=== PATIENT | male | born 1960 | race Caucasian/White ===

== ENCOUNTER → 2017-04-15 | Outpatient (CLI) | payer BC ==
[2017-04-15 10:10] LABS: CH 36.6; HCT 41.9 % (39.0-53.0); HDW 2.39; HGB 14.8 gm/dL (13.0-17.5); MCH 36.9 pg (25.0-35.0); MCHC 35.2 g/dL (31.0-37.0); MCV 104.9 fL (80.0-100.0); Macrocytosis Slight; RDW 12.8 % (11.5-15.5)
[2017-04-15 10:22] LABS: ALT 55 U/L (21-72); AST 53 U/L (17-59); Alkaline Phosphatase 76 U/L (38-126); Anion Gap 12 mmol/L; Blood Urea Nitrogen 17 mg/dL (9-20); Calcium 9.7 mg/dL (8.4-10.2); Carbon Dioxide 26 mmol/L (22-30); Chloride 103 mmol/L (98-107); Cholesterol 201 mg/dL (<200); Glucose 193 mg/dL (74-99); HDL Cholesterol 49 mg/dL (40-60); Non-African American GFR(MDRD) >60 (>60 ml/min/1.73 sqM); Potassium 4.6 mmol/L (3.5-5.1); Sodium 141 mmol/L (137-145); Total Bilirubin 1.1 mg/dL (0.2-1.3); Total Protein 7.9 g/dL (6.3-8.2); Triglycerides 212 mg/dL (<150)
[2017-04-15 14:09] LABS: Hemoglobin A1C 8.1 % (4.2-6.1)
== END | disposition home or self-care (01) ==
LOC: LABMAIN 09:31
PROVIDERS: ATTEND Internal Medicine
DX: Z00.00 Encounter for general adult medical examination without abnormal findings (principal); I25.10 Atherosclerotic heart disease of native coronary artery without angina pectoris; E11.9 Type 2 diabetes mellitus without complications; Z13.220 Encounter for screening for lipoid disorders; Z13.29 Encounter for screening for other suspected endocrine disorder
CPT/HCPCS: 36415; 80053; 80061; 83036; 84439; 84443; 85027

== ENCOUNTER 2018-08-29 20:12 | Emergency (ER) | payer BC ==
[2018-08-29 20:30] VITALS: PULSE 87
--- NOTE | 2018-08-29 21:16 | ED ---
Chest Pain HPI - General Chief Complaint: Recheck/Abnormal Lab/Rx Stated Complaint: Low BP, Back/Arm Pain Time Seen by Provider: 08/29/18 21:08 Source: patient Mode of arrival: ambulatory Limitations: no limitations - History of Present Illness Initial Comments: This patient is a 58-year-old man who reportedly had history of HI about 8 years ago, who presents with complaint of left shoulder blade, burning type pain. He states that this is been going on intermittently for probably 6 months. He saw his physician, Dr. Carrion today, and she recommended that he be seen in the emergency department. The patient states that the symptoms with his HI were different, namely he had substernal pressure pain. The patient has not had any anginal type symptoms, including no diaphoresis, dyspnea, nausea or vomiting, palpitations, lightheadedness or syncope. Patient denies leg pain or swelling. Remainder of the review of systems negative other than he states that he does have body aches daily. MD Complaint: other (Left shoulder pain) Onset/Timin -: month(s) Pain Location: other (Shoulder) Pain Radiation: none Severity: moderate Quality: other (Burning) Consistency: intermittent Improves With: nothing Worsens With: nothing Treatments Prior to Arrival: none - Related Data Home Medications Medication Instructions Recorded Confirmed Aspirin [Adult Low Dose Aspirin EC] 81 mg PO DAILY 08/29/18 08/29/18 Atorvastatin Calcium [Lipitor] 10 mg PO DAILY 08/29/18 08/29/18 Clopidogrel Bisulfate [Plavix] 75 mg PO DAILY 08/29/18 08/29/18 Ibuprofen [Motrin Ib] 800 mg PO Q6H PRN 08/29/18 08/29/18 Insulin Aspart [Novolog] See Protocol SQ TID 08/29/18 08/29/18 Insulin Glargine [Lantus] 20 unit SQ HS 08/29/18 08/29/18 Insulin Glargine [Lantus] 40 unit SQ QAM 08/29/18 08/29/18 Lisinopril [Zestril] 10 mg PO DAILY 08/29/18 08/29/18 Metoprolol Tartrate [Lopressor] 50 mg PO DAILY 08/29/18 08/29/18 Multivitamins, Thera [Multivitamin 1 tab PO DAILY 08/29/18 08/29/18 (formulary)] [place]-3 Fatty Acids/Fish Oil [Fish 1 cap PO DAILY 08/29/18 08/29/18 Oil 1,000 mg Softgel] Pantoprazole Sodium [Protonix] 40 mg PO DAILY 08/29/18 08/29/18 Allergies Allergy/AdvReac Type Severity Reaction Status Date / Time No Known Allergies Allergy Verified 08/29/18 20:30 Review of Systems ROS Statement: Those systems with pertinent positive or pertinent negative responses have been documented in the HPI. ROS Other: All systems not noted in ROS Statement are negative. Constitutional: Denies: fever, chills, weakness Respiratory: Denies: cough, dyspnea Cardiovascular: Reports: as per HPI. Denies: chest pain, palpitations, orthopnea, edema, syncope Gastrointestinal: Denies: abdominal pain, nausea, vomiting, diarrhea Musculoskeletal: Reports: as per HPI, myalgia. Denies: back pain, joint swelling, arthralgia Skin: Denies: rash Neurological: Denies: headache, weakness, numbness, paresthesias EKG Findings - EKG Results: EKG: interpreted by KARISHMA, sinus rhythm (Rate 82 bpm), normal axis, normal QRS, normal ST/T, no acute changes - HI, Pacemaker, Normal: Normal tracing: normal tracing Past Medical History Past Medical History: Coronary Artery Disease (CAD), Diabetes Mellitus, Hyperlipidemia, Hypertension, Myocardial Infarction (HI) History of Any Multi-Drug Resistant Organisms: None Reported Past Surgical History: Heart Catheterization With Stent Past Psychological History: No Psychological Hx Reported Smoking Status: Current every day smoker Past Alcohol Use History: Daily Past Drug Use History: None Reported General Exam Limitations: no limitations General appearance: alert, in no apparent distress Head exam: Present: atraumatic, normocephalic Eye exam: Present: normal appearance. Absent: scleral icterus, conjunctival injection ENT exam: Present: normal oropharynx Neck exam: Present: normal inspection, full ROM Respiratory exam: Present: normal lung sounds bilaterally. Absent: respiratory distress, wheezes, rales, rhonchi, stridor Cardiovascular Exam: Present: regular rate, normal rhythm, normal heart sounds. Absent: systolic murmur, diastolic murmur, rubs, gallop GI/Abdominal exam: Present: soft. Absent: distended, tenderness, guarding, rebound, rigid, mass Extremities exam: Present: normal inspection, normal capillary refill. Absent: pedal edema, calf tenderness Back exam: Present: normal inspection. Absent: CVA tenderness (R), CVA tenderness (L) Neurological exam: Present: alert Skin exam: Present: warm, dry, intact, normal color. Absent: rash Course Vital Signs 08/29/18 08/29/18 20:26 23:00 Temperature 98.0 F 97 F L Pulse Rate 87 87 Respiratory 20 18 Rate Blood Pressure 119/69 124/74 O2 Sat by Pulse 97 97 Oximetry Chest Pain MDM - [facility] Patient's 58-year-old man with 6 months of left scapular burning, intermittent pains. His workup here is negative. Dr. Carrion had sent him here to have initial workup, followed by admission for cardiology and probably stress test. Discussed this with the patient who at this point is refusing, stating that he wants follow up as outpatient. Discussed risks and benefits and patient still set on going home. Disposition Clinical Impression: Chest pain Disposition: Left Against Medical Advice Condition: Fair Instructions: Chest Pain (DC) Is patient prescribed a controlled substance at d/c from ED?: No Referrals: Justina Carrion MD [Primary Care Provider] - 1-2 days Angela Saavedra MD [STAFF PHYSICIAN] - 1-2 days
[2018-08-29 21:37] LABS: Basophils # (A) 0.1 k/uL (0-0.2); Basophils % (A) 1 %; Eosinophils # (A) 0.3 k/uL (0-0.7); Eosinophils % (A) 4 %; HCT 37.1 % (39.0-53.0); HGB 12.9 gm/dL (13.0-17.5); Lymphocytes # (A) 2.3 k/uL (1.0-4.8); Lymphocytes % (A) 29 %; MCH 35.8 pg (25.0-35.0); MCHC 34.7 g/dL (31.0-37.0); MCV 103.1 fL (80.0-100.0); Macrocytosis Slight; Mean Platelet Volume 7.5; Monocytes # (A) 0.5 k/uL (0-1.0); Monocytes % (A) 7 %; Neutrophils # (A) 4.4 k/uL (1.3-7.7); Neutrophils % (A) 56 %; Platelet Count 245 k/uL (150-450); RDW 12.6 % (11.5-15.5); WBC 7.9 k/uL (3.8-10.6)
--- NOTE | 2018-08-29 21:45 | XR ---
EXAMINATION TYPE: XR chest 1V portable DATE OF EXAM: 08/29/2018 COMPARISON: 01/08/2014 HISTORY: Low blood pressure. Back pain TECHNIQUE: Single frontal view of the chest is obtained. FINDINGS: There is elevated right diaphragm. Lungs are clear of consolidation. There is no heart diandra lure. I see no pleural effusion. IMPRESSION: Chronic elevated right diaphragm unchanged. This could relate to paralysis.
[2018-08-29 21:46] LABS: Albumin 4.1 g/dL (3.5-5.0); Calcium 9.3 mg/dL (8.4-10.2); Total Bilirubin 0.4 mg/dL (0.2-1.3); Total Protein 7.1 g/dL (6.3-8.2)
[2018-08-29 21:51] LABS: Creatine Kinase 177 U/L (55-170); Partial Thromboplastin Time 22.5 sec (22.0-30.0); Prothrombin Time 10.1 sec (9.0-12.0)
[2018-08-29 22:04] LABS: Creatine Kinase MB 3.6 ng/mL (0.0-2.4); Troponin I <0.012 ng/mL (0.000-0.034)
[2018-08-29 23:06] VITALS: BP 124/74; RESP 18; TEMP 97
== END 2018-08-29 23:00 | disposition left against medical advice (07) ==
LOC: EC 20:12
DX: R07.9 Chest pain, unspecified (principal); M25.512 Pain in left shoulder; I25.10 Atherosclerotic heart disease of native coronary artery without angina pectoris; E11.9 Type 2 diabetes mellitus without complications; E78.5 Hyperlipidemia, unspecified; I25.2 Old myocardial infarction; I10 Essential (primary) hypertension; F17.200 Nicotine dependence, unspecified, uncomplicated; Z95.5 Presence of coronary angioplasty implant and graft; Z79.02 Long term (current) use of antithrombotics/antiplatelets; Z79.4 Long term (current) use of insulin; Z79.82 Long term (current) use of aspirin; Z79.899 Other long term (current) drug therapy
CPT/HCPCS: 36415; 71045; 80053; 82550; 82553; 83735; 84484; 85025; 85610; 85730; 93005; 99284

== ENCOUNTER → 2018-10-17 | Outpatient (CLI) | payer BC ==
[2018-10-17 16:36] LABS: HCT 38.6 % (39.0-53.0); HGB 12.7 gm/dL (13.0-17.5); MCH 35.1 pg (25.0-35.0); MCHC 32.9 g/dL (31.0-37.0); MCV 106.5 fL (80.0-100.0); Macrocytosis Moderate; Mean Platelet Volume 6.9; Platelet Count 240 k/uL (150-450); RBC 3.62 m/uL (4.30-5.90); RDW 13.1 % (11.5-15.5); WBC 7.6 k/uL (3.8-10.6)
[2018-10-17 16:37] LABS: Anion Gap 8 mmol/L; Blood Urea Nitrogen 25 mg/dL (9-20); Carbon Dioxide 26 mmol/L (22-30); Chloride 106 mmol/L (98-107); Potassium 4.8 mmol/L (3.5-5.1); Sodium 140 mmol/L (137-145)
== END | disposition home or self-care (01) ==
LOC: LABPAT 15:34
PROVIDERS: ATTEND Internal Medicine Interventional Cardiology
DX: Z01.812 Encounter for preprocedural laboratory examination (principal); I10 Essential (primary) hypertension; E78.1 Pure hyperglyceridemia; I25.10 Atherosclerotic heart disease of native coronary artery without angina pectoris
CPT/HCPCS: 36415; 80051; 82565; 84520; 85027

== ENCOUNTER 2018-10-25 06:09 | Day surgery (SDC) | payer BC ==
[~2018-10-25 06:09] MED LIST: ALPRAZolam 0.25 MG TAB PO PRN; ASPIRIN 325 MG TAB PO ONE; NITROGLYCERIN SL TABS 0.4 MG TAB SUBLINGUAL PRN; SODIUM CHLORIDE 0.9% 1,000 ML in EMPTY BAG 1 BAG IV ONE
[2018-10-25 06:55] LABS: Glucose,Whole Blood 175 mg/dL (75-99)
[2018-10-25] MEDS ORDERED: fentaNYL (PF) 50 MCG/ML 2 ML AMP ONE (07:24)
[2018-10-25] MEDS ORDERED: VERAPAMIL 2.5 MG/ML 2 ML AMP ONE (07:24)
[2018-10-25] MEDS ORDERED: HEPARIN SODIUM 1,000 UN/ML (10ML VL) ONE (07:24)
[2018-10-25] MEDS ORDERED: LIDOCAINE 1% INJ 10MG/ML (20 ML MDV) ONE (07:24)
[2018-10-25] MEDS ORDERED: fentaNYL (PF) 50 MCG/ML 2 ML AMP IVP ONE (07:59)
[2018-10-25] MEDS ORDERED: LIDOCAINE 1% (PF) 10MG/ML VIAL SQ ONE (07:59)
[2018-10-25] MEDS ORDERED: VERAPAMIL SYRINGE (5 MG/10 ML) INTRAARTER ONE (08:02)
[2018-10-25] MEDS ORDERED: NITROGLYCERIN 1000MCG/10ML SYRINGE INTRACORON ONE (08:15)
[2018-10-25] MEDS ORDERED: BIVALIRUDIN BOLUS 250 MG/50 ML IV ONE (08:18)
[2018-10-25] MEDS ORDERED: BIVALIRUDIN 250 MG in SODIUM CHLORIDE 0.9% 50 ML IV ONE ×2 (08:19→09:10)
[2018-10-25] MEDS ORDERED: IOPAMIDOL-370 125ML BTL INJ ONE (08:19)
[2018-10-25] MEDS ORDERED: MIDAZOLAM 2 MG/2 ML VIAL ONE (08:20)
[2018-10-25] MEDS ORDERED: MIDAZOLAM 2 MG/2 ML VIAL IV ONE (08:21)
[2018-10-25] MEDS ORDERED: IOPAMIDOL-370 100ML BTL INJ ONE ×2 (09:24→09:32)
[2018-10-25] MEDS ORDERED: ZOLPIDEM 5 MG TAB PO PRN (09:48)
[2018-10-25] MEDS ORDERED: ATROPINE SULFATE 0.1 MG/ML 10ML SYRINGE IV PRN (09:48)
[2018-10-25] MEDS ORDERED: NITROGLYCERIN SL TABS 0.4 MG TAB SUBLINGUAL PRN (09:48)
[2018-10-25] MEDS ORDERED: MAG HYDROX/AL HYDROX/SIMETH 30 ML CUP PO PRN (09:48)
[2018-10-25] MEDS ORDERED: RX INFO: IV CONTRAST WAS GIVEN 1 EACH MISC MISCELLANE PRN (09:48)
[2018-10-25] MEDS ORDERED: SODIUM CHLORIDE 0.9% 1,000 ML IV SCH (10:00)
--- NOTE | 2018-10-25 10:08 | PTCA ---
PERCUTANEOUSTRANS CORORONARY ANGIOGRAPHY Mr. Key is a 58-year-old male with a known history of coronary disease who recently had an myocardial perfusion imaging, revealed evidence of lateral wall ischemia, underwent cardiac catheterization, was found to have critical stenosis involving the left circumflex. In view of that, recommendation was made regarding angioplasty and stenting. The procedures, risks and complications were discussed with the patient who is in full understanding and agreement. PROCEDURE: A 6-Bengali FR4 guiding catheter introduced in the system. After cannulating the left main, a 0.014 balanced medium weight J-wire was advanced across the lesion and positioned in the distal third obtuse marginal branch. Subsequently, a 2.25 x 12 mm Trek balloon was advanced and one inflation was done at 10 atmospheres. Following that, the balloon was removed and a whisper J-wire was advanced next to the first wire in a maritza fashion. Subsequently, attempt to advance a 2.5 x 18 mm Xience Arlene stent, 2.5 x 15 mm CR Xience stent were unsuccessful to cross the proximal stent because of the tortuosity at that point. The BMW wire was removed and a GuideLiner was advanced and in spite of the GuideLiner an attempt to advance the 2.5 x 15 mm Xience Arlene stent were unsuccessful. At that time, attempt to advance a 2.0 x 15 mm Resolute Neftali and a 2.5 x 12 mm Resolute Neftali were unsuccessful. Those stents were removed and attempt to advance a 2.5 x 8 mm Xience CR stent was unsuccessful as well. At that point, the stent was removed and a 2.75 x 8 mm NC Trek balloon was advanced and one inflation in the previous stent was performed. Subsequently, the balloon was removed and attempt to advance the 2.5 x 15 mm Xience Arlene stent were unsuccessful. That stent was removed and subsequently the wire were removed and a whisper J-wire was advanced, positioned distally. Subsequently the guidewire was exchanged over a FineCross to a Mailman after positioning the Mailman distally and removing the FineCross, another whisper J-wire was advanced next to the first one, positioned distally and a 2.5 x 50 mm Xience Arlene was advanced over the whisper J-wire and positioned distally, the Mailman wire was removed and the stent was deployed and post dilated at 14 atmospheres. After the last inflation, after appropriate wait, the balloon and the guidewire were withdrawn back in the guiding catheter. Images were obtained and repeated. Those images reveal stable successful stenting. At that point, the guiding catheter, the balloon and the guidewire were removed. The sheath was removed. Hemostasis was obtained with deployment of a TR band. There was no immediate complication. Patient is returned to his room in stable condition. Of note, the patient had no chest discomfort or significant EKG changes with the inflations. He received Angiomax per protocol. RESULTS: Successful stenting of the distal left circumflex and proximal third obtuse marginal branch with reduction of stenosis from 99% to 0%. RECOMMENDATION: Patient be continued on aspirin, Plavix, statin. The importance of dual antiplatelet treatment was discussed with the patient and his family who are in full understanding and agreement. Duration of the procedure is 1 hour, 33 minutes. ELDON / NANON: [id number] /
--- NOTE | 2018-10-25 10:08 | CC ---
CARDIAC CATHETERIZATION REPORT Mr. Key is a 58-year-old male with known history of coronary artery disease, status post stenting of left circumflex in 2010, history of hypertension, hyperlipidemia, diabetes mellitus, and a prior history of smoking, who had recently underwent a myocardial perfusion imaging that revealed evidence of lateral wall ischemia. In view of that, recommendation was made regarding cardiac catheterization. The procedure as well as the risks and the complications were discussed with the patient who is in full understanding and agreement. PROCEDURE: Patient was brought to the cardiac cath lab radiology technologist in a fasting semi-sedated state after receiving fentanyl and Benadryl and achieving moderate conscious sedated state. Using Xylocaine anesthesia in the Seldinger technique, a 6-Nigerian sheath was introduced in the right radial artery. Selective right and left coronary angiography was performed using 5- Nigerian 3.5 bend right and left Dave catheters. Multiple views of coronary artery including hemiaxial views were obtained. The 5-Nigerian right Dave catheter was used to cross the aortic valve and pressures were calculated. Following that, catheters were removed. Images were reviewed. FINDINGS: FLUOROSCOPY: There is calcification involving all the coronary arteries. LEFT MAIN: This is a large-sized vessel short in distance bifurcating left circumflex, left anterior descending artery. Left main coronary artery has no evidence of high- grade stenosis. LEFT ANTERIOR DESCENDING ARTERY: This is a large-sized vessel reaching to the apex that down in the distal third and gives rise to 2 diagonal branches. After the takeoff of the diagonal branch, there is a tubular lesion with area of stenosis up to 60% to 70%, but the vessel beyond that is small in caliber. The proximal is about 20% plaque. LEFT CIRCUMFLEX: This is a nondominant vessel giving rise to 3 obtuse marginal branches. The first one is small in caliber and has a diffuse intimal disease. The mid segment of the circumflex stented and is patent. The second obtuse marginal branch is small in caliber and has an 80% stenosis at the takeoff. After the takeoff of the second obtuse marginal branch and extending in the third obtuse marginal branch, there is an area of stenosis up to 99%. The rest of the vessel has no high-grade stenosis. RIGHT CORONARY ARTERY: This is a dominant vessel large in caliber bifurcating distally PDA and posterolateral segment and branches calcified. The distal right coronary artery has diffuse intimal disease with area of stenosis of 40% to 50% without any evidence of high-grade stenosis. LEFT VENTRICULOGRAM: Left ventriculogram is not performed. HEMODYNAMICS: There was no gradient across the aortic valve. The left ventricular end- diastolic pressure was 14 to 18 mmHg. CONCLUSION: 1. Critical stenosis involving the distal left circumflex and third obtuse marginal branch. 2. Moderate significant disease in the mid to distal left anterior descending artery in a small calcified segment. 3. Mild to moderate disease in the distal right coronary artery. RECOMMENDATION: In view of finding anatomy, I recommend proceeding with angioplasty and stenting of the left circumflex. The procedure as well as the risks and the complications were discussed with the patient who is in full understanding and agreement. MMODL / IJN: [id number] /
[2018-10-25 10:12] VITALS: BMI 26.7
[2018-10-25 11:31] LABS: Glucose,Whole Blood 188 mg/dL (75-99)
[2018-10-25] MEDS: INSULIN ASPART 100 UNIT/ML 1 ML 10 ML VIAL SQ SCH ×3 (13:00→22:04)
[2018-10-25] MEDS ORDERED: INSULIN DETEMIR 100 UNIT/ML 10 ML VIAL SQ ONE (13:17)
[2018-10-25 17:01] LABS: Glucose,Whole Blood 372 mg/dL (75-99)
[2018-10-25 20:55] LABS: Glucose,Whole Blood 291 mg/dL (75-99)
[2018-10-26 05:48] LABS: Glucose,Whole Blood 255 mg/dL (75-99)
[2018-10-26 06:57] LABS: Anion Gap 9 mmol/L; Blood Urea Nitrogen 22 mg/dL (9-20); Calcium 9.4 mg/dL (8.4-10.2); Carbon Dioxide 24 mmol/L (22-30); Chloride 102 mmol/L (98-107); Glucose 228 mg/dL (74-99); Potassium 4.8 mmol/L (3.5-5.1); Sodium 135 mmol/L (137-145)
[2018-10-26] MEDS: INSULIN ASPART 100 UNIT/ML 1 ML 10 ML VIAL SQ SCH (06:59)
[2018-10-26 07:26] VITALS: BP 167/79; PULSE 99; RESP 16; TEMP 98
[2018-10-26] MEDS ORDERED: PANTOPRAZOLE 40 MG TABLET PO SCH (07:30)
--- NOTE | 2018-10-26 08:51 | PN ---
PROGRESS NOTE Mr. Key is a 58-year-old male with known history of coronary artery disease who presented with an abnormal myocardial perfusion imaging, underwent cardiac catheterization, was found to have significant stenosis involving the left circumflex underwent stenting of that vessel. He is doing well this morning, ambulating without difficulty. Denying any chest pain. No dizziness. No palpitation. No nausea. He continues to be on aspirin 81 mg daily, Lipitor 80 mg daily, Plavix 75 mg daily, insulin, Zestril 10 mg daily, metoprolol tartrate 50 mg daily. PHYSICAL EXAMINATION: Blood pressure 149/70 with the heart rate in the 90s. LUNGS: Clear. HEART: Regular rate and rhythm. S1, S2. No S3. No rub. ABDOMEN: Soft, nontender. EXTREMITIES: No edema. Right radial pulse intact. LAB DATA: Lab data revealed BUN and creatinine 22 and 0.75. Potassium 4.8. EKG revealed no acute changes. IMPRESSION: 1. Coronary artery disease, status post stenting of the left circumflex, stable. 2. Hypertension. 3. Hyperlipidemia. 4. Diabetes mellitus. RECOMMENDATION: Patient should be able to be discharged home today and followed as an outpatient. MMODL / IJN: [id number] /
[2018-10-26] MEDS ORDERED: METOPROLOL TARTRATE 50 MG TAB PO SCH ×2 (09:00)
[2018-10-26] MEDS ORDERED: CLOPIDOGREL 75 MG TAB PO SCH (09:00)
[2018-10-26] MEDS ORDERED: INSULIN DETEMIR 100 UNIT/ML 10 ML VIAL SQ SCH ×2 (09:00→21:00)
[2018-10-26] MEDS ORDERED: ASPIRIN 81 MG PO SCH (09:00)
[2018-10-26] MEDS ORDERED: LISINOPRIL 10 MG TAB PO SCH (09:00)
[2018-10-26] MEDS ORDERED: ATORVASTATIN 80 MG TAB PO SCH (09:00)
== END 2018-10-26 10:05 | disposition home or self-care (01) ==
LOC: CATHCVL 06:09 → 3SCARD 09:30 → CATHCVL 10-26 10:05
PROVIDERS: ATTEND Internal Medicine Interventional Cardiology
DX: I25.10 Atherosclerotic heart disease of native coronary artery without angina pectoris (principal); R94.39 Abnormal result of other cardiovascular function study; E11.9 Type 2 diabetes mellitus without complications; I10 Essential (primary) hypertension; E78.2 Mixed hyperlipidemia; I25.2 Old myocardial infarction; Z95.5 Presence of coronary angioplasty implant and graft; Z79.02 Long term (current) use of antithrombotics/antiplatelets; Z79.82 Long term (current) use of aspirin; Z79.4 Long term (current) use of insulin; Z79.899 Other long term (current) drug therapy; Z72.0 Tobacco use
CPT/HCPCS: 93458; 85347; 80048; C9600; C9601; C1769 ×5; C1887 ×3; C1894; C1725 ×2; C1874 ×2; J2250; J3010; J0583; J2001; Q9967 ×2

== ENCOUNTER → 2019-01-19 | Outpatient (CLI) | payer BC ==
[2019-01-19 18:02] LABS: Albumin 4.7 g/dL (3.80-4.90); Albumin/Globulin Ratio 1.88 (1.60-3.17); Anion Gap 5.9 mmol/L (4.00-12.00); Calcium 9.3 mg/dL (8.7-10.3); Carbon Dioxide 27.1 mmol/L (21.6-31.8); Globulin 2.5 g/dL (1.6-3.3); LDL Cholesterol,Calculated 32.4 mg/dL (0.0-131.0); Potassium 4.5 mmol/L (3.5-5.5); Total Bilirubin 0.6 mg/dL (0.3-1.2); Total Protein 7.2 g/dL (6.2-8.2); VLDL Calculation 57.6 mg/dL (5.00-40.00)
== END ==
LOC: LABWHC1 08:24
PROVIDERS: ATTEND Nurse Practitioner Adult Health
DX: E78.2 Mixed hyperlipidemia (principal); I25.10 Atherosclerotic heart disease of native coronary artery without angina pectoris
CPT/HCPCS: 36415; 80053; 80061

== ENCOUNTER → 2019-04-26 | Outpatient (CLI) | payer BC ==
--- NOTE | 2019-04-26 16:53 | XR ---
EXAMINATION TYPE: XR chest 2V DATE OF EXAM: 04/26/2019 COMPARISON: 08/29/2018 TECHNIQUE: PA and lateral views submitted. HISTORY: Cough FINDINGS: Persistent elevated right hemidiaphragm with no pneumothorax or overt failure. Heart size stable. Sub segmental changes right lung base stable. Hypertrophic and degenerative change of the spine. IMPRESSION: 1. Right basilar linear atelectasis favored over pneumonia given the right hemidiaphragm elevation. C orrelate for phrenic nerve palsy.
== END ==
LOC: RADXRYALE 14:27
PROVIDERS: ATTEND Internal Medicine
DX: J98.11 Atelectasis (principal); R91.8 Other nonspecific abnormal finding of lung field
CPT/HCPCS: 71046

== ENCOUNTER → 2020-04-20 | Outpatient (CLI) | payer BC ==
--- NOTE | 2020-04-20 08:52 | XR ---
EXAMINATION TYPE: XR shoulder complete RT DATE OF EXAM: 04/20/2020 COMPARISON: NONE HISTORY: Pain TECHNIQUE: Three views are submitted. FINDINGS: The osseous structures are intact. There is no acute fracture or dislocation. There is narrowing of the AC joint. Vague density adjacent to the superior glenoid. Nonspecific. IMPRESSION: 1. AC joint arthropathy. Vague density adjacent to the superior margin of the glenoid could be relate d to chronic labral injury. Recommend follow-up MRI.
[2020-04-20 10:53] LABS: Basophils # (A) 0.1 k/uL (0-0.2); Basophils % (A) 1 %; Eosinophils # (A) 0.3 k/uL (0-0.7); Eosinophils % (A) 2 %; HCT 42.5 % (39.0-53.0); Lymphocytes # (A) 2.3 k/uL (1.0-4.8); Lymphocytes % (A) 21 %; MCH 33.6 pg (25.0-35.0); MCHC 32.8 g/dL (31.0-37.0); MCV 102.3 fL (80.0-100.0); Macrocytosis Slight; Mean Platelet Volume 7.5; Monocytes # (A) 0.5 k/uL (0-1.0); Monocytes % (A) 5 %; Neutrophils # (A) 7.4 k/uL (1.3-7.7); Neutrophils % (A) 70 %; Platelet Count 255 k/uL (150-450); RBC 4.15 m/uL (4.30-5.90); RDW 12.5 % (11.5-15.5); WBC 10.7 k/uL (3.8-10.6)
[2020-04-20 12:04] LABS: ALT 20 U/L (4-49); AST 32 U/L (17-59); African American GFR (CKD) >90 (>60 ml/min/1.73 sqM); Albumin 4.6 g/dL (3.5-5.0); Alkaline Phosphatase 71 U/L (38-126); Anion Gap 12 mmol/L; Blood Urea Nitrogen 22 mg/dL (9-20); Calcium 9.5 mg/dL (8.4-10.2); Carbon Dioxide 27 mmol/L (22-30); Chloride 98 mmol/L (98-107); Cholesterol 181 mg/dL (<200); Glucose 130 mg/dL (74-99); HDL Cholesterol 44 mg/dL (40-60); Non-African American GFR(CKD) >90 (>60 ml/min/1.73 sqM); Potassium 4.2 mmol/L (3.5-5.1); Sodium 137 mmol/L (137-145); Total Bilirubin 0.9 mg/dL (0.2-1.3); Total Protein 7.9 g/dL (6.3-8.2); Triglycerides 427 mg/dL (<150)
[2020-04-20 18:59] LABS: Urine Creatinine 423.6 mg/dL
[2020-04-20 20:31] LABS: Hemoglobin A1C 9.1 % (4.0-6.0)
== END | disposition home or self-care (01) ==
LOC: RADXRMAIN 08:26
PROVIDERS: ATTEND Internal Medicine
DX: M12.811 Other specific arthropathies, not elsewhere classified, right shoulder (principal); R93.7 Abnormal findings on diagnostic imaging of other parts of musculoskeletal system; I10 Essential (primary) hypertension; E78.00 Pure hypercholesterolemia, unspecified; E11.9 Type 2 diabetes mellitus without complications
CPT/HCPCS: 36415; 80053; 80061; 82043; 82570; 83036; 85025

== ENCOUNTER 2020-06-07 13:45 | Emergency (ER) | payer BC ==
[2020-06-07 13:49] VITALS: TEMP 98.2
[2020-06-07] MEDS ORDERED: LIDOCAINE 5% PATCH TOPICAL STA (14:21)
[2020-06-07] MEDS ORDERED: CYCLOBENZAPRINE 10 MG TAB PO STA (14:21)
[2020-06-07] MEDS ORDERED: KETOROLAC 30 MG/ML 1 ML VIAL IM STA (14:21)
--- NOTE | 2020-06-07 14:26 | ED ---
Back Pain [facility] - General Chief Complaint: Back Pain/Injury Stated Complaint: Back pain Time Seen by Provider: 06/07/20 14:04 Source: patient Limitations: no limitations - History of Present Illness Initial Comments: Patient is a 52-year-old male presenting to emergency Department with a chief complaint of low back pain. Patient states approximately one month ago he "tweaked his back" while he was at work. Patient states he was moving a large, heavy object in a twisting motion which caused a sudden onset of his back pain. Patient states the pain has been coming on over the last month, however it has increased over the last week. Patient states most of the pain is located to the left paraspinal region of the lower back and is radiating along the posterior aspect of the left lower extremity to the popliteal region. Patient states she has seen who performed an x-ray of his lower back and told patient that he has "disc problems and arthritis". Patient states he is scheduled to have an MRI in 4 days. Patient states that pain has been increasing severity and is not able to ambulate due to the pain. Patient states the pain is alleviated and a recliner or laying position. He denies any saddle anesthesia, urinary retention with overflow incontinence or bowel incontinence. Denies sudden unexplained weight loss, night sweats. - Related Data Home Medications Medication Instructions Recorded Confirmed Aspirin [Adult Low Dose Aspirin EC] 81 mg PO DAILY 08/29/18 10/25/18 Clopidogrel Bisulfate [Plavix] 75 mg PO DAILY 08/29/18 10/25/18 Insulin Aspart [NovoLOG] See Protocol SQ TID 08/29/18 10/25/18 Insulin Glargine [Lantus] 20 unit SQ HS 08/29/18 10/25/18 Insulin Glargine [Lantus] 40 unit SQ QAM 08/29/18 10/25/18 Lisinopril [Zestril] 10 mg PO DAILY 08/29/18 10/25/18 Multivitamins, Thera [Multivitamin 1 tab PO DAILY 08/29/18 10/25/18 (formulary)] [place]-3 Fatty Acids/Fish Oil [Fish 1 cap PO DAILY 08/29/18 10/25/18 Oil 1,000 mg Softgel] Pantoprazole Sodium [Protonix] 40 mg PO DAILY 08/29/18 10/25/18 Previous Rx's Medication Instructions Recorded Atorvastatin [Lipitor] 80 mg PO DAILY #90 tab 10/26/18 Metoprolol Tartrate [Lopressor] 50 mg PO BID #180 tab 10/26/18 Nitroglycerin Sl Tabs [Nitrostat] 0.4 mg SUBLINGUAL Q5M PRN #25 tab 10/26/18 Cyclobenzaprine [Flexeril] 10 mg PO TID PRN #15 tab 06/07/20 Lidocaine 5% Patch [Lidoderm] 1 patch TOPICAL DAILY #6 patch 06/07/20 Allergies Allergy/AdvReac Type Severity Reaction Status Date / Time No Known Allergies Allergy Verified 06/07/20 13:50 Review of Systems ROS Statement: Those systems with pertinent positive or pertinent negative responses have been documented in the HPI. ROS Other: All systems not noted in ROS Statement are negative. Past Medical History Past Medical History: Coronary Artery Disease (CAD), Diabetes Mellitus, Hyperlipidemia, Hypertension, Myocardial Infarction (VT) Last Myocardial Infarction Date:: 2009 History of Any Multi-Drug Resistant Organisms: None Reported Past Surgical History: Heart Catheterization With Stent Additional Past Surgical History / Comment(s): ANAL FISSURE REPAIR. COLONOSCOPY Past Anesthesia/Blood Transfusion Reactions: No Reported Reaction Date of Last Stent Placement:: 2009 Past Psychological History: No Psychological Hx Reported Smoking Status: Current every day smoker Past Alcohol Use History: Occasional Past Drug Use History: None Reported - Past Family History Father Family Medical History: Cancer Additional Family Medical History / Comment(s): PANCREATIC General Exam Limitations: no limitations General appearance: alert, in no apparent distress Head exam: Present: atraumatic, normocephalic, normal inspection Eye exam: Present: normal appearance, PERRL, EOMI Pupils: Present: normal accommodation ENT exam: Present: normal exam, normal oropharynx, mucous membranes moist, TM's normal bilaterally, normal external ear exam Neck exam: Present: normal inspection, full ROM. Absent: tenderness Respiratory exam: Present: normal lung sounds bilaterally. Absent: respiratory distress, wheezes, rales Cardiovascular Exam: Present: regular rate, normal rhythm, normal heart sounds GI/Abdominal exam: Present: soft. Absent: distended, tenderness, guarding Extremities exam: Present: normal inspection, full ROM, normal capillary refill. Absent: tenderness Back exam: Present: normal inspection, full ROM, tenderness, paraspinal tenderness (Left paraspinal tenderness along the posterior aspect of the left lower extremity to popliteal region.), other (Positive leg raise test in the left lower extremity.). Absent: CVA tenderness (R), CVA tenderness (L), muscle spasm, vertebral tenderness Neurological exam: Present: alert, oriented X3 Psychiatric exam: Present: normal affect, normal mood Skin exam: Present: warm, dry, intact, normal color Course Vital Signs 06/07/20 06/07/20 13:47 14:30 Temperature 98.2 F Pulse Rate 91 76 Respiratory 16 18 Rate Blood Pressure 142/86 147/87 O2 Sat by Pulse 97 97 Oximetry Medical Decision Making - Medical Decision Making Patient is a 52-year-old male presenting to emergency Department with chief complaint of back pain. Patient is currently seeing an software quality specialist for his back pain is scheduled to have an MRI in 4 days. On exam patient has sciatica type symptoms going down his left lower extremity. No cauda equina. No red flags. Patient given Toradol, Flexeril and a Lidoderm patch. Reevaluation patient reports improvement of symptoms. Patient to be discharged with a Tylenol 3 starter pack Flexeril and Lidoderm prescription. Patient advised not to drive or operative heavy machinery when taking the Tylenol 3 and Flexeril. Strict return parameters were thoroughly discussed the patient was understanding and agreeable. Case discussed with physician. Disposition Clinical Impression: Mechanical back pain, Strain of lumbar region Disposition: HOME SELF-CARE Condition: Stable Instructions (If sedation given, give patient instructions): Acute Low Back P ain (ED) Additional Instructions: Take prescribed medication as directed. Do not drive or operate heavy machinery when taking the medication. Follow-up with the software quality specialist. Return to emergency department if symptoms worsen. Prescriptions: Cyclobenzaprine [Flexeril] 10 mg PO TID PRN #15 tab PRN Reason: Muscle Spasm Lidocaine 5% Patch [Lidoderm] 1 patch TOPICAL DAILY #6 patch Is patient prescribed a controlled substance at d/c from ED?: No Referrals: Justina Carrion MD [Primary Care Provider] - 1-2 days Time of Disposition: 15:22
[2020-06-07 14:31] VITALS: RESP 18
[2020-06-07] MEDS ORDERED: ACET/COD 300 MG/30 MG STARTER PACK 6 TAB BTL PO STA (15:20)
[2020-06-07 15:39] VITALS: BP 160/86; PULSE 66
== END 2020-06-07 15:40 | disposition home or self-care (01) ==
LOC: EC 13:45
DX: S39.012A Strain of muscle, fascia and tendon of lower back, initial encounter (principal); M54.32 Sciatica, left side; E11.9 Type 2 diabetes mellitus without complications; I25.10 Atherosclerotic heart disease of native coronary artery without angina pectoris; I10 Essential (primary) hypertension; M19.90 Unspecified osteoarthritis, unspecified site; I25.2 Old myocardial infarction; F17.200 Nicotine dependence, unspecified, uncomplicated; Z79.4 Long term (current) use of insulin; Z79.82 Long term (current) use of aspirin; Z79.01 Long term (current) use of anticoagulants; Z79.899 Other long term (current) drug therapy; X50.0XXA Overexertion from strenuous movement or load, initial encounter; Y99.0 Civilian activity done for income or pay
CPT/HCPCS: 96372; 99283; J1885

== ENCOUNTER 2020-11-06 16:02 | Emergency (ER) | payer BC ==
[2020-11-06 16:12] VITALS: TEMP 99
[2020-11-06 16:20] VITALS: RESP 18
[2020-11-06] MEDS ORDERED: HYDROcodone/APAP 5-325MG 1 EACH TAB PO STA (16:53)
--- NOTE | 2020-11-06 16:58 | ED ---
General Adult HPI - General Chief complaint: Neck Pain/Injury Stated complaint: Neck Pain Time Seen by Provider: 11/06/20 16:27 Source: patient Mode of arrival: wheelchair Limitations: no limitations - History of Present Illness Initial comments: Dictation was produced using [employer] dictation software. please excuse any grammatical, word or spelling errors. This patient was cared for during a federal and state declared state of emergency secondary to Covid 19 Chief Complaint: 60-year-old male presents with acute on chronic neck pain History of Present Illness: 60-year-old male who presents today with acute on chronic back pain. Patient initially injured his neck playing football in high school. Since then he's been experiencing neck pain often. He does follow up with Dr. Covarrubias who evaluates him for his pain. MRI performed in May of this year showing degenerative cervical spinal disease along with disc protrusion at C4 to C5. Patient hasn't been given any pain medication that has been adequate according to him. He does take tramadol however does not really provide him any relief. States that he is taking his 's Masterson with symptom relief. Patient has a follow-up appointment with spinal surgeon Dr. Gilman seen in the near future. Patient denies any neurologic symptoms below the neck. Denies any ataxia. No numbness or paresthesias to the arms or legs pain is worse whenever he moves his neck up and down. Denies any trauma The ROS documented in this emergency department record has been reviewed and confirmed by me. Those systems with pertinent positive or negative responses have been documented in the HPI. All other systems are other negative and/or noncontributory. PHYSICAL EXAM: General Impression: Alert and oriented x3, not in acute distress HEENT: Normocephalic atraumatic, extra-ocular movements intact, pupils equal and reactive to light bilaterally, mucous membranes moist. Cardiovascular: Heart regular rate and rhythm Chest: Able to complete full sentences, no retractions, no tachypnea Abdomen: abdomen soft, non-tender, non-distended, no organomegaly Musculoskeletal: Pulses present and equal in all extremities, no peripheral edema Motor: no focal deficits noted Neurological: CN II-XII grossly intact, no focal motor or sensory deficits noted, no clonus, no ataxia Skin: Intact with no visualized rashes Psych: Normal affect and mood ED course: 60-year-old male presents with acute on chronic back pain. As upon arrival are within acceptable limits. Patient does not have any red like symptoms. Presents today with his MRI results from May. [place] results show degenerative cervical spinal disease along with disc protrusion at C4 to C5 level. Physical examination is benign. Patient's reason for coming to the emergency department is for some symptom relief. Have appropriate outpatient follow-up. - Related Data Home Medications Medication Instructions Recorded Confirmed Aspirin [Adult Low Dose Aspirin EC] 81 mg PO DAILY 08/29/18 10/25/18 Clopidogrel Bisulfate [Plavix] 75 mg PO DAILY 08/29/18 10/25/18 Insulin Aspart [NovoLOG] See Protocol SQ TID 08/29/18 10/25/18 Insulin Glargine [Lantus] 20 unit SQ HS 08/29/18 10/25/18 Insulin Glargine [Lantus] 40 unit SQ QAM 08/29/18 10/25/18 Lisinopril [Zestril] 10 mg PO DAILY 08/29/18 10/25/18 Multivitamins, Thera [Multivitamin 1 tab PO DAILY 08/29/18 10/25/18 (formulary)] [place]-3 Fatty Acids/Fish Oil [Fish 1 cap PO DAILY 08/29/18 10/25/18 Oil 1,000 mg Softgel] Pantoprazole Sodium [Protonix] 40 mg PO DAILY 08/29/18 10/25/18 Previous Rx's Medication Instructions Recorded Atorvastatin [Lipitor] 80 mg PO DAILY #90 tab 10/26/18 Metoprolol Tartrate [Lopressor] 50 mg PO BID #180 tab 10/26/18 Nitroglycerin Sl Tabs [Nitrostat] 0.4 mg SUBLINGUAL Q5M PRN #25 tab 10/26/18 Cyclobenzaprine [Flexeril] 10 mg PO TID PRN #15 tab 06/07/20 Lidocaine 5% Patch [Lidoderm] 1 patch TOPICAL DAILY #6 patch 06/07/20 HYDROcodone/APAP 5-325MG [Masterson 1 tab PO Q6HR PRN 3 Days #12 tab 11/06/20 5-325] Allergies Allergy/AdvReac Type Severity Reaction Status Date / Time No Known Allergies Allergy Verified 06/07/20 13:50 Review of Systems ROS Statement: Those systems with pertinent positive or pertinent negative responses have been documented in the HPI. ROS Other: All systems not noted in ROS Statement are negative. Past Medical History Past Medical History: Coronary Artery Disease (CAD), Diabetes Mellitus, Hyperlipidemia, Hypertension, Myocardial Infarction ([place]) Last Myocardial Infarction Date:: 2009 History of Any Multi-Drug Resistant Organisms: None Reported Past Surgical History: Heart Catheterization With Stent Additional Past Surgical History / Comment(s): ANAL FISSURE REPAIR. COLONOSCOPY Past Anesthesia/Blood Transfusion Reactions: No Reported Reaction Date of Last Stent Placement:: 2009 Past Psychological History: No Psychological Hx Reported Smoking Status: Current every day smoker Past Alcohol Use History: Occasional Past Drug Use History: None Reported - Past Family History Father Family Medical History: Cancer Additional Family Medical History / Comment(s): PANCREATIC General Exam Limitations: no limitations Course Vital Signs 11/06/20 11/06/20 16:06 16:19 Temperature 99.0 F Pulse Rate 94 93 Respiratory 16 18 Rate Blood Pressure 83/53 106/65 O2 Sat by Pulse 98 97 Oximetry Disposition Clinical Impression: Neck pain Disposition: HOME SELF-CARE Condition: Good Instructions (If sedation given, give patient instructions): Cervical Strain (ED) Prescriptions: HYDROcodone/APAP 5-325MG [Masterson 5-325] 1 tab PO Q6HR PRN 3 Days #12 tab PRN Reason: Severe Pain Is patient prescribed a controlled substance at d/c from ED?: Yes If prescribed controlled substance>3 days was MAPS reviewed?: Prescribed <3 Days Referrals: Herbert Funk DO [Doctor of Osteopathic Medicine] - 1-2 days Time of Disposition: 16:57
[2020-11-06 16:59] VITALS: BP 105/65; PULSE 80
== END 2020-11-06 17:00 | disposition home or self-care (01) ==
LOC: EC 16:02
DX: M50.30 Other cervical disc degeneration, unspecified cervical region (principal); M50.221 Other cervical disc displacement at C4-C5 level; G89.29 Other chronic pain; I10 Essential (primary) hypertension; E11.9 Type 2 diabetes mellitus without complications; I25.10 Atherosclerotic heart disease of native coronary artery without angina pectoris; I25.2 Old myocardial infarction; F17.200 Nicotine dependence, unspecified, uncomplicated; Z79.02 Long term (current) use of antithrombotics/antiplatelets; Z79.82 Long term (current) use of aspirin; Z79.4 Long term (current) use of insulin; Z79.899 Other long term (current) drug therapy
CPT/HCPCS: 99283

== ENCOUNTER → 2020-12-01 | Outpatient (CLI) | payer BC ==
--- NOTE | 2020-12-02 00:57 | CT ---
EXAMINATION TYPE: CT cervical spine wo con DATE OF EXAM: 12/01/2020 COMPARISON: None HISTORY: Neck and thoracic pain x43 years CT DLP: 517.36 mGycm Automated exposure control for dose reduction was used. Images were obtained from the skull base to T1 vertebra without contrast. There is mild straightening of the cervical spine. There is moderate narrowing with spur formation fr om C5 to the T3 vertebra. There is osteosclerosis. There is no compression fracture. There is mild th e level cervical hypertrophic facet arthropathy. There is spurring of the endplates. There is probabl y some mild spinal stenosis at C4-5. There is posterior spurring and T1-T2 mild impingement on the sp inal canal. The skull base is intact. There is normal aeration of the mastoid sinuses. There is some dense left vertebral artery calcification. IMPRESSION: Moderate multilevel spondylotic changes starting at C5 level. There is probably some mild multilevel bony spinal stenosis. No fracture seen.
--- NOTE | 2020-12-02 01:00 | CT ---
EXAMINATION TYPE: CT thoracic spine wo con DATE OF EXAM: 12/01/2020 COMPARISON: None HISTORY: Neck and thoracic pain x43 years CT DLP: 1434.9 mGycm Automated exposure control for dose reduction was used. Images were obtained from the level of T1-L1 vertebra without contrast. Thoracic vertebra have normal alignment. There is multilevel mild degenerative disc space narrowing w ith spurring of the endplates. There is no thoracic compression fracture. There is no thoracic parasp inal mass. Posterior elements are intact. I see no bony destructive process. IMPRESSION: Multilevel ordinary spondylotic changes in the thoracic spine. No fracture seen.
== END | disposition home or self-care (01) ==
LOC: RADCTMAIN 17:05
PROVIDERS: ATTEND Orthopaedic Surgery
DX: M43.02 Spondylolysis, cervical region (principal); M43.04 Spondylolysis, thoracic region
CPT/HCPCS: 72125; 72128

== ENCOUNTER → 2021-02-10 | Outpatient (CLI) | payer BC ==
[2021-02-10 14:11] VITALS: BP 133/79; PULSE 101; RESP 16; TEMP 98.2
--- NOTE | 2021-02-10 14:41 | P.PAINCN ---
History of Present Illness - Reason for Consult Consult date: 02/10/21 - History of Present Illness This is 60 years old male with a chronic history of severe neck pain, started most than 30 years ago, after sports related injury, the intensity of the pain increased over the last 1 year, and currently the neck pain is constant and increases with any activity interference with the quality of life, and also he has numbness and tingling sensation in the upper extremity, but currently his neck pain is bothering him the most, patient tried conservative treatment which is failed, he tried medication management without any significant benefit(NSAID , Ultram ,and [place] ) patient denies any motor or sensory deficit, denies any fever or night sweats. He denies any change in the bowel movement or urination, he reported that the intensity of the pain interfere with his ability to work, and is interfere between 6/10 increased to 10 over 10 with any activity. Past Medical History Past Medical History: Coronary Artery Disease (CAD), Diabetes Mellitus, H yperlipidemia, Hypertension, Myocardial Infarction ([place]) Last Myocardial Infarction Date:: 2009 History of Any Multi-Drug Resistant Organisms: None Reported Past Surgical History: Heart Catheterization With Stent Additional Past Surgical History / Comment(s): ANAL FISSURE REPAIR. COLONOSCOPY Past Anesthesia/Blood Transfusion Reactions: No Reported Reaction Date of Last Stent Placement:: 2009 Smoking Status: Current every day smoker - Past Family History Father Family Medical History: Cancer Additional Family Medical History / Comment(s): PANCREATIC Medications and Allergies Home Medications Medication Instructions Recorded Confirmed Type Aspirin [Adult Low Dose Aspirin EC] 81 mg PO DAILY 08/29/18 02/10/21 History Insulin Aspart [NovoLOG] See Protocol SQ TID 08/29/18 02/10/21 History Insulin Glargine [Lantus] 20 unit SQ HS 08/29/18 02/10/21 History Insulin Glargine [Lantus] 40 unit SQ QAM 08/29/18 02/10/21 History Lisinopril [Zestril] 10 mg PO DAILY 08/29/18 02/10/21 History Multivitamins, Thera [Multivitamin 1 tab PO DAILY 08/29/18 02/10/21 History (formulary)] Free [place]-3 Fatty Acids/Fish Oil [Fish 1 cap PO DAILY 08/29/18 02/10/21 History Oil 1,000 mg Softgel] Pantoprazole Sodium [Protonix] 40 mg PO DAILY 08/29/18 02/10/21 History Atorvastatin [Lipitor] 80 mg PO DAILY #90 tab 10/26/18 02/10/21 Rx Metoprolol Tartrate [Lopressor] 50 mg PO BID #180 tab 10/26/18 02/10/21 Rx Cyclobenzaprine [Flexeril] 10 mg PO TID PRN #15 tab 06/07/20 02/10/21 Rx Allergies Allergy/AdvReac Type Severity Reaction Status Date / Time No Known Allergies Allergy Verified 06/07/20 13:50 Physical Exam Vitals: Vital Signs Temp Pulse Resp BP Pulse Ox 02/10/21 14:08 98.2 F 101 H 16 133/79 97 Intake and Output 02/09/21 02/10/21 02/10/21 22:59 06:59 14:59 Other: Weight 83.915 kg Physical Examinations : -Constitutiona : Cooperative , not in acute distress . -HEENT : nech : supple , no Lymphadenopathy , normal thyroid size . : eyes : no ptosis , no icterus, no photophobia . - neurologic : Cranial nerve II to XII intact , no focal neurological deffecit . -psychatric : alert , oriented X 3 , appropriate affect , intact judgment and insight . -Lymphatic : no Lymphadenopathy . - musculoskeltal : Cervical Spine motor stregnth in the deltoid and biceps, normal right side , normal Left side motor stregnth biceps and the wrist extensors normal right side ,normal left side . motor stregnth in the triceps muscle . normal Right side , normal Left side deep tendon reflexes normal at the biceps , normal at Brachioradialis , normal at triceps. cervical facet loading test: Positive Bilaterally Spurling test= positive Right , positive left. Neck distraction test= positive Right , positive left. Bee sign= positive right, positive left . Abduction and lateral rotation of the right shoulder associated with pain Lumber spine moter stegnth lower extremities ,thigh and legs 5/5 Right side , 5/5 Left side Results Comments: Computed tomography scan of the cervical spine= there is multilevel cervical facet hypertrophy and multilevel cervical spinal stenosis and multilevel cervical degenerative disc disease. Computed tomography scan of the thoracic spine multilevel spondylitic changes of the thoracic spine Assessment and Plan Plan: Assessment and plan=1-cervical spondylosis with cervical facet arthropathy 2-cervical degenerative disc disease. 3-cervical spinal stenosis. 4-cervical radiculopathy. Patient will be good candidate for diagnostic medial branch block cervical area at C4, C5, C6 bilaterally x2 and possible RFA (Patient had extensive cervical spondylosis but the insurance would not approve the with more than 3 levels of diagnostic medial branch block bilaterally, for this reason I chose to do C4-C5 and C5-C6 ) In the future patient needs to have a cervical epidural steroid injection to target his radicular symptoms. Patient could benefit from Neurontin 100 mg every 8 hours dispense 90 with 1 refill Patient could benefit from [place] 5/325 every 8 hours when necessary dispense 60 Patient signed the narcotic agreement. Urine drug screen ordered today Narcotic side effects including but not limited to risk of addiction and tolerance, and constipation discussed with the patient, and he Agreed with the preceding. Time with Patient: Greater than 30 PQRS Measure Charge Sheet Measure #130: Documentation of Current Meds in Medical Chart: Patient's medications documented in chart Measure #226: Tobacco Use: Screen & Cessation Intervention: Pt not a tobacco user Measure #111: Pneumonia Vaccination: Pneumococcal vaccine NOT administered or previously given Measure #47: Advance Care Plan: Advance care planning discussed & documented, pt chose/unable to give Measure #412: Opioid Treatment Agreement: No documentation of signed opioid treatment agreement Measure #408: Opioid Therapy Follow-up Evaluation: Patient had NO f/u eval minimum every 3 months during opioid therapy Measure #317: Preventitive Care & Scrn High Bld Press & F/U: Normal blood pressure, f/u not required Measure #128: Body Mass Index (BMI) Screening & Follow-up: BMI documented ABOVE normal parameters - f/u documented Measure #131: Pain Assessment & Follow-up: Pain positive & plan documented, Follow-up scheduled Measure #431: Unhealthy Alcohol Use Preventative Care & Scrn: Patient not identified as an unhealthy alcohol user PQRS Narrative: Smoking Status Former smoker Blood Pressure 133/79 Pain Intensity [Neck] 3 Scale Used Numeric (1 - 10) Hx Alcohol Use ([facility]) Yes Home Medications: Ambulatory Orders Aspirin [Adult Low Dose Aspirin EC] 81 mg PO DAILY 08/29/18 Insulin Aspart [NovoLOG] See Protocol SQ TID 08/29/18 Insulin Glargine [Lantus] 20 unit SQ HS 08/29/18 Insulin Glargine [Lantus] 40 unit SQ QAM 08/29/18 Lisinopril [Zestril] 10 mg PO DAILY 08/29/18 Multivitamins, Thera [Multivitamin (formulary)] 1 tab PO DAILY 08/29/18 Free [place]-3 Fatty Acids/Fish Oil [Fish Oil 1,000 mg Softgel] 1 cap PO DAILY 08/29/18 Pantoprazole Sodium [Protonix] 40 mg PO DAILY 08/29/18 Atorvastatin [Lipitor] 80 mg PO DAILY #90 tab 10/26/18 Metoprolol Tartrate [Lopressor] 50 mg PO BID #180 tab 10/26/18 Cyclobenzaprine [Flexeril] 10 mg PO TID PRN #15 tab 06/07/20
== END ==
LOC: PNWHC3 13:52
PROVIDERS: ATTEND Specialist
DX: M47.22 Other spondylosis with radiculopathy, cervical region (principal); M50.10 Cervical disc disorder with radiculopathy, unspecified cervical region; M48.02 Spinal stenosis, cervical region; I25.10 Atherosclerotic heart disease of native coronary artery without angina pectoris; E11.9 Type 2 diabetes mellitus without complications; E78.5 Hyperlipidemia, unspecified; I10 Essential (primary) hypertension; I25.2 Old myocardial infarction; F17.200 Nicotine dependence, unspecified, uncomplicated; Z79.4 Long term (current) use of insulin; Z79.82 Long term (current) use of aspirin; Z95.5 Presence of coronary angioplasty implant and graft
CPT/HCPCS: 80307; 99212; G0482

== ENCOUNTER 2021-03-05 06:41 | Day surgery (SDC) | payer BC ==
[2021-03-02 09:29] VITALS: BMI 25.7
[2021-03-05 07:00] VITALS: TEMP 98.4
[2021-03-05 07:12] LABS: Glucose,Whole Blood 56 mg/dL (75-99)
[2021-03-05] MEDS ORDERED: DEXTROSE 50% SYRINGE 50 ML IVP ONE (07:14)
[2021-03-05] MEDS ORDERED: LACTATED RINGERS 1,000 ML IV ONE ×2 (07:14)
[2021-03-05 07:28] LABS: Glucose,Whole Blood 105 mg/dL (75-99)
[2021-03-05] MEDS ORDERED: fentaNYL (PF) 50 MCG/ML 2 ML AMP ONE (08:00)
[2021-03-05] MEDS ORDERED: DEXAMETHASONE SOD PHOSPHATE 10 MG/ML 1 ML VIAL ONE (08:00)
[2021-03-05] MEDS ORDERED: IOPAMIDOL M200 10 ML VIAL ONE (08:00)
[2021-03-05] MEDS ORDERED: ROPIVACAINE 5MG/ML 20ML VIAL ONE (08:00)
[2021-03-05] MEDS ORDERED: MIDAZOLAM 2 MG/2 ML VIAL ONE (08:00)
--- NOTE | 2021-03-05 08:18 | P.PCN ---
Date of Procedure: 03/05/21 Description of Procedure: PREOPERATIVE DIAGNOSIS : Cervicalgia with Facet Arthropathy without myelopathy POSTOPERATIVE DIAGNOSIS: same PROCEDURE: first Diagnostic cervical medial branch block with fluoroscopy at C4 C5 C6 [bilateral] which covers facets C4-5 and C5-6 ANESTHESIA: Local anesthetic; moderate IV sedation with Versed and fentanyl Fluoroscopy was used for the procedure and images were saved in the radiology portion of the chart. Surgeon: Masoud Pleitez MD PROCEDURE INDICATION: Cervical pain without radiculopathy, not responsive to conservative management. PROCEDURE DESCRIPTION: the patient was seen and identified in the preop holding area , risks and benefits and possible complications of the procedure and alternatives were discussed with the patient, and the patient agreed to proceed with the procedure and signed the consent . IV was started , vital signs were monitored during the procedure and fluoroscopy was used to maximize the benefit and accuracy of the needle placement, and sedation was given to decrease patient anxiety. Patient was taken to the procedure room and placed in prone position. An AP fluoroscopic cath lab radiological technologist film was taken to identify the dens, the C4, C5, C6 vertebral bodies, and the waists of the articular pillars at the aforementioned levels. A lateral view was utilized to highlight the waists of the articular pillars at these levels. The skin was prepped with chlorhexidine and draped in the usual sterile fashion. The skin and subcutaneous tissue overlying the above levels were anesthetized using a 25-gauge 1-1/2-inch needle with 1% preservative free lidocaine for a total volume of 1 ml per level. An AP fluoroscopic cath lab radiological technologist film was taken to identify the dens, the C4 C5 C6 vertebral bodies, and the center of the centroid at the aforementioned levels. A lateral view was utilized to highlight the centroids at these levels. The skin was prepped with chlorhexidine and draped in the usual sterile fashion. The skin and subcutaneous tissue overlying the above levels were anesthetized using a 25-gauge 1-1/2-inch needle with 1% preservative free lidocaine for a total volume of 1 ml per level. An 25-gauge 3.5" Quinke needle was advanced, coaxially, in the lateral view until the needle tip was noted to slide into the center of the centroid. The needles were advanced until bony contact was felt and the tip of the Quinke needle was confirmed to be in the center of the articular pillars at the aforementioned levels. The needle positions were confirmed with AP and lateral fluoroscopic views. 0.2 mL of Isovue 200 per level was injected which revealed no vascular uptake and after negative aspiration, 0.5 mL of ropivacaine along with dexamethasone 10 mg was injected at each level and the needle subsequently removed . Total of 40 mg kenalog used. At the end of the procedure and the needles were removed and a bandage applied after the skin was cleaned. The patient was taken to recovery room in stable condition and monitors in the recovery room for 20-30 minutes and discharged home in stable condition after discharge criteria met and patient will follow up in clinic in 2 weeks EBL: Minimal COMPLICATION: None.
[2021-03-05] MEDS ORDERED: IV FLUID CONTINUATION 1,000 ML IV ONE (08:26)
[2021-03-05 08:28] LABS: Glucose,Whole Blood 60 mg/dL (75-99)
[2021-03-05 08:32] VITALS: BP 191/93; PULSE 71; RESP 12
[2021-03-05 08:49] LABS: Glucose,Whole Blood 75 mg/dL (75-99)
--- NOTE | 2021-03-05 09:45 | FL ---
EXAMINATION TYPE: FL guided pain mgmt statistic DATE OF EXAM: 03/05/2021 HISTORY: Fluoroscopy time 12 seconds of fluoroscopy provided. IMPRESSION: 1. Fluoroscopy time.
== END 2021-03-05 09:04 | disposition home or self-care (01) ==
LOC: ORPAIN 06:41
PROVIDERS: ATTEND Anesthesiology
DX: M54.2 Cervicalgia (principal); I10 Essential (primary) hypertension; I25.10 Atherosclerotic heart disease of native coronary artery without angina pectoris; E78.5 Hyperlipidemia, unspecified; E11.9 Type 2 diabetes mellitus without complications; M19.90 Unspecified osteoarthritis, unspecified site; K21.9 Gastro-esophageal reflux disease without esophagitis; Z79.82 Long term (current) use of aspirin; Z79.4 Long term (current) use of insulin; Z79.899 Other long term (current) drug therapy
CPT/HCPCS: 64490; 64491; J2250; J1100; J3010; Q9966; J2795

== ENCOUNTER 2021-04-02 07:16 | Day surgery (SDC) | payer BC ==
[2021-03-30 15:35] VITALS: BMI 25.7
[2021-04-02 07:31] VITALS: TEMP 97.3
[2021-04-02] MEDS ORDERED: LACTATED RINGERS 1,000 ML IV ONE (07:37)
[2021-04-02 07:38] LABS: Glucose,Whole Blood 66 mg/dL (75-99)
[2021-04-02] MEDS ORDERED: MIDAZOLAM 2 MG/2 ML VIAL ONE (08:18)
[2021-04-02] MEDS ORDERED: DEXAMETHASONE SOD PHOSPHATE 10 MG/ML 1 ML VIAL ONE (08:18)
[2021-04-02] MEDS ORDERED: IOPAMIDOL M200 10 ML VIAL ONE (08:18)
[2021-04-02] MEDS ORDERED: ROPIVACAINE 5MG/ML 20ML VIAL ONE (08:18)
[2021-04-02] MEDS ORDERED: LIDOCAINE 1% INJ 10MG/ML (20 ML MDV) ONE (08:18)
[2021-04-02] MEDS ORDERED: fentaNYL (PF) 50 MCG/ML 2 ML AMP ONE (08:18)
--- NOTE | 2021-04-02 08:35 | P.PCN ---
Date of Procedure: 04/02/21 Description of Procedure: PREOPERATIVE DIAGNOSIS : Cervicalgia with Facet Arthropathy without myelopathy POSTOPERATIVE DIAGNOSIS: same PROCEDURE: first Diagnostic cervical medial branch block with fluoroscopy at C4 C5 C6 [bilateral] which covers facets C4-5 and C5-6 #2 ANESTHESIA: Local anesthetic; moderate IV sedation with anesthesia team Fluoroscopy was used for the procedure and images were saved in the radiology portion of the chart. Surgeon: Masoud Pleitez MD PROCEDURE INDICATION: Cervical pain without radiculopathy, not responsive to conservative management. PROCEDURE DESCRIPTION: the patient was seen and identified in the preop holding area , risks and benefits and possible complications of the procedure and alternatives were discussed with the patient, and the patient agreed to proceed with the procedure and signed the consent . IV was started , vital signs were monitored during the procedure and fluoroscopy was used to maximize the benefit and accuracy of the needle placement, and sedation was given to decrease patient anxiety. Patient was taken to the procedure room and placed in prone position. An AP fluoroscopic contaminated land consultant film was taken to identify the dens, the C4, C5, C6 vertebral bodies, and the waists of the articular pillars at the aforementioned levels. A lateral view was utilized to highlight the waists of the articular pillars at these levels. The skin was prepped with chlorhexidine and draped in the usual sterile fashion. The skin and subcutaneous tissue overlying the above levels were anesthetized using a 25-gauge 1-1/2-inch needle with 1% preservative free lidocaine for a total volume of 1 ml per level. An AP fluoroscopic contaminated land consultant film was taken to identify the dens, the C4 C5 C6 vertebral bodies, and the center of the centroid at the aforementioned levels. A lateral view was utilized to highlight the centroids at these levels. The skin was prepped with chlorhexidine and draped in the usual sterile fashion. The skin and subcutaneous tissue overlying the above levels were anesthetized using a 25-gauge 1-1/2-inch needle with 1% preservative free lidocaine for a total volume of 1 ml per level. An 25-gauge 3.5" Quinke needle was advanced, coaxially, in the lateral view until the needle tip was noted to slide into the center of the centroid. The needles were advanced until bony contact was felt and the tip of the Quinke needle was confirmed to be in the center of the articular pillars at the aforementioned levels. The needle positions were confirmed with AP and lateral fluoroscopic views. 0.2 mL of Isovue 200 per level was injected which revealed no vascular uptake and after negative aspiration, 0.5 mL of ropivacaine along with dexamethasone 10 mg was injected at each level and the needle subsequently removed . Total of 10 mg dexamethasone used. At the end of the procedure and the needles were removed and a bandage applied after the skin was cleaned. The patient was taken to recovery room in stable condition and monitors in the recovery room for 20-30 minutes and discharged home in stable condition after discharge criteria met and patient will follow up in clinic in 2 weeks EBL: Minimal COMPLICATION: None.
[2021-04-02] MEDS ORDERED: IV FLUID CONTINUATION 1,000 ML IV ONE (08:40)
[2021-04-02 08:49] LABS: Glucose,Whole Blood 54 mg/dL (75-99)
[2021-04-02 09:01] VITALS: BP 153/88; PULSE 77; RESP 16
[2021-04-02 09:06] LABS: Glucose,Whole Blood 83 mg/dL (75-99)
--- NOTE | 2021-04-02 10:12 | FL ---
Fluoroscopy HISTORY: Pain 34 seconds fluoroscopy time supplied to the referring clinician. 6 intraoperative C-arm images docum ent the procedure. See dictated report from anesthesia.
== END 2021-04-02 09:23 | disposition home or self-care (01) ==
LOC: ORPAIN 07:16
PROVIDERS: ATTEND Anesthesiology
DX: M47.812 Spondylosis without myelopathy or radiculopathy, cervical region (principal); I25.10 Atherosclerotic heart disease of native coronary artery without angina pectoris; I10 Essential (primary) hypertension; E78.5 Hyperlipidemia, unspecified; I25.2 Old myocardial infarction; Z95.5 Presence of coronary angioplasty implant and graft; E11.9 Type 2 diabetes mellitus without complications; K21.9 Gastro-esophageal reflux disease without esophagitis; Z79.82 Long term (current) use of aspirin; Z79.4 Long term (current) use of insulin; Z79.891 Long term (current) use of opiate analgesic; Z79.899 Other long term (current) drug therapy
CPT/HCPCS: 64490; 64491; J2250; J1100; J2001; J3010; Q9966; J2795

== ENCOUNTER → 2021-04-14 | Outpatient (CLI) | payer BC ==
[2021-04-14 12:04] VITALS: BP 166/88; PULSE 82; RESP 18; TEMP 98.5
--- NOTE | 2021-04-14 12:31 | P.PN ---
Subjective Progress Note Date: 04/14/21 This is follow visit for this 61 years old male with a chronic history of severe neck pain, is diagnosed with cervical spondylosis with cervical facet arthropathy and cervical degenerative disc disease, status post diagnostic medial branch block cervical area patient reported that he get 100% improvement of his neck pain after the first diagnostic medial branch block and he got more than 80% improvement of his neck pain after the second diagnostic medial branch block, the pain relief was for short-term only and he continued to have severe neck pain, denies any motor or sensory deficit he denies any fever or night sweats with then he continued use [place] 5/325 when necessary, urine drug screen showed that he is positive for ETOH, and [place] Objective - Vital Signs Vital signs: Vital Signs Temp 98.5 F 04/14/21 12:02 Pulse 82 04/14/21 12:02 Resp 18 04/14/21 12:02 BP 166/88 04/14/21 12:02 Pulse Ox 97 04/14/21 12:02 Intake & Output 04/13/21 04/14/21 04/14/21 18:59 06:59 18:59 Weight 83.915 kg - Exam Physical Examinations : -Constitutiona : Cooperative , not in acute distress . -HEENT : nech : supple , no Lymphadenopathy , normal thyroid size . : eyes : no ptosis , no icterus, no photophobia . - neurologic : Cranial nerve II to XII intact , no focal ne urological deffecit . -psychatric : alert , oriented X 3 , appropriate affect , intact judgment and insight . -Lymphatic : no Lymphadenopathy . - musculoskeltal : Cervical Spine motor stregnth in the deltoid and biceps, normal right side , normal Left side motor stregnth biceps and the wrist extensors normal right side ,normal left side . motor stregnth in the triceps muscle . normal Right side , normal Left side deep tendon reflexes normal at the biceps , normal at Brachioradialis , normal at triceps. cervical facet loading test: Positive Bilaterally Spurling test= positive Right , positive left. Neck distraction test= positive Right , positive left. Bee sign= positive right, positive left . Abduction and lateral rotation of the right shoulder associated with pain Lumber spine moter stegnth lower extremities ,thigh and legs 5/5 Right side , 5/5 Left side Assessment and Plan Plan: Assessment and plan=1-cervical spondylosis with cervical facet arthropathy. 2-cervical degenerative disc disease. Had excellent pain relief after 2 diagnostic medial branch block cervical area ,100% Alief after the first diagnostic medial branch block and 80% after the second one, it will be good candidate to refill for medial branch cervical area at C4, C5, C6 bilaterally. 3-prescription refill for [place] 5/325 dispense 60 with 1 refill given Patient already signed a narcotic agreement. The risk and benefit of opioid Discussed with the patient and explained to him, explained to him that the risk of drowsiness sleepiness and he cannot drive the car and drink or take opioid He cannot operate heavy machinery while he is on.opioid, discussed with the patient the risk of addiction and tolerance of the opiate,, patient will discontinue using Neurontin because he did not benefit from it - PQRS measures = - Patient's medications are documented in the chart. -Tobacco use is negative and counseling.Given. -Patient's has not received pneumococcal vaccine. -Advanced care planning discussed, patient not eligible. -Opiate contract signed. -Pain positive and follow-up visit/procedure is scheduled. -Patient's blood pressure measured [166/88 ] , and documented in the record ,and patient will follow up with the primary care. -Patient's weight was measured and body mass index [ 25.8 ] above the,normal limits and counseling was done. and patient instructed to follow-up with the primary care physician. -Patient was identified as an unhealthy alcohol user Time with Patient: Less than 30
== END ==
LOC: PNWHC3 11:52
PROVIDERS: ATTEND Specialist
DX: M47.812 Spondylosis without myelopathy or radiculopathy, cervical region (principal); M50.30 Other cervical disc degeneration, unspecified cervical region; Z87.891 Personal history of nicotine dependence
CPT/HCPCS: 99211

== ENCOUNTER → 2021-05-07 | Day surgery (SDC) | payer BC ==
[2021-05-06 11:27] VITALS: BMI 25.7
[~2021-05-07] MED LIST changes: -ALPRAZolam 0.25 MG TAB PO PRN; -ASPIRIN 325 MG TAB PO ONE; +LACTATED RINGERS 1,000 ML IV SCH; +LIDOCAINE 1% (10MG/ML) FOR IV START INTRADERMA ONE; -NITROGLYCERIN SL TABS 0.4 MG TAB SUBLINGUAL PRN; -SODIUM CHLORIDE 0.9% 1,000 ML in EMPTY BAG 1 BAG IV ONE
[2021-05-07 07:39] VITALS: BP 135/78; PULSE 74; RESP 16; TEMP 97.4
[2021-05-07 07:47] LABS: Glucose,Whole Blood 300 mg/dL (75-99)
--- NOTE | 2021-05-07 08:02 | P.PN ---
Progress Note - Text Progress Note Date: 05/07/21 this is 61 years old male, with history of severe neck pain ,he is diagnosed with cervical degenerative disc disease, cervical spondylosis with cervical facet arthropathy, and he today to have radiofrequency thermocoagulation of the medial branch cervical area at C4,C5, C6 bilaterally, in the preoperative holding area we found out that the patient has fasting blood sugar is 300 , and there is concern about blood sugar will be increased or if we do the procedure because we have to give steroid, for this reason a discussed with the patient the option of rescheduling the procedure, and will do the RFA once the blood sugar under control
== END ==
LOC: ORPAIN 07:05
PROVIDERS: ATTEND Specialist
DX: M50.30 Other cervical disc degeneration, unspecified cervical region (principal); M47.812 Spondylosis without myelopathy or radiculopathy, cervical region; Z53.8 Procedure and treatment not carried out for other reasons

== ENCOUNTER → 2021-06-09 | Outpatient (CLI) | payer BC ==
[2021-06-09 14:05] VITALS: BP 174/87; PULSE 79; RESP 18; TEMP 98.1
--- NOTE | 2021-06-14 12:17 | P.PAINPG ---
Subjective Progress Note Date: 06/09/21 This is follow visit for this 61 years old male with a chronic history of severe neck pain, is diagnosed with cervical spondylosis with cervical facet arthropathy and cervical degenerative disc disease, status post diagnostic medial branch block cervical area patient reported that he get 100% improvement of his neck pain after the first diagnostic medial branch block and he got more than 80% improvement of his neck pain after the second diagnostic medial branch block, the pain relief was for short-term only and he continued to have severe neck pain, denies any motor or sensory deficit he denies any fever or night sweats with then he continued use [place] 5/325 when necessary, urine drug screen showed that he is positive for ETOH, and [place]. He was scheduled to have a bilateral C4-C6 radiofrequency ablation, however when he came into the preoperative area his blood sugar significantly elevated. Since then he has not had the procedure. he feels his blood sugar is better under control and he is happy to proceed with the procedure. He did mention some type of surgical technique for his neck that he saw online which I encouraged him to talk to Dr. Funk about. I told him that he might not even need surgery if the ablations go well. His medications have been doing well for him, he uses [place] sparingly and would like to the back on the gabapentin that he had in January. - Exam Physical Examinations : -Constitutiona : Cooperative , not in acute distress . -HEENT : nech : supple , no Lymphadenopathy , normal thyroid size . : eyes : no ptosis , no icterus, no photophobia . - neurologic : Cranial nerve II to XII intact , no focal neurological deffecit . -psychatric : alert , oriented X 3 , appropriate affect , intact judgment and insight . -Lymphatic : no Lymphadenopathy . - musculoskeltal : Cervical Spine motor stregnth in the deltoid and biceps, normal right side , normal Left side motor stregnth biceps and the wrist extensors normal right side ,normal left side . motor stregnth in the triceps muscle . normal Right side , normal Left side deep tendon reflexes normal at the biceps , normal at Brachioradialis , normal at triceps. cervical facet loading test: Positive Bilaterally Spurling test= positive Right , positive left. Neck distraction test= positive Right , positive left. Bee sign= positive right, positive left . Abduction and lateral rotation of the right shoulder associated with pain Lumber spine moter stegnth lower extremities ,thigh and legs 5/5 Right side , 5/5 Left side Assessment and Plan Plan: Assessment and plan=1-cervical spondylosis with cervical facet arthropathy. 2-cervical degenerative disc disease. Had excellent pain relief after 2 diagnostic medial branch block cervical area ,100% Alief after the first diagnostic medial branch block and 80% after the second one, it will be good candidate to refill for medial branch cervical area at C4, C5, C6 3-prescription refill for [place] 5/325 dispense 60 and gabapentin 300 mg TID Patient already signed a narcotic agreement. The risk and benefit of opioid Discussed with the patient and explained to him, explained to him that the risk of drowsiness sleepiness and he cannot drive the car and drink or take opioid He cannot operate heavy machinery while he is on.opioid, discussed with the patient the risk of addiction and tolerance of the opiate,, patient will discontinue using Neurontin because he did not benefit from it. We will do urinary drug screen for him on the next visit. - PQRS measures = - Patient's medications are documented in the chart. -Tobacco use is negative and counseling.Given. -Patient's has not received pneumococcal vaccine. -Advanced care planning discussed, patient not eligible. -Opiate contract signed. -Pain positive and follow-up visit/procedure is scheduled. -Patient's blood pressure measured [166/88 ] , and documented in the record ,and patient will follow up with the primary care. -Patient's weight was measured and body mass index [ 25.8 ] above the,normal limits and counseling was done. and patient instructed to follow-up with the primary care physician. -Patient was identified as an unhealthy alcohol user I have spent 24 minutes on review of the records, review of the imaging available, [id number] interaction with the patient, medication management, follow-up care coordination and record creation. PQRS Measure Charge Sheet PQRS Narrative: Smoking Status Former smoker Hx Alcohol Use (MH) Yes Home Medications: Ambulatory Orders Aspirin [Adult Low Dose Aspirin EC] 81 mg PO DAILY 08/29/18 Insulin Aspart [NovoLOG] See Protocol SQ AC-TID 08/29/18 Insulin Glargine [Lantus] 15 unit SQ HS 08/29/18 Insulin Glargine [Lantus] 30 unit SQ QAM 08/29/18 Lisinopril [Zestril] 10 mg PO DAILY 08/29/18 Multivitamins, Thera [Multivitamin (formulary)] 1 tab PO DAILY 08/29/18 [place]-3 Fatty Acids/Fish Oil [Fish Oil 1,000 mg Softgel] 1 cap PO DAILY 08/29/18 Pantoprazole Sodium [Protonix] 40 mg PO DAILY 08/29/18 Atorvastatin [Lipitor] 80 mg PO DAILY #90 tab 10/26/18 Metoprolol Tartrate [Lopressor] 50 mg PO DAILY 03/02/21 Vitamin D3(Dose Unknown) 2 tab PO DAILY 03/02/21 Gabapentin [Neurontin] 100 mg PO BID 30 Days #90 cap 06/09/21 HYDROcodone/APAP 5-325MG [[place] 5-325] 1 tab PO Q12HR PRN 30 Days #60 tab 06/09/21 Controlled Substance Measures - Controlled Substance Measures Is patient prescribed a controlled substance at discharge?: Yes When asked, does pt state using other controlled substances?: No If prescribed controlled substance>3 days was MAPS reviewed?: Yes If Rx opioid, was Start Talking consent form obtained?: Yes If opioid is for acute pain is fill amount 7 days or less?: No Was information provided regarding opioid addiction?: Yes
== END ==
LOC: PNWHC3 13:57
PROVIDERS: ATTEND Anesthesiology
DX: M47.812 Spondylosis without myelopathy or radiculopathy, cervical region (principal); M50.30 Other cervical disc degeneration, unspecified cervical region; Z87.891 Personal history of nicotine dependence
CPT/HCPCS: 99211

== ENCOUNTER 2021-06-11 07:01 | Day surgery (SDC) | payer BC ==
[2021-06-08 15:43] VITALS: BMI 25.7
--- NOTE | 2021-06-09 14:15 | P.PAINPG ---
Subjective Progress Note Date: 06/09/21 This is follow visit for this 61 years old male with a chronic history of severe neck pain, is diagnosed with cervical spondylosis with cervical facet arthropathy and cervical degenerative disc disease, status post diagnostic medial branch block cervical area patient reported that he get 100% improvement of his neck pain after the first diagnostic medial branch block and he got more than 80% improvement of his neck pain after the second diagnostic medial branch block, the pain relief was for short-term only and he continued to have severe neck pain, denies any motor or sensory deficit he denies any fever or night sweats with then he continued use [place] 5/325 when necessary, urine drug screen showed that he is positive for ETOH, and [place]. He was scheduled to have a bilateral C4-C6 radiofrequency ablation, however when he came into the preoperative area his blood sugar significantly elevated. Since then he has not had the procedure. he feels his blood sugar is better under control and he is happy to proceed with the procedure. He did mention some type of surgical technique for his neck that he saw online which I encouraged him to talk to Dr. Funk about. I told him that he might not even need surgery if the ablations go well. His medications have been doing well for him, he uses [place] sparingly and would like to the back on the gabapentin that he had in January. - Exam Physical Examinations : -Constitutiona : Cooperative , not in acute distress . -HEENT : nech : supple , no Lymphadenopathy , normal thyroid size . : eyes : no ptosis , no icterus, no photophobia . - neurologic : Cranial nerve II to XII intact , no focal neurological deffecit . -psychatric : alert , oriented X 3 , appropriate affect , intact judgment and insight . -Lymphatic : no Lymphadenopathy . - musculoskeltal : Cervical Spine motor stregnth in the deltoid and biceps, normal right side , normal Left side motor stregnth biceps and the wrist extensors normal right side ,normal left side . motor stregnth in the triceps muscle . normal Right side , normal Left side deep tendon reflexes normal at the biceps , normal at Brachioradialis , normal at triceps. cervical facet loading test: Positive Bilaterally Spurling test= positive Right , positive left. Neck distraction test= positive Right , positive left. Bee sign= positive right, positive left . Abduction and lateral rotation of the right shoulder associated with pain Lumber spine moter stegnth lower extremities ,thigh and legs 5/5 Right side , 5/5 Left side Assessment and Plan Plan: Assessment and plan=1-cervical spondylosis with cervical facet arthropathy. 2-cervical degenerative disc disease. Had excellent pain relief after 2 diagnostic medial branch block cervical area ,100% Alief after the first diagnostic medial branch block and 80% after the second one, it will be good candidate to refill for medial branch cervical area at C4, C5, C6 3-prescription refill for [place] 5/325 dispense 60 and gabapentin 300 mg TID Patient already signed a narcotic agreement. The risk and benefit of opioid Discussed with the patient and explained to him, explained to him that the risk of drowsiness sleepiness and he cannot drive the car and drink or take opioid He cannot operate heavy machinery while he is on.opioid, discussed with the patient the risk of addiction and tolerance of the opiate,, patient will discontinue using Neurontin because he did not benefit from it. We will do urinary drug screen for him on the next visit. - PQRS measures = - Patient's medications are documented in the chart. -Tobacco use is negative and counseling.Given. -Patient's has not received pneumococcal vaccine. -Advanced care planning discussed, patient not eligible. -Opiate contract signed. -Pain positive and follow-up visit/procedure is scheduled. -Patient's blood pressure measured [166/88 ] , and documented in the record ,and patient will follow up with the primary care. -Patient's weight was measured and body mass index [ 25.8 ] above the,normal limits and counseling was done. and patient instructed to follow-up with the primary care physician. -Patient was identified as an unhealthy alcohol user I have spent 24 minutes on review of the records, review of the imaging available, [id number] interaction with the patient, medication management, follow-up care coordination and record creation. PQRS Measure Charge Sheet PQRS Narrative: Smoking Status Former smoker Hx Alcohol Use (MH) Yes Home Medications: Ambulatory Orders Aspirin [Adult Low Dose Aspirin EC] 81 mg PO DAILY 08/29/18 Insulin Aspart [NovoLOG] See Protocol SQ AC-TID 08/29/18 Insulin Glargine [Lantus] 15 unit SQ HS 08/29/18 Insulin Glargine [Lantus] 30 unit SQ QAM 08/29/18 Lisinopril [Zestril] 10 mg PO DAILY 08/29/18 Multivitamins, Thera [Multivitamin (formulary)] 1 tab PO DAILY 08/29/18 [place]-3 Fatty Acids/Fish Oil [Fish Oil 1,000 mg Softgel] 1 cap PO DAILY 08/29/18 Pantoprazole Sodium [Protonix] 40 mg PO DAILY 08/29/18 Atorvastatin [Lipitor] 80 mg PO DAILY #90 tab 10/26/18 Metoprolol Tartrate [Lopressor] 50 mg PO DAILY 03/02/21 Vitamin D3(Dose Unknown) 2 tab PO DAILY 03/02/21 Gabapentin [Neurontin] 100 mg PO BID 30 Days #90 cap 06/09/21 HYDROcodone/APAP 5-325MG [[place] 5-325] 1 tab PO Q12HR PRN 30 Days #60 tab 06/09/21 Controlled Substance Measures - Controlled Substance Measures Is patient prescribed a controlled substance at discharge?: Yes When asked, does pt state using other controlled substances?: No If prescribed controlled substance>3 days was MAPS reviewed?: Yes If Rx opioid, was Start Talking consent form obtained?: Yes If opioid is for acute pain is fill amount 7 days or less?: No Was information provided regarding opioid addiction?: Yes
[2021-06-11] MEDS ORDERED: LACTATED RINGERS 1,000 ML IV ONE (07:15)
[2021-06-11 07:32] LABS: Glucose,Whole Blood 136 mg/dL (75-99)
[2021-06-11 07:34] VITALS: TEMP 97.6
[2021-06-11] MEDS ORDERED: LIDOCAINE 1% INJ 10MG/ML (20 ML MDV) ONE (07:43)
[2021-06-11] MEDS ORDERED: fentaNYL (PF) 50 MCG/ML 2 ML AMP ONE (07:43)
[2021-06-11] MEDS ORDERED: ROPIVACAINE 5MG/ML 20ML VIAL ONE (07:43)
[2021-06-11] MEDS ORDERED: MIDAZOLAM 2 MG/2 ML VIAL ONE (07:43)
--- NOTE | 2021-06-11 08:12 | P.PCN ---
Date of Procedure: 06/11/21 Description of Procedure: PREOPERATIVE DIAGNOSIS: Cervicalgia POSTOPERATIVE DIAGNOSIS: Same Surgeon: Masoud Pleitez M.D. PROCEDURE PERFORMED: Cervical Medial Branch Radiofrequency Ablation, at the following levels: C4-C5, C5-C6 right side ANESTHESIA: Lidocaine 1% 5 mL, Monitored anesthesia care with anesthesia team ESTIMATED BLOOD LOSS: Minimal Fluoroscopy was used for the procedure and images were saved in the radiology portion of the chart. PROCEDURE INDICATION: The patient with neck pain secondary to cervical facet arthropathy who had more than 50% relief of pain with previous diagnostic lumbar medial branch block X2. PROCEDURE DESCRIPTION / TECHNIQUE: The patient was seen and identified in the preoperative area. Risks, benefits, complications, including but not limited to risk of infection ,bleeding , allergic reactions to the medications and incomplete pain relief , and alternatives were discussed with the patient, the patient agreed to proceed with the procedure and signed the consent. IV was started. The operative site was marked. Patient was taken to the OR and time out was completed. The patient was placed in the prone position on the procedure table. The lumbar area was prepped and draped in the usual sterile fashion. . Vital signs were closely monitored during the procedure .IV sedation was used during the procedure to decrease patients anxiety. An AP fluoroscopic clerical support film was taken to identify the dens, the C4 C5 C6 vertebral bodies, and the waists of the articular pillars at the aforementioned levels [] levels. A pillar (caudal tilt) view was utilized to highlight the waists of the articular pillars at these levels. The skin was prepped with chlorhexidine and draped in the usual sterile fashion. The skin and subcutaneous tissue overlying the above levels were anesthetized using a 25-gauge 1-1/2-inch needle with 1% preservative free lidocaine for a total volume of 1 ml per level. An 18-gauge and 100 mm SMK needle with a 10 mm active tip was advanced, coaxially, in the pillar view until the needle tip was noted to slide into the groove of the articular pillar. A true lateral view was obtained and the needle tips were advanced to cover to the , lateral aspect of the articular pillar at right C4 C5 C6, for corresponding medial branch ablation. The needles were advanced until bony contact was felt and the tip of the SMK needle was confirmed to be in the groove of the right waist of the articular pillars at the aforementioned levels. The needle positions were confirmed with AP and lateral fluoroscopic views. Motor stimulation was then performed at 2 Hz and up to 2V with only paraspinal muscle contraction noted at each level and no upper extremity stimulation. At this point, after negative aspiration, Bupivacaine 0.5% x 0.5 mL was injected at each level prior to radiofrequency ablation. Lesioning was then carried out at 85 degrees Celsius times 90 seconds with 2 cycles per level. Following lesioning the needles were removed. COMPLICATIONS: No acute complications. DISPOSITION / PLANS: The patient was placed in a supine position and transferred to the recovery area in a stable condition for observation and was discharged from the recovery room after meeting discharge criteria. Home discharge instructions given to the patient by the staff. The patient will follow up in clinic in 4 weeks.
[2021-06-11] MEDS ORDERED: IV FLUID CONTINUATION 1,000 ML IV ONE (08:18)
[2021-06-11 08:48] VITALS: BP 164/77; PULSE 74; RESP 16
--- NOTE | 2021-06-11 09:05 | FL ---
Fluoroscopy HISTORY: Pain 27 seconds fluoroscopy time supplied to the referring clinician. 1 intraoperative C-arm images docum ent the procedure. See dictated report from anesthesia.
== END 2021-06-11 08:50 | disposition home or self-care (01) ==
LOC: ORPAIN 07:01
PROVIDERS: ATTEND Anesthesiology
DX: M54.2 Cervicalgia (principal); I25.10 Atherosclerotic heart disease of native coronary artery without angina pectoris; I10 Essential (primary) hypertension; I25.2 Old myocardial infarction; E78.5 Hyperlipidemia, unspecified; Z95.5 Presence of coronary angioplasty implant and graft; Z87.891 Personal history of nicotine dependence; E11.9 Type 2 diabetes mellitus without complications; M19.90 Unspecified osteoarthritis, unspecified site; K21.9 Gastro-esophageal reflux disease without esophagitis
CPT/HCPCS: 64633; 64634; J2250; J2001; J3010; J2795

== ENCOUNTER → 2021-06-11 | Outpatient (CLI) | payer BC ==
[2021-06-11 15:52] LABS: HCT 36.9 % (39.6-50.0); HGB 12.7 g/dL (13.0-17.0); MCH 36.2 pg (27.0-32.0); MCHC 34.4 g/dL (32.0-37.0); MCV 105.1 fL (80.0-97.0); Mean Platelet Volume 9.5 fL (9.5-12.2); Platelet Count 229 X 10*3/uL (140-440); RBC 3.51 X 10*6/uL (4.40-5.60); RDW 12.3 % (11.5-14.5); WBC 6.23 X 10*3/uL (4.50-10.00)
[2021-06-11 17:25] LABS: Basophils # (A) 0.04 X 10*3/uL (0.00-0.10); Basophils % (A) 0.6 %; Eosinophils # (A) 0.12 X 10*3/uL (0.04-0.35); Eosinophils % (A) 1.9 %; Lymphocytes % (A) 25.7 %; Monocytes # (A) 0.55 X 10*3/uL (0.20-1.00); Monocytes % (A) 8.8 %; Neutrophils # (A) 3.91 X 10*3/uL (1.80-7.70); Neutrophils % (A) 62.8 %
[2021-06-11 18:28] LABS: Hemoglobin A1C 8.1 % (4.0-6.0)
[2021-06-11 20:42] LABS: C-Peptide 0.09 ng/mL (0.81-3.85)
[2021-06-11 21:32] LABS: African American GFR (CKD) 95.1 (60.0-200.0); Albumin 4.2 g/dL (3.80-4.90); Albumin/Globulin Ratio 1.62 (1.60-3.17); Anion Gap 7.7 mmol/L (4.00-12.00); Carbon Dioxide 25.3 mmol/L (21.6-31.8); Chol/HDL Ratio 4.55; Globulin 2.6 g/dL (1.6-3.3); Potassium 4.5 mmol/L (3.5-5.5); Total Bilirubin 0.3 mg/dL (0.2-1.2); Total Protein 6.8 g/dL (6.2-8.2)
== END | disposition home or self-care (01) ==
LOC: LABWHC1 08:53
PROVIDERS: ATTEND Internal Medicine
DX: Z00.01 Encounter for general adult medical examination with abnormal findings (principal); E78.00 Pure hypercholesterolemia, unspecified; E11.9 Type 2 diabetes mellitus without complications; I10 Essential (primary) hypertension
CPT/HCPCS: 36415; 80053; 80061; 83036; 83721; 84681; 85025

== ENCOUNTER 2021-07-16 06:28 | Day surgery (SDC) | payer BC ==
[2021-07-13 17:44] VITALS: BMI 25.7
[~2021-07-16 06:28] MED LIST changes: -LIDOCAINE 1% (10MG/ML) FOR IV START INTRADERMA ONE; +LIDOCAINE 1% (10MG/ML) FOR IV START INTRADERMA PRN
[2021-07-16 07:00] VITALS: TEMP 97.9
[2021-07-16 07:01] LABS: Glucose,Whole Blood 80 mg/dL (75-99)
[2021-07-16] MEDS ORDERED: ROPIVACAINE 5MG/ML 20ML VIAL ONE (07:33)
[2021-07-16] MEDS ORDERED: methylPREDNISolone ACETATE 40 MG/ML 1 ML VIAL ONE (07:33)
[2021-07-16] MEDS ORDERED: MIDAZOLAM 2 MG/2 ML VIAL ONE (07:33)
[2021-07-16] MEDS ORDERED: fentaNYL (PF) 50 MCG/ML 2 ML AMP ONE (07:33)
--- NOTE | 2021-07-16 08:05 | P.PCN ---
Date of Procedure: 07/16/21 Procedure(s) Performed: PREOPERATIVE DIAGNOSIS: Cervical spondylosis with Facet Arthropathy without myelopathy. POSTOPERATIVE DIAGNOSIS: Cervical spondylosis with Facet Arthropathy without myelopathy. PROCEDURES: Radiofrequency thermocoagulation, Left C4, C5, C6 medial branch with Fluroscopy [place](fluoroscopy was available in etiology department ) (to denervate the facet joint at Left C4- 5 , C5- 6 ) ANESTHESIA: Monitored anesthesia care as per anesthesia department EBL: Minimal PROCEDURE INDICATION: The patient with neck pain secondary to cervical arthropathy who had more than 50% relief of her pain with previous diagnostic cervical medial branch block. PROCEDURE DESCRIPTION / TECHNIQUE: The patient was seen and identified in the preoperative area. Risks, benefits, complications, and alternatives were discussed with the patient, the patient agreed to proceed with the procedure and signed the consent. IV was started. Vital signs remained stable throughout the procedure. Patient was taken to the OR and time out was completed. The patient was placed in the prone position on the procedure table. A pillow was placed under the patients chest to increase the cervical interlaminar space. The cervical area was prepped and draped in the usual sterile fashion. Critical pause was taken. Vital signs were closely monitored during the procedure. Conscious sedation was used during the procedure to decrease patients anxiety. Using cross-table lateral fluoroscopy, the centroid of the trapezoid of Left C4, C5, and C6 were identified, marked, and localized with 1% lidocaine. Subsequently, a 20 -jg radiofrequency cannula with a 10-mm active tip was advanced guided by fluoroscopy to the centroid of the trapezoid of Left C4, C5, and C6 . Needle tip position was confirmed at the centroid of the trapezoids of Left C4, C5, and C6 with anteroposterior fluoroscopy. Each site then underwent sensory testing at 50 Hz and 0 to 1 volt and motor testing at 2 Hz and 0 to 3 volt with local stimulation, but no radicular symptoms down the arm. Thereafter each sites underwent radiofrequency thermocoagulation at 80 degrees celsius for 90 seconds after injecting 0.5 ml of PF Ropivacaine 0.5 %. After thermocoagulation, 1 ml of the block solution containing Depo-Medrol 40 mg and 3 mL of preservative-free normal saline was injected at the Left C4, C5, and C6 levels after negative aspiration of CSF and blood and with no paresthesias. Cannulas were retracted while injecting lidocaine 1% until the needle is out. Skin was cleansed and bandages were applied. COMPLICATIONS: No acute complications. DISPOSITION / PLANS: The patient was placed in a supine position and transferred to the recovery area in a stable condition for observation and was discharged from the recovery room after meeting discharge criteria. Home discharge instructions given to the patient by the staff. The patient was reexamined prior to discharge. The patient will schedule a follow up in the clinic in 2-4 weeks.
[2021-07-16] MEDS ORDERED: IV FLUID CONTINUATION 600 ML IV ONE (08:08)
[2021-07-16 08:11] VITALS: RESP 16
--- NOTE | 2021-07-16 08:20 | FL ---
EXAMINATION TYPE: FL guided pain mgmt statistic DATE OF EXAM: 07/16/2021 HISTORY: Fluoroscopy time 39 seconds of fluoroscopy provided. IMPRESSION: 1. Fluoroscopy time.
[2021-07-16 08:31] VITALS: BP 120/71; PULSE 68
== END 2021-07-16 08:43 | disposition home or self-care (01) ==
LOC: ORPAIN 06:28
PROVIDERS: ATTEND Specialist
DX: M47.812 Spondylosis without myelopathy or radiculopathy, cervical region (principal)
CPT/HCPCS: 64633; 64634; J2250; J1030; J3010; J2795

== ENCOUNTER → 2021-08-04 | Outpatient (CLI) | payer BC ==
[2021-08-04 14:54] VITALS: BP 126/65; PULSE 75; RESP 16; TEMP 98.7
--- NOTE | 2021-08-04 15:02 | P.PN ---
Subjective Progress Note Date: 08/04/21 This is a 61-year-old gentleman with history of chronic neck pain with occa sional radiation to the shoulders and numbness and tingling in the arms down to the hands bilaterally mostly on the medial 2 fingers. .The patient had cervical medial branch RFA bilaterally however he states that this procedure has increased his pain instead of helping it. 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 Patient denies new-onset weakness, bowel/bladder incontinence, or any other signs or symptoms of cauda equina syndrome. There are no signs of acute intoxication, and no indications of medication diversion or overuse. In addition to above, 13-point review of systems is also negative for chest pain, shortness of breath, changes in vision, changes in hearing, new onset weakness, abdominal pain, diarrhea, extreme fatigue, malaise, fever, skin changes, homicidal or suicidal ideation, or bowel or bladder incontinence. Vital Signs: Reviewed in EMR Gen: AAOx3, NAD HEENT: PERRLA,hearing grossly normal Pulm: resp unlabored Neck: supple, trachea midline Neuro exam of the upper extremities: Normal muscle strength bilaterally, absent biceps reflex bilaterally and absent brachioradialis reflex bilaterally but normal triceps reflex bilaterally. Straight leg raising test: Kai's test: Range of motion of the lumbar spine: Facet loading test: Tenderness in the paravertebral musculature: No tenderness in the cervical paravertebral musculature Normal range of motion of the cervical spine Neuro: CN II-XII grossly intact, Imaging: Reviewed in EMR/chart Assessment: Cervical spondylosis without myelopathy Mild Central spinal stenosis at the C4 5 level Plan: 1. Explanation: When patients on opioids, opioid and psychological risk scores were reviewed. Diagnoses, prognoses, and multiple treatment options including but not limited to physical therapy, interventional therapies, adjuvant medical therapies, narcotic medication therapies, and surgery were discussed with the patient and all questions were answered to the patient's satisfaction. 2. Opioid agreement:When patients are prescribed opoids through our clinic, opioid agreement is signed with the patient and the patient is warned not to use opioids while driving or before driving and not to combine opioids with benzodiazepines or alcohol. 3. Counseling: When patient is smoking or obese, the patient was counseled extensively on SMOKING CESSATION, BODY MASS INDEX, EXERCISE. Specifically, the patient was instructed regarding the importance of smoking cessation, obesity, and exercise in the context of both chronic pain and overall health. 4. Procedures: The patient may benefit from getting cervical epidural steroid injection under fluoroscopic guidance however we will try conservative management by increasing his Neurontin dose gradually over the next few weeks.. 5. Consultations: None 6. Investigations: None 7. Medications: Continue with [place] 5 mg twice a day as needed for pain #60 pills of [place] refills, Neurontin 300 mg 1 by mouth daily at bedtime for the first week with gradual increase every week by 1 pill to 3 pills a day. I asked the patient to start the Neurontin when he is off work to see how it will affect his body. 8. Disposition: Return to clinic in 4 weeks 9. Maps were reviewed and were appropriate. Controlled Substance Measures Is patient prescribed a controlled substance at discharge?: Yes When asked, does pt state using other controlled substances?: No If prescribed controlled substance>3 days was MAPS reviewed?: Yes If Rx opioid, was Start Talking consent form obtained?: Yes If opioid is for acute pain is fill amount 7 days or less?: No Was information provided regarding opioid addiction?: Yes Objective - Vital Signs Vital signs: Vital Signs Temp 98.7 F 08/04/21 14:51 Pulse 75 08/04/21 14:51 Resp 16 08/04/21 14:51 BP 126/65 08/04/21 14:51 Pulse Ox 98 08/04/21 14:51
== END ==
LOC: PNWHC3 14:20
PROVIDERS: ATTEND Anesthesiology
DX: M47.812 Spondylosis without myelopathy or radiculopathy, cervical region (principal); M48.02 Spinal stenosis, cervical region; Z87.891 Personal history of nicotine dependence
CPT/HCPCS: 80307; 99212; G0482

== ENCOUNTER → 2021-09-01 | Outpatient (CLI) | payer BC ==
[2021-09-01 14:32] VITALS: BP 155/80; PULSE 84; RESP 18; TEMP 98.3
--- NOTE | 2021-09-01 15:25 | P.PN ---
Subjective Progress Note Date: 09/01/21 This is follow visit for this 61 years old male with a chronic history of severe neck pain, he is diagnosed with cervical spondylosis with cervical facet arthropathy and cervical degenerative disc disease, status post RFA medial branch block cervical area , she continued to have some neck pain and numbness and tingling sensation in the upper extremity , he denies any motor or sensory deficit he denies any fever or night sweats with then he continued use [place] 5/325 when necessary, Neurontin 300 mg 3 times a day which was increased as visit from 100 mg 3 times a day Physical Examinations : -Constitutiona : Cooperative , not in acute distress . -HEENT : nech : supple , no Lymphadenopathy , normal thyroid size . : eyes : no ptosis , no icterus, no photophobia . - neurologic : Cranial nerve II to XII intact , no focal neurological deffecit . -psychatric : alert , oriented X 3 , appropriate affect , intact judgment and insight . -Lymphatic : no Lymphadenopathy . - musculoskeltal : Cervical Spine motor stregnth in the deltoid and biceps, normal right side , normal Left side motor stregnth biceps and the wrist extensors normal right side ,normal left side . motor stregnth in the triceps muscle . normal Right side , normal Left side deep tendon reflexes normal at the biceps , normal at Brachioradialis , normal at triceps. cervical facet loading test: Positive Bilaterally Spurling test= positive Right , positive left. Neck distraction test= positive Right , positive left. Bee sign= positive right, positive left . Abduction and lateral rotation of the right shoulder associated with pain Lumber spine moter stegnth lower extremities ,thigh and legs 5/5 Right side , 5/5 Left side Assessment and plan= 1-cervical spondylosis with cervical facet arthropathy. 2-cervical degenerative disc disease. he continued to have neck pain after RFA of media l branch cervical area 3-prescription refill for [place] 5/325 dispense 60 with 1 refill given, Neurontin 300 mg 3 times a day Patient already signed a narcotic agreement. The risk and benefit of opioid Discussed with the patient and explained to him, explained to him that the risk of drowsiness sleepiness and he cannot drive the car and drink or take opioid He cannot operate heavy machinery while he is on.opioid, discussed with the patient the risk of addiction and tolerance of the opiate, I reviewed the urine drug screen with the patient and explained to him that he is undergoing level is significantly elevated and in the future, if refunded high alcohol level he is at risk of being fired from the pain clinic, stress with the patient the risk of addiction risk of EtOH abuse - PQRS measures = - Patient's medications are documented in the chart. -Tobacco use is negative and counseling.Given. -Patient's has not received pneumococcal vaccine. -Advanced care planning discussed, patient not eligible. -Opiate contract signed. -Pain positive and follow-up visit/procedure is scheduled. -Patient's blood pressure measured [151/80 ] , and documented in the record ,and patient will follow up with the primary care. -Patient's weight was measured and body mass index [ 25.8 ] above the,normal limits and counseling was done. and patient instructed to follow-up with the primary care physician. -Patient was identified as an unhealthy alcohol user Objective - Vital Signs Vital signs: Vital Signs Temp 98.3 F 09/01/21 14:27 Pulse 84 09/01/21 14:27 Resp 18 09/01/21 14:27 BP 155/80 09/01/21 14:27 Pulse Ox 97 09/01/21 14:27 Intake & Output 08/31/21 09/01/21 09/01/21 18:59 06:59 18:59 Weight 79.379 kg
== END ==
LOC: PNWHC3 14:17
PROVIDERS: ATTEND Specialist
DX: M47.812 Spondylosis without myelopathy or radiculopathy, cervical region (principal); M50.30 Other cervical disc degeneration, unspecified cervical region; Z87.891 Personal history of nicotine dependence
CPT/HCPCS: 99211

== ENCOUNTER → 2021-10-27 | Outpatient (CLI) | payer BC ==
--- NOTE | 2021-10-27 15:18 | P.PN ---
Subjective Progress Note Date: 10/27/21 This is follow visit for this 61 years old male with a chronic history of severe neck pain, he is diagnosed with cervical spondylosis with cervical facet arthropathy and cervical degenerative disc disease, previousely we have done RFA medial branch block cervical area , he continued use [place] 5/325 when necessary, Neurontin 300 mg 3 times a day, and here today for medication refill , reviewed his urine drug screen today which showed that patient had negative drug screen for any Neurontin, and the urine drug screen was positive for high level of ETOH Physical Examinations : -Constitutiona : Cooperative , not in acute distress . -HEENT : nech : supple , no Lymphadenopathy , normal thyroid size . : eyes : no ptosis , no icterus, no photophobia . - neurologic : Cranial nerve II to XII intact , no focal neurological deffecit . -psychatric : alert , oriented X 3 , appropriate affect , intact judgment and insight . Assessment and plan= 1-cervical spondylosis with cervical facet arthropathy. 2-cervical degenerative disc disease. he continued to have neck pain after RFA of medial branch cervical area pateints was given ,warning last visit about the risk mixing EtOH and opioid , and the combination could be very risky He continued to deny that his drinking, he continued to deny that he is not taking Neurontin, he reported that he take the Neurontin 3 times a day, explained to the patient that I will not be able to continue taking care of him, will be discharged from the clinic and he has to find a different pain clinic, I will give him prescription for [place] 5/325 dispense 60 with no refills, and I will give him a new prescription for Neurontin which is 100 mg 2 times a day instead of 300 mg 3 times a day (urine drug screen was negative for any Neurontin in the urine ) Objective - Vital Signs Vital signs: Intake & Output 10/26/21 10/27/21 10/27/21 18:59 06:59 18:59 Weight 83.915 kg
[2021-10-27 15:20] VITALS: BP 158/82; PULSE 71; RESP 18; TEMP 98.4
== END ==
LOC: PNWHC3 14:28
PROVIDERS: ATTEND Specialist
DX: M47.812 Spondylosis without myelopathy or radiculopathy, cervical region (principal); M50.30 Other cervical disc degeneration, unspecified cervical region; Z87.891 Personal history of nicotine dependence
CPT/HCPCS: 80307; 99212; G0482; 99211

== ENCOUNTER → 2021-12-18 | Outpatient (CLI) | payer BC ==
[2021-12-18 18:59] LABS: HCT 38.2 % (39.6-50.0); HGB 13.1 g/dL (13.0-17.0); MCH 34.8 pg (27.0-32.0); MCHC 34.3 g/dL (32.0-37.0); MCV 101.6 fL (80.0-97.0); Mean Platelet Volume 9.9 fL (9.5-12.2); Platelet Count 257 X 10*3/uL (140-440); RBC 3.76 X 10*6/uL (4.40-5.60); RDW 11.7 % (11.5-14.5); WBC 7.03 X 10*3/uL (4.50-10.00)
[2021-12-18 19:03] LABS: African American GFR (CKD) 86.6 (60.0-200.0); Albumin 4.5 g/dL (3.8-4.9); Albumin/Globulin Ratio 1.5 (1.60-3.17); Anion Gap 13.2 mmol/L (10.00-18.00); BUN/Creat Ratio 20.28 Ratio (12.00-20.00); Blood Urea Nitrogen 21.9 mg/dL (9.0-27.0); Calcium 9.5 mg/dL (8.7-10.3); Carbon Dioxide 23.9 mmol/L (20.0-27.5); HDL Cholesterol 30.9 mg/dL (40.00-60.00); Non-African American GFR(CKD) 74.7 (60.0-200.0); Potassium 4.4 mmol/L (3.5-5.5); Total Bilirubin 0.7 mg/dL (0.30-1.20); Total Protein 7.5 g/dL (6.2-8.2)
[2021-12-18 19:16] LABS: Chol/HDL Ratio 5.11 Ratio; LDL Cholesterol,Direct Reflex 48.9 mg/dL (0.00-129.00)
== END | disposition home or self-care (01) ==
LOC: LABWHC1 08:56
PROVIDERS: ATTEND Internal Medicine Interventional Cardiology
DX: I25.10 Atherosclerotic heart disease of native coronary artery without angina pectoris (principal); E78.2 Mixed hyperlipidemia
CPT/HCPCS: 36415; 80053; 80061; 83721; 85027

== ENCOUNTER 2021-12-23 07:25 | Day surgery (SDC) | payer BC ==
[2021-12-17 13:46] VITALS: BMI 25.7
[~2021-12-23 07:25] MED LIST changes: +ALPRAZolam 0.25 MG TAB PO PRN; +ALPRAZolam 0.5 MG TAB PO PRN; +ASPIRIN 325 MG TAB PO STA; +HEPARIN SODIUM,PORCINE 10,000 UNIT in SODIUM CHLORIDE 0.9% 1,000 ML IRRIGATION PRN; +HEPARIN SODIUM,PORCINE 2,500 UNIT in SODIUM CHLORIDE 0.9% 250 ML IRRIGATION PRN; -LACTATED RINGERS 1,000 ML IV SCH; -LIDOCAINE 1% (10MG/ML) FOR IV START INTRADERMA PRN; +NITROGLYCERIN SL TABS 0.4 MG TAB SUBLINGUAL PRN; +SODIUM CHLORIDE 0.9% 1,000 ML in EMPTY BAG 1 BAG IV SCH
[2021-12-23] MEDS ORDERED: SODIUM CHLORIDE 0.9% 1,000 ML IV ONE (08:00)
[2021-12-23 08:06] VITALS: RESP 16; TEMP 97.4
[2021-12-23 08:07] LABS: Glucose,Whole Blood 101 mg/dL (75-99)
[2021-12-23] MEDS ORDERED: VERAPAMIL 2.5 MG/ML 2 ML AMP ONE (09:03)
[2021-12-23] MEDS ORDERED: LIDOCAINE 1% INJ 10MG/ML (20 ML MDV) ONE (09:03)
[2021-12-23] MEDS ORDERED: fentaNYL (PF) 50 MCG/ML 2 ML AMP ONE (09:08)
[2021-12-23] MEDS ORDERED: fentaNYL (PF) 50 MCG/ML 2 ML AMP IV ONE (09:42)
[2021-12-23] MEDS ORDERED: LIDOCAINE 1% INJ 10MG/ML (20 ML MDV) SQ ONE (09:47)
[2021-12-23] MEDS ORDERED: HEPARIN SODIUM 1,000 UN/ML (10ML VL) IV ONE (09:48)
[2021-12-23] MEDS ORDERED: VERAPAMIL SYRINGE (5 MG/10 ML) INTRAARTER ONE (09:48)
[2021-12-23] MEDS ORDERED: IOPAMIDOL-370 125ML BTL INJ ONE (09:59)
[2021-12-23] MEDS ORDERED: RX INFO: IV CONTRAST WAS GIVEN 1 EACH MISC MISCELLANE PRN (10:21)
[2021-12-23] MEDS ORDERED: SODIUM CHLORIDE 0.9% 1,000 ML IV SCH (10:30)
--- NOTE | 2021-12-23 10:37 | P.CARDCATH ---
Date of Procedure: 12/23/21 Description of Procedure: Cardiac Catheterization: [The patient is a 61-year-old male with a known history of hypertension, hyperlipidemia and diabetes mellitus as well as prior history PCI of the left circumflex who is being scheduled to undergo cervical fusion. He had no recent episode of chest discomfort or dyspnea on exertion. He underwent an MPI that showed lateral wall reversible defect.] Recommendations were made regarding cardiac catheterization, the risks and the complications were discussed with the patient who is in full understanding and agreement. Procedure Description: Patient was brought to laborer yard in fasting semi-sedated state after receiving Fentanyl and Benadryl achieiving moderate conscious sedated state. Using Xylocaine Anesthesia and Seldinger technique, a 6-Latvian sheath was introduced in the [right] radial artery . Subsequently, selective [coronary] angiography performed using a [5]-Latvian [3.5] bend [Dave] catheter. Multiple views of the coronary artery including hemiaxial views were obtained. The [pig tail] catheter was used to cross the aortic valve and [LVEDP] was calculated. Following that, catheter and sheath were removed. Hemostasis was obtained with deployment of TR band . There was no immediate complication. Patient was returned to room in stable condition. Of note, the patient received a total of [4500] units of intravenous heparin as well as intra-arterial verapamil. There was no immediate complications. Findings: Left main: [This is a short sized vessel bifurcating into LAD and left circumflex, left main has no evidence of high-grade stenosis] LAD: In this vessel is heavily calcified proximally, giving rise to 2 diagonal branch, after the takeoff of the second branch there is a tubular lesion of 70% stenosis, the vessel size beyond the small, there is no progression in comparison to 2018 Left circumflex: This is a nondominant vessel, giving rise to 2 obtuse marginal branch, at the takeoff of the second obtuse marginal branch in the stented segment there is 70% eccentric lesion, the proximal left circumflex is tortuous, calcified and has a 40% plaque RCA: This is a dominant large sized vessel, bifurcating into PDA and PLV, the mid RCA has a 40-50% plaque, there is another 40% plaque distally prior to the bifurcation. There is mild disease in the PDA and PLV [Left] Ventriculogram: Was not performed Hemodynamics: [There was no gradient across the aortic valve, with an LVEDP of 12-16 mmHg] Conclusion: 1. [Calcified coronary arteries] 2. [In stent restenosis of the mid left circumflex] 3. [Mild to moderate disease in the RCA with moderate disease in the mid LAD] Recommendations: [I discussed with the patient the options of proceeding with PCI of the left circumflex but with have to postpone this surgical intervention for 6 months. In view of the absence of the symptoms, the location of the lesion I feel that the patient should be able to proceed with a surgical intervention on maximum medical therapy. I discussed with him both options and he is in favor of continuing medical therapy and proceeding with his surgical intervention. Duration of sedation is [15] minutes.
[2021-12-23 11:39] VITALS: BP 111/55
[2021-12-23 13:18] VITALS: PULSE 80
[2021-12-23] MEDS ORDERED: NON FORMULARY DRUG (Insulin Glargine 100 UNIT/ML Vial) SQ SCH (21:00)
[2021-12-24] MEDS ORDERED: NON FORMULARY DRUG (Insulin Glargine 100 UNIT/ML Vial) SQ SCH (09:00)
[2021-12-24] MEDS ORDERED: PANTOPRAZOLE 40 MG TABLET PO SCH (09:00)
[2021-12-24] MEDS ORDERED: lisinopriL 10 MG TAB PO SCH (09:00)
[2021-12-24] MEDS ORDERED: METOPROLOL TARTRATE 50 MG TAB PO SCH (09:00)
[2021-12-24] MEDS ORDERED: ATORVASTATIN 80 MG TAB PO SCH (09:00)
== END 2021-12-23 14:02 | disposition home or self-care (01) ==
LOC: CATHCVL 07:25
PROVIDERS: ATTEND Internal Medicine Interventional Cardiology
DX: I25.10 Atherosclerotic heart disease of native coronary artery without angina pectoris (principal); Z20.822 Contact with and (suspected) exposure to COVID-19
CPT/HCPCS: 93458; 87635; C1894; C1769; J2001; J3010; J1644; Q9967

== ENCOUNTER → 2021-12-29 | Outpatient (CLI) | payer BC ==
--- NOTE | 2021-12-30 03:15 | MR ---
EXAMINATION TYPE: MR cervical spine wo con DATE OF EXAM: 12/29/2021 COMPARISON: None HISTORY: Chronic neck pain, BUE radiculopathy. Multiplanar multiecho imaging of the cervical spine without contrast. There is mild cervical kyphotic deformity. There is degenerative disc space narrowing throughout the cervical spine with decreased signal in the disks. There is posterior disc bulging and facet arthropa thy with multilevel cervical bony spinal stenosis. Spinal canal measures 6 mm at C3-4. Canal measures 5.3 mm at C4-5. Canal measures 5.7 mm at C5-6. Canal is 7.2 mm at C 67. There is a moderate posterio r disc herniation at T1-T2 with spinal stenosis that is 6 mm. There is some flattening of the cord. T his is worse on the left side. There is multilevel cervical facet arthropathy. There is no compression fracture. Brainstem appears i ntact. Cerebellum is intact. IMPRESSION: The level spondylotic changes and multilevel posterior disc herniation and spinal stenosis as above. Stenosis more severe at T1-T2. Stenosis also more severe at C4-5.
== END | disposition home or self-care (01) ==
LOC: RADMRIMAIN 16:15
PROVIDERS: ATTEND Physician Assistant
DX: M48.02 Spinal stenosis, cervical region (principal); M50.10 Cervical disc disorder with radiculopathy, unspecified cervical region; M48.04 Spinal stenosis, thoracic region; M47.22 Other spondylosis with radiculopathy, cervical region
CPT/HCPCS: 72141

== ENCOUNTER → 2022-05-30 | Outpatient (CLI) | payer BC ==
[2022-05-30 15:33] LABS: ALT 14 U/L (10-49); AST 17 U/L (14-35); African American GFR (CKD) 94.4 (60.0-200.0); Albumin 4.4 g/dL (3.8-4.9); Albumin/Globulin Ratio 1.69 (1.60-3.17); Alkaline Phosphatase 59 U/L (41-126); Blood Urea Nitrogen 23.5 mg/dL (9.0-27.0); Calcium 9.8 mg/dL (8.7-10.3); Carbon Dioxide 24.9 mmol/L (20.0-27.5); Chloride 103 mmol/L (96-109); Chol/HDL Ratio 4.69 Ratio; Globulin 2.6 g/dL (1.6-3.3); Glucose 200 mg/dL (70-110); LDL Cholesterol,Calculated 98.7 mg/dL (0.0-131.0); Non-African American GFR(CKD) 81.4 (60.0-200.0); Potassium 4.7 mmol/L (3.5-5.5); Sodium 137 mmol/L (135-145)
== END | disposition home or self-care (01) ==
LOC: LABWHC1 09:21
PROVIDERS: ATTEND Internal Medicine Interventional Cardiology
DX: E78.2 Mixed hyperlipidemia (principal)
CPT/HCPCS: 36415; 80053; 80061

== ENCOUNTER → 2022-12-16 | Outpatient (CLI) | payer BC ==
--- NOTE | 2022-12-16 18:48 | MR ---
EXAMINATION TYPE: MR lumbar spine wo con DATE OF EXAM: 12/16/2022 6:27 PM COMPARISON: None CLINICAL INDICATION:Male, 62 years old with history of M54.41 LUMBAGO WITH SCIATICA, RIGHT SIDE; Pain Lower Back and RT and LT buttocks x 2 years TECHNIQUE: Multi planar, multi sequence imaging was performed utilizing: T1-weighted, T2-weighted, a nd turbo inversion recovery imaging of the lumbar spine. IV Contrast: None. FINDINGS: Alignment: The lumbar vertebral bodies have preserved heights. Grade 1 anterolisthesis of L4 and L5.. Cord: The conus medullaris and the distal spinal cord appear unremarkable with regards to their signa l intensity and morphology. Bones/Discs: Scattered abnormal bone marrow edema is present most pronounced at L4-L5 but also involv ing the anterior superior aspect of L1 vertebrae endplate and the adjoining endplates of T8 11 and T1 2. Scattered osteophytes are present and disc space narrowing. Multilevel disc desiccation is present . T12-L1: Disc bulging without significant spinal canal stenosis. The neural foramen are patent. L1-L2: No evidence of significant spinal canal stenosis. Facet joint arthropathy mild bilateral neura l foraminal stenosis. L2-L3: No evidence of significant spinal canal stenosis. Facet joint arthropathy mild bilateral neura l foraminal stenosis. L3-L4: Right central disc extrusion which impresses upon the cauda equina and displaces it laterally to the left. There is severe spinal canal stenosis. There is facet joint arthropathy with moderate bi lateral neural foraminal stenosis. L4-L5: Abundance of epidural fat insistent with epidural lipomatosis which surrounds the cauda equina . Additionally there is grade 1 anterolisthesis with disc bulging and superimposed protrusion which d oes not impress upon the cauda equina. There is moderate to severe bilateral neural foraminal stenosi s secondary to facet joint arthropathy. L5-S1: Abundance of epidural fat insistent with epidural lipomatosis which surrounds the cauda equina . Facet joint arthropathy with moderate bilateral neural foraminal stenosis. Other findings: None. IMPRESSION: 1. L3-L4 disc extrusion which impresses and displaces the cauda equina leftward. This results in sev ere spinal canal stenosis. 2. Epidural lipomatosis extending from the superior endplate of L4 and inferiorly which bunches the cauda equina. 3. L4-L5 disc bulging with possible superimposed protrusion which does not appear to be affecting th e bunched cauda equina secondary to #2. 4. Disc degeneration and bony edema most pronounced at L4-L5 adjoining endplates, superior endplate o f L1 vertebral body as well as the adjoining endplates of T11-T12.
== END | disposition home or self-care (01) ==
LOC: RADMRIMAIN 17:04
PROVIDERS: ATTEND Orthopaedic Surgery
DX: M48.061 Spinal stenosis, lumbar region without neurogenic claudication (principal); M51.36 Other intervertebral disc degeneration, lumbar region; E88.2 Lipomatosis, not elsewhere classified; M54.41 Lumbago with sciatica, right side; M54.42 Lumbago with sciatica, left side; G89.29 Other chronic pain; R60.0 Localized edema
CPT/HCPCS: 72148

== ENCOUNTER → 2024-01-18 | Outpatient (CLI) | payer BC ==
[2024-01-18 11:11] LABS: Basophils # (A) 0.07 X 10*3/uL (0.00-0.10); Basophils % (A) 0.8 %; Eosinophils # (A) 0.15 X 10*3/uL (0.04-0.35); Eosinophils % (A) 1.7 %; HCT 35.6 % (39.6-50.0); HGB 12.6 g/dL (13.0-17.0); Lymphocytes # (A) 1.26 X 10*3/uL (0.90-5.00); Lymphocytes % (A) 14.5 %; MCH 35.6 pg (27.0-32.0); MCHC 35.4 g/dL (32.0-37.0); MCV 100.6 FL (80.0-97.0); Mean Platelet Volume 9.6 FL (9.5-12.2); Monocytes # (A) 0.78 X 10*3/uL (0.20-1.00); NRBC Per 100 WBC 0 X 10*3/uL (0.00-0.01); Neutrophils # (A) 6.39 X 10*3/uL (1.80-7.70); Neutrophils % (A) 73.8 %; Platelet Count 236 X 10*3/uL (140-440); RBC 3.54 X 10*6/uL (4.40-5.60); RDW 11.6 % (11.5-14.5); WBC 8.67 X 10*3/uL (4.50-10.00)
[2024-01-18 16:24] LABS: ALT 18 U/L (10-49); AST 26 U/L (14-35); Albumin 4.6 g/dL (3.8-4.9); Albumin/Globulin Ratio 1.77 Ratio (1.60-3.17); Alkaline Phosphatase 56 U/L (41-126); BUN/Creat Ratio 20.55 Ratio (12.00-20.00); Blood Urea Nitrogen 22.6 mg/dL (9.0-27.0); Calcium 9.4 mg/dL (8.7-10.3); Carbon Dioxide 22.2 mmol/L (21.6-31.8); Chloride 99 mmol/L (96-109); Chol/HDL Ratio 3.02 Ratio; Globulin 2.6 g/dL (1.6-3.3); Glucose 419 mg/dL (70-110); LDL Cholesterol,Calculated 76.8 mg/dL (0.0-131.0); Potassium 4.7 mmol/L (3.5-5.5); Sodium 137 mmol/L (135-145); Total Bilirubin 0.8 mg/dL (0.3-1.2); Total Protein 7.2 g/dL (6.2-8.2)
[2024-01-18 19:22] LABS: C-Peptide 0.35 ng/mL (0.81-3.85)
== END | disposition home or self-care (01) ==
LOC: LABWHC1 08:23
PROVIDERS: ATTEND Internal Medicine
DX: I10 Essential (primary) hypertension (principal); E78.2 Mixed hyperlipidemia; E10.21 Type 1 diabetes mellitus with diabetic nephropathy; Z12.5 Encounter for screening for malignant neoplasm of prostate; R53.83 Other fatigue
CPT/HCPCS: 80061; 80053; 84443; 85025; 83525; 82306; 84681; 82043; 82570; 83036; 36415; G0103

== ENCOUNTER → 2024-05-11 | Outpatient (CLI) | payer BC ==
--- NOTE | 2024-05-11 10:05 | XR ---
EXAMINATION TYPE: XR chest 2V DATE OF EXAM: 05/11/2024 COMPARISON: 04/26/2019 INDICATION: Acute cough TECHNIQUE: Frontal and lateral views of the chest are obtained. FINDINGS: The heart size is normal. The pulmonary vasculature is normal. There is some mild linear opacity at the right base. However, this appears to been present on the catherine or examination suggesting scarring. Mild atelectasis or less likely within the differential. There is chronic elevation of the right diaphragm. IMPRESSION: 1. No acute pulmonary process. Scarring suspected at the right base
[2024-05-11 12:54] LABS: HCT 32.3 % (39.6-50.0); HGB 11.3 g/dL (13.0-17.0); MCV 105.9 FL (80.0-97.0); Mean Platelet Volume 9.4 FL (9.5-12.2); NRBC Per 100 WBC 0 X 10*3/uL (0.00-0.01); Platelet Count 194 X 10*3/uL (140-440); RBC 3.05 X 10*6/uL (4.40-5.60); RDW 12.3 % (11.5-14.5); WBC 5.12 X 10*3/uL (4.50-10.00)
[2024-05-11 12:59] LABS: Chol/HDL Ratio 2.97 Ratio; LDL Cholesterol,Calculated 71.4 mg/dL (0.0-131.0)
[2024-05-11 13:00] LABS: ALT 14 U/L (10-49); AST 24 U/L (14-35); Albumin 4.5 g/dL (3.8-4.9); Albumin/Globulin Ratio 2.05 Ratio (1.60-3.17); Alkaline Phosphatase 46 U/L (41-126); BUN/Creat Ratio 20.92 Ratio (12.00-20.00); Blood Urea Nitrogen 27.2 mg/dL (9.0-27.0); Calcium 8.9 mg/dL (8.7-10.3); Carbon Dioxide 25.3 mmol/L (21.6-31.8); Chloride 101 mmol/L (96-109); Globulin 2.2 g/dL (1.6-3.3); Glucose 140 mg/dL (70-110); Potassium 4.7 mmol/L (3.5-5.5); Sodium 139 mmol/L (135-145); Total Bilirubin 0.4 mg/dL (0.3-1.2); Total Protein 6.7 g/dL (6.2-8.2)
[2024-05-11 13:20] LABS: Basophils # (A) 0.05 X 10*3/uL (0.00-0.10); Eosinophils # (A) 0.19 X 10*3/uL (0.04-0.35); Eosinophils % (A) 3.7 %; Lymphocytes % (A) 21.5 %; Macrocytosis (M) 2+; Monocytes # (A) 0.52 X 10*3/uL (0.20-1.00); Monocytes % (A) 10.2 %; Neutrophils # (A) 3.25 X 10*3/uL (1.80-7.70); Neutrophils % (A) 63.4 %
== END | disposition home or self-care (01) ==
LOC: LABWHC1 08:27
PROVIDERS: ATTEND Internal Medicine
DX: I13.10 Hypertensive heart and chronic kidney disease without heart failure, with stage 1 through stage 4 chronic kidney disease, or unspecified chronic kidney disease (principal); E10.21 Type 1 diabetes mellitus with diabetic nephropathy; E78.00 Pure hypercholesterolemia, unspecified; E10.22 Type 1 diabetes mellitus with diabetic chronic kidney disease; N18.9 Chronic kidney disease, unspecified; R05.1 Acute cough
CPT/HCPCS: 36415; 71046; 80053; 80061; 83036; 85025

== ENCOUNTER → 2024-05-24 | Outpatient (CLI) | payer BC ==
[2024-05-24 14:30] LABS: African American GFR (CKD) >90 (>60 ml/min/1.73 sqM); Blood Urea Nitrogen 20 mg/dL (9-20); Non-African American GFR(CKD) >90 (>60 ml/min/1.73 sqM)
--- NOTE | 2024-05-24 20:57 | CT ---
EXAMINATION TYPE: CT chest w con CT DLP: 243 mGycm, Automated exposure control for dose reduction was used. DATE OF EXAM: 05/24/2024 3:15 PM COMPARISON: 05/11/2024 CLINICAL INDICATION:Male, 64 years old with history of J44.9 CHRONIC OBSTRUCTIVE PULMONARY DISEASE; P HH, COPD TECHNIQUE: Multiple axial images were obtained through the chest. Sagittal and coronal reformats were created for review. Contrast used:100 mL of Isovue 300 with IV Contrast (None if empty) Oral contrast used: (None if empty) FINDINGS: LUNGS/ PLEURA: Streaky atelectasis in the lung bases. No focal consolidation, pneumothorax or pleural effusion. No significant emphysema changes. AIRWAY: Patent and unremarkable. HEART: Size within normal limits. Moderate to severe coronary artery atherosclerosis. MEDIASTINUM: No gross evidence of adenopathy. VASCULATURE: No aortic aneurysm. MUSCULOSKELETAL: No acute osseous abnormalities SOFT TISSUES/LYMPH NODES: Unremarkable. LOWER NECK: No significant findings. UPPER ABDOMEN: No significant findings. IMPRESSION: 1. No evidence for acute process. 2. No significant COPD identified 3. Moderate to severe coronary artery atherosclerosis.
== END | disposition home or self-care (01) ==
LOC: RADCTMAIN 13:47
PROVIDERS: ATTEND Internal Medicine
DX: J44.9 Chronic obstructive pulmonary disease, unspecified (principal); I25.10 Atherosclerotic heart disease of native coronary artery without angina pectoris
CPT/HCPCS: 82565; 84520; 71260; 36415; Q9967

== ENCOUNTER → 2024-09-14 | Outpatient (CLI) | payer BC ==
[2024-09-15 07:34] LABS: Basophils # (A) 0.04 X 10*3/uL (0.00-0.10); Basophils % (A) 0.6 %; Eosinophils # (A) 0.13 X 10*3/uL (0.04-0.35); Eosinophils % (A) 1.9 %; HCT 31.3 % (39.6-50.0); HGB 10.8 g/dL (13.0-17.0); Lymphocytes # (A) 1.58 X 10*3/uL (0.90-5.00); Lymphocytes % (A) 23.5 %; MCHC 34.5 g/dL (32.0-37.0); MCV 107.2 FL (80.0-97.0); Mean Platelet Volume 10.1 FL (9.5-12.2); Monocytes # (A) 0.55 X 10*3/uL (0.20-1.00); Monocytes % (A) 8.2 %; NRBC Per 100 WBC 0 X 10*3/uL (0.00-0.01); Neutrophils % (A) 65.5 %; Platelet Count 216 X 10*3/uL (140-440); RBC 2.92 X 10*6/uL (4.40-5.60); RDW 12.9 % (11.5-14.5); WBC 6.72 X 10*3/uL (4.50-10.00)
[2024-09-15 08:07] LABS: ALT 13 U/L (10-49); AST 24 U/L (14-35); Albumin 4.2 g/dL (3.8-4.9); Albumin/Globulin Ratio 1.75 Ratio (1.60-3.17); Alkaline Phosphatase 46 U/L (41-126); BUN/Creat Ratio 22.09 Ratio (12.00-20.00); Blood Urea Nitrogen 24.3 mg/dL (9.0-27.0); Calcium 8.9 mg/dL (8.7-10.3); Carbon Dioxide 26.3 mmol/L (21.6-31.8); Chloride 104 mmol/L (96-109); Globulin 2.4 g/dL (1.6-3.3); Glucose 125 mg/dL (70-110); Potassium 4.6 mmol/L (3.5-5.5); Sodium 143 mmol/L (135-145); Total Bilirubin 0.4 mg/dL (0.3-1.2); Total Protein 6.6 g/dL (6.2-8.2); VLDL Calculation 16.58 mg/dL (5.00-40.00)
== END | disposition home or self-care (01) ==
LOC: LABWHC1 09:08
PROVIDERS: ATTEND Internal Medicine
CPT/HCPCS: 36415; 80053; 80061; 82043; 82306; 82570; 83036; 84443; 85025

== ENCOUNTER 2024-10-06 14:27 | Inpatient (IN) | payer BC ==
[2024-10-06] MEDS: ONDANSETRON 4 MG/2 ML VIAL IVP STA (14:45)
[2024-10-06] MEDS: ACETAMINOPHEN TAB 500 MG TAB PO STA (14:46)
[2024-10-06] MEDS: IBUPROFEN 600 MG TAB PO STA (14:46)
[2024-10-06] MEDS: SODIUM CHLORIDE 0.9% 500 ML 500 ML IV SCH (14:49)
[2024-10-06 14:51] LABS: HCT 36.6 % (39.0-53.0); HGB 12.5 gm/dL (13.0-17.5); MCH 36.8 pg (25.0-35.0); MCHC 34.1 g/dL (31.0-37.0); MCV 107.8 fL (80.0-100.0); Macrocytosis Moderate; Mean Platelet Volume 8.1; Platelet Count 185 k/uL (150-450); RDW 12.6 % (11.5-15.5); WBC 10.7 k/uL (3.8-10.6)
[2024-10-06 15:01] LABS: AST 401 U/L (17-59); African American GFR (CKD) 23 (>60 ml/min/1.73 sqM); Albumin 3.4 g/dL (3.5-5.0); Alcohol <10 mg/dL; Alkaline Phosphatase 61 U/L (38-126); Anion Gap 15 mmol/L; Blood Urea Nitrogen 49 mg/dL (9-20); Calcium 7.6 mg/dL (8.4-10.2); Carbon Dioxide 13 mmol/L (22-30); Chloride 98 mmol/L (98-107); Glucose 169 mg/dL (74-99); Lipase 25 U/L (23-300); Magnesium 1.1 mg/dL (1.6-2.3); Non-African American GFR(CKD) 20 (>60 ml/min/1.73 sqM); Sodium 126 mmol/L (137-145); Total Bilirubin 0.8 mg/dL (0.2-1.3); Total Protein 6.2 g/dL (6.3-8.2)
[2024-10-06 15:03] LABS: INR 1.3 (<1.2); Prothrombin Time 13.8 sec (10.0-12.5)
[2024-10-06 15:07] LABS: ALT 65 U/L (4-49)
--- NOTE | 2024-10-06 15:17 | ED ---
General Adult HPI - General Source: patient, RN notes reviewed, old records reviewed Mode of arrival: EMS Limitations: no limitations <Mauricio Headley - Last Filed: 10/06/24 16:25> <Lester Baltazar - Last Filed: 10/06/24 18:27> - General Chief complaint: Fall Stated complaint: NVD, Weakness Time Seen by Provider: 10/06/24 14:30 - History of Present Illness Initial comments: This is a 64-year-old male who presents to the emergency department complaining of nausea and vomiting and not feeling well today the came home and found the patient face down on the ground with contusion to his forehead and abrasion to his knee and some bloody toes. Patient is a daily drinker he states he has not drank in 2 days. Patient was also having some diarrhea. Patient denies any chest pain or difficulty breathing. Patient also is a smoker (Mauricio Headley) - Related Data Home Medications Medication Instructions Recorded Confirmed Aspirin [Adult Low Dose Aspirin EC] 81 mg PO DAILY 08/29/18 10/06/24 Insulin Aspart [NovoLOG] See Protocol SQ AC-TID 08/29/18 10/06/24 Insulin Glargine [Lantus Vial] 20 unit SQ DAILY 08/29/18 10/06/24 Pantoprazole Sodium [Protonix] 40 mg PO DAILY 08/29/18 10/06/24 lisinopriL [Zestril] 10 mg PO DAILY 08/29/18 10/06/24 Metoprolol Tartrate [Lopressor] 50 mg PO BID 03/02/21 10/06/24 HYDROcodone/APAP 7.5-325MG [Lima 1 tab PO BID PRN 10/06/24 10/06/24 7.5-325] Previous Rx's Medication Instructions Recorded Atorvastatin [Lipitor] 80 mg PO DAILY #90 tab 10/26/18 Allergies Allergy/AdvReac Type Severity Reaction Status Date / Time No Known Allergies Allergy Verified 10/06/24 14:43 Review of Systems ROS Other: All systems not noted in ROS Statement are negative. <Mauricio Headley - Last Filed: 10/06/24 16:25> ROS Other: All systems not noted in ROS Statement are negative. <Lester Baltazar - Last Filed: 10/06/24 18:27> ROS Statement: Those systems with pertinent positive or pertinent negative responses have been documented in the HPI. Past Medical History Past Medical History: Coronary Artery Disease (CAD), Diabetes Mellitus, GERD/Reflux, Hyperlipidemia, Hypertension, Myocardial Infarction ([place]), Osteoarthritis (OA) Additional Past Medical History / Comment(s): arthritis in fingers, knees, and neck area; NT in bilat arms Last Myocardial Infarction Date:: 2009 History of Any Multi-Drug Resistant Organisms: None Reported Past Surgical History: Heart Catheterization With Stent Additional Past Surgical History / Comment(s): ANAL FISSURE REPAIR, 2 cardiac stents, bhargavi cataracts. Pain proc Past Anesthesia/Blood Transfusion Reactions: No Reported Reaction Date of Last Stent Placement:: 2015 Past Psychological History: No Psychological Hx Reported Smoking Status: Former smoker Past Alcohol Use History: Daily - Past Family History Father Family Medical History: Cancer Additional Family Medical History / Comment(s): PANCREATIC <Mauricio Headley - Last Filed: 10/06/24 16:25> General Exam Limitations: no limitations <Mauricio Headley - Last Filed: 10/06/24 16:25> - General Exam Comments Initial Comments: GENERAL: Patient is well-developed and well-nourished. Patient is nontoxic and well- hydrated and is in mild distress. ENT: Neck is soft and supple. No significant lymphadenopathy is noted. Oropharynx is clear. Dry mucous membranes. Neck has full range of motion without eliciting any pain. Patient has a contusion to the forehead on the right side EYES: The sclera were anicteric and conjunctiva were pink and moist. Extraocular movements were intact and pupils were equal round and reactive to light. Eyelids were unremarkable. PULMONARY: Unlabored respirations. Good breath sounds bilaterally. No audible rales rhonchi or wheezing was noted. CARDIOVASCULAR: There is a regular rate and rhythm without any murmurs gallops or rubs. ABDOMEN: Soft and nontender with normal bowel sounds. SKIN: Skin is clear with no lesions or rashes and otherwise unremarkable. NEUROLOGIC: Patient is alert and oriented x3. Cranial nerves II through XII are grossly intact. Motor and sensory are also intact. Normal speech, volume and content. Symmetrical smile. MUSCULOSKELETAL: Patient has a contusion to the left knee and some blood from the fourth and first toe on the left. LYMPHATICS: No significant lymphadenopathy is noted PSYCHIATRIC: Normal psychiatric evaluation. (Mauricio Headley) Course Vital Signs 10/06/24 10/06/24 10/06/24 14:30 15:35 15:50 Temperature 103.1 F H 98.9 F Pulse Rate 110 H 114 H 102 H Respiratory 18 28 H 26 H Rate Blood Pressure 128/109 85/59 86/58 O2 Sat by Pulse 93 L 94 L Oximetry 10/06/24 10/06/24 10/06/24 15:55 16:01 16:48 Temperature 99.7 F H Pulse Rate 98 100 102 H Respiratory 24 26 H 18 Rate Blood Pressure 68/52 79/38 82/58 O2 Sat by Pulse 96 100 Oximetry 10/06/24 17:31 Temperature Pulse Rate 99 Respiratory 18 Rate Blood Pressure 79/51 O2 Sat by Pulse 93 L Oximetry Procedures - Central Line Placement Right Femoral Consent Obtained: emergent situation Patient Placed on Monitor/Pulse Ox: Yes MD Prep: mask, gloves Central Line Prep: Chlorhexidine scrub Local Anesthesia Used: Lidocaine 1% Amount of Anesthesia Used (mls): 3 Ultrasound Used for Placement: No Central Line Lumen Inserted: triple Bloods Obtained for Lab: Yes Central Line Position: good blood return, all ports aspirated, flushed, capped, sutured in place with nylon Patient Tolerated Procedure: well, no complications Complications: none <Lester Baltazar - Last Filed: 10/06/24 18:27> Medical Decision Making - Lab Data Result diagrams: 10/06/24 14:42 10/06/24 14:42 <Mauricio Headley - Last Filed: 10/06/24 16:25> - Lab Data Result diagrams: 10/06/24 14:42 10/06/24 17:12 <Lester Baltazar - Last Filed: 10/06/24 18:27> - Medical Decision Making EKG is interpreted by myself. EKG shows sinus tachycardia at 107 bpm TN was under 57 QRS is 89 QT interval is 304. QTc interval is 366. Was pt. sent in by a medical professional or institution (, PA, MOTOR EQUIPMENT SERGEANT, urgent care, hospital, or usp...) When possible be specific @ -[No] Did you speak to anyone other than the patient for history (EMS, parent, family, police, friend...)? What history was obtained from this source @ -[No] Did you review nursing and triage notes (agree or disagree)? Why? @ -[I reviewed and agree with nursing and triage notes] Were old charts reviewed (outside hosp., previous admission, EMS record, old EKG, old radiological studies, urgent care reports/EKG's, usp records)? Report findings @ -[No old charts were reviewed] Differential Diagnosis? @ -Differential Fever: Pneumonia, viral URI, endocarditis, myocarditis, pericarditis, otitis, sinusitis, peritonsillar Abscess, retropharyngeal Abscess, epiglottitis, perito nitis, appendicitis, Shauna cystitis, diverticulitis, hepatitis, colitis, UTI, PID, TOA, pyelonephritis, prostatitis, epididymitis, meningitis, encephalitis, pulmonary embolism, CVA, thyroid storm, pancreatitis, adrenal crisis, cavernous sinus thrombosis, this is not meant to be an all-inclusive list. EKG interpreted by me (3pts min.). @ -[As above] X-rays interpreted by me (1pt min.). @ -[None done] CT interpreted by me (1pt min.). @ -[None done] U/S interpreted by me (1pt. min.). @ -[None done] What testing was considered but not performed or refused? (CT, X-rays, U/S, labs)? Why? @ -[None] What meds were considered but not given or refused? Why? @ -[None] Did you discuss the management of the patient with other professionals (professionals i.e. , PA, MOTOR EQUIPMENT SERGEANT, lab, RT, psych nurse, social media marketing specialist, retail shift supervisor, teacher, business development officer, comp field case manager)? Give summary @ -[No] Was smoking cessation discussed for >3mins.? @ -[No] Was critical care preformed (if so, how long)? @ -[No] Were there social determinants of health that impacted care today? How? (Homelessness, low income, unemployed, alcoholism, drug addiction, transportation, low edu. Level, literacy, decrease access to med. care, care home, rehab)? @ -[No] Was there de-escalation of care discussed even if they declined (Discuss DNR or withdrawal of care, Hospice)? DNR status @ -[No] What co-morbidities impacted this encounter? (DM, HTN, Smoking, COPD, CAD, Cancer, CVA, ARF, Chemo, Hep., AIDS, mental health diagnosis, sleep apnea, mo rbid obesity)? @ -[None] Was patient admitted / discharged? Hospital course, mention meds given and route, prescriptions, significant lab abnormalities, going to OR and other pertinent info. @ -Patient received 2 g of mag sulfate. Patient received 2 L of IV fluid. Patient received 2 g of Rocephin. Patient was placed on vancomycin. Patient care will be taken over by Dr. Baltazar for 30 (Mauricio Headley) Patient's care was signed out at shift change awaiting imaging including x-rays and CT imaging of the brain. CT brain negative for intracranial hemorrhage or mass effect, CT cervical spine negative for fracture or subluxation. Chest x- ray, bilateral knees x-ray and x-ray are negative for traumatic injury. Patient found to be in rhabdo with a CK of 18,000. He is in renal failure and is an uric in the emergency department. Blake catheter is placed. Patient started on a bicarb drip. He has a elevated lactic acid which I assume is from both hypovolemic shock, possible septic shock and possible seizure from alcohol withdrawal. Patient given a total of 3.5 L of normal saline. He started on broad-spectrum antibiotics. Placed on CIWA scale. Admitted to the ICU. Case discussed with [facility] hospitalist and Dr. Fara burden for the ICU. Procedure: Central line placement Critical care: 35 minutes Diagnosis: Multifactorial shock, alcohol withdrawal, lactic acidosis, rhabdomyolysis (Lester Baltazar) - Lab Data Lab Results 10/06/24 10/06/24 10/06/24 Range/Units 14:42 14:42 14:42 WBC 10.7 H (3.8-10.6) k/uL RBC 3.40 L (4.30-5.90) m/uL Hgb 12.5 L (13.0-17.5) gm/dL Hct 36.6 L (39.0-53.0) % MCV 107.8 H (80.0-100.0) fL MCH 36.8 H (25.0-35.0) pg MCHC 34.1 (31.0-37.0) g/dL RDW 12.6 (11.5-15.5) % Plt Count 185 (150-450) k/uL MPV 8.1 Neutrophils % (Manual) 77 % Band Neuts % (Manual) 16 % Lymphocytes % (Manual) 1 % Monocytes % (Manual) 2 % Metamyelocytes % 4 % Myelocytes % 1 % Neutrophils # (Manual) 9.90 H (1.3-7.7) k/uL Lymphocytes # (Manual) 0.11 L (1.0-4.8) k/uL Monocytes # (Manual) 0.21 (0-1.0) k/uL Metamyelocytes # (Man) 0.43 H (0) k/uL Myelocytes # (Manual) 0.11 H (0) k/uL Nucleated RBCs 0 (0-0) /100 WBC Manual Slide Review Performed Toxic Granulation Present Toxic Vacuolation Present Macrocytosis Moderate PT 13.8 H (10.0-12.5) sec INR 1.3 H (<1.2) APTT 44.0 H (22.0-30.0) sec Sodium 126 L (137-145) mmol/L Potassium 5.0 (3.5-5.1) mmol/L Chloride 98 (98-107) mmol/L Carbon Dioxide 13 L (22-30) mmol/L Anion Gap 15 mmol/L BUN 49 H (9-20) mg/dL Creatinine 3.18 H (0.66-1.25) mg/dL Est GFR (CKD-EPI)AfAm 23 (>60 ml/min/1.73 sqM) Est GFR (CKD-EPI)NonAf 20 (>60 ml/min/1.73 sqM) Glucose 169 H (74-99) mg/dL Lactic Ac Sepsis Rflx Plasma Lactic Acid Luis (0.7-2.0) mmol/L Calcium 7.6 L (8.4-10.2) mg/dL Magnesium 1.1 L (1.6-2.3) mg/dL Total Bilirubin 0.8 (0.2-1.3) mg/dL AST 401 H (17-59) U/L ALT 65 H (4-49) U/L Alkaline Phosphatase 61 (38-126) U/L Creatine Kinase 68873 H* (55-170) U/L Total Protein 6.2 L (6.3-8.2) g/dL Albumin 3.4 L (3.5-5.0) g/dL Lipase 25 (23-300) U/L Serum Alcohol <10 mg/dL Influenza Type A (PCR) (Not Detectd) Influenza Type B (PCR) (Not Detectd) RSV (PCR) (Not Detectd) SARS-CoV-2 (PCR) (Not Detectd) 10/06/24 10/06/24 10/06/24 Range/Units 14:42 15:48 15:55 WBC (3.8-10.6) k/uL RBC (4.30-5.90) m/uL Hgb (13.0-17.5) gm/dL Hct (39.0-53.0) % MCV (80.0-100.0) fL MCH (25.0-35.0) pg MCHC (31.0-37.0) g/dL RDW (11.5-15.5) % Plt Count (150-450) k/uL MPV Neutrophils % (Manual) % Band Neuts % (Manual) % Lymphocytes % (Manual) % Monocytes % (Manual) % Metamyelocytes % % Myelocytes % % Neutrophils # (Manual) (1.3-7.7) k/uL Lymphocytes # (Manual) (1.0-4.8) k/uL Monocytes # (Manual) (0-1.0) k/uL Metamyelocytes # (Man) (0) k/uL Myelocytes # (Manual) (0) k/uL Nucleated RBCs (0-0) /100 WBC Manual Slide Review Toxic Granulation Toxic Vacuolation Macrocytosis PT (10.0-12.5) sec INR (<1.2) APTT (22.0-30.0) sec Sodium (137-145) mmol/L Potassium (3.5-5.1) mmol/L Chloride (98-107) mmol/L Carbon Dioxide (22-30) mmol/L Anion Gap mmol/L BUN (9-20) mg/dL Creatinine (0.66-1.25) mg/dL Est GFR (CKD-EPI)AfAm (>60 ml/min/1.73 sqM) Est GFR (CKD-EPI)NonAf (>60 ml/min/1.73 sqM) Glucose (74-99) mg/dL Lactic Ac Sepsis Rflx Y Plasma Lactic Acid Luis 6.9 H* (0.7-2.0) mmol/L Calcium (8.4-10.2) mg/dL Magnesium (1.6-2.3) mg/dL Total Bilirubin (0.2-1.3) mg/dL AST (17-59) U/L ALT (4-49) U/L Alkaline Phosphatase (38-126) U/L Creatine Kinase (55-170) U/L Total Protein (6.3-8.2) g/dL Albumin (3.5-5.0) g/dL Lipase (23-300) U/L Serum Alcohol mg/dL Influenza Type A (PCR) Not Detected (Not Detectd) Influenza Type B (PCR) Not Detected (Not Detectd) RSV (PCR) Not Detected (Not Detectd) SARS-CoV-2 (PCR) Not Detected (Not Detectd) 10/06/24 10/06/24 Range/Units 17:12 17:12 WBC (3.8-10.6) k/uL RBC (4.30-5.90) m/uL Hgb (13.0-17.5) gm/dL Hct (39.0-53.0) % MCV (80.0-100.0) fL MCH (25.0-35.0) pg MCHC (31.0-37.0) g/dL RDW (11.5-15.5) % Plt Count (150-450) k/uL MPV Neutrophils % (Manual) % Band Neuts % (Manual) % Lymphocytes % (Manual) % Monocytes % (Manual) % Metamyelocytes % % Myelocytes % % Neutrophils # (Manual) (1.3-7.7) k/uL Lymphocytes # (Manual) (1.0-4.8) k/uL Monocytes # (Manual) (0-1.0) k/uL Metamyelocytes # (Man) (0) k/uL Myelocytes # (Manual) (0) k/uL Nucleated RBCs (0-0) /100 WBC Manual Slide Review Toxic Granulation Toxic Vacuolation Macrocytosis PT (10.0-12.5) sec INR (<1.2) APTT (22.0-30.0) sec Sodium 125 L (137-145) mmol/L Potassium 4.4 (3.5-5.1) mmol/L Chloride 104 (98-107) mmol/L Carbon Dioxide 12 L (22-30) mmol/L Anion Gap 9 mmol/L BUN 48 H (9-20) mg/dL Creatinine 2.96 H (0.66-1.25) mg/dL Est GFR (CKD-EPI)AfAm 25 (>60 ml/min/1.73 sqM) Est GFR (CKD-EPI)NonAf 22 (>60 ml/min/1.73 sqM) Glucose 104 H (74-99) mg/dL Lactic Ac Sepsis Rflx Plasma Lactic Acid Luis 5.0 H* (0.7-2.0) mmol/L Calcium 6.4 L* (8.4-10.2) mg/dL Magnesium (1.6-2.3) mg/dL Total Bilirubin (0.2-1.3) mg/dL AST (17-59) U/L ALT (4-49) U/L Alkaline Phosphatase (38-126) U/L Creatine Kinase (55-170) U/L Total Protein (6.3-8.2) g/dL Albumin (3.5-5.0) g/dL Lipase (23-300) U/L Serum Alcohol mg/dL Influenza Type A (PCR) (Not Detectd) Influenza Type B (PCR) (Not Detectd) RSV (PCR) (Not Detectd) SARS-CoV-2 (PCR) (Not Detectd) Critical Care Time Critical Care Time: Yes Total Critical Care Time: 35 <Lester Baltazar - Last Filed: 10/06/24 18:27> Disposition <Mauricio Headley - Last Filed: 10/06/24 16:25> Is patient prescribed a controlled substance at d/c from ED?: No Time of Disposition: 18:27 <Lester Baltazar - Last Filed: 10/06/24 18:27> Clinical Impression: Rhabdomyolysis, Shock, Alcohol withdrawal Disposition: ADMITTED IP TO THIS HOSP Condition: Serious Referrals: Justina Carrion MD [Primary Care Provider] - 1-2 days
[2024-10-06 15:19] LABS: Band Neutrophils % 16 %; Lymphocytes # (M) 0.11 k/uL (1.0-4.8); Metamyelocytes # (M) 0.43 k/uL (0); Metamyelocytes % 4 %; Monocytes # (M) 0.21 k/uL (0-1.0); Myelocytes # (M) 0.11 k/uL (0); Myelocytes % 1 %; Neutrophils % (M) 77 %; Nucleated Red Blood Cells 0 /100 WBC (0-0); Total Cells Counted 200; Toxic Granulation Present; Toxic Vacuolation Present
[2024-10-06] MEDS: HYDROmorphone 0.5 MG/0.5 ML SYRINGE IVP STA (15:38)
[2024-10-06] MEDS: MAGNESIUM SULFATE-D5W PMX 1 GM in DEXTROSE/WATER 1 100ML.BAG IVPB SCH (15:44)
[2024-10-06] MEDS ORDERED: VANCOMYCIN IV PER PHARMACY 1 EACH MISC MISCELLANE PRN (15:55)
[2024-10-06 16:12] LABS: Creatine Kinase 18113 U/L (55-170)
--- NOTE | 2024-10-06 16:32 | CT ---
EXAMINATION TYPE: CT brain cspine wo con DATE OF EXAM: 10/06/2024 4:18 PM COMPARISON: Previous MRI study dated 12/29/2021. CLINICAL INDICATION: Male, 64 years old with history of Trauma; [facility] TECHNIQUE: Brain: Multiple axial CT images of the brain were obtained without IV contrast. Cspine: Axial CT images from the skull base to the inferior aspect of T2 we obtained without intraven ous contrast. Coronal and sagittal reformatted images were also reviewed. . CT DLP: 1393.4 mGycm, Automated exposure control for dose reduction was used. FINDINGS: Brain: No acute intracranial hemorrhage, significant midline shift or mass effect. Ventricles and sulci appe ar within normal limits. Periventricular and subcortical white matter hypoattenuation likely affectin g microvascular ischemic disease. Otherwise, carr-white matter differentiation appears acutely preser scott. Possible small frontal scalp hematoma. No sagittal extra axial fluid collection. Basal cisterns appear patent. No depressed calvarial fracture. Bilateral mucosal thickening of the maxillary sinuses . Mastoid air cells appear patent. Ethmoid air cell mucosal thickening also noted. Previous bilateral cataract lens extraction noted. Cervical spine: No prevertebral soft tissue swelling. Partially visualized neck densities no pathologic cervical dannie n lymphadenopathy. Partially visualized lung apices appear clear. Normal lordotic curvature of the cervical spine. There is grade 1 anterolisthesis of C4 on C5. Anteri or cervical spinal fusion hardware visualized spanning C3-C6 with multilevel intervertebral disc spac er device is noted. No definite periprosthetic lucency identified. Multilevel intervertebral disc spa ce loss at remaining levels as well as facet arthropathy/uncovertebral hypertrophy contributing to re cords varying degrees of neural foraminal and spinal canal narrowing. No acute fracture or traumatic subluxation appreciated. IMPRESSION: 1. No acute intracranial process. 2. No acute fracture or traumatic subluxation of the cervical spine. [facility], , 10/06/2024 4:29 PM
--- NOTE | 2024-10-06 16:39 | XR ---
EXAMINATION TYPE: XR chest 2V DATE OF EXAM: 10/06/2024 4:35 PM COMPARISON: Previous CT chest study dated 7 03/26/2024. CLINICAL INDICATION: Male, 64 years old with history of Fever; [facility] TECHNIQUE: XR chest 2V Frontal and lateral views of the chest. FINDINGS: Cardiac silhouette within normal limits for size. Low lung volumes. Right middle lobe scarring/atelectasis. A circulation of the right hemidiaphragm. Otherwise, no acute focal consolidation. No appreciable pneumothorax. IMPRESSION: Right middle lobe scarring/atelectasis. Otherwise, no acute abnormality in chest. [facility], , 10/06/2024 4:37 PM
--- NOTE | 2024-10-06 16:43 | XR ---
EXAMINATION TYPE: XR foot complete LT DATE OF EXAM: 10/06/2024 4:35 PM COMPARISON: None available. CLINICAL INDICATION: Male, 64 years old with history of Foot pain; [facility] TECHNIQUE: XR foot complete LT examined in the AP, oblique, and lateral projections. FINDINGS: Vascular calcifications noted. Interphalangeal degenerative changes. Small ossific fragment adjacent to the base of the second digit proximal phalanx could reflect age-indeterminate avulsion fracture. R ecommend correlation with point tenderness. Otherwise no additional evidence of acute fracture or dis location. No focal osseous erosion or periosteal reaction. Joint alignment is maintained. No unexpect ed metallic foreign body. IMPRESSION: Small ossific fragment adjacent to the base of the second digit proximal phalanx which could reflect an age indeterminant small avulsion fracture. Correlate with point tenderness. Otherwise, no addition al evidence of acute fracture or dislocation in the left foot. [facility], , 10/06/2024 4:41 PM
--- NOTE | 2024-10-06 16:45 | XR ---
EXAMINATION TYPE: XR knee complete bilateral DATE OF EXAM: 10/06/2024 4:35 PM COMPARISON: None available. CLINICAL INDICATION: Male, 64 years old with history of Knee pain; [facility] TECHNIQUE: XR knee complete bilateral views submitted.. FINDINGS: No acute fracture or dislocation. Chondral calcinosis in the medial lateral compartments. B asilar opacifications noted. Departmental degenerative osteoarthritis, most pronounced in the medial compartment where there is moderate joint space loss. No sizable suprapatellar joint effusion. Prepat ellar soft tissue edema/swelling. IMPRESSION: 1. No acute fracture or dislocation in left knee. 2. Check compartmental degenerative osteoarthritis as above. 3. Chondrocalcinosis in the medial and lateral compartments. [facility], , 10/06/2024 4:43 PM
[2024-10-06] MEDS: cefTRIAXone IN SWFI 1,000 MG/10 ML SYRINGE IVP STA ×2 (16:50→16:56)
[2024-10-06] MEDS: LORazepam 2 MG/ML INJ IV STA (16:58)
[2024-10-06] MEDS: SODIUM CHLORIDE 0.9% 1,000 ML IV STA (17:05)
[2024-10-06] MEDS: VANCOMYCIN 1,500 MG in SODIUM CHLORIDE 0.9% 500 ML 500 ML IVPB ONE (17:14)
[2024-10-06] MEDS: DEXTROSE 5% IN WATER 1,000 ML with SODIUM BICARB (1 MEQ/ML) 150 ML IV SCH (17:28)
[2024-10-06 17:37] LABS: African American GFR (CKD) 25 (>60 ml/min/1.73 sqM); Anion Gap 9 mmol/L; Blood Urea Nitrogen 48 mg/dL (9-20); Carbon Dioxide 12 mmol/L (22-30); Chloride 104 mmol/L (98-107); Glucose 104 mg/dL (74-99); Non-African American GFR(CKD) 22 (>60 ml/min/1.73 sqM); Sodium 125 mmol/L (137-145)
[2024-10-06 17:53] LABS: Calcium 6.4 mg/dL (8.4-10.2); Potassium 4.4 mmol/L (3.5-5.1)
[2024-10-06] MEDS ORDERED: NALOXONE 0.4 MG/ML 1 ML VIAL IV PRN (18:19)
[2024-10-06] MEDS ORDERED: LORazepam 2 MG/ML INJ IV PRN (18:27)
[2024-10-06] MEDS: CALCIUM GLUCONATE IN NACL 1 GM in SALINE 1 100ML.BAG IVPB ONE (18:35)
[2024-10-06] MEDS: PANTOPRAZOLE 40 MG/10 ML VIAL IVP STA (18:36)
[2024-10-06] MEDS: NOREPINEPHRINE 32 MG in SODIUM CHLORIDE 0.9% 218 ML IV ONE (18:48)
[2024-10-06] MEDS: THIAMINE 100 MG/ML 2 ML VIAL IM STA (19:13)
[2024-10-06 19:22] LABS: Amorphous Sediment,Urine Moderate /hpf; Appearance,Urine Turbid (Clear); Bacteria,Urine Rare /hpf; Bilirubin,Urine Negative (Negative); Blood,Urine Large (Negative); Color,Urine Yellow; Glucose,Urine (UA) Trace (Negative); Hyaline Casts,Urine 2 /lpf (0-2); Ketones,Urine Trace (Negative); Leukocyte Esterase,Urine Moderate (Negative); Mucus,Urine Rare /hpf; Nitrite,Urine Negative (Negative); PH, Urine 5.5 (5.0-8.0); Protein,Urine 2+ (Negative); RBC,Urine 12 /hpf (0-5); Specific Gravity,Urine 1.017 (1.001-1.035); Squamous Epithelial Cell,Urine 2 /hpf (0-4); Urobilinogen,Urine <2.0 mg/dL (<2.0); WBC,Urine 28 /hpf (0-5)
[2024-10-06] MEDS: LORazepam 2 MG/ML INJ IV PRN (20:59)
[2024-10-06 21:34] LABS: African American GFR (CKD) 22 (>60 ml/min/1.73 sqM); Anion Gap 10 mmol/L; Blood Urea Nitrogen 51 mg/dL (9-20); Calcium 6.7 mg/dL (8.4-10.2); Carbon Dioxide 12 mmol/L (22-30); Chloride 103 mmol/L (98-107); Glucose 110 mg/dL (74-99); Non-African American GFR(CKD) 19 (>60 ml/min/1.73 sqM); Potassium 4.5 mmol/L (3.5-5.1); Sodium 125 mmol/L (137-145)
[2024-10-06] MEDS: SODIUM CHLORIDE 0.9% 1,000 ML IV SCH (21:42)
[2024-10-06 22:20] LABS: Glucose,Whole Blood 138 mg/dL (70-110)
[2024-10-07 05:38] LABS: African American GFR (CKD) 24 (>60 ml/min/1.73 sqM); Anion Gap 11 mmol/L; Blood Urea Nitrogen 53 mg/dL (9-20); Calcium 6.6 mg/dL (8.4-10.2); Carbon Dioxide 16 mmol/L (22-30); Chloride 99 mmol/L (98-107); Glucose 157 mg/dL (74-99); Non-African American GFR(CKD) 20 (>60 ml/min/1.73 sqM); Potassium 3.8 mmol/L (3.5-5.1); Sodium 126 mmol/L (137-145)
[2024-10-07 06:36] LABS: HCT 33.9 % (39.0-53.0); HGB 11.6 gm/dL (13.0-17.5); MCH 36.3 pg (25.0-35.0); MCHC 34.2 g/dL (31.0-37.0); MCV 106.1 fL (80.0-100.0); Macrocytosis Moderate; Mean Platelet Volume 8.7; Platelet Count 111 k/uL (150-450); RBC 3.19 m/uL (4.30-5.90); WBC 5.1 k/uL (3.8-10.6)
[2024-10-07 06:41] LABS: Glucose,Whole Blood 191 mg/dL (70-110)
[2024-10-07 07:48] LABS: Band Neutrophils % 17 %; Lymphocytes # (M) 0.05 k/uL (1.0-4.8); Metamyelocytes % 2 %; Monocytes # (M) 0.05 k/uL (0-1.0); Neutrophils % (M) 79 %; Nucleated Red Blood Cells 0 /100 WBC (0-0); Total Cells Counted 100
[2024-10-07] MEDS ORDERED: Potassium Replacement Protocol 1 EACH MISC MISCELLANE PRN (08:28)
[2024-10-07] MEDS: POTASSIUM CHLORIDE 10 MEQ in WATER FOR INJECTION 1 100ML.BAG IVPB SCH (08:40)
--- NOTE | 2024-10-07 08:55 | P.NPCON ---
History of Present Illness - Reason for Consult acute renal failure - History of Present Illness Reason for consultation: Acute kidney injury History of present illness: Patient is a 64-year-old male seen in renal consultation for acute kidney injury. Patient's creatinine in May 2024 was low at 0.79 and was 1.1 dated September 14, 2024. This admission creatinine was 3.18 and was 3.12 this morning. Patient is not a very reliable historian and history was obtained mostly from the chart. It is noted the patient was having nausea and vomiting and was found down by his . He was noted to have a contusion to his forehead as well as injury to his knee and toes. Patient does have history of alcohol abuse. Patient has received 4 L of normal saline and is currently maintained on bicarb drip as well as normal saline for maintenance fluids. He was on Levophed as well but is now discontinued. Patient does have history of diabetes. Lisinopril is currently held. Patient noted to be febrile and blood cultures are positive for group A strep. Patient also noted to be in rhabdomyolysis with CK level of 18,113 on admission. Patient is nonoliguric with urine output of about 60 to 75 cc/h. Vital signs are stable. General: No acute distress. HEENT: Head exam is unremarkable. On nasal cannula. LUNGS: No audible rhonchi or wheezes. HEART: Rate and Rhythm are regular. ABDOMEN: No distention. EXTREMITITES: No edema. Past Medical History Past Medical History: Coronary Artery Disease (CAD), Diabetes Mellitus, GERD/Reflux, Hyperlipidemia, Hypertension, Myocardial Infarction ([place]), Osteoarthritis (OA) Additional Past Medical History / Comment(s): arthritis in fingers, knees, and neck area; NT in bilat arms Last Myocardial Infarction Date:: 2009 History of Any Multi-Drug Resistant Organisms: None Reported Past Surgical History: Heart Catheterization With Stent Additional Past Surgical History / Comment(s): ANAL FISSURE REPAIR, 2 cardiac stents, bhargavi cataracts. Pain proc Past Anesthesia/Blood Transfusion Reactions: No Reported Reaction Date of Last Stent Placement:: 2015 Past Psychological History: No Psychological Hx Reported Smoking Status: Former smoker Past Alcohol Use History: Daily - Past Family History Father Family Medical History: Cancer Additional Family Medical History / Comment(s): PANCREATIC Medications and Allergies Home Medications Medication Instructions Recorded Confirmed Type Aspirin [Adult Low Dose Aspirin EC] 81 mg PO DAILY 10/10/18 11/17/24 History Insulin Aspart [NovoLOG] See Protocol SQ AC-TID 08/29/18 10/06/24 History Insulin Glargine [Lantus Vial] 20 unit SQ DAILY 08/29/18 10/06/24 History Pantoprazole Sodium [Protonix] 40 mg PO DAILY 08/29/18 10/06/24 History lisinopriL [Zestril] 10 mg PO DAILY 08/29/18 10/06/24 History Atorvastatin [Lipitor] 80 mg PO DAILY #90 tab 10/26/18 10/06/24 Rx Metoprolol Tartrate [Lopressor] 50 mg PO BID 03/02/21 10/06/24 History HYDROcodone/APAP 7.5-325MG [[place] 1 tab PO BID PRN 10/06/24 10/06/24 History 7.5-325] Allergies Allergy/AdvReac Type Severity Reaction Status Date / Time No Known Allergies Allergy Verified 10/06/24 14:43 Physical Exam Vitals: Vital Signs Temp Pulse Resp BP Pulse Ox 10/07/24 07:15 97 20 108/67 96 10/07/24 07:00 93 20 108/65 97 10/07/24 06:45 96 24 136/72 98 10/07/24 06:30 101 H 22 120/73 97 10/07/24 06:15 92 24 100/74 96 10/07/24 06:00 96 12 115/70 97 10/07/24 05:45 95 21 132/33 96 10/07/24 05:30 102 H 12 131/88 97 10/07/24 05:15 97 14 115/71 96 10/07/24 05:00 93 12 116/76 95 10/07/24 04:45 98 18 115/70 97 10/07/24 04:30 100 14 115/70 96 10/07/24 04:15 92 17 115/70 97 10/07/24 04:00 96 16 115/70 96 10/07/24 03:45 92 16 108/83 95 10/07/24 03:30 93 18 115/70 96 10/07/24 03:15 115/70 10/07/24 03:00 115/70 10/07/24 02:45 95 23 111/71 95 10/07/24 02:30 100 24 115/70 97 10/07/24 02:15 100 19 106/64 98 10/07/24 02:00 95 17 107/72 97 10/07/24 01:45 98 16 119/72 97 10/07/24 01:30 96 18 119/75 97 10/07/24 01:15 98 27 H 117/70 97 10/07/24 01:00 98 25 H 118/71 96 10/07/24 00:45 101 H 21 110/69 96 10/07/24 00:30 100 14 115/70 97 10/07/24 00:15 102 H 14 105/66 96 10/07/24 00:00 98 12 120/80 97 10/06/24 23:45 101 H 14 115/70 97 10/06/24 23:30 99 23 112/82 97 10/06/24 23:17 94 20 112/82 97 10/06/24 23:15 97 12 95/61 97 10/06/24 23:00 93 24 115/70 96 10/06/24 22:45 100 21 92/53 96 10/06/24 22:30 97.6 F 99 27 H 92/53 97 10/06/24 21:55 105 H 20 125/61 95 10/06/24 21:40 99 18 97/71 100 10/06/24 21:16 99 18 97/38 96 10/06/24 20:50 97 32 H 89/51 96 10/06/24 20:36 96 30 H 86/50 96 10/06/24 20:27 98.4 F 96 32 H 79/45 96 10/06/24 20:02 101 H 16 87/58 10/06/24 19:50 102 H 16 86/43 97 10/06/24 19:30 102 H 16 97/54 93 L 10/06/24 18:57 100 18 83/58 94 L 10/06/24 17:31 99 18 79/51 93 L 10/06/24 16:48 99.7 F H 102 H 18 82/58 100 10/06/24 16:01 100 26 H 79/38 10/06/24 15:55 98 24 68/52 96 10/06/24 15:50 102 H 26 H 86/58 94 L 10/06/24 15:35 98.9 F 114 H 28 H 85/59 10/06/24 14:30 103.1 F H 110 H 18 128/109 93 L Intake and Output 10/06/24 10/07/24 10/07/24 22:59 06:59 14:59 Intake Total 5.921 1609.469 200 Output Total 10 440 75 Balance -4.079 1169.469 125 Intake: Intake, IV Titration 5.921 1609.469 200 Amount Dextrose 5% in Water 1, 1200 150 000 ml @ 150 mls/hr IV . Q7H40M PITO with Sodium Bicarb (1 Meq/ml) 150 ml Rx#:[id number] Norepinephrine 32 mg In 5.921 9.469 Sodium Chloride 0.9% 218 ml @ 0.03 MCG/KG/MIN 0. 989 mls/hr IV .Q24H ONE Rx#:[id number] Sodium Chloride 0.9% 1, 400 50 000 ml @ 50 mls/hr IV . Q20H PITO Rx#:[id number] Output: Urine 10 440 75 Uretheral ([place]ake) 10 10 Other: Voiding Method Indwelling Catheter Weight 74.7 kg Results - Lab Results Most recent lab results Calcium 6.6 mg/dL (8.4-10.2) L 10/07/24 04:20 Magnesium 1.1 mg/dL (1.6-2.3) L 10/06/24 14:42 10/07/24 05:47 10/07/24 04:20 Assessment and Plan Plan: Assessment: 1. Acute kidney injury secondary to ATN secondary to septic shock and rhabdomyolysis. Creatinine 3.18 on admission and is fairly stable at 3.12 today. Baseline creatinine near 1. 2. Rhabdomyolysis secondary to immobility. 3. Strep bacteremia on antibiotics. 4. Anion gap metabolic acidosis secondary to acute kidney injury and lactic acidosis. 5. Hyponatremia secondary to hypovolemia as well as acute kidney injury. 6. Hypomagnesemia from poor intake and alcohol abuse. Replaced. 7. History of alcohol abuse. 8. Hypocalcemia secondary to acute kidney injury as well as intracellular shifting from bicarb. Plan: Increase rate of bicarb drip to 200 cc an hour. Stop normal saline. Replace potassium and magnesium. Also replace calcium. Repeat BMP as well as CK level this evening. Check renal ultrasound. Avoid nephrotoxins. Continue to monitor renal function and urine output. Thank you for the consultation. I will continue to follow the patient with you during his hospital stay.
[2024-10-07] MEDS: CALCIUM GLUCONATE IN NACL 2 GM in SALINE 1 100ML.BAG IVPB ONE ×2 (09:16→18:24)
[2024-10-07] MEDS: DEXMEDETOMIDINE/0.9% NACL(PMX) 400 MCG in EMPTY BAG 1 BAG IV SCH (09:28)
[2024-10-07 09:34] LABS: Glucose,Whole Blood 205 mg/dL (70-110)
[2024-10-07] MEDS: INSULIN ASPART (NovoLOG) 100 UNIT/ML VIAL SQ SCH (09:50)
[2024-10-07] MEDS ORDERED: Magnesium Replacement Protocol 1 EACH MISC MISCELLANE PRN (10:23)
[2024-10-07] MEDS: VANCOMYCIN 1,500 MG in SODIUM CHLORIDE 0.9% 500 ML 500 ML IVPB ONE (10:33)
--- NOTE | 2024-10-07 10:51 | US ---
EXAMINATION TYPE: US kidneys/renal and bladder DATE OF EXAM: 10/07/2024 Exam done portable COMPARISON: US 2013 CLINICAL INDICATION: Male, 64 years old with history of wade; TECHNIQUE: Grayscale imaging of the bilateral kidneys and urinary bladder: FINDINGS: EXAM MEASUREMENTS: Right Kidney: 10.5 x 5.3 x 4.9 cm Left Kidney: 10.1 x 5.9 x 5.7 cm Right Kidney: No hydronephrosis or masses seen Left Kidney: No hydronephrosis or masses seen Bladder: not distended, hinson catheter There is no evidence for hydronephrosis at this point in time. No nephrolithiasis is seen. No neno s are identified. The urinary bladder is anechoic. IMPRESSION: 1. No evidence for obstructive uropathy. 2. Hinson catheter in place. [facility], , 10/07/2024 10:49 AM
--- NOTE | 2024-10-07 11:22 | P.CNPUL ---
History of Present Illness Consult date: 10/07/24 History of present illness: Patient is a 64-year-old male who is being seen in the ICU due to hypovolemic shock and rhabdomyolysis. He is a poor historian due to altered mental status and unresponsiveness. All history is obtained from the chart. He initially presented to the emergency department after being found facedown on the ground with a contusion to his forehead and abrasions to his knee and left toes. She stated that he had been having nausea and vomiting for a day prior to being found down. He was noted to have diarrhea as well. Patient is a daily drinker and consumes about a fifth per day according to the notes he has not drank for the 2 days prior to this admission. He also has a history of type 1 diabetes mellitus. Initial EKG showed sinus tachycardia. Head/cervical spine CT showed no acute intracranial process and no acute fracture or traumatic subluxation of the cervical spine. Initial chest x-ray showed right middle lobe scarring/at electasis, no acute pulmonary process. He had received 4 L of normal saline. Initial labs showed CK level of 18,113, WBCs 10.7, hemoglobin 12.5, sodium 126, creatinine 3.18 lactic acid 6.9, AST 401, ALT 65. Preliminary blood culture showed gram-positive cocci and patient was started on vancomycin. 10/07/2024. He is maintained on a bicarb drip as well as normal saline. He remains unresponsive to verbal stimulation. He is maintained on CIWA protocol. Labs today: WBCs 5.1, hemoglobin 11.6, sodium 126, potassium 3.8, BUN 53, creatinine 3.12, ammonia <9. Review of Systems ROS unobtainable: due to mental status Past Medical History Past Medical History: Coronary Artery Disease (CAD), Diabetes Mellitus, GERD/R eflux, Hyperlipidemia, Hypertension, Myocardial Infarction ([place]), Osteoarthritis (OA) Additional Past Medical History / Comment(s): arthritis in fingers, knees, and neck area; NT in bilat arms Last Myocardial Infarction Date:: 2009 History of Any Multi-Drug Resistant Organisms: None Reported Past Surgical History: Heart Catheterization With Stent Additional Past Surgical History / Comment(s): ANAL FISSURE REPAIR, 2 cardiac stents, bhargavi cataracts. Pain proc Past Anesthesia/Blood Transfusion Reactions: No Reported Reaction Date of Last Stent Placement:: 2016 Past Psychological History: No Psychological Hx Reported Smoking Status: Former smoker Past Alcohol Use History: Daily - Past Family History Father Family Medical History: Cancer Additional Family Medical History / Comment(s): PANCREATIC Medications and Allergies Home Medications Medication Instructions Recorded Confirmed Type Aspirin [Adult Low Dose Aspirin EC] 81 mg PO DAILY 08/29/18 10/06/24 History Insulin Aspart [NovoLOG] See Protocol SQ AC-TID 08/29/18 10/06/24 History Insulin Glargine [Lantus Vial] 20 unit SQ DAILY 08/29/18 10/06/24 History Pantoprazole Sodium [Protonix] 40 mg PO DAILY 08/29/18 10/06/24 History lisinopriL [Zestril] 10 mg PO DAILY 08/29/18 10/06/24 History Atorvastatin [Lipitor] 80 mg PO DAILY #90 tab 10/26/18 10/06/24 Rx Metoprolol Tartrate [Lopressor] 50 mg PO BID 03/02/21 10/06/24 History HYDROcodone/APAP 7.5-325MG [[place] 1 tab PO BID PRN 10/06/24 10/06/24 History 7.5-325] Allergies Allergy/AdvReac Type Severity Reaction Status Date / Time No Known Allergies Allergy Verified 10/06/24 14:43 Physical Exam Vitals: Vital Signs Temp Pulse Resp BP Pulse Ox 10/07/24 10:00 101 H 18 102/70 97 10/07/24 09:45 106 H 24 118/65 95 10/07/24 09:30 94 15 89/60 98 10/07/24 09:15 104 H 13 114/80 98 10/07/24 09:00 105 H 16 96/63 97 10/07/24 08:45 99 16 132/61 100 10/07/24 08:30 100 25 H 127/74 99 10/07/24 08:15 98 20 100 10/07/24 08:00 96.9 F L 97 21 108/77 97 10/07/24 07:45 93 21 101/70 96 10/07/24 07:30 94 25 H 102/85 97 10/07/24 07:15 97 20 108/67 96 10/07/24 07:00 93 20 108/65 97 10/07/24 06:45 96 24 136/72 98 10/07/24 06:30 101 H 22 120/73 97 10/07/24 06:15 92 24 100/74 96 10/07/24 06:00 96 12 115/70 97 10/07/24 05:45 95 21 132/33 96 10/07/24 05:30 102 H 12 131/88 97 10/07/24 05:15 97 14 115/71 96 10/07/24 05:00 93 12 116/76 95 10/07/24 04:45 98 18 115/70 97 10/07/24 04:30 100 14 115/70 96 10/07/24 04:15 92 17 115/70 97 10/07/24 04:00 96 16 115/70 96 10/07/24 03:45 92 16 108/83 95 10/07/24 03:30 93 18 115/70 96 10/07/24 03:15 115/70 10/07/24 03:00 115/70 10/07/24 02:45 95 23 111/71 95 10/07/24 02:30 100 24 115/70 97 10/07/24 02:15 100 19 106/64 98 10/07/24 02:00 95 17 107/72 97 10/07/24 01:45 98 16 119/72 97 10/07/24 01:30 96 18 119/75 97 10/07/24 01:15 98 27 H 117/70 97 10/07/24 01:00 98 25 H 118/71 96 10/07/24 00:45 101 H 21 110/69 96 10/07/24 00:30 100 14 115/70 97 10/07/24 00:15 102 H 14 105/66 96 10/07/24 00:00 98 12 120/80 97 10/06/24 23:45 101 H 14 115/70 97 10/06/24 23:30 99 23 112/82 97 10/06/24 23:17 94 20 112/82 97 10/06/24 23:15 97 12 95/61 97 10/06/24 23:00 93 24 115/70 96 10/06/24 22:45 100 21 92/53 96 10/06/24 22:30 97.6 F 99 27 H 92/53 97 10/06/24 21:55 105 H 20 125/61 95 10/06/24 21:40 99 18 97/71 100 10/06/24 21:16 99 18 97/38 96 10/06/24 20:50 97 32 H 89/51 96 10/06/24 20:36 96 30 H 86/50 96 10/06/24 20:27 98.4 F 96 32 H 79/45 96 10/06/24 20:02 101 H 16 87/58 10/06/24 19:50 102 H 16 86/43 97 10/06/24 19:30 102 H 16 97/54 93 L 10/06/24 18:57 100 18 83/58 94 L 10/06/24 17:31 99 18 79/51 93 L 10/06/24 16:48 99.7 F H 102 H 18 82/58 100 10/06/24 16:01 100 26 H 79/38 10/06/24 15:55 98 24 68/52 96 10/06/24 15:50 102 H 26 H 86/58 94 L 10/06/24 15:35 98.9 F 114 H 28 H 85/59 10/06/24 14:30 103.1 F H 110 H 18 128/109 93 L Intake and Output 10/06/24 10/07/24 10/07/24 22:59 06:59 14:59 Intake Total 5.921 1609.469 950 Output Total 10 440 275 Balance -4.079 1169.469 675 Intake: IV 750 Calcium Gluconate in NaCl 100 2 gm In Saline 1 100ml. bag @ 100 mls/hr IVPB ONCE ONE Rx#:[id number] Dextrose 5% in Water 1, 500 000 ml @ 200 mls/hr IV . Q5H45M PITO with Sodium Bicarb (1 Meq/ml) 150 ml Rx#:[id number] Potassium Chloride 10 meq 100 In Water For Injection 1 100ml.bag @ 100 mls/hr IVPB Q1H PITO Rx#: [id number] Sodium Chloride 0.9% 1, 50 000 ml @ 50 mls/hr IV . Q20H PITO Rx#:[id number] Intake, IV Titration 5.921 1609.469 200 Amount Dextrose 5% in Water 1, 1200 150 000 ml @ 200 mls/hr IV . Q5H45M PITO with Sodium Bicarb (1 Meq/ml) 150 ml Rx#:[id number] Norepinephrine 32 mg In 5.921 9.469 Sodium Chloride 0.9% 218 ml @ 0.03 MCG/KG/MIN 0. 989 mls/hr IV .Q24H ONE Rx#:[id number] Sodium Chloride 0.9% 1, 400 50 000 ml @ 50 mls/hr IV . Q20H [facility] Rx#:[id number] Output: Urine 10 440 275 Uretheral ([place]) 10 10 Other: Voiding Method Indwelling Catheter Indwelling Catheter Weight 74.7 kg Vital signs are stable. General: AOx0. Unresponsive to verbal stimulation. HEENT: Mild contusion on his forehead. EOMI bilaterally. ACs patent. Nares patent. Lungs: Bilateral breath sounds present; no rhonchi, wheezes, or rales. Heart: Rate and rhythm are regular. S1-S2 present. No murmur/rub/gallops. Abdomen: Soft, nontender, nondistended. Bowel sounds present. Extremities: No edema present. Symmetric movement. Results - Laboratory Findings CBC and BMP: 10/07/24 05:47 10/07/24 04:20 PT/INR, D-dimer PT 13.8 sec (10.0-12.5) H 10/06/24 14:42 INR 1.3 (<1.2) H 10/06/24 14:42 Abnormal lab findings: Abnormal Labs 10/06/24 10/06/24 10/06/24 14:42 14:42 14:42 WBC 10.7 H RBC 3.40 L Hgb 12.5 L Hct 36.6 L MCV 107.8 H MCH 36.8 H Plt Count Neutrophils # (Manual) 9.90 H Lymphocytes # (Manual) 0.11 L Metamyelocytes # (Man) 0.43 H Myelocytes # (Manual) 0.11 H PT 13.8 H INR 1.3 H APTT 44.0 H Sodium 126 L Carbon Dioxide 13 L BUN 49 H Creatinine 3.18 H Glucose 169 H POC Glucose (mg/dL) Plasma Lactic Acid Lius Calcium 7.6 L Magnesium 1.1 L AST 401 H ALT 65 H Creatine Kinase 81034 H* Total Protein 6.2 L Albumin 3.4 L Urine Protein Urine Glucose (UA) Urine Ketones Urine Blood Ur Leukocyte Esterase Urine RBC Urine WBC Amorphous Sediment Urine Bacteria Urine Mucus 10/06/24 10/06/24 10/06/24 14:42 15:53 17:12 WBC RBC Hgb Hct MCV MCH Plt Count Neutrophils # (Manual) Lymphocytes # (Manual) Metamyelocytes # (Man) Myelocytes # (Manual) PT INR APTT Sodium 125 L Carbon Dioxide 12 L BUN 48 H Creatinine 2.96 H Glucose 104 H POC Glucose (mg/dL) Plasma Lactic Acid Luis 6.9 H* Calcium 6.4 L* Magnesium AST ALT Creatine Kinase Total Protein Albumin Urine Protein 2+ H Urine Glucose (UA) Trace H Urine Ketones Trace H Urine Blood Large H Ur Leukocyte Esterase Moderate H Urine RBC 12 H Urine WBC 28 H Amorphous Sediment Moderate H Urine Bacteria Rare H Urine Mucus Rare H 10/06/24 10/06/24 10/06/24 17:12 20:25 20:50 WBC RBC Hgb Hct MCV MCH Plt Count Neutrophils # (Manual) Lymphocytes # (Manual) Metamyelocytes # (Man) Myelocytes # (Manual) PT INR APTT Sodium 125 L Carbon Dioxide 12 L BUN 51 H Creatinine 3.29 H Glucose 110 H POC Glucose (mg/dL) Plasma Lactic Acid Luis 5.0 H* 3.9 H* Calcium 6.7 L Magnesium AST ALT Creatine Kinase Total Protein Albumin Urine Protein Urine Glucose (UA) Urine Ketones Urine Blood Ur Leukocyte Esterase Urine RBC Urine WBC Amorphous Sediment Urine Bacteria Urine Mucus 10/06/24 10/07/24 10/07/24 22:18 04:20 05:47 WBC RBC 3.19 L Hgb 11.6 L Hct 33.9 L MCV 106.1 H MCH 36.3 H Plt Count 111 L Neutrophils # (Manual) Lymphocytes # (Manual) 0.05 L Metamyelocytes # (Man) 0.10 H Myelocytes # (Manual) PT INR APTT Sodium 126 L Carbon Dioxide 16 L BUN 53 H Creatinine 3.12 H Glucose 157 H POC Glucose (mg/dL) 138 H Plasma Lactic Acid Luis Calcium 6.6 L Magnesium AST ALT Creatine Kinase Total Protein Albumin Urine Protein Urine Glucose (UA) Urine Ketones Urine Blood Ur Leukocyte Esterase Urine RBC Urine WBC Amorphous Sediment Urine Bacteria Urine Mucus 10/07/24 10/07/24 10/07/24 05:47 06:39 09:32 WBC RBC Hgb Hct MCV MCH Plt Count Neutrophils # (Manual) Lymphocytes # (Manual) Metamyelocytes # (Man) Myelocytes # (Manual) PT INR APTT Sodium Carbon Dioxide BUN Creatinine Glucose POC Glucose (mg/dL) 191 H 205 H Plasma Lactic Acid Luis Calcium Magnesium 1.4 L AST ALT Creatine Kinase Total Protein Albumin Urine Protein Urine Glucose (UA) Urine Ketones Urine Blood Ur Leukocyte Esterase Urine RBC Urine WBC Amorphous Sediment Urine Bacteria Urine Mucus Assessment and Plan Assessment: Rhabdomyolysis secondary to immobility. Acute kidney injury secondary to ATN due to to septic shock and rhabdomyolysis. Strep bacteremia. On vancomycin. Lactic acidosis. Resolved. Hyponatremia, likely hypovolemic. Plan: Continue CIWA protocol. Monitor hemodynamics. Continue vancomycin. Continue bicarb drip. Discontinue normal saline as per nephrology. Nephrology is following. Repeat BMP this afternoon.
[2024-10-07] MEDS: MAGNESIUM SULFATE-D5W PMX 1 GM in DEXTROSE/WATER 1 100ML.BAG IVPB SCH (11:57)
[2024-10-07 12:16] LABS: Glucose,Whole Blood 173 mg/dL (70-110)
[2024-10-07] MEDS ORDERED: INSULIN ASPART (NovoLOG) 100 UNIT/ML VIAL SQ SCH (12:30)
[2024-10-07 16:26] LABS: Glucose,Whole Blood 204 mg/dL (70-110)
[2024-10-07 17:06] LABS: African American GFR (CKD) 29 (>60 ml/min/1.73 sqM); Anion Gap 10 mmol/L; Blood Urea Nitrogen 54 mg/dL (9-20); Calcium 6.5 mg/dL (8.4-10.2); Carbon Dioxide 18 mmol/L (22-30); Chloride 98 mmol/L (98-107); Glucose 176 mg/dL (74-99); Non-African American GFR(CKD) 25 (>60 ml/min/1.73 sqM); Potassium 4.1 mmol/L (3.5-5.1); Sodium 126 mmol/L (137-145)
[2024-10-07 17:41] LABS: Creatine Kinase 17743 U/L (55-170)
[2024-10-07 20:15] LABS: Glucose,Whole Blood 255 mg/dL (70-110)
[2024-10-07] MEDS: PANTOPRAZOLE 40 MG/10 ML VIAL IVP SCH (20:18)
--- NOTE | 2024-10-07 21:10 | P.CONS ---
History of Present Illness - Reason for Consult Consult date: 10/07/24 Sepsis Requesting physician: Pierre Rubio - Chief Complaint Unresponsive at home x 1 day - History of Present Illness Patient is a 64-year-old male past medical his significant for diabetes mellitus hypertension hyperlipidemia [place] osteoarthritis coronary disease patient was brought into the hospital after apparently the patient was found to be facedown on the ground with contusion to his forehead and abrasion to his knee and some bloody toes apparently patient was prior to that complaining of nausea and vomiting and not feeling well patient is a heavy drinker however has not drink in the last 2 days on presentation to the hospital patient did have a fever of 103.1 F patient has been afebrile since then patient was tachycardic hypotensive requiring pressor support but not hypoxic and no need for supplemental oxygen patient did have white count of 10.7 with a left shift BUN and creatinine has been elevated liver enzymes are mildly elevated he did have elevated CK urine has been mildly positive influenza RSV COVID testing was negative patient did have chest x-ray right middle lobe scarring atelectasis otherwise no acute abnormality in the chest foot x-ray did shows small bony fragment adjacent to the base of the second digit proximal phalanx with a question of avulsion fracture patient did have blood cultures drawn came back positive with Streptococcus agalactiae patient is currently being treated with vancomycin infectious disease was consulted for further management most information has been obtained from review the chart and the nursing staff the patient is currently nonresponsive unable to point any history in the family with the bedside Review of Systems Positive points has been mentioned in HPI complete review could not be obtained because of his underlying mental status Past Medical History Past Medical History: Coronary Artery Disease (CAD), Diabetes Mellitus, GERD/Reflux, Hyperlipidemia, Hypertension, Myocardial Infarction ([place]), Osteoarthritis (OA) Additional Past Medical History / Comment(s): arthritis in fingers, knees, and neck area; NT in bilat arms Last Myocardial Infarction Date:: 2009 History of Any Multi-Drug Resistant Organisms: None Reported Past Surgical History: Heart Catheterization With Stent Additional Past Surgical History / Comment(s): ANAL FISSURE REPAIR, 2 cardiac stents, bhargavi cataracts. Pain proc Past Anesthesia/Blood Transfusion Reactions: No Reported Reaction Date of Last Stent Placement:: 2015 Past Psychological History: No Psychological Hx Reported Smoking Status: Former smoker Past Alcohol Use History: Daily - Past Family History Father Family Medical History: Cancer Additional Family Medical History / Comment(s): PANCREATIC Medications and Allergies Home Medications Medication Instructions Recorded Confirmed Type Aspirin [Adult Low Dose Aspirin EC] 81 mg PO DAILY 08/29/18 10/06/24 History Insulin Aspart [NovoLOG] See Protocol SQ AC-TID 08/29/18 10/06/24 History Insulin Glargine [Lantus Vial] 20 unit SQ DAILY 08/29/18 10/06/24 History Pantoprazole Sodium [Protonix] 40 mg PO DAILY 08/29/18 10/06/24 History lisinopriL [Zestril] 10 mg PO DAILY 08/29/18 10/06/24 History Atorvastatin [Lipitor] 80 mg PO DAILY #90 tab 10/26/18 10/06/24 Rx Metoprolol Tartrate [Lopressor] 50 mg PO BID 03/02/21 10/06/24 History HYDROcodone/APAP 7.5-325MG [[place] 1 tab PO BID PRN 10/06/24 10/06/24 History 7.5-325] Allergies Allergy/AdvReac Type Severity Reaction Status Date / Time No Known Allergies Allergy Verified 10/06/24 14:43 Physical Exam Vitals: Vital Signs Temp Pulse Resp BP Pulse Ox 10/07/24 16:00 97.7 F 101 H 22 82/44 96 10/07/24 15:00 102 H 35 H 109/63 96 10/07/24 14:00 103 H 21 94/73 95 10/07/24 13:00 107 H 30 H 120/62 95 10/07/24 12:45 106 H 29 H 111/63 96 10/07/24 12:30 105 H 22 96/85 98 10/07/24 12:15 101 H 19 116/60 98 10/07/24 12:00 98.4 F 105 H 21 77/46 98 10/07/24 11:45 103 H 20 88/69 99 10/07/24 11:30 103 H 16 79/55 98 10/07/24 11:15 98 20 105/56 98 10/07/24 11:00 105 H 29 H 132/64 98 10/07/24 10:45 101 H 14 110/93 98 10/07/24 10:30 105 H 7 L 124/65 97 11/18/24 10:15 105 H 20 89/66 98 10/07/24 10:00 101 H 18 102/70 97 10/07/24 09:45 106 H 24 118/65 95 10/07/24 09:30 94 15 89/60 98 10/07/24 09:15 104 H 13 114/80 98 10/07/24 09:00 105 H 16 96/63 97 10/07/24 08:45 99 16 132/61 100 10/07/24 08:30 100 25 H 127/74 99 10/07/24 08:15 98 20 100 10/07/24 08:00 96.9 F L 97 21 108/77 97 10/07/24 07:45 93 21 101/70 96 10/07/24 07:30 94 25 H 102/85 97 10/07/24 07:15 97 20 108/67 96 10/07/24 07:00 93 20 108/65 97 10/07/24 06:45 96 24 136/72 98 10/07/24 06:30 101 H 22 120/73 97 10/07/24 06:15 92 24 100/74 96 10/07/24 06:00 96 12 115/70 97 10/07/24 05:45 95 21 132/33 96 10/07/24 05:30 102 H 12 131/88 97 10/07/24 05:15 97 14 115/71 96 10/07/24 05:00 93 12 116/76 95 10/07/24 04:45 98 18 115/70 97 10/07/24 04:30 100 14 115/70 96 10/07/24 04:15 92 17 115/70 97 10/07/24 04:00 96 16 115/70 96 10/07/24 03:45 92 16 108/83 95 10/07/24 03:30 93 18 115/70 96 10/07/24 03:15 115/70 10/07/24 03:00 115/70 10/07/24 02:45 95 23 111/71 95 10/07/24 02:30 100 24 115/70 97 10/07/24 02:15 100 19 106/64 98 10/07/24 02:00 95 17 107/72 97 10/07/24 01:45 98 16 119/72 97 10/07/24 01:30 96 18 119/75 97 10/07/24 01:15 98 27 H 117/70 97 10/07/24 01:00 98 25 H 118/71 96 10/07/24 00:45 101 H 21 110/69 96 10/07/24 00:30 100 14 115/70 97 10/07/24 00:15 102 H 14 105/66 96 10/07/24 00:00 98 12 120/80 97 10/06/24 23:45 101 H 14 115/70 97 10/06/24 23:30 99 23 112/82 97 10/06/24 23:17 94 20 112/82 97 10/06/24 23:15 97 12 95/61 97 10/06/24 23:00 93 24 115/70 96 10/06/24 22:45 100 21 92/53 96 10/06/24 22:30 97.6 F 99 27 H 92/53 97 10/06/24 21:55 105 H 20 125/61 95 10/06/24 21:40 99 18 97/71 100 10/06/24 21:16 99 18 97/38 96 10/06/24 20:50 97 32 H 89/51 96 10/06/24 20:36 96 30 H 86/50 96 10/06/24 20:27 98.4 F 96 32 H 79/45 96 10/06/24 20:02 101 H 16 87/58 10/06/24 19:50 102 H 16 86/43 97 10/06/24 19:30 102 H 16 97/54 93 L 10/06/24 18:57 100 18 83/58 94 L 10/06/24 17:31 99 18 79/51 93 L 10/06/24 16:48 99.7 F H 102 H 18 82/58 100 Intake and Output 10/07/24 10/07/24 10/07/24 06:59 14:59 22:59 Intake Total 7806.003 4947 410.428 Output Total 440 510 120 Balance 1708.685 7996 290.428 Intake: IV 1850 400 Calcium Gluconate in NaCl 100 2 gm In Saline 1 100ml. bag @ 100 mls/hr IVPB ONCE ONE Rx#:[id number] Dextrose 5% in Water 1, 1300 400 000 ml @ 200 mls/hr IV . Q5H45M PITO with Sodium Bicarb (1 Meq/ml) 150 ml Rx#:[id number] Magnesium Sulfate-D5w Pmx 200 1 gm In Dextrose/Water 1 100ml.bag @ 100 mls/hr IVPB Q1H PITO Rx#: [id number] Potassium Chloride 10 meq 200 In Water For Injection 1 100ml.bag @ 100 mls/hr IVPB Q1H PITO Rx#: [id number] Sodium Chloride 0.9% 1, 50 000 ml @ 50 mls/hr IV . Q20H PITO Rx#:[id number] Intake, IV Titration 1609.469 200 10.428 Amount Dexmedetomidine/0.9% NaCl 10.428 (Pmx) 400 mcg In Empty Bag 1 bag @ 0.2 MCG/KG/HR 3.515 mls/hr IV .Q24H PITO Rx#:[id number] Dextrose 5% in Water 1, 1200 150 000 ml @ 200 mls/hr IV . Q5H45M PITO with Sodium Bicarb (1 Meq/ml) 150 ml Rx#:[id number] Norepinephrine 32 mg In 9.469 0 Sodium Chloride 0.9% 218 ml @ 0.03 MCG/KG/MIN 0. 989 mls/hr IV .Q24H ONE Rx#:[id number] Sodium Chloride 0.9% 1, 400 50 000 ml @ 50 mls/hr IV . Q20H PITO Rx#:[id number] Output: Urine 440 510 120 Uretheral ([place]) 10 Other: Voiding Method Indwelling Catheter Indwelling Catheter Weight 74.7 kg 74.7 kg GENERAL DESCRIPTION: Middle-aged male lying in bed, no distress. No tachypnea or accessory muscle of respiration use. HEENT: Shows Pallor , no scleral icterus. Oral mucous membrane is dry. NECK: Trachea central, no thyromegaly. LUNGS: Unlabored breathing. Decreased breath sound at the base HEART: S1, S2, regular rate and rhythm. No loud murmur ABDOMEN: Soft, no tenderness , guarding or rigidity, no organomegaly EXTREMITIES: No edema of feet. SKIN: No rash, no masses palpable. NEUROLOGICAL: The patient is unresponsive no neck rigidity Results CBC & Chem 7: 10/08/24 06:16 10/08/24 13:30 Labs: Abnormal Lab Results - Last 24 Hours (Table) 10/06/24 10/06/24 10/06/24 Range/Units 15:53 17:12 17:12 RBC (4.30-5.90) m/uL Hgb (13.0-17.5) gm/dL Hct (39.0-53.0) % MCV (80.0-100.0) fL MCH (25.0-35.0) pg Plt Count (150-450) k/uL Lymphocytes # (Manual) (1.0-4.8) k/uL Metamyelocytes # (Man) (0) k/uL Sodium 125 L (137-145) mmol/L Carbon Dioxide 12 L (22-30) mmol/L BUN 48 H (9-20) mg/dL Creatinine 2.96 H (0.66-1.25) mg/dL Glucose 104 H (74-99) mg/dL POC Glucose (mg/dL) (70-110) mg/dL Plasma Lactic Acid Luis 5.0 H* (0.7-2.0) mmol/L Calcium 6.4 L* (8.4-10.2) mg/dL Magnesium (1.6-2.3) mg/dL Urine Protein 2+ H (Negative) Urine Glucose (UA) Trace H (Negative) Urine Ketones Trace H (Negative) Urine Blood Large H (Negative) Ur Leukocyte Esterase Moderate H (Negative) Urine RBC 12 H (0-5) /hpf Urine WBC 28 H (0-5) /hpf Amorphous Sediment Moderate H (None) /hpf Urine Bacteria Rare H (None) /hpf Urine Mucus Rare H (None) /hpf 10/06/24 10/06/24 10/06/24 Range/Units 20:25 20:50 22:18 RBC (4.30-5.90) m/uL Hgb (13.0-17.5) gm/dL Hct (39.0-53.0) % MCV (80.0-100.0) fL MCH (25.0-35.0) pg Plt Count (150-450) k/uL Lymphocytes # (Manual) (1.0-4.8) k/uL Metamyelocytes # (Man) (0) k/uL Sodium 125 L (137-145) mmol/L Carbon Dioxide 12 L (22-30) mmol/L BUN 51 H (9-20) mg/dL Creatinine 3.29 H (0.66-1.25) mg/dL Glucose 110 H (74-99) mg/dL POC Glucose (mg/dL) 138 H (70-110) mg/dL Plasma Lactic Acid Luis 3.9 H* (0.7-2.0) mmol/L Calcium 6.7 L (8.4-10.2) mg/dL Magnesium (1.6-2.3) mg/dL Urine Protein (Negative) Urine Glucose (UA) (Negative) Urine Ketones (Negative) Urine Blood (Negative) Ur Leukocyte Esterase (Negative) Urine RBC (0-5) /hpf Urine WBC (0-5) /hpf Amorphous Sediment (None) /hpf Urine Bacteria (None) /hpf Urine Mucus (None) /hpf 10/07/24 10/07/24 10/07/24 Range/Units 04:20 05:47 05:47 RBC 3.19 L (4.30-5.90) m/uL Hgb 11.6 L (13.0-17.5) gm/dL Hct 33.9 L (39.0-53.0) % MCV 106.1 H (80.0-100.0) fL MCH 36.3 H (25.0-35.0) pg Plt Count 111 L (150-450) k/uL Lymphocytes # (Manual) 0.05 L (1.0-4.8) k/uL Metamyelocytes # (Man) 0.10 H (0) k/uL Sodium 126 L (137-145) mmol/L Carbon Dioxide 16 L (22-30) mmol/L BUN 53 H (9-20) mg/dL Creatinine 3.12 H (0.66-1.25) mg/dL Glucose 157 H (74-99) mg/dL POC Glucose (mg/dL) (70-110) mg/dL Plasma Lactic Acid Luis (0.7-2.0) mmol/L Calcium 6.6 L (8.4-10.2) mg/dL Magnesium 1.4 L (1.6-2.3) mg/dL Urine Protein (Negative) Urine Glucose (UA) (Negative) Urine Ketones (Negative) Urine Blood (Negative) Ur Leukocyte Esterase (Negative) Urine RBC (0-5) /hpf Urine WBC (0-5) /hpf Amorphous Sediment (None) /hpf Urine Bacteria (None) /hpf Urine Mucus (None) /hpf 10/07/24 10/07/24 10/07/24 Range/Units 06:39 09:32 12:15 RBC (4.30-5.90) m/uL Hgb (13.0-17.5) gm/dL Hct (39.0-53.0) % MCV (80.0-100.0) fL MCH (25.0-35.0) pg Plt Count (150-450) k/uL Lymphocytes # (Manual) (1.0-4.8) k/uL Metamyelocytes # (Man) (0) k/uL Sodium (137-145) mmol/L Carbon Dioxide (22-30) mmol/L BUN (9-20) mg/dL Creatinine (0.66-1.25) mg/dL Glucose (74-99) mg/dL POC Glucose (mg/dL) 191 H 205 H 173 H (70-110) mg/dL Plasma Lactic Acid Luis (0.7-2.0) mmol/L Calcium (8.4-10.2) mg/dL Magnesium (1.6-2.3) mg/dL Urine Protein (Negative) Urine Glucose (UA) (Negative) Urine Ketones (Negative) Urine Blood (Negative) Ur Leukocyte Esterase (Negative) Urine RBC (0-5) /hpf Urine WBC (0-5) /hpf Amorphous Sediment (None) /hpf Urine Bacteria (None) /hpf Urine Mucus (None) /hpf 10/07/24 Range/Units 16:25 RBC (4.30-5.90) m/uL Hgb (13.0-17.5) gm/dL Hct (39.0-53.0) % MCV (80.0-100.0) fL MCH (25.0-35.0) pg Plt Count (150-450) k/uL Lymphocytes # (Manual) (1.0-4.8) k/uL Metamyelocytes # (Man) (0) k/uL Sodium (137-145) mmol/L Carbon Dioxide (22-30) mmol/L BUN (9-20) mg/dL Creatinine (0.66-1.25) mg/dL Glucose (74-99) mg/dL POC Glucose (mg/dL) 204 H (70-110) mg/dL Plasma Lactic Acid Luis (0.7-2.0) mmol/L Calcium (8.4-10.2) mg/dL Magnesium (1.6-2.3) mg/dL Urine Protein (Negative) Urine Glucose (UA) (Negative) Urine Ketones (Negative) Urine Blood (Negative) Ur Leukocyte Esterase (Negative) Urine RBC (0-5) /hpf Urine WBC (0-5) /hpf Amorphous Sediment (None) /hpf Urine Bacteria (None) /hpf Urine Mucus (None) /hpf Microbiology - Last 24 Hours (Table) 10/06/24 15:48 Blood Culture Gram Stain - Preliminary Blood Blood Culture - Preliminary Molecular ID Assessment and Plan (1) Sepsis Current Visit: Yes Status: Acute Code(s): A41.9 - SEPSIS, UNSPECIFIED ORGANISM SNOMED Code(s): 57436946 (2) Streptococcal bacteremia Current Visit: Yes Status: Acute Code(s): R78.81 - BACTEREMIA; B95.5 - UNSP STREPTOCOCCUS THE CAUSE OF DISEASES [facility]SD [facility] SNOMED Code(s): 348995550886 Plan: 1patient presented to the hospital with sepsis in this patient who did have fever tachycardia elevated white count and now with evidence of streptococcal bacteremia which is usually of skin and soft tissue origin 2-patient with renal insufficiency and high risk of toxicity from vancomycin 3-discontinue vancomycin 4-we will start the patient on cefazolin 5-blood culture to be document clearance of bacteremia 6-vascular surgery consulted for management of his foot wound We will follow on clinical condition and cultures to further adjust medication if needed Thank you for this consultation we will follow the patient along with you Dictation was produced using [employer] dictation software. please excuse any grammatical, word or spelling errors. Time with Patient: Greater than 30
[2024-10-07] MEDS: NOREPINEPHRINE 8 MG in SODIUM CHLORIDE 0.9% 250 ML IV SCH (22:00)
[2024-10-07 22:05] LABS: ABG Base Excess 2.4 mmol/L; ABG HCO3 26 mmol/L (21-25); ABG Oxygen Saturation 90.3 % (94-97); ABG PCO2 34 mmHg (35-45); ABG PH 7.49 (7.35-7.45); ABG TCO2 27 mmol/L (19-24); Allen Test Performed? Yes
[2024-10-07 22:08] LABS: ABG PO2 56 mmHg (83-108)
[2024-10-07] MEDS: SODIUM CHLORIDE 0.9% 1,000 ML IV ONE (22:15)
[2024-10-07 23:34] LABS: Glucose,Whole Blood 278 mg/dL (70-110)
--- NOTE | 2024-10-08 00:39 | XR ---
EXAM: XR Right Humerus, 2 or More Views CLINICAL HISTORY: deformity TECHNIQUE: Frontal and lateral views of the right humerus. COMPARISON: No relevant prior studies available. FINDINGS: Bones/joints: Unremarkable. No acute fracture. No dislocation. Soft tissues: Trunk device overlies the mid diaphysis of the humerus. IMPRESSION: No acute bony abnormality.
--- NOTE | 2024-10-08 02:47 | HP ---
HISTORY AND PHYSICAL CHIEF COMPLAINT: Fall and weakness, nausea, and diarrhea. HISTORY OF PRESENT ILLNESS: This 64-year-old gentleman with a past medical history of multiple medical problems including diabetes mellitus, coronary artery disease, myocardial infarction, was found to be down at least 2 hours. The patient has history of alcohol intoxication. The patient had features of rhabdomyolysis and hypotension and the patient is being closely monitored in ICU at this time. The patient is just off Levophed at this time. The patient also had Strep bacteremia. Infectious Disease following the patient closely. The patient also had skin infection of the left foot also. Currently, the patient is stuporous, unable to give a coherent history. A CT of the brain showed no acute abnormality. PAST MEDICAL HISTORY: Reviewed. HOME MEDICATIONS: Reviewed, which include [place] and insulin. ALLERGIES: None. FAMILY HISTORY: History of pancreatic cancer. SOCIAL HISTORY: History of alcohol, smoking, THC. REVIEW OF SYSTEMS: Could not be taken because of change in mental status. PHYSICAL EXAM: VITAL SIGNS: Pulse is 103, blood pressure ntd. HEENT: Conjunctivae normal. CARDIOVASCULAR: S1, S2. RESPIRATIONS: A few scattered rhonchi. ABDOMEN: Soft. NERVOUS SYSTEM: Diffusely weak. SKIN: Left foot infection present. JOINTS: No active deformity. LABORATORY DATA: Reviewed. WBC 10.7, creatinine is 3.29, CK is 18,113. Cultures are showing molecular ID showing group A Strep pyogenes. ASSESSMENT: 1. Sepsis with group A Strep pyogenes. 2. Acute rhabdomyolysis and acute renal failure secondary to rhabdomyolysis. 3. Change in mental status, metabolic encephalopathy, multifactorial. 4. Acute delirium tremens. 5. History of ETOH. 6. History of CAD. 7. Diabetes mellitus type 2. 8. Hypertension. 9. Hyperlipidemia. 10.Complex medical history of CAD, stent. RECOMMENDATION: This 64-year-old gentleman presented with multiple complex medical issues. We will monitor the patient closely. Continue the current medications. We will initiate broad- spectrum IV antibiotics, CIWA protocol, IV fluids. Recommend Infectious Disease, nephrology and Pulmonary consultation. Monitor CK closely. Guarded prognosis. We will repeat blood cultures. Further recommendations to follow. MMODL / IJN: [id number] / MTDD
[2024-10-08 04:41] LABS: Glucose,Whole Blood 202 mg/dL (70-110)
[2024-10-08 06:26] LABS: MCH 36.9 pg (25.0-35.0); MCHC 34.5 g/dL (31.0-37.0); MCV 107.1 fL (80.0-100.0); Macrocytosis Moderate; Mean Platelet Volume 9.8; RDW 12.7 % (11.5-15.5); WBC 9.1 k/uL (3.8-10.6)
[2024-10-08 06:35] LABS: ALT 136 U/L (4-49); AST 507 U/L (17-59); African American GFR (CKD) 33 (>60 ml/min/1.73 sqM); Albumin 2.2 g/dL (3.5-5.0); Alkaline Phosphatase 95 U/L (38-126); Anion Gap 7 mmol/L; Blood Urea Nitrogen 50 mg/dL (9-20); Carbon Dioxide 32 mmol/L (22-30); Chloride 92 mmol/L (98-107); Glucose 167 mg/dL (74-99); Magnesium 1.8 mg/dL (1.6-2.3); Non-African American GFR(CKD) 29 (>60 ml/min/1.73 sqM); Sodium 131 mmol/L (137-145); Total Bilirubin 0.8 mg/dL (0.2-1.3); Total Protein 4.4 g/dL (6.3-8.2)
[2024-10-08 06:37] LABS: Calcium 6.3 mg/dL (8.4-10.2)
[2024-10-08] MEDS: POTASSIUM CHLORIDE 20 MEQ in WATER FOR INJECTION 1 100ML.BAG IVPB SCH ×2 (08:00→14:23)
[2024-10-08] MEDS: SODIUM CHLORIDE 0.9% 1,000 ML IV SCH ×2 (08:02→20:19)
[2024-10-08] MEDS: MAGNESIUM SULFATE-D5W PMX 1 GM in DEXTROSE/WATER 1 100ML.BAG IVPB ONE (08:03)
[2024-10-08] MEDS: CALCIUM GLUCONATE IN NACL 2 GM in SALINE 1 100ML.BAG IVPB ONE (08:03)
[2024-10-08 08:16] LABS: Glucose,Whole Blood 167 mg/dL (70-110)
--- NOTE | 2024-10-08 08:34 | XR ---
EXAMINATION TYPE: XR chest 1V portable DATE OF EXAM: 10/08/2024 8:17 AM COMPARISON: Chest radiographs from 10/06/2024. CLINICAL INDICATION: Male, 64 years old with history of low po2; [facility] TECHNIQUE: XR chest 1V portable Frontal view of the chest. FINDINGS: Lungs/Pleura: No evidence of focal consolidation or pneumothorax. Blunting of the costophrenic angles is present. Pulmonary vascularity: Unremarkable. Heart/mediastinum: Cardiomediastinal silhouette is unremarkable. Musculoskeletal: No acute osseous pathology. There is fixation hardware in the lower cervical spine. Other findings: None Lines/Tubes: IMPRESSION: Low lung volumes with Trace bilateral pleural effusions. Correlate with serum BNP. [facility], , 10/08/2024 8:32 AM
[2024-10-08 08:51] LABS: Band Neutrophils % 6 %; Eosinophils # (M) 0.18 k/uL (0-0.7); Lymphocytes # (M) 0.09 k/uL (1.0-4.8); Metamyelocytes # (M) 0.09 k/uL (0); Metamyelocytes % 1 %; Monocytes # (M) 0.09 k/uL (0-1.0); Neutrophils % (M) 91 %; Nucleated Red Blood Cells 0 /100 WBC (0-0); Total Cells Counted 200
[2024-10-08 08:53] LABS: Platelet Count 88 k/uL (150-450)
[2024-10-08] MEDS: POTASSIUM CHLORIDE 20 MEQ in WATER FOR INJECTION 1 100ML.BAG IVPB STA (09:12)
[2024-10-08] MEDS ORDERED: HALOPERIDOL LACTATE 5 MG/ML 1 ML VIAL IVP PRN (09:20)
[2024-10-08] MEDS ORDERED: HALOPERIDOL LACTATE 5 MG/ML 1 ML VIAL IVP ONE (09:30)
[2024-10-08] MEDS: LORazepam 2 MG/ML INJ IV PRN (09:49)
[2024-10-08] MEDS: LORazepam 2 MG/ML INJ IV ONE (09:50)
[2024-10-08] MEDS: HALOPERIDOL LACTATE 5 MG/ML 1 ML VIAL IVP ONE (09:50)
--- NOTE | 2024-10-08 10:02 | P.PN ---
Subjective Patient is seen in follow-up for acute kidney injury. Became hypotensive last night and is on higher dose of Levophed. Acidosis improved with bicarb drip. Urine output about 50 cc an hour. Vital signs are stable. On Levophed. General: No acute distress. HEENT: Head exam is unremarkable. On nasal cannula. LUNGS: No audible rhonchi or wheezes. HEART: Rate and Rhythm are regular. ABDOMEN: No distention. EXTREMITITES: No edema. Objective - Vital Signs Vital signs: Vital Signs Temp 98.2 F 10/08/24 08:00 Pulse 76 10/08/24 08:15 Resp 23 10/08/24 08:15 BP 101/50 10/08/24 08:15 Pulse Ox 93 L 10/08/24 08:15 FiO2 Intake & Output 10/07/24 10/08/24 10/08/24 18:59 06:59 18:59 Intake Total 2863.295 3782.876 1035.248 Output Total 710 675 60 Balance 2153.295 3107.876 975.248 Weight 74.7 kg 78.5 kg Intake: IV 2650 2400 500 Calcium Gluconate in NaCl 100 100 2 gm In Saline 1 100ml. bag @ 100 mls/hr IVPB ONCE ONE Rx#:[id number] Dextrose 5% in Water 1 2100 2400 200 000 ml @ 200 mls/hr IV . Q5H45M [facility] with Sodium Bicarb (1 Meq/ml) 150 ml Rx#:[id number] Magnesium Sulfate-D5w Pmx 200 1 gm In Dextrose/Water 1 100ml.bag @ 100 mls/hr IVPB Q1H [facility] Rx#: [id number] Potassium Chloride 10 meq 200 200 In Water For Injection 1 100ml.bag @ 100 mls/hr IVPB Q1H [facility] Rx#: [id number] Sodium Chloride 0.9% 1, 50 000 ml @ 50 mls/hr IV . Q20H [facility] Rx#:[id number] Intake, IV Titration 520.567 6631.876 535.248 Amount Calcium Gluconate in NaCl 100 2 gm In Saline 1 100ml. bag @ 100 mls/hr IVPB ONCE ONE Rx#:[id number] Dexmedetomidine/0.9% NaCl 10.428 74.876 (Pmx) 400 mcg In Empty Bag 1 bag @ 0.2 MCG/KG/HR 3.515 mls/hr IV .Q24H [facility] Rx#:[id number] Dextrose 5% in Water 1, 150 000 ml @ 200 mls/hr IV . Q5H45M [facility] with Sodium Bicarb (1 Meq/ml) 150 ml Rx#:[id number] Norepinephrine 32 mg In 2.867 Sodium Chloride 0.9% 218 ml @ 0.03 MCG/KG/MIN 0. 989 mls/hr IV .Q24H [facility] Rx#:[id number] Norepinephrine 8 mg In 258.000 235.248 Sodium Chloride 0.9% 250 ml @ 0.14 MCG/KG/MIN 20. 236 mls/hr IV .[id number] [facility] Rx#:[id number] Sodium Chloride 0.9% 1, 150 000 ml @ 150 mls/hr IV . Q6H40M [facility] Rx#:[id number] Sodium Chloride 0.9% 1, 50 000 ml @ 50 mls/hr IV . Q20H [facility] Rx#:[id number] Sodium Chloride 0.9% 1, 1000 000 ml @ 999 mls/hr IV . Q1H1M [facility] Rx#:[id number] ceFAZolin 2 gm In Sodium 50 Chloride 0.9% 50 ml @ 100 mls/hr IVPB Q12HR [facility] Rx #:[id number] ceFAZolin 2 gm In Sodium 50 Chloride 0.9% 50 ml @ 100 mls/hr IVPB Q8HR [facility] Rx# :[id number] Output: Urine 710 675 60 Other: Voiding Method Indwelling Catheter Indwelling Catheter Indwelling Catheter - Labs CBC & Chem 7: 10/08/24 06:16 10/08/24 06:16 Labs: Abnormal Lab Results - Last 24 Hours (Table) 10/07/24 10/07/24 10/07/24 Range/Units 12:15 16:23 16:25 RBC (4.30-5.90) m/uL Hgb (13.0-17.5) gm/dL Hct (39.0-53.0) % MCV (80.0-100.0) fL MCH (25.0-35.0) pg Plt Count (150-450) k/uL Neutrophils # (Manual) (1.3-7.7) k/uL Lymphocytes # (Manual) (1.0-4.8) k/uL Metamyelocytes # (Man) (0) k/uL ABG pH (7.35-7.45) ABG pCO2 (35-45) mmHg ABG pO2 (83-108) mmHg ABG HCO3 (21-25) mmol/L ABG Total CO2 (19-24) mmol/L ABG O2 Saturation (94-97) % Hemoglobin (13.0-17.5) gm/dL Sodium 126 L (137-145) mmol/L Potassium (3.5-5.1) mmol/L Chloride (98-107) mmol/L Carbon Dioxide 18 L (22-30) mmol/L BUN 54 H (9-20) mg/dL Creatinine 2.62 H (0.66-1.25) mg/dL Glucose 176 H (74-99) mg/dL POC Glucose (mg/dL) 173 H 204 H (70-110) mg/dL Hemoglobin A1c (<=6.0) % Calcium 6.5 L (8.4-10.2) mg/dL AST (17-59) U/L ALT (4-49) U/L Creatine Kinase 94991 H* (55-170) U/L Total Protein (6.3-8.2) g/dL Albumin (3.5-5.0) g/dL 10/07/24 10/07/24 10/07/24 Range/Units 20:13 22:03 23:32 RBC (4.30-5.90) m/uL Hgb (13.0-17.5) gm/dL Hct (39.0-53.0) % MCV (80.0-100.0) fL MCH (25.0-35.0) pg Plt Count (150-450) k/uL Neutrophils # (Manual) (1.3-7.7) k/uL Lymphocytes # (Manual) (1.0-4.8) k/uL Metamyelocytes # (Man) (0) k/uL ABG pH 7.49 H (7.35-7.45) ABG pCO2 34 L (35-45) mmHg ABG pO2 56 L* (83-108) mmHg ABG HCO3 26 H (21-25) mmol/L ABG Total CO2 27 H (19-24) mmol/L ABG O2 Saturation 90.3 L (94-97) % Hemoglobin 10.0 L (13.0-17.5) gm/dL Sodium (137-145) mmol/L Potassium (3.5-5.1) mmol/L Chloride (98-107) mmol/L Carbon Dioxide (22-30) mmol/L BUN (9-20) mg/dL Creatinine (0.66-1.25) mg/dL Glucose (74-99) mg/dL POC Glucose (mg/dL) 255 H 278 H (70-110) mg/dL Hemoglobin A1c (<=6.0) % Calcium (8.4-10.2) mg/dL AST (17-59) U/L ALT (4-49) U/L Creatine Kinase (55-170) U/L Total Protein (6.3-8.2) g/dL Albumin (3.5-5.0) g/dL 10/08/24 10/08/24 10/08/24 Range/Units 04:40 06:16 06:16 RBC (4.30-5.90) m/uL Hgb (13.0-17.5) gm/dL Hct (39.0-53.0) % MCV (80.0-100.0) fL MCH (25.0-35.0) pg Plt Count (150-450) k/uL Neutrophils # (Manual) (1.3-7.7) k/uL Lymphocytes # (Manual) (1.0-4.8) k/uL Metamyelocytes # (Man) (0) k/uL ABG pH (7.35-7.45) ABG pCO2 (35-45) mmHg ABG pO2 (83-108) mmHg ABG HCO3 (21-25) mmol/L ABG Total CO2 (19-24) mmol/L ABG O2 Saturation (94-97) % Hemoglobin (13.0-17.5) gm/dL Sodium 131 L (137-145) mmol/L Potassium 3.0 L (3.5-5.1) mmol/L Chloride 92 L (98-107) mmol/L Carbon Dioxide 32 H (22-30) mmol/L BUN 50 H (9-20) mg/dL Creatinine 2.34 H (0.66-1.25) mg/dL Glucose 167 H (74-99) mg/dL POC Glucose (mg/dL) 202 H (70-110) mg/dL Hemoglobin A1c 8.9 H (<=6.0) % Calcium 6.3 L* (8.4-10.2) mg/dL AST 507 H (17-59) U/L ALT 136 H (4-49) U/L Creatine Kinase (55-170) U/L Total Protein 4.4 L (6.3-8.2) g/dL Albumin 2.2 L (3.5-5.0) g/dL 10/08/24 10/08/24 10/08/24 Range/Units 06:16 06:16 08:14 RBC 2.70 L (4.30-5.90) m/uL Hgb 10.0 L D (13.0-17.5) gm/dL Hct 29.0 L (39.0-53.0) % MCV 107.1 H (80.0-100.0) fL MCH 36.9 H (25.0-35.0) pg Plt Count 88 L (150-450) k/uL Neutrophils # (Manual) 8.80 H (1.3-7.7) k/uL Lymphocytes # (Manual) 0.09 L (1.0-4.8) k/uL Metamyelocytes # (Man) 0.09 H (0) k/uL ABG pH (7.35-7.45) ABG pCO2 (35-45) mmHg ABG pO2 (83-108) mmHg ABG HCO3 (21-25) mmol/L ABG Total CO2 (19-24) mmol/L ABG O2 Saturation (94-97) % Hemoglobin (13.0-17.5) gm/dL Sodium (137-145) mmol/L Potassium (3.5-5.1) mmol/L Chloride (98-107) mmol/L Carbon Dioxide (22-30) mmol/L BUN (9-20) mg/dL Creatinine (0.66-1.25) mg/dL Glucose (74-99) mg/dL POC Glucose (mg/dL) 167 H (70-110) mg/dL Hemoglobin A1c (<=6.0) % Calcium (8.4-10.2) mg/dL AST (17-59) U/L ALT (4-49) U/L Creatine Kinase 8796 H* (55-170) U/L Total Protein (6.3-8.2) g/dL Albumin (3.5-5.0) g/dL Microbiology - Last 24 Hours (Table) 10/06/24 15:53 Urine Culture - Final Urine,Catheterized 10/06/24 15:48 Blood Culture Gram Stain - Preliminary Blood Blood Culture - Preliminary Strep A Molecular ID Assessment and Plan Plan: Assessment: 1. Acute kidney injury secondary to ATN secondary to septic shock and rhabdomyolysis. Creatinine 3.18 on admission and is improved to 2.34. Baseline creatinine near 1. No hydronephrosis noted on kidney ultrasound. 2. Rhabdomyolysis secondary to immobility. CK levels trending down. 3. Strep bacteremia on antibiotics. 4. Anion gap metabolic acidosis secondary to acute kidney injury and lactic acidosis. Resolved with bicarb drip. 5. Hyponatremia secondary to hypovolemia as well as acute kidney injury. Better. 6. Hypomagnesemia from poor intake and alcohol abuse. Replaced. Better. 7. History of alcohol abuse. 8. Hypocalcemia secondary to acute kidney injury as well as intracellular shifting from bicarb. Being replaced. 9. Hypokalemia from intracellular shifting from IV bicarb. Being replaced. Plan: Bicarb drip changed to normal saline. Calcium being replaced. Repeat BMP as well as CK level this evening. Avoid nephrotoxins. Continue to monitor renal function and urine output. Wean Levophed.
[2024-10-08] MEDS: VASOPRESSIN 60 UNIT in SODIUM CHLORIDE 0.9% 150 ML IV SCH (10:07)
--- NOTE | 2024-10-08 11:01 | P.PN ---
Subjective Progress Note Date: 10/08/24 Principal diagnosis: Alcohol withdrawal syndrome. Patient is a 64-year-old male who is being seen in the ICU due to hypovolemic shock and rhabdomyolysis. He is a poor historian due to altered mental status and unresponsiveness. All history is obtained from the chart. He initially presented to the emergency department after being found facedown on the ground with a contusion to his forehead and abrasions to his knee and left toes. She stated that he had been having nausea and vomiting for a day prior to being found down. He was noted to have diarrhea as well. Patient is a daily drinker and consumes about a fifth per day according to the notes he has not drank for the 2 days prior to this admission. He also has a history of type 1 diabetes mellitus. Initial EKG showed sinus tachycardia. Head/cervical spine CT showed no acute intracranial process and no acute fracture or traumatic subluxation of the cervical spine. Initial chest x-ray showed right middle lobe scarring/atelectasis, no acute pulmonary process. He had received 4 L of normal saline. Initial labs showed CK level of 18,113, WBCs 10.7, hemoglobin 12.5, sodium 126, creatinine 3.18 lactic acid 6.9, AST 401, ALT 65. Preliminary blood culture showed gram-positive cocci and patient was started on vancomycin. 10/07/2024. He is maintained on a bicarb drip as well as normal saline. He remains unresponsive to verbal stimulation. He is maintained on CIWA protocol. Labs today: WBCs 5.1, hemoglobin 11.6, sodium 126, potassium 3.8, BUN 53, creatinine 3.12, ammonia <9. Progress note dated October 08, 2024. 64-year-old male seen in room 252. I was notified by the nurse at nighttime, that the patient's blood pressure continued to drop. We bumped up his dose of norepinephrine, and gave him a liter of fluid. In addition, his respiratory status was marginal, and the blood gas was ordered. The patient is currently on 6 L of oxygen. The patient was admitted on October 06. He is getting saline at 150 cc an hour, and Precedex at 0.4 mcg/kg/h. His norepinephrine is running at 31 mcg/min. There is staphylococci in his blood. I have asked the nurses to add Ativan Dilaudid and Haldol to his regimen, to try to wean him off the dexmedetomidine. White count of 9.1, hemoglobin hematocrit 29, platelet count 88,000. Sodium 131, potassium 3, chloride 92, CO2 32, BUN 50, creatinine 2.34. Glucose is 167. Calcium is 6.3. CK was 8796. AST is 507. ALT is 136. Albumin is 2.2. Blood cultures from the were positive for Streptococcus group A. Chest x-ray shows bilateral effusions, small, with low lung volumes. Objective - Vital Signs Vital signs: Vital Signs Temp 98.2 F 10/08/24 08:00 Pulse 73 10/08/24 10:00 Resp 24 10/08/24 10:00 BP 102/55 10/08/24 10:00 Pulse Ox 92 L 10/08/24 10:00 FiO2 Intake & Output 10/07/24 10/08/24 10/08/24 18:59 06:59 18:59 Intake Total 2863.295 3782.876 1571.924 Output Total 710 675 165 Balance 2153.295 3107.876 1406.924 Weight 74.7 kg 78.5 kg Intake: IV 2650 2400 700 Calcium Gluconate in NaCl 100 100 2 gm In Saline 1 100ml. bag @ 100 mls/hr IVPB ONCE ONE Rx#:[id number] Dextrose 5% in Water 1, 2100 2400 200 000 ml @ 200 mls/hr IV . Q5H45M PITO with Sodium Bicarb (1 Meq/ml) 150 ml Rx#:[id number] Magnesium Sulfate-D5w Pmx 200 1 gm In Dextrose/Water 1 100ml.bag @ 100 mls/hr IVPB Q1H [facility] Rx#: [id number] Potassium Chloride 10 meq 200 400 In Water For Injection 1 100ml.bag @ 100 mls/hr IVPB Q1H [facility] Rx#: [id number] Sodium Chloride 0.9% 1, 50 000 ml @ 50 mls/hr IV . Q20H [facility] Rx#:[id number] Intake, IV Titration 062.217 1107.876 871.924 Amount Calcium Gluconate in NaCl 100 2 gm In Saline 1 100ml. bag @ 100 mls/hr IVPB ONCE ONE Rx#:[id number] Dexmedetomidine/0.9% NaCl 10.428 74.876 36.676 (Pmx) 400 mcg In Empty Bag 1 bag @ 0.2 MCG/KG/HR 3.515 mls/hr IV .Q24H [facility] Rx#:[id number] Dextrose 5% in Water 1, 150 000 ml @ 200 mls/hr IV . Q5H45M PITO with Sodium Bicarb (1 Meq/ml) 150 ml Rx#:[id number] Norepinephrine 32 mg In 2.867 Sodium Chloride 0.9% 218 ml @ 0.03 MCG/KG/MIN 0. 989 mls/hr IV .Q24H [facility] Rx#:[id number] Norepinephrine 8 mg In 258.000 235.248 Sodium Chloride 0.9% 250 ml @ 0.14 MCG/KG/MIN 20. 236 mls/hr IV .[id number] [facility] Rx#:[id number] Sodium Chloride 0.9% 1, 450 000 ml @ 150 mls/hr IV . Q6H40M [facility] Rx#:[id number] Sodium Chloride 0.9% 1, 50 000 ml @ 50 mls/hr IV . Q20H [facility] Rx#:[id number] Sodium Chloride 0.9% 1, 1000 000 ml @ 999 mls/hr IV . Q1H1M [facility] Rx#:[id number] ceFAZolin 2 gm In Sodium 50 Chloride 0.9% 50 ml @ 100 mls/hr IVPB Q12HR [facility] Rx #:[id number] ceFAZolin 2 gm In Sodium 50 Chloride 0.9% 50 ml @ 100 mls/hr IVPB Q8HR [facility] Rx# :[id number] Output: Urine 710 675 165 Other: Voiding Method Indwelling Catheter Indwelling Catheter Indwelling Catheter ABP, PAP, CO, CI - Last Documented Arterial Blood Pressure 87/47 - Exam Confused, lethargic, moaning and groaning. No respiratory distress. HEENT examination is grossly unremarkable. Mucous membranes are dry. Neck supple. Full range of motion. No adenopathy thyromegaly or neck vein distention. Cardiovascular examination reveals regular rhythm rate. S1-S2 normal. No S3 or S4. No discernible murmur noted. Lungs reveal mild scattered rhonchi. No wheezes or crackles. Breath sounds equal. Abdomen soft, without bowel sounds. No masses or tenderness. Extremities are intact. No cyanosis clubbing or edema. Skin reveals multiple abrasions and bruises. Neurologic examination is difficult to evaluate. - Labs CBC & Chem 7: 10/08/24 06:16 10/08/24 06:16 Labs: Abnormal Lab Results - Last 24 Hours (Table) 10/07/24 10/07/24 10/07/24 Range/Units 12:15 16:23 16:25 RBC (4.30-5.90) m/uL Hgb (13.0-17.5) gm/dL Hct (39.0-53.0) % MCV (80.0-100.0) fL MCH (25.0-35.0) pg Plt Count (150-450) k/uL Neutrophils # (Manual) (1.3-7.7) k/uL Lymphocytes # (Manual) (1.0-4.8) k/uL Metamyelocytes # (Man) (0) k/uL ABG pH (7.35-7.45) ABG pCO2 (35-45) mmHg ABG pO2 (83-108) mmHg ABG HCO3 (21-25) mmol/L ABG Total CO2 (19-24) mmol/L ABG O2 Saturation (94-97) % Hemoglobin (13.0-17.5) gm/dL Sodium 126 L (137-145) mmol/L Potassium (3.5-5.1) mmol/L Chloride (98-107) mmol/L Carbon Dioxide 18 L (22-30) mmol/L BUN 54 H (9-20) mg/dL Creatinine 2.62 H (0.66-1.25) mg/dL Glucose 176 H (74-99) mg/dL POC Glucose (mg/dL) 173 H 204 H (70-110) mg/dL Hemoglobin A1c (<=6.0) % Calcium 6.5 L (8.4-10.2) mg/dL AST (17-59) U/L ALT (4-49) U/L Creatine Kinase 56302 H* (55-170) U/L Total Protein (6.3-8.2) g/dL Albumin (3.5-5.0) g/dL 10/07/24 10/07/24 10/07/24 Range/Units 20:13 22:03 23:32 RBC (4.30-5.90) m/uL Hgb (13.0-17.5) gm/dL Hct (39.0-53.0) % MCV (80.0-100.0) fL MCH (25.0-35.0) pg Plt Count (150-450) k/uL Neutrophils # (Manual) (1.3-7.7) k/uL Lymphocytes # (Manual) (1.0-4.8) k/uL Metamyelocytes # (Man) (0) k/uL ABG pH 7.49 H (7.35-7.45) ABG pCO2 34 L (35-45) mmHg ABG pO2 56 L* (83-108) mmHg ABG HCO3 26 H (21-25) mmol/L ABG Total CO2 27 H (19-24) mmol/L ABG O2 Saturation 90.3 L (94-97) % Hemoglobin 10.0 L (13.0-17.5) gm/dL Sodium (137-145) mmol/L Potassium (3.5-5.1) mmol/L Chloride (98-107) mmol/L Carbon Dioxide (22-30) mmol/L BUN (9-20) mg/dL Creatinine (0.66-1.25) mg/dL Glucose (74-99) mg/dL POC Glucose (mg/dL) 255 H 278 H (70-110) mg/dL Hemoglobin A1c (<=6.0) % Calcium (8.4-10.2) mg/dL AST (17-59) U/L ALT (4-49) U/L Creatine Kinase (55-170) U/L Total Protein (6.3-8.2) g/dL Albumin (3.5-5.0) g/dL 10/08/24 10/08/24 10/08/24 Range/Units 04:40 06:16 06:16 RBC (4.30-5.90) m/uL Hgb (13.0-17.5) gm/dL Hct (39.0-53.0) % MCV (80.0-100.0) fL MCH (25.0-35.0) pg Plt Count (150-450) k/uL Neutrophils # (Manual) (1.3-7.7) k/uL Lymphocytes # (Manual) (1.0-4.8) k/uL Metamyelocytes # (Man) (0) k/uL ABG pH (7.35-7.45) ABG pCO2 (35-45) mmHg ABG pO2 (83-108) mmHg ABG HCO3 (21-25) mmol/L ABG Total CO2 (19-24) mmol/L ABG O2 Saturation (94-97) % Hemoglobin (13.0-17.5) gm/dL Sodium 131 L (137-145) mmol/L Potassium 3.0 L (3.5-5.1) mmol/L Chloride 92 L (98-107) mmol/L Carbon Dioxide 32 H (22-30) mmol/L BUN 50 H (9-20) mg/dL Creatinine 2.34 H (0.66-1.25) mg/dL Glucose 167 H (74-99) mg/dL POC Glucose (mg/dL) 202 H (70-110) mg/dL Hemoglobin A1c 8.9 H (<=6.0) % Calcium 6.3 L* (8.4-10.2) mg/dL AST 507 H (17-59) U/L ALT 136 H (4-49) U/L Creatine Kinase (55-170) U/L Total Protein 4.4 L (6.3-8.2) g/dL Albumin 2.2 L (3.5-5.0) g/dL 10/08/24 10/08/24 10/08/24 Range/Units 06:16 06:16 08:14 RBC 2.70 L (4.30-5.90) m/uL Hgb 10.0 L D (13.0-17.5) gm/dL Hct 29.0 L (39.0-53.0) % MCV 107.1 H (80.0-100.0) fL MCH 36.9 H (25.0-35.0) pg Plt Count 88 L (150-450) k/uL Neutrophils # (Manual) 8.80 H (1.3-7.7) k/uL Lymphocytes # (Manual) 0.09 L (1.0-4.8) k/uL Metamyelocytes # (Man) 0.09 H (0) k/uL ABG pH (7.35-7.45) ABG pCO2 (35-45) mmHg ABG pO2 (83-108) mmHg ABG HCO3 (21-25) mmol/L ABG Total CO2 (19-24) mmol/L ABG O2 Saturation (94-97) % Hemoglobin (13.0-17.5) gm/dL Sodium (137-145) mmol/L Potassium (3.5-5.1) mmol/L Chloride (98-107) mmol/L Carbon Dioxide (22-30) mmol/L BUN (9-20) mg/dL Creatinine (0.66-1.25) mg/dL Glucose (74-99) mg/dL POC Glucose (mg/dL) 167 H (70-110) mg/dL Hemoglobin A1c (<=6.0) % Calcium (8.4-10.2) mg/dL AST (17-59) U/L ALT (4-49) U/L Creatine Kinase 8796 H* (55-170) U/L Total Protein (6.3-8.2) g/dL Albumin (3.5-5.0) g/dL Microbiology - Last 24 Hours (Table) 10/06/24 15:53 Urine Culture - Final Urine,Catheterized 10/06/24 15:48 Blood Culture Gram Stain - Preliminary Blood Blood Culture - Preliminary Strep A Molecular ID Assessment and Plan Assessment: Chronic alcohol abuse, with acute alcohol withdrawal syndrome. Status post fall, with rhabdomyolysis, secondary to immobility. Acute kidney injury, with acute tubular necrosis, secondary to sepsis, and rhabdomyolysis. Streptococcal group A, bacteremia, with septic shock. Lactic acidosis. Hyponatremia. History of coronary artery disease, with previous catheterization and stent placement. Diabetes mellitus. Gastroesophageal reflux disease. Hyperlipidemia. Hypertension. History of myocardial infarction. History of osteoarthritis. Plan: Plan dated October 08, 2024. An arterial line was placed, at the right radial site. It was done by the resident. It was sutured in place. A sterile dressing was applied by the nurse. In addition, the patient was placed on oxygen therapy, given his blood gases showing room air hypoxemia. In addition, the patient remains on Precedex at 0.4 mcg/kg/h, although, I did asked the nurses to give the patient Ativan, Dilaudid, and Haldol, to try to get him off the dexmedetomidine. The patient's norepinephrine dose is increased to 31 mcg/min. I asked the nurse, to start vasopressin at 0.03 units/min. Labs, x-rays, and medications are reviewed. The patient's BUN and creatinine today were 50 and 2.34. Blood gases yesterday showed a pO2 of 56, pCO2 34, pH is 7.49. This blood gases consistent with toxemia, and respiratory alkalosis. The patient continues on Ancef, for his group A streptococcal sepsis. Time with Patient: Greater than 30
[2024-10-08] MEDS: HYDROmorphone 1 MG/ML 1 ML SYRINGE IVP PRN (11:44)
[2024-10-08 11:56] LABS: Glucose,Whole Blood 35 mg/dL (70-110)
[2024-10-08 11:56] LABS: Glucose,Whole Blood 36 mg/dL (70-110)
[2024-10-08] MEDS: DEXTROSE 50% SYRINGE 50 ML IVP PRN (11:58)
--- NOTE | 2024-10-08 12:08 | P.GSCN ---
History of Present Illness Consult date: 10/08/24 Reason for Consult: Questionable PVD, toe wounds Requesting physician: Pierre Rubio History of present illness: This is a 64-year-old male who is being seen in the ICU and is unresponsive. History is being obtained from the chart and patient's who is at the bedside. He is an alcoholic who drinks heavily daily as well as a heavy smoker who was found unresponsive and brought into the emergency department. Past medical history includes coronary artery disease, diabetes mellitus, GERD, hyperlipidemia, hypertension and myocardial infarction. states that he is has a history of diabetes that has not been well-controlled. States that he does not take care of himself. Apparently patient was brought in and found to have a fever of 103.1 on admission. He has been afebrile since. Dr. Huynh. BELINDA: [id number] he was found to have rhabdomyolysis as well as elevated LFTs likely secondary to above. Patient admitted with sepsis. He is being followed by multiple consultants. He has wounds on his left second third and fourth toes with some cellulitis of the left foot. Vascular surgery was consulted for possible peripheral vascular disease. Patient's states he has no known peripheral arterial disease. He is a heavy daily smoker and daily alcohol use. Review of Systems ROS unobtainable: due to mental status Past Medical History Past Medical History: Coronary Artery Disease (CAD), Diabetes Mellitus, GERD/Reflux, Hyperlipidemia, Hypertension, Myocardial Infarction (ME), Osteoarthritis (OA) Additional Past Medical History / Comment(s): arthritis in fingers, knees, and neck area; NT in bilat arms Last Myocardial Infarction Date:: 2009 History of Any Multi-Drug Resistant Organisms: None Reported Past Surgical History: Heart Catheterization With Stent Additional Past Surgical History / Comment(s): ANAL FISSURE REPAIR, 2 cardiac stents, bhargavi cataracts. Pain proc Past Anesthesia/Blood Transfusion Reactions: No Reported Reaction Date of Last Stent Placement:: 2015 Past Psychological History: No Psychological Hx Reported Smoking Status: Former smoker Past Alcohol Use History: Daily - Past Family History Father Family Medical History: Cancer Additional Family Medical History / Comment(s): PANCREATIC Medications and Allergies Home Medications Medication Instructions Recorded Confirmed Type Aspirin [Adult Low Dose Aspirin EC] 81 mg PO DAILY 08/29/18 10/06/24 History Insulin Aspart [NovoLOG] See Protocol SQ AC-TID 08/29/18 10/06/24 History Insulin Glargine [Lantus Vial] 20 unit SQ DAILY 08/29/18 10/06/24 History Pantoprazole Sodium [Protonix] 40 mg PO DAILY 08/29/18 10/06/24 History lisinopriL [Zestril] 10 mg PO DAILY 08/29/18 10/06/24 History Atorvastatin [Lipitor] 80 mg PO DAILY #90 tab 10/26/18 10/06/24 Rx Metoprolol Tartrate [Lopressor] 50 mg PO BID 03/02/21 10/06/24 History HYDROcodone/APAP 7.5-325MG [[place] 1 tab PO BID PRN 10/06/24 10/06/24 History 7.5-325] Allergies Allergy/AdvReac Type Severity Reaction Status Date / Time No Known Allergies Allergy Verified 10/06/24 14:43 Surgical - Exam Vital Signs Temp Pulse Resp BP Pulse Ox 103.1 F H 110 H 18 128/109 93 L 10/06/24 14:30 10/06/24 14:30 10/06/24 14:30 10/06/24 14:30 10/06/24 14:30 General appearance: The patient is obtunded. HET: Head is normocephalic and atraumatic. Neck: Supple. Heart: Regular. Lungs: Equal expansion, normal respiratory effort. Abdomen: Soft, nontender, nondistended. Extremities: Bilateral lower extremity swelling, left greater than right. Left foot with mild erythema, dry diabetic wounds to his 2nd through 4th toes, dried callus to plantar aspect under great toe. Bilateral feet warm to the touch, good capillary refill. Multiphasic DP and PT signals. Palpable femoral pulses, possible faint palpable DP pulses. Neurological: Patient is obtunded. He does respond to painful stimuli. Results - Labs 10/08/24 06:16 10/08/24 06:16 Abnormal Lab Results - Last 24 Hours (Table) 10/07/24 10/07/24 10/07/24 Range/Units 05:47 09:32 12:15 RBC (4.30-5.90) m/uL Hgb (13.0-17.5) gm/dL Hct (39.0-53.0) % MCV (80.0-100.0) fL MCH (25.0-35.0) pg ABG pH (7.35-7.45) ABG pCO2 (35-45) mmHg ABG pO2 (83-108) mmHg ABG HCO3 (21-25) mmol/L ABG Total CO2 (19-24) mmol/L ABG O2 Saturation (94-97) % Hemoglobin (13.0-17.5) gm/dL Sodium (137-145) mmol/L Potassium (3.5-5.1) mmol/L Chloride (98-107) mmol/L Carbon Dioxide (22-30) mmol/L BUN (9-20) mg/dL Creatinine (0.66-1.25) mg/dL Glucose (74-99) mg/dL POC Glucose (mg/dL) 205 H 173 H (70-110) mg/dL Calcium (8.4-10.2) mg/dL Magnesium 1.4 L (1.6-2.3) mg/dL AST (17-59) U/L ALT (4-49) U/L Creatine Kinase (55-170) U/L Total Protein (6.3-8.2) g/dL Albumin (3.5-5.0) g/dL 10/07/24 10/07/24 10/07/24 Range/Units 16:23 16:25 20:13 RBC (4.30-5.90) m/uL Hgb (13.0-17.5) gm/dL Hct (39.0-53.0) % MCV (80.0-100.0) fL MCH (25.0-35.0) pg ABG pH (7.35-7.45) ABG pCO2 (35-45) mmHg ABG pO2 (83-108) mmHg ABG HCO3 (21-25) mmol/L ABG Total CO2 (19-24) mmol/L ABG O2 Saturation (94-97) % Hemoglobin (13.0-17.5) gm/dL Sodium 126 L (137-145) mmol/L Potassium (3.5-5.1) mmol/L Chloride (98-107) mmol/L Carbon Dioxide 18 L (22-30) mmol/L BUN 54 H (9-20) mg/dL Creatinine 2.62 H (0.66-1.25) mg/dL Glucose 176 H (74-99) mg/dL POC Glucose (mg/dL) 204 H 255 H (70-110) mg/dL Calcium 6.5 L (8.4-10.2) mg/dL Magnesium (1.6-2.3) mg/dL AST (17-59) U/L ALT (4-49) U/L Creatine Kinase 11985 H* (55-170) U/L Total Protein (6.3-8.2) g/dL Albumin (3.5-5.0) g/dL 10/07/24 10/07/24 10/08/24 Range/Units 22:03 23:32 04:40 RBC (4.30-5.90) m/uL Hgb (13.0-17.5) gm/dL Hct (39.0-53.0) % MCV (80.0-100.0) fL MCH (25.0-35.0) pg ABG pH 7.49 H (7.35-7.45) ABG pCO2 34 L (35-45) mmHg ABG pO2 56 L* (83-108) mmHg ABG HCO3 26 H (21-25) mmol/L ABG Total CO2 27 H (19-24) mmol/L ABG O2 Saturation 90.3 L (94-97) % Hemoglobin 10.0 L (13.0-17.5) gm/dL Sodium (137-145) mmol/L Potassium (3.5-5.1) mmol/L Chloride (98-107) mmol/L Carbon Dioxide (22-30) mmol/L BUN (9-20) mg/dL Creatinine (0.66-1.25) mg/dL Glucose (74-99) mg/dL POC Glucose (mg/dL) 278 H 202 H (70-110) mg/dL Calcium (8.4-10.2) mg/dL Magnesium (1.6-2.3) mg/dL AST (17-59) U/L ALT (4-49) U/L Creatine Kinase (55-170) U/L Total Protein (6.3-8.2) g/dL Albumin (3.5-5.0) g/dL 10/08/24 10/08/24 10/08/24 Range/Units 06:16 06:16 08:14 RBC 2.70 L (4.30-5.90) m/uL Hgb 10.0 L D (13.0-17.5) gm/dL Hct 29.0 L (39.0-53.0) % MCV 107.1 H (80.0-100.0) fL MCH 36.9 H (25.0-35.0) pg ABG pH (7.35-7.45) ABG pCO2 (35-45) mmHg ABG pO2 (83-108) mmHg ABG HCO3 (21-25) mmol/L ABG Total CO2 (19-24) mmol/L ABG O2 Saturation (94-97) % Hemoglobin (13.0-17.5) gm/dL Sodium 131 L (137-145) mmol/L Potassium 3.0 L (3.5-5.1) mmol/L Chloride 92 L (98-107) mmol/L Carbon Dioxide 32 H (22-30) mmol/L BUN 50 H (9-20) mg/dL Creatinine 2.34 H (0.66-1.25) mg/dL Glucose 167 H (74-99) mg/dL POC Glucose (mg/dL) 167 H (70-110) mg/dL Calcium 6.3 L* (8.4-10.2) mg/dL Magnesium (1.6-2.3) mg/dL AST 507 H (17-59) U/L ALT 136 H (4-49) U/L Creatine Kinase (55-170) U/L Total Protein 4.4 L (6.3-8.2) g/dL Albumin 2.2 L (3.5-5.0) g/dL Microbiology - Last 24 Hours (Table) 10/06/24 15:53 Urine Culture - Final Urine,Catheterized 10/06/24 15:48 Blood Culture Gram Stain - Preliminary Blood Blood Culture - Preliminary Strep A Molecular ID Diabetes panel 10/07/24 10/08/24 Range/Units 16:23 06:16 Sodium 126 L 131 L (137-145) mmol/L Potassium 4.1 3.0 L (3.5-5.1) mmol/L Chloride 98 92 L (98-107) mmol/L Carbon Dioxide 18 L 32 H (22-30) mmol/L BUN 54 H 50 H (9-20) mg/dL Creatinine 2.62 H 2.34 H (0.66-1.25) mg/dL Glucose 176 H 167 H (74-99) mg/dL Calcium 6.5 L 6.3 L* (8.4-10.2) mg/dL AST 507 H (17-59) U/L ALT 136 H (4-49) U/L Alkaline Phosphatase 95 (38-126) U/L Total Protein 4.4 L (6.3-8.2) g/dL Albumin 2.2 L (3.5-5.0) g/dL Calcium panel 10/07/24 10/08/24 Range/Units 16:23 06:16 Calcium 6.5 L 6.3 L* (8.4-10.2) mg/dL Albumin 2.2 L (3.5-5.0) g/dL Pituitary panel 10/07/24 10/08/24 Range/Units 16:23 06:16 Sodium 126 L 131 L (137-145) mmol/L Potassium 4.1 3.0 L (3.5-5.1) mmol/L Chloride 98 92 L (98-107) mmol/L Carbon Dioxide 18 L 32 H (22-30) mmol/L BUN 54 H 50 H (9-20) mg/dL Creatinine 2.62 H 2.34 H (0.66-1.25) mg/dL Glucose 176 H 167 H (74-99) mg/dL Calcium 6.5 L 6.3 L* (8.4-10.2) mg/dL Adrenal panel 10/07/24 10/08/24 Range/Units 16:23 06:16 Sodium 126 L 131 L (137-145) mmol/L Potassium 4.1 3.0 L (3.5-5.1) mmol/L Chloride 98 92 L (98-107) mmol/L Carbon Dioxide 18 L 32 H (22-30) mmol/L BUN 54 H 50 H (9-20) mg/dL Creatinine 2.62 H 2.34 H (0.66-1.25) mg/dL Glucose 176 H 167 H (74-99) mg/dL Calcium 6.5 L 6.3 L* (8.4-10.2) mg/dL Total Bilirubin 0.8 (0.2-1.3) mg/dL AST 507 H (17-59) U/L ALT 136 H (4-49) U/L Alkaline Phosphatase 95 (38-126) U/L Total Protein 4.4 L (6.3-8.2) g/dL Albumin 2.2 L (3.5-5.0) g/dL Assessment and Plan Assessment: 1. Left diabetic foot wounds 2. Diabetes mellitus 3. Altered mental status changes 4. Rhabdomyolysis 5. Bacteremia with sepsis 6. Alcohol abuse 7. Tobacco abuse Plan: 1. Arterial ultrasound of lower extremities ordered 2. No plans on any vascular surgical intervention at this time. Toe wounds likely not source of infection. Thank you for this consultation, further recommendations based on clinical course The impression and plan of care has been dictated as directed. I performed a history and examination of this patient, discussed the same with the dictator. I agree with the dictator's note ,documented as a scribe. Any additional findings or plans will be noted.
[2024-10-08 12:16] LABS: Glucose,Whole Blood 131 mg/dL (70-110)
--- NOTE | 2024-10-08 13:21 | US ---
EXAMINATION TYPE: US arterial LE multi level DATE OF EXAM: 10/08/2024 12:24 PM COMPARISONS: None. CLINICAL INDICATION: Male, 64 years old with history of Toe wounds, diabetic; ICU patient with left t oe wounds and discoloration TECHNIQUE: Systolic pressures were taken of the upper and lower extremity arteries with ankle-brachia l indices and toe brachial indices calculated bilaterally. History of: Smoker: Current Smoker Hypertension: Yes Diabetic: Yes Hyperlipidemia: Yes TIA/CVA: No Previous Vascular Surgery: heart stents CAD: No AK: Yes Vascular Ulcers: No Claudication: No Gangrene: No FINDINGS: Doppler Waveforms: Right: Multiphasic Left: Multiphasic Brachial Artery systolic pressure: Right: 0 Left: 124 Posterior Tibial artery systolic pressure: Right: 1.1 Left: 1.1 Dorsalis Pedis artery systolic pressure: Right: 1.2 Left: 1.1 Toe artery systolic pressure: Right: 61 Left: 31 Ankle-Brachial Indices: Right: 1.2 Left: 1.1 (Vessel hardening > 1.4; Normal 0.9 - 1.4, Moderate 0.7 - 0.9, Severe 0.5-0.7) Toe Brachial Indices: Right: 0.5 Left: 0.3 (Normal > 0.6; Mild 0.35 - 0.59, Moderate 0.12 - 0.34, Severe <0.12) IMPRESSION: 1. Normal ankle-brachial brachial indices bilaterally. 2. Moderate left and mild right toe brachial indices. [facility], , 10/08/2024 1:19 PM
[2024-10-08 13:34] LABS: Glucose,Whole Blood 81 mg/dL (70-110)
[2024-10-08] MEDS: DEXTROSE 5%-0.9% NACL 1,000 ML IV SCH (14:35)
--- NOTE | 2024-10-08 14:57 | P.PN ---
Subjective Progress Note Date: 10/08/24 Principal diagnosis: Reason for follow-up is Streptococcus agalactiae bacteremia Patient is a 64-year-old male past medical his significant for diabetes mellitus hypertension hyperlipidemia MS osteoarthritis coronary disease patient was brought into the hospital after apparently the patient was found to be facedown on the ground with contusion to his forehead and abrasion to his knee and some bloody toes, patient did have a fever subsequently blood cultures came back positive with Streptococcus agalactiae prompting this consultation. On today's evaluation that is 10/08/2024, the patient did have resolution of his fever the patient is afebrile this morning patient is currently breathing comfortably room air he did responded to his name but no other history could be obtained and no vomiting or diarrhea has been reported by the nursing staff. Patient white count is normal at 9.1, creatinine is 2.34 liver isms mildly elevated CK [place] 8796 [place] [address] Objective - Vital Signs Vital signs: Vital Signs Temp 98.2 F 10/08/24 11:30 Pulse 75 10/08/24 12:00 Resp 18 10/08/24 12:00 BP 133/74 10/08/24 12:00 Pulse Ox 97 10/08/24 12:00 FiO2 Intake & Output 10/07/24 10/08/24 10/08/24 18:59 06:59 18:59 Intake Total 2863.295 3782.876 1871.924 Output Total 710 675 315 Balance 2153.295 3107.876 1556.924 Weight 74.7 kg 78.5 kg Intake: IV 2650 2400 700 Calcium Gluconate in NaCl 100 100 2 gm In Saline 1 100ml. bag @ 100 mls/hr IVPB ONCE ONE Rx#:[id number] Dextrose 5% in Water 2099 2400 200 000 ml @ 200 mls/hr IV . Q5H45M PITO with Sodium Bicarb (1 Meq/ml) 150 ml Rx#:[id number] Magnesium Sulfate-D5w Pmx 200 1 gm In Dextrose/Water 1 100ml.bag @ 100 mls/hr IVPB Q1H PITO Rx#: [id number] Potassium Chloride 10 meq 200 400 In Water For Injection 1 100ml.bag @ 100 mls/hr IVPB Q1H PITO Rx#: [id number] Sodium Chloride 0.9% 1, 50 000 ml @ 50 mls/hr IV . Q20H [facility] Rx#:[id number] Intake, IV Titration 667.932 0386.876 1171.924 Amount Calcium Gluconate in NaCl 100 2 gm In Saline 1 100ml. bag @ 100 mls/hr IVPB ONCE ONE Rx#:[id number] Dexmedetomidine/0.9% NaCl 10.428 74.876 36.676 (Pmx) 400 mcg In Empty Bag 1 bag @ 0.2 MCG/KG/HR 3.515 mls/hr IV .Q24H [facility] Rx#:[id number] Dextrose 5% in Water 1, 150 000 ml @ 200 mls/hr IV . Q5H45M PITO with Sodium Bicarb (1 Meq/ml) 150 ml Rx#:[id number] Norepinephrine 32 mg In 2.867 Sodium Chloride 0.9% 218 ml @ 0.03 MCG/KG/MIN 0. 989 mls/hr IV .Q24H ONE Rx#:[id number] Norepinephrine 8 mg In 258.000 235.248 Sodium Chloride 0.9% 250 ml @ 0.14 MCG/KG/MIN 20. 236 mls/hr IV .[id number] [facility] Rx#:[id number] Sodium Chloride 0.9% 1, 750 000 ml @ 150 mls/hr IV . Q6H40M [facility] Rx#:[id number] Sodium Chloride 0.9% 1, 50 000 ml @ 50 mls/hr IV . Q20H [facility] Rx#:[id number] Sodium Chloride 0.9% 1, 1000 000 ml @ 999 mls/hr IV . Q1H1M ONE Rx#:[id number] ceFAZolin 2 gm In Sodium 50 Chloride 0.9% 50 ml @ 100 mls/hr IVPB Q12HR [facility] Rx #:[id number] ceFAZolin 2 gm In Sodium 50 Chloride 0.9% 50 ml @ 100 mls/hr IVPB Q8HR [facility] Rx# :[id number] Output: Urine 710 675 315 Other: Voiding Method Indwelling Catheter Indwelling Catheter Indwelling Catheter ABP, PAP, CO, CI - Last Documented Arterial Blood Pressure 125/46 - Exam GENERAL DESCRIPTION: Middle-age male lying in bed in no distress RESPIRATORY SYSTEM: Unlabored breathing , decreased breath sounds at bases HEART: S1 S2 regular rate and rhythm , ABDOMEN: Soft , no tenderness EXTREMITIES: No edema feet - Labs CBC & Chem 7: 10/08/24 06:16 10/08/24 13:30 Labs: Abnormal Lab Results - Last 24 Hours (Table) 10/07/24 10/07/24 10/07/24 Range/Units 12:15 16:23 16:25 RBC (4.30-5.90) m/uL Hgb (13.0-17.5) gm/dL Hct (39.0-53.0) % MCV (80.0-100.0) fL MCH (25.0-35.0) pg Plt Count (150-450) k/uL Neutrophils # (Manual) (1.3-7.7) k/uL Lymphocytes # (Manual) (1.0-4.8) k/uL Metamyelocytes # (Man) (0) k/uL ABG pH (7.35-7.45) ABG pCO2 (35-45) mmHg ABG pO2 (83-108) mmHg ABG HCO3 (21-25) mmol/L ABG Total CO2 (19-24) mmol/L ABG O2 Saturation (94-97) % Hemoglobin (13.0-17.5) gm/dL Sodium 126 L (137-145) mmol/L Potassium (3.5-5.1) mmol/L Chloride (98-107) mmol/L Carbon Dioxide 18 L (22-30) mmol/L BUN 54 H (9-20) mg/dL Creatinine 2.62 H (0.66-1.25) mg/dL Glucose 176 H (74-99) mg/dL POC Glucose (mg/dL) 173 H 204 H (70-110) mg/dL Hemoglobin A1c (<=6.0) % Calcium 6.5 L (8.4-10.2) mg/dL AST (17-59) U/L ALT (4-49) U/L Creatine Kinase 39803 H* (55-170) U/L Total Protein (6.3-8.2) g/dL Albumin (3.5-5.0) g/dL 10/07/24 10/07/24 10/07/24 Range/Units 20:13 22:03 23:32 RBC (4.30-5.90) m/uL Hgb (13.0-17.5) gm/dL Hct (39.0-53.0) % MCV (80.0-100.0) fL MCH (25.0-35.0) pg Plt Count (150-450) k/uL Neutrophils # (Manual) (1.3-7.7) k/uL Lymphocytes # (Manual) (1.0-4.8) k/uL Metamyelocytes # (Man) (0) k/uL ABG pH 7.49 H (7.35-7.45) ABG pCO2 34 L (35-45) mmHg ABG pO2 56 L* (83-108) mmHg ABG HCO3 26 H (21-25) mmol/L ABG Total CO2 27 H (19-24) mmol/L ABG O2 Saturation 90.3 L (94-97) % Hemoglobin 10.0 L (13.0-17.5) gm/dL Sodium (137-145) mmol/L Potassium (3.5-5.1) mmol/L Chloride (98-107) mmol/L Carbon Dioxide (22-30) mmol/L BUN (9-20) mg/dL Creatinine (0.66-1.25) mg/dL Glucose (74-99) mg/dL POC Glucose (mg/dL) 255 H 278 H (70-110) mg/dL Hemoglobin A1c (<=6.0) % Calcium (8.4-10.2) mg/dL AST (17-59) U/L ALT (4-49) U/L Creatine Kinase (55-170) U/L Total Protein (6.3-8.2) g/dL Albumin (3.5-5.0) g/dL 10/08/24 10/08/24 10/08/24 Range/Units 04:40 06:16 06:16 RBC (4.30-5.90) m/uL Hgb (13.0-17.5) gm/dL Hct (39.0-53.0) % MCV (80.0-100.0) fL MCH (25.0-35.0) pg Plt Count (150-450) k/uL Neutrophils # (Manual) (1.3-7.7) k/uL Lymphocytes # (Manual) (1.0-4.8) k/uL Metamyelocytes # (Man) (0) k/uL ABG pH (7.35-7.45) ABG pCO2 (35-45) mmHg ABG pO2 (83-108) mmHg ABG HCO3 (21-25) mmol/L ABG Total CO2 (19-24) mmol/L ABG O2 Saturation (94-97) % Hemoglobin (13.0-17.5) gm/dL Sodium 131 L (137-145) mmol/L Potassium 3.0 L (3.5-5.1) mmol/L Chloride 92 L (98-107) mmol/L Carbon Dioxide 32 H (22-30) mmol/L BUN 50 H (9-20) mg/dL Creatinine 2.34 H (0.66-1.25) mg/dL Glucose 167 H (74-99) mg/dL POC Glucose (mg/dL) 202 H (70-110) mg/dL Hemoglobin A1c 8.9 H (<=6.0) % Calcium 6.3 L* (8.4-10.2) mg/dL AST 507 H (17-59) U/L ALT 136 H (4-49) U/L Creatine Kinase (55-170) U/L Total Protein 4.4 L (6.3-8.2) g/dL Albumin 2.2 L (3.5-5.0) g/dL 10/08/24 10/08/24 10/08/24 Range/Units 06:16 06:16 08:14 RBC 2.70 L (4.30-5.90) m/uL Hgb 10.0 L D (13.0-17.5) gm/dL Hct 29.0 L (39.0-53.0) % MCV 107.1 H (80.0-100.0) fL MCH 36.9 H (25.0-35.0) pg Plt Count 88 L (150-450) k/uL Neutrophils # (Manual) 8.80 H (1.3-7.7) k/uL Lymphocytes # (Manual) 0.09 L (1.0-4.8) k/uL Metamyelocytes # (Man) 0.09 H (0) k/uL ABG pH (7.35-7.45) ABG pCO2 (35-45) mmHg ABG pO2 (83-108) mmHg ABG HCO3 (21-25) mmol/L ABG Total CO2 (19-24) mmol/L ABG O2 Saturation (94-97) % Hemoglobin (13.0-17.5) gm/dL Sodium (137-145) mmol/L Potassium (3.5-5.1) mmol/L Chloride (98-107) mmol/L Carbon Dioxide (22-30) mmol/L BUN (9-20) mg/dL Creatinine (0.66-1.25) mg/dL Glucose (74-99) mg/dL POC Glucose (mg/dL) 167 H (70-110) mg/dL Hemoglobin A1c (<=6.0) % Calcium (8.4-10.2) mg/dL AST (17-59) U/L ALT (4-49) U/L Creatine Kinase 8796 H* (55-170) U/L Total Protein (6.3-8.2) g/dL Albumin (3.5-5.0) g/dL 10/08/24 10/08/24 Range/Units 11:52 11:55 RBC (4.30-5.90) m/uL Hgb (13.0-17.5) gm/dL Hct (39.0-53.0) % MCV (80.0-100.0) fL MCH (25.0-35.0) pg Plt Count (150-450) k/uL Neutrophils # (Manual) (1.3-7.7) k/uL Lymphocytes # (Manual) (1.0-4.8) k/uL Metamyelocytes # (Man) (0) k/uL ABG pH (7.35-7.45) ABG pCO2 (35-45) mmHg ABG pO2 (83-108) mmHg ABG HCO3 (21-25) mmol/L ABG Total CO2 (19-24) mmol/L ABG O2 Saturation (94-97) % Hemoglobin (13.0-17.5) gm/dL Sodium (137-145) mmol/L Potassium (3.5-5.1) mmol/L Chloride (98-107) mmol/L Carbon Dioxide (22-30) mmol/L BUN (9-20) mg/dL Creatinine (0.66-1.25) mg/dL Glucose (74-99) mg/dL POC Glucose (mg/dL) 36 L* 35 L* (70-110) mg/dL Hemoglobin A1c (<=6.0) % Calcium (8.4-10.2) mg/dL AST (17-59) U/L ALT (4-49) U/L Creatine Kinase (55-170) U/L Total Protein (6.3-8.2) g/dL Albumin (3.5-5.0) g/dL Microbiology - Last 24 Hours (Table) 10/06/24 15:53 Urine Culture - Final Urine,Catheterized 10/06/24 15:48 Blood Culture Gram Stain - Preliminary Blood Blood Culture - Preliminary Strep A Molecular ID Assessment and Plan (1) Sepsis Current Visit: Yes Status: Acute Code(s): A41.9 - SEPSIS, UNSPECIFIED ORGANISM SNOMED Code(s): 02931008 (2) Streptococcal bacteremia Current Visit: Yes Status: Acute Code(s): R78.81 - BACTEREMIA; B95.5 - UNSP STREPTOCOCCUS THE CAUSE OF DISEASES [facility]SD [facility] SNOMED Code(s): 970430821005 Plan: 1patient presented to the hospital with sepsis in this patient who did have fever tachycardia elevated white count and now with evidence of streptococcal bacteremia which is usually of skin and soft tissue origin 2-patient with renal insufficiency and high risk of toxicity from vancomycin 3- blood culture have been repeated document clearance of his bacteremia and continue with the cefazolin at the bedside questions answered Dictation was produced using [employer] dictation software. please excuse any grammatical, word or spelling errors.
[2024-10-08 16:02] LABS: Glucose,Whole Blood 76 mg/dL (70-110)
--- NOTE | 2024-10-08 17:08 | PCN ---
PROCEDURE NOTE PROCEDURE: Right radial art line. PREOPERATIVE DIAGNOSES: Frequent blood draws, blood gas monitoring, and also hypotension. POSTOPERATIVE DIAGNOSES: Frequent blood draws, blood gas monitoring, and also hypotension. The patient's procedure was done in room 252. There was informed consent. We did the right radial artery. OPERATORS: Dr. Cortes, Dr. Latif, and Dr. Vega. ARTERIAL LINE PLACEMENT: Indications: Hemodynamic monitoring. A time-out was completed verifying correct patient, procedure, site, positioning, and implant(s) or special equipment if applicable. Pankaj's test was performed to ensure adequate perfusion. The patient's right/left wrist or right/left groin was prepped and draped in sterile fashion. 1% Lidocaine was used to anesthetize the area. An 18G Arrow arterial line was introduced into the radial/femoral artery. The catheter was threaded over the guide wire and the needle was removed with appropriate pulsatile blood return. Blood loss was minimal. The catheter was then sutured in place to the skin and a sterile dressing applied. Perfusion to the extremity distal to the point of catheter insertion was checked and found to be adequate. There was good waveform and blood pressure reading. The catheter was sutured in place. There was no immediate complication. Sterile dressing applied by the nurse. There was no immediate complication. The patient tolerated the procedure well. MMODL / IJN: [id number] /
[2024-10-08 18:01] LABS: Glucose,Whole Blood 109 mg/dL (70-110)
[2024-10-08 19:49] LABS: Glucose,Whole Blood 147 mg/dL (70-110)
[2024-10-08] MEDS: PANTOPRAZOLE 40 MG/10 ML VIAL IVP SCH (19:51)
[2024-10-08 23:56] LABS: Glucose,Whole Blood 211 mg/dL (70-110)
[2024-10-08] MEDS: HYDROmorphone 0.5 MG/0.5 ML SYRINGE IVP PRN (23:56)
[2024-10-09] MEDS: POTASSIUM CHLORIDE 10 MEQ in WATER FOR INJECTION 1 100ML.BAG IVPB SCH ×2 (00:23→06:47)
--- NOTE | 2024-10-09 03:24 | PN ---
PROGRESS NOTE DATE OF SERVICE: 10/08/2024 SUBJECTIVE: This is a 64-year-old gentleman admitted with sepsis and severe hypotension, is being closely monitored in ICU. The patient has significant alcohol problems, acute renal failure, rhabdomyolysis also. The patient is being closely monitored at this time. The patient has been maxed on pressor support. Strep pyogenes grown from the culture. Creatinine kinase is 796 today. The patient has some urine output and creatinine is 2.34 today. Sugars are fluctuating. PAST MEDICAL HISTORY: Reviewed. REVIEW OF SYSTEMS: Could not be taken. CURRENT MEDICATIONS: Reviewed. PHYSICAL EXAMINATION: VITAL SIGNS: Pulse is 75, blood pressure 138/74, respirations 18. CHEST: A few scattered rhonchi. No crackles. ABDOMEN: Soft. NERVOUS SYSTEM: No focal deficits. LABORATORY DATA: Creatinine is 2.34. ASSESSMENT: 1. Strep group A pyogenes, severe sepsis with septic shock and hypotension. 2. Change in mental status, acute metabolic encephalopathy multifactorial. 3. Acute rhabdomyolysis, acute renal failure secondary to rhabdomyolysis. 4. Acute delirium tremens. 5. History of EtOH. 6. Coronary artery disease. 7. Diabetes mellitus, type 2. 8. Hypertension. 9. Hyperlipidemia. 10.Multiple complex medical issues including coronary artery disease stent. RECOMMENDATIONS: Recommend to continue current management and continue symptomatic treatment. Otherwise, we will supplement calcium. Monitor blood sugars closely. WA protocol. Empiric antibiotics. Infectious Disease evaluation. I would also recommend a 2D echo with Doppler to estimate ejection fraction. Follow closely with multiple consultants. The patient also had cellulitis of the leg also. Guarded prognosis because of multiple complex medical issues. Repeat cultures also today. Further recommendations to follow. MMODL / IJN: [id number] /
[2024-10-09 04:17] LABS: Glucose,Whole Blood 284 mg/dL (70-110)
[2024-10-09 04:56] LABS: Basophils % (A) 0 %; Eosinophils # (A) 0.1 k/uL (0-0.7); Eosinophils % (A) 0 %; HCT 27.7 % (39.0-53.0); HGB 9.7 gm/dL (13.0-17.5); Lymphocytes # (A) 0.4 k/uL (1.0-4.8); Lymphocytes % (A) 3 %; MCH 38.1 pg (25.0-35.0); MCHC 34.9 g/dL (31.0-37.0); Macrocytosis Moderate; Mean Platelet Volume 10.9; Monocytes # (A) 0.4 k/uL (0-1.0); Monocytes % (A) 3 %; Neutrophils # (A) 11.3 k/uL (1.3-7.7); Neutrophils % (A) 92 %; RBC 2.54 m/uL (4.30-5.90); WBC 12.3 k/uL (3.8-10.6)
[2024-10-09 05:00] LABS: Platelet Count 48 k/uL (150-450)
[2024-10-09 05:29] LABS: ALT 78 U/L (4-49); AST 323 U/L (17-59); African American GFR (CKD) 52 (>60 ml/min/1.73 sqM); Albumin 2.2 g/dL (3.5-5.0); Alkaline Phosphatase 166 U/L (38-126); Anion Gap 9 mmol/L; Blood Urea Nitrogen 42 mg/dL (9-20); Carbon Dioxide 19 mmol/L (22-30); Chloride 105 mmol/L (98-107); Glucose 267 mg/dL (74-99); Magnesium 1.6 mg/dL (1.6-2.3); Non-African American GFR(CKD) 45 (>60 ml/min/1.73 sqM); Potassium 3.7 mmol/L (3.5-5.1); Sodium 133 mmol/L (137-145); Total Protein 4.6 g/dL (6.3-8.2)
[2024-10-09 06:14] LABS: Calcium 6.4 mg/dL (8.4-10.2); Creatine Kinase 3888 U/L (55-170)
--- NOTE | 2024-10-09 08:15 | XR ---
EXAMINATION TYPE: XR chest 1V portable DATE OF EXAM: 10/09/2024 5:15 AM COMPARISON: Chest radiographs from 10/08/2024 CLINICAL INDICATION: Male, 64 years old with history of chf; TECHNIQUE: XR chest 1V portable Frontal view of the chest. FINDINGS: Lungs/Pleura: No evidence of focal consolidation or pneumothorax. Blunting of the costophrenic angles is present. Pulmonary vascularity: Pulmonary vascular congestion. Heart/mediastinum: Cardiomediastinal silhouette is enlarged. Musculoskeletal: No acute osseous pathology. Other findings: None Lines/Tubes: IMPRESSION: Cardiomegaly, pulmonary vascular congestion and bilateral pleural effusions. Correlate with BNP for c ongestive heart failure. [facility], , 10/09/2024 8:13 AM
[2024-10-09 08:28] LABS: Glucose,Whole Blood 264 mg/dL (70-110)
[2024-10-09] MEDS: MAGNESIUM SULFATE-D5W PMX 1 GM in DEXTROSE/WATER 1 100ML.BAG IVPB SCH (09:30)
--- NOTE | 2024-10-09 09:40 | P.CNOR ---
History of Present Illness - [facility] Consult date: 10/09/24 Consult reason: other (Right knee swelling) History of present illness: Patient is a 64-year-old male who was brought in to [facility] 10/06/2024 after being found on the ground by his . He was brought into the hospital by EMS. Patient known history of alcohol abuse. Patient underwent mul tip imaging and lab test, he was admitted to [facility] and transferred to the ICU for further management. Patient is being followed by multiple medical specialties at this time, this to include pulmonology, internal medicine, nephrology, vascular and infectious disease. Our orthopedic team was consulted due to the right knee swelling. Patient was evaluated today at bedside, he is resting in his hospital bed. Discussed with the nurse most of the patient's history due to his mental state. according to nursing, patient has been improving since yesterday. X-rays of the right knee and left knee were obtained in the emergency room. No acute fractures or dislocations noted. Severe degenerative changes noted throughout the bilateral knees, no effusion was noted on the right knee. On admission patient's blood culture that was taken does show bacteremia. I was unable to ob tain much of a history today at bedside due to patient's mental state. Plan to discuss patient's medical history further detail with /daughter when present. Review of Systems Constitutional: Reports as per HPI Past Medical History Past Medical History: Coronary Artery Disease (CAD), Diabetes Mellitus, GERD/Reflux, Hyperlipidemia, Hypertension, Myocardial Infarction ([place]), Osteoarthritis (OA) Additional Past Medical History / Comment(s): arthritis in fingers, knees, and neck area; NT in bilat arms Last Myocardial Infarction Date:: 2009 History of Any Multi-Drug Resistant Organisms: None Reported Past Surgical History: Heart Catheterization With Stent Additional Past Surgical History / Comment(s): ANAL FISSURE REPAIR, 2 cardiac stents, bhargavi cataracts. Pain proc Past Anesthesia/Blood Transfusion Reactions: No Reported Reaction Date of Last Stent Placement:: 2015 Past Psychological History: No Psychological Hx Reported Smoking Status: Former smoker Past Alcohol Use History: Daily - Past Family History Father Family Medical History: Cancer Additional Family Medical History / Comment(s): PANCREATIC Medications and Allergies Home Medications Medication Instructions Recorded Confirmed Type Aspirin [Adult Low Dose Aspirin EC] 81 mg PO DAILY 08/29/18 10/06/24 History Insulin Aspart [NovoLOG] See Protocol SQ AC-TID 08/29/18 10/06/24 History Insulin Glargine [Lantus Vial] 20 unit SQ DAILY 08/29/18 10/06/24 History Pantoprazole Sodium [Protonix] 40 mg PO DAILY 08/29/18 10/06/24 History lisinopriL [Zestril] 10 mg PO DAILY 08/29/18 10/06/24 History Atorvastatin [Lipitor] 80 mg PO DAILY #90 tab 10/26/18 10/06/24 Rx Metoprolol Tartrate [Lopressor] 50 mg PO BID 03/02/21 10/06/24 History HYDROcodone/APAP 7.5-325MG [[place] 1 tab PO BID PRN 10/06/24 10/06/24 History 7.5-325] Allergies Allergy/AdvReac Type Severity Reaction Status Date / Time No Known Allergies Allergy Verified 10/06/24 14:43 Physical Examination Right lower extremity: No obvious open lesions, sores or areas of erythema surrounding the knee. There is some abrasions and wounds to the right foot. Notable effusion present over the right knee Patient demonstrates no significant tenderness with palpation surrounding the knee. No obvious visual pain signs are elected with palpation of the upper thigh, the lower leg, the foot or ankle Passive range of motion of the knee reproduces no significant pain cues, was able to flex him to about 90 degrees and fully extend His calf is soft, there is no significant swelling present Patient was very uncooperative with range of motion exercises at bedside Dorsalis pedis pulses 2+ Results - Labs Labs: Abnormal Lab Results - Last 24 Hours (Table) 10/08/24 10/08/24 10/08/24 Range/Units 11:52 11:55 12:14 WBC (3.8-10.6) k/uL RBC (4.30-5.90) m/uL Hgb (13.0-17.5) gm/dL Hct (39.0-53.0) % MCV (80.0-100.0) fL MCH (25.0-35.0) pg Plt Count (150-450) k/uL Neutrophils # (1.3-7.7) k/uL Lymphocytes # (1.0-4.8) k/uL Sodium (137-145) mmol/L Carbon Dioxide (22-30) mmol/L BUN (9-20) mg/dL Creatinine (0.66-1.25) mg/dL Glucose (74-99) mg/dL POC Glucose (mg/dL) 36 L* 35 L* 131 H (70-110) mg/dL Calcium (8.4-10.2) mg/dL Total Bilirubin (0.2-1.3) mg/dL AST (17-59) U/L ALT (4-49) U/L Alkaline Phosphatase (38-126) U/L Creatine Kinase (55-170) U/L Total Protein (6.3-8.2) g/dL Albumin (3.5-5.0) g/dL 10/08/24 10/08/24 10/09/24 Range/Units 19:48 23:54 04:16 WBC (3.8-10.6) k/uL RBC (4.30-5.90) m/uL Hgb (13.0-17.5) gm/dL Hct (39.0-53.0) % MCV (80.0-100.0) fL MCH (25.0-35.0) pg Plt Count (150-450) k/uL Neutrophils # (1.3-7.7) k/uL Lymphocytes # (1.0-4.8) k/uL Sodium (137-145) mmol/L Carbon Dioxide (22-30) mmol/L BUN (9-20) mg/dL Creatinine (0.66-1.25) mg/dL Glucose (74-99) mg/dL POC Glucose (mg/dL) 147 H 211 H 284 H (70-110) mg/dL Calcium (8.4-10.2) mg/dL Total Bilirubin (0.2-1.3) mg/dL AST (17-59) U/L ALT (4-49) U/L Alkaline Phosphatase (38-126) U/L Creatine Kinase (55-170) U/L Total Protein (6.3-8.2) g/dL Albumin (3.5-5.0) g/dL 10/09/24 10/09/24 10/09/24 Range/Units 04:49 04:49 08:27 WBC 12.3 H (3.8-10.6) k/uL RBC 2.54 L (4.30-5.90) m/uL Hgb 9.7 L (13.0-17.5) gm/dL Hct 27.7 L (39.0-53.0) % MCV 109.0 H (80.0-100.0) fL MCH 38.1 H (25.0-35.0) pg Plt Count 48 L (150-450) k/uL Neutrophils # 11.3 H (1.3-7.7) k/uL Lymphocytes # 0.4 L (1.0-4.8) k/uL Sodium 133 L (137-145) mmol/L Carbon Dioxide 19 L (22-30) mmol/L BUN 42 H (9-20) mg/dL Creatinine 1.62 H (0.66-1.25) mg/dL Glucose 267 H (74-99) mg/dL POC Glucose (mg/dL) 264 H (70-110) mg/dL Calcium 6.4 L* (8.4-10.2) mg/dL Total Bilirubin 2.0 H (0.2-1.3) mg/dL AST 323 H (17-59) U/L ALT 78 H (4-49) U/L Alkaline Phosphatase 166 H (38-126) U/L Creatine Kinase 3888 H* (55-170) U/L Total Protein 4.6 L (6.3-8.2) g/dL Albumin 2.2 L (3.5-5.0) g/dL Microbiology - Last 24 Hours (Table) 10/06/24 15:48 Blood Culture Gram Stain - Final Blood Blood Culture - Final Strep A Molecular ID 10/07/24 16:26 Blood Culture - Preliminary Blood 10/06/24 15:53 Urine Culture - Final Urine,Catheterized H & H 10/06/24 10/07/24 10/08/24 Range/Units 14:42 05:47 06:16 Hgb 12.5 L 11.6 L 10.0 L D (13.0-17.5) gm/dL Hct 36.6 L 33.9 L 29.0 L (39.0-53.0) % 10/09/24 Range/Units 04:49 Hgb 9.7 L (13.0-17.5) gm/dL Hct 27.7 L (39.0-53.0) % Coagulation 10/06/24 Range/Units 14:42 INR 1.3 H (<1.2) Result Diagrams: 10/09/24 04:49 10/09/24 04:49 - Diagnostic results Knee x-ray: report reviewed, image reviewed Assessment and Plan Assessment: Right knee effusion Right knee osteoarthritis Left knee osteoarthritis Bacteremia Alcohol abuse Multiple medical comorbidities Plan: Imaging: AP, lateral and oblique views of the bilateral knees were reviewed from 10/06, this to include images and report. Images demonstrate no acute fractures or dislocations. Osteoarthritic changes are appreciated to the bilateral knees, more severe on the right compared to the left this to include the medial joint joint space. There is chondrocalcinosis noted in the bilateral knees. Plan: Will discuss the case with my attending Dr. Funk. Low concern for septic arthropathy at this time. Will discuss with patient hopefully as his mental state improves along with the family about the possibility of an aspiration with or without cortisone injection. If we do proceed with aspiration, plan to send off fluid to the lab for further evaluation Recommend conservative measures at this time, icing and elevating Weight-bear as tolerated Other medical specialty recommendations appreciated GI DVT prophylaxis per primary medical service Further recommendations to follow Time with Patient: Less than 30
--- NOTE | 2024-10-09 09:58 | P.PN ---
Subjective Patient is seen in follow-up for acute kidney injury. Renal function improving. Currently on Levophed and vasopressin. Nonoliguric. Vital signs are stable. On vasopressor support. General: No acute distress. HEENT: Head exam is unremarkable. On nasal cannula. LUNGS: No audible rhonchi or wheezes. HEART: Rate and Rhythm are regular. ABDOMEN: No distention. EXTREMITITES: No edema. Objective - Vital Signs Vital signs: Vital Signs Temp 98.9 F 10/09/24 04:00 Pulse 86 10/09/24 07:00 Resp 27 H 10/09/24 07:00 BP 123/62 10/09/24 07:00 Pulse Ox 94 L 10/09/24 07:00 FiO2 Intake & Output 10/08/24 10/09/24 10/09/24 18:59 06:59 18:59 Intake Total 3299.630 2851.558 521.735 Output Total 655 860 125 Balance 2644.630 1991.558 396.735 Weight 84.9 kg Intake: IV 700 220 20 0.9 kvo 220 20 Calcium Gluconate in NaCl 100 2 gm In Saline 1 100ml. bag @ 100 mls/hr IVPB ONCE ONE Rx#:[id number] Dextrose 5% in Water 1, 200 000 ml @ 200 mls/hr IV . Q5H45M PITO with Sodium Bicarb (1 Meq/ml) 150 ml Rx#:[id number] Potassium Chloride 10 meq 400 In Water For Injection 1 100ml.bag @ 100 mls/hr IVPB Q1H PITO Rx#: [id number] Intake, IV Titration 2539.630 2611.558 501.735 Amount Calcium Gluconate in NaCl 100 2 gm In Saline 1 100ml. bag @ 100 mls/hr IVPB ONCE ONE Rx#:[id number] Dexmedetomidine/0.9% NaCl 38.082 (Pmx) 400 mcg In Empty Bag 1 bag @ 0.2 MCG/KG/HR 3.515 mls/hr IV .Q24H PITO Rx#:[id number] Norepinephrine 8 mg In 551.548 611.558 148.893 Sodium Chloride 0.9% 250 ml @ 0.14 MCG/KG/MIN 20. 236 mls/hr IV .[id number] PITO Rx#:[id number] Potassium Chloride 10 meq 100 100 In Water For Injection 1 100ml.bag @ 100 mls/hr IVPB Q1H PITO Rx#: [id number] Potassium Chloride 20 meq 100 In Water For Injection 1 100ml.bag @ 50 mls/hr IVPB ONCE STA Rx#: [id number] Potassium Chloride 20 meq 100 100 In Water For Injection 1 100ml.bag @ 50 mls/hr IVPB Q2H PITO Rx#: [id number] Sodium Chloride 0.9% 1, 1650 1650 150 000 ml @ 150 mls/hr IV . Q6H40M PITO Rx#:[id number] Vasopressin 60 unit In 102.842 Sodium Chloride 0.9% 150 ml @ 0.03 UNITS/MIN 4.59 mls/hr IV .Q24H PITO Rx#: [id number] ceFAZolin 2 gm In Sodium 50 Chloride 0.9% 50 ml @ 100 mls/hr IVPB Q12HR PITO Rx #:[id number] ceFAZolin 2 gm In Sodium 100 Chloride 0.9% 50 ml @ 100 mls/hr IVPB Q8HR [facility] Rx# :[id number] TPN/PPN 60 20 0.9 kvo 60 20 Output: Urine 655 860 125 Other: Voiding Method Indwelling Catheter Indwelling Catheter ABP, PAP, CO, CI - Last Documented Arterial Blood Pressure 127/49 - Labs CBC & Chem 7: 10/09/24 04:49 10/09/24 04:49 Labs: Abnormal Lab Results - Last 24 Hours (Table) 10/08/24 10/08/24 10/08/24 Range/Units 11:52 11:55 12:14 WBC (3.8-10.6) k/uL RBC (4.30-5.90) m/uL Hgb (13.0-17.5) gm/dL Hct (39.0-53.0) % MCV (80.0-100.0) fL MCH (25.0-35.0) pg Plt Count (150-450) k/uL Neutrophils # (1.3-7.7) k/uL Lymphocytes # (1.0-4.8) k/uL Sodium (137-145) mmol/L Carbon Dioxide (22-30) mmol/L BUN (9-20) mg/dL Creatinine (0.66-1.25) mg/dL Glucose (74-99) mg/dL POC Glucose (mg/dL) 36 L* 35 L* 131 H (70-110) mg/dL Calcium (8.4-10.2) mg/dL Total Bilirubin (0.2-1.3) mg/dL AST (17-59) U/L ALT (4-49) U/L Alkaline Phosphatase (38-126) U/L Creatine Kinase (55-170) U/L Total Protein (6.3-8.2) g/dL Albumin (3.5-5.0) g/dL 10/08/24 10/08/24 10/09/24 Range/Units 19:48 23:54 04:16 WBC (3.8-10.6) k/uL RBC (4.30-5.90) m/uL Hgb (13.0-17.5) gm/dL Hct (39.0-53.0) % MCV (80.0-100.0) fL MCH (25.0-35.0) pg Plt Count (150-450) k/uL Neutrophils # (1.3-7.7) k/uL Lymphocytes # (1.0-4.8) k/uL Sodium (137-145) mmol/L Carbon Dioxide (22-30) mmol/L BUN (9-20) mg/dL Creatinine (0.66-1.25) mg/dL Glucose (74-99) mg/dL POC Glucose (mg/dL) 147 H 211 H 284 H (70-110) mg/dL Calcium (8.4-10.2) mg/dL Total Bilirubin (0.2-1.3) mg/dL AST (17-59) U/L ALT (4-49) U/L Alkaline Phosphatase (38-126) U/L Creatine Kinase (55-170) U/L Total Protein (6.3-8.2) g/dL Albumin (3.5-5.0) g/dL 10/09/24 10/09/24 10/09/24 Range/Units 04:49 04:49 08:27 WBC 12.3 H (3.8-10.6) k/uL RBC 2.54 L (4.30-5.90) m/uL Hgb 9.7 L (13.0-17.5) gm/dL Hct 27.7 L (39.0-53.0) % MCV 109.0 H (80.0-100.0) fL MCH 38.1 H (25.0-35.0) pg Plt Count 48 L (150-450) k/uL Neutrophils # 11.3 H (1.3-7.7) k/uL Lymphocytes # 0.4 L (1.0-4.8) k/uL Sodium 133 L (137-145) mmol/L Carbon Dioxide 19 L (22-30) mmol/L BUN 42 H (9-20) mg/dL Creatinine 1.62 H (0.66-1.25) mg/dL Glucose 267 H (74-99) mg/dL POC Glucose (mg/dL) 264 H (70-110) mg/dL Calcium 6.4 L* (8.4-10.2) mg/dL Total Bilirubin 2.0 H (0.2-1.3) mg/dL AST 323 H (17-59) U/L ALT 78 H (4-49) U/L Alkaline Phosphatase 166 H (38-126) U/L Creatine Kinase 3888 H* (55-170) U/L Total Protein 4.6 L (6.3-8.2) g/dL Albumin 2.2 L (3.5-5.0) g/dL Microbiology - Last 24 Hours (Table) 10/06/24 15:48 Blood Culture Gram Stain - Final Blood Blood Culture - Final Strep A Molecular ID 10/07/24 16:26 Blood Culture - Preliminary Blood 10/06/24 15:53 Urine Culture - Final Urine,Catheterized Assessment and Plan Plan: Assessment: 1. Acute kidney injury secondary to ATN secondary to septic shock and rhabdomyolysis. Creatinine 3.18 on admission and is improved to 1.62. Baseline creatinine near 1. No hydronephrosis noted on kidney ultrasound. 2. Rhabdomyolysis secondary to immobility. CK levels trending down. 3. Strep bacteremia on antibiotics. 4. Anion gap metabolic acidosis secondary to acute kidney injury and lactic acidosis. Status post bicarb drip. 5. Hyponatremia secondary to hypovolemia as well as acute kidney injury. Better. 6. Hypomagnesemia from poor intake and alcohol abuse. Being replaced. 7. History of alcohol abuse. 8. Hypocalcemia secondary to acute kidney injury as well as intracellular shifting from bicarb. Being replaced. 9. Hypokalemia from poor intake. Being replaced. Plan: Blood sugars running high. NG tube will be inserted to start nutrition. Change fluids to normal saline at 150 cc an hour. Replace electrolytes as needed. Repeat labs in the morning. Avoid nephrotoxins. Continue to monitor renal function and urine output. Wean vasopressors.
[2024-10-09] MEDS: CALCIUM GLUCONATE IN NACL 2 GM in SALINE 1 100ML.BAG IVPB ONE (10:09)
[2024-10-09] MEDS: SODIUM CHLORIDE 0.9% 1,000 ML IV SCH (10:10)
--- NOTE | 2024-10-09 11:14 | P.PN ---
Subjective Progress Note Date: 10/09/24 Principal diagnosis: Diabetic toe ulcers Patient is seen and examined as a follow-up in the ICU. Remains somewhat obtunded but is able to answer some simple questions. He underwent arterial ultrasound of bilateral lower extremities. ABIs were normal bilaterally. He does have some tenderness in that left foot. Right knee swelling for which orthopedics has been consulted. Objective - Vital Signs Vital signs: Vital Signs Temp 98.9 F 10/09/24 04:00 Pulse 86 10/09/24 07:00 Resp 27 H 10/09/24 07:00 BP 123/62 10/09/24 07:00 Pulse Ox 94 L 10/09/24 07:00 FiO2 Intake & Output 10/08/24 10/09/24 10/09/24 18:59 06:59 18:59 Intake Total 3299.630 2851.558 521.735 Output Total 655 860 125 Balance 2644.630 1991.558 396.735 Weight 84.9 kg Intake: IV 700 220 20 0.9 kvo 220 20 Calcium Gluconate in NaCl 100 2 gm In Saline 1 100ml. bag @ 100 mls/hr IVPB ONCE ONE Rx#:[id number] Dextrose 5% in Water 1, 200 000 ml @ 200 mls/hr IV . Q5H45M PITO with Sodium Bicarb (1 Meq/ml) 150 ml Rx#:[id number] Potassium Chloride 10 meq 400 In Water For Injection 1 100ml.bag @ 100 mls/hr IVPB Q1H PITO Rx#: [id number] Intake, IV Titration 2539.630 2611.558 501.735 Amount Calcium Gluconate in NaCl 100 2 gm In Saline 1 100ml. bag @ 100 mls/hr IVPB ONCE ONE Rx#:[id number] Dexmedetomidine/0.9% NaCl 38.082 (Pmx) 400 mcg In Empty Bag 1 bag @ 0.2 MCG/KG/HR 3.515 mls/hr IV .Q24H PITO Rx#:[id number] Norepinephrine 8 mg In 551.548 611.558 148.893 Sodium Chloride 0.9% 250 ml @ 0.14 MCG/KG/MIN 20. 236 mls/hr IV .[id number] PITO Rx#:[id number] Potassium Chloride 10 meq 100 100 In Water For Injection 1 100ml.bag @ 100 mls/hr IVPB Q1H PITO Rx#: [id number] Potassium Chloride 20 meq 100 In Water For Injection 1 100ml.bag @ 50 mls/hr IVPB ONCE [facility] Rx#: [id number] Potassium Chloride 20 meq 100 100 In Water For Injection 1 100ml.bag @ 50 mls/hr IVPB Q2H PITO Rx#: [id number] Sodium Chloride 0.9% 1, 1650 1650 150 000 ml @ 150 mls/hr IV . Q6H40M PITO Rx#:[id number] Vasopressin 60 unit In 102.842 Sodium Chloride 0.9% 150 ml @ 0.03 UNITS/MIN 4.59 mls/hr IV .Q24H PITO Rx#: [id number] ceFAZolin 2 gm In Sodium 50 Chloride 0.9% 50 ml @ 100 mls/hr IVPB Q12HR PITO Rx #:[id number] ceFAZolin 2 gm In Sodium 100 Chloride 0.9% 50 ml @ 100 mls/hr IVPB Q8HR PITO Rx# :[id number] TPN/PPN 60 20 0.9 kvo 60 20 Output: Urine 655 860 125 Other: Voiding Method Indwelling Catheter Indwelling Catheter ABP, PAP, CO, CI - Last Documented Arterial Blood Pressure 127/49 - Exam General appearance: The patient is alert, obtunded. HET: Head is normocephalic and atraumatic. Neck: Supple. Abdomen: Soft, nondistended. Extremities: Lower extremity swelling bilaterally. Mild erythema to dorsal as pect of left foot. Bilateral lower extremities warm to the touch with good capillary refill. Palpable bilateral DP pulses. Neurological: Alert, somewhat obtunded. - Labs CBC & Chem 7: 10/09/24 04:49 10/09/24 04:49 Labs: Abnormal Lab Results - Last 24 Hours (Table) 10/08/24 10/08/24 10/08/24 Range/Units 11:52 11:55 12:14 WBC (3.8-10.6) k/uL RBC (4.30-5.90) m/uL Hgb (13.0-17.5) gm/dL Hct (39.0-53.0) % MCV (80.0-100.0) fL MCH (25.0-35.0) pg Plt Count (150-450) k/uL Neutrophils # (1.3-7.7) k/uL Lymphocytes # (1.0-4.8) k/uL Sodium (137-145) mmol/L Carbon Dioxide (22-30) mmol/L BUN (9-20) mg/dL Creatinine (0.66-1.25) mg/dL Glucose (74-99) mg/dL POC Glucose (mg/dL) 36 L* 35 L* 131 H (70-110) mg/dL Calcium (8.4-10.2) mg/dL Total Bilirubin (0.2-1.3) mg/dL AST (17-59) U/L ALT (4-49) U/L Alkaline Phosphatase (38-126) U/L Creatine Kinase (55-170) U/L Total Protein (6.3-8.2) g/dL Albumin (3.5-5.0) g/dL 10/08/24 10/08/24 10/09/24 Range/Units 19:48 23:54 04:16 WBC (3.8-10.6) k/uL RBC (4.30-5.90) m/uL Hgb (13.0-17.5) gm/dL Hct (39.0-53.0) % MCV (80.0-100.0) fL MCH (25.0-35.0) pg Plt Count (150-450) k/uL Neutrophils # (1.3-7.7) k/uL Lymphocytes # (1.0-4.8) k/uL Sodium (137-145) mmol/L Carbon Dioxide (22-30) mmol/L BUN (9-20) mg/dL Creatinine (0.66-1.25) mg/dL Glucose (74-99) mg/dL POC Glucose (mg/dL) 147 H 211 H 284 H (70-110) mg/dL Calcium (8.4-10.2) mg/dL Total Bilirubin (0.2-1.3) mg/dL AST (17-59) U/L ALT (4-49) U/L Alkaline Phosphatase (38-126) U/L Creatine Kinase (55-170) U/L Total Protein (6.3-8.2) g/dL Albumin (3.5-5.0) g/dL 10/09/24 10/09/24 10/09/24 Range/Units 04:49 04:49 08:27 WBC 12.3 H (3.8-10.6) k/uL RBC 2.54 L (4.30-5.90) m/uL Hgb 9.7 L (13.0-17.5) gm/dL Hct 27.7 L (39.0-53.0) % MCV 109.0 H (80.0-100.0) fL MCH 38.1 H (25.0-35.0) pg Plt Count 48 L (150-450) k/uL Neutrophils # 11.3 H (1.3-7.7) k/uL Lymphocytes # 0.4 L (1.0-4.8) k/uL Sodium 133 L (137-145) mmol/L Carbon Dioxide 19 L (22-30) mmol/L BUN 42 H (9-20) mg/dL Creatinine 1.62 H (0.66-1.25) mg/dL Glucose 267 H (74-99) mg/dL POC Glucose (mg/dL) 264 H (70-110) mg/dL Calcium 6.4 L* (8.4-10.2) mg/dL Total Bilirubin 2.0 H (0.2-1.3) mg/dL AST 323 H (17-59) U/L ALT 78 H (4-49) U/L Alkaline Phosphatase 166 H (38-126) U/L Creatine Kinase 3888 H* (55-170) U/L Total Protein 4.6 L (6.3-8.2) g/dL Albumin 2.2 L (3.5-5.0) g/dL Microbiology - Last 24 Hours (Table) 10/06/24 15:48 Blood Culture Gram Stain - Final Blood Blood Culture - Final Strep A Molecular ID 10/07/24 16:26 Blood Culture - Preliminary Blood 10/06/24 15:53 Urine Culture - Final Urine,Catheterized Assessment and Plan Assessment: 1. Left diabetic foot wounds, dry gangrene 2. Diabetes mellitus 3. Altered mental status changes 4. Rhabdomyolysis 5. Bacteremia with sepsis 6. Alcohol abuse 7. Tobacco abuse Plan: 1. Arterial ultrasound of lower extremities ordered and reviewed with no evidence of peripheral arterial disease 2. No plans on any vascular surgical intervention at this time. Toe wounds likely not source of infection. Thank you for this consultation, we will sign off at this time. Please do not hesitate to call us back if further needed. The impression and plan of care has been dictated as directed. Dr. Blake I performed a history and examination of this patient, discussed the same with the dictator. I agree with the dictator's note ,documented as a scribe. Any additional findings or plans will be noted.
[2024-10-09 11:42] LABS: Glucose,Whole Blood 213 mg/dL (70-110)
--- NOTE | 2024-10-09 11:44 | P.PN ---
Subjective Progress Note Date: 10/09/24 Patient is a 64-year-old male who is being seen in the ICU due to hypovolemic shock and rhabdomyolysis. He is a poor historian due to altered mental status and unresponsiveness. All history is obtained from the chart. He initially presented to the emergency department after being found facedown on the ground with a contusion to his forehead and abrasions to his knee and left toes. She stated that he had been having nausea and vomiting for a day prior to being found down. He was noted to have diarrhea as well. Patient is a daily drinker and consumes about a fifth per day according to the notes he has not drank for the 2 days prior to this admission. He also has a history of type 1 diabetes m socrates. Initial EKG showed sinus tachycardia. Head/cervical spine CT showed no acute intracranial process and no acute fracture or traumatic subluxation of the cervical spine. Initial chest x-ray showed right middle lobe scarring/atelectasis, no acute pulmonary process. He had received 4 L of normal saline. Initial labs showed CK level of 18,113, WBCs 10.7, hemoglobin 12.5, sodium 126, creatinine 3.18 lactic acid 6.9, AST 401, ALT 65. Preliminary blood culture showed gram-positive cocci and patient was started on vancomycin. 10/07/2024. He is maintained on a bicarb drip as well as normal saline. He remains unresponsive to verbal stimulation. He is maintained on CIWA protocol. Labs today: WBCs 5.1, hemoglobin 11.6, sodium 126, potassium 3.8, BUN 53, creatinine 3.12, ammonia <9. 10/08/2024. 64-year-old male seen in room 252. I was notified by the nurse at nighttime, that the patient's blood pressure continued to drop. We bumped up his dose of norepinephrine, and gave him a liter of fluid. In addition, his respiratory status was marginal, and the blood gas was ordered. The patient is currently on 6 L of oxygen. The patient was admitted on October 06. He is getting saline at 150 cc an hour, and Precedex at 0.4 mcg/kg/h. His norepinephrine is running at 31 mcg/min. There is staphylococci in his blood. I have asked the nurses to add Ativan Dilaudid and Haldol to his regimen, to try to wean him off the dexmedetomidine. White count of 9.1, hemoglobin hematocrit 29, platelet count 88,000. Sodium 131, potassium 3, chloride 92, CO2 32, BUN 50, creatinine 2.34. Glucose is 167. Calcium is 6.3. CK was 8796. AST is 507. ALT is 136. Albumin is 2.2. Blood cultures from the were positive for Streptococcus group A. Chest x-ray shows bilateral effusions, small, with low lung volumes. 10/09/2024. Patient seen as a followup. No acute events overnight. He is currently on 6 L of oxygen. He was on dextrose 5% - 0.9% NaCl, blood sugars have been in the mid to high 200s. He is receiving Kefzol for streptococcal group A bacteremia. Precedex has been turned off. Levophed is 0.3 mcg/kg/min. WBCs 12.3, hemoglobin 9.7, hematocrit 27.7, platelets 48. Sodium 133, potassium 3.7, chloride 105, CO2 19, BUN 42, creatinine 1.62. Glucose 267. Calcium 6.4. CK 3888. AST 323, ALT 78. Albumin 2.2. Today's chest x-ray showed cardiomegaly, pulmonary vascular congestion, and bilateral pleural effusions. Objective - Vital Signs Vital signs: Vital Signs Temp 98.9 F 10/09/24 04:00 Pulse 86 10/09/24 07:00 Resp 27 H 10/09/24 07:00 BP 123/62 10/09/24 07:00 Pulse Ox 94 L 10/09/24 07:00 FiO2 Intake & Output 10/08/24 10/09/24 10/09/24 18:59 06:59 18:59 Intake Total 3299.630 2851.558 606.293 Output Total 655 860 125 Balance 2644.630 1991.558 481.293 Weight 84.9 kg 84.9 kg Intake: IV 700 220 20 0.9 kvo 220 20 Calcium Gluconate in NaCl 100 2 gm In Saline 1 100ml. bag @ 100 mls/hr IVPB ONCE ONE Rx#:[id number] Dextrose 5% in Water 1, 200 000 ml @ 200 mls/hr IV . Q5H45M PITO with Sodium Bicarb (1 Meq/ml) 150 ml Rx#:[id number] Potassium Chloride 10 meq 400 In Water For Injection 1 100ml.bag @ 100 mls/hr IVPB Q1H [facility] Rx#: [id number] Intake, IV Titration 2539.630 2611.558 586.293 Amount Calcium Gluconate in NaCl 100 2 gm In Saline 1 100ml. bag @ 100 mls/hr IVPB ONCE ONE Rx#:[id number] Dexmedetomidine/0.9% NaCl 38.082 (Pmx) 400 mcg In Empty Bag 1 bag @ 0.2 MCG/KG/HR 3.515 mls/hr IV .Q24H [facility] Rx#:[id number] Norepinephrine 8 mg In 551.548 611.558 233.451 Sodium Chloride 0.9% 250 ml @ 0.14 MCG/KG/MIN 20. 236 mls/hr IV .[id number] [facility] Rx#:[id number] Potassium Chloride 10 meq 100 100 In Water For Injection 1 100ml.bag @ 100 mls/hr IVPB Q1H [facility] Rx#: [id number] Potassium Chloride 20 meq 100 In Water For Injection 1 100ml.bag @ 50 mls/hr IVPB ONCE STA Rx#: [id number] Potassium Chloride 20 meq 100 100 In Water For Injection 1 100ml.bag @ 50 mls/hr IVPB Q2H [facility] Rx#: [id number] Sodium Chloride 0.9% 1, 1650 1650 150 000 ml @ 150 mls/hr IV . Q6H40M [facility] Rx#:[id number] Vasopressin 60 unit In 102.842 Sodium Chloride 0.9% 150 ml @ 0.03 UNITS/MIN 4.59 mls/hr IV .Q24H [facility] Rx#: [id number] ceFAZolin 2 gm In Sodium 50 Chloride 0.9% 50 ml @ 100 mls/hr IVPB Q12HR PIT[facility] Rx #:[id number] ceFAZolin 2 gm In Sodium 100 Chloride 0.9% 50 ml @ 100 mls/hr IVPB Q8HR [facility] Rx# :[id number] TPN/PPN 60 20 0.9 kvo 60 20 Output: Urine 655 860 125 Other: Voiding Method Indwelling Catheter Indwelling Catheter ABP, PAP, CO, CI - Last Documented Arterial Blood Pressure 127/49 - Exam Vital signs are stable. General: Confused, lethargic. HEENT: Mild contusion on his forehead. EOMI bilaterally. ACs patent. Nares patent. Lungs: Bilateral breath sounds present; no rhonchi, wheezes, or rales. Heart: Rate and rhythm are regular. S1-S2 present. No murmur/rub/gallops. Abdomen: Soft, nontender, nondistended. Bowel sounds present. Extremities: 1+ edema present. Neuro: Unable to assess due to mental status. - Labs CBC & Chem 7: 10/09/24 04:49 10/09/24 04:49 Labs: Abnormal Lab Results - Last 24 Hours (Table) 10/08/24 10/08/24 10/08/24 Range/Units 11:52 11:55 12:14 WBC (3.8-10.6) k/uL RBC (4.30-5.90) m/uL Hgb (13.0-17.5) gm/dL Hct (39.0-53.0) % MCV (80.0-100.0) fL MCH (25.0-35.0) pg Plt Count (150-450) k/uL Neutrophils # (1.3-7.7) k/uL Lymphocytes # (1.0-4.8) k/uL Sodium (137-145) mmol/L Carbon Dioxide (22-30) mmol/L BUN (9-20) mg/dL Creatinine (0.66-1.25) mg/dL Glucose (74-99) mg/dL POC Glucose (mg/dL) 36 L* 35 L* 131 H (70-110) mg/dL Calcium (8.4-10.2) mg/dL Ionized Calcium Joshua (4.5-5.3) mg/dL Total Bilirubin (0.2-1.3) mg/dL AST (17-59) U/L ALT (4-49) U/L Alkaline Phosphatase (38-126) U/L Creatine Kinase (55-170) U/L Total Protein (6.3-8.2) g/dL Albumin (3.5-5.0) g/dL Cortisol (3.1-22.4) UG/DL 10/08/24 10/08/24 10/09/24 Range/Units 19:48 23:54 04:16 WBC (3.8-10.6) k/uL RBC (4.30-5.90) m/uL Hgb (13.0-17.5) gm/dL Hct (39.0-53.0) % MCV (80.0-100.0) fL MCH (25.0-35.0) pg Plt Count (150-450) k/uL Neutrophils # (1.3-7.7) k/uL Lymphocytes # (1.0-4.8) k/uL Sodium (137-145) mmol/L Carbon Dioxide (22-30) mmol/L BUN (9-20) mg/dL Creatinine (0.66-1.25) mg/dL Glucose (74-99) mg/dL POC Glucose (mg/dL) 147 H 211 H 284 H (70-110) mg/dL Calcium (8.4-10.2) mg/dL Ionized Calcium Joshua (4.5-5.3) mg/dL Total Bilirubin (0.2-1.3) mg/dL AST (17-59) U/L ALT (4-49) U/L Alkaline Phosphatase (38-126) U/L Creatine Kinase (55-170) U/L Total Protein (6.3-8.2) g/dL Albumin (3.5-5.0) g/dL Cortisol (3.1-22.4) UG/DL 10/09/24 10/09/24 10/09/24 Range/Units 04:49 04:49 08:27 WBC 12.3 H (3.8-10.6) k/uL RBC 2.54 L (4.30-5.90) m/uL Hgb 9.7 L (13.0-17.5) gm/dL Hct 27.7 L (39.0-53.0) % MCV 109.0 H (80.0-100.0) fL MCH 38.1 H (25.0-35.0) pg Plt Count 48 L (150-450) k/uL Neutrophils # 11.3 H (1.3-7.7) k/uL Lymphocytes # 0.4 L (1.0-4.8) k/uL Sodium 133 L (137-145) mmol/L Carbon Dioxide 19 L (22-30) mmol/L BUN 42 H (9-20) mg/dL Creatinine 1.62 H (0.66-1.25) mg/dL Glucose 267 H (74-99) mg/dL POC Glucose (mg/dL) 264 H (70-110) mg/dL Calcium 6.4 L* (8.4-10.2) mg/dL Ionized Calcium Joshua (4.5-5.3) mg/dL Total Bilirubin 2.0 H (0.2-1.3) mg/dL AST 323 H (17-59) U/L ALT 78 H (4-49) U/L Alkaline Phosphatase 166 H (38-126) U/L Creatine Kinase 3888 H* (55-170) U/L Total Protein 4.6 L (6.3-8.2) g/dL Albumin 2.2 L (3.5-5.0) g/dL Cortisol 32.0 H (3.1-22.4) UG/DL 10/09/24 Range/Units 09:32 WBC (3.8-10.6) k/uL RBC (4.30-5.90) m/uL Hgb (13.0-17.5) gm/dL Hct (39.0-53.0) % MCV (80.0-100.0) fL MCH (25.0-35.0) pg Plt Count (150-450) k/uL Neutrophils # (1.3-7.7) k/uL Lymphocytes # (1.0-4.8) k/uL Sodium (137-145) mmol/L Carbon Dioxide (22-30) mmol/L BUN (9-20) mg/dL Creatinine (0.66-1.25) mg/dL Glucose (74-99) mg/dL POC Glucose (mg/dL) (70-110) mg/dL Calcium (8.4-10.2) mg/dL Ionized Calcium Joshua 3.9 L (4.5-5.3) mg/dL Total Bilirubin (0.2-1.3) mg/dL AST (17-59) U/L ALT (4-49) U/L Alkaline Phosphatase (38-126) U/L Creatine Kinase (55-170) U/L Total Protein (6.3-8.2) g/dL Albumin (3.5-5.0) g/dL Cortisol (3.1-22.4) UG/DL Microbiology - Last 24 Hours (Table) 10/06/24 15:48 Blood Culture Gram Stain - Final Blood Blood Culture - Final Strep A Molecular ID 10/07/24 16:26 Blood Culture - Preliminary Blood 10/06/24 15:53 Urine Culture - Final Urine,Catheterized Assessment and Plan Assessment: Chronic alcohol abuse with acute alcohol withdrawal syndrome. Rhabdomyolysis secondary to immobility due to fall. Acute kidney injury secondary to ATN due to to septic shock and rhabdomyolysi s. Streptococcus group A bacteremia. Vancomycin discontinued due to renal function. Currently on cefazolin. Lactic acidosis. Resolved. Hyponatremia, likely hypovolemic. Hypoalbuminemia Acute kidney injury with acute tubular necrosis, secondary to sepsis and rhabdomyolysis. Improving. Type 1 diabetes mellitus. History of coronary artery disease with previous catheterization and stent placement. History of GERD. Hyperlipidemia. Hypertension. History of myocardial infarction. History of osteoarthritis. Plan: Obtain TSH with reflex. Obtain random cortisol. Obtain ionized calcium. Start calcium gluconate. Place NG tube, begin tube feeds. Monitor blood sugars. Continue CIWA protocol. Monitor hemodynamics. Replace magnesium. Replace potassium. Labs, x-rays, and medications were reviewed.
--- NOTE | 2024-10-09 12:02 | XR ---
EXAMINATION TYPE: XR chest 1V portable DATE OF EXAM: 10/09/2024 11:20 AM COMPARISON: Chest radiographs from 10/09/2024 CLINICAL INDICATION: Male, 64 years old with history of post ng insertion, confirm placement; TECHNIQUE: XR chest 1V portable Frontal view of the chest. FINDINGS: Lungs/Pleura: There is no evidence of pleural effusion, focal consolidation, or pneumothorax. Pulmonary vascularity: Unremarkable. Heart/mediastinum: Cardiomediastinal silhouette is unremarkable. Musculoskeletal: No acute osseous pathology. Other findings: None Lines/Tubes: Nasogastric tube with its distal tip and side-port projecting under the diaphragm. IMPRESSION: 1. Nasogastric tube in appropriate position. 2. No acute cardiopulmonary disease/process. [facility], , 10/09/2024 11:59 AM
[2024-10-09] MEDS: POTASSIUM CHLORIDE 20 MEQ in WATER FOR INJECTION 1 100ML.BAG IVPB SCH (14:26)
[2024-10-09 16:21] LABS: Glucose,Whole Blood 119 mg/dL (70-110)
[2024-10-09 16:21] LABS: Glucose,Whole Blood 140 mg/dL (70-110)
[2024-10-09 16:42] LABS: Glucose,Whole Blood 128 mg/dL (70-110)
--- NOTE | 2024-10-09 17:53 | CA ---
Transthoracic Echo Report Name: [place] Age: 64 Gender: M : 1960 Exam Date: 10/08/2024 14:02 Exam Location: [facility] Ht (in): 71 Wt (lb): 173 Ordering Physician: Pierre Rubio MD Attending/Referring Phys: [employer] Guillermina Lambert RDCS Procedure CPT: Indications: chf Cardiac Hx: CAD, DM, HTN , CHOLESTEROL Technical Quality: Good Contrast 1: Total Dose (mL): Contrast 2: Total Dose (mL): MEASUREMENTS (Male / Female) Normal Values 2D ECHO LV Diastolic Diameter PLAX 4.0 cm 4.2 - 5.9 / 3.9 - 5.3 cm LV Systolic Diameter PLAX 2.8 cm IVS Diastolic Thickness 1.4 cm 0.6 - 1.0 / 0.6 - 0.9 cm LVPW Diastolic Thickness 1.4 cm 0.6 - 1.0 / 0.6 - 0.9 cm LV Relative Wall Thickness 0.7 RV Internal Dim ED PLAX 3.4 cm LA Systolic Diameter LX 3.3 cm 3.0 - 4.0 / 2.7 - 3.8 cm LV Diastolic Volume MOD 4C 124.1 cm??? LV Systolic Volume MOD 4C 64.3 cm??? LV Ejection Fraction MOD 4C 48.2 % LV Cardiac Index MOD 4C 2167.9 cm???/min???m??? LV Diastolic Length 4C 9.9 cm LV Systolic Length 4C 8.3 cm LV Diastolic Volume MOD 2C 178.8 cm??? LV Systolic Volume MOD 2C 96.8 cm??? LV Ejection Fraction MOD 2C 45.9 % LV Cardiac Index MOD 2C 2971.4 cm???/min???m??? LV Diastolic Length 2C 9.6 cm LV Systolic Length 2C 8.1 cm M-MODE Aortic Root Diameter MM 3.4 cm LA Systolic Diameter MM 2.3 cm LA Ao Ratio MM 0.7 DOPPLER AV Peak Velocity 152.5 cm/s AV Peak Gradient 9.3 mmHg Mitral E Point Velocity 94.1 cm/s Mitral A Point Velocity 63.5 cm/s Mitral E to A Ratio 1.5 MV Deceleration Time 249.4 ms MV E' Velocity 7.7 cm/s Mitral E to MV E' Ratio 12.3 TR Peak Velocity 238.8 cm/s TR Peak Gradient 22.8 mmHg Right Ventricular Systolic Press 37.8 mmHg FINDINGS Left Ventricle Left ventricular ejection fraction is estimated at 45-50 %. Left ventricular cavity size normal. Moderate concentric left ventricular hypertrophy. Right Ventricle Mild right ventricular dilatation. Mild pulmonary hypertension. Right Atrium Normal right atrial size. No right atrial thrombus or mass seen. Left Atrium Normal left atrial size. No left atrial thrombus or mass present. Mitral Valve Structurally normal mitral valve. Mild mitral regurgitation. Aortic Valve Trileaflet aortic valve. Thickened aortic valve without stenosis. Tricuspid Valve Structurally normal tricuspid valve. Mild tricuspid regurgitation. Pulmonic Valve Structurally normal pulmonic valve. Mild pulmonic regurgitation. Pericardium No pericardial or pleural effusion. Aorta Normal size aortic root and proximal ascending aorta. CONCLUSIONS Left ventricular ejection fraction is estimated at 45-50 %. Moderate concentric left ventricular hypertrophy. No obvious regional wall motion abnormality Mild RV dilatation, RVSP 38 mmHg Mild mitral regurgitation, mild tricuspid regurgitation Previewed by: Dr Braulio Doyle (Electronically Signed) Final Date: 09 October 2024 17:52
[2024-10-09 20:22] LABS: Glucose,Whole Blood 143 mg/dL (70-110)
[2024-10-09] MEDS: POTASSIUM BICARBONATE/CIT AC 20 MEQ TABLET.EFF NG-TUBE SCH (22:42)
[2024-10-09 23:36] LABS: Glucose,Whole Blood 170 mg/dL (70-110)
[2024-10-10 04:05] LABS: Glucose,Whole Blood 164 mg/dL (70-110)
--- NOTE | 2024-10-10 04:28 | PN ---
PROGRESS NOTE DATE OF SERVICE: 10/09/2024 SUBJECTIVE: This is a 64-year-old gentleman admitted with sepsis, severe hypotension, is being closely monitored in ICU. The patient had alcohol problems. The patient also had withdrawals and DTs also. The patient had rhabdomyolysis and renal failure also. The patient is being closely monitored and the patient also had left foot cellulitis and as well as right knee arthritis as well. Chest x-ray was reviewed. PAST MEDICAL HISTORY: Reviewed. REVIEW OF SYSTEMS: Could not be taken. The patient is confused still. CURRENT MEDICATIONS: Reviewed. PHYSICAL EXAMINATION: VITAL SIGNS: Pulse is 81, blood pressure 124/50, respirations 16. CHEST: Scattered rhonchi. ABDOMEN: Soft, obese. LEGS: Minimal bilateral leg edema. Left foot cellulitis as well as right knee arthritis also present. LABORATORY DATA: WBC 12.3, platelets are 48. Other labs are noted. Calcium is low. ASSESSMENT: 1. Strep group A, pyogenes with severe sepsis, septic shock, and hypotension. 2. Change in mental status and acute metabolic encephalopathy multifactorial. 3. Acute rhabdomyolysis, acute renal failure, tubular necrosis secondary to rhabdomyolysis. 4. Acute delirium tremens. 5. History of EtOH. 6. Right knee joint arthritis and effusion. 7. Second digit proximal phalanx possibly small avulsion fracture. 8. Left foot cellulitis. 9. Coronary artery disease. 10.Diabetes mellitus, type 2. 11.Hypertension. 12.Hyperlipidemia. 13.Multiple complex medical issues including the history of coronary artery disease and stent. RECOMMENDATIONS AND DISCUSSION: Recommend to continue current management and continue symptomatic treatment. Otherwise, I would also recommend ultrasound of the liver and gallbladder. A small avulsion fracture of the foot was noted. Continue the antibiotics. Repeat labs. Monitor CK. Guarded prognosis. Further recommendations to follow. I discussed with the family at length. Echo has been ordered. MMODL / IJN: [id number] /
[2024-10-10 05:02] LABS: Basophils % (A) 0 %; Eosinophils # (A) 0.1 k/uL (0-0.7); Eosinophils % (A) 1 %; HCT 29.6 % (39.0-53.0); HGB 9.8 gm/dL (13.0-17.5); Lymphocytes # (A) 0.6 k/uL (1.0-4.8); Lymphocytes % (A) 4 %; MCH 36.6 pg (25.0-35.0); MCHC 33.2 g/dL (31.0-37.0); MCV 110.2 fL (80.0-100.0); Macrocytosis Marked; Mean Platelet Volume 11.3; Monocytes # (A) 0.5 k/uL (0-1.0); Monocytes % (A) 3 %; Neutrophils # (A) 14.9 k/uL (1.3-7.7); Neutrophils % (A) 91 %; Platelet Count 38 k/uL (150-450); RBC 2.69 m/uL (4.30-5.90); RDW 13.3 % (11.5-15.5); WBC 16.4 k/uL (3.8-10.6)
[2024-10-10 05:04] LABS: Ionized Calcium 4.1 mg/dL (4.5-5.3)
[2024-10-10 05:13] LABS: ALT 36 U/L (4-49); AST 154 U/L (17-59); African American GFR (CKD) 70 (>60 ml/min/1.73 sqM); Albumin 2.2 g/dL (3.5-5.0); Alkaline Phosphatase 271 U/L (38-126); Anion Gap 3 mmol/L; Blood Urea Nitrogen 35 mg/dL (9-20); Calcium 6.6 mg/dL (8.4-10.2); Carbon Dioxide 23 mmol/L (22-30); Chloride 112 mmol/L (98-107); Creatine Kinase 983 U/L (55-170); Glucose 164 mg/dL (74-99); Non-African American GFR(CKD) 61 (>60 ml/min/1.73 sqM); Potassium 3.5 mmol/L (3.5-5.1); Sodium 138 mmol/L (137-145); Total Bilirubin 3.3 mg/dL (0.2-1.3); Total Protein 4.7 g/dL (6.3-8.2)
[2024-10-10] MEDS: POTASSIUM CHLORIDE 20 MEQ in WATER FOR INJECTION 1 100ML.BAG IVPB SCH (05:26)
[2024-10-10] MEDS: DEXTROSE 5% IN WATER 100 ML with AMIODARONE 150 MG IV ONE (05:33)
[2024-10-10] MEDS: AMIODARONE 360 MG in DEXTROSE 5% IN WATER 200 ML IV ONE (05:53)
[2024-10-10 08:19] LABS: Glucose,Whole Blood 168 mg/dL (70-110)
--- NOTE | 2024-10-10 08:23 | XR ---
EXAMINATION TYPE: XR chest 1V portable DATE OF EXAM: 10/10/2024 5:41 AM COMPARISON: Chest radiographs from 10/09/2024. CLINICAL INDICATION: Male, 64 years old with history of shortness of breath; TECHNIQUE: XR chest 1V portable Frontal view of the chest. FINDINGS: Lungs/Pleura: Left basilar airspace opacities. No evidence of focal consolidation or pneumothorax. Bl unting of the costophrenic angles is present. Pulmonary vascularity: Unremarkable. Heart/mediastinum: Cardiomediastinal silhouette is unremarkable. Musculoskeletal: No acute osseous pathology. There is fixation hardware in the lower cervical spine. Other findings: None IMPRESSION: 1. Basilar atelectasis and/or airspace disease. 2. Small bilateral pleural effusions. [facility], , 10/10/2024 8:20 AM
--- NOTE | 2024-10-10 08:37 | US ---
EXAMINATION TYPE: US liver DATE OF EXAM: 10/10/2024 COMPARISON: Ultrasound 10/07/2024 CLINICAL INDICATION: Male, 64 years old with history of cirrhosis? please include gall bladder also; ICU Patient, not conscious, continual movements and has sitter, h/o alcohol abuse TECHNIQUE: Grayscale and color Doppler imaging of the right upper quadrant was performed. 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 [facility], , 10/10/2024 8:35 AM
--- NOTE | 2024-10-10 08:55 | P.PN ---
Subjective Progress Note Date: 10/09/24 Principal diagnosis: Reason for follow-up is Streptococcus agalactiae bacteremia Patient is a 64-year-old male past medical his significant for diabetes mellitus hypertension hyperlipidemia RI osteoarthritis coronary disease patient was brought into the hospital after apparently the patient was found to be facedown on the ground with contusion to his forehead and abrasion to his knee and some bloody toes, patient did have a fever subsequently blood cultures came back positive with Streptococcus agalactiae prompting this consultation. On today's evaluation that is 10/09/2024, patient has been afebrile, patient is breathing comfortably and is currently on 6 L nasal cannula oxygen patient is currently lethargic apparently has received a dose of Dilaudid however talking to the [id number] who is the RN mention mentation was kind of back to baseline before receiving the Dilaudid no vomiting or diarrhea has been reported. Patient white count is slightly up to 12.3 creatinine is 1.62 blood culture repeat so far negative patient did have echocardiogram did not mention any vegetation Objective - Vital Signs Vital signs: Vital Signs Temp 97.5 F L 10/09/24 12:00 Pulse 74 10/09/24 15:00 Resp 16 10/09/24 15:00 BP 93/57 10/09/24 10:15 Pulse Ox 95 10/09/24 15:00 FiO2 Intake & Output 10/08/24 10/09/24 10/09/24 18:59 06:59 18:59 Intake Total 3299.630 2851.558 2761.024 Output Total 655 860 735 Balance 2644.630 7851.853 4375.024 Weight 84.9 kg 84.9 kg Intake: IV 700 220 204 0.9 kvo 220 204 Calcium Gluconate in NaCl 100 2 gm In Saline 1 100ml. bag @ 100 mls/hr IVPB ONCE ONE Rx#:[id number] Dextrose 5% in Water 1, 200 000 ml @ 200 mls/hr IV . Q5H45M PITO with Sodium Bicarb (1 Meq/ml) 150 ml Rx#:[id number] Potassium Chloride 10 meq 400 In Water For Injection 1 100ml.bag @ 100 mls/hr IVPB Q1H [facility] Rx#: [id number] Intake, IV Titration 2539.630 2611.558 2557.024 Amount Calcium Gluconate in NaCl 100 2 gm In Saline 1 100ml. bag @ 100 mls/hr IVPB ONCE ONE Rx#:[id number] Calcium Gluconate in NaCl 100 2 gm In Saline 1 100ml. bag @ 100 mls/hr IVPB ONCE ONE Rx#:[id number] Dexmedetomidine/0.9% NaCl 38.082 (Pmx) 400 mcg In Empty Bag 1 bag @ 0.2 MCG/KG/HR 3.515 mls/hr IV .Q24H PITO Rx#:[id number] Magnesium Sulfate-D5w Pmx 200 1 gm In Dextrose/Water 1 100ml.bag @ 100 mls/hr IVPB Q1H P[facility] Rx#: [id number] Norepinephrine 8 mg In 551.548 611.558 404.182 Sodium Chloride 0.9% 250 ml @ 0.14 MCG/KG/MIN 20. 236 mls/hr IV .S41W17H PITO Rx#:[id number] Potassium Chloride 10 meq 100 100 In Water For Injection 1 100ml.bag @ 100 mls/hr IVPB Q1H P[facility] Rx#: [id number] Potassium Chloride 10 meq 200 In Water For Injection 1 100ml.bag @ 100 mls/hr IVPB Q1H P[facility] Rx#: [id number] Potassium Chloride 20 meq 100 In Water For Injection 1 100ml.bag @ 50 mls/hr IVPB ONCE STA Rx#: [id number] Potassium Chloride 20 meq 100 100 In Water For Injection 1 100ml.bag @ 50 mls/hr IVPB Q2H [facility] Rx#: [id number] Potassium Chloride 20 meq 100 In Water For Injection 1 100ml.bag @ 50 mls/hr IVPB Q2H [facility] Rx#: [id number] Sodium Chloride 0.9% 1, 1650 1650 150 000 ml @ 150 mls/hr IV . Q6H40M PITO Rx#:[id number] Sodium Chloride 0.9% 1, 1200 000 ml @ 150 mls/hr IV . Q6H40M PITO Rx#:[id number] Vasopressin 60 unit In 102.842 Sodium Chloride 0.9% 150 ml @ 0.03 UNITS/MIN 4.59 mls/hr IV .Q24H PITO Rx#: [id number] ceFAZolin 2 gm In Sodium 50 Chloride 0.9% 50 ml @ 100 mls/hr IVPB Q12HR [facility] Rx #:[id number] ceFAZolin 2 gm In Sodium 100 Chloride 0.9% 50 ml @ 100 mls/hr IVPB Q8HR [facility] Rx# :[id number] TPN/PPN 60 20 0.9 kvo 60 20 Output: Urine 655 860 735 Other: Voiding Method Indwelling Catheter Indwelling Catheter Indwelling Catheter ABP, PAP, CO, CI - Last Documented Arterial Blood Pressure 114/44 - Exam GENERAL DESCRIPTION: Middle-age male lying in bed in no distress RESPIRATORY SYSTEM: Unlabored breathing , decreased breath sounds at bases HEART: S1 S2 regular rate and rhythm , ABDOMEN: Soft , no tenderness EXTREMITIES: No edema feet - Labs CBC & Chem 7: 10/10/24 04:37 10/10/24 04:37 Labs: Abnormal Lab Results - Last 24 Hours (Table) 10/08/24 10/08/24 10/09/24 Range/Units 19:48 23:54 04:16 WBC (3.8-10.6) k/uL RBC (4.30-5.90) m/uL Hgb (13.0-17.5) gm/dL Hct (39.0-53.0) % MCV (80.0-100.0) fL MCH (25.0-35.0) pg Plt Count (150-450) k/uL Neutrophils # (1.3-7.7) k/uL Lymphocytes # (1.0-4.8) k/uL Sodium (137-145) mmol/L Potassium (3.5-5.1) mmol/L Carbon Dioxide (22-30) mmol/L BUN (9-20) mg/dL Creatinine (0.66-1.25) mg/dL Glucose (74-99) mg/dL POC Glucose (mg/dL) 147 H 211 H 284 H (70-110) mg/dL Calcium (8.4-10.2) mg/dL Ionized Calcium Joshua (4.5-5.3) mg/dL Total Bilirubin (0.2-1.3) mg/dL AST (17-59) U/L ALT (4-49) U/L Alkaline Phosphatase (38-126) U/L Creatine Kinase (55-170) U/L Total Protein (6.3-8.2) g/dL Albumin (3.5-5.0) g/dL Cortisol (3.1-22.4) UG/DL 10/09/24 10/09/24 10/09/24 Range/Units 04:49 04:49 08:27 WBC 12.3 H (3.8-10.6) k/uL RBC 2.54 L (4.30-5.90) m/uL Hgb 9.7 L (13.0-17.5) gm/dL Hct 27.7 L (39.0-53.0) % MCV 109.0 H (80.0-100.0) fL MCH 38.1 H (25.0-35.0) pg Plt Count 48 L (150-450) k/uL Neutrophils # 11.3 H (1.3-7.7) k/uL Lymphocytes # 0.4 L (1.0-4.8) k/uL Sodium 133 L (137-145) mmol/L Potassium (3.5-5.1) mmol/L Carbon Dioxide 19 L (22-30) mmol/L BUN 42 H (9-20) mg/dL Creatinine 1.62 H (0.66-1.25) mg/dL Glucose 267 H (74-99) mg/dL POC Glucose (mg/dL) 264 H (70-110) mg/dL Calcium 6.4 L* (8.4-10.2) mg/dL Ionized Calcium Joshua (4.5-5.3) mg/dL Total Bilirubin 2.0 H (0.2-1.3) mg/dL AST 323 H (17-59) U/L ALT 78 H (4-49) U/L Alkaline Phosphatase 166 H (38-126) U/L Creatine Kinase 3888 H* (55-170) U/L Total Protein 4.6 L (6.3-8.2) g/dL Albumin 2.2 L (3.5-5.0) g/dL Cortisol 32.0 H (3.1-22.4) UG/DL 10/09/24 10/09/24 10/09/24 Range/Units 09:32 11:39 12:30 WBC (3.8-10.6) k/uL RBC (4.30-5.90) m/uL Hgb (13.0-17.5) gm/dL Hct (39.0-53.0) % MCV (80.0-100.0) fL MCH (25.0-35.0) pg Plt Count (150-450) k/uL Neutrophils # (1.3-7.7) k/uL Lymphocytes # (1.0-4.8) k/uL Sodium (137-145) mmol/L Potassium 3.3 L (3.5-5.1) mmol/L Carbon Dioxide (22-30) mmol/L BUN (9-20) mg/dL Creatinine (0.66-1.25) mg/dL Glucose (74-99) mg/dL POC Glucose (mg/dL) 213 H (70-110) mg/dL Calcium (8.4-10.2) mg/dL Ionized Calcium Joshua 3.9 L (4.5-5.3) mg/dL Total Bilirubin (0.2-1.3) mg/dL AST (17-59) U/L ALT (4-49) U/L Alkaline Phosphatase (38-126) U/L Creatine Kinase (55-170) U/L Total Protein (6.3-8.2) g/dL Albumin (3.5-5.0) g/dL Cortisol (3.1-22.4) UG/DL Microbiology - Last 24 Hours (Table) 10/08/24 06:16 Blood Culture - Preliminary Blood 10/06/24 15:48 Blood Culture Gram Stain - Final Blood Blood Culture - Final Strep A Molecular ID 10/07/24 16:26 Blood Culture - Preliminary Blood Assessment and Plan (1) Sepsis Current Visit: Yes Status: Acute Code(s): A41.9 - SEPSIS, UNSPECIFIED ORGANISM SNOMED Code(s): 85356490 (2) Streptococcal bacteremia Current Visit: Yes Status: Acute Code(s): R78.81 - BACTEREMIA; B95.5 - UNSP STREPTOCOCCUS THE CAUSE OF DISEASES CLASSD [facility] SNOMED Code(s): 638148147083 Plan: 1patient presented to the hospital with sepsis in this patient who did have fever tachycardia elevated white count and now with evidence of streptococcal bacteremia which is usually of skin and soft tissue origin 2-patient with renal insufficiency and high risk of toxicity from vancomycin however the kidney function is improving 3-patient did get his bacteremia repeat blood culture has been negative, we will continue with the cefazolin echocardiogram did not show any vegetation however if no other source may need to do a JESÚS to rule out endocarditis as currently no obvious focus for this bacteremia Dictation was produced using [employer] dictation software. please excuse any grammatical, word or spelling errors. Time with Patient: Less than 30
--- NOTE | 2024-10-10 10:57 | P.PN ---
Subjective Patient is seen in follow-up for acute kidney injury. Renal function improving. Currently on Levophed and vasopressin. Nonoliguric. On amiodarone drip for A- fib. Vital signs are stable. On vasopressor support. General: No acute distress. HEENT: Head exam is unremarkable. Oxygen mask noted. LUNGS: No audible rhonchi or wheezes. HEART: Rate and Rhythm are regular. ABDOMEN: No distention. EXTREMITITES: No edema. Objective - Vital Signs Vital signs: Vital Signs Temp 97.5 F L 10/10/24 08:00 Pulse 80 10/10/24 09:00 Resp 22 10/10/24 09:00 BP 93/57 10/09/24 10:15 Pulse Ox 91 L 10/10/24 09:00 FiO2 13 10/10/24 09:00 Intake & Output 10/09/24 10/10/24 10/10/24 18:59 06:59 18:59 Intake Total 3511.330 2484.106 712.389 Output Total 900 780 275 Balance 2611.330 1704.106 437.389 Weight 84.9 kg 85.6 kg Intake: IV 273 276 369 0.9 kvo 273 276 69 Sodium Chloride 0.9% 1, 300 000 ml @ 150 mls/hr IV . Q6H40M PITO Rx#:[id number] Intake, IV Titration 3238.330 2068.106 343.389 Amount Calcium Gluconate in NaCl 100 2 gm In Saline 1 100ml. bag @ 100 mls/hr IVPB ONCE ONE Rx#:[id number] Magnesium Sulfate-D5w Pmx 200 1 gm In Dextrose/Water 1 100ml.bag @ 100 mls/hr IVPB Q1H P[facility] Rx#: [id number] Norepinephrine 8 mg In 485.488 268.106 93.389 Sodium Chloride 0.9% 250 ml @ 0.14 MCG/KG/MIN 20. 236 mls/hr IV .[id number] PITO Rx#:[id number] Potassium Chloride 10 meq 100 In Water For Injection 1 100ml.bag @ 100 mls/hr IVPB Q1H [facility] Rx#: [id number] Potassium Chloride 10 meq 200 In Water For Injection 1 100ml.bag @ 100 mls/hr IVPB Q1H [facility] Rx#: [id number] Potassium Chloride 20 meq 200 100 In Water For Injection 1 100ml.bag @ 50 mls/hr IVPB Q2H [facility] Rx#: [id number] Sodium Chloride 0.9% 1, 150 000 ml @ 150 mls/hr IV . Q6H40M [facility] Rx#:[id number] Sodium Chloride 0.9% 1, 1650 1800 150 000 ml @ 150 mls/hr IV . Q6H40M [facility] Rx#:[id number] Vasopressin 60 unit In 102.842 Sodium Chloride 0.9% 150 ml @ 0.03 UNITS/MIN 4.59 mls/hr IV .Q24H [facility] Rx#: [id number] ceFAZolin 2 gm In Sodium 50 Chloride 0.9% 50 ml @ 100 mls/hr IVPB Q8HR [facility] Rx# :[id number] Tube Feeding 110 Other 30 Output: Urine 900 780 275 Other: Voiding Method Indwelling Catheter Indwelling Catheter ABP, PAP, CO, CI - Last Documented Arterial Blood Pressure 117/47 - Labs CBC & Chem 7: 10/10/24 04:37 10/10/24 04:37 Labs: Abnormal Lab Results - Last 24 Hours (Table) 10/09/24 10/09/24 10/09/24 Range/Units 04:49 11:39 12:30 WBC (3.8-10.6) k/uL RBC (4.30-5.90) m/uL Hgb (13.0-17.5) gm/dL Hct (39.0-53.0) % MCV (80.0-100.0) fL MCH (25.0-35.0) pg Plt Count (150-450) k/uL Neutrophils # (1.3-7.7) k/uL Lymphocytes # (1.0-4.8) k/uL Macrocytosis Potassium 3.3 L (3.5-5.1) mmol/L Chloride (98-107) mmol/L BUN (9-20) mg/dL Creatinine (0.66-1.25) mg/dL Glucose (74-99) mg/dL POC Glucose (mg/dL) 213 H (70-110) mg/dL Calcium (8.4-10.2) mg/dL Ionized Calcium Joshua (4.5-5.3) mg/dL Total Bilirubin (0.2-1.3) mg/dL AST (17-59) U/L Alkaline Phosphatase (38-126) U/L Creatine Kinase (55-170) U/L Total Protein (6.3-8.2) g/dL Albumin (3.5-5.0) g/dL Cortisol 32.0 H (3.1-22.4) UG/DL 10/09/24 10/09/24 10/09/24 Range/Units 16:16 16:18 16:22 WBC (3.8-10.6) k/uL RBC (4.30-5.90) m/uL Hgb (13.0-17.5) gm/dL Hct (39.0-53.0) % MCV (80.0-100.0) fL MCH (25.0-35.0) pg Plt Count (150-450) k/uL Neutrophils # (1.3-7.7) k/uL Lymphocytes # (1.0-4.8) k/uL Macrocytosis Potassium (3.5-5.1) mmol/L Chloride (98-107) mmol/L BUN (9-20) mg/dL Creatinine (0.66-1.25) mg/dL Glucose (74-99) mg/dL POC Glucose (mg/dL) 140 H 119 H 128 H (70-110) mg/dL Calcium (8.4-10.2) mg/dL Ionized Calcium Joshua (4.5-5.3) mg/dL Total Bilirubin (0.2-1.3) mg/dL AST (17-59) U/L Alkaline Phosphatase (38-126) U/L Creatine Kinase (55-170) U/L Total Protein (6.3-8.2) g/dL Albumin (3.5-5.0) g/dL Cortisol (3.1-22.4) UG/DL 10/09/24 10/09/24 10/10/24 Range/Units 20:21 23:35 04:03 WBC (3.8-10.6) k/uL RBC (4.30-5.90) m/uL Hgb (13.0-17.5) gm/dL Hct (39.0-53.0) % MCV (80.0-100.0) fL MCH (25.0-35.0) pg Plt Count (150-450) k/uL Neutrophils # (1.3-7.7) k/uL Lymphocytes # (1.0-4.8) k/uL Macrocytosis Potassium (3.5-5.1) mmol/L Chloride (98-107) mmol/L BUN (9-20) mg/dL Creatinine (0.66-1.25) mg/dL Glucose (74-99) mg/dL POC Glucose (mg/dL) 143 H 170 H 164 H (70-110) mg/dL Calcium (8.4-10.2) mg/dL Ionized Calcium Joshua (4.5-5.3) mg/dL Total Bilirubin (0.2-1.3) mg/dL AST (17-59) U/L Alkaline Phosphatase (38-126) U/L Creatine Kinase (55-170) U/L Total Protein (6.3-8.2) g/dL Albumin (3.5-5.0) g/dL Cortisol (3.1-22.4) UG/DL 10/10/24 10/10/24 10/10/24 Range/Units 04:37 04:37 08:18 WBC 16.4 H (3.8-10.6) k/uL RBC 2.69 L (4.30-5.90) m/uL Hgb 9.8 L (13.0-17.5) gm/dL Hct 29.6 L (39.0-53.0) % MCV 110.2 H (80.0-100.0) fL MCH 36.6 H (25.0-35.0) pg Plt Count 38 L (150-450) k/uL Neutrophils # 14.9 H (1.3-7.7) k/uL Lymphocytes # 0.6 L (1.0-4.8) k/uL Macrocytosis Marked A Potassium (3.5-5.1) mmol/L Chloride 112 H (98-107) mmol/L BUN 35 H (9-20) mg/dL Creatinine 1.26 H (0.66-1.25) mg/dL Glucose 164 H (74-99) mg/dL POC Glucose (mg/dL) 168 H (70-110) mg/dL Calcium 6.6 L (8.4-10.2) mg/dL Ionized Calcium Joshua 4.1 L (4.5-5.3) mg/dL Total Bilirubin 3.3 H (0.2-1.3) mg/dL AST 154 H (17-59) U/L Alkaline Phosphatase 271 H (38-126) U/L Creatine Kinase 983 H (55-170) U/L Total Protein 4.7 L (6.3-8.2) g/dL Albumin 2.2 L (3.5-5.0) g/dL Cortisol (3.1-22.4) UG/DL Microbiology - Last 24 Hours (Table) 10/07/24 16:26 Blood Culture - Preliminary Blood 10/08/24 06:16 Blood Culture - Preliminary Blood 10/06/24 15:48 Blood Culture Gram Stain - Final Blood Blood Culture - Final Strep A Molecular ID Assessment and Plan Plan: Assessment: 1. Acute kidney injury secondary to ATN secondary to septic shock and rhabdomyolysis. Creatinine 3.18 on admission and is improved to 1.26. Baseline creatinine near 1. No hydronephrosis noted on kidney ultrasound. 2. Rhabdomyolysis secondary to immobility. CK levels trending down. 3. Strep bacteremia on antibiotics. 4. Anion gap metabolic acidosis secondary to acute kidney injury and lactic acidosis. Status post bicarb drip. 5. Hyponatremia secondary to hypovolemia as well as acute kidney injury. Better. 6. Hypomagnesemia from poor intake and alcohol abuse. Being replaced. 7. History of alcohol abuse. 8. Hypocalcemia secondary to acute kidney injury as well as intracellular shifting from bicarb. Being replaced. 9. Hypokalemia from poor intake. Being replaced. 10. A-fib with RVR maintained on amiodarone drip. Plan: Decrease rate of normal saline to 100 cc an hour. Potassium and calcium being replaced. Repeat labs in the morning. Avoid nephrotoxins. Continue to monitor renal function and urine output. Wean vasopressors.
--- NOTE | 2024-10-10 11:33 | P.PN ---
Subjective Progress Note Date: 10/10/24 Patient is a 64-year-old male who is being seen in the ICU due to hypovolemic shock and rhabdomyolysis. He is a poor historian due to altered mental status and unresponsiveness. All history is obtained from the chart. He initially presented to the emergency department after being found facedown on the ground with a contusion to his forehead and abrasions to his knee and left toes. She stated that he had been having nausea and vomiting for a day prior to being found down. He was noted to have diarrhea as well. Patient is a daily drinker and consumes about a fifth per day according to the notes he has not drank for the 2 days prior to this admission. He also has a history of type 1 diabetes m socrates. Initial EKG showed sinus tachycardia. Head/cervical spine CT showed no acute intracranial process and no acute fracture or traumatic subluxation of the cervical spine. Initial chest x-ray showed right middle lobe scarring/atelectasis, no acute pulmonary process. He had received 4 L of normal saline. Initial labs showed CK level of 18,113, WBCs 10.7, hemoglobin 12.5, sodium 126, creatinine 3.18 lactic acid 6.9, AST 401, ALT 65. Preliminary blood culture showed gram-positive cocci and patient was started on vancomycin. 10/07/2024. He is maintained on a bicarb drip as well as normal saline. He remains unresponsive to verbal stimulation. He is maintained on CIWA protocol. Labs today: WBCs 5.1, hemoglobin 11.6, sodium 126, potassium 3.8, BUN 53, creatinine 3.12, ammonia <9. 10/08/2024. 64-year-old male seen in room 252. I was notified by the nurse at nighttime, that the patient's blood pressure continued to drop. We bumped up his dose of norepinephrine, and gave him a liter of fluid. In addition, his respiratory status was marginal, and the blood gas was ordered. The patient is currently on 6 L of oxygen. The patient was admitted on October 06. He is getting saline at 150 cc an hour, and Precedex at 0.4 mcg/kg/h. His norepinephrine is running at 31 mcg/min. There is staphylococci in his blood. I have asked the nurses to add Ativan Dilaudid and Haldol to his regimen, to try to wean him off the dexmedetomidine. White count of 9.1, hemoglobin hematocrit 29, platelet count 88,000. Sodium 131, potassium 3, chloride 92, CO2 32, BUN 50, creatinine 2.34. Glucose is 167. Calcium is 6.3. CK was 8796. AST is 507. ALT is 136. Albumin is 2.2. Blood cultures from the were positive for Streptococcus group A. Chest x-ray shows bilateral effusions, small, with low lung volumes. 10/09/2024. Patient seen as a followup. No acute events overnight. He is currently on 6 L of oxygen. He was on dextrose 5% - 0.9% NaCl, blood sugars have been in the mid to high 200s. He is receiving Kefzol for streptococcal group A bacteremia. Precedex has been turned off. Levophed is 0.3 mcg/kg/min. WBCs 12.3, hemoglobin 9.7, hematocrit 27.7, platelets 48. Sodium 133, potassium 3.7, chloride 105, CO2 19, BUN 42, creatinine 1.62. Glucose 267. Calcium 6.4. CK 3888. AST 323, ALT 78. Albumin 2.2. Today's chest x-ray showed cardiomegaly, pulmonary vascular congestion, and bilateral pleural effusions. 10/10/2024. Patient is being seen as a followup in the ICU. Overnight he went into A-fib with rapid ventricular rate, was started on an amiodarone drip at 1mg/min, and converted back to normal sinus rhythm. His pressures remain in the 100s/40s and pulses are He is currently on 15 L high flow oxygen. He is on normal saline at 150 cc/h. He is maintained on Kefzol for streptococcal group A bactermia, today is day 3. Levophed is at 0.11 mcg/kg/min, vasopressin at 0.02 mcg/kg/min. WBCs 16.4, hemoglobin 9.8, hematocrit 29.6, platelets 38. Sodium 138, potassium 3.5, chloride 112, CO2 23, BUN 35, creatinine 1.26, glucose 164. Ionized calcium 4.1. CK 988. AST 154, ALT 36. Cortisol 32. TSH 4.3830. In addition, he removed his NG tube overnight. Today's chest x-ray is unchanged from previous. He remains lethargic and barely responsive to verbal stimulation. Objective - Vital Signs Vital signs: Vital Signs Temp 97.5 F L 10/10/24 08:00 Pulse 89 10/10/24 08:00 Resp 16 10/10/24 08:00 BP 93/57 10/09/24 10:15 Pulse Ox 94 L 10/10/24 08:00 FiO2 15 10/10/24 07:00 Intake & Output 10/09/24 10/10/24 10/10/24 18:59 06:59 18:59 Intake Total 3511.330 2484.106 539.389 Output Total 900 780 150 Balance 2611.330 1704.106 389.389 Weight 84.9 kg 85.6 kg Intake: IV 273 276 196 0.9 kvo 273 276 46 Sodium Chloride 0.9% 1, 150 000 ml @ 150 mls/hr IV . Q6H40M [facility] Rx#:[id number] Intake, IV Titration 3238.330 2068.106 343.389 Amount Calcium Gluconate in NaCl 100 2 gm In Saline 1 100ml. bag @ 100 mls/hr IVPB ONCE ONE Rx#:[id number] Magnesium Sulfate-D5w Pmx 200 1 gm In Dextrose/Water 1 100ml.bag @ 100 mls/hr IVPB Q1H [facility] Rx#: [id number] Norepinephrine 8 mg In 485.488 268.106 93.389 Sodium Chloride 0.9% 250 ml @ 0.14 MCG/KG/MIN 20. 236 mls/hr IV .[id number] [facility] Rx#:[id number] Potassium Chloride 10 meq 100 In Water For Injection 1 100ml.bag @ 100 mls/hr IVPB Q1H [facility] Rx#: [id number] Potassium Chloride 10 meq 200 In Water For Injection 1 100ml.bag @ 100 mls/hr IVPB Q1H [facility] Rx#: [id number] Potassium Chloride 20 meq 200 100 In Water For Injection 1 100ml.bag @ 50 mls/hr IVPB Q2H [facility] Rx#: [id number] Sodium Chloride 0.9% 1, 150 000 ml @ 150 mls/hr IV . Q6H40M [facility] Rx#:[id number] Sodium Chloride 0.9% 1, 1650 1800 150 000 ml @ 150 mls/hr IV . Q6H40M [facility] Rx#:[id number] Vasopressin 60 unit In 102.842 Sodium Chloride 0.9% 150 ml @ 0.03 UNITS/MIN 4.59 mls/hr IV .Q24H [facility] Rx#: [id number] ceFAZolin 2 gm In Sodium 50 Chloride 0.9% 50 ml @ 100 mls/hr IVPB Q8HR [facility] Rx# :[id number] Tube Feeding 110 Other 30 Output: Urine 900 780 150 Other: Voiding Method Indwelling Catheter Indwelling Catheter ABP, PAP, CO, CI - Last Documented Arterial Blood Pressure 120/42 - Exam Vital signs are stable. General: Confused, lethargic. Right radial arterial line present. HEENT: Mild contusion on his forehead. EOMI bilaterally. ACs patent. Nares patent. Pinpoint pupils. Lungs: Bilateral breath sounds present; no rhonchi, wheezes, or rales. Heart: Rate and rhythm are regular. S1-S2 present. No murmur/rub/gallops. Abdomen: Soft, nontender, nondistended. Bowel sounds present. Extremities: 1+ edema present. Neuro: Unable to assess due to mental status. - Labs CBC & Chem 7: 10/10/24 04:37 10/10/24 04:37 Labs: Abnormal Lab Results - Last 24 Hours (Table) 10/09/24 10/09/24 10/09/24 Range/Units 04:49 09:32 11:39 WBC (3.8-10.6) k/uL RBC (4.30-5.90) m/uL Hgb (13.0-17.5) gm/dL Hct (39.0-53.0) % MCV (80.0-100.0) fL MCH (25.0-35.0) pg Plt Count (150-450) k/uL Neutrophils # (1.3-7.7) k/uL Lymphocytes # (1.0-4.8) k/uL Macrocytosis Potassium (3.5-5.1) mmol/L Chloride (98-107) mmol/L BUN (9-20) mg/dL Creatinine (0.66-1.25) mg/dL Glucose (74-99) mg/dL POC Glucose (mg/dL) 213 H (70-110) mg/dL Calcium (8.4-10.2) mg/dL Ionized Calcium Joshua 3.9 L (4.5-5.3) mg/dL Total Bilirubin (0.2-1.3) mg/dL AST (17-59) U/L Alkaline Phosphatase (38-126) U/L Creatine Kinase (55-170) U/L Total Protein (6.3-8.2) g/dL Albumin (3.5-5.0) g/dL Cortisol 32.0 H (3.1-22.4) UG/DL 10/09/24 10/09/24 10/09/24 Range/Units 12:30 16:16 16:18 WBC (3.8-10.6) k/uL RBC (4.30-5.90) m/uL Hgb (13.0-17.5) gm/dL Hct (39.0-53.0) % MCV (80.0-100.0) fL MCH (25.0-35.0) pg Plt Count (150-450) k/uL Neutrophils # (1.3-7.7) k/uL Lymphocytes # (1.0-4.8) k/uL Macrocytosis Potassium 3.3 L (3.5-5.1) mmol/L Chloride (98-107) mmol/L BUN (9-20) mg/dL Creatinine (0.66-1.25) mg/dL Glucose (74-99) mg/dL POC Glucose (mg/dL) 140 H 119 H (70-110) mg/dL Calcium (8.4-10.2) mg/dL Ionized Calcium Joshua (4.5-5.3) mg/dL Total Bilirubin (0.2-1.3) mg/dL AST (17-59) U/L Alkaline Phosphatase (38-126) U/L Creatine Kinase (55-170) U/L Total Protein (6.3-8.2) g/dL Albumin (3.5-5.0) g/dL Cortisol (3.1-22.4) UG/DL 10/09/24 10/09/24 10/09/24 Range/Units 16:22 20:21 23:35 WBC (3.8-10.6) k/uL RBC (4.30-5.90) m/uL Hgb (13.0-17.5) gm/dL Hct (39.0-53.0) % MCV (80.0-100.0) fL MCH (25.0-35.0) pg Plt Count (150-450) k/uL Neutrophils # (1.3-7.7) k/uL Lymphocytes # (1.0-4.8) k/uL Macrocytosis Potassium (3.5-5.1) mmol/L Chloride (98-107) mmol/L BUN (9-20) mg/dL Creatinine (0.66-1.25) mg/dL Glucose (74-99) mg/dL POC Glucose (mg/dL) 128 H 143 H 170 H (70-110) mg/dL Calcium (8.4-10.2) mg/dL Ionized Calcium Joshua (4.5-5.3) mg/dL Total Bilirubin (0.2-1.3) mg/dL AST (17-59) U/L Alkaline Phosphatase (38-126) U/L Creatine Kinase (55-170) U/L Total Protein (6.3-8.2) g/dL Albumin (3.5-5.0) g/dL Cortisol (3.1-22.4) UG/DL 10/10/24 10/10/24 10/10/24 Range/Units 04:03 04:37 04:37 WBC 16.4 H (3.8-10.6) k/uL RBC 2.69 L (4.30-5.90) m/uL Hgb 9.8 L (13.0-17.5) gm/dL Hct 29.6 L (39.0-53.0) % MCV 110.2 H (80.0-100.0) fL MCH 36.6 H (25.0-35.0) pg Plt Count 38 L (150-450) k/uL Neutrophils # 14.9 H (1.3-7.7) k/uL Lymphocytes # 0.6 L (1.0-4.8) k/uL Macrocytosis Marked A Potassium (3.5-5.1) mmol/L Chloride 112 H (98-107) mmol/L BUN 35 H (9-20) mg/dL Creatinine 1.26 H (0.66-1.25) mg/dL Glucose 164 H (74-99) mg/dL POC Glucose (mg/dL) 164 H (70-110) mg/dL Calcium 6.6 L (8.4-10.2) mg/dL Ionized Calcium Joshua 4.1 L (4.5-5.3) mg/dL Total Bilirubin 3.3 H (0.2-1.3) mg/dL AST 154 H (17-59) U/L Alkaline Phosphatase 271 H (38-126) U/L Creatine Kinase 983 H (55-170) U/L Total Protein 4.7 L (6.3-8.2) g/dL Albumin 2.2 L (3.5-5.0) g/dL Cortisol (3.1-22.4) UG/DL 10/10/24 Range/Units 08:18 WBC (3.8-10.6) k/uL RBC (4.30-5.90) m/uL Hgb (13.0-17.5) gm/dL Hct (39.0-53.0) % MCV (80.0-100.0) fL MCH (25.0-35.0) pg Plt Count (150-450) k/uL Neutrophils # (1.3-7.7) k/uL Lymphocytes # (1.0-4.8) k/uL Macrocytosis Potassium (3.5-5.1) mmol/L Chloride (98-107) mmol/L BUN (9-20) mg/dL Creatinine (0.66-1.25) mg/dL Glucose (74-99) mg/dL POC Glucose (mg/dL) 168 H (70-110) mg/dL Calcium (8.4-10.2) mg/dL Ionized Calcium Joshua (4.5-5.3) mg/dL Total Bilirubin (0.2-1.3) mg/dL AST (17-59) U/L Alkaline Phosphatase (38-126) U/L Creatine Kinase (55-170) U/L Total Protein (6.3-8.2) g/dL Albumin (3.5-5.0) g/dL Cortisol (3.1-22.4) UG/DL Microbiology - Last 24 Hours (Table) 10/07/24 16:26 Blood Culture - Preliminary Blood 10/08/24 06:16 Blood Culture - Preliminary Blood 10/06/24 15:48 Blood Culture Gram Stain - Final Blood Blood Culture - Final Strep A Molecular ID Assessment and Plan Assessment: Chronic alcohol abuse with acute alcohol withdrawal syndrome. Rhabdomyolysis secondary to immobility due to fall. Acute kidney injury secondary to ATN due to to septic shock and rhabdomyolysis. Relative adrenal insufficiency. Transaminitis. Improving. Streptococcus group A bacteremia. Currently on cefazolin. Lactic acidosis. Resolved. Hyponatremia, likely hypovolemic. Hypoalbuminemia. Acute kidney injury with acute tubular necrosis, secondary to sepsis and rhabdomyolysis. Improving. Type 1 diabetes mellitus. History of coronary artery disease with previous catheterization and stent placement. History of GERD. Hyperlipidemia. Hypertension. History of myocardial infarction. History of osteoarthritis. Plan: Start IV hydrocortisone succinate 50 mg every 6 hours. Continue IV cefazolin. Reinsert NG tube for tube feeds. Monitor blood sugars. Continue CIWA protocol. Monitor hemodynamics. GI prophylaxis with IV Protonix. DVT prophylaxis with SCDs. Labs, x-rays, and medications were reviewed.
[2024-10-10] MEDS: AMIODARONE 450 MG in DEXTROSE 5% IN WATER 250 ML IV SCH (12:16)
[2024-10-10] MEDS: CALCIUM GLUCONATE IN NACL 2 GM in SALINE 1 100ML.BAG IVPB ONE (12:16)
--- NOTE | 2024-10-10 12:39 | P.PN ---
Subjective Progress Note Date: 10/10/24 Principal diagnosis: Right knee septic arthropathy, sepsis Patient was examined today at bedside, he remains in the ICU. Patient's mental state remains significantly altered, he remains about the same maybe a little bit worse than yesterday. I was able to speak with the today over the phone regarding consent for an aspiration of the right knee. Patient also had a son and daughter at bedside today that I discussed his case with. Patient is currently being followed by multiple medical specialties. Consent was obtained for a right knee aspiration, this was done at bedside. Please see procedure note for further detail. Objective - Vital Signs Vital signs: Vital Signs Temp 97.5 F L 10/10/24 08:00 Pulse 81 10/10/24 12:00 Resp 26 H 10/10/24 12:00 BP 93/57 10/09/24 10:15 Pulse Ox 95 10/10/24 12:08 FiO2 13 10/10/24 09:00 Intake & Output 10/09/24 10/10/24 10/10/24 18:59 06:59 18:59 Intake Total 3511.330 2484.106 835.389 Output Total 900 780 525 Balance 2611.330 1704.106 310.389 Weight 84.9 kg 85.6 kg Intake: IV 273 276 492 0.9 kvo 273 276 92 Sodium Chloride 0.9% 1, 400 000 ml @ 100 mls/hr IV . Q10H [facility] Rx#:[id number] Intake, IV Titration 3238.330 2068.106 343.389 Amount Calcium Gluconate in NaCl 100 2 gm In Saline 1 100ml. bag @ 100 mls/hr IVPB ONCE ONE Rx#:[id number] Magnesium Sulfate-D5w Pmx 200 1 gm In Dextrose/Water 1 100ml.bag @ 100 mls/hr IVPB Q1H [facility] Rx#: [id number] Norepinephrine 8 mg In 485.488 268.106 93.389 Sodium Chloride 0.9% 250 ml @ 0.14 MCG/KG/MIN 20. 236 mls/hr IV .[id number] [facility] Rx#:[id number] Potassium Chloride 10 meq 100 In Water For Injection 1 100ml.bag @ 100 mls/hr IVPB Q1H [facility] Rx#: [id number] Potassium Chloride 10 meq 200 In Water For Injection 1 100ml.bag @ 100 mls/hr IVPB Q1H [facility] Rx#: [id number] Potassium Chloride 20 meq 200 100 In Water For Injection 1 100ml.bag @ 50 mls/hr IVPB Q2H [facility] Rx#: [id number] Sodium Chloride 0.9% 1, 1650 1800 150 000 ml @ 100 mls/hr IV . Q10H [facility] Rx#:[id number] Sodium Chloride 0.9% 1, 150 000 ml @ 150 mls/hr IV . Q6H40M [facility] Rx#:[id number] Vasopressin 60 unit In 102.842 Sodium Chloride 0.9% 150 ml @ 0.03 UNITS/MIN 4.59 mls/hr IV .Q24H [facility] Rx#: [id number] ceFAZolin 2 gm In Sodium 50 Chloride 0.9% 50 ml @ 100 mls/hr IVPB Q8HR [facility] Rx# :[id number] Tube Feeding 110 Other 30 Output: Urine 900 780 525 Other: Voiding Method Indwelling Catheter Indwelling Catheter ABP, PAP, CO, CI - Last Documented Arterial Blood Pressure 115/45 - Exam Right lower extremity: No obvious open lesions, sores or areas of erythema surrounding the knee. There is some abrasions and wounds to the right foot. Notable effusion present over the right knee Patient demonstrates no significant tenderness with palpation surrounding the knee. No obvious visual pain signs are elected with palpation of the upper thigh, the lower leg, the foot or ankle Passive range of motion of the knee reproduces no significant pain cues, was able to flex him to about 90 degrees and fully extend His calf is soft, there is no significant swelling present Patient was very uncooperative with range of motion exercises at bedside Dorsalis pedis pulses 2+ - Labs CBC & Chem 7: 10/10/24 04:37 10/10/24 04:37 Labs: Abnormal Lab Results - Last 24 Hours (Table) 10/09/24 10/09/24 10/09/24 Range/Units 12:30 16:16 16:18 WBC (3.8-10.6) k/uL RBC (4.30-5.90) m/uL Hgb (13.0-17.5) gm/dL Hct (39.0-53.0) % MCV (80.0-100.0) fL MCH (25.0-35.0) pg Plt Count (150-450) k/uL Neutrophils # (1.3-7.7) k/uL Lymphocytes # (1.0-4.8) k/uL Macrocytosis Potassium 3.3 L (3.5-5.1) mmol/L Chloride (98-107) mmol/L BUN (9-20) mg/dL Creatinine (0.66-1.25) mg/dL Glucose (74-99) mg/dL POC Glucose (mg/dL) 140 H 119 H (70-110) mg/dL Calcium (8.4-10.2) mg/dL Ionized Calcium Joshua (4.5-5.3) mg/dL Total Bilirubin (0.2-1.3) mg/dL AST (17-59) U/L Alkaline Phosphatase (38-126) U/L Creatine Kinase (55-170) U/L Total Protein (6.3-8.2) g/dL Albumin (3.5-5.0) g/dL 10/09/24 10/09/24 10/09/24 Range/Units 16:22 20:21 23:35 WBC (3.8-10.6) k/uL RBC (4.30-5.90) m/uL Hgb (13.0-17.5) gm/dL Hct (39.0-53.0) % MCV (80.0-100.0) fL MCH (25.0-35.0) pg Plt Count (150-450) k/uL Neutrophils # (1.3-7.7) k/uL Lymphocytes # (1.0-4.8) k/uL Macrocytosis Potassium (3.5-5.1) mmol/L Chloride (98-107) mmol/L BUN (9-20) mg/dL Creatinine (0.66-1.25) mg/dL Glucose (74-99) mg/dL POC Glucose (mg/dL) 128 H 143 H 170 H (70-110) mg/dL Calcium (8.4-10.2) mg/dL Ionized Calcium Joshua (4.5-5.3) mg/dL Total Bilirubin (0.2-1.3) mg/dL AST (17-59) U/L Alkaline Phosphatase (38-126) U/L Creatine Kinase (55-170) U/L Total Protein (6.3-8.2) g/dL Albumin (3.5-5.0) g/dL 10/10/24 10/10/24 10/10/24 Range/Units 04:03 04:37 04:37 WBC 16.4 H (3.8-10.6) k/uL RBC 2.69 L (4.30-5.90) m/uL Hgb 9.8 L (13.0-17.5) gm/dL Hct 29.6 L (39.0-53.0) % MCV 110.2 H (80.0-100.0) fL MCH 36.6 H (25.0-35.0) pg Plt Count 38 L (150-450) k/uL Neutrophils # 14.9 H (1.3-7.7) k/uL Lymphocytes # 0.6 L (1.0-4.8) k/uL Macrocytosis Marked A Potassium (3.5-5.1) mmol/L Chloride 112 H (98-107) mmol/L BUN 35 H (9-20) mg/dL Creatinine 1.26 H (0.66-1.25) mg/dL Glucose 164 H (74-99) mg/dL POC Glucose (mg/dL) 164 H (70-110) mg/dL Calcium 6.6 L (8.4-10.2) mg/dL Ionized Calcium Joshua 4.1 L (4.5-5.3) mg/dL Total Bilirubin 3.3 H (0.2-1.3) mg/dL AST 154 H (17-59) U/L Alkaline Phosphatase 271 H (38-126) U/L Creatine Kinase 983 H (55-170) U/L Total Protein 4.7 L (6.3-8.2) g/dL Albumin 2.2 L (3.5-5.0) g/dL 10/10/24 Range/Units 08:18 WBC (3.8-10.6) k/uL RBC (4.30-5.90) m/uL Hgb (13.0-17.5) gm/dL Hct (39.0-53.0) % MCV (80.0-100.0) fL MCH (25.0-35.0) pg Plt Count (150-450) k/uL Neutrophils # (1.3-7.7) k/uL Lymphocytes # (1.0-4.8) k/uL Macrocytosis Potassium (3.5-5.1) mmol/L Chloride (98-107) mmol/L BUN (9-20) mg/dL Creatinine (0.66-1.25) mg/dL Glucose (74-99) mg/dL POC Glucose (mg/dL) 168 H (70-110) mg/dL Calcium (8.4-10.2) mg/dL Ionized Calcium Joshua (4.5-5.3) mg/dL Total Bilirubin (0.2-1.3) mg/dL AST (17-59) U/L Alkaline Phosphatase (38-126) U/L Creatine Kinase (55-170) U/L Total Protein (6.3-8.2) g/dL Albumin (3.5-5.0) g/dL Microbiology - Last 24 Hours (Table) 10/07/24 16:26 Blood Culture - Preliminary Blood 10/08/24 06:16 Blood Culture - Preliminary Blood 10/06/24 15:48 Blood Culture Gram Stain - Final Blood Blood Culture - Final Strep A Molecular ID Assessment and Plan Assessment: Right knee septic arthropathy Right knee effusion Right knee osteoarthritis Left knee osteoarthritis Bacteremia Alcohol abuse Multiple medical comorbidities Plan: Plan: Bedside aspiration was done today, please see procedure note for further detail. Obvious purulent material was noted. Stat labs were ordered after fluid was sent, this to include anaerobic, aerobic, fungal cultures, cell count, Gram stain and crystal analysis. I was able to speak with multiple family members today regarding the patient's current medical state and options for treatment. They do realize that the patient is very sick and medically unstable at this time. We would like to take the patient to the operating room for a right knee arthroscopic lavage. Risk and benefits of the procedure were discussed with the patient's family and they are in good understanding. Was able to discuss with the anesthesia team and pulmonology regarding patient's current state and their recommendations for a surgical procedure. I advised nursing to reach out to cardiology to discuss optimization/clearance for surgery. Continue IV antibiotics Consent to be obtained prior to procedure Patient has been scheduled for a right knee arthroscopic lavage for 10/11/2024 If patient is unable to receive surgery in the next 24 hours, we will proceed with additional aspirations of the right knee Other medical specialty recommendations appreciated GI DVT prophylaxis per primary medical service Further recommendations to follow Time with Patient: Less than 30
--- NOTE | 2024-10-10 12:41 | P.PCN ---
Date of Procedure: 10/10/24 Preoperative Diagnosis: Right knee effusion, right knee osteoarthritis Postoperative Diagnosis: Septic right knee arthropathy, right knee osteoarthritis Procedure(s) Performed: Right knee aspiration Anesthesia: local Surgeon: Timbo Paige Pathology: none sent Condition: critical Disposition: no change Indications for Procedure: Right knee effusion, bacteremia Description of Procedure: Risk and benefits of the right knee aspiration were discussed with the patient's son, daughter and . Consent was obtained from the prior to the procedure, this was placed in chart. Patient was in the supine position, the knee was prepped with 1 iodine swab and 3 alcohol swabs. A 20-gauge needle was used to aspirate about 50 cc of purulent joint fluid via the suprapatellar approach. A bandage was placed after aspiration. Joint fluid was placed in a red top and green top tube and sent to lab with multiple orders, this to include anaerobic, aerobic and fungal cultures, Gram stain, cell count and crystal analysis.
[2024-10-10 12:43] LABS: Glucose,Whole Blood 226 mg/dL (70-110)
[2024-10-10 12:43] LABS: Glucose,Whole Blood 191 mg/dL (70-110)
[2024-10-10] MEDS: HYDROCORTISONE SUCCINATE 100 MG/2 ML VIAL IV SCH (12:45)
--- NOTE | 2024-10-10 13:53 | P.PN ---
Subjective Progress Note Date: 10/10/24 Principal diagnosis: Reason for follow-up is Streptococcus agalactiae bacteremia Patient is a 64-year-old male past medical his significant for diabetes mellitus hypertension hyperlipidemia [place] osteoarthritis coronary disease patient was brought into the hospital after apparently the patient was found to be facedown on the ground with contusion to his forehead and abrasion to his knee and some bloody toes, patient did have a fever subsequently blood cultures came back positive with Streptococcus agalactiae prompting this consultation. On today's evaluation that is 10/10/2024, Patient continues to be afebrile, P did have worsening of his respiratory status and has been placed on partial rebreather patient remains to be lethargic sleepy and cannot provide any history no vomiting or diarrhea has been reported. Patient white count is up to 16.4, creatinine is 1.26 blood culture repeat has been negative so far Objective - Vital Signs Vital signs: Vital Signs Temp 97.6 F 10/10/24 12:00 Pulse 82 10/10/24 13:00 Resp 16 10/10/24 13:00 BP 109/56 10/10/24 12:15 Pulse Ox 95 10/10/24 13:00 FiO2 13 10/10/24 09:00 Intake & Output 10/09/24 10/10/24 10/10/24 18:59 06:59 18:59 Intake Total 3511.330 2484.106 982.240 Output Total 900 780 585 Balance 2611.330 1704.106 397.240 Weight 84.9 kg 85.6 kg 85.6 kg Intake: IV 273 276 615 0.9 kvo 273 276 115 Sodium Chloride 0.9% 1, 500 000 ml @ 100 mls/hr IV . Q10H [facility] Rx#:[id number] Intake, IV Titration 3238.330 2068.106 367.240 Amount Calcium Gluconate in NaCl 100 2 gm In Saline 1 100ml. bag @ 100 mls/hr IVPB ONCE ONE Rx#:[id number] Magnesium Sulfate-D5w Pmx 200 1 gm In Dextrose/Water 1 100ml.bag @ 100 mls/hr IVPB Q1H [facility] Rx#: [id number] Norepinephrine 8 mg In 485.488 268.106 117.240 Sodium Chloride 0.9% 250 ml @ 0.14 MCG/KG/MIN 20. 236 mls/hr IV .[id number] [facility] Rx#:[id number] Potassium Chloride 10 meq 100 In Water For Injection 1 100ml.bag @ 100 mls/hr IVPB Q1H [facility] Rx#: [id number] Potassium Chloride 10 meq 200 In Water For Injection 1 100ml.bag @ 100 mls/hr IVPB Q1H [facility] Rx#: [id number] Potassium Chloride 20 meq 200 100 In Water For Injection 1 100ml.bag @ 50 mls/hr IVPB Q2H [facility] Rx#: [id number] Sodium Chloride 0.9% 1, 1650 1800 150 000 ml @ 100 mls/hr IV . Q10H [facility] Rx#:[id number] Sodium Chloride 0.9% 1, 150 000 ml @ 150 mls/hr IV . Q6H40M [facility] Rx#:[id number] Vasopressin 60 unit In 102.842 Sodium Chloride 0.9% 150 ml @ 0.03 UNITS/MIN 4.59 mls/hr IV .Q24H [facility] Rx#: [id number] ceFAZolin 2 gm In Sodium 50 Chloride 0.9% 50 ml @ 100 mls/hr IVPB Q8HR [facility] Rx# :[id number] Tube Feeding 110 Other 30 Output: Urine 900 780 585 Other: Voiding Method Indwelling Catheter Indwelling Catheter Indwelling Catheter ABP, PAP, CO, CI - Last Documented Arterial Blood Pressure 97/36 - Exam GENERAL DESCRIPTION: Middle-age male lying in bed in no distress RESPIRATORY SYSTEM: Unlabored breathing , decreased breath sounds at bases HEART: S1 S2 regular rate and rhythm , ABDOMEN: Soft , no tenderness EXTREMITIES: No edema feet - Labs CBC & Chem 7: 10/10/24 04:37 10/10/24 04:37 Labs: Abnormal Lab Results - Last 24 Hours (Table) 10/09/24 10/09/24 10/09/24 Range/Units 16:16 16:18 16:22 WBC (3.8-10.6) k/uL RBC (4.30-5.90) m/uL Hgb (13.0-17.5) gm/dL Hct (39.0-53.0) % MCV (80.0-100.0) fL MCH (25.0-35.0) pg Plt Count (150-450) k/uL Neutrophils # (1.3-7.7) k/uL Lymphocytes # (1.0-4.8) k/uL Macrocytosis Chloride (98-107) mmol/L BUN (9-20) mg/dL Creatinine (0.66-1.25) mg/dL Glucose (74-99) mg/dL POC Glucose (mg/dL) 140 H 119 H 128 H (70-110) mg/dL Calcium (8.4-10.2) mg/dL Ionized Calcium Joshua (4.5-5.3) mg/dL Total Bilirubin (0.2-1.3) mg/dL AST (17-59) U/L Alkaline Phosphatase (38-126) U/L Creatine Kinase (55-170) U/L Total Protein (6.3-8.2) g/dL Albumin (3.5-5.0) g/dL 10/09/24 10/09/24 10/10/24 Range/Units 20:21 23:35 04:03 WBC (3.8-10.6) k/uL RBC (4.30-5.90) m/uL Hgb (13.0-17.5) gm/dL Hct (39.0-53.0) % MCV (80.0-100.0) fL MCH (25.0-35.0) pg Plt Count (150-450) k/uL Neutrophils # (1.3-7.7) k/uL Lymphocytes # (1.0-4.8) k/uL Macrocytosis Chloride (98-107) mmol/L BUN (9-20) mg/dL Creatinine (0.66-1.25) mg/dL Glucose (74-99) mg/dL POC Glucose (mg/dL) 143 H 170 H 164 H (70-110) mg/dL Calcium (8.4-10.2) mg/dL Ionized Calcium Joshua (4.5-5.3) mg/dL Total Bilirubin (0.2-1.3) mg/dL AST (17-59) U/L Alkaline Phosphatase (38-126) U/L Creatine Kinase (55-170) U/L Total Protein (6.3-8.2) g/dL Albumin (3.5-5.0) g/dL 11/21/24 11/21/24 11/21/24 Range/Units 04:37 04:37 08:18 WBC 16.4 H (3.8-10.6) k/uL RBC 2.69 L (4.30-5.90) m/uL Hgb 9.8 L (13.0-17.5) gm/dL Hct 29.6 L (39.0-53.0) % MCV 110.2 H (80.0-100.0) fL MCH 36.6 H (25.0-35.0) pg Plt Count 38 L (150-450) k/uL Neutrophils # 14.9 H (1.3-7.7) k/uL Lymphocytes # 0.6 L (1.0-4.8) k/uL Macrocytosis Marked A Chloride 112 H (98-107) mmol/L BUN 35 H (9-20) mg/dL Creatinine 1.26 H (0.66-1.25) mg/dL Glucose 164 H (74-99) mg/dL POC Glucose (mg/dL) 168 H (70-110) mg/dL Calcium 6.6 L (8.4-10.2) mg/dL Ionized Calcium Joshua 4.1 L (4.5-5.3) mg/dL Total Bilirubin 3.3 H (0.2-1.3) mg/dL AST 154 H (17-59) U/L Alkaline Phosphatase 271 H (38-126) U/L Creatine Kinase 983 H (55-170) U/L Total Protein 4.7 L (6.3-8.2) g/dL Albumin 2.2 L (3.5-5.0) g/dL 10/10/24 10/10/24 Range/Units 12:39 12:41 WBC (3.8-10.6) k/uL RBC (4.30-5.90) m/uL Hgb (13.0-17.5) gm/dL Hct (39.0-53.0) % MCV (80.0-100.0) fL MCH (25.0-35.0) pg Plt Count (150-450) k/uL Neutrophils # (1.3-7.7) k/uL Lymphocytes # (1.0-4.8) k/uL Macrocytosis Chloride (98-107) mmol/L BUN (9-20) mg/dL Creatinine (0.66-1.25) mg/dL Glucose (74-99) mg/dL POC Glucose (mg/dL) 226 H 191 H (70-110) mg/dL Calcium (8.4-10.2) mg/dL Ionized Calcium Joshua (4.5-5.3) mg/dL Total Bilirubin (0.2-1.3) mg/dL AST (17-59) U/L Alkaline Phosphatase (38-126) U/L Creatine Kinase (55-170) U/L Total Protein (6.3-8.2) g/dL Albumin (3.5-5.0) g/dL Microbiology - Last 24 Hours (Table) 10/09/24 05:12 Blood Culture - Preliminary Blood 10/08/24 06:16 Blood Culture - Preliminary Blood 10/07/24 16:26 Blood Culture - Preliminary Blood Assessment and Plan (1) Sepsis Current Visit: Yes Status: Acute Code(s): A41.9 - SEPSIS, UNSPECIFIED ORGANISM SNOMED Code(s): 86057371 (2) Streptococcal bacteremia Current Visit: Yes Status: Acute Code(s): R78.81 - BACTEREMIA; B95.5 - UNSP STREPTOCOCCUS THE CAUSE OF DISEASES [facility] SNOMED Code(s): 736391068897 Plan: 1patient presented to the hospital with sepsis in this patient who did have fever tachycardia elevated white count and now with evidence of streptococcal bacteremia which is usually of skin and soft tissue origin 2-patient with renal insufficiency and high risk of toxicity from vancomycin however the kidney function is improving 3-patient noticed to have right knee effusion has been evaluated by orthopedics and is status post aspiration with purulent drainage more likely the source of this bacteremia continue with the cefazolin await further recommendation from orthopedics Dictation was produced using [employer] dictation software. please excuse any grammatical, word or spelling errors.
[2024-10-10 14:48] LABS: Color,BF Yellow
[2024-10-10 14:49] LABS: RBC, Body Fluid 6500 /uL
[2024-10-10 14:53] LABS: Nucleated Cells, Body Fluid 130000 /uL
[2024-10-10 15:04] LABS: Mononuclear WBC,Body Fluid 14 %; Polynuclear WBC,Body Fluid 86 %; Total Cells Counted,Body Fluid 100
--- NOTE | 2024-10-10 16:06 | P.CRDCN ---
History of Present Illness History of present illness: HISTORY OF PRESENTING ILLNESS Patient is a pleasant 64-year-old male with history of hypertension, hyperlipidemia, diabetes mellitus, CAD with prior stenting of the circumflex as well as in-stent stenosis treated medically in 2021, alcohol abuse who follows with Dr. Saavedra. He apparently had not been feeling well on Monday and then on Monday had an episode where he was found unresponsive possibly down for 2 hours. He was evaluated in emergency department with multiple derangements including acute kidney injury, hypovolemic shock, liver injury, anemia. He was admitted to ICU and placed on norepinephrine. He does drink a fifth of 80 Shane daily and has been going through withdrawals receiving Ativan and Dilaudid. He currently is nonresponsive on nonrebreather. He did go into A. fib with RVR which is new onset with some decrease in blood pressure and therefore was placed on amiodarone drip. His creatinine has improved from 3 down to 1.3. He was found to have strep bacteremia and had increasing right knee erythema and eventually underwent knee aspiration. He therefore is being evaluated for knee arthroscopy. He is not answering questions and questions are filled in by family. Family states he was able walk a city block without difficulty previously. His echocardiogram shows EF 45-50% without significant valvular disease. REVIEW OF SYSTEMS At the time of my exam: Unable to obtain secondary to altered mental status PHYSICAL EXAMINATION Vital signs reviewed. CONSTITUTIONAL: No apparent distress, ill-appearing, not following commands on nonrebreather HEENT: Head is normocephalic. Pupils are equal, round. Sclerae anicteric. Mucous membranes of the mouth are moist. No JVD. No carotid bruit. CHEST EXAMINATION: Lungs are clear to auscultation. No chest wall tenderness is noted on palpation or with deep breathing. HEART EXAMINATION: Regular rate and rhythm. S1, S2 heard. No murmurs, gallops or rub. ABDOMEN: Soft, nontender. Positive bowel sounds. EXTREMITIES: Ulcerations on his left toes NEUROLOGIC EXAMINATION: Patient is not following commands ASSESSMENT New-onset A. fib with RVR, currently normal sinus rhythm Strep bacteremia CAD with prior history of stenting as well as in-stent stenosis Alcohol abuse Hypertension Septic shock Diabetes mellitus type 2 Preoperative cardiovascular exam Altered mental status PLAN Patient prior to his illness could do basic activities including 4 metastases of activity without any angina-type symptoms. He does have significant CAD and stenting as well as in-stent stenosis and he therefore is increased risk however benefits appear to outweigh risks of arthroscopic he and patient is cleared from a cardiology standpoint. Echo overall showing preserved EF 45-50%. Continue with current supportive care. Prognosis guarded. Past Medical History Past Medical History: Coronary Artery Disease (CAD), Diabetes Mellitus, GERD/Reflux, Hyperlipidemia, Hypertension, Myocardial Infarction ([place]), Osteoarthritis (OA) Additional Past Medical History / Comment(s): arthritis in fingers, knees, and neck area; NT in bilat arms Last Myocardial Infarction Date:: 2009 History of Any Multi-Drug Resistant Organisms: None Reported Past Surgical History: Heart Catheterization With Stent Additional Past Surgical History / Comment(s): ANAL FISSURE REPAIR, 2 cardiac stents, bhargavi cataracts. Pain proc Past Anesthesia/Blood Transfusion Reactions: No Reported Reaction Date of Last Stent Placement:: 2015 Past Psychological History: No Psychological Hx Reported Smoking Status: Former smoker Past Alcohol Use History: Daily - Past Family History Father Family Medical History: Cancer Additional Family Medical History / Comment(s): PANCREATIC Medications and Allergies Home Medications Medication Instructions Recorded Confirmed Type Aspirin [Adult Low Dose Aspirin EC] 81 mg PO DAILY 08/29/18 10/06/24 History Insulin Aspart [NovoLOG] See Protocol SQ AC-TID 08/29/18 10/06/24 History Insulin Glargine [Lantus Vial] 20 unit SQ DAILY 08/29/18 10/06/24 History Pantoprazole Sodium [Protonix] 40 mg PO DAILY 08/29/18 10/06/24 History lisinopriL [Zestril] 10 mg PO DAILY 08/29/18 10/06/24 History Atorvastatin [Lipitor] 80 mg PO DAILY #90 tab 10/26/18 10/06/24 Rx Metoprolol Tartrate [Lopressor] 50 mg PO BID 03/02/21 10/06/24 History HYDROcodone/APAP 7.5-325MG [Beulah 1 tab PO BID PRN 10/06/24 10/06/24 History 7.5-325] Allergies Allergy/AdvReac Type Severity Reaction Status Date / Time No Known Allergies Allergy Verified 10/06/24 14:43 Physical Exam Vitals: Vital Signs Temp Pulse Resp BP Pulse Ox FiO2 10/10/24 15:15 96 15 120/56 95 10/10/24 15:00 93 14 94 L 10/10/24 14:45 94 13 94 L 10/10/24 14:30 93 13 95 10/10/24 14:15 92 14 115/59 94 L 10/10/24 14:00 88 14 94 L 10/10/24 13:45 89 16 94 L 10/10/24 13:30 88 16 94 L 10/10/24 13:15 87 18 100/53 95 10/10/24 13:00 82 16 95 10/10/24 12:45 82 28 H 10/10/24 12:30 80 27 H 10/10/24 12:15 73 24 109/56 96 10/10/24 12:08 95 10/10/24 12:00 97.6 F 81 26 H 94 L 10/10/24 11:45 79 22 94 L 10/10/24 11:30 81 32 H 94 L 10/10/24 11:15 78 19 95 10/10/24 11:00 82 18 94 L 10/10/24 10:45 79 17 95 10/10/24 10:30 78 24 96 10/10/24 10:15 81 18 95 10/10/24 10:00 81 27 H 95 10/10/24 09:45 78 18 91 L 10/10/24 09:30 78 17 92 L 10/10/24 09:15 76 43 H 93 L 10/10/24 09:00 80 22 91 L 13 10/10/24 08:45 77 15 91 L 10/10/24 08:30 87 36 H 89 L 10/10/24 08:15 91 17 93 L 10/10/24 08:00 97.5 F L 89 16 94 L 10/10/24 07:45 92 18 97 10/10/24 07:30 125 H 14 97 10/10/24 07:15 121 H 15 96 10/10/24 07:00 120 H 18 96 15 10/10/24 06:45 128 H 13 96 10/10/24 06:30 121 H 15 93 L 15 10/10/24 06:15 109 H 15 97 10/10/24 06:00 128 H 20 97 10/10/24 05:45 117 H 19 94 L 10/10/24 05:30 120 H 5 L 98 10/10/24 05:15 123 H 28 H 97 10/10/24 05:00 129 H 12 95 15 10/10/24 04:45 75 23 96 15 10/10/24 04:30 90 31 H 96 15 10/10/24 04:15 87 30 H 98 15 10/10/24 04:00 98.2 F 87 24 96 15 10/10/24 03:45 92 12 92 L 15 10/10/24 03:40 93 L 100 10/10/24 03:30 82 31 H 96 15 10/10/24 03:15 88 25 H 87 L 15 10/10/24 03:00 73 28 H 95 10/10/24 02:45 81 28 H 96 10/10/24 02:30 89 30 H 92 L 10/10/24 02:15 82 31 H 93 L 10/10/24 02:00 80 29 H 94 L 10/10/24 01:45 85 21 96 10/10/24 01:30 89 20 90 L 10/10/24 01:15 81 12 85 L 10/10/24 01:00 80 19 91 L 10/10/24 00:45 85 18 90 L 10/10/24 00:30 81 21 92 L 10/10/24 00:15 86 25 H 90 L 10/10/24 00:00 92 18 90 L 10/09/24 23:45 89 22 90 L 10/09/24 23:30 87 19 92 L 10/09/24 23:15 78 20 91 L 10/09/24 23:00 91 16 89 L 10/09/24 22:45 84 16 91 L 10/09/24 22:30 98 27 H 90 L 10/09/24 22:15 85 24 92 L 10/09/24 22:00 83 17 91 L 10/09/24 21:45 79 19 93 L 10/09/24 21:30 80 15 92 L 10/09/24 21:15 83 14 94 L 10/09/24 21:00 81 15 92 L 10/09/24 20:45 83 19 92 L 10/09/24 20:30 78 13 92 L 10/09/24 20:15 76 11 L 93 L 10/09/24 20:00 98.5 F 72 13 94 L 10/09/24 19:45 74 12 94 L 11/20/24 19:30 74 16 95 10/09/24 19:15 75 16 94 L 10/09/24 19:00 77 16 93 L 10/09/24 18:45 79 16 90 L 10/09/24 18:30 80 16 91 L 10/09/24 18:15 78 16 91 L 10/09/24 18:00 80 16 92 L 10/09/24 17:45 78 20 96 10/09/24 17:30 77 16 95 10/09/24 17:15 81 16 92 L 10/09/24 17:00 72 18 95 10/09/24 16:45 75 20 96 10/09/24 16:30 74 16 95 10/09/24 16:15 74 16 97 Intake and Output 10/10/24 10/10/24 10/10/24 06:59 14:59 22:59 Intake Total 4484.847 2004.512 267.465 Output Total 520 645 85 Balance 1020.596 479.512 182.465 Intake: IV 184 738 246 0.9 kvo 184 138 46 Sodium Chloride 0.9% 1, 600 200 000 ml @ 100 mls/hr IV . Q10H [facility] Rx#:[id number] Intake, IV Titration 1326.596 386.512 21.465 Amount Norepinephrine 8 mg In 126.596 136.512 21.465 Sodium Chloride 0.9% 250 ml @ 0.14 MCG/KG/MIN 20. 236 mls/hr IV .[id number] [facility] Rx#:[id number] Potassium Chloride 20 meq 100 In Water For Injection 1 100ml.bag @ 50 mls/hr IVPB Q2H [facility] Rx#: [id number] Sodium Chloride 0.9% 1, 1200 150 000 ml @ 100 mls/hr IV . Q10H [facility] Rx#:[id number] Tube Feeding 30 Other 0 Output: Urine 520 645 85 Other: Voiding Method Indwelling Catheter Indwelling Catheter Weight 85.6 kg 85.6 kg ABP, PAP, CO, CI - Last 8 Hours Arterial Blood Pressure 111/44 Arterial Blood Pressure 103/41 Arterial Blood Pressure 100/40 Arterial Blood Pressure 100/40 Arterial Blood Pressure 98/39 Arterial Blood Pressure 108/42 Arterial Blood Pressure 114/45 Arterial Blood Pressure 109/43 Arterial Blood Pressure 104/41 Arterial Blood Pressure 97/36 Arterial Blood Pressure 119/43 Arterial Blood Pressure 114/44 Arterial Blood Pressure 104/40 Arterial Blood Pressure 115/45 Arterial Blood Pressure 123/54 Arterial Blood Pressure 104/39 Arterial Blood Pressure 111/41 Arterial Blood Pressure 120/46 Arterial Blood Pressure 112/45 Arterial Blood Pressure 116/51 Arterial Blood Pressure 122/48 Arterial Blood Pressure 123/48 Arterial Blood Pressure 117/45 Arterial Blood Pressure 121/44 Arterial Blood Pressure 123/45 Arterial Blood Pressure 117/47 Arterial Blood Pressure 113/43 Arterial Blood Pressure 129/53 Arterial Blood Pressure 129/44 Results 10/10/24 04:37 10/10/24 04:37 Cardiac Enzymes 10/10/24 Range/Units 04:37 AST 154 H (17-59) U/L CBC 10/10/24 Range/Units 04:37 WBC 16.4 H (3.8-10.6) k/uL RBC 2.69 L (4.30-5.90) m/uL Hgb 9.8 L (13.0-17.5) gm/dL Hct 29.6 L (39.0-53.0) % Plt Count 38 L (150-450) k/uL Comprehensive Metabolic Panel 10/09/24 10/10/24 Range/Units 21:35 04:37 Sodium 138 (137-145) mmol/L Potassium 3.7 3.5 (3.5-5.1) mmol/L Chloride 112 H (98-107) mmol/L Carbon Dioxide 23 (22-30) mmol/L BUN 35 H (9-20) mg/dL Creatinine 1.26 H (0.66-1.25) mg/dL Glucose 164 H (74-99) mg/dL Calcium 6.6 L (8.4-10.2) mg/dL AST 154 H (17-59) U/L ALT 36 (4-49) U/L Alkaline Phosphatase 271 H (38-126) U/L Total Protein 4.7 L (6.3-8.2) g/dL Albumin 2.2 L (3.5-5.0) g/dL Current Medications Generic Name Dose Route Start Last Admin Trade Name Freq PRN Reason Stop Dose Admin Acetaminophen 650 mg 10/06/24 18:19 Acetaminophen Tab 325 Mg Tab PO Q4HR PRN Fever and/or Mild Pain Albuterol/Ipratropium 3 ml 10/06/24 18:19 Ipratropium-Albuterol 3 Ml Neb INHALATION RT-Q4H PRN Shortness Of Breath Or Wheezing Dextrose/Water 25 ml 10/07/24 07:32 Dextrose 50% Syringe 50 Ml IVP PER PROTOCOL PRN Hypoglycemia Protocol Dextrose/Water 50 ml 10/07/24 07:32 10/08/24 11:58 Dextrose 50% Syringe 50 Ml IVP 50 ml PER PROTOCOL PRN Administration Hypoglycemia Protocol Haloperidol Lactate 4 mg 10/08/24 09:19 Haloperidol Lactate 5 Mg/Ml 1 Ml Vial IVP Q4HR PRN Moderate Agitation Haloperidol Lactate 8 mg 10/08/24 09:20 Haloperidol Lactate 5 Mg/Ml 1 Ml Vial IVP Q4H PRN SEVERE AGITATION Hydrocortisone Sodium Succinate 50 mg 10/10/24 12:00 10/10/24 12:45 Hydrocortisone Succinate 100 Mg/2 Ml Vial IV 50 mg Q6HR [facility] Administration Hydromorphone HCl 0.5 mg 10/08/24 09:18 10/10/24 12:46 Hydromorphone 0.5 Mg/0.5 Ml Syringe IVP 0.5 mg Q2H PRN Administration Moderate Pain (Scale 4 to 6) Hydromorphone HCl 1 mg 10/08/24 09:19 10/09/24 08:18 Hydromorphone 1 Mg/Ml 1 Ml Syringe IVP 1 mg Q2H PRN Administration Severe Pain (Scale 7 to 10) Norepinephrine Bitartrate 8 mg 258 mls @ 20.236 mls/hr 10/07/24 22:00 10/10/24 15:51 / Sodium Chloride IV 0.12 mcg/kg/min .[id number] [facility] 17.345 mls/hr Titration Protocol 0.14 MCG/KG/MIN Cefazolin Sodium 2 gm/ Sodium 50 mls @ 100 mls/hr 10/08/24 08:30 10/10/24 08:51 Chloride IVPB 100 mls/hr Q8HR [facility] Administration Protocol Vasopressin 60 unit/ Sodium 153 mls @ 4.59 mls/hr 10/08/24 10:00 10/09/24 08:54 Chloride IV 0.02 units/min .Q24H [facility] 3.06 mls/hr Administration Protocol 0.03 UNITS/MIN Sodium Chloride 1,000 mls @ 100 mls/hr 10/09/24 10:00 10/10/24 09:45 Saline 0.9% IV 100 mls/hr .Q10H [facility] Administration Amiodarone HCl 450 mg/ 250 mls @ 16.667 mls/hr 10/10/24 12:00 10/10/24 12:16 Dextrose/Water IV 10/11/24 05:59 0.5 mg/min .Q15H [facility] 16.667 mls/hr Administration Protocol 0.5 MG/MIN Insulin Aspart 0 unit 10/07/24 08:45 10/10/24 12:46 Insulin Aspart (Novolog) 100 Unit/Ml Vial SQ 2 unit Q4HR [facility] Administration Protocol Lorazepam 1 mg 10/06/24 18:27 10/10/24 10:31 Lorazepam 2 Mg/Ml Inj IV 1 mg Q1HR PRN Administration CIWA 10 to 15 Lorazepam 1 mg 10/06/24 18:27 10/10/24 01:59 Lorazepam 2 Mg/Ml Inj IV 1 mg Q2HR PRN Administration CIWA 8 or 9 Miscellaneous Information 1 each 10/07/24 08:28 Potassium Replacement Protocol 1 Each Misc MISCELLANE DAILY PRN Per Protocol Protocol Miscellaneous Information 1 each 10/07/24 10:23 Magnesium Replacement Protocol 1 Each Misc MISCELLANE DAILY PRN Per Protocol Protocol Naloxone HCl 0.2 mg 10/06/24 18:19 Naloxone 0.4 Mg/Ml 1 Ml Vial IV Q2M PRN Opioid Reversal Pantoprazole Sodium 40 mg 10/08/24 21:00 10/10/24 08:52 Pantoprazole 40 Mg/10 Ml Vial IVP 40 mg BID [facility] Administration Intake and Output 10/10/24 10/10/24 10/10/24 06:59 14:59 22:59 Intake Total 3169.511 4006.512 267.465 Output Total 520 645 85 Balance 1020.596 479.512 182.465 Intake: IV 184 738 246 0.9 kvo 184 138 46 Sodium Chloride 0.9% 1, 600 200 000 ml @ 100 mls/hr IV . Q10H [facility] Rx#:[id number] Intake, IV Titration 1326.596 386.512 21.465 Amount Norepinephrine 8 mg In 126.596 136.512 21.465 Sodium Chloride 0.9% 250 ml @ 0.14 MCG/KG/MIN 20. 236 mls/hr IV .[id number] [facility] Rx#:[id number] Potassium Chloride 20 meq 100 In Water For Injection 1 100ml.bag @ 50 mls/hr IVPB Q2H [facility] Rx#: [id number] Sodium Chloride 0.9% 1, 1200 150 000 ml @ 100 mls/hr IV . Q10H [facility] Rx#:[id number] Tube Feeding 30 Other 0 Output: Urine 520 645 85 Other: Voiding Method Indwelling Catheter Indwelling Catheter Weight 85.6 kg 85.6 kg Patient Weight 10/11/24 06:59 Weight 85.6 kg 10/10/24 04:37 10/10/24 04:37
[2024-10-10 16:41] LABS: Glucose,Whole Blood 187 mg/dL (70-110)
[2024-10-10] MEDS ORDERED: ETOMIDATE 2 MG/ML 10 ML VIAL ONE (19:20)
[2024-10-10] MEDS ORDERED: MIDAZOLAM 2 MG/2 ML VIAL ONE (19:20)
[2024-10-10] MEDS ORDERED: ROCURONIUM 10 MG/ML (5 ML VIAL) IV ONE (19:20)
[2024-10-10] MEDS ORDERED: fentaNYL (PF) 50 MCG/ML 2 ML AMP ONE (19:20)
[2024-10-10] MEDS: LACTATED RINGERS 1,000 ML IV ONE (19:30)
[2024-10-10] MEDS: GENTAMICIN 80 MG in SODIUM CHLORIDE 0.9% IRRIGATIO 3,000 ML IRRIGATION ONE (20:02)
[2024-10-10] MEDS: ceFAZolin 3,000 MG in SODIUM CHLORIDE 0.9% IRRIGATIO 3,000 ML IRRIGATION ONE (20:02)
[2024-10-10] MEDS: BUPIVACAINE (PF) 0.5% 30 ML VIAL INTRAARTIC ONE ×2 (20:27→20:43)
[2024-10-10 20:45] LABS: Synovial Fld Crystals CA Pyrophosphat (None Seen)
--- NOTE | 2024-10-10 21:11 | P.PN ---
Progress Note - Text Progress Note Date: 10/10/24 BRIEF POST OP: DX: 1. RIGHT KNEE SEPTIC ARTHRITIS 2. COMPLEX MEDICAL PATIENT PROCEDURE: RIGHT KNEE ARTHROSCOPIC LAVAGE COMPLICATION: NONE GETA EBL: 10 STABLE TO ICU POST OP: WBAT PAIN CONTROL PRN MGT PER ICU RECOMMEND CONTRASTED STUDY OF SPINE DUE TO SPINAL HX AND POSSIBILITY OF EPIDURAL ABSCESS WHEN ABLE.
[2024-10-10 21:27] LABS: ABG Base Excess -4.4 mmol/L; ABG HCO3 22 mmol/L (21-25); ABG Oxygen Saturation 97.4 % (94-97); ABG PCO2 46 mmHg (35-45); ABG PH 7.29 (7.35-7.45); ABG PO2 94 mmHg (83-108); ABG TCO2 24 mmol/L (19-24); Allen Test Performed? Yes
--- NOTE | 2024-10-10 21:36 | XR ---
EXAMINATION TYPE: XR chest 1V DATE OF EXAM: 10/10/2024 9:26 PM COMPARISON: 10/10/2024 CLINICAL INDICATION: Male, 64 years old with history of og tube placement, FINDINGS: Endotracheal tube is 6.3 cm from the marvel. NG tube is seen coursing into the stomach. Perihilar and basilar infiltrates could reflect acute pulmonary edema versus underlying pneumonia. Ri ght-sided pleural effusion seen. Stable appearance of the cardio-mediastinal structures at this time. IMPRESSION: Endotracheal tube is 6.3 cm from the marvel. NG tube is seen coursing into the stomach. Perihilar and basilar infiltrates could reflect acute pulmonary edema versus underlying pneumonia. Ri ght-sided pleural effusion seen. [facility], , 10/10/2024 9:33 PM
[2024-10-10 21:38] LABS: Glucose,Whole Blood 169 mg/dL (70-110)
[2024-10-10 21:51] LABS: HCT 28.8 % (39.0-53.0); HGB 9.3 gm/dL (13.0-17.5); Hypochromasia Slight; MCH 36.3 pg (25.0-35.0); MCHC 32.3 g/dL (31.0-37.0); MCV 112.3 fL (80.0-100.0); Macrocytosis Marked; Mean Platelet Volume 12.7; RBC 2.56 m/uL (4.30-5.90); WBC 18.2 k/uL (3.8-10.6)
[2024-10-10 21:56] LABS: Platelet Count 42 k/uL (150-450)
[2024-10-10 22:04] LABS: African American GFR (CKD) 82 (>60 ml/min/1.73 sqM); Anion Gap 8 mmol/L; Blood Urea Nitrogen 34 mg/dL (9-20); Calcium 6.7 mg/dL (8.4-10.2); Carbon Dioxide 20 mmol/L (22-30); Chloride 112 mmol/L (98-107); Glucose 166 mg/dL (74-99); Magnesium 1.6 mg/dL (1.6-2.3); Non-African American GFR(CKD) 71 (>60 ml/min/1.73 sqM); Potassium 4.1 mmol/L (3.5-5.1); Sodium 140 mmol/L (137-145)
[2024-10-10 23:34] LABS: Glucose,Whole Blood 215 mg/dL (70-110)
--- NOTE | 2024-10-11 01:31 | PN ---
PROGRESS NOTE DATE OF SERVICE: 10/09/2024 SUBJECTIVE: This is a 64-year-old gentleman admitted with sepsis and severe hypotension, had significant right pyogenic arthritis also. The aspiration showed purulent fluid at this time. The patient is being planned to have debridement also. As mentioned, the culture showed group A strep from the blood culture. The most recent records are negative. PAST MEDICAL HISTORY: Reviewed. REVIEW OF SYSTEMS: Could not be taken. CURRENT MEDICATIONS: Reviewed. PHYSICAL EXAMINATION: VITAL SIGNS: Pulse 93, blood pressure 100/40, respirations 13. HEENT: Conjunctivae normal. NECK: No JVD. CARDIOVASCULAR: S1, S2. RESPIRATIONS: Breath sounds diminished at the bases. Scattered rhonchi. ABDOMEN: Soft. LEGS: Bilateral leg swelling and cellulitis. No focal deficits. LABORATORY DATA: WBC 16.4, rest of the labs are noted. Creatine kinase 93. ASSESSMENT: 1. Strep pyogenes group A sepsis, possibly from right knee pyogenic arthritis with severe sepsis, septic shock, and hypotension. 2. Change in mental status, acute metabolic encephalopathy multifactorial. 3. Acute rhabdomyolysis, acute renal failure, acute tubular necrosis secondary to rhabdomyolysis. 4. Acute delirium tremens. 5. History of EtOH. 6. Second digit proximal phalanx possibly small avulsion fracture on the left. 7. Left foot cellulitis. 8. Coronary artery disease. 9. Diabetes mellitus, type 2. 10.Hypertension. 11.Hyperlipidemia. 12.Multiple complex medical issues. RECOMMENDATIONS AND DISCUSSION: I recommend to continue current management and continue symptomatic treatment. Otherwise, at this time, I recommend continue the antibiotics. Operative procedure per Surgery if needed under anesthesia. Otherwise, guarded prognosis because of multiple complex medical issues. Further recommendations to follow. See orders for further details. MMODL / IJN: [id number] /
[2024-10-11 04:14] LABS: Glucose,Whole Blood 202 mg/dL (70-110)
[2024-10-11 05:04] LABS: HCT 27.6 % (39.0-53.0); HGB 8.8 gm/dL (13.0-17.5); Hypochromasia Slight; MCH 35.7 pg (25.0-35.0); MCHC 31.8 g/dL (31.0-37.0); MCV 112.2 fL (80.0-100.0); Macrocytosis Marked; Mean Platelet Volume 11.8; RBC 2.46 m/uL (4.30-5.90); WBC 18.1 k/uL (3.8-10.6)
[2024-10-11 05:19] LABS: Platelet Count 52 k/uL (150-450)
[2024-10-11 05:30] LABS: African American GFR (CKD) 85 (>60 ml/min/1.73 sqM); Anion Gap 8 mmol/L; Blood Urea Nitrogen 35 mg/dL (9-20); Calcium 6.5 mg/dL (8.4-10.2); Carbon Dioxide 17 mmol/L (22-30); Chloride 115 mmol/L (98-107); Creatine Kinase 215 U/L (55-170); Glucose 191 mg/dL (74-99); Magnesium 1.6 mg/dL (1.6-2.3); Non-African American GFR(CKD) 73 (>60 ml/min/1.73 sqM); Potassium 3.9 mmol/L (3.5-5.1); Sodium 140 mmol/L (137-145)
[2024-10-11] MEDS: MAGNESIUM SULFATE-D5W PMX 1 GM in DEXTROSE/WATER 1 100ML.BAG IVPB SCH (05:48)
[2024-10-11 06:08] LABS: ABG Base Excess -5.5 mmol/L; ABG HCO3 20 mmol/L (21-25); ABG Oxygen Saturation 98.2 % (94-97); ABG PCO2 37 mmHg (35-45); ABG PH 7.34 (7.35-7.45); ABG PO2 95 mmHg (83-108); ABG TCO2 21 mmol/L (19-24); Allen Test Performed? Yes
[2024-10-11] MEDS: POTASSIUM BICARBONATE/CIT AC 20 MEQ TABLET.EFF NG-TUBE SCH (06:13)
--- NOTE | 2024-10-11 08:20 | XR ---
EXAMINATION TYPE: XR chest 1V portable DATE OF EXAM: 10/11/2024 5:33 AM COMPARISON: Chest radiograph from one day prior. CLINICAL INDICATION: Male, 64 years old with history of vent; TECHNIQUE: XR chest 1V portable Frontal view of the chest. FINDINGS: Lungs/Pleura: Similar multifocal airspace opacities. No evidence of pneumothorax or pleural effusion. Pulmonary vascularity: Unremarkable. Heart/mediastinum: Cardiomediastinal silhouette is unremarkable. Musculoskeletal: No acute osseous pathology. There is fixation hardware in the lower cervical spine. Other findings: None Lines/Tubes: Endotracheal tube with distal tip 5.1 cm above the marvel. Nasogastric tube with its distal tip and side-port projecting under the diaphragm. IMPRESSION: 1. Similar multifocal airspace opacities. 2. Stable support tubes. [facility], , 10/11/2024 8:18 AM
[2024-10-11] MEDS: CALCIUM GLUCONATE IN NACL 2 GM in SALINE 1 100ML.BAG IVPB ONE (10:13)
[2024-10-11] MEDS: FUROSEMIDE 10 MG/ML 2 ML VIAL IV ONE (10:17)
[2024-10-11] MEDS: SODIUM BICARB 8.4% 50 ML SYR (1 MEQ/ML) IV STA (10:17)
--- NOTE | 2024-10-11 10:19 | P.PN ---
Subjective Patient is seen in follow-up for acute kidney injury. Renal function improving. Currently on Levophed and vasopressin. Nonoliguric. Off amiodarone drip. Vital signs are stable. On vasopressor support. General: No acute distress. HEENT: Head exam is unremarkable. LUNGS: No audible rhonchi or wheezes. HEART: Rate and Rhythm are regular. ABDOMEN: No distention. EXTREMITITES: 1+ edema. Scrotal edema noted. Objective - Vital Signs Vital signs: Vital Signs Temp 98.3 F 10/11/24 08:00 Pulse 78 10/11/24 10:00 Resp 23 10/11/24 10:00 BP 120/63 10/11/24 00:15 Pulse Ox 96 10/11/24 10:00 FiO2 50 10/11/24 10:11 Intake & Output 10/10/24 10/11/24 10/11/24 18:59 06:59 18:59 Intake Total 0582.929 7199.725 492 Output Total 795 433 280 Balance 566.081 3002.725 212 Weight 85.6 kg 92 kg Intake: IV 1230 7855 492 0.9 kvo 230 253 92 Sodium Chloride 0.9% 1, 1000 1100 400 000 ml @ 20 mls/hr IV . Q24H PITO Rx#:[id number] Intake, IV Titration 463.266 430.725 Amount Amiodarone 450 mg In 248.061 Dextrose 5% in Water 250 ml @ 0.5 MG/MIN 16.667 mls/hr IV .Q15H PITO Rx#: [id number] Norepinephrine 8 mg In 213.266 182.450 Sodium Chloride 0.9% 250 ml @ 0.14 MCG/KG/MIN 20. 236 mls/hr IV .[id number] PITO Rx#:[id number] Potassium Chloride 20 meq 100 In Water For Injection 1 100ml.bag @ 50 mls/hr IVPB Q2H PITO Rx#: [id number] Sodium Chloride 0.9% 1, 150 000 ml @ 20 mls/hr IV . Q24H PIOT Rx#:[id number] propofoL 1,000 mg In 0.214 Empty Bag 1 bag @ 15 MCG/ KG/MIN 7.704 mls/hr IV . [id number] PITO Rx#:[id number] Output: Urine 795 430 280 Estimated Blood Loss 3 Other: Voiding Method Indwelling Catheter Indwelling Catheter Indwelling Catheter ABP, PAP, CO, CI - Last Documented Arterial Blood Pressure 148/55 - Labs CBC & Chem 7: 10/11/24 04:40 10/11/24 04:40 Labs: Abnormal Lab Results - Last 24 Hours (Table) 10/10/24 10/10/24 10/10/24 Range/Units 12:04 12:39 12:41 WBC (3.8-10.6) k/uL RBC (4.30-5.90) m/uL Hgb (13.0-17.5) gm/dL Hct (39.0-53.0) % MCV (80.0-100.0) fL MCH (25.0-35.0) pg Plt Count (150-450) k/uL Macrocytosis ABG pH (7.35-7.45) ABG pCO2 (35-45) mmHg ABG HCO3 (21-25) mmol/L ABG O2 Saturation (94-97) % Hemoglobin (13.0-17.5) gm/dL Chloride (98-107) mmol/L Carbon Dioxide (22-30) mmol/L BUN (9-20) mg/dL Glucose (74-99) mg/dL POC Glucose (mg/dL) 226 H 191 H (70-110) mg/dL Calcium (8.4-10.2) mg/dL Creatine Kinase (55-170) U/L Synovial Crystals CA Pyrophosphat A (None Seen) 10/10/24 10/10/24 10/10/24 Range/Units 16:40 21:22 21:28 WBC 18.2 H (3.8-10.6) k/uL RBC 2.56 L (4.30-5.90) m/uL Hgb 9.3 L (13.0-17.5) gm/dL Hct 28.8 L (39.0-53.0) % MCV 112.3 H (80.0-100.0) fL MCH 36.3 H (25.0-35.0) pg Plt Count 42 L (150-450) k/uL Macrocytosis Marked A ABG pH 7.29 L (7.35-7.45) ABG pCO2 46 H (35-45) mmHg ABG HCO3 (21-25) mmol/L ABG O2 Saturation 97.4 H (94-97) % Hemoglobin 9.6 L (13.0-17.5) gm/dL Chloride (98-107) mmol/L Carbon Dioxide (22-30) mmol/L BUN (9-20) mg/dL Glucose (74-99) mg/dL POC Glucose (mg/dL) 187 H (70-110) mg/dL Calcium (8.4-10.2) mg/dL Creatine Kinase (55-170) U/L Synovial Crystals (None Seen) 10/10/24 10/10/24 10/10/24 Range/Units 21:28 21:36 23:33 WBC (3.8-10.6) k/uL RBC (4.30-5.90) m/uL Hgb (13.0-17.5) gm/dL Hct (39.0-53.0) % MCV (80.0-100.0) fL MCH (25.0-35.0) pg Plt Count (150-450) k/uL Macrocytosis ABG pH (7.35-7.45) ABG pCO2 (35-45) mmHg ABG HCO3 (21-25) mmol/L ABG O2 Saturation (94-97) % Hemoglobin (13.0-17.5) gm/dL Chloride 112 H (98-107) mmol/L Carbon Dioxide 20 L (22-30) mmol/L BUN 34 H (9-20) mg/dL Glucose 166 H (74-99) mg/dL POC Glucose (mg/dL) 169 H 215 H (70-110) mg/dL Calcium 6.7 L (8.4-10.2) mg/dL Creatine Kinase (55-170) U/L Synovial Crystals (None Seen) 10/11/24 10/11/24 10/11/24 Range/Units 04:13 04:40 04:40 WBC 18.1 H (3.8-10.6) k/uL RBC 2.46 L (4.30-5.90) m/uL Hgb 8.8 L (13.0-17.5) gm/dL Hct 27.6 L (39.0-53.0) % MCV 112.2 H (80.0-100.0) fL MCH 35.7 H (25.0-35.0) pg Plt Count 52 L (150-450) k/uL Macrocytosis Marked A ABG pH (7.35-7.45) ABG pCO2 (35-45) mmHg ABG HCO3 (21-25) mmol/L ABG O2 Saturation (94-97) % Hemoglobin (13.0-17.5) gm/dL Chloride 115 H (98-107) mmol/L Carbon Dioxide 17 L (22-30) mmol/L BUN 35 H (9-20) mg/dL Glucose 191 H (74-99) mg/dL POC Glucose (mg/dL) 202 H (70-110) mg/dL Calcium 6.5 L (8.4-10.2) mg/dL Creatine Kinase 215 H (55-170) U/L Synovial Crystals (None Seen) 10/11/24 Range/Units 05:59 WBC (3.8-10.6) k/uL RBC (4.30-5.90) m/uL Hgb (13.0-17.5) gm/dL Hct (39.0-53.0) % MCV (80.0-100.0) fL MCH (25.0-35.0) pg Plt Count (150-450) k/uL Macrocytosis ABG pH 7.34 L (7.35-7.45) ABG pCO2 (35-45) mmHg ABG HCO3 20 L (21-25) mmol/L ABG O2 Saturation 98.2 H (94-97) % Hemoglobin (13.0-17.5) gm/dL Chloride (98-107) mmol/L Carbon Dioxide (22-30) mmol/L BUN (9-20) mg/dL Glucose (74-99) mg/dL POC Glucose (mg/dL) (70-110) mg/dL Calcium (8.4-10.2) mg/dL Creatine Kinase (55-170) U/L Synovial Crystals (None Seen) Microbiology - Last 24 Hours (Table) 10/07/24 16:26 Blood Culture - Preliminary Blood 10/09/24 05:12 Blood Culture - Preliminary Blood 10/08/24 06:16 Blood Culture - Preliminary Blood Assessment and Plan Plan: Assessment: 1. Acute kidney injury secondary to ATN secondary to septic shock and rhabdomyolysis. Creatinine 3.18 on admission and is improved to 1.08. Baseline creatinine near 1. No hydronephrosis noted on kidney ultrasound. 2. Rhabdomyolysis secondary to immobility. CK levels trending down. 3. Strep bacteremia on antibiotics. 4. Anion gap metabolic acidosis secondary to acute kidney injury and lactic acidosis. Now due to IV fluids. Status post bicarb drip. 5. Hyponatremia secondary to hypovolemia as well as acute kidney injury. Better. 6. Hypomagnesemia from poor intake and alcohol abuse. Replaced. 7. History of alcohol abuse. 8. Hypocalcemia secondary to acute kidney injury as well as intracellular shifting from bicarb. Replaced. 9. Hypokalemia from poor intake. Replaced. Better. 10. A-fib with RVR status post amiodarone drip. 11. Volume overload. Plan: Hep-Lock IV fluids. 2 amp sodium bicarb IV push today. Lasix 20 mg IV once today. Replace electrolytes as needed. Repeat labs in the morning. Avoid nephrotoxins. Continue to monitor renal function and urine output. Wean vasopressors.
--- NOTE | 2024-10-11 10:59 | P.PN ---
Subjective Progress Note Date: 10/11/24 Patient is a 64-year-old male who is being seen in the ICU due to hypovolemic shock and rhabdomyolysis. He is a poor historian due to altered mental status and unresponsiveness. All history is obtained from the chart. He initially presented to the emergency department after being found facedown on the ground with a contusion to his forehead and abrasions to his knee and left toes. She stated that he had been having nausea and vomiting for a day prior to being found down. He was noted to have diarrhea as well. Patient is a daily drinker and consumes about a fifth per day according to the notes he has not drank for the 2 days prior to this admission. He also has a history of type 1 diabetes m socrates. Initial EKG showed sinus tachycardia. Head/cervical spine CT showed no acute intracranial process and no acute fracture or traumatic subluxation of the cervical spine. Initial chest x-ray showed right middle lobe scarring/atelectasis, no acute pulmonary process. He had received 4 L of normal saline. Initial labs showed CK level of 18,113, WBCs 10.7, hemoglobin 12.5, sodium 126, creatinine 3.18 lactic acid 6.9, AST 401, ALT 65. Preliminary blood culture showed gram-positive cocci and patient was started on vancomycin. 10/07/2024. He is maintained on a bicarb drip as well as normal saline. He remains unresponsive to verbal stimulation. He is maintained on CIWA protocol. Labs today: WBCs 5.1, hemoglobin 11.6, sodium 126, potassium 3.8, BUN 53, creatinine 3.12, ammonia <9. 10/08/2024. 64-year-old male seen in room 252. I was notified by the nurse at nighttime, that the patient's blood pressure continued to drop. We bumped up his dose of norepinephrine, and gave him a liter of fluid. In addition, his respiratory status was marginal, and the blood gas was ordered. The patient is currently on 6 L of oxygen. The patient was admitted on October 06. He is getting saline at 150 cc an hour, and Precedex at 0.4 mcg/kg/h. His norepinephrine is running at 31 mcg/min. There is staphylococci in his blood. I have asked the nurses to add Ativan Dilaudid and Haldol to his regimen, to try to wean him off the dexmedetomidine. White count of 9.1, hemoglobin hematocrit 29, platelet count 88,000. Sodium 131, potassium 3, chloride 92, CO2 32, BUN 50, creatinine 2.34. Glucose is 167. Calcium is 6.3. CK was 8796. AST is 507. ALT is 136. Albumin is 2.2. Blood cultures from the were positive for Streptococcus group A. Chest x-ray shows bilateral effusions, small, with low lung volumes. 10/09/2024. Patient seen as a followup. No acute events overnight. He is currently on 6 L of oxygen. He was on dextrose 5% - 0.9% NaCl, blood sugars have been in the mid to high 200s. He is receiving Kefzol for streptococcal group A bacteremia. Precedex has been turned off. Levophed is 0.3 mcg/kg/min. WBCs 12.3, hemoglobin 9.7, hematocrit 27.7, platelets 48. Sodium 133, potassium 3.7, chloride 105, CO2 19, BUN 42, creatinine 1.62. Glucose 267. Calcium 6.4. CK 3888. AST 323, ALT 78. Albumin 2.2. Today's chest x-ray showed cardiomegaly, pulmonary vascular congestion, and bilateral pleural effusions. 10/10/2024. Patient is being seen as a followup in the ICU. Overnight he went into A-fib with rapid ventricular rate, was started on an amiodarone drip at 1mg/min, and converted back to normal sinus rhythm. His pressures remain in the 100s/40s and pulses are He is currently on 15 L high flow oxygen. He is on normal saline at 150 cc/h. He is maintained on Kefzol for streptococcal group A bactermia, today is day 3. Levophed is at 0.11 mcg/kg/min, vasopressin at 0.02 mcg/kg/min. WBCs 16.4, hemoglobin 9.8, hematocrit 29.6, platelets 38. Sodium 138, potassium 3.5, chloride 112, CO2 23, BUN 35, creatinine 1.26, glucose 164. Ionized calcium 4.1. CK 988. AST 154, ALT 36. Cortisol 32. TSH 4.3830. In addition, he removed his NG tube overnight. Today's chest x-ray is unchanged from previous. He remains lethargic and barely responsive to verbal stimulation. 10/11/2024. Patient is seen in the ICU. He underwent arthroscopic lavage of the right knee yesterday evening and returned to the ICU intubated on mechanical ventilation. He is currently on assist-control mode with rate 18, tidal volume 450, FiO2 70%, PEEP 5. ABG shows pH 7.34, pCO2 37, pO2 95. He is maintained on vasopressin 0.02 units/min, Levophed 0.14 mcg/kg/min, normal saline at 100 cc/h, and Kefzol day 4. WBCs 18.1, hemoglobin 8.8, hematocrit 27.6, platelets 52, sodium 140, potassium 3.9, chloride 115, CO2 17, BUN 35, creatinine 1.08, glucose 191, creatinine kinase 215. Calcium 6.5. Magnesium 1.6. He began IV hydrocortisone 50 mg every 6 hours yesterday. Liver ultrasound performed yesterday revealed no acute process. Chest x-ray today is unchanged from previous. Objective - Vital Signs Vital signs: Vital Signs Temp 97.8 F 10/11/24 04:00 Pulse 64 10/11/24 07:00 Resp 19 10/11/24 07:00 BP 120/63 10/11/24 00:15 Pulse Ox 100 10/11/24 07:00 FiO2 70 10/11/24 05:15 Intake & Output 10/10/24 10/11/24 10/11/24 18:59 06:59 18:59 Intake Total 4918.567 2791.725 123 Output Total 795 433 30 Balance 869.672 2904.725 93 Weight 85.6 kg 92 kg Intake: IV 1230 7855 123 0.9 kvo 230 253 23 Sodium Chloride 0.9% 1, 1000 1100 100 000 ml @ 100 mls/hr IV . Q10H P[facility]O Rx#:[id number] Intake, IV Titration 463.266 430.725 Amount Amiodarone 450 mg In 248.061 Dextrose 5% in Water 250 ml @ 0.5 MG/MIN 16.667 mls/hr IV .Q15H P[facility]O Rx#: [id number] Norepinephrine 8 mg In 213.266 182.450 Sodium Chloride 0.9% 250 ml @ 0.14 MCG/KG/MIN 20. 236 mls/hr IV .[id number] PITO Rx#:[id number] Potassium Chloride 20 meq 100 In Water For Injection 1 100ml.bag @ 50 mls/hr IVPB Q2H PITO Rx#: [id number] Sodium Chloride 0.9% 1, 150 000 ml @ 100 mls/hr IV . Q10H PITO Rx#:[id number] propofoL 1,000 mg In 0.214 Empty Bag 1 bag @ 15 MCG/ KG/MIN 7.704 mls/hr IV . [id number] PITO Rx#:[id number] Output: Urine 795 430 30 Estimated Blood Loss 3 Other: Voiding Method Indwelling Catheter Indwelling Catheter ABP, PAP, CO, CI - Last Documented Arterial Blood Pressure 112/46 - Exam Vital signs are stable. General: Intubated and sedated. Right radial arterial line present. HEENT: Head exam is unremarkable. EOMI bilaterally. ACs patent. Nares patent. Lungs: Mechanical bilateral breath sounds present; no rhonchi, wheezes, or rales. Heart: Rate and rhythm are regular. S1-S2 present. No murmur/rub/gallops. Abdomen: Soft, nontender, nondistended. Bowel sounds present. Extremities: 1+ edema present in all extremities. Neuro: Unable to assess due to intubation/sedation. - Labs CBC & Chem 7: 10/11/24 04:40 10/11/24 04:40 Labs: Abnormal Lab Results - Last 24 Hours (Table) 10/10/24 10/10/24 10/10/24 Range/Units 08:18 12:04 12:39 WBC (3.8-10.6) k/uL RBC (4.30-5.90) m/uL Hgb (13.0-17.5) gm/dL Hct (39.0-53.0) % MCV (80.0-100.0) fL MCH (25.0-35.0) pg Plt Count (150-450) k/uL Macrocytosis ABG pH (7.35-7.45) ABG pCO2 (35-45) mmHg ABG HCO3 (21-25) mmol/L ABG O2 Saturation (94-97) % Hemoglobin (13.0-17.5) gm/dL Chloride (98-107) mmol/L Carbon Dioxide (22-30) mmol/L BUN (9-20) mg/dL Glucose (74-99) mg/dL POC Glucose (mg/dL) 168 H 226 H (70-110) mg/dL Calcium (8.4-10.2) mg/dL Creatine Kinase (55-170) U/L Synovial Crystals CA Pyrophosphat A (None Seen) 10/10/24 10/10/24 10/10/24 Range/Units 12:41 16:40 21:22 WBC (3.8-10.6) k/uL RBC (4.30-5.90) m/uL Hgb (13.0-17.5) gm/dL Hct (39.0-53.0) % MCV (80.0-100.0) fL MCH (25.0-35.0) pg Plt Count (150-450) k/uL Macrocytosis ABG pH 7.29 L (7.35-7.45) ABG pCO2 46 H (35-45) mmHg ABG HCO3 (21-25) mmol/L ABG O2 Saturation 97.4 H (94-97) % Hemoglobin 9.6 L (13.0-17.5) gm/dL Chloride (98-107) mmol/L Carbon Dioxide (22-30) mmol/L BUN (9-20) mg/dL Glucose (74-99) mg/dL POC Glucose (mg/dL) 191 H 187 H (70-110) mg/dL Calcium (8.4-10.2) mg/dL Creatine Kinase (55-170) U/L Synovial Crystals (None Seen) 10/10/24 10/10/24 10/10/24 Range/Units 21:28 21:28 21:36 WBC 18.2 H (3.8-10.6) k/uL RBC 2.56 L (4.30-5.90) m/uL Hgb 9.3 L (13.0-17.5) gm/dL Hct 28.8 L (39.0-53.0) % MCV 112.3 H (80.0-100.0) fL MCH 36.3 H (25.0-35.0) pg Plt Count 42 L (150-450) k/uL Macrocytosis Marked A ABG pH (7.35-7.45) ABG pCO2 (35-45) mmHg ABG HCO3 (21-25) mmol/L ABG O2 Saturation (94-97) % Hemoglobin (13.0-17.5) gm/dL Chloride 112 H (98-107) mmol/L Carbon Dioxide 20 L (22-30) mmol/L BUN 34 H (9-20) mg/dL Glucose 166 H (74-99) mg/dL POC Glucose (mg/dL) 169 H (70-110) mg/dL Calcium 6.7 L (8.4-10.2) mg/dL Creatine Kinase (55-170) U/L Synovial Crystals (None Seen) 10/10/24 10/11/24 10/11/24 Range/Units 23:33 04:13 04:40 WBC (3.8-10.6) k/uL RBC (4.30-5.90) m/uL Hgb (13.0-17.5) gm/dL Hct (39.0-53.0) % MCV (80.0-100.0) fL MCH (25.0-35.0) pg Plt Count (150-450) k/uL Macrocytosis ABG pH (7.35-7.45) ABG pCO2 (35-45) mmHg ABG HCO3 (21-25) mmol/L ABG O2 Saturation (94-97) % Hemoglobin (13.0-17.5) gm/dL Chloride 115 H (98-107) mmol/L Carbon Dioxide 17 L (22-30) mmol/L BUN 35 H (9-20) mg/dL Glucose 191 H (74-99) mg/dL POC Glucose (mg/dL) 215 H 202 H (70-110) mg/dL Calcium 6.5 L (8.4-10.2) mg/dL Creatine Kinase 215 H (55-170) U/L Synovial Crystals (None Seen) 10/11/24 10/11/24 Range/Units 04:40 05:59 WBC 18.1 H (3.8-10.6) k/uL RBC 2.46 L (4.30-5.90) m/uL Hgb 8.8 L (13.0-17.5) gm/dL Hct 27.6 L (39.0-53.0) % MCV 112.2 H (80.0-100.0) fL MCH 35.7 H (25.0-35.0) pg Plt Count 52 L (150-450) k/uL Macrocytosis Marked A ABG pH 7.34 L (7.35-7.45) ABG pCO2 (35-45) mmHg ABG HCO3 20 L (21-25) mmol/L ABG O2 Saturation 98.2 H (94-97) % Hemoglobin (13.0-17.5) gm/dL Chloride (98-107) mmol/L Carbon Dioxide (22-30) mmol/L BUN (9-20) mg/dL Glucose (74-99) mg/dL POC Glucose (mg/dL) (70-110) mg/dL Calcium (8.4-10.2) mg/dL Creatine Kinase (55-170) U/L Synovial Crystals (None Seen) Microbiology - Last 24 Hours (Table) 10/07/24 16:26 Blood Culture - Preliminary Blood 10/09/24 05:12 Blood Culture - Preliminary Blood 10/08/24 06:16 Blood Culture - Preliminary Blood Assessment and Plan Assessment: Chronic alcohol abuse with acute alcohol withdrawal syndrome. Rhabdomyolysis secondary to immobility due to fall. Improving. Acute kidney injury secondary to ATN due to to septic shock and rhabdomyolysis. Improving. Relative adrenal insufficiency. On IV hydrocortisone. Non-anion gap metabolic acidosis. Transaminitis. Improving. Streptococcus group A bacteremia. Currently on cefazolin. Lactic acidosis. Resolved. Hyponatremia, likely hypovolemic. Hypoalbuminemia. Hypocalcemia. Type 1 diabetes mellitus. History of coronary artery disease with previous catheterization and stent placement. History of GERD. Hyperlipidemia. Hypertension. History of myocardial infarction. History of osteoarthritis. Plan: Continue IV hydrocortisone succinate 50 mg every 6 hours. Continue IV cefazolin. Attempt to wean patient off sedation and mechanical ventilation with possible extubation. Give IV calcium gluconate 2 g. Monitor blood sugars. Continue CIWA protocol. Monitor hemodynamics. GI prophylaxis with IV Protonix. DVT prophylaxis with SCDs. Labs, x-rays, and medications were reviewed.
[2024-10-11 11:49] LABS: Glucose,Whole Blood 232 mg/dL (70-110)
[2024-10-11] MEDS: IPRATROPIUM-ALBUTEROL 3 ML NEB INHALATION PRN (11:55)
--- NOTE | 2024-10-11 14:43 | P.PN ---
Subjective Progress Note Date: 10/11/24 Principal diagnosis: Reason for follow-up is Streptococcus agalactiae bacteremia Patient is a 64-year-old male past medical his significant for diabetes mellitus hypertension hyperlipidemia MT osteoarthritis coronary disease patient was brought into the hospital after apparently the patient was found to be facedown on the ground with contusion to his forehead and abrasion to his knee and some bloody toes, patient did have a fever subsequently blood cultures came back positive with Streptococcus agalactiae prompting this consultation. On today's evaluation that is 10/11/2024,the patient was taken to the OR for washout of the right knee subsequently has been brought into the ICU on the ventilator patient is currently on the vent FiO2 is 50% no significant purulent secretion through the ET or any other changes reported by the nursing staff. Patient white count is 18.1 creatinine 1.08 blood culture repeat currently pending or culture from the right knee currently pending Objective - Vital Signs Vital signs: Vital Signs Temp 98.3 F 10/11/24 12:00 Pulse 62 10/11/24 14:00 Resp 18 10/11/24 14:00 BP 101/60 10/11/24 13:45 Pulse Ox 98 10/11/24 14:00 FiO2 50 10/11/24 14:00 Intake & Output 10/10/24 10/11/24 10/11/24 18:59 06:59 18:59 Intake Total 4025.133 8258.725 900.493 Output Total 795 433 880 Balance 728.412 8662.725 20.493 Weight 85.6 kg 92 kg 92 kg Intake: IV 1230 7855 784 0.9 kvo 230 253 184 Calcium Gluconate in NaCl 100 2 gm In Saline 1 100ml. bag @ 100 mls/hr IVPB ONCE ONE Rx#:[id number] Sodium Chloride 0.9% 1, 1000 1100 450 000 ml @ 20 mls/hr IV . Q24H [facility] Rx#:[id number] ceFAZolin 2 gm In Sodium 50 Chloride 0.9% 50 ml @ 100 mls/hr IVPB Q8HR [facility] Rx# :[id number] Intake, IV Titration 463.266 430.725 26.493 Amount Amiodarone 450 mg In 248.061 Dextrose 5% in Water 250 ml @ 0.5 MG/MIN 16.667 mls/hr IV .Q15H [facility] Rx#: [id number] Norepinephrine 8 mg In 213.266 182.450 Sodium Chloride 0.9% 250 ml @ 0.14 MCG/KG/MIN 20. 236 mls/hr IV .[id number] [facility] Rx#:[id number] Potassium Chloride 20 meq 100 In Water For Injection 1 100ml.bag @ 50 mls/hr IVPB Q2H [facility] Rx#: [id number] Sodium Chloride 0.9% 1, 150 000 ml @ 20 mls/hr IV . Q24H [facility] Rx#:[id number] propofoL 1,000 mg In 0.214 26.493 Empty Bag 1 bag @ 15 MCG/ KG/MIN 7.704 mls/hr IV . [id number] [facility] Rx#:[id number] Tube Feeding 60 Other 30 Output: Urine 795 430 880 Estimated Blood Loss 3 Other: Voiding Method Indwelling Catheter Indwelling Catheter Indwelling Catheter ABP, PAP, CO, CI - Last Documented Arterial Blood Pressure 111/45 - Exam GENERAL DESCRIPTION: Middle-age male intubated on the vent RESPIRATORY SYSTEM: Unlabored breathing , decreased breath sounds at bases HEART: S1 S2 regular rate and rhythm , ABDOMEN: Soft , no tenderness EXTREMITIES: Right leg is currently dressed - Labs CBC & Chem 7: 10/11/24 04:40 10/11/24 04:40 Labs: Abnormal Lab Results - Last 24 Hours (Table) 10/10/24 10/10/24 10/10/24 Range/Units 12:04 16:40 21:22 WBC (3.8-10.6) k/uL RBC (4.30-5.90) m/uL Hgb (13.0-17.5) gm/dL Hct (39.0-53.0) % MCV (80.0-100.0) fL MCH (25.0-35.0) pg Plt Count (150-450) k/uL Macrocytosis ABG pH 7.29 L (7.35-7.45) ABG pCO2 46 H (35-45) mmHg ABG HCO3 (21-25) mmol/L ABG O2 Saturation 97.4 H (94-97) % Hemoglobin 9.6 L (13.0-17.5) gm/dL Chloride (98-107) mmol/L Carbon Dioxide (22-30) mmol/L BUN (9-20) mg/dL Glucose (74-99) mg/dL POC Glucose (mg/dL) 187 H (70-110) mg/dL Calcium (8.4-10.2) mg/dL Creatine Kinase (55-170) U/L Synovial Crystals CA Pyrophosphat A (None Seen) 10/10/24 10/10/24 10/10/24 Range/Units 21:28 21:28 21:36 WBC 18.2 H (3.8-10.6) k/uL RBC 2.56 L (4.30-5.90) m/uL Hgb 9.3 L (13.0-17.5) gm/dL Hct 28.8 L (39.0-53.0) % MCV 112.3 H (80.0-100.0) fL MCH 36.3 H (25.0-35.0) pg Plt Count 42 L (150-450) k/uL Macrocytosis Marked A ABG pH (7.35-7.45) ABG pCO2 (35-45) mmHg ABG HCO3 (21-25) mmol/L ABG O2 Saturation (94-97) % Hemoglobin (13.0-17.5) gm/dL Chloride 112 H (98-107) mmol/L Carbon Dioxide 20 L (22-30) mmol/L BUN 34 H (9-20) mg/dL Glucose 166 H (74-99) mg/dL POC Glucose (mg/dL) 169 H (70-110) mg/dL Calcium 6.7 L (8.4-10.2) mg/dL Creatine Kinase (55-170) U/L Synovial Crystals (None Seen) 10/10/24 10/11/24 10/11/24 Range/Units 23:33 04:13 04:40 WBC (3.8-10.6) k/uL RBC (4.30-5.90) m/uL Hgb (13.0-17.5) gm/dL Hct (39.0-53.0) % MCV (80.0-100.0) fL MCH (25.0-35.0) pg Plt Count (150-450) k/uL Macrocytosis ABG pH (7.35-7.45) ABG pCO2 (35-45) mmHg ABG HCO3 (21-25) mmol/L ABG O2 Saturation (94-97) % Hemoglobin (13.0-17.5) gm/dL Chloride 115 H (98-107) mmol/L Carbon Dioxide 17 L (22-30) mmol/L BUN 35 H (9-20) mg/dL Glucose 191 H (74-99) mg/dL POC Glucose (mg/dL) 215 H 202 H (70-110) mg/dL Calcium 6.5 L (8.4-10.2) mg/dL Creatine Kinase 215 H (55-170) U/L Synovial Crystals (None Seen) 10/11/24 10/11/24 10/11/24 Range/Units 04:40 05:59 11:48 WBC 18.1 H (3.8-10.6) k/uL RBC 2.46 L (4.30-5.90) m/uL Hgb 8.8 L (13.0-17.5) gm/dL Hct 27.6 L (39.0-53.0) % MCV 112.2 H (80.0-100.0) fL MCH 35.7 H (25.0-35.0) pg Plt Count 52 L (150-450) k/uL Macrocytosis Marked A ABG pH 7.34 L (7.35-7.45) ABG pCO2 (35-45) mmHg ABG HCO3 20 L (21-25) mmol/L ABG O2 Saturation 98.2 H (94-97) % Hemoglobin (13.0-17.5) gm/dL Chloride (98-107) mmol/L Carbon Dioxide (22-30) mmol/L BUN (9-20) mg/dL Glucose (74-99) mg/dL POC Glucose (mg/dL) 232 H (70-110) mg/dL Calcium (8.4-10.2) mg/dL Creatine Kinase (55-170) U/L Synovial Crystals (None Seen) Microbiology - Last 24 Hours (Table) 10/09/24 05:12 Blood Culture - Preliminary Blood 10/08/24 06:16 Blood Culture - Preliminary Blood 10/07/24 16:26 Blood Culture - Preliminary Blood Assessment and Plan (1) Sepsis Current Visit: Yes Status: Acute Code(s): A41.9 - SEPSIS, UNSPECIFIED ORGANISM SNOMED Code(s): 85689167 (2) Streptococcal bacteremia Current Visit: Yes Status: Acute Code(s): R78.81 - BACTEREMIA; B95.5 - UNSP STREPTOCOCCUS THE CAUSE OF DISEASES CLASSD ELSWHR SNOMED Code(s): 389492433607 Plan: 1patient presented to the hospital with sepsis in this patient who did have fever tachycardia elevated white count and now with evidence of streptococcal bacteremia which is usually of skin and soft tissue origin 2-patient noticed to have right knee effusion has been evaluated by orthopedics and is status post aspiration with purulent drainage subsequently did have right knee washout by orthopedic cultures are pending may need further workup including MRI of the spine when stable discussed with the 3we will continue with the cefazolin and monitor clinical course closely at the bedside questions were answered Dictation was produced using [employer] dictation software. please excuse any grammatical, word or spelling errors. Time with Patient: Less than 30
--- NOTE | 2024-10-11 14:53 | P.PN ---
Subjective Progress Note Date: 10/11/24 64-year-old male who is being seen in the ICU due to hypovolemic shock and rhabdomyolysis. He is a poor historian due to altered mental status and unresponsiveness. All history is obtained from the chart. He initially presented to the emergency department after being found facedown on the ground with a contusion to his forehead and abrasions to his knee and left toes. She stated that he had been having nausea and vomiting for a day prior to being found down. He was noted to have diarrhea as well. Patient is a daily drinker and consumes about a fifth per day according to the notes he has not drank for the 2 days prior to this admission. He also has a history of type 1 diabetes mellitus. Initial EKG showed sinus tachycardia. Head/cervical spine CT showed no acute intracranial process and no acute fracture or traumatic subluxation of the cervical spine. Initial chest x-ray showed right middle lobe scarring/atelectasis, no acute pulmonary process. He had received 4 L of normal saline. Initial labs showed CK level of 18,113, WBCs 10.7, hemoglobin 12.5, sodium 126, creatinine 3.18 lactic acid 6.9, AST 401, ALT 65. Preliminary blood culture showed gram-positive cocci and patient was started on vancomycin. Objective - Vital Signs Vital signs: Vital Signs Temp 98.3 F 10/11/24 08:00 Pulse 78 10/11/24 10:00 Resp 23 10/11/24 10:00 BP 120/63 10/11/24 00:15 Pulse Ox 96 10/11/24 10:00 FiO2 50 10/11/24 10:11 Intake & Output 10/10/24 10/11/24 10/11/24 18:59 06:59 18:59 Intake Total 3691.418 4398.725 492 Output Total 795 433 280 Balance 251.628 2633.725 212 Weight 85.6 kg 92 kg Intake: IV 1230 7855 492 0.9 kvo 230 253 92 Sodium Chloride 0.9% 1, 1000 1100 400 000 ml @ 20 mls/hr IV . Q24H [facility] Rx#:[id number] Intake, IV Titration 463.266 430.725 Amount Amiodarone 450 mg In 248.061 Dextrose 5% in Water 250 ml @ 0.5 MG/MIN 16.667 mls/hr IV .Q15H [facility] Rx#: [id number] Norepinephrine 8 mg In 213.266 182.450 Sodium Chloride 0.9% 250 ml @ 0.14 MCG/KG/MIN 20. 236 mls/hr IV .[id number] [facility] Rx#:[id number] Potassium Chloride 20 meq 100 In Water For Injection 1 100ml.bag @ 50 mls/hr IVPB Q2H [facility] Rx#: [id number] Sodium Chloride 0.9% 1, 150 000 ml @ 20 mls/hr IV . Q24H [facility] Rx#:[id number] propofoL 1,000 mg In 0.214 Empty Bag 1 bag @ 15 MCG/ KG/MIN 7.704 mls/hr IV . [id number] [facility] Rx#:[id number] Output: Urine 795 430 280 Estimated Blood Loss 3 Other: Voiding Method Indwelling Catheter Indwelling Catheter Indwelling Catheter ABP, PAP, CO, CI - Last Documented Arterial Blood Pressure 148/55 - Exam General: Intubated and sedated. Right radial arterial line present. HEENT: Head exam is unremarkable. EOMI bilaterally. ACs patent. Nares patent. Lungs: Mechanical bilateral breath sounds present; no rhonchi, wheezes, or rales. Heart: Rate and rhythm are regular. S1-S2 present. No murmur/rub/gallops. Abdomen: Soft, nontender, nondistended. Bowel sounds present. Extremities: 1+ edema present in all extremities. Neuro: Unable to assess due to intubation/sedation. - Labs CBC & Chem 7: 10/11/24 04:40 10/11/24 04:40 Labs: Abnormal Lab Results - Last 24 Hours (Table) 10/10/24 10/10/24 10/10/24 Range/Units 12:04 12:39 12:41 WBC (3.8-10.6) k/uL RBC (4.30-5.90) m/uL Hgb (13.0-17.5) gm/dL Hct (39.0-53.0) % MCV (80.0-100.0) fL MCH (25.0-35.0) pg Plt Count (150-450) k/uL Macrocytosis ABG pH (7.35-7.45) ABG pCO2 (35-45) mmHg ABG HCO3 (21-25) mmol/L ABG O2 Saturation (94-97) % Hemoglobin (13.0-17.5) gm/dL Chloride (98-107) mmol/L Carbon Dioxide (22-30) mmol/L BUN (9-20) mg/dL Glucose (74-99) mg/dL POC Glucose (mg/dL) 226 H 191 H (70-110) mg/dL Calcium (8.4-10.2) mg/dL Creatine Kinase (55-170) U/L Synovial Crystals CA Pyrophosphat A (None Seen) 10/10/24 10/10/24 10/10/24 Range/Units 16:40 21:22 21:28 WBC 18.2 H (3.8-10.6) k/uL RBC 2.56 L (4.30-5.90) m/uL Hgb 9.3 L (13.0-17.5) gm/dL Hct 28.8 L (39.0-53.0) % MCV 112.3 H (80.0-100.0) fL MCH 36.3 H (25.0-35.0) pg Plt Count 42 L (150-450) k/uL Macrocytosis Marked A ABG pH 7.29 L (7.35-7.45) ABG pCO2 46 H (35-45) mmHg ABG HCO3 (21-25) mmol/L ABG O2 Saturation 97.4 H (94-97) % Hemoglobin 9.6 L (13.0-17.5) gm/dL Chloride (98-107) mmol/L Carbon Dioxide (22-30) mmol/L BUN (9-20) mg/dL Glucose (74-99) mg/dL POC Glucose (mg/dL) 187 H (70-110) mg/dL Calcium (8.4-10.2) mg/dL Creatine Kinase (55-170) U/L Synovial Crystals (None Seen) 10/10/24 10/10/24 10/10/24 Range/Units 21:28 21:36 23:33 WBC (3.8-10.6) k/uL RBC (4.30-5.90) m/uL Hgb (13.0-17.5) gm/dL Hct (39.0-53.0) % MCV (80.0-100.0) fL MCH (25.0-35.0) pg Plt Count (150-450) k/uL Macrocytosis ABG pH (7.35-7.45) ABG pCO2 (35-45) mmHg ABG HCO3 (21-25) mmol/L ABG O2 Saturation (94-97) % Hemoglobin (13.0-17.5) gm/dL Chloride 112 H (98-107) mmol/L Carbon Dioxide 20 L (22-30) mmol/L BUN 34 H (9-20) mg/dL Glucose 166 H (74-99) mg/dL POC Glucose (mg/dL) 169 H 215 H (70-110) mg/dL Calcium 6.7 L (8.4-10.2) mg/dL Creatine Kinase (55-170) U/L Synovial Crystals (None Seen) 10/11/24 10/11/24 10/11/24 Range/Units 04:13 04:40 04:40 WBC 18.1 H (3.8-10.6) k/uL RBC 2.46 L (4.30-5.90) m/uL Hgb 8.8 L (13.0-17.5) gm/dL Hct 27.6 L (39.0-53.0) % MCV 112.2 H (80.0-100.0) fL MCH 35.7 H (25.0-35.0) pg Plt Count 52 L (150-450) k/uL Macrocytosis Marked A ABG pH (7.35-7.45) ABG pCO2 (35-45) mmHg ABG HCO3 (21-25) mmol/L ABG O2 Saturation (94-97) % Hemoglobin (13.0-17.5) gm/dL Chloride 115 H (98-107) mmol/L Carbon Dioxide 17 L (22-30) mmol/L BUN 35 H (9-20) mg/dL Glucose 191 H (74-99) mg/dL POC Glucose (mg/dL) 202 H (70-110) mg/dL Calcium 6.5 L (8.4-10.2) mg/dL Creatine Kinase 215 H (55-170) U/L Synovial Crystals (None Seen) 10/11/24 Range/Units 05:59 WBC (3.8-10.6) k/uL RBC (4.30-5.90) m/uL Hgb (13.0-17.5) gm/dL Hct (39.0-53.0) % MCV (80.0-100.0) fL MCH (25.0-35.0) pg Plt Count (150-450) k/uL Macrocytosis ABG pH 7.34 L (7.35-7.45) ABG pCO2 (35-45) mmHg ABG HCO3 20 L (21-25) mmol/L ABG O2 Saturation 98.2 H (94-97) % Hemoglobin (13.0-17.5) gm/dL Chloride (98-107) mmol/L Carbon Dioxide (22-30) mmol/L BUN (9-20) mg/dL Glucose (74-99) mg/dL POC Glucose (mg/dL) (70-110) mg/dL Calcium (8.4-10.2) mg/dL Creatine Kinase (55-170) U/L Synovial Crystals (None Seen) Microbiology - Last 24 Hours (Table) 10/07/24 16:26 Blood Culture - Preliminary Blood 10/09/24 05:12 Blood Culture - Preliminary Blood 10/08/24 06:16 Blood Culture - Preliminary Blood Assessment and Plan Assessment: 1. Chronic alcohol abuse with acute alcohol withdrawal syndrome; [facility] protocol in place; patient remains on thiamine and Protonix. 2. Rhabdomyolysis secondary to immobility due to fall. Improving with IV hydration. We will continue to monitor strict STERLING's, daily weights, renal function electrolytes 3. Acute kidney injury secondary to ATN due to to septic shock and rhabdomyolysis. Improving; monitor renal function electrolytes; avoid nephrotoxins and hypotension. 4. Relative adrenal insufficiency. On IV hydrocortisone. 5. Transaminitis. Improving. 6. Streptococcus group A bacteremia. Currently on cefazolin per ID recommendation; continue to monitor CBC, CRP and procalcitonin. 7. Hyponatremia, likely hypovolemic; resolved. 8. Type 1 diabetes mellitus; we will continue to monitor Accu-Cheks before every meal and at bedtime with insulin sliding scale. 9. History of coronary artery disease with previous catheterization and stent placement. 10. Hypertension; currently not on any antihypertensive medication.
[2024-10-11] MEDS: IPRATROPIUM-ALBUTEROL 3 ML NEB INHALATION SCH (15:51)
[2024-10-11 16:23] LABS: Glucose,Whole Blood 194 mg/dL (70-110)
--- NOTE | 2024-10-11 18:49 | P.PN ---
Subjective Progress Note Date: 10/11/24 Principal diagnosis: POD1 RIGHT KNEE ARTHROSCOPIC LAVAGE Pt s/e in room. He is on vent still. Nsg at bedside. States he did well today. Weaned but was not able to come off vent yet. She states likely tomorrow should be able to. Pt responds to verbal commands, but is sedated. Right knee is wrapped. NO events today or overnight. Objective - Vital Signs Vital signs: Vital Signs Temp 98.4 F 10/11/24 16:00 Pulse 73 10/11/24 18:00 Resp 12 10/11/24 18:00 BP 112/63 10/11/24 17:45 Pulse Ox 96 10/11/24 18:00 FiO2 50 10/11/24 18:00 Intake & Output 10/10/24 10/11/24 10/11/24 18:59 06:59 18:59 Intake Total 3302.303 0563.725 1549.844 Output Total 254 687 1807 Balance 565.979 2616.725 299.844 Weight 85.6 kg 92 kg 92 kg Intake: IV 1230 7855 916 0.9 kvo 230 253 276 Calcium Gluconate in NaCl 100 2 gm In Saline 1 100ml. bag @ 100 mls/hr IVPB ONCE ONE Rx#:[id number] Sodium Chloride 0.9% 1, 1000 1100 490 000 ml @ 20 mls/hr IV . Q24H [facility] Rx#:[id number] ceFAZolin 2 gm In Sodium 50 Chloride 0.9% 50 ml @ 100 mls/hr IVPB Q8HR [facility] Rx# :[id number] Intake, IV Titration 463.266 430.725 463.844 Amount Amiodarone 450 mg In 248.061 Dextrose 5% in Water 250 ml @ 0.5 MG/MIN 16.667 mls/hr IV .Q15H [facility] Rx#: [id number] Norepinephrine 8 mg In 213.266 182.450 241.979 Sodium Chloride 0.9% 250 ml @ 0.14 MCG/KG/MIN 20. 236 mls/hr IV .[id number] [facility] Rx#:[id number] Potassium Chloride 20 meq 100 In Water For Injection 1 100ml.bag @ 50 mls/hr IVPB Q2H [facility] Rx#: [id number] Sodium Chloride 0.9% 1, 150 000 ml @ 20 mls/hr IV . Q24H [facility] Rx#:[id number] Vasopressin 60 unit In 153 Sodium Chloride 0.9% 150 ml @ 0.03 UNITS/MIN 4.59 mls/hr IV .Q24H [facility] Rx#: [id number] propofoL 1,000 mg In 0.214 68.865 Empty Bag 1 bag @ 15 MCG/ KG/MIN 7.704 mls/hr IV . [id number] [facility] Rx#:[id number] Tube Feeding 140 Other 30 Output: Urine 230 533 8639 Estimated Blood Loss 3 Other: Voiding Method Indwelling Catheter Indwelling Catheter Indwelling Catheter ABP, PAP, CO, CI - Last Documented Arterial Blood Pressure 114/46 - Exam Patient is vented and sedated. Appears ill. Vital signs stable at this time On antibiotics and pressors with low-dose of pressors Ventilator settings reviewed Swelling of bilateral upper and lower extremities due to third spacing Some effusion noted 1+ to 2+ of the left knee as well. Right knee is wrapped with decreased effusion and swelling. No pain response with passive range of motion today. Abrasions of the skin Patient has palpable dorsalis pedis was posterior tibial pulses. Compartments are soft and compressible. - Labs CBC & Chem 7: 10/11/24 04:40 10/11/24 04:40 Labs: Abnormal Lab Results - Last 24 Hours (Table) 10/10/24 10/10/24 10/10/24 Range/Units 12:04 21:22 21:28 WBC 18.2 H (3.8-10.6) k/uL RBC 2.56 L (4.30-5.90) m/uL Hgb 9.3 L (13.0-17.5) gm/dL Hct 28.8 L (39.0-53.0) % MCV 112.3 H (80.0-100.0) fL MCH 36.3 H (25.0-35.0) pg Plt Count 42 L (150-450) k/uL Macrocytosis Marked A ABG pH 7.29 L (7.35-7.45) ABG pCO2 46 H (35-45) mmHg ABG HCO3 (21-25) mmol/L ABG O2 Saturation 97.4 H (94-97) % Hemoglobin 9.6 L (13.0-17.5) gm/dL Chloride (98-107) mmol/L Carbon Dioxide (22-30) mmol/L BUN (9-20) mg/dL Glucose (74-99) mg/dL POC Glucose (mg/dL) (70-110) mg/dL Calcium (8.4-10.2) mg/dL Creatine Kinase (55-170) U/L Synovial Crystals CA Pyrophosphat A (None Seen) 10/10/24 10/10/24 10/10/24 Range/Units 21:28 21:36 23:33 WBC (3.8-10.6) k/uL RBC (4.30-5.90) m/uL Hgb (13.0-17.5) gm/dL Hct (39.0-53.0) % MCV (80.0-100.0) fL MCH (25.0-35.0) pg Plt Count (150-450) k/uL Macrocytosis ABG pH (7.35-7.45) ABG pCO2 (35-45) mmHg ABG HCO3 (21-25) mmol/L ABG O2 Saturation (94-97) % Hemoglobin (13.0-17.5) gm/dL Chloride 112 H (98-107) mmol/L Carbon Dioxide 20 L (22-30) mmol/L BUN 34 H (9-20) mg/dL Glucose 166 H (74-99) mg/dL POC Glucose (mg/dL) 169 H 215 H (70-110) mg/dL Calcium 6.7 L (8.4-10.2) mg/dL Creatine Kinase (55-170) U/L Synovial Crystals (None Seen) 10/11/24 10/11/24 10/11/24 Range/Units 04:13 04:40 04:40 WBC 18.1 H (3.8-10.6) k/uL RBC 2.46 L (4.30-5.90) m/uL Hgb 8.8 L (13.0-17.5) gm/dL Hct 27.6 L (39.0-53.0) % MCV 112.2 H (80.0-100.0) fL MCH 35.7 H (25.0-35.0) pg Plt Count 52 L (150-450) k/uL Macrocytosis Marked A ABG pH (7.35-7.45) ABG pCO2 (35-45) mmHg ABG HCO3 (21-25) mmol/L ABG O2 Saturation (94-97) % Hemoglobin (13.0-17.5) gm/dL Chloride 115 H (98-107) mmol/L Carbon Dioxide 17 L (22-30) mmol/L BUN 35 H (9-20) mg/dL Glucose 191 H (74-99) mg/dL POC Glucose (mg/dL) 202 H (70-110) mg/dL Calcium 6.5 L (8.4-10.2) mg/dL Creatine Kinase 215 H (55-170) U/L Synovial Crystals (None Seen) 10/11/24 10/11/24 10/11/24 Range/Units 05:59 11:48 16:22 WBC (3.8-10.6) k/uL RBC (4.30-5.90) m/uL Hgb (13.0-17.5) gm/dL Hct (39.0-53.0) % MCV (80.0-100.0) fL MCH (25.0-35.0) pg Plt Count (150-450) k/uL Macrocytosis ABG pH 7.34 L (7.35-7.45) ABG pCO2 (35-45) mmHg ABG HCO3 20 L (21-25) mmol/L ABG O2 Saturation 98.2 H (94-97) % Hemoglobin (13.0-17.5) gm/dL Chloride (98-107) mmol/L Carbon Dioxide (22-30) mmol/L BUN (9-20) mg/dL Glucose (74-99) mg/dL POC Glucose (mg/dL) 232 H 194 H (70-110) mg/dL Calcium (8.4-10.2) mg/dL Creatine Kinase (55-170) U/L Synovial Crystals (None Seen) Microbiology - Last 24 Hours (Table) 10/10/24 20:45 Wound Culture - Preliminary Knee - Right 10/09/24 05:12 Blood Culture - Preliminary Blood 10/08/24 06:16 Blood Culture - Preliminary Blood 10/07/24 16:26 Blood Culture - Preliminary Blood Assessment and Plan Assessment: Postop day 1 right knee arthroscopic lavage for septic arthritis Sepsis due to unknown cause Bacteremia Low back pain History of alcohol abuse Complex medical patient Plan: -Appreciate securities consultant and team management. -Appreciate ICU management -Appreciate ID Recs: Agree with MRI of the spine when stable as this is an area where the patient could harbor infection as well is a history of back pain per his family which is longstanding but has been worse over the past few weeks they stated. -Activity: As tolerated when able -Pain control: As appropriate -Meds: [reviewed] -GI ppx: Reviewed -Continue Blake -DVT PPX: As appropriate -Hygiene: Maintain good hygiene -Maintain dressing clean dry and intact may take down the wrap tomorrow. -Dispo: [Pending]
[2024-10-11 19:52] LABS: Glucose,Whole Blood 252 mg/dL (70-110)
[2024-10-11] MEDS: CHLORHEXIDINE GLUCONATE 15 ML CUP MUCOUS MEM SCH (20:04)
--- NOTE | 2024-10-11 20:23 | P.PN ---
Subjective HISTORY OF PRESENTING ILLNESS Patient is a pleasant 64-year-old male with history of hypertension, hyperlipidemia, diabetes mellitus, CAD with prior stenting of the circumflex as well as in-stent stenosis treated medically in 2021, alcohol abuse who follows with Dr. Saavedra. He apparently had not been feeling well on Monday and then on Monday had an episode where he was found unresponsive possibly down for 2 hours. He was evaluated in emergency department with multiple derangements including acute kidney injury, hypovolemic shock, liver injury, anemia. He was admitted to ICU and placed on norepinephrine. He does drink a fifth of 80 Peg ster daily and has been going through withdrawals receiving Ativan and Dilaudid. He currently is nonresponsive on nonrebreather. He did go into A. fib with RVR which is new onset with some decrease in blood pressure and therefore was placed on amiodarone drip. His creatinine has improved from 3 down to 1.3. He was found to have strep bacteremia and had increasing right knee erythema and eventu ally underwent knee aspiration. He therefore is being evaluated for knee arthroscopy. He is not answering questions and questions are filled in by family. Family states he was able walk a city block without difficulty previously. His echocardiogram shows EF 45-50% without significant valvular di sease. 10/11 patient seen and examined. Patient underwent knee arthroscopically yesterday and was intubated. He has been attempted to wean from ventilator however unsuccessful today. Remains on low dose of norepinephrine, likely related to sedation. He remains in normal sinus rhythm. PHYSICAL EXAMINATION Vital signs reviewed. CONSTITUTIONAL: No apparent distress, ill-appearing, not following commands on nonrebreather HEENT: Head is normocephalic. Pupils are equal, round. Sclerae anicteric. Mucous membranes of the mouth are moist. No JVD. No carotid bruit. CHEST EXAMINATION: Lungs are clear to auscultation. No chest wall tenderness is noted on palpation or with deep breathing. HEART EXAMINATION: Regular rate and rhythm. S1, S2 heard. No murmurs, gallops or rub. ABDOMEN: Soft, nontender. Positive bowel sounds. EXTREMITIES: Ulcerations on his left toes NEUROLOGIC EXAMINATION: Patient is not following commands ASSESSMENT New-onset A. fib with RVR, currently normal sinus rhythm Strep bacteremia CAD with prior history of stenting as well as in-stent stenosis Alcohol abuse Hypertension Septic shock Diabetes mellitus type 2 Preoperative cardiovascular exam Altered mental status PLAN patient has been maintaining sinus rhythm. Continue off of anyamiodarone for now given liver disease however if has recurrence may consider initiation. Patient with severe thrombocytopenia, anemia and likely increased risk of bleeding. Consider anticoagulation as an outpatient. No further r ecommendations from cardiology standpoint. Please call with any questions. Objective - Vital Signs Vital signs: Vital Signs Temp 98.4 F 10/11/24 16:00 Pulse 77 10/11/24 19:00 Resp 21 10/11/24 19:00 BP 115/57 10/11/24 18:45 Pulse Ox 95 10/11/24 19:00 FiO2 50 10/11/24 19:00 Intake & Output 10/11/24 10/11/24 10/12/24 06:59 18:59 06:59 Intake Total 8285.725 1549.844 141.619 Output Total 433 1250 100 Balance 7852.725 299.844 41.619 Weight 92 kg 92 kg Intake: IV 7855 916 33 0.9 kvo 253 276 23 Calcium Gluconate in NaCl 100 2 gm In Saline 1 100ml. bag @ 100 mls/hr IVPB ONCE ONE Rx#:[id number] Sodium Chloride 0.9% 1, 1100 490 10 000 ml @ 20 mls/hr IV . Q24H [facility] Rx#:[id number] ceFAZolin 2 gm In Sodium 50 Chloride 0.9% 50 ml @ 100 mls/hr IVPB Q8HR [facility] Rx# :[id number] Intake, IV Titration 430.725 463.844 88.619 Amount Amiodarone 450 mg In 248.061 Dextrose 5% in Water 250 ml @ 0.5 MG/MIN 16.667 mls/hr IV .Q15H [facility] Rx#: [id number] Norepinephrine 8 mg In 182.450 241.979 10.552 Sodium Chloride 0.9% 250 ml @ 0.14 MCG/KG/MIN 20. 236 mls/hr IV .[id number] [facility] Rx#:[id number] Vasopressin 60 unit In 153 Sodium Chloride 0.9% 150 ml @ 0.03 UNITS/MIN 4.59 mls/hr IV .Q24H [facility] Rx#: [id number] propofoL 1,000 mg In 0.214 68.865 78.067 Empty Bag 1 bag @ 15 MCG/ KG/MIN 7.704 mls/hr IV . [id number] [facility] Rx#:[id number] Tube Feeding 140 20 Other 30 Output: Urine 430 1250 100 Estimated Blood Loss 3 Other: Voiding Method Indwelling Catheter Indwelling Catheter ABP, PAP, CO, CI - Last Documented Arterial Blood Pressure 127/46 - Labs CBC & Chem 7: 10/11/24 04:40 10/11/24 04:40 Labs: Abnormal Lab Results - Last 24 Hours (Table) 10/10/24 10/10/24 10/10/24 Range/Units 12:04 21:22 21:28 WBC 18.2 H (3.8-10.6) k/uL RBC 2.56 L (4.30-5.90) m/uL Hgb 9.3 L (13.0-17.5) gm/dL Hct 28.8 L (39.0-53.0) % MCV 112.3 H (80.0-100.0) fL MCH 36.3 H (25.0-35.0) pg Plt Count 42 L (150-450) k/uL Macrocytosis Marked A ABG pH 7.29 L (7.35-7.45) ABG pCO2 46 H (35-45) mmHg ABG HCO3 (21-25) mmol/L ABG O2 Saturation 97.4 H (94-97) % Hemoglobin 9.6 L (13.0-17.5) gm/dL Chloride (98-107) mmol/L Carbon Dioxide (22-30) mmol/L BUN (9-20) mg/dL Glucose (74-99) mg/dL POC Glucose (mg/dL) (70-110) mg/dL Calcium (8.4-10.2) mg/dL Creatine Kinase (55-170) U/L Synovial Crystals CA Pyrophosphat A (None Seen) 10/10/24 10/10/24 10/10/24 Range/Units 21:28 21:36 23:33 WBC (3.8-10.6) k/uL RBC (4.30-5.90) m/uL Hgb (13.0-17.5) gm/dL Hct (39.0-53.0) % MCV (80.0-100.0) fL MCH (25.0-35.0) pg Plt Count (150-450) k/uL Macrocytosis ABG pH (7.35-7.45) ABG pCO2 (35-45) mmHg ABG HCO3 (21-25) mmol/L ABG O2 Saturation (94-97) % Hemoglobin (13.0-17.5) gm/dL Chloride 112 H (98-107) mmol/L Carbon Dioxide 20 L (22-30) mmol/L BUN 34 H (9-20) mg/dL Glucose 166 H (74-99) mg/dL POC Glucose (mg/dL) 169 H 215 H (70-110) mg/dL Calcium 6.7 L (8.4-10.2) mg/dL Creatine Kinase (55-170) U/L Synovial Crystals (None Seen) 10/11/24 10/11/24 10/11/24 Range/Units 04:13 04:40 04:40 WBC 18.1 H (3.8-10.6) k/uL RBC 2.46 L (4.30-5.90) m/uL Hgb 8.8 L (13.0-17.5) gm/dL Hct 27.6 L (39.0-53.0) % MCV 112.2 H (80.0-100.0) fL MCH 35.7 H (25.0-35.0) pg Plt Count 52 L (150-450) k/uL Macrocytosis Marked A ABG pH (7.35-7.45) ABG pCO2 (35-45) mmHg ABG HCO3 (21-25) mmol/L ABG O2 Saturation (94-97) % Hemoglobin (13.0-17.5) gm/dL Chloride 115 H (98-107) mmol/L Carbon Dioxide 17 L (22-30) mmol/L BUN 35 H (9-20) mg/dL Glucose 191 H (74-99) mg/dL POC Glucose (mg/dL) 202 H (70-110) mg/dL Calcium 6.5 L (8.4-10.2) mg/dL Creatine Kinase 215 H (55-170) U/L Synovial Crystals (None Seen) 10/11/24 10/11/24 10/11/24 Range/Units 05:59 11:48 16:22 WBC (3.8-10.6) k/uL RBC (4.30-5.90) m/uL Hgb (13.0-17.5) gm/dL Hct (39.0-53.0) % MCV (80.0-100.0) fL MCH (25.0-35.0) pg Plt Count (150-450) k/uL Macrocytosis ABG pH 7.34 L (7.35-7.45) ABG pCO2 (35-45) mmHg ABG HCO3 20 L (21-25) mmol/L ABG O2 Saturation 98.2 H (94-97) % Hemoglobin (13.0-17.5) gm/dL Chloride (98-107) mmol/L Carbon Dioxide (22-30) mmol/L BUN (9-20) mg/dL Glucose (74-99) mg/dL POC Glucose (mg/dL) 232 H 194 H (70-110) mg/dL Calcium (8.4-10.2) mg/dL Creatine Kinase (55-170) U/L Synovial Crystals (None Seen) 10/11/24 Range/Units 19:50 WBC (3.8-10.6) k/uL RBC (4.30-5.90) m/uL Hgb (13.0-17.5) gm/dL Hct (39.0-53.0) % MCV (80.0-100.0) fL MCH (25.0-35.0) pg Plt Count (150-450) k/uL Macrocytosis ABG pH (7.35-7.45) ABG pCO2 (35-45) mmHg ABG HCO3 (21-25) mmol/L ABG O2 Saturation (94-97) % Hemoglobin (13.0-17.5) gm/dL Chloride (98-107) mmol/L Carbon Dioxide (22-30) mmol/L BUN (9-20) mg/dL Glucose (74-99) mg/dL POC Glucose (mg/dL) 252 H (70-110) mg/dL Calcium (8.4-10.2) mg/dL Creatine Kinase (55-170) U/L Synovial Crystals (None Seen) Microbiology - Last 24 Hours (Table) 10/10/24 20:45 Wound Culture - Preliminary Knee - Right 10/09/24 05:12 Blood Culture - Preliminary Blood 10/08/24 06:16 Blood Culture - Preliminary Blood 10/07/24 16:26 Blood Culture - Preliminary Blood
[2024-10-11 23:24] LABS: Glucose,Whole Blood 229 mg/dL (70-110)
[2024-10-12 03:36] LABS: Glucose,Whole Blood 294 mg/dL (70-110)
[2024-10-12 03:47] LABS: Basophils # (A) 0.1 k/uL (0-0.2); Basophils % (A) 1 %; Eosinophils % (A) 0 %; HCT 25.2 % (39.0-53.0); HGB 8.2 gm/dL (13.0-17.5); Lymphocytes # (A) 0.8 k/uL (1.0-4.8); Lymphocytes % (A) 5 %; MCH 36.2 pg (25.0-35.0); MCHC 32.7 g/dL (31.0-37.0); MCV 110.7 fL (80.0-100.0); Macrocytosis Marked; Mean Platelet Volume 11.6; Monocytes # (A) 0.6 k/uL (0-1.0); Monocytes % (A) 3 %; Neutrophils # (A) 15.6 k/uL (1.3-7.7); Neutrophils % (A) 90 %; RBC 2.28 m/uL (4.30-5.90); RDW 14.4 % (11.5-15.5); WBC 17.4 k/uL (3.8-10.6)
[2024-10-12 03:51] LABS: Platelet Count 53 k/uL (150-450)
[2024-10-12 04:10] LABS: ALT 11 U/L (4-49); AST 35 U/L (17-59); African American GFR (CKD) 76 (>60 ml/min/1.73 sqM); Albumin 1.9 g/dL (3.5-5.0); Alkaline Phosphatase 444 U/L (38-126); Anion Gap 3 mmol/L; Blood Urea Nitrogen 39 mg/dL (9-20); Calcium 6.8 mg/dL (8.4-10.2); Carbon Dioxide 23 mmol/L (22-30); Chloride 116 mmol/L (98-107); Glucose 258 mg/dL (74-99); Magnesium 1.8 mg/dL (1.6-2.3); Non-African American GFR(CKD) 66 (>60 ml/min/1.73 sqM); Potassium 3.7 mmol/L (3.5-5.1); Sodium 142 mmol/L (137-145); Total Bilirubin 1.8 mg/dL (0.2-1.3); Total Protein 4.7 g/dL (6.3-8.2)
[2024-10-12] MEDS: MAGNESIUM SULFATE-D5W PMX 1 GM in DEXTROSE/WATER 1 100ML.BAG IVPB ONE ×2 (05:00→12:10)
[2024-10-12] MEDS: POTASSIUM BICARBONATE/CIT AC 20 MEQ TABLET.EFF NG-TUBE SCH ×2 (05:01→12:11)
[2024-10-12 05:48] LABS: ABG Base Excess 0.2 mmol/L; ABG HCO3 25 mmol/L (21-25); ABG Oxygen Saturation 95.6 % (94-97); ABG PCO2 38 mmHg (35-45); ABG PH 7.42 (7.35-7.45); ABG PO2 74 mmHg (83-108); ABG TCO2 26 mmol/L (19-24); Allen Test Performed? Yes
--- NOTE | 2024-10-12 08:04 | XR ---
EXAMINATION TYPE: XR chest 1V portable DATE OF EXAM: 10/12/2024 COMPARISON: 10/11/2024 HISTORY: Tube placement TECHNIQUE: Single frontal view of the chest is obtained. FINDINGS: ET tube is 6.7 cm above the marvel. There is an NG tube within the stomach. There are stable small bilateral pleural effusions. There is a retrocardiac opacity which is stable. The partially consolidated opacity in the left mid lung has decreased slightly in the interval. There is no pneumothorax. IMPRESSION: 1. ET tube 6.7 cm above the marvel. 2. Acute cardiopulmonary disease with mild interval improvement in the left lung opacity as described above. [facility], , 10/12/2024 8:02 AM
[2024-10-12 08:14] LABS: Glucose,Whole Blood 356 mg/dL (70-110)
[2024-10-12] MEDS: CALCIUM GLUCONATE IN NACL 1 GM in SALINE 1 100ML.BAG IVPB ONE (08:39)
--- NOTE | 2024-10-12 09:27 | P.PN ---
Subjective Progress Note Date: 10/12/24 Patient is a 64-year-old male who is being seen in the ICU due to hypovolemic shock and rhabdomyolysis. He is a poor historian due to altered mental status and unresponsiveness. All history is obtained from the chart. He initially presented to the emergency department after being found facedown on the ground with a contusion to his forehead and abrasions to his knee and left toes. She stated that he had been having nausea and vomiting for a day prior to being found down. He was noted to have diarrhea as well. Patient is a daily drinker and consumes about a fifth per day according to the notes he has not drank for the 2 days prior to this admission. He also has a history of type 1 diabetes m socrates. Initial EKG showed sinus tachycardia. Head/cervical spine CT showed no acute intracranial process and no acute fracture or traumatic subluxation of the cervical spine. Initial chest x-ray showed right middle lobe scarring/atelectasis, no acute pulmonary process. He had received 4 L of normal saline. Initial labs showed CK level of 18,113, WBCs 10.7, hemoglobin 12.5, sodium 126, creatinine 3.18 lactic acid 6.9, AST 401, ALT 65. Preliminary blood culture showed gram-positive cocci and patient was started on vancomycin. 10/07/2024. He is maintained on a bicarb drip as well as normal saline. He remains unresponsive to verbal stimulation. He is maintained on CIWA protocol. Labs today: WBCs 5.1, hemoglobin 11.6, sodium 126, potassium 3.8, BUN 53, creatinine 3.12, ammonia <9. 10/08/2024. 64-year-old male seen in room 252. I was notified by the nurse at nighttime, that the patient's blood pressure continued to drop. We bumped up his dose of norepinephrine, and gave him a liter of fluid. In addition, his respiratory status was marginal, and the blood gas was ordered. The patient is currently on 6 L of oxygen. The patient was admitted on October 06. He is getting saline at 150 cc an hour, and Precedex at 0.4 mcg/kg/h. His norepinephrine is running at 31 mcg/min. There is staphylococci in his blood. I have asked the nurses to add Ativan Dilaudid and Haldol to his regimen, to try to wean him off the dexmedetomidine. White count of 9.1, hemoglobin hematocrit 29, platelet count 88,000. Sodium 131, potassium 3, chloride 92, CO2 32, BUN 50, creatinine 2.34. Glucose is 167. Calcium is 6.3. CK was 8796. AST is 507. ALT is 136. Albumin is 2.2. Blood cultures from the were positive for Streptococcus group A. Chest x-ray shows bilateral effusions, small, with low lung volumes. 10/09/2024. Patient seen as a followup. No acute events overnight. He is currently on 6 L of oxygen. He was on dextrose 5% - 0.9% NaCl, blood sugars have been in the mid to high 200s. He is receiving Kefzol for streptococcal group A bacteremia. Precedex has been turned off. Levophed is 0.3 mcg/kg/min. WBCs 12.3, hemoglobin 9.7, hematocrit 27.7, platelets 48. Sodium 133, potassium 3.7, chloride 105, CO2 19, BUN 42, creatinine 1.62. Glucose 267. Calcium 6.4. CK 3888. AST 323, ALT 78. Albumin 2.2. Today's chest x-ray showed cardiomegaly, pulmonary vascular congestion, and bilateral pleural effusions. 10/10/2024. Patient is being seen as a followup in the ICU. Overnight he went into A-fib with rapid ventricular rate, was started on an amiodarone drip at 1mg/min, and converted back to normal sinus rhythm. His pressures remain in the 100s/40s and pulses are He is currently on 15 L high flow oxygen. He is on normal saline at 150 cc/h. He is maintained on Kefzol for streptococcal group A bactermia, today is day 3. Levophed is at 0.11 mcg/kg/min, vasopressin at 0.02 mcg/kg/min. WBCs 16.4, hemoglobin 9.8, hematocrit 29.6, platelets 38. Sodium 138, potassium 3.5, chloride 112, CO2 23, BUN 35, creatinine 1.26, glucose 164. Ionized calcium 4.1. CK 988. AST 154, ALT 36. Cortisol 32. TSH 4.3830. In addition, he removed his NG tube overnight. Today's chest x-ray is unchanged from previous. He remains lethargic and barely responsive to verbal stimulation. 10/11/2024. Patient is seen in the ICU. He underwent arthroscopic lavage of the right knee yesterday evening and returned to the ICU intubated on mechanical ventilation. He is currently on assist-control mode with rate 18, tidal volume 450, FiO2 70%, PEEP 5. ABG shows pH 7.34, pCO2 37, pO2 95. He is maintained on vasopressin 0.02 units/min, Levophed 0.14 mcg/kg/min, normal saline at 100 cc/h, and Kefzol day 4. WBCs 18.1, hemoglobin 8.8, hematocrit 27.6, platelets 52, sodium 140, potassium 3.9, chloride 115, CO2 17, BUN 35, creatinine 1.08, glucose 191, creatinine kinase 215. Calcium 6.5. Magnesium 1.6. He began IV hydrocortisone 50 mg every 6 hours yesterday. Liver ultrasound performed yesterday revealed no acute process. Chest x-ray today is unchanged from previous. 10/12/2024. Patient is evaluated in the ICU. 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 ABG shows pH 7.42, pCO2 38, pO2 74. His RSBI yesterday was 110 and he was unable to follow commands so he could not be extubated. He is maintained on vasopressin 0.02 units/min, normal saline at 20 cc/h, IV hydrocortisone 50 mg every 6 hours, and Kefzol day 5. WBCs 17.4, hemoglobin 8.2, hematocrit 25.2, platelets 53, sodium 142, potassium 3.7, chloride 116, CO2 23, BUN 39, creatinine 1.18, glucose 258. Ionized calcium 4.4. Magnesium 1.8. Today's chest x-ray is unchanged. Wound culture gram stain of the right knee preliminary report shows rare gram positive cocci. Objective - Vital Signs Vital signs: Vital Signs Temp 98.3 F 10/12/24 04:00 Pulse 67 10/12/24 07:00 Resp 16 10/12/24 07:00 BP 110/58 10/12/24 07:00 Pulse Ox 100 10/12/24 07:00 FiO2 50 10/12/24 04:00 Intake & Output 10/11/24 10/12/24 10/12/24 18:59 06:59 18:59 Intake Total 1943.994 7746.780 63 Output Total 1250 655 75 Balance 299.844 577.780 -12 Weight 92 kg 93.1 kg Intake: IV 916 466 23 0.9 kvo 276 216 3 Calcium Gluconate in NaCl 100 2 gm In Saline 1 100ml. bag @ 100 mls/hr IVPB ONCE ONE Rx#:[id number] Sodium Chloride 0.9% 1, 490 150 20 000 ml @ 20 mls/hr IV . Q24H [facility] Rx#:[id number] ceFAZolin 2 gm In Sodium 50 100 Chloride 0.9% 50 ml @ 100 mls/hr IVPB Q8HR [facility] Rx# :[id number] Intake, IV Titration 463.844 296.780 Amount Norepinephrine 8 mg In 241.979 83.959 Sodium Chloride 0.9% 250 ml @ 0.14 MCG/KG/MIN 20. 236 mls/hr IV .[id number] [facility] Rx#:[id number] Vasopressin 60 unit In 153 Sodium Chloride 0.9% 150 ml @ 0.03 UNITS/MIN 4.59 mls/hr IV .Q24H [facility] Rx#: [id number] propofoL 1,000 mg In 68.865 212.821 Empty Bag 1 bag @ 15 MCG/ KG/MIN 7.704 mls/hr IV . [id number] [facility] Rx#:[id number] Tube Feeding 140 380 40 Other 30 90 Output: Urine 1250 655 75 Other: Voiding Method Indwelling Catheter Indwelling Catheter ABP, PAP, CO, CI - Last Documented Arterial Blood Pressure 95/64 - Exam Vital signs are stable. General: Intubated and sedated. Right radial arterial line present. HEENT: Head exam is unremarkable. EOMI bilaterally. ACs patent. Nares patent. Lungs: Mechanical bilateral breath sounds present; no rhonchi, wheezes, or rales. Heart: Rate and rhythm are regular. S1-S2 present. No murmur/rub/gallops. Abdomen: Soft, nontender, nondistended. Bowel sounds present. Extremities: 1+ edema present in all extremities. Neuro: Unable to assess due to intubation/sedation. - Labs CBC & Chem 7: 10/12/24 03:36 10/12/24 03:36 Labs: Abnormal Lab Results - Last 24 Hours (Table) 10/11/24 10/11/24 10/11/24 Range/Units 11:48 16:22 19:50 WBC (3.8-10.6) k/uL RBC (4.30-5.90) m/uL Hgb (13.0-17.5) gm/dL Hct (39.0-53.0) % MCV (80.0-100.0) fL MCH (25.0-35.0) pg Plt Count (150-450) k/uL Neutrophils # (1.3-7.7) k/uL Lymphocytes # (1.0-4.8) k/uL Macrocytosis ABG pO2 (83-108) mmHg ABG Total CO2 (19-24) mmol/L Hemoglobin (13.0-17.5) gm/dL Chloride (98-107) mmol/L BUN (9-20) mg/dL Glucose (74-99) mg/dL POC Glucose (mg/dL) 232 H 194 H 252 H (70-110) mg/dL Calcium (8.4-10.2) mg/dL Ionized Calcium Joshua (4.5-5.3) mg/dL Total Bilirubin (0.2-1.3) mg/dL Alkaline Phosphatase (38-126) U/L Total Protein (6.3-8.2) g/dL Albumin (3.5-5.0) g/dL 10/11/24 10/12/24 10/12/24 Range/Units 23:23 03:34 03:36 WBC 17.4 H (3.8-10.6) k/uL RBC 2.28 L (4.30-5.90) m/uL Hgb 8.2 L (13.0-17.5) gm/dL Hct 25.2 L (39.0-53.0) % MCV 110.7 H (80.0-100.0) fL MCH 36.2 H (25.0-35.0) pg Plt Count 53 L (150-450) k/uL Neutrophils # 15.6 H (1.3-7.7) k/uL Lymphocytes # 0.8 L (1.0-4.8) k/uL Macrocytosis Marked A ABG pO2 (83-108) mmHg ABG Total CO2 (19-24) mmol/L Hemoglobin (13.0-17.5) gm/dL Chloride (98-107) mmol/L BUN (9-20) mg/dL Glucose (74-99) mg/dL POC Glucose (mg/dL) 229 H 294 H (70-110) mg/dL Calcium (8.4-10.2) mg/dL Ionized Calcium Joshua (4.5-5.3) mg/dL Total Bilirubin (0.2-1.3) mg/dL Alkaline Phosphatase (38-126) U/L Total Protein (6.3-8.2) g/dL Albumin (3.5-5.0) g/dL 10/12/24 10/12/24 10/12/24 Range/Units 03:36 03:36 05:45 WBC (3.8-10.6) k/uL RBC (4.30-5.90) m/uL Hgb (13.0-17.5) gm/dL Hct (39.0-53.0) % MCV (80.0-100.0) fL MCH (25.0-35.0) pg Plt Count (150-450) k/uL Neutrophils # (1.3-7.7) k/uL Lymphocytes # (1.0-4.8) k/uL Macrocytosis ABG pO2 74 L (83-108) mmHg ABG Total CO2 26 H (19-24) mmol/L Hemoglobin 8.0 L (13.0-17.5) gm/dL Chloride 116 H (98-107) mmol/L BUN 39 H (9-20) mg/dL Glucose 258 H (74-99) mg/dL POC Glucose (mg/dL) (70-110) mg/dL Calcium 6.8 L (8.4-10.2) mg/dL Ionized Calcium Joshua 4.4 L (4.5-5.3) mg/dL Total Bilirubin 1.8 H (0.2-1.3) mg/dL Alkaline Phosphatase 444 H (38-126) U/L Total Protein 4.7 L (6.3-8.2) g/dL Albumin 1.9 L (3.5-5.0) g/dL Microbiology - Last 24 Hours (Table) 11/21/24 20:45 Gram Stain - Preliminary Knee - Right Wound Culture - Preliminary 10/09/24 05:12 Blood Culture - Preliminary Blood 10/08/24 06:16 Blood Culture - Preliminary Blood Assessment and Plan Assessment: Chronic alcohol abuse with acute alcohol withdrawal syndrome. Rhabdomyolysis secondary to immobility due to fall. Improving. Acute kidney injury secondary to ATN due to to septic shock and rhabdomyolysis. Improving. Relative adrenal insufficiency. On IV hydrocortisone. Non-anion gap metabolic acidosis. Transaminitis. Improving. Streptococcus group A bacteremia. Currently on cefazolin. Lactic acidosis. Resolved. Hyponatremia, likely hypovolemic. Hypoalbuminemia. Hypocalcemia. Hypomagnesemia. Type 1 diabetes mellitus. History of coronary artery disease with previous catheterization and stent placement. History of GERD. Hyperlipidemia. Hypertension. History of myocardial infarction. History of osteoarthritis. Plan: Continue IV hydrocortisone succinate 50 mg every 6 hours. Continue IV cefazolin. Attempt to wean patient off sedation and mechanical ventilation with possible extubation. Give IV calcium gluconate 1 g. Monitor blood sugars. Insulin sliding scale. Continue CIWA protocol. Monitor hemodynamics. GI prophylaxis with IV Protonix. DVT prophylaxis with SCDs. Nephrology following. Cardiology following. Infectious disease is following. Orthopedic surgery is following. Labs, x-rays, and medications were reviewed.
[2024-10-12 11:10] LABS: Magnesium 1.9 mg/dL (1.6-2.3); Potassium 3.7 mmol/L (3.5-5.1)
[2024-10-12 11:52] LABS: Glucose,Whole Blood 322 mg/dL (70-110)
--- NOTE | 2024-10-12 12:09 | P.PN ---
Subjective patient is seen for follow-up for acute kidney injury. Renal function has improved. Patient remains on the vent. Urine output at 40-75 mL an hour. Serum creatinine at 1.1 mg/dL. Objective - Vital Signs Vital signs: Vital Signs Temp 98.6 F 10/12/24 12:00 Pulse 110 H 10/12/24 12:00 Resp 21 10/12/24 12:00 BP 122/66 10/12/24 12:00 Pulse Ox 96 10/12/24 12:00 FiO2 50 10/12/24 12:00 Intake & Output 10/11/24 10/12/24 10/12/24 18:59 06:59 18:59 Intake Total 1881.874 2942.780 760.601 Output Total 1250 655 415 Balance 299.844 577.780 345.601 Weight 92 kg 93.1 kg Intake: IV 916 466 338 0.9 kvo 276 216 18 Calcium Gluconate in NaCl 100 1 gm In Saline 1 100ml. bag @ 100 mls/hr IVPB ONCE ONE Rx#:[id number] Calcium Gluconate in NaCl 100 2 gm In Saline 1 100ml. bag @ 100 mls/hr IVPB ONCE ONE Rx#:[id number] Sodium Chloride 0.9% 1, 490 150 120 000 ml @ 20 mls/hr IV . Q24H [facility] Rx#:[id number] ceFAZolin 2 gm In Sodium 50 100 100 Chloride 0.9% 50 ml @ 100 mls/hr IVPB Q8HR [facility] Rx# :[id number] Intake, IV Titration 463.844 296.780 122.601 Amount Norepinephrine 8 mg In 241.979 83.959 1.734 Sodium Chloride 0.9% 250 ml @ 0.14 MCG/KG/MIN 20. 236 mls/hr IV .[id number] [facility] Rx#:[id number] Vasopressin 60 unit In 153 52.454 Sodium Chloride 0.9% 150 ml @ 0.03 UNITS/MIN 4.59 mls/hr IV .Q24H [facility] Rx#: [id number] propofoL 1,000 mg In 68.865 212.821 68.413 Empty Bag 1 bag @ 15 MCG/ KG/MIN 7.704 mls/hr IV . [id number] [facility] Rx#:[id number] Tube Feeding 140 380 240 Other 30 90 60 Output: Urine 1250 655 415 Other: Voiding Method Indwelling Catheter Indwelling Catheter Indwelling Catheter ABP, PAP, CO, CI - Last Documented Arterial Blood Pressure 123/42 - Exam patient is sedated and on the vent. Examination of the heart S1 and S2 Examination of the lungs bilateral breath sounds are heard Abdomen is soft nontender Examination of lower extremities shows edema 1+. Discoloration of toes noted in left foot. - Labs CBC & Chem 7: 10/12/24 03:36 10/12/24 10:00 Labs: Abnormal Lab Results - Last 24 Hours (Table) 10/11/24 10/11/24 10/11/24 Range/Units 16:22 19:50 23:23 WBC (3.8-10.6) k/uL RBC (4.30-5.90) m/uL Hgb (13.0-17.5) gm/dL Hct (39.0-53.0) % MCV (80.0-100.0) fL MCH (25.0-35.0) pg Plt Count (150-450) k/uL Neutrophils # (1.3-7.7) k/uL Lymphocytes # (1.0-4.8) k/uL Macrocytosis ABG pO2 (83-108) mmHg ABG Total CO2 (19-24) mmol/L Hemoglobin (13.0-17.5) gm/dL Chloride (98-107) mmol/L BUN (9-20) mg/dL Glucose (74-99) mg/dL POC Glucose (mg/dL) 194 H 252 H 229 H (70-110) mg/dL Calcium (8.4-10.2) mg/dL Ionized Calcium Joshua (4.5-5.3) mg/dL Total Bilirubin (0.2-1.3) mg/dL Alkaline Phosphatase (38-126) U/L Total Protein (6.3-8.2) g/dL Albumin (3.5-5.0) g/dL 10/12/24 10/12/24 10/12/24 Range/Units 03:34 03:36 03:36 WBC 17.4 H (3.8-10.6) k/uL RBC 2.28 L (4.30-5.90) m/uL Hgb 8.2 L (13.0-17.5) gm/dL Hct 25.2 L (39.0-53.0) % MCV 110.7 H (80.0-100.0) fL MCH 36.2 H (25.0-35.0) pg Plt Count 53 L (150-450) k/uL Neutrophils # 15.6 H (1.3-7.7) k/uL Lymphocytes # 0.8 L (1.0-4.8) k/uL Macrocytosis Marked A ABG pO2 (83-108) mmHg ABG Total CO2 (19-24) mmol/L Hemoglobin (13.0-17.5) gm/dL Chloride 116 H (98-107) mmol/L BUN 39 H (9-20) mg/dL Glucose 258 H (74-99) mg/dL POC Glucose (mg/dL) 294 H (70-110) mg/dL Calcium 6.8 L (8.4-10.2) mg/dL Ionized Calcium Joshua (4.5-5.3) mg/dL Total Bilirubin 1.8 H (0.2-1.3) mg/dL Alkaline Phosphatase 444 H (38-126) U/L Total Protein 4.7 L (6.3-8.2) g/dL Albumin 1.9 L (3.5-5.0) g/dL 10/12/24 10/12/24 10/12/24 Range/Units 03:36 05:45 08:01 WBC (3.8-10.6) k/uL RBC (4.30-5.90) m/uL Hgb (13.0-17.5) gm/dL Hct (39.0-53.0) % MCV (80.0-100.0) fL MCH (25.0-35.0) pg Plt Count (150-450) k/uL Neutrophils # (1.3-7.7) k/uL Lymphocytes # (1.0-4.8) k/uL Macrocytosis ABG pO2 74 L (83-108) mmHg ABG Total CO2 26 H (19-24) mmol/L Hemoglobin 8.0 L (13.0-17.5) gm/dL Chloride (98-107) mmol/L BUN (9-20) mg/dL Glucose (74-99) mg/dL POC Glucose (mg/dL) 356 H (70-110) mg/dL Calcium (8.4-10.2) mg/dL Ionized Calcium Joshua 4.4 L (4.5-5.3) mg/dL Total Bilirubin (0.2-1.3) mg/dL Alkaline Phosphatase (38-126) U/L Total Protein (6.3-8.2) g/dL Albumin (3.5-5.0) g/dL 10/12/24 Range/Units 11:51 WBC (3.8-10.6) k/uL RBC (4.30-5.90) m/uL Hgb (13.0-17.5) gm/dL Hct (39.0-53.0) % MCV (80.0-100.0) fL MCH (25.0-35.0) pg Plt Count (150-450) k/uL Neutrophils # (1.3-7.7) k/uL Lymphocytes # (1.0-4.8) k/uL Macrocytosis ABG pO2 (83-108) mmHg ABG Total CO2 (19-24) mmol/L Hemoglobin (13.0-17.5) gm/dL Chloride (98-107) mmol/L BUN (9-20) mg/dL Glucose (74-99) mg/dL POC Glucose (mg/dL) 322 H (70-110) mg/dL Calcium (8.4-10.2) mg/dL Ionized Calcium Joshua (4.5-5.3) mg/dL Total Bilirubin (0.2-1.3) mg/dL Alkaline Phosphatase (38-126) U/L Total Protein (6.3-8.2) g/dL Albumin (3.5-5.0) g/dL Microbiology - Last 24 Hours (Table) 10/10/24 20:45 Gram Stain - Preliminary Knee - Right Wound Culture - Preliminary 10/09/24 05:12 Blood Culture - Preliminary Blood 10/08/24 06:16 Blood Culture - Preliminary Blood Assessment and Plan Assessment: 1. Acute kidney injury secondary to ATN secondary to septic shock and rhabdomyolysis. Creatinine 3.18 on admission and is improved to 1.1. Baseline creatinine near 1. No hydronephrosis noted on kidney ultrasound. 2. Rhabdomyolysis secondary to immobility. CK levels trending down. 3. Strep bacteremia on antibiotics. 4. Anion gap metabolic acidosis secondary to acute kidney injury and lactic acidosis. Now due to IV fluids. Status post bicarb drip. 5. Hyponatremia secondary to hypovolemia as well as acute kidney injury. Better. 6. Hypomagnesemia from poor intake and alcohol abuse. Replaced. 7. History of alcohol abuse. 8. Hypocalcemia, replaced. rule out vitamin D deficiency 9. Hypokalemia from poor intake. Replaced. Better. 10. A-fib with RVR status post amiodarone drip. 11. Volume overload. Plan: repeat IV Lasix Check 25 hydroxy vitamin D
[2024-10-12] MEDS: FUROSEMIDE 10 MG/ML 2 ML VIAL IV SCH (12:20)
--- NOTE | 2024-10-12 12:46 | P.PN ---
Subjective Progress Note Date: 10/12/24 Principal diagnosis: Reason for follow-up is Streptococcus agalactiae bacteremia Patient is a 64-year-old male past medical his significant for diabetes mellitus hypertension hyperlipidemia [place] osteoarthritis coronary disease patient was brought into the hospital after apparently the patient was found to be facedown on the ground with contusion to his forehead and abrasion to his knee and some bloody toes, patient did have a fever subsequently blood cultures came back positive with Streptococcus agalactiae prompting this consultation. Patient noticed to have swelling of the right knee aspirate was purulent subsequently the patient did have a right knee washout completed by orthopedics on 10/10/2024. On today's evaluation that is 10/12/2024,the patient remains to be afebrile, patient is on on the ventilator patient FiO2 is currently stable at 50% no significant purulent secretions on the ET the patient is hemodynamically stable not requiring any pressor support. The patient white count is down to 17.4, creatinine is 1.18 right knee cultures currently pending blood culture repeat so far negative Objective - Vital Signs Vital signs: Vital Signs Temp 98.6 F 10/12/24 12:00 Pulse 110 H 10/12/24 12:00 Resp 21 10/12/24 12:00 BP 122/66 10/12/24 12:00 Pulse Ox 96 10/12/24 12:00 FiO2 50 10/12/24 12:00 Intake & Output 10/11/24 10/12/24 10/12/24 18:59 06:59 18:59 Intake Total 0615.012 2750.780 760.601 Output Total 1250 655 415 Balance 299.844 577.780 345.601 Weight 92 kg 93.1 kg Intake: IV 916 466 338 0.9 kvo 276 216 18 Calcium Gluconate in NaCl 100 1 gm In Saline 1 100ml. bag @ 100 mls/hr IVPB ONCE ONE Rx#:[id number] Calcium Gluconate in NaCl 100 2 gm In Saline 1 100ml. bag @ 100 mls/hr IVPB ONCE ONE Rx#:[id number] Sodium Chloride 0.9% 1, 490 150 120 000 ml @ 20 mls/hr IV . Q24H [facility] Rx#:[id number] ceFAZolin 2 gm In Sodium 50 100 100 Chloride 0.9% 50 ml @ 100 mls/hr IVPB Q8HR [facility] Rx# :[id number] Intake, IV Titration 463.844 296.780 122.601 Amount Norepinephrine 8 mg In 241.979 83.959 1.734 Sodium Chloride 0.9% 250 ml @ 0.14 MCG/KG/MIN 20. 236 mls/hr IV .[id number] [facility] Rx#:[id number] Vasopressin 60 unit In 153 52.454 Sodium Chloride 0.9% 150 ml @ 0.03 UNITS/MIN 4.59 mls/hr IV .Q24H [facility] Rx#: [id number] propofoL 1,000 mg In 68.865 212.821 68.413 Empty Bag 1 bag @ 15 MCG/ KG/MIN 7.704 mls/hr IV . [id number] [facility] Rx#:[id number] Tube Feeding 140 380 240 Other 30 90 60 Output: Urine 1250 655 415 Other: Voiding Method Indwelling Catheter Indwelling Catheter Indwelling Catheter ABP, PAP, CO, CI - Last Documented Arterial Blood Pressure 123/42 - Exam GENERAL DESCRIPTION: Middle-age male intubated on the vent RESPIRATORY SYSTEM: Unlabored breathing , decreased breath sounds at bases HEART: S1 S2 regular rate and rhythm , ABDOMEN: Soft , no tenderness EXTREMITIES: Right leg is currently dressed - Labs CBC & Chem 7: 10/12/24 03:36 10/12/24 10:00 Labs: Abnormal Lab Results - Last 24 Hours (Table) 10/11/24 10/11/24 10/11/24 Range/Units 16:22 19:50 23:23 WBC (3.8-10.6) k/uL RBC (4.30-5.90) m/uL Hgb (13.0-17.5) gm/dL Hct (39.0-53.0) % MCV (80.0-100.0) fL MCH (25.0-35.0) pg Plt Count (150-450) k/uL Neutrophils # (1.3-7.7) k/uL Lymphocytes # (1.0-4.8) k/uL Macrocytosis ABG pO2 (83-108) mmHg ABG Total CO2 (19-24) mmol/L Hemoglobin (13.0-17.5) gm/dL Chloride (98-107) mmol/L BUN (9-20) mg/dL Glucose (74-99) mg/dL POC Glucose (mg/dL) 194 H 252 H 229 H (70-110) mg/dL Calcium (8.4-10.2) mg/dL Ionized Calcium Joshua (4.5-5.3) mg/dL Total Bilirubin (0.2-1.3) mg/dL Alkaline Phosphatase (38-126) U/L Total Protein (6.3-8.2) g/dL Albumin (3.5-5.0) g/dL 10/12/24 10/12/24 10/12/24 Range/Units 03:34 03:36 03:36 WBC 17.4 H (3.8-10.6) k/uL RBC 2.28 L (4.30-5.90) m/uL Hgb 8.2 L (13.0-17.5) gm/dL Hct 25.2 L (39.0-53.0) % MCV 110.7 H (80.0-100.0) fL MCH 36.2 H (25.0-35.0) pg Plt Count 53 L (150-450) k/uL Neutrophils # 15.6 H (1.3-7.7) k/uL Lymphocytes # 0.8 L (1.0-4.8) k/uL Macrocytosis Marked A ABG pO2 (83-108) mmHg ABG Total CO2 (19-24) mmol/L Hemoglobin (13.0-17.5) gm/dL Chloride 116 H (98-107) mmol/L BUN 39 H (9-20) mg/dL Glucose 258 H (74-99) mg/dL POC Glucose (mg/dL) 294 H (70-110) mg/dL Calcium 6.8 L (8.4-10.2) mg/dL Ionized Calcium Joshua (4.5-5.3) mg/dL Total Bilirubin 1.8 H (0.2-1.3) mg/dL Alkaline Phosphatase 444 H (38-126) U/L Total Protein 4.7 L (6.3-8.2) g/dL Albumin 1.9 L (3.5-5.0) g/dL 10/12/24 10/12/24 10/12/24 Range/Units 03:36 05:45 08:01 WBC (3.8-10.6) k/uL RBC (4.30-5.90) m/uL Hgb (13.0-17.5) gm/dL Hct (39.0-53.0) % MCV (80.0-100.0) fL MCH (25.0-35.0) pg Plt Count (150-450) k/uL Neutrophils # (1.3-7.7) k/uL Lymphocytes # (1.0-4.8) k/uL Macrocytosis ABG pO2 74 L (83-108) mmHg ABG Total CO2 26 H (19-24) mmol/L Hemoglobin 8.0 L (13.0-17.5) gm/dL Chloride (98-107) mmol/L BUN (9-20) mg/dL Glucose (74-99) mg/dL POC Glucose (mg/dL) 356 H (70-110) mg/dL Calcium (8.4-10.2) mg/dL Ionized Calcium Joshua 4.4 L (4.5-5.3) mg/dL Total Bilirubin (0.2-1.3) mg/dL Alkaline Phosphatase (38-126) U/L Total Protein (6.3-8.2) g/dL Albumin (3.5-5.0) g/dL 10/12/24 Range/Units 11:51 WBC (3.8-10.6) k/uL RBC (4.30-5.90) m/uL Hgb (13.0-17.5) gm/dL Hct (39.0-53.0) % MCV (80.0-100.0) fL MCH (25.0-35.0) pg Plt Count (150-450) k/uL Neutrophils # (1.3-7.7) k/uL Lymphocytes # (1.0-4.8) k/uL Macrocytosis ABG pO2 (83-108) mmHg ABG Total CO2 (19-24) mmol/L Hemoglobin (13.0-17.5) gm/dL Chloride (98-107) mmol/L BUN (9-20) mg/dL Glucose (74-99) mg/dL POC Glucose (mg/dL) 322 H (70-110) mg/dL Calcium (8.4-10.2) mg/dL Ionized Calcium Joshua (4.5-5.3) mg/dL Total Bilirubin (0.2-1.3) mg/dL Alkaline Phosphatase (38-126) U/L Total Protein (6.3-8.2) g/dL Albumin (3.5-5.0) g/dL Microbiology - Last 24 Hours (Table) 10/10/24 20:45 Gram Stain - Preliminary Knee - Right Wound Culture - Preliminary 10/09/24 05:12 Blood Culture - Preliminary Blood 10/08/24 06:16 Blood Culture - Preliminary Blood Assessment and Plan (1) Sepsis Current Visit: Yes Status: Acute Code(s): A41.9 - SEPSIS, UNSPECIFIED ORGANISM SNOMED Code(s): 28892515 (2) Streptococcal bacteremia Current Visit: Yes Status: Acute Code(s): R78.81 - BACTEREMIA; B95.5 - UNSP STREPTOCOCCUS THE CAUSE OF DISEASES [facility] SNOMED Code(s): 369216958448 Plan: 1patient presented to the hospital with sepsis in this patient who did have fever tachycardia elevated white count and now with evidence of streptococcal bacteremia which is usually of skin and soft tissue origin 2-patient noticed to have right knee effusion has been evaluated by orthopedics and is status post aspiration with purulent drainage subsequently did have right knee washout by orthopedic cultures are pending may need further workup including MRI of the spine when stable. 3patient is currently on cefazolin 2 g every 8 hours day # 7 out of 42 Family the bedside questions were answered Dictation was produced using [employer] dictation software. please excuse any grammatical, word or spelling errors. Time with Patient: Less than 30
[2024-10-12 16:06] LABS: Glucose,Whole Blood 369 mg/dL (70-110)
[2024-10-12] MEDS: POTASSIUM CHLORIDE 20 MEQ in WATER FOR INJECTION 1 100ML.BAG IVPB SCH (17:43)
--- NOTE | 2024-10-12 18:12 | P.PN ---
Subjective Progress Note Date: 10/12/24 64-year-old male who is being seen in the ICU due to hypovolemic shock and rhabdomyolysis. He is a poor historian due to altered mental status and unresponsiveness. All history is obtained from the chart. He initially presented to the emergency department after being found facedown on the ground with a contusion to his forehead and abrasions to his knee and left toes. She stated that he had been having nausea and vomiting for a day prior to being found down. He was noted to have diarrhea as well. Patient is a daily drinker and consumes about a fifth per day according to the notes he has not drank for the 2 days prior to this admission. He also has a history of type 1 diabetes mellitus. Initial EKG showed sinus tachycardia. Head/cervical spine CT showed no acute intracranial process and no acute fracture or traumatic subluxation of the cervical spine. Initial chest x-ray showed right middle lobe scarring/atelectasis, no acute pulmonary process. He had received 4 L of normal saline. Initial labs showed CK level of 18,113, WBCs 10.7, hemoglobin 12.5, sodium 126, creatinine 3.18 lactic acid 6.9, AST 401, ALT 65. Preliminary blood culture showed gram-positive cocci and patient was started on vancomycin. 24-hour interval change 10/12/2024 -- Patient is evaluated in the ICU. He remains intubated on mechanical ventilation - ABG shows pH 7.42, pCO2 38, pO2 74. - He is maintained on vasopressin 0.02 units/min, normal saline at 20 cc/h, IV hydrocortisone 50 mg every 6 hours, and Kefzol day 5. Labs are reviewed WBCs 17.4, hemoglobin 8.2, hematocrit 25.2, platelets 53, sodium 142, potassium 3.7, chloride 116, CO2 23, BUN 39, creatinine 1.18, gluco se 258. Ionized calcium 4.4. Magnesium 1.8. Today's chest x-ray is unchanged. Wound culture gram stain of the right knee preliminary report shows rare gram positive cocci. Objective - Vital Signs Vital signs: Vital Signs Temp 98.2 F 10/12/24 08:00 Pulse 87 10/12/24 10:15 Resp 30 H 10/12/24 10:15 BP 122/59 10/12/24 10:15 Pulse Ox 98 10/12/24 10:15 FiO2 50 10/12/24 10:30 Intake & Output 10/11/24 10/12/24 10/12/24 18:59 06:59 18:59 Intake Total 3772.778 2250.780 602.426 Output Total 1250 655 240 Balance 299.844 577.780 362.426 Weight 92 kg 93.1 kg Intake: IV 916 466 292 0.9 kvo 276 216 12 Calcium Gluconate in NaCl 100 1 gm In Saline 1 100ml. bag @ 100 mls/hr IVPB ONCE ONE Rx#:[id number] Calcium Gluconate in NaCl 100 2 gm In Saline 1 100ml. bag @ 100 mls/hr IVPB ONCE ONE Rx#:[id number] Sodium Chloride 0.9% 1, 490 150 80 000 ml @ 20 mls/hr IV . Q24H [facility] Rx#:[id number] ceFAZolin 2 gm In Sodium 50 100 100 Chloride 0.9% 50 ml @ 100 mls/hr IVPB Q8HR [facility] Rx# :[id number] Intake, IV Titration 463.844 296.780 120.426 Amount Norepinephrine 8 mg In 241.979 83.959 1.734 Sodium Chloride 0.9% 250 ml @ 0.14 MCG/KG/MIN 20. 236 mls/hr IV .[id number] [facility] Rx#:[id number] Vasopressin 60 unit In 153 51.306 Sodium Chloride 0.9% 150 ml @ 0.03 UNITS/MIN 4.59 mls/hr IV .Q24H [facility] Rx#: [id number] propofoL 1,000 mg In 68.865 212.821 67.386 Empty Bag 1 bag @ 15 MCG/ KG/MIN 7.704 mls/hr IV . [id number] [facility] Rx#:[id number] Tube Feeding 140 380 160 Other 30 90 30 Output: Urine 1250 655 240 Other: Voiding Method Indwelling Catheter Indwelling Catheter Indwelling Catheter ABP, PAP, CO, CI - Last Documented Arterial Blood Pressure 147/48 - Exam General: Intubated and sedated. Right radial arterial line present. HEENT: Head exam is unremarkable. EOMI bilaterally. ACs patent. Nares patent. Lungs: Mechanical bilateral breath sounds present; no rhonchi, wheezes, or rales. Heart: Rate and rhythm are regular. S1-S2 present. No murmur/rub/gallops. Abdomen: Soft, nontender, nondistended. Bowel sounds present. Extremities: 1+ edema present in all extremities. Neuro: Unable to assess due to intubation/sedation. - Labs CBC & Chem 7: 10/12/24 03:36 10/12/24 15:28 Labs: Abnormal Lab Results - Last 24 Hours (Table) 10/11/24 10/11/24 10/11/24 Range/Units 11:48 16:22 19:50 WBC (3.8-10.6) k/uL RBC (4.30-5.90) m/uL Hgb (13.0-17.5) gm/dL Hct (39.0-53.0) % MCV (80.0-100.0) fL MCH (25.0-35.0) pg Plt Count (150-450) k/uL Neutrophils # (1.3-7.7) k/uL Lymphocytes # (1.0-4.8) k/uL Macrocytosis ABG pO2 (83-108) mmHg ABG Total CO2 (19-24) mmol/L Hemoglobin (13.0-17.5) gm/dL Chloride (98-107) mmol/L BUN (9-20) mg/dL Glucose (74-99) mg/dL POC Glucose (mg/dL) 232 H 194 H 252 H (70-110) mg/dL Calcium (8.4-10.2) mg/dL Ionized Calcium Joshua (4.5-5.3) mg/dL Total Bilirubin (0.2-1.3) mg/dL Alkaline Phosphatase (38-126) U/L Total Protein (6.3-8.2) g/dL Albumin (3.5-5.0) g/dL 10/11/24 10/12/24 10/12/24 Range/Units 23:23 03:34 03:36 WBC 17.4 H (3.8-10.6) k/uL RBC 2.28 L (4.30-5.90) m/uL Hgb 8.2 L (13.0-17.5) gm/dL Hct 25.2 L (39.0-53.0) % MCV 110.7 H (80.0-100.0) fL MCH 36.2 H (25.0-35.0) pg Plt Count 53 L (150-450) k/uL Neutrophils # 15.6 H (1.3-7.7) k/uL Lymphocytes # 0.8 L (1.0-4.8) k/uL Macrocytosis Marked A ABG pO2 (83-108) mmHg ABG Total CO2 (19-24) mmol/L Hemoglobin (13.0-17.5) gm/dL Chloride (98-107) mmol/L BUN (9-20) mg/dL Glucose (74-99) mg/dL POC Glucose (mg/dL) 229 H 294 H (70-110) mg/dL Calcium (8.4-10.2) mg/dL Ionized Calcium Joshua (4.5-5.3) mg/dL Total Bilirubin (0.2-1.3) mg/dL Alkaline Phosphatase (38-126) U/L Total Protein (6.3-8.2) g/dL Albumin (3.5-5.0) g/dL 10/12/24 10/12/24 10/12/24 Range/Units 03:36 03:36 05:45 WBC (3.8-10.6) k/uL RBC (4.30-5.90) m/uL Hgb (13.0-17.5) gm/dL Hct (39.0-53.0) % MCV (80.0-100.0) fL MCH (25.0-35.0) pg Plt Count (150-450) k/uL Neutrophils # (1.3-7.7) k/uL Lymphocytes # (1.0-4.8) k/uL Macrocytosis ABG pO2 74 L (83-108) mmHg ABG Total CO2 26 H (19-24) mmol/L Hemoglobin 8.0 L (13.0-17.5) gm/dL Chloride 116 H (98-107) mmol/L BUN 39 H (9-20) mg/dL Glucose 258 H (74-99) mg/dL POC Glucose (mg/dL) (70-110) mg/dL Calcium 6.8 L (8.4-10.2) mg/dL Ionized Calcium Joshua 4.4 L (4.5-5.3) mg/dL Total Bilirubin 1.8 H (0.2-1.3) mg/dL Alkaline Phosphatase 444 H (38-126) U/L Total Protein 4.7 L (6.3-8.2) g/dL Albumin 1.9 L (3.5-5.0) g/dL 10/12/24 Range/Units 08:01 WBC (3.8-10.6) k/uL RBC (4.30-5.90) m/uL Hgb (13.0-17.5) gm/dL Hct (39.0-53.0) % MCV (80.0-100.0) fL MCH (25.0-35.0) pg Plt Count (150-450) k/uL Neutrophils # (1.3-7.7) k/uL Lymphocytes # (1.0-4.8) k/uL Macrocytosis ABG pO2 (83-108) mmHg ABG Total CO2 (19-24) mmol/L Hemoglobin (13.0-17.5) gm/dL Chloride (98-107) mmol/L BUN (9-20) mg/dL Glucose (74-99) mg/dL POC Glucose (mg/dL) 356 H (70-110) mg/dL Calcium (8.4-10.2) mg/dL Ionized Calcium Joshua (4.5-5.3) mg/dL Total Bilirubin (0.2-1.3) mg/dL Alkaline Phosphatase (38-126) U/L Total Protein (6.3-8.2) g/dL Albumin (3.5-5.0) g/dL Microbiology - Last 24 Hours (Table) 10/10/24 20:45 Gram Stain - Preliminary Knee - Right Wound Culture - Preliminary 10/09/24 05:12 Blood Culture - Preliminary Blood 10/08/24 06:16 Blood Culture - Preliminary Blood Assessment and Plan Assessment: 1. Chronic alcohol abuse with acute alcohol withdrawal syndrome; [facility] protocol in place; patient remains on thiamine and Protonix. 2. Rhabdomyolysis secondary to immobility due to fall. Improving with IV hydration. We will continue to monitor strict STERLIGN's, daily weights, renal function electrolytes 3. Acute kidney injury secondary to ATN due to to septic shock and rhabd omyolysis. Improving; monitor renal function electrolytes; avoid nephrotoxins and hypotension. 4. Relative adrenal insufficiency. On IV hydrocortisone. 5. Transaminitis. Improving. 6. Streptococcus group A bacteremia. Currently on cefazolin per ID recommendation; continue to monitor CBC, CRP and procalcitonin. 7. Hyponatremia, likely hypovolemic; resolved. 8. Type 1 diabetes mellitus; we will continue to monitor Accu-Cheks before every meal and at bedtime with insulin sliding scale. 9. History of coronary artery disease with previous catheterization and stent placement. 10. Hypertension; currently not on any antihypertensive medication.
[2024-10-12 19:29] LABS: Glucose,Whole Blood 333 mg/dL (70-110)
[2024-10-12] MEDS: INSULIN DETEMIR (LEVEMIR) 100 UNIT/ML SYR SQ SCH (21:26)
--- NOTE | 2024-10-12 22:00 | P.OP ---
Date of Procedure: 10/10/24 Preoperative Diagnosis: 1. RIGHT KNEE SEPTIC ARTHRITIS 2. COMPLEX MEDICAL PATIENT Postoperative Diagnosis: 1. RIGHT KNEE SEPTIC ARTHRITIS 2. COMPLEX MEDIAL PATIENT 3. MEDIAL MENISCAL TEAR 4. LATERAL MENISCAL TEAR 5. MEDIAL COMPARTMENT GRADE IV CHONDROMALACIA 6. LATERAL COMPARTMENT GRADE III CHONDROMALACIA 7. PATELLOFEMORAL GRADE II-III CHONDROMALACIA 8. SYNOVITIS 9. FOREIGN BODY FREE FLOATING. Procedure(s) Performed: 1. DIAGNOSTIC ARTHROSOPY WITH ARTHROSCOPIC LAVACE AND DEBRIDEMENT OF RIGHT KNEE 2. PARTIAL MEDIAL MENISECTOMY 3. MEDIAL FEMORAL CONDYLE AND MEDIAL TIBIAL PLATEAU CHONDROPLASTY 4. PARTIAL LATERAL MENISECTOMY 5. LATERAL TIBIAL PLATEAU CHONDROPLASTY 6. PATELLOFEMORAL CHONDROPLASTY 7. REMOVAL OF FREE FOREIGN BODY (CARTILAGE) 8. SYNOVECTOMY, MINOR Implants: NONE Anesthesia: VINITAA Surgeon: Herbert Funk Estimated Blood Loss (ml): 5 IV fluids (ml): 1,200 Urine output (ml): 0 Pathology: other (X2 CULTURES RIGHT KNEE SYNOVIAL FLUID) Condition: stable Disposition: ICU (INTUBATED) Indications for Procedure: 64 yo male who presented after being found down by his family. Hx of ETOH abuse. Found to have bacteremia, sepsis and multisystem organ dysfunction. Was found after several days in the hospital to have a swollen painful right knee. Pt has been essentially non responsive since being in hospital but can ilicit pain response. Knee aspirate was found to be purulent and a long discussion was had with the family given his severe status and potential demise from surgical interventions vs demise from non-surgicla intervention. After discussing the risks and benefits at length, they ultimately, deciding in his best interest and in alignment with what their best assessment of what he would want, have decided to proceed with arthroscopioc lavage of the right knee. Description of Procedure: Right knee arthroscopic lavage and debridement The patient was seen and examined in the [ICU]. All preoperative protocols were followed. Informed consent was obtained, risks and benefits of the procedure were discussed at length. Risks including bleeding infection damage to the surrounding tissue and risk of reoperation were discussed with the patient and their family.. Risk of anesthesia up to and including was discussed with the patient. These are outlined in the risk reviewed. They were willing to accept these risks and all of the risks of surgery. The patient was given a weight-based dose of antibiotics in the form of cefepime from the floor. The patient was seen and evaluated by the anesthesia team who deemed them fit for surgery. The site was marked, the patient was willing to proceed with the procedure. The patient was transferred to the operative suite by the Department of anesthesia. They were then drifted off to sleep by the department of anesthesia andGETA anesthesia was used. Once adequate anesthesia had been obtained the patient was carefully transferred to the operative bed. All bony prominences were padded accordingly. SCDs were placed on the nonoperative lower extremities. Arms were well padded. The patients right knee was placed in an arthroscopic knee chanel and the non operative leg was padded under his popliteal region. The leg of the bed was then dropped and the patient's non operative leg was secured with a safety strap. Tourniquet was placed on the operative upper thigh region. Preoperative briefing was done with the operative team and everyone was ready for the procedure to start. The patient's right leg was then prepped and draped in the normal sterile fashion. Timeout was then performed and all parties in agreement with the procedure to be performed. Skin charles was made on the lateral aspect for the lateral portal. Trochar for the scope was introduced and legs taken into extension. The camera was white balanced and inserted. Diagnostic arthroscopy ensued. There was an initial return of gross purulent material from the trochar and this was cultured and sent. This material was expelled from the knee before the scope was placed. During diagnostic arthroscopy then, multiple areas of purulence were seen and pockets found in the lateral gutters, suprapatellar pouch and underneath the medial and lateral meniscus. The patient was found to also have a complex medial meniscus tear from the posterior horn to the anterior horn which was delaminated and split radially and horizontally. There was grade IV chondromalacia of the MFC and the MTP. ACL and PCL were intact. Trochlea intact with grade I chondromalacia. Patella was found to have grade II chondromalacia. Lateral compartment found to have a complex degenerative meniscus tear mid body as well as grade III chondromalacia of the LFC and LTP. Gutter on the medial side showed a foreign body of likely cartilaginous material and this was removed with a kingfisher. We then used an 18g spinal needle to localize the medial portal. The portal was then made and shaver introduced. Lavage and shaving was done of the synovium, chondroplasty done of the MFC, MTP and lateral compartment LFC and LTP. The ACL and PCL were tested. LIgamentum cleaned from the anterior. Straight and up bite meniscal biters were then used to remove medial and lateral meniscal tears and obtain a stable rim of meniscus. Shaver was then used to clean the areas of any debris and meniscal materials. This was repeated on the lateral side. Synovectomy was done with a shaver. Continuous lavage was done through the case. All together 12 L of abx and NSS was run through the knee. Once this was accomplished as well as the debridement the knee was lavaged the scope was removed. The portals were loosely closed with nylon stitch and the knee was injected with 0.25% marcaine 30cc. The wounds were then dressed with adaptic, 4x4, abd and wrapped with webril. This was then wrapped with a double 4 marlon to prevent swelling. The patient was then transferred off the operative bed to his ICU bed. He remained intubated but was stable through the case without any issues or event. He was then transferred back to the ICU in stable condition having tolerated the procedure well without any complications.
[2024-10-12 23:26] LABS: Glucose,Whole Blood 330 mg/dL (70-110)
[2024-10-13] MEDS: POTASSIUM CHLORIDE 10 MEQ in WATER FOR INJECTION 1 100ML.BAG IVPB SCH (01:01)
[2024-10-13 03:57] LABS: Glucose,Whole Blood 319 mg/dL (70-110)
[2024-10-13 04:05] LABS: Ionized Calcium 4.5 mg/dL (4.5-5.3)
[2024-10-13 04:16] LABS: ALT 10 U/L (4-49); AST 44 U/L (17-59); African American GFR (CKD) 76 (>60 ml/min/1.73 sqM); Albumin 2.1 g/dL (3.5-5.0); Alkaline Phosphatase 555 U/L (38-126); Anion Gap 1 mmol/L; Blood Urea Nitrogen 47 mg/dL (9-20); Calcium 7.3 mg/dL (8.4-10.2); Carbon Dioxide 26 mmol/L (22-30); Chloride 117 mmol/L (98-107); Glucose 281 mg/dL (74-99); Non-African American GFR(CKD) 66 (>60 ml/min/1.73 sqM); Potassium 4.1 mmol/L (3.5-5.1); Sodium 144 mmol/L (137-145); Total Bilirubin 0.8 mg/dL (0.2-1.3); Total Protein 5.1 g/dL (6.3-8.2)
[2024-10-13 04:22] LABS: Basophils # (A) 0.1 k/uL (0-0.2); Basophils % (A) 0 %; Eosinophils % (A) 0 %; HCT 25.8 % (39.0-53.0); HGB 8.2 gm/dL (13.0-17.5); Hypochromasia Moderate; Lymphocytes % (A) 6 %; MCH 35.6 pg (25.0-35.0); MCHC 31.7 g/dL (31.0-37.0); MCV 112.4 fL (80.0-100.0); Macrocytosis Marked; Mean Platelet Volume 11.3; Monocytes # (A) 0.7 k/uL (0-1.0); Monocytes % (A) 4 %; Neutrophils # (A) 16.5 k/uL (1.3-7.7); Neutrophils % (A) 88 %; RDW 13.9 % (11.5-15.5); WBC 18.8 k/uL (3.8-10.6)
[2024-10-13 04:23] LABS: Platelet Count 78 k/uL (150-450)
[2024-10-13 06:03] LABS: ABG Base Excess 1.8 mmol/L; ABG HCO3 27 mmol/L (21-25); ABG Oxygen Saturation 95.1 % (94-97); ABG PCO2 41 mmHg (35-45); ABG PH 7.42 (7.35-7.45); ABG PO2 72 mmHg (83-108); ABG TCO2 28 mmol/L (19-24); Allen Test Performed? Yes
--- NOTE | 2024-10-13 06:37 | XR ---
EXAMINATION TYPE: XR chest 1V portable DATE OF EXAM: 10/13/2024 COMPARISON: 10/12/2024 HISTORY: Tube placement TECHNIQUE: Single frontal view of the chest is obtained. FINDINGS: The ET tube is 5.9 cm above the marvel.. The retrocardiac opacity is unchanged likely combination of pleural effusion and atelectasis or pneum onia. There is increasing opacification in the right lung base suspicious for pneumonia. The heart size is normal for the technique. The pulmonary vasculature is not congested. There is no pneumothorax. The osseous structures IMPRESSION: 1. ET tube 5.9 cm above the marvel. NG tube within the stomach. 2. Bibasilar acute cardiopulmonary process, stable on the left and increasing on the right. [facility], , 10/13/2024 6:34 AM
[2024-10-13 08:44] LABS: Glucose,Whole Blood 340 mg/dL (70-110)
--- NOTE | 2024-10-13 10:00 | P.PN ---
Subjective Progress Note Date: 10/13/24 Principal diagnosis: Alcohol withdrawal syndrome. Patient is a 64-year-old male who is being seen in the ICU due to hypovolemic shock and rhabdomyolysis. He is a poor historian due to altered mental status and unresponsiveness. All history is obtained from the chart. He initially presented to the emergency department after being found facedown on the ground with a contusion to his forehead and abrasions to his knee and left toes. She stated that he had been having nausea and vomiting for a day prior to being found down. He was noted to have diarrhea as well. Patient is a daily drinker and consumes about a fifth per day according to the notes he has not drank for the 2 days prior to this admission. He also has a history of type 1 diabetes mellitus. Initial EKG showed sinus tachycardia. Head/cervical spine CT showed no acute intracranial process and no acute fracture or traumatic subluxation of the cervical spine. Initial chest x-ray showed right middle lobe scarring/atelectasis, no acute pulmonary process. He had received 4 L of normal saline. Initial labs showed CK level of 18,113, WBCs 10.7, hemoglobin 12.5, sodium 126, creatinine 3.18 lactic acid 6.9, AST 401, ALT 65. Preliminary blood culture showed gram-positive cocci and patient was started on vancomycin. 10/07/2024. He is maintained on a bicarb drip as well as normal saline. He remains unresponsive to verbal stimulation. He is maintained on CIWA protocol. Labs today: WBCs 5.1, hemoglobin 11.6, sodium 126, potassium 3.8, BUN 53, creatinine 3.12, ammonia <9. Progress note dated October 08, 2024. 64-year-old male seen in room 252. I was notified by the nurse at nighttime, that the patient's blood pressure continued to drop. We bumped up his dose of norepinephrine, and gave him a liter of fluid. In addition, his respiratory status was marginal, and the blood gas was ordered. The patient is currently on 6 L of oxygen. The patient was admitted on October 06. He is getting saline at 150 cc an hour, and Precedex at 0.4 mcg/kg/h. His norepinephrine is running at 31 mcg/min. There is staphylococci in his blood. I have asked the nurses to add Ativan Dilaudid and Haldol to his regimen, to try to wean him off the dexmedetomidine. White count of 9.1, hemoglobin hematocrit 29, platelet count 88,000. Sodium 131, potassium 3, chloride 92, CO2 32, BUN 50, creatinine 2.34. Glucose is 167. Calcium is 6.3. CK was 8796. AST is 507. ALT is 136. Albumin is 2.2. Blood cultures from the were positive for Streptococcus group A. Chest x-ray shows bilateral effusions, small, with low lung volumes. 10/09/2024. Patient seen as a followup. No acute events overnight. He is currently on 6 L of oxygen. He was on dextrose 5% - 0.9% NaCl, blood sugars have been in the mid to high 200s. He is receiving Kefzol for streptococcal group A bacteremia. Precedex has been turned off. Levophed is 0.3 mcg/kg/min. WBCs 12.3, hemoglobin 9.7, hematocrit 27.7, platelets 48. Sodium 133, potassium 3.7, chloride 105, CO2 19, BUN 42, creatinine 1.62. Glucose 267. Calcium 6.4. CK 3888. AST 323, ALT 78. Albumin 2.2. Today's chest x-ray showed cardiomegaly, pulmonary vascular congestion, and bilateral pleural effusions. 10/10/2024. Patient is being seen as a followup in the ICU. Overnight he went into A-fib with rapid ventricular rate, was started on an amiodarone drip at 1mg/min, and converted back to normal sinus rhythm. His pressures remain in the 100s/40s and pulses are He is currently on 15 L high flow oxygen. He is on normal saline at 150 cc/h. He is maintained on Kefzol for streptococcal group A bactermia, today is day 3. Levophed is at 0.11 mcg/kg/min, vasopressin at 0.02 mcg/kg/min. WBCs 16.4, hemoglobin 9.8, hematocrit 29.6, platelets 38. Sodium 138, potassium 3.5, chloride 112, CO2 23, BUN 35, creatinine 1.26, glucose 164. Ionized calcium 4.1. CK 988. AST 154, ALT 36. Cortisol 32. TSH 4.3830. In addition, he removed his NG tube overnight. Today's chest x-ray is unchanged from previous. He remains lethargic and barely responsive to verbal stimulation. 10/11/2024. Patient is seen in the ICU. He underwent arthroscopic lavage of the right knee yesterday evening and returned to the ICU intubated on mechanical ventilation. He is currently on assist-control mode with rate 18, tidal volume 450, FiO2 70%, PEEP 5. ABG shows pH 7.34, pCO2 37, pO2 95. He is maintained on vasopressin 0.02 units/min, Levophed 0.14 mcg/kg/min, normal saline at 100 cc/h, and Kefzol day 4. WBCs 18.1, hemoglobin 8.8, hematocrit 27.6, platelets 52, sodium 140, potassium 3.9, chloride 115, CO2 17, BUN 35, creatinine 1.08, glucose 191, creatinine kinase 215. Calcium 6.5. Magnesium 1.6. He began IV hydrocortisone 50 mg every 6 hours yesterday. Liver ultrasound performed yesterday revealed no acute process. Chest x-ray today is unchanged from previous. 10/12/2024. Patient is evaluated in the ICU. He remains intubated on [facility] anical ventilation on assist-control mode with rate 18, tidal volume 450, FiO2 50%, PEEP 5. ABG shows pH 7.42, pCO2 38, pO2 74. His RSBI yesterday was 110 and he was unable to follow commands so he could not be extubated. He is maintained on vasopressin 0.02 units/min, normal saline at 20 cc/h, IV hydrocortisone 50 mg every 6 hours, and Kefzol day 5. WBCs 17.4, hemoglobin 8.2, hematocrit 25.2, platelets 53, sodium 142, potassium 3.7, chloride 116, CO2 23, BUN 39, creatinine 1.18, glucose 258. Ionized calcium 4.4. Magnesium 1.8. Today's chest x-ray is unchanged. Wound culture gram stain of the right knee preliminary report shows rare gram positive cocci. Progress note dated October 13, 2024. 64-year-old male seen in the intensive care unit, room 252. The patient remains on the mechanical ventilator. He is on volume assist-control, rate 18, tidal volume 450, FiO2 50%, PEEP of 5. Blood gases show pO2 72, pCO2 41, and pH is 7.42. The patient is on propofol at 35 mcg/kg/min, saline at 20 cc an hour, and vital high-protein at 60, with goal of 70. Yesterday, he had a brief s pontaneous breathing trial, and he did poorly. Today he will again have a spontaneous breathing trial, of pressure support of 5 and CPAP of 5. He continues on Ancef. White count 18.8, hemoglobin 8.2, hematocrit 25.8, platelet count 78,000. Sodium 144, potassium 4.1, chlorides 117, CO2 26, BUN 47, creatinine 1.18. Glucose is 340. Albumin is 2.1. Previous blood cultures from October 06 show group A streptococci. Chest x-ray shows bibasilar infiltrates. Objective - Vital Signs Vital signs: Vital Signs Temp 99.2 F 10/13/24 04:00 Pulse 89 10/13/24 08:35 Resp 22 10/13/24 07:15 BP 129/72 10/13/24 07:15 Pulse Ox 97 10/13/24 07:15 FiO2 50 10/13/24 08:17 Intake & Output 10/12/24 10/13/24 10/13/24 18:59 06:59 18:59 Intake Total 6902.885 5805.264 117.005 Output Total 1215 995 274 Balance 122.655 511.264 -156.995 Weight 92.9 kg Intake: IV 476 596 46 Calcium Gluconate in NaCl 100 1 gm In Saline 1 100ml. bag @ 100 mls/hr IVPB ONCE ONE Rx#:[id number] Potassium Chloride 10 meq 200 In Water For Injection 1 100ml.bag @ 100 mls/hr IVPB Q1H IPTO Rx#: [id number] Pressure Bag 36 36 6 Sodium Chloride 0.9% 1, 240 160 40 000 ml @ 20 mls/hr IV . Q24H PITO Rx#:[id number] ceFAZolin 2 gm In Sodium 100 200 Chloride 0.9% 50 ml @ 100 mls/hr IVPB Q8HR PITO Rx# :[id number] Intake, IV Titration 231.655 200.264 71.005 Amount Norepinephrine 8 mg In 8.454 32.231 Sodium Chloride 0.9% 250 ml @ 0.14 MCG/KG/MIN 20. 236 mls/hr IV .[id number] PITO Rx#:[id number] Vasopressin 60 unit In 52.454 Sodium Chloride 0.9% 150 ml @ 0.03 UNITS/MIN 4.59 mls/hr IV .Q24H PITO Rx#: [id number] propofoL 1,000 mg In 170.747 168.033 71.005 Empty Bag 1 bag @ 15 MCG/ KG/MIN 7.704 mls/hr IV . [id number] PITO Rx#:[id number] Oral 60 Tube Feeding 480 620 Other 90 90 Output: Urine 1215 995 274 Other: Voiding Method Indwelling Catheter Indwelling Catheter ABP, PAP, CO, CI - Last Documented Arterial Blood Pressure 156/55 - Exam Sedated, with an orally placed endotracheal tube. HEENT examination is grossly unremarkable. Neck supple. Full range of motion. No adenopathy thyromegaly or neck vein distention. Cardiovascular examination reveals regular rhythm rate. S1-S2 normal. No S3 or S4. No discernible murmur noted. Lungs reveal mild scattered rhonchi. No wheezes or crackles. Breath sounds equal. Abdomen soft, without bowel sounds. No masses or tenderness. Extremities are intact. No cyanosis clubbing or edema. Skin reveals multiple abrasions and bruises. Neurologic examination cannot be currently evaluated. - Labs CBC & Chem 7: 10/13/24 03:52 10/13/24 03:52 Labs: Abnormal Lab Results - Last 24 Hours (Table) 10/12/24 10/12/24 10/12/24 Range/Units 10:00 11:51 15:28 WBC (3.8-10.6) k/uL RBC (4.30-5.90) m/uL Hgb (13.0-17.5) gm/dL Hct (39.0-53.0) % MCV (80.0-100.0) fL MCH (25.0-35.0) pg Plt Count (150-450) k/uL Neutrophils # (1.3-7.7) k/uL Macrocytosis ABG pO2 (83-108) mmHg ABG HCO3 (21-25) mmol/L ABG Total CO2 (19-24) mmol/L Hemoglobin (13.0-17.5) gm/dL Potassium 3.4 L (3.5-5.1) mmol/L Chloride (98-107) mmol/L BUN (9-20) mg/dL Glucose (74-99) mg/dL POC Glucose (mg/dL) 322 H (70-110) mg/dL Calcium (8.4-10.2) mg/dL Alkaline Phosphatase (38-126) U/L Total Protein (6.3-8.2) g/dL Albumin (3.5-5.0) g/dL Vitamin D 25-Hydroxy 26.5 L (30.0-100.0) ng/mL 10/12/24 10/12/24 10/12/24 Range/Units 16:05 19:27 23:24 WBC (3.8-10.6) k/uL RBC (4.30-5.90) m/uL Hgb (13.0-17.5) gm/dL Hct (39.0-53.0) % MCV (80.0-100.0) fL MCH (25.0-35.0) pg Plt Count (150-450) k/uL Neutrophils # (1.3-7.7) k/uL Macrocytosis ABG pO2 (83-108) mmHg ABG HCO3 (21-25) mmol/L ABG Total CO2 (19-24) mmol/L Hemoglobin (13.0-17.5) gm/dL Potassium (3.5-5.1) mmol/L Chloride (98-107) mmol/L BUN (9-20) mg/dL Glucose (74-99) mg/dL POC Glucose (mg/dL) 369 H 333 H 330 H (70-110) mg/dL Calcium (8.4-10.2) mg/dL Alkaline Phosphatase (38-126) U/L Total Protein (6.3-8.2) g/dL Albumin (3.5-5.0) g/dL Vitamin D 25-Hydroxy (30.0-100.0) ng/mL 10/13/24 10/13/24 10/13/24 Range/Units 03:52 03:52 03:55 WBC 18.8 H (3.8-10.6) k/uL RBC 2.30 L (4.30-5.90) m/uL Hgb 8.2 L (13.0-17.5) gm/dL Hct 25.8 L (39.0-53.0) % MCV 112.4 H (80.0-100.0) fL MCH 35.6 H (25.0-35.0) pg Plt Count 78 L (150-450) k/uL Neutrophils # 16.5 H (1.3-7.7) k/uL Macrocytosis Marked A ABG pO2 (83-108) mmHg ABG HCO3 (21-25) mmol/L ABG Total CO2 (19-24) mmol/L Hemoglobin (13.0-17.5) gm/dL Potassium (3.5-5.1) mmol/L Chloride 117 H (98-107) mmol/L BUN 47 H (9-20) mg/dL Glucose 281 H (74-99) mg/dL POC Glucose (mg/dL) 319 H (70-110) mg/dL Calcium 7.3 L (8.4-10.2) mg/dL Alkaline Phosphatase 555 H (38-126) U/L Total Protein 5.1 L (6.3-8.2) g/dL Albumin 2.1 L (3.5-5.0) g/dL Vitamin D 25-Hydroxy (30.0-100.0) ng/mL 10/13/24 10/13/24 Range/Units 05:59 08:43 WBC (3.8-10.6) k/uL RBC (4.30-5.90) m/uL Hgb (13.0-17.5) gm/dL Hct (39.0-53.0) % MCV (80.0-100.0) fL MCH (25.0-35.0) pg Plt Count (150-450) k/uL Neutrophils # (1.3-7.7) k/uL Macrocytosis ABG pO2 72 L (83-108) mmHg ABG HCO3 27 H (21-25) mmol/L ABG Total CO2 28 H (19-24) mmol/L Hemoglobin 8.0 L (13.0-17.5) gm/dL Potassium (3.5-5.1) mmol/L Chloride (98-107) mmol/L BUN (9-20) mg/dL Glucose (74-99) mg/dL POC Glucose (mg/dL) 340 H (70-110) mg/dL Calcium (8.4-10.2) mg/dL Alkaline Phosphatase (38-126) U/L Total Protein (6.3-8.2) g/dL Albumin (3.5-5.0) g/dL Vitamin D 25-Hydroxy (30.0-100.0) ng/mL Microbiology - Last 24 Hours (Table) 10/10/24 20:45 Anaerobic Culture - Preliminary Knee - Right 10/07/24 16:26 Blood Culture - Final Blood 10/10/24 20:45 Gram Stain - Preliminary Knee - Right Wound Culture - Preliminary 10/10/24 12:04 Anaerobic Culture - Preliminary Knee - Right 10/09/24 05:12 Blood Culture - Preliminary Blood Assessment and Plan Assessment: Chronic alcohol abuse, with acute alcohol withdrawal syndrome. Postop day #3, status post arthroscopy, with arthroscopic lavage and debridement of the right knee, partial medial meniscectomy and medial femoral condyle and medial tibial plateau chondroplasty. Intubation/mechanical ventilation, beginning on October 10, after having right knee surgery. Status post fall, with rhabdomyolysis, secondary to immobility. Acute kidney injury, with acute tubular necrosis, secondary to sepsis, and rhabdomyolysis. Streptococcal group A, bacteremia, with septic shock. Lactic acidosis, resolved. Hyponatremia. History of coronary artery disease, with previous catheterization and stent placement. Diabetes mellitus. Gastroesophageal reflux disease. Hyperlipidemia. Hypertension. History of myocardial infarction. History of osteoarthritis. Plan: Plan dated October 08, 2024. An arterial line was placed, at the right radial site. It was done by the resident. It was sutured in place. A sterile dressing was applied by the nurse. In addition, the patient was placed on oxygen therapy, given his blood gases showing room air hypoxemia. In addition, the patient remains on Precedex at 0.4 mcg/kg/h, although, I did asked the nurses to give the patient Ativan, Dilaudid, and Haldol, to try to get him off the dexmedetomidine. The patient's norepinephrine dose is increased to 31 mcg/min. I asked the nurse, to start vasopressin at 0.03 units/min. Labs, x-rays, and medications are reviewed. The patient's BUN and creatinine today were 50 and 2.34. Blood gases yesterday showed a pO2 of 56, pCO2 34, pH is 7.49. This blood gases consistent with toxemia, and respiratory alkalosis. The patient continues on Ancef, for his group A streptococcal sepsis. Plan dated October 13, 2024. The patient was given a daily interruption of sedation and a spontaneous breathing trial yesterday, October 12. He only lasted about 30 minutes. He had a high minute volume, and appeared very agitated. Will attempt that again today. He will be placed on pressor support of 5 and CPAP of 5. He continues on propofol at 35 mcg/kg/min, and saline at 20 cc an hour. He is getting nurse with vital high-protein at 60 cc an hour, with a goal of 70. Blood gases are reasonable with a pO2 72, pCO2 41, pH is 7.42. We will continue to follow make recommendations along the way. The patient does continue on Ancef. Labs, x- rays, and all medications are reviewed. Prognosis is guarded. Time with Patient: Greater than 30
--- NOTE | 2024-10-13 10:15 | P.PN ---
Progress Note - Text Progress Note Date: 10/12/24 (DELAYED CHARTING) Patient seen and examined he is vented sedated nursing is at bedside he seems more stable today however he is not following commands. Right knee is examined there is a wrap about the knee there is no overt swelling or increased swelling. Color is good palpable pulses distally compartments soft and compressible. No other issues related to the knee at this time. Would still recommend an favor imaging of the lumbar spine to rule out any other issues concerning for epidural abscess patient has a history of low back pain and low back issues of which have been ongoing however acutely got worse right before this episode of issue he has been bacteremic he is high risk for any type of epidural abscess secondary to his immunocompromise state alcoholism as well as his diabetes once the patient is stable for this we can review. Okay for range of motion and ambulation of t he right knee. Wrap can be taken down 10/13/2024 and wounds can be dressed with Band-Aids. Ice to the knee as needed for pain control elevation for swelling control. We will continue to follow this patient during his clinical course
--- NOTE | 2024-10-13 10:32 | P.PN ---
Subjective patient is seen for follow-up for acute kidney injury. Renal function has improved. Patient remains on the vent. Sedation is being decreased. Urine output at 40-75 mL an hour. Serum creatinine at 1.1 mg/dL. Objective - Vital Signs Vital signs: Vital Signs Temp 99.2 F 10/13/24 04:00 Pulse 89 10/13/24 08:35 Resp 22 10/13/24 07:15 BP 129/72 10/13/24 07:15 Pulse Ox 97 10/13/24 07:15 FiO2 50 10/13/24 08:17 Intake & Output 10/12/24 10/13/24 10/13/24 18:59 06:59 18:59 Intake Total 0553.570 0368.264 157.451 Output Total 1215 995 274 Balance 122.655 511.264 -116.549 Weight 92.9 kg Intake: IV 476 596 46 Calcium Gluconate in NaCl 100 1 gm In Saline 1 100ml. bag @ 100 mls/hr IVPB ONCE ONE Rx#:[id number] Potassium Chloride 10 meq 200 In Water For Injection 1 100ml.bag @ 100 mls/hr IVPB Q1H [facility] Rx#: [id number] Pressure Bag 36 36 6 Sodium Chloride 0.9% 1, 240 160 40 000 ml @ 20 mls/hr IV . Q24H [facility] Rx#:[id number] ceFAZolin 2 gm In Sodium 100 200 Chloride 0.9% 50 ml @ 100 mls/hr IVPB Q8HR [facility] Rx# :[id number] Intake, IV Titration 231.655 200.264 111.451 Amount Norepinephrine 8 mg In 8.454 32.231 Sodium Chloride 0.9% 250 ml @ 0.14 MCG/KG/MIN 20. 236 mls/hr IV .[id number] [facility] Rx#:[id number] Vasopressin 60 unit In 52.454 Sodium Chloride 0.9% 150 ml @ 0.03 UNITS/MIN 4.59 mls/hr IV .Q24H [facility] Rx#: [id number] propofoL 1,000 mg In 170.747 168.033 111.451 Empty Bag 1 bag @ 15 MCG/ KG/MIN 7.704 mls/hr IV . [id number] [facility] Rx#:[id number] Oral 60 Tube Feeding 480 620 Other 90 90 Output: Urine 1215 995 274 Other: Voiding Method Indwelling Catheter Indwelling Catheter ABP, PAP, CO, CI - Last Documented Arterial Blood Pressure 156/55 - Exam patient is sedated and on the vent. Examination of the heart S1 and S2 Examination of the lungs bilateral breath sounds are heard Abdomen is soft nontender Examination of lower extremities shows edema 1+. Discoloration of toes noted in left foot. - Labs CBC & Chem 7: 10/13/24 03:52 10/13/24 03:52 Labs: Abnormal Lab Results - Last 24 Hours (Table) 10/12/24 10/12/24 10/12/24 Range/Units 10:00 11:51 15:28 WBC (3.8-10.6) k/uL RBC (4.30-5.90) m/uL Hgb (13.0-17.5) gm/dL Hct (39.0-53.0) % MCV (80.0-100.0) fL MCH (25.0-35.0) pg Plt Count (150-450) k/uL Neutrophils # (1.3-7.7) k/uL Macrocytosis ABG pO2 (83-108) mmHg ABG HCO3 (21-25) mmol/L ABG Total CO2 (19-24) mmol/L Hemoglobin (13.0-17.5) gm/dL Potassium 3.4 L (3.5-5.1) mmol/L Chloride (98-107) mmol/L BUN (9-20) mg/dL Glucose (74-99) mg/dL POC Glucose (mg/dL) 322 H (70-110) mg/dL Calcium (8.4-10.2) mg/dL Alkaline Phosphatase (38-126) U/L Total Protein (6.3-8.2) g/dL Albumin (3.5-5.0) g/dL Vitamin D 25-Hydroxy 26.5 L (30.0-100.0) ng/mL 10/12/24 10/12/24 10/12/24 Range/Units 16:05 19:27 23:24 WBC (3.8-10.6) k/uL RBC (4.30-5.90) m/uL Hgb (13.0-17.5) gm/dL Hct (39.0-53.0) % MCV (80.0-100.0) fL MCH (25.0-35.0) pg Plt Count (150-450) k/uL Neutrophils # (1.3-7.7) k/uL Macrocytosis ABG pO2 (83-108) mmHg ABG HCO3 (21-25) mmol/L ABG Total CO2 (19-24) mmol/L Hemoglobin (13.0-17.5) gm/dL Potassium (3.5-5.1) mmol/L Chloride (98-107) mmol/L BUN (9-20) mg/dL Glucose (74-99) mg/dL POC Glucose (mg/dL) 369 H 333 H 330 H (70-110) mg/dL Calcium (8.4-10.2) mg/dL Alkaline Phosphatase (38-126) U/L Total Protein (6.3-8.2) g/dL Albumin (3.5-5.0) g/dL Vitamin D 25-Hydroxy (30.0-100.0) ng/mL 10/13/24 10/13/24 10/13/24 Range/Units 03:52 03:52 03:55 WBC 18.8 H (3.8-10.6) k/uL RBC 2.30 L (4.30-5.90) m/uL Hgb 8.2 L (13.0-17.5) gm/dL Hct 25.8 L (39.0-53.0) % MCV 112.4 H (80.0-100.0) fL MCH 35.6 H (25.0-35.0) pg Plt Count 78 L (150-450) k/uL Neutrophils # 16.5 H (1.3-7.7) k/uL Macrocytosis Marked A ABG pO2 (83-108) mmHg ABG HCO3 (21-25) mmol/L ABG Total CO2 (19-24) mmol/L Hemoglobin (13.0-17.5) gm/dL Potassium (3.5-5.1) mmol/L Chloride 117 H (98-107) mmol/L BUN 47 H (9-20) mg/dL Glucose 281 H (74-99) mg/dL POC Glucose (mg/dL) 319 H (70-110) mg/dL Calcium 7.3 L (8.4-10.2) mg/dL Alkaline Phosphatase 555 H (38-126) U/L Total Protein 5.1 L (6.3-8.2) g/dL Albumin 2.1 L (3.5-5.0) g/dL Vitamin D 25-Hydroxy (30.0-100.0) ng/mL 10/13/24 10/13/24 Range/Units 05:59 08:43 WBC (3.8-10.6) k/uL RBC (4.30-5.90) m/uL Hgb (13.0-17.5) gm/dL Hct (39.0-53.0) % MCV (80.0-100.0) fL MCH (25.0-35.0) pg Plt Count (150-450) k/uL Neutrophils # (1.3-7.7) k/uL Macrocytosis ABG pO2 72 L (83-108) mmHg ABG HCO3 27 H (21-25) mmol/L ABG Total CO2 28 H (19-24) mmol/L Hemoglobin 8.0 L (13.0-17.5) gm/dL Potassium (3.5-5.1) mmol/L Chloride (98-107) mmol/L BUN (9-20) mg/dL Glucose (74-99) mg/dL POC Glucose (mg/dL) 340 H (70-110) mg/dL Calcium (8.4-10.2) mg/dL Alkaline Phosphatase (38-126) U/L Total Protein (6.3-8.2) g/dL Albumin (3.5-5.0) g/dL Vitamin D 25-Hydroxy (30.0-100.0) ng/mL Microbiology - Last 24 Hours (Table) 10/10/24 20:45 Anaerobic Culture - Preliminary Knee - Right 10/07/24 16:26 Blood Culture - Final Blood 10/10/24 20:45 Gram Stain - Preliminary Knee - Right Wound Culture - Preliminary 10/10/24 12:04 Anaerobic Culture - Preliminary Knee - Right 10/09/24 05:12 Blood Culture - Preliminary Blood Assessment and Plan Assessment: 1. Acute kidney injury secondary to ATN secondary to septic shock and rhabdomyolysis. Creatinine 3.18 on admission and is improved to 1.1. Baseline creatinine near 1. No hydronephrosis noted on kidney ultrasound. 2. Rhabdomyolysis secondary to immobility. CK levels trending down. 3. Strep bacteremia on antibiotics. 4. Anion gap metabolic acidosis secondary to acute kidney injury and lactic acidosis. Now due to IV fluids. Status post bicarb drip. 5. Hyponatremia secondary to hypovolemia as well as acute kidney injury. Better. 6. Hypomagnesemia from poor intake and alcohol abuse. Replaced. 7. History of alcohol abuse. 8. Hypocalcemia, replaced. 25-hydroxy vitamin D was 26.5, started on supplementation. 9. Hypokalemia from poor intake. Replaced. Better. 10. A-fib with RVR status post amiodarone drip. 11. Volume overload. Plan: increase Lasix to 20 mg twice a day add vitamin D3
[2024-10-13 11:31] LABS: Glucose,Whole Blood 277 mg/dL (70-110)
[2024-10-13] MEDS: CHOLECALCIFEROL 25 MCG (1000 IU) TABLET PO SCH (12:29)
--- NOTE | 2024-10-13 12:47 | P.PN ---
Subjective Progress Note Date: 10/13/24 Principal diagnosis: Right Knee swelling Patient seen and examined this morning. Patient remains sedated on ventilator. Patient continues to remain stable and there is discussion of possibly weaning patient off of propofol and ventilation today. RN states that they will attempt MRI of the lumbar spine if the patient remains stable off vent. surgical incisions to the bilateral right knee, edges are well-approximated with sutures intact. Jeffery wrap and dressing has been taken down and incisions left open to air. We will continue to monitor patient progress and await MRI of the lumbar spine results. Objective - Vital Signs Vital signs: Vital Signs Temp 99.2 F 10/13/24 04:00 Pulse 89 10/13/24 08:35 Resp 22 10/13/24 07:15 BP 129/72 10/13/24 07:15 Pulse Ox 97 10/13/24 07:15 FiO2 50 10/13/24 08:17 Intake & Output 10/12/24 10/13/24 10/13/24 18:59 06:59 18:59 Intake Total 6737.125 2008.264 117.005 Output Total 1215 995 274 Balance 122.655 511.264 -156.995 Weight 92.9 kg Intake: IV 476 596 46 Calcium Gluconate in NaCl 100 1 gm In Saline 1 100ml. bag @ 100 mls/hr IVPB ONCE ONE Rx#:[id number] Potassium Chloride 10 meq 200 In Water For Injection 1 100ml.bag @ 100 mls/hr IVPB Q1H [facility] Rx#: [id number] Pressure Bag 36 36 6 Sodium Chloride 0.9% 1, 240 160 40 000 ml @ 20 mls/hr IV . Q24H [facility] Rx#:[id number] ceFAZolin 2 gm In Sodium 100 200 Chloride 0.9% 50 ml @ 100 mls/hr IVPB Q8HR [facility] Rx# :[id number] Intake, IV Titration 231.655 200.264 71.005 Amount Norepinephrine 8 mg In 8.454 32.231 Sodium Chloride 0.9% 250 ml @ 0.14 MCG/KG/MIN 20. 236 mls/hr IV .[id number] [facility] Rx#:[id number] Vasopressin 60 unit In 52.454 Sodium Chloride 0.9% 150 ml @ 0.03 UNITS/MIN 4.59 mls/hr IV .Q24H [facility] Rx#: [id number] propofoL 1,000 mg In 170.747 168.033 71.005 Empty Bag 1 bag @ 15 MCG/ KG/MIN 7.704 mls/hr IV . [id number] [facility] Rx#:[id number] Oral 60 Tube Feeding 480 620 Other 90 90 Output: Urine 1215 995 274 Other: Voiding Method Indwelling Catheter Indwelling Catheter ABP, PAP, CO, CI - Last Documented Arterial Blood Pressure 156/55 - Exam Right Knee: Inspection: Surgical incisions to the right knee, incisions are well- approximated with sutures intact. Jeffery wrap and dressings have been removed and incisions left open to air. Distally compartments soft and compressible. Sensation: DOMINIQUE Palpation: DOMINIQUE Range of motion: Patient does have limited ROM due to stiffness. Motor: DOMINIQUE Neurovascular: Radial pulse intact, 2+ bilaterally. Cap refill under 3 seconds in digits upper extremities. - Labs CBC & Chem 7: 10/13/24 03:52 10/13/24 03:52 Labs: Abnormal Lab Results - Last 24 Hours (Table) 10/12/24 10/12/24 10/12/24 Range/Units 10:00 11:51 15:28 WBC (3.8-10.6) k/uL RBC (4.30-5.90) m/uL Hgb (13.0-17.5) gm/dL Hct (39.0-53.0) % MCV (80.0-100.0) fL MCH (25.0-35.0) pg Plt Count (150-450) k/uL Neutrophils # (1.3-7.7) k/uL Macrocytosis ABG pO2 (83-108) mmHg ABG HCO3 (21-25) mmol/L ABG Total CO2 (19-24) mmol/L Hemoglobin (13.0-17.5) gm/dL Potassium 3.4 L (3.5-5.1) mmol/L Chloride (98-107) mmol/L BUN (9-20) mg/dL Glucose (74-99) mg/dL POC Glucose (mg/dL) 322 H (70-110) mg/dL Calcium (8.4-10.2) mg/dL Alkaline Phosphatase (38-126) U/L Total Protein (6.3-8.2) g/dL Albumin (3.5-5.0) g/dL Vitamin D 25-Hydroxy 26.5 L (30.0-100.0) ng/mL 10/12/24 10/12/24 10/12/24 Range/Units 16:05 19:27 23:24 WBC (3.8-10.6) k/uL RBC (4.30-5.90) m/uL Hgb (13.0-17.5) gm/dL Hct (39.0-53.0) % MCV (80.0-100.0) fL MCH (25.0-35.0) pg Plt Count (150-450) k/uL Neutrophils # (1.3-7.7) k/uL Macrocytosis ABG pO2 (83-108) mmHg ABG HCO3 (21-25) mmol/L ABG Total CO2 (19-24) mmol/L Hemoglobin (13.0-17.5) gm/dL Potassium (3.5-5.1) mmol/L Chloride (98-107) mmol/L BUN (9-20) mg/dL Glucose (74-99) mg/dL POC Glucose (mg/dL) 369 H 333 H 330 H (70-110) mg/dL Calcium (8.4-10.2) mg/dL Alkaline Phosphatase (38-126) U/L Total Protein (6.3-8.2) g/dL Albumin (3.5-5.0) g/dL Vitamin D 25-Hydroxy (30.0-100.0) ng/mL 10/13/24 10/13/24 10/13/24 Range/Units 03:52 03:52 03:55 WBC 18.8 H (3.8-10.6) k/uL RBC 2.30 L (4.30-5.90) m/uL Hgb 8.2 L (13.0-17.5) gm/dL Hct 25.8 L (39.0-53.0) % MCV 112.4 H (80.0-100.0) fL MCH 35.6 H (25.0-35.0) pg Plt Count 78 L (150-450) k/uL Neutrophils # 16.5 H (1.3-7.7) k/uL Macrocytosis Marked A ABG pO2 (83-108) mmHg ABG HCO3 (21-25) mmol/L ABG Total CO2 (19-24) mmol/L Hemoglobin (13.0-17.5) gm/dL Potassium (3.5-5.1) mmol/L Chloride 117 H (98-107) mmol/L BUN 47 H (9-20) mg/dL Glucose 281 H (74-99) mg/dL POC Glucose (mg/dL) 319 H (70-110) mg/dL Calcium 7.3 L (8.4-10.2) mg/dL Alkaline Phosphatase 555 H (38-126) U/L Total Protein 5.1 L (6.3-8.2) g/dL Albumin 2.1 L (3.5-5.0) g/dL Vitamin D 25-Hydroxy (30.0-100.0) ng/mL 10/13/24 10/13/24 Range/Units 05:59 08:43 WBC (3.8-10.6) k/uL RBC (4.30-5.90) m/uL Hgb (13.0-17.5) gm/dL Hct (39.0-53.0) % MCV (80.0-100.0) fL MCH (25.0-35.0) pg Plt Count (150-450) k/uL Neutrophils # (1.3-7.7) k/uL Macrocytosis ABG pO2 72 L (83-108) mmHg ABG HCO3 27 H (21-25) mmol/L ABG Total CO2 28 H (19-24) mmol/L Hemoglobin 8.0 L (13.0-17.5) gm/dL Potassium (3.5-5.1) mmol/L Chloride (98-107) mmol/L BUN (9-20) mg/dL Glucose (74-99) mg/dL POC Glucose (mg/dL) 340 H (70-110) mg/dL Calcium (8.4-10.2) mg/dL Alkaline Phosphatase (38-126) U/L Total Protein (6.3-8.2) g/dL Albumin (3.5-5.0) g/dL Vitamin D 25-Hydroxy (30.0-100.0) ng/mL Microbiology - Last 24 Hours (Table) 10/10/24 20:45 Anaerobic Culture - Preliminary Knee - Right 10/07/24 16:26 Blood Culture - Final Blood 10/10/24 20:45 Gram Stain - Preliminary Knee - Right Wound Culture - Preliminary 10/10/24 12:04 Anaerobic Culture - Preliminary Knee - Right 10/09/24 05:12 Blood Culture - Preliminary Blood Assessment and Plan Assessment: Postop day 3: Right knee arthroscopic lavage with partial medial femoral chondroplasty, synovectomy minor, and foreign body removal Plan: At this time we are awaiting MRI of the lumbar spine to rule out any concerns for epidural abscess. 2. Appreciate medical management 3. Pain management - Continue with current regimen, Utilize ice therapy 20min every hour as needed. 4. PT/OT - may begin to perform gentle range of motion exercises of the bilateral lower extremities 5. Appreciate consult.
--- NOTE | 2024-10-13 13:41 | P.PN ---
Subjective Progress Note Date: 10/13/24 64-year-old male who is being seen in the ICU due to hypovolemic shock and rhabdomyolysis. He is a poor historian due to altered mental status and unresponsiveness. All history is obtained from the chart. He initially presented to the emergency department after being found facedown on the ground with a contusion to his forehead and abrasions to his knee and left toes. She stated that he had been having nausea and vomiting for a day prior to being found down. He was noted to have diarrhea as well. Patient is a daily drinker and consumes about a fifth per day according to the notes he has not drank for the 2 days prior to this admission. He also has a history of type 1 diabetes mellitus. Initial EKG showed sinus tachycardia. Head/cervical spine CT showed no acute intracranial process and no acute fracture or traumatic subluxation of the cervical spine. Initial chest x-ray showed right middle lobe scarring/atelectasis, no acute pulmonary process. He had received 4 L of normal saline. Initial labs showed CK level of 18,113, WBCs 10.7, hemoglobin 12.5, sodium 126, creatinine 3.18 lactic acid 6.9, AST 401, ALT 65. Preliminary blood culture showed gram-positive cocci and patient was started on vancomycin. 24-hour interval change 10/12/2024 -- Patient is evaluated in the ICU. He remains intubated on mechanical ventilation - ABG shows pH 7.42, pCO2 38, pO2 74. - He is maintained on vasopressin 0.02 units/min, normal saline at 20 cc/h, IV hydrocortisone 50 mg every 6 hours, and Kefzol day 5. Labs are reviewed WBCs 17.4, hemoglobin 8.2, hematocrit 25.2, platelets 53, sodium 142, potassium 3.7, chloride 116, CO2 23, BUN 39, creatinine 1.18, gluco se 258. Ionized calcium 4.4. Magnesium 1.8. Today's chest x-ray is unchanged. Wound culture gram stain of the right knee preliminary report shows rare gram positive cocci. 10/13/2024 Patient is seen and evaluated in ICU at bedside; remains on the mechanical ventilator. Discussed with nursing staff. Concerns about elevated blood sugars; patient was placed on home dose of Lantus which did not help much - Blood gases show pO2 72, pCO2 41, and pH is 7.42. - The patient is on propofol at 35 mcg/kg/min, saline at 20 cc an hour, and vital high-protein at 60, with goal of 70. Yesterday, he had a brief spontaneous breathing trial, and he did poorly. Today he will again have a spontaneous breathing trial, of pressure support of 5 and CPAP of 5. He continues on Ancef. White count 18.8, hemoglobin 8.2, hematocrit 25.8, platelet count 78,000. Sodium 144, potassium 4.1, chlorides 117, CO2 26, BUN 47, creatinine 1.18. Glucose is 340. Albumin is 2.1. Previous blood cultures from October 06 show group A streptococci. Chest x-ray shows bibasilar infiltrates. -- For hyperglycemia I will increase dose of Lantus and add insulin lispro every 4 hours; continue with current sliding scale Objective - Vital Signs Vital signs: Vital Signs Temp 99.2 F 10/13/24 04:00 Pulse 89 10/13/24 08:35 Resp 22 10/13/24 07:15 BP 129/72 10/13/24 07:15 Pulse Ox 97 10/13/24 07:15 FiO2 50 10/13/24 08:17 Intake & Output 10/12/24 10/13/24 10/13/24 18:59 06:59 18:59 Intake Total 6964.358 2480.264 117.005 Output Total 1215 995 274 Balance 122.655 511.264 -156.995 Weight 92.9 kg Intake: IV 476 596 46 Calcium Gluconate in NaCl 100 1 gm In Saline 1 100ml. bag @ 100 mls/hr IVPB ONCE ONE Rx#:[id number] Potassium Chloride 10 meq 200 In Water For Injection 1 100ml.bag @ 100 mls/hr IVPB Q1H [facility] Rx#: [id number] Pressure Bag 36 36 6 Sodium Chloride 0.9% 1, 240 160 40 000 ml @ 20 mls/hr IV . Q24H [facility] Rx#:[id number] ceFAZolin 2 gm In Sodium 100 200 Chloride 0.9% 50 ml @ 100 mls/hr IVPB Q8HR [facility] Rx# :[id number] Intake, IV Titration 231.655 200.264 71.005 Amount Norepinephrine 8 mg In 8.454 32.231 Sodium Chloride 0.9% 250 ml @ 0.14 MCG/KG/MIN 20. 236 mls/hr IV .[id number] [facility] Rx#:[id number] Vasopressin 60 unit In 52.454 Sodium Chloride 0.9% 150 ml @ 0.03 UNITS/MIN 4.59 mls/hr IV .Q24H [facility] Rx#: [id number] propofoL 1,000 mg In 170.747 168.033 71.005 Empty Bag 1 bag @ 15 MCG/ KG/MIN 7.704 mls/hr IV . [id number] [facility] Rx#:[id number] Oral 60 Tube Feeding 480 620 Other 90 90 Output: Urine 1215 995 274 Other: Voiding Method Indwelling Catheter Indwelling Catheter ABP, PAP, CO, CI - Last Documented Arterial Blood Pressure 156/55 - Exam General: Intubated and sedated. Right radial arterial line present. HEENT: Head exam is unremarkable. EOMI bilaterally. ACs patent. Nares patent. Lungs: Mechanical bilateral breath sounds present; no rhonchi, wheezes, or rales. Heart: Rate and rhythm are regular. S1-S2 present. No murmur/rub/gallops. Abdomen: Soft, nontender, nondistended. Bowel sounds present. Extremities: 1+ edema present in all extremities. Neuro: Unable to assess due to intubation/sedation. - Labs CBC & Chem 7: 10/13/24 03:52 10/13/24 03:52 Labs: Abnormal Lab Results - Last 24 Hours (Table) 10/12/24 10/12/24 10/12/24 Range/Units 10:00 11:51 15:28 WBC (3.8-10.6) k/uL RBC (4.30-5.90) m/uL Hgb (13.0-17.5) gm/dL Hct (39.0-53.0) % MCV (80.0-100.0) fL MCH (25.0-35.0) pg Plt Count (150-450) k/uL Neutrophils # (1.3-7.7) k/uL Macrocytosis ABG pO2 (83-108) mmHg ABG HCO3 (21-25) mmol/L ABG Total CO2 (19-24) mmol/L Hemoglobin (13.0-17.5) gm/dL Potassium 3.4 L (3.5-5.1) mmol/L Chloride (98-107) mmol/L BUN (9-20) mg/dL Glucose (74-99) mg/dL POC Glucose (mg/dL) 322 H (70-110) mg/dL Calcium (8.4-10.2) mg/dL Alkaline Phosphatase (38-126) U/L Total Protein (6.3-8.2) g/dL Albumin (3.5-5.0) g/dL Vitamin D 25-Hydroxy 26.5 L (30.0-100.0) ng/mL 10/12/24 10/12/24 10/12/24 Range/Units 16:05 19:27 23:24 WBC (3.8-10.6) k/uL RBC (4.30-5.90) m/uL Hgb (13.0-17.5) gm/dL Hct (39.0-53.0) % MCV (80.0-100.0) fL MCH (25.0-35.0) pg Plt Count (150-450) k/uL Neutrophils # (1.3-7.7) k/uL Macrocytosis ABG pO2 (83-108) mmHg ABG HCO3 (21-25) mmol/L ABG Total CO2 (19-24) mmol/L Hemoglobin (13.0-17.5) gm/dL Potassium (3.5-5.1) mmol/L Chloride (98-107) mmol/L BUN (9-20) mg/dL Glucose (74-99) mg/dL POC Glucose (mg/dL) 369 H 333 H 330 H (70-110) mg/dL Calcium (8.4-10.2) mg/dL Alkaline Phosphatase (38-126) U/L Total Protein (6.3-8.2) g/dL Albumin (3.5-5.0) g/dL Vitamin D 25-Hydroxy (30.0-100.0) ng/mL 10/13/24 10/13/24 10/13/24 Range/Units 03:52 03:52 03:55 WBC 18.8 H (3.8-10.6) k/uL RBC 2.30 L (4.30-5.90) m/uL Hgb 8.2 L (13.0-17.5) gm/dL Hct 25.8 L (39.0-53.0) % MCV 112.4 H (80.0-100.0) fL MCH 35.6 H (25.0-35.0) pg Plt Count 78 L (150-450) k/uL Neutrophils # 16.5 H (1.3-7.7) k/uL Macrocytosis Marked A ABG pO2 (83-108) mmHg ABG HCO3 (21-25) mmol/L ABG Total CO2 (19-24) mmol/L Hemoglobin (13.0-17.5) gm/dL Potassium (3.5-5.1) mmol/L Chloride 117 H (98-107) mmol/L BUN 47 H (9-20) mg/dL Glucose 281 H (74-99) mg/dL POC Glucose (mg/dL) 319 H (70-110) mg/dL Calcium 7.3 L (8.4-10.2) mg/dL Alkaline Phosphatase 555 H (38-126) U/L Total Protein 5.1 L (6.3-8.2) g/dL Albumin 2.1 L (3.5-5.0) g/dL Vitamin D 25-Hydroxy (30.0-100.0) ng/mL 10/13/24 10/13/24 Range/Units 05:59 08:43 WBC (3.8-10.6) k/uL RBC (4.30-5.90) m/uL Hgb (13.0-17.5) gm/dL Hct (39.0-53.0) % MCV (80.0-100.0) fL MCH (25.0-35.0) pg Plt Count (150-450) k/uL Neutrophils # (1.3-7.7) k/uL Macrocytosis ABG pO2 72 L (83-108) mmHg ABG HCO3 27 H (21-25) mmol/L ABG Total CO2 28 H (19-24) mmol/L Hemoglobin 8.0 L (13.0-17.5) gm/dL Potassium (3.5-5.1) mmol/L Chloride (98-107) mmol/L BUN (9-20) mg/dL Glucose (74-99) mg/dL POC Glucose (mg/dL) 340 H (70-110) mg/dL Calcium (8.4-10.2) mg/dL Alkaline Phosphatase (38-126) U/L Total Protein (6.3-8.2) g/dL Albumin (3.5-5.0) g/dL Vitamin D 25-Hydroxy (30.0-100.0) ng/mL Microbiology - Last 24 Hours (Table) 10/10/24 20:45 Anaerobic Culture - Preliminary Knee - Right 10/07/24 16:26 Blood Culture - Final Blood 10/10/24 20:45 Gram Stain - Preliminary Knee - Right Wound Culture - Preliminary 10/10/24 12:04 Anaerobic Culture - Preliminary Knee - Right 10/09/24 05:12 Blood Culture - Preliminary Blood Assessment and Plan Assessment: 1. Chronic alcohol abuse with acute alcohol withdrawal syndrome; [facility] protocol in place; patient remains on thiamine and Protonix. 2. Rhabdomyolysis secondary to immobility due to fall. Improving with IV hydration. We will continue to monitor strict STERLING's, daily weights, renal function electrolytes 3. Acute kidney injury secondary to ATN due to to septic shock and rhabdomyolysis. Improving; monitor renal function electrolytes; avoid nephrotoxins and hypotension. 4. Relative adrenal insufficiency. On IV hydrocortisone. 5. Transaminitis. Improving. 6. Streptococcus group A bacteremia. Currently on cefazolin per ID recommendation; continue to monitor CBC, CRP and procalcitonin. 7. Hyponatremia, likely hypovolemic; resolved. 8. Type 1 diabetes mellitus; we will continue to monitor Accu-Cheks before every meal and at bedtime with insulin sliding scale. 9. History of coronary artery disease with previous catheterization and stent placement. 10. Hypertension; currently not on any antihypertensive medication.
[2024-10-13 17:17] LABS: Glucose,Whole Blood 211 mg/dL (70-110)
[2024-10-13] MEDS: INSULIN ASPART (NovoLOG) 100 UNIT/ML VIAL SQ SCH ×2 (17:29→20:15)
[2024-10-13 19:58] LABS: Glucose,Whole Blood 235 mg/dL (70-110)
[2024-10-13] MEDS: FUROSEMIDE 10 MG/ML 2 ML VIAL IV SCH (20:16)
--- NOTE | 2024-10-13 20:42 | P.PN ---
Subjective Progress Note Date: 10/13/24 Principal diagnosis: Reason for follow-up is Streptococcus agalactiae bacteremia This is a telehealth visit Patient is a 64-year-old male past medical history significant for diabetes mellitus hypertension hyperlipidemia [place] osteoarthritis coronary disease patient was brought into the hospital after apparently the patient was found to be facedown on the ground with contusion to his forehead and abrasion to his knee and some bloody toes, patient did have a fever subsequently blood cultures came back positive with Streptococcus agalactiae prompting this consultation. Patient noticed to have swelling of the right knee aspirate was purulent subsequently the patient did have a right knee washout completed by orthopedics on 10/10/2024. On today's evaluation that is 10/13/2024, the patient continues to be afebrile, the patient is on ventilator FiO2 is currently only to 50% patient is hemodynamically stable not requiring any pressor support no diarrhea or any othe r changes reported by nursing staff. Patient white count is 18.8 creatinine is 1.18 blood culture repeat has been negative so follow-up right knee culture negative Objective - Vital Signs Vital signs: Vital Signs Temp 99.2 F 10/13/24 04:00 Pulse 89 10/13/24 08:35 Resp 22 10/13/24 07:15 BP 129/72 10/13/24 07:15 Pulse Ox 97 10/13/24 07:15 FiO2 50 10/13/24 08:17 Intake & Output 10/12/24 10/13/24 10/13/24 18:59 06:59 18:59 Intake Total 0933.553 9576.264 157.451 Output Total 1215 995 274 Balance 122.655 511.264 -116.549 Weight 92.9 kg Intake: IV 476 596 46 Calcium Gluconate in NaCl 100 1 gm In Saline 1 100ml. bag @ 100 mls/hr IVPB ONCE ONE Rx#:[id number] Potassium Chloride 10 meq 200 In Water For Injection 1 100ml.bag @ 100 mls/hr IVPB Q1H [facility] Rx#: [id number] Pressure Bag 36 36 6 Sodium Chloride 0.9% 1, 240 160 40 000 ml @ 20 mls/hr IV . Q24H [facility] Rx#:[id number] ceFAZolin 2 gm In Sodium 100 200 Chloride 0.9% 50 ml @ 100 mls/hr IVPB Q8HR [facility] Rx# :[id number] Intake, IV Titration 231.655 200.264 111.451 Amount Norepinephrine 8 mg In 8.454 32.231 Sodium Chloride 0.9% 250 ml @ 0.14 MCG/KG/MIN 20. 236 mls/hr IV .[id number] [facility] Rx#:[id number] Vasopressin 60 unit In 52.454 Sodium Chloride 0.9% 150 ml @ 0.03 UNITS/MIN 4.59 mls/hr IV .Q24H [facility] Rx#: [id number] propofoL 1,000 mg In 170.747 168.033 111.451 Empty Bag 1 bag @ 15 MCG/ KG/MIN 7.704 mls/hr IV . [id number] [facility] Rx#:[id number] Oral 60 Tube Feeding 480 620 Other 90 90 Output: Urine 1215 995 274 Other: Voiding Method Indwelling Catheter Indwelling Catheter ABP, PAP, CO, CI - Last Documented Arterial Blood Pressure 156/55 - Exam Middle-age male intubated on the vent Right knee did have some swelling no redness was noticed - Labs CBC & Chem 7: 10/13/24 03:52 10/13/24 03:52 Labs: Abnormal Lab Results - Last 24 Hours (Table) 10/12/24 10/12/24 10/12/24 Range/Units 10:00 11:51 15:28 WBC (3.8-10.6) k/uL RBC (4.30-5.90) m/uL Hgb (13.0-17.5) gm/dL Hct (39.0-53.0) % MCV (80.0-100.0) fL MCH (25.0-35.0) pg Plt Count (150-450) k/uL Neutrophils # (1.3-7.7) k/uL Macrocytosis ABG pO2 (83-108) mmHg ABG HCO3 (21-25) mmol/L ABG Total CO2 (19-24) mmol/L Hemoglobin (13.0-17.5) gm/dL Potassium 3.4 L (3.5-5.1) mmol/L Chloride (98-107) mmol/L BUN (9-20) mg/dL Glucose (74-99) mg/dL POC Glucose (mg/dL) 322 H (70-110) mg/dL Calcium (8.4-10.2) mg/dL Alkaline Phosphatase (38-126) U/L Total Protein (6.3-8.2) g/dL Albumin (3.5-5.0) g/dL Vitamin D 25-Hydroxy 26.5 L (30.0-100.0) ng/mL 10/12/24 10/12/24 10/12/24 Range/Units 16:05 19:27 23:24 WBC (3.8-10.6) k/uL RBC (4.30-5.90) m/uL Hgb (13.0-17.5) gm/dL Hct (39.0-53.0) % MCV (80.0-100.0) fL MCH (25.0-35.0) pg Plt Count (150-450) k/uL Neutrophils # (1.3-7.7) k/uL Macrocytosis ABG pO2 (83-108) mmHg ABG HCO3 (21-25) mmol/L ABG Total CO2 (19-24) mmol/L Hemoglobin (13.0-17.5) gm/dL Potassium (3.5-5.1) mmol/L Chloride (98-107) mmol/L BUN (9-20) mg/dL Glucose (74-99) mg/dL POC Glucose (mg/dL) 369 H 333 H 330 H (70-110) mg/dL Calcium (8.4-10.2) mg/dL Alkaline Phosphatase (38-126) U/L Total Protein (6.3-8.2) g/dL Albumin (3.5-5.0) g/dL Vitamin D 25-Hydroxy (30.0-100.0) ng/mL 10/13/24 10/13/24 10/13/24 Range/Units 03:52 03:52 03:55 WBC 18.8 H (3.8-10.6) k/uL RBC 2.30 L (4.30-5.90) m/uL Hgb 8.2 L (13.0-17.5) gm/dL Hct 25.8 L (39.0-53.0) % MCV 112.4 H (80.0-100.0) fL MCH 35.6 H (25.0-35.0) pg Plt Count 78 L (150-450) k/uL Neutrophils # 16.5 H (1.3-7.7) k/uL Macrocytosis Marked A ABG pO2 (83-108) mmHg ABG HCO3 (21-25) mmol/L ABG Total CO2 (19-24) mmol/L Hemoglobin (13.0-17.5) gm/dL Potassium (3.5-5.1) mmol/L Chloride 117 H (98-107) mmol/L BUN 47 H (9-20) mg/dL Glucose 281 H (74-99) mg/dL POC Glucose (mg/dL) 319 H (70-110) mg/dL Calcium 7.3 L (8.4-10.2) mg/dL Alkaline Phosphatase 555 H (38-126) U/L Total Protein 5.1 L (6.3-8.2) g/dL Albumin 2.1 L (3.5-5.0) g/dL Vitamin D 25-Hydroxy (30.0-100.0) ng/mL 10/13/24 10/13/24 Range/Units 05:59 08:43 WBC (3.8-10.6) k/uL RBC (4.30-5.90) m/uL Hgb (13.0-17.5) gm/dL Hct (39.0-53.0) % MCV (80.0-100.0) fL MCH (25.0-35.0) pg Plt Count (150-450) k/uL Neutrophils # (1.3-7.7) k/uL Macrocytosis ABG pO2 72 L (83-108) mmHg ABG HCO3 27 H (21-25) mmol/L ABG Total CO2 28 H (19-24) mmol/L Hemoglobin 8.0 L (13.0-17.5) gm/dL Potassium (3.5-5.1) mmol/L Chloride (98-107) mmol/L BUN (9-20) mg/dL Glucose (74-99) mg/dL POC Glucose (mg/dL) 340 H (70-110) mg/dL Calcium (8.4-10.2) mg/dL Alkaline Phosphatase (38-126) U/L Total Protein (6.3-8.2) g/dL Albumin (3.5-5.0) g/dL Vitamin D 25-Hydroxy (30.0-100.0) ng/mL Microbiology - Last 24 Hours (Table) 10/10/24 20:45 Anaerobic Culture - Preliminary Knee - Right 10/07/24 16:26 Blood Culture - Final Blood 10/10/24 20:45 Gram Stain - Preliminary Knee - Right Wound Culture - Preliminary 10/10/24 12:04 Anaerobic Culture - Preliminary Knee - Right 10/09/24 05:12 Blood Culture - Preliminary Blood Assessment and Plan (1) Sepsis Current Visit: Yes Status: Acute Code(s): A41.9 - SEPSIS, UNSPECIFIED ORGANISM SNOMED Code(s): 46025002 (2) Streptococcal bacteremia Current Visit: Yes Status: Acute Code(s): R78.81 - BACTEREMIA; B95.5 - UNSP STREPTOCOCCUS [facility] Code(s): 510365242593 Plan: 1patient presented to the hospital with sepsis in this patient who did have fever tachycardia elevated white count and now with evidence of streptococcal bacteremia which is usually of skin and soft tissue origin 2-patient noticed to have right knee effusion has been evaluated by orthopedics and is status post aspiration with purulent drainage subsequently did have right knee washout by orthopedic cultures are pending may need further workup including MRI of the spine when stable. Ortho is following the patient closely 3patient will be continued on cefazolin 2 g every 8 hours day # 8 Out of 42 and monitor clinical course closely Dictation was produced using [employer] dictation software. please excuse any grammatical, word or spelling errors. Time with Patient: Less than 30
[2024-10-13 23:46] LABS: Glucose,Whole Blood 269 mg/dL (70-110)
[2024-10-14 03:59] LABS: Glucose,Whole Blood 255 mg/dL (70-110)
[2024-10-14 04:12] LABS: Basophils % (A) 0 %; Eosinophils % (A) 0 %; HCT 24.6 % (39.0-53.0); HGB 7.9 gm/dL (13.0-17.5); Hypochromasia Moderate; Lymphocytes # (A) 0.9 k/uL (1.0-4.8); Lymphocytes % (A) 5 %; MCH 36.2 pg (25.0-35.0); MCHC 32.1 g/dL (31.0-37.0); MCV 112.8 fL (80.0-100.0); Macrocytosis Marked; Mean Platelet Volume 10.8; Monocytes # (A) 0.6 k/uL (0-1.0); Monocytes % (A) 4 %; Neutrophils # (A) 14.2 k/uL (1.3-7.7); Neutrophils % (A) 89 %; Platelet Count 102 k/uL (150-450); RBC 2.18 m/uL (4.30-5.90); RDW 14.2 % (11.5-15.5)
[2024-10-14 04:19] LABS: African American GFR (CKD) 88 (>60 ml/min/1.73 sqM); Anion Gap 1 mmol/L; Blood Urea Nitrogen 48 mg/dL (9-20); Calcium 7.1 mg/dL (8.4-10.2); Carbon Dioxide 30 mmol/L (22-30); Chloride 117 mmol/L (98-107); Glucose 232 mg/dL (74-99); Non-African American GFR(CKD) 76 (>60 ml/min/1.73 sqM); Potassium 3.8 mmol/L (3.5-5.1); Sodium 148 mmol/L (137-145)
[2024-10-14 05:03] LABS: ABG Base Excess 6.2 mmol/L; ABG HCO3 30 mmol/L (21-25); ABG Oxygen Saturation 96.1 % (94-97); ABG PCO2 40 mmHg (35-45); ABG PH 7.49 (7.35-7.45); ABG PO2 73 mmHg (83-108); ABG TCO2 31 mmol/L (19-24)
[2024-10-14] MEDS: POTASSIUM BICARBONATE/CIT AC 20 MEQ TABLET.EFF NG-TUBE SCH (05:24)
--- NOTE | 2024-10-14 07:29 | XR ---
EXAMINATION TYPE: XR chest 1V portable DATE OF EXAM: 10/14/2024 COMPARISON: 10/13/2024 CLINICAL INDICATION: Male, 64 years old with history of Tube placement; , TECHNIQUE: XR chest 1V portable views of the chest. FINDINGS: Bilateral consolidation and small effusion. ET tube 4 cm above marvel. NG tube appears in good positi on. No pneumothorax. Limited inspiration. Heart size stable. Degenerative change of the spine. IMPRESSION: 1. Stable bilateral lower lobe infiltrate.. [facility], , 10/14/2024 7:26 AM
[2024-10-14 08:03] LABS: Glucose,Whole Blood 251 mg/dL (70-110)
[2024-10-14] MEDS ORDERED: DEXTROSE 5% IN WATER 1,000 ML IV SCH (10:15)
[2024-10-14] MEDS: DEXTROSE 5% IN WATER 1,000 ML IV SCH (10:42)
--- NOTE | 2024-10-14 11:33 | P.PN ---
Subjective Progress Note Date: 10/14/24 Principal diagnosis: Reason for follow-up is Streptococcus agalactiae bacteremia Patient is a 64-year-old male past medical history significant for diabetes mellitus hypertension hyperlipidemia [place] osteoarthritis coronary disease patient was brought into the hospital after apparently the patient was found to be facedown on the ground with contusion to his forehead and abrasion to his knee and some bloody toes, patient did have a fever subsequently blood cultures came back positive with Streptococcus agalactiae prompting this consultation. Patient noticed to have swelling of the right knee aspirate was purulent subsequently the patient did have a right knee washout completed by orthopedics on 10/10/2024. On today's evaluation that is 10/14/2024, Patient is afebrile patient is currently on ventilator FiO2 stable at 50% patient is hemodynamically stable not requiring any pressor support no significant purulent secretion through the ED diarrhea or any other changes reported. Patient white count is down to 16,000, creatinine 1.05 right knee culture growing strep a Objective - Vital Signs Vital signs: Vital Signs Temp 99.9 F H 10/14/24 08:00 Pulse 79 10/14/24 11:22 Resp 18 10/14/24 11:00 BP 135/65 10/14/24 11:00 Pulse Ox 99 10/14/24 11:00 FiO2 50 10/14/24 11:22 Intake & Output 10/13/24 10/14/24 10/14/24 18:59 06:59 18:59 Intake Total 9114.066 2219.388 415.704 Output Total 2253 1510 1025 Balance -818.792 -229.612 -609.296 Weight 92.8 kg Intake: IV 336 326 167 Pressure Bag 36 36 12 Sodium Chloride 0.9% 1, 200 240 55 000 ml @ 20 mls/hr IV . Q24H [facility] Rx#:[id number] ceFAZolin 2 gm In Sodium 100 50 100 Chloride 0.9% 50 ml @ 100 mls/hr IVPB Q8HR [facility] Rx# :[id number] Intake, IV Titration 228.208 34.388 178.704 Amount Dextrose 5% in Water 1, 75 000 ml @ 75 mls/hr IV . [id number] [facility] Rx#:[id number] propofoL 1,000 mg In 228.208 34.388 103.704 Empty Bag 1 bag @ 15 MCG/ KG/MIN 7.704 mls/hr IV . [id number] [facility] Rx#:[id number] Tube Feeding 780 830 70 Other 90 90 Output: Urine 2253 1510 1025 Other: Voiding Method Indwelling Catheter Indwelling Catheter Indwelling Catheter # Bowel Movements 1 ABP, PAP, CO, CI - Last Documented Arterial Blood Pressure 174/51 - Exam GENERAL DESCRIPTION: Middle-age male intubated on the vent RESPIRATORY SYSTEM: Unlabored breathing , decreased breath sounds at bases HEART: S1 S2 regular rate and rhythm , ABDOMEN: Soft , no tenderness EXTREMITIES: Swelling to the lower extremity no redness - Labs CBC & Chem 7: 10/14/24 03:54 10/14/24 03:54 Labs: Abnormal Lab Results - Last 24 Hours (Table) 10/13/24 10/13/24 10/13/24 Range/Units 17:15 19:56 23:44 WBC (3.8-10.6) k/uL RBC (4.30-5.90) m/uL Hgb (13.0-17.5) gm/dL Hct (39.0-53.0) % MCV (80.0-100.0) fL MCH (25.0-35.0) pg Plt Count (150-450) k/uL Neutrophils # (1.3-7.7) k/uL Lymphocytes # (1.0-4.8) k/uL Macrocytosis ABG pH (7.35-7.45) ABG pO2 (83-108) mmHg ABG HCO3 (21-25) mmol/L ABG Total CO2 (19-24) mmol/L Hemoglobin (13.0-17.5) gm/dL Sodium (137-145) mmol/L Chloride (98-107) mmol/L BUN (9-20) mg/dL Glucose (74-99) mg/dL POC Glucose (mg/dL) 211 H 235 H 269 H (70-110) mg/dL Calcium (8.4-10.2) mg/dL 10/14/24 10/14/24 10/14/24 Range/Units 03:54 03:54 03:56 WBC 16.0 H (3.8-10.6) k/uL RBC 2.18 L (4.30-5.90) m/uL Hgb 7.9 L (13.0-17.5) gm/dL Hct 24.6 L (39.0-53.0) % MCV 112.8 H (80.0-100.0) fL MCH 36.2 H (25.0-35.0) pg Plt Count 102 L (150-450) k/uL Neutrophils # 14.2 H (1.3-7.7) k/uL Lymphocytes # 0.9 L (1.0-4.8) k/uL Macrocytosis Marked A ABG pH (7.35-7.45) ABG pO2 (83-108) mmHg ABG HCO3 (21-25) mmol/L ABG Total CO2 (19-24) mmol/L Hemoglobin (13.0-17.5) gm/dL Sodium 148 H (137-145) mmol/L Chloride 117 H (98-107) mmol/L BUN 48 H (9-20) mg/dL Glucose 232 H (74-99) mg/dL POC Glucose (mg/dL) 255 H (70-110) mg/dL Calcium 7.1 L (8.4-10.2) mg/dL 10/14/24 10/14/24 Range/Units 04:24 08:02 WBC (3.8-10.6) k/uL RBC (4.30-5.90) m/uL Hgb (13.0-17.5) gm/dL Hct (39.0-53.0) % MCV (80.0-100.0) fL MCH (25.0-35.0) pg Plt Count (150-450) k/uL Neutrophils # (1.3-7.7) k/uL Lymphocytes # (1.0-4.8) k/uL Macrocytosis ABG pH 7.49 H (7.35-7.45) ABG pO2 73 L (83-108) mmHg ABG HCO3 30 H (21-25) mmol/L ABG Total CO2 31 H (19-24) mmol/L Hemoglobin 7.9 L (13.0-17.5) gm/dL Sodium (137-145) mmol/L Chloride (98-107) mmol/L BUN (9-20) mg/dL Glucose (74-99) mg/dL POC Glucose (mg/dL) 251 H (70-110) mg/dL Calcium (8.4-10.2) mg/dL Microbiology - Last 24 Hours (Table) 10/10/24 20:45 Anaerobic Culture - Preliminary Knee - Right Strep A 10/10/24 20:45 Gram Stain - Preliminary Knee - Right Wound Culture - Preliminary 10/08/24 06:16 Blood Culture - Final Blood Assessment and Plan (1) Sepsis Current Visit: Yes Status: Acute Code(s): A41.9 - SEPSIS, UNSPECIFIED ORGANISM SNOMED Code(s): 63532175 (2) Streptococcal bacteremia Current Visit: Yes Status: Acute Code(s): R78.81 - BACTEREMIA; B95.5 - UNSP STREPTOCOCCUS THE CAUSE OF DISEASES CLASSD [facility] SNOMED Code(s): 204503794915 Plan: 1patient presented to the hospital with sepsis in this patient who did have fever tachycardia elevated white count and now with evidence of streptococcal bacteremia which is usually of skin and soft tissue origin 2-patient noticed to have right knee effusion has been evaluated by orthopedics and is status post aspiration with purulent drainage subsequently did have right knee washout by orthopedic cultures are pending may need further workup in cluding MRI of the spine when stable. Ortho is following the patient closely 3patient right knee fluid culture also came back positive with group B strep for the patient is covered with cefazolin 2 g every 8 hours and will monitor clinical course closely Dictation was produced using [employer] dictation software. please excuse any grammatical, word or spelling errors. Time with Patient: Less than 30
[2024-10-14] MEDS: DEXMEDETOMIDINE/0.9% NACL(PMX) 400 MCG in EMPTY BAG 1 BAG IV SCH (11:51)
[2024-10-14 12:07] LABS: Glucose,Whole Blood 246 mg/dL (70-110)
--- NOTE | 2024-10-14 12:13 | P.PN ---
Subjective patient is seen for follow-up for acute kidney injury. Renal function has improved. Patient remains on the vent. Sedation is being decreased. Urine output at 40-75 mL an hour. Serum creatinine at 1.0 mg/dL. sodium increased to 148 Objective - Vital Signs Vital signs: Vital Signs Temp 99.9 F H 10/14/24 08:00 Pulse 79 10/14/24 11:22 Resp 18 10/14/24 11:00 BP 135/65 10/14/24 11:00 Pulse Ox 99 10/14/24 11:00 FiO2 50 10/14/24 11:22 Intake & Output 10/13/24 10/14/24 10/14/24 18:59 06:59 18:59 Intake Total 3899.477 2950.388 415.704 Output Total 2253 1510 1025 Balance -818.792 -229.612 -609.296 Weight 92.8 kg 92.8 kg Intake: IV 336 326 167 Pressure Bag 36 36 12 Sodium Chloride 0.9% 1, 200 240 55 000 ml @ 20 mls/hr IV . Q24H [facility] Rx#:[id number] ceFAZolin 2 gm In Sodium 100 50 100 Chloride 0.9% 50 ml @ 100 mls/hr IVPB Q8HR [facility] Rx# :[id number] Intake, IV Titration 228.208 34.388 178.704 Amount Dextrose 5% in Water 1, 75 000 ml @ 75 mls/hr IV . [id number] [facility] Rx#:[id number] propofoL 1,000 mg In 228.208 34.388 103.704 Empty Bag 1 bag @ 15 MCG/ KG/MIN 7.704 mls/hr IV . [id number] [facility] Rx#:[id number] Tube Feeding 780 830 70 Other 90 90 Output: Urine 2253 1510 1025 Other: Voiding Method Indwelling Catheter Indwelling Catheter Indwelling Catheter # Bowel Movements 1 ABP, PAP, CO, CI - Last Documented Arterial Blood Pressure 174/51 - Exam patient is sedated and on the vent. Examination of the heart S1 and S2 Examination of the lungs bilateral breath sounds are heard Abdomen is soft nontender Examination of lower extremities shows edema 1+. Discoloration of toes noted in left foot. - Labs CBC & Chem 7: 10/14/24 03:54 10/14/24 03:54 Labs: Abnormal Lab Results - Last 24 Hours (Table) 10/13/24 10/13/24 10/13/24 Range/Units 17:15 19:56 23:44 WBC (3.8-10.6) k/uL RBC (4.30-5.90) m/uL Hgb (13.0-17.5) gm/dL Hct (39.0-53.0) % MCV (80.0-100.0) fL MCH (25.0-35.0) pg Plt Count (150-450) k/uL Neutrophils # (1.3-7.7) k/uL Lymphocytes # (1.0-4.8) k/uL Macrocytosis ABG pH (7.35-7.45) ABG pO2 (83-108) mmHg ABG HCO3 (21-25) mmol/L ABG Total CO2 (19-24) mmol/L Hemoglobin (13.0-17.5) gm/dL Sodium (137-145) mmol/L Chloride (98-107) mmol/L BUN (9-20) mg/dL Glucose (74-99) mg/dL POC Glucose (mg/dL) 211 H 235 H 269 H (70-110) mg/dL Calcium (8.4-10.2) mg/dL 10/14/24 10/14/24 10/14/24 Range/Units 03:54 03:54 03:56 WBC 16.0 H (3.8-10.6) k/uL RBC 2.18 L (4.30-5.90) m/uL Hgb 7.9 L (13.0-17.5) gm/dL Hct 24.6 L (39.0-53.0) % MCV 112.8 H (80.0-100.0) fL MCH 36.2 H (25.0-35.0) pg Plt Count 102 L (150-450) k/uL Neutrophils # 14.2 H (1.3-7.7) k/uL Lymphocytes # 0.9 L (1.0-4.8) k/uL Macrocytosis Marked A ABG pH (7.35-7.45) ABG pO2 (83-108) mmHg ABG HCO3 (21-25) mmol/L ABG Total CO2 (19-24) mmol/L Hemoglobin (13.0-17.5) gm/dL Sodium 148 H (137-145) mmol/L Chloride 117 H (98-107) mmol/L BUN 48 H (9-20) mg/dL Glucose 232 H (74-99) mg/dL POC Glucose (mg/dL) 255 H (70-110) mg/dL Calcium 7.1 L (8.4-10.2) mg/dL 10/14/24 10/14/24 10/14/24 Range/Units 04:24 08:02 12:03 WBC (3.8-10.6) k/uL RBC (4.30-5.90) m/uL Hgb (13.0-17.5) gm/dL Hct (39.0-53.0) % MCV (80.0-100.0) fL MCH (25.0-35.0) pg Plt Count (150-450) k/uL Neutrophils # (1.3-7.7) k/uL Lymphocytes # (1.0-4.8) k/uL Macrocytosis ABG pH 7.49 H (7.35-7.45) ABG pO2 73 L (83-108) mmHg ABG HCO3 30 H (21-25) mmol/L ABG Total CO2 31 H (19-24) mmol/L Hemoglobin 7.9 L (13.0-17.5) gm/dL Sodium (137-145) mmol/L Chloride (98-107) mmol/L BUN (9-20) mg/dL Glucose (74-99) mg/dL POC Glucose (mg/dL) 251 H 246 H (70-110) mg/dL Calcium (8.4-10.2) mg/dL Microbiology - Last 24 Hours (Table) 10/10/24 20:45 Anaerobic Culture - Preliminary Knee - Right Strep A 10/10/24 20:45 Gram Stain - Preliminary Knee - Right Wound Culture - Preliminary 10/08/24 06:16 Blood Culture - Final Blood Assessment and Plan Assessment: 1. Acute kidney injury secondary to ATN secondary to septic shock and rhabdom yolysis. Creatinine 3.18 on admission and is improved to 1.1. Baseline creatinine near 1. No hydronephrosis noted on kidney ultrasound. 2. Rhabdomyolysis secondary to immobility. CK levels trending down. 3. Strep bacteremia on antibiotics. 4. Anion gap metabolic acidosis secondary to acute kidney injury and lactic acidosis. Now due to IV fluids. Status post bicarb drip. 5. Hyponatremia secondary to hypovolemia as well as acute kidney injury. Better. 6. Hypomagnesemia from poor intake and alcohol abuse. Replaced. 7. History of alcohol abuse. 8. Hypocalcemia, replaced. 25-hydroxy vitamin D was 26.5, started on supplementation. 9. Hypokalemia from poor intake. Replaced. Better. 10. A-fib with RVR status post amiodarone drip. 11. Volume overload. Plan: continue with Lasix Free water with acute feedings was increased. DC D5W after about 4-6 hours.
--- NOTE | 2024-10-14 12:50 | P.PN ---
Subjective Progress Note Date: 10/14/24 Patient is a 64-year-old male who is being seen in the ICU due to hypovolemic shock and rhabdomyolysis. He is a poor historian due to altered mental status and unresponsiveness. All history is obtained from the chart. He initially presented to the emergency department after being found facedown on the ground with a contusion to his forehead and abrasions to his knee and left toes. She stated that he had been having nausea and vomiting for a day prior to being found down. He was noted to have diarrhea as well. Patient is a daily drinker and consumes about a fifth per day according to the notes he has not drank for the 2 days prior to this admission. He also has a history of type 1 diabetes m socrates. Initial EKG showed sinus tachycardia. Head/cervical spine CT showed no acute intracranial process and no acute fracture or traumatic subluxation of the cervical spine. Initial chest x-ray showed right middle lobe scarring/atelectasis, no acute pulmonary process. He had received 4 L of normal saline. Initial labs showed CK level of 18,113, WBCs 10.7, hemoglobin 12.5, sodium 126, creatinine 3.18 lactic acid 6.9, AST 401, ALT 65. Preliminary blood culture showed gram-positive cocci and patient was started on vancomycin. 10/07/2024. He is maintained on a bicarb drip as well as normal saline. He remains unresponsive to verbal stimulation. He is maintained on CIWA protocol. Labs today: WBCs 5.1, hemoglobin 11.6, sodium 126, potassium 3.8, BUN 53, creatinine 3.12, ammonia <9. 10/08/2024. 64-year-old male seen in room 252. I was notified by the nurse at nighttime, that the patient's blood pressure continued to drop. We bumped up his dose of norepinephrine, and gave him a liter of fluid. In addition, his respiratory status was marginal, and the blood gas was ordered. The patient is currently on 6 L of oxygen. The patient was admitted on October 06. He is getting saline at 150 cc an hour, and Precedex at 0.4 mcg/kg/h. His norepinephrine is running at 31 mcg/min. There is staphylococci in his blood. I have asked the nurses to add Ativan Dilaudid and Haldol to his regimen, to try to wean him off the dexmedetomidine. White count of 9.1, hemoglobin hematocrit 29, platelet count 88,000. Sodium 131, potassium 3, chloride 92, CO2 32, BUN 50, creatinine 2.34. Glucose is 167. Calcium is 6.3. CK was 8796. AST is 507. ALT is 136. Albumin is 2.2. Blood cultures from the were positive for Streptococcus group A. Chest x-ray shows bilateral effusions, small, with low lung volumes. 10/09/2024. Patient seen as a followup. No acute events overnight. He is currently on 6 L of oxygen. He was on dextrose 5% - 0.9% NaCl, blood sugars have been in the mid to high 200s. He is receiving Kefzol for streptococcal group A bacteremia. Precedex has been turned off. Levophed is 0.3 mcg/kg/min. WBCs 12.3, hemoglobin 9.7, hematocrit 27.7, platelets 48. Sodium 133, potassium 3.7, chloride 105, CO2 19, BUN 42, creatinine 1.62. Glucose 267. Calcium 6.4. CK 3888. AST 323, ALT 78. Albumin 2.2. Today's chest x-ray showed cardiomegaly, pulmonary vascular congestion, and bilateral pleural effusions. 10/10/2024. Patient is being seen as a followup in the ICU. Overnight he went into A-fib with rapid ventricular rate, was started on an amiodarone drip at 1mg/min, and converted back to normal sinus rhythm. His pressures remain in the 100s/40s and pulses are He is currently on 15 L high flow oxygen. He is on normal saline at 150 cc/h. He is maintained on Kefzol for streptococcal group A bactermia, today is day 3. Levophed is at 0.11 mcg/kg/min, vasopressin at 0.02 mcg/kg/min. WBCs 16.4, hemoglobin 9.8, hematocrit 29.6, platelets 38. Sodium 138, potassium 3.5, chloride 112, CO2 23, BUN 35, creatinine 1.26, glucose 164. Ionized calcium 4.1. CK 988. AST 154, ALT 36. Cortisol 32. TSH 4.3830. In addition, he removed his NG tube overnight. Today's chest x-ray is unchanged from previous. He remains lethargic and barely responsive to verbal stimulation. 10/11/2024. Patient is seen in the ICU. He underwent arthroscopic lavage of the right knee yesterday evening and returned to the ICU intubated on mechanical ventilation. He is currently on assist-control mode with rate 18, tidal volume 450, FiO2 70%, PEEP 5. ABG shows pH 7.34, pCO2 37, pO2 95. He is maintained on vasopressin 0.02 units/min, Levophed 0.14 mcg/kg/min, normal saline at 100 cc/h, and Kefzol day 4. WBCs 18.1, hemoglobin 8.8, hematocrit 27.6, platelets 52, sodium 140, potassium 3.9, chloride 115, CO2 17, BUN 35, creatinine 1.08, glucose 191, creatinine kinase 215. Calcium 6.5. Magnesium 1.6. He began IV hydrocortisone 50 mg every 6 hours yesterday. Liver ultrasound performed yesterday revealed no acute process. Chest x-ray today is unchanged from previous. 10/12/2024. Patient is evaluated in the ICU. 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 ABG shows pH 7.42, pCO2 38, pO2 74. His RSBI yesterday was 110 and he was unable to follow commands so he could not be extubated. He is maintained on vasopressin 0.02 units/min, normal saline at 20 cc/h, IV hydrocortisone 50 mg every 6 hours, and Kefzol day 5. WBCs 17.4, hemoglobin 8.2, hematocrit 25.2, platelets 53, sodium 142, potassium 3.7, chloride 116, CO2 23, BUN 39, creatinine 1.18, glucose 258. Ionized calcium 4.4. Magnesium 1.8. Today's chest x-ray is unchanged. Wound culture gram stain of the right knee preliminary report shows rare gram positive cocci. 10/13/2024. 64-year-old male seen in the intensive care unit, room 252. The patient remains on the mechanical ventilator. He is on volume assist-control, rate 18, tidal volume 450, FiO2 50%, PEEP of 5. Blood gases show pO2 72, pCO2 41, and pH is 7.42. The patient is on propofol at 35 mcg/kg/min, saline at 20 cc an hour, and vital high-protein at 60, with goal of 70. Yesterday, he had a brief spontaneous breathing trial, and he did poorly. Today he will again have a spontaneous breathing trial, of pressure support of 5 and CPAP of 5. He continues on Ancef. White count 18.8, hemoglobin 8.2, hematocrit 25.8, platelet count 78,000. Sodium 144, potassium 4.1, chlorides 117, CO2 26, BUN 47, creatinine 1.18. Glucose is 340. Albumin is 2.1. Previous blood cultures from October 06 show group A streptococci. Chest x-ray shows bibasilar infiltrates. 10/14/2024. Patient seen in the ICU. He remains on the mechanical ventilator on assist-control mode with rate 18, tidal volume 450, FiO2 50%, PEEP of 5. ABG shows pH 7.49, pCO2 40, pO2 73. He is on propofol at 30 mcg/kg/min, 0.9% NaCl at 20 cc/h, and vital high-protein at 70. He had a brief spontaneous breathing trial yesterday and did poorly. He will have another spontaneous breathing trial again today. He continues with Ancef day 7. WBCs 16, hemoglobin 7.9, hematocrit 24.6, platelets 102, sodium 148, potassium 3.8, chloride 117, CO2 30, BUN 48, creatinine 1.05, glucose 232. Right knee wound culture positive for Streptococcus group A. Chest x-ray today shows stable bilateral lower lobe infiltrate. Objective - Vital Signs Vital signs: Vital Signs Temp 99.6 F 10/14/24 04:00 Pulse 96 10/14/24 07:00 Resp 18 10/14/24 07:00 BP 142/71 10/14/24 07:00 Pulse Ox 97 10/14/24 07:00 FiO2 50 10/14/24 04:26 Intake & Output 10/13/24 10/14/24 10/14/24 18:59 06:59 18:59 Intake Total 9766.644 0796.388 93 Output Total 2253 1510 175 Balance -818.792 -229.612 -82 Weight 92.8 kg Intake: IV 336 326 23 Pressure Bag 36 36 3 Sodium Chloride 0.9% 1, 200 240 20 000 ml @ 20 mls/hr IV . Q24H PITO Rx#:[id number] ceFAZolin 2 gm In Sodium 100 50 Chloride 0.9% 50 ml @ 100 mls/hr IVPB Q8HR [facility]O Rx# :[id number] Intake, IV Titration 228.208 34.388 Amount propofoL 1,000 mg In 228.208 34.388 Empty Bag 1 bag @ 15 MCG/ KG/MIN 7.704 mls/hr IV . [id number] P[facility]O Rx#:[id number] Tube Feeding 780 830 70 Other 90 90 Output: Urine 2253 1510 175 Other: Voiding Method Indwelling Catheter Indwelling Catheter # Bowel Movements 1 ABP, PAP, CO, CI - Last Documented Arterial Blood Pressure 152/45 - Exam Vital signs are stable. General: Intubated and sedated. Right radial arterial line present. HEENT: Head exam is unremarkable. EOMI bilaterally. ACs patent. Nares patent. Lungs: Mechanical bilateral breath sounds present; no rhonchi, wheezes, or rales. Heart: Rate and rhythm are regular. S1-S2 present. No murmur/rub/gallops. Abdomen: Soft, nontender, nondistended. Bowel sounds present. Extremities: 1+ edema present in all extremities. Neuro: Unable to assess due to intubation/sedation. - Labs CBC & Chem 7: 10/14/24 03:54 10/14/24 03:54 Labs: Abnormal Lab Results - Last 24 Hours (Table) 10/13/24 10/13/24 10/13/24 Range/Units 08:43 11:29 17:15 WBC (3.8-10.6) k/uL RBC (4.30-5.90) m/uL Hgb (13.0-17.5) gm/dL Hct (39.0-53.0) % MCV (80.0-100.0) fL MCH (25.0-35.0) pg Plt Count (150-450) k/uL Neutrophils # (1.3-7.7) k/uL Lymphocytes # (1.0-4.8) k/uL Macrocytosis ABG pH (7.35-7.45) ABG pO2 (83-108) mmHg ABG HCO3 (21-25) mmol/L ABG Total CO2 (19-24) mmol/L Hemoglobin (13.0-17.5) gm/dL Sodium (137-145) mmol/L Chloride (98-107) mmol/L BUN (9-20) mg/dL Glucose (74-99) mg/dL POC Glucose (mg/dL) 340 H 277 H 211 H (70-110) mg/dL Calcium (8.4-10.2) mg/dL 10/13/24 10/13/24 10/14/24 Range/Units 19:56 23:44 03:54 WBC 16.0 H (3.8-10.6) k/uL RBC 2.18 L (4.30-5.90) m/uL Hgb 7.9 L (13.0-17.5) gm/dL Hct 24.6 L (39.0-53.0) % MCV 112.8 H (80.0-100.0) fL MCH 36.2 H (25.0-35.0) pg Plt Count 102 L (150-450) k/uL Neutrophils # 14.2 H (1.3-7.7) k/uL Lymphocytes # 0.9 L (1.0-4.8) k/uL Macrocytosis Marked A ABG pH (7.35-7.45) ABG pO2 (83-108) mmHg ABG HCO3 (21-25) mmol/L ABG Total CO2 (19-24) mmol/L Hemoglobin (13.0-17.5) gm/dL Sodium (137-145) mmol/L Chloride (98-107) mmol/L BUN (9-20) mg/dL Glucose (74-99) mg/dL POC Glucose (mg/dL) 235 H 269 H (70-110) mg/dL Calcium (8.4-10.2) mg/dL 10/14/24 10/14/24 10/14/24 Range/Units 03:54 03:56 04:24 WBC (3.8-10.6) k/uL RBC (4.30-5.90) m/uL Hgb (13.0-17.5) gm/dL Hct (39.0-53.0) % MCV (80.0-100.0) fL MCH (25.0-35.0) pg Plt Count (150-450) k/uL Neutrophils # (1.3-7.7) k/uL Lymphocytes # (1.0-4.8) k/uL Macrocytosis ABG pH 7.49 H (7.35-7.45) ABG pO2 73 L (83-108) mmHg ABG HCO3 30 H (21-25) mmol/L ABG Total CO2 31 H (19-24) mmol/L Hemoglobin 7.9 L (13.0-17.5) gm/dL Sodium 148 H (137-145) mmol/L Chloride 117 H (98-107) mmol/L BUN 48 H (9-20) mg/dL Glucose 232 H (74-99) mg/dL POC Glucose (mg/dL) 255 H (70-110) mg/dL Calcium 7.1 L (8.4-10.2) mg/dL Microbiology - Last 24 Hours (Table) 10/10/24 20:45 Anaerobic Culture - Preliminary Knee - Right Strep A 10/10/24 20:45 Gram Stain - Preliminary Knee - Right Wound Culture - Preliminary 10/08/24 06:16 Blood Culture - Final Blood Assessment and Plan Assessment: Chronic alcohol abuse with acute alcohol withdrawal syndrome. Rhabdomyolysis secondary to immobility due to fall. Improving. Acute kidney injury secondary to ATN due to to septic shock and rhabdomyolysis. Improving. Relative adrenal insufficiency. On IV hydrocortisone. Non-anion gap metabolic acidosis. Transaminitis. Improving. Streptococcus group A bacteremia. Currently on cefazolin. Lactic acidosis. Resolved. Hyponatremia, likely hypovolemic. Hypoalbuminemia. Hypocalcemia. Hypomagnesemia. Type 1 diabetes mellitus. History of coronary artery disease with previous catheterization and stent placement. History of GERD. Hyperlipidemia. Hypertension. History of myocardial infarction. History of osteoarthritis. Plan: Discontinue IV hydrocortisone succinate 50 mg every 6 hours. Continue IV cefazolin. Sedation holiday today. Monitor blood sugars. Insulin sliding scale. Continue Levemir 20 units twice daily. Continue CIWA protocol. Monitor hemodynamics. GI prophylaxis with IV Protonix. DVT prophylaxis with SCDs. Nephrology following. Cardiology following. Infectious disease is following. Orthopedic surgery is following. Labs, x-rays, and medications were reviewed.
--- NOTE | 2024-10-14 14:19 | P.PN ---
Subjective Progress Note Date: 10/14/24 Patient is a 64-year-old male who is being seen in the ICU due to hypovolemic shock and rhabdomyolysis. He is a poor historian due to altered mental status and unresponsiveness. All history is obtained from the chart. He initially presented to the emergency department after being found facedown on the ground with a contusion to his forehead and abrasions to his knee and left toes. She stated that he had been having nausea and vomiting for a day prior to being found down. He was noted to have diarrhea as well. Patient is a daily drinker and consumes about a fifth per day according to the notes he has not drank for the 2 days prior to this admission. He also has a history of type 1 diabetes mellitus. Initial EKG showed sinus tachycardia. Head/cervical spine CT showed no acute intracranial process and no acute fracture or traumatic subluxation of the cervical spine. Initial chest x-ray showed right middle lobe scarring/atelectasis, no acute pulmonary process. He had received 4 L of normal saline. Initial labs showed CK level of 18,113, WBCs 10.7, hemoglobin 12.5, sodium 126, creatinine 3.18 lactic acid 6.9, AST 401, ALT 65. Preliminary blood culture showed gram-positive cocci and patient was started on vancomycin. 10/07/2024. He is maintained on a bicarb drip as well as normal saline. He remains unresponsive to verbal stimulation. He is maintained on CIWA protocol. Labs today: WBCs 5.1, hemoglobin 11.6, sodium 126, potassium 3.8, BUN 53, creatinine 3.12, ammonia <9. Progress note dated October 08, 2024. 64-year-old male seen in room 252. I was notified by the nurse at nighttime, that the patient's blood pressure continued to drop. We bumped up his dose of n orepinephrine, and gave him a liter of fluid. In addition, his respiratory status was marginal, and the blood gas was ordered. The patient is currently on 6 L of oxygen. The patient was admitted on October 06. He is getting saline at 150 cc an hour, and Precedex at 0.4 mcg/kg/h. His norepinephrine is running at 31 mcg/min. There is staphylococci in his blood. I have asked the nurses to add Ativan Dilaudid and Haldol to his regimen, to try to wean him off the dexmedetomidine. White count of 9.1, hemoglobin hematocrit 29, platelet count 88,000. Sodium 131, potassium 3, chloride 92, CO2 32, BUN 50, creatinine 2.34. Glucose is 167. Calcium is 6.3. CK was 8796. AST is 507. ALT is 136. Albumin is 2.2. Blood cultures from the were positive for Streptococcus group A. Chest x-ray shows bilateral effusions, small, with low lung volumes. 10/09/2024. Patient seen as a followup. No acute events overnight. He is currently on 6 L of oxygen. He was on dextrose 5% - 0.9% NaCl, blood sugars have been in the mid to high 200s. He is receiving Kefzol for streptococcal group A bacteremia. Precedex has been turned off. Levophed is 0.3 mcg/kg/min. WBCs 12.3, hemoglobin 9.7, hematocrit 27.7, platelets 48. Sodium 133, potassium 3.7, chloride 105, CO2 19, BUN 42, creatinine 1.62. Glucose 267. Calcium 6.4. CK 3888. AST 323, ALT 78. Albumin 2.2. Today's chest x-ray showed cardiomegaly, pulmonary vascular congestion, and bilateral pleural effusions. 10/10/2024. Patient is being seen as a followup in the ICU. Overnight he went into A-fib with rapid ventricular rate, was started on an amiodarone drip at 1mg/min, and converted back to normal sinus rhythm. His pressures remain in the 100s/40s and pulses are He is currently on 15 L high flow oxygen. He is on no rmal saline at 150 cc/h. He is maintained on Kefzol for streptococcal group A bactermia, today is day 3. Levophed is at 0.11 mcg/kg/min, vasopressin at 0.02 mcg/kg/min. WBCs 16.4, hemoglobin 9.8, hematocrit 29.6, platelets 38. Sodium 138, potassium 3.5, chloride 112, CO2 23, BUN 35, creatinine 1.26, glucose 164. Ionized calcium 4.1. CK 988. AST 154, ALT 36. Cortisol 32. TSH 4.3830. In addition, he removed his NG tube overnight. Today's chest x-ray is unchanged from previous. He remains lethargic and barely responsive to verbal stimulation. 10/11/2024. Patient is seen in the ICU. He underwent arthroscopic lavage of the right knee yesterday evening and returned to the ICU intubated on mechanical ventilation. He is currently on assist-control mode with rate 18, tidal volume 450, FiO2 70%, PEEP 5. ABG shows pH 7.34, pCO2 37, pO2 95. He is maintained on vasopressin 0.02 units/min, Levophed 0.14 mcg/kg/min, normal saline at 100 cc/h, and Kefzol day 4. WBCs 18.1, hemoglobin 8.8, hematocrit 27.6, platelets 52, sodium 140, potassium 3.9, chloride 115, CO2 17, BUN 35, creatinine 1.08, glucose 191, creatinine kinase 215. Calcium 6.5. Magnesium 1.6. He began IV hydrocortisone 50 mg every 6 hours yesterday. Liver ultrasound performed yesterday revealed no acute process. Chest x-ray today is unchanged from previous. 10/12/2024. Patient is evaluated in the ICU. He remains intubated on mechanical ventilation on assist-control mode with rate 18, tidal volume 450, Fi O2 50%, PEEP 5. ABG shows pH 7.42, pCO2 38, pO2 74. His RSBI yesterday was 110 and he was unable to follow commands so he could not be extubated. He is maintained on vasopressin 0.02 units/min, normal saline at 20 cc/h, IV hydrocortisone 50 mg every 6 hours, and Kefzol day 5. WBCs 17.4, hemoglobin 8.2, hematocrit 25.2, platelets 53, sodium 142, potassium 3.7, chloride 116, CO2 23, BUN 39, creatinine 1.18, glucose 258. Ionized calcium 4.4. Magnesium 1.8. Today's chest x-ray is unchanged. Wound culture gram stain of the right knee preliminary report shows rare gram positive cocci. Progress note dated October 13, 2024. 64-year-old male seen in the intensive care unit, room 252. The patient remains on the mechanical ventilator. He is on volume assist-control, rate 18, tidal volume 450, FiO2 50%, PEEP of 5. Blood gases show pO2 72, pCO2 41, and pH is 7.42. The patient is on propofol at 35 mcg/kg/min, saline at 20 cc an hour, and vital high-protein at 60, with goal of 70. Yesterday, he had a brief spontaneous breathing trial, and he did poorly. Today he will again have a s pontaneous breathing trial, of pressure support of 5 and CPAP of 5. He continues on Ancef. White count 18.8, hemoglobin 8.2, hematocrit 25.8, platelet count 78,000. Sodium 144, potassium 4.1, chlorides 117, CO2 26, BUN 47, creatinine 1.18. Glucose is 340. Albumin is 2.1. Previous blood cultures from October 06 show group A streptococci. Chest x-ray shows bibasilar infiltrates. Today's evaluation of 10/14/2024, the patient is being seen for a follow-up. The patient remains intubated on mechanical ventilator. The patient remains encephalopathic. The patient has history of alcoholism and he was treated for alcohol withdrawal/delirium tremens. The patient was also found to be septic with septic right knee arthritis and secondary bacteremia sepsis with MSSA and the patient is postop day #4 following arthroscopic lavage and debridement of the right knee. The rhabdomyolysis has improved. The patient remains on broad- spectrum antibiotics and the patient remains on IV cefazolin. On today's evaluation, the patient remains sedated on propofol running at 30 mcg/kg/min. He is on the mechanical ventilator, assist-control mode with a rate of 18, tidal volume of 450, FiO2 of 30% with a PEEP of 5. The blood gas showed a pH of 7.49 with a pCO2 of 40 and pO2 of 73. The follow-up chest x-ray from this morning shows stable bilateral lower lobe pulmonary infiltrates. No other acute abnormalities have been noted on today's chest x-ray. Noted the patient has been off norepinephrine and off vasopressin. The patient is currently being diuresed with IV Lasix. The fluid balance over the past 24 hours is -1 L. Noted the patient was significantly in the past fluid balance as the patient was being resuscitated with IV fluids regarding his underlying septic shock. The patient remains on hydrocortisone stress dose. The patient remains on vital high-protein at rate of 70 cc an hour. Afebrile. Producing adequate amount of urine output. WBC count is at 16 with a hemoglobin 7.9 and a platelet count of 102. The platelet count has been improving steadily. The patient's BUN is 48 with a creatinine of 1.05. Sodium levels at 148, bicarb is at 30, glucose at 232, BUN is 48 with a creatinine of 1.05. CPK level has down trended. Alkaline phosphatase 555 with an AST of 44 and an ALT of 10. The cultures from the joints/right knee was positive for strep group A and the blood cultures showed a similar bacteria. Objective - Vital Signs Vital signs: Vital Signs Temp 99.6 F 10/14/24 04:00 Pulse 95 10/14/24 08:25 Resp 18 10/14/24 07:00 BP 142/71 10/14/24 07:00 Pulse Ox 97 10/14/24 07:00 FiO2 50 10/14/24 07:59 Intake & Output 10/13/24 10/14/24 10/14/24 18:59 06:59 18:59 Intake Total 9072.492 3438.388 93 Output Total 2253 1510 175 Balance -818.792 -229.612 -82 Weight 92.8 kg Intake: IV 336 326 23 Pressure Bag 36 36 3 Sodium Chloride 0.9% 1, 200 240 20 000 ml @ 20 mls/hr IV . Q24H [facility] Rx#:[id number] ceFAZolin 2 gm In Sodium 100 50 Chloride 0.9% 50 ml @ 100 mls/hr IVPB Q8HR [facility] Rx# :[id number] Intake, IV Titration 228.208 34.388 Amount propofoL 1,000 mg In 228.208 34.388 Empty Bag 1 bag @ 15 MCG/ KG/MIN 7.704 mls/hr IV . [id number] [facility] Rx#:[id number] Tube Feeding 780 830 70 Other 90 90 Output: Urine 2253 1510 175 Other: Voiding Method Indwelling Catheter Indwelling Catheter # Bowel Movements 1 ABP, PAP, CO, CI - Last Documented Arterial Blood Pressure 152/45 - Exam Sedated, with an orally placed endotracheal tube. The patient is calm comfortable, orogastric and orotracheal tube are both in place. Head exam was generally normal. There was no scleral icterus or corneal arcus. Mucous membranes were moist. Neck supple. Full range of motion. No adenopathy thyromegaly or neck vein distention. Cardiovascular examination reveals regular rhythm rate. S1-S2 normal. No S3 or S4. No discernible murmur noted. Lungs reveal mild scattered rhonchi. No wheezes or crackles. Breath sounds equal. Abdomen soft, without bowel sounds. No masses or tenderness. Extremities are intact. No cyanosis clubbing or edema. Skin reveals multiple abrasions and bruises. Neurologic examination cannot be currently evaluated. - Labs CBC & Chem 7: 10/14/24 03:54 10/14/24 03:54 Labs: Abnormal Lab Results - Last 24 Hours (Table) 10/13/24 10/13/24 10/13/24 Range/Units 11:29 17:15 19:56 WBC (3.8-10.6) k/uL RBC (4.30-5.90) m/uL Hgb (13.0-17.5) gm/dL Hct (39.0-53.0) % MCV (80.0-100.0) fL MCH (25.0-35.0) pg Plt Count (150-450) k/uL Neutrophils # (1.3-7.7) k/uL Lymphocytes # (1.0-4.8) k/uL Macrocytosis ABG pH (7.35-7.45) ABG pO2 (83-108) mmHg ABG HCO3 (21-25) mmol/L ABG Total CO2 (19-24) mmol/L Hemoglobin (13.0-17.5) gm/dL Sodium (137-145) mmol/L Chloride (98-107) mmol/L BUN (9-20) mg/dL Glucose (74-99) mg/dL POC Glucose (mg/dL) 277 H 211 H 235 H (70-110) mg/dL Calcium (8.4-10.2) mg/dL 10/13/24 10/14/24 10/14/24 Range/Units 23:44 03:54 03:54 WBC 16.0 H (3.8-10.6) k/uL RBC 2.18 L (4.30-5.90) m/uL Hgb 7.9 L (13.0-17.5) gm/dL Hct 24.6 L (39.0-53.0) % MCV 112.8 H (80.0-100.0) fL MCH 36.2 H (25.0-35.0) pg Plt Count 102 L (150-450) k/uL Neutrophils # 14.2 H (1.3-7.7) k/uL Lymphocytes # 0.9 L (1.0-4.8) k/uL Macrocytosis Marked A ABG pH (7.35-7.45) ABG pO2 (83-108) mmHg ABG HCO3 (21-25) mmol/L ABG Total CO2 (19-24) mmol/L Hemoglobin (13.0-17.5) gm/dL Sodium 148 H (137-145) mmol/L Chloride 117 H (98-107) mmol/L BUN 48 H (9-20) mg/dL Glucose 232 H (74-99) mg/dL POC Glucose (mg/dL) 269 H (70-110) mg/dL Calcium 7.1 L (8.4-10.2) mg/dL 10/14/24 10/14/24 10/14/24 Range/Units 03:56 04:24 08:02 WBC (3.8-10.6) k/uL RBC (4.30-5.90) m/uL Hgb (13.0-17.5) gm/dL Hct (39.0-53.0) % MCV (80.0-100.0) fL MCH (25.0-35.0) pg Plt Count (150-450) k/uL Neutrophils # (1.3-7.7) k/uL Lymphocytes # (1.0-4.8) k/uL Macrocytosis ABG pH 7.49 H (7.35-7.45) ABG pO2 73 L (83-108) mmHg ABG HCO3 30 H (21-25) mmol/L ABG Total CO2 31 H (19-24) mmol/L Hemoglobin 7.9 L (13.0-17.5) gm/dL Sodium (137-145) mmol/L Chloride (98-107) mmol/L BUN (9-20) mg/dL Glucose (74-99) mg/dL POC Glucose (mg/dL) 255 H 251 H (70-110) mg/dL Calcium (8.4-10.2) mg/dL Microbiology - Last 24 Hours (Table) 10/10/24 20:45 Anaerobic Culture - Preliminary Knee - Right Strep A 10/10/24 20:45 Gram Stain - Preliminary Knee - Right Wound Culture - Preliminary 10/08/24 06:16 Blood Culture - Final Blood Assessment and Plan Plan: Encephalopathy, multifactorial. The patient had delirium tremens and subsequently patient was treated for septic shock. The patient remains on propofol running at 30 mcg/kg/min. Hemodynamically stable at this point in time. CAT scan of the brain showed no acute abnormalities. Acute hypoxic respiratory failure, the patient has been intubated on 10/10/2024 following his knee surgery and the patient remains intubated on the mechanical ventilator Septic shock, currently off pressors Septic arthritis of the right knee secondary to strep group A in addition to a positive blood cultures with the same microorganism, currently on IV cefazolin Chronic alcohol abuse, with acute alcohol withdrawal syndrome. The patient remains sedated on propofol. Postop day #4, status post arthroscopy, with arthroscopic lavage and debridement of the right knee, partial medial meniscectomy and medial femoral condyle and medial tibial plateau chondroplasty. Status post fall, with rhabdomyolysis, secondary to immobility. Acute kidney injury, with acute tubular necrosis, secondary to sepsis, and rhabdomyolysis, recovered Lactic acidosis, resolved. Hyponatremia. History of coronary artery disease, with previous catheterization and stent placement. CHF with mild impairment LV function with an ejection fraction of 45% Diabetes mellitus. Gastroesophageal reflux disease. Hyperlipidemia. Hypertension. History of myocardial infarction. History of osteoarthritis. Plan: Continue sedation and consider switching this patient to Precedex Continue ventilator support Not ready for weaning yet as the patient remains encephalopathic Continue IV cefazolin Continue IV Lasix Discontinue the hydrochlorothiazide Continue vital high-protein for enteral feeding and nutritional support The patient is currently off pressors Monitor fever pattern Continue Levemir 20 units nightly along with Scale insulin coverage IV Protonix Monitor fluid balance Monitor neurological functions while the patient being off propofol. The patient will be switched to Precedex. Will continue to follow. This is a critical care evaluation that was done more than 30 minutes. Time with Patient: Greater than 30
--- NOTE | 2024-10-14 14:30 | P.PN ---
Subjective Progress Note Date: 10/14/24 64-year-old male who is being seen in the ICU due to hypovolemic shock and rhabdomyolysis. He is a poor historian due to altered mental status and unresponsiveness. All history is obtained from the chart. He initially presented to the emergency department after being found facedown on the ground with a contusion to his forehead and abrasions to his knee and left toes. She stated that he had been having nausea and vomiting for a day prior to being found down. He was noted to have diarrhea as well. Patient is a daily drinker and consumes about a fifth per day according to the notes he has not drank for the 2 days prior to this admission. He also has a history of type 1 diabetes mellitus. Initial EKG showed sinus tachycardia. Head/cervical spine CT showed no acute intracranial process and no acute fracture or traumatic subluxation of the cervical spine. Initial chest x-ray showed right middle lobe scarring/atelectasis, no acute pulmonary process. He had received 4 L of normal saline. Initial labs showed CK level of 18,113, WBCs 10.7, hemoglobin 12.5, sodium 126, creatinine 3.18 lactic acid 6.9, AST 401, ALT 65. Preliminary blood culture showed gram-positive cocci and patient was started on vancomycin. 24-hour interval change 10/12/2024 -- Patient is evaluated in the ICU. He remains intubated on mechanical ventilation - ABG shows pH 7.42, pCO2 38, pO2 74. - He is maintained on vasopressin 0.02 units/min, normal saline at 20 cc/h, IV hydrocortisone 50 mg every 6 hours, and Kefzol day 5. Labs are reviewed WBCs 17.4, hemoglobin 8.2, hematocrit 25.2, platelets 53, sodium 142, potassium 3.7, chloride 116, CO2 23, BUN 39, creatinine 1.18, gluc ose 258. Ionized calcium 4.4. Magnesium 1.8. Today's chest x-ray is unchanged. Wound culture gram stain of the right knee preliminary report shows rare gram positive cocci. 10/13/2024 Patient is seen and evaluated in ICU at bedside; remains on the mechanical ventilator. Discussed with nursing staff. Concerns about elevated blood sugars; patient was placed on home dose of Lantus which did not help much - Blood gases show pO2 72, pCO2 41, and pH is 7.42. - The patient is on propofol at 35 mcg/kg/min, saline at 20 cc an hour, and vital high-protein at 60, with goal of 70. Yesterday, he had a brief spontaneous breathing trial, and he did poorly. Today he will again have a spontaneous breathing trial, of pressure support of 5 and CPAP of 5. He continues on Ancef. White count 18.8, hemoglobin 8.2, hematocrit 25.8, platelet count 78,000. Sodium 144, potassium 4.1, chlorides 117, CO2 26, BUN 47, creatinine 1.18. Glucose is 340. Albumin is 2.1. Previous blood cultures from October 06 show group A streptococci. Chest x-ray shows bibasilar infiltrates. -- For hyperglycemia I will increase dose of Lantus and add insulin lispro every 4 hours; continue with current sliding scale 10/14/2024 Patient is seen in follow-up today continues on Precedex and attempting to wean maintained on mechanical ventilation with an FiO2 of 50% PEEP is 5. Per nursing staff attempting sedation holiday although did not go well yesterday. Patient is maintained on antibiotics with infectious disease following and patient is status post right knee aspiration with preliminary culture showing strep a with positive blood cultures. Patient continues with significant swelling especially the scrotal area maintained on IV Lasix and will continue. No discussion of PEG and trach as of yet and patient remains full code. Prognosis is guarded. Review of systems: Unable to assess as patient remains on mechanical ventilator Active Medications Acetaminophen (Acetaminophen Tab 325 Mg Tab) 650 mg PO Q4HR PRN PRN Reason: Fever and/or Mild Pain Albuterol/Ipratropium (Ipratropium-Albuterol 3 Ml Neb) 3 ml INHALATION RT-Q4H PRN PRN Reason: Shortness Of Breath Or Wheezing Last Admin: 10/11/24 11:55 Dose: 3 ml Albuterol/Ipratropium (Ipratropium-Albuterol 3 Ml Neb) 3 ml INHALATION RT-Q4H [facility] Last Admin: 10/14/24 07:57 Dose: 3 ml Chlorhexidine Gluconate (Chlorhexidine Gluconate 15 Ml Cup) 15 ml MUCOUS MEM BID [facility] Last Admin: 10/14/24 08:45 Dose: 15 ml Cholecalciferol (Cholecalciferol 25 Mcg (1000 Iu) Tablet) 50 mcg PO DAILY [facility] Last Admin: 10/14/24 08:47 Dose: 50 mcg Dextrose/Water (Dextrose 50% Syringe 50 Ml) 25 ml IVP PER PROTOCOL PRN; Protocol PRN Reason: Hypoglycemia Dextrose/Water (Dextrose 50% Syringe 50 Ml) 50 ml IVP PER PROTOCOL PRN; Protocol PRN Reason: Hypoglycemia Last Admin: 10/08/24 11:58 Dose: 50 ml Furosemide (Furosemide 10 Mg/Ml 2 Ml Vial) 20 mg IV Q12HR [facility] Last Admin: 10/14/24 08:47 Dose: 20 mg Haloperidol Lactate (Haloperidol Lactate 5 Mg/Ml 1 Ml Vial) 4 mg IVP Q4HR PRN PRN Reason: Moderate Agitation Haloperidol Lactate (Haloperidol Lactate 5 Mg/Ml 1 Ml Vial) 8 mg IVP Q4H PRN PRN Reason: SEVERE AGITATION Hydrocortisone Sodium Succinate (Hydrocortisone Succinate 100 Mg/2 Ml Vial) 50 mg IV Q6HR [facility] Last Admin: 10/14/24 05:18 Dose: 50 mg Hydromorphone HCl (Hydromorphone 0.5 Mg/0.5 Ml Syringe) 0.5 mg IVP Q2H PRN PRN Reason: Moderate Pain (Scale 4 to 6) Last Admin: 10/13/24 21:25 Dose: 0.5 mg Hydromorphone HCl (Hydromorphone 1 Mg/Ml 1 Ml Syringe) 1 mg IVP Q2H PRN PRN Reason: Severe Pain (Scale 7 to 10) Last Admin: 10/09/24 08:18 Dose: 1 mg Cefazolin Sodium 2 gm/ Sodium (Chloride) 50 mls @ 100 mls/hr IVPB Q8HR [facility]; Protocol Last Admin: 10/14/24 08:47 Dose: 100 mls/hr Sodium Chloride (Saline 0.9%) 1,000 mls @ 20 mls/hr IV .Q24H [facility] Last Admin: 10/13/24 20:04 Dose: Not Given Propofol 1,000 mg/ IV Solution 100 mls @ 7.704 mls/hr IV .[id number] [facility]; Protocol Last Admin: 10/14/24 04:40 Dose: 30 mcg/kg/min, 15.408 mls/hr Insulin Aspart (Insulin Aspart (Novolog) 100 Unit/Ml Vial) 0 unit SQ Q4HR [facility]; Protocol Last Admin: 10/14/24 08:46 Dose: 6 unit Insulin Aspart (Insulin Aspart (Novolog) 100 Unit/Ml Vial) 5 unit SQ Q4HR [facility]; Protocol Stop: 10/20/24 19:59 Last Admin: 10/14/24 08:45 Dose: 5 unit Insulin Detemir (Insulin Detemir (Levemir) 100 Unit/Ml Syr) 20 unit SQ HS [facility] Last Admin: 10/13/24 20:22 Dose: 20 unit Lorazepam (Lorazepam 2 Mg/Ml Inj) 1 mg IV Q1HR PRN PRN Reason: CIWA 10 to 15 Last Admin: 10/10/24 10:31 Dose: 1 mg Lorazepam (Lorazepam 2 Mg/Ml Inj) 1 mg IV Q2HR PRN PRN Reason: CIWA 8 or 9 Last Admin: 10/13/24 12:44 Dose: 1 mg Miscellaneous Information (Potassium Replacement Protocol 1 Each Misc) 1 each MISCELLANE DAILY PRN; Protocol PRN Reason: Per Protocol Miscellaneous Information (Magnesium Replacement Protocol 1 Each Misc) 1 each MISCELLANE DAILY PRN; Protocol PRN Reason: Per Protocol Naloxone HCl (Naloxone 0.4 Mg/Ml 1 Ml Vial) 0.2 mg IV Q2M PRN PRN Reason: Opioid Reversal Pantoprazole Sodium (Pantoprazole 40 Mg/10 Ml Vial) 40 mg IVP BID [facility] Last Admin: 10/14/24 08:46 Dose: 40 mg Petrolatum (Zinc Oxide Paste (Z-Guard) 1 Applic) 1 applic TOPICAL Q2HR PRN; Protocol PRN Reason: Wound Healing Physical exam: Gen: This is a 64-year-old male who is maintained on sedation along with mechanical ventilation with an FiO2 of 50% PEEP is 5, well-developed, elderly appearing, ill-appearing HEENT: Head is atraumatic, normocephalic. Pupils equal, round. Sclerae is anic teric. NECK: Supple. No JVD. No lymphadenopathy. No thyromegaly. LUNGS: Diminished breath sounds bilaterally otherwise clear to auscultation. No wheezes or rhonchi. No intercostal retractions. HEART: Regular rate and rhythm. No murmur. ABDOMEN: Soft. Somewhat taut, positive bowel sounds are present. No masses. No tenderness. EXTREMITIES: No pedal edema. No calf tenderness. Generalized upper and lower extremity edema along with scrotal swelling noted NEUROLOGICAL: Patient is currently maintained on mechanical ventilation with sedation, unable to completely assess Assessment: 1. Chronic alcohol abuse with acute alcohol withdrawal syndrome; [facility] protocol in place; patient remains on thiamine and Protonix. 2. Rhabdomyolysis secondary to immobility due to fall. Improving with IV hydration. We will continue to monitor strict STERLING's, daily weights, renal function electrolytes 3. Acute kidney injury secondary to ATN due to to septic shock and rhabdomyolysis. Improving; monitor renal function electrolytes; avoid nephrotoxins and hypotension. 4. Relative adrenal insufficiency. On IV hydrocortisone. 5. Transaminitis. Improving. 6. Streptococcus group A bacteremia. Currently on cefazolin per ID recommendation; continue to monitor CBC, CRP and procalcitonin. Possibly secondary to right knee infection 7. Hyponatremia, likely hypovolemic; resolved. 8. Type 1 diabetes mellitus; we will continue to monitor Accu-Cheks before every meal and at bedtime with insulin sliding scale. 9. History of coronary artery disease with previous catheterization and stent placement. 10. Hypertension; currently not on any antihypertensive medication. 11. Right knee pain with swelling, status post aspiration along with arthroscopic lavage, culture showing strep a with concerns of septic arthritis 12. Sepsis, present on admission possibly secondary to right knee arthritis with bacteremia GI prophylaxis DVT prophylaxis Full code Plan: Patient continues in the ICU with multiple consultations following maintained on IV antibiotics status post arthroscopy with lavage of the right knee and culture showing strep a awaiting finalized cultures. Repeat blood cultures thus far are negative and will continue on IV antibiotics with ID following Per nursing staff attempting sedation holiday to assess weaning parameters as patient remains on mechanical ventilation. Patient also using Precedex Follow-up on repeat labs and monitor kidney functions and electrolytes closely. Overall prognosis remains guarded at this time The impression and plan of care has been dictated by Mercy Gilmore, Nurse Practitioner as directed. Dr. Randall MD I have performed a history and examination and MDM of this patient, discussed the same with the dictator, and agree with the dictator's assessment and plan as written ,documented as a scribe. Based on total visit time, I have performed more than 50% of the visit. Objective - Vital Signs Vital signs: Vital Signs Temp 99.6 F 10/14/24 04:00 Pulse 96 10/14/24 07:59 Resp 18 10/14/24 07:00 BP 142/71 10/14/24 07:00 Pulse Ox 97 10/14/24 07:00 FiO2 50 10/14/24 07:59 Intake & Output 10/13/24 10/14/24 10/14/24 18:59 06:59 18:59 Intake Total 2810.559 2975.388 93 Output Total 2253 1510 175 Balance -818.792 -229.612 -82 Weight 92.8 kg Intake: IV 336 326 23 Pressure Bag 36 36 3 Sodium Chloride 0.9% 1, 200 240 20 000 ml @ 20 mls/hr IV . Q24H [facility] Rx#:[id number] ceFAZolin 2 gm In Sodium 100 50 Chloride 0.9% 50 ml @ 100 mls/hr IVPB Q8HR [facility] Rx# :[id number] Intake, IV Titration 228.208 34.388 Amount propofoL 1,000 mg In 228.208 34.388 Empty Bag 1 bag @ 15 MCG/ KG/MIN 7.704 mls/hr IV . [id number] [facility] Rx#:[id number] Tube Feeding 780 830 70 Other 90 90 Output: Urine 2253 1510 175 Other: Voiding Method Indwelling Catheter Indwelling Catheter # Bowel Movements 1 ABP, PAP, CO, CI - Last Documented Arterial Blood Pressure 152/45 - Labs CBC & Chem 7: 10/14/24 03:54 10/14/24 03:54 Labs: Abnormal Lab Results - Last 24 Hours (Table) 10/13/24 10/13/24 10/13/24 Range/Units 11:29 17:15 19:56 WBC (3.8-10.6) k/uL RBC (4.30-5.90) m/uL Hgb (13.0-17.5) gm/dL Hct (39.0-53.0) % MCV (80.0-100.0) fL MCH (25.0-35.0) pg Plt Count (150-450) k/uL Neutrophils # (1.3-7.7) k/uL Lymphocytes # (1.0-4.8) k/uL Macrocytosis ABG pH (7.35-7.45) ABG pO2 (83-108) mmHg ABG HCO3 (21-25) mmol/L ABG Total CO2 (19-24) mmol/L Hemoglobin (13.0-17.5) gm/dL Sodium (137-145) mmol/L Chloride (98-107) mmol/L BUN (9-20) mg/dL Glucose (74-99) mg/dL POC Glucose (mg/dL) 277 H 211 H 235 H (70-110) mg/dL Calcium (8.4-10.2) mg/dL 10/13/24 10/14/24 10/14/24 Range/Units 23:44 03:54 03:54 WBC 16.0 H (3.8-10.6) k/uL RBC 2.18 L (4.30-5.90) m/uL Hgb 7.9 L (13.0-17.5) gm/dL Hct 24.6 L (39.0-53.0) % MCV 112.8 H (80.0-100.0) fL MCH 36.2 H (25.0-35.0) pg Plt Count 102 L (150-450) k/uL Neutrophils # 14.2 H (1.3-7.7) k/uL Lymphocytes # 0.9 L (1.0-4.8) k/uL Macrocytosis Marked A ABG pH (7.35-7.45) ABG pO2 (83-108) mmHg ABG HCO3 (21-25) mmol/L ABG Total CO2 (19-24) mmol/L Hemoglobin (13.0-17.5) gm/dL Sodium 148 H (137-145) mmol/L Chloride 117 H (98-107) mmol/L BUN 48 H (9-20) mg/dL Glucose 232 H (74-99) mg/dL POC Glucose (mg/dL) 269 H (70-110) mg/dL Calcium 7.1 L (8.4-10.2) mg/dL 10/14/24 10/14/24 10/14/24 Range/Units 03:56 04:24 08:02 WBC (3.8-10.6) k/uL RBC (4.30-5.90) m/uL Hgb (13.0-17.5) gm/dL Hct (39.0-53.0) % MCV (80.0-100.0) fL MCH (25.0-35.0) pg Plt Count (150-450) k/uL Neutrophils # (1.3-7.7) k/uL Lymphocytes # (1.0-4.8) k/uL Macrocytosis ABG pH 7.49 H (7.35-7.45) ABG pO2 73 L (83-108) mmHg ABG HCO3 30 H (21-25) mmol/L ABG Total CO2 31 H (19-24) mmol/L Hemoglobin 7.9 L (13.0-17.5) gm/dL Sodium (137-145) mmol/L Chloride (98-107) mmol/L BUN (9-20) mg/dL Glucose (74-99) mg/dL POC Glucose (mg/dL) 255 H 251 H (70-110) mg/dL Calcium (8.4-10.2) mg/dL Microbiology - Last 24 Hours (Table) 10/10/24 20:45 Anaerobic Culture - Preliminary Knee - Right Strep A 10/10/24 20:45 Gram Stain - Preliminary Knee - Right Wound Culture - Preliminary 10/08/24 06:16 Blood Culture - Final Blood
--- NOTE | 2024-10-14 15:11 | P.PN ---
Progress Note - Text Progress Note Date: 10/14/24 Right knee septic arthropathy, postoperative day #4 status post diagnostic arthroscopy with lavage Bacteremia Complex medical patient Patient was evaluated at bedside today, he remains intubated in the ICU. Patient had family today at bedside. The portal sites to the right knee are well-healing sutures are in good position. We are still monitoring the patient and hopeful that he will be able to receive an MRI of the lumbar spine to rule out epidural abscess or other pathology. Please contact our service with any further questions regarding this patient, we will continue to follow
[2024-10-14 16:14] LABS: Glucose,Whole Blood 170 mg/dL (70-110)
[2024-10-14 19:57] LABS: Glucose,Whole Blood 205 mg/dL (70-110)
--- NOTE | 2024-10-14 20:14 | XR ---
EXAMINATION TYPE: XR chest 1V portable DATE OF EXAM: 10/14/2024 8:07 PM COMPARISON: Numerous prior chest radiograph, most recently dated 10/14/2024. CLINICAL INDICATION: Male, 64 years old with history of OG tube placement; [facility] TECHNIQUE: XR chest 1V portable Frontal view of the chest. FINDINGS: Cardiac silhouette within normal limits for size. Low lung volumes. Patchy bilateral opacities and small pleural effusions. Endotracheal tube is visualized terminating a pproximately 6 cm above the marvel. Enteric tube courses below the left hemidiaphragm with distal licha ehole and tip overlying the region of the stomach. No pneumothorax. IMPRESSION: 1. Patchy bilateral opacities and small effusions, similar to most recent prior study. 2. Support devices as above. [facility], , 10/14/2024 8:12 PM
[2024-10-14] MEDS: INSULIN DETEMIR (LEVEMIR) 100 UNIT/ML SYR SQ SCH (20:30)
[2024-10-14 23:36] LABS: Glucose,Whole Blood 139 mg/dL (70-110)
[2024-10-15] MEDS: METOPROLOL TARTRATE 50 MG TAB PO SCH (00:15)
[2024-10-15 01:14] LABS: Glucose,Whole Blood 123 mg/dL (70-110)
[2024-10-15 03:51] LABS: Glucose,Whole Blood 134 mg/dL (70-110)
[2024-10-15 04:04] LABS: Basophils % (A) 0 %; Eosinophils # (A) 0.1 k/uL (0-0.7); Eosinophils % (A) 0 %; HCT 24.7 % (39.0-53.0); HGB 7.9 gm/dL (13.0-17.5); Hypochromasia Moderate; Lymphocytes # (A) 1.3 k/uL (1.0-4.8); Lymphocytes % (A) 9 %; MCH 36.4 pg (25.0-35.0); MCHC 31.9 g/dL (31.0-37.0); Macrocytosis Marked; Mean Platelet Volume 10.7; Monocytes # (A) 0.4 k/uL (0-1.0); Monocytes % (A) 3 %; Neutrophils # (A) 13.4 k/uL (1.3-7.7); Neutrophils % (A) 87 %; Platelet Count 118 k/uL (150-450); RBC 2.17 m/uL (4.30-5.90); RDW 14.5 % (11.5-15.5); WBC 15.4 k/uL (3.8-10.6)
[2024-10-15 04:06] LABS: MCV 114.1 fL (80.0-100.0)
[2024-10-15 04:14] LABS: African American GFR (CKD) >90 (>60 ml/min/1.73 sqM); Anion Gap 1 mmol/L; Blood Urea Nitrogen 47 mg/dL (9-20); Carbon Dioxide 35 mmol/L (22-30); Chloride 115 mmol/L (98-107); Glucose 122 mg/dL (74-99); Magnesium 1.3 mg/dL (1.6-2.3); Non-African American GFR(CKD) 87 (>60 ml/min/1.73 sqM); Potassium 3.2 mmol/L (3.5-5.1); Sodium 151 mmol/L (137-145)
[2024-10-15] MEDS: MAGNESIUM SULFATE-D5W PMX 1 GM in DEXTROSE/WATER 1 100ML.BAG IVPB SCH (04:48)
[2024-10-15] MEDS: POTASSIUM BICARBONATE/CIT AC 20 MEQ TABLET.EFF NG-TUBE SCH (04:49)
[2024-10-15 05:29] LABS: ABG Base Excess 9.6 mmol/L; ABG HCO3 34 mmol/L (21-25); ABG Oxygen Saturation 95.3 % (94-97); ABG PCO2 43 mmHg (35-45); ABG PO2 68 mmHg (83-108); ABG TCO2 35 mmol/L (19-24)
--- NOTE | 2024-10-15 07:48 | XR ---
EXAMINATION TYPE: XR chest 1V portable DATE OF EXAM: 10/15/2024 COMPARISON: NONE CLINICAL INDICATION: Male, 64 years old with history of mechanical intubation; , TECHNIQUE: XR chest 1V portable views of the chest. FINDINGS: ET tube approximately 3.7 cm above marvel. NG tube stable. Postoperative changes overlying the cervic al spine. Degenerative changes spine arthropathy and shoulders. Limited inspiration with elevated rig ht hemidiaphragm. Small bilateral effusion. No pneumothorax. Bilateral lower lobe consolidation. IMPRESSION: 1. Stable bilateral infiltrate.. [facility], , 10/15/2024 7:46 AM
[2024-10-15 08:29] LABS: Glucose,Whole Blood 185 mg/dL (70-110)
[2024-10-15] MEDS ORDERED: DEXTROSE 5% IN WATER 1,000 ML IV SCH (10:30)
[2024-10-15] MEDS: CALCIUM GLUCONATE IN NACL 1 GM in SALINE 1 100ML.BAG IVPB ONE (11:22)
--- NOTE | 2024-10-15 11:26 | P.PN ---
Subjective patient is seen for follow-up for acute kidney injury. Renal function has improved. Patient remains on the vent. Sedation is being decreased. Urine output at 100 - 200 mL an hour. Serum creatinine at 0.94 mg/dL. Sodium increased to 151 Free water with tube feedings has been increased to 200 every 4 hours Objective - Vital Signs Vital signs: Vital Signs Temp 101.3 F H 10/15/24 08:00 Pulse 91 10/15/24 10:48 Resp 18 10/15/24 10:00 BP 94/49 10/15/24 10:00 Pulse Ox 98 10/15/24 10:00 FiO2 40 10/15/24 10:47 Intake & Output 10/14/24 10/15/24 10/15/24 18:59 06:59 18:59 Intake Total 4986.732 1315.417 412 Output Total 1950 1935 760 Balance -32.957 -556.583 -348 Weight 92.8 kg 91 kg Intake: IV 498 138 32 0.9NS 55 20 Dextrose 5% in Water 1, 300 000 ml @ 75 mls/hr IV . [id number] [facility] Rx#:[id number] Pressure Bag 33 33 12 Sodium Chloride 0.9% 1, 65 000 ml @ 20 mls/hr IV . Q24H [facility] Rx#:[id number] ceFAZolin 2 gm In Sodium 100 50 Chloride 0.9% 50 ml @ 100 mls/hr IVPB Q8HR [facility] Rx# :[id number] Intake, IV Titration 279.043 170.417 Amount Dexmedetomidine/0.9% NaCl 67.860 7.501 (Pmx) 400 mcg In Empty Bag 1 bag @ 0.2 MCG/KG/HR 4.64 mls/hr IV .[id number] [facility] Rx#:[id number] ceFAZolin 2 gm In Sodium 50 Chloride 0.9% 50 ml @ 100 mls/hr IVPB Q8HR [facility] Rx# :[id number] propofoL 1,000 mg In 161.183 162.916 Empty Bag 1 bag @ 15 MCG/ KG/MIN 7.704 mls/hr IV . [id number] [facility] Rx#:[id number] Tube Feeding 840 770 280 TPN/PPN 70 Dextrose 5% in Water 1, 70 000 ml @ 75 mls/hr IV . [id number] [facility] Rx#:[id number] Other 230 300 100 Output: Urine 1950 1935 760 Other: Voiding Method Indwelling Catheter Indwelling Catheter Indwelling Catheter ABP, PAP, CO, CI - Last Documented Arterial Blood Pressure 111/36 - Exam patient is sedated and on the vent. Examination of the heart S1 and S2 Examination of the lungs bilateral breath sounds are heard Abdomen is soft nontender Examination of lower extremities shows edema 1+. Discoloration of toes noted in left foot. - Labs CBC & Chem 7: 10/15/24 03:50 10/15/24 03:50 Labs: Abnormal Lab Results - Last 24 Hours (Table) 10/14/24 10/14/24 10/14/24 Range/Units 12:03 16:12 19:56 WBC (3.8-10.6) k/uL RBC (4.30-5.90) m/uL Hgb (13.0-17.5) gm/dL Hct (39.0-53.0) % MCV (80.0-100.0) fL MCH (25.0-35.0) pg Plt Count (150-450) k/uL Neutrophils # (1.3-7.7) k/uL Macrocytosis ABG pH (7.35-7.45) ABG pO2 (83-108) mmHg ABG HCO3 (21-25) mmol/L ABG Total CO2 (19-24) mmol/L Hemoglobin (13.0-17.5) gm/dL Sodium (137-145) mmol/L Potassium (3.5-5.1) mmol/L Chloride (98-107) mmol/L Carbon Dioxide (22-30) mmol/L BUN (9-20) mg/dL Glucose (74-99) mg/dL POC Glucose (mg/dL) 246 H 170 H 205 H (70-110) mg/dL Calcium (8.4-10.2) mg/dL Magnesium (1.6-2.3) mg/dL 10/14/24 10/15/24 10/15/24 Range/Units 23:34 01:12 03:50 WBC 15.4 H (3.8-10.6) k/uL RBC 2.17 L (4.30-5.90) m/uL Hgb 7.9 L (13.0-17.5) gm/dL Hct 24.7 L (39.0-53.0) % MCV 114.1 H (80.0-100.0) fL MCH 36.4 H (25.0-35.0) pg Plt Count 118 L (150-450) k/uL Neutrophils # 13.4 H (1.3-7.7) k/uL Macrocytosis Marked A ABG pH (7.35-7.45) ABG pO2 (83-108) mmHg ABG HCO3 (21-25) mmol/L ABG Total CO2 (19-24) mmol/L Hemoglobin (13.0-17.5) gm/dL Sodium (137-145) mmol/L Potassium (3.5-5.1) mmol/L Chloride (98-107) mmol/L Carbon Dioxide (22-30) mmol/L BUN (9-20) mg/dL Glucose (74-99) mg/dL POC Glucose (mg/dL) 139 H 123 H (70-110) mg/dL Calcium (8.4-10.2) mg/dL Magnesium (1.6-2.3) mg/dL 10/15/24 10/15/24 10/15/24 Range/Units 03:50 03:50 04:38 WBC (3.8-10.6) k/uL RBC (4.30-5.90) m/uL Hgb (13.0-17.5) gm/dL Hct (39.0-53.0) % MCV (80.0-100.0) fL MCH (25.0-35.0) pg Plt Count (150-450) k/uL Neutrophils # (1.3-7.7) k/uL Macrocytosis ABG pH 7.50 H (7.35-7.45) ABG pO2 68 L (83-108) mmHg ABG HCO3 34 H (21-25) mmol/L ABG Total CO2 35 H (19-24) mmol/L Hemoglobin 7.8 L (13.0-17.5) gm/dL Sodium 151 H (137-145) mmol/L Potassium 3.2 L (3.5-5.1) mmol/L Chloride 115 H (98-107) mmol/L Carbon Dioxide 35 H (22-30) mmol/L BUN 47 H (9-20) mg/dL Glucose 122 H (74-99) mg/dL POC Glucose (mg/dL) 134 H (70-110) mg/dL Calcium 7.0 L (8.4-10.2) mg/dL Magnesium 1.3 L (1.6-2.3) mg/dL 10/15/24 Range/Units 08:26 WBC (3.8-10.6) k/uL RBC (4.30-5.90) m/uL Hgb (13.0-17.5) gm/dL Hct (39.0-53.0) % MCV (80.0-100.0) fL MCH (25.0-35.0) pg Plt Count (150-450) k/uL Neutrophils # (1.3-7.7) k/uL Macrocytosis ABG pH (7.35-7.45) ABG pO2 (83-108) mmHg ABG HCO3 (21-25) mmol/L ABG Total CO2 (19-24) mmol/L Hemoglobin (13.0-17.5) gm/dL Sodium (137-145) mmol/L Potassium (3.5-5.1) mmol/L Chloride (98-107) mmol/L Carbon Dioxide (22-30) mmol/L BUN (9-20) mg/dL Glucose (74-99) mg/dL POC Glucose (mg/dL) 185 H (70-110) mg/dL Calcium (8.4-10.2) mg/dL Magnesium (1.6-2.3) mg/dL Microbiology - Last 24 Hours (Table) 10/10/24 20:45 Anaerobic Culture - Final Knee - Right Strep A 10/10/24 20:45 Gram Stain - Final Knee - Right Wound Culture - Final 10/09/24 05:12 Blood Culture - Final Blood 10/10/24 12:04 Anaerobic Culture - Final Knee - Right Assessment and Plan Assessment: 1. Acute kidney injury secondary to ATN secondary to septic shock and rhabdomyolysis. Creatinine 3.18 on admission and is improved to 0.9. Baseline creatinine near 1. No hydronephrosis noted on kidney ultrasound. 2. Rhabdomyolysis secondary to immobility. CK levels trending down. 3. Strep bacteremia on antibiotics. 4. Anion gap metabolic acidosis secondary to acute kidney injury and lactic acidosis. Now due to IV fluids. Status post bicarb drip. 5. Hyponatremia secondary to hypovolemia as well as acute kidney injury. Better. 6. Hypomagnesemia from poor intake and alcohol abuse. Replaced. 7. History of alcohol abuse. 8. Hypocalcemia, replaced. 25-hydroxy vitamin D was 26.5, started on supplementation. 9. Hypokalemia from poor intake. Replaced. Better. 10. A-fib with RVR status post amiodarone drip. 11. Volume overload with significant scrotal edema Plan: replace potassium Continue with increased free water D5W currently on hold due to significant hyperglycemia. Repeat sodium this evening check PTH as calcium remains on the lower side
[2024-10-15 11:38] LABS: Glucose,Whole Blood 178 mg/dL (70-110)
--- NOTE | 2024-10-15 12:41 | P.PN ---
Subjective Progress Note Date: 10/15/24 Patient is a 64-year-old male who is being seen in the ICU due to hypovolemic shock and rhabdomyolysis. He is a poor historian due to altered mental status and unresponsiveness. All history is obtained from the chart. He initially presented to the emergency department after being found facedown on the ground with a contusion to his forehead and abrasions to his knee and left toes. She stated that he had been having nausea and vomiting for a day prior to being found down. He was noted to have diarrhea as well. Patient is a daily drinker and consumes about a fifth per day according to the notes he has not drank for the 2 days prior to this admission. He also has a history of type 1 diabetes mellitus. Initial EKG showed sinus tachycardia. Head/cervical spine CT showed no acute intracranial process and no acute fracture or traumatic subluxation of the cervical spine. Initial chest x-ray showed right middle lobe scarring/atelectasis, no acute pulmonary process. He had received 4 L of normal saline. Initial labs showed CK level of 18,113, WBCs 10.7, hemoglobin 12.5, sodium 126, creatinine 3.18 lactic acid 6.9, AST 401, ALT 65. Preliminary blood culture showed gram-positive cocci and patient was started on vancomycin. 10/07/2024. He is maintained on a bicarb drip as well as normal saline. He remains unresponsive to verbal stimulation. He is maintained on CIWA protocol. Labs today: WBCs 5.1, hemoglobin 11.6, sodium 126, potassium 3.8, BUN 53, creatinine 3.12, ammonia <9. Progress note dated October 08, 2024. 64-year-old male seen in room 252. I was notified by the nurse at nighttime, that the patient's blood pressure continued to drop. We bumped up his dose of n orepinephrine, and gave him a liter of fluid. In addition, his respiratory status was marginal, and the blood gas was ordered. The patient is currently on 6 L of oxygen. The patient was admitted on October 06. He is getting saline at 150 cc an hour, and Precedex at 0.4 mcg/kg/h. His norepinephrine is running at 31 mcg/min. There is staphylococci in his blood. I have asked the nurses to add Ativan Dilaudid and Haldol to his regimen, to try to wean him off the dexmedetomidine. White count of 9.1, hemoglobin hematocrit 29, platelet count 88,000. Sodium 131, potassium 3, chloride 92, CO2 32, BUN 50, creatinine 2.34. Glucose is 167. Calcium is 6.3. CK was 8796. AST is 507. ALT is 136. Albumin is 2.2. Blood cultures from the were positive for Streptococcus group A. Chest x-ray shows bilateral effusions, small, with low lung volumes. 10/09/2024. Patient seen as a followup. No acute events overnight. He is currently on 6 L of oxygen. He was on dextrose 5% - 0.9% NaCl, blood sugars have been in the mid to high 200s. He is receiving Kefzol for streptococcal group A bacteremia. Precedex has been turned off. Levophed is 0.3 mcg/kg/min. WBCs 12.3, hemoglobin 9.7, hematocrit 27.7, platelets 48. Sodium 133, potassium 3.7, chloride 105, CO2 19, BUN 42, creatinine 1.62. Glucose 267. Calcium 6.4. CK 3888. AST 323, ALT 78. Albumin 2.2. Today's chest x-ray showed cardiomegaly, pulmonary vascular congestion, and bilateral pleural effusions. 10/10/2024. Patient is being seen as a followup in the ICU. Overnight he went into A-fib with rapid ventricular rate, was started on an amiodarone drip at 1mg/min, and converted back to normal sinus rhythm. His pressures remain in the 100s/40s and pulses are He is currently on 15 L high flow oxygen. He is on no rmal saline at 150 cc/h. He is maintained on Kefzol for streptococcal group A bactermia, today is day 3. Levophed is at 0.11 mcg/kg/min, vasopressin at 0.02 mcg/kg/min. WBCs 16.4, hemoglobin 9.8, hematocrit 29.6, platelets 38. Sodium 138, potassium 3.5, chloride 112, CO2 23, BUN 35, creatinine 1.26, glucose 164. Ionized calcium 4.1. CK 988. AST 154, ALT 36. Cortisol 32. TSH 4.3830. In addition, he removed his NG tube overnight. Today's chest x-ray is unchanged from previous. He remains lethargic and barely responsive to verbal stimulation. 10/11/2024. Patient is seen in the ICU. He underwent arthroscopic lavage of the right knee yesterday evening and returned to the ICU intubated on mechanical ventilation. He is currently on assist-control mode with rate 18, tidal volume 450, FiO2 70%, PEEP 5. ABG shows pH 7.34, pCO2 37, pO2 95. He is maintained on vasopressin 0.02 units/min, Levophed 0.14 mcg/kg/min, normal saline at 100 cc/h, and Kefzol day 4. WBCs 18.1, hemoglobin 8.8, hematocrit 27.6, platelets 52, sodium 140, potassium 3.9, chloride 115, CO2 17, BUN 35, creatinine 1.08, glucose 191, creatinine kinase 215. Calcium 6.5. Magnesium 1.6. He began IV hydrocortisone 50 mg every 6 hours yesterday. Liver ultrasound performed yesterday revealed no acute process. Chest x-ray today is unchanged from previous. 10/12/2024. Patient is evaluated in the ICU. He remains intubated on mechanical ventilation on assist-control mode with rate 18, tidal volume 450, Fi O2 50%, PEEP 5. ABG shows pH 7.42, pCO2 38, pO2 74. His RSBI yesterday was 110 and he was unable to follow commands so he could not be extubated. He is maintained on vasopressin 0.02 units/min, normal saline at 20 cc/h, IV hydrocortisone 50 mg every 6 hours, and Kefzol day 5. WBCs 17.4, hemoglobin 8.2, hematocrit 25.2, platelets 53, sodium 142, potassium 3.7, chloride 116, CO2 23, BUN 39, creatinine 1.18, glucose 258. Ionized calcium 4.4. Magnesium 1.8. Today's chest x-ray is unchanged. Wound culture gram stain of the right knee preliminary report shows rare gram positive cocci. Progress note dated October 13, 2024. 64-year-old male seen in the intensive care unit, room 252. The patient remains on the mechanical ventilator. He is on volume assist-control, rate 18, tidal volume 450, FiO2 50%, PEEP of 5. Blood gases show pO2 72, pCO2 41, and pH is 7.42. The patient is on propofol at 35 mcg/kg/min, saline at 20 cc an hour, and vital high-protein at 60, with goal of 70. Yesterday, he had a brief spontaneous breathing trial, and he did poorly. Today he will again have a s pontaneous breathing trial, of pressure support of 5 and CPAP of 5. He continues on Ancef. White count 18.8, hemoglobin 8.2, hematocrit 25.8, platelet count 78,000. Sodium 144, potassium 4.1, chlorides 117, CO2 26, BUN 47, creatinine 1.18. Glucose is 340. Albumin is 2.1. Previous blood cultures from October 06 show group A streptococci. Chest x-ray shows bibasilar infiltrates. Today's evaluation of 10/14/2024, the patient is being seen for a follow-up. The patient remains intubated on mechanical ventilator. The patient remains encephalopathic. The patient has history of alcoholism and he was treated for alcohol withdrawal/delirium tremens. The patient was also found to be septic with septic right knee arthritis and secondary bacteremia sepsis with MSSA and the patient is postop day #4 following arthroscopic lavage and debridement of the right knee. The rhabdomyolysis has improved. The patient remains on broad- spectrum antibiotics and the patient remains on IV cefazolin. On today's evaluation, the patient remains sedated on propofol running at 30 mcg/kg/min. He is on the mechanical ventilator, assist-control mode with a rate of 18, tidal volume of 450, FiO2 of 30% with a PEEP of 5. The blood gas showed a pH of 7.49 with a pCO2 of 40 and pO2 of 73. The follow-up chest x-ray from this morning shows stable bilateral lower lobe pulmonary infiltrates. No other acute abnormalities have been noted on today's chest x-ray. Noted the patient has been off norepinephrine and off vasopressin. The patient is currently being diuresed with IV Lasix. The fluid balance over the past 24 hours is -1 L. Noted the patient was significantly in the past fluid balance as the patient was being resuscitated with IV fluids regarding his underlying septic shock. The patient remains on hydrocortisone stress dose. The patient remains on vital high-protein at rate of 70 cc an hour. Afebrile. Producing adequate amount of urine output. WBC count is at 16 with a hemoglobin 7.9 and a platelet count of 102. The platelet count has been improving steadily. The patient's BUN is 48 with a creatinine of 1.05. Sodium levels at 148, bicarb is at 30, glucose at 232, BUN is 48 with a creatinine of 1.05. CPK level has down trended. Alkaline phosphatase 555 with an AST of 44 and an ALT of 10. The cultures from the joints/right knee was positive for strep group A and the blood cultures showed a similar bacteria. On 10/15/2024, the patient remains intubated on the mechanical ventilator. This morning, the patient is on propofol at 30 mcg/kg/min. The patient was taken off the propofol yesterday and he was started on Precedex. He was following some simple commands. Nevertheless, he became restless and tachypneic and based on that, overnight, the patient was started back on propofol which is currently running at 30 mcg/kg/min. He remains on the mechanical ventilator, assist- control mode with rate of 22, tidal volume of 500, FiO2 50% with a PEEP of 5. Blood gas showed pH of 7.5 with a pCO2 of 43 and pO2 of 68. The patient is on IV fluids at KVO. He is receiving water 100 cc every 4 hours through the NG. The patient is on vital high-protein at rate of 70 cc an hour. He remains on IV Lasix 20 mg every 12 hours. The fluid balance over the past 24 hours is -1 L. The follow-up chest x-ray from today shows no significant interval change. The patient continues to have some stable bibasilar pulmonary filtrates and small effusions. Hemodynamically stable on no pressors. No other significant events overnight. He remains on IV cefazolin regarding his MSSA septicemia and septic arthritis. Remains on Levemir insulin 15 units twice daily and NovoLog sliding scale coverage. No agitation. The patient's white cell count is 15.4, hemoglobin 7.9, platelet is 118, sodium is at 151 with a potassium level of 3.2, BUN is 47 with a creatinine of 0.9.. Objective - Vital Signs Vital signs: Vital Signs Temp 101.3 F H 10/15/24 08:00 Pulse 104 H 10/15/24 09:00 Resp 24 10/15/24 09:00 BP 131/65 10/15/24 09:00 Pulse Ox 96 10/15/24 09:00 FiO2 50 10/15/24 08:04 Intake & Output 10/14/24 10/15/24 10/15/24 18:59 06:59 18:59 Intake Total 1233.861 5751.417 334 Output Total 1949 1934 535 Balance -32.957 -556.583 -201 Weight 92.8 kg 91 kg Intake: IV 498 138 24 0.9NS 55 15 Dextrose 5% in Water 1, 300 000 ml @ 75 mls/hr IV . [id number] [facility] Rx#:[id number] Pressure Bag 33 33 9 Sodium Chloride 0.9% 1, 65 000 ml @ 20 mls/hr IV . Q24H [facility] Rx#:[id number] ceFAZolin 2 gm In Sodium 100 50 Chloride 0.9% 50 ml @ 100 mls/hr IVPB Q8HR [facility]O Rx# :[id number] Intake, IV Titration 279.043 170.417 Amount Dexmedetomidine/0.9% NaCl 67.860 7.501 (Pmx) 400 mcg In Empty Bag 1 bag @ 0.2 MCG/KG/HR 4.64 mls/hr IV .[id number] P[facility]O Rx#:[id number] ceFAZolin 2 gm In Sodium 50 Chloride 0.9% 50 ml @ 100 mls/hr IVPB Q8HR [facility] Rx# :[id number] propofoL 1,000 mg In 161.183 162.916 Empty Bag 1 bag @ 15 MCG/ KG/MIN 7.704 mls/hr IV . [id number] [facility] Rx#:[id number] Tube Feeding 840 770 210 TPN/PPN 70 Dextrose 5% in Water 1, 70 000 ml @ 75 mls/hr IV . [id number] [facility] Rx#:[id number] Other 230 300 100 Output: Urine 1949 1934 535 Other: Voiding Method Indwelling Catheter Indwelling Catheter ABP, PAP, CO, CI - Last Documented Arterial Blood Pressure 163/54 - Exam Sedated, with an orally placed endotracheal tube. The patient is calm comfortable, orogastric and orotracheal tube are both in place. Head exam was generally normal. There was no scleral icterus or corneal arcus. Mucous membranes were moist. Neck supple. Full range of motion. No adenopathy thyromegaly or neck vein di stention. Cardiovascular examination reveals regular rhythm rate. S1-S2 normal. No S3 or S4. No discernible murmur noted. Lungs reveal mild scattered rhonchi. No wheezes or crackles. Breath sounds equal. Abdomen soft, without bowel sounds. No masses or tenderness. Extremities are intact. No cyanosis clubbing or edema. Skin reveals multiple abrasions and bruises. Neurologic examination cannot be currently evaluated. - Labs CBC & Chem 7: 10/15/24 03:50 10/15/24 03:50 Labs: Abnormal Lab Results - Last 24 Hours (Table) 10/14/24 10/14/24 10/14/24 Range/Units 12:03 16:12 19:56 WBC (3.8-10.6) k/uL RBC (4.30-5.90) m/uL Hgb (13.0-17.5) gm/dL Hct (39.0-53.0) % MCV (80.0-100.0) fL MCH (25.0-35.0) pg Plt Count (150-450) k/uL Neutrophils # (1.3-7.7) k/uL Macrocytosis ABG pH (7.35-7.45) ABG pO2 (83-108) mmHg ABG HCO3 (21-25) mmol/L ABG Total CO2 (19-24) mmol/L Hemoglobin (13.0-17.5) gm/dL Sodium (137-145) mmol/L Potassium (3.5-5.1) mmol/L Chloride (98-107) mmol/L Carbon Dioxide (22-30) mmol/L BUN (9-20) mg/dL Glucose (74-99) mg/dL POC Glucose (mg/dL) 246 H 170 H 205 H (70-110) mg/dL Calcium (8.4-10.2) mg/dL Magnesium (1.6-2.3) mg/dL 10/14/24 10/15/24 10/15/24 Range/Units 23:34 01:12 03:50 WBC 15.4 H (3.8-10.6) k/uL RBC 2.17 L (4.30-5.90) m/uL Hgb 7.9 L (13.0-17.5) gm/dL Hct 24.7 L (39.0-53.0) % MCV 114.1 H (80.0-100.0) fL MCH 36.4 H (25.0-35.0) pg Plt Count 118 L (150-450) k/uL Neutrophils # 13.4 H (1.3-7.7) k/uL Macrocytosis Marked A ABG pH (7.35-7.45) ABG pO2 (83-108) mmHg ABG HCO3 (21-25) mmol/L ABG Total CO2 (19-24) mmol/L Hemoglobin (13.0-17.5) gm/dL Sodium (137-145) mmol/L Potassium (3.5-5.1) mmol/L Chloride (98-107) mmol/L Carbon Dioxide (22-30) mmol/L BUN (9-20) mg/dL Glucose (74-99) mg/dL POC Glucose (mg/dL) 139 H 123 H (70-110) mg/dL Calcium (8.4-10.2) mg/dL Magnesium (1.6-2.3) mg/dL 10/15/24 10/15/24 10/15/24 Range/Units 03:50 03:50 04:38 WBC (3.8-10.6) k/uL RBC (4.30-5.90) m/uL Hgb (13.0-17.5) gm/dL Hct (39.0-53.0) % MCV (80.0-100.0) fL MCH (25.0-35.0) pg Plt Count (150-450) k/uL Neutrophils # (1.3-7.7) k/uL Macrocytosis ABG pH 7.50 H (7.35-7.45) ABG pO2 68 L (83-108) mmHg ABG HCO3 34 H (21-25) mmol/L ABG Total CO2 35 H (19-24) mmol/L Hemoglobin 7.8 L (13.0-17.5) gm/dL Sodium 151 H (137-145) mmol/L Potassium 3.2 L (3.5-5.1) mmol/L Chloride 115 H (98-107) mmol/L Carbon Dioxide 35 H (22-30) mmol/L BUN 47 H (9-20) mg/dL Glucose 122 H (74-99) mg/dL POC Glucose (mg/dL) 134 H (70-110) mg/dL Calcium 7.0 L (8.4-10.2) mg/dL Magnesium 1.3 L (1.6-2.3) mg/dL 10/15/24 Range/Units 08:26 WBC (3.8-10.6) k/uL RBC (4.30-5.90) m/uL Hgb (13.0-17.5) gm/dL Hct (39.0-53.0) % MCV (80.0-100.0) fL MCH (25.0-35.0) pg Plt Count (150-450) k/uL Neutrophils # (1.3-7.7) k/uL Macrocytosis ABG pH (7.35-7.45) ABG pO2 (83-108) mmHg ABG HCO3 (21-25) mmol/L ABG Total CO2 (19-24) mmol/L Hemoglobin (13.0-17.5) gm/dL Sodium (137-145) mmol/L Potassium (3.5-5.1) mmol/L Chloride (98-107) mmol/L Carbon Dioxide (22-30) mmol/L BUN (9-20) mg/dL Glucose (74-99) mg/dL POC Glucose (mg/dL) 185 H (70-110) mg/dL Calcium (8.4-10.2) mg/dL Magnesium (1.6-2.3) mg/dL Microbiology - Last 24 Hours (Table) 10/10/24 20:45 Anaerobic Culture - Final Knee - Right Strep A 10/10/24 20:45 Gram Stain - Final Knee - Right Wound Culture - Final 10/09/24 05:12 Blood Culture - Final Blood 10/10/24 12:04 Anaerobic Culture - Final Knee - Right Assessment and Plan Plan: Encephalopathy, multifactorial. The patient had delirium tremens and subsequently patient was treated for septic shock. The patient remains on propofol running at 30 mcg/kg/min. Hemodynamically stable at this point in time. CAT scan of the brain showed no acute abnormalities. Failed a sedation holiday yesterday. Attempted to put the patient on Precedex which failed failed to control his agitation and security with the mechanical ventilator. Based on that, the patient was started back on propofol. Acute hypoxic respiratory failure, the patient has been intubated on 10/10/2024 following his knee surgery and the patient remains intubated on the mechanical ventilator, chest x-ray is unchanged and the patient continues to have atelectatic changes and small infiltrates in the lung base bilaterally Septic shock, currently off pressors Septic arthritis of the right knee secondary to strep group A in addition to a positive blood cultures with the same microorganism, currently on IV cefazolin Chronic alcohol abuse, with acute alcohol withdrawal syndrome. The patient remains sedated on propofol. Postop day # 5, status post arthroscopy, with arthroscopic lavage and debridement of the right knee, partial medial meniscectomy and medial femoral condyle and medial tibial plateau chondroplasty. Status post fall, with rhabdomyolysis, secondary to immobility. Acute kidney injury, with acute tubular necrosis, secondary to sepsis, and rhabdomyolysis, recovered Lactic acidosis, resolved. Hyponatremia, currently on IV Lasix History of coronary artery disease, with previous catheterization and stent placement. CHF with mild impairment LV function with an ejection fraction of 45% Diabetes mellitus. Gastroesophageal reflux disease. Hyperlipidemia. Hypertension. History of myocardial infarction. History of osteoarthritis. Plan: Continue sedation with propofol, and attempt to give the patient another sedation holiday today Continue ventilator support, no changes Not ready for weaning yet as the patient remains encephalopathic Continue IV cefazolin Discontinue IV Lasix Increase free water to 200 cc every 4 hours Continue vital high-protein for enteral feeding and nutritional support The patient is currently off pressors Monitor fever pattern Continue Levemir 15 units nightly along with Scale insulin coverage IV Protonix Monitor fluid balance Monitor neurological functions while the patient being off propofol. Will continue to follow. This is a critical care evaluation that was done more than 30 minutes. Time with Patient: Greater than 30
--- NOTE | 2024-10-15 12:52 | P.PN ---
Subjective Progress Note Date: 10/15/24 Principal diagnosis: Reason for follow-up is Streptococcus agalactiae bacteremia Patient is a 64-year-old male past medical history significant for diabetes mellitus hypertension hyperlipidemia PA osteoarthritis coronary disease patient was brought into the hospital after apparently the patient was found to be facedown on the ground with contusion to his forehead and abrasion to his knee and some bloody toes, patient did have a fever subsequently blood cultures came back positive with Streptococcus agalactiae prompting this consultation. Patient noticed to have swelling of the right knee aspirate was purulent subsequently the patient did have a right knee washout completed by orthopedics on 10/10/2024. On today's evaluation that is 10/15/2024, patient has been afebrile, patient is currently on the ventilator FiO2 is stable at 40% getting weaning trials with a possible plan for extubation today as reported by the nursing staff patient is hemodynamically stable not requiring any pressor support and no diarrhea has been reported. The patient white count is down to 15.4, creatinine 0.94 Objective - Vital Signs Vital signs: Vital Signs Temp 101.3 F H 10/15/24 08:00 Pulse 91 10/15/24 10:48 Resp 18 10/15/24 10:00 BP 94/49 10/15/24 10:00 Pulse Ox 98 10/15/24 10:00 FiO2 40 10/15/24 10:47 Intake & Output 10/14/24 10/15/24 10/15/24 18:59 06:59 18:59 Intake Total 1510.287 8607.417 412 Output Total 1950 1935 760 Balance -32.957 -556.583 -348 Weight 92.8 kg 91 kg Intake: IV 498 138 32 0.9NS 55 20 Dextrose 5% in Water 1, 300 000 ml @ 75 mls/hr IV . [id number] [facility] Rx#:[id number] Pressure Bag 33 33 12 Sodium Chloride 0.9% 1, 65 000 ml @ 20 mls/hr IV . Q24H [facility] Rx#:[id number] ceFAZolin 2 gm In Sodium 100 50 Chloride 0.9% 50 ml @ 100 mls/hr IVPB Q8HR [facility] Rx# :[id number] Intake, IV Titration 279.043 170.417 Amount Dexmedetomidine/0.9% NaCl 67.860 7.501 (Pmx) 400 mcg In Empty Bag 1 bag @ 0.2 MCG/KG/HR 4.64 mls/hr IV .[id number] [facility] Rx#:[id number] ceFAZolin 2 gm In Sodium 50 Chloride 0.9% 50 ml @ 100 mls/hr IVPB Q8HR [facility] Rx# :[id number] propofoL 1,000 mg In 161.183 162.916 Empty Bag 1 bag @ 15 MCG/ KG/MIN 7.704 mls/hr IV . [id number] [facility] Rx#:[id number] Tube Feeding 840 770 280 TPN/PPN 70 Dextrose 5% in Water 1, 70 000 ml @ 75 mls/hr IV . [id number] [facility] Rx#:[id number] Other 230 300 100 Output: Urine 1950 1935 760 Other: Voiding Method Indwelling Catheter Indwelling Catheter Indwelling Catheter ABP, PAP, CO, CI - Last Documented Arterial Blood Pressure 111/36 - Exam GENERAL DESCRIPTION: Middle-age male intubated on the vent RESPIRATORY SYSTEM: Unlabored breathing , decreased breath sounds at bases HEART: S1 S2 regular rate and rhythm , ABDOMEN: Soft , no tenderness EXTREMITIES: Swelling to the lower extremity and right knee but no redness - Labs CBC & Chem 7: 10/15/24 03:50 10/15/24 03:50 Labs: Abnormal Lab Results - Last 24 Hours (Table) 10/14/24 10/14/24 10/14/24 Range/Units 16:12 19:56 23:34 WBC (3.8-10.6) k/uL RBC (4.30-5.90) m/uL Hgb (13.0-17.5) gm/dL Hct (39.0-53.0) % MCV (80.0-100.0) fL MCH (25.0-35.0) pg Plt Count (150-450) k/uL Neutrophils # (1.3-7.7) k/uL Macrocytosis ABG pH (7.35-7.45) ABG pO2 (83-108) mmHg ABG HCO3 (21-25) mmol/L ABG Total CO2 (19-24) mmol/L Hemoglobin (13.0-17.5) gm/dL Sodium (137-145) mmol/L Potassium (3.5-5.1) mmol/L Chloride (98-107) mmol/L Carbon Dioxide (22-30) mmol/L BUN (9-20) mg/dL Glucose (74-99) mg/dL POC Glucose (mg/dL) 170 H 205 H 139 H (70-110) mg/dL Calcium (8.4-10.2) mg/dL Magnesium (1.6-2.3) mg/dL 10/15/24 10/15/24 10/15/24 Range/Units 01:12 03:50 03:50 WBC 15.4 H (3.8-10.6) k/uL RBC 2.17 L (4.30-5.90) m/uL Hgb 7.9 L (13.0-17.5) gm/dL Hct 24.7 L (39.0-53.0) % MCV 114.1 H (80.0-100.0) fL MCH 36.4 H (25.0-35.0) pg Plt Count 118 L (150-450) k/uL Neutrophils # 13.4 H (1.3-7.7) k/uL Macrocytosis Marked A ABG pH (7.35-7.45) ABG pO2 (83-108) mmHg ABG HCO3 (21-25) mmol/L ABG Total CO2 (19-24) mmol/L Hemoglobin (13.0-17.5) gm/dL Sodium 151 H (137-145) mmol/L Potassium 3.2 L (3.5-5.1) mmol/L Chloride 115 H (98-107) mmol/L Carbon Dioxide 35 H (22-30) mmol/L BUN 47 H (9-20) mg/dL Glucose 122 H (74-99) mg/dL POC Glucose (mg/dL) 123 H (70-110) mg/dL Calcium 7.0 L (8.4-10.2) mg/dL Magnesium 1.3 L (1.6-2.3) mg/dL 10/15/24 10/15/24 10/15/24 Range/Units 03:50 04:38 08:26 WBC (3.8-10.6) k/uL RBC (4.30-5.90) m/uL Hgb (13.0-17.5) gm/dL Hct (39.0-53.0) % MCV (80.0-100.0) fL MCH (25.0-35.0) pg Plt Count (150-450) k/uL Neutrophils # (1.3-7.7) k/uL Macrocytosis ABG pH 7.50 H (7.35-7.45) ABG pO2 68 L (83-108) mmHg ABG HCO3 34 H (21-25) mmol/L ABG Total CO2 35 H (19-24) mmol/L Hemoglobin 7.8 L (13.0-17.5) gm/dL Sodium (137-145) mmol/L Potassium (3.5-5.1) mmol/L Chloride (98-107) mmol/L Carbon Dioxide (22-30) mmol/L BUN (9-20) mg/dL Glucose (74-99) mg/dL POC Glucose (mg/dL) 134 H 185 H (70-110) mg/dL Calcium (8.4-10.2) mg/dL Magnesium (1.6-2.3) mg/dL 10/15/24 Range/Units 11:37 WBC (3.8-10.6) k/uL RBC (4.30-5.90) m/uL Hgb (13.0-17.5) gm/dL Hct (39.0-53.0) % MCV (80.0-100.0) fL MCH (25.0-35.0) pg Plt Count (150-450) k/uL Neutrophils # (1.3-7.7) k/uL Macrocytosis ABG pH (7.35-7.45) ABG pO2 (83-108) mmHg ABG HCO3 (21-25) mmol/L ABG Total CO2 (19-24) mmol/L Hemoglobin (13.0-17.5) gm/dL Sodium (137-145) mmol/L Potassium (3.5-5.1) mmol/L Chloride (98-107) mmol/L Carbon Dioxide (22-30) mmol/L BUN (9-20) mg/dL Glucose (74-99) mg/dL POC Glucose (mg/dL) 178 H (70-110) mg/dL Calcium (8.4-10.2) mg/dL Magnesium (1.6-2.3) mg/dL Microbiology - Last 24 Hours (Table) 10/10/24 20:45 Anaerobic Culture - Final Knee - Right Strep A 10/10/24 20:45 Gram Stain - Final Knee - Right Wound Culture - Final 10/09/24 05:12 Blood Culture - Final Blood 10/10/24 12:04 Anaerobic Culture - Final Knee - Right Assessment and Plan (1) Sepsis Current Visit: Yes Status: Acute Code(s): A41.9 - SEPSIS, UNSPECIFIED ORGANISM SNOMED Code(s): 54235115 (2) Streptococcal bacteremia Current Visit: Yes Status: Acute Code(s): R78.81 - BACTEREMIA; B95.5 - UNSP STREPTOCOCCUS THE CAUSE OF DISEASES CL[facility]SD [facility] SNOMED Code(s): 753285705033 Plan: 1patient presented to the hospital with sepsis in this patient who did have fever tachycardia elevated white count and now with evidence of streptococcal bacteremia which is usually of skin and soft tissue origin 2-patient noticed to have right knee effusion has been evaluated by orthopedics and is status post aspiration with purulent drainage subsequently did have right knee washout by orthopedic cultures are pending may need further workup including MRI of the spine when stable. Ortho is following the patient closely 3patient right knee fluid culture also came back positive with group A strep 4-patient is afebrile white count is trending down we will continue with cefazolin 2 g every 8 hours and will monitor clinical course closely Dictation was produced using [employer] dictation software. please excuse any g rammatical, word or spelling errors. Time with Patient: Less than 30
[2024-10-15] MEDS: ACETAMINOPHEN TAB 325 MG TAB PO PRN (12:56)
[2024-10-15 14:57] LABS: ABG Base Excess 10.5 mmol/L; ABG HCO3 34 mmol/L (21-25); ABG Oxygen Saturation 93.2 % (94-97); ABG PCO2 41 mmHg (35-45); ABG PH 7.53 (7.35-7.45); ABG TCO2 35 mmol/L (19-24); Allen Test Performed? Yes
[2024-10-15 15:00] LABS: ABG PO2 59 mmHg (83-108)
[2024-10-15 16:12] LABS: Glucose,Whole Blood 109 mg/dL (70-110)
[2024-10-15] MEDS ORDERED: ACETAMINOPHEN IV (For NPO) 1,000 MG in EMPTY BAG 1 BAG IVPB PRN (20:47)
[2024-10-15 20:56] LABS: Glucose,Whole Blood 45 mg/dL (70-110)
[2024-10-15] MEDS: INSULIN DETEMIR (LEVEMIR) 100 UNIT/ML SYR SQ SCH (21:04)
[2024-10-15 21:13] LABS: Glucose,Whole Blood 108 mg/dL (70-110)
[2024-10-15 23:26] LABS: Glucose,Whole Blood 69 mg/dL (70-110)
[2024-10-15] MEDS: DEXTROSE 50% SYRINGE 50 ML IVP PRN (23:30)
[2024-10-15] MEDS: DEXTROSE 5% IN WATER 1,000 ML IV ONE (23:37)
[2024-10-16 01:01] LABS: Glucose,Whole Blood 86 mg/dL (70-110)
[2024-10-16 04:36] LABS: Glucose,Whole Blood 145 mg/dL (70-110)
[2024-10-16 04:45] LABS: Basophils % (A) 0 %; Eosinophils % (A) 0 %; HCT 24.6 % (39.0-53.0); HGB 7.8 gm/dL (13.0-17.5); Hypochromasia Moderate; Lymphocytes % (A) 6 %; MCH 36.1 pg (25.0-35.0); MCHC 31.6 g/dL (31.0-37.0); Macrocytosis Marked; Mean Platelet Volume 11.2; Monocytes # (A) 0.3 k/uL (0-1.0); Monocytes % (A) 2 %; Neutrophils # (A) 14.5 k/uL (1.3-7.7); Neutrophils % (A) 91 %; Platelet Count 126 k/uL (150-450); RBC 2.15 m/uL (4.30-5.90); RDW 14.4 % (11.5-15.5)
[2024-10-16 04:49] LABS: MCV 114.4 fL (80.0-100.0)
[2024-10-16 05:02] LABS: African American GFR (CKD) >90 (>60 ml/min/1.73 sqM); Anion Gap 0 mmol/L; Blood Urea Nitrogen 37 mg/dL (9-20); Calcium 7.3 mg/dL (8.4-10.2); Carbon Dioxide 34 mmol/L (22-30); Chloride 115 mmol/L (98-107); Glucose 134 mg/dL (74-99); Magnesium 1.7 mg/dL (1.6-2.3); Non-African American GFR(CKD) >90 (>60 ml/min/1.73 sqM); Potassium 3.4 mmol/L (3.5-5.1); Sodium 149 mmol/L (137-145)
[2024-10-16] MEDS ORDERED: Potassium Replacement Protocol 1 EACH MISC MISCELLANE PRN (05:39)
[2024-10-16] MEDS ORDERED: Magnesium Replacement Protocol 1 EACH MISC MISCELLANE PRN (05:40)
[2024-10-16] MEDS: POTASSIUM CHLORIDE 10 MEQ in WATER FOR INJECTION 1 100ML.BAG IVPB SCH (05:46)
[2024-10-16] MEDS: MAGNESIUM SULFATE-D5W PMX 1 GM in DEXTROSE/WATER 1 100ML.BAG IVPB ONE (05:54)
[2024-10-16] MEDS: POTASSIUM CHLORIDE 20 MEQ in WATER FOR INJECTION 1 100ML.BAG IVPB SCH (05:55)
--- NOTE | 2024-10-16 06:02 | P.PN ---
Subjective Progress Note Date: 10/15/24 64-year-old male who is being seen in the ICU due to hypovolemic shock and rhabdomyolysis. He is a poor historian due to altered mental status and unresponsiveness. All history is obtained from the chart. He initially presented to the emergency department after being found facedown on the ground with a contusion to his forehead and abrasions to his knee and left toes. She stated that he had been having nausea and vomiting for a day prior to being found down. He was noted to have diarrhea as well. Patient is a daily drinker and consumes about a fifth per day according to the notes he has not drank for the 2 days prior to this admission. He also has a history of type 1 diabetes mellitus. Initial EKG showed sinus tachycardia. Head/cervical spine CT showed no acute intracranial process and no acute fracture or traumatic subluxation of the cervical spine. Initial chest x-ray showed right middle lobe scarring/atelectasis, no acute pulmonary process. He had received 4 L of normal saline. Initial labs showed CK level of 18,113, WBCs 10.7, hemoglobin 12.5, sodium 126, creatinine 3.18 lactic acid 6.9, AST 401, ALT 65. Preliminary blood culture showed gram-positive cocci and patient was started on vancomycin. 24-hour interval change 10/12/2024 -- Patient is evaluated in the ICU. He remains intubated on mechanical ventilation - ABG shows pH 7.42, pCO2 38, pO2 74. - He is maintained on vasopressin 0.02 units/min, normal saline at 20 cc/h, IV hydrocortisone 50 mg every 6 hours, and Kefzol day 5. Labs are reviewed WBCs 17.4, hemoglobin 8.2, hematocrit 25.2, platelets 53, sodium 142, potassium 3.7, chloride 116, CO2 23, BUN 39, creatinine 1.18, gluc ose 258. Ionized calcium 4.4. Magnesium 1.8. Today's chest x-ray is unchanged. Wound culture gram stain of the right knee preliminary report shows rare gram positive cocci. 10/13/2024 Patient is seen and evaluated in ICU at bedside; remains on the mechanical ventilator. Discussed with nursing staff. Concerns about elevated blood sugars; patient was placed on home dose of Lantus which did not help much - Blood gases show pO2 72, pCO2 41, and pH is 7.42. - The patient is on propofol at 35 mcg/kg/min, saline at 20 cc an hour, and vital high-protein at 60, with goal of 70. Yesterday, he had a brief spontaneous breathing trial, and he did poorly. Today he will again have a spontaneous breathing trial, of pressure support of 5 and CPAP of 5. He continues on Ancef. White count 18.8, hemoglobin 8.2, hematocrit 25.8, platelet count 78,000. Sodium 144, potassium 4.1, chlorides 117, CO2 26, BUN 47, creatinine 1.18. Glucose is 340. Albumin is 2.1. Previous blood cultures from October 06 show group A streptococci. Chest x-ray shows bibasilar infiltrates. -- For hyperglycemia I will increase dose of Lantus and add insulin lispro every 4 hours; continue with current sliding scale 10/14/2024 Patient is seen in follow-up today continues on Precedex and attempting to wean maintained on mechanical ventilation with an FiO2 of 50% PEEP is 5. Per nursing staff attempting sedation holiday although did not go well yesterday. Patient is maintained on antibiotics with infectious disease following and patient is status post right knee aspiration with preliminary culture showing strep a with positive blood cultures. Patient continues with significant swelling especially the scrotal area maintained on IV Lasix and will continue. No discussion of PEG and trach as of yet and patient remains full code. Prognosis is guarded. 10/15/2024 Patient is seen this morning continues to be in the ICU currently working on weaning FiO2 and undergoing sedation holiday. Patient is eye tracking and following commands and per pulmonary bed spring maker working on extubation today. Will await official report and monitor closely. Patient is continued on antibio tics with infectious disease following. Review of systems: Unable to assess as patient remains on mechanical ventilator, eyes tracking and following some commands Active Medications Acetaminophen (Acetaminophen Tab 325 Mg Tab) 650 mg PO Q4HR PRN PRN Reason: Fever and/or Mild Pain Last Admin: 10/15/24 12:56 Dose: 650 mg Albuterol/Ipratropium (Ipratropium-Albuterol 3 Ml Neb) 3 ml INHALATION RT-Q4H PRN PRN Reason: Shortness Of Breath Or Wheezing Last Admin: 10/11/24 11:55 Dose: 3 ml Albuterol/Ipratropium (Ipratropium-Albuterol 3 Ml Neb) 3 ml INHALATION RT-QID [facility] Cholecalciferol (Cholecalciferol 25 Mcg (1000 Iu) Tablet) 50 mcg PO DAILY [facility]O Last Admin: 10/15/24 08:31 Dose: 50 mcg Dextrose/Water (Dextrose 50% Syringe 50 Ml) 25 ml IVP PER PROTOCOL PRN; Protocol PRN Reason: Hypoglycemia Last Admin: 10/15/24 23:30 Dose: 25 ml Dextrose/Water (Dextrose 50% Syringe 50 Ml) 50 ml IVP PER PROTOCOL PRN; Protocol PRN Reason: Hypoglycemia Last Admin: 10/15/24 21:00 Dose: 50 ml Haloperidol Lactate (Haloperidol Lactate 5 Mg/Ml 1 Ml Vial) 4 mg IVP Q4HR PRN PRN Reason: Moderate Agitation Haloperidol Lactate (Haloperidol Lactate 5 Mg/Ml 1 Ml Vial) 8 mg IVP Q4H PRN PRN Reason: SEVERE AGITATION Hydromorphone HCl (Hydromorphone 0.5 Mg/0.5 Ml Syringe) 0.5 mg IVP Q2H PRN PRN Reason: Moderate Pain (Scale 4 to 6) Last Admin: 10/15/24 16:25 Dose: 0.5 mg Hydromorphone HCl (Hydromorphone 1 Mg/Ml 1 Ml Syringe) 1 mg IVP Q2H PRN PRN Reason: Severe Pain (Scale 7 to 10) Last Admin: 10/15/24 09:18 Dose: 1 mg Cefazolin Sodium 2 gm/ Sodium (Chloride) 50 mls @ 100 mls/hr IVPB Q8HR [facility]; Protocol Last Admin: 10/15/24 23:48 Dose: 100 mls/hr Acetaminophen 1,000 mg/ IV (Solution) 100 mls @ 400 mls/hr IVPB Q6HR PRN PRN Reason: Fever and/or Mild Pain Stop: 10/16/24 12:01 Dextrose/Water (Dextrose 5%-Water Iv Soln) 1,000 mls @ 75 mls/hr IV .[id number] ONE Stop: 10/16/24 12:50 Last Admin: 10/15/24 23:37 Dose: 75 mls/hr Potassium Chloride 10 meq/ IV (Solution) 100 mls @ 100 mls/hr IVPB Q1HR PITO; Protocol Stop: 10/16/24 09:59 Last Admin: 10/16/24 05:47 Dose: Not Given Magnesium Sulfate/Dextrose 1 (gm/ IV Solution) 100 mls @ 100 mls/hr IVPB ONCE ONE; Protocol Stop: 10/16/24 06:39 Last Admin: 10/16/24 05:54 Dose: 100 mls/hr Potassium Chloride 20 meq/ IV (Solution) 100 mls @ 50 mls/hr IVPB Q2H PITO Stop: 10/16/24 09:44 Last Admin: 10/16/24 05:55 Dose: 50 mls/hr Insulin Aspart (Insulin Aspart (Novolog) 100 Unit/Ml Vial) 0 unit SQ Q4HR [facility]; Protocol Last Admin: 10/16/24 04:38 Dose: Not Given Insulin Aspart (Insulin Aspart (Novolog) 100 Unit/Ml Vial) 5 unit SQ Q4HR [facility]O; Protocol Stop: 10/20/24 19:59 Last Admin: 10/16/24 04:39 Dose: Not Given Insulin Detemir (Insulin Detemir (Levemir) 100 Unit/Ml Syr) 15 unit SQ BID@0700,2100 [facility] Last Admin: 10/15/24 21:04 Dose: Not Given Lorazepam (Lorazepam 2 Mg/Ml Inj) 1 mg IV Q1HR PRN PRN Reason: CIWA 10 to 15 Last Admin: 10/10/24 10:31 Dose: 1 mg Lorazepam (Lorazepam 2 Mg/Ml Inj) 1 mg IV Q2HR PRN PRN Reason: CIWA 8 or 9 Last Admin: 10/13/24 12:44 Dose: 1 mg Miscellaneous Information (Potassium Replacement Protocol 1 Each Misc) 1 each MISCELLANE DAILY PRN; Protocol PRN Reason: Per Protocol Miscellaneous Information (Magnesium Replacement Protocol 1 Each Misc) 1 each MISCELLANE DAILY PRN; Protocol PRN Reason: Per Protocol Naloxone HCl (Naloxone 0.4 Mg/Ml 1 Ml Vial) 0.2 mg IV Q2M PRN PRN Reason: Opioid Reversal Pantoprazole Sodium (Pantoprazole 40 Mg/10 Ml Vial) 40 mg IVP BID [facility] Last Admin: 10/15/24 21:07 Dose: 40 mg Petrolatum (Zinc Oxide Paste (Z-Guard) 1 Applic) 1 applic TOPICAL Q2HR PRN; Protocol PRN Reason: Wound Healing Physical exam: Gen: This is a 64-year-old male who is maintained on mechanical ventilation with an FiO2 of 50% PEEP is 5, well-developed, elderly appearing, ill-appearing HEENT: Head is atraumatic, normocephalic. Pupils equal, round. Sclerae is anicteric. NECK: Supple. No JVD. No lymphadenopathy. No thyromegaly. LUNGS: Diminished breath sounds bilaterally otherwise clear to auscultation. No wheezes or rhonchi. No intercostal retractions. HEART: Regular rate and rhythm. No murmur. ABDOMEN: Soft. Somewhat taut, positive bowel sounds are present. No masses. No tenderness. EXTREMITIES: No pedal edema. No calf tenderness. Generalized upper and lower extremity edema along with scrotal swelling noted NEUROLOGICAL: Patient is currently maintained on mechanical ventilation off sedation, eye tracking and following some commands Assessment: 1. Chronic alcohol abuse with acute alcohol withdrawal syndrome; CIWA protocol in place; patient remains on thiamine and Protonix. 2. Rhabdomyolysis secondary to immobility due to fall. Improving with IV hydration. We will continue to monitor strict STERLING's, daily weights, renal function electrolytes 3. Acute kidney injury secondary to ATN due to to septic shock and rhabdomyolysis. Improving; monitor renal function electrolytes; avoid nephrotoxins and hypotension. 4. Relative adrenal insufficiency. On IV hydrocortisone. 5. Transaminitis. Improving. 6. Streptococcus group A bacteremia. Currently on cefazolin per ID recommendation; continue to monitor CBC, CRP and procalcitonin. Possibly secondary to right knee infection 7. Hyponatremia, likely hypovolemic; resolved. 8. Type 1 diabetes mellitus; we will continue to monitor Accu-Cheks before every meal and at bedtime with insulin sliding scale. 9. History of coronary artery disease with previous catheterization and stent placement. 10. Hypertension; currently not on any antihypertensive medication. 11. Right knee pain with swelling, status post aspiration along with arthroscopic lavage, culture showing strep a with concerns of septic arthritis 12. Sepsis, present on admission possibly secondary to right knee arthritis with bacteremia GI prophylaxis DVT prophylaxis Full code Plan: Patient continues in the ICU with multiple consultations following maintained on IV antibiotics status post arthroscopy with lavage of the right knee and culture showing strep a awaiting finalized cultures. Repeat blood cultures thus far are negative and will continue on IV antibiotics with ID following Per nursing staff currently undergoing sedation holiday and is eye tracking and following some commands. Pulmonary bed spring maker working on extubation today Patient will need PT/OT therapy evaluation once more stable Follow-up on repeat labs and monitor kidney functions and electrolytes closely. Overall prognosis remains guarded at this time The impression and plan of care has been dictated by Mercy Gilmore, Nurse Practitioner as directed. Dr. Randall MD I have performed a history and examination and MDM of this patient, discussed the same with the dictator, and agree with the dictator's assessment and plan as written ,documented as a scribe. Based on total visit time, I have performed more than 50% of the visit. Objective - Vital Signs Vital signs: Vital Signs Temp 100.5 F H 10/15/24 20:00 Pulse 86 10/16/24 03:00 Resp 17 10/16/24 03:00 BP 120/63 10/16/24 03:00 Pulse Ox 99 10/16/24 03:00 FiO2 40 10/16/24 05:00 Intake & Output 10/15/24 10/15/24 10/16/24 06:59 18:59 06:59 Intake Total 2133.464 6491.268 349 Output Total 1935 1535 865 Balance -556.583 -326.732 -516 Weight 91 kg 88.4 kg Intake: IV 138 246 349 0.9NS 55 60 25 Dextrose 5% in Water 1, 300 000 ml @ 75 mls/hr IV . [id number] [facility] Rx#:[id number] Pressure Bag 33 36 24 ceFAZolin 2 gm In Sodium 50 150 Chloride 0.9% 50 ml @ 100 mls/hr IVPB Q8HR [facility] Rx# :[id number] Intake, IV Titration 170.417 102.268 Amount Dexmedetomidine/0.9% NaCl 7.501 (Pmx) 400 mcg In Empty Bag 1 bag @ 0.2 MCG/KG/HR 4.64 mls/hr IV .[id number] [facility] Rx#:[id number] propofoL 1,000 mg In 162.916 102.268 Empty Bag 1 bag @ 15 MCG/ KG/MIN 7.704 mls/hr IV . [id number] [facility] Rx#:[id number] Tube Feeding 770 560 Other 300 300 Output: Urine 5 1535 865 Other: Voiding Method Indwelling Catheter Indwelling Catheter Indwelling Catheter ABP, PAP, CO, CI - Last Documented Arterial Blood Pressure 112/42 - Labs CBC & Chem 7: 10/16/24 04:30 10/16/24 04:30 Labs: Abnormal Lab Results - Last 24 Hours (Table) 10/15/24 10/15/24 10/15/24 Range/Units 08:26 11:28 11:37 WBC (3.8-10.6) k/uL RBC (4.30-5.90) m/uL Hgb (13.0-17.5) gm/dL Hct (39.0-53.0) % MCV (80.0-100.0) fL MCH (25.0-35.0) pg Plt Count (150-450) k/uL Neutrophils # (1.3-7.7) k/uL Macrocytosis ABG pH (7.35-7.45) ABG pO2 (83-108) mmHg ABG HCO3 (21-25) mmol/L ABG Total CO2 (19-24) mmol/L ABG O2 Saturation (94-97) % Hemoglobin (13.0-17.5) gm/dL Sodium (137-145) mmol/L Potassium (3.5-5.1) mmol/L Chloride (98-107) mmol/L Carbon Dioxide (22-30) mmol/L BUN (9-20) mg/dL Glucose (74-99) mg/dL POC Glucose (mg/dL) 185 H 178 H (70-110) mg/dL Calcium (8.4-10.2) mg/dL PTH Intact 112.0 H (14.0-72.0) pg/mL 10/15/24 10/15/24 10/15/24 Range/Units 14:55 18:00 20:54 WBC (3.8-10.6) k/uL RBC (4.30-5.90) m/uL Hgb (13.0-17.5) gm/dL Hct (39.0-53.0) % MCV (80.0-100.0) fL MCH (25.0-35.0) pg Plt Count (150-450) k/uL Neutrophils # (1.3-7.7) k/uL Macrocytosis ABG pH 7.53 H (7.35-7.45) ABG pO2 59 L* (83-108) mmHg ABG HCO3 34 H (21-25) mmol/L ABG Total CO2 35 H (19-24) mmol/L ABG O2 Saturation 93.2 L (94-97) % Hemoglobin 7.8 L (13.0-17.5) gm/dL Sodium 149 H (137-145) mmol/L Potassium (3.5-5.1) mmol/L Chloride (98-107) mmol/L Carbon Dioxide (22-30) mmol/L BUN (9-20) mg/dL Glucose (74-99) mg/dL POC Glucose (mg/dL) 45 L* (70-110) mg/dL Calcium (8.4-10.2) mg/dL PTH Intact (14.0-72.0) pg/mL 10/15/24 10/16/24 10/16/24 Range/Units 23:24 04:30 04:30 WBC 16.0 H (3.8-10.6) k/uL RBC 2.15 L (4.30-5.90) m/uL Hgb 7.8 L (13.0-17.5) gm/dL Hct 24.6 L (39.0-53.0) % MCV 114.4 H (80.0-100.0) fL MCH 36.1 H (25.0-35.0) pg Plt Count 126 L (150-450) k/uL Neutrophils # 14.5 H (1.3-7.7) k/uL Macrocytosis Marked A ABG pH (7.35-7.45) ABG pO2 (83-108) mmHg ABG HCO3 (21-25) mmol/L ABG Total CO2 (19-24) mmol/L ABG O2 Saturation (94-97) % Hemoglobin (13.0-17.5) gm/dL Sodium 149 H (137-145) mmol/L Potassium 3.4 L (3.5-5.1) mmol/L Chloride 115 H (98-107) mmol/L Carbon Dioxide 34 H (22-30) mmol/L BUN 37 H (9-20) mg/dL Glucose 134 H (74-99) mg/dL POC Glucose (mg/dL) 69 L (70-110) mg/dL Calcium 7.3 L (8.4-10.2) mg/dL PTH Intact (14.0-72.0) pg/mL 10/16/24 Range/Units 04:34 WBC (3.8-10.6) k/uL RBC (4.30-5.90) m/uL Hgb (13.0-17.5) gm/dL Hct (39.0-53.0) % MCV (80.0-100.0) fL MCH (25.0-35.0) pg Plt Count (150-450) k/uL Neutrophils # (1.3-7.7) k/uL Macrocytosis ABG pH (7.35-7.45) ABG pO2 (83-108) mmHg ABG HCO3 (21-25) mmol/L ABG Total CO2 (19-24) mmol/L ABG O2 Saturation (94-97) % Hemoglobin (13.0-17.5) gm/dL Sodium (137-145) mmol/L Potassium (3.5-5.1) mmol/L Chloride (98-107) mmol/L Carbon Dioxide (22-30) mmol/L BUN (9-20) mg/dL Glucose (74-99) mg/dL POC Glucose (mg/dL) 145 H (70-110) mg/dL Calcium (8.4-10.2) mg/dL PTH Intact (14.0-72.0) pg/mL
--- NOTE | 2024-10-16 07:26 | XR ---
EXAMINATION TYPE: XR chest 1V portable DATE OF EXAM: 10/16/2024 COMPARISON: NONE CLINICAL INDICATION: Male, 64 years old with history of mechanical intubation; , TECHNIQUE: XR chest 1V portable views of the chest. FINDINGS: ET tube and NG tube have been removed. Bilateral infiltrates are stable with small effusion. No pneum othorax. Degenerative changes spine and postsurgical changes cervical spine. IMPRESSION: 1. Several bilateral infiltrate and small pleural effusion. [facility], , 10/16/2024 7:23 AM
[2024-10-16] MEDS: IPRATROPIUM-ALBUTEROL 3 ML NEB INHALATION SCH (08:04)
[2024-10-16 08:26] LABS: Glucose,Whole Blood 205 mg/dL (70-110)
--- NOTE | 2024-10-16 10:58 | P.PN ---
Progress Note - Text Progress Note Date: 10/16/24 Right knee septic arthropathy, postoperative day #6 status post diagnostic arthroscopy with lavage Bacteremia Complex medical patient Patient was evaluated at bedside today, he was extubated, he is alert and oriented today at bedside. There are multiple medical providers and examining patient today. Patient has a very dry and hoarse voice but is able to answer all my questions accurately. He is having very minimal if any left knee pain at this time, there is some third spacing appreciated. A mild effusion is also noted. The right knee has a notable effusion, there is no erythema noted. The sutures are in good position condition, there is no active drainage. Passive range of motion does reproduce discomfort in the knee. I did discuss with the patient today that we would like to do an MRI of his lumbar spine to rule out any other infective pathology given his current medical state and he has ongoing back pain that the family had mentioned to us prior to him being altered mentally. Patient did not again mention to me today at bedside he has had chronic low back pain for a long time, he was unable to have surgery years ago due to his high hemoglobin A1c. He does have a history of a cervical decompression and fusion. Discussed with the computer systems security analyst today at bedside he would like to give it the next 24 to 48 hours to let him continue to improve medically before considering an MRI. We will continue to follow patient daily. Please contact our service with any f urther questions
[2024-10-16] MEDS ORDERED: VANCOMYCIN IV PER PHARMACY 1 EACH MISC MISCELLANE PRN (11:21)
[2024-10-16 12:04] LABS: Glucose,Whole Blood 163 mg/dL (70-110)
[2024-10-16] MEDS: VANCOMYCIN 1,500 MG in SODIUM CHLORIDE 0.9% 500 ML 500 ML IVPB SCH (14:15)
[2024-10-16] MEDS: CEFEPIME 2 GM in SODIUM CHLORIDE 0.9% 100 ML IVPB SCH (16:03)
[2024-10-16 16:11] LABS: Glucose,Whole Blood 216 mg/dL (70-110)
[2024-10-16] MEDS: INSULIN ASPART (NovoLOG) 100 UNIT/ML VIAL SQ SCH (16:11)
[2024-10-16] MEDS ORDERED: LORazepam 2 MG/ML INJ IV PRN (17:57)
--- NOTE | 2024-10-16 18:13 | P.PN ---
Subjective Progress Note Date: 10/16/24 Patient is a 64-year-old male who is being seen in the ICU due to hypovolemic shock and rhabdomyolysis. He is a poor historian due to altered mental status and unresponsiveness. All history is obtained from the chart. He initially presented to the emergency department after being found facedown on the ground with a contusion to his forehead and abrasions to his knee and left toes. She stated that he had been having nausea and vomiting for a day prior to being found down. He was noted to have diarrhea as well. Patient is a daily drinker and consumes about a fifth per day according to the notes he has not drank for the 2 days prior to this admission. He also has a history of type 1 diabetes mellitus. Initial EKG showed sinus tachycardia. Head/cervical spine CT showed no acute intracranial process and no acute fracture or traumatic subluxation of the cervical spine. Initial chest x-ray showed right middle lobe scarring/atelectasis, no acute pulmonary process. He had received 4 L of normal saline. Initial labs showed CK level of 18,113, WBCs 10.7, hemoglobin 12.5, sodium 126, creatinine 3.18 lactic acid 6.9, AST 401, ALT 65. Preliminary blood culture showed gram-positive cocci and patient was started on vancomycin. 10/07/2024. He is maintained on a bicarb drip as well as normal saline. He remains unresponsive to verbal stimulation. He is maintained on CIWA protocol. Labs today: WBCs 5.1, hemoglobin 11.6, sodium 126, potassium 3.8, BUN 53, creatinine 3.12, ammonia <9. Progress note dated October 08, 2024. 64-year-old male seen in room 252. I was notified by the nurse at nighttime, that the patient's blood pressure continued to drop. We bumped up his dose of n orepinephrine, and gave him a liter of fluid. In addition, his respiratory status was marginal, and the blood gas was ordered. The patient is currently on 6 L of oxygen. The patient was admitted on October 06. He is getting saline at 150 cc an hour, and Precedex at 0.4 mcg/kg/h. His norepinephrine is running at 31 mcg/min. There is staphylococci in his blood. I have asked the nurses to add Ativan Dilaudid and Haldol to his regimen, to try to wean him off the dexmedetomidine. White count of 9.1, hemoglobin hematocrit 29, platelet count 88,000. Sodium 131, potassium 3, chloride 92, CO2 32, BUN 50, creatinine 2.34. Glucose is 167. Calcium is 6.3. CK was 8796. AST is 507. ALT is 136. Albumin is 2.2. Blood cultures from the were positive for Streptococcus group A. Chest x-ray shows bilateral effusions, small, with low lung volumes. 10/09/2024. Patient seen as a followup. No acute events overnight. He is currently on 6 L of oxygen. He was on dextrose 5% - 0.9% NaCl, blood sugars have been in the mid to high 200s. He is receiving Kefzol for streptococcal group A bacteremia. Precedex has been turned off. Levophed is 0.3 mcg/kg/min. WBCs 12.3, hemoglobin 9.7, hematocrit 27.7, platelets 48. Sodium 133, potassium 3.7, chloride 105, CO2 19, BUN 42, creatinine 1.62. Glucose 267. Calcium 6.4. CK 3888. AST 323, ALT 78. Albumin 2.2. Today's chest x-ray showed cardiomegaly, pulmonary vascular congestion, and bilateral pleural effusions. 10/10/2024. Patient is being seen as a followup in the ICU. Overnight he went into A-fib with rapid ventricular rate, was started on an amiodarone drip at 1mg/min, and converted back to normal sinus rhythm. His pressures remain in the 100s/40s and pulses are He is currently on 15 L high flow oxygen. He is on no rmal saline at 150 cc/h. He is maintained on Kefzol for streptococcal group A bactermia, today is day 3. Levophed is at 0.11 mcg/kg/min, vasopressin at 0.02 mcg/kg/min. WBCs 16.4, hemoglobin 9.8, hematocrit 29.6, platelets 38. Sodium 138, potassium 3.5, chloride 112, CO2 23, BUN 35, creatinine 1.26, glucose 164. Ionized calcium 4.1. CK 988. AST 154, ALT 36. Cortisol 32. TSH 4.3830. In addition, he removed his NG tube overnight. Today's chest x-ray is unchanged from previous. He remains lethargic and barely responsive to verbal stimulation. 10/11/2024. Patient is seen in the ICU. He underwent arthroscopic lavage of the right knee yesterday evening and returned to the ICU intubated on mechanical ventilation. He is currently on assist-control mode with rate 18, tidal volume 450, FiO2 70%, PEEP 5. ABG shows pH 7.34, pCO2 37, pO2 95. He is maintained on vasopressin 0.02 units/min, Levophed 0.14 mcg/kg/min, normal saline at 100 cc/h, and Kefzol day 4. WBCs 18.1, hemoglobin 8.8, hematocrit 27.6, platelets 52, sodium 140, potassium 3.9, chloride 115, CO2 17, BUN 35, creatinine 1.08, glucose 191, creatinine kinase 215. Calcium 6.5. Magnesium 1.6. He began IV hydrocortisone 50 mg every 6 hours yesterday. Liver ultrasound performed yesterday revealed no acute process. Chest x-ray today is unchanged from previous. 10/12/2024. Patient is evaluated in the ICU. He remains intubated on mechanical ventilation on assist-control mode with rate 18, tidal volume 450, Fi O2 50%, PEEP 5. ABG shows pH 7.42, pCO2 38, pO2 74. His RSBI yesterday was 110 and he was unable to follow commands so he could not be extubated. He is maintained on vasopressin 0.02 units/min, normal saline at 20 cc/h, IV hydrocortisone 50 mg every 6 hours, and Kefzol day 5. WBCs 17.4, hemoglobin 8.2, hematocrit 25.2, platelets 53, sodium 142, potassium 3.7, chloride 116, CO2 23, BUN 39, creatinine 1.18, glucose 258. Ionized calcium 4.4. Magnesium 1.8. Today's chest x-ray is unchanged. Wound culture gram stain of the right knee preliminary report shows rare gram positive cocci. Progress note dated October 13, 2024. 64-year-old male seen in the intensive care unit, room 252. The patient remains on the mechanical ventilator. He is on volume assist-control, rate 18, tidal volume 450, FiO2 50%, PEEP of 5. Blood gases show pO2 72, pCO2 41, and pH is 7.42. The patient is on propofol at 35 mcg/kg/min, saline at 20 cc an hour, and vital high-protein at 60, with goal of 70. Yesterday, he had a brief spontaneous breathing trial, and he did poorly. Today he will again have a s pontaneous breathing trial, of pressure support of 5 and CPAP of 5. He continues on Ancef. White count 18.8, hemoglobin 8.2, hematocrit 25.8, platelet count 78,000. Sodium 144, potassium 4.1, chlorides 117, CO2 26, BUN 47, creatinine 1.18. Glucose is 340. Albumin is 2.1. Previous blood cultures from October 06 show group A streptococci. Chest x-ray shows bibasilar infiltrates. Today's evaluation of 10/14/2024, the patient is being seen for a follow-up. The patient remains intubated on mechanical ventilator. The patient remains encephalopathic. The patient has history of alcoholism and he was treated for alcohol withdrawal/delirium tremens. The patient was also found to be septic with septic right knee arthritis and secondary bacteremia sepsis with MSSA and the patient is postop day #4 following arthroscopic lavage and debridement of the right knee. The rhabdomyolysis has improved. The patient remains on broad- spectrum antibiotics and the patient remains on IV cefazolin. On today's evaluation, the patient remains sedated on propofol running at 30 mcg/kg/min. He is on the mechanical ventilator, assist-control mode with a rate of 18, tidal volume of 450, FiO2 of 30% with a PEEP of 5. The blood gas showed a pH of 7.49 with a pCO2 of 40 and pO2 of 73. The follow-up chest x-ray from this morning shows stable bilateral lower lobe pulmonary infiltrates. No other acute abnormalities have been noted on today's chest x-ray. Noted the patient has been off norepinephrine and off vasopressin. The patient is currently being diuresed with IV Lasix. The fluid balance over the past 24 hours is -1 L. Noted the patient was significantly in the past fluid balance as the patient was being resuscitated with IV fluids regarding his underlying septic shock. The patient remains on hydrocortisone stress dose. The patient remains on vital high-protein at rate of 70 cc an hour. Afebrile. Producing adequate amount of urine output. WBC count is at 16 with a hemoglobin 7.9 and a platelet count of 102. The platelet count has been improving steadily. The patient's BUN is 48 with a creatinine of 1.05. Sodium levels at 148, bicarb is at 30, glucose at 232, BUN is 48 with a creatinine of 1.05. CPK level has down trended. Alkaline phosphatase 555 with an AST of 44 and an ALT of 10. The cultures from the joints/right knee was positive for strep group A and the blood cultures showed a similar bacteria. On 10/15/2024, the patient remains intubated on the mechanical ventilator. This morning, the patient is on propofol at 30 mcg/kg/min. The patient was taken off the propofol yesterday and he was started on Precedex. He was following some simple commands. Nevertheless, he became restless and tachypneic and based on that, overnight, the patient was started back on propofol which is currently running at 30 mcg/kg/min. He remains on the mechanical ventilator, assist- control mode with rate of 22, tidal volume of 500, FiO2 50% with a PEEP of 5. Blood gas showed pH of 7.5 with a pCO2 of 43 and pO2 of 68. The patient is on IV fluids at KVO. He is receiving water 100 cc every 4 hours through the NG. The patient is on vital high-protein at rate of 70 cc an hour. He remains on IV Lasix 20 mg every 12 hours. The fluid balance over the past 24 hours is -1 L. The follow-up chest x-ray from today shows no significant interval change. The patient continues to have some stable bibasilar pulmonary filtrates and small effusions. Hemodynamically stable on no pressors. No other significant events overnight. He remains on IV cefazolin regarding his MSSA septicemia and septic arthritis. Remains on Levemir insulin 15 units twice daily and NovoLog sliding scale coverage. No agitation. The patient's white cell count is 15.4, hemoglobin 7.9, platelet is 118, sodium is at 151 with a potassium level of 3.2, BUN is 47 with a creatinine of 0.9.. 10/16/2024, the patient is being seen for a follow-up. The patient remains extubated, calm and comfortable. He is currently on 6 L of oxygen by nasal cannula. Overnight, the patient was briefly placed on a BiPAP pressure of 12/5 with an FiO2 40% for some increased shortness of breath and the patient is currently back on nasal cannula for now. Chest x-ray shows infiltrates in the lung bases bilaterally. Pneumonia is being considered. The patient accordingly was switched to a combination of cefepime and vancomycin. Meanwhile, the patient remains on D5 water at a rate of 75 cc an hour. Overnight, the patient was having episodes of hypoglycemia with a blood sugar as low as 49. Based on that, the Levemir insulin was discontinued. He also had purulence of atrial fibrillation with rapid ventricular response with a heart rate as high as 150. Currently is back in the normal sinus rhythm. His blood work shows a white cell count of 16, hemoglobin of 7.8 and a platelet count of 126. Sodium levels at 149, potassium is at 3.4, BUN is 37 with a creatinine of 0.8. His procalcitonin level is at 1.08. He was complaining of back pain. Based on his recent history of septic knee arthritis and staph bacteremia, MRI of the spine was also ordered by the orthopedic surgery to rule out any underlying epidural abscess. This will be done within next 24 to 48 hours once the patient is medically more stable. Objective - Vital Signs Vital signs: Vital Signs Temp 99.9 F H 10/16/24 08:00 Pulse 92 10/16/24 09:00 Resp 20 10/16/24 09:00 BP 106/68 10/16/24 09:00 Pulse Ox 99 10/16/24 09:00 FiO2 40 10/16/24 08:00 Intake & Output 10/15/24 10/16/24 10/16/24 18:59 06:59 18:59 Intake Total 1208.268 349 156 Output Total 1535 865 335 Balance -326.732 -516 -179 Weight 88.4 kg Intake: IV 246 349 156 0.9NS 60 25 Dextrose 5% in Water 1, 300 150 000 ml @ 75 mls/hr IV . [id number] Rx#:[id number] Pressure Bag 36 24 6 ceFAZolin 2 gm In Sodium 150 Chloride 0.9% 50 ml @ 100 mls/hr IVPB Q8HR [facility] Rx# :[id number] Intake, IV Titration 102.268 Amount propofoL 1,000 mg In 102.268 Empty Bag 1 bag @ 15 MCG/ KG/MIN 7.704 mls/hr IV . [id number] [facility] Rx#:[id number] Tube Feeding 560 Other 300 Output: Urine 1535 865 335 Other: Voiding Method Indwelling Catheter Indwelling Catheter Indwelling Catheter ABP, PAP, CO, CI - Last Documented Arterial Blood Pressure 107/37 - Exam The patient is awake and alert and extubated and the patient is currently on 6 L of oxygen by nasal cannula Head exam was generally normal. There was no scleral icterus or corneal arcus. Mucous membranes were moist. Neck supple. Full range of motion. No adenopathy thyromegaly or neck vein distention. Cardiovascular examination reveals regular rhythm rate. S1-S2 normal. No S3 or S4. No discernible murmur noted. Lungs reveal mild scattered rhonchi. No wheezes or crackles. Breath sounds equal. Abdomen soft, without bowel sounds. No masses or tenderness. Extremities are intact. No cyanosis clubbing or edema. Right knee surgical wound site is dry clean and intact. Right knee is slightly swollen. No erythema. No tenderness. Skin reveals multiple abrasions and bruises. Neurologically, the patient is awake and alert and the patient does not have any focal neurological deficit. Cranial nerves are essentially intact. - Labs CBC & Chem 7: 10/16/24 04:30 10/16/24 12:47 Labs: Abnormal Lab Results - Last 24 Hours (Table) 10/15/24 10/15/24 10/15/24 Range/Units 11:28 11:37 14:55 WBC (3.8-10.6) k/uL RBC (4.30-5.90) m/uL Hgb (13.0-17.5) gm/dL Hct (39.0-53.0) % MCV (80.0-100.0) fL MCH (25.0-35.0) pg Plt Count (150-450) k/uL Neutrophils # (1.3-7.7) k/uL Macrocytosis ABG pH 7.53 H (7.35-7.45) ABG pO2 59 L* (83-108) mmHg ABG HCO3 34 H (21-25) mmol/L ABG Total CO2 35 H (19-24) mmol/L ABG O2 Saturation 93.2 L (94-97) % Hemoglobin 7.8 L (13.0-17.5) gm/dL Sodium (137-145) mmol/L Potassium (3.5-5.1) mmol/L Chloride (98-107) mmol/L Carbon Dioxide (22-30) mmol/L BUN (9-20) mg/dL Glucose (74-99) mg/dL POC Glucose (mg/dL) 178 H (70-110) mg/dL Calcium (8.4-10.2) mg/dL PTH Intact 112.0 H (14.0-72.0) pg/mL 10/15/24 10/15/24 10/15/24 Range/Units 18:00 20:54 23:24 WBC (3.8-10.6) k/uL RBC (4.30-5.90) m/uL Hgb (13.0-17.5) gm/dL Hct (39.0-53.0) % MCV (80.0-100.0) fL MCH (25.0-35.0) pg Plt Count (150-450) k/uL Neutrophils # (1.3-7.7) k/uL Macrocytosis ABG pH (7.35-7.45) ABG pO2 (83-108) mmHg ABG HCO3 (21-25) mmol/L ABG Total CO2 (19-24) mmol/L ABG O2 Saturation (94-97) % Hemoglobin (13.0-17.5) gm/dL Sodium 149 H (137-145) mmol/L Potassium (3.5-5.1) mmol/L Chloride (98-107) mmol/L Carbon Dioxide (22-30) mmol/L BUN (9-20) mg/dL Glucose (74-99) mg/dL POC Glucose (mg/dL) 45 L* 69 L (70-110) mg/dL Calcium (8.4-10.2) mg/dL PTH Intact (14.0-72.0) pg/mL 10/16/24 10/16/24 10/16/24 Range/Units 04:30 04:30 04:34 WBC 16.0 H (3.8-10.6) k/uL RBC 2.15 L (4.30-5.90) m/uL Hgb 7.8 L (13.0-17.5) gm/dL Hct 24.6 L (39.0-53.0) % MCV 114.4 H (80.0-100.0) fL MCH 36.1 H (25.0-35.0) pg Plt Count 126 L (150-450) k/uL Neutrophils # 14.5 H (1.3-7.7) k/uL Macrocytosis Marked A ABG pH (7.35-7.45) ABG pO2 (83-108) mmHg ABG HCO3 (21-25) mmol/L ABG Total CO2 (19-24) mmol/L ABG O2 Saturation (94-97) % Hemoglobin (13.0-17.5) gm/dL Sodium 149 H (137-145) mmol/L Potassium 3.4 L (3.5-5.1) mmol/L Chloride 115 H (98-107) mmol/L Carbon Dioxide 34 H (22-30) mmol/L BUN 37 H (9-20) mg/dL Glucose 134 H (74-99) mg/dL POC Glucose (mg/dL) 145 H (70-110) mg/dL Calcium 7.3 L (8.4-10.2) mg/dL PTH Intact (14.0-72.0) pg/mL 10/16/24 Range/Units 08:25 WBC (3.8-10.6) k/uL RBC (4.30-5.90) m/uL Hgb (13.0-17.5) gm/dL Hct (39.0-53.0) % MCV (80.0-100.0) fL MCH (25.0-35.0) pg Plt Count (150-450) k/uL Neutrophils # (1.3-7.7) k/uL Macrocytosis ABG pH (7.35-7.45) ABG pO2 (83-108) mmHg ABG HCO3 (21-25) mmol/L ABG Total CO2 (19-24) mmol/L ABG O2 Saturation (94-97) % Hemoglobin (13.0-17.5) gm/dL Sodium (137-145) mmol/L Potassium (3.5-5.1) mmol/L Chloride (98-107) mmol/L Carbon Dioxide (22-30) mmol/L BUN (9-20) mg/dL Glucose (74-99) mg/dL POC Glucose (mg/dL) 205 H (70-110) mg/dL Calcium (8.4-10.2) mg/dL PTH Intact (14.0-72.0) pg/mL Assessment and Plan Plan: Encephalopathy, multifactorial. The patient had delirium tremens and subsequently patient was treated for septic shock. The patient's encephalopathy is improved and the patient is awake and alert and communicating. No focal neurological deficit. Acute hypoxic respiratory failure, the patient has been intubated on 10/10/2024 following his knee surgery and the patient remains intubated on the mechanical ventilator, chest x-ray is unchanged and the patient continues to have atelectatic changes and small infiltrates in the lung base bilaterally. The patient was extubated on 10/15/2024 and the patient is currently on 6 L of O2 nasal cannula. He has developed infiltrates in lung base bilaterally and currently is on a combination of cefepime and vancomycin. Septic shock, currently off pressors Septic arthritis of the right knee secondary to strep group A in addition to a positive blood cultures with the same microorganism, currently on IV cefazolin Back pain, rule out epidural abscess. MRI of the spine will be done at a later stage once the patient is medically more stable. Chronic alcohol abuse, with acute alcohol withdrawal syndrome, recovered Postop day # 6, status post arthroscopy, with arthroscopic lavage and debridement of the right knee, partial medial meniscectomy and medial femoral condyle and medial tibial plateau chondroplasty. Status post fall, with rhabdomyolysis, secondary to immobility. Acute kidney injury, with acute tubular necrosis, secondary to sepsis, and rh abdomyolysis, recovered Lactic acidosis, resolved. Hyponatremia, currently on D5 water History of coronary artery disease, with previous catheterization and stent placement. CHF with mild impairment LV function with an ejection fraction of 45% Diabetes mellitus type I with episodes of hypoglycemia Gastroesophageal reflux disease. Hyperlipidemia. Hypertension. History of myocardial infarction. History of osteoarthritis. Plan: Keep the patient on 6 L of O2 nasal cannula Cover the patient with a combination of cefepime vancomycin Incentive spirometer Continue D5 water Increase oral intake once swallow evaluation is completed The patient is currently off pressors Monitor fever pattern Change Levemir insulin to 5 units units nightly along with Scale insulin coverage and watch for any signs of hypoglycemia MRI of the thoracic and lumbosacral spine was the patient is medically stable IV Protonix Monitor fluid balance PT evaluation Will continue to follow. This is a critical care evaluation that was done more than 30 minutes. Time with Patient: Greater than 30
--- NOTE | 2024-10-16 18:23 | P.PN ---
Subjective Progress Note Date: 10/16/24 64-year-old male who is being seen in the ICU due to hypovolemic shock and rhabdomyolysis. He is a poor historian due to altered mental status and unresponsiveness. All history is obtained from the chart. He initially presented to the emergency department after being found facedown on the ground with a contusion to his forehead and abrasions to his knee and left toes. She stated that he had been having nausea and vomiting for a day prior to being found down. He was noted to have diarrhea as well. Patient is a daily drinker and consumes about a fifth per day according to the notes he has not drank for the 2 days prior to this admission. He also has a history of type 1 diabetes mellitus. Initial EKG showed sinus tachycardia. Head/cervical spine CT showed no acute intracranial process and no acute fracture or traumatic subluxation of the cervical spine. Initial chest x-ray showed right middle lobe scarring/atelectasis, no acute pulmonary process. He had received 4 L of normal saline. Initial labs showed CK level of 18,113, WBCs 10.7, hemoglobin 12.5, sodium 126, creatinine 3.18 lactic acid 6.9, AST 401, ALT 65. Preliminary blood culture showed gram-positive cocci and patient was started on vancomycin. 24-hour interval change 10/12/2024 -- Patient is evaluated in the ICU. He remains intubated on mechanical ventilation - ABG shows pH 7.42, pCO2 38, pO2 74. - He is maintained on vasopressin 0.02 units/min, normal saline at 20 cc/h, IV hydrocortisone 50 mg every 6 hours, and Kefzol day 5. Labs are reviewed WBCs 17.4, hemoglobin 8.2, hematocrit 25.2, platelets 53, sodium 142, potassium 3.7, chloride 116, CO2 23, BUN 39, creatinine 1.18, gluc ose 258. Ionized calcium 4.4. Magnesium 1.8. Today's chest x-ray is unchanged. Wound culture gram stain of the right knee preliminary report shows rare gram positive cocci. 10/13/2024 Patient is seen and evaluated in ICU at bedside; remains on the mechanical ventilator. Discussed with nursing staff. Concerns about elevated blood sugars; patient was placed on home dose of Lantus which did not help much - Blood gases show pO2 72, pCO2 41, and pH is 7.42. - The patient is on propofol at 35 mcg/kg/min, saline at 20 cc an hour, and vital high-protein at 60, with goal of 70. Yesterday, he had a brief spontaneous breathing trial, and he did poorly. Today he will again have a spontaneous breathing trial, of pressure support of 5 and CPAP of 5. He continues on Ancef. White count 18.8, hemoglobin 8.2, hematocrit 25.8, platelet count 78,000. Sodium 144, potassium 4.1, chlorides 117, CO2 26, BUN 47, creatinine 1.18. Glucose is 340. Albumin is 2.1. Previous blood cultures from October 06 show group A streptococci. Chest x-ray shows bibasilar infiltrates. -- For hyperglycemia I will increase dose of Lantus and add insulin lispro every 4 hours; continue with current sliding scale 10/14/2024 Patient is seen in follow-up today continues on Precedex and attempting to wean maintained on mechanical ventilation with an FiO2 of 50% PEEP is 5. Per nursing staff attempting sedation holiday although did not go well yesterday. Patient is maintained on antibiotics with infectious disease following and patient is status post right knee aspiration with preliminary culture showing strep a with positive blood cultures. Patient continues with significant swelling especially the scrotal area maintained on IV Lasix and will continue. No discussion of PEG and trach as of yet and patient remains full code. Prognosis is guarded. 10/15/2024 Patient is seen this morning continues to be in the ICU currently working on weaning FiO2 and undergoing sedation holiday. Patient is eye tracking and following commands and per pulmonary impact retail service merchandiser working on extubation today. Will await official report and monitor closely. Patient is continued on antibio tics with infectious disease following. 10/16/2024 Patient is seen in follow-up this morning extubated successfully currently maintained on 6 L high flow nasal cannula. Patient is awake and responding appropriately to questions and commands. Patient is extremely lethargic at times and significantly weak with significant edema noted. Sodium is elevated at 150 and is continued on D5 and water. Blood sugars have been elevated and will adjust insulins accordingly. Patient swallow eval performed and failed awaiting reevaluation with speech. Continue n.p.o. for now. White count remains elevated patient is maintained on antibiotics with infectious disease following. Awaiting repeat cultures. Procalcitonin 1.06. Questions and concerns were answered to the best of my ability with son at the bedside. Review of systems: Constitutional: No reports of fatigue, fever, or chills Cardiovascular: No reports of chest pain or palpitations Respiratory: reports of shortness of breath with a weak cough GI: No reports of nausea, vomiting, or diarrhea, reports to feeling hungry although having difficulty in swallowing : No reports of dysuria or retention Neurovascular: reports of generalized weakness and significant swelling of upper and lower extremities All medications have been reviewed Active Medications Acetaminophen (Acetaminophen Tab 325 Mg Tab) 650 mg PO Q4HR PRN PRN Reason: Fever and/or Mild Pain Last Admin: 10/15/24 12:56 Dose: 650 mg Albuterol/Ipratropium (Ipratropium-Albuterol 3 Ml Neb) 3 ml INHALATION RT-Q4H PRN PRN Reason: Shortness Of Breath Or Wheezing Last Admin: 10/11/24 11:55 Dose: 3 ml Albuterol/Ipratropium (Ipratropium-Albuterol 3 Ml Neb) 3 ml INHALATION RT-QID PITO Cholecalciferol (Cholecalciferol 25 Mcg (1000 Iu) Tablet) 50 mcg PO DAILY PITO Last Admin: 10/15/24 08:31 Dose: 50 mcg Dextrose/Water (Dextrose 50% Syringe 50 Ml) 25 ml IVP PER PROTOCOL PRN; Protocol PRN Reason: Hypoglycemia Last Admin: 10/15/24 23:30 Dose: 25 ml Dextrose/Water (Dextrose 50% Syringe 50 Ml) 50 ml IVP PER PROTOCOL PRN; Pro tocol PRN Reason: Hypoglycemia Last Admin: 10/15/24 21:00 Dose: 50 ml Haloperidol Lactate (Haloperidol Lactate 5 Mg/Ml 1 Ml Vial) 4 mg IVP Q4HR PRN PRN Reason: Moderate Agitation Haloperidol Lactate (Haloperidol Lactate 5 Mg/Ml 1 Ml Vial) 8 mg IVP Q4H PRN PRN Reason: SEVERE AGITATION Hydromorphone HCl (Hydromorphone 0.5 Mg/0.5 Ml Syringe) 0.5 mg IVP Q2H PRN PRN Reason: Moderate Pain (Scale 4 to 6) Last Admin: 10/15/24 16:25 Dose: 0.5 mg Hydromorphone HCl (Hydromorphone 1 Mg/Ml 1 Ml Syringe) 1 mg IVP Q2H PRN PRN Reason: Severe Pain (Scale 7 to 10) Last Admin: 10/15/24 09:18 Dose: 1 mg Cefazolin Sodium 2 gm/ Sodium (Chloride) 50 mls @ 100 mls/hr IVPB Q8HR PITO; Protocol Last Admin: 10/15/24 23:48 Dose: 100 mls/hr Acetaminophen 1,000 mg/ IV (Solution) 100 mls @ 400 mls/hr IVPB Q6HR PRN PRN Reason: Fever and/or Mild Pain Stop: 10/16/24 12:01 Dextrose/Water (Dextrose 5%-Water Iv Soln) 1,000 mls @ 75 mls/hr IV .[id number] ONE Stop: 10/16/24 12:50 Last Admin: 10/15/24 23:37 Dose: 75 mls/hr Potassium Chloride 10 meq/ IV (Solution) 100 mls @ 100 mls/hr IVPB Q1HR PITO; Protocol Stop: 10/16/24 09:59 Last Admin: 10/16/24 05:47 Dose: Not Given Magnesium Sulfate/Dextrose 1 (gm/ IV Solution) 100 mls @ 100 mls/hr IVPB ONCE ONE; Protocol Stop: 10/16/24 06:39 Last Admin: 10/16/24 05:54 Dose: 100 mls/hr Potassium Chloride 20 meq/ IV (Solution) 100 mls @ 50 mls/hr IVPB Q2H PITO Stop: 10/16/24 09:44 Last Admin: 10/16/24 05:55 Dose: 50 mls/hr Insulin Aspart (Insulin Aspart (Novolog) 100 Unit/Ml Vial) 0 unit SQ Q4HR PITO; Protocol Last Admin: 10/16/24 04:38 Dose: Not Given Insulin Aspart (Insulin Aspart (Novolog) 100 Unit/Ml Vial) 5 unit SQ Q4HR PITO; Protocol Stop: 10/20/24 19:59 Last Admin: 10/16/24 04:39 Dose: Not Given Insulin Detemir (Insulin Detemir (Levemir) 100 Unit/Ml Syr) 15 unit SQ BID@0700,2100 PITO Last Admin: 10/15/24 21:04 Dose: Not Given Lorazepam (Lorazepam 2 Mg/Ml Inj) 1 mg IV Q1HR PRN PRN Reason: CIWA 10 to 15 Last Admin: 10/10/24 10:31 Dose: 1 mg Lorazepam (Lorazepam 2 Mg/Ml Inj) 1 mg IV Q2HR PRN PRN Reason: CIWA 8 or 9 Last Admin: 10/13/24 12:44 Dose: 1 mg Miscellaneous Information (Potassium Replacement Protocol 1 Each Misc) 1 each MISCELLANE DAILY PRN; Protocol PRN Reason: Per Protocol Miscellaneous Information (Magnesium Replacement Protocol 1 Each Misc) 1 each MISCELLANE DAILY PRN; Protocol PRN Reason: Per Protocol Naloxone HCl (Naloxone 0.4 Mg/Ml 1 Ml Vial) 0.2 mg IV Q2M PRN PRN Reason: Opioid Reversal Pantoprazole Sodium (Pantoprazole 40 Mg/10 Ml Vial) 40 mg IVP BID PITO Last Admin: 10/15/24 21:07 Dose: 40 mg Petrolatum (Zinc Oxide Paste (Z-Guard) 1 Applic) 1 applic TOPICAL Q2HR PRN; Protocol PRN Reason: Wound Healing Physical exam: Gen: This is a 64-year-old male who was recently extubated yesterday 10/15/2024 maintained on 6 L high flow nasal cannula, well-developed, elderly appearing, ill-appearing, appears older than stated age HEENT: Head is atraumatic, normocephalic. Pupils equal, round. Sclerae is anicteric. NECK: Supple. No JVD. No lymphadenopathy. No thyromegaly. LUNGS: Diminished breath sounds bilaterally with some bronchial congestion and coarse scattered rhonchi. No intercostal retractions. HEART: S1, S2 are muffled ABDOMEN: Soft. Somewhat taut, positive bowel sounds are present. No masses. No tenderness. Significant scrotal edema noted, minimally improved EXTREMITIES: Bilateral upper and lower extremity edema noted. No calf tenderness. Generalized upper and lower extremity edema along with scrotal swelling noted NEUROLOGICAL: Patient is awake, alert and oriented x 2-3, diffusely weak Assessment: -Chronic alcohol abuse with acute alcohol withdrawal syndrome; CIWA protocol in place; patient remains on thiamine and Protonix. -Acute hypoxic respiratory failure was intubated following knee surgery on 10/10 and successfully extubated on 10/15/24. Currently maintained on 6 L high flow -Congestive heart failure with an EF of 45%, diastolic dysfunction -Rhabdomyolysis secondary to immobility due to fall. Improving with IV hydration. We will continue to monitor strict STERLING's, daily weights, renal function electrolytes -Acute kidney injury secondary to ATN due to to septic shock and rhabdomyolysis. Improving; monitor renal function electrolytes; avoid nephrotoxins and hypotension. -Relative adrenal insufficiency. On IV hydrocortisone. -Transaminitis. Improving. -Streptococcus group A bacteremia. Currently on cefazolin per ID recommendation; continue to monitor CBC, CRP and procalcitonin. Possibly secondary to right knee infection -Hyponatremia, likely hypovolemic; resolved. -Type 1 diabetes mellitus; we will continue to monitor Accu-Cheks before every meal and at bedtime with insulin sliding scale. -History of coronary artery disease with previous catheterization and stent placement. -Hypertension; currently not on any antihypertensive medication. -Right knee pain with swelling, status post aspiration along with arthroscopic lavage, culture showing strep a with septic arthritis -Sepsis, present on admission possibly secondary to right knee arthritis with bacteremia GI prophylaxis DVT prophylaxis Full code Plan: Patient continues in the ICU with multiple consultations following maintained on IV antibiotics status post arthroscopy with lavage of the right knee and culture showing strep a awaiting finalized cultures. Repeat blood cultures thus far are negative and will continue on IV antibiotics with ID following Patient was successfully extubated and currently maintained on 6 L high flow. Recommend daily chest x-ray Patient failed swallow eval and awaiting reevaluation with speech therapy, continue n.p.o. for now Blood sugars variable and uncontrolled will adjust insulins and continue with Accu-Cheks before meals and at bedtime as well as 2 AM and adjust long-acting Discussion was had with family at the bedside as well as patient and will likely need rehab on discharge. Patient will need PT/OT therapy evaluation once more stable Follow-up on repeat labs and monitor kidney functions and electrolytes closely. Sodium remains elevated at 150 and is maintained on D5 and water. Patient was given Lasix for generalized edema. Kidney function stable at this time. Overall prognosis remains guarded at this time The impression and plan of care has been dictated by Mercy Gilmore, Nurse Practitioner as directed. Dr. Randall MD I have performed a history and examination and MDM of this patient, discussed the same with the dictator, and agree with the dictator's assessment and plan as written ,documented as a scribe. Based on total visit time, I have performed more than 50% of the visit. Objective - Vital Signs Vital signs: Vital Signs Temp 100.5 F H 10/15/24 20:00 Pulse 86 10/16/24 03:00 Resp 17 10/16/24 03:00 BP 120/63 10/16/24 03:00 Pulse Ox 99 10/16/24 03:00 FiO2 40 10/16/24 05:00 Intake & Output 10/15/24 10/15/24 10/16/24 06:59 18:59 06:59 Intake Total 9231.842 5592.268 349 Output Total 1935 1535 865 Balance -556.583 -326.732 -516 Weight 91 kg 88.4 kg Intake: IV 138 246 349 0.9NS 55 60 25 Dextrose 5% in Water 1, 300 000 ml @ 75 mls/hr IV . [id number] [facility] Rx#:[id number] Pressure Bag 33 36 24 ceFAZolin 2 gm In Sodium 50 150 Chloride 0.9% 50 ml @ 100 mls/hr IVPB Q8HR [facility] Rx# :[id number] Intake, IV Titration 170.417 102.268 Amount Dexmedetomidine/0.9% NaCl 7.501 (Pmx) 400 mcg In Empty Bag 1 bag @ 0.2 MCG/KG/HR 4.64 mls/hr IV .[id number] [facility] Rx#:[id number] propofoL 1,000 mg In 162.916 102.268 Empty Bag 1 bag @ 15 MCG/ KG/MIN 7.704 mls/hr IV . [id number] [facility] Rx#:[id number] Tube Feeding 770 560 Other 300 300 Output: Urine 5 1535 865 Other: Voiding Method Indwelling Catheter Indwelling Catheter Indwelling Catheter ABP, PAP, CO, CI - Last Documented Arterial Blood Pressure 112/42 - Labs CBC & Chem 7: 10/16/24 04:30 10/16/24 12:47 Labs: Abnormal Lab Results - Last 24 Hours (Table) 10/15/24 10/15/24 10/15/24 Range/Units 08:26 11:28 11:37 WBC (3.8-10.6) k/uL RBC (4.30-5.90) m/uL Hgb (13.0-17.5) gm/dL Hct (39.0-53.0) % MCV (80.0-100.0) fL MCH (25.0-35.0) pg Plt Count (150-450) k/uL Neutrophils # (1.3-7.7) k/uL Macrocytosis ABG pH (7.35-7.45) ABG pO2 (83-108) mmHg ABG HCO3 (21-25) mmol/L ABG Total CO2 (19-24) mmol/L ABG O2 Saturation (94-97) % Hemoglobin (13.0-17.5) gm/dL Sodium (137-145) mmol/L Potassium (3.5-5.1) mmol/L Chloride (98-107) mmol/L Carbon Dioxide (22-30) mmol/L BUN (9-20) mg/dL Glucose (74-99) mg/dL POC Glucose (mg/dL) 185 H 178 H (70-110) mg/dL Calcium (8.4-10.2) mg/dL PTH Intact 112.0 H (14.0-72.0) pg/mL 10/15/24 10/15/24 10/15/24 Range/Units 14:55 18:00 20:54 WBC (3.8-10.6) k/uL RBC (4.30-5.90) m/uL Hgb (13.0-17.5) gm/dL Hct (39.0-53.0) % MCV (80.0-100.0) fL MCH (25.0-35.0) pg Plt Count (150-450) k/uL Neutrophils # (1.3-7.7) k/uL Macrocytosis ABG pH 7.53 H (7.35-7.45) ABG pO2 59 L* (83-108) mmHg ABG HCO3 34 H (21-25) mmol/L ABG Total CO2 35 H (19-24) mmol/L ABG O2 Saturation 93.2 L (94-97) % Hemoglobin 7.8 L (13.0-17.5) gm/dL Sodium 149 H (137-145) mmol/L Potassium (3.5-5.1) mmol/L Chloride (98-107) mmol/L Carbon Dioxide (22-30) mmol/L BUN (9-20) mg/dL Glucose (74-99) mg/dL POC Glucose (mg/dL) 45 L* (70-110) mg/dL Calcium (8.4-10.2) mg/dL PTH Intact (14.0-72.0) pg/mL 10/15/24 10/16/24 10/16/24 Range/Units 23:24 04:30 04:30 WBC 16.0 H (3.8-10.6) k/uL RBC 2.15 L (4.30-5.90) m/uL Hgb 7.8 L (13.0-17.5) gm/dL Hct 24.6 L (39.0-53.0) % MCV 114.4 H (80.0-100.0) fL MCH 36.1 H (25.0-35.0) pg Plt Count 126 L (150-450) k/uL Neutrophils # 14.5 H (1.3-7.7) k/uL Macrocytosis Marked A ABG pH (7.35-7.45) ABG pO2 (83-108) mmHg ABG HCO3 (21-25) mmol/L ABG Total CO2 (19-24) mmol/L ABG O2 Saturation (94-97) % Hemoglobin (13.0-17.5) gm/dL Sodium 149 H (137-145) mmol/L Potassium 3.4 L (3.5-5.1) mmol/L Chloride 115 H (98-107) mmol/L Carbon Dioxide 34 H (22-30) mmol/L BUN 37 H (9-20) mg/dL Glucose 134 H (74-99) mg/dL POC Glucose (mg/dL) 69 L (70-110) mg/dL Calcium 7.3 L (8.4-10.2) mg/dL PTH Intact (14.0-72.0) pg/mL 10/16/24 Range/Units 04:34 WBC (3.8-10.6) k/uL RBC (4.30-5.90) m/uL Hgb (13.0-17.5) gm/dL Hct (39.0-53.0) % MCV (80.0-100.0) fL MCH (25.0-35.0) pg Plt Count (150-450) k/uL Neutrophils # (1.3-7.7) k/uL Macrocytosis ABG pH (7.35-7.45) ABG pO2 (83-108) mmHg ABG HCO3 (21-25) mmol/L ABG Total CO2 (19-24) mmol/L ABG O2 Saturation (94-97) % Hemoglobin (13.0-17.5) gm/dL Sodium (137-145) mmol/L Potassium (3.5-5.1) mmol/L Chloride (98-107) mmol/L Carbon Dioxide (22-30) mmol/L BUN (9-20) mg/dL Glucose (74-99) mg/dL POC Glucose (mg/dL) 145 H (70-110) mg/dL Calcium (8.4-10.2) mg/dL PTH Intact (14.0-72.0) pg/mL
[2024-10-16] MEDS: DEXTROSE 5% IN WATER 100 ML with AMIODARONE 150 MG IV ONE (21:09)
[2024-10-16] MEDS: SODIUM CHLORIDE 0.9% 1,000 ML IV ONE (21:11)
[2024-10-16] MEDS: DEXTROSE 5% IN WATER 1,000 ML IV SCH (21:11)
[2024-10-16] MEDS: AMIODARONE 360 MG in DEXTROSE 5% IN WATER 200 ML IV ONE (21:37)
[2024-10-16] MEDS: INSULIN DETEMIR (LEVEMIR) 100 UNIT/ML SYR SQ SCH (21:39)
[2024-10-16 21:45] LABS: Glucose,Whole Blood 304 mg/dL (70-110)
[2024-10-17] MEDS: AMIODARONE 450 MG in DEXTROSE 5% IN WATER 250 ML IV SCH (03:12)
[2024-10-17 03:43] LABS: Glucose,Whole Blood 231 mg/dL (70-110)
[2024-10-17 04:27] LABS: Basophils % (A) 0 %; Eosinophils # (A) 0.1 k/uL (0-0.7); Eosinophils % (A) 0 %; HCT 23.5 % (39.0-53.0); HGB 7.5 gm/dL (13.0-17.5); Hypochromasia Slight; Lymphocytes # (A) 1.1 k/uL (1.0-4.8); Lymphocytes % (A) 9 %; MCHC 31.7 g/dL (31.0-37.0); MCV 113.5 fL (80.0-100.0); Macrocytosis Marked; Mean Platelet Volume 11.1; Monocytes # (A) 0.2 k/uL (0-1.0); Monocytes % (A) 2 %; Neutrophils # (A) 10.3 k/uL (1.3-7.7); Neutrophils % (A) 88 %; Platelet Count 173 k/uL (150-450); RBC 2.07 m/uL (4.30-5.90); RDW 14.6 % (11.5-15.5); WBC 11.8 k/uL (3.8-10.6)
[2024-10-17 04:39] LABS: ALT 9 U/L (4-49); AST 44 U/L (17-59); African American GFR (CKD) 87 (>60 ml/min/1.73 sqM); Albumin 2.1 g/dL (3.5-5.0); Alkaline Phosphatase 239 U/L (38-126); Anion Gap 2 mmol/L; Blood Urea Nitrogen 43 mg/dL (9-20); Calcium 6.9 mg/dL (8.4-10.2); Carbon Dioxide 31 mmol/L (22-30); Chloride 113 mmol/L (98-107); Glucose 201 mg/dL (74-99); Magnesium 1.8 mg/dL (1.6-2.3); Non-African American GFR(CKD) 75 (>60 ml/min/1.73 sqM); Potassium 3.4 mmol/L (3.5-5.1); Sodium 146 mmol/L (137-145); Total Bilirubin 0.5 mg/dL (0.2-1.3); Total Protein 5.4 g/dL (6.3-8.2)
[2024-10-17] MEDS: MAGNESIUM SULFATE-D5W PMX 1 GM in DEXTROSE/WATER 1 100ML.BAG IVPB ONE (04:58)
[2024-10-17] MEDS: POTASSIUM CHLORIDE 20 MEQ in WATER FOR INJECTION 1 100ML.BAG IVPB SCH (05:00)
[2024-10-17 05:49] LABS: ABG Base Excess 7.3 mmol/L; ABG HCO3 32 mmol/L (21-25); ABG Oxygen Saturation 80.1 % (94-97); ABG PCO2 44 mmHg (35-45); ABG PH 7.47 (7.35-7.45); ABG TCO2 33 mmol/L (19-24); Allen Test Performed? Yes
[2024-10-17 05:51] LABS: ABG PO2 45 mmHg (83-108)
[2024-10-17 06:06] LABS: Glucose,Whole Blood 231 mg/dL (70-110)
--- NOTE | 2024-10-17 08:57 | XR ---
EXAMINATION TYPE: XR chest 1V portable DATE OF EXAM: 10/17/2024 4:54 AM COMPARISON: 10/16/2024 CLINICAL INDICATION: Male, 64 years old with history of mechanical intubation, FINDINGS: No change in bibasilar opacities. Stable appearance of the cardio-mediastinal structures at this time. Pleural effusion unchanged. IMPRESSION: 1. Stable portable chest. Clinical correlation and follow up until resolution is recommended. [facility], , 10/17/2024 8:55 AM
--- NOTE | 2024-10-17 09:52 | P.PN ---
Subjective Progress Note Date: 10/16/24 Principal diagnosis: Reason for follow-up is Streptococcus agalactiae bacteremia Patient is a 64-year-old male past medical history significant for diabetes mellitus hypertension hyperlipidemia VT osteoarthritis coronary disease patient was brought into the hospital after apparently the patient was found to be facedown on the ground with contusion to his forehead and abrasion to his knee and some bloody toes, patient did have a fever subsequently blood cultures came back positive with Streptococcus agalactiae prompting this consultation. Patient noticed to have swelling of the right knee aspirate was purulent subsequently the patient did have a right knee washout completed by orthopedics on 10/10/2024. On today's evaluation that is 10/16/2024, Patient did have a new fever however the patient has been extubated and is currently breathing comfortable nasal ca nnula oxygen slightly more awake however not a very good historian no vomiting or diarrhea has been reported. Patient white count is up to 16,000, creatinine is 0.89 patient did have a chest x-ray several bilateral infiltrates small effusion Objective - Vital Signs Vital signs: Vital Signs Temp 99.9 F H 10/16/24 08:00 Pulse 96 10/16/24 10:00 Resp 14 10/16/24 10:00 BP 117/65 10/16/24 10:00 Pulse Ox 97 10/16/24 10:00 FiO2 40 10/16/24 08:00 Intake & Output 10/15/24 10/16/24 10/16/24 18:59 06:59 18:59 Intake Total 1208.268 349 201 Output Total 1535 865 435 Balance -326.732 -516 -234 Weight 88.4 kg Intake: IV 246 349 201 0.9NS 60 25 Dextrose 5% in Water 1, 300 192 000 ml @ 75 mls/hr IV . [id number] [facility] Rx#:[id number] Pressure Bag 36 24 9 ceFAZolin 2 gm In Sodium 150 Chloride 0.9% 50 ml @ 100 mls/hr IVPB Q8HR [facility] Rx# :[id number] Intake, IV Titration 102.268 Amount propofoL 1,000 mg In 102.268 Empty Bag 1 bag @ 15 MCG/ KG/MIN 7.704 mls/hr IV . [id number] [facility] Rx#:[id number] Tube Feeding 560 Other 300 Output: Urine 1535 865 435 Other: Voiding Method Indwelling Catheter Indwelling Catheter Indwelling Catheter ABP, PAP, CO, CI - Last Documented Arterial Blood Pressure 115/40 - Exam GENERAL DESCRIPTION: Middle-age male intubated on the vent RESPIRATORY SYSTEM: Unlabored breathing , decreased breath sounds at bases HEART: S1 S2 regular rate and rhythm , ABDOMEN: Soft , no tenderness EXTREMITIES: Swelling to the lower extremity and right knee but no redness - Labs CBC & Chem 7: 10/17/24 03:50 10/17/24 03:50 Labs: Abnormal Lab Results - Last 24 Hours (Table) 10/15/24 10/15/24 10/15/24 Range/Units 11: 11:37 14:55 WBC (3.8-10.6) k/uL RBC (4.30-5.90) m/uL Hgb (13.0-17.5) gm/dL Hct (39.0-53.0) % MCV (80.0-100.0) fL MCH (25.0-35.0) pg Plt Count (150-450) k/uL Neutrophils # (1.3-7.7) k/uL Macrocytosis ABG pH 7.53 H (7.35-7.45) ABG pO2 59 L* (83-108) mmHg ABG HCO3 34 H (21-25) mmol/L ABG Total CO2 35 H (19-24) mmol/L ABG O2 Saturation 93.2 L (94-97) % Hemoglobin 7.8 L (13.0-17.5) gm/dL Sodium (137-145) mmol/L Potassium (3.5-5.1) mmol/L Chloride (98-107) mmol/L Carbon Dioxide (22-30) mmol/L BUN (9-20) mg/dL Glucose (74-99) mg/dL POC Glucose (mg/dL) 178 H (70-110) mg/dL Calcium (8.4-10.2) mg/dL PTH Intact 112.0 H (14.0-72.0) pg/mL 10/15/24 10/15/24 10/15/24 Range/Units 18:00 20:54 23:24 WBC (3.8-10.6) k/uL RBC (4.30-5.90) m/uL Hgb (13.0-17.5) gm/dL Hct (39.0-53.0) % MCV (80.0-100.0) fL MCH (25.0-35.0) pg Plt Count (150-450) k/uL Neutrophils # (1.3-7.7) k/uL Macrocytosis ABG pH (7.35-7.45) ABG pO2 (83-108) mmHg ABG HCO3 (21-25) mmol/L ABG Total CO2 (19-24) mmol/L ABG O2 Saturation (94-97) % Hemoglobin (13.0-17.5) gm/dL Sodium 149 H (137-145) mmol/L Potassium (3.5-5.1) mmol/L Chloride (98-107) mmol/L Carbon Dioxide (22-30) mmol/L BUN (9-20) mg/dL Glucose (74-99) mg/dL POC Glucose (mg/dL) 45 L* 69 L (70-110) mg/dL Calcium (8.4-10.2) mg/dL PTH Intact (14.0-72.0) pg/mL 10/16/24 10/16/24 10/16/24 Range/Units 04:30 04:30 04:34 WBC 16.0 H (3.8-10.6) k/uL RBC 2.15 L (4.30-5.90) m/uL Hgb 7.8 L (13.0-17.5) gm/dL Hct 24.6 L (39.0-53.0) % MCV 114.4 H (80.0-100.0) fL MCH 36.1 H (25.0-35.0) pg Plt Count 126 L (150-450) k/uL Neutrophils # 14.5 H (1.3-7.7) k/uL Macrocytosis Marked A ABG pH (7.35-7.45) ABG pO2 (83-108) mmHg ABG HCO3 (21-25) mmol/L ABG Total CO2 (19-24) mmol/L ABG O2 Saturation (94-97) % Hemoglobin (13.0-17.5) gm/dL Sodium 149 H (137-145) mmol/L Potassium 3.4 L (3.5-5.1) mmol/L Chloride 115 H (98-107) mmol/L Carbon Dioxide 34 H (22-30) mmol/L BUN 37 H (9-20) mg/dL Glucose 134 H (74-99) mg/dL POC Glucose (mg/dL) 145 H (70-110) mg/dL Calcium 7.3 L (8.4-10.2) mg/dL PTH Intact (14.0-72.0) pg/mL 10/16/24 Range/Units 08:25 WBC (3.8-10.6) k/uL RBC (4.30-5.90) m/uL Hgb (13.0-17.5) gm/dL Hct (39.0-53.0) % MCV (80.0-100.0) fL MCH (25.0-35.0) pg Plt Count (150-450) k/uL Neutrophils # (1.3-7.7) k/uL Macrocytosis ABG pH (7.35-7.45) ABG pO2 (83-108) mmHg ABG HCO3 (21-25) mmol/L ABG Total CO2 (19-24) mmol/L ABG O2 Saturation (94-97) % Hemoglobin (13.0-17.5) gm/dL Sodium (137-145) mmol/L Potassium (3.5-5.1) mmol/L Chloride (98-107) mmol/L Carbon Dioxide (22-30) mmol/L BUN (9-20) mg/dL Glucose (74-99) mg/dL POC Glucose (mg/dL) 205 H (70-110) mg/dL Calcium (8.4-10.2) mg/dL PTH Intact (14.0-72.0) pg/mL Assessment and Plan (1) Sepsis Current Visit: Yes Status: Acute Code(s): A41.9 - SEPSIS, UNSPECIFIED ORGANISM SNOMED Code(s): 05590113 (2) Streptococcal bacteremia Current Visit: Yes Status: Acute Code(s): R78.81 - BACTEREMIA; B95.5 - UNSP STREPTOCOCCUS THE CAUSE OF DISEASES [facility] SNOMED Code(s): 453499740380 Plan: 1patient presented to the hospital with sepsis in this patient who did have fever tachycardia elevated white count and now with evidence of streptococcal bacteremia which is usually of skin and soft tissue origin 2-patient noticed to have right knee effusion has been evaluated by orthopedics and is status post aspiration with purulent drainage subsequently did have right knee washout by orthopedic cultures are pending may need further workup including MRI of the spine when stable. Ortho is following the patient closely 3patient right knee fluid culture also came back positive with group A strep 4-patient did have a new fever and concern for possible pneumonia we need to cover for resistant gram-positive as well as gram-negative pathogen 5sputum culture has been requested we will discontinue cefazolin start the patient cefepime and vancomycin pending culture finalization Dictation was produced using [employer] dictation software. please excuse any grammatical, word or spelling errors. Time with Patient: Less than 30
[2024-10-17] MEDS: FUROSEMIDE 10 MG/ML 4 ML VIAL IV STA (09:54)
--- NOTE | 2024-10-17 10:27 | P.PN ---
Subjective patient is seen for follow-up for acute kidney injury. Renal function has improved. Patient was extubated Urine output at 100 - 200 mL an hour. Serum creatinine at 1.0 Receiving Free water with tube feedings Objective - Vital Signs Vital signs: Vital Signs Temp 97.8 F 10/17/24 09:00 Pulse 73 10/17/24 10:00 Resp 19 10/17/24 10:00 BP 111/54 10/17/24 10:00 Pulse Ox 100 10/17/24 10:00 FiO2 100 10/17/24 09:00 Intake & Output 10/16/24 10/17/24 10/17/24 18:59 06:59 18:59 Intake Total 858 858 237 Output Total 1135 875 250 Balance -277 -17 -13 Weight 88.4 kg 89.6 kg Intake: IV 858 858 237 Dextrose 5% in Water 1, 825 825 225 000 ml @ 75 mls/hr IV . [id number] ONE Rx#:[id number] Pressure Bag 33 33 12 Output: Urine 1135 875 250 Other: Voiding Method Indwelling Catheter Indwelling Catheter ABP, PAP, CO, CI - Last Documented Arterial Blood Pressure 121/47 - Exam patient is awake and following commands. Examination of the heart S1 and S2 Examination of the lungs bilateral breath sounds are heard Abdomen is soft nontender Examination of lower extremities shows edema 1+. Discoloration of toes noted in left foot. - Labs CBC & Chem 7: 10/17/24 03:50 10/17/24 03:50 Labs: Abnormal Lab Results - Last 24 Hours (Table) 10/16/24 10/16/24 10/16/24 Range/Units 04:30 12:03 16:10 WBC (3.8-10.6) k/uL RBC (4.30-5.90) m/uL Hgb (13.0-17.5) gm/dL Hct (39.0-53.0) % MCV (80.0-100.0) fL MCH (25.0-35.0) pg Neutrophils # (1.3-7.7) k/uL Macrocytosis ABG pH (7.35-7.45) ABG pO2 (83-108) mmHg ABG HCO3 (21-25) mmol/L ABG Total CO2 (19-24) mmol/L ABG O2 Saturation (94-97) % Hemoglobin (13.0-17.5) gm/dL Sodium (137-145) mmol/L Potassium (3.5-5.1) mmol/L Chloride (98-107) mmol/L Carbon Dioxide (22-30) mmol/L BUN (9-20) mg/dL Glucose (74-99) mg/dL POC Glucose (mg/dL) 163 H 216 H (70-110) mg/dL Calcium (8.4-10.2) mg/dL Alkaline Phosphatase (38-126) U/L Total Protein (6.3-8.2) g/dL Albumin (3.5-5.0) g/dL Procalcitonin 1.08 H (0.02-0.50) ng/mL 10/16/24 10/17/24 10/17/24 Range/Units 21:34 03:39 03:50 WBC 11.8 H (3.8-10.6) k/uL RBC 2.07 L (4.30-5.90) m/uL Hgb 7.5 L (13.0-17.5) gm/dL Hct 23.5 L (39.0-53.0) % MCV 113.5 H (80.0-100.0) fL MCH 36.0 H (25.0-35.0) pg Neutrophils # 10.3 H (1.3-7.7) k/uL Macrocytosis Marked A ABG pH (7.35-7.45) ABG pO2 (83-108) mmHg ABG HCO3 (21-25) mmol/L ABG Total CO2 (19-24) mmol/L ABG O2 Saturation (94-97) % Hemoglobin (13.0-17.5) gm/dL Sodium (137-145) mmol/L Potassium (3.5-5.1) mmol/L Chloride (98-107) mmol/L Carbon Dioxide (22-30) mmol/L BUN (9-20) mg/dL Glucose (74-99) mg/dL POC Glucose (mg/dL) 304 H 231 H (70-110) mg/dL Calcium (8.4-10.2) mg/dL Alkaline Phosphatase (38-126) U/L Total Protein (6.3-8.2) g/dL Albumin (3.5-5.0) g/dL Procalcitonin (0.02-0.50) ng/mL 10/17/24 10/17/24 10/17/24 Range/Units 03:50 05:43 06:04 WBC (3.8-10.6) k/uL RBC (4.30-5.90) m/uL Hgb (13.0-17.5) gm/dL Hct (39.0-53.0) % MCV (80.0-100.0) fL MCH (25.0-35.0) pg Neutrophils # (1.3-7.7) k/uL Macrocytosis ABG pH 7.47 H (7.35-7.45) ABG pO2 45 L* (83-108) mmHg ABG HCO3 32 H (21-25) mmol/L ABG Total CO2 33 H (19-24) mmol/L ABG O2 Saturation 80.1 L (94-97) % Hemoglobin 7.9 L (13.0-17.5) gm/dL Sodium 146 H (137-145) mmol/L Potassium 3.4 L (3.5-5.1) mmol/L Chloride 113 H (98-107) mmol/L Carbon Dioxide 31 H (22-30) mmol/L BUN 43 H (9-20) mg/dL Glucose 201 H (74-99) mg/dL POC Glucose (mg/dL) 231 H (70-110) mg/dL Calcium 6.9 L (8.4-10.2) mg/dL Alkaline Phosphatase 239 H (38-126) U/L Total Protein 5.4 L (6.3-8.2) g/dL Albumin 2.1 L (3.5-5.0) g/dL Procalcitonin (0.02-0.50) ng/mL Microbiology - Last 24 Hours (Table) 10/16/24 20:30 Gram Stain - Preliminary Sputum Assessment and Plan Assessment: 1. Acute kidney injury secondary to ATN secondary to septic shock and rhabdomyolysis. Creatinine 3.18 on admission and is improved to 0.9 -1.0. Baseline creatinine near 1. No hydronephrosis noted on kidney ultrasound. 2. Rhabdomyolysis secondary to immobility. CK levels trending down. 3. Strep bacteremia on antibiotics. 4. Anion gap metabolic acidosis secondary to acute kidney injury and lactic acidosis. Now due to IV fluids. Status post bicarb drip. 5. Hyponatremia secondary to hypovolemia as well as acute kidney injury. Better. 6. Hypomagnesemia from poor intake and alcohol abuse. Replaced. 7. History of alcohol abuse. 8. Hypocalcemia, replaced. 25-hydroxy vitamin D was 26.5, started on supplementation. 9. Hypokalemia from poor intake. Replaced. Better. 10. A-fib with RVR status post amiodarone drip. 11. Volume overload with significant scrotal edema Plan: continue D5W, decreased to 50 mL an hour continue vitamin D supplementation, increase dose check PTH as calcium remains on the lower side
--- NOTE | 2024-10-17 10:32 | P.PN ---
Subjective Progress Note Date: 10/17/24 PROGRESS NOTE The patient is a 64-year-old male with known history of CAD status post stenting of the left circumflex with in-stent restenosis in 2021, treated medically who presented with change in mental status, unresponsiveness, fall most likely related to chronic alcoholism. He was intubated and subsequently extubated. He had episodes of paroxysmal atrial fibrillation and has maintained sinus mech anism until yesterday when he went in atrial fibrillation. He is back in sinus mechanism at this time. Hemodynamically stable. On no vasopressors. He is on the BiPAP. He is blood pressure is stable. He had a recent septic knee arthritis with staph bacteremia. His echocardiogram on presentation showed an ejection fraction of 45 to 50% with mild mitral and tricuspid regurgitation. His right-sided pressure was 38 mmHg. Medications: IV amiodarone, furosemide was given once, insulin, vancomycin. PHYSICAL EXAMINATION: Blood pressure 120/50 heart rate 70, on BiPAP LUNGS: Clear to auscultation anteriorly with decreased breath sounds in the right base HEART: Regular rate and rhythm, S1, S2. No S3. Systolic ejection murmur ABDOMEN: Soft, nontender, no organomegaly EXTREMETIES: +1 edema LAB: Hemoglobin 7.5, platelets count 173, pH 7.47, pO2 45. Potassium 3.4. BUN 43, creatinine 1.06. IMPRESSION: 1. Paroxysmal atrial fibrillation, back in sinus mechanism 2. Encephalopathy on presentation, probably combination of septic shock and alcoholism 3. Respiratory failure, improving 4. Septic arthritis 5. History of CAD, stable 6. Thrombocytopenia, improving 7. Mild cardiomyopathy 8. Chronic alcohol intake 9. History of diabetes PLAN: 1. Continue IV amiodarone for now 2. Follow hemoglobin and platelets, if stable consider adding heparin. 3. May require thoracentesis 4. Depending on the blood pressure and heart rate consider starting beta- katja when he is taking p.o. Objective - Vital Signs Vital signs: Vital Signs Temp 97.8 F 10/17/24 09:00 Pulse 73 10/17/24 10:00 Resp 19 10/17/24 10:00 BP 111/54 10/17/24 10:00 Pulse Ox 100 10/17/24 10:00 FiO2 100 10/17/24 09:00 Intake & Output 11/27/24 11/28/24 11/28/24 18:59 06:59 18:59 Intake Total 858 858 237 Output Total 1135 875 250 Balance -277 -17 -13 Weight 88.4 kg 89.6 kg Intake: IV 858 858 237 Dextrose 5% in Water 1, 825 825 225 000 ml @ 75 mls/hr IV . [id number] ONE Rx#:[id number] Pressure Bag 33 33 12 Output: Urine 1135 875 250 Other: Voiding Method Indwelling Catheter Indwelling Catheter ABP, PAP, CO, CI - Last Documented Arterial Blood Pressure 121/47 - Labs CBC & Chem 7: 10/17/24 03:50 10/17/24 03:50 Labs: Abnormal Lab Results - Last 24 Hours (Table) 10/16/24 10/16/24 10/16/24 Range/Units 04:30 12:03 16:10 WBC (3.8-10.6) k/uL RBC (4.30-5.90) m/uL Hgb (13.0-17.5) gm/dL Hct (39.0-53.0) % MCV (80.0-100.0) fL MCH (25.0-35.0) pg Neutrophils # (1.3-7.7) k/uL Macrocytosis ABG pH (7.35-7.45) ABG pO2 (83-108) mmHg ABG HCO3 (21-25) mmol/L ABG Total CO2 (19-24) mmol/L ABG O2 Saturation (94-97) % Hemoglobin (13.0-17.5) gm/dL Sodium (137-145) mmol/L Potassium (3.5-5.1) mmol/L Chloride (98-107) mmol/L Carbon Dioxide (22-30) mmol/L BUN (9-20) mg/dL Glucose (74-99) mg/dL POC Glucose (mg/dL) 163 H 216 H (70-110) mg/dL Calcium (8.4-10.2) mg/dL Alkaline Phosphatase (38-126) U/L Total Protein (6.3-8.2) g/dL Albumin (3.5-5.0) g/dL Procalcitonin 1.08 H (0.02-0.50) ng/mL 10/16/24 10/17/24 10/17/24 Range/Units 21:34 03:39 03:50 WBC 11.8 H (3.8-10.6) k/uL RBC 2.07 L (4.30-5.90) m/uL Hgb 7.5 L (13.0-17.5) gm/dL Hct 23.5 L (39.0-53.0) % MCV 113.5 H (80.0-100.0) fL MCH 36.0 H (25.0-35.0) pg Neutrophils # 10.3 H (1.3-7.7) k/uL Macrocytosis Marked A ABG pH (7.35-7.45) ABG pO2 (83-108) mmHg ABG HCO3 (21-25) mmol/L ABG Total CO2 (19-24) mmol/L ABG O2 Saturation (94-97) % Hemoglobin (13.0-17.5) gm/dL Sodium (137-145) mmol/L Potassium (3.5-5.1) mmol/L Chloride (98-107) mmol/L Carbon Dioxide (22-30) mmol/L BUN (9-20) mg/dL Glucose (74-99) mg/dL POC Glucose (mg/dL) 304 H 231 H (70-110) mg/dL Calcium (8.4-10.2) mg/dL Alkaline Phosphatase (38-126) U/L Total Protein (6.3-8.2) g/dL Albumin (3.5-5.0) g/dL Procalcitonin (0.02-0.50) ng/mL 10/17/24 10/17/24 10/17/24 Range/Units 03:50 05:43 06:04 WBC (3.8-10.6) k/uL RBC (4.30-5.90) m/uL Hgb (13.0-17.5) gm/dL Hct (39.0-53.0) % MCV (80.0-100.0) fL MCH (25.0-35.0) pg Neutrophils # (1.3-7.7) k/uL Macrocytosis ABG pH 7.47 H (7.35-7.45) ABG pO2 45 L* (83-108) mmHg ABG HCO3 32 H (21-25) mmol/L ABG Total CO2 33 H (19-24) mmol/L ABG O2 Saturation 80.1 L (94-97) % Hemoglobin 7.9 L (13.0-17.5) gm/dL Sodium 146 H (137-145) mmol/L Potassium 3.4 L (3.5-5.1) mmol/L Chloride 113 H (98-107) mmol/L Carbon Dioxide 31 H (22-30) mmol/L BUN 43 H (9-20) mg/dL Glucose 201 H (74-99) mg/dL POC Glucose (mg/dL) 231 H (70-110) mg/dL Calcium 6.9 L (8.4-10.2) mg/dL Alkaline Phosphatase 239 H (38-126) U/L Total Protein 5.4 L (6.3-8.2) g/dL Albumin 2.1 L (3.5-5.0) g/dL Procalcitonin (0.02-0.50) ng/mL Microbiology - Last 24 Hours (Table) 10/16/24 20:30 Gram Stain - Preliminary Sputum
--- NOTE | 2024-10-17 12:21 | US ---
EXAMINATION TYPE: US chest DATE OF EXAM: 10/17/2024 Exam done portable in ICU COMPARISON: NONE CLINICAL INDICATION: Male, 64 years old with history of possible thora; TECHNIQUE: Grayscale imaging of the chest. Targeted ultrasound of the posterior lower bilateral kayy thoraces FINDINGS: EXAM MEASUREMENTS: Right Pleural Effusion pocket size: 6.0 cm Right skin surface to fluid distance: 2.6 cm Left Pleural Effusion pocket size: 4.9 cm Left skin surface to fluid distance: 2.5 cm Right side marked for possible thoracentesis outside the dept. Left side marked for possible thoracentesis outside the dept. Pulmonologists are able to review the images in the patient?s EMR. IMPRESSIONS: Bilateral small pleural effusions. [facility], , 10/17/2024 12:18 PM
[2024-10-17 12:24] LABS: Glucose,Whole Blood 264 mg/dL (70-110)
--- NOTE | 2024-10-17 13:23 | P.PN ---
Subjective Progress Note Date: 10/17/24 64-year-old male who is being seen in the ICU due to hypovolemic shock and rhabdomyolysis. He is a poor historian due to altered mental status and unresponsiveness. All history is obtained from the chart. He initially presented to the emergency department after being found facedown on the ground with a contusion to his forehead and abrasions to his knee and left toes. She stated that he had been having nausea and vomiting for a day prior to being found down. He was noted to have diarrhea as well. Patient is a daily drinker and consumes about a fifth per day according to the notes he has not drank for the 2 days prior to this admission. He also has a history of type 1 diabetes mellitus. Initial EKG showed sinus tachycardia. Head/cervical spine CT showed no acute intracranial process and no acute fracture or traumatic subluxation of the cervical spine. Initial chest x-ray showed right middle lobe scarring/atelectasis, no acute pulmonary process. He had received 4 L of normal saline. Initial labs showed CK level of 18,113, WBCs 10.7, hemoglobin 12.5, sodium 126, creatinine 3.18 lactic acid 6.9, AST 401, ALT 65. Preliminary blood culture showed gram-positive cocci and patient was started on vancomycin. 24-hour interval change 10/12/2024 -- Patient is evaluated in the ICU. He remains intubated on mechanical ventilation - ABG shows pH 7.42, pCO2 38, pO2 74. - He is maintained on vasopressin 0.02 units/min, normal saline at 20 cc/h, IV hydrocortisone 50 mg every 6 hours, and Kefzol day 5. Labs are reviewed WBCs 17.4, hemoglobin 8.2, hematocrit 25.2, platelets 53, sodium 142, potassium 3.7, chloride 116, CO2 23, BUN 39, creatinine 1.18, gluco se 258. Ionized calcium 4.4. Magnesium 1.8. Today's chest x-ray is unchanged. Wound culture gram stain of the right knee preliminary report shows rare gram positive cocci. 10/13/2024 Patient is seen and evaluated in ICU at bedside; remains on the mechanical ventilator. Discussed with nursing staff. Concerns about elevated blood sugars; patient was placed on home dose of Lantus which did not help much - Blood gases show pO2 72, pCO2 41, and pH is 7.42. - The patient is on propofol at 35 mcg/kg/min, saline at 20 cc an hour, and vital high-protein at 60, with goal of 70. Yesterday, he had a brief spontaneous breathing trial, and he did poorly. Today he will again have a spontaneous breathing trial, of pressure support of 5 and CPAP of 5. He continues on Ancef. White count 18.8, hemoglobin 8.2, hematocrit 25.8, platelet count 78,000. Sodium 144, potassium 4.1, chlorides 117, CO2 26, BUN 47, creatinine 1.18. Glucose is 340. Albumin is 2.1. Previous blood cultures from October 06 show group A streptococci. Chest x-ray shows bibasilar infiltrates. -- For hyperglycemia I will increase dose of Lantus and add insulin lispro every 4 hours; continue with current sliding scale 10/14/2024 Patient is seen in follow-up today continues on Precedex and attempting to wean maintained on mechanical ventilation with an FiO2 of 50% PEEP is 5. Per nursing staff attempting sedation holiday although did not go well yesterday. Patient is maintained on antibiotics with infectious disease following and patient is status post right knee aspiration with preliminary culture showing strep a with positive blood cultures. Patient continues with significant swelling especially the scrotal area maintained on IV Lasix and will continue. No discussion of PEG and trach as of yet and patient remains full code. Prognosis is guarded. 10/15/2024 Patient is seen this morning continues to be in the ICU currently working on weaning FiO2 and undergoing sedation holiday. Patient is eye tracking and following commands and per pulmonary property officer working on extubation today. Will await official report and monitor closely. Patient is continued on antibiotics with infectious disease following. 10/16/2024 Patient is seen in follow-up this morning extubated successfully currently maintained on 6 L high flow nasal cannula. Patient is awake and responding appropriately to questions and commands. Patient is extremely lethargic at times and significantly weak with significant edema noted. Sodium is elevated at 150 and is continued on D5 and water. Blood sugars have been elevated and will adjust insulins accordingly. Patient swallow eval performed and failed awaiting reevaluation with speech. Continue n.p.o. for now. White count remains elevated patient is maintained on antibiotics with infectious disease following. Awaiting repeat cultures. Procalcitonin 1.06. Questions and concerns were answered to the best of my ability with son at the bedside. 10/17/2024 Patient is evaluated today in follow up in the ICU. He was extubated yesterday. Continues on oxygen support on 100% BiPAP at this time. Cultures from the right knee arthroscopy reveals Strep A. Chest xray today reveals no change to the bibasilar opacities. Chest ultrasound reveals right pleural effusion pocket size 6.0 cm and left pleural effusion pocket size of 4.9 cm. Both sides marked for possible thoracentesis. Labs today reveal white blood cell count of 11.8, hgb 7. 5, sodium 146, potassium 3.4, BUN 43, creatinine 1.06. Blood glucose 200s. Continues on IV amiodarone, IV cefepime, IV vancomycin. Patient is in normal sinus rhythm currently heart rate in the 80s. Review of systems: Constitutional: No reports of fatigue, fever, or chills Cardiovascular: No reports of chest pain or palpitations Respiratory: reports of shortness of breath with a weak cough GI: No reports of nausea, vomiting, or diarrhea, reports to feeling hungry although having difficulty in swallowing : No reports of dysuria or retention Neurovascular: reports of generalized weakness and significant swelling of upper and lower extremities All medications have been reviewed Physical exam: Gen: This is a 64-year-old male who was recently extubated yesterday 10/15/2024 maintained on 6 L high flow nasal cannula, well-developed, elderly appearing, ill-appearing, appears older than stated age HEENT: Head is atraumatic, normocephalic. Pupils equal, round. Sclerae is anicteric. NECK: Supple. No JVD. No lymphadenopathy. No thyromegaly. LUNGS: Diminished breath sounds bilaterally with some bronchial congestion and coarse scattered rhonchi. No intercostal retractions. HEART: S1, S2 are muffled ABDOMEN: Soft. Somewhat taut, positive bowel sounds are present. No masses. No tenderness. Significant scrotal edema noted, minimally improved EXTREMITIES: Bilateral upper and lower extremity edema noted. No calf tenderness. Generalized upper and lower extremity edema along with scrotal swelling noted NEUROLOGICAL: Patient is awake, alert and oriented x 2-3, diffusely weak Assessment: -Chronic alcohol abuse with acute alcohol withdrawal syndrome; [facility] protocol in place; patient remains on thiamine and Protonix. -Acute hypoxic respiratory failure was intubated following knee surgery on 10/10 and successfully extubated on 10/15/24. Currently maintained on 100% BiPAP. -Congestive heart failure with an EF of 45%, diastolic dysfunction -Rhabdomyolysis secondary to immobility due to fall. Improving with IV hydration. We will continue to monitor strict STERLING's, daily weights, renal function electrolytes -Acute kidney injury secondary to ATN due to to septic shock and rhabdomyolysis. Improving; monitor renal function electrolytes; avoid nephrotoxins and hypot ension. -Relative adrenal insufficiency. On IV hydrocortisone. -Transaminitis. Improving. -Streptococcus group A bacteremia. Currently on cefazolin per ID recommendation; continue to monitor CBC, CRP and procalcitonin. Possibly secondary to right knee infection -Hyponatremia, likely hypovolemic; resolved. -Type 1 diabetes mellitus; we will continue to monitor Accu-Cheks before every meal and at bedtime with insulin sliding scale. -History of coronary artery disease with previous catheterization and stent placement. -Hypertension; currently not on any antihypertensive medication. -Right knee pain with swelling, status post aspiration along with arthroscopic lavage, culture showing strep a with septic arthritis -Sepsis, present on admission possibly secondary to right knee arthritis with bacteremia GI prophylaxis DVT prophylaxis Full code Plan: Patient continues in the ICU with multiple consultations following maintained on IV antibiotics status post arthroscopy with lavage of the right knee and final cultures showing Strep A. Repeat blood cultures thus far are negative and will continue on IV antibiotics with ID following Patient was successfully extubated and currently maintained on BiPAP 100%. Recommend daily chest x-ray, Chest xray today reveals bilateral pleural effusions and right and left side marked for possible thoracentesis. Patient failed swallow eval and awaiting reevaluation with speech therapy, continue n.p.o. for now Blood sugars variable and uncontrolled will adjust insulins and continue with Accu-Cheks before meals and at bedtime as well as 2 AM and adjust long-acting Discussion was had with family at the bedside as well as patient and will likely need rehab on discharge. Patient will need PT/OT therapy evaluation once more stable Follow-up on repeat labs and monitor kidney functions and electrolytes closely. Sodium remains elevated at 146 and is maintained on D5 and water. Patient was given Lasix for generalized edema. Kidney function stable at this time. Overall prognosis remains guarded at this time The impression and plan of care has been dictated by Sharlene Pendleton Nurse Practitioner as directed. Dr. Randall MD I have performed a history and physical examination and medical decision making of this patient, discussed the same with the dictator, and agree with the dictators assessment and plan as written, documented as a scribe. Based on total visit time, I have performed more than 50% of this visit. Objective - Vital Signs Vital signs: Vital Signs Temp 98.1 F 10/17/24 00:00 Pulse 86 10/17/24 07:47 Resp 27 H 10/17/24 07:00 BP 113/56 10/17/24 06:00 Pulse Ox 100 10/17/24 07:00 FiO2 100 10/17/24 07:37 Intake & Output 10/16/24 10/17/24 10/17/24 18:59 06:59 18:59 Intake Total 858 858 78 Output Total 1135 875 100 Balance -277 -17 -22 Weight 88.4 kg 89.6 kg Intake: IV 858 858 78 Dextrose 5% in Water 1, 825 825 75 000 ml @ 75 mls/hr IV . [id number] ONE Rx#:[id number] Pressure Bag 33 33 3 Output: Urine 1135 875 100 Other: Voiding Method Indwelling Catheter Indwelling Catheter ABP, PAP, CO, CI - Last Documented Arterial Blood Pressure 125/49 - Labs CBC & Chem 7: 10/17/24 03:50 10/17/24 03:50 Labs: Abnormal Lab Results - Last 24 Hours (Table) 10/16/24 10/16/24 10/16/24 Range/Units 04:30 12:03 16:10 WBC (3.8-10.6) k/uL RBC (4.30-5.90) m/uL Hgb (13.0-17.5) gm/dL Hct (39.0-53.0) % MCV (80.0-100.0) fL MCH (25.0-35.0) pg Neutrophils # (1.3-7.7) k/uL Macrocytosis ABG pH (7.35-7.45) ABG pO2 (83-108) mmHg ABG HCO3 (21-25) mmol/L ABG Total CO2 (19-24) mmol/L ABG O2 Saturation (94-97) % Hemoglobin (13.0-17.5) gm/dL Sodium (137-145) mmol/L Potassium (3.5-5.1) mmol/L Chloride (98-107) mmol/L Carbon Dioxide (22-30) mmol/L BUN (9-20) mg/dL Glucose (74-99) mg/dL POC Glucose (mg/dL) 163 H 216 H (70-110) mg/dL Calcium (8.4-10.2) mg/dL Alkaline Phosphatase (38-126) U/L Total Protein (6.3-8.2) g/dL Albumin (3.5-5.0) g/dL Procalcitonin 1.08 H (0.02-0.50) ng/mL 10/16/24 10/17/24 10/17/24 Range/Units 21:34 03:39 03:50 WBC 11.8 H (3.8-10.6) k/uL RBC 2.07 L (4.30-5.90) m/uL Hgb 7.5 L (13.0-17.5) gm/dL Hct 23.5 L (39.0-53.0) % MCV 113.5 H (80.0-100.0) fL MCH 36.0 H (25.0-35.0) pg Neutrophils # 10.3 H (1.3-7.7) k/uL Macrocytosis Marked A ABG pH (7.35-7.45) ABG pO2 (83-108) mmHg ABG HCO3 (21-25) mmol/L ABG Total CO2 (19-24) mmol/L ABG O2 Saturation (94-97) % Hemoglobin (13.0-17.5) gm/dL Sodium (137-145) mmol/L Potassium (3.5-5.1) mmol/L Chloride (98-107) mmol/L Carbon Dioxide (22-30) mmol/L BUN (9-20) mg/dL Glucose (74-99) mg/dL POC Glucose (mg/dL) 304 H 231 H (70-110) mg/dL Calcium (8.4-10.2) mg/dL Alkaline Phosphatase (38-126) U/L Total Protein (6.3-8.2) g/dL Albumin (3.5-5.0) g/dL Procalcitonin (0.02-0.50) ng/mL 10/17/24 10/17/24 10/17/24 Range/Units 03:50 05:43 06:04 WBC (3.8-10.6) k/uL RBC (4.30-5.90) m/uL Hgb (13.0-17.5) gm/dL Hct (39.0-53.0) % MCV (80.0-100.0) fL MCH (25.0-35.0) pg Neutrophils # (1.3-7.7) k/uL Macrocytosis ABG pH 7.47 H (7.35-7.45) ABG pO2 45 L* (83-108) mmHg ABG HCO3 32 H (21-25) mmol/L ABG Total CO2 33 H (19-24) mmol/L ABG O2 Saturation 80.1 L (94-97) % Hemoglobin 7.9 L (13.0-17.5) gm/dL Sodium 146 H (137-145) mmol/L Potassium 3.4 L (3.5-5.1) mmol/L Chloride 113 H (98-107) mmol/L Carbon Dioxide 31 H (22-30) mmol/L BUN 43 H (9-20) mg/dL Glucose 201 H (74-99) mg/dL POC Glucose (mg/dL) 231 H (70-110) mg/dL Calcium 6.9 L (8.4-10.2) mg/dL Alkaline Phosphatase 239 H (38-126) U/L Total Protein 5.4 L (6.3-8.2) g/dL Albumin 2.1 L (3.5-5.0) g/dL Procalcitonin (0.02-0.50) ng/mL Microbiology - Last 24 Hours (Table) 10/16/24 20:30 Gram Stain - Preliminary Sputum Assessment and Plan Time with Patient: Less than 30
--- NOTE | 2024-10-17 13:39 | P.PN ---
Subjective Progress Note Date: 10/17/24 Patient is a 64-year-old male who is being seen in the ICU due to hypovolemic shock and rhabdomyolysis. He is a poor historian due to altered mental status and unresponsiveness. All history is obtained from the chart. He initially presented to the emergency department after being found facedown on the ground with a contusion to his forehead and abrasions to his knee and left toes. She stated that he had been having nausea and vomiting for a day prior to being found down. He was noted to have diarrhea as well. Patient is a daily drinker and consumes about a fifth per day according to the notes he has not drank for the 2 days prior to this admission. He also has a history of type 1 diabetes mellitus. Initial EKG showed sinus tachycardia. Head/cervical spine CT showed no acute intracranial process and no acute fracture or traumatic subluxation of the cervical spine. Initial chest x-ray showed right middle lobe scarring/atelectasis, no acute pulmonary process. He had received 4 L of normal saline. Initial labs showed CK level of 18,113, WBCs 10.7, hemoglobin 12.5, sodium 126, creatinine 3.18 lactic acid 6.9, AST 401, ALT 65. Preliminary blood culture showed gram-positive cocci and patient was started on vancomycin. 10/07/2024. He is maintained on a bicarb drip as well as normal saline. He remains unresponsive to verbal stimulation. He is maintained on CIWA protocol. Labs today: WBCs 5.1, hemoglobin 11.6, sodium 126, potassium 3.8, BUN 53, creatinine 3.12, ammonia <9. Progress note dated October 08, 2024. 64-year-old male seen in room 252. I was notified by the nurse at nighttime, that the patient's blood pressure continued to drop. We bumped up his dose of n orepinephrine, and gave him a liter of fluid. In addition, his respiratory status was marginal, and the blood gas was ordered. The patient is currently on 6 L of oxygen. The patient was admitted on October 06. He is getting saline at 150 cc an hour, and Precedex at 0.4 mcg/kg/h. His norepinephrine is running at 31 mcg/min. There is staphylococci in his blood. I have asked the nurses to add Ativan Dilaudid and Haldol to his regimen, to try to wean him off the dexmedetomidine. White count of 9.1, hemoglobin hematocrit 29, platelet count 88,000. Sodium 131, potassium 3, chloride 92, CO2 32, BUN 50, creatinine 2.34. Glucose is 167. Calcium is 6.3. CK was 8796. AST is 507. ALT is 136. Albumin is 2.2. Blood cultures from the were positive for Streptococcus group A. Chest x-ray shows bilateral effusions, small, with low lung volumes. 10/09/2024. Patient seen as a followup. No acute events overnight. He is currently on 6 L of oxygen. He was on dextrose 5% - 0.9% NaCl, blood sugars have been in the mid to high 200s. He is receiving Kefzol for streptococcal group A bacteremia. Precedex has been turned off. Levophed is 0.3 mcg/kg/min. WBCs 12.3, hemoglobin 9.7, hematocrit 27.7, platelets 48. Sodium 133, potassium 3.7, chloride 105, CO2 19, BUN 42, creatinine 1.62. Glucose 267. Calcium 6.4. CK 3888. AST 323, ALT 78. Albumin 2.2. Today's chest x-ray showed cardiomegaly, pulmonary vascular congestion, and bilateral pleural effusions. 10/10/2024. Patient is being seen as a followup in the ICU. Overnight he went into A-fib with rapid ventricular rate, was started on an amiodarone drip at 1mg/min, and converted back to normal sinus rhythm. His pressures remain in the 100s/40s and pulses are He is currently on 15 L high flow oxygen. He is on no rmal saline at 150 cc/h. He is maintained on Kefzol for streptococcal group A bactermia, today is day 3. Levophed is at 0.11 mcg/kg/min, vasopressin at 0.02 mcg/kg/min. WBCs 16.4, hemoglobin 9.8, hematocrit 29.6, platelets 38. Sodium 138, potassium 3.5, chloride 112, CO2 23, BUN 35, creatinine 1.26, glucose 164. Ionized calcium 4.1. CK 988. AST 154, ALT 36. Cortisol 32. TSH 4.3830. In addition, he removed his NG tube overnight. Today's chest x-ray is unchanged from previous. He remains lethargic and barely responsive to verbal stimulation. 10/11/2024. Patient is seen in the ICU. He underwent arthroscopic lavage of the right knee yesterday evening and returned to the ICU intubated on mechanical ventilation. He is currently on assist-control mode with rate 18, tidal volume 450, FiO2 70%, PEEP 5. ABG shows pH 7.34, pCO2 37, pO2 95. He is maintained on vasopressin 0.02 units/min, Levophed 0.14 mcg/kg/min, normal saline at 100 cc/h, and Kefzol day 4. WBCs 18.1, hemoglobin 8.8, hematocrit 27.6, platelets 52, sodium 140, potassium 3.9, chloride 115, CO2 17, BUN 35, creatinine 1.08, glucose 191, creatinine kinase 215. Calcium 6.5. Magnesium 1.6. He began IV hydrocortisone 50 mg every 6 hours yesterday. Liver ultrasound performed yesterday revealed no acute process. Chest x-ray today is unchanged from previous. 10/12/2024. Patient is evaluated in the ICU. He remains intubated on mechanical ventilation on assist-control mode with rate 18, tidal volume 450, Fi O2 50%, PEEP 5. ABG shows pH 7.42, pCO2 38, pO2 74. His RSBI yesterday was 110 and he was unable to follow commands so he could not be extubated. He is maintained on vasopressin 0.02 units/min, normal saline at 20 cc/h, IV hydrocortisone 50 mg every 6 hours, and Kefzol day 5. WBCs 17.4, hemoglobin 8.2, hematocrit 25.2, platelets 53, sodium 142, potassium 3.7, chloride 116, CO2 23, BUN 39, creatinine 1.18, glucose 258. Ionized calcium 4.4. Magnesium 1.8. Today's chest x-ray is unchanged. Wound culture gram stain of the right knee preliminary report shows rare gram positive cocci. Progress note dated October 13, 2024. 64-year-old male seen in the intensive care unit, room 252. The patient remains on the mechanical ventilator. He is on volume assist-control, rate 18, tidal volume 450, FiO2 50%, PEEP of 5. Blood gases show pO2 72, pCO2 41, and pH is 7.42. The patient is on propofol at 35 mcg/kg/min, saline at 20 cc an hour, and vital high-protein at 60, with goal of 70. Yesterday, he had a brief spontaneous breathing trial, and he did poorly. Today he will again have a s pontaneous breathing trial, of pressure support of 5 and CPAP of 5. He continues on Ancef. White count 18.8, hemoglobin 8.2, hematocrit 25.8, platelet count 78,000. Sodium 144, potassium 4.1, chlorides 117, CO2 26, BUN 47, creatinine 1.18. Glucose is 340. Albumin is 2.1. Previous blood cultures from October 06 show group A streptococci. Chest x-ray shows bibasilar infiltrates. Today's evaluation of 10/14/2024, the patient is being seen for a follow-up. The patient remains intubated on mechanical ventilator. The patient remains encephalopathic. The patient has history of alcoholism and he was treated for alcohol withdrawal/delirium tremens. The patient was also found to be septic with septic right knee arthritis and secondary bacteremia sepsis with MSSA and the patient is postop day #4 following arthroscopic lavage and debridement of the right knee. The rhabdomyolysis has improved. The patient remains on broad- spectrum antibiotics and the patient remains on IV cefazolin. On today's evaluation, the patient remains sedated on propofol running at 30 mcg/kg/min. He is on the mechanical ventilator, assist-control mode with a rate of 18, tidal volume of 450, FiO2 of 30% with a PEEP of 5. The blood gas showed a pH of 7.49 with a pCO2 of 40 and pO2 of 73. The follow-up chest x-ray from this morning shows stable bilateral lower lobe pulmonary infiltrates. No other acute abnormalities have been noted on today's chest x-ray. Noted the patient has been off norepinephrine and off vasopressin. The patient is currently being diuresed with IV Lasix. The fluid balance over the past 24 hours is -1 L. Noted the patient was significantly in the past fluid balance as the patient was being resuscitated with IV fluids regarding his underlying septic shock. The patient remains on hydrocortisone stress dose. The patient remains on vital high-protein at rate of 70 cc an hour. Afebrile. Producing adequate amount of urine output. WBC count is at 16 with a hemoglobin 7.9 and a platelet count of 102. The platelet count has been improving steadily. The patient's BUN is 48 with a creatinine of 1.05. Sodium levels at 148, bicarb is at 30, glucose at 232, BUN is 48 with a creatinine of 1.05. CPK level has down trended. Alkaline phosphatase 555 with an AST of 44 and an ALT of 10. The cultures from the joints/right knee was positive for strep group A and the blood cultures showed a similar bacteria. On 10/15/2024, the patient remains intubated on the mechanical ventilator. This morning, the patient is on propofol at 30 mcg/kg/min. The patient was taken off the propofol yesterday and he was started on Precedex. He was following some simple commands. Nevertheless, he became restless and tachypneic and based on that, overnight, the patient was started back on propofol which is currently running at 30 mcg/kg/min. He remains on the mechanical ventilator, assist- control mode with rate of 22, tidal volume of 500, FiO2 50% with a PEEP of 5. Blood gas showed pH of 7.5 with a pCO2 of 43 and pO2 of 68. The patient is on IV fluids at KVO. He is receiving water 100 cc every 4 hours through the NG. The patient is on vital high-protein at rate of 70 cc an hour. He remains on IV Lasix 20 mg every 12 hours. The fluid balance over the past 24 hours is -1 L. The follow-up chest x-ray from today shows no significant interval change. The patient continues to have some stable bibasilar pulmonary filtrates and small effusions. Hemodynamically stable on no pressors. No other significant events overnight. He remains on IV cefazolin regarding his MSSA septicemia and septic arthritis. Remains on Levemir insulin 15 units twice daily and NovoLog sliding scale coverage. No agitation. The patient's white cell count is 15.4, hemoglobin 7.9, platelet is 118, sodium is at 151 with a potassium level of 3.2, BUN is 47 with a creatinine of 0.9.. 10/16/2024, the patient is being seen for a follow-up. The patient remains extubated, calm and comfortable. He is currently on 6 L of oxygen by nasal cannula. Overnight, the patient was briefly placed on a BiPAP pressure of 12/5 with an FiO2 40% for some increased shortness of breath and the patient is currently back on nasal cannula for now. Chest x-ray shows infiltrates in the lung bases bilaterally. Pneumonia is being considered. The patient accordingly was switched to a combination of cefepime and vancomycin. Meanwhile, the patient remains on D5 water at a rate of 75 cc an hour. Overnight, the patient was having episodes of hypoglycemia with a blood sugar as low as 49. Based on that, the Levemir insulin was discontinued. He also had purulence of atrial fibrillation with rapid ventricular response with a heart rate as high as 150. Currently is back in the normal sinus rhythm. His blood work shows a white cell count of 16, hemoglobin of 7.8 and a platelet count of 126. Sodium levels at 149, potassium is at 3.4, BUN is 37 with a creatinine of 0.8. His procalcitonin level is at 1.08. He was complaining of back pain. Based on his recent history of septic knee arthritis and staph bacteremia, MRI of the spine was also ordered by the orthopedic surgery to rule out any underlying epidural abscess. This will be done within next 24 to 48 hours once the patient is medically more stable. On 10/17/2024, the patient is being seen for a follow-up. The patient was extub ated on 10/15/2024. The patient was on 6 L of O2 nasal cannula. Earlier this morning, the patient became progressively more short of breath and hypoxic and placed on that the patient was placed on a BiPAP pressure of 14/8 with an FiO2 of 100%. His blood gases prior to that showed a pH of 7.47 with a pCO2 44 and pO2 of 45. A repeat chest x-ray from this morning shows evidence of increased opacities in the lung base bilaterally along with possibility of pleural effusions. Based on that, performed a bedside ultrasound and the patient was found to have a 6 cm pocket of fluid on the right and 4.9 cm on the left. I performed a bedside thoracentesis on the patient and the right-sided pleural effusion was evacuated without any complications. Total amount of fluid removed was 410 cc. The fluid will be sent for analysis. Meanwhile, the patient is kept on BiPAP. He remains on broad-spectrum antibiotics and antibiotic coverage includes a combination of cefepime and vancomycin. The patient also encountered episodes of atrial fibrillation. The patient was in rapid ventricular response and based on that the patient was given amiodarone bolus and started on amiodarone protocol and his current rhythm is back into normal sinus rhythm. He remains on D5 water with a sodium level of 146 and a potassium level of 3.4, BUN is 43 with a creatinine of 1. LFTs are normal. The white cell count is 11.8 with hemoglobin 7.5 with a platelet count of 173. He is profoundly weak. He has failed a swallow evaluation the patient remains NPO. Objective - Vital Signs Vital signs: Vital Signs Temp 97.8 F 10/17/24 09:00 Pulse 75 10/17/24 09:00 Resp 22 10/17/24 09:00 BP 118/67 10/17/24 09:00 Pulse Ox 100 10/17/24 09:00 FiO2 100 10/17/24 09:00 Intake & Output 10/16/24 10/17/24 10/17/24 18:59 06:59 18:59 Intake Total 858 858 234 Output Total 1135 875 200 Balance -277 -17 34 Weight 88.4 kg 89.6 kg Intake: IV 858 858 234 Dextrose 5% in Water 1, 825 825 225 000 ml @ 75 mls/hr IV . [id number] ONE Rx#:[id number] Pressure Bag 33 33 9 Output: Urine 1135 875 200 Other: Voiding Method Indwelling Catheter Indwelling Catheter ABP, PAP, CO, CI - Last Documented Arterial Blood Pressure 115/45 - Exam The patient is awake and alert and extubated and the patient is currently on BiPAP at a pressure of 14/8 with an FiO2 of 100% FiO2 is being gradually weaned off Head exam was generally normal. There was no scleral icterus or corneal arcus. Mucous membranes were moist. Neck supple. Full range of motion. No adenopathy thyromegaly or neck vein distention. Cardiovascular examination reveals regular rhythm rate. S1-S2 normal. No S3 or S4. No discernible murmur noted. Lungs reveal mild scattered rhonchi. No wheezes or crackles. Breath sounds equal. Breath sounds are diminished in lung base bilaterally, improved following the right-sided thoracentesis Abdomen soft, without bowel sounds. No masses or tenderness. Extremities are intact. No cyanosis clubbing or edema. Right knee surgical wound site is dry clean and intact. Right knee is slightly swollen. No erythema. No tenderness. Skin reveals multiple abrasions and bruises. Neurologically, the patient is awake and alert and the patient does not have any focal neurological deficit. Cranial nerves are essentially intact. Profound generalized weakness in all 4 extremities. No focal neurological deficits. - Labs CBC & Chem 7: 10/17/24 03:50 10/17/24 03:50 Labs: Abnormal Lab Results - Last 24 Hours (Table) 10/16/24 10/16/24 10/16/24 Range/Units 04:30 12:03 16:10 WBC (3.8-10.6) k/uL RBC (4.30-5.90) m/uL Hgb (13.0-17.5) gm/dL Hct (39.0-53.0) % MCV (80.0-100.0) fL MCH (25.0-35.0) pg Neutrophils # (1.3-7.7) k/uL Macrocytosis ABG pH (7.35-7.45) ABG pO2 (83-108) mmHg ABG HCO3 (21-25) mmol/L ABG Total CO2 (19-24) mmol/L ABG O2 Saturation (94-97) % Hemoglobin (13.0-17.5) gm/dL Sodium (137-145) mmol/L Potassium (3.5-5.1) mmol/L Chloride (98-107) mmol/L Carbon Dioxide (22-30) mmol/L BUN (9-20) mg/dL Glucose (74-99) mg/dL POC Glucose (mg/dL) 163 H 216 H (70-110) mg/dL Calcium (8.4-10.2) mg/dL Alkaline Phosphatase (38-126) U/L Total Protein (6.3-8.2) g/dL Albumin (3.5-5.0) g/dL Procalcitonin 1.08 H (0.02-0.50) ng/mL 10/16/24 10/17/24 10/17/24 Range/Units 21:34 03:39 03:50 WBC 11.8 H (3.8-10.6) k/uL RBC 2.07 L (4.30-5.90) m/uL Hgb 7.5 L (13.0-17.5) gm/dL Hct 23.5 L (39.0-53.0) % MCV 113.5 H (80.0-100.0) fL MCH 36.0 H (25.0-35.0) pg Neutrophils # 10.3 H (1.3-7.7) k/uL Macrocytosis Marked A ABG pH (7.35-7.45) ABG pO2 (83-108) mmHg ABG HCO3 (21-25) mmol/L ABG Total CO2 (19-24) mmol/L ABG O2 Saturation (94-97) % Hemoglobin (13.0-17.5) gm/dL Sodium (137-145) mmol/L Potassium (3.5-5.1) mmol/L Chloride (98-107) mmol/L Carbon Dioxide (22-30) mmol/L BUN (9-20) mg/dL Glucose (74-99) mg/dL POC Glucose (mg/dL) 304 H 231 H (70-110) mg/dL Calcium (8.4-10.2) mg/dL Alkaline Phosphatase (38-126) U/L Total Protein (6.3-8.2) g/dL Albumin (3.5-5.0) g/dL Procalcitonin (0.02-0.50) ng/mL 10/17/24 10/17/24 10/17/24 Range/Units 03:50 05:43 06:04 WBC (3.8-10.6) k/uL RBC (4.30-5.90) m/uL Hgb (13.0-17.5) gm/dL Hct (39.0-53.0) % MCV (80.0-100.0) fL MCH (25.0-35.0) pg Neutrophils # (1.3-7.7) k/uL Macrocytosis ABG pH 7.47 H (7.35-7.45) ABG pO2 45 L* (83-108) mmHg ABG HCO3 32 H (21-25) mmol/L ABG Total CO2 33 H (19-24) mmol/L ABG O2 Saturation 80.1 L (94-97) % Hemoglobin 7.9 L (13.0-17.5) gm/dL Sodium 146 H (137-145) mmol/L Potassium 3.4 L (3.5-5.1) mmol/L Chloride 113 H (98-107) mmol/L Carbon Dioxide 31 H (22-30) mmol/L BUN 43 H (9-20) mg/dL Glucose 201 H (74-99) mg/dL POC Glucose (mg/dL) 231 H (70-110) mg/dL Calcium 6.9 L (8.4-10.2) mg/dL Alkaline Phosphatase 239 H (38-126) U/L Total Protein 5.4 L (6.3-8.2) g/dL Albumin 2.1 L (3.5-5.0) g/dL Procalcitonin (0.02-0.50) ng/mL Microbiology - Last 24 Hours (Table) 10/16/24 20:30 Gram Stain - Preliminary Sputum Assessment and Plan Plan: Encephalopathy, multifactorial. The patient had delirium tremens and subsequently patient was treated for septic shock. The patient's encephalopathy is improved and the patient is awake and alert and communicating. No focal neurological deficit. Acute hypoxic respiratory failure, the patient has been intubated on 10/10/2024 following his knee surgery and the patient remains intubated on the mechanical ventilator, chest x-ray is unchanged and the patient continues to have atelectatic changes and small infiltrates in the lung base bilaterally. The patient was extubated on 10/15/2024 and the patient was on 6 L of O2 nasal cannula and earliest morning the patient became progressively more hypoxic and short of breath and the patient was placed on a BiPAP pressure of 14/8 and FiO2 is being weaned off Bilateral lower lobe pulmonary filtrates, rule out pneumonia the patient remains on a combination of cefepime and vancomycin Bilateral pleural effusion status postthoracentesis in the right with evacuation of 400 cc of pleural fluid Septic shock, currently off pressors Septic arthritis of the right knee secondary to strep group A in addition to a positive blood cultures with the same microorganism, currently on IV cefazolin Back pain, rule out epidural abscess. MRI of the spine will be done at a later stage once the patient is medically more stable. Chronic alcohol abuse, with acute alcohol withdrawal syndrome, recovered Postop day # 7 BiPAP and gradual wean down the FiO2. The plan is to keep the patient off the BiPAP, status post arthroscopy, with arthroscopic lavage and debridement of the right knee, partial medial meniscectomy and medial femoral condyle and medial tibial plateau chondroplasty. Status post fall, with rhabdomyolysis, secondary to immobility. Acute kidney injury, with acute tubular necrosis, secondary to sepsis, and rhabdomyolysis, recovered Lactic acidosis, resolved. Hyponatremia, currently on D5 water History of coronary artery disease, with previous catheterization and stent placement. CHF with mild impairment LV function with an ejection fraction of 45% Diabetes mellitus type I with episodes of hypoglycemia Gastroesophageal reflux disease. Hyperlipidemia. Hypertension. History of myocardial infarction. History of osteoarthritis. Plan: Keep the patient on BiPAP and gradual wean down the FiO2 to maintain saturation above 90% Right lung thoracentesis been completed. May possibly do left-sided thoracentesis tomorrow. Keep the patient off anticoagulation for now Continue antibiotic coverage with a combination of cefepime vancomycin Continue amiodarone per protocol and consult cardiology regarding his paroxysmal atrial fibrillation. No anticoagulants for now. Incentive spirometer Continue D5 water and monitor the electrolytes Patient failed a swallow evaluation and the patient is currently n.p.o. The patient is currently off pressors Monitor fever pattern Change Levemir insulin to 5 units units nightly along with Scale insulin coverage and watch for any signs of hypoglycemia MRI of the thoracic and lumbosacral spine was the patient is medically stable IV Protonix Monitor fluid balance PT evaluation Will continue to follow. This is a critical care evaluation that was done more than 30 minutes.
--- NOTE | 2024-10-17 13:40 | P.PCN ---
Date of Procedure: 10/17/24 Preoperative Diagnosis: Pleural effusion, right-sided Postoperative Diagnosis: Pleural effusion, right-sided Procedure(s) Performed: Right thoracentesis Anesthesia: local Surgeon: Gilmar Omer Estimated Blood Loss (ml): 0 Pathology: other Condition: critical Disposition: ICU Operative Findings: A time out was performed and the chest x-ray was reviewed, the appropriate side was confirmed and marked. My hands were washed immediately prior to the procedure. I wore a surgical cap, mask with protective eyewear, sterile gown and sterile gloves throughout the procedure. The patient was prepped and draped in a sterile manner using chlorhexidine scrub after the appropriate level was percussed and confirmed by ultrasound. 1% lidocaine was used to anesthesize the skin, subcutaneous tissue, superior aspect of the rib periosteum and parietal pleura. A finder needle was then introduced over the superior aspect of the rib to locate the pleural fluid; 2colored fluid was aspirated at a depth of approximately 2 cm. A 10-blade scalpel was used to charles the skin at the insertion site. The [id number] needle was then introduced through the skin incision into the pleural space using negative aspiration pressure and the red colometric indicator to confirm appropriate positioning of the needle. The thoracentesis catheter was then threaded without difficulty. 400 ml of turbid colored fluid was removed without difficulty. The catheter was then removed. No immediate complications were noted during the procedure. A post-procedure chest x-ray is pending at the time of this note. The fluid will be sent for studies. Estimated blood loss is 0cc
--- NOTE | 2024-10-17 14:29 | XR ---
EXAMINATION TYPE: XR chest 1V DATE OF EXAM: 10/17/2024 2:19 PM COMPARISON: Previous chest radiograph dated 10/09/2024. CLINICAL INDICATION: Male, 64 years old with history of post throacentesis; [facility] TECHNIQUE: XR chest 1V Frontal view of the chest. FINDINGS: Low lung volumes. Cardiac silhouette otherwise stable. Increasing moderate-sized left pleural effusion. Small right pleural effusion. Patchy lower lobe cons olidative changes could reflect atelectasis and/or developing pneumonia. No pneumothorax. IMPRESSION: Worsening left-sided pleural effusion compared to the most recent prior study. [facility], , 10/17/2024 2:27 PM
[2024-10-17 14:41] LABS: Magnesium 1.9 mg/dL (1.6-2.3); Potassium 3.8 mmol/L (3.5-5.1)
--- NOTE | 2024-10-17 14:44 | P.PN ---
Subjective Progress Note Date: 10/17/24 Principal diagnosis: Reason for follow-up is Streptococcus agalactiae bacteremia Patient is a 64-year-old male past medical history significant for diabetes mellitus hypertension hyperlipidemia ME osteoarthritis coronary disease patient was brought into the hospital after apparently the patient was found to be facedown on the ground with contusion to his forehead and abrasion to his knee and some bloody toes, patient did have a fever subsequently blood cultures came back positive with Streptococcus agalactiae prompting this consultation. Patient noticed to have swelling of the right knee aspirate was purulent subsequently the patient did have a right knee washout completed by orthopedics on 10/10/2024. On today's evaluation that is 10/17/2024,the patient denies any fever or any chills, patient is breathing comfortably however is requiring BiPAP off-and-on d enies any chest pain no worsening cough is reported no vomiting or diarrhea. Patient white count is down to 11.8, creatinine 1.06 sputum cultures currently pending patient did have a right-sided thoracocentesis done by pulmonary Objective - Vital Signs Vital signs: Vital Signs Temp 99.3 F 10/17/24 12:00 Pulse 81 10/17/24 14:00 Resp 18 10/17/24 14:00 BP 116/60 10/17/24 14:00 Pulse Ox 100 10/17/24 14:00 FiO2 100 10/17/24 14:00 Intake & Output 10/16/24 10/17/24 10/17/24 18:59 06:59 18:59 Intake Total 858 858 424 Output Total 1135 875 545 [facility] -277 -17 -121 Weight 88.4 kg 89.6 kg Intake: IV 858 858 424 Dextrose 5% in Water 1, 100 000 ml @ 50 mls/hr IV . Q20H [facility] Rx#:[id number] Dextrose 5% in Water 1, 825 825 300 000 ml @ 75 mls/hr IV . [id number] [facility] Rx#:[id number] Pressure Bag 33 33 24 Output: Urine 1135 875 545 Other: Voiding Method Indwelling Catheter Indwelling Catheter Indwelling Catheter ABP, PAP, CO, CI - Last Documented Arterial Blood Pressure 107/41 - Exam GENERAL DESCRIPTION: Middle-age male lying in bed in no distress RESPIRATORY SYSTEM: Unlabored breathing , decreased breath sounds at bases HEART: S1 S2 regular rate and rhythm , ABDOMEN: Soft , no tenderness EXTREMITIES: Swelling to the lower extremity and right knee but no redness - Labs CBC & Chem 7: 10/17/24 03:50 10/17/24 14:15 Labs: Abnormal Lab Results - Last 24 Hours (Table) 10/16/24 10/16/24 10/16/24 Range/Units 04:30 16:10 21:34 WBC (3.8-10.6) k/uL RBC (4.30-5.90) m/uL Hgb (13.0-17.5) gm/dL Hct (39.0-53.0) % MCV (80.0-100.0) fL MCH (25.0-35.0) pg Neutrophils # (1.3-7.7) k/uL Macrocytosis ABG pH (7.35-7.45) ABG pO2 (83-108) mmHg ABG HCO3 (21-25) mmol/L ABG Total CO2 (19-24) mmol/L ABG O2 Saturation (94-97) % Hemoglobin (13.0-17.5) gm/dL Sodium (137-145) mmol/L Potassium (3.5-5.1) mmol/L Chloride (98-107) mmol/L Carbon Dioxide (22-30) mmol/L BUN (9-20) mg/dL Glucose (74-99) mg/dL POC Glucose (mg/dL) 216 H 304 H (70-110) mg/dL Calcium (8.4-10.2) mg/dL Alkaline Phosphatase (38-126) U/L Total Protein (6.3-8.2) g/dL Albumin (3.5-5.0) g/dL Procalcitonin 1.08 H (0.02-0.50) ng/mL 10/17/24 10/17/24 10/17/24 Range/Units 03:39 03:50 03:50 WBC 11.8 H (3.8-10.6) k/uL RBC 2.07 L (4.30-5.90) m/uL Hgb 7.5 L (13.0-17.5) gm/dL Hct 23.5 L (39.0-53.0) % MCV 113.5 H (80.0-100.0) fL MCH 36.0 H (25.0-35.0) pg Neutrophils # 10.3 H (1.3-7.7) k/uL Macrocytosis Marked A ABG pH (7.35-7.45) ABG pO2 (83-108) mmHg ABG HCO3 (21-25) mmol/L ABG Total CO2 (19-24) mmol/L ABG O2 Saturation (94-97) % Hemoglobin (13.0-17.5) gm/dL Sodium 146 H (137-145) mmol/L Potassium 3.4 L (3.5-5.1) mmol/L Chloride 113 H (98-107) mmol/L Carbon Dioxide 31 H (22-30) mmol/L BUN 43 H (9-20) mg/dL Glucose 201 H (74-99) mg/dL POC Glucose (mg/dL) 231 H (70-110) mg/dL Calcium 6.9 L (8.4-10.2) mg/dL Alkaline Phosphatase 239 H (38-126) U/L Total Protein 5.4 L (6.3-8.2) g/dL Albumin 2.1 L (3.5-5.0) g/dL Procalcitonin (0.02-0.50) ng/mL 10/17/24 10/17/24 10/17/24 Range/Units 05:43 06:04 12:23 WBC (3.8-10.6) k/uL RBC (4.30-5.90) m/uL Hgb (13.0-17.5) gm/dL Hct (39.0-53.0) % MCV (80.0-100.0) fL MCH (25.0-35.0) pg Neutrophils # (1.3-7.7) k/uL Macrocytosis ABG pH 7.47 H (7.35-7.45) ABG pO2 45 L* (83-108) mmHg ABG HCO3 32 H (21-25) mmol/L ABG Total CO2 33 H (19-24) mmol/L ABG O2 Saturation 80.1 L (94-97) % Hemoglobin 7.9 L (13.0-17.5) gm/dL Sodium (137-145) mmol/L Potassium (3.5-5.1) mmol/L Chloride (98-107) mmol/L Carbon Dioxide (22-30) mmol/L BUN (9-20) mg/dL Glucose (74-99) mg/dL POC Glucose (mg/dL) 231 H 264 H (70-110) mg/dL Calcium (8.4-10.2) mg/dL Alkaline Phosphatase (38-126) U/L Total Protein (6.3-8.2) g/dL Albumin (3.5-5.0) g/dL Procalcitonin (0.02-0.50) ng/mL Microbiology - Last 24 Hours (Table) 10/16/24 20:30 Gram Stain - Preliminary Sputum Assessment and Plan (1) Sepsis Current Visit: Yes Status: Acute Code(s): A41.9 - SEPSIS, UNSPECIFIED ORGANISM SNOMED Code(s): 87650271 (2) Streptococcal bacteremia Current Visit: Yes Status: Acute Code(s): R78.81 - BACTEREMIA; B95.5 - UNSP STREPTOCOCCUS THE CAUSE OF DISEASES [facility] SNOMED Code(s): 435697317081 Plan: 1patient presented to the hospital with sepsis in this patient who did have fever tachycardia elevated white count and now with evidence of streptococcal bacteremia which is usually of skin and soft tissue origin 2-patient noticed to have right knee effusion has been evaluated by orthopedics and is status post aspiration with purulent drainage subsequently did have right knee washout by orthopedic cultures are pending may need further workup including MRI of the spine when stable. Ortho is following the patient closely 3patient right knee fluid culture also came back positive with group A strep 4-patient did have a new fever and concern for possible pneumonia also have right-sided effusion status post thoracocentesis cultures will be followed 5sputum culture currently pending 6patient will be treated with cefepime and vancomycin while waiting for the c ulture to finalize Dictation was produced using [employer] dictation software. please excuse any grammatical, word or spelling errors. Time with Patient: Less than 30
[2024-10-17 17:12] LABS: Glucose,Whole Blood 261 mg/dL (70-110)
[2024-10-17] MEDS: POTASSIUM CHLORIDE 20 MEQ in WATER FOR INJECTION 1 100ML.BAG IVPB STA (18:06)
[2024-10-17 20:00] LABS: Glucose,Whole Blood 248 mg/dL (70-110)
[2024-10-18] MEDS: VANCOMYCIN TROUGH DUE 1 EACH MISC MISCELLANE ONE (04:42)
[2024-10-18 04:48] LABS: HCT 24.4 % (39.0-53.0); HGB 7.8 gm/dL (13.0-17.5); Hypochromasia Marked; MCH 37.1 pg (25.0-35.0); MCHC 32.1 g/dL (31.0-37.0); Macrocytosis Marked; Mean Platelet Volume 10.3; Platelet Count 202 k/uL (150-450); RBC 2.11 m/uL (4.30-5.90); RDW 14.1 % (11.5-15.5); WBC 10.4 k/uL (3.8-10.6)
[2024-10-18 04:50] LABS: African American GFR (CKD) 64 (>60 ml/min/1.73 sqM); Anion Gap 1 mmol/L; Blood Urea Nitrogen 43 mg/dL (9-20); Carbon Dioxide 31 mmol/L (22-30); Chloride 114 mmol/L (98-107); Glucose 119 mg/dL (74-99); Non-African American GFR(CKD) 55 (>60 ml/min/1.73 sqM); Potassium 3.9 mmol/L (3.5-5.1); Sodium 146 mmol/L (137-145)
[2024-10-18 04:54] LABS: MCV 115.6 fL (80.0-100.0)
[2024-10-18] MEDS: POTASSIUM CHLORIDE 10 MEQ in WATER FOR INJECTION 1 100ML.BAG IVPB SCH (05:11)
[2024-10-18 06:19] LABS: Glucose,Whole Blood 149 mg/dL (70-110)
[2024-10-18] MEDS: CHOLECALCIFEROL 25 MCG (1000 IU) TABLET PO SCH (07:48)
--- NOTE | 2024-10-18 07:55 | XR ---
EXAMINATION TYPE: XR chest 1V portable DATE OF EXAM: 10/18/2024 COMPARISON: NONE CLINICAL INDICATION: Male, 64 years old with history of worsening left pleural effusion; , TECHNIQUE: XR chest 1V portable views of the chest. FINDINGS: Limited inspiration. Postsurgical changes left cervical spine. Degenerative changes of the spine. Hea rt size normal. No overt failure. There is bilateral consolidation and small pleural effusion. IMPRESSION: 1. Stable bilateral lower lobe infiltrate and small pleural effusion. [facility], , 10/18/2024 7:53 AM
[2024-10-18 08:31] LABS: African American GFR (CKD) 66 (>60 ml/min/1.73 sqM); Magnesium 1.8 mg/dL (1.6-2.3); Non-African American GFR(CKD) 57 (>60 ml/min/1.73 sqM)
--- NOTE | 2024-10-18 08:45 | P.PN ---
Subjective patient is seen for follow-up for acute kidney injury. Renal function has improved. Patient is maintained on BiPAP Urine output at 100 - 200 mL an hour. Serum creatinine increased to 1.3 Maintained on D5W at 75 mL an hour for hypernatremia Objective - Vital Signs Vital signs: Vital Signs Temp 98.2 F 10/18/24 08:00 Pulse 75 10/18/24 08:00 Resp 20 10/18/24 08:00 BP 107/61 10/18/24 07:00 Pulse Ox 100 10/18/24 08:00 FiO2 80 10/18/24 08:00 Intake & Output 10/17/24 10/18/24 10/18/24 18:59 06:59 18:59 Intake Total 970.814 483 2891.283 Output Total 725 525 115 Balance 245.727 183 986.283 Weight 92.9 kg Intake: IV 736 708 156 Dextrose 5% in Water 1, 300 450 150 000 ml @ 50 mls/hr IV . Q20H [facility] Rx#:[id number] Dextrose 5% in Water 1, 300 225 000 ml @ 75 mls/hr IV . [id number] [facility] Rx#:[id number] Potassium Chloride 20 meq 100 In Water For Injection 1 100ml.bag @ 50 mls/hr IVPB ONCE [facility] Rx#: [id number] Pressure Bag 36 33 6 Intake, IV Titration 234.727 945.283 Amount Amiodarone 450 mg In 234.727 245.283 Dextrose 5% in Water 250 ml @ 0.5 MG/MIN 16.667 mls/hr IV .Q15H [facility] Rx#: [id number] Cefepime 2 gm In Sodium 100 Chloride 0.9% 100 ml @ 25 mls/hr IVPB Q8HR [facility] Rx# :[id number] Potassium Chloride 20 meq 100 In Water For Injection 1 100ml.bag @ 50 mls/hr IVPB Q2H [facility] Rx#: [id number] Vancomycin 1,500 mg In 500 Sodium Chloride 0.9% 500 ml 500 ml @ 167 mls/hr IVPB Q12HR [facility] Rx#: [id number] Output: Urine 725 525 115 Other: Voiding Method Indwelling Catheter Indwelling Catheter Indwelling Catheter ABP, PAP, CO, CI - Last Documented Arterial Blood Pressure 123/46 - Exam patient is awake and following commands. Examination of the heart S1 and S2 Examination of the lungs bilateral breath sounds are heard Abdomen is soft nontender Examination of lower extremities shows edema 1+. Discoloration of toes noted in left foot. - Labs CBC & Chem 7: 10/18/24 04:18 10/18/24 08:05 Labs: Abnormal Lab Results - Last 24 Hours (Table) 10/17/24 10/17/24 10/17/24 Range/Units 12:23 17:10 19:59 RBC (4.30-5.90) m/uL Hgb (13.0-17.5) gm/dL Hct (39.0-53.0) % MCV (80.0-100.0) fL MCH (25.0-35.0) pg Macrocytosis Sodium (137-145) mmol/L Chloride (98-107) mmol/L Carbon Dioxide (22-30) mmol/L BUN (9-20) mg/dL Creatinine (0.66-1.25) mg/dL Glucose (74-99) mg/dL POC Glucose (mg/dL) 264 H 261 H 248 H (70-110) mg/dL Calcium (8.4-10.2) mg/dL 10/18/24 10/18/24 10/18/24 Range/Units 04:18 04:18 06:19 RBC 2.11 L (4.30-5.90) m/uL Hgb 7.8 L (13.0-17.5) gm/dL Hct 24.4 L (39.0-53.0) % MCV 115.6 H (80.0-100.0) fL MCH 37.1 H (25.0-35.0) pg Macrocytosis Marked A Sodium 146 H (137-145) mmol/L Chloride 114 H (98-107) mmol/L Carbon Dioxide 31 H (22-30) mmol/L BUN 43 H (9-20) mg/dL Creatinine 1.37 H (0.66-1.25) mg/dL Glucose 119 H (74-99) mg/dL POC Glucose (mg/dL) 149 H (70-110) mg/dL Calcium 7.0 L (8.4-10.2) mg/dL 10/18/24 Range/Units 08:05 RBC (4.30-5.90) m/uL Hgb (13.0-17.5) gm/dL Hct (39.0-53.0) % MCV (80.0-100.0) fL MCH (25.0-35.0) pg Macrocytosis Sodium (137-145) mmol/L Chloride (98-107) mmol/L Carbon Dioxide (22-30) mmol/L BUN (9-20) mg/dL Creatinine 1.34 H (0.66-1.25) mg/dL Glucose (74-99) mg/dL POC Glucose (mg/dL) (70-110) mg/dL Calcium (8.4-10.2) mg/dL Microbiology - Last 24 Hours (Table) 10/16/24 12:47 Nasal Screen MRSA/MSSA - Final Nasal Swab 10/16/24 20:30 Gram Stain - Preliminary Sputum Assessment and Plan Assessment: 1. Acute kidney injury secondary to ATN secondary to septic shock and rhab domyolysis. Creatinine 3.18 on admission and is improved to 0.9 -1.0. It is at 1.3 today. Baseline creatinine near 1. No hydronephrosis noted on kidney ultrasound. 2. Rhabdomyolysis secondary to immobility. CK levels trending down. 3. Strep bacteremia on antibiotics. 4. Anion gap metabolic acidosis secondary to acute kidney injury and lactic acidosis. Now due to IV fluids. Status post bicarb drip. 5. Hyponatremia secondary to hypovolemia as well as acute kidney injury. Better. 6. Hypomagnesemia from poor intake and alcohol abuse. Replaced. 7. History of alcohol abuse. 8. Hypocalcemia, replaced. 25-hydroxy vitamin D was 26.5, started on supplementation. PTH appropriately increased. 9. Hypokalemia from poor intake. Replaced. Better. 10. A-fib with RVR status post amiodarone drip. 11. Volume overload with significant scrotal edema Plan: continue D5W continue vitamin D supplementation, increased dose
[2024-10-18 09:33] LABS: Appearance,BF Slightly Cloudy (Clear)
[2024-10-18] MEDS ORDERED: HEPARIN SODIUM 1,000 UN/ML (10ML VL) IV PRN (09:36)
[2024-10-18] MEDS ORDERED: RX INFO: IV CONTRAST WAS GIVEN 1 EACH MISC MISCELLANE PRN (09:38)
--- NOTE | 2024-10-18 09:53 | P.PN ---
Subjective Progress Note Date: 10/18/24 PROGRESS NOTE The patient is a 64-year-old male with known history of CAD status post stenting of the left circumflex with in-stent restenosis in 2021, treated medically who presented with change in mental status, unresponsiveness, fall most likely related to chronic alcoholism. He was intubated and subsequently extubated. He had episodes of paroxysmal atrial fibrillation and has maintained sinus mech anism until yesterday when he went in atrial fibrillation. He is back in sinus mechanism at this time. Hemodynamically stable. On no vasopressors. He is on the BiPAP. He is blood pressure is stable. He had a recent septic knee arthritis with staph bacteremia. His echocardiogram on presentation showed an ejection fraction of 45 to 50% with mild mitral and tricuspid regurgitation. His right-sided pressure was 38 mmHg. October 18: The patient continues to be on BiPAP. He underwent thoracentesis of the right side yesterday. He continues to be dyspneic on nasal cannula. He continues to be in sinus mechanism on IV amiodarone. There is no symptoms of chest comfort. He is awake and following command. He denies any nausea or vomiting. Hemodynamically he is stable on no vasopressors. Still not able to take p.o. Medications: IV amiodarone, insulin, vancomycin. PHYSICAL EXAMINATION: Blood pressure 123/50 heart rate 75, on BiPAP, awake and alert LUNGS: Clear to auscultation anteriorly with few crackles at the right base HEART: Regular rate and rhythm, S1, S2. No S3. Systolic ejection murmur ABDOMEN: Soft, nontender, no organomegaly EXTREMETIES: +1 edema LAB: Hemoglobin 7.8, platelets count 202, Potassium 3.9, BUN 43, creatinine 1.37. IMPRESSION: 1. Paroxysmal atrial fibrillation, back in sinus mechanism 2. Encephalopathy on presentation, probably combination of septic shock and alcoholism 3. Respiratory failure, continues to be on BiPAP with tachypnea, rule out i nfiltrate 4. Septic arthritis 5. History of CAD, stable 6. Thrombocytopenia, improving 7. Mild cardiomyopathy 8. Chronic alcohol intake 9. History of diabetes PLAN: 1. Continue IV amiodarone for now 2. Start IV heparin 3. CT scan of the chest 4. Depending on when he starts to take p.o. starts beta-blockers 5. Follow renal functions and hemoglobin 6. Nutrition status needs to be addressed depending on his ability to swallow Objective - Vital Signs Vital signs: Vital Signs Temp 98.2 F 10/18/24 08:00 Pulse 77 10/18/24 09:03 Resp 16 10/18/24 09:03 BP 107/61 10/18/24 07:00 Pulse Ox 100 10/18/24 08:00 FiO2 80 10/18/24 08:53 Intake & Output 10/17/24 10/18/24 10/18/24 18:59 06:59 18:59 Intake Total 970.443 846 7690.283 Output Total 725 525 115 Balance 245.727 183 986.283 Weight 92.9 kg Intake: IV 736 708 156 Dextrose 5% in Water 1, 300 450 150 000 ml @ 50 mls/hr IV . Q20H [facility] Rx#:[id number] Dextrose 5% in Water 1, 300 225 000 ml @ 75 mls/hr IV . [id number] [facility] Rx#:[id number] Potassium Chloride 20 meq 100 In Water For Injection 1 100ml.bag @ 50 mls/hr IVPB ONCE STA Rx#: [id number] Pressure Bag 36 33 6 Intake, IV Titration 234.727 945.283 Amount Amiodarone 450 mg In 234.727 245.283 Dextrose 5% in Water 250 ml @ 0.5 MG/MIN 16.667 mls/hr IV .Q15H [facility] Rx#: [id number] Cefepime 2 gm In Sodium 100 Chloride 0.9% 100 ml @ 25 mls/hr IVPB Q8HR [facility] Rx# :[id number] Potassium Chloride 20 meq 100 In Water For Injection 1 100ml.bag @ 50 mls/hr IVPB Q2H [facility] Rx#: [id number] Vancomycin 1,500 mg In 500 Sodium Chloride 0.9% 500 ml 500 ml @ 167 mls/hr IVPB Q12HR [facility] Rx#: [id number] Output: Urine 725 525 115 Other: Voiding Method Indwelling Catheter Indwelling Catheter Indwelling Catheter ABP, PAP, CO, CI - Last Documented Arterial Blood Pressure 123/46 - Labs CBC & Chem 7: 10/18/24 04:18 10/18/24 08:05 Labs: Abnormal Lab Results - Last 24 Hours (Table) 10/17/24 10/17/24 10/17/24 Range/Units 12:23 13:07 17:10 RBC (4.30-5.90) m/uL Hgb (13.0-17.5) gm/dL Hct (39.0-53.0) % MCV (80.0-100.0) fL MCH (25.0-35.0) pg Macrocytosis Sodium (137-145) mmol/L Chloride (98-107) mmol/L Carbon Dioxide (22-30) mmol/L BUN (9-20) mg/dL Creatinine (0.66-1.25) mg/dL Glucose (74-99) mg/dL POC Glucose (mg/dL) 264 H 261 H (70-110) mg/dL Calcium (8.4-10.2) mg/dL Fluid Appearance Slightly Cloudy A (Clear) 10/17/24 10/18/24 10/18/24 Range/Units 19:59 04:18 04:18 RBC 2.11 L (4.30-5.90) m/uL Hgb 7.8 L (13.0-17.5) gm/dL Hct 24.4 L (39.0-53.0) % MCV 115.6 H (80.0-100.0) fL MCH 37.1 H (25.0-35.0) pg Macrocytosis Marked A Sodium 146 H (137-145) mmol/L Chloride 114 H (98-107) mmol/L Carbon Dioxide 31 H (22-30) mmol/L BUN 43 H (9-20) mg/dL Creatinine 1.37 H (0.66-1.25) mg/dL Glucose 119 H (74-99) mg/dL POC Glucose (mg/dL) 248 H (70-110) mg/dL Calcium 7.0 L (8.4-10.2) mg/dL Fluid Appearance (Clear) 10/18/24 10/18/24 Range/Units 06:19 08:05 RBC (4.30-5.90) m/uL Hgb (13.0-17.5) gm/dL Hct (39.0-53.0) % MCV (80.0-100.0) fL MCH (25.0-35.0) pg Macrocytosis Sodium (137-145) mmol/L Chloride (98-107) mmol/L Carbon Dioxide (22-30) mmol/L BUN (9-20) mg/dL Creatinine 1.34 H (0.66-1.25) mg/dL Glucose (74-99) mg/dL POC Glucose (mg/dL) 149 H (70-110) mg/dL Calcium (8.4-10.2) mg/dL Fluid Appearance (Clear) Microbiology - Last 24 Hours (Table) 10/16/24 12:47 Nasal Screen MRSA/MSSA - Final Nasal Swab 10/16/24 20:30 Gram Stain - Preliminary Sputum
[2024-10-18] MEDS: HEPARIN SOD,PORK IN 0.45% NACL 25,000 UNIT in 0.45% NACL 1 250ML.BAG IV SCH (10:01)
[2024-10-18] MEDS: HEPARIN SODIUM 1,000 UN/ML (10ML VL) IV ONE (10:02)
--- NOTE | 2024-10-18 10:53 | US ---
EXAMINATION TYPE: US venous doppler duplex LE BI DATE OF EXAM: 10/18/2024 10:37 AM COMPARISON: NONE CLINICAL INDICATION: Male, 64 years old with history of r/o dvt; swelling, TECHNIQUE: The lower extremity deep venous system is examined utilizing real time linear array sonog mary with graded compression, color doppler sonography, and spectral doppler. SIDE PERFORMED: Bilateral FINDINGS: VESSELS IMAGED: Common Femoral Vein Deep Femoral Vein Greater Saphenous Vein * Femoral Vein Popliteal Vein Small Saphenous Vein * Proximal Calf Veins (* superficial vessels) Right Leg: CFV and GSV unable to see due to central line catheter in Rt Groin, negative for DVT in v essels scanned. Sparrow cyst visualized popliteal area medial measurin.6x0.9x1.9cm , Color Doppler imaging shows patency of the vessels. Spectral waveforms are within normal limits. Left Leg: Negative for DVT, Color Doppler imaging shows patency of the vessels. Spectral waveforms a re within normal limits. IMPRESSION: 1. No evidence of DVT. 2. Soft tissue edema with findings compatible with a right popliteal fossa cyst measuring 4.6 cm. [facility], , 10/18/2024 10:51 AM
[2024-10-18 11:56] LABS: Glucose, BF Source Pleural Fluid; Glucose, Body Fluid 243 mg/dL; T. Protein, Body Fluid Source Pleural Fluid; Total Protein, Body Fluid 1920 mg/dL
[2024-10-18 11:57] LABS: LDH, Body Fluid Source Pleural Fluid
[2024-10-18 12:02] LABS: Glucose,Whole Blood 148 mg/dL (70-110)
--- NOTE | 2024-10-18 13:55 | P.PN ---
Subjective Progress Note Date: 10/18/24 Patient is a 64-year-old male who is being seen in the ICU due to hypovolemic shock and rhabdomyolysis. He is a poor historian due to altered mental status and unresponsiveness. All history is obtained from the chart. He initially presented to the emergency department after being found facedown on the ground with a contusion to his forehead and abrasions to his knee and left toes. She stated that he had been having nausea and vomiting for a day prior to being found down. He was noted to have diarrhea as well. Patient is a daily drinker and consumes about a fifth per day according to the notes he has not drank for the 2 days prior to this admission. He also has a history of type 1 diabetes mellitus. Initial EKG showed sinus tachycardia. Head/cervical spine CT showed no acute intracranial process and no acute fracture or traumatic subluxation of the cervical spine. Initial chest x-ray showed right middle lobe scarring/atelectasis, no acute pulmonary process. He had received 4 L of normal saline. Initial labs showed CK level of 18,113, WBCs 10.7, hemoglobin 12.5, sodium 126, creatinine 3.18 lactic acid 6.9, AST 401, ALT 65. Preliminary blood culture showed gram-positive cocci and patient was started on vancomycin. 10/07/2024. He is maintained on a bicarb drip as well as normal saline. He remains unresponsive to verbal stimulation. He is maintained on CIWA protocol. Labs today: WBCs 5.1, hemoglobin 11.6, sodium 126, potassium 3.8, BUN 53, creatinine 3.12, ammonia <9. Progress note dated October 08, 2024. 64-year-old male seen in room 252. I was notified by the nurse at nighttime, that the patient's blood pressure continued to drop. We bumped up his dose of n orepinephrine, and gave him a liter of fluid. In addition, his respiratory status was marginal, and the blood gas was ordered. The patient is currently on 6 L of oxygen. The patient was admitted on October 06. He is getting saline at 150 cc an hour, and Precedex at 0.4 mcg/kg/h. His norepinephrine is running at 31 mcg/min. There is staphylococci in his blood. I have asked the nurses to add Ativan Dilaudid and Haldol to his regimen, to try to wean him off the dexmedetomidine. White count of 9.1, hemoglobin hematocrit 29, platelet count 88,000. Sodium 131, potassium 3, chloride 92, CO2 32, BUN 50, creatinine 2.34. Glucose is 167. Calcium is 6.3. CK was 8796. AST is 507. ALT is 136. Albumin is 2.2. Blood cultures from the were positive for Streptococcus group A. Chest x-ray shows bilateral effusions, small, with low lung volumes. 10/09/2024. Patient seen as a followup. No acute events overnight. He is currently on 6 L of oxygen. He was on dextrose 5% - 0.9% NaCl, blood sugars have been in the mid to high 200s. He is receiving Kefzol for streptococcal group A bacteremia. Precedex has been turned off. Levophed is 0.3 mcg/kg/min. WBCs 12.3, hemoglobin 9.7, hematocrit 27.7, platelets 48. Sodium 133, potassium 3.7, chloride 105, CO2 19, BUN 42, creatinine 1.62. Glucose 267. Calcium 6.4. CK 3888. AST 323, ALT 78. Albumin 2.2. Today's chest x-ray showed cardiomegaly, pulmonary vascular congestion, and bilateral pleural effusions. 10/10/2024. Patient is being seen as a followup in the ICU. Overnight he went into A-fib with rapid ventricular rate, was started on an amiodarone drip at 1mg/min, and converted back to normal sinus rhythm. His pressures remain in the 100s/40s and pulses are He is currently on 15 L high flow oxygen. He is on no rmal saline at 150 cc/h. He is maintained on Kefzol for streptococcal group A bactermia, today is day 3. Levophed is at 0.11 mcg/kg/min, vasopressin at 0.02 mcg/kg/min. WBCs 16.4, hemoglobin 9.8, hematocrit 29.6, platelets 38. Sodium 138, potassium 3.5, chloride 112, CO2 23, BUN 35, creatinine 1.26, glucose 164. Ionized calcium 4.1. CK 988. AST 154, ALT 36. Cortisol 32. TSH 4.3830. In addition, he removed his NG tube overnight. Today's chest x-ray is unchanged from previous. He remains lethargic and barely responsive to verbal stimulation. 10/11/2024. Patient is seen in the ICU. He underwent arthroscopic lavage of the right knee yesterday evening and returned to the ICU intubated on mechanical ventilation. He is currently on assist-control mode with rate 18, tidal volume 450, FiO2 70%, PEEP 5. ABG shows pH 7.34, pCO2 37, pO2 95. He is maintained on vasopressin 0.02 units/min, Levophed 0.14 mcg/kg/min, normal saline at 100 cc/h, and Kefzol day 4. WBCs 18.1, hemoglobin 8.8, hematocrit 27.6, platelets 52, sodium 140, potassium 3.9, chloride 115, CO2 17, BUN 35, creatinine 1.08, glucose 191, creatinine kinase 215. Calcium 6.5. Magnesium 1.6. He began IV hydrocortisone 50 mg every 6 hours yesterday. Liver ultrasound performed yesterday revealed no acute process. Chest x-ray today is unchanged from previous. 10/12/2024. Patient is evaluated in the ICU. He remains intubated on mechanical ventilation on assist-control mode with rate 18, tidal volume 450, Fi O2 50%, PEEP 5. ABG shows pH 7.42, pCO2 38, pO2 74. His RSBI yesterday was 110 and he was unable to follow commands so he could not be extubated. He is maintained on vasopressin 0.02 units/min, normal saline at 20 cc/h, IV hydrocortisone 50 mg every 6 hours, and Kefzol day 5. WBCs 17.4, hemoglobin 8.2, hematocrit 25.2, platelets 53, sodium 142, potassium 3.7, chloride 116, CO2 23, BUN 39, creatinine 1.18, glucose 258. Ionized calcium 4.4. Magnesium 1.8. Today's chest x-ray is unchanged. Wound culture gram stain of the right knee preliminary report shows rare gram positive cocci. Progress note dated October 13, 2024. 64-year-old male seen in the intensive care unit, room 252. The patient remains on the mechanical ventilator. He is on volume assist-control, rate 18, tidal volume 450, FiO2 50%, PEEP of 5. Blood gases show pO2 72, pCO2 41, and pH is 7.42. The patient is on propofol at 35 mcg/kg/min, saline at 20 cc an hour, and vital high-protein at 60, with goal of 70. Yesterday, he had a brief spontaneous breathing trial, and he did poorly. Today he will again have a s pontaneous breathing trial, of pressure support of 5 and CPAP of 5. He continues on Ancef. White count 18.8, hemoglobin 8.2, hematocrit 25.8, platelet count 78,000. Sodium 144, potassium 4.1, chlorides 117, CO2 26, BUN 47, creatinine 1.18. Glucose is 340. Albumin is 2.1. Previous blood cultures from October 06 show group A streptococci. Chest x-ray shows bibasilar infiltrates. Today's evaluation of 10/14/2024, the patient is being seen for a follow-up. The patient remains intubated on mechanical ventilator. The patient remains encephalopathic. The patient has history of alcoholism and he was treated for alcohol withdrawal/delirium tremens. The patient was also found to be septic with septic right knee arthritis and secondary bacteremia sepsis with MSSA and the patient is postop day #4 following arthroscopic lavage and debridement of the right knee. The rhabdomyolysis has improved. The patient remains on broad- spectrum antibiotics and the patient remains on IV cefazolin. On today's evaluation, the patient remains sedated on propofol running at 30 mcg/kg/min. He is on the mechanical ventilator, assist-control mode with a rate of 18, tidal volume of 450, FiO2 of 30% with a PEEP of 5. The blood gas showed a pH of 7.49 with a pCO2 of 40 and pO2 of 73. The follow-up chest x-ray from this morning shows stable bilateral lower lobe pulmonary infiltrates. No other acute abnormalities have been noted on today's chest x-ray. Noted the patient has been off norepinephrine and off vasopressin. The patient is currently being diuresed with IV Lasix. The fluid balance over the past 24 hours is -1 L. Noted the patient was significantly in the past fluid balance as the patient was being resuscitated with IV fluids regarding his underlying septic shock. The patient remains on hydrocortisone stress dose. The patient remains on vital high-protein at rate of 70 cc an hour. Afebrile. Producing adequate amount of urine output. WBC count is at 16 with a hemoglobin 7.9 and a platelet count of 102. The platelet count has been improving steadily. The patient's BUN is 48 with a creatinine of 1.05. Sodium levels at 148, bicarb is at 30, glucose at 232, BUN is 48 with a creatinine of 1.05. CPK level has down trended. Alkaline phosphatase 555 with an AST of 44 and an ALT of 10. The cultures from the joints/right knee was positive for strep group A and the blood cultures showed a similar bacteria. On 10/15/2024, the patient remains intubated on the mechanical ventilator. This morning, the patient is on propofol at 30 mcg/kg/min. The patient was taken off the propofol yesterday and he was started on Precedex. He was following some simple commands. Nevertheless, he became restless and tachypneic and based on that, overnight, the patient was started back on propofol which is currently running at 30 mcg/kg/min. He remains on the mechanical ventilator, assist- control mode with rate of 22, tidal volume of 500, FiO2 50% with a PEEP of 5. Blood gas showed pH of 7.5 with a pCO2 of 43 and pO2 of 68. The patient is on IV fluids at KVO. He is receiving water 100 cc every 4 hours through the NG. The patient is on vital high-protein at rate of 70 cc an hour. He remains on IV Lasix 20 mg every 12 hours. The fluid balance over the past 24 hours is -1 L. The follow-up chest x-ray from today shows no significant interval change. The patient continues to have some stable bibasilar pulmonary filtrates and small effusions. Hemodynamically stable on no pressors. No other significant events overnight. He remains on IV cefazolin regarding his MSSA septicemia and septic arthritis. Remains on Levemir insulin 15 units twice daily and NovoLog sliding scale coverage. No agitation. The patient's white cell count is 15.4, hemoglobin 7.9, platelet is 118, sodium is at 151 with a potassium level of 3.2, BUN is 47 with a creatinine of 0.9.. 10/16/2024, the patient is being seen for a follow-up. The patient remains extubated, calm and comfortable. He is currently on 6 L of oxygen by nasal cannula. Overnight, the patient was briefly placed on a BiPAP pressure of 12/5 with an FiO2 40% for some increased shortness of breath and the patient is currently back on nasal cannula for now. Chest x-ray shows infiltrates in the lung bases bilaterally. Pneumonia is being considered. The patient accordingly was switched to a combination of cefepime and vancomycin. Meanwhile, the patient remains on D5 water at a rate of 75 cc an hour. Overnight, the patient was having episodes of hypoglycemia with a blood sugar as low as 49. Based on that, the Levemir insulin was discontinued. He also had purulence of atrial fibrillation with rapid ventricular response with a heart rate as high as 150. Currently is back in the normal sinus rhythm. His blood work shows a white cell count of 16, hemoglobin of 7.8 and a platelet count of 126. Sodium levels at 149, potassium is at 3.4, BUN is 37 with a creatinine of 0.8. His procalcitonin level is at 1.08. He was complaining of back pain. Based on his recent history of septic knee arthritis and staph bacteremia, MRI of the spine was also ordered by the orthopedic surgery to rule out any underlying epidural abscess. This will be done within next 24 to 48 hours once the patient is medically more stable. On 10/17/2024, the patient is being seen for a follow-up. The patient was extub ated on 10/15/2024. The patient was on 6 L of O2 nasal cannula. Earlier this morning, the patient became progressively more short of breath and hypoxic and placed on that the patient was placed on a BiPAP pressure of 14/8 with an FiO2 of 100%. His blood gases prior to that showed a pH of 7.47 with a pCO2 44 and pO2 of 45. A repeat chest x-ray from this morning shows evidence of increased opacities in the lung base bilaterally along with possibility of pleural effusions. Based on that, performed a bedside ultrasound and the patient was found to have a 6 cm pocket of fluid on the right and 4.9 cm on the left. I performed a bedside thoracentesis on the patient and the right-sided pleural effusion was evacuated without any complications. Total amount of fluid removed was 410 cc. The fluid will be sent for analysis. Meanwhile, the patient is kept on BiPAP. He remains on broad-spectrum antibiotics and antibiotic coverage includes a combination of cefepime and vancomycin. The patient also encountered episodes of atrial fibrillation. The patient was in rapid ventricular response and based on that the patient was given amiodarone bolus and started on amiodarone protocol and his current rhythm is back into normal sinus rhythm. He remains on D5 water with a sodium level of 146 and a potassium level of 3.4, BUN is 43 with a creatinine of 1. LFTs are normal. The white cell count is 11.8 with hemoglobin 7.5 with a platelet count of 173. He is profoundly weak. He has failed a swallow evaluation the patient remains NPO. On 10/18/2024, the patient is being seen for a follow-up. The patient remains short of breath, on a BiPAP at a pressure of 14 over 8 cm of water with FiO2 of 80%. The patient had a thoracentesis yesterday and a total of 400 cc of pleural fluid was aspirated from the right lung. Follow-up chest x-ray shows stable left basilar infiltrate and a small left-sided pleural effusion. Aeration in the right lung base is improved considerably. Limited bronchospasm and wheezing. Doppler of the lower extremity was done today and it shows no evidence of any DVT. The patient was given Lasix yesterday without any significant response. Fluid balance is -300 cc over the past 24 hours. Cardiac rhythm is sinus. Remains on bronchodilators. Remains on IV heparin. Remains on IV cefepime. Remains on amiodarone at 0.5 mg/min. Remains on Levemir insuli n 5 units daily twice daily and NovoLog sliding scale coverage. Remains n.p.o. as the patient failed a swallow evaluation the patient is currently on a BiPAP. Blood work from today shows a white cell count of 10.4, hemoglobin 7.8 and a platelet count of 202. Creatinine is at 1.34 with a BUN of 43. Sodium levels at 146 and a potassium level is at 3.9. Serum bicarb is at 31. He remains on normal saline at rate of 75 cc an hour. Objective - Vital Signs Vital signs: Vital Signs Temp 98.2 F 10/18/24 12:00 Pulse 77 10/18/24 12:00 Resp 24 10/18/24 12:00 BP 107/61 10/18/24 07:00 Pulse Ox 92 L 10/18/24 12:00 FiO2 80 10/18/24 12:00 Intake & Output 10/17/24 10/18/24 10/18/24 18:59 06:59 18:59 Intake Total 970.092 003 6682.283 Output Total 725 525 295 Balance 245.811 971 9357.283 Weight 92.9 kg 92.9 kg Intake: IV 736 708 468 Dextrose 5% in Water 1, 300 450 450 000 ml @ 50 mls/hr IV . Q20H [facility] Rx#:[id number] Dextrose 5% in Water 1, 300 225 000 ml @ 75 mls/hr IV . [id number] Rx#:[id number] Potassium Chloride 20 meq 100 In Water For Injection 1 100ml.bag @ 50 mls/hr IVPB [facility] Rx#: [id number] Pressure Bag 36 33 18 Intake, IV Titration 234.727 945.283 Amount Amiodarone 450 mg In 234.727 245.283 Dextrose 5% in Water 250 ml @ 0.5 MG/MIN 16.667 mls/hr IV .Q15H [facility] Rx#: [id number] Cefepime 2 gm In Sodium 100 Chloride 0.9% 100 ml @ 25 mls/hr IVPB Q8HR [facility] Rx# :[id number] Potassium Chloride 20 meq 100 In Water For Injection 1 100ml.bag @ 50 mls/hr IVPB Q2H [facility] Rx#: [id number] Vancomycin 1,500 mg In 500 Sodium Chloride 0.9% 500 ml 500 ml @ 167 mls/hr IVPB Q12HR [facility] Rx#: [id number] Output: Urine 725 525 295 Other: Voiding Method Indwelling Catheter Indwelling Catheter Indwelling Catheter ABP, PAP, CO, CI - Last Documented Arterial Blood Pressure 112/45 - Exam The patient is awake and alert and extubated and the patient is currently on BiPAP at a pressure of 14/8 with an FiO2 of 80% Head exam was generally normal. There was no scleral icterus or corneal arcus. Mucous membranes were moist. Neck supple. Full range of motion. No adenopathy thyromegaly or neck vein distention. Cardiovascular examination reveals regular rhythm rate. S1-S2 normal. No S3 or S4. No discernible murmur noted. Lungs reveal mild scattered rhonchi. No wheezes or crackles. Breath sounds equal. Breath sounds are diminished in lung base bilaterally, improved fo llowing the right-sided thoracentesis Abdomen soft, without bowel sounds. No masses or tenderness. Extremities are intact. No cyanosis clubbing or edema. Right knee surgical wound site is dry clean and intact. Right knee is slightly swollen. No erythema. No tenderness. Skin reveals multiple abrasions and bruises. Neurologically, the patient is awake and alert and the patient does not have any focal neurological deficit. Cranial nerves are essentially intact. Profound generalized weakness in all 4 extremities. No focal neurological deficits. - Labs CBC & Chem 7: 10/18/24 04:18 10/18/24 08:05 Labs: Abnormal Lab Results - Last 24 Hours (Table) 10/17/24 10/17/24 10/17/24 Range/Units 13:07 17:10 19:59 RBC (4.30-5.90) m/uL Hgb (13.0-17.5) gm/dL Hct (39.0-53.0) % MCV (80.0-100.0) fL MCH (25.0-35.0) pg Macrocytosis Sodium (137-145) mmol/L Chloride (98-107) mmol/L Carbon Dioxide (22-30) mmol/L BUN (9-20) mg/dL Creatinine (0.66-1.25) mg/dL Glucose (74-99) mg/dL POC Glucose (mg/dL) 261 H 248 H (70-110) mg/dL Calcium (8.4-10.2) mg/dL Fluid Appearance Slightly Cloudy A (Clear) 10/18/24 10/18/24 10/18/24 Range/Units 04:18 04:18 06:19 RBC 2.11 L (4.30-5.90) m/uL Hgb 7.8 L (13.0-17.5) gm/dL Hct 24.4 L (39.0-53.0) % MCV 115.6 H (80.0-100.0) fL MCH 37.1 H (25.0-35.0) pg Macrocytosis Marked A Sodium 146 H (137-145) mmol/L Chloride 114 H (98-107) mmol/L Carbon Dioxide 31 H (22-30) mmol/L BUN 43 H (9-20) mg/dL Creatinine 1.37 H (0.66-1.25) mg/dL Glucose 119 H (74-99) mg/dL POC Glucose (mg/dL) 149 H (70-110) mg/dL Calcium 7.0 L (8.4-10.2) mg/dL Fluid Appearance (Clear) 10/18/24 10/18/24 Range/Units 08:05 12:00 RBC (4.30-5.90) m/uL Hgb (13.0-17.5) gm/dL Hct (39.0-53.0) % MCV (80.0-100.0) fL MCH (25.0-35.0) pg Macrocytosis Sodium (137-145) mmol/L Chloride (98-107) mmol/L Carbon Dioxide (22-30) mmol/L BUN (9-20) mg/dL Creatinine 1.34 H (0.66-1.25) mg/dL Glucose (74-99) mg/dL POC Glucose (mg/dL) 148 H (70-110) mg/dL Calcium (8.4-10.2) mg/dL Fluid Appearance (Clear) Microbiology - Last 24 Hours (Table) 10/17/24 13:07 Gram Stain - Preliminary Pleural Fluid 10/16/24 20:30 Gram Stain - Preliminary Sputum Sputum Culture - Preliminary Enterobacter aerogenes 10/16/24 12:47 Nasal Screen MRSA/MSSA - Final Nasal Swab Assessment and Plan Plan: Encephalopathy, multifactorial. The patient had delirium tremens and subsequently patient was treated for septic shock. The patient's encephalopathy is improved and the patient is awake and alert and communicating. No focal neurological deficit. Acute hypoxic respiratory failure, the patient has been intubated on 10/10/2024 following his knee surgery and the patient remains intubated on the mechanical ventilator, chest x-ray is unchanged and the patient continues to have atelectatic changes and small infiltrates in the lung base bilaterally. The patient was extubated on 10/15/2024 and the patient was on 6 L of O2 nasal cannula and earliest morning the patient became progressively more hypoxic and short of breath and the patient was placed on a BiPAP pressure of 14/8 and FiO2 of 80%. Thoracentesis of the right lung was done and total of 400 cc of fluid was aspirated from the right hemithorax. Chest x-ray shows limited left basilar infiltration and small left-sided pleural effusion. Bilateral lower lobe pulmonary filtrates, rule out pneumonia the patient remains on a combination of cefepime and vancomycin. Vancomycin trough is at 28 Bilateral pleural effusion status postthoracentesis in the right with evacuation of 400 cc of pleural fluid, chest x-ray from today shows a small left-sided pleural effusion Septic shock, currently off pressors Septic arthritis of the right knee secondary to strep group A in addition to a positive blood cultures with the same microorganism, currently on IV cefepime Back pain, rule out epidural abscess. MRI of the spine will be done at a later stage once the patient is medically more stable. Chronic alcohol abuse, with acute alcohol withdrawal syndrome, recovered Postop day # 8 status post arthroscopy, with arthroscopic lavage and debridement of the right knee, partial medial meniscectomy and medial femoral condyle and medial tibial plateau chondroplasty. Status post fall, with rhabdomyolysis, secondary to immobility. Acute kidney injury, creatinine stable at 1.3 Lactic acidosis, resolved. History of coronary artery disease, with previous catheterization and stent placement. CHF with mild impairment LV function with an ejection fraction of 45% Diabetes mellitus type I with episodes of hypoglycemia Gastroesophageal reflux disease. Hyperlipidemia. Hypertension. History of myocardial infarction. History of osteoarthritis. Plan: Keep the patient on BiPAP and gradual wean down the FiO2 to maintain saturation above 90%, currently on FiO2 of 80% and the patient is on a BiPAP pressure of 14 over 8 cm of water Right lung thoracentesis been completed. Doppler lower extremities were negative We will do a CT of the chest Continue IV heparin Monitor renal function Continue IV cefepime and discontinue the vancomycin as this may be contributing to his renal failure Continue amiodarone per protocol and consult cardiology regarding his paroxysmal atrial fibrillation. The patient is currently on IV heparin Incentive spirometer Patient failed a swallow evaluation and the patient is currently n.p.o. The patient is currently off pressors Monitor fever pattern Change Levemir insulin to 5 units units nightly along with Scale insulin coverage and watch for any signs of hypoglycemia MRI of the thoracic and lumbosacral spine was the patient is medically stable IV Protonix Monitor fluid balance PT evaluation Will continue to follow. This is a critical care evaluation that was done more than 30 minutes. Time with Patient: Greater than 30
--- NOTE | 2024-10-18 14:16 | CT ---
EXAMINATION TYPE: CT angio chest CT DLP: 472.7 mGycm, Automated exposure control for dose reduction was used. DATE OF EXAM: 10/18/2024 2:03 PM COMPARISON: Chest radiograph 10/18/2024, ultrasound chest 10/17/2024, CT chest on 524 CLINICAL INDICATION:Male, 64 years old with history of r/o PE; Increased oxygen dependence rule out P E TECHNIQUE/CONTRAST: CTA scan of the thorax is performed with IV Contrast, patient injected with 80 mL of Isovue 370, pulm onary embolism protocol. MIP images are created and reviewed. FINDINGS: Pulmonary Artery: There is no evidence for a filling defect within the pulmonary vasculature to sugge st acute pulmonary embolism. The pulmonary artery is enlarged measuring 3.6 cm in diameter. This can be seen with pulmonary arterial hypertension. Lungs/Pleura: Trace right and small left pleural effusions. Patchy right lower lobe consolidative opa cities. Partial atelectasis of the lingula and complete atelectasis of the left lower lobe some conso lidative changes. Some patchy peripheral anterior left upper lobe opacities. Linear scarring and/or a telectasis within the right middle lobe. Airway: Opacities identified within the left main bronchus with atelectatic change. Heart: The heart is mildly enlarged for size. Trace pericardial effusion. Coronary artery calcificati ons. Vasculature: No evidence of aortic aneurysm. Mild atherosclerotic calcification of the aorta and its branches. Mediastinum: No evidence of adenopathy. Musculoskeletal: No acute osseous abnormalities. Partial visualization of anterior cervical fusion orosco rdware. Mild to moderate multilevel degenerative disc disease. Soft Tissues: Diffuse anasarca. Lower neck: No significant findings. Upper Abdomen: No significant findings. IMPRESSION: 1. No evidence of pulmonary embolism. 2. Atelectasis and consolidation involving the left lower lobe and lingula with opacity identified wi thin the left mainstem bronchus. Likely relating to aspiration secretions. Additional patchy consolid ative opacities within the right lower lobe. Trace peripheral anterior left upper lobe reticular opac ities. Findings are most consistent with multifocal pneumonia and atelectasis. 3. Small left and trace right pleural effusions. [facility], , 10/18/2024 2:14 PM
[2024-10-18 14:20] LABS: ABG Base Excess 3.9 mmol/L; ABG HCO3 28 mmol/L (21-25); ABG Oxygen Saturation 80.7 % (94-97); ABG PCO2 39 mmHg (35-45); ABG PH 7.46 (7.35-7.45); ABG TCO2 29 mmol/L (19-24)
--- NOTE | 2024-10-18 14:36 | P.PN ---
Subjective Progress Note Date: 10/18/24 Principal diagnosis: Reason for follow-up is Streptococcus agalactiae bacteremia Patient is a 64-year-old male past medical history significant for diabetes mellitus hypertension hyperlipidemia ME osteoarthritis coronary disease patient was brought into the hospital after apparently the patient was found to be facedown on the ground with contusion to his forehead and abrasion to his knee and some bloody toes, patient did have a fever subsequently blood cultures came back positive with Streptococcus agalactiae prompting this consultation. Patient noticed to have swelling of the right knee aspirate was purulent subsequently the patient did have a right knee washout completed by orthopedics on 10/10/2024. On today's evaluation that is 10/18/2024,the patient remains to be afebrile, patient is on high flow nasal cannula oxygen denies chest pain no vomiting diarr hea any change reported by nursing staff. Patient white count is down to 10.4, creatinine slightly up to 1.37 vancomycin trough is 27.8 sputum is growing Enterobacter Objective - Vital Signs Vital signs: Vital Signs Temp 98.2 F 10/18/24 08:00 Pulse 77 10/18/24 09:03 Resp 16 10/18/24 09:03 BP 107/61 10/18/24 07:00 Pulse Ox 100 10/18/24 08:00 FiO2 80 10/18/24 08:53 Intake & Output 10/17/24 10/18/24 10/18/24 18:59 06:59 18:59 Intake Total 970.016 317 3982.283 Output Total 725 525 215 Balance 245.101 441 6455.283 Weight 92.9 kg Intake: IV 736 708 312 Dextrose 5% in Water 1, 300 450 300 000 ml @ 50 mls/hr IV . Q20H PITO Rx#:[id number] Dextrose 5% in Water 1, 300 225 000 ml @ 75 mls/hr IV . [id number] Rx#:[id number] Potassium Chloride 20 meq 100 In Water For Injection 1 100ml.bag @ 50 mls/hr IVPB ONCE STA Rx#: [id number] Pressure Bag 36 33 12 Intake, IV Titration 234.727 945.283 Amount Amiodarone 450 mg In 234.727 245.283 Dextrose 5% in Water 250 ml @ 0.5 MG/MIN 16.667 mls/hr IV .Q15H PITO Rx#: [id number] Cefepime 2 gm In Sodium 100 Chloride 0.9% 100 ml @ 25 mls/hr IVPB Q8HR PITO Rx# :[id number] Potassium Chloride 20 meq 100 In Water For Injection 1 100ml.bag @ 50 mls/hr IVPB Q2H PITO Rx#: [id number] Vancomycin 1,500 mg In 500 Sodium Chloride 0.9% 500 ml 500 ml @ 167 mls/hr IVPB Q12HR PITO Rx#: [id number] Output: Urine 725 525 215 Other: Voiding Method Indwelling Catheter Indwelling Catheter Indwelling Catheter ABP, PAP, CO, CI - Last Documented Arterial Blood Pressure 123/46 - Exam GENERAL DESCRIPTION: Middle-age male lying in bed in no distress RESPIRATORY SYSTEM: Unlabored breathing , decreased breath sounds at bases HEART: S1 S2 regular rate and rhythm , ABDOMEN: Soft , no tenderness EXTREMITIES: Swelling to the lower extremity and right knee but no redness - Labs CBC & Chem 7: 10/18/24 04:18 10/18/24 08:05 Labs: Abnormal Lab Results - Last 24 Hours (Table) 10/17/24 10/17/24 10/17/24 Range/Units 12:23 13:07 17:10 RBC (4.30-5.90) m/uL Hgb (13.0-17.5) gm/dL Hct (39.0-53.0) % MCV (80.0-100.0) fL MCH (25.0-35.0) pg Macrocytosis Sodium (137-145) mmol/L Chloride (98-107) mmol/L Carbon Dioxide (22-30) mmol/L BUN (9-20) mg/dL Creatinine (0.66-1.25) mg/dL Glucose (74-99) mg/dL POC Glucose (mg/dL) 264 H 261 H (70-110) mg/dL Calcium (8.4-10.2) mg/dL Fluid Appearance Slightly Cloudy A (Clear) 10/17/24 10/18/24 10/18/24 Range/Units 19:59 04:18 04:18 RBC 2.11 L (4.30-5.90) m/uL Hgb 7.8 L (13.0-17.5) gm/dL Hct 24.4 L (39.0-53.0) % MCV 115.6 H (80.0-100.0) fL MCH 37.1 H (25.0-35.0) pg Macrocytosis Marked A Sodium 146 H (137-145) mmol/L Chloride 114 H (98-107) mmol/L Carbon Dioxide 31 H (22-30) mmol/L BUN 43 H (9-20) mg/dL Creatinine 1.37 H (0.66-1.25) mg/dL Glucose 119 H (74-99) mg/dL POC Glucose (mg/dL) 248 H (70-110) mg/dL Calcium 7.0 L (8.4-10.2) mg/dL Fluid Appearance (Clear) 10/18/24 10/18/24 Range/Units 06:19 08:05 RBC (4.30-5.90) m/uL Hgb (13.0-17.5) gm/dL Hct (39.0-53.0) % MCV (80.0-100.0) fL MCH (25.0-35.0) pg Macrocytosis Sodium (137-145) mmol/L Chloride (98-107) mmol/L Carbon Dioxide (22-30) mmol/L BUN (9-20) mg/dL Creatinine 1.34 H (0.66-1.25) mg/dL Glucose (74-99) mg/dL POC Glucose (mg/dL) 149 H (70-110) mg/dL Calcium (8.4-10.2) mg/dL Fluid Appearance (Clear) Microbiology - Last 24 Hours (Table) 10/16/24 12:47 Nasal Screen MRSA/MSSA - Final Nasal Swab 10/16/24 20:30 Gram Stain - Preliminary Sputum Assessment and Plan (1) Sepsis Current Visit: Yes Status: Acute Code(s): A41.9 - SEPSIS, UNSPECIFIED ORGANISM SNOMED Code(s): 91792355 (2) Streptococcal bacteremia Current Visit: Yes Status: Acute Code(s): R78.81 - BACTEREMIA; B95.5 - UNSP STREPTOCOCCUS THE CAUSE OF [facility]EASES [facility] SNOMED Code(s): 991569021875 Plan: 1patient presented to the hospital with sepsis in this patient who did have f ever tachycardia elevated white count and now with evidence of streptococcal bacteremia which is usually of skin and soft tissue origin 2-patient noticed to have right knee effusion has been evaluated by orthopedics and is status post aspiration with purulent drainage subsequently did have right knee washout by orthopedic cultures are pending may need further workup including MRI of the spine when stable. Ortho is following the patient closely 3patient right knee fluid culture also came back positive with group A strep 4-patient did have a new fever and concern for possible pneumonia also have right-sided effusion status post thoracocentesis cultures will be followed 5sputum culture currently growing Enterobacter patient white count has normalized continue with cefepime, vancomycin has been discontinued patient is going for CT angiogram of the chest as reported by the nursing staff results will be followed at the bedside questions answered Dictation was produced using [employer] dictation software. please excuse any grammatical, word or spelling errors. Time with Patient: Less than 30
[2024-10-18] MEDS: CISATRACURIUM 2 MG/ML 5 ML VIAL IV ONE (14:42)
[2024-10-18] MEDS: NOREPINEPHRINE 8 MG in SODIUM CHLORIDE 0.9% 250 ML IV SCH (14:56)
--- NOTE | 2024-10-18 15:24 | XR ---
EXAMINATION TYPE: XR chest 1V portable DATE OF EXAM: 10/18/2024 COMPARISON: 10/18/2024 CLINICAL INDICATION: Male, 64 years old with history of Tube placement; , TECHNIQUE: XR chest 1V portable views of the chest. FINDINGS: Limited inspiration. Postsurgical changes left cervical spine. Degenerative changes of the spine. Hea rt size normal. No overt failure. There is bilateral consolidation and small pleural effusion. No inc rease in the amount of pleural fluid on the left. ET tube is in good position with the tip approximately 4.1 cm above the marvel. NG tube courses into the abdomen.. IMPRESSION: 1. There is bilateral consolidation and pleural effusions with progression on the left relative to pr ior x-ray. 2. ET tube is in good position with the tip approximately 4.1 cm above the marvel. NG tube courses in to the abdomen. [facility], , 10/18/2024 3:22 PM
[2024-10-18] MEDS: MAGNESIUM SULFATE-D5W PMX 1 GM in DEXTROSE/WATER 1 100ML.BAG IVPB ONE (15:47)
[2024-10-18 15:48] LABS: ABG Base Excess 2.4 mmol/L; ABG HCO3 27 mmol/L (21-25); ABG Oxygen Saturation 97.9 % (94-97); ABG PCO2 40 mmHg (35-45); ABG PH 7.43 (7.35-7.45); ABG PO2 90 mmHg (83-108); ABG TCO2 28 mmol/L (19-24)
[2024-10-18 15:49] LABS: ABG PO2 43 mmHg (83-108)
[2024-10-18] MEDS: DEXTROSE 5% IN WATER 1,000 ML IV SCH (16:24)
--- NOTE | 2024-10-18 16:36 | P.PCN ---
Date of Procedure: 10/18/24 Preoperative Diagnosis: Acute hypoxic respiratory failure Bilateral pneumonia left more than right Postoperative Diagnosis: Same Procedure(s) Performed: Intubation, insertion of orotracheal tube Bronchoscopy, therapeutic airway suctioning, bronchoalveolar lavage Anesthesia: AHSAN Surgeon: Gilmar Omer Estimated Blood Loss (ml): 0 Pathology: other Condition: critical Disposition: ICU Operative Findings: Indication: Respiratory compromise. A time-out was completed verifying correct patient, procedure, site, positioning, and implant(s) or special equipment if applicable. The patient was positioned appropriately and a #8 endotracheal tube was placed under direct GlideScope examination. The tube was anchored at 22 cm at the teeth. Correct placement was confirmed by presence of bilateral breath sounds without air sounds in the abdomen on auscultation. An end-tidal CO2 monitor was also used to confirm tracheal placement of the ET tube. A chest x-ray was ordered to assess for pneumothorax and verify endotracheal tube placement. The patient tolerated the procedure well and there were no complications. Bronchoscopy and the bronchioloalveolar lavage Patient was intubated and placed on the mechanical ventilator. The procedure was done as the patient was being adequately oxygenated and ventilated. The patient was already sedated with propofol. The flexible bronchoscope was inserted through an adapter and passed through the endotracheal tube and was ad vanced into the lower trachea. There was copious amounts of thick purulent respiratory secretions encountered throughout the airway and the majority of the secretions of the mucous plugs were present in the distal trachea and the left mainstem bronchus. Therapeutic airway suctioning was done and a total of 30 cc of purulent material was aspirated from the left lung including the left mainstem bronchus and left lower lobe bronchus elevated segments of the left lower lobe. The respiratory secretions and the mucous plugs were scanned in the right lung. Following that an airway inspection was done. The distal trachea, bilateral mainstem bronchi, right upper lobe bronchus, bronchus intermedius, right middle lobe and right lower lobe bronchus and the patient's 10 segments in the right and then left mainstem bronchus and the left upper and left lower lobe bronchi and the various 8 segments on the left were inspected. Some minimal residual secretions were identified left lower lobe segments and those were suctioned out without any major difficulties. Subsequently, bronchoalveolar lavage of the left lower lobe was done. A total of 60 cc of saline was infused and 20 cc was aspirated without any major difficulties. The aspirate was cloudy. No endobronchial tumors. Findings are consistent with pneumonia with extensive mucous plugs obstructing the left mainstem bronchus.
[2024-10-18 17:29] LABS: Glucose,Whole Blood 185 mg/dL (70-110)
[2024-10-18] MEDS: INSULIN ASPART (NovoLOG) 100 UNIT/ML VIAL SQ SCH (17:47)
--- NOTE | 2024-10-18 17:55 | P.PN ---
Subjective Progress Note Date: 10/18/24 64-year-old male who is being seen in the ICU due to hypovolemic shock and rhabdomyolysis. He is a poor historian due to altered mental status and unresponsiveness. All history is obtained from the chart. He initially presented to the emergency department after being found facedown on the ground with a contusion to his forehead and abrasions to his knee and left toes. She stated that he had been having nausea and vomiting for a day prior to being found down. He was noted to have diarrhea as well. Patient is a daily drinker and consumes about a fifth per day according to the notes he has not drank for the 2 days prior to this admission. He also has a history of type 1 diabetes mellitus. Initial EKG showed sinus tachycardia. Head/cervical spine CT showed no acute intracranial process and no acute fracture or traumatic subluxation of the cervical spine. Initial chest x-ray showed right middle lobe scarring/atelectasis, no acute pulmonary process. He had received 4 L of normal saline. Initial labs showed CK level of 18,113, WBCs 10.7, hemoglobin 12.5, sodium 126, creatinine 3.18 lactic acid 6.9, AST 401, ALT 65. Preliminary blood culture showed gram-positive cocci and patient was started on vancomycin. 24-hour interval change 10/12/2024 -- Patient is evaluated in the ICU. He remains intubated on mechanical ventilation - ABG shows pH 7.42, pCO2 38, pO2 74. - He is maintained on vasopressin 0.02 units/min, normal saline at 20 cc/h, IV hydrocortisone 50 mg every 6 hours, and Kefzol day 5. Labs are reviewed WBCs 17.4, hemoglobin 8.2, hematocrit 25.2, platelets 53, sodium 142, potassium 3.7, chloride 116, CO2 23, BUN 39, creatinine 1.18, gluco se 258. Ionized calcium 4.4. Magnesium 1.8. Today's chest x-ray is unchanged. Wound culture gram stain of the right knee preliminary report shows rare gram positive cocci. 10/13/2024 Patient is seen and evaluated in ICU at bedside; remains on the mechanical ventilator. Discussed with nursing staff. Concerns about elevated blood sugars; patient was placed on home dose of Lantus which did not help much - Blood gases show pO2 72, pCO2 41, and pH is 7.42. - The patient is on propofol at 35 mcg/kg/min, saline at 20 cc an hour, and vital high-protein at 60, with goal of 70. Yesterday, he had a brief spontaneous breathing trial, and he did poorly. Today he will again have a spontaneous breathing trial, of pressure support of 5 and CPAP of 5. He continues on Ancef. White count 18.8, hemoglobin 8.2, hematocrit 25.8, platelet count 78,000. Sodium 144, potassium 4.1, chlorides 117, CO2 26, BUN 47, creatinine 1.18. Glucose is 340. Albumin is 2.1. Previous blood cultures from October 06 show group A streptococci. Chest x-ray shows bibasilar infiltrates. -- For hyperglycemia I will increase dose of Lantus and add insulin lispro every 4 hours; continue with current sliding scale 10/14/2024 Patient is seen in follow-up today continues on Precedex and attempting to wean maintained on mechanical ventilation with an FiO2 of 50% PEEP is 5. Per nursing staff attempting sedation holiday although did not go well yesterday. Patient is maintained on antibiotics with infectious disease following and patient is status post right knee aspiration with preliminary culture showing strep a with positive blood cultures. Patient continues with significant swelling especially the scrotal area maintained on IV Lasix and will continue. No discussion of PEG and trach as of yet and patient remains full code. Prognosis is guarded. 10/15/2024 Patient is seen this morning continues to be in the ICU currently working on weaning FiO2 and undergoing sedation holiday. Patient is eye tracking and following commands and per pulmonary box finisher working on extubation today. Will await official report and monitor closely. Patient is continued on antibiotics with infectious disease following. 10/16/2024 Patient is seen in follow-up this morning extubated successfully currently maintained on 6 L high flow nasal cannula. Patient is awake and responding appropriately to questions and commands. Patient is extremely lethargic at times and significantly weak with significant edema noted. Sodium is elevated at 150 and is continued on D5 and water. Blood sugars have been elevated and will adjust insulins accordingly. Patient swallow eval performed and failed awaiting reevaluation with speech. Continue n.p.o. for now. White count remains elevated patient is maintained on antibiotics with infectious disease following. Awaiting repeat cultures. Procalcitonin 1.06. Questions and concerns were answered to the best of my ability with son at the bedside. 10/17/2024 Patient is evaluated today in follow up in the ICU. He was extubated yesterday. Continues on oxygen support on 100% BiPAP at this time. Cultures from the right knee arthroscopy reveals Strep A. Chest xray today reveals no change to the bibasilar opacities. Chest ultrasound reveals right pleural effusion pocket size 6.0 cm and left pleural effusion pocket size of 4.9 cm. Both sides marked for possible thoracentesis. Labs today reveal white blood cell count of 11.8, hgb 7. 5, sodium 146, potassium 3.4, BUN 43, creatinine 1.06. Blood glucose 200s. Continues on IV amiodarone, IV cefepime, IV vancomycin. Patient is in normal sinus rhythm currently heart rate in the 80s. 10/18/2024 Patient evaluated today in follow up in the ICU. He is awake alert oriented continues on BiPAP. He is status post right sided thoracentesis with 400 mL off. Chest xray today reveals stable bilateral lower lobe infiltrate and small pleural effusion. White blood cell count today 10.4. Continues on IV vancomycin and IV cefepime. Remains on IV amiodarone. on IV heparin. Patient remains NPO at this time, speech therapy to follow up today to reassess. Review of systems: Constitutional: No reports of fatigue, fever, or chills Cardiovascular: No reports of chest pain or palpitations Respiratory: reports of shortness of breath with a weak cough GI: No reports of nausea, vomiting, or diarrhea, reports to feeling hungry although having difficulty in swallowing : No reports of dysuria or retention Neurovascular: reports of generalized weakness and significant swelling of upper and lower extremities All medications have been reviewed Physical exam: Gen: This is a 64-year-old male who was recently extubated 10/15 continues on BiPAP support., well-developed, elderly appearing, ill-appearing, appears older than stated age HEENT: Head is atraumatic, normocephalic. Pupils equal, round. Sclerae is anicteric. NECK: Supple. No JVD. No lymphadenopathy. No thyromegaly. LUNGS: Diminished breath sounds bilaterally with some bronchial congestion and coarse scattered rhonchi. No intercostal retractions. HEART: S1, S2 are muffled ABDOMEN: Soft. Somewhat taut, positive bowel sounds are present. No masses. No tenderness. Significant scrotal edema noted, minimally improved EXTREMITIES: Bilateral upper and lower extremity edema noted. No calf tenderness. Generalized upper and lower extremity edema along with scrotal swelling noted NEUROLOGICAL: Patient is awake, alert and oriented x 2-3, diffusely weak Assessment: -Chronic alcohol abuse with acute alcohol withdrawal syndrome; [facility] protocol in place; patient remains on thiamine and Protonix. -Acute hypoxic respiratory failure was intubated following knee surgery on 10/10 and successfully extubated on 10/15/24. Currently maintained on 100% BiPAP. -Congestive heart failure with an EF of 45%, diastolic dysfunction -Right sided pleural effusion status post right sided thoracentesis with 400 mL off. -Rhabdomyolysis secondary to immobility due to fall. Improving with IV hydration. We will continue to monitor strict STERLING's, daily weights, renal function electrolytes -Acute kidney injury secondary to ATN due to to septic shock and rhabdomyolysis. Improving; monitor renal function electrolytes; avoid nephrotoxins and hypotension. -Relative adrenal insufficiency. On IV hydrocortisone. -Transaminitis. Improving. -Streptococcus group A bacteremia. Currently on cefazolin per ID recommendation; continue to monitor CBC, CRP and procalcitonin. Possibly secondary to right knee infection -Right knee pain with swelling, status post aspiration along with arthroscopic lavage, culture showing strep a with septic arthritis -Hyponatremia, likely hypovolemic; resolved. -Now hypernatremic likely from free water deficit and continues on D5 water. -Type 1 diabetes mellitus; we will continue to monitor Accu-Cheks before every meal and at bedtime with insulin sliding scale. -History of coronary artery disease with previous catheterization and stent placement. -Hypertension; currently not on any antihypertensive medication. -Sepsis, present on admission possibly secondary to right knee arthritis with bacteremia GI prophylaxis DVT prophylaxis Full code Plan: Patient continues in the ICU with multiple consultations following maintained on IV antibiotics status post arthroscopy with lavage of the right knee and final cultures showing Strep A. Repeat blood cultures thus far are negative and will continue on IV antibiotics with ID following Patient was successfully extubated and currently maintained on BiPAP 100%. Recommend daily chest x-ray, Chest xray today reveals bilateral pleural effusions and right and left side marked for possible thoracentesis. He is now s/p right sided thoracentesis with 400 mL of fluid off. Sent for cytology. Sputum culture showing enterococcus Patient failed swallow eval and awaiting reevaluation with speech therapy, continue n.p.o. for now Blood sugars variable and uncontrolled will adjust insulins and continue with Accu-Cheks before meals and at bedtime as well as 2 AM and adjust long-acting Discussion was had with family at the bedside as well as patient and will likely need rehab on discharge. Patient will need PT/OT therapy evaluation once more stable Follow-up on repeat labs and monitor kidney functions and electrolytes closely. Sodium remains elevated at 146 and is maintained on D5 and water. Patient was given Lasix for generalized edema. Kidney function stable at this time. Overall prognosis remains guarded at this time The impression and plan of care has been dictated by Sharlene Pendleton, Nurse Practitioner as directed. Dr. Randall MD I have performed a history and physical examination and medical decision making of this patient, discussed the same with the dictator, and agree with the dictators assessment and plan as written, documented as a scribe. Based on total visit time, I have performed more than 50% of this visit. Objective - Vital Signs Vital signs: Vital Signs Temp 98.2 F 10/18/24 12:00 Pulse 78 10/18/24 14:10 Resp 28 H 10/18/24 14:10 BP 107/61 10/18/24 07:00 Pulse Ox 89 L 10/18/24 14:00 FiO2 100 10/18/24 14:52 Intake & Output 10/17/24 10/18/24 10/18/24 18:59 06:59 18:59 Intake Total 970.042 986 0520.283 Output Total 725 525 355 Balance 245.709 702 2903.283 Weight 92.9 kg 92.9 kg Intake: IV 736 708 624 Dextrose 5% in Water 1, 300 450 600 000 ml @ 50 mls/hr IV . Q20H [facility] Rx#:[id number] Dextrose 5% in Water 1, 300 225 000 ml @ 75 mls/hr IV . [id number] [facility] Rx#:[id number] Potassium Chloride 20 meq 100 In Water For Injection 1 100ml.bag @ 50 mls/hr IVPB ONCE [facility] Rx#: [id number] Pressure Bag 36 33 24 Intake, IV Titration 234.727 945.283 Amount Amiodarone 450 mg In 234.727 245.283 Dextrose 5% in Water 250 ml @ 0.5 MG/MIN 16.667 mls/hr IV .Q15H [facility] Rx#: [id number] Cefepime 2 gm In Sodium 100 Chloride 0.9% 100 ml @ 25 mls/hr IVPB Q8HR [facility] Rx# :[id number] Potassium Chloride 20 meq 100 In Water For Injection 1 100ml.bag @ 50 mls/hr IVPB Q2H [facility] Rx#: [id number] Vancomycin 1,500 mg In 500 Sodium Chloride 0.9% 500 ml 500 ml @ 167 mls/hr IVPB Q12HR [facility] Rx#: [id number] Output: Urine 725 525 355 Other: Voiding Method Indwelling Catheter Indwelling Catheter Indwelling Catheter ABP, PAP, CO, CI - Last Documented Arterial Blood Pressure 127/54 - Labs CBC & Chem 7: 10/18/24 04:18 10/18/24 08:05 Labs: Abnormal Lab Results - Last 24 Hours (Table) 10/17/24 10/17/24 10/17/24 Range/Units 13:07 17:10 19:59 RBC (4.30-5.90) m/uL Hgb (13.0-17.5) gm/dL Hct (39.0-53.0) % MCV (80.0-100.0) fL MCH (25.0-35.0) pg Macrocytosis Sodium (137-145) mmol/L Chloride (98-107) mmol/L Carbon Dioxide (22-30) mmol/L BUN (9-20) mg/dL Creatinine (0.66-1.25) mg/dL Glucose (74-99) mg/dL POC Glucose (mg/dL) 261 H 248 H (70-110) mg/dL Calcium (8.4-10.2) mg/dL Fluid Appearance Slightly Cloudy A (Clear) 10/18/24 10/18/24 10/18/24 Range/Units 04:18 04:18 06:19 RBC 2.11 L (4.30-5.90) m/uL Hgb 7.8 L (13.0-17.5) gm/dL Hct 24.4 L (39.0-53.0) % MCV 115.6 H (80.0-100.0) fL MCH 37.1 H (25.0-35.0) pg Macrocytosis Marked A Sodium 146 H (137-145) mmol/L Chloride 114 H (98-107) mmol/L Carbon Dioxide 31 H (22-30) mmol/L BUN 43 H (9-20) mg/dL Creatinine 1.37 H (0.66-1.25) mg/dL Glucose 119 H (74-99) mg/dL POC Glucose (mg/dL) 149 H (70-110) mg/dL Calcium 7.0 L (8.4-10.2) mg/dL Fluid Appearance (Clear) 10/18/24 10/18/24 Range/Units 08:05 12:00 RBC (4.30-5.90) m/uL Hgb (13.0-17.5) gm/dL Hct (39.0-53.0) % MCV (80.0-100.0) fL MCH (25.0-35.0) pg Macrocytosis Sodium (137-145) mmol/L Chloride (98-107) mmol/L Carbon Dioxide (22-30) mmol/L BUN (9-20) mg/dL Creatinine 1.34 H (0.66-1.25) mg/dL Glucose (74-99) mg/dL POC Glucose (mg/dL) 148 H (70-110) mg/dL Calcium (8.4-10.2) mg/dL Fluid Appearance (Clear) Microbiology - Last 24 Hours (Table) 10/17/24 13:07 Gram Stain - Preliminary Pleural Fluid 10/16/24 20:30 Gram Stain - Preliminary Sputum Sputum Culture - Preliminary Enterobacter aerogenes 10/16/24 12:47 Nasal Screen MRSA/MSSA - Final Nasal Swab Assessment and Plan Time with Patient: Less than 30
[2024-10-18] MEDS: CHLORHEXIDINE GLUCONATE 15 ML CUP MUCOUS MEM SCH (20:34)
[2024-10-18 20:37] LABS: Glucose,Whole Blood 245 mg/dL (70-110)
[2024-10-18 23:24] LABS: Glucose,Whole Blood 223 mg/dL (70-110)
[2024-10-19 04:20] LABS: Basophils % (A) 0 %; Eosinophils # (A) 0.1 k/uL (0-0.7); Eosinophils % (A) 1 %; HCT 22.7 % (39.0-53.0); HGB 7.1 gm/dL (13.0-17.5); Hypochromasia Slight; Lymphocytes # (A) 1.1 k/uL (1.0-4.8); Lymphocytes % (A) 13 %; MCH 35.3 pg (25.0-35.0); MCHC 31.4 g/dL (31.0-37.0); MCV 112.1 fL (80.0-100.0); Mean Platelet Volume 10.8; Monocytes # (A) 0.2 k/uL (0-1.0); Monocytes % (A) 3 %; Neutrophils # (A) 6.8 k/uL (1.3-7.7); Neutrophils % (A) 82 %; Platelet Count 253 k/uL (150-450); RBC 2.03 m/uL (4.30-5.90); RDW 14.5 % (11.5-15.5); WBC 8.4 k/uL (3.8-10.6)
[2024-10-19 04:26] LABS: Macrocytosis Marked
[2024-10-19 05:50] LABS: African American GFR (CKD) 61 (>60 ml/min/1.73 sqM); Anion Gap 3 mmol/L; Blood Urea Nitrogen 40 mg/dL (9-20); Carbon Dioxide 24 mmol/L (22-30); Chloride 117 mmol/L (98-107); Glucose 176 mg/dL (74-99); Non-African American GFR(CKD) 52 (>60 ml/min/1.73 sqM); Potassium 4.9 mmol/L (3.5-5.1); Sodium 144 mmol/L (137-145)
[2024-10-19 05:53] LABS: Glucose,Whole Blood 193 mg/dL (70-110)
[2024-10-19 05:53] LABS: ABG Base Excess 3.1 mmol/L; ABG HCO3 27 mmol/L (21-25); ABG Oxygen Saturation 98.8 % (94-97); ABG PCO2 35 mmHg (35-45); ABG PH 7.49 (7.35-7.45); ABG PO2 101 mmHg (83-108); ABG TCO2 28 mmol/L (19-24); Allen Test Performed? Yes
--- NOTE | 2024-10-19 07:07 | XR ---
EXAMINATION TYPE: XR chest 1V portable DATE OF EXAM: 10/19/2024 COMPARISON: 10/18/2024 CLINICAL INDICATION: Male, 64 years old with history of Tube placement; TECHNIQUE: Single frontal view of the chest is obtained. FINDINGS: The ET tube is 3.2 cm above the marvel. The opacity in the left lung base obscuring the left heart border and the hemidiaphragm has decreased in the interval. The findings consistent with left lower lobe pneumonia and/or atelectasis and pleur al effusion. The heart and pulmonary vasculature are normal. There are postsurgical changes of cervical fusion. IMPRESSION: 1. ET tube 3.2 cm above the marvel. 2. Decreasing left lung acute cardiopulmonary process is described above. [facility], Workstation: [email or web address] 10/19/2024 7:04 AM
[2024-10-19] MEDS: FUROSEMIDE 10 MG/ML 4 ML VIAL IV STA (08:45)
[2024-10-19 08:52] LABS: Glucose,Whole Blood 188 mg/dL (70-110)
--- NOTE | 2024-10-19 09:02 | P.PN ---
Subjective Progress Note Date: 10/19/24 PROGRESS NOTE The patient is a 64-year-old male with known history of CAD status post stenting of the left circumflex with in-stent restenosis in 2021, treated medically who presented with change in mental status, unresponsiveness, fall most likely related to chronic alcoholism. He was intubated and subsequently extubated. He had episodes of paroxysmal atrial fibrillation and has maintained sinus mech anism until yesterday when he went in atrial fibrillation. He is back in sinus mechanism at this time. Hemodynamically stable. On no vasopressors. He is on the BiPAP. He is blood pressure is stable. He had a recent septic knee arthritis with staph bacteremia. His echocardiogram on presentation showed an ejection fraction of 45 to 50% with mild mitral and tricuspid regurgitation. His right-sided pressure was 38 mmHg. October 18: The patient continues to be on BiPAP. He underwent thoracentesis of the right side yesterday. He continues to be dyspneic on nasal cannula. He continues to be in sinus mechanism on IV amiodarone. There is no symptoms of chest comfort. He is awake and following command. He denies any nausea or vomiting. Hemodynamically he is stable on no vasopressors. Still not able to take p.o. October 19: The patient is intubated, sedated, in sinus mechanism. He had bronchoscopy with removal of mucous plug and had evidence of pneumonia. Hemodynamically he is stable, continues to be in sinus mechanism. There is no evidence of recurrent atrial fibrillation or ventricular tachycardia. He has episode of hypotension, requiring norepinephrine. His urinary output has been stable. Medications: IV amiodarone, insulin, vancomycin. IV heparin, DuoNeb, IV Protonix, nor epinephrine. PHYSICAL EXAMINATION: Blood pressure 129/50 heart rate 68, intubated and sedated LUNGS: Clear to auscultation anteriorly HEART: Regular rate and rhythm, S1, S2. No S3. Systolic ejection murmur ABDOMEN: Soft, no organomegaly EXTREMETIES: +1 edema LAB: Hemoglobin 7.1, platelets count 253 2, Potassium 4.9., BUN 40, creatinine 1.43 IMPRESSION: 1. Paroxysmal atrial fibrillation, back in sinus mechanism 2. Encephalopathy on presentation, probably combination of septic shock and alcoholism 3. Respiratory failure, requiring mechanical ventilation with pneumonia and muc ous plug 4. Septic arthritis 5. History of CAD, stable 6. Thrombocytopenia, resolved. 7. Mild cardiomyopathy 8. Chronic alcohol intake 9. History of diabetes PLAN: 1. Continue IV amiodarone for now 2. Continue IV heparin 3. Wean norepinephrine as tolerated 4. Follow renal functions 5. Continue mechanical ventilation for now 6. Depending on his progress further recommendations will be made Objective - Vital Signs Vital signs: Vital Signs Temp 98.9 F 10/19/24 04:00 Pulse 68 10/19/24 08:08 Resp 20 10/19/24 08:08 BP 124/66 10/19/24 07:00 Pulse Ox 99 10/19/24 07:00 FiO2 60 10/19/24 07:48 Intake & Output 10/18/24 10/19/24 10/19/24 18:59 06:59 18:59 Intake Total 2601.791 2000.479 205.08 Output Total 575 830 75 Balance 2026.791 1170.479 130.08 Weight 92.9 kg 93.6 kg Intake: IV 689 968 88 0.9NS 50 110 10 Dextrose 5% in Water 1, 600 000 ml @ 50 mls/hr IV . Q20H [facility] Rx#:[id number] Dextrose 5% in Water 1, 75 000 ml @ 75 mls/hr IV . [id number] [facility] Rx#:[id number] Dextrose 5% in Water 1, 675 000 ml @ 75 mls/hr IV . [id number] [facility] Rx#:[id number] Dextrose 5% in Water 1, 75 75 000 ml @ 75 mls/hr IV . [id number] [facility] Rx#:[id number] Pressure Bag 39 33 3 Intake, IV Titration 1812.791 742.479 97.08 Amount Amiodarone 450 mg In 245.283 250 Dextrose 5% in Water 250 ml @ 0.5 MG/MIN 16.667 mls/hr IV .Q15H [facility] Rx#: [id number] Cefepime 2 gm In Sodium 100 Chloride 0.9% 100 ml @ 25 mls/hr IVPB Q8HR [facility] Rx# :[id number] Dextrose 5% in Water 1, 375 000 ml @ 75 mls/hr IV . [id number] [facility] Rx#:[id number] Heparin Sod,Pork in 0.45% 128.481 121.519 NaCl 25,000 unit In 0.45 % NaCl 1 250ml.bag @ 18 UNITS/KG/HR 16.722 mls/hr IV .[id number] [facility] Rx#: [id number] Magnesium Sulfate-D5w Pmx 100 1 gm In Dextrose/Water 1 100ml.bag @ 100 mls/hr IVPB ONCE ONE Rx#: [id number] Norepinephrine 8 mg In 178.232 84.981 Sodium Chloride 0.9% 250 ml @ 0.03 MCG/KG/MIN 5. 393 mls/hr IV .Q24H [facility] Rx#:[id number] Potassium Chloride 20 meq 100 In Water For Injection 1 100ml.bag @ 50 mls/hr IVPB Q2H [facility] Rx#: [id number] Vancomycin 1,500 mg In 500 Sodium Chloride 0.9% 500 ml 500 ml @ 167 mls/hr IVPB Q12HR [facility] Rx#: [id number] propofoL 1,000 mg In 85.795 285.979 97.08 Empty Bag 1 bag @ 15 MCG/ KG/MIN 8.361 mls/hr IV . [id number] [facility] Rx#:[id number] Tube Feeding 100 200 20 Other 90 Output: Urine 575 830 75 Other: Voiding Method Indwelling Catheter Indwelling Catheter ABP, PAP, CO, CI - Last Documented Arterial Blood Pressure 129/46 - Labs CBC & Chem 7: 10/19/24 03:55 10/19/24 03:55 Labs: Abnormal Lab Results - Last 24 Hours (Table) 10/17/24 10/18/24 10/18/24 Range/Units 13:07 12:00 14:18 RBC (4.30-5.90) m/uL Hgb (13.0-17.5) gm/dL Hct (39.0-53.0) % MCV (80.0-100.0) fL MCH (25.0-35.0) pg Macrocytosis APTT (22.0-30.0) sec ABG pH 7.46 H (7.35-7.45) ABG pO2 43 L* (83-108) mmHg ABG HCO3 28 H (21-25) mmol/L ABG Total CO2 29 H (19-24) mmol/L ABG O2 Saturation 80.7 L (94-97) % Hemoglobin 7.8 L (13.0-17.5) gm/dL Chloride (98-107) mmol/L BUN (9-20) mg/dL Creatinine (0.66-1.25) mg/dL Glucose (74-99) mg/dL POC Glucose (mg/dL) 148 H (70-110) mg/dL Fluid Appearance Slightly Cloudy A (Clear) 10/18/24 10/18/24 10/18/24 Range/Units 15:46 16:55 17:27 RBC (4.30-5.90) m/uL Hgb (13.0-17.5) gm/dL Hct (39.0-53.0) % MCV (80.0-100.0) fL MCH (25.0-35.0) pg Macrocytosis APTT 109.1 H* (22.0-30.0) sec ABG pH (7.35-7.45) ABG pO2 (83-108) mmHg ABG HCO3 27 H (21-25) mmol/L ABG Total CO2 28 H (19-24) mmol/L ABG O2 Saturation 97.9 H (94-97) % Hemoglobin 7.6 L (13.0-17.5) gm/dL Chloride (98-107) mmol/L BUN (9-20) mg/dL Creatinine (0.66-1.25) mg/dL Glucose (74-99) mg/dL POC Glucose (mg/dL) 185 H (70-110) mg/dL Fluid Appearance (Clear) 10/18/24 10/18/24 10/18/24 Range/Units 20:35 23:21 23:22 RBC (4.30-5.90) m/uL Hgb (13.0-17.5) gm/dL Hct (39.0-53.0) % MCV (80.0-100.0) fL MCH (25.0-35.0) pg Macrocytosis APTT 62.7 H (22.0-30.0) sec ABG pH (7.35-7.45) ABG pO2 (83-108) mmHg ABG HCO3 (21-25) mmol/L ABG Total CO2 (19-24) mmol/L ABG O2 Saturation (94-97) % Hemoglobin (13.0-17.5) gm/dL Chloride (98-107) mmol/L BUN (9-20) mg/dL Creatinine (0.66-1.25) mg/dL Glucose (74-99) mg/dL POC Glucose (mg/dL) 245 H 223 H (70-110) mg/dL Fluid Appearance (Clear) 10/19/24 10/19/24 10/19/24 Range/Units 03:55 03:55 05:49 RBC 2.03 L (4.30-5.90) m/uL Hgb 7.1 L (13.0-17.5) gm/dL Hct 22.7 L (39.0-53.0) % MCV 112.1 H (80.0-100.0) fL MCH 35.3 H (25.0-35.0) pg Macrocytosis Marked A APTT (22.0-30.0) sec ABG pH 7.49 H (7.35-7.45) ABG pO2 (83-108) mmHg ABG HCO3 27 H (21-25) mmol/L ABG Total CO2 28 H (19-24) mmol/L ABG O2 Saturation 98.8 H (94-97) % Hemoglobin 7.1 L (13.0-17.5) gm/dL Chloride 117 H (98-107) mmol/L BUN 40 H (9-20) mg/dL Creatinine 1.43 H (0.66-1.25) mg/dL Glucose 176 H (74-99) mg/dL POC Glucose (mg/dL) (70-110) mg/dL Fluid Appearance (Clear) 10/19/24 10/19/24 Range/Units 05:52 06:15 RBC (4.30-5.90) m/uL Hgb (13.0-17.5) gm/dL Hct (39.0-53.0) % MCV (80.0-100.0) fL MCH (25.0-35.0) pg Macrocytosis APTT 63.3 H (22.0-30.0) sec ABG pH (7.35-7.45) ABG pO2 (83-108) mmHg ABG HCO3 (21-25) mmol/L ABG Total CO2 (19-24) mmol/L ABG O2 Saturation (94-97) % Hemoglobin (13.0-17.5) gm/dL Chloride (98-107) mmol/L BUN (9-20) mg/dL Creatinine (0.66-1.25) mg/dL Glucose (74-99) mg/dL POC Glucose (mg/dL) 193 H (70-110) mg/dL Fluid Appearance (Clear) Microbiology - Last 24 Hours (Table) 10/17/24 13:07 Gram Stain - Preliminary Pleural Fluid Body Fluid Culture - Preliminary 10/10/24 12:04 Fungal Culture - Preliminary Knee - Right 10/16/24 20:30 Gram Stain - Preliminary Sputum Sputum Culture - Preliminary Enterobacter aerogenes
--- NOTE | 2024-10-19 09:06 | P.PN ---
Subjective Patient is seen in follow-up for acute kidney injury. Renal function fairly stable. Intubated. On amiodarone drip for A-fib. On Levophed. Receiving tube feeds. Vital signs are stable. On vasopressor support. General: No acute distress. HEENT: Intubated. LUNGS: Scattered rhonchi. HEART: Rate and Rhythm are regular. ABDOMEN: No distention. EXTREMITITES: 2+ edema. Scrotal edema noted. Objective - Vital Signs Vital signs: Vital Signs Temp 98.9 F 10/19/24 04:00 Pulse 68 10/19/24 08:08 Resp 20 10/19/24 08:08 BP 124/66 10/19/24 07:00 Pulse Ox 99 10/19/24 07:00 FiO2 60 10/19/24 07:48 Intake & Output 10/18/24 10/19/24 10/19/24 18:59 06:59 18:59 Intake Total 2601.791 2000.479 205.08 Output Total 575 830 75 Balance 2026.791 1170.479 130.08 Weight 92.9 kg 93.6 kg Intake: IV 689 968 88 0.9NS 50 110 10 Dextrose 5% in Water 1, 600 000 ml @ 50 mls/hr IV . Q20H [facility] Rx#:[id number] Dextrose 5% in Water 1, 75 000 ml @ 75 mls/hr IV . [id number] [facility] Rx#:[id number] Dextrose 5% in Water 1, 675 000 ml @ 75 mls/hr IV . [id number] [facility] Rx#:[id number] Dextrose 5% in Water 1, 75 75 000 ml @ 75 mls/hr IV . [id number] [facility] Rx#:[id number] Pressure Bag 39 33 3 Intake, IV Titration 1812.791 742.479 97.08 Amount Amiodarone 450 mg In 245.283 250 Dextrose 5% in Water 250 ml @ 0.5 MG/MIN 16.667 mls/hr IV .Q15H [facility] Rx#: [id number] Cefepime 2 gm In Sodium 100 Chloride 0.9% 100 ml @ 25 mls/hr IVPB Q8HR [facility] Rx# :[id number] Dextrose 5% in Water 1, 375 000 ml @ 75 mls/hr IV . [id number] [facility] Rx#:[id number] Heparin Sod,Pork in 0.45% 128.481 121.519 NaCl 25,000 unit In 0.45 % NaCl 1 250ml.bag @ 18 UNITS/KG/HR 16.722 mls/hr IV .[id number] [facility] Rx#: [id number] Magnesium Sulfate-D5w Pmx 100 1 gm In Dextrose/Water 1 100ml.bag @ 100 mls/hr IVPB ONCE [facility] Rx#: [id number] Norepinephrine 8 mg In 178.232 84.981 Sodium Chloride 0.9% 250 ml @ 0.03 MCG/KG/MIN 5. 393 mls/hr IV .Q24H [facility] Rx#:[id number] Potassium Chloride 20 meq 100 In Water For Injection 1 100ml.bag @ 50 mls/hr IVPB Q2H [facility] Rx#: [id number] Vancomycin 1,500 mg In 500 Sodium Chloride 0.9% 500 ml 500 ml @ 167 mls/hr IVPB Q12HR [facility] Rx#: [id number] propofoL 1,000 mg In 85.795 285.979 97.08 Empty Bag 1 bag @ 15 MCG/ KG/MIN 8.361 mls/hr IV . [id number] [facility] Rx#:[id number] Tube Feeding 100 200 20 Other 90 Output: Urine 575 830 75 Other: Voiding Method Indwelling Catheter Indwelling Catheter ABP, PAP, CO, CI - Last Documented Arterial Blood Pressure 129/46 - Labs CBC & Chem 7: 10/19/24 03:55 10/19/24 03:55 Labs: Abnormal Lab Results - Last 24 Hours (Table) 10/17/24 10/18/24 10/18/24 Range/Units 13:07 12:00 14:18 RBC (4.30-5.90) m/uL Hgb (13.0-17.5) gm/dL Hct (39.0-53.0) % MCV (80.0-100.0) fL MCH (25.0-35.0) pg Macrocytosis APTT (22.0-30.0) sec ABG pH 7.46 H (7.35-7.45) ABG pO2 43 L* (83-108) mmHg ABG HCO3 28 H (21-25) mmol/L ABG Total CO2 29 H (19-24) mmol/L ABG O2 Saturation 80.7 L (94-97) % Hemoglobin 7.8 L (13.0-17.5) gm/dL Chloride (98-107) mmol/L BUN (9-20) mg/dL Creatinine (0.66-1.25) mg/dL Glucose (74-99) mg/dL POC Glucose (mg/dL) 148 H (70-110) mg/dL Fluid Appearance Slightly Cloudy A (Clear) 10/18/24 10/18/24 10/18/24 Range/Units 15:46 16:55 17:27 RBC (4.30-5.90) m/uL Hgb (13.0-17.5) gm/dL Hct (39.0-53.0) % MCV (80.0-100.0) fL MCH (25.0-35.0) pg Macrocytosis APTT 109.1 H* (22.0-30.0) sec ABG pH (7.35-7.45) ABG pO2 (83-108) mmHg ABG HCO3 27 H (21-25) mmol/L ABG Total CO2 28 H (19-24) mmol/L ABG O2 Saturation 97.9 H (94-97) % Hemoglobin 7.6 L (13.0-17.5) gm/dL Chloride (98-107) mmol/L BUN (9-20) mg/dL Creatinine (0.66-1.25) mg/dL Glucose (74-99) mg/dL POC Glucose (mg/dL) 185 H (70-110) mg/dL Fluid Appearance (Clear) 10/18/24 10/18/24 10/18/24 Range/Units 20:35 23:21 23:22 RBC (4.30-5.90) m/uL Hgb (13.0-17.5) gm/dL Hct (39.0-53.0) % MCV (80.0-100.0) fL MCH (25.0-35.0) pg Macrocytosis APTT 62.7 H (22.0-30.0) sec ABG pH (7.35-7.45) ABG pO2 (83-108) mmHg ABG HCO3 (21-25) mmol/L ABG Total CO2 (19-24) mmol/L ABG O2 Saturation (94-97) % Hemoglobin (13.0-17.5) gm/dL Chloride (98-107) mmol/L BUN (9-20) mg/dL Creatinine (0.66-1.25) mg/dL Glucose (74-99) mg/dL POC Glucose (mg/dL) 245 H 223 H (70-110) mg/dL Fluid Appearance (Clear) 10/19/24 10/19/24 10/19/24 Range/Units 03:55 03:55 05:49 RBC 2.03 L (4.30-5.90) m/uL Hgb 7.1 L (13.0-17.5) gm/dL Hct 22.7 L (39.0-53.0) % MCV 112.1 H (80.0-100.0) fL MCH 35.3 H (25.0-35.0) pg Macrocytosis Marked A APTT (22.0-30.0) sec ABG pH 7.49 H (7.35-7.45) ABG pO2 (83-108) mmHg ABG HCO3 27 H (21-25) mmol/L ABG Total CO2 28 H (19-24) mmol/L ABG O2 Saturation 98.8 H (94-97) % Hemoglobin 7.1 L (13.0-17.5) gm/dL Chloride 117 H (98-107) mmol/L BUN 40 H (9-20) mg/dL Creatinine 1.43 H (0.66-1.25) mg/dL Glucose 176 H (74-99) mg/dL POC Glucose (mg/dL) (70-110) mg/dL Fluid Appearance (Clear) 10/19/24 10/19/24 10/19/24 Range/Units 05:52 06:15 08:50 RBC (4.30-5.90) m/uL Hgb (13.0-17.5) gm/dL Hct (39.0-53.0) % MCV (80.0-100.0) fL MCH (25.0-35.0) pg Macrocytosis APTT 63.3 H (22.0-30.0) sec ABG pH (7.35-7.45) ABG pO2 (83-108) mmHg ABG HCO3 (21-25) mmol/L ABG Total CO2 (19-24) mmol/L ABG O2 Saturation (94-97) % Hemoglobin (13.0-17.5) gm/dL Chloride (98-107) mmol/L BUN (9-20) mg/dL Creatinine (0.66-1.25) mg/dL Glucose (74-99) mg/dL POC Glucose (mg/dL) 193 H 188 H (70-110) mg/dL Fluid Appearance (Clear) Microbiology - Last 24 Hours (Table) 10/18/24 15:00 Gram Stain - Preliminary Sputum 10/17/24 13:07 Gram Stain - Preliminary Pleural Fluid Body Fluid Culture - Preliminary 10/10/24 12:04 Fungal Culture - Preliminary Knee - Right 10/16/24 20:30 Gram Stain - Preliminary Sputum Sputum Culture - Preliminary Enterobacter aerogenes Assessment and Plan Plan: Assessment: 1. Acute kidney injury secondary to ATN secondary to septic shock and rhabdomyolysis. Creatinine 3.18 on admission and improved to 0.89 dated October 16, 2024 -stable in the range of 1.3-1.4 last 3 days. No hydronephrosis noted on kidney ultrasound. 2. Rhabdomyolysis secondary to immobility. Resolved. 3. Strep bacteremia on antibiotics. Being treated for pneumonia. Status post bronchoscopy October 18, 2024. 4. Anion gap metabolic acidosis secondary to acute kidney injury and lactic acidosis. Now due to IV fluids. Status post bicarb drip. 5. Hypernatremia from lack of oral water intake. Improving with D5W. 6. Hypomagnesemia from poor intake and alcohol abuse. Replaced. Improved. 7. History of alcohol abuse. 8. Hypocalcemia secondary to acute kidney injury as well as intracellular shifting from bicarb. Improved. On vitamin D. 9. A-fib with RVR maintained on amiodarone drip. 10. Volume overload. Plan: Maintain D5W. Lasix 40 mg IV once today. Avoid nephrotoxins. Continue to monitor renal function and urine output. Wean FiO2 and vasopressors.
[2024-10-19] MEDS: AMIODARONE 200 MG TAB PO SCH (10:26)
[2024-10-19 10:53] LABS: Magnesium 2.4 mg/dL (1.6-2.3)
[2024-10-19 12:06] LABS: Glucose,Whole Blood 210 mg/dL (70-110)
--- NOTE | 2024-10-19 12:51 | P.PN ---
Subjective Progress Note Date: 10/19/24 64-year-old male who is being seen in the ICU due to hypovolemic shock and rhabdomyolysis. He is a poor historian due to altered mental status and unresponsiveness. All history is obtained from the chart. He initially presented to the emergency department after being found facedown on the ground with a contusion to his forehead and abrasions to his knee and left toes. She stated that he had been having nausea and vomiting for a day prior to being found down. He was noted to have diarrhea as well. Patient is a daily drinker and consumes about a fifth per day according to the notes he has not drank for the 2 days prior to this admission. He also has a history of type 1 diabetes mellitus. Initial EKG showed sinus tachycardia. Head/cervical spine CT showed no acute intracranial process and no acute fracture or traumatic subluxation of the cervical spine. Initial chest x-ray showed right middle lobe scarring/atelectasis, no acute pulmonary process. He had received 4 L of normal saline. Initial labs showed CK level of 18,113, WBCs 10.7, hemoglobin 12.5, sodium 126, creatinine 3.18 lactic acid 6.9, AST 401, ALT 65. Preliminary blood culture showed gram-positive cocci and patient was started on vancomycin. 24-hour interval change 10/12/2024 -- Patient is evaluated in the ICU. He remains intubated on mechanical ventilation - ABG shows pH 7.42, pCO2 38, pO2 74. - He is maintained on vasopressin 0.02 units/min, normal saline at 20 cc/h, IV hydrocortisone 50 mg every 6 hours, and Kefzol day 5. Labs are reviewed WBCs 17.4, hemoglobin 8.2, hematocrit 25.2, platelets 53, sodium 142, potassium 3.7, chloride 116, CO2 23, BUN 39, creatinine 1.18, gluco se 258. Ionized calcium 4.4. Magnesium 1.8. Today's chest x-ray is unchanged. Wound culture gram stain of the right knee preliminary report shows rare gram positive cocci. 10/13/2024 Patient is seen and evaluated in ICU at bedside; remains on the mechanical ventilator. Discussed with nursing staff. Concerns about elevated blood sugars; patient was placed on home dose of Lantus which did not help much - Blood gases show pO2 72, pCO2 41, and pH is 7.42. - The patient is on propofol at 35 mcg/kg/min, saline at 20 cc an hour, and vital high-protein at 60, with goal of 70. Yesterday, he had a brief spontaneous breathing trial, and he did poorly. Today he will again have a spontaneous breathing trial, of pressure support of 5 and CPAP of 5. He continues on Ancef. White count 18.8, hemoglobin 8.2, hematocrit 25.8, platelet count 78,000. Sodium 144, potassium 4.1, chlorides 117, CO2 26, BUN 47, creatinine 1.18. Glucose is 340. Albumin is 2.1. Previous blood cultures from October 06 show group A streptococci. Chest x-ray shows bibasilar infiltrates. -- For hyperglycemia I will increase dose of Lantus and add insulin lispro every 4 hours; continue with current sliding scale 10/14/2024 Patient is seen in follow-up today continues on Precedex and attempting to wean maintained on mechanical ventilation with an FiO2 of 50% PEEP is 5. Per nursing staff attempting sedation holiday although did not go well yesterday. Patient is maintained on antibiotics with infectious disease following and patient is status post right knee aspiration with preliminary culture showing strep a with positive blood cultures. Patient continues with significant swelling especially the scrotal area maintained on IV Lasix and will continue. No discussion of PEG and trach as of yet and patient remains full code. Prognosis is guarded. 10/15/2024 Patient is seen this morning continues to be in the ICU currently working on weaning FiO2 and undergoing sedation holiday. Patient is eye tracking and following commands and per pulmonary clinical tech working on extubation today. Will await official report and monitor closely. Patient is continued on antibiotics with infectious disease following. 10/16/2024 Patient is seen in follow-up this morning extubated successfully currently maintained on 6 L high flow nasal cannula. Patient is awake and responding appropriately to questions and commands. Patient is extremely lethargic at times and significantly weak with significant edema noted. Sodium is elevated at 150 and is continued on D5 and water. Blood sugars have been elevated and will adjust insulins accordingly. Patient swallow eval performed and failed awaiting reevaluation with speech. Continue n.p.o. for now. White count remains elevated patient is maintained on antibiotics with infectious disease following. Awaiting repeat cultures. Procalcitonin 1.06. Questions and concerns were answered to the best of my ability with son at the bedside. 10/17/2024 Patient is evaluated today in follow up in the ICU. He was extubated yesterday. Continues on oxygen support on 100% BiPAP at this time. Cultures from the right knee arthroscopy reveals Strep A. Chest xray today reveals no change to the bibasilar opacities. Chest ultrasound reveals right pleural effusion pocket size 6.0 cm and left pleural effusion pocket size of 4.9 cm. Both sides marked for possible thoracentesis. Labs today reveal white blood cell count of 11.8, hgb 7. 5, sodium 146, potassium 3.4, BUN 43, creatinine 1.06. Blood glucose 200s. Continues on IV amiodarone, IV cefepime, IV vancomycin. Patient is in normal sinus rhythm currently heart rate in the 80s. 10/18/2024 Patient evaluated today in follow up in the ICU. He is awake alert oriented continues on BiPAP. He is status post right sided thoracentesis with 400 mL off. Chest xray today reveals stable bilateral lower lobe infiltrate and small pleural effusion. White blood cell count today 10.4. Continues on IV vancomycin and IV cefepime. Remains on IV amiodarone. on IV heparin. Patient remains NPO at this time, speech therapy to follow up today to reassess. 10/19/2024 Patient remains in the ICU. He is on the mechanical ventilator, FiO2 of 50%. Chest x-ray today shows left lower lobe pneumonia and/or atelectasis and pleural effusion. Elian in the left lung base is obscuring the left heart border and the hemidiaphragm has decreased in the interval. White blood cell count today is 8.4, hemoglobin 7.1, sodium 144, BUN of 40, creatinine of 1.43. His viral panel is negative for all viruses checked. Review of systems: Constitutional: No reports of fatigue, fever, or chills Cardiovascular: No reports of chest pain or palpitations Respiratory: reports of shortness of breath with a weak cough GI: No reports of nausea, vomiting, or diarrhea, reports to feeling hungry although having difficulty in swallowing : No reports of dysuria or retention Neurovascular: reports of generalized weakness and significant swelling of upper and lower extremities All medications have been reviewed Physical exam: Gen: This is a 64-year-old male who was recently extubated 10/15 continues on BiPAP support., well-developed, elderly appearing, ill-appearing, appears older than stated age HEENT: Head is atraumatic, normocephalic. Pupils equal, round. Sclerae is anicteric. NECK: Supple. No JVD. No lymphadenopathy. No thyromegaly. LUNGS: Diminished breath sounds bilaterally with some bronchial congestion and coarse scattered rhonchi. No intercostal retractions. HEART: S1, S2 are muffled ABDOMEN: Soft. Somewhat taut, positive bowel sounds are present. No masses. No tenderness. Significant scrotal edema noted, minimally improved EXTREMITIES: Bilateral upper and lower extremity edema noted. No calf tenderness. Generalized upper and lower extremity edema along with scrotal swelling noted NEUROLOGICAL: Patient is awake, alert and oriented x 2-3, diffusely weak Assessment: -Chronic alcohol abuse with acute alcohol withdrawal syndrome; CIWA protocol in place; patient remains on thiamine and Protonix. -Acute hypoxic respiratory failure was intubated following knee surgery on 10/10 and successfully extubated on 10/15/24. re-intubated on 10/18/2024 -Congestive heart failure with an EF of 45%, diastolic dysfunction -Paroxysmal atrial fibrillation transitioned to oral amiodarone Continues on IV heparin -Right sided pleural effusion status post right sided thoracentesis with 400 mL off. -Rhabdomyolysis secondary to immobility due to fall. Improving with IV hydratio n. We will continue to monitor strict STERLING's, daily weights, renal function electrolytes -Acute kidney injury secondary to ATN due to to septic shock and rhabdomyolysis. Improving; monitor renal function electrolytes; avoid nephrotoxins and hypotension. -Relative adrenal insufficiency. On IV hydrocortisone. -Transaminitis. Improving. -Streptococcus group A bacteremia. Currently on cefazolin per ID recommendation; continue to monitor CBC, CRP and procalcitonin. Possibly secondary to right knee infection -Right knee pain with swelling, status post aspiration along with arthroscopic lavage, culture showing strep a with septic arthritis -Hyponatremia, likely hypovolemic; resolved. -Now hypernatremic likely from free water deficit and continues on D5 water. -Type 1 diabetes mellitus; we will continue to monitor Accu-Cheks before every meal and at bedtime with insulin sliding scale. -History of coronary artery disease with previous catheterization and stent placement. -Hypertension; currently not on any antihypertensive medication. -Sepsis, present on admission possibly secondary to right knee arthritis with bacteremia GI prophylaxis DVT prophylaxis Full code Plan: Patient continues in the ICU with multiple consultations following maintained on IV antibiotics status post arthroscopy with lavage of the right knee and final cultures showing Strep A. Repeat blood cultures thus far are negative and will continue on IV antibiotics with ID following He is now s/p right sided thoracentesis with 400 mL of fluid off. Sent for cytology. Patient has been re-intubated. Sputum culture showing enterococcus Patient failed swallow eval and awaiting reevaluation with speech therapy, continue n.p.o. for now Blood sugars variable and uncontrolled will adjust insulins and continue with Accu-Cheks before meals and at bedtime as well as 2 AM and adjust long-acting Discussion was had with family at the bedside as well as patient and will likely need rehab on discharge. Patient will need PT/OT therapy evaluation once more stable Follow-up on repeat labs and monitor kidney functions and electrolytes closely. Sodium better at 144 and is maintained on D5 and water. Patient was given Lasix for generalized edema. Kidney function stable at this time. Overall prognosis remains guarded at this time The impression and plan of care has been dictated by Sharlene Pendleton, Nurse Practitioner as directed. Dr. Randall MD I have performed a history and physical examination and medical decision making of this patient, discussed the same with the dictator, and agree with the dictators assessment and plan as written, documented as a scribe. Based on total visit time, I have performed more than 50% of this visit. Objective - Vital Signs Vital signs: Vital Signs Temp 98.9 F 10/19/24 04:00 Pulse 68 10/19/24 08:08 Resp 20 10/19/24 08:08 BP 124/66 10/19/24 07:00 Pulse Ox 99 10/19/24 07:00 FiO2 50 10/19/24 09:23 Intake & Output 10/18/24 10/19/24 10/19/24 18:59 06:59 18:59 Intake Total 2601.791 2000.479 205.08 Output Total 575 830 75 Balance 2026.791 1170.479 130.08 Weight 92.9 kg 93.6 kg Intake: IV 689 968 88 0.9NS 50 110 10 Dextrose 5% in Water 1, 600 000 ml @ 50 mls/hr IV . Q20H [facility] Rx#:[id number] Dextrose 5% in Water 1, 75 000 ml @ 75 mls/hr IV . [id number] [facility] Rx#:[id number] Dextrose 5% in Water 1, 675 000 ml @ 75 mls/hr IV . [id number] [facility] Rx#:[id number] Dextrose 5% in Water 1, 75 75 000 ml @ 75 mls/hr IV . [id number] [facility] Rx#:[id number] Pressure Bag 39 33 3 Intake, IV Titration 1812.791 742.479 97.08 Amount Amiodarone 450 mg In 245.283 250 Dextrose 5% in Water 250 ml @ 0.5 MG/MIN 16.667 mls/hr IV .Q15H [facility] Rx#: [id number] Cefepime 2 gm In Sodium 100 Chloride 0.9% 100 ml @ 25 mls/hr IVPB Q8HR [facility] Rx# :[id number] Dextrose 5% in Water 1, 375 000 ml @ 75 mls/hr IV . [id number] [facility] Rx#:[id number] Heparin Sod,Pork in 0.45% 128.481 121.519 NaCl 25,000 unit In 0.45 % NaCl 1 250ml.bag @ 18 UNITS/KG/HR 16.722 mls/hr IV .[id number] [facility] Rx#: [id number] Magnesium Sulfate-D5w Pmx 100 1 gm In Dextrose/Water 1 100ml.bag @ 100 mls/hr IVPB ONCE [facility] Rx#: [id number] Norepinephrine 8 mg In 178.232 84.981 Sodium Chloride 0.9% 250 ml @ 0.03 MCG/KG/MIN 5. 393 mls/hr IV .Q24H [facility] Rx#:[id number] Potassium Chloride 20 meq 100 In Water For Injection 1 100ml.bag @ 50 mls/hr IVPB Q2H [facility] Rx#: [id number] Vancomycin 1,500 mg In 500 Sodium Chloride 0.9% 500 ml 500 ml @ 167 mls/hr IVPB Q12HR [facility] Rx#: [id number] propofoL 1,000 mg In 85.795 285.979 97.08 Empty Bag 1 bag @ 15 MCG/ KG/MIN 8.361 mls/hr IV . [id number] [facility] Rx#:[id number] Tube Feeding 100 200 20 Other 90 Output: Urine 575 830 75 Other: Voiding Method Indwelling Catheter Indwelling Catheter ABP, PAP, CO, CI - Last Documented Arterial Blood Pressure 129/46 - Labs CBC & Chem 7: 10/19/24 03:55 10/19/24 03:55 Labs: Abnormal Lab Results - Last 24 Hours (Table) 10/18/24 10/18/24 10/18/24 Range/Units 12:00 14:18 15:46 RBC (4.30-5.90) m/uL Hgb (13.0-17.5) gm/dL Hct (39.0-53.0) % MCV (80.0-100.0) fL MCH (25.0-35.0) pg Macrocytosis APTT (22.0-30.0) sec ABG pH 7.46 H (7.35-7.45) ABG pO2 43 L* (83-108) mmHg ABG HCO3 28 H 27 H (21-25) mmol/L ABG Total CO2 29 H 28 H (19-24) mmol/L ABG O2 Saturation 80.7 L 97.9 H (94-97) % Hemoglobin 7.8 L 7.6 L (13.0-17.5) gm/dL Chloride (98-107) mmol/L BUN (9-20) mg/dL Creatinine (0.66-1.25) mg/dL Glucose (74-99) mg/dL POC Glucose (mg/dL) 148 H (70-110) mg/dL 10/18/24 10/18/24 10/18/24 Range/Units 16:55 17:27 20:35 RBC (4.30-5.90) m/uL Hgb (13.0-17.5) gm/dL Hct (39.0-53.0) % MCV (80.0-100.0) fL MCH (25.0-35.0) pg Macrocytosis APTT 109.1 H* (22.0-30.0) sec ABG pH (7.35-7.45) ABG pO2 (83-108) mmHg ABG HCO3 (21-25) mmol/L ABG Total CO2 (19-24) mmol/L ABG O2 Saturation (94-97) % Hemoglobin (13.0-17.5) gm/dL Chloride (98-107) mmol/L BUN (9-20) mg/dL Creatinine (0.66-1.25) mg/dL Glucose (74-99) mg/dL POC Glucose (mg/dL) 185 H 245 H (70-110) mg/dL 10/18/24 10/18/24 10/19/24 Range/Units 23:21 23:22 03:55 RBC 2.03 L (4.30-5.90) m/uL Hgb 7.1 L (13.0-17.5) gm/dL Hct 22.7 L (39.0-53.0) % MCV 112.1 H (80.0-100.0) fL MCH 35.3 H (25.0-35.0) pg Macrocytosis Marked A APTT 62.7 H (22.0-30.0) sec ABG pH (7.35-7.45) ABG pO2 (83-108) mmHg ABG HCO3 (21-25) mmol/L ABG Total CO2 (19-24) mmol/L ABG O2 Saturation (94-97) % Hemoglobin (13.0-17.5) gm/dL Chloride (98-107) mmol/L BUN (9-20) mg/dL Creatinine (0.66-1.25) mg/dL Glucose (74-99) mg/dL POC Glucose (mg/dL) 223 H (70-110) mg/dL 10/19/24 10/19/24 10/19/24 Range/Units 03:55 05:49 05:52 RBC (4.30-5.90) m/uL Hgb (13.0-17.5) gm/dL Hct (39.0-53.0) % MCV (80.0-100.0) fL MCH (25.0-35.0) pg Macrocytosis APTT (22.0-30.0) sec ABG pH 7.49 H (7.35-7.45) ABG pO2 (83-108) mmHg ABG HCO3 27 H (21-25) mmol/L ABG Total CO2 28 H (19-24) mmol/L ABG O2 Saturation 98.8 H (94-97) % Hemoglobin 7.1 L (13.0-17.5) gm/dL Chloride 117 H (98-107) mmol/L BUN 40 H (9-20) mg/dL Creatinine 1.43 H (0.66-1.25) mg/dL Glucose 176 H (74-99) mg/dL POC Glucose (mg/dL) 193 H (70-110) mg/dL 10/19/24 10/19/24 Range/Units 06:15 08:50 RBC (4.30-5.90) m/uL Hgb (13.0-17.5) gm/dL Hct (39.0-53.0) % MCV (80.0-100.0) fL MCH (25.0-35.0) pg Macrocytosis APTT 63.3 H (22.0-30.0) sec ABG pH (7.35-7.45) ABG pO2 (83-108) mmHg ABG HCO3 (21-25) mmol/L ABG Total CO2 (19-24) mmol/L ABG O2 Saturation (94-97) % Hemoglobin (13.0-17.5) gm/dL Chloride (98-107) mmol/L BUN (9-20) mg/dL Creatinine (0.66-1.25) mg/dL Glucose (74-99) mg/dL POC Glucose (mg/dL) 188 H (70-110) mg/dL Microbiology - Last 24 Hours (Table) 10/18/24 15:00 Gram Stain - Preliminary Sputum 10/17/24 13:07 Gram Stain - Preliminary Pleural Fluid Body Fluid Culture - Preliminary 10/10/24 12:04 Fungal Culture - Preliminary Knee - Right 10/16/24 20:30 Gram Stain - Preliminary Sputum Sputum Culture - Preliminary Enterobacter aerogenes Assessment and Plan Time with Patient: Less than 30
--- NOTE | 2024-10-19 13:32 | P.PN ---
Subjective Progress Note Date: 10/19/24 Patient is a 64-year-old male who is being seen in the ICU due to hypovolemic shock and rhabdomyolysis. He is a poor historian due to altered mental status and unresponsiveness. All history is obtained from the chart. He initially presented to the emergency department after being found facedown on the ground with a contusion to his forehead and abrasions to his knee and left toes. She stated that he had been having nausea and vomiting for a day prior to being found down. He was noted to have diarrhea as well. Patient is a daily drinker and consumes about a fifth per day according to the notes he has not drank for the 2 days prior to this admission. He also has a history of type 1 diabetes mellitus. Initial EKG showed sinus tachycardia. Head/cervical spine CT showed no acute intracranial process and no acute fracture or traumatic subluxation of the cervical spine. Initial chest x-ray showed right middle lobe scarring/atelectasis, no acute pulmonary process. He had received 4 L of normal saline. Initial labs showed CK level of 18,113, WBCs 10.7, hemoglobin 12.5, sodium 126, creatinine 3.18 lactic acid 6.9, AST 401, ALT 65. Preliminary blood culture showed gram-positive cocci and patient was started on vancomycin. 10/07/2024. He is maintained on a bicarb drip as well as normal saline. He remains unresponsive to verbal stimulation. He is maintained on CIWA protocol. Labs today: WBCs 5.1, hemoglobin 11.6, sodium 126, potassium 3.8, BUN 53, creatinine 3.12, ammonia <9. Progress note dated October 08, 2024. 64-year-old male seen in room 252. I was notified by the nurse at nighttime, that the patient's blood pressure continued to drop. We bumped up his dose of n orepinephrine, and gave him a liter of fluid. In addition, his respiratory status was marginal, and the blood gas was ordered. The patient is currently on 6 L of oxygen. The patient was admitted on October 06. He is getting saline at 150 cc an hour, and Precedex at 0.4 mcg/kg/h. His norepinephrine is running at 31 mcg/min. There is staphylococci in his blood. I have asked the nurses to add Ativan Dilaudid and Haldol to his regimen, to try to wean him off the dexmedetomidine. White count of 9.1, hemoglobin hematocrit 29, platelet count 88,000. Sodium 131, potassium 3, chloride 92, CO2 32, BUN 50, creatinine 2.34. Glucose is 167. Calcium is 6.3. CK was 8796. AST is 507. ALT is 136. Albumin is 2.2. Blood cultures from the were positive for Streptococcus group A. Chest x-ray shows bilateral effusions, small, with low lung volumes. 10/09/2024. Patient seen as a followup. No acute events overnight. He is currently on 6 L of oxygen. He was on dextrose 5% - 0.9% NaCl, blood sugars have been in the mid to high 200s. He is receiving Kefzol for streptococcal group A bacteremia. Precedex has been turned off. Levophed is 0.3 mcg/kg/min. WBCs 12.3, hemoglobin 9.7, hematocrit 27.7, platelets 48. Sodium 133, potassium 3.7, chloride 105, CO2 19, BUN 42, creatinine 1.62. Glucose 267. Calcium 6.4. CK 3888. AST 323, ALT 78. Albumin 2.2. Today's chest x-ray showed cardiomegaly, pulmonary vascular congestion, and bilateral pleural effusions. 10/10/2024. Patient is being seen as a followup in the ICU. Overnight he went into A-fib with rapid ventricular rate, was started on an amiodarone drip at 1mg/min, and converted back to normal sinus rhythm. His pressures remain in the 100s/40s and pulses are He is currently on 15 L high flow oxygen. He is on no rmal saline at 150 cc/h. He is maintained on Kefzol for streptococcal group A bactermia, today is day 3. Levophed is at 0.11 mcg/kg/min, vasopressin at 0.02 mcg/kg/min. WBCs 16.4, hemoglobin 9.8, hematocrit 29.6, platelets 38. Sodium 138, potassium 3.5, chloride 112, CO2 23, BUN 35, creatinine 1.26, glucose 164. Ionized calcium 4.1. CK 988. AST 154, ALT 36. Cortisol 32. TSH 4.3830. In addition, he removed his NG tube overnight. Today's chest x-ray is unchanged from previous. He remains lethargic and barely responsive to verbal stimulation. 10/11/2024. Patient is seen in the ICU. He underwent arthroscopic lavage of the right knee yesterday evening and returned to the ICU intubated on mechanical ventilation. He is currently on assist-control mode with rate 18, tidal volume 450, FiO2 70%, PEEP 5. ABG shows pH 7.34, pCO2 37, pO2 95. He is maintained on vasopressin 0.02 units/min, Levophed 0.14 mcg/kg/min, normal saline at 100 cc/h, and Kefzol day 4. WBCs 18.1, hemoglobin 8.8, hematocrit 27.6, platelets 52, sodium 140, potassium 3.9, chloride 115, CO2 17, BUN 35, creatinine 1.08, glucose 191, creatinine kinase 215. Calcium 6.5. Magnesium 1.6. He began IV hydrocortisone 50 mg every 6 hours yesterday. Liver ultrasound performed yesterday revealed no acute process. Chest x-ray today is unchanged from previous. 10/12/2024. Patient is evaluated in the ICU. He remains intubated on mechanical ventilation on assist-control mode with rate 18, tidal volume 450, Fi O2 50%, PEEP 5. ABG shows pH 7.42, pCO2 38, pO2 74. His RSBI yesterday was 110 and he was unable to follow commands so he could not be extubated. He is maintained on vasopressin 0.02 units/min, normal saline at 20 cc/h, IV hydrocortisone 50 mg every 6 hours, and Kefzol day 5. WBCs 17.4, hemoglobin 8.2, hematocrit 25.2, platelets 53, sodium 142, potassium 3.7, chloride 116, CO2 23, BUN 39, creatinine 1.18, glucose 258. Ionized calcium 4.4. Magnesium 1.8. Today's chest x-ray is unchanged. Wound culture gram stain of the right knee preliminary report shows rare gram positive cocci. Progress note dated October 13, 2024. 64-year-old male seen in the intensive care unit, room 252. The patient remains on the mechanical ventilator. He is on volume assist-control, rate 18, tidal volume 450, FiO2 50%, PEEP of 5. Blood gases show pO2 72, pCO2 41, and pH is 7.42. The patient is on propofol at 35 mcg/kg/min, saline at 20 cc an hour, and vital high-protein at 60, with goal of 70. Yesterday, he had a brief spontaneous breathing trial, and he did poorly. Today he will again have a s pontaneous breathing trial, of pressure support of 5 and CPAP of 5. He continues on Ancef. White count 18.8, hemoglobin 8.2, hematocrit 25.8, platelet count 78,000. Sodium 144, potassium 4.1, chlorides 117, CO2 26, BUN 47, creatinine 1.18. Glucose is 340. Albumin is 2.1. Previous blood cultures from October 06 show group A streptococci. Chest x-ray shows bibasilar infiltrates. Today's evaluation of 10/14/2024, the patient is being seen for a follow-up. The patient remains intubated on mechanical ventilator. The patient remains encephalopathic. The patient has history of alcoholism and he was treated for alcohol withdrawal/delirium tremens. The patient was also found to be septic with septic right knee arthritis and secondary bacteremia sepsis with MSSA and the patient is postop day #4 following arthroscopic lavage and debridement of the right knee. The rhabdomyolysis has improved. The patient remains on broad- spectrum antibiotics and the patient remains on IV cefazolin. On today's evaluation, the patient remains sedated on propofol running at 30 mcg/kg/min. He is on the mechanical ventilator, assist-control mode with a rate of 18, tidal volume of 450, FiO2 of 30% with a PEEP of 5. The blood gas showed a pH of 7.49 with a pCO2 of 40 and pO2 of 73. The follow-up chest x-ray from this morning shows stable bilateral lower lobe pulmonary infiltrates. No other acute abnormalities have been noted on today's chest x-ray. Noted the patient has been off norepinephrine and off vasopressin. The patient is currently being diuresed with IV Lasix. The fluid balance over the past 24 hours is -1 L. Noted the patient was significantly in the past fluid balance as the patient was being resuscitated with IV fluids regarding his underlying septic shock. The patient remains on hydrocortisone stress dose. The patient remains on vital high-protein at rate of 70 cc an hour. Afebrile. Producing adequate amount of urine output. WBC count is at 16 with a hemoglobin 7.9 and a platelet count of 102. The platelet count has been improving steadily. The patient's BUN is 48 with a creatinine of 1.05. Sodium levels at 148, bicarb is at 30, glucose at 232, BUN is 48 with a creatinine of 1.05. CPK level has down trended. Alkaline phosphatase 555 with an AST of 44 and an ALT of 10. The cultures from the joints/right knee was positive for strep group A and the blood cultures showed a similar bacteria. On 10/15/2024, the patient remains intubated on the mechanical ventilator. This morning, the patient is on propofol at 30 mcg/kg/min. The patient was taken off the propofol yesterday and he was started on Precedex. He was following some simple commands. Nevertheless, he became restless and tachypneic and based on that, overnight, the patient was started back on propofol which is currently running at 30 mcg/kg/min. He remains on the mechanical ventilator, assist- control mode with rate of 22, tidal volume of 500, FiO2 50% with a PEEP of 5. Blood gas showed pH of 7.5 with a pCO2 of 43 and pO2 of 68. The patient is on IV fluids at KVO. He is receiving water 100 cc every 4 hours through the NG. The patient is on vital high-protein at rate of 70 cc an hour. He remains on IV Lasix 20 mg every 12 hours. The fluid balance over the past 24 hours is -1 L. The follow-up chest x-ray from today shows no significant interval change. The patient continues to have some stable bibasilar pulmonary filtrates and small effusions. Hemodynamically stable on no pressors. No other significant events overnight. He remains on IV cefazolin regarding his MSSA septicemia and septic arthritis. Remains on Levemir insulin 15 units twice daily and NovoLog sliding scale coverage. No agitation. The patient's white cell count is 15.4, hemoglobin 7.9, platelet is 118, sodium is at 151 with a potassium level of 3.2, BUN is 47 with a creatinine of 0.9.. 10/16/2024, the patient is being seen for a follow-up. The patient remains extubated, calm and comfortable. He is currently on 6 L of oxygen by nasal cannula. Overnight, the patient was briefly placed on a BiPAP pressure of 12/5 with an FiO2 40% for some increased shortness of breath and the patient is currently back on nasal cannula for now. Chest x-ray shows infiltrates in the lung bases bilaterally. Pneumonia is being considered. The patient accordingly was switched to a combination of cefepime and vancomycin. Meanwhile, the patient remains on D5 water at a rate of 75 cc an hour. Overnight, the patient was having episodes of hypoglycemia with a blood sugar as low as 49. Based on that, the Levemir insulin was discontinued. He also had purulence of atrial fibrillation with rapid ventricular response with a heart rate as high as 150. Currently is back in the normal sinus rhythm. His blood work shows a white cell count of 16, hemoglobin of 7.8 and a platelet count of 126. Sodium levels at 149, potassium is at 3.4, BUN is 37 with a creatinine of 0.8. His procalcitonin level is at 1.08. He was complaining of back pain. Based on his recent history of septic knee arthritis and staph bacteremia, MRI of the spine was also ordered by the orthopedic surgery to rule out any underlying epidural abscess. This will be done within next 24 to 48 hours once the patient is medically more stable. On 10/17/2024, the patient is being seen for a follow-up. The patient was extub ated on 10/15/2024. The patient was on 6 L of O2 nasal cannula. Earlier this morning, the patient became progressively more short of breath and hypoxic and placed on that the patient was placed on a BiPAP pressure of 14/8 with an FiO2 of 100%. His blood gases prior to that showed a pH of 7.47 with a pCO2 44 and pO2 of 45. A repeat chest x-ray from this morning shows evidence of increased opacities in the lung base bilaterally along with possibility of pleural effusions. Based on that, performed a bedside ultrasound and the patient was found to have a 6 cm pocket of fluid on the right and 4.9 cm on the left. I performed a bedside thoracentesis on the patient and the right-sided pleural effusion was evacuated without any complications. Total amount of fluid removed was 410 cc. The fluid will be sent for analysis. Meanwhile, the patient is kept on BiPAP. He remains on broad-spectrum antibiotics and antibiotic coverage includes a combination of cefepime and vancomycin. The patient also encountered episodes of atrial fibrillation. The patient was in rapid ventricular response and based on that the patient was given amiodarone bolus and started on amiodarone protocol and his current rhythm is back into normal sinus rhythm. He remains on D5 water with a sodium level of 146 and a potassium level of 3.4, BUN is 43 with a creatinine of 1. LFTs are normal. The white cell count is 11.8 with hemoglobin 7.5 with a platelet count of 173. He is profoundly weak. He has failed a swallow evaluation the patient remains NPO. On 10/18/2024, the patient is being seen for a follow-up. The patient remains short of breath, on a BiPAP at a pressure of 14 over 8 cm of water with FiO2 of 80%. The patient had a thoracentesis yesterday and a total of 400 cc of pleural fluid was aspirated from the right lung. Follow-up chest x-ray shows stable left basilar infiltrate and a small left-sided pleural effusion. Aeration in the right lung base is improved considerably. Limited bronchospasm and wheezing. Doppler of the lower extremity was done today and it shows no evidence of any DVT. The patient was given Lasix yesterday without any significant response. Fluid balance is -300 cc over the past 24 hours. Cardiac rhythm is sinus. Remains on bronchodilators. Remains on IV heparin. Remains on IV cefepime. Remains on amiodarone at 0.5 mg/min. Remains on Levemir insuli n 5 units daily twice daily and NovoLog sliding scale coverage. Remains n.p.o. as the patient failed a swallow evaluation the patient is currently on a BiPAP. Blood work from today shows a white cell count of 10.4, hemoglobin 7.8 and a platelet count of 202. Creatinine is at 1.34 with a BUN of 43. Sodium levels at 146 and a potassium level is at 3.9. Serum bicarb is at 31. He remains on normal saline at rate of 75 cc an hour. On 10/19/2024, the patient still being treated for extensive left lung pneumonia. The patient had a bronchoscopy yesterday and a repeat bronchoscopy was done today with therapeutic airway suctioning and removal of more mucous plugs from the left lung. This morning, he is on propofol running at 50 mcg/kg/min. He remains on mechanical ventilator, assist-control mode with rate of 20, tidal volume of 500, FiO2 of 60% with a PEEP of 10. Blood gas showed a pH of 7.49 with a pCO2 of 35 and pO2 of 101. The follow-up chest x-ray from today shows improvement in the aeration of the left lung and there is residual airspace disease and consolidation in the left lung base. The patient did encounter some hypotension. The patient was started on norepinephrine at 0.06 mcg/g/min. His cardiac rhythm is sinus. He remains on amiodarone drip at 0.5 mg/min and IV heparin. He remains on IV cefepime. He remains on enteral feeding for nutritional support with vital high-protein at rate of 20 cc an hour. He remains on D5 water at a rate of 75 cc an hour. His fluid balance is +3.9 L over the past 24 hours. White cell count of 8.4 with a hemoglobin 7.1 and a platelet count of 253. BUN is 40 with a creatinine of 1.4 and a sodium levels at 144. The earliest sputum sample was positive for Enterobacter aerogenes. Objective - Vital Signs Vital signs: Vital Signs Temp 98.9 F 10/19/24 04:00 Pulse 68 10/19/24 08:08 Resp 20 10/19/24 08:08 BP 124/66 10/19/24 07:00 Pulse Ox 99 10/19/24 07:00 FiO2 50 10/19/24 09:23 Intake & Output 10/18/24 10/19/24 10/19/24 18:59 06:59 18:59 Intake Total 2601.791 2000.479 205.08 Output Total 575 830 75 Balance 2026.791 1170.479 130.08 Weight 92.9 kg 93.6 kg Intake: IV 689 968 88 0.9NS 50 110 10 Dextrose 5% in Water 1, 600 000 ml @ 50 mls/hr IV . Q20H [facility] Rx#:[id number] Dextrose 5% in Water 1, 75 000 ml @ 75 mls/hr IV . [id number] [facility] Rx#:[id number] Dextrose 5% in Water 1, 675 000 ml @ 75 mls/hr IV . [id number] [facility] Rx#:[id number] Dextrose 5% in Water 1, 75 75 000 ml @ 75 mls/hr IV . [id number] [facility] Rx#:[id number] Pressure Bag 39 33 3 Intake, IV Titration 1812.791 742.479 97.08 Amount Amiodarone 450 mg In 245.283 250 Dextrose 5% in Water 250 ml @ 0.5 MG/MIN 16.667 mls/hr IV .Q15H [facility] Rx#: [id number] Cefepime 2 gm In Sodium 100 Chloride 0.9% 100 ml @ 25 mls/hr IVPB Q8HR [facility] Rx# :[id number] Dextrose 5% in Water 1, 375 000 ml @ 75 mls/hr IV . [id number] [facility] Rx#:[id number] Heparin Sod,Pork in 0.45% 128.481 121.519 NaCl 25,000 unit In 0.45 % NaCl 1 250ml.bag @ 18 UNITS/KG/HR 16.722 mls/hr IV .[id number] [facility] Rx#: [id number] Magnesium Sulfate-D5w Pmx 100 1 gm In Dextrose/Water 1 100ml.bag @ 100 mls/hr IVPB ONCE ONE Rx#: [id number] Norepinephrine 8 mg In 178.232 84.981 Sodium Chloride 0.9% 250 ml @ 0.03 MCG/KG/MIN 5. 393 mls/hr IV .Q24H [facility] Rx#:[id number] Potassium Chloride 20 meq 100 In Water For Injection 1 100ml.bag @ 50 mls/hr IVPB Q2H [facility] Rx#: [id number] Vancomycin 1,500 mg In 500 Sodium Chloride 0.9% 500 ml 500 ml @ 167 mls/hr IVPB Q12HR [facility] Rx#: [id number] propofoL 1,000 mg In 85.795 285.979 97.08 Empty Bag 1 bag @ 15 MCG/ KG/MIN 8.361 mls/hr IV . [id number] [facility] Rx#:[id number] Tube Feeding 100 200 20 Other 90 Output: Urine 575 830 75 Other: Voiding Method Indwelling Catheter Indwelling Catheter ABP, PAP, CO, CI - Last Documented Arterial Blood Pressure 129/46 - Exam The patient is awake and alert and extubated and the patient is currently on BiPAP at a pressure of 14/8 with an FiO2 of 80% Head exam was generally normal. There was no scleral icterus or corneal arcus. Mucous membranes were moist. Neck supple. Full range of motion. No adenopathy thyromegaly or neck vein dist ention. Cardiovascular examination reveals regular rhythm rate. S1-S2 normal. No S3 or S4. No discernible murmur noted. Lungs reveal mild scattered rhonchi. No wheezes or crackles. Breath sounds equal. Breath sounds are diminished in lung base bilaterally, improved following the right-sided thoracentesis Abdomen soft, without bowel sounds. No masses or tenderness. Extremities are intact. No cyanosis clubbing or edema. Right knee surgical wound site is dry clean and intact. Right knee is slightly swollen. No erythema. No tenderness. Skin reveals multiple abrasions and bruises. Neurologically, the patient is awake and alert and the patient does not have any focal neurological deficit. Cranial nerves are essentially intact. Profound generalized weakness in all 4 extremities. No focal neurological deficits. - Labs CBC & Chem 7: 10/19/24 03:55 10/19/24 03:55 Labs: Abnormal Lab Results - Last 24 Hours (Table) 10/17/24 10/18/24 10/18/24 Range/Units 13:07 12:00 14:18 RBC (4.30-5.90) m/uL Hgb (13.0-17.5) gm/dL Hct (39.0-53.0) % MCV (80.0-100.0) fL MCH (25.0-35.0) pg Macrocytosis APTT (22.0-30.0) sec ABG pH 7.46 H (7.35-7.45) ABG pO2 43 L* (83-108) mmHg ABG HCO3 28 H (21-25) mmol/L ABG Total CO2 29 H (19-24) mmol/L ABG O2 Saturation 80.7 L (94-97) % Hemoglobin 7.8 L (13.0-17.5) gm/dL Chloride (98-107) mmol/L BUN (9-20) mg/dL Creatinine (0.66-1.25) mg/dL Glucose (74-99) mg/dL POC Glucose (mg/dL) 148 H (70-110) mg/dL Fluid Appearance Slightly Cloudy A (Clear) 10/18/24 10/18/24 10/18/24 Range/Units 15:46 16:55 17:27 RBC (4.30-5.90) m/uL Hgb (13.0-17.5) gm/dL Hct (39.0-53.0) % MCV (80.0-100.0) fL MCH (25.0-35.0) pg Macrocytosis APTT 109.1 H* (22.0-30.0) sec ABG pH (7.35-7.45) ABG pO2 (83-108) mmHg ABG HCO3 27 H (21-25) mmol/L ABG Total CO2 28 H (19-24) mmol/L ABG O2 Saturation 97.9 H (94-97) % Hemoglobin 7.6 L (13.0-17.5) gm/dL Chloride (98-107) mmol/L BUN (9-20) mg/dL Creatinine (0.66-1.25) mg/dL Glucose (74-99) mg/dL POC Glucose (mg/dL) 185 H (70-110) mg/dL Fluid Appearance (Clear) 10/18/24 10/18/24 10/18/24 Range/Units 20:35 23:21 23:22 RBC (4.30-5.90) m/uL Hgb (13.0-17.5) gm/dL Hct (39.0-53.0) % MCV (80.0-100.0) fL MCH (25.0-35.0) pg Macrocytosis APTT 62.7 H (22.0-30.0) sec ABG pH (7.35-7.45) ABG pO2 (83-108) mmHg ABG HCO3 (21-25) mmol/L ABG Total CO2 (19-24) mmol/L ABG O2 Saturation (94-97) % Hemoglobin (13.0-17.5) gm/dL Chloride (98-107) mmol/L BUN (9-20) mg/dL Creatinine (0.66-1.25) mg/dL Glucose (74-99) mg/dL POC Glucose (mg/dL) 245 H 223 H (70-110) mg/dL Fluid Appearance (Clear) 10/19/24 10/19/24 10/19/24 Range/Units 03:55 03:55 05:49 RBC 2.03 L (4.30-5.90) m/uL Hgb 7.1 L (13.0-17.5) gm/dL Hct 22.7 L (39.0-53.0) % MCV 112.1 H (80.0-100.0) fL MCH 35.3 H (25.0-35.0) pg Macrocytosis Marked A APTT (22.0-30.0) sec ABG pH 7.49 H (7.35-7.45) ABG pO2 (83-108) mmHg ABG HCO3 27 H (21-25) mmol/L ABG Total CO2 28 H (19-24) mmol/L ABG O2 Saturation 98.8 H (94-97) % Hemoglobin 7.1 L (13.0-17.5) gm/dL Chloride 117 H (98-107) mmol/L BUN 40 H (9-20) mg/dL Creatinine 1.43 H (0.66-1.25) mg/dL Glucose 176 H (74-99) mg/dL POC Glucose (mg/dL) (70-110) mg/dL Fluid Appearance (Clear) 10/19/24 10/19/24 10/19/24 Range/Units 05:52 06:15 08:50 RBC (4.30-5.90) m/uL Hgb (13.0-17.5) gm/dL Hct (39.0-53.0) % MCV (80.0-100.0) fL MCH (25.0-35.0) pg Macrocytosis APTT 63.3 H (22.0-30.0) sec ABG pH (7.35-7.45) ABG pO2 (83-108) mmHg ABG HCO3 (21-25) mmol/L ABG Total CO2 (19-24) mmol/L ABG O2 Saturation (94-97) % Hemoglobin (13.0-17.5) gm/dL Chloride (98-107) mmol/L BUN (9-20) mg/dL Creatinine (0.66-1.25) mg/dL Glucose (74-99) mg/dL POC Glucose (mg/dL) 193 H 188 H (70-110) mg/dL Fluid Appearance (Clear) Microbiology - Last 24 Hours (Table) 10/18/24 15:00 Gram Stain - Preliminary Sputum 10/17/24 13:07 Gram Stain - Preliminary Pleural Fluid Body Fluid Culture - Preliminary 10/10/24 12:04 Fungal Culture - Preliminary Knee - Right 10/16/24 20:30 Gram Stain - Preliminary Sputum Sputum Culture - Preliminary Enterobacter aerogenes Assessment and Plan Plan: Encephalopathy, multifactorial. The patient had delirium tremens and subsequently patient was treated for septic shock. The patient's encephalopathy is improved and the patient is awake and alert and communicating. No focal neurological deficit. Acute hypoxic respiratory failure, the patient has been intubated on 10/10/2024 following his knee surgery and the patient remains intubated on the mechanical ventilator, chest x-ray is unchanged and the patient continues to have atelectatic changes and small infiltrates in the lung base bilaterally. The patient was extubated on 10/15/2024 and subsequently reintubated on 10/18/2024 for an extensive left lung pneumonia with mucous plugs. Bronchoscopy was done on 10/18/2024 and 10/19/2024 with removal of extensive mucous plugs from the left mainstem bronchus and the left lower lobe. The preliminary sputum culture is positive for Enterobacter aerogenes. Patient is currently on IV cefepime. Acute left lower lobe pneumonia with extensive mucous plugging Right-sided pleural effusion status postthoracentesis with removal of 400 cc of pleural fluid Bilateral lower lobe pulmonary filtrates, rule out pneumonia the patient remains on a combination of cefepime and vancomycin. Vancomycin trough is at 28 Septic shock, currently low-dose pressors with norepinephrine running at 0.06 mcg/kg/min Septic arthritis of the right knee secondary to strep group A in addition to a positive blood cultures with the same microorganism, currently on IV cefepime Back pain, rule out epidural abscess. MRI of the spine will be done at a later stage once the patient is medically more stable. Chronic alcohol abuse, with acute alcohol withdrawal syndrome, recovered Postop day # 9 for status post arthroscopy, with arthroscopic lavage and debridement of the right knee, partial medial meniscectomy and medial femoral condyle and medial tibial plateau chondroplasty. Status post fall, with rhabdomyolysis, secondary to immobility. Acute kidney injury, creatinine stable at 1. 4 Lactic acidosis, resolved. History of coronary artery disease, with previous catheterization and stent placement. CHF with mild impairment LV function with an ejection fraction of 45% Paroxysmal atrial fibrillation, current rhythm is sinus and the patient remains on amiodarone drip and IV heparin drip. Diabetes mellitus type I with episodes of hypoglycemia Gastroesophageal reflux disease. Hyperlipidemia. Hypertension. History of myocardial infarction. History of osteoarthritis. Plan: Continue propofol keep the patient on the mechanical ventilator for now. Dropped the respiratory rate down to 14. Dropped the FiO2 down to 50%. Continue PEEP at 10 Repeat bronchoscopy was done on 10/19/2024 with removal of more mucous plugs Continue IV cefepime Switch this patient to oral amiodarone and current cardiac rhythm is sinus Continue IV heparin Monitor renal function Continue D5 water Enteral feeding has been initiated Wean off pressors and discontinue Monitor fever pattern Change Levemir insulin to 5 units units nightly along with Scale insulin coverag e and watch for any signs of hypoglycemia MRI of the thoracic and lumbosacral spine was the patient is medically stable IV Protonix Monitor fluid balance PT evaluation Will continue to follow. This is a critical care evaluation that was done more than 30 minutes.
--- NOTE | 2024-10-19 13:34 | P.PCN ---
Date of Procedure: 10/19/24 Operative Findings: Preoperative Diagnosis: Acute hypoxic respiratory failure Bilateral pneumonia left more than right Postoperative Diagnosis: Same Procedure(s) Performed: Bronchoscopy, therapeutic airway suctioning, bronchoalveolar lavage Anesthesia: VINITAA Surgeon: Gilmar Omer Estimated Blood Loss (ml): 0 Pathology: other Condition: critical Disposition: ICU Operative Findings: Bronchoscopy and the bronchioloalveolar lavage Patient was intubated and placed on the mechanical ventilator. The procedure was done as the patient was being adequately oxygenated and ventilated. The patient was already sedated with propofol. The flexible bronchoscope was inserted through an adapter and passed through the endotracheal tube and was advanced into the lower trachea. There was copious amounts of thick purulent respiratory secretions encountered throughout the airway and the majority of the secretions of the mucous plugs were present in the distal trachea and the left mainstem bronchus. Noted the amount of mucous plugs were less compared to yesterday. Therapeutic airway suctioning was done. The right lung was essentially clear. Following that an airway inspection was done. The distal trachea, bilateral mainstem bronchi, right upper lobe bronchus, bronchus intermedius, right middle lobe and right lower lobe bronchus and the patient's 10 segments in the right and then left mainstem bronchus and the left upper and left lower lobe bronchi and the various 8 segments on the left were inspected. Some minimal residual secretions were identified left lower lobe segments and those were suctioned out without any major difficulties. The flexible bronchoscope was removed and the procedure was terminated. Necessary ventilator changes were done and the patient will be kept on antibiotics.
--- NOTE | 2024-10-19 14:55 | P.PN ---
Subjective Progress Note Date: 10/19/24 Principal diagnosis: Reason for follow-up is Streptococcus agalactiae bacteremia Patient is a 64-year-old male past medical history significant for diabetes mellitus hypertension hyperlipidemia [place] osteoarthritis coronary disease patient was brought into the hospital after apparently the patient was found to be facedown on the ground with contusion to his forehead and abrasion to his knee and some bloody toes, patient did have a fever subsequently blood cultures came back positive with Streptococcus agalactiae prompting this consultation. Patient noticed to have swelling of the right knee aspirate was purulent subsequently the patient did have a right knee washout completed by orthopedics on 10/10/2024. On today's evaluation that is 10/19/2024, the patient continues to be afebrile, the patient did have worsening of his respiratory status and got intubated pa tient is currently on 50% FiO2 patient is awake and responds to his name he is requiring some pressor support as reported by nursing staff or diarrhea has been reported. Patient white count is normal at 8.4, creatinine is 1.43 sputum is growing Enterobacter that is sensitive to cefepime chest x-ray this morning decreasing left lung acute cardiopulmonary disease process Objective - Vital Signs Vital signs: Vital Signs Temp 97.9 F 10/19/24 12:00 Pulse 81 10/19/24 13:00 Resp 19 10/19/24 13:00 BP 118/60 10/19/24 13:00 Pulse Ox 99 10/19/24 13:00 FiO2 50 10/19/24 12:00 Intake & Output 10/18/24 10/19/24 10/19/24 18:59 06:59 18:59 Intake Total 2601.791 1999.479 848.681 Output Total 575 830 420 Balance 2025.791 1170.479 428.681 Weight 92.9 kg 93.6 kg 93.6 kg Intake: IV 689 968 391 0.9 Normal Saline 50 110 45 Cefepime 2 gm In Sodium 100 Chloride 0.9% 100 ml @ 25 mls/hr IVPB Q8HR [facility] Rx# :[id number] Dextrose 5% in Water 1, 600 000 ml @ 50 mls/hr IV . Q20H [facility] Rx#:[id number] Dextrose 5% in Water 1, 75 000 ml @ 75 mls/hr IV . [id number] [facility] Rx#:[id number] Dextrose 5% in Water 1, 675 000 ml @ 75 mls/hr IV . [id number] [facility] Rx#:[id number] Dextrose 5% in Water 1, 75 225 000 ml @ 75 mls/hr IV . [id number] [facility] Rx#:[id number] Normal Saline Pressure 39 33 21 Bag Intake, IV Titration 1812.791 742.479 247.681 Amount Amiodarone 450 mg In 245.283 250 Dextrose 5% in Water 250 ml @ 0.5 MG/MIN 16.667 mls/hr IV .Q15H [facility] Rx#: [id number] Cefepime 2 gm In Sodium 100 Chloride 0.9% 100 ml @ 25 mls/hr IVPB Q8HR [facility] Rx# :[id number] Dextrose 5% in Water 1, 375 000 ml @ 75 mls/hr IV . [id number] [facility] Rx#:[id number] Heparin Sod,Pork in 0.45% 128.481 121.519 NaCl 25,000 unit In 0.45 % NaCl 1 250ml.bag @ 18 UNITS/KG/HR 16.722 mls/hr IV .[id number] [facility] Rx#: [id number] Magnesium Sulfate-D5w Pmx 100 1 gm In Dextrose/Water 1 100ml.bag @ 100 mls/hr IVPB [facility]CE [facility] Rx#: [id number] Norepinephrine 8 mg In 178.232 84.981 70.707 Sodium Chloride 0.9% 250 ml @ 0.03 MCG/KG/MIN 5. 393 mls/hr IV .Q24H [facility] Rx#:[id number] Potassium Chloride 20 meq 100 In Water For Injection 1 100ml.bag @ 50 mls/hr IVPB Q2H [facility] Rx#: [id number] Vancomycin 1,500 mg In 500 Sodium Chloride 0.9% 500 ml 500 ml @ 167 mls/hr IVPB Q12HR [facility] Rx#: [id number] propofoL 1,000 mg In 85.795 285.979 176.974 Empty Bag 1 bag @ 15 MCG/ KG/MIN 8.361 mls/hr IV . [id number] [facility] Rx#:[id number] Tube Feeding 100 200 150 Other 90 60 Output: Urine 575 830 420 Other: Voiding Method Indwelling Catheter Indwelling Catheter Indwelling Catheter ABP, PAP, CO, CI - Last Documented Arterial Blood Pressure 135/48 - Exam GENERAL DESCRIPTION: Middle-age male intubated on the vent RESPIRATORY SYSTEM: Unlabored breathing , decreased breath sounds at bases HEART: S1 S2 regular rate and rhythm , ABDOMEN: Soft , no tenderness EXTREMITIES: Swelling to the lower extremity and right knee but no redness - Labs CBC & Chem 7: 10/19/24 03:55 10/19/24 03:55 Labs: Abnormal Lab Results - Last 24 Hours (Table) 10/18/24 10/18/24 10/18/24 Range/Units 14:18 15:46 16:55 RBC (4.30-5.90) m/uL Hgb (13.0-17.5) gm/dL Hct (39.0-53.0) % MCV (80.0-100.0) fL MCH (25.0-35.0) pg Macrocytosis APTT 109.1 H* (22.0-30.0) sec ABG pH 7.46 H (7.35-7.45) ABG pO2 43 L* (83-108) mmHg ABG HCO3 28 H 27 H (21-25) mmol/L ABG Total CO2 29 H 28 H (19-24) mmol/L ABG O2 Saturation 80.7 L 97.9 H (94-97) % Hemoglobin 7.8 L 7.6 L (13.0-17.5) gm/dL Chloride (98-107) mmol/L BUN (9-20) mg/dL Creatinine (0.66-1.25) mg/dL Glucose (74-99) mg/dL POC Glucose (mg/dL) (70-110) mg/dL Magnesium (1.6-2.3) mg/dL 10/18/24 10/18/24 10/18/24 Range/Units 17:27 20:35 23:21 RBC (4.30-5.90) m/uL Hgb (13.0-17.5) gm/dL Hct (39.0-53.0) % MCV (80.0-100.0) fL MCH (25.0-35.0) pg Macrocytosis APTT 62.7 H (22.0-30.0) sec ABG pH (7.35-7.45) ABG pO2 (83-108) mmHg ABG HCO3 (21-25) mmol/L ABG Total CO2 (19-24) mmol/L ABG O2 Saturation (94-97) % Hemoglobin (13.0-17.5) gm/dL Chloride (98-107) mmol/L BUN (9-20) mg/dL Creatinine (0.66-1.25) mg/dL Glucose (74-99) mg/dL POC Glucose (mg/dL) 185 H 245 H (70-110) mg/dL Magnesium (1.6-2.3) mg/dL 10/18/24 10/19/24 10/19/24 Range/Units 23:22 03:55 03:55 RBC 2.03 L (4.30-5.90) m/uL Hgb 7.1 L (13.0-17.5) gm/dL Hct 22.7 L (39.0-53.0) % MCV 112.1 H (80.0-100.0) fL MCH 35.3 H (25.0-35.0) pg Macrocytosis Marked A APTT (22.0-30.0) sec ABG pH (7.35-7.45) ABG pO2 (83-108) mmHg ABG HCO3 (21-25) mmol/L ABG Total CO2 (19-24) mmol/L ABG O2 Saturation (94-97) % Hemoglobin (13.0-17.5) gm/dL Chloride 117 H (98-107) mmol/L BUN 40 H (9-20) mg/dL Creatinine 1.43 H (0.66-1.25) mg/dL Glucose 176 H (74-99) mg/dL POC Glucose (mg/dL) 223 H (70-110) mg/dL Magnesium 2.4 H (1.6-2.3) mg/dL 10/19/24 10/19/24 10/19/24 Range/Units 05:49 05:52 06:15 RBC (4.30-5.90) m/uL Hgb (13.0-17.5) gm/dL Hct (39.0-53.0) % MCV (80.0-100.0) fL MCH (25.0-35.0) pg Macrocytosis APTT 63.3 H (22.0-30.0) sec ABG pH 7.49 H (7.35-7.45) ABG pO2 (83-108) mmHg ABG HCO3 27 H (21-25) mmol/L ABG Total CO2 28 H (19-24) mmol/L ABG O2 Saturation 98.8 H (94-97) % Hemoglobin 7.1 L (13.0-17.5) gm/dL Chloride (98-107) mmol/L BUN (9-20) mg/dL Creatinine (0.66-1.25) mg/dL Glucose (74-99) mg/dL POC Glucose (mg/dL) 193 H (70-110) mg/dL Magnesium (1.6-2.3) mg/dL 10/19/24 10/19/24 Range/Units 08:50 12:05 RBC (4.30-5.90) m/uL Hgb (13.0-17.5) gm/dL Hct (39.0-53.0) % MCV (80.0-100.0) fL MCH (25.0-35.0) pg Macrocytosis APTT (22.0-30.0) sec ABG pH (7.35-7.45) ABG pO2 (83-108) mmHg ABG HCO3 (21-25) mmol/L ABG Total CO2 (19-24) mmol/L ABG O2 Saturation (94-97) % Hemoglobin (13.0-17.5) gm/dL Chloride (98-107) mmol/L BUN (9-20) mg/dL Creatinine (0.66-1.25) mg/dL Glucose (74-99) mg/dL POC Glucose (mg/dL) 188 H 210 H (70-110) mg/dL Magnesium (1.6-2.3) mg/dL Microbiology - Last 24 Hours (Table) 10/16/24 20:30 Gram Stain - Final Sputum Sputum Culture - Final Enterobacter aerogenes 10/18/24 15:00 Gram Stain - Preliminary Sputum 10/17/24 13:07 Gram Stain - Preliminary Pleural Fluid Body Fluid Culture - Preliminary 10/10/24 12:04 Fungal Culture - Preliminary Knee - Right Assessment and Plan (1) Sepsis Current Visit: Yes Status: Acute Code(s): A41.9 - SEPSIS, UNSPECIFIED [facility] SNOMED Code(s): 75673822 (2) Streptococcal bacteremia Current Visit: Yes Status: Acute Code(s): R78.81 - BACTEREMIA; B95.5 - UNSP STREPTOCOCCUS THE CAUSE OF DISEASES [facility] SNOM[facility] Code(s): 250116913825 Plan: 1patient presented to the hospital with sepsis in this patient who did have fever tachycardia elevated white count and now with evidence of streptococcal bacteremia which is usually of skin and soft tissue origin 2-patient noticed to have right knee effusion has been evaluated by orthopedics and is status post aspiration with purulent drainage subsequently did have right knee washout by orthopedic cultures are pending may need further workup including MRI of the spine when stable. Ortho is following the patient closely 3patient right knee fluid culture also came back positive with group A strep 4-patient did have left-sided pneumonia patient required reintubation and also status post bronchoscopy and lavage sputum culture growing Enterobacter that is sensitive to cefepime to continue antibiotic clinical course closely Dictation was produced using [employer] dictation software. please excuse any grammatical, word or spelling errors. Time with Patient: Less than 30
[2024-10-19] MEDS: bisacodyL 10 MG SUPP RECTAL PRN (17:08)
[2024-10-19 17:53] LABS: Glucose,Whole Blood 244 mg/dL (70-110)
[2024-10-19 20:05] LABS: Glucose,Whole Blood 280 mg/dL (70-110)
[2024-10-19 23:43] LABS: Glucose,Whole Blood 261 mg/dL (70-110)
[2024-10-20 05:44] LABS: ABG Base Excess 0.2 mmol/L; ABG HCO3 25 mmol/L (21-25); ABG PCO2 41 mmHg (35-45); ABG PO2 153 mmHg (83-108); ABG TCO2 26 mmol/L (19-24); Allen Test Performed? Yes
[2024-10-20 05:53] LABS: HCT 21.4 % (39.0-53.0); Hypochromasia Marked; MCH 35.9 pg (25.0-35.0); MCHC 31.4 g/dL (31.0-37.0); MCV 114.3 fL (80.0-100.0); Macrocytosis Marked; Mean Platelet Volume 9.6; Platelet Count 252 k/uL (150-450); RBC 1.88 m/uL (4.30-5.90); RDW 14.2 % (11.5-15.5); WBC 6.7 k/uL (3.8-10.6)
[2024-10-20 05:57] LABS: Glucose,Whole Blood 226 mg/dL (70-110)
[2024-10-20 05:57] LABS: HGB 6.7 gm/dL (13.0-17.5)
--- NOTE | 2024-10-20 06:35 | XR ---
EXAMINATION TYPE: XR chest 1V portable DATE OF EXAM: 10/20/2024 COMPARISON: 10/19/2024 CLINICAL INDICATION: Male, 64 years old with history of Tube placement; TECHNIQUE: Single frontal view of the chest is obtained. FINDINGS: The ET tube is 3.8 cm above the marvel. An NG tube within the stomach. The retrocardiac opacity persists and is essentially stable. The right lung remains clear. The heart size is normal. The pulmonary vasculature does not appear congested. There is no pneumothorax. IMPRESSION: 1. ET tube 3.8 cm above the marvel. NG tube within the stomach. 2. Acute cardiopulmonary disease involving the retrocardiac region with no significant interval [facility], , 10/20/2024 6:32 AM
[2024-10-20 06:46] LABS: African American GFR (CKD) 57 (>60 ml/min/1.73 sqM); Anion Gap 3 mmol/L; Blood Urea Nitrogen 39 mg/dL (9-20); Calcium 7.3 mg/dL (8.4-10.2); Carbon Dioxide 23 mmol/L (22-30); Chloride 115 mmol/L (98-107); Glucose 186 mg/dL (74-99); Non-African American GFR(CKD) 49 (>60 ml/min/1.73 sqM); Potassium 3.8 mmol/L (3.5-5.1); Sodium 141 mmol/L (137-145)
[2024-10-20] MEDS: POTASSIUM CHLORIDE 10 MEQ in WATER FOR INJECTION 1 100ML.BAG IVPB SCH (07:11)
--- NOTE | 2024-10-20 08:43 | P.PN ---
Subjective Progress Note Date: 10/20/24 PROGRESS NOTE The patient is a 64-year-old male with known history of CAD status post stenting of the left circumflex with in-stent restenosis in 2021, treated medically who presented with change in mental status, unresponsiveness, fall most likely related to chronic alcoholism. He was intubated and subsequently extubated. He had episodes of paroxysmal atrial fibrillation and has maintained sinus mech anism until yesterday when he went in atrial fibrillation. He is back in sinus mechanism at this time. Hemodynamically stable. On no vasopressors. He is on the BiPAP. He is blood pressure is stable. He had a recent septic knee arthritis with staph bacteremia. His echocardiogram on presentation showed an ejection fraction of 45 to 50% with mild mitral and tricuspid regurgitation. His right-sided pressure was 38 mmHg. October 18: The patient continues to be on BiPAP. He underwent thoracentesis of the right side yesterday. He continues to be dyspneic on nasal cannula. He continues to be in sinus mechanism on IV amiodarone. There is no symptoms of chest comfort. He is awake and following command. He denies any nausea or vomiting. Hemodynamically he is stable on no vasopressors. Still not able to take p.o. October 19: The patient is intubated, sedated, in sinus mechanism. He had bronchoscopy with removal of mucous plug and had evidence of pneumonia. Hemodynamically he is stable, continues to be in sinus mechanism. There is no evidence of recurrent atrial fibrillation or ventricular tachycardia. He has episode of hypotension, requiring norepinephrine. His urinary output has been stable. October 20: The patient remains intubated, he is following command. He continues to be in sinus mechanism and hemodynamically stable. His hemoglobin dropped and his heparin is being stopped. There is no evidence of malignant arrhythmia. He has peripheral edema. His chest x-ray shows improvement in the aeration on the left side. He had a large amount of mucus removed yesterday during bronchoscopy. He is on low-dose norepinephrine. His urine output is adequate. Medications: Amiodarone 200 mg p.o. twice daily, insulin, vancomycin. DuoNeb, IV Protonix, nor epinephrine. PHYSICAL EXAMINATION: Blood pressure 131/50 heart rate 74, intubated, following commands LUNGS: Clear to auscultation anteriorly HEART: Regular rate and rhythm, S1, S2. No S3. Systolic ejection murmur ABDOMEN: Soft, no organomegaly EXTREMETIES: +1 edema LAB: Hemoglobin 6.7, platelets count 252, potassium 3.8., BUN 39,, creatinine 1.51 IMPRESSION: 1. Paroxysmal atrial fibrillation, back in sinus mechanism 2. Encephalopathy on presentation, probably combination of septic shock and alc oholism 3. Respiratory failure, requiring mechanical ventilation with pneumonia and mucous plug 4. Septic arthritis 5. History of CAD, stable 6. Thrombocytopenia, resolved. 7. Mild cardiomyopathy 8. Chronic alcohol intake 9. History of diabetes 10. Anemia 11. Acute renal injury PLAN: 1. Stop IV heparin until source of bleeding is clear 2. Start low-dose beta-katja and add statin 3. Follow renal functions and hemoglobin 4. Wean norepinephrine as tolerated 5. Probable attempt to wean tomorrow 6. If hemoglobin stable restart aspirin because of prior history of CAD Objective - Vital Signs Vital signs: Vital Signs Temp 98.1 F 10/20/24 04:15 Pulse 74 10/20/24 07:00 Resp 18 10/20/24 07:00 BP 91/68 10/19/24 18:45 Pulse Ox 100 10/20/24 07:00 FiO2 40 10/20/24 08:18 Intake & Output 10/19/24 10/20/24 10/20/24 18:59 06:59 18:59 Intake Total 2689.207 7471.466 202.975 Output Total 670 610 30 Balance 593.214 634.466 172.975 Weight 93.6 kg 94.1 kg Intake: IV 431 220 13 0.9 Normal Saline 70 190 10 Cefepime 2 gm In Sodium 100 Chloride 0.9% 100 ml @ 25 mls/hr IVPB Q8HR [facility] Rx# :[id number] Dextrose 5% in Water 1, 225 000 ml @ 75 mls/hr IV . [id number] [facility] Rx#:[id number] Normal Saline Pressure 36 30 3 Bag Intake, IV Titration 442.214 564.466 149.975 Amount Heparin Sod,Pork in 0.45% 230.16 NaCl 25,000 unit In 0.45 % NaCl 1 250ml.bag @ 18 UNITS/KG/HR 16.722 mls/hr IV .[id number] [facility] Rx#: [id number] Norepinephrine 8 mg In 81.763 41.074 52.43 Sodium Chloride 0.9% 250 ml @ 0.03 MCG/KG/MIN 5. 393 mls/hr IV .Q24H [facility] Rx#:[id number] propofoL 1,000 mg In 360.451 293.232 97.545 Empty Bag 1 bag @ 15 MCG/ KG/MIN 8.361 mls/hr IV . [id number] [facility] Rx#:[id number] Tube Feeding 300 260 40 Other 90 200 Output: Urine 670 610 30 Other: Voiding Method Indwelling Catheter Indwelling Catheter ABP, PAP, CO, CI - Last Documented Arterial Blood Pressure 131/54 - Labs CBC & Chem 7: 10/20/24 04:15 10/20/24 04:15 Labs: Abnormal Lab Results - Last 24 Hours (Table) 10/19/24 10/19/24 10/19/24 Range/Units 03:55 08:50 12:05 RBC (4.30-5.90) m/uL Hgb (13.0-17.5) gm/dL Hct (39.0-53.0) % MCV (80.0-100.0) fL MCH (25.0-35.0) pg Macrocytosis APTT (22.0-30.0) sec ABG pO2 (83-108) mmHg ABG Total CO2 (19-24) mmol/L ABG O2 Saturation (94-97) % Hemoglobin (13.0-17.5) gm/dL Chloride 117 H (98-107) mmol/L BUN 40 H (9-20) mg/dL Creatinine 1.43 H (0.66-1.25) mg/dL Glucose 176 H (74-99) mg/dL POC Glucose (mg/dL) 188 H 210 H (70-110) mg/dL Calcium (8.4-10.2) mg/dL Magnesium 2.4 H (1.6-2.3) mg/dL Crossmatch 10/19/24 10/19/24 10/19/24 Range/Units 17:52 20:03 23:42 RBC (4.30-5.90) m/uL Hgb (13.0-17.5) gm/dL Hct (39.0-53.0) % MCV (80.0-100.0) fL MCH (25.0-35.0) pg Macrocytosis APTT (22.0-30.0) sec ABG pO2 (83-108) mmHg ABG Total CO2 (19-24) mmol/L ABG O2 Saturation (94-97) % Hemoglobin (13.0-17.5) gm/dL Chloride (98-107) mmol/L BUN (9-20) mg/dL Creatinine (0.66-1.25) mg/dL Glucose (74-99) mg/dL POC Glucose (mg/dL) 244 H 280 H 261 H (70-110) mg/dL Calcium (8.4-10.2) mg/dL Magnesium (1.6-2.3) mg/dL Crossmatch 10/20/24 10/20/24 10/20/24 Range/Units 04:15 04:15 05:00 RBC 1.88 L (4.30-5.90) m/uL Hgb 6.7 L* (13.0-17.5) gm/dL Hct 21.4 L (39.0-53.0) % MCV 114.3 H (80.0-100.0) fL MCH 35.9 H (25.0-35.0) pg Macrocytosis Marked A APTT 78.3 H (22.0-30.0) sec ABG pO2 (83-108) mmHg ABG Total CO2 (19-24) mmol/L ABG O2 Saturation (94-97) % Hemoglobin (13.0-17.5) gm/dL Chloride 115 H (98-107) mmol/L BUN 39 H (9-20) mg/dL Creatinine 1.51 H (0.66-1.25) mg/dL Glucose 186 H (74-99) mg/dL POC Glucose (mg/dL) (70-110) mg/dL Calcium 7.3 L (8.4-10.2) mg/dL Magnesium (1.6-2.3) mg/dL Crossmatch 10/20/24 10/20/24 10/20/24 Range/Units 05:41 05:57 06:25 RBC (4.30-5.90) m/uL Hgb (13.0-17.5) gm/dL Hct (39.0-53.0) % MCV (80.0-100.0) fL MCH (25.0-35.0) pg Macrocytosis APTT (22.0-30.0) sec ABG pO2 153 H (83-108) mmHg ABG Total CO2 26 H (19-24) mmol/L ABG O2 Saturation 100.0 H (94-97) % Hemoglobin 6.8 L* (13.0-17.5) gm/dL Chloride (98-107) mmol/L BUN (9-20) mg/dL Creatinine (0.66-1.25) mg/dL Glucose (74-99) mg/dL POC Glucose (mg/dL) 226 H (70-110) mg/dL Calcium (8.4-10.2) mg/dL Magnesium (1.6-2.3) mg/dL Crossmatch See Detail Microbiology - Last 24 Hours (Table) 10/17/24 13:07 Anaerobic Culture - Preliminary Pleural Fluid 10/17/24 13:07 Gram Stain - Preliminary Pleural Fluid Body Fluid Culture - Preliminary 10/16/24 20:30 Gram Stain - Final Sputum Sputum Culture - Final Enterobacter aerogenes 10/18/24 15:00 Gram Stain - Preliminary Sputum
[2024-10-20 09:07] LABS: Glucose,Whole Blood 243 mg/dL (70-110)
[2024-10-20] MEDS: METOPROLOL TARTRATE 12.5 MG TAB PO SCH (09:07)
[2024-10-20] MEDS: ATORVASTATIN 40 MG TAB PO SCH (09:07)
--- NOTE | 2024-10-20 09:14 | P.PN ---
Subjective Patient is seen in follow-up for acute kidney injury. Renal function fairly stable. Intubated. On Levophed. Receiving tube feeds. Scheduled to receive a unit of blood today. Vital signs are stable. On vasopressor support. General: No acute distress. HEENT: Intubated. LUNGS: Scattered rhonchi. HEART: Rate and Rhythm are regular. ABDOMEN: No distention. EXTREMITITES: 2+ edema. Scrotal edema noted. Objective - Vital Signs Vital signs: Vital Signs Temp 97.1 F L 10/20/24 08:44 Pulse 70 10/20/24 08:44 Resp 18 10/20/24 08:44 BP 91/68 10/20/24 08:44 Pulse Ox 100 10/20/24 08:44 FiO2 40 10/20/24 08:18 Intake & Output 10/19/24 10/20/24 10/20/24 18:59 06:59 18:59 Intake Total 7688.174 1057.466 214.150 Output Total 670 610 30 Balance 593.214 634.466 184.150 Weight 93.6 kg 94.1 kg Intake: IV 431 220 13 0.9 Normal Saline 70 190 10 Cefepime 2 gm In Sodium 100 Chloride 0.9% 100 ml @ 25 mls/hr IVPB Q8HR PITO Rx# :[id number] Dextrose 5% in Water 1, 225 000 ml @ 75 mls/hr IV . [id number] PITO Rx#:[id number] Normal Saline Pressure 36 30 3 Bag Intake, IV Titration 442.214 564.466 161.150 Amount Heparin Sod,Pork in 0.45% 230.16 NaCl 25,000 unit In 0.45 % NaCl 1 250ml.bag @ 18 UNITS/KG/HR 16.722 mls/hr IV .[id number] PITO Rx#: [id number] Norepinephrine 8 mg In 81.763 41.074 63.605 Sodium Chloride 0.9% 250 ml @ 0.03 MCG/KG/MIN 5. 393 mls/hr IV .Q24H PITO Rx#:[id number] propofoL 1,000 mg In 360.451 293.232 97.545 Empty Bag 1 bag @ 15 MCG/ KG/MIN 8.361 mls/hr IV . [id number] PITO Rx#:[id number] Tube Feeding 300 260 40 Blood Product 0 Unit 0 Other 90 200 Output: Urine 670 610 30 Other: Voiding Method Indwelling Catheter Indwelling Catheter ABP, PAP, CO, CI - Last Documented Arterial Blood Pressure 131/54 - Labs CBC & Chem 7: 10/20/24 04:15 10/20/24 04:15 Labs: Abnormal Lab Results - Last 24 Hours (Table) 10/19/24 10/19/24 10/19/24 Range/Units 03:55 12:05 17:52 RBC (4.30-5.90) m/uL Hgb (13.0-17.5) gm/dL Hct (39.0-53.0) % MCV (80.0-100.0) fL MCH (25.0-35.0) pg Macrocytosis APTT (22.0-30.0) sec ABG pO2 (83-108) mmHg ABG Total CO2 (19-24) mmol/L ABG O2 Saturation (94-97) % Hemoglobin (13.0-17.5) gm/dL Chloride 117 H (98-107) mmol/L BUN 40 H (9-20) mg/dL Creatinine 1.43 H (0.66-1.25) mg/dL Glucose 176 H (74-99) mg/dL POC Glucose (mg/dL) 210 H 244 H (70-110) mg/dL Calcium (8.4-10.2) mg/dL Magnesium 2.4 H (1.6-2.3) mg/dL Crossmatch 10/19/24 10/19/24 10/20/24 Range/Units 20:03 23:42 04:15 RBC (4.30-5.90) m/uL Hgb (13.0-17.5) gm/dL Hct (39.0-53.0) % MCV (80.0-100.0) fL MCH (25.0-35.0) pg Macrocytosis APTT (22.0-30.0) sec ABG pO2 (83-108) mmHg ABG Total CO2 (19-24) mmol/L ABG O2 Saturation (94-97) % Hemoglobin (13.0-17.5) gm/dL Chloride 115 H (98-107) mmol/L BUN 39 H (9-20) mg/dL Creatinine 1.51 H (0.66-1.25) mg/dL Glucose 186 H (74-99) mg/dL POC Glucose (mg/dL) 280 H 261 H (70-110) mg/dL Calcium 7.3 L (8.4-10.2) mg/dL Magnesium (1.6-2.3) mg/dL Crossmatch 10/20/24 10/20/24 10/20/24 Range/Units 04:15 05:00 05:41 RBC 1.88 L (4.30-5.90) m/uL Hgb 6.7 L* (13.0-17.5) gm/dL Hct 21.4 L (39.0-53.0) % MCV 114.3 H (80.0-100.0) fL MCH 35.9 H (25.0-35.0) pg Macrocytosis Marked A APTT 78.3 H (22.0-30.0) sec ABG pO2 153 H (83-108) mmHg ABG Total CO2 26 H (19-24) mmol/L ABG O2 Saturation 100.0 H (94-97) % Hemoglobin 6.8 L* (13.0-17.5) gm/dL Chloride (98-107) mmol/L BUN (9-20) mg/dL Creatinine (0.66-1.25) mg/dL Glucose (74-99) mg/dL POC Glucose (mg/dL) (70-110) mg/dL Calcium (8.4-10.2) mg/dL Magnesium (1.6-2.3) mg/dL Crossmatch 10/20/24 10/20/24 10/20/24 Range/Units 05:57 06:25 09:06 RBC (4.30-5.90) m/uL Hgb (13.0-17.5) gm/dL Hct (39.0-53.0) % MCV (80.0-100.0) fL MCH (25.0-35.0) pg Macrocytosis APTT (22.0-30.0) sec ABG pO2 (83-108) mmHg ABG Total CO2 (19-24) mmol/L ABG O2 Saturation (94-97) % Hemoglobin (13.0-17.5) gm/dL Chloride (98-107) mmol/L BUN (9-20) mg/dL Creatinine (0.66-1.25) mg/dL Glucose (74-99) mg/dL POC Glucose (mg/dL) 226 H 243 H (70-110) mg/dL Calcium (8.4-10.2) mg/dL Magnesium (1.6-2.3) mg/dL Crossmatch See Detail Microbiology - Last 24 Hours (Table) 10/17/24 13:07 Anaerobic Culture - Preliminary Pleural Fluid 10/17/24 13:07 Gram Stain - Preliminary Pleural Fluid Body Fluid Culture - Preliminary 10/16/24 20:30 Gram Stain - Final Sputum Sputum Culture - Final Enterobacter aerogenes 10/18/24 15:00 Gram Stain - Preliminary Sputum Assessment and Plan Plan: Assessment: 1. Acute kidney injury secondary to ATN secondary to septic shock and rhabdomyolysis. Creatinine 3.18 on admission and improved to 0.89 dated October 16, 2024 -fairly stable at 1.5 today. No hydronephrosis noted on kidney ultrasound. 2. Rhabdomyolysis secondary to immobility. Resolved. 3. Strep bacteremia on antibiotics. Being treated for pneumonia. Status post bronchoscopy October 18, 2024. 4. Anion gap metabolic acidosis secondary to acute kidney injury and lactic acidosis. Now due to IV fluids. Status post bicarb drip. 5. Hypernatremia from lack of oral water intake. Improving with D5W. 6. Hypomagnesemia from poor intake and alcohol abuse. Replaced. Improved. 7. History of alcohol abuse. 8. Hypocalcemia secondary to acute kidney injury as well as intracellular shifting from bicarb. PTH 112. Vitamin D level 26.5. On vitamin D. Corrected calcium in the normal range. 9. A-fib with RVR maintained on amiodarone drip. 10. Volume overload. 11. Acute blood loss anemia scheduled receive a unit of blood today. Plan: Add IV Lasix 40 mg daily. Avoid nephrotoxins. Continue to monitor renal function and urine output. Wean FiO2 and vasopressors. Potassium being replaced.
[2024-10-20] MEDS: FUROSEMIDE 10 MG/ML 4 ML VIAL IV SCH (11:36)
[2024-10-20 11:38] LABS: Glucose,Whole Blood 252 mg/dL (70-110)
--- NOTE | 2024-10-20 12:06 | P.PN ---
Subjective Progress Note Date: 10/20/24 Patient is a 64-year-old male who is being seen in the ICU due to hypovolemic shock and rhabdomyolysis. He is a poor historian due to altered mental status and unresponsiveness. All history is obtained from the chart. He initially presented to the emergency department after being found facedown on the ground with a contusion to his forehead and abrasions to his knee and left toes. She stated that he had been having nausea and vomiting for a day prior to being found down. He was noted to have diarrhea as well. Patient is a daily drinker and consumes about a fifth per day according to the notes he has not drank for the 2 days prior to this admission. He also has a history of type 1 diabetes mellitus. Initial EKG showed sinus tachycardia. Head/cervical spine CT showed no acute intracranial process and no acute fracture or traumatic subluxation of the cervical spine. Initial chest x-ray showed right middle lobe scarring/atelectasis, no acute pulmonary process. He had received 4 L of normal saline. Initial labs showed CK level of 18,113, WBCs 10.7, hemoglobin 12.5, sodium 126, creatinine 3.18 lactic acid 6.9, AST 401, ALT 65. Preliminary blood culture showed gram-positive cocci and patient was started on vancomycin. 10/07/2024. He is maintained on a bicarb drip as well as normal saline. He remains unresponsive to verbal stimulation. He is maintained on CIWA protocol. Labs today: WBCs 5.1, hemoglobin 11.6, sodium 126, potassium 3.8, BUN 53, creatinine 3.12, ammonia <9. Progress note dated October 08, 2024. 64-year-old male seen in room 252. I was notified by the nurse at nighttime, that the patient's blood pressure continued to drop. We bumped up his dose of n orepinephrine, and gave him a liter of fluid. In addition, his respiratory status was marginal, and the blood gas was ordered. The patient is currently on 6 L of oxygen. The patient was admitted on October 06. He is getting saline at 150 cc an hour, and Precedex at 0.4 mcg/kg/h. His norepinephrine is running at 31 mcg/min. There is staphylococci in his blood. I have asked the nurses to add Ativan Dilaudid and Haldol to his regimen, to try to wean him off the dexmedetomidine. White count of 9.1, hemoglobin hematocrit 29, platelet count 88,000. Sodium 131, potassium 3, chloride 92, CO2 32, BUN 50, creatinine 2.34. Glucose is 167. Calcium is 6.3. CK was 8796. AST is 507. ALT is 136. Albumin is 2.2. Blood cultures from the were positive for Streptococcus group A. Chest x-ray shows bilateral effusions, small, with low lung volumes. 10/09/2024. Patient seen as a followup. No acute events overnight. He is currently on 6 L of oxygen. He was on dextrose 5% - 0.9% NaCl, blood sugars have been in the mid to high 200s. He is receiving Kefzol for streptococcal group A bacteremia. Precedex has been turned off. Levophed is 0.3 mcg/kg/min. WBCs 12.3, hemoglobin 9.7, hematocrit 27.7, platelets 48. Sodium 133, potassium 3.7, chloride 105, CO2 19, BUN 42, creatinine 1.62. Glucose 267. Calcium 6.4. CK 3888. AST 323, ALT 78. Albumin 2.2. Today's chest x-ray showed cardiomegaly, pulmonary vascular congestion, and bilateral pleural effusions. 10/10/2024. Patient is being seen as a followup in the ICU. Overnight he went into A-fib with rapid ventricular rate, was started on an amiodarone drip at 1mg/min, and converted back to normal sinus rhythm. His pressures remain in the 100s/40s and pulses are He is currently on 15 L high flow oxygen. He is on no rmal saline at 150 cc/h. He is maintained on Kefzol for streptococcal group A bactermia, today is day 3. Levophed is at 0.11 mcg/kg/min, vasopressin at 0.02 mcg/kg/min. WBCs 16.4, hemoglobin 9.8, hematocrit 29.6, platelets 38. Sodium 138, potassium 3.5, chloride 112, CO2 23, BUN 35, creatinine 1.26, glucose 164. Ionized calcium 4.1. CK 988. AST 154, ALT 36. Cortisol 32. TSH 4.3830. In addition, he removed his NG tube overnight. Today's chest x-ray is unchanged from previous. He remains lethargic and barely responsive to verbal stimulation. 10/11/2024. Patient is seen in the ICU. He underwent arthroscopic lavage of the right knee yesterday evening and returned to the ICU intubated on mechanical ventilation. He is currently on assist-control mode with rate 18, tidal volume 450, FiO2 70%, PEEP 5. ABG shows pH 7.34, pCO2 37, pO2 95. He is maintained on vasopressin 0.02 units/min, Levophed 0.14 mcg/kg/min, normal saline at 100 cc/h, and Kefzol day 4. WBCs 18.1, hemoglobin 8.8, hematocrit 27.6, platelets 52, sodium 140, potassium 3.9, chloride 115, CO2 17, BUN 35, creatinine 1.08, glucose 191, creatinine kinase 215. Calcium 6.5. Magnesium 1.6. He began IV hydrocortisone 50 mg every 6 hours yesterday. Liver ultrasound performed yesterday revealed no acute process. Chest x-ray today is unchanged from previous. 10/12/2024. Patient is evaluated in the ICU. He remains intubated on mechanical ventilation on assist-control mode with rate 18, tidal volume 450, Fi O2 50%, PEEP 5. ABG shows pH 7.42, pCO2 38, pO2 74. His RSBI yesterday was 110 and he was unable to follow commands so he could not be extubated. He is maintained on vasopressin 0.02 units/min, normal saline at 20 cc/h, IV hydrocortisone 50 mg every 6 hours, and Kefzol day 5. WBCs 17.4, hemoglobin 8.2, hematocrit 25.2, platelets 53, sodium 142, potassium 3.7, chloride 116, CO2 23, BUN 39, creatinine 1.18, glucose 258. Ionized calcium 4.4. Magnesium 1.8. Today's chest x-ray is unchanged. Wound culture gram stain of the right knee preliminary report shows rare gram positive cocci. Progress note dated October 13, 2024. 64-year-old male seen in the intensive care unit, room 252. The patient remains on the mechanical ventilator. He is on volume assist-control, rate 18, tidal volume 450, FiO2 50%, PEEP of 5. Blood gases show pO2 72, pCO2 41, and pH is 7.42. The patient is on propofol at 35 mcg/kg/min, saline at 20 cc an hour, and vital high-protein at 60, with goal of 70. Yesterday, he had a brief spontaneous breathing trial, and he did poorly. Today he will again have a s pontaneous breathing trial, of pressure support of 5 and CPAP of 5. He continues on Ancef. White count 18.8, hemoglobin 8.2, hematocrit 25.8, platelet count 78,000. Sodium 144, potassium 4.1, chlorides 117, CO2 26, BUN 47, creatinine 1.18. Glucose is 340. Albumin is 2.1. Previous blood cultures from October 06 show group A streptococci. Chest x-ray shows bibasilar infiltrates. Today's evaluation of 10/14/2024, the patient is being seen for a follow-up. The patient remains intubated on mechanical ventilator. The patient remains encephalopathic. The patient has history of alcoholism and he was treated for alcohol withdrawal/delirium tremens. The patient was also found to be septic with septic right knee arthritis and secondary bacteremia sepsis with MSSA and the patient is postop day #4 following arthroscopic lavage and debridement of the right knee. The rhabdomyolysis has improved. The patient remains on broad- spectrum antibiotics and the patient remains on IV cefazolin. On today's evaluation, the patient remains sedated on propofol running at 30 mcg/kg/min. He is on the mechanical ventilator, assist-control mode with a rate of 18, tidal volume of 450, FiO2 of 30% with a PEEP of 5. The blood gas showed a pH of 7.49 with a pCO2 of 40 and pO2 of 73. The follow-up chest x-ray from this morning shows stable bilateral lower lobe pulmonary infiltrates. No other acute abnormalities have been noted on today's chest x-ray. Noted the patient has been off norepinephrine and off vasopressin. The patient is currently being diuresed with IV Lasix. The fluid balance over the past 24 hours is -1 L. Noted the patient was significantly in the past fluid balance as the patient was being resuscitated with IV fluids regarding his underlying septic shock. The patient remains on hydrocortisone stress dose. The patient remains on vital high-protein at rate of 70 cc an hour. Afebrile. Producing adequate amount of urine output. WBC count is at 16 with a hemoglobin 7.9 and a platelet count of 102. The platelet count has been improving steadily. The patient's BUN is 48 with a creatinine of 1.05. Sodium levels at 148, bicarb is at 30, glucose at 232, BUN is 48 with a creatinine of 1.05. CPK level has down trended. Alkaline phosphatase 555 with an AST of 44 and an ALT of 10. The cultures from the joints/right knee was positive for strep group A and the blood cultures showed a similar bacteria. On 10/15/2024, the patient remains intubated on the mechanical ventilator. This morning, the patient is on propofol at 30 mcg/kg/min. The patient was taken off the propofol yesterday and he was started on Precedex. He was following some simple commands. Nevertheless, he became restless and tachypneic and based on that, overnight, the patient was started back on propofol which is currently running at 30 mcg/kg/min. He remains on the mechanical ventilator, assist- control mode with rate of 22, tidal volume of 500, FiO2 50% with a PEEP of 5. Blood gas showed pH of 7.5 with a pCO2 of 43 and pO2 of 68. The patient is on IV fluids at KVO. He is receiving water 100 cc every 4 hours through the NG. The patient is on vital high-protein at rate of 70 cc an hour. He remains on IV Lasix 20 mg every 12 hours. The fluid balance over the past 24 hours is -1 L. The follow-up chest x-ray from today shows no significant interval change. The patient continues to have some stable bibasilar pulmonary filtrates and small effusions. Hemodynamically stable on no pressors. No other significant events overnight. He remains on IV cefazolin regarding his MSSA septicemia and septic arthritis. Remains on Levemir insulin 15 units twice daily and NovoLog sliding scale coverage. No agitation. The patient's white cell count is 15.4, hemoglobin 7.9, platelet is 118, sodium is at 151 with a potassium level of 3.2, BUN is 47 with a creatinine of 0.9.. 10/16/2024, the patient is being seen for a follow-up. The patient remains extubated, calm and comfortable. He is currently on 6 L of oxygen by nasal cannula. Overnight, the patient was briefly placed on a BiPAP pressure of 12/5 with an FiO2 40% for some increased shortness of breath and the patient is currently back on nasal cannula for now. Chest x-ray shows infiltrates in the lung bases bilaterally. Pneumonia is being considered. The patient accordingly was switched to a combination of cefepime and vancomycin. Meanwhile, the patient remains on D5 water at a rate of 75 cc an hour. Overnight, the patient was having episodes of hypoglycemia with a blood sugar as low as 49. Based on that, the Levemir insulin was discontinued. He also had purulence of atrial fibrillation with rapid ventricular response with a heart rate as high as 150. Currently is back in the normal sinus rhythm. His blood work shows a white cell count of 16, hemoglobin of 7.8 and a platelet count of 126. Sodium levels at 149, potassium is at 3.4, BUN is 37 with a creatinine of 0.8. His procalcitonin level is at 1.08. He was complaining of back pain. Based on his recent history of septic knee arthritis and staph bacteremia, MRI of the spine was also ordered by the orthopedic surgery to rule out any underlying epidural abscess. This will be done within next 24 to 48 hours once the patient is medically more stable. On 10/17/2024, the patient is being seen for a follow-up. The patient was extub ated on 10/15/2024. The patient was on 6 L of O2 nasal cannula. Earlier this morning, the patient became progressively more short of breath and hypoxic and placed on that the patient was placed on a BiPAP pressure of 14/8 with an FiO2 of 100%. His blood gases prior to that showed a pH of 7.47 with a pCO2 44 and pO2 of 45. A repeat chest x-ray from this morning shows evidence of increased opacities in the lung base bilaterally along with possibility of pleural effusions. Based on that, performed a bedside ultrasound and the patient was found to have a 6 cm pocket of fluid on the right and 4.9 cm on the left. I performed a bedside thoracentesis on the patient and the right-sided pleural effusion was evacuated without any complications. Total amount of fluid removed was 410 cc. The fluid will be sent for analysis. Meanwhile, the patient is kept on BiPAP. He remains on broad-spectrum antibiotics and antibiotic coverage includes a combination of cefepime and vancomycin. The patient also encountered episodes of atrial fibrillation. The patient was in rapid ventricular response and based on that the patient was given amiodarone bolus and started on amiodarone protocol and his current rhythm is back into normal sinus rhythm. He remains on D5 water with a sodium level of 146 and a potassium level of 3.4, BUN is 43 with a creatinine of 1. LFTs are normal. The white cell count is 11.8 with hemoglobin 7.5 with a platelet count of 173. He is profoundly weak. He has failed a swallow evaluation the patient remains NPO. On 10/18/2024, the patient is being seen for a follow-up. The patient remains short of breath, on a BiPAP at a pressure of 14 over 8 cm of water with FiO2 of 80%. The patient had a thoracentesis yesterday and a total of 400 cc of pleural fluid was aspirated from the right lung. Follow-up chest x-ray shows stable left basilar infiltrate and a small left-sided pleural effusion. Aeration in the right lung base is improved considerably. Limited bronchospasm and wheezing. Doppler of the lower extremity was done today and it shows no evidence of any DVT. The patient was given Lasix yesterday without any significant response. Fluid balance is -300 cc over the past 24 hours. Cardiac rhythm is sinus. Remains on bronchodilators. Remains on IV heparin. Remains on IV cefepime. Remains on amiodarone at 0.5 mg/min. Remains on Levemir insuli n 5 units daily twice daily and NovoLog sliding scale coverage. Remains n.p.o. as the patient failed a swallow evaluation the patient is currently on a BiPAP. Blood work from today shows a white cell count of 10.4, hemoglobin 7.8 and a platelet count of 202. Creatinine is at 1.34 with a BUN of 43. Sodium levels at 146 and a potassium level is at 3.9. Serum bicarb is at 31. He remains on normal saline at rate of 75 cc an hour. On 10/19/2024, the patient still being treated for extensive left lung pneumonia. The patient had a bronchoscopy yesterday and a repeat bronchoscopy was done today with therapeutic airway suctioning and removal of more mucous plugs from the left lung. This morning, he is on propofol running at 50 mcg/kg/min. He remains on mechanical ventilator, assist-control mode with rate of 20, tidal volume of 500, FiO2 of 60% with a PEEP of 10. Blood gas showed a pH of 7.49 with a pCO2 of 35 and pO2 of 101. The follow-up chest x-ray from today shows improvement in the aeration of the left lung and there is residual airspace disease and consolidation in the left lung base. The patient did encounter some hypotension. The patient was started on norepinephrine at 0.06 mcg/g/min. His cardiac rhythm is sinus. He remains on amiodarone drip at 0.5 mg/min and IV heparin. He remains on IV cefepime. He remains on enteral feeding for nutritional support with vital high-protein at rate of 20 cc an hour. He remains on D5 water at a rate of 75 cc an hour. His fluid balance is +3.9 L over the past 24 hours. White cell count of 8.4 with a hemoglobin 7.1 and a platelet count of 253. BUN is 40 with a creatinine of 1.4 and a sodium levels at 144. The earliest sputum sample was positive for Enterobacter aerogenes. On 10/20/2024, the patient remains sedated on propofol. Arousable and moving all 4 extremities. He is status post reintubation on 10/18/2024 and is status post bronchoscopy x 2 with evacuation of mucous plugs from his left lower lobe. The patient has Enterobacter erogenous in his sputum and the patient remains on IV cefepime. This morning, he remains on assist-control mode with rate of 14, tidal volume of 500, FiO2 of 50% with a PEEP of 10. Blood gas shows significant improvement oxygenation and the pO2 is up to 153 and a pH is at 7.4 with a pCO2 of 41. The patient remains on low-dose norepinephrine at 0.04 mcg/kg/min. He remains on IV heparin for paroxysmal A-fib. Hemoglobin dropped down to 6.7 and the patient is going to receive a unit of packed RBC. Creatinine is up to 1.5. He remains on vital high-protein at rate of 40 cc an hour. Fluid balance is +1.2 L over the past 24 hours. He is afebrile. Objective - Vital Signs Vital signs: Vital Signs Temp 97.3 F L 10/20/24 11:27 Pulse 66 10/20/24 11:27 Resp 19 10/20/24 11:27 BP 123/49 10/20/24 11:27 Pulse Ox 97 10/20/24 11:27 FiO2 40 12/01/24 10:00 Intake & Output 10/19/24 10/20/24 10/20/24 18:59 06:59 18:59 Intake Total 2551.850 5093.466 1307.378 Output Total 670 610 550 Balance 593.214 634.466 757.378 Weight 93.6 kg 94.1 kg Intake: IV 431 220 253 0.9 Normal Saline 70 190 35 Cefepime 2 gm In Sodium 100 100 Chloride 0.9% 100 ml @ 25 mls/hr IVPB Q8HR [facility] Rx# :[id number] Dextrose 5% in Water 1, 225 000 ml @ 75 mls/hr IV . [id number] [facility] Rx#:[id number] Normal Saline Pressure 36 30 18 Bag Potassium Chloride 10 meq 100 In Water For Injection 1 100ml.bag @ 100 mls/hr IVPB Q1H [facility] Rx#: [id number] Intake, IV Titration 442.214 564.466 414.378 Amount Heparin Sod,Pork in 0.45% 230.16 168.614 NaCl 25,000 unit In 0.45 % NaCl 1 250ml.bag @ 18 UNITS/KG/HR 16.722 mls/hr IV .[id number] [facility] Rx#: [id number] Norepinephrine 8 mg In 81.763 41.074 66.002 Sodium Chloride 0.9% 250 ml @ 0.03 MCG/KG/MIN 5. 393 mls/hr IV .Q24H [facility] Rx#:[id number] propofoL 1,000 mg In 360.451 293.232 179.762 Empty Bag 1 bag @ 15 MCG/ KG/MIN 8.361 mls/hr IV . [id number] [facility] Rx#:[id number] Tube Feeding 300 260 200 Blood Product 310 Rc As-1 Unit 310 [id number] Other 90 200 130 Output: Urine 670 610 550 Other: Voiding Method Indwelling Catheter Indwelling Catheter ABP, PAP, CO, CI - Last Documented Arterial Blood Pressure 126/51 - Exam The patient is intubated, on mechanical ventilator, sedated with propofol. Orogastric and orotracheal tube are both in place. Head exam was generally normal. There was no scleral icterus or corneal arcus. Mucous membranes were moist. Neck supple. Full range of motion. No adenopathy thyromegaly or neck vein d istention. Cardiovascular examination reveals regular rhythm rate. S1-S2 normal. No S3 or S4. No discernible murmur noted. Lungs reveal mild scattered rhonchi. No wheezes or crackles. Breath sounds equal. Breath sounds are diminished in lung base bilaterally, and the breath sounds are diminished in the left lung base. Few scattered expiratory wheezes are appreciated. Abdomen soft, without bowel sounds. No masses or tenderness. Extremities are intact. No cyanosis clubbing or edema. Right knee surgical wound site is dry clean and intact. Right knee is slightly swollen. No erythem a. No tenderness. Skin reveals multiple abrasions and bruises. Neurologically, the patient is sedated on propofol. - Labs CBC & Chem 7: 10/20/24 04:15 10/20/24 04:15 Labs: Abnormal Lab Results - Last 24 Hours (Table) 10/19/24 10/19/24 10/19/24 Range/Units 12:05 17:52 20:03 RBC (4.30-5.90) m/uL Hgb (13.0-17.5) gm/dL Hct (39.0-53.0) % MCV (80.0-100.0) fL MCH (25.0-35.0) pg Macrocytosis APTT (22.0-30.0) sec ABG pO2 (83-108) mmHg ABG Total CO2 (19-24) mmol/L ABG O2 Saturation (94-97) % Hemoglobin (13.0-17.5) gm/dL Chloride (98-107) mmol/L BUN (9-20) mg/dL Creatinine (0.66-1.25) mg/dL Glucose (74-99) mg/dL POC Glucose (mg/dL) 210 H 244 H 280 H (70-110) mg/dL Calcium (8.4-10.2) mg/dL Crossmatch 10/19/24 10/20/24 10/20/24 Range/Units 23:42 04:15 04:15 RBC 1.88 L (4.30-5.90) m/uL Hgb 6.7 L* (13.0-17.5) gm/dL Hct 21.4 L (39.0-53.0) % MCV 114.3 H (80.0-100.0) fL MCH 35.9 H (25.0-35.0) pg Macrocytosis Marked A APTT (22.0-30.0) sec ABG pO2 (83-108) mmHg ABG Total CO2 (19-24) mmol/L ABG O2 Saturation (94-97) % Hemoglobin (13.0-17.5) gm/dL Chloride 115 H (98-107) mmol/L BUN 39 H (9-20) mg/dL Creatinine 1.51 H (0.66-1.25) mg/dL Glucose 186 H (74-99) mg/dL POC Glucose (mg/dL) 261 H (70-110) mg/dL Calcium 7.3 L (8.4-10.2) mg/dL Crossmatch 10/20/24 10/20/24 10/20/24 Range/Units 05:00 05:41 05:57 RBC (4.30-5.90) m/uL Hgb (13.0-17.5) gm/dL Hct (39.0-53.0) % MCV (80.0-100.0) fL MCH (25.0-35.0) pg Macrocytosis APTT 78.3 H (22.0-30.0) sec ABG pO2 153 H (83-108) mmHg ABG Total CO2 26 H (19-24) mmol/L ABG O2 Saturation 100.0 H (94-97) % Hemoglobin 6.8 L* (13.0-17.5) gm/dL Chloride (98-107) mmol/L BUN (9-20) mg/dL Creatinine (0.66-1.25) mg/dL Glucose (74-99) mg/dL POC Glucose (mg/dL) 226 H (70-110) mg/dL Calcium (8.4-10.2) mg/dL Crossmatch 10/20/24 10/20/24 10/20/24 Range/Units 06:25 09:06 11:37 RBC (4.30-5.90) m/uL Hgb (13.0-17.5) gm/dL Hct (39.0-53.0) % MCV (80.0-100.0) fL MCH (25.0-35.0) pg Macrocytosis APTT (22.0-30.0) sec ABG pO2 (83-108) mmHg ABG Total CO2 (19-24) mmol/L ABG O2 Saturation (94-97) % Hemoglobin (13.0-17.5) gm/dL Chloride (98-107) mmol/L BUN (9-20) mg/dL Creatinine (0.66-1.25) mg/dL Glucose (74-99) mg/dL POC Glucose (mg/dL) 243 H 252 H (70-110) mg/dL Calcium (8.4-10.2) mg/dL Crossmatch See Detail Microbiology - Last 24 Hours (Table) 10/18/24 15:00 Gram Stain - Preliminary Sputum Sputum Culture - Preliminary 10/17/24 13:07 Anaerobic Culture - Preliminary Pleural Fluid 10/17/24 13:07 Gram Stain - Preliminary Pleural Fluid Body Fluid Culture - Preliminary 10/16/24 20:30 Gram Stain - Final Sputum Sputum Culture - Final Enterobacter aerogenes Assessment and Plan Plan: Acute hypoxic respiratory failure, the patient has been intubated on 10/10/2024 following his knee surgery and the patient remains intubated on the mechanical ventilator, chest x-ray is unchanged and the patient continues to have atelectatic changes and small infiltrates in the lung base bilaterally. The patient was extubated on 10/15/2024 and subsequently reintubated on 10/18/2024 for an extensive left lung pneumonia with mucous plugs. Bronchoscopy was done on 10/18/2024 and 10/19/2024 with removal of extensive mucous plugs from the left mainstem bronchus and the left lower lobe. The preliminary sputum culture is positive for Enterobacter aerogenes. Patient is currently on IV cefepime. Chest x-ray from today shows improving aeration of the left lung base. Oxygen ation is also improved. Please refer to the chest x-ray and blood gas from today. Encephalopathy, multifactorial. The patient had delirium tremens and subsequently patient was treated for septic shock. The patient's encephalopathy is improved and the patient is awake and alert and communicating. No focal neurological deficit. Nevertheless, post reintubation, the patient was placed back on propofol. Acute left lower lobe pneumonia with extensive mucous plugging Right-sided pleural effusion status postthoracentesis with removal of 400 cc of pleural fluid Bilateral lower lobe pulmonary filtrates, rule out pneumonia the patient remains on IV cefepime Septic shock, currently low-dose pressors with norepinephrine running at 0.04 mcg/kg/min Septic arthritis of the right knee secondary to strep group A in addition to a positive blood cultures with the same microorganism, currently on IV cefepime Back pain, rule out epidural abscess. MRI of the spine will be done at a later stage once the patient is medically more stable. Chronic alcohol abuse, with acute alcohol withdrawal syndrome, recovered Postop day # 9 for status post arthroscopy, with arthroscopic lavage and debridement of the right knee, partial medial meniscectomy and medial femoral condyle and medial tibial plateau chondroplasty. Status post fall, with rhabdomyolysis, secondary to immobility. Acute kidney injury, creatinine stable at 1. 5, rule out vancomycin induced nephrotoxicity and vancomycin has been discontinued Acute on chronic anemia with a drop in hemoglobin down to 6.7. Lactic acidosis, resolved. History of coronary artery disease, with previous catheterization and stent placement. CHF with mild impairment LV function with an ejection fraction of 45% Paroxysmal atrial fibrillation, current rhythm is sinus and the patient remains on amiodarone drip and IV heparin drip. Diabetes mellitus type I with episodes of hypoglycemia Gastroesophageal reflux disease. Hyperlipidemia. Hypertension. History of myocardial infarction. History of osteoarthritis. Plan: Continue propofol keep the patient on the mechanical ventilator for now. Continue PEEP and lower the level to 6 and dropped FiO2 down to 40% Repeat bronchoscopy was done on 10/18/2024 and 10/19/2024 with removal of more m ucous plugs Continue IV cefepime Continue oral amiodarone and current cardiac rhythm is sinus Continue IV heparin Give the patient a unit of packed RBC Monitor renal function, vancomycin has been discontinued Enteral feeding has been initiated Wean off pressors and discontinue Monitor fever pattern Change Levemir insulin to 5 units units nightly along with Scale insulin coverage and watch for any signs of hypoglycemia MRI of the thoracic and lumbosacral spine was the patient is medically stable IV Protonix Monitor fluid balance PT evaluation Will continue to follow. This is a critical care evaluation that was done more than 30 minutes. Time with Patient: Greater than 30
[2024-10-20 12:09] LABS: Amorphous Sediment,Urine Rare /hpf; Appearance,Urine Cloudy (Clear); Bacteria,Urine Rare /hpf; Bilirubin,Urine Negative (Negative); Blood,Urine Small (Negative); Color,Urine Colorless; Glucose,Urine (UA) 2+ (Negative); Ketones,Urine Negative (Negative); Leukocyte Esterase,Urine Negative (Negative); Mucus,Urine Rare /hpf; Nitrite,Urine Negative (Negative); PH, Urine 5.5 (5.0-8.0); Protein,Urine 1+ (Negative); RBC,Urine 3 /hpf (0-5); Red Blood Cell Casts,Urine 37 /lpf (0); Squamous Epithelial Cell,Urine 1 /hpf (0-4); Urobilinogen,Urine <2.0 mg/dL (<2.0); WBC,Urine 6 /hpf (0-5); White Blood Cell Casts,Urine 3 /lpf (0)
--- NOTE | 2024-10-20 12:53 | P.PN ---
Subjective Progress Note Date: 10/20/24 Principal diagnosis: Reason for follow-up is Streptococcus agalactiae bacteremia Patient is a 64-year-old male past medical history significant for diabetes mellitus hypertension hyperlipidemia DC osteoarthritis coronary disease patient was brought into the hospital after apparently the patient was found to be facedown on the ground with contusion to his forehead and abrasion to his knee and some bloody toes, patient did have a fever subsequently blood cultures came back positive with Streptococcus agalactiae prompting this consultation. Patient noticed to have swelling of the right knee aspirate was purulent subsequently the patient did have a right knee washout completed by orthopedics on 10/10/2024. On today's evaluation that is 10/20/2024, Patient is afebrile patient is currently on ventilator FiO2 is currently stable at 40% no significant purulent secretion from the ED diarrhea no changes reported. Patient white count is 6.7 hemoglobin dropped to 6.7 creatinine is 1.5 1 repeat sputum currently pending pleural fluid cultures pending Objective - Vital Signs Vital signs: Vital Signs Temp 97.3 F L 10/20/24 11:27 Pulse 68 10/20/24 12:15 Resp 19 10/20/24 11:27 BP 123/49 10/20/24 11:27 Pulse Ox 97 10/20/24 11:27 FiO2 40 10/20/24 12:08 Intake & Output 10/19/24 10/20/24 10/20/24 18:59 06:59 18:59 Intake Total 8989.704 1419.466 1307.378 Output Total 670 610 550 Balance 593.214 634.466 757.378 Weight 93.6 kg 94.1 kg Intake: IV 431 220 253 0.9 Normal Saline 70 190 35 Cefepime 2 gm In Sodium 100 100 Chloride 0.9% 100 ml @ 25 mls/hr IVPB Q8HR [facility] Rx# :[id number] Dextrose 5% in Water 1, 225 000 ml @ 75 mls/hr IV . [id number] [facility] Rx#:[id number] Normal Saline Pressure 36 30 18 Bag Potassium Chloride 10 meq 100 In Water For Injection 1 100ml.bag @ 100 mls/hr IVPB Q1H [facility] Rx#: [id number] Intake, IV Titration 442.214 564.466 414.378 Amount Heparin Sod,Pork in 0.45% 230.16 168.614 NaCl 25,000 unit In 0.45 % NaCl 1 250ml.bag @ 18 UNITS/KG/HR 16.722 mls/hr IV .[id number] [facility] Rx#: [id number] Norepinephrine 8 mg In 81.763 41.074 66.002 Sodium Chloride 0.9% 250 ml @ 0.03 MCG/KG/MIN 5. 393 mls/hr IV .Q24H [facility] Rx#:[id number] propofoL 1,000 mg In 360.451 293.232 179.762 Empty Bag 1 bag @ 15 MCG/ KG/MIN 8.361 mls/hr IV . [id number] [facility] Rx#:[id number] Tube Feeding 300 260 200 Blood Product 310 Rc As-1 Unit 310 [id number] Other 90 200 130 Output: Urine 670 610 550 Other: Voiding Method Indwelling Catheter Indwelling Catheter ABP, PAP, CO, CI - Last Documented Arterial Blood Pressure 126/51 - Exam GENERAL DESCRIPTION: Middle-age male intubated on the vent RESPIRATORY SYSTEM: Unlabored breathing , decreased breath sounds at bases HEART: S1 S2 regular rate and rhythm , ABDOMEN: Soft , no tenderness EXTREMITIES: Swelling to the lower extremity and right knee but no redness - Labs CBC & Chem 7: 10/20/24 04:15 10/20/24 04:15 Labs: Abnormal Lab Results - Last 24 Hours (Table) 10/19/24 10/19/24 10/19/24 Range/Units 17:52 20:03 23:42 RBC (4.30-5.90) m/uL Hgb (13.0-17.5) gm/dL Hct (39.0-53.0) % MCV (80.0-100.0) fL MCH (25.0-35.0) pg Macrocytosis APTT (22.0-30.0) sec ABG pO2 (83-108) mmHg ABG Total CO2 (19-24) mmol/L ABG O2 Saturation (94-97) % Hemoglobin (13.0-17.5) gm/dL Chloride (98-107) mmol/L BUN (9-20) mg/dL Creatinine (0.66-1.25) mg/dL Glucose (74-99) mg/dL POC Glucose (mg/dL) 244 H 280 H 261 H (70-110) mg/dL Calcium (8.4-10.2) mg/dL Urine Protein (Negative) Urine Glucose (UA) (Negative) Urine Blood (Negative) Urine WBC (0-5) /hpf Amorphous Sediment (None) /hpf Urine Bacteria (None) /hpf Urine Mucus (None) /hpf Crossmatch 10/20/24 10/20/24 10/20/24 Range/Units 04:15 04:15 05:00 RBC 1.88 L (4.30-5.90) m/uL Hgb 6.7 L* (13.0-17.5) gm/dL Hct 21.4 L (39.0-53.0) % MCV 114.3 H (80.0-100.0) fL MCH 35.9 H (25.0-35.0) pg Macrocytosis Marked A APTT 78.3 H (22.0-30.0) sec ABG pO2 (83-108) mmHg ABG Total CO2 (19-24) mmol/L ABG O2 Saturation (94-97) % Hemoglobin (13.0-17.5) gm/dL Chloride 115 H (98-107) mmol/L BUN 39 H (9-20) mg/dL Creatinine 1.51 H (0.66-1.25) mg/dL Glucose 186 H (74-99) mg/dL POC Glucose (mg/dL) (70-110) mg/dL Calcium 7.3 L (8.4-10.2) mg/dL Urine Protein (Negative) Urine Glucose (UA) (Negative) Urine Blood (Negative) Urine WBC (0-5) /hpf Amorphous Sediment (None) /hpf Urine Bacteria (None) /hpf Urine Mucus (None) /hpf Crossmatch 10/20/24 10/20/24 10/20/24 Range/Units 05:41 05:57 06:25 RBC (4.30-5.90) m/uL Hgb (13.0-17.5) gm/dL Hct (39.0-53.0) % MCV (80.0-100.0) fL MCH (25.0-35.0) pg Macrocytosis APTT (22.0-30.0) sec ABG pO2 153 H (83-108) mmHg ABG Total CO2 26 H (19-24) mmol/L ABG O2 Saturation 100.0 H (94-97) % Hemoglobin 6.8 L* (13.0-17.5) gm/dL Chloride (98-107) mmol/L BUN (9-20) mg/dL Creatinine (0.66-1.25) mg/dL Glucose (74-99) mg/dL POC Glucose (mg/dL) 226 H (70-110) mg/dL Calcium (8.4-10.2) mg/dL Urine Protein (Negative) Urine Glucose (UA) (Negative) Urine Blood (Negative) Urine WBC (0-5) /hpf Amorphous Sediment (None) /hpf Urine Bacteria (None) /hpf Urine Mucus (None) /hpf Crossmatch See Detail 10/20/24 10/20/24 10/20/24 Range/Units 09:06 11:37 11:40 RBC (4.30-5.90) m/uL Hgb (13.0-17.5) gm/dL Hct (39.0-53.0) % MCV (80.0-100.0) fL MCH (25.0-35.0) pg Macrocytosis APTT (22.0-30.0) sec ABG pO2 (83-108) mmHg ABG Total CO2 (19-24) mmol/L ABG O2 Saturation (94-97) % Hemoglobin (13.0-17.5) gm/dL Chloride (98-107) mmol/L BUN (9-20) mg/dL Creatinine (0.66-1.25) mg/dL Glucose (74-99) mg/dL POC Glucose (mg/dL) 243 H 252 H (70-110) mg/dL Calcium (8.4-10.2) mg/dL Urine Protein 1+ H (Negative) Urine Glucose (UA) 2+ H (Negative) Urine Blood Small H (Negative) Urine WBC 6 H (0-5) /hpf Amorphous Sediment Rare H (None) /hpf Urine Bacteria Rare H (None) /hpf Urine Mucus Rare H (None) /hpf Crossmatch Microbiology - Last 24 Hours (Table) 10/18/24 15:00 Gram Stain - Preliminary Sputum Sputum Culture - Preliminary 10/17/24 13:07 Anaerobic Culture - Preliminary Pleural Fluid 10/17/24 13:07 Gram Stain - Preliminary Pleural Fluid Body Fluid Culture - Preliminary 10/16/24 20:30 Gram Stain - Final Sputum Sputum Culture - Final Enterobacter aerogenes Assessment and Plan (1) Sepsis Current Visit: Yes Status: Acute Code(s): A41.9 - SEPSIS, UNSPECIFIED ORGANISM SNOMED Code(s): 02717941 (2) Streptococcal bacteremia Current Visit: Yes Status: Acute Code(s): R78.81 - BACTEREMIA; B95.5 - UNSP STREPTOCOCCUS THE CAUSE OF DISEASES [facility] SNOMED Code(s): 389127468984 Plan: 1patient presented to the hospital with sepsis in this patient who did have fever tachycardia elevated white count and now with evidence of streptococcal bacteremia which is usually of skin and soft tissue origin 2-patient noticed to have right knee effusion has been evaluated by orthopedics and is status post aspiration with purulent drainage subsequently did have right knee washout by orthopedic cultures are pending may need further workup including MRI of the spine when stable. Ortho is following the patient closely 3patient right knee fluid culture also came back positive with group A strep 4-patient did have left-sided pneumonia patient required reintubation and also status post bronchoscopy and lavage sputum, initial culture growing Enterobacter that is sensitive to cefepime 5the patient is afebrile white count normalized we will treat with cefepime and monitor clinical course closely Dictation was produced using [employer] dictation software. please excuse any grammatical, word or spelling errors. Time with Patient: Less than 30
--- NOTE | 2024-10-20 15:34 | P.PN ---
Subjective Progress Note Date: 10/20/24 64-year-old male who is being seen in the ICU due to hypovolemic shock and rhabdomyolysis. He is a poor historian due to altered mental status and unresponsiveness. All history is obtained from the chart. He initially presented to the emergency department after being found facedown on the ground with a contusion to his forehead and abrasions to his knee and left toes. She stated that he had been having nausea and vomiting for a day prior to being found down. He was noted to have diarrhea as well. Patient is a daily drinker and consumes about a fifth per day according to the notes he has not drank for the 2 days prior to this admission. He also has a history of type 1 diabetes mellitus. Initial EKG showed sinus tachycardia. Head/cervical spine CT showed no acute intracranial process and no acute fracture or traumatic subluxation of the cervical spine. Initial chest x-ray showed right middle lobe scarring/atelectasis, no acute pulmonary process. He had received 4 L of normal saline. Initial labs showed CK level of 18,113, WBCs 10.7, hemoglobin 12.5, sodium 126, creatinine 3.18 lactic acid 6.9, AST 401, ALT 65. Preliminary blood culture showed gram-positive cocci and patient was started on vancomycin. 24-hour interval change 10/12/2024 -- Patient is evaluated in the ICU. He remains intubated on mechanical ventilation - ABG shows pH 7.42, pCO2 38, pO2 74. - He is maintained on vasopressin 0.02 units/min, normal saline at 20 cc/h, IV hydrocortisone 50 mg every 6 hours, and Kefzol day 5. Labs are reviewed WBCs 17.4, hemoglobin 8.2, hematocrit 25.2, platelets 53, sodium 142, potassium 3.7, chloride 116, CO2 23, BUN 39, creatinine 1.18, gluco se 258. Ionized calcium 4.4. Magnesium 1.8. Today's chest x-ray is unchanged. Wound culture gram stain of the right knee preliminary report shows rare gram positive cocci. 10/13/2024 Patient is seen and evaluated in ICU at bedside; remains on the mechanical ventilator. Discussed with nursing staff. Concerns about elevated blood sugars; patient was placed on home dose of Lantus which did not help much - Blood gases show pO2 72, pCO2 41, and pH is 7.42. - The patient is on propofol at 35 mcg/kg/min, saline at 20 cc an hour, and vital high-protein at 60, with goal of 70. Yesterday, he had a brief spontaneous breathing trial, and he did poorly. Today he will again have a spontaneous breathing trial, of pressure support of 5 and CPAP of 5. He continues on Ancef. White count 18.8, hemoglobin 8.2, hematocrit 25.8, platelet count 78,000. Sodium 144, potassium 4.1, chlorides 117, CO2 26, BUN 47, creatinine 1.18. Glucose is 340. Albumin is 2.1. Previous blood cultures from October 06 show group A streptococci. Chest x-ray shows bibasilar infiltrates. -- For hyperglycemia I will increase dose of Lantus and add insulin lispro every 4 hours; continue with current sliding scale 10/14/2024 Patient is seen in follow-up today continues on Precedex and attempting to wean maintained on mechanical ventilation with an FiO2 of 50% PEEP is 5. Per nursing staff attempting sedation holiday although did not go well yesterday. Patient is maintained on antibiotics with infectious disease following and patient is status post right knee aspiration with preliminary culture showing strep a with positive blood cultures. Patient continues with significant swelling especially the scrotal area maintained on IV Lasix and will continue. No discussion of PEG and trach as of yet and patient remains full code. Prognosis is guarded. 10/15/2024 Patient is seen this morning continues to be in the ICU currently working on weaning FiO2 and undergoing sedation holiday. Patient is eye tracking and following commands and per pulmonary chef under working on extubation today. Will await official report and monitor closely. Patient is continued on antibiotics with infectious disease following. 10/16/2024 Patient is seen in follow-up this morning extubated successfully currently maintained on 6 L high flow nasal cannula. Patient is awake and responding appropriately to questions and commands. Patient is extremely lethargic at times and significantly weak with significant edema noted. Sodium is elevated at 150 and is continued on D5 and water. Blood sugars have been elevated and will adjust insulins accordingly. Patient swallow eval performed and failed awaiting reevaluation with speech. Continue n.p.o. for now. White count remains elevated patient is maintained on antibiotics with infectious disease following. Awaiting repeat cultures. Procalcitonin 1.06. Questions and concerns were answered to the best of my ability with son at the bedside. 10/17/2024 Patient is evaluated today in follow up in the ICU. He was extubated yesterday. Continues on oxygen support on 100% BiPAP at this time. Cultures from the right knee arthroscopy reveals Strep A. Chest xray today reveals no change to the bibasilar opacities. Chest ultrasound reveals right pleural effusion pocket size 6.0 cm and left pleural effusion pocket size of 4.9 cm. Both sides marked for possible thoracentesis. Labs today reveal white blood cell count of 11.8, hgb 7. 5, sodium 146, potassium 3.4, BUN 43, creatinine 1.06. Blood glucose 200s. Continues on IV amiodarone, IV cefepime, IV vancomycin. Patient is in normal sinus rhythm currently heart rate in the 80s. 10/18/2024 Patient evaluated today in follow up in the ICU. He is awake alert oriented continues on BiPAP. He is status post right sided thoracentesis with 400 mL off. Chest xray today reveals stable bilateral lower lobe infiltrate and small pleural effusion. White blood cell count today 10.4. Continues on IV vancomycin and IV cefepime. Remains on IV amiodarone. on IV heparin. Patient remains NPO at this time, speech therapy to follow up today to reassess. 10/19/2024 Patient remains in the ICU. He is on the mechanical ventilator, FiO2 of 50%. Chest x-ray today shows left lower lobe pneumonia and/or atelectasis and pleural effusion. Elian in the left lung base is obscuring the left heart border and the hemidiaphragm has decreased in the interval. White blood cell count today is 8.4, hemoglobin 7.1, sodium 144, BUN of 40, creatinine of 1.43. His viral panel is negative for all viruses checked. 10/20/2024 Patient remains the intensive care unit he is currently on mechanical ventilator with an FiO2 of 50%. He is awake and alert and responding to commands. His chest x-ray reveals continued acute coronary cardiopulmonary disease involving the retrocardiac region with no significant interval change. Repeat sputum reveals Enterobacter he continues on IV cefepime at this time. Hemoglobin level today is 6.7 he will receive 1 unit of packed red blood cells. His creatinine is up to 1.51 today. Continues on oral amiodarone for the atrial fibrillation was taken off of anticoagulation secondary to the decreased hemoglobin. Patient is sedated with propofol at this time. He is also receiving IV Lasix daily prognosis remains guarded. Review of systems: Constitutional: No reports of fatigue, fever, or chills Cardiovascular: No reports of chest pain or palpitations Respiratory: reports of shortness of breath with a weak cough GI: No reports of nausea, vomiting, or diarrhea, reports to feeling hungry although having difficulty in swallowing : No reports of dysuria or retention Neurovascular: reports of generalized weakness and significant swelling of upper and lower extremities All medications have been reviewed Physical exam: Gen: This is a 64-year-old male who was recently extubated 10/15 continues on BiPAP support., well-developed, elderly appearing, ill-appearing, appears older than stated age HEENT: Head is atraumatic, normocephalic. Pupils equal, round. Sclerae is anicteric. NECK: Supple. No JVD. No lymphadenopathy. No thyromegaly. LUNGS: Diminished breath sounds bilaterally with some bronchial congestion and coarse scattered rhonchi. No intercostal retractions. HEART: S1, S2 are muffled ABDOMEN: Soft. Somewhat taut, positive bowel sounds are present. No masses. No tenderness. Significant scrotal edema noted, minimally improved EXTREMITIES: Bilateral upper and lower extremity edema noted. No calf tenderness. Generalized upper and lower extremity edema along with scrotal swelling noted NEUROLOGICAL: Patient is awake, alert and oriented x 2-3, diffusely weak Assessment: -Chronic alcohol abuse with acute alcohol withdrawal syndrome; CIWA protocol in place; patient remains on thiamine and Protonix. -Acute hypoxic respiratory failure was intubated following knee surgery on 10/10 and successfully extubated on 10/15/24. re-intubated on 10/18/2024 -Congestive heart failure with an EF of 45%, diastolic dysfunction -Paroxysmal atrial fibrillation transitioned to oral amiodarone Continues on IV heparin -Right sided pleural effusion status post right sided thoracentesis with 400 mL off. -Rhabdomyolysis secondary to immobility due to fall. Improving with IV hydration. We will continue to monitor strict STERLING's, daily weights, renal function electrolytes -Acute kidney injury secondary to ATN due to to septic shock and rhabdomyolysis. Improving; monitor renal function electrolytes; avoid nephrotoxins and hypotension. -Relative adrenal insufficiency. On IV hydrocortisone. -Transaminitis. Improving. -Streptococcus group A bacteremia. Currently on cefazolin per ID recommendation; continue to monitor CBC, CRP and procalcitonin. Possibly secondary to right knee infection -Right knee pain with swelling, status post aspiration along with arthroscopic lavage, culture showing strep a with septic arthritis -Hyponatremia, likely hypovolemic; resolved. -Now hypernatremic likely from free water deficit and continues on D5 water. -Type 1 diabetes mellitus; we will continue to monitor Accu-Cheks before every meal and at bedtime with insulin sliding scale. -History of coronary artery disease with previous catheterization and stent placement. -Hypertension; currently not on any antihypertensive medication. -Sepsis, present on admission possibly secondary to right knee arthritis with bacteremia GI prophylaxis DVT prophylaxis Full code Plan: Patient continues in the ICU with multiple consultations following maintained on IV antibiotics status post arthroscopy with lavage of the right knee and final cultures showing Strep A. Repeat blood cultures thus far are negative and will continue on IV antibiotics with ID following He is now s/p right sided thoracentesis with 400 mL of fluid off. Sent for cytology. Patient has been re-intubated. Sputum culture showing Enterobacter continues on IV cefepime Patient failed swallow eval and awaiting reevaluation with speech therapy, continue n.p.o. for now Blood sugars variable and uncontrolled will adjust insulins and continue with Accu-Cheks before meals and at bedtime as well as 2 AM and adjust long-acting Discussion was had with family at the bedside as well as patient and will likely need rehab on discharge. Patient will need PT/OT therapy evaluation once more stable Follow-up on repeat labs and monitor kidney functions and electrolytes closely. Sodium is better and off of the D5W at this time. Patient was given Lasix for generalized edema. Worsening creatinine today at 1.51. He was started on IV Lasix daily. Overall prognosis remains guarded at this time The impression and plan of care has been dictated by Sharlene Pendleton, Nurse Practitioner as directed. Dr. Randall MD I have performed a history and physical examination and medical decision making of this patient, discussed the same with the dictator, and agree with the dictators assessment and plan as written, documented as a scribe. Based on total visit time, I have performed more than 50% of this visit. Objective - Vital Signs Vital signs: Vital Signs Temp 97.3 F L 10/20/24 11:27 Pulse 69 10/20/24 15:00 Resp 19 10/20/24 15:00 BP 123/49 10/20/24 11:27 Pulse Ox 99 10/20/24 15:00 FiO2 40 10/20/24 15:00 Intake & Output 10/19/24 10/20/24 10/20/24 18:59 06:59 18:59 Intake Total 0588.085 2553.466 1563.378 Output Total 679 996 0629 Balance 593.214 634.466 38.378 Weight 93.6 kg 94.1 kg Intake: IV 431 220 277 0.9 Normal Saline 70 190 50 Cefepime 2 gm In Sodium 100 100 Chloride 0.9% 100 ml @ 25 mls/hr IVPB Q8HR [facility] Rx# :[id number] Dextrose 5% in Water 1, 225 000 ml @ 75 mls/hr IV . [id number] [facility] Rx#:[id number] Normal Saline Pressure 36 30 27 Bag Potassium Chloride 10 meq 100 In Water For Injection 1 100ml.bag @ 100 mls/hr IVPB Q1H [facility] Rx#: [id number] Intake, IV Titration 442.214 564.466 514.378 Amount Heparin Sod,Pork in 0.45% 230.16 168.614 NaCl 25,000 unit In 0.45 % NaCl 1 250ml.bag @ 18 UNITS/KG/HR 16.722 mls/hr IV .[id number] [facility] Rx#: [id number] Norepinephrine 8 mg In 81.763 41.074 66.002 Sodium Chloride 0.9% 250 ml @ 0.03 MCG/KG/MIN 5. 393 mls/hr IV .Q24H [facility] Rx#:[id number] propofoL 1,000 mg In 360.451 293.232 279.762 Empty Bag 1 bag @ 15 MCG/ KG/MIN 8.361 mls/hr IV . [id number] [facility] Rx#:[id number] Tube Feeding 300 260 332 Blood Product 310 Rc As-1 Unit 310 [id number] Other 90 200 130 Output: Urine 647 172 6771 Other: Voiding Method Indwelling Catheter Indwelling Catheter ABP, PAP, CO, CI - Last Documented Arterial Blood Pressure 122/47 - Labs CBC & Chem 7: 10/20/24 04:15 10/20/24 04:15 Labs: Abnormal Lab Results - Last 24 Hours (Table) 10/19/24 10/19/24 10/19/24 Range/Units 17:52 20:03 23:42 RBC (4.30-5.90) m/uL Hgb (13.0-17.5) gm/dL Hct (39.0-53.0) % MCV (80.0-100.0) fL MCH (25.0-35.0) pg Macrocytosis APTT (22.0-30.0) sec ABG pO2 (83-108) mmHg ABG Total CO2 (19-24) mmol/L ABG O2 Saturation (94-97) % Hemoglobin (13.0-17.5) gm/dL Chloride (98-107) mmol/L BUN (9-20) mg/dL Creatinine (0.66-1.25) mg/dL Glucose (74-99) mg/dL POC Glucose (mg/dL) 244 H 280 H 261 H (70-110) mg/dL Calcium (8.4-10.2) mg/dL Urine Protein (Negative) Urine Glucose (UA) (Negative) Urine Blood (Negative) Urine WBC (0-5) /hpf Amorphous Sediment (None) /hpf Urine Bacteria (None) /hpf Urine Mucus (None) /hpf Crossmatch 10/20/24 10/20/24 10/20/24 Range/Units 04:15 04:15 05:00 RBC 1.88 L (4.30-5.90) m/uL Hgb 6.7 L* (13.0-17.5) gm/dL Hct 21.4 L (39.0-53.0) % MCV 114.3 H (80.0-100.0) fL MCH 35.9 H (25.0-35.0) pg Macrocytosis Marked A APTT 78.3 H (22.0-30.0) sec ABG pO2 (83-108) mmHg ABG Total CO2 (19-24) mmol/L ABG O2 Saturation (94-97) % Hemoglobin (13.0-17.5) gm/dL Chloride 115 H (98-107) mmol/L BUN 39 H (9-20) mg/dL Creatinine 1.51 H (0.66-1.25) mg/dL Glucose 186 H (74-99) mg/dL POC Glucose (mg/dL) (70-110) mg/dL Calcium 7.3 L (8.4-10.2) mg/dL Urine Protein (Negative) Urine Glucose (UA) (Negative) Urine Blood (Negative) Urine WBC (0-5) /hpf Amorphous Sediment (None) /hpf Urine Bacteria (None) /hpf Urine Mucus (None) /hpf Crossmatch 10/20/24 10/20/24 10/20/24 Range/Units 05:41 05:57 06:25 RBC (4.30-5.90) m/uL Hgb (13.0-17.5) gm/dL Hct (39.0-53.0) % MCV (80.0-100.0) fL MCH (25.0-35.0) pg Macrocytosis APTT (22.0-30.0) sec ABG pO2 153 H (83-108) mmHg ABG Total CO2 26 H (19-24) mmol/L ABG O2 Saturation 100.0 H (94-97) % Hemoglobin 6.8 L* (13.0-17.5) gm/dL Chloride (98-107) mmol/L BUN (9-20) mg/dL Creatinine (0.66-1.25) mg/dL Glucose (74-99) mg/dL POC Glucose (mg/dL) 226 H (70-110) mg/dL Calcium (8.4-10.2) mg/dL Urine Protein (Negative) Urine Glucose (UA) (Negative) Urine Blood (Negative) Urine WBC (0-5) /hpf Amorphous Sediment (None) /hpf Urine Bacteria (None) /hpf Urine Mucus (None) /hpf Crossmatch See Detail 10/20/24 10/20/24 10/20/24 Range/Units 09:06 11:37 11:40 RBC (4.30-5.90) m/uL Hgb (13.0-17.5) gm/dL Hct (39.0-53.0) % MCV (80.0-100.0) fL MCH (25.0-35.0) pg Macrocytosis APTT (22.0-30.0) sec ABG pO2 (83-108) mmHg ABG Total CO2 (19-24) mmol/L ABG O2 Saturation (94-97) % Hemoglobin (13.0-17.5) gm/dL Chloride (98-107) mmol/L BUN (9-20) mg/dL Creatinine (0.66-1.25) mg/dL Glucose (74-99) mg/dL POC Glucose (mg/dL) 243 H 252 H (70-110) mg/dL Calcium (8.4-10.2) mg/dL Urine Protein 1+ H (Negative) Urine Glucose (UA) 2+ H (Negative) Urine Blood Small H (Negative) Urine WBC 6 H (0-5) /hpf Amorphous Sediment Rare H (None) /hpf Urine Bacteria Rare H (None) /hpf Urine Mucus Rare H (None) /hpf Crossmatch Microbiology - Last 24 Hours (Table) 10/18/24 15:00 Gram Stain - Preliminary Sputum Sputum Culture - Preliminary 10/17/24 13:07 Anaerobic Culture - Preliminary Pleural Fluid 10/17/24 13:07 Gram Stain - Preliminary Pleural Fluid Body Fluid Culture - Preliminary 10/16/24 20:30 Gram Stain - Final Sputum Sputum Culture - Final Enterobacter aerogenes Assessment and Plan Time with Patient: Less than 30
[2024-10-20 15:39] LABS: Anisocytosis Slight; HCT 23.2 % (39.0-53.0); HGB 7.4 gm/dL (13.0-17.5); Hypochromasia Slight; MCH 34.4 pg (25.0-35.0); MCHC 31.8 g/dL (31.0-37.0); Macrocytosis Marked; Mean Platelet Volume 10.4; Platelet Count 249 k/uL (150-450); Poikilocytosis Slight; RBC 2.15 m/uL (4.30-5.90); RDW 17.1 % (11.5-15.5); WBC 5.2 k/uL (3.8-10.6)
[2024-10-20 15:41] LABS: MCV 108.2 fL (80.0-100.0)
[2024-10-20 17:40] LABS: Glucose,Whole Blood 273 mg/dL (70-110)
[2024-10-20 23:42] LABS: Glucose,Whole Blood 232 mg/dL (70-110)
[2024-10-21 04:58] LABS: ABG Base Excess 0.8 mmol/L; ABG HCO3 25 mmol/L (21-25); ABG Oxygen Saturation 98.6 % (94-97); ABG PCO2 34 mmHg (35-45); ABG PH 7.47 (7.35-7.45); ABG PO2 97 mmHg (83-108); ABG TCO2 26 mmol/L (19-24); Allen Test Performed? Yes
[2024-10-21 05:24] LABS: Anisocytosis Slight; Basophils % (A) 0 %; Eosinophils % (A) 0 %; HCT 24.2 % (39.0-53.0); HGB 7.8 gm/dL (13.0-17.5); Hypochromasia Moderate; Lymphocytes # (A) 0.5 k/uL (1.0-4.8); Lymphocytes % (A) 8 %; MCH 35.1 pg (25.0-35.0); MCHC 32.3 g/dL (31.0-37.0); MCV 108.7 fL (80.0-100.0); Macrocytosis Marked; Mean Platelet Volume 9.7; Monocytes # (A) 0.3 k/uL (0-1.0); Monocytes % (A) 5 %; Neutrophils # (A) 5.3 k/uL (1.3-7.7); Neutrophils % (A) 85 %; Platelet Count 287 k/uL (150-450); Poikilocytosis Slight; RBC 2.22 m/uL (4.30-5.90); RDW 16.6 % (11.5-15.5); WBC 6.3 k/uL (3.8-10.6)
[2024-10-21 06:20] LABS: Glucose,Whole Blood 186 mg/dL (70-110)
[2024-10-21 07:09] LABS: ALT 13 U/L (4-49); AST 20 U/L (17-59); African American GFR (CKD) 50 (>60 ml/min/1.73 sqM); Alkaline Phosphatase 168 U/L (38-126); Anion Gap 5 mmol/L; Blood Urea Nitrogen 42 mg/dL (9-20); Calcium 7.8 mg/dL (8.4-10.2); Carbon Dioxide 23 mmol/L (22-30); Chloride 113 mmol/L (98-107); Glucose 152 mg/dL (74-99); Non-African American GFR(CKD) 43 (>60 ml/min/1.73 sqM); Potassium 3.8 mmol/L (3.5-5.1); Sodium 141 mmol/L (137-145); Total Bilirubin 0.4 mg/dL (0.2-1.3); Total Protein 5.6 g/dL (6.3-8.2)
--- NOTE | 2024-10-21 08:22 | XR ---
EXAMINATION TYPE: XR chest 1V portable DATE OF EXAM: 10/21/2024 5:35 AM COMPARISON: Chest radiograph from one day prior. CLINICAL INDICATION: Male, 64 years old with history of Tube placement; TECHNIQUE: XR chest 1V portable Frontal view of the chest. FINDINGS: Lungs/Pleura: There is no evidence of pleural effusion, focal consolidation, or pneumothorax. Pulmonary vascularity: Unremarkable. Heart/mediastinum: Cardiomediastinal silhouette is unremarkable. Musculoskeletal: No acute osseous pathology. Other findings: None Lines/Tubes: Endotracheal tube with distal tip 3.2 cm above the marvel. Nasogastric tube with its distal tip and side-port projecting under the diaphragm. IMPRESSION: Stable exam, support tubes in appropriate position. [facility], , 10/21/2024 8:20 AM
[2024-10-21] MEDS: POTASSIUM BICARBONATE/CIT AC 20 MEQ TABLET.EFF NG-TUBE SCH ×3 (08:35→20:10)
--- NOTE | 2024-10-21 09:37 | P.PN ---
Subjective Patient is seen in follow-up for acute kidney injury. Renal function little worse today. Intubated. Off Levophed. Receiving tube feeds. Hemoglobin improved post blood transfusion. On IV Lasix. Vital signs are stable. General: No acute distress. HEENT: Intubated. LUNGS: Scattered rhonchi. HEART: Rate and Rhythm are regular. ABDOMEN: No distention. EXTREMITITES: 2+ edema. Scrotal edema noted. Objective - Vital Signs Vital signs: Vital Signs Temp 99.3 F 10/21/24 08:00 Pulse 94 10/21/24 08:34 Resp 21 10/21/24 08:00 BP 127/74 10/21/24 08:00 Pulse Ox 98 10/21/24 08:00 FiO2 40 10/21/24 08:16 Intake & Output 10/20/24 10/21/24 10/21/24 18:59 06:59 18:59 Intake Total 1924.666 966.112 475 Output Total 2100 1100 410 Balance -175.334 -133.888 65 Weight 98 kg 98 kg Intake: IV 301 96 119 0.9 Normal Saline 65 60 10 Cefepime 2 gm In Sodium 100 100 Chloride 0.9% 100 ml @ 25 mls/hr IVPB Q8HR [facility] Rx# :[id number] Normal Saline Pressure 36 36 9 Bag Potassium Chloride 10 meq 100 In Water For Injection 1 100ml.bag @ 100 mls/hr IVPB Q1H [facility] Rx#: [id number] Intake, IV Titration 595.666 156.112 100 Amount Heparin Sod,Pork in 0.45% 168.614 NaCl 25,000 unit In 0.45 % NaCl 1 250ml.bag @ 18 UNITS/KG/HR 16.722 mls/hr IV .[id number] [facility] Rx#: [id number] Norepinephrine 8 mg In 66.002 Sodium Chloride 0.9% 250 ml @ 0.03 MCG/KG/MIN 5. 393 mls/hr IV .Q24H [facility] Rx#:[id number] propofoL 1,000 mg In 361.050 156.112 100 Empty Bag 1 bag @ 15 MCG/ KG/MIN 8.361 mls/hr IV . [id number] [facility] Rx#:[id number] Tube Feeding 488 624 156 Blood Product 310 Rc As-1 Unit 310 [id number] Other 230 90 100 Output: Urine 2100 1100 410 Other: Voiding Method Indwelling Catheter Indwelling Catheter # Bowel Movements 1 ABP, PAP, CO, CI - Last Documented Arterial Blood Pressure 128/45 - Labs CBC & Chem 7: 10/21/24 05:05 10/21/24 05:05 Labs: Abnormal Lab Results - Last 24 Hours (Table) 10/20/24 10/20/24 10/20/24 Range/Units 06:25 11:37 11:40 RBC (4.30-5.90) m/uL Hgb (13.0-17.5) gm/dL Hct (39.0-53.0) % MCV (80.0-100.0) fL MCH (25.0-35.0) pg RDW (11.5-15.5) % Lymphocytes # (1.0-4.8) k/uL Macrocytosis ABG pH (7.35-7.45) ABG pCO2 (35-45) mmHg ABG Total CO2 (19-24) mmol/L ABG O2 Saturation (94-97) % Hemoglobin (13.0-17.5) gm/dL Chloride (98-107) mmol/L BUN (9-20) mg/dL Creatinine (0.66-1.25) mg/dL Glucose (74-99) mg/dL POC Glucose (mg/dL) 252 H (70-110) mg/dL Calcium (8.4-10.2) mg/dL Alkaline Phosphatase (38-126) U/L Total Protein (6.3-8.2) g/dL Albumin (3.5-5.0) g/dL Urine Protein 1+ H (Negative) Urine Glucose (UA) 2+ H (Negative) Urine Blood Small H (Negative) Urine WBC 6 H (0-5) /hpf Amorphous Sediment Rare H (None) /hpf Urine Bacteria Rare H (None) /hpf Urine Mucus Rare H (None) /hpf Crossmatch See Detail 10/20/24 10/20/24 10/20/24 Range/Units 15:05 17:39 23:40 RBC 2.15 L (4.30-5.90) m/uL Hgb 7.4 L (13.0-17.5) gm/dL Hct 23.2 L (39.0-53.0) % MCV 108.2 H D (80.0-100.0) fL MCH (25.0-35.0) pg RDW 17.1 H (11.5-15.5) % Lymphocytes # (1.0-4.8) k/uL Macrocytosis Marked A ABG pH (7.35-7.45) ABG pCO2 (35-45) mmHg ABG Total CO2 (19-24) mmol/L ABG O2 Saturation (94-97) % Hemoglobin (13.0-17.5) gm/dL Chloride (98-107) mmol/L BUN (9-20) mg/dL Creatinine (0.66-1.25) mg/dL Glucose (74-99) mg/dL POC Glucose (mg/dL) 273 H 232 H (70-110) mg/dL Calcium (8.4-10.2) mg/dL Alkaline Phosphatase (38-126) U/L Total Protein (6.3-8.2) g/dL Albumin (3.5-5.0) g/dL Urine Protein (Negative) Urine Glucose (UA) (Negative) Urine Blood (Negative) Urine WBC (0-5) /hpf Amorphous Sediment (None) /hpf Urine Bacteria (None) /hpf Urine Mucus (None) /hpf Crossmatch 10/21/24 10/21/24 10/21/24 Range/Units 04:55 05:05 05:05 RBC 2.22 L (4.30-5.90) m/uL Hgb 7.8 L (13.0-17.5) gm/dL Hct 24.2 L (39.0-53.0) % MCV 108.7 H (80.0-100.0) fL MCH 35.1 H (25.0-35.0) pg RDW 16.6 H (11.5-15.5) % Lymphocytes # 0.5 L (1.0-4.8) k/uL Macrocytosis Marked A ABG pH 7.47 H (7.35-7.45) ABG pCO2 34 L (35-45) mmHg ABG Total CO2 26 H (19-24) mmol/L ABG O2 Saturation 98.6 H (94-97) % Hemoglobin 7.7 L (13.0-17.5) gm/dL Chloride 113 H (98-107) mmol/L BUN 42 H (9-20) mg/dL Creatinine 1.67 H (0.66-1.25) mg/dL Glucose 152 H (74-99) mg/dL POC Glucose (mg/dL) (70-110) mg/dL Calcium 7.8 L (8.4-10.2) mg/dL Alkaline Phosphatase 168 H (38-126) U/L Total Protein 5.6 L (6.3-8.2) g/dL Albumin 2.0 L (3.5-5.0) g/dL Urine Protein (Negative) Urine Glucose (UA) (Negative) Urine Blood (Negative) Urine WBC (0-5) /hpf Amorphous Sediment (None) /hpf Urine Bacteria (None) /hpf Urine Mucus (None) /hpf Crossmatch 10/21/24 Range/Units 06:19 RBC (4.30-5.90) m/uL Hgb (13.0-17.5) gm/dL Hct (39.0-53.0) % MCV (80.0-100.0) fL MCH (25.0-35.0) pg RDW (11.5-15.5) % Lymphocytes # (1.0-4.8) k/uL Macrocytosis ABG pH (7.35-7.45) ABG pCO2 (35-45) mmHg ABG Total CO2 (19-24) mmol/L ABG O2 Saturation (94-97) % Hemoglobin (13.0-17.5) gm/dL Chloride (98-107) mmol/L BUN (9-20) mg/dL Creatinine (0.66-1.25) mg/dL Glucose (74-99) mg/dL POC Glucose (mg/dL) 186 H (70-110) mg/dL Calcium (8.4-10.2) mg/dL Alkaline Phosphatase (38-126) U/L Total Protein (6.3-8.2) g/dL Albumin (3.5-5.0) g/dL Urine Protein (Negative) Urine Glucose (UA) (Negative) Urine Blood (Negative) Urine WBC (0-5) /hpf Amorphous Sediment (None) /hpf Urine Bacteria (None) /hpf Urine Mucus (None) /hpf Crossmatch Microbiology - Last 24 Hours (Table) 10/17/24 13:07 Gram Stain - Preliminary Pleural Fluid Body Fluid Culture - Preliminary 10/18/24 15:00 Gram Stain - Preliminary Sputum Sputum Culture - Preliminary Assessment and Plan Plan: Assessment: 1. Acute kidney injury secondary to ATN secondary to septic shock and rhabdomyolysis. Creatinine 3.18 on admission and improved to 0.89 dated October 16, 2024 -fairly stable at 1.67 today. No hydronephrosis noted on kidney ultrasound. 2. Rhabdomyolysis secondary to immobility. Resolved. 3. Strep bacteremia on antibiotics. Being treated for pneumonia. Status post bronchoscopy October 18, 2024. 4. Anion gap metabolic acidosis secondary to acute kidney injury and lactic acidosis. Now due to IV fluids. Status post bicarb drip. 5. Hypernatremia from lack of oral water intake. Improving with D5W. 6. Hypomagnesemia from poor intake and alcohol abuse. Replaced. Improved. 7. History of alcohol abuse. 8. Hypocalcemia secondary to acute kidney injury as well as intracellular shifting from bicarb. PTH 112. Vitamin D level 26.5. On vitamin D. Corrected calcium in the normal range. 9. A-fib with RVR maintained on amiodarone drip. 10. Volume overload. 11. Acute blood loss anemia status post blood transfusion this admission. Plan: Increase Lasix to 40 mg IV twice daily. Avoid nephrotoxins. Continue to monitor renal function and urine output. Wean FiO2. Potassium replaced.
--- NOTE | 2024-10-21 11:49 | PN ---
PROGRESS NOTE SUBJECTIVE: Forest is a 64-year-old gentleman with history of coronary artery disease, status post stenting of the left circumflex coronary artery, who presented to hospital with mental status changes, thought to be related to chronic alcoholism. He has paroxysmal episodes of atrial fibrillation. His echocardiogram on his initial presentation revealed an ejection fraction of 45%. MEDICATIONS: The patient is currently on: 1. Amiodarone 200 b.i.d. 2. Lipitor 40 q. daily. 3. Cefepime. 4. Lasix 40 IV b.i.d. 5. Lopressor 12.5 mg b.i.d. 6. He is also on pressors. OBJECTIVE: VITAL SIGNS: On exam, heart rate is 90 beats per minute, blood pressure is 120/74, mechanically ventilated, afebrile. CHEST: Reveals occasional rhonchi bilaterally. HEART: Reveals first and second heart sounds. No gallop. ABDOMEN: Soft. EXTREMITIES: Reveal mild edema bilaterally. LABORATORY DATA: Labs showed a hemoglobin of 7.8, platelet count is 287. Potassium is 3.8, BUN is 42, creatinine is 1.6. ASSESSMENT: 1. Vent-requiring respiratory failure. 2. History of CAD, status post angioplasty. 3. Paroxysmal atrial fibrillation. 4. History of blood loss and anemia. The hemoglobin dropped down to 6.7. On admission, his hemoglobin was 12.5. Heparin is currently on hold. 5. Encephalopathy. PLAN: We will continue to hold the IV heparin. MMODL / NANON: [id number] /
[2024-10-21 12:21] LABS: Glucose,Whole Blood 238 mg/dL (70-110)
--- NOTE | 2024-10-21 13:35 | P.PN ---
Subjective Progress Note Date: 10/21/24 Principal diagnosis: Acute hypoxic respiratory failure with left lower lobe pneumonia and significant mucous plugs with metabolic encephalopathy as well as septic shock Patient is a 64-year-old male who is being seen in the ICU due to hypovolemic shock and rhabdomyolysis. He is a poor historian due to altered mental status and unresponsiveness. All history is obtained from the chart. He initially presented to the emergency department after being found facedown on the ground with a contusion to his forehead and abrasions to his knee and left toes. She stated that he had been having nausea and vomiting for a day prior to being found down. He was noted to have diarrhea as well. Patient is a daily drinker and consumes about a fifth per day according to the notes he has not drank for the 2 days prior to this admission. He also has a history of type 1 diabetes mellitus. Initial EKG showed sinus tachycardia. Head/cervical spine CT showed no acute intracranial process and no acute fracture or traumatic subluxation of the cervical spine. Initial chest x-ray showed right middle lobe scarring/atelectasis, no acute pulmonary process. He had received 4 L of normal saline. Initial labs showed CK level of 18,113, WBCs 10.7, hemoglobin 12.5, sodium 126, creatinine 3.18 lactic acid 6.9, AST 401, ALT 65. Preliminary blood culture showed gram-positive cocci and patient was started on vancomycin. On 10/20/2024, the patient remains sedated on propofol. Arousable and moving all 4 extremities. He is status post reintubation on 10/18/2024 and is status post bronchoscopy x 2 with evacuation of mucous plugs from his left lower lobe. The patient has Enterobacter erogenous in his sputum and the patient remains on IV cefepime. This morning, he remains on assist-control mode with rate of 14, tidal volume of 500, FiO2 of 50% with a PEEP of 10. Blood gas shows significant improvement oxygenation and the pO2 is up to 153 and a pH is at 7.4 with a pCO2 of 41. The patient remains on low-dose norepinephrine at 0.04 mcg/kg/min. He remains on IV heparin for paroxysmal A-fib. Hemoglobin dropped down to 6.7 and the patient is going to receive a unit of packed RBC. Creatinine is up to 1.5. He remains on vital high-protein at rate of 40 cc an hour. Fluid balance is +1.2 L over the past 24 hours. He is afebrile. Patient was seen today on 10/21/24, patient remains in the ICU, patient is on mechanical ventilation with assist-control rate of 14 tidal volume 500 FiO2 40% and PEEP of 6 ABG showed a pO2 of 27 pCO2 34 pH of 7.47. No changes were made in vent settings. Patient remains on propofol at 40 mcg/kg/min, received a unit of packed RBCs yesterday for low hemoglobin. Remains on vital HP patient is receiving cefepime for Enterobacter around [place] and his sputum. Patient had strep a in the right knee joint patient is covered with cefepime remains on Lasix 40 mg IV push daily his initial presentation to the hospital was when he was found facedown on the ground with a contusion on his forehead and abrasion on his left knee as well as left toes. Patient is known to be a heavy drinker, consumes 1/5/day according to the notes in the chart. Patient is also known to have type 1 diabetes, intubation on 10/10/2024 following his knee surgery patient was extubated on 10/15, however he had to be reintubated on 10/18 bronchoscopy was done for extensive pneumonia involving the left lower lobe and mucous plugs were suctioned. Patient also had another bronchoscopy on 09/22 with improvement in his chest x-ray findings and left lower lobe pneumonia. Sputum cultures have been positive for Enterobacter allergies. Has been on IV cefepime WBC count today 6.3 hemoglobin 7.8 metabolic profile is normal BUN is 42 creatinine 1.67. Chest x-ray continues to show bibasilar airspace disease left lower lobe more so than right lower lobe Objective - Vital Signs Vital signs: Vital Signs Temp 99.3 F 10/21/24 12:00 Pulse 92 10/21/24 13:16 Resp 20 10/21/24 13:00 BP 114/62 10/21/24 12:00 Pulse Ox 97 10/21/24 13:00 FiO2 40 10/21/24 13:05 Intake & Output 10/20/24 10/21/24 10/21/24 18:59 06:59 18:59 Intake Total 1924.666 966.112 757 Output Total 2100 1100 5 Balance -175.334 -133.888 -1278 Weight 98 kg 98 kg Intake: IV 301 96 141 0.9 Normal Saline 65 60 20 Cefepime 2 gm In Sodium 100 100 Chloride 0.9% 100 ml @ 25 mls/hr IVPB Q8HR P[facility] Rx# :[id number] Normal Saline Pressure 36 36 21 Bag Potassium Chloride 10 meq 100 In Water For Injection 1 100ml.bag @ 100 mls/hr IVPB Q1H P[facility]O Rx#: [id number] Intake, IV Titration 595.666 156.112 100 Amount Heparin Sod,Pork in 0.45% 168.614 NaCl 25,000 unit In 0.45 % NaCl 1 250ml.bag @ 18 UNITS/KG/HR 16.722 mls/hr IV .[id number] P[facility]O Rx#: [id number] Norepinephrine 8 mg In 66.002 Sodium Chloride 0.9% 250 ml @ 0.03 MCG/KG/MIN 5. 393 mls/hr IV .Q24H P[facility]O Rx#:[id number] propofoL 1,000 mg In 361.050 156.112 100 Empty Bag 1 bag @ 15 MCG/ KG/MIN 8.361 mls/hr IV . [id number] P[facility]O Rx#:[id number] Tube Feeding 488 624 316 Blood Product 310 Rc As-1 Unit 310 [id number] Other 230 90 200 Output: Urine 2100 1100 2035 Other: Voiding Method Indwelling Catheter Indwelling Catheter # Bowel Movements 1 ABP, PAP, CO, CI - Last Documented Arterial Blood Pressure 120/43 - Exam Physical examination: Reveals 64-year-old white male intubated mechanically ventilated, on propofol, follows simple instructions. Head exam was generally normal. There was no scleral icterus or corneal arcus. Mucous membranes were moist. Neck supple. Full range of motion. No adenopathy thyromegaly or neck vein distention. Cardiovascular examination reveals regular rhythm rate. S1-S2 normal. No S3 or S4. Lungs crackles at the bases and scattered rhonchi. Abdomen soft, without bowel sounds. No masses or tenderness. Extremities clubbing or cyanosis, right knee surgical wound site is dry clean and intact. Right knee is slightly swollen. Surgical sites are clean kin reveals multiple abrasions and bruises. Neurologically, sedated, but follows simple instructions on propofol. Psychiatric: Could not assess - Labs CBC & Chem 7: 10/21/24 05:05 10/21/24 05:05 Labs: Abnormal Lab Results - Last 24 Hours (Table) 10/20/24 10/20/24 10/20/24 Range/Units 15:05 17:39 23:40 RBC 2.15 L (4.30-5.90) m/uL Hgb 7.4 L (13.0-17.5) gm/dL Hct 23.2 L (39.0-53.0) % MCV 108.2 H D (80.0-100.0) fL MCH (25.0-35.0) pg RDW 17.1 H (11.5-15.5) % Lymphocytes # (1.0-4.8) k/uL Macrocytosis Marked A ABG pH (7.35-7.45) ABG pCO2 (35-45) mmHg ABG Total CO2 (19-24) mmol/L ABG O2 Saturation (94-97) % Hemoglobin (13.0-17.5) gm/dL Chloride (98-107) mmol/L BUN (9-20) mg/dL Creatinine (0.66-1.25) mg/dL Glucose (74-99) mg/dL POC Glucose (mg/dL) 273 H 232 H (70-110) mg/dL Calcium (8.4-10.2) mg/dL Alkaline Phosphatase (38-126) U/L Total Protein (6.3-8.2) g/dL Albumin (3.5-5.0) g/dL 10/21/24 10/21/24 10/21/24 Range/Units 04:55 05:05 05:05 RBC 2.22 L (4.30-5.90) m/uL Hgb 7.8 L (13.0-17.5) gm/dL Hct 24.2 L (39.0-53.0) % MCV 108.7 H (80.0-100.0) fL MCH 35.1 H (25.0-35.0) pg RDW 16.6 H (11.5-15.5) % Lymphocytes # 0.5 L (1.0-4.8) k/uL Macrocytosis Marked A ABG pH 7.47 H (7.35-7.45) ABG pCO2 34 L (35-45) mmHg ABG Total CO2 26 H (19-24) mmol/L ABG O2 Saturation 98.6 H (94-97) % Hemoglobin 7.7 L (13.0-17.5) gm/dL Chloride 113 H (98-107) mmol/L BUN 42 H (9-20) mg/dL Creatinine 1.67 H (0.66-1.25) mg/dL Glucose 152 H (74-99) mg/dL POC Glucose (mg/dL) (70-110) mg/dL Calcium 7.8 L (8.4-10.2) mg/dL Alkaline Phosphatase 168 H (38-126) U/L Total Protein 5.6 L (6.3-8.2) g/dL Albumin 2.0 L (3.5-5.0) g/dL 10/21/24 10/21/24 Range/Units 06:19 12:15 RBC (4.30-5.90) m/uL Hgb (13.0-17.5) gm/dL Hct (39.0-53.0) % MCV (80.0-100.0) fL MCH (25.0-35.0) pg RDW (11.5-15.5) % Lymphocytes # (1.0-4.8) k/uL Macrocytosis ABG pH (7.35-7.45) ABG pCO2 (35-45) mmHg ABG Total CO2 (19-24) mmol/L ABG O2 Saturation (94-97) % Hemoglobin (13.0-17.5) gm/dL Chloride (98-107) mmol/L BUN (9-20) mg/dL Creatinine (0.66-1.25) mg/dL Glucose (74-99) mg/dL POC Glucose (mg/dL) 186 H 238 H (70-110) mg/dL Calcium (8.4-10.2) mg/dL Alkaline Phosphatase (38-126) U/L Total Protein (6.3-8.2) g/dL Albumin (3.5-5.0) g/dL Microbiology - Last 24 Hours (Table) 10/18/24 15:00 Gram Stain - Final Sputum Sputum Culture - Final 10/17/24 13:07 Gram Stain - Preliminary Pleural Fluid Body Fluid Culture - Preliminary Assessment and Plan Assessment: Impression: Acute hypoxic respiratory failure Acute left lower lobe pneumonia Acute metabolic encephalopathy Septic shock, resolved Right-sided pleural effusion requiring thoracentesis and 400 cc of fluid removed Septic arthritis of the right knee requiring surgery cultures positive for strep A, remains on antibiotics/IV cefepime Chronic back pain may need MRI of the lumbosacral spine Chronic alcohol abuse and acute alcohol withdrawal syndrome recovered Postoperative day #10, status post arthroscopy and arthroscopic lavage and debridement of right knee with partial medial meniscectomy and medial femoral condyle and medial tibial plateau chondroplasty Acute kidney injury, patient is now off vancomycin Acute on chronic anemia History of underlying coronary artery disease and previous stent placement History of LV dysfunction and cardiomyopathy with ejection fraction of 45% Paroxysmal atrial fibrillation currently patient is in sinus rhythm. On amiodarone and heparin drip Type 1 diabetes GERD without esophagitis Dyslipidemia History of MT History of degenerative joint disease Recommendation: Continue ventilatory support, patient is not quite ready for weaning considering his chest x-ray appearance remains on antibiotics may or may not require repeat bronchoscopy this will be decided upon after his chest x-ray tomorrow. Continue antibiotics/cefepime May consider bronchoscopy again and removal of mucous plugs Not ready for weaning Continue IV heparin Continue GI prophylaxis Continue insulin MRI of thoracic spine after extubation or when patient is medically stable, rule out epidural abscess Continue IV Protonix Continue to monitor fluid status and diurese as needed Patient remains critically ill Critical care time is over 30 minutes Time with Patient: Greater than 30
[2024-10-21 18:18] LABS: Glucose,Whole Blood 208 mg/dL (70-110)
[2024-10-21 20:02] LABS: Glucose,Whole Blood 172 mg/dL (70-110)
[2024-10-21] MEDS: FUROSEMIDE 10 MG/ML 4 ML VIAL IV SCH (20:09)
[2024-10-21] MEDS: CEFEPIME 2 GM in SODIUM CHLORIDE 0.9% 100 ML IVPB SCH (20:10)
[2024-10-21] MEDS: INSULIN DETEMIR (LEVEMIR) 100 UNIT/ML SYR SQ SCH (20:20)
--- NOTE | 2024-10-21 21:48 | P.PN ---
Subjective Progress Note Date: 10/21/24 64-year-old male who is being seen in the ICU due to hypovolemic shock and rhabdomyolysis. He is a poor historian due to altered mental status and unresponsiveness. All history is obtained from the chart. He initially presented to the emergency department after being found facedown on the ground with a contusion to his forehead and abrasions to his knee and left toes. She stated that he had been having nausea and vomiting for a day prior to being found down. He was noted to have diarrhea as well. Patient is a daily drinker and consumes about a fifth per day according to the notes he has not drank for the 2 days prior to this admission. He also has a history of type 1 diabetes mellitus. Initial EKG showed sinus tachycardia. Head/cervical spine CT showed no acute intracranial process and no acute fracture or traumatic subluxation of the cervical spine. Initial chest x-ray showed right middle lobe scarring/atelectasis, no acute pulmonary process. He had received 4 L of normal saline. Initial labs showed CK level of 18,113, WBCs 10.7, hemoglobin 12.5, sodium 126, creatinine 3.18 lactic acid 6.9, AST 401, ALT 65. Preliminary blood culture showed gram-positive cocci and patient was started on vancomycin. 24-hour interval change 10/12/2024 -- Patient is evaluated in the ICU. He remains intubated on mechanical ventilation - ABG shows pH 7.42, pCO2 38, pO2 74. - He is maintained on vasopressin 0.02 units/min, normal saline at 20 cc/h, IV hydrocortisone 50 mg every 6 hours, and Kefzol day 5. Labs are reviewed WBCs 17.4, hemoglobin 8.2, hematocrit 25.2, platelets 53, sodium 142, potassium 3.7, chloride 116, CO2 23, BUN 39, creatinine 1.18, gluco se 258. Ionized calcium 4.4. Magnesium 1.8. Today's chest x-ray is unchanged. Wound culture gram stain of the right knee preliminary report shows rare gram positive cocci. 10/13/2024 Patient is seen and evaluated in ICU at bedside; remains on the mechanical ventilator. Discussed with nursing staff. Concerns about elevated blood sugars; patient was placed on home dose of Lantus which did not help much - Blood gases show pO2 72, pCO2 41, and pH is 7.42. - The patient is on propofol at 35 mcg/kg/min, saline at 20 cc an hour, and vital high-protein at 60, with goal of 70. Yesterday, he had a brief spontaneous breathing trial, and he did poorly. Today he will again have a spontaneous breathing trial, of pressure support of 5 and CPAP of 5. He continues on Ancef. White count 18.8, hemoglobin 8.2, hematocrit 25.8, platelet count 78,000. Sodium 144, potassium 4.1, chlorides 117, CO2 26, BUN 47, creatinine 1.18. Glucose is 340. Albumin is 2.1. Previous blood cultures from October 06 show group A streptococci. Chest x-ray shows bibasilar infiltrates. -- For hyperglycemia I will increase dose of Lantus and add insulin lispro every 4 hours; continue with current sliding scale 10/14/2024 Patient is seen in follow-up today continues on Precedex and attempting to wean maintained on mechanical ventilation with an FiO2 of 50% PEEP is 5. Per nursing staff attempting sedation holiday although did not go well yesterday. Patient is maintained on antibiotics with infectious disease following and patient is status post right knee aspiration with preliminary culture showing strep a with positive blood cultures. Patient continues with significant swelling especially the scrotal area maintained on IV Lasix and will continue. No discussion of PEG and trach as of yet and patient remains full code. Prognosis is guarded. 10/15/2024 Patient is seen this morning continues to be in the ICU currently working on weaning FiO2 and undergoing sedation holiday. Patient is eye tracking and following commands and per pulmonary strip polisher working on extubation today. Will await official report and monitor closely. Patient is continued on antibiotics with infectious disease following. 10/16/2024 Patient is seen in follow-up this morning extubated successfully currently maintained on 6 L high flow nasal cannula. Patient is awake and responding appropriately to questions and commands. Patient is extremely lethargic at times and significantly weak with significant edema noted. Sodium is elevated at 150 and is continued on D5 and water. Blood sugars have been elevated and will adjust insulins accordingly. Patient swallow eval performed and failed awaiting reevaluation with speech. Continue n.p.o. for now. White count remains elevated patient is maintained on antibiotics with infectious disease following. Awaiting repeat cultures. Procalcitonin 1.06. Questions and concerns were answered to the best of my ability with son at the bedside. 10/17/2024 Patient is evaluated today in follow up in the ICU. He was extubated yesterday. Continues on oxygen support on 100% BiPAP at this time. Cultures from the right knee arthroscopy reveals Strep A. Chest xray today reveals no change to the bibasilar opacities. Chest ultrasound reveals right pleural effusion pocket size 6.0 cm and left pleural effusion pocket size of 4.9 cm. Both sides marked for possible thoracentesis. Labs today reveal white blood cell count of 11.8, hgb 7. 5, sodium 146, potassium 3.4, BUN 43, creatinine 1.06. Blood glucose 200s. Continues on IV amiodarone, IV cefepime, IV vancomycin. Patient is in normal sinus rhythm currently heart rate in the 80s. 10/18/2024 Patient evaluated today in follow up in the ICU. He is awake alert oriented continues on BiPAP. He is status post right sided thoracentesis with 400 mL off. Chest xray today reveals stable bilateral lower lobe infiltrate and small pleural effusion. White blood cell count today 10.4. Continues on IV vancomycin and IV cefepime. Remains on IV amiodarone. on IV heparin. Patient remains NPO at this time, speech therapy to follow up today to reassess. 10/19/2024 Patient remains in the ICU. He is on the mechanical ventilator, FiO2 of 50%. Chest x-ray today shows left lower lobe pneumonia and/or atelectasis and pleural effusion. Elian in the left lung base is obscuring the left heart border and the hemidiaphragm has decreased in the interval. White blood cell count today is 8.4, hemoglobin 7.1, sodium 144, BUN of 40, creatinine of 1.43. His viral panel is negative for all viruses checked. 10/20/2024 Patient remains the intensive care unit he is currently on mechanical ventilator with an FiO2 of 50%. He is awake and alert and responding to commands. His chest x-ray reveals continued acute coronary cardiopulmonary disease involving the retrocardiac region with no significant interval change. Repeat sputum reveals Enterobacter he continues on IV cefepime at this time. Hemoglobin level today is 6.7 he will receive 1 unit of packed red blood cells. His creatinine is up to 1.51 today. Continues on oral amiodarone for the atrial fibrillation was taken off of anticoagulation secondary to the decreased hemoglobin. Patient is sedated with propofol at this time. He is also receiving IV Lasix daily prognosis remains guarded. 10/21/2024 Patient remains in the intensive care unit. Remains on the mechanical ventilator. He is currently sedated with propofol. He is alert and following commands. Chest xray unchanged continues to show pneumonia with sputum culture showing enterobacter. He remains on IV cefepime. Hemoglobin better today at 7.8. BUN 42 creatinine 1.67. Review of systems: Constitutional: No reports of fatigue, fever, or chills Cardiovascular: No reports of chest pain or palpitations Respiratory: reports of shortness of breath with a weak cough GI: No reports of nausea, vomiting, or diarrhea, reports to feeling hungry although having difficulty in swallowing : No reports of dysuria or retention Neurovascular: reports of generalized weakness and significant swelling of upper and lower extremities All medications have been reviewed Physical exam: Gen: This is a 64-year-old male who was recently extubated 10/15 continues on BiPAP support., well-developed, elderly appearing, ill-appearing, appears older than stated age HEENT: Head is atraumatic, normocephalic. Pupils equal, round. Sclerae is anicteric. NECK: Supple. No JVD. No lymphadenopathy. No thyromegaly. LUNGS: Diminished breath sounds bilaterally with some bronchial congestion and coarse scattered rhonchi. No intercostal retractions. HEART: S1, S2 are muffled ABDOMEN: Soft. Somewhat taut, positive bowel sounds are present. No masses. No tenderness. Significant scrotal edema noted, minimally improved EXTREMITIES: Bilateral upper and lower extremity edema noted. No calf tenderness. Generalized upper and lower extremity edema along with scrotal swelling noted NEUROLOGICAL: Patient is awake, alert and oriented x 2-3, diffusely weak Assessment: -Chronic alcohol abuse with acute alcohol withdrawal syndrome; CIWA protocol in place; patient remains on thiamine and Protonix. -Acute hypoxic respiratory failure was intubated following knee surgery on 10/10 and successfully extubated on 10/15/24. re-intubated on 10/18/2024 -Congestive heart failure with an EF of 45%, diastolic dysfunction -Paroxysmal atrial fibrillation transitioned to oral amiodarone Continues on IV heparin -Right sided pleural effusion status post right sided thoracentesis with 400 mL off. -Rhabdomyolysis secondary to immobility due to fall. Improving with IV hydration. We will continue to monitor strict STERLING's, daily weights, renal function electrolytes -Acute kidney injury secondary to ATN due to to septic shock and rhabdomyolysis. Improving; monitor renal function electrolytes; avoid nephrotoxins and hypotension. -Relative adrenal insufficiency. On IV hydrocortisone. -Transaminitis. Improving. -Streptococcus group A bacteremia. Currently on cefazolin per ID recommendation; continue to monitor CBC, CRP and procalcitonin. Possibly secondary to right knee infection -Right knee pain with swelling, status post aspiration along with arthroscopic lavage, culture showing strep a with septic arthritis -Hyponatremia, likely hypovolemic; resolved. -Now hypernatremic likely from free water deficit and continues on D5 water. -Type 1 diabetes mellitus; we will continue to monitor Accu-Cheks before every meal and at bedtime with insulin sliding scale. -History of coronary artery disease with previous catheterization and stent placement. -Hypertension; currently not on any antihypertensive medication. -Sepsis, present on admission possibly secondary to right knee arthritis with bacteremia GI prophylaxis DVT prophylaxis Full code Plan: Patient continues in the ICU with multiple consultations following maintained on IV antibiotics status post arthroscopy with lavage of the right knee and final cultures showing Strep A. Repeat blood cultures thus far are negative and will continue on IV antibiotics with ID following He is now s/p right sided thoracentesis with 400 mL of fluid off. Sent for cytology. Patient has been re-intubated. Sputum culture showing Enterobacter continues on IV cefepime Patient failed swallow eval and awaiting reevaluation with speech therapy, continue n.p.o. for now Blood sugars variable and uncontrolled will adjust insulins and continue with Accu-Cheks before meals and at bedtime as well as 2 AM and adjust long-acting Discussion was had with family at the bedside as well as patient and will likely need rehab on discharge. Patient will need PT/OT therapy evaluation once more stable Follow-up on repeat labs and monitor kidney functions and electrolytes closely. Sodium is better and off of the D5W at this time. Patient was given Lasix for generalized edema. Worsening creatinine today at 1.51. He was started on IV Lasix daily. Overall prognosis remains guarded at this time The impression and plan of care has been dictated by Sharlene Pendleton, Nurse Practitioner as directed. Dr. Randall MD I have performed a history and physical examination and medical decision making of this patient, discussed the same with the dictator, and agree with the dictators assessment and plan as written, documented as a scribe. Based on total visit time, I have performed more than 50% of this visit. Objective - Vital Signs Vital signs: Vital Signs Temp 99.3 F 10/21/24 12:00 Pulse 92 10/21/24 13:16 Resp 20 10/21/24 13:00 BP 114/62 10/21/24 12:00 Pulse Ox 97 10/21/24 13:00 FiO2 40 10/21/24 13:05 Intake & Output 10/20/24 10/21/24 10/21/24 18:59 06:59 18:59 Intake Total 1924.666 966.112 757 Output Total 2100 1100 2035 Balance -175.334 -133.888 -1278 Weight 98 kg 98 kg Intake: IV 301 96 141 0.9 Normal Saline 65 60 20 Cefepime 2 gm In Sodium 100 100 Chloride 0.9% 100 ml @ 25 mls/hr IVPB Q8HR P[facility]O Rx# :[id number] Normal Saline Pressure 36 36 21 Bag Potassium Chloride 10 meq 100 In Water For Injection 1 100ml.bag @ 100 mls/hr IVPB Q1H P[facility]O Rx#: [id number] Intake, IV Titration 595.666 156.112 100 Amount Heparin Sod,Pork in 0.45% 168.614 NaCl 25,000 unit In 0.45 % NaCl 1 250ml.bag @ 18 UNITS/KG/HR 16.722 mls/hr IV .[id number] P[facility]O Rx#: [id number] Norepinephrine 8 mg In 66.002 Sodium Chloride 0.9% 250 ml @ 0.03 MCG/KG/MIN 5. 393 mls/hr IV .Q24H P[facility]O Rx#:[id number] propofoL 1,000 mg In 361.050 156.112 100 Empty Bag 1 bag @ 15 MCG/ KG/MIN 8.361 mls/hr IV . [id number] P[facility]O Rx#:[id number] Tube Feeding 488 624 316 Blood Product 310 Rc As-1 Unit 310 [id number] Other 230 90 200 Output: Urine 2100 1100 2035 Other: Voiding Method Indwelling Catheter Indwelling Catheter # Bowel Movements 1 ABP, PAP, CO, CI - Last Documented Arterial Blood Pressure 120/43 - Labs CBC & Chem 7: 10/21/24 05:05 10/21/24 18:10 Labs: Abnormal Lab Results - Last 24 Hours (Table) 10/20/24 10/20/24 10/20/24 Range/Units 15:05 17:39 23:40 RBC 2.15 L (4.30-5.90) m/uL Hgb 7.4 L (13.0-17.5) gm/dL Hct 23.2 L (39.0-53.0) % MCV 108.2 H D (80.0-100.0) fL MCH (25.0-35.0) pg RDW 17.1 H (11.5-15.5) % Lymphocytes # (1.0-4.8) k/uL Macrocytosis Marked A ABG pH (7.35-7.45) ABG pCO2 (35-45) mmHg ABG Total CO2 (19-24) mmol/L ABG O2 Saturation (94-97) % Hemoglobin (13.0-17.5) gm/dL Chloride (98-107) mmol/L BUN (9-20) mg/dL Creatinine (0.66-1.25) mg/dL Glucose (74-99) mg/dL POC Glucose (mg/dL) 273 H 232 H (70-110) mg/dL Calcium (8.4-10.2) mg/dL Alkaline Phosphatase (38-126) U/L Total Protein (6.3-8.2) g/dL Albumin (3.5-5.0) g/dL 10/21/24 10/21/24 10/21/24 Range/Units 04:55 05:05 05:05 RBC 2.22 L (4.30-5.90) m/uL Hgb 7.8 L (13.0-17.5) gm/dL Hct 24.2 L (39.0-53.0) % MCV 108.7 H (80.0-100.0) fL MCH 35.1 H (25.0-35.0) pg RDW 16.6 H (11.5-15.5) % Lymphocytes # 0.5 L (1.0-4.8) k/uL Macrocytosis Marked A ABG pH 7.47 H (7.35-7.45) ABG pCO2 34 L (35-45) mmHg ABG Total CO2 26 H (19-24) mmol/L ABG O2 Saturation 98.6 H (94-97) % Hemoglobin 7.7 L (13.0-17.5) gm/dL Chloride 113 H (98-107) mmol/L BUN 42 H (9-20) mg/dL Creatinine 1.67 H (0.66-1.25) mg/dL Glucose 152 H (74-99) mg/dL POC Glucose (mg/dL) (70-110) mg/dL Calcium 7.8 L (8.4-10.2) mg/dL Alkaline Phosphatase 168 H (38-126) U/L Total Protein 5.6 L (6.3-8.2) g/dL Albumin 2.0 L (3.5-5.0) g/dL 10/21/24 10/21/24 Range/Units 06:19 12:15 RBC (4.30-5.90) m/uL Hgb (13.0-17.5) gm/dL Hct (39.0-53.0) % MCV (80.0-100.0) fL MCH (25.0-35.0) pg RDW (11.5-15.5) % Lymphocytes # (1.0-4.8) k/uL Macrocytosis ABG pH (7.35-7.45) ABG pCO2 (35-45) mmHg ABG Total CO2 (19-24) mmol/L ABG O2 Saturation (94-97) % Hemoglobin (13.0-17.5) gm/dL Chloride (98-107) mmol/L BUN (9-20) mg/dL Creatinine (0.66-1.25) mg/dL Glucose (74-99) mg/dL POC Glucose (mg/dL) 186 H 238 H (70-110) mg/dL Calcium (8.4-10.2) mg/dL Alkaline Phosphatase (38-126) U/L Total Protein (6.3-8.2) g/dL Albumin (3.5-5.0) g/dL Microbiology - Last 24 Hours (Table) 10/18/24 15:00 Gram Stain - Final Sputum Sputum Culture - Final 10/17/24 13:07 Gram Stain - Preliminary Pleural Fluid Body Fluid Culture - Preliminary Assessment and Plan Time with Patient: Less than 30
[2024-10-21 23:21] LABS: Glucose,Whole Blood 139 mg/dL (70-110)
[2024-10-22 05:08] LABS: ABG Base Excess 3.3 mmol/L; ABG HCO3 27 mmol/L (21-25); ABG Oxygen Saturation 98.5 % (94-97); ABG PCO2 34 mmHg (35-45); ABG PO2 93 mmHg (83-108); ABG TCO2 28 mmol/L (19-24); Allen Test Performed? Yes
[2024-10-22 05:19] LABS: Glucose,Whole Blood 102 mg/dL (70-110)
[2024-10-22 06:00] LABS: Anisocytosis Slight; HCT 24.8 % (39.0-53.0); HGB 7.9 gm/dL (13.0-17.5); Hypochromasia Slight; MCH 34.4 pg (25.0-35.0); MCHC 32.1 g/dL (31.0-37.0); MCV 107.2 fL (80.0-100.0); Macrocytosis Marked; Mean Platelet Volume 9.5; Platelet Count 306 k/uL (150-450); RBC 2.31 m/uL (4.30-5.90); WBC 5.8 k/uL (3.8-10.6)
[2024-10-22 06:21] LABS: African American GFR (CKD) 44 (>60 ml/min/1.73 sqM); Anion Gap 3 mmol/L; Blood Urea Nitrogen 43 mg/dL (9-20); Calcium 8.1 mg/dL (8.4-10.2); Carbon Dioxide 25 mmol/L (22-30); Chloride 111 mmol/L (98-107); Glucose 90 mg/dL (74-99); Non-African American GFR(CKD) 38 (>60 ml/min/1.73 sqM); Potassium 3.6 mmol/L (3.5-5.1); Sodium 139 mmol/L (137-145)
[2024-10-22] MEDS: POTASSIUM BICARBONATE/CIT AC 20 MEQ TABLET.EFF NG-TUBE SCH (06:52)
--- NOTE | 2024-10-22 08:08 | P.PN ---
Subjective Progress Note Date: 10/21/24 Principal diagnosis: Reason for follow-up is Streptococcus agalactiae bacteremia Patient is a 64-year-old male past medical history significant for diabetes mellitus hypertension hyperlipidemia [place] osteoarthritis coronary disease patient was brought into the hospital after apparently the patient was found to be facedown on the ground with contusion to his forehead and abrasion to his knee and some bloody toes, patient did have a fever subsequently blood cultures came back positive with Streptococcus agalactiae prompting this consultation. Patient noticed to have swelling of the right knee aspirate was purulent subsequently the patient did have a right knee washout completed by orthopedics on 10/10/2024. On today's evaluation that is 10/21/2024, patient has been afebrile, patient is on the ventilator FiO2 is currently stable at 40% patient is hemodynamically stable no significant purulent secretion through the ET diarrhea or any other changes reported by the nursing staff. Patient white count 6.3, creatinine is 1.67 pleural fluid and repeat sputum cultures so far pending Objective - Vital Signs Vital signs: Vital Signs Temp 99.3 F 10/21/24 12:00 Pulse 88 10/21/24 14:00 Resp 19 10/21/24 14:00 BP 114/62 10/21/24 12:00 Pulse Ox 98 10/21/24 14:00 FiO2 40 10/21/24 13:05 Intake & Output 10/20/24 10/21/24 10/21/24 18:59 06:59 18:59 Intake Total 1924.666 966.112 805 Output Total 2100 1100 2210 Balance -175.334 -133.888 -1405 Weight 98 kg 98 kg Intake: IV 301 96 149 0.9 Normal Saline 65 60 25 Cefepime 2 gm In Sodium 100 100 Chloride 0.9% 100 ml @ 25 mls/hr IVPB Q8HR P[facility] Rx# :[id number] Normal Saline Pressure 36 36 24 Bag Potassium Chloride 10 meq 100 In Water For Injection 1 100ml.bag @ 100 mls/hr IVPB Q1H [facility]O Rx#: [id number] Intake, IV Titration 595.666 156.112 100 Amount Heparin Sod,Pork in 0.45% 168.614 NaCl 25,000 unit In 0.45 % NaCl 1 250ml.bag @ 18 UNITS/KG/HR 16.722 mls/hr IV .[id number] [facility] Rx#: [id number] Norepinephrine 8 mg In 66.002 Sodium Chloride 0.9% 250 ml @ 0.03 MCG/KG/MIN 5. 393 mls/hr IV .Q24H [facility] Rx#:[id number] propofoL 1,000 mg In 361.050 156.112 100 Empty Bag 1 bag @ 15 MCG/ KG/MIN 8.361 mls/hr IV . [id number] [facility] Rx#:[id number] Tube Feeding 488 624 356 Blood Product 310 Rc As-1 Unit 310 [id number] Other 230 90 200 Output: Urine 2100 1100 2210 Other: Voiding Method Indwelling Catheter Indwelling Catheter # Bowel Movements 1 ABP, PAP, CO, CI - Last Documented Arterial Blood Pressure 92/42 - Exam GENERAL DESCRIPTION: Middle-age male intubated on the vent RESPIRATORY SYSTEM: Unlabored breathing , decreased breath sounds at bases HEART: S1 S2 regular rate and rhythm , ABDOMEN: Soft , no tenderness EXTREMITIES: Swelling to the lower extremity and right knee but no redness - Labs CBC & Chem 7: 10/22/24 05:40 10/22/24 05:40 Labs: Abnormal Lab Results - Last 24 Hours (Table) 10/20/24 10/20/24 10/20/24 Range/Units 15:05 17:39 23:40 RBC 2.15 L (4.30-5.90) m/uL Hgb 7.4 L (13.0-17.5) gm/dL Hct 23.2 L (39.0-53.0) % MCV 108.2 H D (80.0-100.0) fL MCH (25.0-35.0) pg RDW 17.1 H (11.5-15.5) % Lymphocytes # (1.0-4.8) k/uL Macrocytosis Marked A ABG pH (7.35-7.45) ABG pCO2 (35-45) mmHg ABG Total CO2 (19-24) mmol/L ABG O2 Saturation (94-97) % Hemoglobin (13.0-17.5) gm/dL Chloride (98-107) mmol/L BUN (9-20) mg/dL Creatinine (0.66-1.25) mg/dL Glucose (74-99) mg/dL POC Glucose (mg/dL) 273 H 232 H (70-110) mg/dL Calcium (8.4-10.2) mg/dL Alkaline Phosphatase (38-126) U/L Total Protein (6.3-8.2) g/dL Albumin (3.5-5.0) g/dL 10/21/24 10/21/24 10/21/24 Range/Units 04:55 05:05 05:05 RBC 2.22 L (4.30-5.90) m/uL Hgb 7.8 L (13.0-17.5) gm/dL Hct 24.2 L (39.0-53.0) % MCV 108.7 H (80.0-100.0) fL MCH 35.1 H (25.0-35.0) pg RDW 16.6 H (11.5-15.5) % Lymphocytes # 0.5 L (1.0-4.8) k/uL Macrocytosis Marked A ABG pH 7.47 H (7.35-7.45) ABG pCO2 34 L (35-45) mmHg ABG Total CO2 26 H (19-24) mmol/L ABG O2 Saturation 98.6 H (94-97) % Hemoglobin 7.7 L (13.0-17.5) gm/dL Chloride 113 H (98-107) mmol/L BUN 42 H (9-20) mg/dL Creatinine 1.67 H (0.66-1.25) mg/dL Glucose 152 H (74-99) mg/dL POC Glucose (mg/dL) (70-110) mg/dL Calcium 7.8 L (8.4-10.2) mg/dL Alkaline Phosphatase 168 H (38-126) U/L Total Protein 5.6 L (6.3-8.2) g/dL Albumin 2.0 L (3.5-5.0) g/dL 10/21/24 10/21/24 Range/Units 06:19 12:15 RBC (4.30-5.90) m/uL Hgb (13.0-17.5) gm/dL Hct (39.0-53.0) % MCV (80.0-100.0) fL MCH (25.0-35.0) pg RDW (11.5-15.5) % Lymphocytes # (1.0-4.8) k/uL Macrocytosis ABG pH (7.35-7.45) ABG pCO2 (35-45) mmHg ABG Total CO2 (19-24) mmol/L ABG O2 Saturation (94-97) % Hemoglobin (13.0-17.5) gm/dL Chloride (98-107) mmol/L BUN (9-20) mg/dL Creatinine (0.66-1.25) mg/dL Glucose (74-99) mg/dL POC Glucose (mg/dL) 186 H 238 H (70-110) mg/dL Calcium (8.4-10.2) mg/dL Alkaline Phosphatase (38-126) U/L Total Protein (6.3-8.2) g/dL Albumin (3.5-5.0) g/dL Microbiology - Last 24 Hours (Table) 10/18/24 15:00 Gram Stain - Final Sputum Sputum Culture - Final 10/17/24 13:07 Gram Stain - Preliminary Pleural Fluid Body Fluid Culture - Preliminary Assessment and Plan (1) Sepsis Current Visit: Yes Status: Acute Code(s): A41.9 - SEPSIS, UNSPECIFIED ORGANISM SNOMED Code(s): 45249408 (2) Streptococcal bacteremia Current Visit: Yes Status: Acute Code(s): R78.81 - BACTEREMIA; B95.5 - UNSP STREPTOCOCCUS THE CAUSE OF DISEASES [facility] SNOMED Code(s): 782257522546 Plan: 1patient presented to the hospital with sepsis in this patient who did have fever tachycardia elevated white count and now with evidence of streptococcal bacteremia which is usually of skin and soft tissue origin 2-patient noticed to have right knee effusion has been evaluated by orthopedics and is status post aspiration with purulent drainage subsequently did have right knee washout by orthopedic cultures are pending may need further workup including MRI of the spine when stable. Ortho is following the patient closely 3patient right knee fluid culture also came back positive with group A strep 4-patient did have left-sided pneumonia patient required reintubation and also status post bronchoscopy and lavage sputum culture so far negative, initial culture growing Enterobacter that is sensitive to cefepime 5the patient is afebrile white count normalized 6- we will treat with cefepime and monitor clinical course closely Dictation was produced using [employer] software. please excuse any grammatical, word or spelling errors. Time with Patient: Less than 30
--- NOTE | 2024-10-22 08:44 | XR ---
EXAMINATION TYPE: XR chest 1V portable DATE OF EXAM: 10/22/2024 5:19 AM COMPARISON: Chest radiograph from one day prior. CLINICAL INDICATION: Male, 64 years old with history of assess lungs; TECHNIQUE: XR chest 1V portable Frontal view of the chest. FINDINGS: Lungs/Pleura: There is no evidence of pleural effusion, focal consolidation, or pneumothorax. Pulmonary vascularity: Unremarkable. Heart/mediastinum: Cardiomediastinal silhouette is unremarkable. Musculoskeletal: No acute osseous pathology. There is fixation hardware in the lower cervical spine. Endotracheal tube terminating above the marvel. Nasogastric tube traversing below the diaphragm. IMPRESSION: Stable appearance of lungs. Stable support tubes. [facility], , 10/22/2024 8:41 AM
[2024-10-22] MEDS: POTASSIUM BICARBONATE/CIT AC 20 MEQ TABLET.EFF PO ONE (09:22)
--- NOTE | 2024-10-22 09:26 | P.PN ---
Subjective Patient is seen in follow-up for acute kidney injury. Renal function worsening with diuresis. Nonoliguric. Intubated. Off Levophed. Receiving tube feeds. Vital signs are stable. General: No acute distress. HEENT: Intubated. LUNGS: Scattered rhonchi. HEART: Rate and Rhythm are regular. ABDOMEN: No distention. EXTREMITITES: 2+ edema. Scrotal edema noted. Objective - Vital Signs Vital signs: Vital Signs Temp 97.9 F 10/22/24 08:00 Pulse 84 10/22/24 08:25 Resp 19 10/22/24 08:00 BP 106/62 10/22/24 08:00 Pulse Ox 98 10/22/24 08:00 FiO2 40 10/22/24 08:22 Intake & Output 10/21/24 10/22/24 10/22/24 18:59 06:59 18:59 Intake Total 1245 1219.498 196 Output Total 2835 2200 250 Balance -1590 -980.502 -54 Weight 98 kg 92.1 kg Intake: IV 189 96 16 0.9 Normal Saline 50 60 10 Cefepime 2 gm In Sodium 100 Chloride 0.9% 100 ml @ 25 mls/hr IVPB Q8HR PITO Rx# :[id number] Normal Saline Pressure 39 36 6 Bag Intake, IV Titration 200 343.498 100 Amount Cefepime 2 gm In Sodium 100 Chloride 0.9% 100 ml @ 25 mls/hr IVPB Q8HR PITO Rx# :[id number] propofoL 1,000 mg In 200 343.498 Empty Bag 1 bag @ 15 MCG/ KG/MIN 8.361 mls/hr IV . [id number] PITO Rx#:[id number] Tube Feeding 556 480 80 Other 300 300 Output: Urine 2835 2200 250 Other: Voiding Method Indwelling Catheter Indwelling Catheter # Bowel Movements 1 ABP, PAP, CO, CI - Last Documented Arterial Blood Pressure 129/49 - Labs CBC & Chem 7: 10/22/24 05:40 10/22/24 05:40 Labs: Abnormal Lab Results - Last 24 Hours (Table) 10/21/24 10/21/24 10/21/24 Range/Units 12:15 18:15 20:00 RBC (4.30-5.90) m/uL Hgb (13.0-17.5) gm/dL Hct (39.0-53.0) % MCV (80.0-100.0) fL RDW (11.5-15.5) % Macrocytosis ABG pH (7.35-7.45) ABG pCO2 (35-45) mmHg ABG HCO3 (21-25) mmol/L ABG Total CO2 (19-24) mmol/L ABG O2 Saturation (94-97) % Hemoglobin (13.0-17.5) gm/dL Chloride (98-107) mmol/L BUN (9-20) mg/dL Creatinine (0.66-1.25) mg/dL POC Glucose (mg/dL) 238 H 208 H 172 H (70-110) mg/dL Calcium (8.4-10.2) mg/dL 10/21/24 10/22/24 10/22/24 Range/Units 23:20 05:15 05:40 RBC 2.31 L (4.30-5.90) m/uL Hgb 7.9 L (13.0-17.5) gm/dL Hct 24.8 L (39.0-53.0) % MCV 107.2 H (80.0-100.0) fL RDW 16.0 H (11.5-15.5) % Macrocytosis Marked A ABG pH 7.50 H (7.35-7.45) ABG pCO2 34 L (35-45) mmHg ABG HCO3 27 H (21-25) mmol/L ABG Total CO2 28 H (19-24) mmol/L ABG O2 Saturation 98.5 H (94-97) % Hemoglobin 7.7 L (13.0-17.5) gm/dL Chloride (98-107) mmol/L BUN (9-20) mg/dL Creatinine (0.66-1.25) mg/dL POC Glucose (mg/dL) 139 H (70-110) mg/dL Calcium (8.4-10.2) mg/dL 10/22/24 Range/Units 05:40 RBC (4.30-5.90) m/uL Hgb (13.0-17.5) gm/dL Hct (39.0-53.0) % MCV (80.0-100.0) fL RDW (11.5-15.5) % Macrocytosis ABG pH (7.35-7.45) ABG pCO2 (35-45) mmHg ABG HCO3 (21-25) mmol/L ABG Total CO2 (19-24) mmol/L ABG O2 Saturation (94-97) % Hemoglobin (13.0-17.5) gm/dL Chloride 111 H (98-107) mmol/L BUN 43 H (9-20) mg/dL Creatinine 1.85 H (0.66-1.25) mg/dL POC Glucose (mg/dL) (70-110) mg/dL Calcium 8.1 L (8.4-10.2) mg/dL Microbiology - Last 24 Hours (Table) 10/17/24 13:07 Anaerobic Culture - Final Pleural Fluid 10/17/24 13:07 Gram Stain - Final Pleural Fluid Body Fluid Culture - Final 10/18/24 15:00 Gram Stain - Final Sputum Sputum Culture - Final Assessment and Plan Plan: Assessment: 1. Acute kidney injury secondary to ATN secondary to septic shock and rhabdo myolysis. Creatinine 3.18 on admission and improved to 0.89 dated October 16, 2024 -now worsening with diuresis. Creatinine 1.85 today. No hydronephrosis noted on kidney ultrasound. 2. Rhabdomyolysis secondary to immobility. Resolved. 3. Strep bacteremia on antibiotics. Being treated for pneumonia. Status post bronchoscopy October 18, 2024. 4. Anion gap metabolic acidosis secondary to acute kidney injury and lactic acidosis. Now due to IV fluids. Status post bicarb drip. 5. Hypernatremia from lack of oral water intake. Status post D5W. Improved. 6. Hypomagnesemia from poor intake and alcohol abuse. Replaced. Improved. 7. History of alcohol abuse. 8. Hypocalcemia secondary to acute kidney injury as well as intracellular shifting from bicarb. PTH 112. Vitamin D level 26.5. On vitamin D. Corrected calcium in the normal range. 9. A-fib with RVR maintained on amiodarone and Lopressor. 10. Volume overload. Improving with diuresis. 11. Acute blood loss anemia status post blood transfusion this admission. Plan: Maintain IV Lasix. Receiving tube feeds. Avoid nephrotoxins. Continue to monitor renal function and urine output. Wean FiO2. Replace potassium as needed.
[2024-10-22 12:07] LABS: Glucose,Whole Blood 197 mg/dL (70-110)
--- NOTE | 2024-10-22 13:07 | P.PN ---
Subjective Progress Note Date: 10/22/24 Principal diagnosis: Acute hypoxic respiratory failure with left lower lobe pneumonia and significant mucous plugs with metabolic encephalopathy as well as septic shock Patient is a 64-year-old male who is being seen in the ICU due to hypovolemic shock and rhabdomyolysis. He is a poor historian due to altered mental status and unresponsiveness. All history is obtained from the chart. He initially presented to the emergency department after being found facedown on the ground with a contusion to his forehead and abrasions to his knee and left toes. She stated that he had been having nausea and vomiting for a day prior to being found down. He was noted to have diarrhea as well. Patient is a daily drinker and consumes about a fifth per day according to the notes he has not drank for the 2 days prior to this admission. He also has a history of type 1 diabetes mellitus. Initial EKG showed sinus tachycardia. Head/cervical spine CT showed no acute intracranial process and no acute fracture or traumatic subluxation of the cervical spine. Initial chest x-ray showed right middle lobe scarring/atelectasis, no acute pulmonary process. He had received 4 L of normal saline. Initial labs showed CK level of 18,113, WBCs 10.7, hemoglobin 12.5, sodium 126, creatinine 3.18 lactic acid 6.9, AST 401, ALT 65. Preliminary blood culture showed gram-positive cocci and patient was started on vancomycin. On 10/20/2024, the patient remains sedated on propofol. Arousable and moving all 4 extremities. He is status post reintubation on 10/18/2024 and is status post bronchoscopy x 2 with evacuation of mucous plugs from his left lower lobe. The patient has Enterobacter erogenous in his sputum and the patient remains on IV cefepime. This morning, he remains on assist-control mode with rate of 14, tidal volume of 500, FiO2 of 50% with a PEEP of 10. Blood gas shows significant improvement oxygenation and the pO2 is up to 153 and a pH is at 7.4 with a pCO2 of 41. The patient remains on low-dose norepinephrine at 0.04 mcg/kg/min. He remains on IV heparin for paroxysmal A-fib. Hemoglobin dropped down to 6.7 and the patient is going to receive a unit of packed RBC. Creatinine is up to 1.5. He remains on vital high-protein at rate of 40 cc an hour. Fluid balance is +1.2 L over the past 24 hours. He is afebrile. Patient was seen today on 10/21/24, patient remains in the ICU, patient is on mechanical ventilation with assist-control rate of 14 tidal volume 500 FiO2 40% and PEEP of 6 ABG showed a pO2 of 27 pCO2 34 pH of 7.47. No changes were made in vent settings. Patient remains on propofol at 40 mcg/kg/min, received a unit of packed RBCs yesterday for low hemoglobin. Remains on vital HP patient is receiving cefepime for Enterobacter around [place] and his sputum. Patient had strep a in the right knee joint patient is covered with cefepime remains on Lasix 40 mg IV push daily his initial presentation to the hospital was when he was found facedown on the ground with a contusion on his forehead and abrasion on his left knee as well as left toes. Patient is known to be a heavy drinker, consumes 1/5/day according to the notes in the chart. Patient is also known to have type 1 diabetes, intubation on 10/10/2024 following his knee surgery patient was extubated on 10/15, however he had to be reintubated on 10/18 bronchoscopy was done for extensive pneumonia involving the left lower lobe and mucous plugs were suctioned. Patient also had another bronchoscopy on 09/22 with improvement in his chest x-ray findings and left lower lobe pneumonia. Sputum cultures have been positive for Enterobacter allergies. Has been on IV cefepime WBC count today 6.3 hemoglobin 7.8 metabolic profile is normal BUN is 42 creatinine 1.67. Chest x-ray continues to show bibasilar airspace disease left lower lobe more so than right lower lobe Patient was eval today and 10/22/2024, patient remains in the ICU, intubated and mechanically ventilated, on assist-control rate of 14 tidal volume 500 FiO2 40% PEEP of 6 ABG showed a pO2 of 93 pCO2 34 pH of 7.50 peak airway pressure is 23 Plateau pressure is 16 continues to have some clear yellow sputum that is easily suctioned will not require bronchoscopy today considering the easily suctioned the mucus secretions. Patient is on propofol at 40 mcg/kg/min vital HP at 40 mL/h IV fluid at KVO patient remains on antibiotics in the form of cefepime, he has Enterococcus in the sputum and he had strep pain from his knee. Leg susi on Lasix 40 mg twice daily chest x-ray is showing slight improvement in his bibasilar pneumonia hence I am not recommending bronchoscopy today I will try to give the patient a trial of weaning if possible. Labs today were reviewed WBC count is 5.8 hemoglobin 7.9 platelets are 306, electrolytes are normal BUN is 43 creatinine 1.85 Objective - Vital Signs Vital signs: Vital Signs Temp 97.9 F 10/22/24 08:00 Pulse 100 10/22/24 12:48 Resp 17 10/22/24 12:00 BP 109/58 10/22/24 12:00 Pulse Ox 96 10/22/24 12:00 FiO2 40 10/22/24 09:56 Intake & Output 10/21/24 10/22/24 10/22/24 18:59 06:59 18:59 Intake Total 1245 1219.498 518.434 Output Total 2835 2200 1575 Balance -1590 -980.502 -1056.566 Weight 98 kg 92.1 kg 92.1 kg Intake: IV 189 96 140 0.9 Normal Saline 50 60 25 Cefepime 2 gm In Sodium 100 100 Chloride 0.9% 100 ml @ 25 mls/hr IVPB Q8HR PITO Rx# :[id number] Normal Saline Pressure 39 36 15 Bag Intake, IV Titration 200 343.498 158.434 Amount Cefepime 2 gm In Sodium 100 Chloride 0.9% 100 ml @ 25 mls/hr IVPB Q8HR PITO Rx# :[id number] propofoL 1,000 mg In 200 343.498 58.434 Empty Bag 1 bag @ 15 MCG/ KG/MIN 8.361 mls/hr IV . [id number] PITO Rx#:[id number] Tube Feeding 556 480 120 Other 300 300 100 Output: Urine 2835 2200 1575 Other: Voiding Method Indwelling Catheter Indwelling Catheter Indwelling Catheter # Bowel Movements 1 ABP, PAP, CO, CI - Last Documented Arterial Blood Pressure 117/43 - Exam Physical examination: Reveals 64-year-old white male intubated mechanically ventilated, on propofol, follows simple instructions. Head exam was generally normal. There was no scleral icterus or corneal arcus. Mucous membranes were moist. Neck supple. Full range of motion. No adenopathy thyromegaly or neck vein distention. Cardiovascular examination reveals regular rhythm rate. S1-S2 normal. No S3 or S4. Lungs crackles at the bases and scattered rhonchi. Abdomen soft, without bowel sounds. No masses or tenderness. Extremities clubbing or cyanosis, right knee surgical wound site is dry clean and intact. Right knee is slightly swollen. Surgical sites are clean kin reveals multiple abrasions and bruises. Neurologically, sedated, but arousable, and I was able to instruct him to follow certain instructions and he was able to do so. Psychiatric: Seems to have normal mood affect and normal status - Labs CBC & Chem 7: 10/22/24 05:40 10/22/24 05:40 Labs: Abnormal Lab Results - Last 24 Hours (Table) 10/21/24 10/21/24 10/21/24 Range/Units 18:15 20:00 23:20 RBC (4.30-5.90) m/uL Hgb (13.0-17.5) gm/dL Hct (39.0-53.0) % MCV (80.0-100.0) fL RDW (11.5-15.5) % Macrocytosis ABG pH (7.35-7.45) ABG pCO2 (35-45) mmHg ABG HCO3 (21-25) mmol/L ABG Total CO2 (19-24) mmol/L ABG O2 Saturation (94-97) % Hemoglobin (13.0-17.5) gm/dL Chloride (98-107) mmol/L BUN (9-20) mg/dL Creatinine (0.66-1.25) mg/dL POC Glucose (mg/dL) 208 H 172 H 139 H (70-110) mg/dL Calcium (8.4-10.2) mg/dL 10/22/24 10/22/24 10/22/24 Range/Units 05:15 05:40 05:40 RBC 2.31 L (4.30-5.90) m/uL Hgb 7.9 L (13.0-17.5) gm/dL Hct 24.8 L (39.0-53.0) % MCV 107.2 H (80.0-100.0) fL RDW 16.0 H (11.5-15.5) % Macrocytosis Marked A ABG pH 7.50 H (7.35-7.45) ABG pCO2 34 L (35-45) mmHg ABG HCO3 27 H (21-25) mmol/L ABG Total CO2 28 H (19-24) mmol/L ABG O2 Saturation 98.5 H (94-97) % Hemoglobin 7.7 L (13.0-17.5) gm/dL Chloride 111 H (98-107) mmol/L BUN 43 H (9-20) mg/dL Creatinine 1.85 H (0.66-1.25) mg/dL POC Glucose (mg/dL) (70-110) mg/dL Calcium 8.1 L (8.4-10.2) mg/dL 10/22/24 Range/Units 12:06 RBC (4.30-5.90) m/uL Hgb (13.0-17.5) gm/dL Hct (39.0-53.0) % MCV (80.0-100.0) fL RDW (11.5-15.5) % Macrocytosis ABG pH (7.35-7.45) ABG pCO2 (35-45) mmHg ABG HCO3 (21-25) mmol/L ABG Total CO2 (19-24) mmol/L ABG O2 Saturation (94-97) % Hemoglobin (13.0-17.5) gm/dL Chloride (98-107) mmol/L BUN (9-20) mg/dL Creatinine (0.66-1.25) mg/dL POC Glucose (mg/dL) 197 H (70-110) mg/dL Calcium (8.4-10.2) mg/dL Microbiology - Last 24 Hours (Table) 10/17/24 13:07 Anaerobic Culture - Final Pleural Fluid 10/17/24 13:07 Gram Stain - Final Pleural Fluid Body Fluid Culture - Final 10/18/24 15:00 Gram Stain - Final Sputum Sputum Culture - Final Assessment and Plan Assessment: Impression: Acute hypoxic respiratory failure Acute left lower lobe pneumonia Acute metabolic encephalopathy Septic shock, resolved Right-sided pleural effusion requiring thoracentesis and 400 cc of fluid removed Septic arthritis of the right knee requiring surgery cultures positive for strep A, remains on antibiotics/IV cefepime Chronic back pain may need MRI of the lumbosacral spine Chronic alcohol abuse and acute alcohol withdrawal syndrome recovered Postoperative day #11, status post arthroscopy and arthroscopic lavage and debridement of right knee with partial medial meniscectomy and medial femoral condyle and medial tibial plateau chondroplasty Acute kidney injury, patient is now off vancomycin Acute on chronic anemia History of underlying coronary artery disease and previous stent placement History of LV dysfunction and cardiomyopathy with ejection fraction of 45% Paroxysmal atrial fibrillation currently patient is in sinus rhythm. On amiodarone and heparin drip Type 1 diabetes GERD without esophagitis Dyslipidemia History of RI History of degenerative joint disease Recommendation: Continue ventilatory support, however I plan to hold sedation today address weaning, patient will have weaning parameters and if they seem to be reasonable may proceed to pressure support of 8 and CPAP, and if tolerated may proceed to extubating the patient Continue antibiotics/cefepime Chest x-ray and based on the fact that his secretions are suctioned easily no need for bronchoscopy today Continue IV heparin, consider transitioning to Eliquis or Xarelto Continue GI prophylaxis Continue insulin MRI of thoracic spine after extubation or when patient is medically stable, and extubated hopefully in the next couple of days Continue IV Protonix Continue diuretics as needed Patient remains critically ill Critical care time is over 30 minutes Time with Patient: Greater than 30
--- NOTE | 2024-10-22 14:29 | P.PN ---
Subjective Progress Note Date: 10/22/24 64-year-old male who is being seen in the ICU due to hypovolemic shock and rhabdomyolysis. He is a poor historian due to altered mental status and unresponsiveness. All history is obtained from the chart. He initially presented to the emergency department after being found facedown on the ground with a contusion to his forehead and abrasions to his knee and left toes. She stated that he had been having nausea and vomiting for a day prior to being found down. He was noted to have diarrhea as well. Patient is a daily drinker and consumes about a fifth per day according to the notes he has not drank for the 2 days prior to this admission. He also has a history of type 1 diabetes mellitus. Initial EKG showed sinus tachycardia. Head/cervical spine CT showed no acute intracranial process and no acute fracture or traumatic subluxation of the cervical spine. Initial chest x-ray showed right middle lobe scarring/atelectasis, no acute pulmonary process. He had received 4 L of normal saline. Initial labs showed CK level of 18,113, WBCs 10.7, hemoglobin 12.5, sodium 126, creatinine 3.18 lactic acid 6.9, AST 401, ALT 65. Preliminary blood culture showed gram-positive cocci and patient was started on vancomycin. 24-hour interval change 10/12/2024 -- Patient is evaluated in the ICU. He remains intubated on mechanical ventilation - ABG shows pH 7.42, pCO2 38, pO2 74. - He is maintained on vasopressin 0.02 units/min, normal saline at 20 cc/h, IV hydrocortisone 50 mg every 6 hours, and Kefzol day 5. Labs are reviewed WBCs 17.4, hemoglobin 8.2, hematocrit 25.2, platelets 53, sodium 142, potassium 3.7, chloride 116, CO2 23, BUN 39, creatinine 1.18, gluco se 258. Ionized calcium 4.4. Magnesium 1.8. Today's chest x-ray is unchanged. Wound culture gram stain of the right knee preliminary report shows rare gram positive cocci. 10/13/2024 Patient is seen and evaluated in ICU at bedside; remains on the mechanical ventilator. Discussed with nursing staff. Concerns about elevated blood sugars; patient was placed on home dose of Lantus which did not help much - Blood gases show pO2 72, pCO2 41, and pH is 7.42. - The patient is on propofol at 35 mcg/kg/min, saline at 20 cc an hour, and vital high-protein at 60, with goal of 70. Yesterday, he had a brief spontaneous breathing trial, and he did poorly. Today he will again have a spontaneous breathing trial, of pressure support of 5 and CPAP of 5. He continues on Ancef. White count 18.8, hemoglobin 8.2, hematocrit 25.8, platelet count 78,000. Sodium 144, potassium 4.1, chlorides 117, CO2 26, BUN 47, creatinine 1.18. Glucose is 340. Albumin is 2.1. Previous blood cultures from October 06 show group A streptococci. Chest x-ray shows bibasilar infiltrates. -- For hyperglycemia I will increase dose of Lantus and add insulin lispro every 4 hours; continue with current sliding scale 10/14/2024 Patient is seen in follow-up today continues on Precedex and attempting to wean maintained on mechanical ventilation with an FiO2 of 50% PEEP is 5. Per nursing staff attempting sedation holiday although did not go well yesterday. Patient is maintained on antibiotics with infectious disease following and patient is status post right knee aspiration with preliminary culture showing strep a with positive blood cultures. Patient continues with significant swelling especially the scrotal area maintained on IV Lasix and will continue. No discussion of PEG and trach as of yet and patient remains full code. Prognosis is guarded. 10/15/2024 Patient is seen this morning continues to be in the ICU currently working on weaning FiO2 and undergoing sedation holiday. Patient is eye tracking and following commands and per pulmonary commercial counsel working on extubation today. Will await official report and monitor closely. Patient is continued on antibiotics with infectious disease following. 10/16/2024 Patient is seen in follow-up this morning extubated successfully currently maintained on 6 L high flow nasal cannula. Patient is awake and responding appropriately to questions and commands. Patient is extremely lethargic at times and significantly weak with significant edema noted. Sodium is elevated at 150 and is continued on D5 and water. Blood sugars have been elevated and will adjust insulins accordingly. Patient swallow eval performed and failed awaiting reevaluation with speech. Continue n.p.o. for now. White count remains elevated patient is maintained on antibiotics with infectious disease following. Awaiting repeat cultures. Procalcitonin 1.06. Questions and concerns were answered to the best of my ability with son at the bedside. 10/17/2024 Patient is evaluated today in follow up in the ICU. He was extubated yesterday. Continues on oxygen support on 100% BiPAP at this time. Cultures from the right knee arthroscopy reveals Strep A. Chest xray today reveals no change to the bibasilar opacities. Chest ultrasound reveals right pleural effusion pocket size 6.0 cm and left pleural effusion pocket size of 4.9 cm. Both sides marked for possible thoracentesis. Labs today reveal white blood cell count of 11.8, hgb 7. 5, sodium 146, potassium 3.4, BUN 43, creatinine 1.06. Blood glucose 200s. Continues on IV amiodarone, IV cefepime, IV vancomycin. Patient is in normal sinus rhythm currently heart rate in the 80s. 10/18/2024 Patient evaluated today in follow up in the ICU. He is awake alert oriented continues on BiPAP. He is status post right sided thoracentesis with 400 mL off. Chest xray today reveals stable bilateral lower lobe infiltrate and small pleural effusion. White blood cell count today 10.4. Continues on IV vancomycin and IV cefepime. Remains on IV amiodarone. on IV heparin. Patient remains NPO at this time, speech therapy to follow up today to reassess. 10/19/2024 Patient remains in the ICU. He is on the mechanical ventilator, FiO2 of 50%. Chest x-ray today shows left lower lobe pneumonia and/or atelectasis and pleural effusion. Elian in the left lung base is obscuring the left heart border and the hemidiaphragm has decreased in the interval. White blood cell count today is 8.4, hemoglobin 7.1, sodium 144, BUN of 40, creatinine of 1.43. His viral panel is negative for all viruses checked. 10/20/2024 Patient remains the intensive care unit he is currently on mechanical ventilator with an FiO2 of 50%. He is awake and alert and responding to commands. His chest x-ray reveals continued acute coronary cardiopulmonary disease involving the retrocardiac region with no significant interval change. Repeat sputum reveals Enterobacter he continues on IV cefepime at this time. Hemoglobin level today is 6.7 he will receive 1 unit of packed red blood cells. His creatinine is up to 1.51 today. Continues on oral amiodarone for the atrial fibrillation was taken off of anticoagulation secondary to the decreased hemoglobin. Patient is sedated with propofol at this time. He is also receiving IV Lasix daily prognosis remains guarded. 10/21/2024 Patient remains in the intensive care unit. Remains on the mechanical ventilator. He is currently sedated with propofol. He is alert and following commands. Chest xray unchanged continues to show pneumonia with sputum culture showing enterobacter. He remains on IV cefepime. Hemoglobin better today at 7.8. BUN 42 creatinine 1.67. 10/22/2024 Patient is evaluated today in the intensive care unit. Patient was extubated today. He is awake alert and oriented. He is complaining of some back pain. Has IV dilaudid on board. Chest xray today reveals no evidence of pleural effusion, focal consolidation, or pneumothorax. He remains edematous. Creatinine 1.87 today. On IV lasix which has been increased to BID by nephrology. 3L of urine output in the last 24 hours. Review of systems: Constitutional: No reports of fatigue, fever, or chills Cardiovascular: No reports of chest pain or palpitations Respiratory: reports of shortness of breath with a weak cough GI: No reports of nausea, vomiting, or diarrhea, : No reports of dysuria or retention Neurovascular: reports of generalized weakness and significant swelling of upp er and lower extremities reports back pain. All medications have been reviewed Physical exam: Gen: This is a 64-year-old male extubated today 10/22/24 and currently on nasal cannula., well-developed, elderly appearing, ill-appearing, appears older than stated age HEENT: Head is atraumatic, normocephalic. Pupils equal, round. Sclerae is anicteric. NECK: Supple. No JVD. No lymphadenopathy. No thyromegaly. LUNGS: Diminished breath sounds bilaterally with some bronchial congestion and coarse scattered rhonchi. No intercostal retractions. HEART: S1, S2 are muffled ABDOMEN: Soft. Somewhat taut, positive bowel sounds are present. No masses. No tenderness. Significant scrotal edema noted, minimally improved EXTREMITIES: Bilateral upper and lower extremity edema noted. No calf tenderness. Generalized upper and lower extremity edema along with scrotal swelling noted NEUROLOGICAL: Patient is awake, alert and oriented x 2-3, diffusely weak Assessment: -Chronic alcohol abuse with acute alcohol withdrawal syndrome; [facility] protocol in place; patient remains on thiamine and Protonix. -Acute hypoxic respiratory failure was intubated following knee surgery on 10/10 and successfully extubated on 10/15/24. re-intubated on 10/18/2024 and now extubated on 10/22/24. Status post bronchoscopy on 10/18. -Congestive heart failure with an EF of 45%, diastolic dysfunction -Paroxysmal atrial fibrillation transitioned to oral amiodarone Continues on IV heparin -Right sided pleural effusion status post right sided thoracentesis with 400 mL off. -Rhabdomyolysis secondary to immobility due to fall. Improving with IV hydration. We will continue to monitor strict STERLING's, daily weights, renal function electrolytes -Acute kidney injury secondary to ATN due to to septic shock and rhabdomyolysis. Was initially improving and now with worsening renal function while on hemodialysis. -Relative adrenal insufficiency. On IV hydrocortisone. -Transaminitis. Improving. -Streptococcus group A bacteremia. Currently on cefazolin per ID recommendation; continue to monitor CBC, CRP and procalcitonin. Possibly secondary to right knee infection -Right knee pain with swelling, status post aspiration along with arthroscopic lavage, culture showing strep a with septic arthritis -Hyponatremia, likely hypovolemic; resolved. -Now hypernatremic likely from free water deficit and continues on D5 water. -Type 1 diabetes mellitus; we will continue to monitor Accu-Cheks before every meal and at bedtime with insulin sliding scale. -History of coronary artery disease with previous catheterization and stent placement. -Hypertension; currently not on any antihypertensive medication. -Sepsis, present on admission possibly secondary to right knee arthritis with bacteremia GI prophylaxis DVT prophylaxis Full code Plan: Patient continues in the ICU with multiple consultations following maintained on IV antibiotics status post arthroscopy with lavage of the right knee and final cultures showing Strep A. Repeat blood cultures thus far are negative and will continue on IV antibiotics with ID following He is now s/p right sided thoracentesis with 400 mL of fluid off. Sent for cytology. Sputum culture showinsputum cultures are showing Enterobacter patient is status post bronchoscopy sputum cultures are now negative continues on IV cefepime Patient failed swallow eval and awaiting reevaluation with speech therapy, continue n.p.o. for now Blood sugars variable and uncontrolled will adjust insulins and continue with Accu-Cheks before meals and at bedtime as well as 2 AM and adjust long-acting Discussion was had with family at the bedside as well as patient and will likely need rehab on discharge. Patient will need PT/OT therapy evaluation once more stable Follow-up on repeat labs and monitor kidney functions and electrolytes closely. Sodium is better and off of the D5W at this time. Patient was given Lasix for generalized edema. Continues on IV Lasix twice daily monitoring renal function closely. Was extubated today he is awake alert and oriented at this time. Overall prognosis remains guarded at this time The impression and plan of care has been dictated by Sharlene Pendleton, Nurse Practitioner as directed. Dr. Randall MD I have performed a history and physical examination and medical decision making of this patient, discussed the same with the dictator, and agree with the dictators assessment and plan as written, documented as a scribe. Based on total visit time, I have performed more than 50% of this visit. Objective - Vital Signs Vital signs: Vital Signs Temp 97.9 F 10/22/24 08:00 Pulse 91 10/22/24 13:00 Resp 21 10/22/24 13:00 BP 107/65 10/22/24 13:00 Pulse Ox 97 10/22/24 13:00 FiO2 40 10/22/24 09:56 Intake & Output 10/21/24 10/22/24 10/22/24 18:59 06:59 18:59 Intake Total 1245 1219.498 518.434 Output Total 2835 2200 1575 Balance -1590 -980.502 -1056.566 Weight 98 kg 92.1 kg 92.1 kg Intake: IV 189 96 140 0.9 Normal Saline 50 60 25 Cefepime 2 gm In Sodium 100 100 Chloride 0.9% 100 ml @ 25 mls/hr IVPB Q8HR [facility] Rx# :[id number] Normal Saline Pressure 39 36 15 Bag Intake, IV Titration 200 343.498 158.434 Amount Cefepime 2 gm In Sodium 100 Chloride 0.9% 100 ml @ 25 mls/hr IVPB Q8HR P[facility] Rx# :[id number] propofoL 1,000 mg In 200 343.498 58.434 Empty Bag 1 bag @ 15 MCG/ KG/MIN 8.361 mls/hr IV . [id number] [facility] Rx#:[id number] Tube Feeding 556 480 120 Other 300 300 100 Output: Urine 2835 2200 1575 Other: Voiding Method Indwelling Catheter Indwelling Catheter Indwelling Catheter # Bowel Movements 1 ABP, PAP, CO, CI - Last Documented Arterial Blood Pressure 119/46 - Labs CBC & Chem 7: 10/22/24 05:40 10/22/24 05:40 Labs: Abnormal Lab Results - Last 24 Hours (Table) 10/21/24 10/21/24 10/21/24 Range/Units 18:15 20:00 23:20 RBC (4.30-5.90) m/uL Hgb (13.0-17.5) gm/dL Hct (39.0-53.0) % MCV (80.0-100.0) fL RDW (11.5-15.5) % Macrocytosis ABG pH (7.35-7.45) ABG pCO2 (35-45) mmHg ABG HCO3 (21-25) mmol/L ABG Total CO2 (19-24) mmol/L ABG O2 Saturation (94-97) % Hemoglobin (13.0-17.5) gm/dL Chloride (98-107) mmol/L BUN (9-20) mg/dL Creatinine (0.66-1.25) mg/dL POC Glucose (mg/dL) 208 H 172 H 139 H (70-110) mg/dL Calcium (8.4-10.2) mg/dL 10/22/24 10/22/24 10/22/24 Range/Units 05:15 05:40 05:40 RBC 2.31 L (4.30-5.90) m/uL Hgb 7.9 L (13.0-17.5) gm/dL Hct 24.8 L (39.0-53.0) % MCV 107.2 H (80.0-100.0) fL RDW 16.0 H (11.5-15.5) % Macrocytosis Marked A ABG pH 7.50 H (7.35-7.45) ABG pCO2 34 L (35-45) mmHg ABG HCO3 27 H (21-25) mmol/L ABG Total CO2 28 H (19-24) mmol/L ABG O2 Saturation 98.5 H (94-97) % Hemoglobin 7.7 L (13.0-17.5) gm/dL Chloride 111 H (98-107) mmol/L BUN 43 H (9-20) mg/dL Creatinine 1.85 H (0.66-1.25) mg/dL POC Glucose (mg/dL) (70-110) mg/dL Calcium 8.1 L (8.4-10.2) mg/dL 10/22/24 Range/Units 12:06 RBC (4.30-5.90) m/uL Hgb (13.0-17.5) gm/dL Hct (39.0-53.0) % MCV (80.0-100.0) fL RDW (11.5-15.5) % Macrocytosis ABG pH (7.35-7.45) ABG pCO2 (35-45) mmHg ABG HCO3 (21-25) mmol/L ABG Total CO2 (19-24) mmol/L ABG O2 Saturation (94-97) % Hemoglobin (13.0-17.5) gm/dL Chloride (98-107) mmol/L BUN (9-20) mg/dL Creatinine (0.66-1.25) mg/dL POC Glucose (mg/dL) 197 H (70-110) mg/dL Calcium (8.4-10.2) mg/dL Microbiology - Last 24 Hours (Table) 10/17/24 13:07 Anaerobic Culture - Final Pleural Fluid 10/17/24 13:07 Gram Stain - Final Pleural Fluid Body Fluid Culture - Final 10/18/24 15:00 Gram Stain - Final Sputum Sputum Culture - Final Assessment and Plan Time with Patient: Less than 30
--- NOTE | 2024-10-22 16:01 | P.PN ---
Subjective Progress Note Date: 10/22/24 Principal diagnosis: Reason for follow-up is Streptococcus agalactiae bacteremia Patient is a 64-year-old male past medical history significant for diabetes mellitus hypertension hyperlipidemia MS osteoarthritis coronary disease patient was brought into the hospital after apparently the patient was found to be facedown on the ground with contusion to his forehead and abrasion to his knee and some bloody toes, patient did have a fever subsequently blood cultures came back positive with Streptococcus agalactiae prompting this consultation. Patient noticed to have swelling of the right knee aspirate was purulent subsequently the patient did have a right knee washout completed by orthopedics on 10/10/2024. On today's evaluation that is 10/22/2024, Patient is afebrile this morning patient has been extubated and is breathing comfortably on 4 L nasal cannula oxygen denies any chest pain no worsening cough no vomiting or diarrhea reported by the family at the bedside. Patient white count is 5.8, creatinine is 1.8 5 repeat sputum has been negative chest x-ray from this morning stable appearance of the lungs Objective - Vital Signs Vital signs: Vital Signs Temp 97.9 F 10/22/24 08:00 Pulse 100 10/22/24 12:48 Resp 17 10/22/24 12:00 BP 109/58 10/22/24 12:00 Pulse Ox 96 10/22/24 12:00 FiO2 40 10/22/24 09:56 Intake & Output 10/21/24 10/22/24 10/22/24 18:59 06:59 18:59 Intake Total 1245 1219.498 518.434 Output Total 2835 2200 1575 Balance -1590 -980.502 -1056.566 Weight 98 kg 92.1 kg 92.1 kg Intake: IV 189 96 140 0.9 Normal Saline 50 60 25 Cefepime 2 gm In Sodium 100 100 Chloride 0.9% 100 ml @ 25 mls/hr IVPB Q8HR P[facility] Rx# :[id number] Normal Saline Pressure 39 36 15 Bag Intake, IV Titration 200 343.498 158.434 Amount Cefepime 2 gm In Sodium 100 Chloride 0.9% 100 ml @ 25 mls/hr IVPB Q8HR [facility] Rx# :[id number] propofoL 1,000 mg In 200 343.498 58.434 Empty Bag 1 bag @ 15 MCG/ KG/MIN 8.361 mls/hr IV . [id number] Rx#:[id number] Tube Feeding 556 480 120 Other 300 300 100 Output: Urine 2835 2200 1575 Other: Voiding Method Indwelling Catheter Indwelling Catheter Indwelling Catheter # Bowel Movements 1 ABP, PAP, CO, CI - Last Documented Arterial Blood Pressure 117/43 - Exam GENERAL DESCRIPTION: Middle-age male lying in bed in no distress RESPIRATORY SYSTEM: Unlabored breathing , coarse breath sounds bilaterally HEART: S1 S2 regular rate and rhythm , ABDOMEN: Soft , no tenderness EXTREMITIES: Swelling to the lower extremity and right knee but no redness - Labs CBC & Chem 7: 10/22/24 05:40 10/22/24 05:40 Labs: Abnormal Lab Results - Last 24 Hours (Table) 10/21/24 10/21/24 10/21/24 Range/Units 18:15 20:00 23:20 RBC (4.30-5.90) m/uL Hgb (13.0-17.5) gm/dL Hct (39.0-53.0) % MCV (80.0-100.0) fL RDW (11.5-15.5) % Macrocytosis ABG pH (7.35-7.45) ABG pCO2 (35-45) mmHg ABG HCO3 (21-25) mmol/L ABG Total CO2 (19-24) mmol/L ABG O2 Saturation (94-97) % Hemoglobin (13.0-17.5) gm/dL Chloride (98-107) mmol/L BUN (9-20) mg/dL Creatinine (0.66-1.25) mg/dL POC Glucose (mg/dL) 208 H 172 H 139 H (70-110) mg/dL Calcium (8.4-10.2) mg/dL 10/22/24 10/22/24 10/22/24 Range/Units 05:15 05:40 05:40 RBC 2.31 L (4.30-5.90) m/uL Hgb 7.9 L (13.0-17.5) gm/dL Hct 24.8 L (39.0-53.0) % MCV 107.2 H (80.0-100.0) fL RDW 16.0 H (11.5-15.5) % Macrocytosis Marked A ABG pH 7.50 H (7.35-7.45) ABG pCO2 34 L (35-45) mmHg ABG HCO3 27 H (21-25) mmol/L ABG Total CO2 28 H (19-24) mmol/L ABG O2 Saturation 98.5 H (94-97) % Hemoglobin 7.7 L (13.0-17.5) gm/dL Chloride 111 H (98-107) mmol/L BUN 43 H (9-20) mg/dL Creatinine 1.85 H (0.66-1.25) mg/dL POC Glucose (mg/dL) (70-110) mg/dL Calcium 8.1 L (8.4-10.2) mg/dL 10/22/24 Range/Units 12:06 RBC (4.30-5.90) m/uL Hgb (13.0-17.5) gm/dL Hct (39.0-53.0) % MCV (80.0-100.0) fL RDW (11.5-15.5) % Macrocytosis ABG pH (7.35-7.45) ABG pCO2 (35-45) mmHg ABG HCO3 (21-25) mmol/L ABG Total CO2 (19-24) mmol/L ABG O2 Saturation (94-97) % Hemoglobin (13.0-17.5) gm/dL Chloride (98-107) mmol/L BUN (9-20) mg/dL Creatinine (0.66-1.25) mg/dL POC Glucose (mg/dL) 197 H (70-110) mg/dL Calcium (8.4-10.2) mg/dL Microbiology - Last 24 Hours (Table) 10/17/24 13:07 Anaerobic Culture - Final Pleural Fluid 10/17/24 13:07 Gram Stain - Final Pleural Fluid Body Fluid Culture - Final 10/18/24 15:00 Gram Stain - Final Sputum Sputum Culture - Final Assessment and Plan (1) Sepsis Current Visit: Yes Status: Acute Code(s): A41.9 - SEPSIS, UNSPECIFIED ORGANISM SNOMED Code(s): 20511788 (2) Streptococcal bacteremia Current Visit: Yes Status: Acute Code(s): R78.81 - BACTEREMIA; B95.5 - UNSP STREPTOCOCCUS THE CAUSE OF DISEASES CLASSD [id number] SNOMED Code(s): 553721507785 Plan: 1patient presented to the hospital with sepsis in this patient who did have fever tachycardia elevated white count and now with evidence of streptococcal bacteremia which is usually of skin and soft tissue origin 2-patient noticed to have right knee effusion has been evaluated by orthopedics and is status post aspiration with purulent drainage subsequently did have right knee washout by orthopedic cultures are pending may need further workup including MRI of the spine when stable. Ortho is following the patient closely 3patient right knee fluid culture also came back positive with group A strep 4-patient did have left-sided pneumonia patient required reintubation and also status post bronchoscopy and lavage sputum culture so far negative, initial culture growing Enterobacter that is sensitive to cefepime 5the patient is afebrile white count normalized and the patient has been extubated patient will be treated with cefepime and continue supportive care Family at the bedside question answered Dictation was produced using [employer] dictation software. please excuse any grammatical, word or spelling errors. Time with Patient: Less than 30
[2024-10-22 18:03] LABS: Glucose,Whole Blood 308 mg/dL (70-110)
--- NOTE | 2024-10-22 23:58 | PN ---
PROGRESS NOTE SUBJECTIVE: A 64-year-old gentleman with history of coronary artery disease, chronic alcoholism, mental status changes, remains intubated and on the ventilator. He has history of paroxysmal atrial fibrillation. He remains intubated and on the vent. He is on Propofol and is following simple commands. OBJECTIVE: VITAL SIGNS: Heart rate is 82 beats per minute, blood pressure is 110/58, and respiratory rate is 18. CHEST: Diminished air entry at the bases. HEART: First and second heart sounds. Systolic murmur at the apex. ABDOMEN: Soft. EXTREMITIES: Bilateral 1+ pitting edema. LABORATORY DATA: Potassium of 3.6, BUN of 43, and creatinine of 1.8. Hemoglobin is 11.9. ASSESSMENT: 1. Coronary artery disease, status post angioplasty. 2. Paroxysmal atrial fibrillation. 3. History of blood loss anemia. 4. Vent requiring respiratory failure. 5. Encephalopathy. PLAN: The patient is on amiodarone for rhythm suppression, Lopressor, and IV Lasix. Heparin is on hold because of drop in his hemoglobin. MMODL / IJN: [id number] /
[2024-10-23 00:51] LABS: Glucose,Whole Blood 181 mg/dL (70-110)
[2024-10-23 05:04] LABS: Glucose,Whole Blood 92 mg/dL (70-110)
[2024-10-23 05:26] LABS: Basophils % (A) 0 %; Eosinophils % (A) 0 %; HCT 25.2 % (39.0-53.0); HGB 8.2 gm/dL (13.0-17.5); Hypochromasia Slight; Lymphocytes # (A) 0.9 k/uL (1.0-4.8); Lymphocytes % (A) 15 %; MCH 34.8 pg (25.0-35.0); MCHC 32.7 g/dL (31.0-37.0); MCV 106.3 fL (80.0-100.0); Macrocytosis Moderate; Mean Platelet Volume 8.9; Monocytes # (A) 0.3 k/uL (0-1.0); Monocytes % (A) 5 %; Neutrophils # (A) 4.6 k/uL (1.3-7.7); Neutrophils % (A) 76 %; Platelet Count 332 k/uL (150-450); RBC 2.37 m/uL (4.30-5.90); RDW 15.4 % (11.5-15.5)
[2024-10-23 05:49] LABS: African American GFR (CKD) 36 (>60 ml/min/1.73 sqM); Anion Gap 4 mmol/L; Blood Urea Nitrogen 46 mg/dL (9-20); Calcium 8.3 mg/dL (8.4-10.2); Carbon Dioxide 27 mmol/L (22-30); Chloride 109 mmol/L (98-107); Glucose 83 mg/dL (74-99); Non-African American GFR(CKD) 31 (>60 ml/min/1.73 sqM); Potassium 3.4 mmol/L (3.5-5.1); Sodium 140 mmol/L (137-145)
--- NOTE | 2024-10-23 08:11 | XR ---
EXAMINATION TYPE: XR chest 1V portable DATE OF EXAM: 10/23/2024 4:34 AM COMPARISON: Chest radiograph from one day prior. CLINICAL INDICATION: Male, 64 years old with history of assess lungs; TECHNIQUE: XR chest 1V portable Frontal view of the chest. FINDINGS: Lungs/Pleura: There is no evidence of pleural effusion, focal consolidation, or pneumothorax. Pulmonary vascularity: Unremarkable. Heart/mediastinum: Cardiomediastinal silhouette is unremarkable. Musculoskeletal: No acute osseous pathology. There is fixation hardware in the lower cervical spine. Removal of endotracheal nasogastric tubes. IMPRESSION: Airspace opacities predominantly in the left midlung [facility] Chanell Seals, , 10/23/2024 8:08 AM
[2024-10-23] MEDS: HEPARIN SODIUM,PORCINE 5,000 UNIT/ML 1 ML VIAL SQ SCH (08:55)
[2024-10-23] MEDS: SODIUM CHLORIDE 0.9% 1,000 ML IV SCH (08:56)
--- NOTE | 2024-10-23 09:52 | P.PN ---
Subjective Patient is seen in follow-up for acute kidney injury. Renal function worsening with diuresis. Nonoliguric. Extubated October 22, 2024. Lasix discontinued this morning. Vital signs are stable. General: No acute distress. HEENT: Intubated. LUNGS: Scattered rhonchi. HEART: Rate and Rhythm are regular. ABDOMEN: No distention. EXTREMITITES: 1+ edema. Scrotal edema noted. Objective - Vital Signs Vital signs: Vital Signs Temp 98.4 F 10/23/24 08:00 Pulse 90 10/23/24 09:00 Resp 20 10/23/24 09:00 BP 119/66 10/23/24 09:00 Pulse Ox 95 10/23/24 09:00 FiO2 40 10/22/24 09:56 Intake & Output 10/22/24 10/23/24 10/23/24 18:59 06:59 18:59 Intake Total 566.434 96 8 Output Total 2630 2285 60 Balance -2063.566 -2189 -52 Weight 92.1 kg 90.7 kg Intake: IV 188 96 8 0.9 Normal Saline 55 60 5 Cefepime 2 gm In Sodium 100 Chloride 0.9% 100 ml @ 25 mls/hr IVPB Q8HR [facility] Rx# :[id number] Normal Saline Pressure 33 36 3 Bag Intake, IV Titration 158.434 Amount Cefepime 2 gm In Sodium 100 Chloride 0.9% 100 ml @ 25 mls/hr IVPB Q8HR [facility] Rx# :[id number] propofoL 1,000 mg In 58.434 Empty Bag 1 bag @ 15 MCG/ KG/MIN 8.361 mls/hr IV . [id number] [facility] Rx#:[id number] Tube Feeding 120 Other 100 Output: Urine 2630 2285 60 Other: Voiding Method Indwelling Catheter Indwelling Catheter # Bowel Movements 1 ABP, PAP, CO, CI - Last Documented Arterial Blood Pressure 128/42 - Labs CBC & Chem 7: 10/23/24 05:04 10/23/24 05:04 Labs: Abnormal Lab Results - Last 24 Hours (Table) 10/22/24 10/22/24 10/23/24 Range/Units 12:06 18:01 00:48 RBC (4.30-5.90) m/uL Hgb (13.0-17.5) gm/dL Hct (39.0-53.0) % MCV (80.0-100.0) fL Lymphocytes # (1.0-4.8) k/uL Potassium (3.5-5.1) mmol/L Chloride (98-107) mmol/L BUN (9-20) mg/dL Creatinine (0.66-1.25) mg/dL POC Glucose (mg/dL) 197 H 308 H 181 H (70-110) mg/dL Calcium (8.4-10.2) mg/dL 10/23/24 10/23/24 Range/Units 05:04 05:04 RBC 2.37 L (4.30-5.90) m/uL Hgb 8.2 L (13.0-17.5) gm/dL Hct 25.2 L (39.0-53.0) % MCV 106.3 H (80.0-100.0) fL Lymphocytes # 0.9 L (1.0-4.8) k/uL Potassium 3.4 L (3.5-5.1) mmol/L Chloride 109 H (98-107) mmol/L BUN 46 H (9-20) mg/dL Creatinine 2.19 H (0.66-1.25) mg/dL POC Glucose (mg/dL) (70-110) mg/dL Calcium 8.3 L (8.4-10.2) mg/dL Assessment and Plan Plan: Assessment: 1. Acute kidney injury secondary to ATN secondary to septic shock and rhabdomyolysis. Creatinine 3.18 on admission and improved to 0.89 dated October 16, 2024 -now worsening with diuresis. Creatinine 2.19 today. No hydronephrosis noted on kidney ultrasound. 2. Rhabdomyolysis secondary to immobility. Resolved. 3. Strep bacteremia on antibiotics. Being treated for pneumonia. Status post bronchoscopy October 18, 2024. 4. Anion gap metabolic acidosis secondary to acute kidney injury and lactic acidosis. Now due to IV fluids. Status post bicarb drip. 5. Hypernatremia from lack of oral water intake. Status post D5W. Improved. 6. Hypomagnesemia from poor intake and alcohol abuse. Replaced. Improved. 7. History of alcohol abuse. 8. Hypocalcemia secondary to acute kidney injury as well as intracellular shifting from bicarb. PTH 112. Vitamin D level 26.5. On vitamin D. Corrected calcium in the normal range. 9. A-fib with RVR maintained on amiodarone and Lopressor. 10. Volume overload. Improved with diuresis. 11. Acute blood loss anemia status post blood transfusion this admission. Plan: Lasix discontinued this morning by ICU team. Continue to assess volume status on daily basis. Avoid nephrotoxins. Continue to monitor renal function and urine output. Replace potassium as needed.
--- NOTE | 2024-10-23 10:48 | XR ---
EXAMINATION TYPE: XR humerus RT, XR wrist limited RT, XR forearm RT, XR elbow limited RT, XR clavicle RT DATE OF EXAM: 10/23/2024 10:14 AM COMPARISON: None CLINICAL INDICATION: Male, 64 years old with history of Pain RUE; PHH, pain TECHNIQUE: XR humerus RT, XR wrist limited RT, XR forearm RT, XR elbow limited RT, XR clavicle RT 2 views of the right humerus and forearm. 2 views of the right elbow. 2 views of the right wrist. 2 views of the right clavicle. FINDINGS: Cervical fixation hardware appears intact. Clavicle appears intact. Mild degeneration changes of the before meals and glenohumeral joints with osteophyte reformation shereen nt space narrowing. Mild degeneration changes of the elbow. Joint space narrowing and osteophyte formation of the joints of the wrist and hand. Severe atheroscle rosis of the arterial vasculature most pronounced near the wrist. No evidence of fracture. No evidence for soft tissue mass or swelling. IV cannula seen near the wrist in appropriate position. IMPRESSION: 1. No acute osseous pathology. 2. Severe degeneration changes of the joints of the wrist. 3. [id number] right shoulder osteoarthrosis. [facility], , 10/23/2024 10:46 AM
--- NOTE | 2024-10-23 10:53 | P.PN ---
Subjective Progress Note Date: 10/23/24 64-year-old male who is being seen in the ICU due to hypovolemic shock and rhabdomyolysis. He is a poor historian due to altered mental status and unresponsiveness. All history is obtained from the chart. He initially presented to the emergency department after being found facedown on the ground with a contusion to his forehead and abrasions to his knee and left toes. She stated that he had been having nausea and vomiting for a day prior to being found down. He was noted to have diarrhea as well. Patient is a daily drinker and consumes about a fifth per day according to the notes he has not drank for the 2 days prior to this admission. He also has a history of type 1 diabetes mellitus. Initial EKG showed sinus tachycardia. Head/cervical spine CT showed no acute intracranial process and no acute fracture or traumatic subluxation of the cervical spine. Initial chest x-ray showed right middle lobe scarring/atelectasis, no acute pulmonary process. He had received 4 L of normal saline. Initial labs showed CK level of 18,113, WBCs 10.7, hemoglobin 12.5, sodium 126, creatinine 3.18 lactic acid 6.9, AST 401, ALT 65. Preliminary blood culture showed gram-positive cocci and patient was started on vancomycin. 24-hour interval change 10/12/2024 -- Patient is evaluated in the ICU. He remains intubated on mechanical ventilation - ABG shows pH 7.42, pCO2 38, pO2 74. - He is maintained on vasopressin 0.02 units/min, normal saline at 20 cc/h, IV hydrocortisone 50 mg every 6 hours, and Kefzol day 5. Labs are reviewed WBCs 17.4, hemoglobin 8.2, hematocrit 25.2, platelets 53, sodium 142, potassium 3.7, chloride 116, CO2 23, BUN 39, creatinine 1.18, gluco se 258. Ionized calcium 4.4. Magnesium 1.8. Today's chest x-ray is unchanged. Wound culture gram stain of the right knee preliminary report shows rare gram positive cocci. 10/13/2024 Patient is seen and evaluated in ICU at bedside; remains on the mechanical ventilator. Discussed with nursing staff. Concerns about elevated blood sugars; patient was placed on home dose of Lantus which did not help much - Blood gases show pO2 72, pCO2 41, and pH is 7.42. - The patient is on propofol at 35 mcg/kg/min, saline at 20 cc an hour, and vital high-protein at 60, with goal of 70. Yesterday, he had a brief spontaneous breathing trial, and he did poorly. Today he will again have a spontaneous breathing trial, of pressure support of 5 and CPAP of 5. He continues on Ancef. White count 18.8, hemoglobin 8.2, hematocrit 25.8, platelet count 78,000. Sodium 144, potassium 4.1, chlorides 117, CO2 26, BUN 47, creatinine 1.18. Glucose is 340. Albumin is 2.1. Previous blood cultures from October 06 show group A streptococci. Chest x-ray shows bibasilar infiltrates. -- For hyperglycemia I will increase dose of Lantus and add insulin lispro every 4 hours; continue with current sliding scale 10/14/2024 Patient is seen in follow-up today continues on Precedex and attempting to wean maintained on mechanical ventilation with an FiO2 of 50% PEEP is 5. Per nursing staff attempting sedation holiday although did not go well yesterday. Patient is maintained on antibiotics with infectious disease following and patient is status post right knee aspiration with preliminary culture showing strep a with positive blood cultures. Patient continues with significant swelling especially the scrotal area maintained on IV Lasix and will continue. No discussion of PEG and trach as of yet and patient remains full code. Prognosis is guarded. 10/15/2024 Patient is seen this morning continues to be in the ICU currently working on weaning FiO2 and undergoing sedation holiday. Patient is eye tracking and following commands and per pulmonary timber hewer working on extubation today. Will await official report and monitor closely. Patient is continued on antibiotics with infectious disease following. 10/16/2024 Patient is seen in follow-up this morning extubated successfully currently maintained on 6 L high flow nasal cannula. Patient is awake and responding appropriately to questions and commands. Patient is extremely lethargic at times and significantly weak with significant edema noted. Sodium is elevated at 150 and is continued on D5 and water. Blood sugars have been elevated and will adjust insulins accordingly. Patient swallow eval performed and failed awaiting reevaluation with speech. Continue n.p.o. for now. White count remains elevated patient is maintained on antibiotics with infectious disease following. Awaiting repeat cultures. Procalcitonin 1.06. Questions and concerns were answered to the best of my ability with son at the bedside. 10/17/2024 Patient is evaluated today in follow up in the ICU. He was extubated yesterday. Continues on oxygen support on 100% BiPAP at this time. Cultures from the right knee arthroscopy reveals Strep A. Chest xray today reveals no change to the bibasilar opacities. Chest ultrasound reveals right pleural effusion pocket size 6.0 cm and left pleural effusion pocket size of 4.9 cm. Both sides marked for possible thoracentesis. Labs today reveal white blood cell count of 11.8, hgb 7. 5, sodium 146, potassium 3.4, BUN 43, creatinine 1.06. Blood glucose 200s. Continues on IV amiodarone, IV cefepime, IV vancomycin. Patient is in normal sinus rhythm currently heart rate in the 80s. 10/18/2024 Patient evaluated today in follow up in the ICU. He is awake alert oriented continues on BiPAP. He is status post right sided thoracentesis with 400 mL off. Chest xray today reveals stable bilateral lower lobe infiltrate and small pleural effusion. White blood cell count today 10.4. Continues on IV vancomycin and IV cefepime. Remains on IV amiodarone. on IV heparin. Patient remains NPO at this time, speech therapy to follow up today to reassess. 10/19/2024 Patient remains in the ICU. He is on the mechanical ventilator, FiO2 of 50%. Chest x-ray today shows left lower lobe pneumonia and/or atelectasis and pleural effusion. Elian in the left lung base is obscuring the left heart border and the hemidiaphragm has decreased in the interval. White blood cell count today is 8.4, hemoglobin 7.1, sodium 144, BUN of 40, creatinine of 1.43. His viral panel is negative for all viruses checked. 10/20/2024 Patient remains the intensive care unit he is currently on mechanical ventilator with an FiO2 of 50%. He is awake and alert and responding to commands. His chest x-ray reveals continued acute coronary cardiopulmonary disease involving the retrocardiac region with no significant interval change. Repeat sputum reveals Enterobacter he continues on IV cefepime at this time. Hemoglobin level today is 6.7 he will receive 1 unit of packed red blood cells. His creatinine is up to 1.51 today. Continues on oral amiodarone for the atrial fibrillation was taken off of anticoagulation secondary to the decreased hemoglobin. Patient is sedated with propofol at this time. He is also receiving IV Lasix daily prognosis remains guarded. 10/21/2024 Patient remains in the intensive care unit. Remains on the mechanical ventilator. He is currently sedated with propofol. He is alert and following commands. Chest xray unchanged continues to show pneumonia with sputum culture showing enterobacter. He remains on IV cefepime. Hemoglobin better today at 7.8. BUN 42 creatinine 1.67. 10/22/2024 Patient is evaluated today in the intensive care unit. Patient was extubated today. He is awake alert and oriented. He is complaining of some back pain. Has IV dilaudid on board. Chest xray today reveals no evidence of pleural effusion, focal consolidation, or pneumothorax. He remains edematous. Creatinine 1.87 today. On IV lasix which has been increased to BID by nephrology. 3L of urine output in the last 24 hours. 10/23/2024 Patient evaluated today in follow up in the ICU. Currently on 2L of oxygen via nasal cannula with saturations of 99%. Remains on IV cefepime. Chest xray today reveals left lung airspace opacity. Creatinine up to 2.1 today IV lasix has been discontinued. Patient has been placed on normal saline at 75 mls/hr. Speech therapy re consulted for swallow evaluation post extubation. Review of systems: Constitutional: No reports of fatigue, fever, or chills Cardiovascular: No reports of chest pain or palpitations Respiratory: reports of shortness of breath with a weak cough GI: No reports of nausea, vomiting, or diarrhea, : No reports of dysuria or retention Neurovascular: reports of generalized weakness and significant swelling of upper and lower extremities reports back pain. All medications have been reviewed Physical exam: Gen: This is a 64-year-old male extubated today 10/22/24 and currently on nasal cannula., well-developed, elderly appearing, ill-appearing, appears older than stated age HEENT: Head is atraumatic, normocephalic. Pupils equal, round. Sclerae is anicteric. NECK: Supple. No JVD. No lymphadenopathy. No thyromegaly. LUNGS: Diminished breath sounds bilaterally with some bronchial congestion and coarse scattered rhonchi. No intercostal retractions. HEART: S1, S2 are muffled ABDOMEN: Soft. Somewhat taut, positive bowel sounds are present. No masses. No tenderness. Significant scrotal edema noted, minimally improved EXTREMITIES: Bilateral upper and lower extremity edema noted. No calf tenderness. Generalized upper and lower extremity edema along with scrotal swelling noted NEUROLOGICAL: Patient is awake, alert and oriented x 2-3, diffusely weak Assessment: -Chronic alcohol abuse with acute alcohol withdrawal syndrome; [facility] protocol in place; patient remains on thiamine and Protonix. -Acute hypoxic respiratory failure was intubated following knee surgery on 10/10 and successfully extubated on 10/15/24. re-intubated on 10/18/2024 and now extubated on 10/22/24. Status post bronchoscopy on 10/18. -Congestive heart failure with an EF of 45%, diastolic dysfunction -Paroxysmal atrial fibrillation transitioned to oral amiodarone Continues on IV heparin -Right sided pleural effusion status post right sided thoracentesis with 400 mL off. -Rhabdomyolysis secondary to immobility due to fall. Improving with IV hydration. We will continue to monitor strict STERLING's, daily weights, renal fun ction electrolytes -Acute kidney injury secondary to ATN due to to septic shock and rhabdomyolysis. Was initially improving and now with worsening renal function while on hemodialysis. -Relative adrenal insufficiency. On IV hydrocortisone. -Transaminitis. Improving. -Streptococcus group A bacteremia. Currently on cefazolin per ID recommendation; continue to monitor CBC, CRP and procalcitonin. Possibly secondary to right knee infection -Right knee pain with swelling, status post aspiration along with arthroscopic lavage, culture showing strep a with septic arthritis -Hyponatremia, likely hypovolemic; resolved. -Now hypernatremic likely from free water deficit and continues on D5 water. -Type 1 diabetes mellitus; we will continue to monitor Accu-Cheks before every meal and at bedtime with insulin sliding scale. -History of coronary artery disease with previous catheterization and stent placement. -Hypertension; currently not on any antihypertensive medication. -Sepsis, present on admission possibly secondary to right knee arthritis with bacteremia GI prophylaxis DVT prophylaxis Full code Plan: Patient continues in the ICU with multiple consultations following maintained on IV antibiotics status post arthroscopy with lavage of the right knee and final cultures showing Strep A. Repeat blood cultures thus far are negative and will continue on IV antibiotics with ID following He is now s/p right sided thoracentesis with 400 mL of fluid off. Sent for cytology. Sputum culture showinsputum cultures are showing Enterobacter patient is status post bronchoscopy sputum cultures are now negative continues on IV cefepime Speech therapy has been reconsulted post extubation. Blood sugars variable and uncontrolled will adjust insulins and continue with Accu-Cheks before meals and at bedtime as well as 2 AM and adjust long-acting Discussion was had with family at the bedside as well as patient and will likely need rehab on discharge. Patient will need PT/OT therapy evaluation once more stable Follow-up on repeat labs and monitor kidney functions and electrolytes closely. Due to the worsening renal function, lasix has been discontinued and patient has been started on normal saline at 75 mls./hr. Was extubated today he is awake alert and oriented at this time. Physical therapy and occupational therapy have been re-consulted. Overall prognosis remains guarded at this time The impression and plan of care has been dictated by Sharlene Pendleton, Prac titioner as directed. Dr. Randall MD I have performed a history and physical examination and medical decision making of this patient, discussed the same with the dictator, and agree with the dictators assessment and plan as written, documented as a scribe. Based on total visit time, I have performed more than 50% of this visit. Objective - Vital Signs Vital signs: Vital Signs Temp 98.4 F 10/23/24 08:00 Pulse 82 10/23/24 10:00 Resp 20 10/23/24 10:00 BP 119/66 10/23/24 10:00 Pulse Ox 99 10/23/24 10:00 FiO2 40 10/22/24 09:56 Intake & Output 10/22/24 10/23/24 10/23/24 18:59 06:59 18:59 Intake Total 566.434 96 32 Output Total 2630 7425 320 Balance -2063.566 -2189 -288 Weight 92.1 kg 90.7 kg Intake: IV 188 96 32 0.9 Normal Saline 55 60 20 Cefepime 2 gm In Sodium 100 Chloride 0.9% 100 ml @ 25 mls/hr IVPB Q8HR [facility] Rx# :[id number] Normal Saline Pressure 33 36 12 Bag Intake, IV Titration 158.434 Amount Cefepime 2 gm In Sodium 100 Chloride 0.9% 100 ml @ 25 mls/hr IVPB Q8HR [facility] Rx# :[id number] propofoL 1,000 mg In 58.434 Empty Bag 1 bag @ 15 MCG/ KG/MIN 8.361 mls/hr IV . [id number] [facility] Rx#:[id number] Tube Feeding 120 Other 100 Output: Urine 2630 2285 320 Other: Voiding Method Indwelling Catheter Indwelling Catheter Indwelling Catheter # Bowel Movements 1 ABP, PAP, CO, CI - Last Documented Arterial Blood Pressure 128/42 - Labs CBC & Chem 7: 10/23/24 05:04 10/23/24 05:04 Labs: Abnormal Lab Results - Last 24 Hours (Table) 10/22/24 10/22/24 10/23/24 Range/Units 12: 18:01 00:48 RBC (4.30-5.90) m/uL Hgb (13.0-17.5) gm/dL Hct (39.0-53.0) % MCV (80.0-100.0) fL Lymphocytes # (1.0-4.8) k/uL Potassium (3.5-5.1) mmol/L Chloride (98-107) mmol/L BUN (9-20) mg/dL Creatinine (0.66-1.25) mg/dL POC Glucose (mg/dL) 197 H 308 H 181 H (70-110) mg/dL Calcium (8.4-10.2) mg/dL 10/23/24 10/23/24 Range/Units 05:04 05:04 RBC 2.37 L (4.30-5.90) m/uL Hgb 8.2 L (13.0-17.5) gm/dL Hct 25.2 L (39.0-53.0) % MCV 106.3 H (80.0-100.0) fL Lymphocytes # 0.9 L (1.0-4.8) k/uL Potassium 3.4 L (3.5-5.1) mmol/L Chloride 109 H (98-107) mmol/L BUN 46 H (9-20) mg/dL Creatinine 2.19 H (0.66-1.25) mg/dL POC Glucose (mg/dL) (70-110) mg/dL Calcium 8.3 L (8.4-10.2) mg/dL Assessment and Plan Time with Patient: Less than 30
--- NOTE | 2024-10-23 11:19 | PN ---
PROGRESS NOTE HISTORY: This is a 64-year-old gentleman with history of coronary artery disease, paroxysmal atrial fibrillation, history of blood-loss anemia, and encephalopathy who was extubated yesterday. PHYSICAL EXAMINATION: GENERAL: This morning, he is answering simple questions, but still seems somewhat confused. VITAL SIGNS: He is in sinus rhythm. Heart rate is 90 beats per minute. Blood pressure is 112/60, respiratory rate 14, O2 saturation is 95%. CHEST: Reveals diminished air entry at the bases. HEART: Reveals first and second heart sounds. No gallop. ABDOMEN: Soft. EXTREMITIES: Exam of extremities reveals mild edema bilaterally. Peripheral pulses are felt. LABS: Show that the BUN is 46, creatinine is 2, potassium is 3.4. Hemoglobin is 8.2. The patient is currently on amiodarone 200 b.i.d., Lipitor 40 daily, Lasix 40 IV b.i.d., and Lopressor 12.5 b.i.d. The patient had an echocardiogram on this admission that revealed mild LV dysfunction. ASSESSMENT: Coronary artery disease, status post prior angioplasty, paroxysmal atrial fibrillation, blood loss anemia, encephalopathy. PLAN: Patient will continue current medications including amiodarone, Lipitor, Lasix, and Lopressor. Hold the anticoagulant at this time. MMODL / IJN: [id number] /
--- NOTE | 2024-10-23 11:42 | US ---
EXAMINATION TYPE: US venous doppler duplex UE RT DATE OF EXAM: 10/23/2024 COMPARISON: NONE CLINICAL INDICATION: Male, 64 years old with history of RUE pain edema; pain and edema TECHNIQUE: Grayscale, color Doppler and spectral Doppler imaging of the upper extremity. SIDE PERFORMED: right FINDINGS: Right Arm: Negative for DVT Grayscale, color doppler, spectral doppler imaging performed of the deep veins of the upper extremiti es. exam limited by edema, and patient pain and positioning IMPRESSION: 1. No evidence for right arm deep vein thrombosis. 2. Right upper extremity subcutaneous changes edema. [facility], , 10/23/2024 11:40 AM
--- NOTE | 2024-10-23 11:42 | P.PN ---
Subjective Progress Note Date: 10/23/24 Principal diagnosis: Acute hypoxic respiratory failure with left lower lobe pneumonia and significant mucous plugs with metabolic encephalopathy as well as septic shock Patient is a 64-year-old male who is being seen in the ICU due to hypovolemic shock and rhabdomyolysis. He is a poor historian due to altered mental status and unresponsiveness. All history is obtained from the chart. He initially presented to the emergency department after being found facedown on the ground with a contusion to his forehead and abrasions to his knee and left toes. She stated that he had been having nausea and vomiting for a day prior to being found down. He was noted to have diarrhea as well. Patient is a daily drinker and consumes about a fifth per day according to the notes he has not drank for the 2 days prior to this admission. He also has a history of type 1 diabetes mellitus. Initial EKG showed sinus tachycardia. Head/cervical spine CT showed no acute intracranial process and no acute fracture or traumatic subluxation of the cervical spine. Initial chest x-ray showed right middle lobe scarring/atelectasis, no acute pulmonary process. He had received 4 L of normal saline. Initial labs showed CK level of 18,113, WBCs 10.7, hemoglobin 12.5, sodium 126, creatinine 3.18 lactic acid 6.9, AST 401, ALT 65. Preliminary blood culture showed gram-positive cocci and patient was started on vancomycin. On 10/20/2024, the patient remains sedated on propofol. Arousable and moving all 4 extremities. He is status post reintubation on 10/18/2024 and is status post bronchoscopy x 2 with evacuation of mucous plugs from his left lower lobe. The patient has Enterobacter erogenous in his sputum and the patient remains on IV cefepime. This morning, he remains on assist-control mode with rate of 14, tidal volume of 500, FiO2 of 50% with a PEEP of 10. Blood gas shows significant improvement oxygenation and the pO2 is up to 153 and a pH is at 7.4 with a pCO2 of 41. The patient remains on low-dose norepinephrine at 0.04 mcg/kg/min. He remains on IV heparin for paroxysmal A-fib. Hemoglobin dropped down to 6.7 and the patient is going to receive a unit of packed RBC. Creatinine is up to 1.5. He remains on vital high-protein at rate of 40 cc an hour. Fluid balance is +1.2 L over the past 24 hours. He is afebrile. Patient was seen today on 10/21/24, patient remains in the ICU, patient is on mechanical ventilation with assist-control rate of 14 tidal volume 500 FiO2 40% and PEEP of 6 ABG showed a pO2 of 27 pCO2 34 pH of 7.47. No changes were made in vent settings. Patient remains on propofol at 40 mcg/kg/min, received a unit of packed RBCs yesterday for low hemoglobin. Remains on vital HP patient is receiving cefepime for Enterobacter around [place] and his sputum. Patient had strep a in the right knee joint patient is covered with cefepime remains on Lasix 40 mg IV push daily his initial presentation to the hospital was when he was found facedown on the ground with a contusion on his forehead and abrasion on his left knee as well as left toes. Patient is known to be a heavy drinker, consumes 1/5/day according to the notes in the chart. Patient is also known to have type 1 diabetes, intubation on 10/10/2024 following his knee surgery patient was extubated on 10/15, however he had to be reintubated on 10/18 bronchoscopy was done for extensive pneumonia involving the left lower lobe and mucous plugs were suctioned. Patient also had another bronchoscopy on 09/22 with improvement in his chest x-ray findings and left lower lobe pneumonia. Sputum cultures have been positive for Enterobacter allergies. Has been on IV cefepime WBC count today 6.3 hemoglobin 7.8 metabolic profile is normal BUN is 42 creatinine 1.67. Chest x-ray continues to show bibasilar airspace disease left lower lobe more so than right lower lobe Patient was eval today and 10/22/2024, patient remains in the ICU, intubated and mechanically ventilated, on assist-control rate of 14 tidal volume 500 FiO2 40% PEEP of 6 ABG showed a pO2 of 93 pCO2 34 pH of 7.50 peak airway pressure is 23 Plateau pressure is 16 continues to have some clear yellow sputum that is easily suctioned will not require bronchoscopy today considering the easily suctioned the mucus secretions. Patient is on propofol at 40 mcg/kg/min vital HP at 40 mL/h IV fluid at KVO patient remains on antibiotics in the form of cefepime, he has Enterococcus in the sputum and he had strep pain from his knee. Leg susi on Lasix 40 mg twice daily chest x-ray is showing slight improvement in his bibasilar pneumonia hence I am not recommending bronchoscopy today I will try to give the patient a trial of weaning if possible. Labs today were reviewed WBC count is 5.8 hemoglobin 7.9 platelets are 306, electrolytes are normal BUN is 43 creatinine 1.85 Patient was seen today on 10/23/2024, remains in the ICU, however the patient was extubated yesterday and so far he seems to be tolerating the extubation well. Patient is on 3 L nasal cannula, he is alert, but extremely slow. And complaining of right upper extremity swelling and pain. Considering the patient had a fall I will recommend x-rays of the right upper extremity and I would recommend ultrasound/venous Doppler of the right upper extremity. Patient continues to have pneumonia based on chest x-ray, left lower lobe is quite concerning patient does not have a very good cough. Hoping he does not require bronchoscopy again. In the meantime he is on cefepime. Patient had worsening of his renal functioning and I discontinued his Lasix today. He is on subcu heparin for DVT prophylax. And I do not believe the patient is quite ready to be discharged out of the ICU yet, I will keep him in the ICU for another day. And follow-up chest x-ray will be done in a.m. His WBC count is 6 hemoglobin 8.2 electrolytes are normal BUN is 46 creatinine 2.19 Objective - Vital Signs Vital signs: Vital Signs Temp 98.4 F 10/23/24 08:00 Pulse 84 10/23/24 11:20 Resp 17 10/23/24 11:00 BP 90/74 10/23/24 11:00 Pulse Ox 99 10/23/24 11:00 FiO2 40 10/22/24 09:56 Intake & Output 10/22/24 10/23/24 10/23/24 18:59 06:59 18:59 Intake Total 566.434 96 277 Output Total 2630 2285 400 Balance -2063.566 -2189 -123 Weight 92.1 kg 90.7 kg Intake: IV 188 96 37 0.9 Normal Saline 55 60 25 Cefepime 2 gm In Sodium 100 Chloride 0.9% 100 ml @ 25 mls/hr IVPB Q8HR [facility] Rx# :[id number] Normal Saline Pressure 33 36 12 Bag Intake, IV Titration 158.434 Amount Cefepime 2 gm In Sodium 100 Chloride 0.9% 100 ml @ 25 mls/hr IVPB Q8HR [facility] Rx# :[id number] propofoL 1,000 mg In 58.434 Empty Bag 1 bag @ 15 MCG/ KG/MIN 8.361 mls/hr IV . [id number] [facility] Rx#:[id number] Tube Feeding 120 240 Other 100 Output: Urine 2630 2285 400 Other: Voiding Method Indwelling Catheter Indwelling Catheter Indwelling Catheter # Bowel Movements 1 ABP, PAP, CO, CI - Last Documented Arterial Blood Pressure 128/42 - Exam Physical examination: Reveals 64-year-old white male i on 3 L nasal cannula, not in distress. Head exam was generally normal. There was no scleral icterus or corneal arcus. Mucous membranes were moist. Neck supple. Full range of motion. No adenopathy thyromegaly or neck vein distention. Cardiovascular examination reveals regular rhythm rate. S1-S2 normal. No S3 or S4. Lungs diminished breath sounds at the bases no rhonchi no wheezes Abdomen soft, without bowel sounds. No masses or tenderness. Extremities no clubbing or cyanosis, right knee surgical wound site is dry clean and intact. Right knee is slightly swollen. Surgical sites are clean right upper extremity is swollen and tender but not erythematous and no deformity noted. kin reveals multiple abrasions and bruises. Neurologically, awake, follows simple instruction, slow and lethargic Psychiatric: normal mood affect and normal but slow mental status - Labs CBC & Chem 7: 10/23/24 05:04 10/23/24 05:04 Labs: Abnormal Lab Results - Last 24 Hours (Table) 10/22/24 10/22/24 10/23/24 Range/Units 12:06 18:01 00:48 RBC (4.30-5.90) m/uL Hgb (13.0-17.5) gm/dL Hct (39.0-53.0) % MCV (80.0-100.0) fL Lymphocytes # (1.0-4.8) k/uL Potassium (3.5-5.1) mmol/L Chloride (98-107) mmol/L BUN (9-20) mg/dL Creatinine (0.66-1.25) mg/dL POC Glucose (mg/dL) 197 H 308 H 181 H (70-110) mg/dL Calcium (8.4-10.2) mg/dL 10/23/24 10/23/24 Range/Units 05:04 05:04 RBC 2.37 L (4.30-5.90) m/uL Hgb 8.2 L (13.0-17.5) gm/dL Hct 25.2 L (39.0-53.0) % MCV 106.3 H (80.0-100.0) fL Lymphocytes # 0.9 L (1.0-4.8) k/uL Potassium 3.4 L (3.5-5.1) mmol/L Chloride 109 H (98-107) mmol/L BUN 46 H (9-20) mg/dL Creatinine 2.19 H (0.66-1.25) mg/dL POC Glucose (mg/dL) (70-110) mg/dL Calcium 8.3 L (8.4-10.2) mg/dL Assessment and Plan Assessment: Impression: Acute hypoxic respiratory failure, extubated on 10/22/2024. Acute left lower lobe pneumonia Acute metabolic encephalopathy Septic shock, resolved Right-sided pleural effusion requiring thoracentesis and 400 cc of fluid removed Septic arthritis of the right knee requiring surgery cultures positive for strep A, remains on antibiotics/IV cefepime Chronic back pain may need MRI of the lumbosacral spine Chronic alcohol abuse and acute alcohol withdrawal syndrome recovered Postoperative day #12 status post arthroscopy and arthroscopic lavage and debridement of right knee with partial medial meniscectomy and medial femoral condyle and medial tibial plateau chondroplasty Acute kidney injury, patient is now off vancomycin Acute on chronic anemia History of underlying coronary artery disease and previous stent placement History of LV dysfunction and cardiomyopathy with ejection fraction of 45% Paroxysmal atrial fibrillation currently patient is in sinus rhythm. On amiodarone and heparin drip Type 1 diabetes GERD without esophagitis Dyslipidemia History of PA History of degenerative joint disease Right upper extremity swelling and pain Recommendation: Continue to monitor in the ICU Encourage incentive spirometry Continue oxygen via nasal cannula and titrate accordingly Check right upper extremity Doppler and x-rays of the right upper extremity Continue antibiotics/cefepime Continue to monitor chest x-ray findings, still concerned about his left lower lobe pneumonia may still require bronchoscopy if no improvement noted in the next few days Subcu heparin DVT prophylaxis Continue GI prophylaxis Continue insulin Continue IV Protonix Discontinue Lasix and continue to monitor renal status/renal profile Will continue to follow while in ICU Time with Patient: Less than 30
[2024-10-23 11:45] LABS: Glucose,Whole Blood 55 mg/dL (70-110)
--- NOTE | 2024-10-23 12:00 | P.PN ---
Progress Note - Text Progress Note Date: 10/23/24 Right knee septic arthropathy, status post diagnostic arthroscopy with lavage Bacteremia Chronic back pain Complex medical patient Patient was evaluated at bedside today, he is extubated on O2 via nasal canula. He is arousable, doesn't answer questions accurately. Right knee pain is minimal at rest. Back pain is present. Patient has been in bed for over 2 weeks. He has significant swelling/third spacing throughout all extremities. Right knee sutures in good position, minor effusion. MRI with/without contrast of lumbar spine will be ordered for further evaluation, pending pulmonary recommendation/clearance We will continue to follow patient daily. Please contact our service with any further questions
[2024-10-23 12:43] LABS: Glucose,Whole Blood 79 mg/dL (70-110)
[2024-10-23] MEDS: POTASSIUM CHLORIDE 20 MEQ in WATER FOR INJECTION 1 100ML.BAG IVPB STA (12:50)
[2024-10-23] MEDS: POTASSIUM CHLORIDE ER 20 MEQ TAB.ER PO STA (13:11)
[2024-10-23 13:12] LABS: Amorphous Sediment,Urine Rare /hpf; Appearance,Urine Cloudy (Clear); Bacteria,Urine Rare /hpf; Bilirubin,Urine Negative (Negative); Blood,Urine Small (Negative); Budding Yeast,Urine Many /hpf; Color,Urine Colorless; Glucose,Urine (UA) Negative (Negative); Ketones,Urine Negative (Negative); Leukocyte Esterase,Urine Negative (Negative); Mucus,Urine Rare /hpf; Nitrite,Urine Negative (Negative); Protein,Urine 2+ (Negative); RBC,Urine 8 /hpf (0-5); Specific Gravity,Urine 1.015 (1.001-1.035); Squamous Epithelial Cell,Urine 1 /hpf (0-4); Urobilinogen,Urine <2.0 mg/dL (<2.0); WBC,Urine 7 /hpf (0-5)
[2024-10-23 16:57] LABS: Glucose,Whole Blood 73 mg/dL (70-110)
[2024-10-23 20:02] LABS: Glucose,Whole Blood 110 mg/dL (70-110)
[2024-10-24 01:19] LABS: Glucose,Whole Blood 209 mg/dL (70-110)
[2024-10-24 03:21] LABS: Basophils % (A) 0 %; Eosinophils % (A) 0 %; HCT 23.4 % (39.0-53.0); HGB 7.6 gm/dL (13.0-17.5); Hypochromasia Moderate; Lymphocytes % (A) 18 %; MCH 35.1 pg (25.0-35.0); MCHC 32.3 g/dL (31.0-37.0); Macrocytosis Marked; Monocytes # (A) 0.3 k/uL (0-1.0); Monocytes % (A) 5 %; Neutrophils # (A) 4.2 k/uL (1.3-7.7); Neutrophils % (A) 73 %; Platelet Count 336 k/uL (150-450); RBC 2.16 m/uL (4.30-5.90); RDW 15.7 % (11.5-15.5); WBC 5.8 k/uL (3.8-10.6)
[2024-10-24 03:26] LABS: MCV 108.6 fL (80.0-100.0)
[2024-10-24 03:31] LABS: African American GFR (CKD) 38 (>60 ml/min/1.73 sqM); Anion Gap 3 mmol/L; Blood Urea Nitrogen 46 mg/dL (9-20); Calcium 8.3 mg/dL (8.4-10.2); Carbon Dioxide 23 mmol/L (22-30); Chloride 113 mmol/L (98-107); Glucose 146 mg/dL (74-99); Non-African American GFR(CKD) 32 (>60 ml/min/1.73 sqM); Potassium 3.5 mmol/L (3.5-5.1); Sodium 139 mmol/L (137-145)
[2024-10-24] MEDS ORDERED: Potassium Replacement Protocol 1 EACH MISC MISCELLANE PRN (04:03)
[2024-10-24] MEDS: POTASSIUM CHLORIDE 20 MEQ in WATER FOR INJECTION 1 100ML.BAG IVPB SCH (04:43)
--- NOTE | 2024-10-24 08:22 | XR ---
EXAMINATION TYPE: XR chest 1V portable DATE OF EXAM: 10/24/2024 5:58 AM COMPARISON: Chest radiograph from one day prior. CLINICAL INDICATION: Male, 64 years old with history of assess lungs; TECHNIQUE: XR chest 1V portable Frontal view of the chest. FINDINGS: Lungs/Pleura: Improved aeration of lungs on today's exam with persistent airspace opacities scattered throughout the lungs. No evidence of pneumothorax or large pleural effusion. Pulmonary vascularity: Unremarkable. Heart/mediastinum: Cardiomediastinal silhouette is unremarkable. Musculoskeletal: No acute osseous pathology. There is fixation hardware in the lower cervical spine. IMPRESSION: Improved aeration of the lungs with persistent multifocal airspace opacities. [facility], , 10/24/2024 8:20 AM
--- NOTE | 2024-10-24 09:12 | P.PN ---
Subjective Progress Note Date: 10/23/24 Principal diagnosis: Reason for follow-up is Streptococcus agalactiae bacteremia Patient is a 64-year-old male past medical history significant for diabetes mellitus hypertension hyperlipidemia DE osteoarthritis coronary disease patient was brought into the hospital after apparently the patient was found to be facedown on the ground with contusion to his forehead and abrasion to his knee and some bloody toes, patient did have a fever subsequently blood cultures came back positive with Streptococcus agalactiae prompting this consultation. Patient noticed to have swelling of the right knee aspirate was purulent subsequently the patient did have a right knee washout completed by orthopedics on 10/10/2024. On today's evaluation that is 10/23/2024,the patient did have a low-grade fever of 100 F at 4 AM patient is afebrile since then patient is breathing comfort ably on 2 L nasal cannula oxygen patient denies having any chest pain occasional cough no vomiting or diarrhea has been reported appetite slowly improving. Patient white count is 6.0 creatinine is 2.19 Objective - Vital Signs Vital signs: Vital Signs Temp 98.4 F 10/23/24 08:00 Pulse 82 10/23/24 10:00 Resp 20 10/23/24 10:00 BP 119/66 10/23/24 10:00 Pulse Ox 99 10/23/24 10:00 FiO2 40 10/22/24 09:56 Intake & Output 10/22/24 10/23/24 10/23/24 18:59 06:59 18:59 Intake Total 566.434 96 32 Output Total 2630 2285 320 Balance -2063.566 -2189 -288 Weight 92.1 kg 90.7 kg Intake: IV 188 96 32 0.9 Normal Saline 55 60 20 Cefepime 2 gm In Sodium 100 Chloride 0.9% 100 ml @ 25 mls/hr IVPB Q8HR [facility] Rx# :[id number] Normal Saline Pressure 33 36 12 Bag Intake, IV Titration 158.434 Amount Cefepime 2 gm In Sodium 100 Chloride 0.9% 100 ml @ 25 mls/hr IVPB Q8HR [facility] Rx# :[id number] propofoL 1,000 mg In 58.434 Empty Bag 1 bag @ 15 MCG/ KG/MIN 8.361 mls/hr IV . [id number] [facility] Rx#:[id number] Tube Feeding 120 Other 100 Output: Urine 2630 2285 320 Other: Voiding Method Indwelling Catheter Indwelling Catheter Indwelling Catheter # Bowel Movements 1 ABP, PAP, CO, CI - Last Documented Arterial Blood Pressure 128/42 - Exam GENERAL DESCRIPTION: Middle-age male lying in bed in no distress RESPIRATORY SYSTEM: Unlabored breathing , coarse breath sounds bilaterally HEART: S1 S2 regular rate and rhythm , ABDOMEN: Soft , no tenderness EXTREMITIES: Swelling to the lower extremity and right knee but no redness - Labs CBC & Chem 7: 10/24/24 02:34 10/24/24 02:34 Labs: Abnormal Lab Results - Last 24 Hours (Table) 10/22/24 10/22/24 10/23/24 Range/Units 12:06 18:01 00:48 RBC (4.30-5.90) m/uL Hgb (13.0-17.5) gm/dL Hct (39.0-53.0) % MCV (80.0-100.0) fL Lymphocytes # (1.0-4.8) k/uL Potassium (3.5-5.1) mmol/L Chloride (98-107) mmol/L BUN (9-20) mg/dL Creatinine (0.66-1.25) mg/dL POC Glucose (mg/dL) 197 H 308 H 181 H (70-110) mg/dL Calcium (8.4-10.2) mg/dL 10/23/24 10/23/24 Range/Units 05:04 05:04 RBC 2.37 L (4.30-5.90) m/uL Hgb 8.2 L (13.0-17.5) gm/dL Hct 25.2 L (39.0-53.0) % MCV 106.3 H (80.0-100.0) fL Lymphocytes # 0.9 L (1.0-4.8) k/uL Potassium 3.4 L (3.5-5.1) mmol/L Chloride 109 H (98-107) mmol/L BUN 46 H (9-20) mg/dL Creatinine 2.19 H (0.66-1.25) mg/dL POC Glucose (mg/dL) (70-110) mg/dL Calcium 8.3 L (8.4-10.2) mg/dL Assessment and Plan (1) Sepsis Current Visit: Yes Status: Acute Code(s): A41.9 - SEPSIS, UNSPECIFIED ORGANISM SNOMED Code(s): 84559020 (2) Streptococcal bacteremia Current Visit: Yes Status: Acute Code(s): R78.81 - BACTEREMIA; B95.5 - UNSP STREPTOCOCCUS THE CAUSE OF DISEASES CLASSD LOVEWHR SNOMED Code(s): 649711113222 Plan: 1patient presented to the hospital with sepsis in this patient who did have fever tachycardia elevated white count and now with evidence of streptococcal bacteremia which is usually of skin and soft tissue origin 2-patient noticed to have right knee effusion has been evaluated by orthopedics and is status post aspiration with purulent drainage subsequently did have right knee washout by orthopedic cultures are pending may need further workup including MRI of the spine when stable. Ortho is following the patient closely 3patient right knee fluid culture also came back positive with group A strep 4-patient did have left-sided pneumonia patient required reintubation and also status post bronchoscopy and lavage sputum culture so far negative, initial culture growing Enterobacter that is sensitive to cefepime 5the patient is afebrile white count normalized and the patient has been extubated 6patient will be treated with cefepime and monitor clinical course closely Family at the bedside question answered Dictation was produced using [employer] dictation software. please excuse any grammatical, word or spelling errors. Time with Patient: Less than 30
[2024-10-24 09:19] LABS: Glucose,Whole Blood 152 mg/dL (70-110)
[2024-10-24 09:29] LABS: Hepatitis A Antibody IgM Nonreactive (Nonreactive); Hepatitis B Core IgM Nonreactive (Nonreactive); Hepatitis C IgG Antibody Nonreactive (Nonreactive)
[2024-10-24 10:33] LABS: Protein, Total 5.7 g/dL (6.2-8.2)
--- NOTE | 2024-10-24 10:41 | P.PN ---
Subjective Patient is seen in follow-up for acute kidney injury. Renal function stable. Nonoliguric. Extubated October 22, 2024. Lasix discontinued yesterday. Receiving IV fluids. Vital signs are stable. General: No acute distress. HEENT: Intubated. LUNGS: Scattered rhonchi. HEART: Rate and Rhythm are regular. ABDOMEN: No distention. EXTREMITITES: 1+ edema. Scrotal edema noted. Objective - Vital Signs Vital signs: Vital Signs Temp 98.7 F 10/24/24 08:00 Pulse 109 H 10/24/24 10:00 Resp 18 10/24/24 10:00 BP 110/69 10/24/24 10:00 Pulse Ox 97 10/24/24 10:00 FiO2 40 10/22/24 09:56 Intake & Output 10/23/24 10/24/24 10/24/24 18:59 06:59 18:59 Intake Total 917 1185 300 Output Total 960 790 225 Balance -43 395 75 Weight 88.7 kg 88.7 kg Intake: IV 77 885 300 0.9 Normal Saline 65 60 15 Normal Saline Pressure 12 Bag Potassium Chloride 20 meq 60 In Water For Injection 1 100ml.bag @ 50 mls/hr IVPB Q2H [facility] Rx#: [id number] Sodium Chloride 0.9% 1, 825 225 000 ml @ 75 mls/hr IV . [id number] [facility] Rx#:[id number] Intake, IV Titration 600 300 Amount Sodium Chloride 0.9% 1, 600 300 000 ml @ 75 mls/hr IV . [id number] [facility] Rx#:[id number] Tube Feeding 240 Output: Urine 960 790 225 Other: Voiding Method Indwelling Catheter Indwelling Catheter Indwelling Catheter ABP, PAP, CO, CI - Last Documented Arterial Blood Pressure 128/42 - Labs CBC & Chem 7: 10/24/24 02:34 10/24/24 02:34 Labs: Abnormal Lab Results - Last 24 Hours (Table) 10/23/24 10/23/24 10/24/24 Range/Units 11:43 12:45 01:17 RBC (4.30-5.90) m/uL Hgb (13.0-17.5) gm/dL Hct (39.0-53.0) % MCV (80.0-100.0) fL MCH (25.0-35.0) pg RDW (11.5-15.5) % Macrocytosis Chloride (98-107) mmol/L BUN (9-20) mg/dL Creatinine (0.66-1.25) mg/dL Glucose (74-99) mg/dL POC Glucose (mg/dL) 55 L 209 H (70-110) mg/dL Calcium (8.4-10.2) mg/dL Total Protein (PEP) (6.2-8.2) g/dL Urine Protein 2+ H (Negative) Urine Blood Small H (Negative) Urine RBC 8 H (0-5) /hpf Urine WBC 7 H (0-5) /hpf Amorphous Sediment Rare H (None) /hpf Urine Bacteria Rare H (None) /hpf Urine Mucus Rare H (None) /hpf Urine Yeast (Budding) Many H (None) /hpf 10/24/24 10/24/24 10/24/24 Range/Units 02:34 02:34 02:34 RBC 2.16 L (4.30-5.90) m/uL Hgb 7.6 L (13.0-17.5) gm/dL Hct 23.4 L (39.0-53.0) % MCV 108.6 H (80.0-100.0) fL MCH 35.1 H (25.0-35.0) pg RDW 15.7 H (11.5-15.5) % Macrocytosis Marked A Chloride 113 H (98-107) mmol/L BUN 46 H (9-20) mg/dL Creatinine 2.12 H (0.66-1.25) mg/dL Glucose 146 H (74-99) mg/dL POC Glucose (mg/dL) (70-110) mg/dL Calcium 8.3 L (8.4-10.2) mg/dL Total Protein (PEP) 5.7 L (6.2-8.2) g/dL Urine Protein (Negative) Urine Blood (Negative) Urine RBC (0-5) /hpf Urine WBC (0-5) /hpf Amorphous Sediment (None) /hpf Urine Bacteria (None) /hpf Urine Mucus (None) /hpf Urine Yeast (Budding) (None) /hpf 10/24/24 Range/Units 09:18 RBC (4.30-5.90) m/uL Hgb (13.0-17.5) gm/dL Hct (39.0-53.0) % MCV (80.0-100.0) fL MCH (25.0-35.0) pg RDW (11.5-15.5) % Macrocytosis Chloride (98-107) mmol/L BUN (9-20) mg/dL Creatinine (0.66-1.25) mg/dL Glucose (74-99) mg/dL POC Glucose (mg/dL) 152 H (70-110) mg/dL Calcium (8.4-10.2) mg/dL Total Protein (PEP) (6.2-8.2) g/dL Urine Protein (Negative) Urine Blood (Negative) Urine RBC (0-5) /hpf Urine WBC (0-5) /hpf Amorphous Sediment (None) /hpf Urine Bacteria (None) /hpf Urine Mucus (None) /hpf Urine Yeast (Budding) (None) /hpf Assessment and Plan Plan: Assessment: 1. Acute kidney injury secondary to ATN secondary to septic shock and rhabdomyolysis. Creatinine 3.18 on admission and improved to 0.89 dated October 16, 2024 -worsened with diuresis. Lasix discontinued October 23, 2024. Creatinine 2.12 today. No hydronephrosis noted on kidney ultrasound. 2. Rhabdomyolysis secondary to immobility. Resolved. 3. Strep bacteremia on antibiotics. Being treated for pneumonia. Status post bronchoscopy October 18, 2024. 4. Anion gap metabolic acidosis secondary to acute kidney injury and lactic acidosis. Now due to IV fluids. Status post bicarb drip. 5. Hypernatremia from lack of oral water intake. Status post D5W. Improved. 6. Hypomagnesemia from poor intake and alcohol abuse. Replaced. Improved. 7. History of alcohol abuse. 8. Hypocalcemia secondary to acute kidney injury as well as intracellular shifting from bicarb. PTH 112. Vitamin D level 26.5. On vitamin D. Corrected calcium in the normal range. 9. A-fib with RVR maintained on amiodarone and Lopressor. 10. Volume overload. 11. Acute blood loss anemia status post blood transfusion this admission. Plan: Lasix discontinued October 23, 2024 by ICU team. Hep-Lock IV fluids. Continue to assess volume status on daily basis. Avoid nephrotoxins. Continue to monitor renal function and urine output. Replace potassium as needed. Follow-up serologies. Urine eosinophils negative. Complements normal. Hepatitis panel negative.
[2024-10-24 10:43] LABS: Hepatitis B Surface Antigen Nonreactive (Nonreactive)
--- NOTE | 2024-10-24 10:57 | CT ---
EXAMINATION TYPE: CT brain wo con DATE OF EXAM: 10/24/2024 COMPARISON: 10/06/2024 CLINICAL INDICATION: Male, 64 years old with history of AMS; PHH, AMS CT DLP: 1268.4 mGycm Automated exposure control for dose reduction was used. Findings: The ventricles, basal cisterns and sulci over the convexities are mildly prominent and normal for the patient's age. There is no mass effect or shift of midline structures. No abnormal density is seen throughout the brain parenchyma and there is no acute intra or extra-axia l hemorrhage. The posterior fossa including the brainstem, fourth ventricle and cerebellar pontine angles appear no rmal. There is marked calcification of the basilar artery is significant stenosis is suspected but ca nnot be confirmed with this technique. Intraorbital contents appear normal and symmetric. Visualized paranasal sinuses are well aerated. There is mild to moderate fluid in the mastoid air rona ls bilaterally. The calvarium is intact. IMPRESSION: 1. No acute bleed or mass effect. 2. Mild age-appropriate senescent changes. 3. Marked calcification of basal artery and significant stenosis cannot be excluded. 4. Mild to moderate fluid in the mastoid air cells bilaterally. [facility], , 10/24/2024 10:55 AM
[2024-10-24 11:14] LABS: Glucose,Whole Blood 137 mg/dL (70-110)
--- NOTE | 2024-10-24 13:59 | P.PN ---
Subjective Progress Note Date: 10/24/24 Principal diagnosis: Acute hypoxic respiratory failure with left lower lobe pneumonia and significant mucous plugs with metabolic encephalopathy as well as septic shock Patient is a 64-year-old male who is being seen in the ICU due to hypovolemic shock and rhabdomyolysis. He is a poor historian due to altered mental status and unresponsiveness. All history is obtained from the chart. He initially presented to the emergency department after being found facedown on the ground with a contusion to his forehead and abrasions to his knee and left toes. She stated that he had been having nausea and vomiting for a day prior to being found down. He was noted to have diarrhea as well. Patient is a daily drinker and consumes about a fifth per day according to the notes he has not drank for the 2 days prior to this admission. He also has a history of type 1 diabetes mellitus. Initial EKG showed sinus tachycardia. Head/cervical spine CT showed no acute intracranial process and no acute fracture or traumatic subluxation of the cervical spine. Initial chest x-ray showed right middle lobe scarring/atelectasis, no acute pulmonary process. He had received 4 L of normal saline. Initial labs showed CK level of 18,113, WBCs 10.7, hemoglobin 12.5, sodium 126, creatinine 3.18 lactic acid 6.9, AST 401, ALT 65. Preliminary blood culture showed gram-positive cocci and patient was started on vancomycin. On 10/20/2024, the patient remains sedated on propofol. Arousable and moving all 4 extremities. He is status post reintubation on 10/18/2024 and is status post bronchoscopy x 2 with evacuation of mucous plugs from his left lower lobe. The patient has Enterobacter erogenous in his sputum and the patient remains on IV cefepime. This morning, he remains on assist-control mode with rate of 14, tidal volume of 500, FiO2 of 50% with a PEEP of 10. Blood gas shows significant improvement oxygenation and the pO2 is up to 153 and a pH is at 7.4 with a pCO2 of 41. The patient remains on low-dose norepinephrine at 0.04 mcg/kg/min. He remains on IV heparin for paroxysmal A-fib. Hemoglobin dropped down to 6.7 and the patient is going to receive a unit of packed RBC. Creatinine is up to 1.5. He remains on vital high-protein at rate of 40 cc an hour. Fluid balance is +1.2 L over the past 24 hours. He is afebrile. Patient was seen today on 10/21/24, patient remains in the ICU, patient is on mechanical ventilation with assist-control rate of 14 tidal volume 500 FiO2 40% and PEEP of 6 ABG showed a pO2 of 27 pCO2 34 pH of 7.47. No changes were made in vent settings. Patient remains on propofol at 40 mcg/kg/min, received a unit of packed RBCs yesterday for low hemoglobin. Remains on vital HP patient is receiving cefepime for Enterobacter around [place] and his sputum. Patient had strep a in the right knee joint patient is covered with cefepime remains on Lasix 40 mg IV push daily his initial presentation to the hospital was when he was found facedown on the ground with a contusion on his forehead and abrasion on his left knee as well as left toes. Patient is known to be a heavy drinker, consumes 1/5/day according to the notes in the chart. Patient is also known to have type 1 diabetes, intubation on 10/10/2024 following his knee surgery patient was extubated on 10/15, however he had to be reintubated on 10/18 bronchoscopy was done for extensive pneumonia involving the left lower lobe and mucous plugs were suctioned. Patient also had another bronchoscopy on 09/22 with improvement in his chest x-ray findings and left lower lobe pneumonia. Sputum cultures have been positive for Enterobacter allergies. Has been on IV cefepime WBC count today 6.3 hemoglobin 7.8 metabolic profile is normal BUN is 42 creatinine 1.67. Chest x-ray continues to show bibasilar airspace disease left lower lobe more so than right lower lobe Patient was eval today and 10/22/2024, patient remains in the ICU, intubated and mechanically ventilated, on assist-control rate of 14 tidal volume 500 FiO2 40% PEEP of 6 ABG showed a pO2 of 93 pCO2 34 pH of 7.50 peak airway pressure is 23 Plateau pressure is 16 continues to have some clear yellow sputum that is easily suctioned will not require bronchoscopy today considering the easily suctioned the mucus secretions. Patient is on propofol at 40 mcg/kg/min vital HP at 40 mL/h IV fluid at KVO patient remains on antibiotics in the form of cefepime, he has Enterococcus in the sputum and he had strep pain from his knee. Leg susi on Lasix 40 mg twice daily chest x-ray is showing slight improvement in his bibasilar pneumonia hence I am not recommending bronchoscopy today I will try to give the patient a trial of weaning if possible. Labs today were reviewed WBC count is 5.8 hemoglobin 7.9 platelets are 306, electrolytes are normal BUN is 43 creatinine 1.85 Patient was seen today on 10/23/2024, remains in the ICU, however the patient was extubated yesterday and so far he seems to be tolerating the extubation well. Patient is on 3 L nasal cannula, he is alert, but extremely slow. And complaining of right upper extremity swelling and pain. Considering the patient had a fall I will recommend x-rays of the right upper extremity and I would recommend ultrasound/venous Doppler of the right upper extremity. Patient continues to have pneumonia based on chest x-ray, left lower lobe is quite concerning patient does not have a very good cough. Hoping he does not require bronchoscopy again. In the meantime he is on cefepime. Patient had worsening of his renal functioning and I discontinued his Lasix today. He is on subcu heparin for DVT prophylax. And I do not believe the patient is quite ready to be discharged out of the ICU yet, I will keep him in the ICU for another day. And follow-up chest x-ray will be done in a.m. His WBC count is 6 hemoglobin 8.2 electrolytes are normal BUN is 46 creatinine 2.19 Seen today on 10/24/2024, patient remains in the ICU, off mechanical ventilation, on2 L nasal cannula with O2 saturation between 94 to 97%. Patient is confused, he is not in any form of respiratory distress.WBC is 5.8 hemoglobin 7.6 electrolytes are normal BUN is 46 creatinine 2.22, slightly improved compared to yesterday after holding his diuretics chest x-ray is showing slight improvement in his pneumonia. However what seems to be quite concerning to me is his mental status patient seems to be confused, and continues to have difficulty moving his right upper extremity workup on the right upper extremity has been negative including x-rays and Doppler. Objective - Vital Signs Vital signs: Vital Signs Temp 98.6 F 10/24/24 12:00 Pulse 92 10/24/24 13:00 Resp 17 10/24/24 13:00 BP 109/67 10/24/24 13:00 Pulse Ox 94 L 10/24/24 13:00 FiO2 40 10/22/24 09:56 Intake & Output 10/23/24 10/24/24 10/24/24 18:59 06:59 18:59 Intake Total 917 1185 275 Output Total 960 790 390 Balance -43 395 -115 Weight 88.7 kg 88.7 kg Intake: IV 77 885 275 0.9 Normal Saline 65 60 10 Normal Saline Pressure 12 Bag Potassium Chloride 20 meq 40 In Water For Injection 1 100ml.bag @ 50 mls/hr IVPB Q2H [facility] Rx#: [id number] Sodium Chloride 0.9% 1, 825 225 000 ml @ 75 mls/hr IV . [id number] [facility] Rx#:[id number] Intake, IV Titration 600 300 Amount Sodium Chloride 0.9% 1, 600 300 000 ml @ 75 mls/hr IV . [id number] [facility] Rx#:[id number] Tube Feeding 240 Output: Urine 960 790 390 Other: Voiding Method Indwelling Catheter Indwelling Catheter Indwelling Catheter # Bowel Movements 1 ABP, PAP, CO, CI - Last Documented Arterial Blood Pressure 128/42 - Exam Physical examination: Reveals 64-year-old white male on 2 L nasal cannula, not in distress. Head exam was generally normal. There was no scleral icterus or corneal arcus. Mucous membranes were moist. Neck supple. Full range of motion. No adenopathy thyromegaly or neck vein distention. Cardiovascular examination reveals regular rhythm rate. S1-S2 normal. No S3 or S4. Lungs diminished breath sounds at the bases no rhonchi no wheezes Abdomen soft, without bowel sounds. No masses or tenderness. Extremities no clubbing or cyanosis, right knee surgical wound site is dry clean and intact. Right knee is slightly swollen. Surgical sites are clean .right upper extremity is swollen and tender but not erythematous and no deformity noted. kin reveals multiple abrasions and bruises. Neurologically, awake, follows simple instruction, but quite confused Psychiatric: normal mood confused mental status - Labs CBC & Chem 7: 10/24/24 02:34 10/24/24 02:34 Labs: Abnormal Lab Results - Last 24 Hours (Table) 10/24/24 10/24/24 10/24/24 Range/Units 01:17 02:34 02:34 RBC 2.16 L (4.30-5.90) m/uL Hgb 7.6 L (13.0-17.5) gm/dL Hct 23.4 L (39.0-53.0) % MCV 108.6 H (80.0-100.0) fL MCH 35.1 H (25.0-35.0) pg RDW 15.7 H (11.5-15.5) % Macrocytosis Marked A Chloride (98-107) mmol/L BUN (9-20) mg/dL Creatinine (0.66-1.25) mg/dL Glucose (74-99) mg/dL POC Glucose (mg/dL) 209 H (70-110) mg/dL Calcium (8.4-10.2) mg/dL Total Protein (PEP) 5.7 L (6.2-8.2) g/dL 10/24/24 10/24/24 10/24/24 Range/Units 02:34 09:18 11:12 RBC (4.30-5.90) m/uL Hgb (13.0-17.5) gm/dL Hct (39.0-53.0) % MCV (80.0-100.0) fL MCH (25.0-35.0) pg RDW (11.5-15.5) % Macrocytosis Chloride 113 H (98-107) mmol/L BUN 46 H (9-20) mg/dL Creatinine 2.12 H (0.66-1.25) mg/dL Glucose 146 H (74-99) mg/dL POC Glucose (mg/dL) 152 H 137 H (70-110) mg/dL Calcium 8.3 L (8.4-10.2) mg/dL Total Protein (PEP) (6.2-8.2) g/dL Assessment and Plan Assessment: Impression: Acute hypoxic respiratory failure, extubated on 10/22/2024. Acute left lower lobe pneumonia Acute metabolic encephalopathy Septic shock, resolved Right-sided pleural effusion requiring thoracentesis and 400 cc of fluid removed Septic arthritis of the right knee requiring surgery cultures positive for strep A, remains on antibiotics/IV cefepime Chronic back pain may need MRI of the lumbosacral spine Chronic alcohol abuse and acute alcohol withdrawal syndrome recovered Postoperative day #12 status post arthroscopy and arthroscopic lavage and debridement of right knee with partial medial meniscectomy and medial femoral condyle and medial tibial plateau chondroplasty Acute kidney injury, patient is now off vancomycin Acute on chronic anemia History of underlying coronary artery disease and previous stent placement History of LV dysfunction and cardiomyopathy with ejection fraction of 45% Paroxysmal atrial fibrillation currently patient is in sinus rhythm. On amiodarone and heparin drip Type 1 diabetes GERD without esophagitis Dyslipidemia History of [place] History of degenerative joint disease Right upper extremity swelling and pain Recommendation: Consult neurology to evaluate for his mental status and encephalopathy the patient has been seen by neurology since admission Continue to monitor in the ICU Encourage incentive spirometry Continue oxygen via nasal cannula and titrate accordingly Continue antibiotics/cefepime No need for bronchoscopy considering improvement noted on chest x-ray Subcu heparin DVT prophylaxis Continue GI prophylaxis Continue insulin Continue IV Protonix Will continue to follow while in ICU for the next 24 hours Time with Patient: Less than 30
--- NOTE | 2024-10-24 14:01 | P.PN ---
Subjective Progress Note Date: 10/24/24 Principal diagnosis: Reason for follow-up is Streptococcus agalactiae bacteremia Patient is a 64-year-old male past medical history significant for diabetes mellitus hypertension hyperlipidemia [place] osteoarthritis coronary disease patient was brought into the hospital after apparently the patient was found to be facedown on the ground with contusion to his forehead and abrasion to his knee and some bloody toes, patient did have a fever subsequently blood cultures came back positive with Streptococcus agalactiae prompting this consultation. Patient noticed to have swelling of the right knee aspirate was purulent subsequently the patient did have a right knee washout completed by orthopedics on 10/10/2024. On today's evaluation that is 10/24/2024,the patient remains to be afebrile, patient is on 2 L nasal cannula supplemental oxygen and denies any chest pain no worsening cough vomiting or diarrhea has been reported by the nursing staff. Patient white count is 5.8 creatinine is 2.12 Objective - Vital Signs Vital signs: Vital Signs Temp 98.6 F 10/24/24 12:00 Pulse 92 10/24/24 13:00 Resp 17 10/24/24 13:00 BP 109/67 10/24/24 13:00 Pulse Ox 94 L 10/24/24 13:00 FiO2 40 10/22/24 09:56 Intake & Output 10/23/24 10/24/24 10/24/24 18:59 06:59 18:59 Intake Total 917 1185 275 Output Total 960 790 390 Balance -43 395 -115 Weight 88.7 kg 88.7 kg Intake: IV 77 885 275 0.9 Normal Saline 65 60 10 Normal Saline Pressure 12 Bag Potassium Chloride 20 meq 40 In Water For Injection 1 100ml.bag @ 50 mls/hr IVPB Q2H [facility] Rx#: [id number] Sodium Chloride 0.9% 1, 825 225 000 ml @ 75 mls/hr IV . [id number] [facility] Rx#:[id number] Intake, IV Titration 600 300 Amount Sodium Chloride 0.9% 1, 600 300 000 ml @ 75 mls/hr IV . [id number] [facility] Rx#:[id number] Tube Feeding 240 Output: Urine 960 790 390 Other: Voiding Method Indwelling Catheter Indwelling Catheter Indwelling Catheter # Bowel Movements 1 ABP, PAP, CO, CI - Last Documented Arterial Blood Pressure 128/42 - Exam GENERAL DESCRIPTION: Middle-age male lying in bed in no distress RESPIRATORY SYSTEM: Unlabored breathing , coarse breath sounds bilaterally HEART: S1 S2 regular rate and rhythm , ABDOMEN: Soft , no tenderness EXTREMITIES: Swelling to the lower extremity and right knee but no redness - Labs CBC & Chem 7: 10/24/24 02:34 10/24/24 02:34 Labs: Abnormal Lab Results - Last 24 Hours (Table) 10/24/24 10/24/24 10/24/24 Range/Units 01:17 02:34 02:34 RBC 2.16 L (4.30-5.90) m/uL Hgb 7.6 L (13.0-17.5) gm/dL Hct 23.4 L (39.0-53.0) % MCV 108.6 H (80.0-100.0) fL MCH 35.1 H (25.0-35.0) pg RDW 15.7 H (11.5-15.5) % Macrocytosis Marked A Chloride (98-107) mmol/L BUN (9-20) mg/dL Creatinine (0.66-1.25) mg/dL Glucose (74-99) mg/dL POC Glucose (mg/dL) 209 H (70-110) mg/dL Calcium (8.4-10.2) mg/dL Total Protein (PEP) 5.7 L (6.2-8.2) g/dL 10/24/24 10/24/24 10/24/24 Range/Units 02:34 09:18 11:12 RBC (4.30-5.90) m/uL Hgb (13.0-17.5) gm/dL Hct (39.0-53.0) % MCV (80.0-100.0) fL MCH (25.0-35.0) pg RDW (11.5-15.5) % Macrocytosis Chloride 113 H (98-107) mmol/L BUN 46 H (9-20) mg/dL Creatinine 2.12 H (0.66-1.25) mg/dL Glucose 146 H (74-99) mg/dL POC Glucose (mg/dL) 152 H 137 H (70-110) mg/dL Calcium 8.3 L (8.4-10.2) mg/dL Total Protein (PEP) (6.2-8.2) g/dL Assessment and Plan (1) Sepsis Current Visit: Yes Status: Acute Code(s): A41.9 - SEPSIS, UNSPECIFIED ORGANISM SNOMED Code(s): 78659940 (2) Streptococcal bacteremia Current Visit: Yes Status: Acute Code(s): R78.81 - BACTEREMIA; B95.5 - UNSP STREPTOCOCCUS THE [facility] Code(s): 134212831192 Plan: 1patient presented to the hospital with sepsis in this patient who did have fe [place]in tachycardia elevated white count and now with evidence of streptococcal bacteremia which is usually of skin and soft tissue origin 2-patient noticed to have right knee effusion has been evaluated by orthopedics and is status post aspiration with purulent drainage subsequently did have right knee washout by orthopedic cultures are pending may need further workup including MRI of the spine when stable. Ortho is following the patient closely 3patient right knee fluid culture also came back positive with group A strep 4-patient did have left-sided pneumonia patient required reintubation and also status post bronchoscopy and lavage sputum culture so far negative, initial culture growing Enterobacter that is sensitive to cefepime patient subsequently has been successfully extubated 5the patient remains to be afebrile white count normal will be treated with cefepime however will narrow down antibiotics specific towards the right knee septic arthritis on discharge to finish his 4-week course of therapy Dictation was produced using [employer] dictation software. please excuse any grammatical, word or spelling errors. Time with Patient: Less than 30
[2024-10-24 14:42] LABS: Anti-DNA, DS unit <1.0 IU/mL; DNA Double-Stranded Negative (Negative)
[2024-10-24 16:19] LABS: Glucose,Whole Blood 38 mg/dL (70-110)
[2024-10-24 16:19] LABS: Glucose,Whole Blood 36 mg/dL (70-110)
[2024-10-24 16:23] LABS: Glucose,Whole Blood 39 mg/dL (70-110)
[2024-10-24 16:38] LABS: Glucose,Whole Blood 111 mg/dL (70-110)
--- NOTE | 2024-10-24 17:07 | P.CNNES ---
History of Present Illness Consult date: 10/24/24 Requesting physician: Fatou Latif Reason for Consult: ?anoxic brain injury History of Present Illness: This is a 64-year-old gentleman present emergency department on 10/06/2024 after being found down on the ground with contusion to his forehead and abrasion to his knee and left toes. History is obtained from medical record patient's who later came at bedside. Neurology was consulted for questionable anoxic brai n injury. According to the the patient is a very heavy drinker and he is not taking care of himself and he is having knee issues and he was supposed to have a knee replacement but because of his alcohol he kept on dragon this issue. Patient does not have any underlying history of stroke or seizures according to the . During this hospital visit patient was in septic shock had septic art hritis of the right knee requiring surgery and the cultures were positive for group A and he is on antibiotic. He also had left lobe pneumonia. He was intubated and he was finally extubated on 10/22/2024. Patient had right sided pleural effusion requiring thoracentesis and 400 cc of fluid removed during this admission. He also had rhabdomyolysis which resolved. Somewhat the workup during this hospital visit consisted of: Patient had episodes of hypoglycemia today as low as 30s. He has acute on chronic kidney insufficiency on presentation his kidney was elevated and resolved then back now again it is trending up. His sputum cultures Enterococcus aeruginosa's, knee cultures are positive for strep a and blood cultures are positive for strep a The patient had a repeat CT of the head today and it is reported as no acute bleed or mass effect. Mild age-appropriate senescent changes. Marked calcification of basilar artery and significant stenosis cannot be excluded. I personally reviewed the CT and I agree there is no acute or subacute stroke. Review of Systems per HPI. Past Medical History Past Medical History: Coronary Artery Disease (CAD), Diabetes Mellitus, GERD/Reflux, Hyperlipidemia, Hypertension, Myocardial Infarction (MD), Osteoarthritis (OA) Additional Past Medical History / Comment(s): arthritis in fingers, knees, and neck area; NT in bilat arms Last Myocardial Infarction Date:: 2009 History of Any Multi-Drug Resistant Organisms: None Reported Past Surgical History: Heart Catheterization With Stent Additional Past Surgical History / Comment(s): ANAL FISSURE REPAIR, 2 cardiac stents, bhargavi cataracts. Pain proc Past Anesthesia/Blood Transfusion Reactions: No Reported Reaction Date of Last Stent Placement:: 2015 Past Psychological History: No Psychological Hx Reported Smoking Status: Former smoker Past Alcohol Use History: Daily - Past Family History Father Family Medical History: Cancer Additional Family Medical History / Comment(s): PANCREATIC Medications and Allergies Home Medications Medication Instructions Recorded Confirmed Type Aspirin [Adult Low Dose Aspirin EC] 81 mg PO DAILY 08/29/18 10/06/24 History Insulin Aspart [NovoLOG] See Protocol SQ AC-TID 08/29/18 10/06/24 History Insulin Glargine [Lantus Vial] 20 unit SQ DAILY 08/29/18 10/06/24 History Pantoprazole Sodium [Protonix] 40 mg PO DAILY 08/29/18 10/06/24 History lisinopriL [Zestril] 10 mg PO DAILY 08/29/18 10/06/24 History Atorvastatin [Lipitor] 80 mg PO DAILY #90 tab 10/26/18 10/06/24 Rx Metoprolol Tartrate [Lopressor] 50 mg PO BID 03/02/21 10/06/24 History HYDROcodone/APAP 7.5-325MG [Lilly 1 tab PO BID PRN 10/06/24 10/06/24 History 7.5-325] Allergies Allergy/AdvReac Type Severity Reaction Status Date / Time No Known Allergies Allergy Verified 10/06/24 14:43 Physical Examination - Vital Signs Vital Signs: Vital Signs Temp Pulse Resp BP Pulse Ox 10/24/24 16:00 98.4 F 84 22 99/58 95 10/24/24 15:00 76 15 115/66 92 L 10/24/24 14:00 89 19 110/70 96 10/24/24 13:00 92 17 109/67 94 L 10/24/24 12:00 98.6 F 96 18 117/63 97 10/24/24 11:00 96 21 112/78 97 10/24/24 10:00 109 H 18 110/69 97 10/24/24 09:00 112 H 15 114/67 93 L 10/24/24 08:00 98.7 F 106 H 10 L 127/70 92 L 10/24/24 07:00 101 H 22 123/70 97 10/24/24 06:00 99 23 127/70 93 L 10/24/24 05:00 96 21 123/79 95 10/24/24 04:00 97.8 F 102 H 22 122/68 94 L 10/24/24 03:00 98 19 114/63 98 10/24/24 02:00 85 15 118/67 92 L 10/24/24 01:00 92 20 114/63 96 10/24/24 00:00 98.0 F 89 20 115/58 96 10/23/24 23:03 93 26 H 115/58 98 10/23/24 23:00 87 29 H 108/61 97 10/23/24 22:00 88 14 117/60 97 10/23/24 21:02 93 10/23/24 21:00 93 14 115/58 99 10/23/24 20:52 92 10/23/24 20:00 98.0 F 90 21 108/63 99 10/23/24 19:00 90 29 H 110/58 98 10/23/24 18:00 88 19 114/69 97 10/23/24 17:00 87 14 114/69 97 Intake and Output 10/24/24 10/24/24 10/24/24 06:59 14:59 22:59 Intake Total 795 275 Output Total 605 435 115 Balance 190 -160 -115 Intake: IV 720 275 0.9 Normal Saline 45 10 Potassium Chloride 20 meq 40 In Water For Injection 1 100ml.bag @ 50 mls/hr IVPB Q2H ON LICENSE OF [facility] Rx#: [id number] Sodium Chloride 0.9% 1, 675 225 000 ml @ 75 mls/hr IV . [id number] ON LICENSE OF [facility] Rx#:[id number] Intake, IV Titration 75 Amount Sodium Chloride 0.9% 1, 75 000 ml @ 75 mls/hr IV . [id number] ON LICENSE OF [facility] Rx#:[id number] Output: Urine 605 435 115 Other: Voiding Method Indwelling Catheter Indwelling Catheter # Bowel Movements 1 Weight 88.7 kg 88.7 kg General: Lying in bed and is in mild acute distress. HENT: Was resisting upon neck flexion. INTEGUMENATRY: Significant edema of the right upper extremity as well as bilateral lower extremity. He is tender to touch over the right upper and lower extremity mostly in the upper extremity as well as at the right knee. Neuro: Limited. The patient is drowsy but is awake able to voice. He is oriented to self. He was able to name few objects correctly such as pen and watch. He is following few simple commands. Language is limited. Pupils are round 2 to 3 mm bilaterally laterally and reactive to light. He is tracking. No facial weakness. The motor is hard to assess individual muscle strength because of his cooperation. Stated earlier he was able to show me a thumbs up bilaterally. He was able to wiggle his toes. Plantars are mute. Results - Laboratory Findings CBC and BMP: 10/24/24 02:34 10/24/24 16:55 Abnormal Lab Findings: Abnormal Labs 10/06/24 10/06/24 10/06/24 14:42 14:42 14:42 WBC 10.7 H RBC 3.40 L Hgb 12.5 L Hct 36.6 L MCV 107.8 H MCH 36.8 H RDW Plt Count Neutrophils # Neutrophils # (Manual) 9.90 H Lymphocytes # Lymphocytes # (Manual) 0.11 L Metamyelocytes # (Man) 0.43 H Myelocytes # (Manual) 0.11 H Macrocytosis PT 13.8 H INR 1.3 H APTT 44.0 H ABG pH ABG pCO2 ABG pO2 ABG HCO3 ABG Total CO2 ABG O2 Saturation Hemoglobin Sodium 126 L Potassium Chloride Carbon Dioxide 13 L BUN 49 H Creatinine 3.18 H Glucose 169 H POC Glucose (mg/dL) Hemoglobin A1c Plasma Lactic Acid Luis Calcium 7.6 L Ionized Calcium Joshua Magnesium 1.1 L Total Bilirubin AST 401 H ALT 65 H Alkaline Phosphatase Creatine Kinase 30559 H* Total Protein 6.2 L Total Protein (PEP) Albumin 3.4 L Vitamin D 25-Hydroxy Procalcitonin PTH Intact Cortisol Urine Protein Urine Glucose (UA) Urine Ketones Urine Blood Ur Leukocyte Esterase Urine RBC Urine WBC Amorphous Sediment Urine Bacteria Urine Mucus Urine Yeast (Budding) Fluid Appearance Synovial Crystals Crossmatch 10/06/24 10/06/24 10/06/24 14:42 15:53 17:12 WBC RBC Hgb Hct MCV MCH RDW Plt Count Neutrophils # Neutrophils # (Manual) Lymphocytes # Lymphocytes # (Manual) Metamyelocytes # (Man) Myelocytes # (Manual) Macrocytosis PT INR APTT ABG pH ABG pCO2 ABG pO2 ABG HCO3 ABG Total CO2 ABG O2 Saturation Hemoglobin Sodium 125 L Potassium Chloride Carbon Dioxide 12 L BUN 48 H Creatinine 2.96 H Glucose 104 H POC Glucose (mg/dL) Hemoglobin A1c Plasma Lactic Acid Luis 6.9 H* Calcium 6.4 L* Ionized Calcium Joshua Magnesium Total Bilirubin AST ALT Alkaline Phosphatase Creatine Kinase Total Protein Total Protein (PEP) Albumin Vitamin D 25-Hydroxy Procalcitonin PTH Intact Cortisol Urine Protein 2+ H Urine Glucose (UA) Trace H Urine Ketones Trace H Urine Blood Large H Ur Leukocyte Esterase Moderate H Urine RBC 12 H Urine WBC 28 H Amorphous Sediment Moderate H Urine Bacteria Rare H Urine Mucus Rare H Urine Yeast (Budding) Fluid Appearance Synovial Crystals Crossmatch 10/06/24 10/06/24 10/06/24 17:12 20:25 20:50 WBC RBC Hgb Hct MCV MCH RDW Plt Count Neutrophils # Neutrophils # (Manual) Lymphocytes # Lymphocytes # (Manual) Metamyelocytes # (Man) Myelocytes # (Manual) Macrocytosis PT INR APTT ABG pH ABG pCO2 ABG pO2 ABG HCO3 ABG Total CO2 ABG O2 Saturation Hemoglobin Sodium 125 L Potassium Chloride Carbon Dioxide 12 L BUN 51 H Creatinine 3.29 H Glucose 110 H POC Glucose (mg/dL) Hemoglobin A1c Plasma Lactic Acid Luis 5.0 H* 3.9 H* Calcium 6.7 L Ionized Calcium Joshua Magnesium Total Bilirubin AST ALT Alkaline Phosphatase Creatine Kinase Total Protein Total Protein (PEP) Albumin Vitamin D 25-Hydroxy Procalcitonin PTH Intact Cortisol Urine Protein Urine Glucose (UA) Urine Ketones Urine Blood Ur Leukocyte Esterase Urine RBC Urine WBC Amorphous Sediment Urine Bacteria Urine Mucus Urine Yeast (Budding) Fluid Appearance Synovial Crystals Crossmatch 10/06/24 10/07/24 10/07/24 22:18 04:20 05:47 WBC RBC 3.19 L Hgb 11.6 L Hct 33.9 L MCV 106.1 H MCH 36.3 H RDW Plt Count 111 L Neutrophils # Neutrophils # (Manual) Lymphocytes # Lymphocytes # (Manual) 0.05 L Metamyelocytes # (Man) 0.10 H Myelocytes # (Manual) Macrocytosis PT INR APTT ABG pH ABG pCO2 ABG pO2 ABG HCO3 ABG Total CO2 ABG O2 Saturation Hemoglobin Sodium 126 L Potassium Chloride Carbon Dioxide 16 L BUN 53 H Creatinine 3.12 H Glucose 157 H POC Glucose (mg/dL) 138 H Hemoglobin A1c Plasma Lactic Acid Luis Calcium 6.6 L Ionized Calcium Joshua Magnesium Total Bilirubin AST ALT Alkaline Phosphatase Creatine Kinase Total Protein Total Protein (PEP) Albumin Vitamin D 25-Hydroxy Procalcitonin PTH Intact Cortisol Urine Protein Urine Glucose (UA) Urine Ketones Urine Blood Ur Leukocyte Esterase Urine RBC Urine WBC Amorphous Sediment Urine Bacteria Urine Mucus Urine Yeast (Budding) Fluid Appearance Synovial Crystals Crossmatch 10/07/24 10/07/24 10/07/24 05:47 06:39 09:32 WBC RBC Hgb Hct MCV MCH RDW Plt Count Neutrophils # Neutrophils # (Manual) Lymphocytes # Lymphocytes # (Manual) Metamyelocytes # (Man) Myelocytes # (Manual) Macrocytosis PT INR APTT ABG pH ABG pCO2 ABG pO2 ABG HCO3 ABG Total CO2 ABG O2 Saturation Hemoglobin Sodium Potassium Chloride Carbon Dioxide BUN Creatinine Glucose POC Glucose (mg/dL) 191 H 205 H Hemoglobin A1c Plasma Lactic Acid Luis Calcium Ionized Calcium Joshua Magnesium 1.4 L Total Bilirubin AST ALT Alkaline Phosphatase Creatine Kinase Total Protein Total Protein (PEP) Albumin Vitamin D 25-Hydroxy Procalcitonin PTH Intact Cortisol Urine Protein Urine Glucose (UA) Urine Ketones Urine Blood Ur Leukocyte Esterase Urine RBC Urine WBC Amorphous Sediment Urine Bacteria Urine Mucus Urine Yeast (Budding) Fluid Appearance Synovial Crystals Crossmatch 10/07/24 10/07/24 10/07/24 12:15 16:23 16:25 WBC RBC Hgb Hct MCV MCH RDW Plt Count Neutrophils # Neutrophils # (Manual) Lymphocytes # Lymphocytes # (Manual) Metamyelocytes # (Man) Myelocytes # (Manual) Macrocytosis PT INR APTT ABG pH ABG pCO2 ABG pO2 ABG HCO3 ABG Total CO2 ABG O2 Saturation Hemoglobin Sodium 126 L Potassium Chloride Carbon Dioxide 18 L BUN 54 H Creatinine 2.62 H Glucose 176 H POC Glucose (mg/dL) 173 H 204 H Hemoglobin A1c Plasma Lactic Acid Luis Calcium 6.5 L Ionized Calcium Joshua Magnesium Total Bilirubin AST ALT Alkaline Phosphatase Creatine Kinase 19501 H* Total Protein Total Protein (PEP) Albumin Vitamin D 25-Hydroxy Procalcitonin PTH Intact Cortisol Urine Protein Urine Glucose (UA) Urine Ketones Urine Blood Ur Leukocyte Esterase Urine RBC Urine WBC Amorphous Sediment Urine Bacteria Urine Mucus Urine Yeast (Budding) Fluid Appearance Synovial Crystals Crossmatch 10/07/24 10/07/24 10/07/24 20:13 22:03 23:32 WBC RBC Hgb Hct MCV MCH RDW Plt Count Neutrophils # Neutrophils # (Manual) Lymphocytes # Lymphocytes # (Manual) Metamyelocytes # (Man) Myelocytes # (Manual) Macrocytosis PT INR APTT ABG pH 7.49 H ABG pCO2 34 L ABG pO2 56 L* ABG HCO3 26 H ABG Total CO2 27 H ABG O2 Saturation 90.3 L Hemoglobin 10.0 L Sodium Potassium Chloride Carbon Dioxide BUN Creatinine Glucose POC Glucose (mg/dL) 255 H 278 H Hemoglobin A1c Plasma Lactic Acid Luis Calcium Ionized Calcium Joshua Magnesium Total Bilirubin AST ALT Alkaline Phosphatase Creatine Kinase Total Protein Total Protein (PEP) Albumin Vitamin D 25-Hydroxy Procalcitonin PTH Intact Cortisol Urine Protein Urine Glucose (UA) Urine Ketones Urine Blood Ur Leukocyte Esterase Urine RBC Urine WBC Amorphous Sediment Urine Bacteria Urine Mucus Urine Yeast (Budding) Fluid Appearance Synovial Crystals Crossmatch 10/08/24 10/08/24 10/08/24 04:40 06:16 06:16 WBC RBC Hgb Hct MCV MCH RDW Plt Count Neutrophils # Neutrophils # (Manual) Lymphocytes # Lymphocytes # (Manual) Metamyelocytes # (Man) Myelocytes # (Manual) Macrocytosis PT INR APTT ABG pH ABG pCO2 ABG pO2 ABG HCO3 ABG Total CO2 ABG O2 Saturation Hemoglobin Sodium 131 L Potassium 3.0 L Chloride 92 L Carbon Dioxide 32 H BUN 50 H Creatinine 2.34 H Glucose 167 H POC Glucose (mg/dL) 202 H Hemoglobin A1c 8.9 H Plasma Lactic Acid Luis Calcium 6.3 L* Ionized Calcium Joshua Magnesium Total Bilirubin AST 507 H ALT 136 H Alkaline Phosphatase Creatine Kinase Total Protein 4.4 L Total Protein (PEP) Albumin 2.2 L Vitamin D 25-Hydroxy Procalcitonin PTH Intact Cortisol Urine Protein Urine Glucose (UA) Urine Ketones Urine Blood Ur Leukocyte Esterase Urine RBC Urine WBC Amorphous Sediment Urine Bacteria Urine Mucus Urine Yeast (Budding) Fluid Appearance Synovial Crystals Crossmatch 10/08/24 10/08/24 10/08/24 06:16 06:16 08:14 WBC RBC 2.70 L Hgb 10.0 L D Hct 29.0 L MCV 107.1 H MCH 36.9 H RDW Plt Count 88 L Neutrophils # Neutrophils # (Manual) 8.80 H Lymphocytes # Lymphocytes # (Manual) 0.09 L Metamyelocytes # (Man) 0.09 H Myelocytes # (Manual) Macrocytosis PT INR APTT ABG pH ABG pCO2 ABG pO2 ABG HCO3 ABG Total CO2 ABG O2 Saturation Hemoglobin Sodium Potassium Chloride Carbon Dioxide BUN Creatinine Glucose POC Glucose (mg/dL) 167 H Hemoglobin A1c Plasma Lactic Acid Luis Calcium Ionized Calcium Joshua Magnesium Total Bilirubin AST ALT Alkaline Phosphatase Creatine Kinase 8796 H* Total Protein Total Protein (PEP) Albumin Vitamin D 25-Hydroxy Procalcitonin PTH Intact Cortisol Urine Protein Urine Glucose (UA) Urine Ketones Urine Blood Ur Leukocyte Esterase Urine RBC Urine WBC Amorphous Sediment Urine Bacteria Urine Mucus Urine Yeast (Budding) Fluid Appearance Synovial Crystals Crossmatch 10/08/24 10/08/24 10/08/24 11:52 11:55 12:14 WBC RBC Hgb Hct MCV MCH RDW Plt Count Neutrophils # Neutrophils # (Manual) Lymphocytes # Lymphocytes # (Manual) Metamyelocytes # (Man) Myelocytes # (Manual) Macrocytosis PT INR APTT ABG pH ABG pCO2 ABG pO2 ABG HCO3 ABG Total CO2 ABG O2 Saturation Hemoglobin Sodium Potassium Chloride Carbon Dioxide BUN Creatinine Glucose POC Glucose (mg/dL) 36 L* 35 L* 131 H Hemoglobin A1c Plasma Lactic Acid Luis Calcium Ionized Calcium Joshua Magnesium Total Bilirubin AST ALT Alkaline Phosphatase Creatine Kinase Total Protein Total Protein (PEP) Albumin Vitamin D 25-Hydroxy Procalcitonin PTH Intact Cortisol Urine Protein Urine Glucose (UA) Urine Ketones Urine Blood Ur Leukocyte Esterase Urine RBC Urine WBC Amorphous Sediment Urine Bacteria Urine Mucus Urine Yeast (Budding) Fluid Appearance Synovial Crystals Crossmatch 10/08/24 10/08/24 10/09/24 19:48 23:54 04:16 WBC RBC Hgb Hct MCV MCH RDW Plt Count Neutrophils # Neutrophils # (Manual) Lymphocytes # Lymphocytes # (Manual) Metamyelocytes # (Man) Myelocytes # (Manual) Macrocytosis PT INR APTT ABG pH ABG pCO2 ABG pO2 ABG HCO3 ABG Total CO2 ABG O2 Saturation Hemoglobin Sodium Potassium Chloride Carbon Dioxide BUN Creatinine Glucose POC Glucose (mg/dL) 147 H 211 H 284 H Hemoglobin A1c Plasma Lactic Acid Luis Calcium Ionized Calcium Joshua Magnesium Total Bilirubin AST ALT Alkaline Phosphatase Creatine Kinase Total Protein Total Protein (PEP) Albumin Vitamin D 25-Hydroxy Procalcitonin PTH Intact Cortisol Urine Protein Urine Glucose (UA) Urine Ketones Urine Blood Ur Leukocyte Esterase Urine RBC Urine WBC Amorphous Sediment Urine Bacteria Urine Mucus Urine Yeast (Budding) Fluid Appearance Synovial Crystals Crossmatch 10/09/24 10/09/24 10/09/24 04:49 04:49 08:27 WBC 12.3 H RBC 2.54 L Hgb 9.7 L Hct 27.7 L MCV 109.0 H MCH 38.1 H RDW Plt Count 48 L Neutrophils # 11.3 H Neutrophils # (Manual) Lymphocytes # 0.4 L Lymphocytes # (Manual) Metamyelocytes # (Man) Myelocytes # (Manual) Macrocytosis PT INR APTT ABG pH ABG pCO2 ABG pO2 ABG HCO3 ABG Total CO2 ABG O2 Saturation Hemoglobin Sodium 133 L Potassium Chloride Carbon Dioxide 19 L BUN 42 H Creatinine 1.62 H Glucose 267 H POC Glucose (mg/dL) 264 H Hemoglobin A1c Plasma Lactic Acid Luis Calcium 6.4 L* Ionized Calcium Joshua Magnesium Total Bilirubin 2.0 H AST 323 H ALT 78 H Alkaline Phosphatase 166 H Creatine Kinase 3888 H* Total Protein 4.6 L Total Protein (PEP) Albumin 2.2 L Vitamin D 25-Hydroxy Procalcitonin PTH Intact Cortisol 32.0 H Urine Protein Urine Glucose (UA) Urine Ketones Urine Blood Ur Leukocyte Esterase Urine RBC Urine WBC Amorphous Sediment Urine Bacteria Urine Mucus Urine Yeast (Budding) Fluid Appearance Synovial Crystals Crossmatch 10/09/24 10/09/24 10/09/24 09:32 11:39 12:30 WBC RBC Hgb Hct MCV MCH RDW Plt Count Neutrophils # Neutrophils # (Manual) Lymphocytes # Lymphocytes # (Manual) Metamyelocytes # (Man) Myelocytes # (Manual) Macrocytosis PT INR APTT ABG pH ABG pCO2 ABG pO2 ABG HCO3 ABG Total CO2 ABG O2 Saturation Hemoglobin Sodium Potassium 3.3 L Chloride Carbon Dioxide BUN Creatinine Glucose POC Glucose (mg/dL) 213 H Hemoglobin A1c Plasma Lactic Acid Luis Calcium Ionized Calcium Joshua 3.9 L Magnesium Total Bilirubin AST ALT Alkaline Phosphatase Creatine Kinase Total Protein Total Protein (PEP) Albumin Vitamin D 25-Hydroxy Procalcitonin PTH Intact Cortisol Urine Protein Urine Glucose (UA) Urine Ketones Urine Blood Ur Leukocyte Esterase Urine RBC Urine WBC Amorphous Sediment Urine Bacteria Urine Mucus Urine Yeast (Budding) Fluid Appearance Synovial Crystals Crossmatch 10/09/24 10/09/24 10/09/24 16:16 16:18 16:22 WBC RBC Hgb Hct MCV MCH RDW Plt Count Neutrophils # Neutrophils # (Manual) Lymphocytes # Lymphocytes # (Manual) Metamyelocytes # (Man) Myelocytes # (Manual) Macrocytosis PT INR APTT ABG pH ABG pCO2 ABG pO2 ABG HCO3 ABG Total CO2 ABG O2 Saturation Hemoglobin Sodium Potassium Chloride Carbon Dioxide BUN Creatinine Glucose POC Glucose (mg/dL) 140 H 119 H 128 H Hemoglobin A1c Plasma Lactic Acid Luis Calcium Ionized Calcium Joshua Magnesium Total Bilirubin AST ALT Alkaline Phosphatase Creatine Kinase Total Protein Total Protein (PEP) Albumin Vitamin D 25-Hydroxy Procalcitonin PTH Intact Cortisol Urine Protein Urine Glucose (UA) Urine Ketones Urine Blood Ur Leukocyte Esterase Urine RBC Urine WBC Amorphous Sediment Urine Bacteria Urine Mucus Urine Yeast (Budding) Fluid Appearance Synovial Crystals Crossmatch 10/09/24 10/09/24 10/10/24 20:21 23:35 04:03 WBC RBC Hgb Hct MCV MCH RDW Plt Count Neutrophils # Neutrophils # (Manual) Lymphocytes # Lymphocytes # (Manual) Metamyelocytes # (Man) Myelocytes # (Manual) Macrocytosis PT INR APTT ABG pH ABG pCO2 ABG pO2 ABG HCO3 ABG Total CO2 ABG O2 Saturation Hemoglobin Sodium Potassium Chloride Carbon Dioxide BUN Creatinine Glucose POC Glucose (mg/dL) 143 H 170 H 164 H Hemoglobin A1c Plasma Lactic Acid Luis Calcium Ionized Calcium Joshua Magnesium Total Bilirubin AST ALT Alkaline Phosphatase Creatine Kinase Total Protein Total Protein (PEP) Albumin Vitamin D 25-Hydroxy Procalcitonin PTH Intact Cortisol Urine Protein Urine Glucose (UA) Urine Ketones Urine Blood Ur Leukocyte Esterase Urine RBC Urine WBC Amorphous Sediment Urine Bacteria Urine Mucus Urine Yeast (Budding) Fluid Appearance Synovial Crystals Crossmatch 10/10/24 10/10/24 10/10/24 04:37 04:37 08:18 WBC 16.4 H RBC 2.69 L Hgb 9.8 L Hct 29.6 L MCV 110.2 H MCH 36.6 H RDW Plt Count 38 L Neutrophils # 14.9 H Neutrophils # (Manual) Lymphocytes # 0.6 L Lymphocytes # (Manual) Metamyelocytes # (Man) Myelocytes # (Manual) Macrocytosis Marked A PT INR APTT ABG pH ABG pCO2 ABG pO2 ABG HCO3 ABG Total CO2 ABG O2 Saturation Hemoglobin Sodium Potassium Chloride 112 H Carbon Dioxide BUN 35 H Creatinine 1.26 H Glucose 164 H POC Glucose (mg/dL) 168 H Hemoglobin A1c Plasma Lactic Acid Luis Calcium 6.6 L Ionized Calcium Joshua 4.1 L Magnesium Total Bilirubin 3.3 H AST 154 H ALT Alkaline Phosphatase 271 H Creatine Kinase 983 H Total Protein 4.7 L Total Protein (PEP) Albumin 2.2 L Vitamin D 25-Hydroxy Procalcitonin PTH Intact Cortisol Urine Protein Urine Glucose (UA) Urine Ketones Urine Blood Ur Leukocyte Esterase Urine RBC Urine WBC Amorphous Sediment Urine Bacteria Urine Mucus Urine Yeast (Budding) Fluid Appearance Synovial Crystals Crossmatch 10/10/24 10/10/24 10/10/24 12:04 12:39 12:41 WBC RBC Hgb Hct MCV MCH RDW Plt Count Neutrophils # Neutrophils # (Manual) Lymphocytes # Lymphocytes # (Manual) Metamyelocytes # (Man) Myelocytes # (Manual) Macrocytosis PT INR APTT ABG pH ABG pCO2 ABG pO2 ABG HCO3 ABG Total CO2 ABG O2 Saturation Hemoglobin Sodium Potassium Chloride Carbon Dioxide BUN Creatinine Glucose POC Glucose (mg/dL) 226 H 191 H Hemoglobin A1c Plasma Lactic Acid Luis Calcium Ionized Calcium Joshua Magnesium Total Bilirubin AST ALT Alkaline Phosphatase Creatine Kinase Total Protein Total Protein (PEP) Albumin Vitamin D 25-Hydroxy Procalcitonin PTH Intact Cortisol Urine Protein Urine Glucose (UA) Urine Ketones Urine Blood Ur Leukocyte Esterase Urine RBC Urine WBC Amorphous Sediment Urine Bacteria Urine Mucus Urine Yeast (Budding) Fluid Appearance Synovial Crystals CA Pyrophosphat A Crossmatch 10/10/24 10/10/24 10/10/24 16:40 21:22 21:28 WBC 18.2 H RBC 2.56 L Hgb 9.3 L Hct 28.8 L MCV 112.3 H MCH 36.3 H RDW Plt Count 42 L Neutrophils # Neutrophils # (Manual) Lymphocytes # Lymphocytes # (Manual) Metamyelocytes # (Man) Myelocytes # (Manual) Macrocytosis Marked A PT INR APTT ABG pH 7.29 L ABG pCO2 46 H ABG pO2 ABG HCO3 ABG Total CO2 ABG O2 Saturation 97.4 H Hemoglobin 9.6 L Sodium Potassium Chloride Carbon Dioxide BUN Creatinine Glucose POC Glucose (mg/dL) 187 H Hemoglobin A1c Plasma Lactic Acid Luis Calcium Ionized Calcium Joshua Magnesium Total Bilirubin AST ALT Alkaline Phosphatase Creatine Kinase Total Protein Total Protein (PEP) Albumin Vitamin D 25-Hydroxy Procalcitonin PTH Intact Cortisol Urine Protein Urine Glucose (UA) Urine Ketones Urine Blood Ur Leukocyte Esterase Urine RBC Urine WBC Amorphous Sediment Urine Bacteria Urine Mucus Urine Yeast (Budding) Fluid Appearance Synovial Crystals Crossmatch 10/10/24 10/10/24 10/10/24 21:28 21:36 23:33 WBC RBC Hgb Hct MCV MCH RDW Plt Count Neutrophils # Neutrophils # (Manual) Lymphocytes # Lymphocytes # (Manual) Metamyelocytes # (Man) Myelocytes # (Manual) Macrocytosis PT INR APTT ABG pH ABG pCO2 ABG pO2 ABG HCO3 ABG Total CO2 ABG O2 Saturation Hemoglobin Sodium Potassium Chloride 112 H Carbon Dioxide 20 L BUN 34 H Creatinine Glucose 166 H POC Glucose (mg/dL) 169 H 215 H Hemoglobin A1c Plasma Lactic Acid Luis Calcium 6.7 L Ionized Calcium Joshua Magnesium Total Bilirubin AST ALT Alkaline Phosphatase Creatine Kinase Total Protein Total Protein (PEP) Albumin Vitamin D 25-Hydroxy Procalcitonin PTH Intact Cortisol Urine Protein Urine Glucose (UA) Urine Ketones Urine Blood Ur Leukocyte Esterase Urine RBC Urine WBC Amorphous Sediment Urine Bacteria Urine Mucus Urine Yeast (Budding) Fluid Appearance Synovial Crystals Crossmatch 10/11/24 10/11/24 10/11/24 04:13 04:40 04:40 WBC 18.1 H RBC 2.46 L Hgb 8.8 L Hct 27.6 L MCV 112.2 H MCH 35.7 H RDW Plt Count 52 L Neutrophils # Neutrophils # (Manual) Lymphocytes # Lymphocytes # (Manual) Metamyelocytes # (Man) Myelocytes # (Manual) Macrocytosis Marked A PT INR APTT ABG pH ABG pCO2 ABG pO2 ABG HCO3 ABG Total CO2 ABG O2 Saturation Hemoglobin Sodium Potassium Chloride 115 H Carbon Dioxide 17 L BUN 35 H Creatinine Glucose 191 H POC Glucose (mg/dL) 202 H Hemoglobin A1c Plasma Lactic Acid Luis Calcium 6.5 L Ionized Calcium Joshua Magnesium Total Bilirubin AST ALT Alkaline Phosphatase Creatine Kinase 215 H Total Protein Total Protein (PEP) Albumin Vitamin D 25-Hydroxy Procalcitonin PTH Intact Cortisol Urine Protein Urine Glucose (UA) Urine Ketones Urine Blood Ur Leukocyte Esterase Urine RBC Urine WBC Amorphous Sediment Urine Bacteria Urine Mucus Urine Yeast (Budding) Fluid Appearance Synovial Crystals Crossmatch 10/11/24 10/11/24 10/11/24 05:59 11:48 16:22 WBC RBC Hgb Hct MCV MCH RDW Plt Count Neutrophils # Neutrophils # (Manual) Lymphocytes # Lymphocytes # (Manual) Metamyelocytes # (Man) Myelocytes # (Manual) Macrocytosis PT INR APTT ABG pH 7.34 L ABG pCO2 ABG pO2 ABG HCO3 20 L ABG Total CO2 ABG O2 Saturation 98.2 H Hemoglobin Sodium Potassium Chloride Carbon Dioxide BUN Creatinine Glucose POC Glucose (mg/dL) 232 H 194 H Hemoglobin A1c Plasma Lactic Acid Luis Calcium Ionized Calcium Joshua Magnesium Total Bilirubin AST ALT Alkaline Phosphatase Creatine Kinase Total Protein Total Protein (PEP) Albumin Vitamin D 25-Hydroxy Procalcitonin PTH Intact Cortisol Urine Protein Urine Glucose (UA) Urine Ketones Urine Blood Ur Leukocyte Esterase Urine RBC Urine WBC Amorphous Sediment Urine Bacteria Urine Mucus Urine Yeast (Budding) Fluid Appearance Synovial Crystals Crossmatch 10/11/24 10/11/24 10/12/24 19:50 23:23 03:34 WBC RBC Hgb Hct MCV MCH RDW Plt Count Neutrophils # Neutrophils # (Manual) Lymphocytes # Lymphocytes # (Manual) Metamyelocytes # (Man) Myelocytes # (Manual) Macrocytosis PT INR APTT ABG pH ABG pCO2 ABG pO2 ABG HCO3 ABG Total CO2 ABG O2 Saturation Hemoglobin Sodium Potassium Chloride Carbon Dioxide BUN Creatinine Glucose POC Glucose (mg/dL) 252 H 229 H 294 H Hemoglobin A1c Plasma Lactic Acid Luis Calcium Ionized Calcium Joshua Magnesium Total Bilirubin AST ALT Alkaline Phosphatase Creatine Kinase Total Protein Total Protein (PEP) Albumin Vitamin D 25-Hydroxy Procalcitonin PTH Intact Cortisol Urine Protein Urine Glucose (UA) Urine Ketones Urine Blood Ur Leukocyte Esterase Urine RBC Urine WBC Amorphous Sediment Urine Bacteria Urine Mucus Urine Yeast (Budding) Fluid Appearance Synovial Crystals Crossmatch 10/12/24 10/12/24 10/12/24 03:36 03:36 03:36 WBC 17.4 H RBC 2.28 L Hgb 8.2 L Hct 25.2 L MCV 110.7 H MCH 36.2 H RDW Plt Count 53 L Neutrophils # 15.6 H Neutrophils # (Manual) Lymphocytes # 0.8 L Lymphocytes # (Manual) Metamyelocytes # (Man) Myelocytes # (Manual) Macrocytosis Marked A PT INR APTT ABG pH ABG pCO2 ABG pO2 ABG HCO3 ABG Total CO2 ABG O2 Saturation Hemoglobin Sodium Potassium Chloride 116 H Carbon Dioxide BUN 39 H Creatinine Glucose 258 H POC Glucose (mg/dL) Hemoglobin A1c Plasma Lactic Acid Luis Calcium 6.8 L Ionized Calcium Joshua 4.4 L Magnesium Total Bilirubin 1.8 H AST ALT Alkaline Phosphatase 444 H Creatine Kinase Total Protein 4.7 L Total Protein (PEP) Albumin 1.9 L Vitamin D 25-Hydroxy Procalcitonin PTH Intact Cortisol Urine Protein Urine Glucose (UA) Urine Ketones Urine Blood Ur Leukocyte Esterase Urine RBC Urine WBC Amorphous Sediment Urine Bacteria Urine Mucus Urine Yeast (Budding) Fluid Appearance Synovial Crystals Crossmatch 10/12/24 10/12/24 10/12/24 05:45 08:01 10:00 WBC RBC Hgb Hct MCV MCH RDW Plt Count Neutrophils # Neutrophils # (Manual) Lymphocytes # Lymphocytes # (Manual) Metamyelocytes # (Man) Myelocytes # (Manual) Macrocytosis PT INR APTT ABG pH ABG pCO2 ABG pO2 74 L ABG HCO3 ABG Total CO2 26 H ABG O2 Saturation Hemoglobin 8.0 L Sodium Potassium Chloride Carbon Dioxide BUN Creatinine Glucose POC Glucose (mg/dL) 356 H Hemoglobin A1c Plasma Lactic Acid Luis Calcium Ionized Calcium Joshua Magnesium Total Bilirubin AST ALT Alkaline Phosphatase Creatine Kinase Total Protein Total Protein (PEP) Albumin Vitamin D 25-Hydroxy 26.5 L Procalcitonin PTH Intact Cortisol Urine Protein Urine Glucose (UA) Urine Ketones Urine Blood Ur Leukocyte Esterase Urine RBC Urine WBC Amorphous Sediment Urine Bacteria Urine Mucus Urine Yeast (Budding) Fluid Appearance Synovial Crystals Crossmatch 10/12/24 10/12/24 10/12/24 11:51 15:28 16:05 WBC RBC Hgb Hct MCV MCH RDW Plt Count Neutrophils # Neutrophils # (Manual) Lymphocytes # Lymphocytes # (Manual) Metamyelocytes # (Man) Myelocytes # (Manual) Macrocytosis PT INR APTT ABG pH ABG pCO2 ABG pO2 ABG HCO3 ABG Total CO2 ABG O2 Saturation Hemoglobin Sodium Potassium 3.4 L Chloride Carbon Dioxide BUN Creatinine Glucose POC Glucose (mg/dL) 322 H 369 H Hemoglobin A1c Plasma Lactic Acid Luis Calcium Ionized Calcium Joshua Magnesium Total Bilirubin AST ALT Alkaline Phosphatase Creatine Kinase Total Protein Total Protein (PEP) Albumin Vitamin D 25-Hydroxy Procalcitonin PTH Intact Cortisol Urine Protein Urine Glucose (UA) Urine Ketones Urine Blood Ur Leukocyte Esterase Urine RBC Urine WBC Amorphous Sediment Urine Bacteria Urine Mucus Urine Yeast (Budding) Fluid Appearance Synovial Crystals Crossmatch 10/12/24 10/12/24 10/13/24 19:27 23:24 03:52 WBC 18.8 H RBC 2.30 L Hgb 8.2 L Hct 25.8 L MCV 112.4 H MCH 35.6 H RDW Plt Count 78 L Neutrophils # 16.5 H Neutrophils # (Manual) Lymphocytes # Lymphocytes # (Manual) Metamyelocytes # (Man) Myelocytes # (Manual) Macrocytosis Marked A PT INR APTT ABG pH ABG pCO2 ABG pO2 ABG HCO3 ABG Total CO2 ABG O2 Saturation Hemoglobin Sodium Potassium Chloride Carbon Dioxide BUN Creatinine Glucose POC Glucose (mg/dL) 333 H 330 H Hemoglobin A1c Plasma Lactic Acid Luis Calcium Ionized Calcium Joshua Magnesium Total Bilirubin AST ALT Alkaline Phosphatase Creatine Kinase Total Protein Total Protein (PEP) Albumin Vitamin D 25-Hydroxy Procalcitonin PTH Intact Cortisol Urine Protein Urine Glucose (UA) Urine Ketones Urine Blood Ur Leukocyte Esterase Urine RBC Urine WBC Amorphous Sediment Urine Bacteria Urine Mucus Urine Yeast (Budding) Fluid Appearance Synovial Crystals Crossmatch 10/13/24 10/13/24 10/13/24 03:52 03:55 05:59 WBC RBC Hgb Hct MCV MCH RDW Plt Count Neutrophils # Neutrophils # (Manual) Lymphocytes # Lymphocytes # (Manual) Metamyelocytes # (Man) Myelocytes # (Manual) Macrocytosis PT INR APTT ABG pH ABG pCO2 ABG pO2 72 L ABG HCO3 27 H ABG Total CO2 28 H ABG O2 Saturation Hemoglobin 8.0 L Sodium Potassium Chloride 117 H Carbon Dioxide BUN 47 H Creatinine Glucose 281 H POC Glucose (mg/dL) 319 H Hemoglobin A1c Plasma Lactic Acid Luis Calcium 7.3 L Ionized Calcium Joshua Magnesium Total Bilirubin AST ALT Alkaline Phosphatase 555 H Creatine Kinase Total Protein 5.1 L Total Protein (PEP) Albumin 2.1 L Vitamin D 25-Hydroxy Procalcitonin PTH Intact Cortisol Urine Protein Urine Glucose (UA) Urine Ketones Urine Blood Ur Leukocyte Esterase Urine RBC Urine WBC Amorphous Sediment Urine Bacteria Urine Mucus Urine Yeast (Budding) Fluid Appearance Synovial Crystals Crossmatch 10/13/24 10/13/24 10/13/24 08:43 11:29 17:15 WBC RBC Hgb Hct MCV MCH RDW Plt Count Neutrophils # Neutrophils # (Manual) Lymphocytes # Lymphocytes # (Manual) Metamyelocytes # (Man) Myelocytes # (Manual) Macrocytosis PT INR APTT ABG pH ABG pCO2 ABG pO2 ABG HCO3 ABG Total CO2 ABG O2 Saturation Hemoglobin Sodium Potassium Chloride Carbon Dioxide BUN Creatinine Glucose POC Glucose (mg/dL) 340 H 277 H 211 H Hemoglobin A1c Plasma Lactic Acid Luis Calcium Ionized Calcium Joshua Magnesium Total Bilirubin AST ALT Alkaline Phosphatase Creatine Kinase Total Protein Total Protein (PEP) Albumin Vitamin D 25-Hydroxy Procalcitonin PTH Intact Cortisol Urine Protein Urine Glucose (UA) Urine Ketones Urine Blood Ur Leukocyte Esterase Urine RBC Urine WBC Amorphous Sediment Urine Bacteria Urine Mucus Urine Yeast (Budding) Fluid Appearance Synovial Crystals Crossmatch 10/13/24 10/13/24 10/14/24 19:56 23:44 03:54 WBC 16.0 H RBC 2.18 L Hgb 7.9 L Hct 24.6 L MCV 112.8 H MCH 36.2 H RDW Plt Count 102 L Neutrophils # 14.2 H Neutrophils # (Manual) Lymphocytes # 0.9 L Lymphocytes # (Manual) Metamyelocytes # (Man) Myelocytes # (Manual) Macrocytosis Marked A PT INR APTT ABG pH ABG pCO2 ABG pO2 ABG HCO3 ABG Total CO2 ABG O2 Saturation Hemoglobin Sodium Potassium Chloride Carbon Dioxide BUN Creatinine Glucose POC Glucose (mg/dL) 235 H 269 H Hemoglobin A1c Plasma Lactic Acid Luis Calcium Ionized Calcium Joshua Magnesium Total Bilirubin AST ALT Alkaline Phosphatase Creatine Kinase Total Protein Total Protein (PEP) Albumin Vitamin D 25-Hydroxy Procalcitonin PTH Intact Cortisol Urine Protein Urine Glucose (UA) Urine Ketones Urine Blood Ur Leukocyte Esterase Urine RBC Urine WBC Amorphous Sediment Urine Bacteria Urine Mucus Urine Yeast (Budding) Fluid Appearance Synovial Crystals Crossmatch 10/14/24 10/14/24 10/14/24 03:54 03:56 04:24 WBC RBC Hgb Hct MCV MCH RDW Plt Count Neutrophils # Neutrophils # (Manual) Lymphocytes # Lymphocytes # (Manual) Metamyelocytes # (Man) Myelocytes # (Manual) Macrocytosis PT INR APTT ABG pH 7.49 H ABG pCO2 ABG pO2 73 L ABG HCO3 30 H ABG Total CO2 31 H ABG O2 Saturation Hemoglobin 7.9 L Sodium 148 H Potassium Chloride 117 H Carbon Dioxide BUN 48 H Creatinine Glucose 232 H POC Glucose (mg/dL) 255 H Hemoglobin A1c Plasma Lactic Acid Luis Calcium 7.1 L Ionized Calcium Joshua Magnesium Total Bilirubin AST ALT Alkaline Phosphatase Creatine Kinase Total Protein Total Protein (PEP) Albumin Vitamin D 25-Hydroxy Procalcitonin PTH Intact Cortisol Urine Protein Urine Glucose (UA) Urine Ketones Urine Blood Ur Leukocyte Esterase Urine RBC Urine WBC Amorphous Sediment Urine Bacteria Urine Mucus Urine Yeast (Budding) Fluid Appearance Synovial Crystals Crossmatch 10/14/24 10/14/24 10/14/24 08:02 12:03 16:12 WBC RBC Hgb Hct MCV MCH RDW Plt Count Neutrophils # Neutrophils # (Manual) Lymphocytes # Lymphocytes # (Manual) Metamyelocytes # (Man) Myelocytes # (Manual) Macrocytosis PT INR APTT ABG pH ABG pCO2 ABG pO2 ABG HCO3 ABG Total CO2 ABG O2 Saturation Hemoglobin Sodium Potassium Chloride Carbon Dioxide BUN Creatinine Glucose POC Glucose (mg/dL) 251 H 246 H 170 H Hemoglobin A1c Plasma Lactic Acid Luis Calcium Ionized Calcium Joshua Magnesium Total Bilirubin AST ALT Alkaline Phosphatase Creatine Kinase Total Protein Total Protein (PEP) Albumin Vitamin D 25-Hydroxy Procalcitonin PTH Intact Cortisol Urine Protein Urine Glucose (UA) Urine Ketones Urine Blood Ur Leukocyte Esterase Urine RBC Urine WBC Amorphous Sediment Urine Bacteria Urine Mucus Urine Yeast (Budding) Fluid Appearance Synovial Crystals Crossmatch 10/14/24 10/14/24 10/15/24 19:56 23:34 01:12 WBC RBC Hgb Hct MCV MCH RDW Plt Count Neutrophils # Neutrophils # (Manual) Lymphocytes # Lymphocytes # (Manual) Metamyelocytes # (Man) Myelocytes # (Manual) Macrocytosis PT INR APTT ABG pH ABG pCO2 ABG pO2 ABG HCO3 ABG Total CO2 ABG O2 Saturation Hemoglobin Sodium Potassium Chloride Carbon Dioxide BUN Creatinine Glucose POC Glucose (mg/dL) 205 H 139 H 123 H Hemoglobin A1c Plasma Lactic Acid Luis Calcium Ionized Calcium Joshua Magnesium Total Bilirubin AST ALT Alkaline Phosphatase Creatine Kinase Total Protein Total Protein (PEP) Albumin Vitamin D 25-Hydroxy Procalcitonin PTH Intact Cortisol Urine Protein Urine Glucose (UA) Urine Ketones Urine Blood Ur Leukocyte Esterase Urine RBC Urine WBC Amorphous Sediment Urine Bacteria Urine Mucus Urine Yeast (Budding) Fluid Appearance Synovial Crystals Crossmatch 10/15/24 10/15/24 10/15/24 03:50 03:50 03:50 WBC 15.4 H RBC 2.17 L Hgb 7.9 L Hct 24.7 L MCV 114.1 H MCH 36.4 H RDW Plt Count 118 L Neutrophils # 13.4 H Neutrophils # (Manual) Lymphocytes # Lymphocytes # (Manual) Metamyelocytes # (Man) Myelocytes # (Manual) Macrocytosis Marked A PT INR APTT ABG pH ABG pCO2 ABG pO2 ABG HCO3 ABG Total CO2 ABG O2 Saturation Hemoglobin Sodium 151 H Potassium 3.2 L Chloride 115 H Carbon Dioxide 35 H BUN 47 H Creatinine Glucose 122 H POC Glucose (mg/dL) 134 H Hemoglobin A1c Plasma Lactic Acid Luis Calcium 7.0 L Ionized Calcium Joshua Magnesium 1.3 L Total Bilirubin AST ALT Alkaline Phosphatase Creatine Kinase Total Protein Total Protein (PEP) Albumin Vitamin D 25-Hydroxy Procalcitonin PTH Intact Cortisol Urine Protein Urine Glucose (UA) Urine Ketones Urine Blood Ur Leukocyte Esterase Urine RBC Urine WBC Amorphous Sediment Urine Bacteria Urine Mucus Urine Yeast (Budding) Fluid Appearance Synovial Crystals Crossmatch 10/15/24 10/15/24 10/15/24 04:38 08:26 11:28 WBC RBC Hgb Hct MCV MCH RDW Plt Count Neutrophils # Neutrophils # (Manual) Lymphocytes # Lymphocytes # (Manual) Metamyelocytes # (Man) Myelocytes # (Manual) Macrocytosis PT INR APTT ABG pH 7.50 H ABG pCO2 ABG pO2 68 L ABG HCO3 34 H ABG Total CO2 35 H ABG O2 Saturation Hemoglobin 7.8 L Sodium Potassium Chloride Carbon Dioxide BUN Creatinine Glucose POC Glucose (mg/dL) 185 H Hemoglobin A1c Plasma Lactic Acid Luis Calcium Ionized Calcium Joshua Magnesium Total Bilirubin AST ALT Alkaline Phosphatase Creatine Kinase Total Protein Total Protein (PEP) Albumin Vitamin D 25-Hydroxy Procalcitonin PTH Intact 112.0 H Cortisol Urine Protein Urine Glucose (UA) Urine Ketones Urine Blood Ur Leukocyte Esterase Urine RBC Urine WBC Amorphous Sediment Urine Bacteria Urine Mucus Urine Yeast (Budding) Fluid Appearance Synovial Crystals Crossmatch 10/15/24 10/15/24 10/15/24 11:37 14:55 18:00 WBC RBC Hgb Hct MCV MCH RDW Plt Count Neutrophils # Neutrophils # (Manual) Lymphocytes # Lymphocytes # (Manual) Metamyelocytes # (Man) Myelocytes # (Manual) Macrocytosis PT INR APTT ABG pH 7.53 H ABG pCO2 ABG pO2 59 L* ABG HCO3 34 H ABG Total CO2 35 H ABG O2 Saturation 93.2 L Hemoglobin 7.8 L Sodium 149 H Potassium Chloride Carbon Dioxide BUN Creatinine Glucose POC Glucose (mg/dL) 178 H Hemoglobin A1c Plasma Lactic Acid Luis Calcium Ionized Calcium Joshua Magnesium Total Bilirubin AST ALT Alkaline Phosphatase Creatine Kinase Total Protein Total Protein (PEP) Albumin Vitamin D 25-Hydroxy Procalcitonin PTH Intact Cortisol Urine Protein Urine Glucose (UA) Urine Ketones Urine Blood Ur Leukocyte Esterase Urine RBC Urine WBC Amorphous Sediment Urine Bacteria Urine Mucus Urine Yeast (Budding) Fluid Appearance Synovial Crystals Crossmatch 10/15/24 10/15/24 10/16/24 20:54 23:24 04:30 WBC 16.0 H RBC 2.15 L Hgb 7.8 L Hct 24.6 L MCV 114.4 H MCH 36.1 H RDW Plt Count 126 L Neutrophils # 14.5 H Neutrophils # (Manual) Lymphocytes # Lymphocytes # (Manual) Metamyelocytes # (Man) Myelocytes # (Manual) Macrocytosis Marked A PT INR APTT ABG pH ABG pCO2 ABG pO2 ABG HCO3 ABG Total CO2 ABG O2 Saturation Hemoglobin Sodium Potassium Chloride Carbon Dioxide BUN Creatinine Glucose POC Glucose (mg/dL) 45 L* 69 L Hemoglobin A1c Plasma Lactic Acid Luis Calcium Ionized Calcium Joshua Magnesium Total Bilirubin AST ALT Alkaline Phosphatase Creatine Kinase Total Protein Total Protein (PEP) Albumin Vitamin D 25-Hydroxy Procalcitonin PTH Intact Cortisol Urine Protein Urine Glucose (UA) Urine Ketones Urine Blood Ur Leukocyte Esterase Urine RBC Urine WBC Amorphous Sediment Urine Bacteria Urine Mucus Urine Yeast (Budding) Fluid Appearance Synovial Crystals Crossmatch 10/16/24 10/16/24 10/16/24 04:30 04:30 04:34 WBC RBC Hgb Hct MCV MCH RDW Plt Count Neutrophils # Neutrophils # (Manual) Lymphocytes # Lymphocytes # (Manual) Metamyelocytes # (Man) Myelocytes # (Manual) Macrocytosis PT INR APTT ABG pH ABG pCO2 ABG pO2 ABG HCO3 ABG Total CO2 ABG O2 Saturation Hemoglobin Sodium 149 H Potassium 3.4 L Chloride 115 H Carbon Dioxide 34 H BUN 37 H Creatinine Glucose 134 H POC Glucose (mg/dL) 145 H Hemoglobin A1c Plasma Lactic Acid Luis Calcium 7.3 L Ionized Calcium Joshua Magnesium Total Bilirubin AST ALT Alkaline Phosphatase Creatine Kinase Total Protein Total Protein (PEP) Albumin Vitamin D 25-Hydroxy Procalcitonin 1.08 H PTH Intact Cortisol Urine Protein Urine Glucose (UA) Urine Ketones Urine Blood Ur Leukocyte Esterase Urine RBC Urine WBC Amorphous Sediment Urine Bacteria Urine Mucus Urine Yeast (Budding) Fluid Appearance Synovial Crystals Crossmatch 10/16/24 10/16/24 10/16/24 08:25 12:03 16:10 WBC RBC Hgb Hct MCV MCH RDW Plt Count Neutrophils # Neutrophils # (Manual) Lymphocytes # Lymphocytes # (Manual) Metamyelocytes # (Man) Myelocytes # (Manual) Macrocytosis PT INR APTT ABG pH ABG pCO2 ABG pO2 ABG HCO3 ABG Total CO2 ABG O2 Saturation Hemoglobin Sodium Potassium Chloride Carbon Dioxide BUN Creatinine Glucose POC Glucose (mg/dL) 205 H 163 H 216 H Hemoglobin A1c Plasma Lactic Acid Luis Calcium Ionized Calcium Joshua Magnesium Total Bilirubin AST ALT Alkaline Phosphatase Creatine Kinase Total Protein Total Protein (PEP) Albumin Vitamin D 25-Hydroxy Procalcitonin PTH Intact Cortisol Urine Protein Urine Glucose (UA) Urine Ketones Urine Blood Ur Leukocyte Esterase Urine RBC Urine WBC Amorphous Sediment Urine Bacteria Urine Mucus Urine Yeast (Budding) Fluid Appearance Synovial Crystals Crossmatch 10/16/24 10/17/24 10/17/24 21:34 03:39 03:50 WBC 11.8 H RBC 2.07 L Hgb 7.5 L Hct 23.5 L MCV 113.5 H MCH 36.0 H RDW Plt Count Neutrophils # 10.3 H Neutrophils # (Manual) Lymphocytes # Lymphocytes # (Manual) Metamyelocytes # (Man) Myelocytes # (Manual) Macrocytosis Marked A PT INR APTT ABG pH ABG pCO2 ABG pO2 ABG HCO3 ABG Total CO2 ABG O2 Saturation Hemoglobin Sodium Potassium Chloride Carbon Dioxide BUN Creatinine Glucose POC Glucose (mg/dL) 304 H 231 H Hemoglobin A1c Plasma Lactic Acid Luis Calcium Ionized Calcium Joshua Magnesium Total Bilirubin AST ALT Alkaline Phosphatase Creatine Kinase Total Protein Total Protein (PEP) Albumin Vitamin D 25-Hydroxy Procalcitonin PTH Intact Cortisol Urine Protein Urine Glucose (UA) Urine Ketones Urine Blood Ur Leukocyte Esterase Urine RBC Urine WBC Amorphous Sediment Urine Bacteria Urine Mucus Urine Yeast (Budding) Fluid Appearance Synovial Crystals Crossmatch 10/17/24 10/17/24 10/17/24 03:50 05:43 06:04 WBC RBC Hgb Hct MCV MCH RDW Plt Count Neutrophils # Neutrophils # (Manual) Lymphocytes # Lymphocytes # (Manual) Metamyelocytes # (Man) Myelocytes # (Manual) Macrocytosis PT INR APTT ABG pH 7.47 H ABG pCO2 ABG pO2 45 L* ABG HCO3 32 H ABG Total CO2 33 H ABG O2 Saturation 80.1 L Hemoglobin 7.9 L Sodium 146 H Potassium 3.4 L Chloride 113 H Carbon Dioxide 31 H BUN 43 H Creatinine Glucose 201 H POC Glucose (mg/dL) 231 H Hemoglobin A1c Plasma Lactic Acid Luis Calcium 6.9 L Ionized Calcium Joshua Magnesium Total Bilirubin AST ALT Alkaline Phosphatase 239 H Creatine Kinase Total Protein 5.4 L Total Protein (PEP) Albumin 2.1 L Vitamin D 25-Hydroxy Procalcitonin PTH Intact Cortisol Urine Protein Urine Glucose (UA) Urine Ketones Urine Blood Ur Leukocyte Esterase Urine RBC Urine WBC Amorphous Sediment Urine Bacteria Urine Mucus Urine Yeast (Budding) Fluid Appearance Synovial Crystals Crossmatch 10/17/24 10/17/24 10/17/24 12:23 13:07 17:10 WBC RBC Hgb Hct MCV MCH RDW Plt Count Neutrophils # Neutrophils # (Manual) Lymphocytes # Lymphocytes # (Manual) Metamyelocytes # (Man) Myelocytes # (Manual) Macrocytosis PT INR APTT ABG pH ABG pCO2 ABG pO2 ABG HCO3 ABG Total CO2 ABG O2 Saturation Hemoglobin Sodium Potassium Chloride Carbon Dioxide BUN Creatinine Glucose POC Glucose (mg/dL) 264 H 261 H Hemoglobin A1c Plasma Lactic Acid Luis Calcium Ionized Calcium Joshua Magnesium Total Bilirubin AST ALT Alkaline Phosphatase Creatine Kinase Total Protein Total Protein (PEP) Albumin Vitamin D 25-Hydroxy Procalcitonin PTH Intact Cortisol Urine Protein Urine Glucose (UA) Urine Ketones Urine Blood Ur Leukocyte Esterase Urine RBC Urine WBC Amorphous Sediment Urine Bacteria Urine Mucus Urine Yeast (Budding) Fluid Appearance Slightly Cloudy A Synovial Crystals Crossmatch 10/17/24 10/18/24 10/18/24 19:59 04:18 04:18 WBC RBC 2.11 L Hgb 7.8 L Hct 24.4 L MCV 115.6 H MCH 37.1 H RDW Plt Count Neutrophils # Neutrophils # (Manual) Lymphocytes # Lymphocytes # (Manual) Metamyelocytes # (Man) Myelocytes # (Manual) Macrocytosis Marked A PT INR APTT ABG pH ABG pCO2 ABG pO2 ABG HCO3 ABG Total CO2 ABG O2 Saturation Hemoglobin Sodium 146 H Potassium Chloride 114 H Carbon Dioxide 31 H BUN 43 H Creatinine 1.37 H Glucose 119 H POC Glucose (mg/dL) 248 H Hemoglobin A1c Plasma Lactic Acid Luis Calcium 7.0 L Ionized Calcium Joshua Magnesium Total Bilirubin AST ALT Alkaline Phosphatase Creatine Kinase Total Protein Total Protein (PEP) Albumin Vitamin D 25-Hydroxy Procalcitonin PTH Intact Cortisol Urine Protein Urine Glucose (UA) Urine Ketones Urine Blood Ur Leukocyte Esterase Urine RBC Urine WBC Amorphous Sediment Urine Bacteria Urine Mucus Urine Yeast (Budding) Fluid Appearance Synovial Crystals Crossmatch 10/18/24 10/18/24 10/18/24 06:19 08:05 12:00 WBC RBC Hgb Hct MCV MCH RDW Plt Count Neutrophils # Neutrophils # (Manual) Lymphocytes # Lymphocytes # (Manual) Metamyelocytes # (Man) Myelocytes # (Manual) Macrocytosis PT INR APTT ABG pH ABG pCO2 ABG pO2 ABG HCO3 ABG Total CO2 ABG O2 Saturation Hemoglobin Sodium Potassium Chloride Carbon Dioxide BUN Creatinine 1.34 H Glucose POC Glucose (mg/dL) 149 H 148 H Hemoglobin A1c Plasma Lactic Acid Luis Calcium Ionized Calcium Joshua Magnesium Total Bilirubin AST ALT Alkaline Phosphatase Creatine Kinase Total Protein Total Protein (PEP) Albumin Vitamin D 25-Hydroxy Procalcitonin PTH Intact Cortisol Urine Protein Urine Glucose (UA) Urine Ketones Urine Blood Ur Leukocyte Esterase Urine RBC Urine WBC Amorphous Sediment Urine Bacteria Urine Mucus Urine Yeast (Budding) Fluid Appearance Synovial Crystals Crossmatch 10/18/24 10/18/24 10/18/24 14:18 15:46 16:55 WBC RBC Hgb Hct MCV MCH RDW Plt Count Neutrophils # Neutrophils # (Manual) Lymphocytes # Lymphocytes # (Manual) Metamyelocytes # (Man) Myelocytes # (Manual) Macrocytosis PT INR APTT 109.1 H* ABG pH 7.46 H ABG pCO2 ABG pO2 43 L* ABG HCO3 28 H 27 H ABG Total CO2 29 H 28 H ABG O2 Saturation 80.7 L 97.9 H Hemoglobin 7.8 L 7.6 L Sodium Potassium Chloride Carbon Dioxide BUN Creatinine Glucose POC Glucose (mg/dL) Hemoglobin A1c Plasma Lactic Acid Luis Calcium Ionized Calcium Joshua Magnesium Total Bilirubin AST ALT Alkaline Phosphatase Creatine Kinase Total Protein Total Protein (PEP) Albumin Vitamin D 25-Hydroxy Procalcitonin PTH Intact Cortisol Urine Protein Urine Glucose (UA) Urine Ketones Urine Blood Ur Leukocyte Esterase Urine RBC Urine WBC Amorphous Sediment Urine Bacteria Urine Mucus Urine Yeast (Budding) Fluid Appearance Synovial Crystals Crossmatch 10/18/24 10/18/24 10/18/24 17:27 20:35 23:21 WBC RBC Hgb Hct MCV MCH RDW Plt Count Neutrophils # Neutrophils # (Manual) Lymphocytes # Lymphocytes # (Manual) Metamyelocytes # (Man) Myelocytes # (Manual) Macrocytosis PT INR APTT 62.7 H ABG pH ABG pCO2 ABG pO2 ABG HCO3 ABG Total CO2 ABG O2 Saturation Hemoglobin Sodium Potassium Chloride Carbon Dioxide BUN Creatinine Glucose POC Glucose (mg/dL) 185 H 245 H Hemoglobin A1c Plasma Lactic Acid Luis Calcium Ionized Calcium Joshua Magnesium Total Bilirubin AST ALT Alkaline Phosphatase Creatine Kinase Total Protein Total Protein (PEP) Albumin Vitamin D 25-Hydroxy Procalcitonin PTH Intact Cortisol Urine Protein Urine Glucose (UA) Urine Ketones Urine Blood Ur Leukocyte Esterase Urine RBC Urine WBC Amorphous Sediment Urine Bacteria Urine Mucus Urine Yeast (Budding) Fluid Appearance Synovial Crystals Crossmatch 10/18/24 10/19/24 10/19/24 23:22 03:55 03:55 WBC RBC 2.03 L Hgb 7.1 L Hct 22.7 L MCV 112.1 H MCH 35.3 H RDW Plt Count Neutrophils # Neutrophils # (Manual) Lymphocytes # Lymphocytes # (Manual) Metamyelocytes # (Man) Myelocytes # (Manual) Macrocytosis Marked A PT INR APTT ABG pH ABG pCO2 ABG pO2 ABG HCO3 ABG Total CO2 ABG O2 Saturation Hemoglobin Sodium Potassium Chloride 117 H Carbon Dioxide BUN 40 H Creatinine 1.43 H Glucose 176 H POC Glucose (mg/dL) 223 H Hemoglobin A1c Plasma Lactic Acid Luis Calcium Ionized Calcium Joshua Magnesium 2.4 H Total Bilirubin AST ALT Alkaline Phosphatase Creatine Kinase Total Protein Total Protein (PEP) Albumin Vitamin D 25-Hydroxy Procalcitonin PTH Intact Cortisol Urine Protein Urine Glucose (UA) Urine Ketones Urine Blood Ur Leukocyte Esterase Urine RBC Urine WBC Amorphous Sediment Urine Bacteria Urine Mucus Urine Yeast (Budding) Fluid Appearance Synovial Crystals Crossmatch 10/19/24 10/19/24 10/19/24 05:49 05:52 06:15 WBC RBC Hgb Hct MCV MCH RDW Plt Count Neutrophils # Neutrophils # (Manual) Lymphocytes # Lymphocytes # (Manual) Metamyelocytes # (Man) Myelocytes # (Manual) Macrocytosis PT INR APTT 63.3 H ABG pH 7.49 H ABG pCO2 ABG pO2 ABG HCO3 27 H ABG Total CO2 28 H ABG O2 Saturation 98.8 H Hemoglobin 7.1 L Sodium Potassium Chloride Carbon Dioxide BUN Creatinine Glucose POC Glucose (mg/dL) 193 H Hemoglobin A1c Plasma Lactic Acid Luis Calcium Ionized Calcium Joshua Magnesium Total Bilirubin AST ALT Alkaline Phosphatase Creatine Kinase Total Protein Total Protein (PEP) Albumin Vitamin D 25-Hydroxy Procalcitonin PTH Intact Cortisol Urine Protein Urine Glucose (UA) Urine Ketones Urine Blood Ur Leukocyte Esterase Urine RBC Urine WBC Amorphous Sediment Urine Bacteria Urine Mucus Urine Yeast (Budding) Fluid Appearance Synovial Crystals Crossmatch 10/19/24 10/19/24 10/19/24 08:50 12:05 17:52 WBC RBC Hgb Hct MCV MCH RDW Plt Count Neutrophils # Neutrophils # (Manual) Lymphocytes # Lymphocytes # (Manual) Metamyelocytes # (Man) Myelocytes # (Manual) Macrocytosis PT INR APTT ABG pH ABG pCO2 ABG pO2 ABG HCO3 ABG Total CO2 ABG O2 Saturation Hemoglobin Sodium Potassium Chloride Carbon Dioxide BUN Creatinine Glucose POC Glucose (mg/dL) 188 H 210 H 244 H Hemoglobin A1c Plasma Lactic Acid Luis Calcium Ionized Calcium Joshua Magnesium Total Bilirubin AST ALT Alkaline Phosphatase Creatine Kinase Total Protein Total Protein (PEP) Albumin Vitamin D 25-Hydroxy Procalcitonin PTH Intact Cortisol Urine Protein Urine Glucose (UA) Urine Ketones Urine Blood Ur Leukocyte Esterase Urine RBC Urine WBC Amorphous Sediment Urine Bacteria Urine Mucus Urine Yeast (Budding) Fluid Appearance Synovial Crystals Crossmatch 10/19/24 10/19/24 10/20/24 20:03 23:42 04:15 WBC RBC Hgb Hct MCV MCH RDW Plt Count Neutrophils # Neutrophils # (Manual) Lymphocytes # Lymphocytes # (Manual) Metamyelocytes # (Man) Myelocytes # (Manual) Macrocytosis PT INR APTT ABG pH ABG pCO2 ABG pO2 ABG HCO3 ABG Total CO2 ABG O2 Saturation Hemoglobin Sodium Potassium Chloride 115 H Carbon Dioxide BUN 39 H Creatinine 1.51 H Glucose 186 H POC Glucose (mg/dL) 280 H 261 H Hemoglobin A1c Plasma Lactic Acid Luis Calcium 7.3 L Ionized Calcium Joshua Magnesium Total Bilirubin AST ALT Alkaline Phosphatase Creatine Kinase Total Protein Total Protein (PEP) Albumin Vitamin D 25-Hydroxy Procalcitonin PTH Intact Cortisol Urine Protein Urine Glucose (UA) Urine Ketones Urine Blood Ur Leukocyte Esterase Urine RBC Urine WBC Amorphous Sediment Urine Bacteria Urine Mucus Urine Yeast (Budding) Fluid Appearance Synovial Crystals Crossmatch 10/20/24 10/20/24 10/20/24 04:15 05:00 05:41 WBC RBC 1.88 L Hgb 6.7 L* Hct 21.4 L MCV 114.3 H MCH 35.9 H RDW Plt Count Neutrophils # Neutrophils # (Manual) Lymphocytes # Lymphocytes # (Manual) Metamyelocytes # (Man) Myelocytes # (Manual) Macrocytosis Marked A PT INR APTT 78.3 H ABG pH ABG pCO2 ABG pO2 153 H ABG HCO3 ABG Total CO2 26 H ABG O2 Saturation 100.0 H Hemoglobin 6.8 L* Sodium Potassium Chloride Carbon Dioxide BUN Creatinine Glucose POC Glucose (mg/dL) Hemoglobin A1c Plasma Lactic Acid Luis Calcium Ionized Calcium Joshua Magnesium Total Bilirubin AST ALT Alkaline Phosphatase Creatine Kinase Total Protein Total Protein (PEP) Albumin Vitamin D 25-Hydroxy Procalcitonin PTH Intact Cortisol Urine Protein Urine Glucose (UA) Urine Ketones Urine Blood Ur Leukocyte Esterase Urine RBC Urine WBC Amorphous Sediment Urine Bacteria Urine Mucus Urine Yeast (Budding) Fluid Appearance Synovial Crystals Crossmatch 10/20/24 10/20/24 10/20/24 05:57 06:25 09:06 WBC RBC Hgb Hct MCV MCH RDW Plt Count Neutrophils # Neutrophils # (Manual) Lymphocytes # Lymphocytes # (Manual) Metamyelocytes # (Man) Myelocytes # (Manual) Macrocytosis PT INR APTT ABG pH ABG pCO2 ABG pO2 ABG HCO3 ABG Total CO2 ABG O2 Saturation Hemoglobin Sodium Potassium Chloride Carbon Dioxide BUN Creatinine Glucose POC Glucose (mg/dL) 226 H 243 H Hemoglobin A1c Plasma Lactic Acid Luis Calcium Ionized Calcium Joshua Magnesium Total Bilirubin AST ALT Alkaline Phosphatase Creatine Kinase Total Protein Total Protein (PEP) Albumin Vitamin D 25-Hydroxy Procalcitonin PTH Intact Cortisol Urine Protein Urine Glucose (UA) Urine Ketones Urine Blood Ur Leukocyte Esterase Urine RBC Urine WBC Amorphous Sediment Urine Bacteria Urine Mucus Urine Yeast (Budding) Fluid Appearance Synovial Crystals Crossmatch See Detail 10/20/24 10/20/24 10/20/24 11:37 11:40 15:05 WBC RBC 2.15 L Hgb 7.4 L Hct 23.2 L MCV 108.2 H D MCH RDW 17.1 H Plt Count Neutrophils # Neutrophils # (Manual) Lymphocytes # Lymphocytes # (Manual) Metamyelocytes # (Man) Myelocytes # (Manual) Macrocytosis Marked A PT INR APTT ABG pH ABG pCO2 ABG pO2 ABG HCO3 ABG Total CO2 ABG O2 Saturation Hemoglobin Sodium Potassium Chloride Carbon Dioxide BUN Creatinine Glucose POC Glucose (mg/dL) 252 H Hemoglobin A1c Plasma Lactic Acid Luis Calcium Ionized Calcium Joshua Magnesium Total Bilirubin AST ALT Alkaline Phosphatase Creatine Kinase Total Protein Total Protein (PEP) Albumin Vitamin D 25-Hydroxy Procalcitonin PTH Intact Cortisol Urine Protein 1+ H Urine Glucose (UA) 2+ H Urine Ketones Urine Blood Small H Ur Leukocyte Esterase Urine RBC Urine WBC 6 H Amorphous Sediment Rare H Urine Bacteria Rare H Urine Mucus Rare H Urine Yeast (Budding) Fluid Appearance Synovial Crystals Crossmatch 10/20/24 10/20/24 10/21/24 17:39 23:40 04:55 WBC RBC Hgb Hct MCV MCH RDW Plt Count Neutrophils # Neutrophils # (Manual) Lymphocytes # Lymphocytes # (Manual) Metamyelocytes # (Man) Myelocytes # (Manual) Macrocytosis PT INR APTT ABG pH 7.47 H ABG pCO2 34 L ABG pO2 ABG HCO3 ABG Total CO2 26 H ABG O2 Saturation 98.6 H Hemoglobin 7.7 L Sodium Potassium Chloride Carbon Dioxide BUN Creatinine Glucose POC Glucose (mg/dL) 273 H 232 H Hemoglobin A1c Plasma Lactic Acid Luis Calcium Ionized Calcium Joshua Magnesium Total Bilirubin AST ALT Alkaline Phosphatase Creatine Kinase Total Protein Total Protein (PEP) Albumin Vitamin D 25-Hydroxy Procalcitonin PTH Intact Cortisol Urine Protein Urine Glucose (UA) Urine Ketones Urine Blood Ur Leukocyte Esterase Urine RBC Urine WBC Amorphous Sediment Urine Bacteria Urine Mucus Urine Yeast (Budding) Fluid Appearance Synovial Crystals Crossmatch 10/21/24 10/21/24 10/21/24 05:05 05:05 06:19 WBC RBC 2.22 L Hgb 7.8 L Hct 24.2 L MCV 108.7 H MCH 35.1 H RDW 16.6 H Plt Count Neutrophils # Neutrophils # (Manual) Lymphocytes # 0.5 L Lymphocytes # (Manual) Metamyelocytes # (Man) Myelocytes # (Manual) Macrocytosis Marked A PT INR APTT ABG pH ABG pCO2 ABG pO2 ABG HCO3 ABG Total CO2 ABG O2 Saturation Hemoglobin Sodium Potassium Chloride 113 H Carbon Dioxide BUN 42 H Creatinine 1.67 H Glucose 152 H POC Glucose (mg/dL) 186 H Hemoglobin A1c Plasma Lactic Acid Luis Calcium 7.8 L Ionized Calcium Joshua Magnesium Total Bilirubin AST ALT Alkaline Phosphatase 168 H Creatine Kinase Total Protein 5.6 L Total Protein (PEP) Albumin 2.0 L Vitamin D 25-Hydroxy Procalcitonin PTH Intact Cortisol Urine Protein Urine Glucose (UA) Urine Ketones Urine Blood Ur Leukocyte Esterase Urine RBC Urine WBC Amorphous Sediment Urine Bacteria Urine Mucus Urine Yeast (Budding) Fluid Appearance Synovial Crystals Crossmatch 10/21/24 10/21/24 10/21/24 12:15 18:15 20:00 WBC RBC Hgb Hct MCV MCH RDW Plt Count Neutrophils # Neutrophils # (Manual) Lymphocytes # Lymphocytes # (Manual) Metamyelocytes # (Man) Myelocytes # (Manual) Macrocytosis PT INR APTT ABG pH ABG pCO2 ABG pO2 ABG HCO3 ABG Total CO2 ABG O2 Saturation Hemoglobin Sodium Potassium Chloride Carbon Dioxide BUN Creatinine Glucose POC Glucose (mg/dL) 238 H 208 H 172 H Hemoglobin A1c Plasma Lactic Acid Luis Calcium Ionized Calcium Joshua Magnesium Total Bilirubin AST ALT Alkaline Phosphatase Creatine Kinase Total Protein Total Protein (PEP) Albumin Vitamin D 25-Hydroxy Procalcitonin PTH Intact Cortisol Urine Protein Urine Glucose (UA) Urine Ketones Urine Blood Ur Leukocyte Esterase Urine RBC Urine WBC Amorphous Sediment Urine Bacteria Urine Mucus Urine Yeast (Budding) Fluid Appearance Synovial Crystals Crossmatch 10/21/24 10/22/24 10/22/24 23:20 05:15 05:40 WBC RBC 2.31 L Hgb 7.9 L Hct 24.8 L MCV 107.2 H MCH RDW 16.0 H Plt Count Neutrophils # Neutrophils # (Manual) Lymphocytes # Lymphocytes # (Manual) Metamyelocytes # (Man) Myelocytes # (Manual) Macrocytosis Marked A PT INR APTT ABG pH 7.50 H ABG pCO2 34 L ABG pO2 ABG HCO3 27 H ABG Total CO2 28 H ABG O2 Saturation 98.5 H Hemoglobin 7.7 L Sodium Potassium Chloride Carbon Dioxide BUN Creatinine Glucose POC Glucose (mg/dL) 139 H Hemoglobin A1c Plasma Lactic Acid Luis Calcium Ionized Calcium Joshua Magnesium Total Bilirubin AST ALT Alkaline Phosphatase Creatine Kinase Total Protein Total Protein (PEP) Albumin Vitamin D 25-Hydroxy Procalcitonin PTH Intact Cortisol Urine Protein Urine Glucose (UA) Urine Ketones Urine Blood Ur Leukocyte Esterase Urine RBC Urine WBC Amorphous Sediment Urine Bacteria Urine Mucus Urine Yeast (Budding) Fluid Appearance Synovial Crystals Crossmatch 10/22/24 10/22/24 10/22/24 05:40 12:06 18:01 WBC RBC Hgb Hct MCV MCH RDW Plt Count Neutrophils # Neutrophils # (Manual) Lymphocytes # Lymphocytes # (Manual) Metamyelocytes # (Man) Myelocytes # (Manual) Macrocytosis PT INR APTT ABG pH ABG pCO2 ABG pO2 ABG HCO3 ABG Total CO2 ABG O2 Saturation Hemoglobin Sodium Potassium Chloride 111 H Carbon Dioxide BUN 43 H Creatinine 1.85 H Glucose POC Glucose (mg/dL) 197 H 308 H Hemoglobin A1c Plasma Lactic Acid Luis Calcium 8.1 L Ionized Calcium Joshua Magnesium Total Bilirubin AST ALT Alkaline Phosphatase Creatine Kinase Total Protein Total Protein (PEP) Albumin Vitamin D 25-Hydroxy Procalcitonin PTH Intact Cortisol Urine Protein Urine Glucose (UA) Urine Ketones Urine Blood Ur Leukocyte Esterase Urine RBC Urine WBC Amorphous Sediment Urine Bacteria Urine Mucus Urine Yeast (Budding) Fluid Appearance Synovial Crystals Crossmatch 10/23/24 10/23/24 10/23/24 00:48 05:04 05:04 WBC RBC 2.37 L Hgb 8.2 L Hct 25.2 L MCV 106.3 H MCH RDW Plt Count Neutrophils # Neutrophils # (Manual) Lymphocytes # 0.9 L Lymphocytes # (Manual) Metamyelocytes # (Man) Myelocytes # (Manual) Macrocytosis PT INR APTT ABG pH ABG pCO2 ABG pO2 ABG HCO3 ABG Total CO2 ABG O2 Saturation Hemoglobin Sodium Potassium 3.4 L Chloride 109 H Carbon Dioxide BUN 46 H Creatinine 2.19 H Glucose POC Glucose (mg/dL) 181 H Hemoglobin A1c Plasma Lactic Acid Luis Calcium 8.3 L Ionized Calcium Joshua Magnesium Total Bilirubin AST ALT Alkaline Phosphatase Creatine Kinase Total Protein Total Protein (PEP) Albumin Vitamin D 25-Hydroxy Procalcitonin PTH Intact Cortisol Urine Protein Urine Glucose (UA) Urine Ketones Urine Blood Ur Leukocyte Esterase Urine RBC Urine WBC Amorphous Sediment Urine Bacteria Urine Mucus Urine Yeast (Budding) Fluid Appearance Synovial Crystals Crossmatch 10/23/24 10/23/24 10/24/24 11:43 12:45 01:17 WBC RBC Hgb Hct MCV MCH RDW Plt Count Neutrophils # Neutrophils # (Manual) Lymphocytes # Lymphocytes # (Manual) Metamyelocytes # (Man) Myelocytes # (Manual) Macrocytosis PT INR APTT ABG pH ABG pCO2 ABG pO2 ABG HCO3 ABG Total CO2 ABG O2 Saturation Hemoglobin Sodium Potassium Chloride Carbon Dioxide BUN Creatinine Glucose POC Glucose (mg/dL) 55 L 209 H Hemoglobin A1c Plasma Lactic Acid Luis Calcium Ionized Calcium Joshua Magnesium Total Bilirubin AST ALT Alkaline Phosphatase Creatine Kinase Total Protein Total Protein (PEP) Albumin Vitamin D 25-Hydroxy Procalcitonin PTH Intact Cortisol Urine Protein 2+ H Urine Glucose (UA) Urine Ketones Urine Blood Small H Ur Leukocyte Esterase Urine RBC 8 H Urine WBC 7 H Amorphous Sediment Rare H Urine Bacteria Rare H Urine Mucus Rare H Urine Yeast (Budding) Many H Fluid Appearance Synovial Crystals Crossmatch 10/24/24 10/24/24 10/24/24 02:34 02:34 02:34 WBC RBC 2.16 L Hgb 7.6 L Hct 23.4 L MCV 108.6 H MCH 35.1 H RDW 15.7 H Plt Count Neutrophils # Neutrophils # (Manual) Lymphocytes # Lymphocytes # (Manual) Metamyelocytes # (Man) Myelocytes # (Manual) Macrocytosis Marked A PT INR APTT ABG pH ABG pCO2 ABG pO2 ABG HCO3 ABG Total CO2 ABG O2 Saturation Hemoglobin Sodium Potassium Chloride 113 H Carbon Dioxide BUN 46 H Creatinine 2.12 H Glucose 146 H POC Glucose (mg/dL) Hemoglobin A1c Plasma Lactic Acid Luis Calcium 8.3 L Ionized Calcium Joshua Magnesium Total Bilirubin AST ALT Alkaline Phosphatase Creatine Kinase Total Protein Total Protein (PEP) 5.7 L Albumin Vitamin D 25-Hydroxy Procalcitonin PTH Intact Cortisol Urine Protein Urine Glucose (UA) Urine Ketones Urine Blood Ur Leukocyte Esterase Urine RBC Urine WBC Amorphous Sediment Urine Bacteria Urine Mucus Urine Yeast (Budding) Fluid Appearance Synovial Crystals Crossmatch 10/24/24 10/24/24 10/24/24 09:18 11:12 16:15 WBC RBC Hgb Hct MCV MCH RDW Plt Count Neutrophils # Neutrophils # (Manual) Lymphocytes # Lymphocytes # (Manual) Metamyelocytes # (Man) Myelocytes # (Manual) Macrocytosis PT INR APTT ABG pH ABG pCO2 ABG pO2 ABG HCO3 ABG Total CO2 ABG O2 Saturation Hemoglobin Sodium Potassium Chloride Carbon Dioxide BUN Creatinine Glucose POC Glucose (mg/dL) 152 H 137 H 36 L* Hemoglobin A1c Plasma Lactic Acid Luis Calcium Ionized Calcium Joshua Magnesium Total Bilirubin AST ALT Alkaline Phosphatase Creatine Kinase Total Protein Total Protein (PEP) Albumin Vitamin D 25-Hydroxy Procalcitonin PTH Intact Cortisol Urine Protein Urine Glucose (UA) Urine Ketones Urine Blood Ur Leukocyte Esterase Urine RBC Urine WBC Amorphous Sediment Urine Bacteria Urine Mucus Urine Yeast (Budding) Fluid Appearance Synovial Crystals Crossmatch 10/24/24 10/24/24 10/24/24 16:16 16:21 16:37 WBC RBC Hgb Hct MCV MCH RDW Plt Count Neutrophils # Neutrophils # (Manual) Lymphocytes # Lymphocytes # (Manual) Metamyelocytes # (Man) Myelocytes # (Manual) Macrocytosis PT INR APTT ABG pH ABG pCO2 ABG pO2 ABG HCO3 ABG Total CO2 ABG O2 Saturation Hemoglobin Sodium Potassium Chloride Carbon Dioxide BUN Creatinine Glucose POC Glucose (mg/dL) 38 L* 39 L* 111 H Hemoglobin A1c Plasma Lactic Acid Luis Calcium Ionized Calcium Joshua Magnesium Total Bilirubin AST ALT Alkaline Phosphatase Creatine Kinase Total Protein Total Protein (PEP) Albumin Vitamin D 25-Hydroxy Procalcitonin PTH Intact Cortisol Urine Protein Urine Glucose (UA) Urine Ketones Urine Blood Ur Leukocyte Esterase Urine RBC Urine WBC Amorphous Sediment Urine Bacteria Urine Mucus Urine Yeast (Budding) Fluid Appearance Synovial Crystals Crossmatch Assessment and Plan Assessment: This is a 64-year-old gentleman with significant alcohol use who presented emergency department on 10/06/2024 since the patient was found facedown on the ground with confusion to his forehead abrasion to his knees and left toes. He is found to be an septic shock with septic arthritis as well as had left lower lobe pneumonia. He was intubated on a ventilator. He also has acute kidney injury. He had right pleural effusion requiring thoracentesis. He has episode of hypoglycemia today in the 30s. Altered mental status seems due to metabolic encephalopathy as well as septic encephalopathy. Today he is having episode of hypoglycemia in the 30s and continues to have acute kidney injury. Repeat CT of the head is unremarkable for any acute or subacute stroke Septic shock Septic arthritis of the right knee requiring surgery and the cultures were positive for strep a and he is on IV antibiotic Acute kidney injury Acute left lower lobe pneumonia Rhabdomyolysis likely due to fall/on the ground--- resolved Episodes of hypoglycemia as low as 30s today Right sided pleural effusion requiring thoracentesis Chronic right knee pain status post arthroscopy and lavage department of the right knee with partial medial meniscectomy and medial femoral condyle and medial tibial plateau chondroplasty History of coronary artery disease status post stent History of proximal atrial fibrillation on amiodarone and heparin drip Type 1 diabetes Dyslipidemia History of MD Chronic back pain Chronic alcohol abuse Plan: I ordered routine EEG and pending to be read I ordered vitamin B12 and folate level Started the patient on thiamine 100 mg daily. Please avoid hypoglycemic events. ID is on board Will defer the rest of the medical management to primary and other specialist The plan discussed with the patient's who is at bedside as well as the ICU nurse Thank you for the consultation Time with Patient: Greater than 30
[2024-10-24] MEDS: THIAMINE 100 MG TAB PO SCH (17:27)
[2024-10-24] MEDS: POTASSIUM CHLORIDE ER 20 MEQ TAB.ER PO STA (17:51)
--- NOTE | 2024-10-24 18:17 | P.PN ---
Subjective Progress Note Date: 10/24/24 64-year-old male who is being seen in the ICU due to hypovolemic shock and rhabdomyolysis. He is a poor historian due to altered mental status and unresponsiveness. All history is obtained from the chart. He initially presented to the emergency department after being found facedown on the ground with a contusion to his forehead and abrasions to his knee and left toes. She stated that he had been having nausea and vomiting for a day prior to being found down. He was noted to have diarrhea as well. Patient is a daily drinker and consumes about a fifth per day according to the notes he has not drank for the 2 days prior to this admission. He also has a history of type 1 diabetes mellitus. Initial EKG showed sinus tachycardia. Head/cervical spine CT showed no acute intracranial process and no acute fracture or traumatic subluxation of the cervical spine. Initial chest x-ray showed right middle lobe scarring/atelectasis, no acute pulmonary process. He had received 4 L of normal saline. Initial labs showed CK level of 18,113, WBCs 10.7, hemoglobin 12.5, sodium 126, creatinine 3.18 lactic acid 6.9, AST 401, ALT 65. Preliminary blood culture showed gram-positive cocci and patient was started on vancomycin. 24-hour interval change 10/12/2024 -- Patient is evaluated in the ICU. He remains intubated on mechanical ventilation - ABG shows pH 7.42, pCO2 38, pO2 74. - He is maintained on vasopressin 0.02 units/min, normal saline at 20 cc/h, IV hydrocortisone 50 mg every 6 hours, and Kefzol day 5. Labs are reviewed WBCs 17.4, hemoglobin 8.2, hematocrit 25.2, platelets 53, sodium 142, potassium 3.7, chloride 116, CO2 23, BUN 39, creatinine 1.18, gluco se 258. Ionized calcium 4.4. Magnesium 1.8. Today's chest x-ray is unchanged. Wound culture gram stain of the right knee preliminary report shows rare gram positive cocci. 10/13/2024 Patient is seen and evaluated in ICU at bedside; remains on the mechanical ventilator. Discussed with nursing staff. Concerns about elevated blood sugars; patient was placed on home dose of Lantus which did not help much - Blood gases show pO2 72, pCO2 41, and pH is 7.42. - The patient is on propofol at 35 mcg/kg/min, saline at 20 cc an hour, and vital high-protein at 60, with goal of 70. Yesterday, he had a brief spontaneous breathing trial, and he did poorly. Today he will again have a spontaneous breathing trial, of pressure support of 5 and CPAP of 5. He continues on Ancef. White count 18.8, hemoglobin 8.2, hematocrit 25.8, platelet count 78,000. Sodium 144, potassium 4.1, chlorides 117, CO2 26, BUN 47, creatinine 1.18. Glucose is 340. Albumin is 2.1. Previous blood cultures from October 06 show group A streptococci. Chest x-ray shows bibasilar infiltrates. -- For hyperglycemia I will increase dose of Lantus and add insulin lispro every 4 hours; continue with current sliding scale 10/14/2024 Patient is seen in follow-up today continues on Precedex and attempting to wean maintained on mechanical ventilation with an FiO2 of 50% PEEP is 5. Per nursing staff attempting sedation holiday although did not go well yesterday. Patient is maintained on antibiotics with infectious disease following and patient is status post right knee aspiration with preliminary culture showing strep a with positive blood cultures. Patient continues with significant swelling especially the scrotal area maintained on IV Lasix and will continue. No discussion of PEG and trach as of yet and patient remains full code. Prognosis is guarded. 10/15/2024 Patient is seen this morning continues to be in the ICU currently working on weaning FiO2 and undergoing sedation holiday. Patient is eye tracking and following commands and per pulmonary core drill operator working on extubation today. Will await official report and monitor closely. Patient is continued on antibiotics with infectious disease following. 10/16/2024 Patient is seen in follow-up this morning extubated successfully currently maintained on 6 L high flow nasal cannula. Patient is awake and responding appropriately to questions and commands. Patient is extremely lethargic at times and significantly weak with significant edema noted. Sodium is elevated at 150 and is continued on D5 and water. Blood sugars have been elevated and will adjust insulins accordingly. Patient swallow eval performed and failed awaiting reevaluation with speech. Continue n.p.o. for now. White count remains elevated patient is maintained on antibiotics with infectious disease following. Awaiting repeat cultures. Procalcitonin 1.06. Questions and concerns were answered to the best of my ability with son at the bedside. 10/17/2024 Patient is evaluated today in follow up in the ICU. He was extubated yesterday. Continues on oxygen support on 100% BiPAP at this time. Cultures from the right knee arthroscopy reveals Strep A. Chest xray today reveals no change to the bibasilar opacities. Chest ultrasound reveals right pleural effusion pocket size 6.0 cm and left pleural effusion pocket size of 4.9 cm. Both sides marked for possible thoracentesis. Labs today reveal white blood cell count of 11.8, hgb 7. 5, sodium 146, potassium 3.4, BUN 43, creatinine 1.06. Blood glucose 200s. Continues on IV amiodarone, IV cefepime, IV vancomycin. Patient is in normal sinus rhythm currently heart rate in the 80s. 10/18/2024 Patient evaluated today in follow up in the ICU. He is awake alert oriented continues on BiPAP. He is status post right sided thoracentesis with 400 mL off. Chest xray today reveals stable bilateral lower lobe infiltrate and small pleural effusion. White blood cell count today 10.4. Continues on IV vancomycin and IV cefepime. Remains on IV amiodarone. on IV heparin. Patient remains NPO at this time, speech therapy to follow up today to reassess. 10/19/2024 Patient remains in the ICU. He is on the mechanical ventilator, FiO2 of 50%. Chest x-ray today shows left lower lobe pneumonia and/or atelectasis and pleural effusion. Elian in the left lung base is obscuring the left heart border and the hemidiaphragm has decreased in the interval. White blood cell count today is 8.4, hemoglobin 7.1, sodium 144, BUN of 40, creatinine of 1.43. His viral panel is negative for all viruses checked. 10/20/2024 Patient remains the intensive care unit he is currently on mechanical ventilator with an FiO2 of 50%. He is awake and alert and responding to commands. His chest x-ray reveals continued acute coronary cardiopulmonary disease involving the retrocardiac region with no significant interval change. Repeat sputum reveals Enterobacter he continues on IV cefepime at this time. Hemoglobin level today is 6.7 he will receive 1 unit of packed red blood cells. His creatinine is up to 1.51 today. Continues on oral amiodarone for the atrial fibrillation was taken off of anticoagulation secondary to the decreased hemoglobin. Patient is sedated with propofol at this time. He is also receiving IV Lasix daily prognosis remains guarded. 10/21/2024 Patient remains in the intensive care unit. Remains on the mechanical ventilator. He is currently sedated with propofol. He is alert and following commands. Chest xray unchanged continues to show pneumonia with sputum culture showing enterobacter. He remains on IV cefepime. Hemoglobin better today at 7.8. BUN 42 creatinine 1.67. 10/22/2024 Patient is evaluated today in the intensive care unit. Patient was extubated today. He is awake alert and oriented. He is complaining of some back pain. Has IV dilaudid on board. Chest xray today reveals no evidence of pleural effusion, focal consolidation, or pneumothorax. He remains edematous. Creatinine 1.87 today. On IV lasix which has been increased to BID by nephrology. 3L of urine output in the last 24 hours. 10/23/2024 Patient evaluated today in follow up in the ICU. Currently on 2L of oxygen via nasal cannula with saturations of 99%. Remains on IV cefepime. Chest xray today reveals left lung airspace opacity. Creatinine up to 2.1 today IV lasix has been discontinued. Patient has been placed on normal saline at 75 mls/hr. Speech therapy re consulted for swallow evaluation post extubation. 10/24/2024 Patient evaluated today in follow up remains in the ICU. Patient underwent neuro evaluation today. Brain CT was done revealing no acute bleed or mass effect. Mild age-appropriate senescent changes. Marked calcification of basal artery and significant stenosis cannot be excluded. Mild to moderate fluid in the mastoid air cells bilaterally. BUN 46 creatinine 2.12. Continues on normal saline at 75 mls/hr. Continues on IV cefepime. Review of systems: Constitutional: No reports of fatigue, fever, or chills Cardiovascular: No reports of chest pain or palpitations Respiratory: reports of shortness of breath with a weak cough GI: No reports of nausea, vomiting, or diarrhea, : No reports of dysuria or retention Neurovascular: reports of generalized weakness and significant swelling of upper and lower extremities reports back pain. All medications have been reviewed Physical exam: Gen: This is a 64-year-old male extubated today 10/22/24 and currently on nasal cannula., well-developed, elderly appearing, ill-appearing, appears older than stated age HEENT: Head is atraumatic, normocephalic. Pupils equal, round. Sclerae is anicteric. NECK: Supple. No JVD. No lymphadenopathy. No thyromegaly. LUNGS: Diminished breath sounds bilaterally with some bronchial congestion and coarse scattered rhonchi. No intercostal retractions. HEART: S1, S2 are muffled ABDOMEN: Soft. Somewhat taut, positive bowel sounds are present. No masses. No tenderness. Significant scrotal edema noted, minimally improved EXTREMITIES: Bilateral upper and lower extremity edema noted. No calf tenderness. Generalized upper and lower extremity edema along with scrotal swelling noted NEUROLOGICAL: Patient is awake, alert and oriented x 2-3, diffusely weak Assessment: -Chronic alcohol abuse with acute alcohol withdrawal syndrome; Thiamine and protonix. No longer going through acute withdrawals. -Altered mental status acute metabolic and septic encephalopathy. Brain CT reveals no acte stroke. -Acute hypoxic respiratory failure was intubated following knee surgery on 10/10 and successfully extubated on 10/15/24. re-intubated on 10/18/2024 and now extubated on 10/22/24. Status post bronchoscopy on 10/18. -Congestive heart failure with an EF of 45%, diastolic dysfunction -Paroxysmal atrial fibrillation transitioned to oral amiodarone Continues on IV heparin -Right sided pleural effusion status post right sided thoracentesis with 400 mL off. -Rhabdomyolysis secondary to immobility due to fall. Improving with IV hydration. We will continue to monitor strict STERLING's, daily weights, renal function electrolytes -Acute kidney injury secondary to ATN due to to septic shock and rhabdomyolysis. Was initially improving and now with worsening renal function while on hemodialysis. -Relative adrenal insufficiency. On IV hydrocortisone. -Transaminitis. Improving. -Streptococcus group A bacteremia. Currently on cefazolin per ID recommendation ; continue to monitor CBC, CRP and procalcitonin. Possibly secondary to right knee infection -Right knee pain with swelling, status post aspiration along with arthroscopic lavage, culture showing strep a with septic arthritis -Hyponatremia, likely hypovolemic; resolved. -Now hypernatremic likely from free water deficit and continues on D5 water. -Type 1 diabetes mellitus; we will continue to monitor Accu-Cheks before every meal and at bedtime with insulin sliding scale. -History of coronary artery disease with previous catheterization and stent placement. -Hypertension; currently not on any antihypertensive medication. -Sepsis, present on admission possibly secondary to right knee arthritis with bacteremia GI prophylaxis DVT prophylaxis Full code Plan: Patient continues in the ICU with multiple consultations following maintained on IV antibiotics status post arthroscopy with lavage of the right knee and final cultures showing Strep A. Repeat blood cultures thus far are negative and will continue on IV antibiotics with ID following He is now s/p right sided thoracentesis with 400 mL of fluid off. Sent for cytology. Sputum culture showinsputum cultures are showing Enterobacter patient is status post bronchoscopy sputum cultures are now negative continues on IV cefepime Speech therapy has been reconsulted post extubation. Blood sugars variable initially uncontrolled so levemir was increased. Now with episode of hypoglycemia and levemir decreased to 7 units BID and continue sliding scale accuchecks ACHS. Discussion was had with family at the bedside as well as patient and will likely need rehab on discharge. Follow-up on repeat labs and monitor kidney functions and electrolytes closely. Due to the worsening renal function, lasix has been discontinued and patient has been started on normal saline at 75 mls./hr. Was extubated today he is awake alert and oriented at this time. Physical therapy and occupational therapy have been re-consulted. Overall prognosis remains guarded at this time The impression and plan of care has been dictated by Sharlene Pendleton, Nurse Practitioner as directed. Dr. Randall MD I have performed a history and physical examination and medical decision making of this patient, discussed the same with the dictator, and agree with the dictators assessment and plan as written, documented as a scribe. Based on total visit time, I have performed more than 50% of this visit. Objective - Vital Signs Vital signs: Vital Signs Temp 98.4 F 10/24/24 16:00 Pulse 84 10/24/24 17:00 Resp 26 H 10/24/24 17:00 BP 100/59 10/24/24 17:00 Pulse Ox 99 10/24/24 17:00 FiO2 40 10/22/24 09:56 Intake & Output 10/23/24 10/24/24 10/24/24 18:59 06:59 18:59 Intake Total 917 1185 275 Output Total 960 790 620 Balance -43 395 -345 Weight 88.7 kg 88.7 kg Intake: IV 77 885 275 0.9 Normal Saline 65 60 10 Normal Saline Pressure 12 Bag Potassium Chloride 20 meq 40 In Water For Injection 1 100ml.bag @ 50 mls/hr IVPB Q2H [facility] Rx#: [id number] Sodium Chloride 0.9% 1, 825 225 000 ml @ 75 mls/hr IV . [id number] [facility] Rx#:[id number] Intake, IV Titration 600 300 Amount Sodium Chloride 0.9% 1, 600 300 000 ml @ 75 mls/hr IV . [id number] [facility] Rx#:[id number] Tube Feeding 240 Output: Urine 960 790 620 Other: Voiding Method Indwelling Catheter Indwelling Catheter Indwelling Catheter # Bowel Movements 1 ABP, PAP, CO, CI - Last Documented Arterial Blood Pressure 128/42 - Labs CBC & Chem 7: 10/24/24 02:34 10/24/24 16:55 Labs: Abnormal Lab Results - Last 24 Hours (Table) 10/24/24 10/24/24 10/24/24 Range/Units 01:17 02:34 02:34 RBC 2.16 L (4.30-5.90) m/uL Hgb 7.6 L (13.0-17.5) gm/dL Hct 23.4 L (39.0-53.0) % MCV 108.6 H (80.0-100.0) fL MCH 35.1 H (25.0-35.0) pg RDW 15.7 H (11.5-15.5) % Macrocytosis Marked A Chloride (98-107) mmol/L BUN (9-20) mg/dL Creatinine (0.66-1.25) mg/dL Glucose (74-99) mg/dL POC Glucose (mg/dL) 209 H (70-110) mg/dL Calcium (8.4-10.2) mg/dL Total Protein (PEP) 5.7 L (6.2-8.2) g/dL 10/24/24 10/24/24 10/24/24 Range/Units 02:34 09:18 11:12 RBC (4.30-5.90) m/uL Hgb (13.0-17.5) gm/dL Hct (39.0-53.0) % MCV (80.0-100.0) fL MCH (25.0-35.0) pg RDW (11.5-15.5) % Macrocytosis Chloride 113 H (98-107) mmol/L BUN 46 H (9-20) mg/dL Creatinine 2.12 H (0.66-1.25) mg/dL Glucose 146 H (74-99) mg/dL POC Glucose (mg/dL) 152 H 137 H (70-110) mg/dL Calcium 8.3 L (8.4-10.2) mg/dL Total Protein (PEP) (6.2-8.2) g/dL 10/24/24 10/24/24 10/24/24 Range/Units 16:15 16:16 16:21 RBC (4.30-5.90) m/uL Hgb (13.0-17.5) gm/dL Hct (39.0-53.0) % MCV (80.0-100.0) fL MCH (25.0-35.0) pg RDW (11.5-15.5) % Macrocytosis Chloride (98-107) mmol/L BUN (9-20) mg/dL Creatinine (0.66-1.25) mg/dL Glucose (74-99) mg/dL POC Glucose (mg/dL) 36 L* 38 L* 39 L* (70-110) mg/dL Calcium (8.4-10.2) mg/dL Total Protein (PEP) (6.2-8.2) g/dL 10/24/24 Range/Units 16:37 RBC (4.30-5.90) m/uL Hgb (13.0-17.5) gm/dL Hct (39.0-53.0) % MCV (80.0-100.0) fL MCH (25.0-35.0) pg RDW (11.5-15.5) % Macrocytosis Chloride (98-107) mmol/L BUN (9-20) mg/dL Creatinine (0.66-1.25) mg/dL Glucose (74-99) mg/dL POC Glucose (mg/dL) 111 H (70-110) mg/dL Calcium (8.4-10.2) mg/dL Total Protein (PEP) (6.2-8.2) g/dL Assessment and Plan Time with Patient: Less than 30
[2024-10-24 19:59] LABS: Glucose,Whole Blood 96 mg/dL (70-110)
[2024-10-24] MEDS: INSULIN DETEMIR (LEVEMIR) 100 UNIT/ML SYR SQ SCH (20:09)
--- NOTE | 2024-10-24 21:58 | PN ---
PROGRESS NOTE SUBJECTIVE: Forest is a 64-year-old gentleman with history of CAD, paroxysmal atrial fibrillation, and encephalopathy, remains confused, stable hemodynamically, and no other issues at this time. MEDICATIONS: The patient is on, 1. Amiodarone 200 b.i.d. 2. Lipitor 40 daily. 3. Insulin. 4. Lopressor 12.5 b.i.d. 5. Ativan. 6. Protonix. OBJECTIVE: GENERAL: Comfortable at rest. VITAL SIGNS: Heart rate is 96 beats per minute, blood pressure is 112/78, respiratory rate is 18, O2 saturation is 97%. CHEST: Reveals good air entry bilaterally. HEART: Reveals first and second heart sounds. No gallop. Has a systolic murmur at the apex. ABDOMEN: Soft. EXTREMITIES: Did not reveal any edema. Peripheral pulses are felt. LABORATORY DATA: Labs show a hemoglobin of 7.6, potassium is 3.5, BUN is 46, creatinine is 2.1. ASSESSMENT: 1. Coronary artery disease, status post angioplasty. 2. Paroxysmal atrial fibrillation. 3. Encephalopathy. PLAN: I will continue his current medications. MMODL / IJN: [id number] /
[2024-10-25 00:42] LABS: Glucose,Whole Blood 187 mg/dL (70-110)
[2024-10-25] MEDS: HYDROcodone/APAP 5-325MG 1 EACH TAB PO PRN (01:08)
[2024-10-25 03:23] LABS: Basophils % (A) 0 %; Eosinophils % (A) 0 %; HCT 24.7 % (39.0-53.0); HGB 7.7 gm/dL (13.0-17.5); Hypochromasia Slight; Lymphocytes # (A) 1.1 k/uL (1.0-4.8); Lymphocytes % (A) 21 %; MCH 33.6 pg (25.0-35.0); MCHC 31.1 g/dL (31.0-37.0); Macrocytosis Marked; Monocytes # (A) 0.3 k/uL (0-1.0); Monocytes % (A) 6 %; Neutrophils # (A) 3.7 k/uL (1.3-7.7); Neutrophils % (A) 68 %; Platelet Count 288 k/uL (150-450); RBC 2.29 m/uL (4.30-5.90); RDW 15.6 % (11.5-15.5); WBC 5.4 k/uL (3.8-10.6)
[2024-10-25 03:43] LABS: African American GFR (CKD) 34 (>60 ml/min/1.73 sqM); Anion Gap 1 mmol/L; Blood Urea Nitrogen 47 mg/dL (9-20); Calcium 8.7 mg/dL (8.4-10.2); Carbon Dioxide 26 mmol/L (22-30); Chloride 115 mmol/L (98-107); Glucose 92 mg/dL (74-99); Magnesium 1.3 mg/dL (1.6-2.3); Non-African American GFR(CKD) 29 (>60 ml/min/1.73 sqM); Potassium 3.7 mmol/L (3.5-5.1); Sodium 142 mmol/L (137-145)
[2024-10-25] MEDS ORDERED: Potassium Replacement Protocol 1 EACH MISC MISCELLANE PRN (03:48)
[2024-10-25] MEDS ORDERED: Magnesium Replacement Protocol 1 EACH MISC MISCELLANE PRN (04:00)
[2024-10-25] MEDS: POTASSIUM CHLORIDE 10 MEQ in WATER FOR INJECTION 1 100ML.BAG IVPB SCH (04:07)
[2024-10-25] MEDS: MAGNESIUM SULFATE-D5W PMX 1 GM in DEXTROSE/WATER 1 100ML.BAG IVPB SCH (04:10)
--- NOTE | 2024-10-25 04:16 | EEG ---
ELECTROENCEPHALOGRAM REPORT CLINICAL HISTORY: This is a 64-year-old gentleman with altered mental status. The video EEG is obtained to evaluate for seizure epileptiform activity. RELEVANT MEDICATION: Ativan p.r.n. as well as Haldol p.r.n. EEG TYPE: This is a routine 21-channel EEG with video using the 10/20 electrode placement system. DESCRIPTION: Wakefulness is obtained. During awake state, the background consists of low-to- moderate voltage of 4 to 5 hertz activity alternating with diffuse nonrhythmic delta activity. There is no physiological stage 2 sleep architecture. There is anterior to posterior lag with triphasic morphology. Interictal and ictal is none. ACTIVATION PROCEDURE: Photic stimulation and hyperventilation are not performed. CLINICAL INTERPRETATION: This is an abnormal routine EEG. The background slowing is suggestive of moderate to severe encephalopathy, likely due to toxic metabolic derangement. Also, the triphasic waves are likely due to toxic metabolic derangements. Otherwise, there is no focal slowing, epileptiform discharge, or seizure on the EEG. Clinical correlation is recommended. ELDON / TRUE: [id number] / MTDD
--- NOTE | 2024-10-25 08:13 | XR ---
EXAMINATION TYPE: XR chest 1V portable DATE OF EXAM: 10/25/2024 5:27 AM COMPARISON: Chest radiograph from one day prior. CLINICAL INDICATION: Male, 64 years old with history of follow up; PHH shortness of breath TECHNIQUE: XR chest 1V portable Frontal view of the chest. FINDINGS: Lungs/Pleura: Slightly worsened airspace opacities in the left. No evidence of pneumothorax or large pleural effusion. Pulmonary vascularity: Unremarkable. Heart/mediastinum: Cardiomediastinal silhouette is unremarkable. Musculoskeletal: No acute osseous pathology. There is fixation hardware in the lower cervical spine. IMPRESSION: Stable left sided airspace opacities. [facility], , 10/25/2024 8:10 AM
[2024-10-25] MEDS: FUROSEMIDE 10 MG/ML 2 ML VIAL IV ONE (10:17)
--- NOTE | 2024-10-25 10:29 | P.PN ---
Subjective Patient is seen in follow-up for acute kidney injury. Renal function fairly stable. Nonoliguric. Extubated October 22, 2024. No improvement in mentation. Vital signs are stable. General: No acute distress. HEENT: Intubated. LUNGS: Scattered rhonchi. HEART: Rate and Rhythm are regular. ABDOMEN: No distention. EXTREMITITES: 1+ edema. Scrotal edema noted. Objective - Vital Signs Vital signs: Vital Signs Temp 99.5 F 10/25/24 08:00 Pulse 85 10/25/24 10:00 Resp 24 10/25/24 10:00 BP 101/59 10/25/24 10:00 Pulse Ox 95 10/25/24 10:00 FiO2 40 10/22/24 09:56 Intake & Output 10/24/24 10/25/24 10/25/24 18:59 06:59 18:59 Intake Total 290 60 115 Output Total 655 745 265 Balance -365 -685 -150 Weight 88.7 kg 89.3 kg Intake: IV 290 60 115 0.9 Normal Saline 25 60 15 Cefepime 2 gm In Sodium 100 Chloride 0.9% 100 ml @ 25 mls/hr IVPB Q12HR [facility] Rx #:[id number] Potassium Chloride 20 meq 40 In Water For Injection 1 100ml.bag @ 50 mls/hr IVPB Q2H [facility] Rx#: [id number] Sodium Chloride 0.9% 1, 225 000 ml @ 75 mls/hr IV . [id number] [facility] Rx#:[id number] Output: Urine 655 745 265 Other: Voiding Method Indwelling Catheter Indwelling Catheter # Bowel Movements 1 ABP, PAP, CO, CI - Last Documented Arterial Blood Pressure 128/42 - Labs CBC & Chem 7: 10/25/24 03:10 10/25/24 03:10 Labs: Abnormal Lab Results - Last 24 Hours (Table) 10/24/24 10/24/24 10/24/24 Range/Units 02:34 11:12 16:15 RBC (4.30-5.90) m/uL Hgb (13.0-17.5) gm/dL Hct (39.0-53.0) % MCV (80.0-100.0) fL RDW (11.5-15.5) % Macrocytosis Chloride (98-107) mmol/L BUN (9-20) mg/dL Creatinine (0.66-1.25) mg/dL POC Glucose (mg/dL) 137 H 36 L* (70-110) mg/dL Magnesium (1.6-2.3) mg/dL Total Protein (PEP) 5.7 L (6.2-8.2) g/dL Vitamin B12 (200.0-944.0) pg/mL 10/24/24 10/24/24 10/24/24 Range/Units 16:16 16:21 16:37 RBC (4.30-5.90) m/uL Hgb (13.0-17.5) gm/dL Hct (39.0-53.0) % MCV (80.0-100.0) fL RDW (11.5-15.5) % Macrocytosis Chloride (98-107) mmol/L BUN (9-20) mg/dL Creatinine (0.66-1.25) mg/dL POC Glucose (mg/dL) 38 L* 39 L* 111 H (70-110) mg/dL Magnesium (1.6-2.3) mg/dL Total Protein (PEP) (6.2-8.2) g/dL Vitamin B12 (200.0-944.0) pg/mL 10/24/24 10/25/24 10/25/24 Range/Units 16:55 00:40 03:10 RBC 2.29 L (4.30-5.90) m/uL Hgb 7.7 L (13.0-17.5) gm/dL Hct 24.7 L (39.0-53.0) % MCV 108.0 H (80.0-100.0) fL RDW 15.6 H (11.5-15.5) % Macrocytosis Marked A Chloride (98-107) mmol/L BUN (9-20) mg/dL Creatinine (0.66-1.25) mg/dL POC Glucose (mg/dL) 187 H (70-110) mg/dL Magnesium (1.6-2.3) mg/dL Total Protein (PEP) (6.2-8.2) g/dL Vitamin B12 2485.0 H (200.0-944.0) pg/mL 12/06/24 Range/Units 03:10 RBC (4.30-5.90) m/uL Hgb (13.0-17.5) gm/dL Hct (39.0-53.0) % MCV (80.0-100.0) fL RDW (11.5-15.5) % Macrocytosis Chloride 115 H (98-107) mmol/L BUN 47 H (9-20) mg/dL Creatinine 2.30 H (0.66-1.25) mg/dL POC Glucose (mg/dL) (70-110) mg/dL Magnesium 1.3 L (1.6-2.3) mg/dL Total Protein (PEP) (6.2-8.2) g/dL Vitamin B12 (200.0-944.0) pg/mL Assessment and Plan Plan: Assessment: 1. Acute kidney injury secondary to ATN secondary to septic shock and rhabdomyolysis. Creatinine 3.18 on admission and improved to 0.89 dated October 16, 2024 -worsened with diuresis. Lasix discontinued October 23, 2024. Creatinine stable at 2.3 today. No hydronephrosis noted on kidney ultrasound. 2. Rhabdomyolysis secondary to immobility. Resolved. 3. Strep bacteremia on antibiotics. Being treated for pneumonia. Status post bronchoscopy October 18, 2024. 4. Anion gap metabolic acidosis secondary to acute kidney injury and lactic acidosis. Now due to IV fluids. Status post bicarb drip. 5. Hypernatremia from lack of oral water intake. Status post D5W. Improved. 6. Hypomagnesemia from poor intake. 7. History of alcohol abuse. 8. Hypocalcemia secondary to acute kidney injury as well as intracellular shifting from bicarb. PTH 112. Vitamin D level 26.5. On vitamin D. Corrected calcium in the normal range. 9. A-fib with RVR maintained on amiodarone and Lopressor. 10. Volume overload. 11. Acute blood loss anemia status post blood transfusion this admission. Hemoglobin stable at 7.7 today. 12. Hypokalemia from poor intake and hypomagnesemia. Plan: Lasix 20 mg IV once today. Continue to assess volume status on daily basis. Avoid nephrotoxins. Continue to monitor renal function and urine output. Potassium and magnesium being replaced. Follow-up serologies. Urine eosinophils negative. Complements normal. Hepatitis panel negative. YVONNE and double-stranded DNA antibody negative.
--- NOTE | 2024-10-25 10:33 | P.GSCN ---
History of Present Illness Consult date: 10/25/24 Reason for Consult: Gangrenous toes Requesting physician: Fatou Latif History of present illness: This is a 64-year-old male who was admitted on 10/06/2024 and admitted to the ICU who was found unresponsive. Vascular surgery was initially consulted and patient was seen on 10/08/2024 for toe wounds. Patient has a history of alcoholism and heavy smoker was found unresponsive brought into the emergency department back on 10/06/2024. He has remained in the ICU he was found to have high fever on admission as well as rhabdomyolysis and admitted for sepsis. Patient was seen by orthopedics and has been treated for right septic knee arthropathy status post diagnostic arthroscopy with lavage. Patient remains encephalopathic. Apparently has been intubated twice during this hospitalization. Patient has dry wounds on his left toes and vascular surgery was consulted for further evaluation. During his first evaluation he underwent ABIs which were normal bilaterally. There are dry scabbed wounds to patient's left third and fourth toe without any drainage or erythema. Also there is a scabbed ulcer to the lateral aspect of the left great toe. Review of Systems ROS unobtainable: due to mental status Past Medical History Past Medical History: Coronary Artery Disease (CAD), Diabetes Mellitus, GERD/Reflux, Hyperlipidemia, Hypertension, Myocardial Infarction (MA), Osteoarthritis (OA) Additional Past Medical History / Comment(s): arthritis in fingers, knees, and neck area; NT in bilat arms Last Myocardial Infarction Date:: 2009 History of Any Multi-Drug Resistant Organisms: None Reported Past Surgical History: Heart Catheterization With Stent Additional Past Surgical History / Comment(s): ANAL FISSURE REPAIR, 2 cardiac stents, bhargavi cataracts. Pain proc Past Anesthesia/Blood Transfusion Reactions: No Reported Reaction Date of Last Stent Placement:: 2015 Past Psychological History: No Psychological Hx Reported Smoking Status: Former smoker Past Alcohol Use History: Daily - Past Family History Father Family Medical History: Cancer Additional Family Medical History / Comment(s): PANCREATIC Medications and Allergies Home Medications Medication Instructions Recorded Confirmed Type Aspirin [Adult Low Dose Aspirin EC] 81 mg PO DAILY 08/29/18 10/06/24 History Insulin Aspart [NovoLOG] See Protocol SQ AC-TID 08/29/18 10/06/24 History Insulin Glargine [Lantus Vial] 20 unit SQ DAILY 08/29/18 10/06/24 History Pantoprazole Sodium [Protonix] 40 mg PO DAILY 08/29/18 10/06/24 History lisinopriL [Zestril] 10 mg PO DAILY 08/29/18 10/06/24 History Atorvastatin [Lipitor] 80 mg PO DAILY #90 tab 10/26/18 10/06/24 Rx Metoprolol Tartrate [Lopressor] 50 mg PO BID 03/02/21 10/06/24 History HYDROcodone/APAP 7.5-325MG [[place] 1 tab PO BID PRN 10/06/24 10/06/24 History 7.5-325] Allergies Allergy/AdvReac Type Severity Reaction Status Date / Time No Known Allergies Allergy Verified 10/06/24 14:43 Surgical - Exam Vital Signs Temp Pulse Resp BP Pulse Ox 103.1 F H 110 H 18 128/109 93 L 10/06/24 14:30 10/06/24 14:30 10/06/24 14:30 10/06/24 14:30 10/06/24 14:30 General appearance: The patient is encephalopathic. HET: Head is normocephalic and atraumatic. Neck: Supple. Heart: Regular. Lungs: Equal expansion, normal respiratory effort. Abdomen: Soft, nondistended. Extremities: Bilateral pedal edema. Dry diabetic wounds to his 2nd through 4th toes, dried callus to plantar aspect under great toe. Bilateral feet warm to the touch, good capillary refill. Multiphasic DP and PT signals. Palpable femoral pulses. Neurological: Patient is awake however not oriented. Results - Labs 10/25/24 03:10 10/25/24 03:10 Abnormal Lab Results - Last 24 Hours (Table) 10/24/24 10/24/24 10/24/24 Range/Units 02:34 11:12 16:15 RBC (4.30-5.90) m/uL Hgb (13.0-17.5) gm/dL Hct (39.0-53.0) % MCV (80.0-100.0) fL RDW (11.5-15.5) % Macrocytosis Chloride (98-107) mmol/L BUN (9-20) mg/dL Creatinine (0.66-1.25) mg/dL POC Glucose (mg/dL) 137 H 36 L* (70-110) mg/dL Magnesium (1.6-2.3) mg/dL Total Protein (PEP) 5.7 L (6.2-8.2) g/dL Vitamin B12 (200.0-944.0) pg/mL 10/24/24 10/24/24 10/24/24 Range/Units 16:16 16:21 16:37 RBC (4.30-5.90) m/uL Hgb (13.0-17.5) gm/dL Hct (39.0-53.0) % MCV (80.0-100.0) fL RDW (11.5-15.5) % Macrocytosis Chloride (98-107) mmol/L BUN (9-20) mg/dL Creatinine (0.66-1.25) mg/dL POC Glucose (mg/dL) 38 L* 39 L* 111 H (70-110) mg/dL Magnesium (1.6-2.3) mg/dL Total Protein (PEP) (6.2-8.2) g/dL Vitamin B12 (200.0-944.0) pg/mL 10/24/24 10/25/24 10/25/24 Range/Units 16:55 00:40 03:10 RBC 2.29 L (4.30-5.90) m/uL Hgb 7.7 L (13.0-17.5) gm/dL Hct 24.7 L (39.0-53.0) % MCV 108.0 H (80.0-100.0) fL RDW 15.6 H (11.5-15.5) % Macrocytosis Marked A Chloride (98-107) mmol/L BUN (9-20) mg/dL Creatinine (0.66-1.25) mg/dL POC Glucose (mg/dL) 187 H (70-110) mg/dL Magnesium (1.6-2.3) mg/dL Total Protein (PEP) (6.2-8.2) g/dL Vitamin B12 2485.0 H (200.0-944.0) pg/mL 10/25/24 Range/Units 03:10 RBC (4.30-5.90) m/uL Hgb (13.0-17.5) gm/dL Hct (39.0-53.0) % MCV (80.0-100.0) fL RDW (11.5-15.5) % Macrocytosis Chloride 115 H (98-107) mmol/L BUN 47 H (9-20) mg/dL Creatinine 2.30 H (0.66-1.25) mg/dL POC Glucose (mg/dL) (70-110) mg/dL Magnesium 1.3 L (1.6-2.3) mg/dL Total Protein (PEP) (6.2-8.2) g/dL Vitamin B12 (200.0-944.0) pg/mL Diabetes panel 10/24/24 10/25/24 Range/Units 16:55 03:10 Sodium 142 (137-145) mmol/L Potassium 3.6 3.7 (3.5-5.1) mmol/L Chloride 115 H (98-107) mmol/L Carbon Dioxide 26 (22-30) mmol/L BUN 47 H (9-20) mg/dL Creatinine 2.30 H (0.66-1.25) mg/dL Glucose 92 (74-99) mg/dL Calcium 8.7 (8.4-10.2) mg/dL Calcium panel 10/25/24 Range/Units 03:10 Calcium 8.7 (8.4-10.2) mg/dL Pituitary panel 10/24/24 10/25/24 Range/Units 16:55 03:10 Sodium 142 (137-145) mmol/L Potassium 3.6 3.7 (3.5-5.1) mmol/L Chloride 115 H (98-107) mmol/L Carbon Dioxide 26 (22-30) mmol/L BUN 47 H (9-20) mg/dL Creatinine 2.30 H (0.66-1.25) mg/dL Glucose 92 (74-99) mg/dL Calcium 8.7 (8.4-10.2) mg/dL Adrenal panel 10/24/24 10/25/24 Range/Units 16:55 03:10 Sodium 142 (137-145) mmol/L Potassium 3.6 3.7 (3.5-5.1) mmol/L Chloride 115 H (98-107) mmol/L Carbon Dioxide 26 (22-30) mmol/L BUN 47 H (9-20) mg/dL Creatinine 2.30 H (0.66-1.25) mg/dL Glucose 92 (74-99) mg/dL Calcium 8.7 (8.4-10.2) mg/dL - Imaging Comments: Arterial ultrasound lower extremities with multiphasic waveforms bilaterally and normal ABIs bilaterally. Assessment and Plan Assessment: 1. Left diabetic foot wounds, dry gangrene 2. Diabetes mellitus 3. Altered mental status changes 4. Rhabdomyolysis 5. Bacteremia with sepsis 6. Right knee septic arthropathy status post arthroscopy with lavage 7. Alcohol abuse 8. Tobacco abuse Plan: 1. Dry diabetic ulcers likely secondary to microvascular disease. No indication for any surgical intervention. Recommend dry gauze in between toes. 2. Arterial ultrasound of lower extremities with no evidence of peripheral arterial disease 3. Continue rest of medical management per multiple consultants Thank you for this consultation, we will sign off at this time. The impression and plan of care has been dictated as directed. Dr. Blake I performed a history and examination of this patient, discussed the same with the dictator. I agree with the dictator's note ,documented as a scribe. Any additional findings or plans will be noted.
[2024-10-25 12:06] LABS: Glucose,Whole Blood 277 mg/dL (70-110)
--- NOTE | 2024-10-25 12:20 | P.PN ---
Subjective Progress Note Date: 10/25/24 I am following-up with patient and per nurse he is about the same. Objective - Vital Signs Vital signs: Vital Signs Temp 98.3 F 10/25/24 12:00 Pulse 89 10/25/24 12:00 Resp 14 10/25/24 12:00 BP 111/63 10/25/24 12:00 Pulse Ox 90 L 10/25/24 12:00 FiO2 40 10/22/24 09:56 Intake & Output 10/24/24 10/25/24 10/25/24 18:59 06:59 18:59 Intake Total 290 60 115 Output Total 655 745 715 Balance -366 -689 -600 Weight 88.7 kg 89.3 kg Intake: IV 290 60 115 0.9 Normal Saline 25 60 15 Cefepime 2 gm In Sodium 100 Chloride 0.9% 100 ml @ 25 mls/hr IVPB Q12HR [facility] Rx #:[id number] Potassium Chloride 20 meq 40 In Water For Injection 1 100ml.bag @ 50 mls/hr IVPB Q2H [facility] Rx#: [id number] Sodium Chloride 0.9% 1, 225 000 ml @ 75 mls/hr IV . [id number] P[facility]O Rx#:[id number] Output: Urine 655 745 715 Other: Voiding Method Indwelling Catheter Indwelling Catheter Indwelling Catheter # Bowel Movements 1 ABP, PAP, CO, CI - Last Documented Arterial Blood Pressure 128/42 - Exam General: Sitting in recliner chair and is not in acute distress. INTEGUMENATRY: Significant edema of the right upper extremity as well as bilateral lower extremity. He is tender to touch over the right upper and lower extremity mostly in the upper extremity as well as at the right knee. Neuro: Limited. The patient is drowsy but is awake able to voice. He is oriented to self. He is following few simple commands. He is slow following commands. Language is limited. Pupils are round 2 to 3 mm bilaterally laterally and reactive to light. He is tracking. No facial weakness. The motor is hard to assess individual muscle strength because of his cooperation. Plantars are mute. Somewhat the workup during this hospital visit consisted of: Patient had episodes of hypoglycemia today as low as 30s. Vitamin B12: 2485 Serum folate: 9.40 Ammonia <9 TSH: 4.380 He has acute on chronic kidney insufficiency on presentation his kidney was elevated and resolved then back now again it is trending up. His sputum cultures Enterococcus aeruginosa's, knee cultures are positive for strep a and blood cultures are positive for strep a The patient had a repeat CT of the head today and it is reported as no acute bleed or mass effect. Mild age-appropriate senescent changes. Marked calcification of basilar artery and significant stenosis cannot be excluded. I personally reviewed the CT and I agree there is no acute or subacute stroke. Routine EEG: Is abnormal. The background slowing is suggestive of moderate to severe encephalopathy, likely due to toxic-metabolic derangement. The triphasic waves are likely due to toxic-metabolic deragement. Otherwise, no focal slowing, epileptiform discharge or seizure on the EEG. - Labs CBC & Chem 7: 10/25/24 03:10 10/25/24 03:10 Labs: Abnormal Lab Results - Last 24 Hours (Table) 10/24/24 10/24/24 10/24/24 Range/Units 16:15 16:16 16:21 RBC (4.30-5.90) m/uL Hgb (13.0-17.5) gm/dL Hct (39.0-53.0) % MCV (80.0-100.0) fL RDW (11.5-15.5) % Macrocytosis Chloride (98-107) mmol/L BUN (9-20) mg/dL Creatinine (0.66-1.25) mg/dL POC Glucose (mg/dL) 36 L* 38 L* 39 L* (70-110) mg/dL Magnesium (1.6-2.3) mg/dL Vitamin B12 (200.0-944.0) pg/mL 10/24/24 10/24/24 10/25/24 Range/Units 16:37 16:55 00:40 RBC (4.30-5.90) m/uL Hgb (13.0-17.5) gm/dL Hct (39.0-53.0) % MCV (80.0-100.0) fL RDW (11.5-15.5) % Macrocytosis Chloride (98-107) mmol/L BUN (9-20) mg/dL Creatinine (0.66-1.25) mg/dL POC Glucose (mg/dL) 111 H 187 H (70-110) mg/dL Magnesium (1.6-2.3) mg/dL Vitamin B12 2485.0 H (200.0-944.0) pg/mL 10/25/24 10/25/24 10/25/24 Range/Units 03:10 03:10 12:05 RBC 2.29 L (4.30-5.90) m/uL Hgb 7.7 L (13.0-17.5) gm/dL Hct 24.7 L (39.0-53.0) % MCV 108.0 H (80.0-100.0) fL RDW 15.6 H (11.5-15.5) % Macrocytosis Marked A Chloride 115 H (98-107) mmol/L BUN 47 H (9-20) mg/dL Creatinine 2.30 H (0.66-1.25) mg/dL POC Glucose (mg/dL) 277 H (70-110) mg/dL Magnesium 1.3 L (1.6-2.3) mg/dL Vitamin B12 (200.0-944.0) pg/mL Assessment and Plan Assessment: This is a 64-year-old gentleman with significant alcohol use who presented emergency department on 10/06/2024 since the patient was found facedown on the ground with confusion to his forehead abrasion to his knees and left toes. He is found to be an septic shock with septic arthritis as well as had left lower lobe pneumonia. He was intubated on a ventilator. He also has acute kidney injury. He had right pleural effusion requiring thoracentesis. He has episode of hypoglycemia today in the 30s. Altered mental status seems due to metabolic encephalopathy as well as septic encephalopathy. Repeat CT of the head is unremarkable for any acute or subacute stroke. EEG is negative for seizure or discharges. Septic shock Septic arthritis of the right knee requiring surgery and the cultures were positive for strep a and he is on IV antibiotic Acute kidney injury Acute left lower lobe pneumonia Rhabdomyolysis likely due to fall/on the ground--- resolved Episodes of hypoglycemia as low as 30s--resolved Right sided pleural effusion requiring thoracentesis Chronic right knee pain status post arthroscopy and lavage department of the right knee with partial medial meniscectomy and medial femoral condyle and medial tibial plateau chondroplasty History of coronary artery disease status post stent History of proximal atrial fibrillation on amiodarone and heparin drip Type 1 diabetes Dyslipidemia History of [place] Chronic back pain Chronic alcohol abuse Plan: Started the patient on thiamine 100 mg daily. Please avoid hypoglycemic events. ID is on board Will defer the rest of the medical management to primary and other specialist The plan discussed with the ICU nurse. Time with Patient: Less than 30
--- NOTE | 2024-10-25 14:38 | P.PN ---
Subjective Progress Note Date: 10/25/24 Principal diagnosis: Reason for follow-up is Streptococcus agalactiae bacteremia Patient is a 64-year-old male past medical history significant for diabetes mellitus hypertension hyperlipidemia MA osteoarthritis coronary disease patient was brought into the hospital after apparently the patient was found to be facedown on the ground with contusion to his forehead and abrasion to his knee and some bloody toes, patient did have a fever subsequently blood cultures came back positive with Streptococcus agalactiae prompting this consultation. Patient noticed to have swelling of the right knee aspirate was purulent subsequently the patient did have a right knee washout completed by orthopedics on 10/10/2024. On today's evaluation that is 10/25/2024, the patient continues to be afebrile, the patient is on 3 L nasal cannula oxygen and breathing comfortably, the Pt denies having any chest pain or any worsening cough, the patient denies having any abdominal pain no vomiting or any diarrhea has been reported by the nursing staff. Patient white count is 5.4, creatinine is 2.30 Objective - Vital Signs Vital signs: Vital Signs Temp 99.5 F 10/25/24 08:00 Pulse 85 10/25/24 10:00 Resp 24 10/25/24 10:00 BP 101/59 10/25/24 10:00 Pulse Ox 95 10/25/24 10:00 FiO2 40 10/22/24 09:56 Intake & Output 10/24/24 10/25/24 10/25/24 18:59 06:59 18:59 Intake Total 290 60 115 Output Total 655 745 265 Balance -365 -685 -150 Weight 88.7 kg 89.3 kg Intake: IV 290 60 115 0.9 Normal Saline 25 60 15 Cefepime 2 gm In Sodium 100 Chloride 0.9% 100 ml @ 25 mls/hr IVPB Q12HR [facility] Rx #:[id number] Potassium Chloride 20 meq 40 In Water For Injection 1 100ml.bag @ 50 mls/hr IVPB Q2H [facility] Rx#: [id number] Sodium Chloride 0.9% 1, 225 000 ml @ 75 mls/hr IV . [id number] [facility] Rx#:[id number] Output: Urine 655 745 265 Other: Voiding Method Indwelling Catheter Indwelling Catheter # Bowel Movements 1 ABP, PAP, CO, CI - Last Documented Arterial Blood Pressure 128/42 - Exam GENERAL DESCRIPTION: Middle-age male lying in bed in no distress RESPIRATORY SYSTEM: Unlabored breathing , coarse breath sounds bilaterally HEART: S1 S2 regular rate and rhythm , ABDOMEN: Soft , no tenderness EXTREMITIES: Swelling to the lower extremity and right knee but no redness - Labs CBC & Chem 7: 10/25/24 03:10 10/25/24 03:10 Labs: Abnormal Lab Results - Last 24 Hours (Table) 10/24/24 10/24/24 10/24/24 Range/Units 11:12 16:15 16:16 RBC (4.30-5.90) m/uL Hgb (13.0-17.5) gm/dL Hct (39.0-53.0) % MCV (80.0-100.0) fL RDW (11.5-15.5) % Macrocytosis Chloride (98-107) mmol/L BUN (9-20) mg/dL Creatinine (0.66-1.25) mg/dL POC Glucose (mg/dL) 137 H 36 L* 38 L* (70-110) mg/dL Magnesium (1.6-2.3) mg/dL Vitamin B12 (200.0-944.0) pg/mL 10/24/24 10/24/24 10/24/24 Range/Units 16:21 16:37 16:55 RBC (4.30-5.90) m/uL Hgb (13.0-17.5) gm/dL Hct (39.0-53.0) % MCV (80.0-100.0) fL RDW (11.5-15.5) % Macrocytosis Chloride (98-107) mmol/L BUN (9-20) mg/dL Creatinine (0.66-1.25) mg/dL POC Glucose (mg/dL) 39 L* 111 H (70-110) mg/dL Magnesium (1.6-2.3) mg/dL Vitamin B12 2485.0 H (200.0-944.0) pg/mL 10/25/24 10/25/24 10/25/24 Range/Units 00:40 03:10 03:10 RBC 2.29 L (4.30-5.90) m/uL Hgb 7.7 L (13.0-17.5) gm/dL Hct 24.7 L (39.0-53.0) % MCV 108.0 H (80.0-100.0) fL RDW 15.6 H (11.5-15.5) % Macrocytosis Marked A Chloride 115 H (98-107) mmol/L BUN 47 H (9-20) mg/dL Creatinine 2.30 H (0.66-1.25) mg/dL POC Glucose (mg/dL) 187 H (70-110) mg/dL Magnesium 1.3 L (1.6-2.3) mg/dL Vitamin B12 (200.0-944.0) pg/mL Assessment and Plan (1) Sepsis Current Visit: Yes Status: Acute Code(s): A41.9 - SEPSIS, UNSPECIFIED ORGANISM SNOMED Code(s): 98613609 (2) Streptococcal bacteremia Current Visit: Yes Status: Acute Code(s): R78.81 - BACTEREMIA; B95.5 - UNSP STREPTOCOCCUS THE CAUSE OF DISEASES [facility] SNOMED Code(s): 098856617132 Plan: 1patient presented to the hospital with sepsis in this patient who did have fever tachycardia elevated white count and now with evidence of streptococcal bacteremia which is usually of skin and soft tissue origin 2-patient noticed to have right knee effusion has been evaluated by orthopedics and is status post aspiration with purulent drainage subsequently did have right knee washout by orthopedic cultures are pending may need further workup including MRI of the spine when stable. Ortho is following the patient closely 3patient right knee fluid culture also came back positive with group A strep 4-patient did have left-sided pneumonia patient required reintubation and also status post bronchoscopy and lavage sputum culture so far negative, initial culture growing Enterobacter that is sensitive to cefepime patient subsequently has been successfully extubated 5the patient remains to be afebrile white count normal. 6-patient will be treated with cefepime for now and monitor clinical course closely Dictation was produced using [employer] dictation software. please excuse any gr ammatical, word or spelling errors. Time with Patient: Less than 30
[2024-10-25 15:07] LABS: C-ANCA <1:20 Titer (<1:20)
--- NOTE | 2024-10-25 15:33 | P.PN ---
Subjective Progress Note Date: 10/25/24 Principal diagnosis: Acute hypoxic respiratory failure with left lower lobe pneumonia and significant mucous plugs with metabolic encephalopathy as well as septic shock Patient is a 64-year-old male who is being seen in the ICU due to hypovolemic shock and rhabdomyolysis. He is a poor historian due to altered mental status and unresponsiveness. All history is obtained from the chart. He initially presented to the emergency department after being found facedown on the ground with a contusion to his forehead and abrasions to his knee and left toes. She stated that he had been having nausea and vomiting for a day prior to being found down. He was noted to have diarrhea as well. Patient is a daily drinker and consumes about a fifth per day according to the notes he has not drank for the 2 days prior to this admission. He also has a history of type 1 diabetes mellitus. Initial EKG showed sinus tachycardia. Head/cervical spine CT showed no acute intracranial process and no acute fracture or traumatic subluxation of the cervical spine. Initial chest x-ray showed right middle lobe scarring/atelectasis, no acute pulmonary process. He had received 4 L of normal saline. Initial labs showed CK level of 18,113, WBCs 10.7, hemoglobin 12.5, sodium 126, creatinine 3.18 lactic acid 6.9, AST 401, ALT 65. Preliminary blood culture showed gram-positive cocci and patient was started on vancomycin. On 10/20/2024, the patient remains sedated on propofol. Arousable and moving all 4 extremities. He is status post reintubation on 10/18/2024 and is status post bronchoscopy x 2 with evacuation of mucous plugs from his left lower lobe. The patient has Enterobacter erogenous in his sputum and the patient remains on IV cefepime. This morning, he remains on assist-control mode with rate of 14, tidal volume of 500, FiO2 of 50% with a PEEP of 10. Blood gas shows significant improvement oxygenation and the pO2 is up to 153 and a pH is at 7.4 with a pCO2 of 41. The patient remains on low-dose norepinephrine at 0.04 mcg/kg/min. He remains on IV heparin for paroxysmal A-fib. Hemoglobin dropped down to 6.7 and the patient is going to receive a unit of packed RBC. Creatinine is up to 1.5. He remains on vital high-protein at rate of 40 cc an hour. Fluid balance is +1.2 L over the past 24 hours. He is afebrile. Patient was seen today on 10/21/24, patient remains in the ICU, patient is on mechanical ventilation with assist-control rate of 14 tidal volume 500 FiO2 40% and PEEP of 6 ABG showed a pO2 of 27 pCO2 34 pH of 7.47. No changes were made in vent settings. Patient remains on propofol at 40 mcg/kg/min, received a unit of packed RBCs yesterday for low hemoglobin. Remains on vital HP patient is receiving cefepime for Enterobacter around [place] and his sputum. Patient had strep a in the right knee joint patient is covered with cefepime remains on Lasix 40 mg IV push daily his initial presentation to the hospital was when he was found facedown on the ground with a contusion on his forehead and abrasion on his left knee as well as left toes. Patient is known to be a heavy drinker, consumes 1/5/day according to the notes in the chart. Patient is also known to have type 1 diabetes, intubation on 10/10/2024 following his knee surgery patient was extubated on 10/15, however he had to be reintubated on 10/18 bronchoscopy was done for extensive pneumonia involving the left lower lobe and mucous plugs were suctioned. Patient also had another bronchoscopy on 09/22 with improvement in his chest x-ray findings and left lower lobe pneumonia. Sputum cultures have been positive for Enterobacter allergies. Has been on IV cefepime WBC count today 6.3 hemoglobin 7.8 metabolic profile is normal BUN is 42 creatinine 1.67. Chest x-ray continues to show bibasilar airspace disease left lower lobe more so than right lower lobe Patient was eval today and 10/22/2024, patient remains in the ICU, intubated and mechanically ventilated, on assist-control rate of 14 tidal volume 500 FiO2 40% PEEP of 6 ABG showed a pO2 of 93 pCO2 34 pH of 7.50 peak airway pressure is 23 Plateau pressure is 16 continues to have some clear yellow sputum that is easily suctioned will not require bronchoscopy today considering the easily suctioned the mucus secretions. Patient is on propofol at 40 mcg/kg/min vital HP at 40 mL/h IV fluid at KVO patient remains on antibiotics in the form of cefepime, he has Enterococcus in the sputum and he had strep pain from his knee. Leg susi on Lasix 40 mg twice daily chest x-ray is showing slight improvement in his bibasilar pneumonia hence I am not recommending bronchoscopy today I will try to give the patient a trial of weaning if possible. Labs today were reviewed WBC count is 5.8 hemoglobin 7.9 platelets are 306, electrolytes are normal BUN is 43 creatinine 1.85 Patient was seen today on 10/23/2024, remains in the ICU, however the patient was extubated yesterday and so far he seems to be tolerating the extubation well. Patient is on 3 L nasal cannula, he is alert, but extremely slow. And complaining of right upper extremity swelling and pain. Considering the patient had a fall I will recommend x-rays of the right upper extremity and I would recommend ultrasound/venous Doppler of the right upper extremity. Patient continues to have pneumonia based on chest x-ray, left lower lobe is quite concerning patient does not have a very good cough. Hoping he does not require bronchoscopy again. In the meantime he is on cefepime. Patient had worsening of his renal functioning and I discontinued his Lasix today. He is on subcu heparin for DVT prophylax. And I do not believe the patient is quite ready to be discharged out of the ICU yet, I will keep him in the ICU for another day. And follow-up chest x-ray will be done in a.m. His WBC count is 6 hemoglobin 8.2 electrolytes are normal BUN is 46 creatinine 2.19 Seen today on 10/24/2024, patient remains in the ICU, off mechanical ventilation, on2 L nasal cannula with O2 saturation between 94 to 97%. Patient is confused, he is not in any form of respiratory distress.WBC is 5.8 hemoglobin 7.6 electrolytes are normal BUN is 46 creatinine 2.22, slightly improved compared to yesterday after holding his diuretics chest x-ray is showing slight improvement in his pneumonia. However what seems to be quite concerning to me is his mental status patient seems to be confused, and continues to have difficulty moving his right upper extremity workup on the right upper extremity has been negative including x-rays and Doppler. Patient was seen today on 10/25/2024, patient remains in the ICU, mental status is basically about the same, patient remains encephalopathic, continues to have difficulty raising his right upper extremity hence orthopedics was consulted. Chest x-ray continues to show bilateral pneumonia left a bit worse than right, patient is on antibiotics for Enterobacter erogenous noted previously on his sputum. Patient is able to clear his secretions on his own, he does have a vigorous cough, his overall mental status seems to be a bit concerning, neurology was consulted on the patient today yesterday, felt that the patient may have metabolic encephalopathy. In addition to this the patient has some ischemic changes noted in the distal aspect of his left fourth toe and at the base of his big toe, hence I recommended vascular surgery evaluation. He does have good pulses by Doppler on that same foot. Labs today show WBC is 5.4 hemoglobin 7.7 electrolytes are normal BUN is 47 creatinine 2.30 Objective - Vital Signs Vital signs: Vital Signs Temp 98.3 F 10/25/24 12:00 Pulse 94 10/25/24 14:00 Resp 21 10/25/24 14:00 BP 102/61 10/25/24 14:00 Pulse Ox 92 L 10/25/24 14:00 FiO2 40 10/22/24 09:56 Intake & Output 10/24/24 10/25/24 10/25/24 18:59 06:59 18:59 Intake Total 290 60 115 Output Total 655 745 990 Balance -791 -941 -898 Weight 88.7 kg 89.3 kg Intake: IV 290 60 115 0.9 Normal Saline 25 60 15 Cefepime 2 gm In Sodium 100 Chloride 0.9% 100 ml @ 25 mls/hr IVPB Q12HR [facility] Rx #:[id number] Potassium Chloride 20 meq 40 In Water For Injection 1 100ml.bag @ 50 mls/hr IVPB Q2H [facility] Rx#: [id number] Sodium Chloride 0.9% 1, 225 000 ml @ 75 mls/hr IV . [id number] [facility] Rx#:[id number] Output: Urine 655 745 990 Other: Voiding Method Indwelling Catheter Indwelling Catheter Indwelling Catheter # Bowel Movements 1 ABP, PAP, CO, CI - Last Documented Arterial Blood Pressure 128/42 - Exam Physical examination: Reveals 64-year-old white male on 3 L nasal cannula, not in distress. Confused and encephalopathic Head exam was generally normal. There was no scleral icterus or corneal arcus. Mucous membranes were moist. Neck supple. Full range of motion. No adenopathy thyromegaly or neck vein distention. Cardiovascular examination reveals regular rhythm rate. S1-S2 normal. No S3 or S4. Lungs diminished breath sounds at the bases no rhonchi no wheezes Abdomen soft, without bowel sounds. No masses or tenderness. Extremities no clubbing or cyanosis, right knee surgical wound site is dry clean and intact. Right knee is slightly swollen. Surgical sites are clean .right upper extremity is swollen and tender but not erythematous and no deformity noted. Ischemic changes noted on the left fourth toe and the base of the big toe left foot vascular surgery was consulted limitations in movement of his right upper extremity noted skin reveals multiple abrasions and bruises. Neurologically, awake, follows simple instruction, but quite confused Psychiatric: normal mood confused mental status - Labs CBC & Chem 7: 10/25/24 03:10 10/25/24 03:10 Labs: Abnormal Lab Results - Last 24 Hours (Table) 10/24/24 10/24/24 10/24/24 Range/Units 16:15 16:16 16:21 RBC (4.30-5.90) m/uL Hgb (13.0-17.5) gm/dL Hct (39.0-53.0) % MCV (80.0-100.0) fL RDW (11.5-15.5) % Macrocytosis Chloride (98-107) mmol/L BUN (9-20) mg/dL Creatinine (0.66-1.25) mg/dL POC Glucose (mg/dL) 36 L* 38 L* 39 L* (70-110) mg/dL Magnesium (1.6-2.3) mg/dL Vitamin B12 (200.0-944.0) pg/mL 10/24/24 10/24/24 10/25/24 Range/Units 16:37 16:55 00:40 RBC (4.30-5.90) m/uL Hgb (13.0-17.5) gm/dL Hct (39.0-53.0) % MCV (80.0-100.0) fL RDW (11.5-15.5) % Macrocytosis Chloride (98-107) mmol/L BUN (9-20) mg/dL Creatinine (0.66-1.25) mg/dL POC Glucose (mg/dL) 111 H 187 H (70-110) mg/dL Magnesium (1.6-2.3) mg/dL Vitamin B12 2485.0 H (200.0-944.0) pg/mL 10/25/24 10/25/24 10/25/24 Range/Units 03:10 03:10 12:05 RBC 2.29 L (4.30-5.90) m/uL Hgb 7.7 L (13.0-17.5) gm/dL Hct 24.7 L (39.0-53.0) % MCV 108.0 H (80.0-100.0) fL RDW 15.6 H (11.5-15.5) % Macrocytosis Marked A Chloride 115 H (98-107) mmol/L BUN 47 H (9-20) mg/dL Creatinine 2.30 H (0.66-1.25) mg/dL POC Glucose (mg/dL) 277 H (70-110) mg/dL Magnesium 1.3 L (1.6-2.3) mg/dL Vitamin B12 (200.0-944.0) pg/mL Assessment and Plan Assessment: Impression: Acute hypoxic respiratory failure, extubated on 10/22/2024. Acute left lower lobe pneumonia Acute metabolic encephalopathy Septic shock, resolved Right-sided pleural effusion requiring thoracentesis and 400 cc of fluid removed Septic arthritis of the right knee requiring surgery cultures positive for strep A, remains on antibiotics/IV cefepime Chronic back pain may need MRI of the lumbosacral spine Chronic alcohol abuse and acute alcohol withdrawal syndrome recovered Postoperative day #12 status post arthroscopy and arthroscopic lavage and debridement of right knee with partial medial meniscectomy and medial femoral condyle and medial tibial plateau chondroplasty Acute kidney injury, patient is now off vancomycin Acute on chronic anemia History of underlying coronary artery disease and previous stent placement History of LV dysfunction and cardiomyopathy with ejection fraction of 45% Paroxysmal atrial fibrillation currently patient is in sinus rhythm. On amiodarone and heparin drip Type 1 diabetes GERD without esophagitis Dyslipidemia History of [place] History of degenerative joint disease Right upper extremity swelling and pain with limitation in range of motion Suspect peripheral vessel occlusive disease and ischemic changes noted on the dose of left foot surgical consultation was initiated Recommendation: Continue to monitor in the ICU Encourage incentive spirometry Continue oxygen via nasal cannula and titrate accordingly Continue antibiotics/cefepime Considering the patient has good cough and able to clear his secretions I will hold back on bronchoscopy Subcu heparin DVT prophylaxis Continue GI prophylaxis Continue insulin Continue IV Protonix Vascular surgery consultation for peripheral vessel occlusive disease Orthopedics to evaluate for right upper extremity limitation range of motion and pain upon movement Time with Patient: Less than 30
[2024-10-25 16:55] LABS: Glucose,Whole Blood 317 mg/dL (70-110)
[2024-10-25] MEDS ORDERED: HYDROmorphone 1 MG/ML 1 ML SYRINGE IVP PRN (17:45)
[2024-10-25] MEDS ORDERED: HYDROmorphone 0.5 MG/0.5 ML SYRINGE IVP PRN (17:45)
[2024-10-25 20:19] LABS: Glucose,Whole Blood 285 mg/dL (70-110)
--- NOTE | 2024-10-25 20:40 | PN ---
PROGRESS NOTE SUBJECTIVE: The patient is admitted to hospital with CVA and had vent-requiring respiratory failure for quite some time. He has history of paroxysmal atrial fibrillation and encephalopathy and this morning still remains somewhat confused. MEDICATIONS: He is on, 1. Amiodarone. 2. Lipitor. 3. Insulin. 4. Lopressor. 5. Ativan. 6. Protonix. We are continuing to hold anticoagulant as his hemoglobin has not improved. He is still around 7.7. BUN is 47, creatinine is 2.3. OBJECTIVE: VITAL SIGNS: Heart rate is 85 beats per minute, blood pressure is 101/59, respiratory rate is 18, O2 saturation is 95%. CHEST: Reveals diminished air entry at the bases. HEART: Reveals first and second heart sounds. No gallop. EXTREMITIES: Did not reveal any edema. ASSESSMENT: 1. Cerebrovascular accident. 2. Paroxysmal atrial fibrillation. 3. Renal insufficiency. 4. Anemia secondary to blood loss. PLAN: We will continue to hold the anticoagulant at this time. MMODL / IJN: [id number] /
[2024-10-25 23:42] LABS: Glucose,Whole Blood 342 mg/dL (70-110)
[2024-10-26] MEDS: HALOPERIDOL LACTATE 5 MG/ML 1 ML VIAL IVP PRN (00:08)
[2024-10-26 06:22] LABS: Glucose,Whole Blood 138 mg/dL (70-110)
[2024-10-26 06:30] LABS: Basophils % (A) 1 %; Eosinophils % (A) 1 %; HCT 24.3 % (39.0-53.0); HGB 7.3 gm/dL (13.0-17.5); Hypochromasia Marked; Lymphocytes # (A) 1.1 k/uL (1.0-4.8); Lymphocytes % (A) 21 %; MCH 33.1 pg (25.0-35.0); Macrocytosis Marked; Mean Platelet Volume 9.8; Monocytes # (A) 0.3 k/uL (0-1.0); Monocytes % (A) 6 %; Neutrophils # (A) 3.7 k/uL (1.3-7.7); Neutrophils % (A) 69 %; Platelet Count 256 k/uL (150-450); RDW 15.5 % (11.5-15.5); WBC 5.3 k/uL (3.8-10.6)
[2024-10-26 06:32] LABS: MCV 110.4 fL (80.0-100.0)
--- NOTE | 2024-10-26 06:43 | P.PN ---
Subjective Progress Note Date: 10/25/24 64-year-old male who is being seen in the ICU due to hypovolemic shock and rhabdomyolysis. He is a poor historian due to altered mental status and unresponsiveness. All history is obtained from the chart. He initially presented to the emergency department after being found facedown on the ground with a contusion to his forehead and abrasions to his knee and left toes. She stated that he had been having nausea and vomiting for a day prior to being found down. He was noted to have diarrhea as well. Patient is a daily drinker and consumes about a fifth per day according to the notes he has not drank for the 2 days prior to this admission. He also has a history of type 1 diabetes mellitus. Initial EKG showed sinus tachycardia. Head/cervical spine CT showed no acute intracranial process and no acute fracture or traumatic subluxation of the cervical spine. Initial chest x-ray showed right middle lobe scarring/atelectasis, no acute pulmonary process. He had received 4 L of normal saline. Initial labs showed CK level of 18,113, WBCs 10.7, hemoglobin 12.5, sodium 126, creatinine 3.18 lactic acid 6.9, AST 401, ALT 65. Preliminary blood culture showed gram-positive cocci and patient was started on vancomycin. 24-hour interval change 10/12/2024 -- Patient is evaluated in the ICU. He remains intubated on mechanical ventilation - ABG shows pH 7.42, pCO2 38, pO2 74. - He is maintained on vasopressin 0.02 units/min, normal saline at 20 cc/h, IV hydrocortisone 50 mg every 6 hours, and Kefzol day 5. Labs are reviewed WBCs 17.4, hemoglobin 8.2, hematocrit 25.2, platelets 53, sodium 142, potassium 3.7, chloride 116, CO2 23, BUN 39, creatinine 1.18, gluc ose 258. Ionized calcium 4.4. Magnesium 1.8. Today's chest x-ray is unchanged. Wound culture gram stain of the right knee preliminary report shows rare gram positive cocci. 10/13/2024 Patient is seen and evaluated in ICU at bedside; remains on the mechanical ventilator. Discussed with nursing staff. Concerns about elevated blood sugars; patient was placed on home dose of Lantus which did not help much - Blood gases show pO2 72, pCO2 41, and pH is 7.42. - The patient is on propofol at 35 mcg/kg/min, saline at 20 cc an hour, and vital high-protein at 60, with goal of 70. Yesterday, he had a brief spontaneous breathing trial, and he did poorly. Today he will again have a spontaneous breathing trial, of pressure support of 5 and CPAP of 5. He continues on Ancef. White count 18.8, hemoglobin 8.2, hematocrit 25.8, platelet count 78,000. Sodium 144, potassium 4.1, chlorides 117, CO2 26, BUN 47, creatinine 1.18. Glucose is 340. Albumin is 2.1. Previous blood cultures from October 06 show group A streptococci. Chest x-ray shows bibasilar infiltrates. -- For hyperglycemia I will increase dose of Lantus and add insulin lispro every 4 hours; continue with current sliding scale 10/14/2024 Patient is seen in follow-up today continues on Precedex and attempting to wean maintained on mechanical ventilation with an FiO2 of 50% PEEP is 5. Per nursing staff attempting sedation holiday although did not go well yesterday. Patient is maintained on antibiotics with infectious disease following and patient is status post right knee aspiration with preliminary culture showing strep a with positive blood cultures. Patient continues with significant swelling especially the scrotal area maintained on IV Lasix and will continue. No discussion of PEG and trach as of yet and patient remains full code. Prognosis is guarded. 10/15/2024 Patient is seen this morning continues to be in the ICU currently working on weaning FiO2 and undergoing sedation holiday. Patient is eye tracking and following commands and per pulmonary geographic information systems director working on extubation today. Will await official report and monitor closely. Patient is continued on antibio tics with infectious disease following. 10/16/2024 Patient is seen in follow-up this morning extubated successfully currently maintained on 6 L high flow nasal cannula. Patient is awake and responding appropriately to questions and commands. Patient is extremely lethargic at times and significantly weak with significant edema noted. Sodium is elevated at 150 and is continued on D5 and water. Blood sugars have been elevated and will adjust insulins accordingly. Patient swallow eval performed and failed awaiting reevaluation with speech. Continue n.p.o. for now. White count remains elevated patient is maintained on antibiotics with infectious disease following. Awaiting repeat cultures. Procalcitonin 1.06. Questions and concerns were answered to the best of my ability with son at the bedside. 10/17/2024 Patient is evaluated today in follow up in the ICU. He was extubated yesterday. Continues on oxygen support on 100% BiPAP at this time. Cultures from the right knee arthroscopy reveals Strep A. Chest xray today reveals no change to the bibasilar opacities. Chest ultrasound reveals right pleural effusion pocket size 6.0 cm and left pleural effusion pocket size of 4.9 cm. Both sides marked for possible thoracentesis. Labs today reveal white blood cell count of 11.8, hgb 7 .5, sodium 146, potassium 3.4, BUN 43, creatinine 1.06. Blood glucose 200s. Continues on IV amiodarone, IV cefepime, IV vancomycin. Patient is in normal sinus rhythm currently heart rate in the 80s. 10/18/2024 Patient evaluated today in follow up in the ICU. He is awake alert oriented continues on BiPAP. He is status post right sided thoracentesis with 400 mL off. Chest xray today reveals stable bilateral lower lobe infiltrate and small pleural effusion. White blood cell count today 10.4. Continues on IV vancomycin and IV cefepime. Remains on IV amiodarone. on IV heparin. Patient remains NPO at this time, speech therapy to follow up today to reassess. 10/19/2024 Patient remains in the ICU. He is on the mechanical ventilator, FiO2 of 50%. Chest x-ray today shows left lower lobe pneumonia and/or atelectasis and pleural effusion. Elian in the left lung base is obscuring the left heart border and the hemidiaphragm has decreased in the interval. White blood cell count today is 8.4, hemoglobin 7.1, sodium 144, BUN of 40, creatinine of 1.43. His viral panel is negative for all viruses checked. 10/20/2024 Patient remains the intensive care unit he is currently on mechanical ventilator with an FiO2 of 50%. He is awake and alert and responding to commands. His chest x-ray reveals continued acute coronary cardiopulmonary disease involving the retrocardiac region with no significant interval change. Repeat sputum reveals Enterobacter he continues on IV cefepime at this time. Hemoglobin level today is 6.7 he will receive 1 unit of packed red blood cells. His creatinine is up to 1.51 today. Continues on oral amiodarone for the atrial fibrillation was taken off of anticoagulation secondary to the decreased hemoglobin. Patient is sedated with propofol at this time. He is also receiving IV Lasix daily prognosis remains guarded. 10/21/2024 Patient remains in the intensive care unit. Remains on the mechanical ventilator. He is currently sedated with propofol. He is alert and following commands. Chest xray unchanged continues to show pneumonia with sputum culture showing enterobacter. He remains on IV cefepime. Hemoglobin better today at 7.8. BUN 42 creatinine 1.67. 10/22/2024 Patient is evaluated today in the intensive care unit. Patient was extubated today. He is awake alert and oriented. He is complaining of some back pain. Has IV dilaudid on board. Chest xray today reveals no evidence of pleural effusion, focal consolidation, or pneumothorax. He remains edematous. Creatinine 1.87 today. On IV lasix which has been increased to BID by nephrology. 3L of urine output in the last 24 hours. 10/23/2024 Patient evaluated today in follow up in the ICU. Currently on 2L of oxygen via nasal cannula with saturations of 99%. Remains on IV cefepime. Chest xray today reveals left lung airspace opacity. Creatinine up to 2.1 today IV lasix has been discontinued. Patient has been placed on normal saline at 75 mls/hr. Speech therapy re consulted for swallow evaluation post extubation. 10/24/2024 Patient evaluated today in follow up remains in the ICU. Patient underwent neuro evaluation today. Brain CT was done revealing no acute bleed or mass effect. Mil d age-appropriate senescent changes. Marked calcification of basal artery and significant stenosis cannot be excluded. Mild to moderate fluid in the mastoid air cells bilaterally. BUN 46 creatinine 2.12. Continues on normal saline at 75 mls/hr. Continues on IV cefepime. 10/25/2024 Patient remains in the ICU with multiple consultations following. Patient continues to be encephalopathic with neurology following. Orthopedics to reevaluate the upper extremity weakness and also vascular surgery was consulted as there is concerns of occlusive disease of the left lower extremity with discoloration of the toes. Patient continues on antibiotics and continues to require 2 L of oxygen. Patient is maintained on dysphagia ground diet and strongly recommend aspiration precautions and supervision with meals along with head of the bed elevated 30 to 45 degrees at all times. Patient is currently afebrile with no reports of chest pain or shortness of breath. 1 dose of IV Lasix was given today. Review of systems: Constitutional: reports of fatigue, no fever, or chills Cardiovascular: No reports of chest pain or palpitations Respiratory: No reports of shortness of breath with continued cough GI: No reports of nausea, vomiting, or diarrhea, : No reports of dysuria or retention Neurovascular: reports of generalized weakness and significant swelling of upper and lower extremities All medications have been reviewed Physical exam: Gen: This is a 64-year-old male who is maintained on 2 L nasal cannula., well- developed, elderly appearing, ill-appearing, appears older than stated age HEENT: Head is atraumatic, normocephalic. Pupils equal, round. Sclerae is anicteric. NECK: Supple. No JVD. No lymphadenopathy. No thyromegaly. LUNGS: Diminished breath sounds bilaterally with some bronchial congestion and coarse scattered rhonchi. No intercostal retractions. HEART: S1, S2 are muffled ABDOMEN: Soft. Somewhat taut, positive bowel sounds are present. No masses. No tenderness. Significant scrotal edema noted, minimally improved EXTREMITIES: Bilateral upper and lower extremity edema noted. No calf tenderness. Generalized upper and lower extremity edema along with scrotal swel ling noted NEUROLOGICAL: Patient is awake, alert and oriented x 2, diffusely weak Assessment: -Chronic alcohol abuse with acute alcohol withdrawal syndrome; Thiamine and protonix. No longer going through acute withdrawals. -Altered mental status acute metabolic and septic encephalopathy. Brain CT reveals no acte stroke. -Acute hypoxic respiratory failure was intubated following knee surgery on 10/10 and successfully extubated on 10/15/24. re-intubated on 10/18/2024 and now extubated on 10/22/24. Status post bronchoscopy on 10/18. -Congestive heart failure with an EF of 45%, diastolic dysfunction -Paroxysmal atrial fibrillation transitioned to oral amiodarone Continues on IV heparin -Right sided pleural effusion status post right sided thoracentesis with 400 mL off. -Rhabdomyolysis secondary to immobility due to fall. Improving with IV hydration. We will continue to monitor strict STERLING's, daily weights, renal function electrolytes -Acute kidney injury secondary to ATN due to to septic shock and rhabdomyolysis. Was initially improving and now with worsening renal function while on hemodialysis. -Relative adrenal insufficiency. On IV hydrocortisone. -Transaminitis. Improving. -Streptococcus group A bacteremia. Currently on cefazolin per ID recommendation; continue to monitor CBC, CRP and procalcitonin. Possibly secondary to right knee infection -Right knee pain with swelling, status post aspiration along with arthroscopic lavage, culture showing strep a with septic arthritis -Hyponatremia, likely hypovolemic; resolved. -Now hypernatremic likely from free water deficit and continues on D5 water. -Type 1 diabetes mellitus; we will continue to monitor Accu-Cheks before every meal and at bedtime with insulin sliding scale. -History of coronary artery disease with previous catheterization and stent placement. -Hypertension; currently not on any antihypertensive medication. -Sepsis, present on admission possibly secondary to right knee arthritis with bacteremia GI prophylaxis DVT prophylaxis No code Plan: Patient continues in the ICU with multiple consultations following maintained on IV antibiotics status post arthroscopy with lavage of the right knee and final cultures showing Strep A. Repeat blood cultures thus far are negative and will continue on IV antibiotics with ID following He is now s/p right sided thoracentesis with 400 mL of fluid off. Sent for cytology. Continues on 2 L and did receive a dose of IV Lasix today Sputum culture showing Enterobacter patient is status post bronchoscopy sputum cultures are now negative continues on IV cefepime Speech therapy has been reconsulted post extubation and is maintained on a dysphagia ground diet and strongly recommend aspiration precautions with supervision with meals and out of the bed elevated 30 to 45 degrees at all times Blood sugars variable and have been elevated, will continue sliding scale and also adjust long-acting slightly as blood sugars have been consistently remaining over the 200s monitor closely for hypoglycemia discussion was had with family at the bedside as well as patient and will likely need rehab on discharge. Follow-up on repeat labs and monitor kidney functions and electrolytes closely. Due to the worsening renal function, lasix has been discontinued and patient has been started on normal saline at 75 mls./hr. Physical therapy and occupational therapy have been re-consulted. Overall prognosis remains guarded at this time The impression and plan of care has been dictated by Mercy Gilmore, Nurse Practitioner as directed. Dr. Randall MD I have performed a history and examination and MDM of this patient, discussed the same with the dictator, and agree with the dictator's assessment and plan as written ,documented as a scribe. Based on total visit time, I have performed more than 50% of the visit. Objective - Vital Signs Vital signs: Vital Signs Temp 98.6 F 10/26/24 04:00 Pulse 89 10/26/24 06:00 Resp 24 10/26/24 06:00 BP 109/59 10/26/24 06:00 Pulse Ox 94 L 10/26/24 06:00 FiO2 40 10/22/24 09:56 Intake & Output 10/25/24 10/25/24 10/26/24 06:59 18:59 06:59 Intake Total 60 135 140 Output Total 745 1325 440 Balance -847 -6260 -300 Weight 89.3 kg 90.3 kg Intake: IV 60 135 140 0.9 Normal Saline 60 35 40 Cefepime 2 gm In Sodium 100 100 Chloride 0.9% 100 ml @ 25 mls/hr IVPB Q12HR [facility] Rx #:[id number] Output: Urine 745 1325 440 Other: Voiding Method Indwelling Catheter Indwelling Catheter Indwelling Catheter ABP, PAP, CO, CI - Last Documented Arterial Blood Pressure 128/42 - Labs CBC & Chem 7: 10/26/24 05:45 10/25/24 03:10 Labs: Abnormal Lab Results - Last 24 Hours (Table) 10/25/24 10/25/24 10/25/24 Range/Units 12:05 16:54 20:18 RBC (4.30-5.90) m/uL Hgb (13.0-17.5) gm/dL Hct (39.0-53.0) % MCV (80.0-100.0) fL MCHC (31.0-37.0) g/dL Macrocytosis POC Glucose (mg/dL) 277 H 317 H 285 H (70-110) mg/dL 10/25/24 10/26/24 10/26/24 Range/Units 23:40 05:45 06:20 RBC 2.20 L (4.30-5.90) m/uL Hgb 7.3 L (13.0-17.5) gm/dL Hct 24.3 L (39.0-53.0) % MCV 110.4 H (80.0-100.0) fL MCHC 30.0 L (31.0-37.0) g/dL Macrocytosis Marked A POC Glucose (mg/dL) 342 H 138 H (70-110) mg/dL Microbiology - Last 24 Hours (Table) 10/10/24 12:04 Fungal Culture - Preliminary Knee - Right
--- NOTE | 2024-10-26 07:09 | XR ---
EXAMINATION TYPE: XR chest 1V portable DATE OF EXAM: 10/26/2024 COMPARISON: 10/25/2024 CLINICAL INDICATION: Male, 64 years old with history of Disease progression; TECHNIQUE: Single frontal view of the chest is obtained. FINDINGS: Partially consolidative process in the left perihilar region and left lung base is stable allowing fo r differences in technique. There is prominence of the right lung interstitium which could reflect mi ld interstitial process or result of poor inspiratory effort. There is no pneumothorax. The osseous structures are intact. IMPRESSION: No significant interval change in the acute cardiopulmonary process as described above. [facility], , 10/26/2024 7:07 AM
[2024-10-26 07:20] LABS: African American GFR (CKD) 29 (>60 ml/min/1.73 sqM); Anion Gap 4 mmol/L; Blood Urea Nitrogen 51 mg/dL (9-20); Carbon Dioxide 22 mmol/L (22-30); Chloride 114 mmol/L (98-107); Glucose 210 mg/dL (74-99); Non-African American GFR(CKD) 25 (>60 ml/min/1.73 sqM); Potassium 3.9 mmol/L (3.5-5.1); Sodium 140 mmol/L (137-145)
[2024-10-26] MEDS: SODIUM CHLORIDE 0.9% 1,000 ML IV SCH (10:28)
[2024-10-26] MEDS: INSULIN DETEMIR (LEVEMIR) 100 UNIT/ML SYR SQ SCH (11:15)
[2024-10-26 11:16] LABS: Glucose,Whole Blood 163 mg/dL (70-110)
--- NOTE | 2024-10-26 12:20 | P.PN ---
Subjective Progress Note Date: 10/26/24 Patient is seen in follow-up for acute kidney injury. Renal function fairly stable. Nonoliguric. Extubated October 22, 2024. Able to arouse but lethargic. Vital signs are stable. General: No acute distress. HEENT: Intubated. LUNGS: Scattered rhonchi. HEART: Rate and Rhythm are regular. ABDOMEN: No distention. EXTREMITITES: 1+ edema. Scrotal edema noted. Objective - Vital Signs Vital signs: Vital Signs Temp 98.6 F 10/26/24 04:00 Pulse 93 10/26/24 07:00 Resp 25 H 10/26/24 07:00 BP 114/65 10/26/24 07:00 Pulse Ox 96 10/26/24 07:25 FiO2 40 10/22/24 09:56 Intake & Output 10/25/24 10/26/24 10/26/24 18:59 06:59 18:59 Intake Total 135 140 5 Output Total 1325 440 30 Balance -1190 -300 -25 Weight 90.3 kg Intake: IV 135 140 5 0.9 Normal Saline 35 40 5 Cefepime 2 gm In Sodium 100 100 Chloride 0.9% 100 ml @ 25 mls/hr IVPB Q12HR [facility] Rx #:[id number] Output: Urine 1325 440 30 Other: Voiding Method Indwelling Catheter Indwelling Catheter ABP, PAP, CO, CI - Last Documented Arterial Blood Pressure 128/42 - Labs CBC & Chem 7: 10/26/24 05:45 10/26/24 06:00 Labs: Abnormal Lab Results - Last 24 Hours (Table) 10/25/24 10/25/24 10/25/24 Range/Units 12:05 16:54 20:18 RBC (4.30-5.90) m/uL Hgb (13.0-17.5) gm/dL Hct (39.0-53.0) % MCV (80.0-100.0) fL MCHC (31.0-37.0) g/dL Macrocytosis Chloride (98-107) mmol/L BUN (9-20) mg/dL Creatinine (0.66-1.25) mg/dL Glucose (74-99) mg/dL POC Glucose (mg/dL) 277 H 317 H 285 H (70-110) mg/dL 10/25/24 10/26/24 10/26/24 Range/Units 23:40 05:45 06:00 RBC 2.20 L (4.30-5.90) m/uL Hgb 7.3 L (13.0-17.5) gm/dL Hct 24.3 L (39.0-53.0) % MCV 110.4 H (80.0-100.0) fL MCHC 30.0 L (31.0-37.0) g/dL Macrocytosis Marked A Chloride 114 H (98-107) mmol/L BUN 51 H (9-20) mg/dL Creatinine 2.66 H (0.66-1.25) mg/dL Glucose 210 H (74-99) mg/dL POC Glucose (mg/dL) 342 H (70-110) mg/dL 10/26/24 Range/Units 06:20 RBC (4.30-5.90) m/uL Hgb (13.0-17.5) gm/dL Hct (39.0-53.0) % MCV (80.0-100.0) fL MCHC (31.0-37.0) g/dL Macrocytosis Chloride (98-107) mmol/L BUN (9-20) mg/dL Creatinine (0.66-1.25) mg/dL Glucose (74-99) mg/dL POC Glucose (mg/dL) 138 H (70-110) mg/dL Microbiology - Last 24 Hours (Table) 10/10/24 12:04 Fungal Culture - Preliminary Knee - Right Assessment and Plan Assessment: 1. Acute kidney injury secondary to ATN secondary to septic shock and rhabdomyolysis. Creatinine 3.18 on admission and improved to 0.89 dated October 16, 2024 -worsened with diuresis. Lasix discontinued October 23, 2024. Creatinine worsening at 2.6 today. No hydronephrosis noted on kidney ultrasound. 2. Rhabdomyolysis secondary to immobility. Resolved. 3. Strep bacteremia on antibiotics. Being treated for pneumonia. Status post bronchoscopy October 18, 2024. 4. Anion gap metabolic acidosis secondary to acute kidney injury and lactic acidosis. Now due to IV fluids. Status post bicarb drip. 5. Hypernatremia from lack of oral water intake. Status post D5W. Improved. 6. Hypomagnesemia from poor intake. 7. History of alcohol abuse. 8. Hypocalcemia secondary to acute kidney injury as well as intracellular shifting from bicarb. PTH 112. Vitamin D level 26.5. On vitamin D. Corrected calcium in the normal range. 9. A-fib with RVR maintained on amiodarone and Lopressor. 10. Volume overload. 11. Acute blood loss anemia status post blood transfusion this admission. Hemoglobin stable at 7.7 today. 12. Hypokalemia from poor intake and hypomagnesemia. Plan: Hold off on further diuresis as renal function worsening. Trial IVF today Continue to assess volume status on daily basis. Avoid nephrotoxins. Continue to monitor renal function and urine output. Urine eosinophils negative. Complements normal. Hepatitis panel negative. YVONNE and double-stranded DNA antibody and ANCA negative.
--- NOTE | 2024-10-26 13:01 | PN ---
PROGRESS NOTE SUBJECTIVE: [place] appears more alert and awake. Remains in sinus rhythm, stable hemodynamically. He continues to have a low hemoglobin and is not able to move his right upper or lower extremities and has some confusion. PHYSICAL EXAMINATION: GENERAL: Comfortable at rest. VITAL SIGNS: Stable. CHEST: Reveals diminished air entry at the bases. HEART: Reveals first and second heart sounds. No gallop. EXTREMITIES: Reveals bilateral pitting edema. Peripheral pulses are palpable. LABORATORY DATA: Labs show a hemoglobin of 7.3, platelet count is 256, potassium is 3.9, BUN is 51, creatinine is 2.6. ASSESSMENT: 1. Cerebrovascular accident. 2. Paroxysmal atrial fibrillation. 3. Renal insufficiency. 4. Anemia secondary to blood loss. PLAN: I will continue current medications. MMODL / IJN: [id number] /
--- NOTE | 2024-10-26 13:04 | P.PN ---
Subjective Progress Note Date: 10/26/24 Principal diagnosis: Acute hypoxic respiratory failure with left lower lobe pneumonia and significant mucous plugs with metabolic encephalopathy as well as septic shock Patient is a 64-year-old male who is being seen in the ICU due to hypovolemic shock and rhabdomyolysis. He is a poor historian due to altered mental status and unresponsiveness. All history is obtained from the chart. He initially presented to the emergency department after being found facedown on the ground with a contusion to his forehead and abrasions to his knee and left toes. She stated that he had been having nausea and vomiting for a day prior to being found down. He was noted to have diarrhea as well. Patient is a daily drinker and consumes about a fifth per day according to the notes he has not drank for the 2 days prior to this admission. He also has a history of type 1 diabetes mellitus. Initial EKG showed sinus tachycardia. Head/cervical spine CT showed no acute intracranial process and no acute fracture or traumatic subluxation of the cervical spine. Initial chest x-ray showed right middle lobe scarring/atelectasis, no acute pulmonary process. He had received 4 L of normal saline. Initial labs showed CK level of 18,113, WBCs 10.7, hemoglobin 12.5, sodium 126, creatinine 3.18 lactic acid 6.9, AST 401, ALT 65. Preliminary blood culture showed gram-positive cocci and patient was started on vancomycin. On 10/20/2024, the patient remains sedated on propofol. Arousable and moving all 4 extremities. He is status post reintubation on 10/18/2024 and is status post bronchoscopy x 2 with evacuation of mucous plugs from his left lower lobe. The patient has Enterobacter erogenous in his sputum and the patient remains on IV cefepime. This morning, he remains on assist-control mode with rate of 14, tidal volume of 500, FiO2 of 50% with a PEEP of 10. Blood gas shows significant improvement oxygenation and the pO2 is up to 153 and a pH is at 7.4 with a pCO2 of 41. The patient remains on low-dose norepinephrine at 0.04 mcg/kg/min. He remains on IV heparin for paroxysmal A-fib. Hemoglobin dropped down to 6.7 and the patient is going to receive a unit of packed RBC. Creatinine is up to 1.5. He remains on vital high-protein at rate of 40 cc an hour. Fluid balance is +1.2 L over the past 24 hours. He is afebrile. Patient was seen today on 10/21/24, patient remains in the ICU, patient is on mechanical ventilation with assist-control rate of 14 tidal volume 500 FiO2 40% and PEEP of 6 ABG showed a pO2 of 27 pCO2 34 pH of 7.47. No changes were made in vent settings. Patient remains on propofol at 40 mcg/kg/min, received a unit of packed RBCs yesterday for low hemoglobin. Remains on vital HP patient is receiving cefepime for Enterobacter around [place] and his sputum. Patient had strep a in the right knee joint patient is covered with cefepime remains on Lasix 40 mg IV push daily his initial presentation to the hospital was when he was found facedown on the ground with a contusion on his forehead and abrasion on his left knee as well as left toes. Patient is known to be a heavy drinker, consumes 1/5/day according to the notes in the chart. Patient is also known to have type 1 diabetes, intubation on 10/10/2024 following his knee surgery patient was extubated on 10/15, however he had to be reintubated on 10/18 bronchoscopy was done for extensive pneumonia involving the left lower lobe and mucous plugs were suctioned. Patient also had another bronchoscopy on 09/22 with improvement in his chest x-ray findings and left lower lobe pneumonia. Sputum cultures have been positive for Enterobacter allergies. Has been on IV cefepime WBC count today 6.3 hemoglobin 7.8 metabolic profile is normal BUN is 42 creatinine 1.67. Chest x-ray continues to show bibasilar airspace disease left lower lobe more so than right lower lobe Patient was eval today and 10/22/2024, patient remains in the ICU, intubated and mechanically ventilated, on assist-control rate of 14 tidal volume 500 FiO2 40% PEEP of 6 ABG showed a pO2 of 93 pCO2 34 pH of 7.50 peak airway pressure is 23 Plateau pressure is 16 continues to have some clear yellow sputum that is easily suctioned will not require bronchoscopy today considering the easily suctioned the mucus secretions. Patient is on propofol at 40 mcg/kg/min vital HP at 40 mL/h IV fluid at KVO patient remains on antibiotics in the form of cefepime, he has Enterococcus in the sputum and he had strep pain from his knee. Leg susi on Lasix 40 mg twice daily chest x-ray is showing slight improvement in his bibasilar pneumonia hence I am not recommending bronchoscopy today I will try to give the patient a trial of weaning if possible. Labs today were reviewed WBC count is 5.8 hemoglobin 7.9 platelets are 306, electrolytes are normal BUN is 43 creatinine 1.85 Patient was seen today on 10/23/2024, remains in the ICU, however the patient was extubated yesterday and so far he seems to be tolerating the extubation well. Patient is on 3 L nasal cannula, he is alert, but extremely slow. And complaining of right upper extremity swelling and pain. Considering the patient had a fall I will recommend x-rays of the right upper extremity and I would recommend ultrasound/venous Doppler of the right upper extremity. Patient continues to have pneumonia based on chest x-ray, left lower lobe is quite concerning patient does not have a very good cough. Hoping he does not require bronchoscopy again. In the meantime he is on cefepime. Patient had worsening of his renal functioning and I discontinued his Lasix today. He is on subcu heparin for DVT prophylax. And I do not believe the patient is quite ready to be discharged out of the ICU yet, I will keep him in the ICU for another day. And follow-up chest x-ray will be done in a.m. His WBC count is 6 hemoglobin 8.2 electrolytes are normal BUN is 46 creatinine 2.19 Seen today on 10/24/2024, patient remains in the ICU, off mechanical ventilation, on2 L nasal cannula with O2 saturation between 94 to 97%. Patient is confused, he is not in any form of respiratory distress.WBC is 5.8 hemoglobin 7.6 electrolytes are normal BUN is 46 creatinine 2.22, slightly improved compared to yesterday after holding his diuretics chest x-ray is showing slight improvement in his pneumonia. However what seems to be quite concerning to me is his mental status patient seems to be confused, and continues to have difficulty moving his right upper extremity workup on the right upper extremity has been negative including x-rays and Doppler. Patient was seen today on 10/25/2024, patient remains in the ICU, mental status is basically about the same, patient remains encephalopathic, continues to have difficulty raising his right upper extremity hence orthopedics was consulted. Chest x-ray continues to show bilateral pneumonia left a bit worse than right, patient is on antibiotics for Enterobacter erogenous noted previously on his sputum. Patient is able to clear his secretions on his own, he does have a vigorous cough, his overall mental status seems to be a bit concerning, neurology was consulted on the patient today yesterday, felt that the patient may have metabolic encephalopathy. In addition to this the patient has some ischemic changes noted in the distal aspect of his left fourth toe and at the base of his big toe, hence I recommended vascular surgery evaluation. He does have good pulses by Doppler on that same foot. Labs today show WBC is 5.4 hemoglobin 7.7 electrolytes are normal BUN is 47 creatinine 2.30 Patient seen today on 10/26/2024, remains in ICU, remains on 4 L nasal cannula mentation is about the same, remains encephalopathic but follows simple instructions, continues to have issues with his right upper extremity patient is on IV fluid at KVO however I increased IV fluid today to 70 cc/h as his renal function seems to be getting a bit worse. And I am recommending that we stop diuretics altogether. Patient remains on cefepime for Enterobacter in his sputum. Chest x-ray continues show bilateral pneumonia minimal improvement noted. But continues to have significant infiltrates specially in the left lower lobe. WBC is 5.3 hemoglobin 7.3 basic metabolic profile is normal BUN is up to 51 creatinine up to 2.66 Objective - Vital Signs Vital signs: Vital Signs Temp 98.6 F 10/26/24 04:00 Pulse 71 10/26/24 11:00 Resp 15 10/26/24 11:00 BP 94/51 10/26/24 11:00 Pulse Ox 92 L 10/26/24 11:00 FiO2 40 10/22/24 09:56 Intake & Output 10/25/24 10/26/24 10/26/24 18:59 06:59 18:59 Intake Total 135 140 350 Output Total 1325 440 150 Balance -1190 -300 200 Weight 90.3 kg Intake: IV 135 140 110 0.9 Normal Saline 35 40 10 Cefepime 2 gm In Sodium 100 100 100 Chloride 0.9% 100 ml @ 25 mls/hr IVPB Q12HR [facility] Rx #:[id number] Intake, IV Titration 140 Amount Sodium Chloride 0.9% 1, 140 000 ml @ 70 mls/hr IV . [id number] [facility] Rx#:[id number] Oral 100 Output: Urine 1325 440 150 Other: Voiding Method Indwelling Catheter Indwelling Catheter ABP, PAP, CO, CI - Last Documented Arterial Blood Pressure 128/42 - Exam Physical examination: Reveals 64-year-old white male on 2 L nasal cannula, not in distress. Confused and encephalopathic Head exam was generally normal. There was no scleral icterus or corneal arcus. Mucous membranes were moist. Neck supple. Full range of motion. No adenopathy thyromegaly or neck vein distention. Cardiovascular examination reveals regular rhythm rate. S1-S2 normal. No S3 or S4. Lungs diminished breath sounds at the bases no rhonchi no wheezes Abdomen soft, without bowel sounds. No masses or tenderness. Extremities no clubbing or cyanosis, right knee surgical wound site is dry clean and intact. Right knee is slightly swollen. Surgical sites are clean .right upper extremity is swollen and tender but not erythematous and no deformity noted. Ischemic changes noted on the left fourth toe and the base of the big toe left foot skin reveals multiple abrasions and bruises. Neurologically, awake, follows simple instruction, but quite confused Psychiatric: normal mood confused mental status - Labs CBC & Chem 7: 10/26/24 05:45 10/26/24 06:00 Labs: Abnormal Lab Results - Last 24 Hours (Table) 10/25/24 10/25/24 10/25/24 Range/Units 16:54 20:18 23:40 RBC (4.30-5.90) m/uL Hgb (13.0-17.5) gm/dL Hct (39.0-53.0) % MCV (80.0-100.0) fL MCHC (31.0-37.0) g/dL Macrocytosis Chloride (98-107) mmol/L BUN (9-20) mg/dL Creatinine (0.66-1.25) mg/dL Glucose (74-99) mg/dL POC Glucose (mg/dL) 317 H 285 H 342 H (70-110) mg/dL 10/26/24 10/26/24 10/26/24 Range/Units 05:45 06:00 06:20 RBC 2.20 L (4.30-5.90) m/uL Hgb 7.3 L (13.0-17.5) gm/dL Hct 24.3 L (39.0-53.0) % MCV 110.4 H (80.0-100.0) fL MCHC 30.0 L (31.0-37.0) g/dL Macrocytosis Marked A Chloride 114 H (98-107) mmol/L BUN 51 H (9-20) mg/dL Creatinine 2.66 H (0.66-1.25) mg/dL Glucose 210 H (74-99) mg/dL POC Glucose (mg/dL) 138 H (70-110) mg/dL 10/26/24 Range/Units 11:13 RBC (4.30-5.90) m/uL Hgb (13.0-17.5) gm/dL Hct (39.0-53.0) % MCV (80.0-100.0) fL MCHC (31.0-37.0) g/dL Macrocytosis Chloride (98-107) mmol/L BUN (9-20) mg/dL Creatinine (0.66-1.25) mg/dL Glucose (74-99) mg/dL POC Glucose (mg/dL) 163 H (70-110) mg/dL Microbiology - Last 24 Hours (Table) 10/10/24 12:04 Fungal Culture - Preliminary Knee - Right Assessment and Plan Assessment: Impression: Acute hypoxic respiratory failure, extubated on 10/22/2024. Acute left lower lobe pneumonia Acute metabolic encephalopathy Septic shock, resolved Right-sided pleural effusion requiring thoracentesis and 400 cc of fluid removed Septic arthritis of the right knee requiring surgery cultures positive for strep A, remains on antibiotics/IV cefepime Chronic back pain may need MRI of the lumbosacral spine Chronic alcohol abuse and acute alcohol withdrawal syndrome recovered Postoperative day #12 status post arthroscopy and arthroscopic lavage and debridement of right knee with partial medial meniscectomy and medial femoral condyle and medial tibial plateau chondroplasty Acute kidney injury, patient is now off vancomycin Acute on chronic anemia History of underlying coronary artery disease and previous stent placement History of LV dysfunction and cardiomyopathy with ejection fraction of 45% Paroxysmal atrial fibrillation currently patient is in sinus rhythm. On amiodarone and heparin drip Type 1 diabetes GERD without esophagitis Dyslipidemia History of [place] History of degenerative joint disease Right upper extremity swelling and pain with limitation in range of motion Suspect peripheral vessel occlusive disease and ischemic changes noted on the dose of left foot surgical consultation was initiated Recommendation: Continue to closely monitor Encourage incentive spirometry Continue oxygen via nasal cannula and titrate accordingly Continue antibiotics/cefepime Liberalize fluid status a bit more considering his renal functioning and discontinue diuretics Subcu heparin DVT prophylaxis Continue GI prophylaxis Continue insulin Continue IV Protonix Orthopedics to evaluate for right upper extremity pain consult is pending Will continue to follow Time with Patient: Less than 30
[2024-10-26 13:18] LABS: Glucose,Whole Blood 172 mg/dL (70-110)
--- NOTE | 2024-10-26 14:29 | P.PN ---
Subjective Progress Note Date: 10/26/24 Principal diagnosis: Reason for follow-up is Streptococcus agalactiae bacteremia Patient is a 64-year-old male past medical history significant for diabetes mellitus hypertension hyperlipidemia [place] osteoarthritis coronary disease patient was brought into the hospital after apparently the patient was found to be facedown on the ground with contusion to his forehead and abrasion to his knee and some bloody toes, patient did have a fever subsequently blood cultures came back positive with Streptococcus agalactiae prompting this consultation. Patient noticed to have swelling of the right knee aspirate was purulent subsequently the patient did have a right knee washout completed by orthopedics on 10/10/2024. On today's evaluation that is 10/26/2024, patient did not have any fever patient is currently on 2 L nasal cannula oxygen remains to be lethargic did have weak cough no vomiting or diarrhea has been reported by nursing staff. Patient white count is 5.3, creatinine is 2.66 Objective - Vital Signs Vital signs: Vital Signs Temp 98 F 10/26/24 12:00 Pulse 89 10/26/24 13:00 Resp 16 10/26/24 13:00 BP 95/53 10/26/24 13:00 Pulse Ox 88 L 10/26/24 13:00 FiO2 40 10/22/24 09:56 Intake & Output 10/25/24 10/26/24 10/26/24 18:59 06:59 18:59 Intake Total 135 140 615 Output Total 1325 440 210 Balance -1190 -300 405 Weight 90.3 kg Intake: IV 135 140 115 0.9 Normal Saline 35 40 15 Cefepime 2 gm In Sodium 100 100 100 Chloride 0.9% 100 ml @ 25 mls/hr IVPB Q12HR [facility] Rx #:[id number] Intake, IV Titration 280 Amount Sodium Chloride 0.9% 1, 280 000 ml @ 70 mls/hr IV . [id number] [facility] Rx#:[id number] Oral 220 Output: Urine 1325 440 210 Other: Voiding Method Indwelling Catheter Indwelling Catheter Indwelling Catheter ABP, PAP, CO, CI - Last Documented Arterial Blood Pressure 128/42 - Exam GENERAL DESCRIPTION: Middle-age male lying in bed in no distress RESPIRATORY SYSTEM: Unlabored breathing , coarse breath sounds bilaterally HEART: S1 S2 regular rate and rhythm , ABDOMEN: Soft , no tenderness EXTREMITIES: Swelling to the lower extremity and right knee but no redness - Labs CBC & Chem 7: 10/26/24 05:45 10/26/24 06:00 Labs: Abnormal Lab Results - Last 24 Hours (Table) 10/25/24 10/25/24 10/25/24 Range/Units 16:54 20:18 23:40 RBC (4.30-5.90) m/uL Hgb (13.0-17.5) gm/dL Hct (39.0-53.0) % MCV (80.0-100.0) fL MCHC (31.0-37.0) g/dL Macrocytosis Chloride (98-107) mmol/L BUN (9-20) mg/dL Creatinine (0.66-1.25) mg/dL Glucose (74-99) mg/dL POC Glucose (mg/dL) 317 H 285 H 342 H (70-110) mg/dL 10/26/24 10/26/24 10/26/24 Range/Units 05:45 06:00 06:20 RBC 2.20 L (4.30-5.90) m/uL Hgb 7.3 L (13.0-17.5) gm/dL Hct 24.3 L (39.0-53.0) % MCV 110.4 H (80.0-100.0) fL MCHC 30.0 L (31.0-37.0) g/dL Macrocytosis Marked A Chloride 114 H (98-107) mmol/L BUN 51 H (9-20) mg/dL Creatinine 2.66 H (0.66-1.25) mg/dL Glucose 210 H (74-99) mg/dL POC Glucose (mg/dL) 138 H (70-110) mg/dL 10/26/24 10/26/24 Range/Units 11:13 13:16 RBC (4.30-5.90) m/uL Hgb (13.0-17.5) gm/dL Hct (39.0-53.0) % MCV (80.0-100.0) fL MCHC (31.0-37.0) g/dL Macrocytosis Chloride (98-107) mmol/L BUN (9-20) mg/dL Creatinine (0.66-1.25) mg/dL Glucose (74-99) mg/dL POC Glucose (mg/dL) 163 H 172 H (70-110) mg/dL Microbiology - Last 24 Hours (Table) 10/10/24 12:04 Fungal Culture - Preliminary Knee - Right Assessment and Plan (1) Sepsis Current Visit: Yes Status: Acute Code(s): A41.9 - SEPSIS, UNSPECIFIED ORGANISM SNOMED Code(s): 88653025 (2) Streptococcal bacteremia Current Visit: Yes Status: Acute Code(s): R78.81 - BACTEREMIA; B95.5 - UNSP STREPTOCOCCUS THE CAUSE OF DISEASES [facility] SNOMED Code(s): 307636783542 Plan: 1patient presented to the hospital with sepsis in this patient who did have fever tachycardia elevated white count and now with evidence of streptococcal bacteremia which is usually of skin and soft tissue origin 2-patient noticed to have right knee effusion has been evaluated by orthopedics and is status post aspiration with purulent drainage subsequently did have right knee washout by orthopedic cultures are pending may need further workup including MRI of the spine when stable. Ortho is following the patient closely 3patient right knee fluid culture also came back positive with group A strep 4-patient did have left-sided pneumonia patient required reintubation and also status post bronchoscopy and lavage sputum culture so far negative, initial culture growing Enterobacter that is sensitive to cefepime patient subsequently has been successfully extubated 5the patient remains to be afebrile white count normal however did have mental status changes could be related to cefepime . 6-I will discontinue cefepime start the patient on ertapenem and monitor clinical course closely Dictation was produced using [employer] dictation software. please excuse any grammatical, word or spelling errors. Time with Patient: Less than 30
[2024-10-26 16:28] LABS: Glucose,Whole Blood 184 mg/dL (70-110)
[2024-10-26 20:56] LABS: Glucose,Whole Blood 108 mg/dL (70-110)
[2024-10-26] MEDS: SODIUM CHLORIDE 0.9% 250 ML IV SCH (21:15)
[2024-10-26] MEDS: ERTAPENEM 1 GM in SODIUM CHLORIDE 0.9% 50 ML IVPB SCH (21:45)
[2024-10-26 23:35] LABS: Glucose,Whole Blood 147 mg/dL (70-110)
[2024-10-27 05:03] LABS: African American GFR (CKD) 24 (>60 ml/min/1.73 sqM); Anion Gap 4 mmol/L; Blood Urea Nitrogen 54 mg/dL (9-20); Calcium 8.9 mg/dL (8.4-10.2); Carbon Dioxide 21 mmol/L (22-30); Chloride 115 mmol/L (98-107); Glucose 207 mg/dL (74-99); Magnesium 1.5 mg/dL (1.6-2.3); Non-African American GFR(CKD) 21 (>60 ml/min/1.73 sqM); Potassium 4.2 mmol/L (3.5-5.1); Sodium 140 mmol/L (137-145)
[2024-10-27 05:26] LABS: Basophils % (A) 0 %; Eosinophils % (A) 0 %; HCT 23.1 % (39.0-53.0); HGB 7.4 gm/dL (13.0-17.5); Hypochromasia Marked; Lymphocytes # (A) 1.2 k/uL (1.0-4.8); Lymphocytes % (A) 20 %; MCH 34.9 pg (25.0-35.0); MCHC 32.1 g/dL (31.0-37.0); Macrocytosis Marked; Mean Platelet Volume 9.1; Monocytes # (A) 0.4 k/uL (0-1.0); Monocytes % (A) 6 %; Neutrophils # (A) 4.3 k/uL (1.3-7.7); Neutrophils % (A) 71 %; Platelet Count 240 k/uL (150-450); RBC 2.12 m/uL (4.30-5.90); RDW 15.2 % (11.5-15.5)
[2024-10-27 06:04] LABS: Glucose,Whole Blood 281 mg/dL (70-110)
--- NOTE | 2024-10-27 06:52 | XR ---
EXAMINATION TYPE: XR chest 1V portable DATE OF EXAM: 10/27/2024 COMPARISON: 10/26/2024 CLINICAL INDICATION: Male, 64 years old with history of Disease progression; TECHNIQUE: Single frontal view of the chest is obtained. FINDINGS: There is no significant interval change in the partially consolidative opacity in the left perihilar region. There is a mild increase in the right pleural effusion. There is no change in the left retroc ardiac opacity No pneumothorax. The osseous structures are intact. IMPRESSION: 1. No change in the left lung opacification and probable small pleural effusion. 2. Development of a small right pleural effusion. [facility], Workstation: [facility], 10/27/2024 6:49 AM
--- NOTE | 2024-10-27 07:42 | P.PN ---
Subjective Progress Note Date: 10/26/24 64-year-old male who is being seen in the ICU due to hypovolemic shock and rhabdomyolysis. He is a poor historian due to altered mental status and unresponsiveness. All history is obtained from the chart. He initially presented to the emergency department after being found facedown on the ground with a contusion to his forehead and abrasions to his knee and left toes. She stated that he had been having nausea and vomiting for a day prior to being found down. He was noted to have diarrhea as well. Patient is a daily drinker and consumes about a fifth per day according to the notes he has not drank for the 2 days prior to this admission. He also has a history of type 1 diabetes mellitus. Initial EKG showed sinus tachycardia. Head/cervical spine CT showed no acute intracranial process and no acute fracture or traumatic subluxation of the cervical spine. Initial chest x-ray showed right middle lobe scarring/atelectasis, no acute pulmonary process. He had received 4 L of normal saline. Initial labs showed CK level of 18,113, WBCs 10.7, hemoglobin 12.5, sodium 126, creatinine 3.18 lactic acid 6.9, AST 401, ALT 65. Preliminary blood culture showed gram-positive cocci and patient was started on vancomycin. 24-hour interval change 10/12/2024 -- Patient is evaluated in the ICU. He remains intubated on mechanical ventilation - ABG shows pH 7.42, pCO2 38, pO2 74. - He is maintained on vasopressin 0.02 units/min, normal saline at 20 cc/h, IV hydrocortisone 50 mg every 6 hours, and Kefzol day 5. Labs are reviewed WBCs 17.4, hemoglobin 8.2, hematocrit 25.2, platelets 53, sodium 142, potassium 3.7, chloride 116, CO2 23, BUN 39, creatinine 1.18, gluco se 258. Ionized calcium 4.4. Magnesium 1.8. Today's chest x-ray is unchanged. Wound culture gram stain of the right knee preliminary report shows rare gram positive cocci. 10/13/2024 Patient is seen and evaluated in ICU at bedside; remains on the mechanical ventilator. Discussed with nursing staff. Concerns about elevated blood sugars; patient was placed on home dose of Lantus which did not help much - Blood gases show pO2 72, pCO2 41, and pH is 7.42. - The patient is on propofol at 35 mcg/kg/min, saline at 20 cc an hour, and vital high-protein at 60, with goal of 70. Yesterday, he had a brief spontaneous breathing trial, and he did poorly. Today he will again have a spontaneous breathing trial, of pressure support of 5 and CPAP of 5. He continues on Ancef. White count 18.8, hemoglobin 8.2, hematocrit 25.8, platelet count 78,000. Sodium 144, potassium 4.1, chlorides 117, CO2 26, BUN 47, creatinine 1.18. Glucose is 340. Albumin is 2.1. Previous blood cultures from October 06 show group A streptococci. Chest x-ray shows bibasilar infiltrates. -- For hyperglycemia I will increase dose of Lantus and add insulin lispro every 4 hours; continue with current sliding scale 10/14/2024 Patient is seen in follow-up today continues on Precedex and attempting to wean maintained on mechanical ventilation with an FiO2 of 50% PEEP is 5. Per nursing staff attempting sedation holiday although did not go well yesterday. Patient is maintained on antibiotics with infectious disease following and patient is status post right knee aspiration with preliminary culture showing strep a with positive blood cultures. Patient continues with significant swelling especially the scrotal area maintained on IV Lasix and will continue. No discussion of PEG and trach as of yet and patient remains full code. Prognosis is guarded. 10/15/2024 Patient is seen this morning continues to be in the ICU currently working on weaning FiO2 and undergoing sedation holiday. Patient is eye tracking and following commands and per pulmonary kosher sealer working on extubation today. Will await official report and monitor closely. Patient is continued on antibiotics with infectious disease following. 10/16/2024 Patient is seen in follow-up this morning extubated successfully currently maintained on 6 L high flow nasal cannula. Patient is awake and responding appropriately to questions and commands. Patient is extremely lethargic at times and significantly weak with significant edema noted. Sodium is elevated at 150 and is continued on D5 and water. Blood sugars have been elevated and will adjust insulins accordingly. Patient swallow eval performed and failed awaiting reevaluation with speech. Continue n.p.o. for now. White count remains elevated patient is maintained on antibiotics with infectious disease following. Awaiting repeat cultures. Procalcitonin 1.06. Questions and concerns were answered to the best of my ability with son at the bedside. 10/17/2024 Patient is evaluated today in follow up in the ICU. He was extubated yesterday. Continues on oxygen support on 100% BiPAP at this time. Cultures from the right knee arthroscopy reveals Strep A. Chest xray today reveals no change to the bibasilar opacities. Chest ultrasound reveals right pleural effusion pocket size 6.0 cm and left pleural effusion pocket size of 4.9 cm. Both sides marked for possible thoracentesis. Labs today reveal white blood cell count of 11.8, hgb 7. 5, sodium 146, potassium 3.4, BUN 43, creatinine 1.06. Blood glucose 200s. Continues on IV amiodarone, IV cefepime, IV vancomycin. Patient is in normal sinus rhythm currently heart rate in the 80s. 10/18/2024 Patient evaluated today in follow up in the ICU. He is awake alert oriented continues on BiPAP. He is status post right sided thoracentesis with 400 mL off. Chest xray today reveals stable bilateral lower lobe infiltrate and small pleural effusion. White blood cell count today 10.4. Continues on IV vancomycin and IV cefepime. Remains on IV amiodarone. on IV heparin. Patient remains NPO at this time, speech therapy to follow up today to reassess. 10/19/2024 Patient remains in the ICU. He is on the mechanical ventilator, FiO2 of 50%. Chest x-ray today shows left lower lobe pneumonia and/or atelectasis and pleural effusion. Elian in the left lung base is obscuring the left heart border and the hemidiaphragm has decreased in the interval. White blood cell count today is 8.4, hemoglobin 7.1, sodium 144, BUN of 40, creatinine of 1.43. His viral panel is negative for all viruses checked. 10/20/2024 Patient remains the intensive care unit he is currently on mechanical ventilator with an FiO2 of 50%. He is awake and alert and responding to commands. His chest x-ray reveals continued acute coronary cardiopulmonary disease involving the retrocardiac region with no significant interval change. Repeat sputum reveals Enterobacter he continues on IV cefepime at this time. Hemoglobin level today is 6.7 he will receive 1 unit of packed red blood cells. His creatinine is up to 1.51 today. Continues on oral amiodarone for the atrial fibrillation was taken off of anticoagulation secondary to the decreased hemoglobin. Patient is sedated with propofol at this time. He is also receiving IV Lasix daily prognosis remains guarded. 10/21/2024 Patient remains in the intensive care unit. Remains on the mechanical ventilator. He is currently sedated with propofol. He is alert and following commands. Chest xray unchanged continues to show pneumonia with sputum culture showing enterobacter. He remains on IV cefepime. Hemoglobin better today at 7.8. BUN 42 creatinine 1.67. 10/22/2024 Patient is evaluated today in the intensive care unit. Patient was extubated today. He is awake alert and oriented. He is complaining of some back pain. Has IV dilaudid on board. Chest xray today reveals no evidence of pleural effusion, focal consolidation, or pneumothorax. He remains edematous. Creatinine 1.87 today. On IV lasix which has been increased to BID by nephrology. 3L of urine output in the last 24 hours. 10/23/2024 Patient evaluated today in follow up in the ICU. Currently on 2L of oxygen via nasal cannula with saturations of 99%. Remains on IV cefepime. Chest xray today reveals left lung airspace opacity. Creatinine up to 2.1 today IV lasix has been discontinued. Patient has been placed on normal saline at 75 mls/hr. Speech therapy re consulted for swallow evaluation post extubation. 10/24/2024 Patient evaluated today in follow up remains in the ICU. Patient underwent neuro evaluation today. Brain CT was done revealing no acute bleed or mass effect. Mild age-appropriate senescent changes. Marked calcification of basal artery and significant stenosis cannot be excluded. Mild to moderate fluid in the mastoid air cells bilaterally. BUN 46 creatinine 2.12. Continues on normal saline at 75 mls/hr. Continues on IV cefepime. 10/25/2024 Patient remains in the ICU with multiple consultations following. Patient continues to be encephalopathic with neurology following. Orthopedics to reevaluate the upper extremity weakness and also vascular surgery was consulted as there is concerns of occlusive disease of the left lower extremity with discoloration of the toes. Patient continues on antibiotics and continues to require 2 L of oxygen. Patient is maintained on dysphagia ground diet and strongly recommend aspiration precautions and supervision with meals along with head of the bed elevated 30 to 45 degrees at all times. Patient is currently afebrile with no reports of chest pain or shortness of breath. 1 dose of IV Lasix was given today. 10/26/2024 Patient remains in the ICU. Continues to be confused and more lethargic today. Neurology following and felt this was encephalopathy. He is not using this right arm and he does have pain when touching that arm. It is edematous.Vascular evalated the patient for the left diabetic foot wounds which have dry gangrene and did not feel there was ischemia to the leg. He remains on 2L of oxygen via nasal cannula. Labs today hemoglobin 7.3, BUN 51, creatinine 2.66. Remains on IV cefepime which can also cause confusion. Review of systems: Constitutional: reports of fatigue, no fever, or chills Cardiovascular: No reports of chest pain or palpitations Respiratory: No reports of shortness of breath with continued cough GI: No reports of nausea, vomiting, or diarrhea, : No reports of dysuria or retention Neurovascular: reports of generalized weakness and significant swelling of upper and lower extremities All medications have been reviewed Physical exam: Gen: This is a 64-year-old male who is maintained on 2 L nasal cannula., well- developed, elderly appearing, ill-appearing, appears older than stated age HEENT: Head is atraumatic, normocephalic. Pupils equal, round. Sclerae is a nicteric. NECK: Supple. No JVD. No lymphadenopathy. No thyromegaly. LUNGS: Diminished breath sounds bilaterally with some bronchial congestion and coarse scattered rhonchi. No intercostal retractions. HEART: S1, S2 are muffled ABDOMEN: Soft. Somewhat taut, positive bowel sounds are present. No masses. No tenderness. Significant scrotal edema noted, minimally improved EXTREMITIES: Bilateral upper and lower extremity edema noted. No calf tenderness. Generalized upper and lower extremity edema along with scrotal swelling noted Right upper extremity weakness. NEUROLOGICAL: Patient is awake, alert and oriented x 2, diffusely weak Assessment: -Chronic alcohol abuse with acute alcohol withdrawal syndrome; Thiamine and protonix. No longer going through acute withdrawals. -Altered mental status acute metabolic and septic encephalopathy. Brain CT reveals no acte stroke. -Acute hypoxic respiratory failure was intubated following knee surgery on 10/10 and successfully extubated on 10/15/24. re-intubated on 10/18/2024 and now extubated on 10/22/24. Status post bronchoscopy on 10/18. -Congestive heart failure with an EF of 45%, diastolic dysfunction -Paroxysmal atrial fibrillation transitioned to oral amiodarone Currently on subq heparin. Was taken off IV heparin due to decreased hemoglobin -Acute blood loos anemia requiring infusion. -Right sided pleural effusion status post right sided thoracentesis with 400 mL off. -Rhabdomyolysis secondary to immobility due to fall. Improving with IV hydration. We will continue to monitor strict STERLING's, daily weights, renal fu nction electrolytes -Acute kidney injury secondary to ATN due to to septic shock and rhabdomyolysis. Was initially improving and now with worsening renal function while on hemodialysis. -Relative adrenal insufficiency. On IV hydrocortisone. -Transaminitis. Improving. -Streptococcus group A bacteremia. Currently on cefazolin per ID recommendation; continue to monitor CBC, CRP and procalcitonin. Possibly secondary to right knee infection -Right knee pain with swelling, status post aspiration along with arthroscopic lavage, culture showing strep a with septic arthritis -Hyponatremia, likely hypovolemic; resolved. -Episode of hypernatremia treated with D5W, sodium normalized. This was due to free water deficit. 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 -History of coronary artery disease with previous catheterization and stent placement. -Hypertension; currently not on any antihypertensive medication. -Sepsis, present on admission possibly secondary to right knee arthritis with bacteremia GI prophylaxis DVT prophylaxis No code Plan: Patient continues in the ICU with multiple consultations following maintained on IV antibiotics status post arthroscopy with lavage of the right knee and final cultures showing Strep A. Repeat blood cultures thus far are negative and will continue on IV antibiotics with ID following He is now s/p right sided thoracentesis with 400 mL of fluid off. Sent for cytology. Continues on 2 L and did receive a dose of IV Lasix today Sputum culture showing Enterobacter patient is status post bronchoscopy sputum cultures are now negative continues on IV cefepime Speech therapy has been reconsulted post extubation and is maintained on a dysphagia ground diet and strongly recommend aspiration precautions with supervision with meals and out of the bed elevated 30 to 45 degrees at all times Blood sugars variable and have been elevated, will continue sliding scale and also adjust long-acting slightly as blood sugars have been consistently remaining over the 200s monitor closely for hypoglycemia Levemir was decreased to 7 units BID as patient did have a blood glucose level drop into the 30s. discussion was had with family at the bedside as well as patient and will likely need rehab on discharge. Follow-up on repeat labs and monitor kidney functions and electrolytes closely. Due to the worsening renal function, lasix has been discontinued and patient has been started on normal saline at 70 mls./hr. Physical therapy and occupational therapy have been re-consulted. Overall prognosis remains guarded at this time The impression and plan of care has been dictated by Sharlene Pendleton, Nurse Practitioner as directed. Dr. Randall MD I have performed a history and examination and MDM of this patient, discussed the same with the dictator, and agree with the dictator's assessment and plan as written ,documented as a scribe. Based on total visit time, I have performed more than 50% of the visit. Objective - Vital Signs Vital signs: Vital Signs Temp 98.7 F 10/27/24 04:00 Pulse 93 10/27/24 07:00 Resp 21 10/27/24 07:00 BP 106/67 10/27/24 07:00 Pulse Ox 92 L 10/27/24 07:00 FiO2 40 10/22/24 09:56 Intake & Output 10/26/24 10/27/24 10/27/24 18:59 06:59 18:59 Intake Total 1110 1197.5 75 Output Total 300 325 25 Balance 810 872.5 50 Weight 93 kg Intake: IV 140 1127.5 75 0.9 Normal Saline 40 57.5 5 Cefepime 2 gm In Sodium 100 Chloride 0.9% 100 ml @ 25 mls/hr IVPB Q12HR [facility] Rx #:[id number] Ertapenem 1 gm In Sodium 50 Chloride 0.9% 50 ml @ 100 mls/hr IVPB HS [facility] Rx#: [id number] Sodium Chloride 0.9% 1, 770 70 000 ml @ 70 mls/hr IV . [id number] [facility] Rx#:[id number] Sodium Chloride 0.9% 250 250 ml @ 999 mls/hr IV .Q16M [facility] Rx#:[id number] Intake, IV Titration 630 70 Amount Sodium Chloride 0.9% 1, 630 70 000 ml @ 70 mls/hr IV . [id number] [facility] Rx#:[id number] Oral 340 Output: Urine 300 325 25 Other: Voiding Method Indwelling Catheter Indwelling Catheter ABP, PAP, CO, CI - Last Documented Arterial Blood Pressure 128/42 - Labs CBC & Chem 7: 10/27/24 03:57 10/27/24 03:57 Labs: Abnormal Lab Results - Last 24 Hours (Table) 10/26/24 10/26/24 10/26/24 Range/Units 11:13 13:16 16:26 RBC (4.30-5.90) m/uL Hgb (13.0-17.5) gm/dL Hct (39.0-53.0) % MCV (80.0-100.0) fL Macrocytosis Chloride (98-107) mmol/L Carbon Dioxide (22-30) mmol/L BUN (9-20) mg/dL Creatinine (0.66-1.25) mg/dL Glucose (74-99) mg/dL POC Glucose (mg/dL) 163 H 172 H 184 H (70-110) mg/dL Magnesium (1.6-2.3) mg/dL 10/26/24 10/27/24 10/27/24 Range/Units 23:34 03:57 03:57 RBC 2.12 L (4.30-5.90) m/uL Hgb 7.4 L (13.0-17.5) gm/dL Hct 23.1 L (39.0-53.0) % MCV 109.0 H (80.0-100.0) fL Macrocytosis Marked A Chloride 115 H (98-107) mmol/L Carbon Dioxide 21 L (22-30) mmol/L BUN 54 H (9-20) mg/dL Creatinine 3.02 H (0.66-1.25) mg/dL Glucose 207 H (74-99) mg/dL POC Glucose (mg/dL) 147 H (70-110) mg/dL Magnesium 1.5 L (1.6-2.3) mg/dL 10/27/24 Range/Units 06:03 RBC (4.30-5.90) m/uL Hgb (13.0-17.5) gm/dL Hct (39.0-53.0) % MCV (80.0-100.0) fL Macrocytosis Chloride (98-107) mmol/L Carbon Dioxide (22-30) mmol/L BUN (9-20) mg/dL Creatinine (0.66-1.25) mg/dL Glucose (74-99) mg/dL POC Glucose (mg/dL) 281 H (70-110) mg/dL Magnesium (1.6-2.3) mg/dL Assessment and Plan Time with Patient: Less than 30
[2024-10-27] MEDS: MAGNESIUM SULFATE-D5W PMX 1 GM in DEXTROSE/WATER 1 100ML.BAG IVPB SCH (08:15)
[2024-10-27] MEDS: FUROSEMIDE 10 MG/ML 10 ML VIAL IV STA (09:11)
[2024-10-27 11:08] LABS: Glucose,Whole Blood 220 mg/dL (70-110)
--- NOTE | 2024-10-27 11:30 | P.PN ---
Subjective Progress Note Date: 10/27/24 Patient is seen in follow-up for acute kidney injury. Renal function fairly stable. Nonoliguric. Extubated October 22, 2024. Sitting up in chair, less confused today. Urine output decreasing yesterday. Vital signs are stable. General: No acute distress. awake LUNGS: Scattered rhonchi. HEART: Rate and Rhythm are regular. ABDOMEN: No distention. EXTREMITITES: 2+ edema. Scrotal edema noted. Objective - Vital Signs Vital signs: Vital Signs Temp 98.7 F 10/27/24 04:00 Pulse 93 10/27/24 07:00 Resp 21 10/27/24 07:00 BP 106/67 10/27/24 07:00 Pulse Ox 92 L 10/27/24 07:00 FiO2 40 10/22/24 09:56 Intake & Output 10/26/24 10/27/24 10/27/24 18:59 06:59 18:59 Intake Total 1110 1197.5 75 Output Total 300 325 25 Balance 810 872.5 50 Weight 93 kg Intake: IV 140 1127.5 75 0.9 Normal Saline 40 57.5 5 Cefepime 2 gm In Sodium 100 Chloride 0.9% 100 ml @ 25 mls/hr IVPB Q12HR [facility] Rx #:[id number] Ertapenem 1 gm In Sodium 50 Chloride 0.9% 50 ml @ 100 mls/hr IVPB HS [facility] Rx#: [id number] Sodium Chloride 0.9% 1, 770 70 000 ml @ 70 mls/hr IV . [id number] [facility] Rx#:[id number] Sodium Chloride 0.9% 250 250 ml @ 999 mls/hr IV .Q16M [facility] Rx#:[id number] Intake, IV Titration 630 70 Amount Sodium Chloride 0.9% 1, 630 70 000 ml @ 70 mls/hr IV . [id number] [facility] Rx#:[id number] Oral 340 Output: Urine 300 325 25 Other: Voiding Method Indwelling Catheter Indwelling Catheter ABP, PAP, CO, CI - Last Documented Arterial Blood Pressure 128/42 - Labs CBC & Chem 7: 10/27/24 03:57 10/27/24 03:57 Labs: Abnormal Lab Results - Last 24 Hours (Table) 12/07/24 12/07/24 12/07/24 Range/Units 11:13 13:16 16:26 RBC (4.30-5.90) m/uL Hgb (13.0-17.5) gm/dL Hct (39.0-53.0) % MCV (80.0-100.0) fL Macrocytosis Chloride (98-107) mmol/L Carbon Dioxide (22-30) mmol/L BUN (9-20) mg/dL Creatinine (0.66-1.25) mg/dL Glucose (74-99) mg/dL POC Glucose (mg/dL) 163 H 172 H 184 H (70-110) mg/dL Magnesium (1.6-2.3) mg/dL 10/26/24 10/27/24 10/27/24 Range/Units 23:34 03:57 03:57 RBC 2.12 L (4.30-5.90) m/uL Hgb 7.4 L (13.0-17.5) gm/dL Hct 23.1 L (39.0-53.0) % MCV 109.0 H (80.0-100.0) fL Macrocytosis Marked A Chloride 115 H (98-107) mmol/L Carbon Dioxide 21 L (22-30) mmol/L BUN 54 H (9-20) mg/dL Creatinine 3.02 H (0.66-1.25) mg/dL Glucose 207 H (74-99) mg/dL POC Glucose (mg/dL) 147 H (70-110) mg/dL Magnesium 1.5 L (1.6-2.3) mg/dL 10/27/24 Range/Units 06:03 RBC (4.30-5.90) m/uL Hgb (13.0-17.5) gm/dL Hct (39.0-53.0) % MCV (80.0-100.0) fL Macrocytosis Chloride (98-107) mmol/L Carbon Dioxide (22-30) mmol/L BUN (9-20) mg/dL Creatinine (0.66-1.25) mg/dL Glucose (74-99) mg/dL POC Glucose (mg/dL) 281 H (70-110) mg/dL Magnesium (1.6-2.3) mg/dL Assessment and Plan Assessment: 1. Acute kidney injury secondary to ATN secondary to septic shock and rhabdomyolysis. Creatinine 3.18 on admission and improved to 0.89 dated October 16, 2024 -worsened with diuresis. Creatinine worsening at 3.0 today. No hydronephrosis noted on kidney ultrasound. GN work-up was negative. Oliguric past 24hrs. 2. Rhabdomyolysis secondary to immobility. Resolved. 3. Strep bacteremia on antibiotics. Being treated for pneumonia. Status post bronchoscopy October 18, 2024. 4. Anion gap metabolic acidosis secondary to acute kidney injury and lactic acidosis. Now due to IV fluids. Status post bicarb drip. 5. Hypernatremia from lack of oral water intake. Status post D5W. Improved. 6. Hypomagnesemia from poor intake. 7. History of alcohol abuse. 8. Hypocalcemia secondary to acute kidney injury as well as intracellular shifting from bicarb. PTH 112. Vitamin D level 26.5. On vitamin D. Corrected calcium in the normal range. 9. A-fib with RVR maintained on amiodarone and Lopressor. 10. Volume overload. 11. Acute blood loss anemia status post blood transfusion this admission. Hemoglobin stable at 7.7 today. 12. Hypokalemia from poor intake and hypomagnesemia. Plan: No improvement with IVF, given Lasix this monring with increased urine output noted. Discontinue IVF Renal function likely worsening due to episodes of hypotension. Magnesium replacement ordered Continue to monitor renal function and urine output. Urine eosinophils negative. Complements normal. Hepatitis panel negative. YVONNE and double-stranded DNA antibody and ANCA negative. If urine output remains low may need HD in near future.
--- NOTE | 2024-10-27 12:29 | P.PN ---
Subjective Progress Note Date: 10/27/24 Principal diagnosis: Acute hypoxic respiratory failure with left lower lobe pneumonia and significant mucous plugs with metabolic encephalopathy as well as septic shock Patient is a 64-year-old male who is being seen in the ICU due to hypovolemic shock and rhabdomyolysis. He is a poor historian due to altered mental status and unresponsiveness. All history is obtained from the chart. He initially presented to the emergency department after being found facedown on the ground with a contusion to his forehead and abrasions to his knee and left toes. She stated that he had been having nausea and vomiting for a day prior to being found down. He was noted to have diarrhea as well. Patient is a daily drinker and consumes about a fifth per day according to the notes he has not drank for the 2 days prior to this admission. He also has a history of type 1 diabetes mellitus. Initial EKG showed sinus tachycardia. Head/cervical spine CT showed no acute intracranial process and no acute fracture or traumatic subluxation of the cervical spine. Initial chest x-ray showed right middle lobe scarring/atelectasis, no acute pulmonary process. He had received 4 L of normal saline. Initial labs showed CK level of 18,113, WBCs 10.7, hemoglobin 12.5, sodium 126, creatinine 3.18 lactic acid 6.9, AST 401, ALT 65. Preliminary blood culture showed gram-positive cocci and patient was started on vancomycin. On 10/20/2024, the patient remains sedated on propofol. Arousable and moving all 4 extremities. He is status post reintubation on 10/18/2024 and is status post bronchoscopy x 2 with evacuation of mucous plugs from his left lower lobe. The patient has Enterobacter erogenous in his sputum and the patient remains on IV cefepime. This morning, he remains on assist-control mode with rate of 14, tidal volume of 500, FiO2 of 50% with a PEEP of 10. Blood gas shows significant improvement oxygenation and the pO2 is up to 153 and a pH is at 7.4 with a pCO2 of 41. The patient remains on low-dose norepinephrine at 0.04 mcg/kg/min. He remains on IV heparin for paroxysmal A-fib. Hemoglobin dropped down to 6.7 and the patient is going to receive a unit of packed RBC. Creatinine is up to 1.5. He remains on vital high-protein at rate of 40 cc an hour. Fluid balance is +1.2 L over the past 24 hours. He is afebrile. Patient was seen today on 10/21/24, patient remains in the ICU, patient is on mechanical ventilation with assist-control rate of 14 tidal volume 500 FiO2 40% and PEEP of 6 ABG showed a pO2 of 27 pCO2 34 pH of 7.47. No changes were made in vent settings. Patient remains on propofol at 40 mcg/kg/min, received a unit of packed RBCs yesterday for low hemoglobin. Remains on vital HP patient is receiving cefepime for Enterobacter around [place] and his sputum. Patient had strep a in the right knee joint patient is covered with cefepime remains on Lasix 40 mg IV push daily his initial presentation to the hospital was when he was found facedown on the ground with a contusion on his forehead and abrasion on his left knee as well as left toes. Patient is known to be a heavy drinker, consumes 1/5/day according to the notes in the chart. Patient is also known to have type 1 diabetes, intubation on 10/10/2024 following his knee surgery patient was extubated on 10/15, however he had to be reintubated on 10/18 bronchoscopy was done for extensive pneumonia involving the left lower lobe and mucous plugs were suctioned. Patient also had another bronchoscopy on 09/22 with improvement in his chest x-ray findings and left lower lobe pneumonia. Sputum cultures have been positive for Enterobacter allergies. Has been on IV cefepime WBC count today 6.3 hemoglobin 7.8 metabolic profile is normal BUN is 42 creatinine 1.67. Chest x-ray continues to show bibasilar airspace disease left lower lobe more so than right lower lobe Patient was eval today and 10/22/2024, patient remains in the ICU, intubated and mechanically ventilated, on assist-control rate of 14 tidal volume 500 FiO2 40% PEEP of 6 ABG showed a pO2 of 93 pCO2 34 pH of 7.50 peak airway pressure is 23 Plateau pressure is 16 continues to have some clear yellow sputum that is easily suctioned will not require bronchoscopy today considering the easily suctioned the mucus secretions. Patient is on propofol at 40 mcg/kg/min vital HP at 40 mL/h IV fluid at KVO patient remains on antibiotics in the form of cefepime, he has Enterococcus in the sputum and he had strep pain from his knee. Leg susi on Lasix 40 mg twice daily chest x-ray is showing slight improvement in his bibasilar pneumonia hence I am not recommending bronchoscopy today I will try to give the patient a trial of weaning if possible. Labs today were reviewed WBC count is 5.8 hemoglobin 7.9 platelets are 306, electrolytes are normal BUN is 43 creatinine 1.85 Patient was seen today on 10/23/2024, remains in the ICU, however the patient was extubated yesterday and so far he seems to be tolerating the extubation well. Patient is on 3 L nasal cannula, he is alert, but extremely slow. And complaining of right upper extremity swelling and pain. Considering the patient had a fall I will recommend x-rays of the right upper extremity and I would recommend ultrasound/venous Doppler of the right upper extremity. Patient continues to have pneumonia based on chest x-ray, left lower lobe is quite concerning patient does not have a very good cough. Hoping he does not require bronchoscopy again. In the meantime he is on cefepime. Patient had worsening of his renal functioning and I discontinued his Lasix today. He is on subcu heparin for DVT prophylax. And I do not believe the patient is quite ready to be discharged out of the ICU yet, I will keep him in the ICU for another day. And follow-up chest x-ray will be done in a.m. His WBC count is 6 hemoglobin 8.2 electrolytes are normal BUN is 46 creatinine 2.19 Seen today on 10/24/2024, patient remains in the ICU, off mechanical ventilation, on2 L nasal cannula with O2 saturation between 94 to 97%. Patient is confused, he is not in any form of respiratory distress.WBC is 5.8 hemoglobin 7.6 electrolytes are normal BUN is 46 creatinine 2.22, slightly improved compared to yesterday after holding his diuretics chest x-ray is showing slight improvement in his pneumonia. However what seems to be quite concerning to me is his mental status patient seems to be confused, and continues to have difficulty moving his right upper extremity workup on the right upper extremity has been negative including x-rays and Doppler. Patient was seen today on 10/25/2024, patient remains in the ICU, mental status is basically about the same, patient remains encephalopathic, continues to have difficulty raising his right upper extremity hence orthopedics was consulted. Chest x-ray continues to show bilateral pneumonia left a bit worse than right, patient is on antibiotics for Enterobacter erogenous noted previously on his sputum. Patient is able to clear his secretions on his own, he does have a vigorous cough, his overall mental status seems to be a bit concerning, neurology was consulted on the patient today yesterday, felt that the patient may have metabolic encephalopathy. In addition to this the patient has some ischemic changes noted in the distal aspect of his left fourth toe and at the base of his big toe, hence I recommended vascular surgery evaluation. He does have good pulses by Doppler on that same foot. Labs today show WBC is 5.4 hemoglobin 7.7 electrolytes are normal BUN is 47 creatinine 2.30 Patient seen today on 10/26/2024, remains in ICU, remains on 4 L nasal cannula mentation is about the same, remains encephalopathic but follows simple instructions, continues to have issues with his right upper extremity patient is on IV fluid at KVO however I increased IV fluid today to 70 cc/h as his renal function seems to be getting a bit worse. And I am recommending that we stop diuretics altogether. Patient remains on cefepime for Enterobacter in his sputum. Chest x-ray continues show bilateral pneumonia minimal improvement noted. But continues to have significant infiltrates specially in the left lower lobe. WBC is 5.3 hemoglobin 7.3 basic metabolic profile is normal BUN is up to 51 creatinine up to 2.66 Patient was seen today on 10/27/2024, remains in the ICU remains on 4 L nasal cannula remains on IV fluid at 75 cc/h his urine output seems to be marginal down to 15/20 cc/h hence I am recommending a low-dose of Lasix 60 mg IV push x 1. Patient is becoming a bit more edematous hoping that he will improve with gentle diuresis. Renal functioning seems to be getting worse over the last few days in spite of holding the Lasix and inspite of hydrating the patient cautiously patient remains on Invanz for his Enterococcus erogenous in the sputum this is being addressed by infectious disease, chest x-ray continues show bilateral infiltrates left more so than right patient also has small bilateral pleural effusions. Lasix was given today and he remains on antibiotics for his underlying pneumonia. Objective - Vital Signs Vital signs: Vital Signs Temp 98 F 10/27/24 08:00 Pulse 76 10/27/24 11:00 Resp 21 10/27/24 11:00 BP 94/68 10/27/24 11:00 Pulse Ox 95 10/27/24 11:00 FiO2 40 10/22/24 09:56 Intake & Output 10/26/24 10/27/24 10/27/24 18:59 06:59 18:59 Intake Total 1110 1197.5 710 Output Total 300 325 285 Balance 810 872.5 425 Weight 93 kg Intake: IV 140 1127.5 290 0.9 Normal Saline 40 57.5 10 Cefepime 2 gm In Sodium 100 Chloride 0.9% 100 ml @ 25 mls/hr IVPB Q12HR [facility] Rx #:[id number] Ertapenem 1 gm In Sodium 50 Chloride 0.9% 50 ml @ 100 mls/hr IVPB HS [facility] Rx#: [id number] Sodium Chloride 0.9% 1, 770 280 000 ml @ 70 mls/hr IV . [id number] [facility] Rx#:[id number] Sodium Chloride 0.9% 250 250 ml @ 999 mls/hr IV .Q16M [facility] Rx#:[id number] Intake, IV Titration 630 70 200 Amount Magnesium Sulfate-D5w Pmx 200 1 gm In Dextrose/Water 1 100ml.bag @ 100 mls/hr IVPB Q1H [facility] Rx#: [id number] Sodium Chloride 0.9% 1, 630 70 000 ml @ 70 mls/hr IV . [id number] [facility] Rx#:[id number] Oral 340 220 Output: Urine 300 325 285 Other: Voiding Method Indwelling Catheter Indwelling Catheter Indwelling Catheter # Bowel Movements 1 ABP, PAP, CO, CI - Last Documented Arterial Blood Pressure 128/42 - Exam Physical examination: Reveals 64-year-old white male on 4 L nasal cannula, not in distress. Seems to be less confused today Head exam was generally normal. There was no scleral icterus or corneal arcus. Mucous membranes were moist. Neck supple. Full range of motion. No adenopathy thyromegaly or neck vein distention. Cardiovascular examination reveals regular rhythm rate. S1-S2 normal. No S3 or S4. Lungs diminished breath sounds at the bases no rhonchi no wheezes Abdomen soft, without bowel sounds. No masses or tenderness. Extremities no clubbing or cyanosis, right knee surgical wound site is dry clean and intact. Right knee is slightly swollen. Surgical sites are clean .right upper extremity is swollen and tender but not erythematous and no deformity noted. Ischemic changes noted on the left fourth toe and the base of the big toe left foot skin reveals multiple abrasions and bruises. Neurologically, awake, less confusion noted today Psychiatric: normal mood confused mental status - Labs CBC & Chem 7: 10/27/24 03:57 10/27/24 03:57 Labs: Abnormal Lab Results - Last 24 Hours (Table) 10/26/24 10/26/24 10/26/24 Range/Units 13:16 16:26 23:34 RBC (4.30-5.90) m/uL Hgb (13.0-17.5) gm/dL Hct (39.0-53.0) % MCV (80.0-100.0) fL Macrocytosis Chloride (98-107) mmol/L Carbon Dioxide (22-30) mmol/L BUN (9-20) mg/dL Creatinine (0.66-1.25) mg/dL Glucose (74-99) mg/dL POC Glucose (mg/dL) 172 H 184 H 147 H (70-110) mg/dL Magnesium (1.6-2.3) mg/dL Creatine Kinase (55-170) U/L 10/27/24 10/27/24 10/27/24 Range/Units 03:57 03:57 03:57 RBC 2.12 L (4.30-5.90) m/uL Hgb 7.4 L (13.0-17.5) gm/dL Hct 23.1 L (39.0-53.0) % MCV 109.0 H (80.0-100.0) fL Macrocytosis Marked A Chloride 115 H (98-107) mmol/L Carbon Dioxide 21 L (22-30) mmol/L BUN 54 H (9-20) mg/dL Creatinine 3.02 H (0.66-1.25) mg/dL Glucose 207 H (74-99) mg/dL POC Glucose (mg/dL) (70-110) mg/dL Magnesium 1.5 L (1.6-2.3) mg/dL Creatine Kinase <20 L (55-170) U/L 10/27/24 10/27/24 Range/Units 06:03 11:04 RBC (4.30-5.90) m/uL Hgb (13.0-17.5) gm/dL Hct (39.0-53.0) % MCV (80.0-100.0) fL Macrocytosis Chloride (98-107) mmol/L Carbon Dioxide (22-30) mmol/L BUN (9-20) mg/dL Creatinine (0.66-1.25) mg/dL Glucose (74-99) mg/dL POC Glucose (mg/dL) 281 H 220 H (70-110) mg/dL Magnesium (1.6-2.3) mg/dL Creatine Kinase (55-170) U/L Assessment and Plan Assessment: Impression: Acute hypoxic respiratory failure, extubated on 10/22/2024. Acute left lower lobe pneumonia Acute metabolic encephalopathy Septic shock, resolved Right-sided pleural effusion requiring thoracentesis and 400 cc of fluid removed Septic arthritis of the right knee requiring surgery cultures positive for strep A, patient was transitioned from cefepime to Invanz by infectious disease mostly because of the sputum cultures showing Enterobacter erogenous Chronic back pain may need MRI of the lumbosacral spine Chronic alcohol abuse and acute alcohol withdrawal syndrome recovered status post arthroscopy and arthroscopic lavage and debridement of right knee with partial medial meniscectomy and medial femoral condyle and medial tibial plateau chondroplasty this was done on 10/06/2024 Acute kidney injury,, with worsening oliguria patient will be given a challenge dose of Lasix 60 mg IV push today Acute on chronic anemia History of underlying coronary artery disease and previous stent placement History of LV dysfunction and cardiomyopathy with ejection fraction of 45% Paroxysmal atrial fibrillation currently patient is in sinus rhythm. On amiodarone and heparin drip Type 1 diabetes GERD without esophagitis Dyslipidemia History of DE History of degenerative joint disease Right upper extremity swelling and pain with limitation in range of motion, to be seen by orthopedic Suspect peripheral vessel occlusive disease and ischemic changes seen by vascular Recommendation: Continue to monitor in the ICU Continue antibiotics/Invanz Encourage incentive spirometry Continue oxygen via nasal cannula and titrate accordingly Continue antibiotics/Invanz IV fluid back to KVO and trial of diuretics Subcu heparin DVT prophylaxis Continue GI prophylaxis Continue insulin Continue IV Protonix Orthopedics to evaluate for right upper extremity pain consult is pending Will continue to follow Time with Patient: Less than 30
--- NOTE | 2024-10-27 12:39 | P.PN ---
Subjective Progress Note Date: 10/27/24 64-year-old male who is being seen in the ICU due to hypovolemic shock and rhabdomyolysis. He is a poor historian due to altered mental status and unresponsiveness. All history is obtained from the chart. He initially presented to the emergency department after being found facedown on the ground with a contusion to his forehead and abrasions to his knee and left toes. She stated that he had been having nausea and vomiting for a day prior to being found down. He was noted to have diarrhea as well. Patient is a daily drinker and consumes about a fifth per day according to the notes he has not drank for the 2 days prior to this admission. He also has a history of type 1 diabetes mellitus. Initial EKG showed sinus tachycardia. Head/cervical spine CT showed no acute intracranial process and no acute fracture or traumatic subluxation of the cervical spine. Initial chest x-ray showed right middle lobe scarring/atelectasis, no acute pulmonary process. He had received 4 L of normal saline. Initial labs showed CK level of 18,113, WBCs 10.7, hemoglobin 12.5, sodium 126, creatinine 3.18 lactic acid 6.9, AST 401, ALT 65. Preliminary blood culture showed gram-positive cocci and patient was started on vancomycin. 24-hour interval change 10/12/2024 -- Patient is evaluated in the ICU. He remains intubated on mechanical ventilation - ABG shows pH 7.42, pCO2 38, pO2 74. - He is maintained on vasopressin 0.02 units/min, normal saline at 20 cc/h, IV hydrocortisone 50 mg every 6 hours, and Kefzol day 5. Labs are reviewed WBCs 17.4, hemoglobin 8.2, hematocrit 25.2, platelets 53, sodium 142, potassium 3.7, chloride 116, CO2 23, BUN 39, creatinine 1.18, gluco se 258. Ionized calcium 4.4. Magnesium 1.8. Today's chest x-ray is unchanged. Wound culture gram stain of the right knee preliminary report shows rare gram positive cocci. 10/13/2024 Patient is seen and evaluated in ICU at bedside; remains on the mechanical ventilator. Discussed with nursing staff. Concerns about elevated blood sugars; patient was placed on home dose of Lantus which did not help much - Blood gases show pO2 72, pCO2 41, and pH is 7.42. - The patient is on propofol at 35 mcg/kg/min, saline at 20 cc an hour, and vital high-protein at 60, with goal of 70. Yesterday, he had a brief spontaneous breathing trial, and he did poorly. Today he will again have a spontaneous breathing trial, of pressure support of 5 and CPAP of 5. He continues on Ancef. White count 18.8, hemoglobin 8.2, hematocrit 25.8, platelet count 78,000. Sodium 144, potassium 4.1, chlorides 117, CO2 26, BUN 47, creatinine 1.18. Glucose is 340. Albumin is 2.1. Previous blood cultures from October 06 show group A streptococci. Chest x-ray shows bibasilar infiltrates. -- For hyperglycemia I will increase dose of Lantus and add insulin lispro every 4 hours; continue with current sliding scale 10/14/2024 Patient is seen in follow-up today continues on Precedex and attempting to wean maintained on mechanical ventilation with an FiO2 of 50% PEEP is 5. Per nursing staff attempting sedation holiday although did not go well yesterday. Patient is maintained on antibiotics with infectious disease following and patient is status post right knee aspiration with preliminary culture showing strep a with positive blood cultures. Patient continues with significant swelling especially the scrotal area maintained on IV Lasix and will continue. No discussion of PEG and trach as of yet and patient remains full code. Prognosis is guarded. 10/15/2024 Patient is seen this morning continues to be in the ICU currently working on weaning FiO2 and undergoing sedation holiday. Patient is eye tracking and following commands and per pulmonary banana room cutter working on extubation today. Will await official report and monitor closely. Patient is continued on antibiotics with infectious disease following. 10/16/2024 Patient is seen in follow-up this morning extubated successfully currently maintained on 6 L high flow nasal cannula. Patient is awake and responding appropriately to questions and commands. Patient is extremely lethargic at times and significantly weak with significant edema noted. Sodium is elevated at 150 and is continued on D5 and water. Blood sugars have been elevated and will adjust insulins accordingly. Patient swallow eval performed and failed awaiting reevaluation with speech. Continue n.p.o. for now. White count remains elevated patient is maintained on antibiotics with infectious disease following. Awaiting repeat cultures. Procalcitonin 1.06. Questions and concerns were answered to the best of my ability with son at the bedside. 10/17/2024 Patient is evaluated today in follow up in the ICU. He was extubated yesterday. Continues on oxygen support on 100% BiPAP at this time. Cultures from the right knee arthroscopy reveals Strep A. Chest xray today reveals no change to the bibasilar opacities. Chest ultrasound reveals right pleural effusion pocket size 6.0 cm and left pleural effusion pocket size of 4.9 cm. Both sides marked for possible thoracentesis. Labs today reveal white blood cell count of 11.8, hgb 7. 5, sodium 146, potassium 3.4, BUN 43, creatinine 1.06. Blood glucose 200s. Continues on IV amiodarone, IV cefepime, IV vancomycin. Patient is in normal sinus rhythm currently heart rate in the 80s. 10/18/2024 Patient evaluated today in follow up in the ICU. He is awake alert oriented continues on BiPAP. He is status post right sided thoracentesis with 400 mL off. Chest xray today reveals stable bilateral lower lobe infiltrate and small pleural effusion. White blood cell count today 10.4. Continues on IV vancomycin and IV cefepime. Remains on IV amiodarone. on IV heparin. Patient remains NPO at this time, speech therapy to follow up today to reassess. 10/19/2024 Patient remains in the ICU. He is on the mechanical ventilator, FiO2 of 50%. Chest x-ray today shows left lower lobe pneumonia and/or atelectasis and pleural effusion. Elian in the left lung base is obscuring the left heart border and the hemidiaphragm has decreased in the interval. White blood cell count today is 8.4, hemoglobin 7.1, sodium 144, BUN of 40, creatinine of 1.43. His viral panel is negative for all viruses checked. 10/20/2024 Patient remains the intensive care unit he is currently on mechanical ventilator with an FiO2 of 50%. He is awake and alert and responding to commands. His chest x-ray reveals continued acute coronary cardiopulmonary disease involving the retrocardiac region with no significant interval change. Repeat sputum reveals Enterobacter he continues on IV cefepime at this time. Hemoglobin level today is 6.7 he will receive 1 unit of packed red blood cells. His creatinine is up to 1.51 today. Continues on oral amiodarone for the atrial fibrillation was taken off of anticoagulation secondary to the decreased hemoglobin. Patient is sedated with propofol at this time. He is also receiving IV Lasix daily prognosis remains guarded. 10/21/2024 Patient remains in the intensive care unit. Remains on the mechanical ventilator. He is currently sedated with propofol. He is alert and following commands. Chest xray unchanged continues to show pneumonia with sputum culture showing enterobacter. He remains on IV cefepime. Hemoglobin better today at 7.8. BUN 42 creatinine 1.67. 10/22/2024 Patient is evaluated today in the intensive care unit. Patient was extubated today. He is awake alert and oriented. He is complaining of some back pain. Has IV dilaudid on board. Chest xray today reveals no evidence of pleural effusion, focal consolidation, or pneumothorax. He remains edematous. Creatinine 1.87 today. On IV lasix which has been increased to BID by nephrology. 3L of urine output in the last 24 hours. 10/23/2024 Patient evaluated today in follow up in the ICU. Currently on 2L of oxygen via nasal cannula with saturations of 99%. Remains on IV cefepime. Chest xray today reveals left lung airspace opacity. Creatinine up to 2.1 today IV lasix has been discontinued. Patient has been placed on normal saline at 75 mls/hr. Speech therapy re consulted for swallow evaluation post extubation. 10/24/2024 Patient evaluated today in follow up remains in the ICU. Patient underwent neuro evaluation today. Brain CT was done revealing no acute bleed or mass effect. Mild age-appropriate senescent changes. Marked calcification of basal artery and significant stenosis cannot be excluded. Mild to moderate fluid in the mastoid air cells bilaterally. BUN 46 creatinine 2.12. Continues on normal saline at 75 mls/hr. Continues on IV cefepime. 10/25/2024 Patient remains in the ICU with multiple consultations following. Patient continues to be encephalopathic with neurology following. Orthopedics to reevaluate the upper extremity weakness and also vascular surgery was consulted as there is concerns of occlusive disease of the left lower extremity with discoloration of the toes. Patient continues on antibiotics and continues to require 2 L of oxygen. Patient is maintained on dysphagia ground diet and strongly recommend aspiration precautions and supervision with meals along with head of the bed elevated 30 to 45 degrees at all times. Patient is currently afebrile with no reports of chest pain or shortness of breath. 1 dose of IV Lasix was given today. 10/26/2024 Patient remains in the ICU. Continues to be confused and more lethargic today. Neurology following and felt this was encephalopathy. He is not using this right arm and he does have pain when touching that arm. It is edematous.Vascular evalated the patient for the left diabetic foot wounds which have dry gangrene and did not feel there was ischemia to the leg. He remains on 2L of oxygen via nasal cannula. Labs today hemoglobin 7.3, BUN 51, creatinine 2.66. Remains on IV cefepime which can also cause confusion. 03/27/2024 Patient evaluated in follow-up in the intensive care unit. He is currently sitting up in the chair family at the bedside. He is more awake alert and oriented he is able to state his name and birthday. He does continue to have significant right upper extremity weakness and also mild right lower extremity weakness. This was discussed with neurology and as his mentation has improved brain and cervical neck MRI are both ordered for tomorrow. His creatinine today is 3.0. He has been taken off of the normal saline and also remains off diuretics. Patient was transition to IV ertapenem taken off of the cefepime at this time. Chest x-ray shows no change in the left lung opacification and probable small pleural effusion. Development of a small right pleural effusion. Review of systems: Constitutional: reports of fatigue, no fever, or chills Cardiovascular: No reports of chest pain or palpitations Respiratory: No reports of shortness of breath with continued cough GI: No reports of nausea, vomiting, or diarrhea, : No reports of dysuria or retention Neurovascular: reports of generalized weakness and significant swelling of upper and lower extremities All medications have been reviewed Physical exam: Gen: This is a 64-year-old male who is maintained on 2 L nasal cannula., well- developed, elderly appearing, ill-appearing, appears older than stated age HEENT: Head is atraumatic, normocephalic. Pupils equal, round. Sclerae is anicteric. NECK: Supple. No JVD. No lymphadenopathy. No thyromegaly. LUNGS: Diminished breath sounds bilaterally with some bronchial congestion and coarse scattered rhonchi. No intercostal retractions. HEART: S1, S2 are muffled ABDOMEN: Soft. Somewhat taut, positive bowel sounds are present. No masses. No tenderness. Significant scrotal edema noted, minimally improved EXTREMITIES: Bilateral upper and lower extremity edema noted. No calf tenderness. Generalized upper and lower extremity edema along with scrotal swelling noted Right upper extremity weakness. NEUROLOGICAL: Patient is awake, alert and oriented x 2, diffusely weak Assessment: -Chronic alcohol abuse with acute alcohol withdrawal syndrome; Thiamine and protonix. No longer going through acute withdrawals. -Altered mental status acute metabolic and septic encephalopathy. Brain CT reveals no acute stroke. Patient continues to have right upper and lower extremity weakness. Unable to officially rule out stroke. -Acute hypoxic respiratory failure was intubated following knee surgery on 10/10 and successfully extubated on 10/15/24. re-intubated on 10/18/2024 and now extubated on 10/22/24. Status post bronchoscopy on 10/18. -Congestive heart failure with an EF of 45%, diastolic dysfunction -Paroxysmal atrial fibrillation transitioned to oral amiodarone Currently on subq heparin. Was taken off IV heparin due to decreased hemoglobin -Acute blood loos anemia requiring infusion. -Right sided pleural effusion status post right sided thoracentesis with 400 mL off. -Oral thrush -Rhabdomyolysis secondary to immobility due to fall. Improving with IV hydration. We will continue to monitor strict STERLING's, daily weights, renal function electrolytes -Acute kidney injury secondary to ATN due to to septic shock and rhabdomyolysis. Was initially improving and now with worsening renal function while on hemodialysis. -Relative adrenal insufficiency. On IV hydrocortisone. -Transaminitis. Improving. -Streptococcus group A bacteremia. Currently on cefazolin per ID recommendation; continue to monitor CBC, CRP and procalcitonin. Possibly secondary to right knee infection -Right knee pain with swelling, status post aspiration along with arthroscopic lavage, culture showing strep a with septic arthritis -Hyponatremia, likely hypovolemic; resolved. -Episode of hypernatremia treated with D5W, sodium normalized. This was due to free water deficit. 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 -History of coronary artery disease with previous catheterization and stent pl acement. -Hypertension; currently not on any antihypertensive medication. -Sepsis, present on admission possibly secondary to right knee arthritis with bacteremia GI prophylaxis DVT prophylaxis No code Plan: Patient continues in the ICU with multiple consultations following maintained on IV antibiotics status post arthroscopy with lavage of the right knee and final cultures showing Strep A. Repeat blood cultures thus far are negative and will continue on IV antibiotics with ID following Sputum culture showing Enterobacter patient is status post bronchoscopy sputum cultures are now negative He has been transitioned from IV cefepime to IV ertapenem with concern that the cefepime may be attributing to his altered mentation. He is now more awake and alert today. Speech therapy has been reconsulted post extubation and is maintained on a dysphagia ground diet and strongly recommend aspiration precautions with supervision with meals and out of the bed elevated 30 to 45 degrees at all times Blood sugars variable and have been elevated, will continue sliding scale and also adjust long-acting slightly as blood sugars have been consistently remaining over the 200s monitor closely for hypoglycemia Levemir was decreased to 7 units BID as patient did have a blood glucose level drop into the 30s. discussion was had with family at the bedside as well as patient and will likely need rehab on discharge. Follow-up on repeat labs and monitor kidney functions and electrolytes closely. Due to the worsening renal function, lasix has been discontinued and now fluids have been discontinued. He is monitored off both. Indwelling catheter remains in place with adequate urine output. brain/cervical neck MRI without contrast has been ordered. Orthopedics did recommend lumbar spine MRI with and without contrast although patients renal function now with creatinine of 3 he is unable to get oral contrast at this time. Physical therapy and occupational therapy have been re-consulted. Repeat blood work in the AM Overall prognosis remains guarded at this time The impression and plan of care has been dictated by Sharlene Pendleton, Nurse Practitioner as directed. Dr. Randall MD I have performed a history and examination and MDM of this patient, discussed the same with the dictator, and agree with the dictator's assessment and plan as written ,documented as a scribe. Based on total visit time, I have performed more than 50% of the visit. Objective - Vital Signs Vital signs: Vital Signs Temp 98 F 10/27/24 08:00 Pulse 76 10/27/24 11:00 Resp 21 10/27/24 11:00 BP 94/68 10/27/24 11:00 Pulse Ox 95 10/27/24 11:00 FiO2 40 10/22/24 09:56 Intake & Output 10/26/24 10/27/24 10/27/24 18:59 06:59 18:59 Intake Total 1110 1197.5 710 Output Total 300 325 285 Balance 810 872.5 425 Weight 93 kg Intake: IV 140 1127.5 290 0.9 Normal Saline 40 57.5 10 Cefepime 2 gm In Sodium 100 Chloride 0.9% 100 ml @ 25 mls/hr IVPB Q12HR [facility] Rx #:[id number] Ertapenem 1 gm In Sodium 50 Chloride 0.9% 50 ml @ 100 mls/hr IVPB HS [facility] Rx#: [id number] Sodium Chloride 0.9% 1, 770 280 000 ml @ 70 mls/hr IV . [id number] [facility] Rx#:[id number] Sodium Chloride 0.9% 250 250 ml @ 999 mls/hr IV .Q16M [facility] Rx#:[id number] Intake, IV Titration 630 70 200 Amount Magnesium Sulfate-D5w Pmx 200 1 gm In Dextrose/Water 1 100ml.bag @ 100 mls/hr IVPB Q1H [facility] Rx#: [id number] Sodium Chloride 0.9% 1, 630 70 000 ml @ 70 mls/hr IV . [id number] [facility] Rx#:[id number] Oral 340 220 Output: Urine 300 325 285 Other: Voiding Method Indwelling Catheter Indwelling Catheter Indwelling Catheter # Bowel Movements 1 ABP, PAP, CO, CI - Last Documented Arterial Blood Pressure 128/42 - Labs CBC & Chem 7: 10/27/24 03:57 10/27/24 03:57 Labs: Abnormal Lab Results - Last 24 Hours (Table) 10/26/24 10/26/24 10/26/24 Range/Units 13:16 16:26 23:34 RBC (4.30-5.90) m/uL Hgb (13.0-17.5) gm/dL Hct (39.0-53.0) % MCV (80.0-100.0) fL Macrocytosis Chloride (98-107) mmol/L Carbon Dioxide (22-30) mmol/L BUN (9-20) mg/dL Creatinine (0.66-1.25) mg/dL Glucose (74-99) mg/dL POC Glucose (mg/dL) 172 H 184 H 147 H (70-110) mg/dL Magnesium (1.6-2.3) mg/dL Creatine Kinase (55-170) U/L 10/27/24 10/27/24 10/27/24 Range/Units 03:57 03:57 03:57 RBC 2.12 L (4.30-5.90) m/uL Hgb 7.4 L (13.0-17.5) gm/dL Hct 23.1 L (39.0-53.0) % MCV 109.0 H (80.0-100.0) fL Macrocytosis Marked A Chloride 115 H (98-107) mmol/L Carbon Dioxide 21 L (22-30) mmol/L BUN 54 H (9-20) mg/dL Creatinine 3.02 H (0.66-1.25) mg/dL Glucose 207 H (74-99) mg/dL POC Glucose (mg/dL) (70-110) mg/dL Magnesium 1.5 L (1.6-2.3) mg/dL Creatine Kinase <20 L (55-170) U/L 10/27/24 10/27/24 Range/Units 06:03 11:04 RBC (4.30-5.90) m/uL Hgb (13.0-17.5) gm/dL Hct (39.0-53.0) % MCV (80.0-100.0) fL Macrocytosis Chloride (98-107) mmol/L Carbon Dioxide (22-30) mmol/L BUN (9-20) mg/dL Creatinine (0.66-1.25) mg/dL Glucose (74-99) mg/dL POC Glucose (mg/dL) 281 H 220 H (70-110) mg/dL Magnesium (1.6-2.3) mg/dL Creatine Kinase (55-170) U/L Assessment and Plan Time with Patient: Less than 30
[2024-10-27] MEDS: SODIUM CHLORIDE 0.9% 1,000 ML IV SCH (12:40)
[2024-10-27 16:39] LABS: Glucose,Whole Blood 114 mg/dL (70-110)
[2024-10-27] MEDS: INSULIN ASPART (NovoLOG) 100 UNIT/ML VIAL SQ SCH (16:52)
[2024-10-27] MEDS: NYSTATIN 100,000 UNIT/ML SUSP 500,000 UNIT/5 ML CUP PO SCH (16:52)
[2024-10-27 19:52] LABS: Glucose,Whole Blood 191 mg/dL (70-110)
--- NOTE | 2024-10-27 20:41 | PN ---
PROGRESS NOTE HISTORY OF PRESENT ILLNESS: Forest is a 64-year-old gentleman who is admitted to ICU following the right-sided CVA. He continues to have a low hemoglobin at 7.4. He has paroxysmal atrial fibrillation, but is not on an anticoagulant because of the blood loss related anemia. PHYSICAL EXAMINATION: VITAL SIGNS: Heart rate is 80 beats per minute, blood pressure is 111/61, respiratory rate is 18. CHEST: Reveals diminished air entry at the bases. HEART: Reveals first and second heart sounds. No gallop. ABDOMEN: Soft. EXTREMITIES: Reveal moderate edema bilaterally LABORATORY STUDIES: Show a hemoglobin of 7.4, platelet count is 240. Potassium is 4.2, BUN is 54, creatinine is 3. MEDICATIONS: The patient is currently on, 1. Amiodarone 200 b.i.d. 2. Lipitor. 3. Lopressor 12.5 b.i.d. ASSESSMENT: 1. Cerebrovascular accident with right-sided hemiplegia. 2. Paroxysmal atrial fibrillation. 3. Anemia secondary to blood loss. PLAN: Continue current medications. MMODL / IJN: [id number] /
[2024-10-27] MEDS: ERTAPENEM 0.5 GM in SODIUM CHLORIDE 0.9% 50 ML IVPB SCH (21:50)
[2024-10-28 06:49] LABS: ALT 11 U/L (4-49); AST 28 U/L (17-59); African American GFR (CKD) 19 (>60 ml/min/1.73 sqM); Albumin 2.3 g/dL (3.5-5.0); Alkaline Phosphatase 122 U/L (38-126); Anion Gap 9 mmol/L; Blood Urea Nitrogen 58 mg/dL (9-20); Calcium 9.2 mg/dL (8.4-10.2); Carbon Dioxide 21 mmol/L (22-30); Chloride 112 mmol/L (98-107); Glucose 66 mg/dL (74-99); Magnesium 1.7 mg/dL (1.6-2.3); Non-African American GFR(CKD) 17 (>60 ml/min/1.73 sqM); Potassium 4.5 mmol/L (3.5-5.1); Sodium 142 mmol/L (137-145); Total Bilirubin 0.4 mg/dL (0.2-1.3); Total Protein 6.5 g/dL (6.3-8.2)
[2024-10-28 07:05] LABS: Glucose,Whole Blood 80 mg/dL (70-110)
[2024-10-28 07:45] LABS: Basophils % (A) 0 %; Eosinophils % (A) 0 %; HCT 25.3 % (39.0-53.0); HGB 7.8 gm/dL (13.0-17.5); Hypochromasia Marked; Lymphocytes # (A) 1.1 k/uL (1.0-4.8); Lymphocytes % (A) 17 %; MCH 33.5 pg (25.0-35.0); MCHC 30.9 g/dL (31.0-37.0); MCV 108.3 fL (80.0-100.0); Macrocytosis Marked; Mean Platelet Volume 9.8; Monocytes # (A) 0.3 k/uL (0-1.0); Monocytes % (A) 5 %; Neutrophils % (A) 75 %; Platelet Count 259 k/uL (150-450); RBC 2.33 m/uL (4.30-5.90); RDW 15.2 % (11.5-15.5); WBC 6.6 k/uL (3.8-10.6)
--- NOTE | 2024-10-28 08:26 | P.PN ---
Subjective Progress Note Date: 10/27/24 Principal diagnosis: Reason for follow-up is Streptococcus agalactiae bacteremia Patient is a 64-year-old male past medical history significant for diabetes mellitus hypertension hyperlipidemia [place] osteoarthritis coronary disease patient was brought into the hospital after apparently the patient was found to be facedown on the ground with contusion to his forehead and abrasion to his knee and some bloody toes, patient did have a fever subsequently blood cultures came back positive with Streptococcus agalactiae prompting this consultation. Patient noticed to have swelling of the right knee aspirate was purulent subsequently the patient did have a right knee washout completed by orthopedics on 10/10/2024. On today's evaluation that is 10/27/2024, Patient is afebrile patient is currently on 4 L nasal cannula oxygen and breathing slightly comfortably the patient is more awake and alert and also some simple question no vomiting or diarrhea has been reported by the nursing staff. Patient white count 6.0 creatinine 3.02 Objective - Vital Signs Vital signs: Vital Signs Temp 98.7 F 10/27/24 04:00 Pulse 93 10/27/24 07:00 Resp 21 10/27/24 07:00 BP 106/67 10/27/24 07:00 Pulse Ox 92 L 10/27/24 07:00 FiO2 40 10/22/24 09:56 Intake & Output 10/26/24 10/27/24 10/27/24 18:59 06:59 18:59 Intake Total 1110 1197.5 75 Output Total 300 325 25 Balance 810 872.5 50 Weight 93 kg Intake: IV 140 1127.5 75 0.9 Normal Saline 40 57.5 5 Cefepime 2 gm In Sodium 100 Chloride 0.9% 100 ml @ 25 mls/hr IVPB Q12HR [facility] Rx #:[id number] Ertapenem 1 gm In Sodium 50 Chloride 0.9% 50 ml @ 100 mls/hr IVPB HS [facility] Rx#: [id number] Sodium Chloride 0.9% 1, 770 70 000 ml @ 70 mls/hr IV . [id number] [facility] Rx#:[id number] Sodium Chloride 0.9% 250 250 ml @ 999 mls/hr IV .Q16M [facility] Rx#:[id number] Intake, IV Titration 630 70 Amount Sodium Chloride 0.9% 1, 630 70 000 ml @ 70 mls/hr IV . [id number] [facility] Rx#:[id number] Oral 340 Output: Urine 300 325 25 Other: Voiding Method Indwelling Catheter Indwelling Catheter ABP, PAP, CO, CI - Last Documented Arterial Blood Pressure 128/42 - Exam GENERAL DESCRIPTION: Middle-age male lying in bed in no distress RESPIRATORY SYSTEM: Unlabored breathing , coarse breath sounds bilaterally HEART: S1 S2 regular rate and rhythm , ABDOMEN: Soft , no tenderness EXTREMITIES: Swelling to the lower extremity and right knee but no redness - Labs CBC & Chem 7: 10/28/24 07:26 10/28/24 05:12 Labs: Abnormal Lab Results - Last 24 Hours (Table) 10/26/24 10/26/24 10/26/24 Range/Units 11:13 13:16 16:26 RBC (4.30-5.90) m/uL Hgb (13.0-17.5) gm/dL Hct (39.0-53.0) % MCV (80.0-100.0) fL Macrocytosis Chloride (98-107) mmol/L Carbon Dioxide (22-30) mmol/L BUN (9-20) mg/dL Creatinine (0.66-1.25) mg/dL Glucose (74-99) mg/dL POC Glucose (mg/dL) 163 H 172 H 184 H (70-110) mg/dL Magnesium (1.6-2.3) mg/dL 10/26/24 10/27/24 10/27/24 Range/Units 23:34 03:57 03:57 RBC 2.12 L (4.30-5.90) m/uL Hgb 7.4 L (13.0-17.5) gm/dL Hct 23.1 L (39.0-53.0) % MCV 109.0 H (80.0-100.0) fL Macrocytosis Marked A Chloride 115 H (98-107) mmol/L Carbon Dioxide 21 L (22-30) mmol/L BUN 54 H (9-20) mg/dL Creatinine 3.02 H (0.66-1.25) mg/dL Glucose 207 H (74-99) mg/dL POC Glucose (mg/dL) 147 H (70-110) mg/dL Magnesium 1.5 L (1.6-2.3) mg/dL 10/27/24 Range/Units 06:03 RBC (4.30-5.90) m/uL Hgb (13.0-17.5) gm/dL Hct (39.0-53.0) % MCV (80.0-100.0) fL Macrocytosis Chloride (98-107) mmol/L Carbon Dioxide (22-30) mmol/L BUN (9-20) mg/dL Creatinine (0.66-1.25) mg/dL Glucose (74-99) mg/dL POC Glucose (mg/dL) 281 H (70-110) mg/dL Magnesium (1.6-2.3) mg/dL Assessment and Plan (1) Sepsis Current Visit: Yes Status: Acute Code(s): A41.9 - SEPSIS, UNSPECIFIED ORG ANISM SNOMED Code(s): 96740393 (2) Streptococcal bacteremia Current Visit: Yes Status: Acute Code(s): R78.81 - BACTEREMIA; B95.5 - UNSP STREPTOCOCCUS THE CAUSE OF [facility]EASES [facility] SNOMED Code(s): 988846940212 Plan: 1patient presented to the hospital with sepsis in this patient who did have fever tachycardia elevated white count and now with evidence of streptococcal bacteremia which is usually of skin and soft tissue origin 2-patient noticed to have right knee effusion has been evaluated by orthopedics and is status post aspiration with purulent drainage subsequently did have right knee washout by orthopedic cultures are pending may need further workup including MRI of the spine when stable. Ortho is following the patient closely 3patient right knee fluid culture also came back positive with group A strep 4-patient did have left-sided pneumonia patient required reintubation and also status post bronchoscopy and lavage sputum culture so far negative, initial culture growing Enterobacter that is sensitive to cefepime patient subsequently has been successfully extubated 5the patient remains to be afebrile white count normal however did have mental status changes could be related to cefepime which was discontinued. 6-patient will be treated with ertapenem 500 mg daily dose adjusted to kidney function and monitor clinical course closely Dictation was produced using [employer] dictation software. please excuse any grammatical, word or spelling errors. Time with Patient: Less than 30
--- NOTE | 2024-10-28 09:26 | P.PN ---
Subjective Progress Note Date: 10/28/24 The patient is a 64-year-old male who was admitted with an acute CVA. He was found to have new onset of atrial fibrillation. Over the course of the admission he had drops in hemoglobin and therefore has not been started on anticoagulation. He remains in sinus rhythm on oral amiodarone. Patient continues to work with physical therapy as well as speech. He currently denies any chest pain or difficulty breathing. GENERAL: Well-appearing, well-nourished and in no acute distress. NECK: Supple without JVD or thyromegaly. LUNGS: Breath sounds coarse to auscultation bilaterally. Respiration equal and u nlabored. No wheezes, rales or rhonchi. HEART: Regular rate and rhythm without murmurs, rubs or gallops. S1 and S2 heard. EXTREMITIES: Normal range of motion, no edema. No clubbing or cyanosis. TELEMETRY: Sinus rhythm LABS: WBC 6.6, hemoglobin 7.8, hematocrit 25.3, platelet 259, sodium 142, potassium 4.5, BUN 58, creatinine 3.68, AST 28, ALT 11 IMPRESSION: Acute CVA with right-sided hemiplegia Paroxysmal atrial fibrillation Anemia secondary to blood loss Acute renal failure Acute left lower lobe pneumonia Septic arthritis, status post arthroscopy and arthroscopic lavage PLAN: Continue supportive treatment Start anticoagulation once hemoglobin is stable and cleared by GI Further recommendations to be based upon clinical course I am dictating on behalf of Dr Nicola Carcamo's history/physical and assessment/plan. Objective - Vital Signs Vital signs: Vital Signs Temp 97.8 F 10/28/24 08:00 Pulse 82 10/28/24 09:00 Resp 23 10/28/24 09:00 BP 109/63 10/28/24 09:00 Pulse Ox 96 10/28/24 09:00 FiO2 4 10/28/24 04:00 Intake & Output 10/27/24 10/28/24 10/28/24 18:59 06:59 18:59 Intake Total 985 110 135 Output Total 745 290 55 Balance 240 -180 80 Weight 93.7 kg Intake: IV 290 105 15 0.9 Normal Saline 10 55 15 Ertapenem 0.5 gm In 50 Sodium Chloride 0.9% 50 ml @ 100 mls/hr IVPB [facility] Rx#:[id number] Sodium Chloride 0.9% 1, 280 000 ml @ 70 mls/hr IV . [id number] [facility] Rx#:[id number] Intake, IV Titration 235 5 Amount Magnesium Sulfate-D5w Pmx 200 1 gm In Dextrose/Water 1 100ml.bag @ 100 mls/hr IVPB Q1H [facility] Rx#: [id number] Sodium Chloride 0.9% 1, 35 5 000 ml @ 5 mls/hr IV . Q24H [facility] Rx#:[id number] Oral 460 120 Output: Urine 745 290 55 Other: Voiding Method Indwelling Catheter Indwelling Catheter # Bowel Movements 1 ABP, PAP, CO, CI - Last Documented Arterial Blood Pressure 128/42 - Labs CBC & Chem 7: 10/28/24 07:26 10/28/24 05:12 Labs: Abnormal Lab Results - Last 24 Hours (Table) 10/27/24 10/27/24 10/27/24 Range/Units 03:57 11:04 16:37 RBC (4.30-5.90) m/uL Hgb (13.0-17.5) gm/dL Hct (39.0-53.0) % MCV (80.0-100.0) fL MCHC (31.0-37.0) g/dL Macrocytosis Chloride (98-107) mmol/L Carbon Dioxide (22-30) mmol/L BUN (9-20) mg/dL Creatinine (0.66-1.25) mg/dL Glucose (74-99) mg/dL POC Glucose (mg/dL) 220 H 114 H (70-110) mg/dL Creatine Kinase <20 L (55-170) U/L Albumin (3.5-5.0) g/dL 10/27/24 10/28/24 10/28/24 Range/Units 19:51 05:12 07:26 RBC 2.33 L (4.30-5.90) m/uL Hgb 7.8 L (13.0-17.5) gm/dL Hct 25.3 L (39.0-53.0) % MCV 108.3 H (80.0-100.0) fL MCHC 30.9 L (31.0-37.0) g/dL Macrocytosis Marked A Chloride 112 H (98-107) mmol/L Carbon Dioxide 21 L (22-30) mmol/L BUN 58 H (9-20) mg/dL Creatinine 3.68 H (0.66-1.25) mg/dL Glucose 66 L (74-99) mg/dL POC Glucose (mg/dL) 191 H (70-110) mg/dL Creatine Kinase (55-170) U/L Albumin 2.3 L (3.5-5.0) g/dL
[2024-10-28 11:10] LABS: Glucose,Whole Blood 125 mg/dL (70-110)
--- NOTE | 2024-10-28 11:21 | FL ---
EXAMINATION TYPE: FL barium swallow w video DATE OF EXAM: 10/28/2024 COMPARISON: NONE HISTORY: Abnormal bedside exam TECHNIQUE: Fluoroscopy. FINDINGS: Fluoroscopic guidance was provided for the procedure performed in conjunction with the [facility] pathology department. Please see complete report forthcoming from the Speech Pathology departmen t. Various consistencies from thin liquid to solids were administered. Fluoroscopy time 2 minutes 14 seconds. Number of images: 19. DAP: 207.51 There was deep penetration with thin liquids near the end of the examination. There was penetration w ith thin into lesser degree nectar thick liquids. No aspiration was evident. Mild pooling was observed in the vallecula. There was slight delay of the propulsion of the bolus. IMPRESSION: 1. No aspiration evident. 2. Penetration with thin liquids and mild penetration with nectar thick liquids. 3. Mild pooling within the vallecula [facility] Chanell Seals, , 10/28/2024 11:19 AM
--- NOTE | 2024-10-28 12:27 | P.PN ---
Subjective patient is seen for follow-up for acute kidney injury. Renal function is slightly worse with serum creatinine increased to 3.6 mg/dL. Blood pressure remains on the lower side. Status post IV Lasix yesterday for significance leg edema and scrotal edema. no significant shortness of breath. Patient remains on 2-4 L of oxygen via nasal cannula. Urine output at 10-25 mL an hour. Objective - Vital Signs Vital signs: Vital Signs Temp 97.8 F 10/28/24 08:00 Pulse 76 10/28/24 10:00 Resp 19 10/28/24 10:00 BP 114/58 10/28/24 10:00 Pulse Ox 94 L 10/28/24 10:00 FiO2 4 10/28/24 04:00 Intake & Output 10/27/24 10/28/24 10/28/24 18:59 06:59 18:59 Intake Total 985 110 135 Output Total 745 290 115 Balance 240 -180 20 Weight 93.7 kg Intake: IV 290 105 15 0.9 Normal Saline 10 55 15 Ertapenem 0.5 gm In 50 Sodium Chloride 0.9% 50 ml @ 100 mls/hr IVPB HS [facility] Rx#:[id number] Sodium Chloride 0.9% 1, 280 000 ml @ 70 mls/hr IV . [id number] [facility] Rx#:[id number] Intake, IV Titration 235 5 Amount Magnesium Sulfate-D5w Pmx 200 1 gm In Dextrose/Water 1 100ml.bag @ 100 mls/hr IVPB Q1H [facility] Rx#: [id number] Sodium Chloride 0.9% 1, 35 5 000 ml @ 5 mls/hr IV . Q24H [facility] Rx#:[id number] Oral 460 120 Output: Urine 745 290 115 Other: Voiding Method Indwelling Catheter Indwelling Catheter Indwelling Catheter # Bowel Movements 1 ABP, PAP, CO, CI - Last Documented Arterial Blood Pressure 128/42 - Exam patient is awake and following commands. Examination of the heart S1 and S2 Examination of the lungs bilateral breath sounds are heard Abdomen is soft nontender Examination of lower extremities shows edema 1+. significant scrotal edema - Labs CBC & Chem 7: 10/28/24 07:26 10/28/24 05:12 Labs: Abnormal Lab Results - Last 24 Hours (Table) 10/27/24 10/27/24 10/28/24 Range/Units 16:37 19:51 05:12 RBC (4.30-5.90) m/uL Hgb (13.0-17.5) gm/dL Hct (39.0-53.0) % MCV (80.0-100.0) fL MCHC (31.0-37.0) g/dL Macrocytosis Chloride 112 H (98-107) mmol/L Carbon Dioxide 21 L (22-30) mmol/L BUN 58 H (9-20) mg/dL Creatinine 3.68 H (0.66-1.25) mg/dL Glucose 66 L (74-99) mg/dL POC Glucose (mg/dL) 114 H 191 H (70-110) mg/dL Albumin 2.3 L (3.5-5.0) g/dL 10/28/24 10/28/24 Range/Units 07:26 11:08 RBC 2.33 L (4.30-5.90) m/uL Hgb 7.8 L (13.0-17.5) gm/dL Hct 25.3 L (39.0-53.0) % MCV 108.3 H (80.0-100.0) fL MCHC 30.9 L (31.0-37.0) g/dL Macrocytosis Marked A Chloride (98-107) mmol/L Carbon Dioxide (22-30) mmol/L BUN (9-20) mg/dL Creatinine (0.66-1.25) mg/dL Glucose (74-99) mg/dL POC Glucose (mg/dL) 125 H (70-110) mg/dL Albumin (3.5-5.0) g/dL Microbiology - Last 24 Hours (Table) 10/10/24 12:04 Gram Stain - Final Knee - Right Wound Culture - Final Assessment and Plan Assessment: 1. Acute kidney injury secondary to ATN secondary to septic shock and rhabdomyolysis. Creatinine 3.18 on admission and is improved to 0.9 -1.0. Serum creatinine has increased again to about 3.6 today, mostly related to low blood pressure. Urine output is borderline. No hydronephrosis noted on kidney ultrasound. 2. Rhabdomyolysis secondary to immobility. CK levels trending down. 3. Strep bacteremia on antibiotics. 4. Anion gap metabolic acidosis secondary to acute kidney injury and lactic acidosis.improved. 5. Hyponatremia secondary to hypovolemia as well as acute kidney injury. Better. 6. Hypomagnesemia from poor intake and alcohol abuse. Replaced. 7. History of alcohol abuse. 8. Hypocalcemia, replaced. 25-hydroxy vitamin D was 26.5, started on supplementation. PTH appropriately increased. 9. Hypokalemia from poor intake. Replaced. Better. 10. A-fib with RVR status post amiodarone drip. 11. Volume overload with significant scrotal edema Plan: add midodrine for low blood pressure Repeat labs in a.m. Continue off of Lasix
[2024-10-28] MEDS: MIDODRINE 5 MG TAB PO SCH (13:31)
--- NOTE | 2024-10-28 13:55 | P.PN ---
Subjective Progress Note Date: 10/28/24 Patient is a 64-year-old male who is being seen in the ICU due to hypovolemic shock and rhabdomyolysis. He is a poor historian due to altered mental status and unresponsiveness. All history is obtained from the chart. He initially presented to the emergency department after being found facedown on the ground with a contusion to his forehead and abrasions to his knee and left toes. She stated that he had been having nausea and vomiting for a day prior to being found down. He was noted to have diarrhea as well. Patient is a daily drinker and consumes about a fifth per day according to the notes he has not drank for the 2 days prior to this admission. He also has a history of type 1 diabetes m socrates. Initial EKG showed sinus tachycardia. Head/cervical spine CT showed no acute intracranial process and no acute fracture or traumatic subluxation of the cervical spine. Initial chest x-ray showed right middle lobe scarring/atelectasis, no acute pulmonary process. He had received 4 L of normal saline. Initial labs showed CK level of 18,113, WBCs 10.7, hemoglobin 12.5, sodium 126, creatinine 3.18 lactic acid 6.9, AST 401, ALT 65. Preliminary blood culture showed gram-positive cocci and patient was started on vancomycin. On 10/20/2024, the patient remains sedated on propofol. Arousable and moving all 4 extremities. He is status post reintubation on 10/18/2024 and is status post bronchoscopy x 2 with evacuation of mucous plugs from his left lower lobe. The patient has Enterobacter erogenous in his sputum and the patient remains on IV cefepime. This morning, he remains on assist-control mode with rate of 14, tidal volume of 500, FiO2 of 50% with a PEEP of 10. Blood gas shows significant improvement oxygenation and the pO2 is up to 153 and a pH is at 7.4 with a pCO2 of 41. The patient remains on low-dose norepinephrine at 0.04 mcg/kg/min. He remains on IV heparin for paroxysmal A-fib. Hemoglobin dropped down to 6.7 and the patient is going to receive a unit of packed RBC. Creatinine is up to 1.5. He remains on vital high-protein at rate of 40 cc an hour. Fluid balance is +1.2 L over the past 24 hours. He is afebrile. Patient was seen today on 10/21/24, patient remains in the ICU, patient is on mechanical ventilation with assist-control rate of 14 tidal volume 500 FiO2 40% and PEEP of 6 ABG showed a pO2 of 27 pCO2 34 pH of 7.47. No changes were made in vent settings. Patient remains on propofol at 40 mcg/kg/min, received a unit of packed RBCs yesterday for low hemoglobin. Remains on vital HP patient is receiving cefepime for Enterobacter around [place] and his sputum. Patient had strep a in the right knee joint patient is covered with cefepime remains on Lasix 40 mg IV push daily his initial presentation to the hospital was when he was found facedown on the ground with a contusion on his forehead and abrasion on his left knee as well as left toes. Patient is known to be a heavy drinker, consumes 1/5/day according to the notes in the chart. Patient is also known to have type 1 diabetes, intubation on 10/10/2024 following his knee surgery patient was extubated on 10/15, however he had to be reintubated on 10/18 bronchoscopy was done for extensive pneumonia involving the left lower lobe and mucous plugs were suctioned. Patient also had another bronchoscopy on 09/22 with improvement in his chest x-ray findings and left lower lobe pneumonia. Sputum cultures have been positive for Enterobacter allergies. Has been on IV cefepime WBC count today 6.3 hemoglobin 7.8 metabolic profile is normal BUN is 42 creatinine 1.67. Chest x-ray continues to show bibasilar airspace disease left lower lobe more so than right lower lobe Patient was eval today and 10/22/2024, patient remains in the ICU, intubated and mechanically ventilated, on assist-control rate of 14 tidal volume 500 FiO2 40% PEEP of 6 ABG showed a pO2 of 93 pCO2 34 pH of 7.50 peak airway pressure is 23 Plateau pressure is 16 continues to have some clear yellow sputum that is easily suctioned will not require bronchoscopy today considering the easily suctioned the mucus secretions. Patient is on propofol at 40 mcg/kg/min vital HP at 40 mL/h IV fluid at KVO patient remains on antibiotics in the form of cefepime, he has Enterococcus in the sputum and he had strep pain from his knee. Leg susi on Lasix 40 mg twice daily chest x-ray is showing slight improvement in his bibasilar pneumonia hence I am not recommending bronchoscopy today I will try to give the patient a trial of weaning if possible. Labs today were reviewed WBC count is 5.8 hemoglobin 7.9 platelets are 306, electrolytes are normal BUN is 43 creatinine 1.85 Patient was seen today on 10/23/2024, remains in the ICU, however the patient was extubated yesterday and so far he seems to be tolerating the extubation well. Patient is on 3 L nasal cannula, he is alert, but extremely slow. And complaining of right upper extremity swelling and pain. Considering the patient had a fall I will recommend x-rays of the right upper extremity and I would recommend ultrasound/venous Doppler of the right upper extremity. Patient continues to have pneumonia based on chest x-ray, left lower lobe is quite concerning patient does not have a very good cough. Hoping he does not require bronchoscopy again. In the meantime he is on cefepime. Patient had worsening of his renal functioning and I discontinued his Lasix today. He is on subcu heparin for DVT prophylax. And I do not believe the patient is quite ready to be discharged out of the ICU yet, I will keep him in the ICU for another day. And follow-up chest x-ray will be done in a.m. His WBC count is 6 hemoglobin 8.2 electrolytes are normal BUN is 46 creatinine 2.19 Seen today on 10/24/2024, patient remains in the ICU, off mechanical ventilation, on2 L nasal cannula with O2 saturation between 94 to 97%. Patient is confused, he is not in any form of respiratory distress.WBC is 5.8 hemoglobin 7.6 electrolytes are normal BUN is 46 creatinine 2.22, slightly improved compared to yesterday after holding his diuretics chest x-ray is showing slight improvement in his pneumonia. However what seems to be quite concerning to me is his mental status patient seems to be confused, and continues to have difficulty moving his right upper extremity workup on the right upper extremity has been negative including x-rays and Doppler. Patient was seen today on 10/25/2024, patient remains in the ICU, mental status is basically about the same, patient remains encephalopathic, continues to have difficulty raising his right upper extremity hence orthopedics was consulted. Chest x-ray continues to show bilateral pneumonia left a bit worse than right, patient is on antibiotics for Enterobacter erogenous noted previously on his sputum. Patient is able to clear his secretions on his own, he does have a vigorous cough, his overall mental status seems to be a bit concerning, neurology was consulted on the patient today yesterday, felt that the patient may have metabolic encephalopathy. In addition to this the patient has some ischemic changes noted in the distal aspect of his left fourth toe and at the base of his big toe, hence I recommended vascular surgery evaluation. He does have good pulses by Doppler on that same foot. Labs today show WBC is 5.4 hemoglobin 7.7 electrolytes are normal BUN is 47 creatinine 2.30 Patient seen today on 10/26/2024, remains in ICU, remains on 4 L nasal cannula mentation is about the same, remains encephalopathic but follows simple instructions, continues to have issues with his right upper extremity patient is on IV fluid at KVO however I increased IV fluid today to 70 cc/h as his renal function seems to be getting a bit worse. And I am recommending that we stop diuretics altogether. Patient remains on cefepime for Enterobacter in his sputum. Chest x-ray continues show bilateral pneumonia minimal improvement noted. But continues to have significant infiltrates specially in the left lower lobe. WBC is 5.3 hemoglobin 7.3 basic metabolic profile is normal BUN is up to 51 creatinine up to 2.66 Patient was seen today on 10/27/2024, remains in the ICU remains on 4 L nasal can nula remains on IV fluid at 75 cc/h his urine output seems to be marginal down to 15/20 cc/h hence I am recommending a low-dose of Lasix 60 mg IV push x 1. Patient is becoming a bit more edematous hoping that he will improve with gentle diuresis. Renal functioning seems to be getting worse over the last few days in spite of holding the Lasix and inspite of hydrating the patient cautiously patient remains on Invanz for his Enterococcus erogenous in the sputum this is being addressed by infectious disease, chest x-ray continues show bilateral infiltrates left more so than right patient also has small bilateral pleural effusions. Lasix was given today and he remains on antibiotics for his un derlying pneumonia. The patient is seen today October 28, 2024 in follow-up in the intensive care [facility]. He is currently sitting up in bed. Awake. Somewhat slow to respond. He is maintaining good O2 saturation mid 90s on 3 L/min per nasal cannula. He has been afebrile. Hemodynamically stable. Right knee culture was positive for strep A. Previous sputum culture had been positive for enterofactor aerogenes. Follow-up cultures revealed no growth. Pleural fluid cultures revealed no growth. He 2. Potassium 4.9. Bicarb 21. BUN 58. Creatinine 3.68. Glucose 66. He is continued on DuoNeb and elations. Heparin for DVT prophylaxis. Antibiotics in the form of ertapenem. Objective - Vital Signs Vital signs: Vital Signs Temp 98 F 10/28/24 12:00 Pulse 80 10/28/24 12:52 Resp 18 10/28/24 12:00 BP 116/79 10/28/24 12:00 Pulse Ox 95 10/28/24 12:00 FiO2 4 10/28/24 04:00 Intake & Output 10/27/24 10/28/24 10/28/24 18:59 06:59 18:59 Intake Total 985 110 135 Output Total 745 290 115 Balance 240 -180 20 Weight 93.7 kg Intake: IV 290 105 15 0.9 Normal Saline 10 55 15 Ertapenem 0.5 gm In 50 Sodium Chloride 0.9% 50 ml @ 100 mls/hr IVPB HS [facility] Rx#:[id number] Sodium Chloride 0.9% 1, 280 000 ml @ 70 mls/hr IV . [id number] [facility] Rx#:[id number] Intake, IV Titration 235 5 Amount Magnesium Sulfate-D5w Pmx 200 1 gm In Dextrose/Water 1 100ml.bag @ 100 mls/hr IVPB Q1H [facility] Rx#: [id number] Sodium Chloride 0.9% 1, 35 5 000 ml @ 5 mls/hr IV . Q24H [facility] Rx#:[id number] Oral 460 120 Output: Urine 745 290 115 Other: Voiding Method Indwelling Catheter Indwelling Catheter Indwelling Catheter # Bowel Movements 1 ABP, PAP, CO, CI - Last Documented Arterial Blood Pressure 128/42 - Exam GENERAL EXAM: Alert, slow to respond, very weak 64-year-old male, on 3 L nasal cannula, in no apparent distress. HEAD: Normocephalic. EYES: Normal reaction of pupils, equal size. NOSE: Clear with pink turbinates. THROAT: No erythema or exudates. NECK: No masses, no JVD. CHEST: No chest wall deformity. LUNGS: Equal air entry with bilateral scattered rhonchi. CVS: S1 and S2 normal with no audible murmur, regular rhythm. ABDOMEN: No hepatosplenomegaly, normal bowel sounds, no guarding or rigidity. SPINE: No scoliosis or deformity SKIN: No rashes CENTRAL NERVOUS SYSTEM: No focal deficits, tone is normal in all 4 extremities. EXTREMITIES: Edema of the right upper extremity. There is no peripheral edema. No clubbing, no cyanosis. Peripheral pulses are intact. - Labs CBC & Chem 7: 10/28/24 07:26 10/28/24 05:12 Labs: Abnormal Lab Results - Last 24 Hours (Table) 10/27/24 10/27/24 10/28/24 Range/Units 16:37 19:51 05:12 RBC (4.30-5.90) m/uL Hgb (13.0-17.5) gm/dL Hct (39.0-53.0) % MCV (80.0-100.0) fL MCHC (31.0-37.0) g/dL Macrocytosis Chloride 112 H (98-107) mmol/L Carbon Dioxide 21 L (22-30) mmol/L BUN 58 H (9-20) mg/dL Creatinine 3.68 H (0.66-1.25) mg/dL Glucose 66 L (74-99) mg/dL POC Glucose (mg/dL) 114 H 191 H (70-110) mg/dL Albumin 2.3 L (3.5-5.0) g/dL 10/28/24 10/28/24 Range/Units 07:26 11:08 RBC 2.33 L (4.30-5.90) m/uL Hgb 7.8 L (13.0-17.5) gm/dL Hct 25.3 L (39.0-53.0) % MCV 108.3 H (80.0-100.0) fL MCHC 30.9 L (31.0-37.0) g/dL Macrocytosis Marked A Chloride (98-107) mmol/L Carbon Dioxide (22-30) mmol/L BUN (9-20) mg/dL Creatinine (0.66-1.25) mg/dL Glucose (74-99) mg/dL POC Glucose (mg/dL) 125 H (70-110) mg/dL Albumin (3.5-5.0) g/dL Microbiology - Last 24 Hours (Table) 10/10/24 12:04 Gram Stain - Final Knee - Right Wound Culture - Final Assessment and Plan Assessment: Acute hypoxic respiratory failure, extubated on 10/22/2024. Currently on 3 L/min per nasal cannula Acute left lower lobe pneumonia secondary to Enterobacter aerogenes. Follow-up cultures revealed no growth Acute metabolic encephalopathy Septic shock, resolved Right-sided pleural effusion requiring thoracentesis and 400 cc of fluid removed Septic arthritis of the right knee requiring surgery cultures positive for strep A, patient was transitioned from cefepime to Invanz by infectious disease mostly because of the sputum cultures showing Enterobacter erogenous Chronic back pain may need MRI of the lumbosacral spine Chronic alcohol abuse and acute alcohol withdrawal syndrome recovered Status post arthroscopy and arthroscopic lavage and debridement of right knee with partial medial meniscectomy and medial femoral condyle and medial tibial plateau chondroplasty this was done on 10/06/2024 Acute kidney injury,, with worsening oliguria Acute on chronic anemia History of underlying coronary artery disease and previous stent placement History of LV dysfunction and cardiomyopathy with ejection fraction of 45% Paroxysmal atrial fibrillation currently patient is in sinus rhythm. On amiodarone and heparin drip Type 1 diabetes GERD without esophagitis Dyslipidemia History of ID History of degenerative joint disease Right upper extremity swelling and pain with limitation in range of motion, to be seen by orthopedic Suspect peripheral vessel occlusive disease and ischemic changes seen by vascular Plan: The patient was seen and evaluated Labs and medications reviewed Barium swallow results were reviewed No aspiration was evident On a dysphagia level 1 pured diet He remains on ertapenem per ID service Continued on bronchodilators Midodrine was added per nephrology Currently stable and on 3 L nasal cannula Could be transferred to the 3 S. stepdown unit We will continue to follow I have personally seen and examined the patient, performed the documentation and the assessment and plan as written. Number of minutes spent on the visit: 10 Dictation was produced using [employer] dictation software. Please excuse any grammatical, word or spelling errors.
--- NOTE | 2024-10-28 14:42 | P.PN ---
Subjective Progress Note Date: 10/28/24 64-year-old male who is being seen in the ICU due to hypovolemic shock and rhabdomyolysis. He is a poor historian due to altered mental status and unresponsiveness. All history is obtained from the chart. He initially presented to the emergency department after being found facedown on the ground with a contusion to his forehead and abrasions to his knee and left toes. She stated that he had been having nausea and vomiting for a day prior to being found down. He was noted to have diarrhea as well. Patient is a daily drinker and consumes about a fifth per day according to the notes he has not drank for the 2 days prior to this admission. He also has a history of type 1 diabetes mellitus. Initial EKG showed sinus tachycardia. Head/cervical spine CT showed no acute intracranial process and no acute fracture or traumatic subluxation of the cervical spine. Initial chest x-ray showed right middle lobe scarring/atelectasis, no acute pulmonary process. He had received 4 L of normal saline. Initial labs showed CK level of 18,113, WBCs 10.7, hemoglobin 12.5, sodium 126, creatinine 3.18 lactic acid 6.9, AST 401, ALT 65. Preliminary blood culture showed gram-positive cocci and patient was started on vancomycin. 24-hour interval change 10/12/2024 -- Patient is evaluated in the ICU. He remains intubated on mechanical ventilation - ABG shows pH 7.42, pCO2 38, pO2 74. - He is maintained on vasopressin 0.02 units/min, normal saline at 20 cc/h, IV hydrocortisone 50 mg every 6 hours, and Kefzol day 5. Labs are reviewed WBCs 17.4, hemoglobin 8.2, hematocrit 25.2, platelets 53, sodium 142, potassium 3.7, chloride 116, CO2 23, BUN 39, creatinine 1.18, glu cose 258. Ionized calcium 4.4. Magnesium 1.8. Today's chest x-ray is unchanged. Wound culture gram stain of the right knee preliminary report shows rare gram positive cocci. 10/13/2024 Patient is seen and evaluated in ICU at bedside; remains on the mechanical ventilator. Discussed with nursing staff. Concerns about elevated blood sugars; patient was placed on home dose of Lantus which did not help much - Blood gases show pO2 72, pCO2 41, and pH is 7.42. - The patient is on propofol at 35 mcg/kg/min, saline at 20 cc an hour, and vital high-protein at 60, with goal of 70. Yesterday, he had a brief spontaneous breathing trial, and he did poorly. Today he will again have a spontaneous breathing trial, of pressure support of 5 and CPAP of 5. He continues on Ancef. White count 18.8, hemoglobin 8.2, hematocrit 25.8, platelet count 78,000. Sodium 144, potassium 4.1, chlorides 117, CO2 26, BUN 47, creatinine 1.18. Glucose is 340. Albumin is 2.1. Previous blood cultures from October 06 show group A streptococci. Chest x-ray shows bibasilar infiltrates. -- For hyperglycemia I will increase dose of Lantus and add insulin lispro every 4 hours; continue with current sliding scale 10/14/2024 Patient is seen in follow-up today continues on Precedex and attempting to wean maintained on mechanical ventilation with an FiO2 of 50% PEEP is 5. Per nursing staff attempting sedation holiday although did not go well yesterday. Patient is maintained on antibiotics with infectious disease following and patient is status post right knee aspiration with preliminary culture showing strep a with positive blood cultures. Patient continues with significant swelling especially the scrotal area maintained on IV Lasix and will continue. No discussion of PEG and trach as of yet and patient remains full code. Prognosis is guarded. 10/15/2024 Patient is seen this morning continues to be in the ICU currently working on weaning FiO2 and undergoing sedation holiday. Patient is eye tracking and following commands and per pulmonary launderette attendant working on extubation today. Will await official report and monitor closely. Patient is continued on antibi otics with infectious disease following. 10/16/2024 Patient is seen in follow-up this morning extubated successfully currently maintained on 6 L high flow nasal cannula. Patient is awake and responding appropriately to questions and commands. Patient is extremely lethargic at times and significantly weak with significant edema noted. Sodium is elevated at 150 and is continued on D5 and water. Blood sugars have been elevated and will adjust insulins accordingly. Patient swallow eval performed and failed awaiting reevaluation with speech. Continue n.p.o. for now. White count remains elevated patient is maintained on antibiotics with infectious disease following. Awaiting repeat cultures. Procalcitonin 1.06. Questions and concerns were answered to the best of my ability with son at the bedside. 10/17/2024 Patient is evaluated today in follow up in the ICU. He was extubated yesterday. Continues on oxygen support on 100% BiPAP at this time. Cultures from the right knee arthroscopy reveals Strep A. Chest xray today reveals no change to the bibasilar opacities. Chest ultrasound reveals right pleural effusion pocket size 6.0 cm and left pleural effusion pocket size of 4.9 cm. Both sides marked for possible thoracentesis. Labs today reveal white blood cell count of 11.8, hgb 7.5, sodium 146, potassium 3.4, BUN 43, creatinine 1.06. Blood glucose 200s. Continues on IV amiodarone, IV cefepime, IV vancomycin. Patient is in normal sinus rhythm currently heart rate in the 80s. 10/18/2024 Patient evaluated today in follow up in the ICU. He is awake alert oriented continues on BiPAP. He is status post right sided thoracentesis with 400 mL off. Chest xray today reveals stable bilateral lower lobe infiltrate and small pleural effusion. White blood cell count today 10.4. Continues on IV vancomycin and IV cefepime. Remains on IV amiodarone. on IV heparin. Patient remains NPO at this time, speech therapy to follow up today to reassess. 10/19/2024 Patient remains in the ICU. He is on the mechanical ventilator, FiO2 of 50%. Chest x-ray today shows left lower lobe pneumonia and/or atelectasis and pleural effusion. Elian in the left lung base is obscuring the left heart border and the hemidiaphragm has decreased in the interval. White blood cell count today is 8.4, hemoglobin 7.1, sodium 144, BUN of 40, creatinine of 1.43. His viral panel is negative for all viruses checked. 10/20/2024 Patient remains the intensive care unit he is currently on mechanical ventilator with an FiO2 of 50%. He is awake and alert and responding to commands. His chest x-ray reveals continued acute coronary cardiopulmonary disease involving the retrocardiac region with no significant interval change. Repeat sputum reveals Enterobacter he continues on IV cefepime at this time. Hemoglobin level today is 6.7 he will receive 1 unit of packed red blood cells. His creatinine is up to 1.51 today. Continues on oral amiodarone for the atrial fibrillation was taken off of anticoagulation secondary to the decreased hemoglobin. Patient is sedated with propofol at this time. He is also receiving IV Lasix daily prognosis remains guarded. 10/21/2024 Patient remains in the intensive care unit. Remains on the mechanical ventilator. He is currently sedated with propofol. He is alert and following commands. Chest xray unchanged continues to show pneumonia with sputum culture s howing enterobacter. He remains on IV cefepime. Hemoglobin better today at 7.8. BUN 42 creatinine 1.67. 10/22/2024 Patient is evaluated today in the intensive care unit. Patient was extubated today. He is awake alert and oriented. He is complaining of some back pain. Has IV dilaudid on board. Chest xray today reveals no evidence of pleural effusion, focal consolidation, or pneumothorax. He remains edematous. Creatinine 1.87 today. On IV lasix which has been increased to BID by nephrology. 3L of urine output in the last 24 hours. 10/23/2024 Patient evaluated today in follow up in the ICU. Currently on 2L of oxygen via nasal cannula with saturations of 99%. Remains on IV cefepime. Chest xray today reveals left lung airspace opacity. Creatinine up to 2.1 today IV lasix has been discontinued. Patient has been placed on normal saline at 75 mls/hr. Speech therapy re consulted for swallow evaluation post extubation. 10/24/2024 Patient evaluated today in follow up remains in the ICU. Patient underwent neuro evaluation today. Brain CT was done revealing no acute bleed or mass effect. Mi ld age-appropriate senescent changes. Marked calcification of basal artery and significant stenosis cannot be excluded. Mild to moderate fluid in the mastoid air cells bilaterally. BUN 46 creatinine 2.12. Continues on normal saline at 75 mls/hr. Continues on IV cefepime. 10/25/2024 Patient remains in the ICU with multiple consultations following. Patient continues to be encephalopathic with neurology following. Orthopedics to reevaluate the upper extremity weakness and also vascular surgery was consulted as there is concerns of occlusive disease of the left lower extremity with discoloration of the toes. Patient continues on antibiotics and continues to require 2 L of oxygen. Patient is maintained on dysphagia ground diet and strongly recommend aspiration precautions and supervision with meals along with head of the bed elevated 30 to 45 degrees at all times. Patient is currently af ebrile with no reports of chest pain or shortness of breath. 1 dose of IV Lasix was given today. 10/26/2024 Patient remains in the ICU. Continues to be confused and more lethargic today. Neurology following and felt this was encephalopathy. He is not using this right arm and he does have pain when touching that arm. It is edematous.Vascular evalated the patient for the left diabetic foot wounds which have dry gangrene and did not feel there was ischemia to the leg. He remains on 2L of oxygen via nasal cannula. Labs today hemoglobin 7.3, BUN 51, creatinine 2.66. Remains on IV cefepime which can also cause confusion. 10/27/2024 Patient evaluated in follow-up in the intensive care unit. He is currently sitting up in the chair family at the bedside. He is more awake alert and oriented he is able to state his name and birthday. He does continue to have significant right upper extremity weakness and also mild right lower extremity weakness. This was discussed with neurology and as his mentation has improved brain and cervical neck MRI are both ordered for tomorrow. His creatinine today is 3.0. He has been taken off of the normal saline and also remains off diuretics. Patient was transition to IV ertapenem taken off of the cefepime at this time. Chest x-ray shows no change in the left lung opacification and probable small pleural effusion. Development of a small right pleural effusion. 10/28/2024 Patient is seen in the ICU with multiple consultations following lethargic although arousable awaiting a transfer out of the ICU once a bed on 3 S. becomes available. Patient is awake although fatigues easily. Patient reports he is eating although not eating much and continues to have weakness. Recommend PT/OT therapy daily. Awaiting cervical neck MRI which has been pending for quite some time. Kidney functions worsening and 3.6 today. Blood pressures are soft and patient was given a dose of Lasix yesterday. Urine output remains marginal and will be monitored closely. Recommend strict intake and output monitoring and documenting. Midodrine being added per nephrology and will follow-up on repeat labs. Patient continues on ertapenem with infectious disease following. Blood sugars have been on the lower side and will adjust insulins and continue with sl iding scale with Accu-Cheks before meals and at bedtime. Patient currently denies chest pain or worsening shortness of breath and is currently maintained on 3 L via nasal cannula and oxygen saturations have been above 94%. Review of systems: Constitutional: reports of fatigue, no fever, or chills Cardiovascular: No reports of chest pain or palpitations Respiratory: No reports of worsening shortness of breath reports continued weak cough GI: No reports of nausea, vomiting, or diarrhea, : No reports of dysuria or retention Neurovascular: reports of generalized weakness and continued swelling of upper and lower extremities that is slightly improved All medications have been reviewed Physical exam: Gen: This is a 64-year-old male who is maintained on 3 L nasal cannula., well-developed, elderly appearing, ill-appearing, appears older than stated age, lethargic although arousable and more awake today responding appropriately to questions and commands HEENT: Head is atraumatic, normocephalic. Pupils equal, round. Sclerae is anicteric. NECK: Supple. No JVD. No lymphadenopathy. No thyromegaly. LUNGS: Diminished breath sounds bilaterally with some bronchial congestion and coarse scattered rhonchi. No intercostal retractions. HEART: S1, S2 are muffled ABDOMEN: Soft. Somewhat taut, positive bowel sounds are present. No masses. No tenderness. Significant scrotal edema noted, minimally improved EXTREMITIES: Bilateral upper and lower extremity edema noted. No calf tenderness. Generalized upper and lower extremity edema along with scrotal swelling noted Right upper extremity weakness. NEUROLOGICAL: Patient is awake, alert and oriented x 2, diffusely weak Assessment: -Chronic alcohol abuse with acute alcohol withdrawal syndrome; Thiamine and protonix. No longer going through acute withdrawals. -Altered mental status acute metabolic and septic encephalopathy. Brain CT reveals no acute stroke. Patient continues to have right upper and lower extremity weakness. Unable to officially rule out stroke. -Acute hypoxic respiratory failure was intubated following knee surgery on 10/10 and successfully extubated on 10/15/24. re-intubated on 10/18/2024 and now extubated on 10/22/24. Status post bronchoscopy on 10/18. -Congestive heart failure with an EF of 45%, diastolic dysfunction -Paroxysmal atrial fibrillation transitioned to oral amiodarone Currently on subq heparin. Was taken off IV heparin due to decreased hemoglobin -Acute blood loss anemia requiring transfusion -Right sided pleural effusion status post right sided thoracentesis with 400 mL off. -Oral thrush -Rhabdomyolysis secondary to immobility due to fall. Improving with IV hydration. We will continue to monitor strict STERLING's, daily weights, renal function electrolytes -Acute kidney injury secondary to ATN due to to septic shock and rhabdomyolysis. Was initially improving and now with worsening renal function, nephrology following -Relative adrenal insufficiency. On IV hydrocortisone. -Transaminitis. Improving. -Streptococcus group A bacteremia. Currently on ertapenem per ID recommendation; continue to monitor CBC, CRP and procalcitonin. Possibly secondary to right knee infection -Right knee pain with swelling, status post aspiration along with arthroscopic lavage, culture showing strep a with septic arthritis -Hyponatremia, likely hypovolemic; resolved. -Episode of hypernatremia treated with D5W, sodium normalized. This was due to free water deficit. 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 -History of coronary artery disease with previous catheterization and stent placement. -Hypertension; currently not on any antihypertensive medication. -Sepsis, present on admission possibly secondary to right knee arthritis with bacteremia GI prophylaxis DVT prophylaxis No code Plan: Patient continues in the ICU with multiple consultations following maintained on IV antibiotics status post arthroscopy with lavage of the right knee and final cultures showing Strep A. Currently on ertapenem per ID recommendations and cefepime has been discontinued. Patient is a transfer out of the ICU once a bed becomes available Repeat blood cultures thus far are negative and will continue on IV antibiotics with ID following Sputum culture showing Enterobacter patient is status post bronchoscopy sputum cultures are now negative Speech therapy has been reconsulted post extubation and is maintained on a dysphagia ground diet and strongly recommend aspiration precautions with supervision with meals and head of the bed elevated 30 to 45 degrees at all times Blood sugars variable and have been on the lower side the last 2 days, will adjust long-acting and continue with Accu-Cheks before meals and at bedtime. H ypoglycemia protocol as well as needed. Follow-up on repeat labs and monitor kidney functions and electrolytes closely. Due to the worsening renal function, lasix has been discontinued and now fluids have been discontinued. He is monitored off both. Indwelling catheter remains in place with minimally adequate urine output. Nephrology following brain/cervical neck MRI without contrast has been ordered. Orthopedics did recommend lumbar spine MRI with and without contrast although patients renal function now with creatinine of 3 he is unable to get oral contrast at this time. Physical therapy and occupational therapy have been re-consulted. And recommend evaluating daily as patient is significantly weak and has had prolonged hospitalization. Patient will most likely require ECF on discharge Repeat blood work in the AM Overall prognosis remains guarded at this time The impression and plan of care has been dictated by Mercy Gilmore, Nurse Practitioner as directed. Dr. Randall MD I have performed a history and examination and MDM of this patient, discussed the same with the dictator, and agree with the dictator's assessment and plan as written ,documented as a scribe. Based on total visit time, I have performed more than 50% of the visit. Objective - Vital Signs Vital signs: Vital Signs Temp 97.8 F 10/28/24 08:00 Pulse 80 10/28/24 08:47 Resp 21 10/28/24 08:00 BP 124/65 10/28/24 08:00 Pulse Ox 92 L 10/28/24 08:47 FiO2 4 10/28/24 04:00 Intake & Output 10/27/24 10/28/24 10/28/24 18:59 06:59 18:59 Intake Total 985 110 130 Output Total 745 290 30 Balance 240 -180 100 Weight 93.7 kg Intake: IV 290 105 10 0.9 Normal Saline 10 55 10 Ertapenem 0.5 gm In 50 Sodium Chloride 0.9% 50 ml @ 100 mls/hr IVPB HS [facility] Rx#:[id number] Sodium Chloride 0.9% 1, 280 000 ml @ 70 mls/hr IV . [id number] [facility] Rx#:[id number] Intake, IV Titration 235 5 Amount Magnesium Sulfate-D5w Pmx 200 1 gm In Dextrose/Water 1 100ml.bag @ 100 mls/hr IVPB Q1H [facility] Rx#: [id number] Sodium Chloride 0.9% 1, 35 5 000 ml @ 5 mls/hr IV . Q24H [facility] Rx#:[id number] Oral 460 120 Output: Urine 745 290 30 Other: Voiding Method Indwelling Catheter Indwelling Catheter # Bowel Movements 1 ABP, PAP, CO, CI - Last Documented Arterial Blood Pressure 128/42 - Labs CBC & Chem 7: 10/28/24 07:26 10/28/24 05:12 Labs: Abnormal Lab Results - Last 24 Hours (Table) 10/27/24 10/27/24 10/27/24 Range/Units 03:57 11:04 16:37 RBC (4.30-5.90) m/uL Hgb (13.0-17.5) gm/dL Hct (39.0-53.0) % MCV (80.0-100.0) fL MCHC (31.0-37.0) g/dL Macrocytosis Chloride (98-107) mmol/L Carbon Dioxide (22-30) mmol/L BUN (9-20) mg/dL Creatinine (0.66-1.25) mg/dL Glucose (74-99) mg/dL POC Glucose (mg/dL) 220 H 114 H (70-110) mg/dL Creatine Kinase <20 L (55-170) U/L Albumin (3.5-5.0) g/dL 10/27/24 10/28/24 10/28/24 Range/Units 19:51 05:12 07:26 RBC 2.33 L (4.30-5.90) m/uL Hgb 7.8 L (13.0-17.5) gm/dL Hct 25.3 L (39.0-53.0) % MCV 108.3 H (80.0-100.0) fL MCHC 30.9 L (31.0-37.0) g/dL Macrocytosis Marked A Chloride 112 H (98-107) mmol/L Carbon Dioxide 21 L (22-30) mmol/L BUN 58 H (9-20) mg/dL Creatinine 3.68 H (0.66-1.25) mg/dL Glucose 66 L (74-99) mg/dL POC Glucose (mg/dL) 191 H (70-110) mg/dL Creatine Kinase (55-170) U/L Albumin 2.3 L (3.5-5.0) g/dL
--- NOTE | 2024-10-28 16:14 | P.PN ---
Subjective Progress Note Date: 10/28/24 I am following up with the patient and patient continues to be drowsy. He continues to have elevated creatinine and is trending up. Continues to be slightly hypoxic. Objective - Vital Signs Vital signs: Vital Signs Temp 98.3 F 10/28/24 14:30 Pulse 80 10/28/24 15:30 Resp 16 10/28/24 14:30 BP 132/79 10/28/24 14:30 Pulse Ox 92 L 10/28/24 14:30 FiO2 4 10/28/24 04:00 Intake & Output 10/27/24 10/28/24 10/28/24 18:59 06:59 18:59 Intake Total 985 110 135 Output Total 745 290 115 Balance 240 -180 20 Weight 93.7 kg 93.7 kg Intake: IV 290 105 15 0.9 Normal Saline 10 55 15 Ertapenem 0.5 gm In 50 Sodium Chloride 0.9% 50 ml @ 100 mls/hr IVPB HS [facility] Rx#:[id number] Sodium Chloride 0.9% 1, 280 000 ml @ 70 mls/hr IV . [id number] [facility] Rx#:[id number] Intake, IV Titration 235 5 Amount Magnesium Sulfate-D5w Pmx 200 1 gm In Dextrose/Water 1 100ml.bag @ 100 mls/hr IVPB Q1H [facility] Rx#: [id number] Sodium Chloride 0.9% 1, 35 5 000 ml @ 5 mls/hr IV . Q24H P[facility] Rx#:[id number] Oral 460 120 Output: Urine 745 290 115 Other: Voiding Method Indwelling Catheter Indwelling Catheter Indwelling Catheter # Bowel Movements 1 ABP, PAP, CO, CI - Last Documented Arterial Blood Pressure 128/42 - Exam General: Sitting in recliner chair and is not in acute distress. INTEGUMENATRY: Significant edema of the right upper extremity as well as bilateral lower extremity. He is tender to touch over the right upper and lower extremity mostly in the upper extremity as well as at the right knee. Neuro: Limited. The patient is drowsy but is awake able to voice. He is oriented to self. He is following few simple commands. Language is limited. Pupils are round 2 to 3 mm bilaterally and reactive to light. . No facial weakness. The motor is hard to assess individual muscle strength because of his cooperation. But he is able to lift up bilateral upper extremity above gravity lifting the left upper extremity more than the right but the right upper extremity has edema compared to the left. He is also lifting the right lower extremity and minimal over the left lower. He has significant edema over the bilateral lower. Plantars are mute. Somewhat the workup during this hospital visit consisted of: Patient had episodes of hypoglycemia today as low as 30s. Vitamin B12: 2485 Serum folate: 9.40 Ammonia <9 TSH: 4.380 He has acute on chronic kidney insufficiency on presentation his kidney was elevated and resolved then back now again it is trending up. His sputum cultures Enterococcus aeruginosa's, knee cultures are positive for s trep a and blood cultures are positive for strep a The patient had a repeat CT of the head today and it is reported as no acute bleed or mass effect. Mild age-appropriate senescent changes. Marked c alcification of basilar artery and significant stenosis cannot be excluded. I personally reviewed the CT and I agree there is no acute or subacute stroke. Routine EEG: Is abnormal. The background slowing is suggestive of moderate to severe encephalopathy, likely due to toxic-metabolic derangement. The triphasic waves are likely due to toxic-metabolic deragement. Otherwise, no focal slowing, epileptiform discharge or seizure on the EEG. - Labs CBC & Chem 7: 10/28/24 07:26 10/28/24 05:12 Labs: Abnormal Lab Results - Last 24 Hours (Table) 10/27/24 10/27/24 10/28/24 Range/Units 16:37 19:51 05:12 RBC (4.30-5.90) m/uL Hgb (13.0-17.5) gm/dL Hct (39.0-53.0) % MCV (80.0-100.0) fL MCHC (31.0-37.0) g/dL Macrocytosis Chloride 112 H (98-107) mmol/L Carbon Dioxide 21 L (22-30) mmol/L BUN 58 H (9-20) mg/dL Creatinine 3.68 H (0.66-1.25) mg/dL Glucose 66 L (74-99) mg/dL POC Glucose (mg/dL) 114 H 191 H (70-110) mg/dL Albumin 2.3 L (3.5-5.0) g/dL 10/28/24 10/28/24 Range/Units 07:26 11:08 RBC 2.33 L (4.30-5.90) m/uL Hgb 7.8 L (13.0-17.5) gm/dL Hct 25.3 L (39.0-53.0) % MCV 108.3 H (80.0-100.0) fL MCHC 30.9 L (31.0-37.0) g/dL Macrocytosis Marked A Chloride (98-107) mmol/L Carbon Dioxide (22-30) mmol/L BUN (9-20) mg/dL Creatinine (0.66-1.25) mg/dL Glucose (74-99) mg/dL POC Glucose (mg/dL) 125 H (70-110) mg/dL Albumin (3.5-5.0) g/dL Microbiology - Last 24 Hours (Table) 10/10/24 12:04 Gram Stain - Final Knee - Right Wound Culture - Final Assessment and Plan Assessment: This is a 64-year-old gentleman with significant alcohol use who presented emergency department on 10/06/2024 since the patient was found facedown on the ground with confusion to his forehead abrasion to his knees and left toes. He is found to be an septic shock with septic arthritis as well as had left lower lobe pneumonia. He was intubated on a ventilator. He also has acute kidney injury. He had right pleural effusion requiring thoracentesis. He has episode of hypoglycemia today in the 30s. Altered mental status seems due to metabolic encephalopathy as well as septic encephalopathy. Repeat CT of the head is unremarkable for any acute or subacute stroke. EEG is negative for seizure or discharges. On examination patient has better strength appears left more than the right but is limited because of edema and pain over the right side as well as has edema over the right upper extremity compared to the left upper extremity. Rule out any central or spinal cause but I think it is more due to his edema pain over the right side limiting his movement. Septic shock Septic arthritis of the right knee requiring surgery and the cultures were positive for strep a and he is on IV antibiotic Acute kidney injury Acute left lower lobe pneumonia Rhabdomyolysis likely due to fall/on the ground--- resolved Episodes of hypoglycemia as low as 30s--resolved Right sided pleural effusion requiring thoracentesis Chronic right knee pain status post arthroscopy and lavage department of the right knee with partial medial meniscectomy and medial femoral condyle and medial tibial plateau chondroplasty History of coronary artery disease status post stent History of proximal atrial fibrillation on amiodarone and heparin drip Type 1 diabetes Dyslipidemia History of [place] Chronic back pain Chronic alcohol abuse Plan: Continue thiamine 100 mg daily. MRI of the brain, MRI cervical spine and MRI lumbar are ordered and pending Orthopedic surgery team is on board PT OT and BASEBALL COACH are consulted Will defer the rest of the medical management to primary and other specialist. Nephrology is on board ID is on board Will defer the rest of the medical management to primary and other specialist Time with Patient: Less than 30
[2024-10-28 16:26] LABS: Glucose,Whole Blood 167 mg/dL (70-110)
[2024-10-28 19:56] LABS: Glucose,Whole Blood 189 mg/dL (70-110)
[2024-10-28] MEDS: INSULIN DETEMIR (LEVEMIR) 100 UNIT/ML SYR SQ SCH (20:49)
[2024-10-29 02:06] LABS: Appearance,Urine Turbid (Clear); Bacteria,Urine Moderate /hpf; Bilirubin,Urine Negative (Negative); Blood,Urine Moderate (Negative); Budding Yeast,Urine Many /hpf; Color,Urine Colorless; Glucose,Urine (UA) Negative (Negative); Hyaline Casts,Urine 46 /lpf (0-2); Ketones,Urine Negative (Negative); Leukocyte Esterase,Urine Large (Negative); Mucus,Urine Occasional /hpf; Nitrite,Urine Negative (Negative); Protein,Urine 2+ (Negative); RBC,Urine 31 /hpf (0-5); Specific Gravity,Urine 1.018 (1.001-1.035); Squamous Epithelial Cell,Urine 2 /hpf (0-4); Urobilinogen,Urine <2.0 mg/dL (<2.0); WBC,Urine >182 /hpf (0-5)
[2024-10-29 06:10] LABS: Glucose,Whole Blood 107 mg/dL (70-110)
[2024-10-29 07:59] LABS: Basophils % (A) 0 %; Eosinophils % (A) 1 %; HCT 25.6 % (39.0-53.0); Hypochromasia Moderate; Lymphocytes # (A) 1.3 k/uL (1.0-4.8); Lymphocytes % (A) 17 %; MCH 33.6 pg (25.0-35.0); MCHC 31.4 g/dL (31.0-37.0); MCV 107.1 fL (80.0-100.0); Macrocytosis Marked; Mean Platelet Volume 9.7; Monocytes # (A) 0.4 k/uL (0-1.0); Monocytes % (A) 5 %; Neutrophils % (A) 76 %; Platelet Count 332 k/uL (150-450); RBC 2.39 m/uL (4.30-5.90); RDW 15.5 % (11.5-15.5); WBC 7.9 k/uL (3.8-10.6)
[2024-10-29 08:12] LABS: ALT 11 U/L (4-49); AST 22 U/L (17-59); African American GFR (CKD) 16 (>60 ml/min/1.73 sqM); Albumin 2.2 g/dL (3.5-5.0); Alkaline Phosphatase 125 U/L (38-126); Anion Gap 7 mmol/L; Blood Urea Nitrogen 59 mg/dL (9-20); Calcium 9.3 mg/dL (8.4-10.2); Carbon Dioxide 23 mmol/L (22-30); Chloride 109 mmol/L (98-107); Glucose 78 mg/dL (74-99); Magnesium 1.5 mg/dL (1.6-2.3); Non-African American GFR(CKD) 14 (>60 ml/min/1.73 sqM); Potassium 4.4 mmol/L (3.5-5.1); Sodium 139 mmol/L (137-145); Total Bilirubin 0.3 mg/dL (0.2-1.3); Total Protein 6.4 g/dL (6.3-8.2)
[2024-10-29 08:26] LABS: Gamma Globulin 1.82 g/dL (0.70-1.50)
--- NOTE | 2024-10-29 09:00 | P.PN ---
Subjective Progress Note Date: 10/28/24 Principal diagnosis: Reason for follow-up is Streptococcus agalactiae bacteremia Patient is a 64-year-old male past medical history significant for diabetes mellitus hypertension hyperlipidemia [place] osteoarthritis coronary disease patient was brought into the hospital after apparently the patient was found to be facedown on the ground with contusion to his forehead and abrasion to his knee and some bloody toes, patient did have a fever subsequently blood cultures came back positive with Streptococcus agalactiae prompting this consultation. Patient noticed to have swelling of the right knee aspirate was purulent subsequently the patient did have a right knee washout completed by orthopedics on 10/10/2024. On today's evaluation that is 10/28/2024, patient has been afebrile, patient is breathing comfortably and is currently on 3 L nasal cannula oxygen, patient d enies having any worsening cough no chest pain, patient denies nausea vomiting or diarrhea and no abdominal pain. Patient white count 6.6 creatinine 3.68 Objective - Vital Signs Vital signs: Vital Signs Temp 97.8 F 10/28/24 08:00 Pulse 76 10/28/24 10:00 Resp 19 10/28/24 10:00 BP 114/58 10/28/24 10:00 Pulse Ox 94 L 10/28/24 10:00 FiO2 4 10/28/24 04:00 Intake & Output 10/27/24 10/28/24 10/28/24 18:59 06:59 18:59 Intake Total 985 110 135 Output Total 745 290 115 Balance 240 -180 20 Weight 93.7 kg Intake: IV 290 105 15 0.9 Normal Saline 10 55 15 Ertapenem 0.5 gm In 50 Sodium Chloride 0.9% 50 ml @ 100 mls/hr IVPB HS [facility] Rx#:[id number] Sodium Chloride 0.9% 1, 280 000 ml @ 70 mls/hr IV . [id number] [facility] Rx#:[id number] Intake, IV Titration 235 5 Amount Magnesium Sulfate-D5w Pmx 200 1 gm In Dextrose/Water 1 100ml.bag @ 100 mls/hr IVPB Q1H [facility] Rx#: [id number] Sodium Chloride 0.9% 1, 35 5 000 ml @ 5 mls/hr IV . Q24H [facility] Rx#:[id number] Oral 460 120 Output: Urine 745 290 115 Other: Voiding Method Indwelling Catheter Indwelling Catheter Indwelling Catheter # Bowel Movements 1 ABP, PAP, CO, CI - Last Documented Arterial Blood Pressure 128/42 - Exam GENERAL DESCRIPTION: Middle-age male lying in bed in no distress RESPIRATORY SYSTEM: Unlabored breathing , coarse breath sounds bilaterally HEART: S1 S2 regular rate and rhythm , ABDOMEN: Soft , no tenderness EXTREMITIES: Swelling to the lower extremity and right knee but no redness - Labs CBC & Chem 7: 10/29/24 06:41 10/29/24 06:41 Labs: Abnormal Lab Results - Last 24 Hours (Table) 10/27/24 10/27/24 10/28/24 Range/Units 16:37 19:51 05:12 RBC (4.30-5.90) m/uL Hgb (13.0-17.5) gm/dL Hct (39.0-53.0) % MCV (80.0-100.0) fL MCHC (31.0-37.0) g/dL Macrocytosis Chloride 112 H (98-107) mmol/L Carbon Dioxide 21 L (22-30) mmol/L BUN 58 H (9-20) mg/dL Creatinine 3.68 H (0.66-1.25) mg/dL Glucose 66 L (74-99) mg/dL POC Glucose (mg/dL) 114 H 191 H (70-110) mg/dL Albumin 2.3 L (3.5-5.0) g/dL 10/28/24 10/28/24 Range/Units 07:26 11:08 RBC 2.33 L (4.30-5.90) m/uL Hgb 7.8 L (13.0-17.5) gm/dL Hct 25.3 L (39.0-53.0) % MCV 108.3 H (80.0-100.0) fL MCHC 30.9 L (31.0-37.0) g/dL Macrocytosis Marked A Chloride (98-107) mmol/L Carbon Dioxide (22-30) mmol/L BUN (9-20) mg/dL Creatinine (0.66-1.25) mg/dL Glucose (74-99) mg/dL POC Glucose (mg/dL) 125 H (70-110) mg/dL Albumin (3.5-5.0) g/dL Microbiology - Last 24 Hours (Table) 10/10/24 12:04 Gram Stain - Final Knee - Right Wound Culture - Final Assessment and Plan (1) Sepsis Current Visit: Yes Status: Acute Code(s): A41.9 - SEPSIS, UNSPECIFIED ORGANISM SNOMED Code(s): 95328417 (2) Streptococcal bacteremia Current Visit: Yes Status: Acute Code(s): R78.81 - BACTEREMIA; B95.5 - UNSP STREPTOCOCCUS THE CAUSE OF DISEASES CLASSD [facility] SNOMED Code(s): 4910 21732476 Plan: 1patient presented to the hospital with sepsis in this patient who did have fever tachycardia elevated white count and now with evidence of streptococcal bacteremia which is usually of skin and soft tissue origin 2-patient noticed to have right knee effusion has been evaluated by orthopedics and is status post aspiration with purulent drainage subsequently did have right knee washout by orthopedic cultures are pending may need further workup includi ng MRI of the spine when stable. Ortho is following the patient closely 3patient right knee fluid culture also came back positive with group A strep 4-patient did have left-sided pneumonia patient required reintubation and also status post bronchoscopy and lavage sputum culture so far negative, initial culture growing Enterobacter that is sensitive to cefepime patient subsequently has been successfully extubated 5the patient remains to be afebrile white count normal also noticed improvement in his mentation was antibiotic switched to ertapenem 500 mg daily dose adjusted to kidney function which will be continued and monitor clinical course closely Dictation was produced using [employer] dictation software. please excuse any grammatical, word or spelling errors. Time with Patient: Less than 30
[2024-10-29 11:21] LABS: Glucose,Whole Blood 98 mg/dL (70-110)
--- NOTE | 2024-10-29 12:24 | P.PN ---
Subjective HISTORY OF PRESENT ILLNESS: The patient is a 64-year-old male who was admitted with an acute CVA. He was found to have new onset of atrial fibrillation. Over the course of the admission he had drops in hemoglobin and therefore has not been started on anticoagulation. He remains in sinus rhythm on oral amiodarone. Patient continues to work with physical therapy as well as speech. He currently denies any chest pain or difficulty breathing. 10/29/2024 Patient examined this morning at the bedside. Patient is somewhat lethargic. He appears to be resting comfortably. Patient currently denies chest pain or pressure. He denies shortness of breath. He is maintaining sinus mechanism. Hemoglobin 8.0. Creatinine worsened today at 4.24 up from 3.68. PHYSICAL EXAM: VITAL SIGNS: Reviewed. GENERAL: Well-developed in no acute distress. NECK: Supple. No JVD or thyromegaly LUNGS: Respirations even and unlabored. Lungs essentially clear to auscultation bilaterally. HEART: Regular rate and rhythm. S1 and S2 heard. EXTREMITIES: Normal range of motion. No clubbing or cyanosis. Peripheral pulses intact. No lower extremity edema ASSESSMENT: Acute CVA with right-sided hemiplegia Paroxysmal atrial fibrillation Acute left lower lobe pneumonia Anemia secondary to blood loss Acute renal failure Septic arthritis, status post arthroscopy and arthroscopic lavage History of alcohol abuse PLAN: Continue current cardiac medications Continue telemetry monitoring From a cardiac standpoint, recommend anticoagulation for atrial fibrillation. However will defer to internal medicine and additional consulting providers Further recommendations pending patient course Nurse practitioner note has been reviewed by physician. Signing provider agrees with the documented findings, assessment, and plan of care documented by [employer]LECT[employer] G[employer]ING EDITOR as a scribe. Objective - Vital Signs Vital signs: Vital Signs Temp 97.7 F 10/29/24 08:00 Pulse 68 10/29/24 12:00 Resp 18 10/29/24 08:00 BP 120/69 10/29/24 12:00 Pulse Ox 95 10/29/24 12:00 FiO2 4 10/28/24 04:00 Intake & Output 10/28/24 10/29/24 10/29/24 18:59 06:59 18:59 Intake Total 255 120 Output Total 590 100 Balance -335 -100 120 Weight 93.7 kg 91 kg Intake: IV 15 0.9 Normal Saline 15 Oral 240 120 Output: Urine 590 100 Other: Voiding Method Indwelling Catheter Indwelling Catheter Indwelling Catheter ABP, PAP, CO, CI - Last Documented Arterial Blood Pressure 128/42 - Labs CBC & Chem 7: 10/29/24 06:41 10/29/24 06:41 Labs: Abnormal Lab Results - Last 24 Hours (Table) 10/24/24 10/28/24 10/28/24 Range/Units 02:34 16:24 19:54 RBC (4.30-5.90) m/uL Hgb (13.0-17.5) gm/dL Hct (39.0-53.0) % MCV (80.0-100.0) fL Macrocytosis Chloride (98-107) mmol/L BUN (9-20) mg/dL Creatinine (0.66-1.25) mg/dL POC Glucose (mg/dL) 167 H 189 H (70-110) mg/dL Magnesium (1.6-2.3) mg/dL Albumin (3.5-5.0) g/dL Albumin (PEP) 1.60 L (3.80-4.90) g/dL Rsvcz-2-Gdialvamt 0.42 H (0.10-0.40) g/dL Gamma Globulins 1.82 H (0.70-1.50) g/dL Urine Protein (Negative) Urine Blood (Negative) Ur Leukocyte Esterase (Negative) Urine RBC (0-5) /hpf Urine WBC (0-5) /hpf Urine Bacteria (None) /hpf Hyaline Casts (0-2) /lpf Urine Mucus (None) /hpf Urine Yeast (Budding) (None) /hpf 10/29/24 10/29/24 10/29/24 Range/Units 00:05 06:41 06:41 RBC 2.39 L (4.30-5.90) m/uL Hgb 8.0 L (13.0-17.5) gm/dL Hct 25.6 L (39.0-53.0) % MCV 107.1 H (80.0-100.0) fL Macrocytosis Marked A Chloride 109 H (98-107) mmol/L BUN 59 H (9-20) mg/dL Creatinine 4.24 H (0.66-1.25) mg/dL POC Glucose (mg/dL) (70-110) mg/dL Magnesium 1.5 L (1.6-2.3) mg/dL Albumin 2.2 L (3.5-5.0) g/dL Albumin (PEP) (3.80-4.90) g/dL Dkytn-4-Bkchihqai (0.10-0.40) g/dL Gamma Globulins (0.70-1.50) g/dL Urine Protein 2+ H (Negative) Urine Blood Moderate H (Negative) Ur Leukocyte Esterase Large H (Negative) Urine RBC 31 H (0-5) /hpf Urine WBC >182 H (0-5) /hpf Urine Bacteria Moderate H (None) /hpf Hyaline Casts 46 H (0-2) /lpf Urine Mucus Occasional H (None) /hpf Urine Yeast (Budding) Many H (None) /hpf Microbiology - Last 24 Hours (Table) 10/18/24 15:00 Fungal Culture - Preliminary Sputum 10/10/24 12:04 Gram Stain - Final Knee - Right Wound Culture - Final
--- NOTE | 2024-10-29 12:42 | P.PN ---
Subjective Progress Note Date: 10/29/24 Principal diagnosis: Reason for follow-up is Streptococcus agalactiae bacteremia Patient is a 64-year-old male past medical history significant for diabetes mellitus hypertension hyperlipidemia [place] osteoarthritis coronary disease patient was brought into the hospital after apparently the patient was found to be facedown on the ground with contusion to his forehead and abrasion to his knee and some bloody toes, patient did have a fever subsequently blood cultures came back positive with Streptococcus agalactiae prompting this consultation. Patient noticed to have swelling of the right knee aspirate was purulent subsequently the patient did have a right knee washout completed by orthopedics on 10/10/2024. On today's evaluation that is 10/29/2024, Patient is afebrile this morning patient denies having any chest pain shortness of breath or any worsening cough, the patient is currently on 3 L nasal cannula oxygen, patient denies any abdominal pain no diarrhea no nausea no vomiting. Patient white count 7.9, creatinine is 4.24 Objective - Vital Signs Vital signs: Vital Signs Temp 97.7 F 10/29/24 08:00 Pulse 68 10/29/24 12:00 Resp 18 10/29/24 08:00 BP 120/69 10/29/24 12:00 Pulse Ox 95 10/29/24 12:00 FiO2 4 10/28/24 04:00 Intake & Output 10/28/24 10/29/24 10/29/24 18:59 06:59 18:59 Intake Total 255 120 Output Total 590 100 Balance -335 -100 120 Weight 93.7 kg 91 kg Intake: IV 15 0.9 Normal Saline 15 Oral 240 120 Output: Urine 590 100 Other: Voiding Method Indwelling Catheter Indwelling Catheter Indwelling Catheter ABP, PAP, CO, CI - Last Documented Arterial Blood Pressure 128/42 - Exam GENERAL DESCRIPTION: Middle-age male lying in bed in no distress RESPIRATORY SYSTEM: Unlabored breathing , coarse breath sounds bilaterally HEART: S1 S2 regular rate and rhythm , ABDOMEN: Soft , no tenderness EXTREMITIES: Swelling to the lower extremity and right knee but no redness - Labs CBC & Chem 7: 10/29/24 06:41 10/29/24 06:41 Labs: Abnormal Lab Results - Last 24 Hours (Table) 10/24/24 10/28/24 10/28/24 Range/Units 02:34 16:24 19:54 RBC (4.30-5.90) m/uL Hgb (13.0-17.5) gm/dL Hct (39.0-53.0) % MCV (80.0-100.0) fL Macrocytosis Chloride (98-107) mmol/L BUN (9-20) mg/dL Creatinine (0.66-1.25) mg/dL POC Glucose (mg/dL) 167 H 189 H (70-110) mg/dL Magnesium (1.6-2.3) mg/dL Albumin (3.5-5.0) g/dL Albumin (PEP) 1.60 L (3.80-4.90) g/dL Hdaco-8-Nsesnruge 0.42 H (0.10-0.40) g/dL Gamma Globulins 1.82 H (0.70-1.50) g/dL Urine Protein (Negative) Urine Blood (Negative) Ur Leukocyte Esterase (Negative) Urine RBC (0-5) /hpf Urine WBC (0-5) /hpf Urine Bacteria (None) /hpf Hyaline Casts (0-2) /lpf Urine Mucus (None) /hpf Urine Yeast (Budding) (None) /hpf 10/29/24 10/29/24 10/29/24 Range/Units 00:05 06:41 06:41 RBC 2.39 L (4.30-5.90) m/uL Hgb 8.0 L (13.0-17.5) gm/dL Hct 25.6 L (39.0-53.0) % MCV 107.1 H (80.0-100.0) fL Macrocytosis Marked A Chloride 109 H (98-107) mmol/L BUN 59 H (9-20) mg/dL Creatinine 4.24 H (0.66-1.25) mg/dL POC Glucose (mg/dL) (70-110) mg/dL Magnesium 1.5 L (1.6-2.3) mg/dL Albumin 2.2 L (3.5-5.0) g/dL Albumin (PEP) (3.80-4.90) g/dL Hfxym-4-Kxpyjbrfh (0.10-0.40) g/dL Gamma Globulins (0.70-1.50) g/dL Urine Protein 2+ H (Negative) Urine Blood Moderate H (Negative) Ur Leukocyte Esterase Large H (Negative) Urine RBC 31 H (0-5) /hpf Urine WBC >182 H (0-5) /hpf Urine Bacteria Moderate H (None) /hpf Hyaline Casts 46 H (0-2) /lpf Urine Mucus Occasional H (None) /hpf Urine Yeast (Budding) Many H (None) /hpf Microbiology - Last 24 Hours (Table) 10/18/24 15:00 Fungal Culture - Preliminary Sputum 10/10/24 12:04 Gram Stain - Final Knee - Right Wound Culture - Final Assessment and Plan (1) Sepsis Current Visit: Yes Status: Acute Code(s): A41.9 - SEPSIS, UNSPECIFIED ORGANISM SNOMED Code(s): 47754287 (2) Streptococcal bacteremia Current Visit: Yes Status: Acute Code(s): R78.81 - BACTEREMIA; B95.5 - UNSP STREPTOCOCCUS THE [facility] Code(s): 796405125972 Plan: 1patient presented to the hospital with sepsis in this patient who did have fever tachycardia elevated white count and now with evidence of streptococcal bacteremia which is usually of skin and soft tissue origin 2-patient noticed to have right knee effusion has been evaluated by orthopedics and is status post aspiration with purulent drainage subsequently did have right knee washout by orthopedic cultures are pending may need further workup including MRI of the spine when stable. Ortho is following the patient closely 3patient right knee fluid culture also came back positive with group A strep 4-patient did have left-sided pneumonia patient required reintubation and also status post bronchoscopy and lavage sputum culture so far negative, initial culture growing Enterobacter that is sensitive to cefepime patient subsequently has been successfully extubated 5the patient remains to be afebrile white count has been normal, patient is currently being treated ertapenem 500 mg daily dose adjusted to kidney function and monitor clinical course closely Dictation was produced using [employer] dictation software. please excuse any grammatical, word or spelling errors. Time with Patient: Less than 30
--- NOTE | 2024-10-29 13:16 | P.PN ---
Subjective patient is seen for follow-up for acute kidney injury. Renal function has been worsening with serum creatinine increased to 4.24 mg/dL. Blood pressure not low now. Status post IV Lasix 2 days ago for significance leg edema and scrotal edema. No significant shortness of breath. Patient remains on 2-4 L of oxygen via nasal cannula. Urine output documented at 1035 mL for 24 hours Objective - Vital Signs Vital signs: Vital Signs Temp 97.7 F 10/29/24 08:00 Pulse 68 10/29/24 12:00 Resp 18 10/29/24 08:00 BP 120/69 10/29/24 12:00 Pulse Ox 95 10/29/24 12:00 FiO2 4 10/28/24 04:00 Intake & Output 10/28/24 10/29/24 10/29/24 18:59 06:59 18:59 Intake Total 255 120 Output Total 590 100 Balance -335 -100 120 Weight 93.7 kg 91 kg Intake: IV 15 0.9 Normal Saline 15 Oral 240 120 Output: Urine 590 100 Other: Voiding Method Indwelling Catheter Indwelling Catheter Indwelling Catheter ABP, PAP, CO, CI - Last Documented Arterial Blood Pressure 128/42 - Exam patient is awake and following commands. Examination of the heart S1 and S2 Examination of the lungs bilateral breath sounds are heard Abdomen is soft nontender Examination of lower extremities shows edema 2+. significant scrotal edema - Labs CBC & Chem 7: 10/29/24 06:41 10/29/24 06:41 Labs: Abnormal Lab Results - Last 24 Hours (Table) 10/24/24 10/28/24 10/28/24 Range/Units 02:34 16:24 19:54 RBC (4.30-5.90) m/uL Hgb (13.0-17.5) gm/dL Hct (39.0-53.0) % MCV (80.0-100.0) fL Macrocytosis Chloride (98-107) mmol/L BUN (9-20) mg/dL Creatinine (0.66-1.25) mg/dL POC Glucose (mg/dL) 167 H 189 H (70-110) mg/dL Magnesium (1.6-2.3) mg/dL Albumin (3.5-5.0) g/dL Albumin (PEP) 1.60 L (3.80-4.90) g/dL [id number] 0.42 H (0.10-0.40) g/dL Gamma Globulins 1.82 H (0.70-1.50) g/dL Urine Protein (Negative) Urine Blood (Negative) Ur Leukocyte Esterase (Negative) Urine RBC (0-5) /hpf Urine WBC (0-5) /hpf Urine Bacteria (None) /hpf Hyaline Casts (0-2) /lpf Urine Mucus (None) /hpf Urine Yeast (Budding) (None) /hpf 10/29/24 10/29/24 10/29/24 Range/Units 00:05 06:41 06:41 RBC 2.39 L (4.30-5.90) m/uL Hgb 8.0 L (13.0-17.5) gm/dL Hct 25.6 L (39.0-53.0) % MCV 107.1 H (80.0-100.0) fL Macrocytosis Marked A Chloride 109 H (98-107) mmol/L BUN 59 H (9-20) mg/dL Creatinine 4.24 H (0.66-1.25) mg/dL POC Glucose (mg/dL) (70-110) mg/dL Magnesium 1.5 L (1.6-2.3) mg/dL Albumin 2.2 L (3.5-5.0) g/dL Albumin (PEP) (3.80-4.90) g/dL Zuvxf-2-Lyayqaaja (0.10-0.40) g/dL Gamma Globulins (0.70-1.50) g/dL Urine Protein 2+ H (Negative) Urine Blood Moderate H (Negative) Ur Leukocyte Esterase Large H (Negative) Urine RBC 31 H (0-5) /hpf Urine WBC >182 H (0-5) /hpf Urine Bacteria Moderate H (None) /hpf Hyaline Casts 46 H (0-2) /lpf Urine Mucus Occasional H (None) /hpf Urine Yeast (Budding) Many H (None) /hpf Microbiology - Last 24 Hours (Table) 10/18/24 15:00 Fungal Culture - Preliminary Sputum 10/10/24 12:04 Gram Stain - Final Knee - Right Wound Culture - Final Assessment and Plan Assessment: 1. Acute kidney injury secondary to ATN secondary to septic shock and rhabdomyolysis. Creatinine 3.18 on admission and is improved to 0.9 -1.0. Serum creatinine has increased again to 4.2 today, blood pressure is not low now. Urine output is borderline. No hydronephrosis noted on kidney ultrasound. 2. Rhabdomyolysis secondary to immobility. CK levels trending down. 3. Strep bacteremia on antibiotics. 4. Anion gap metabolic acidosis secondary to acute kidney injury and lactic acidosis.improved. 5. Hyponatremia secondary to hypovolemia as well as acute kidney injury. Better. 6. Hypomagnesemia from poor intake and alcohol abuse. Replaced. 7. History of alcohol abuse. 8. Hypocalcemia, replaced. 25-hydroxy vitamin D was 26.5, started on supplementation. PTH appropriately increased. 9. Hypokalemia from poor intake. Replaced. Better. 10. A-fib with RVR status post amiodarone drip. 11. Volume overload with significant scrotal edema Plan: continue with midodrine Add IV Lasix Repeat labs in a.m. Hemodialysis if renal function continues to worsen
[2024-10-29] MEDS: FUROSEMIDE 10 MG/ML 4 ML VIAL IV SCH (13:25)
--- NOTE | 2024-10-29 14:51 | P.PN ---
Subjective Progress Note Date: 10/29/24 64-year-old male who is being seen in the ICU due to hypovolemic shock and rhabdomyolysis. He is a poor historian due to altered mental status and unresponsiveness. All history is obtained from the chart. He initially presented to the emergency department after being found facedown on the ground with a contusion to his forehead and abrasions to his knee and left toes. She stated that he had been having nausea and vomiting for a day prior to being found down. He was noted to have diarrhea as well. Patient is a daily drinker and consumes about a fifth per day according to the notes he has not drank for the 2 days prior to this admission. He also has a history of type 1 diabetes mellitus. Initial EKG showed sinus tachycardia. Head/cervical spine CT showed no acute intracranial process and no acute fracture or traumatic subluxation of the cervical spine. Initial chest x-ray showed right middle lobe scarring/atelectasis, no acute pulmonary process. He had received 4 L of normal saline. Initial labs showed CK level of 18,113, WBCs 10.7, hemoglobin 12.5, sodium 126, creatinine 3.18 lactic acid 6.9, AST 401, ALT 65. Preliminary blood culture showed gram-positive cocci and patient was started on vancomycin. 24-hour interval change 10/12/2024 -- Patient is evaluated in the ICU. He remains intubated on mechanical ventilation - ABG shows pH 7.42, pCO2 38, pO2 74. - He is maintained on vasopressin 0.02 units/min, normal saline at 20 cc/h, IV hydrocortisone 50 mg every 6 hours, and Kefzol day 5. Labs are reviewed WBCs 17.4, hemoglobin 8.2, hematocrit 25.2, platelets 53, sodium 142, potassium 3.7, chloride 116, CO2 23, BUN 39, creatinine 1.18, gluco se 258. Ionized calcium 4.4. Magnesium 1.8. Today's chest x-ray is unchanged. Wound culture gram stain of the right knee preliminary report shows rare gram positive cocci. 10/13/2024 Patient is seen and evaluated in ICU at bedside; remains on the mechanical ventilator. Discussed with nursing staff. Concerns about elevated blood sugars; patient was placed on home dose of Lantus which did not help much - Blood gases show pO2 72, pCO2 41, and pH is 7.42. - The patient is on propofol at 35 mcg/kg/min, saline at 20 cc an hour, and vital high-protein at 60, with goal of 70. Yesterday, he had a brief spontaneous breathing trial, and he did poorly. Today he will again have a spontaneous breathing trial, of pressure support of 5 and CPAP of 5. He continues on Ancef. White count 18.8, hemoglobin 8.2, hematocrit 25.8, platelet count 78,000. Sodium 144, potassium 4.1, chlorides 117, CO2 26, BUN 47, creatinine 1.18. Glucose is 340. Albumin is 2.1. Previous blood cultures from October 06 show group A streptococci. Chest x-ray shows bibasilar infiltrates. -- For hyperglycemia I will increase dose of Lantus and add insulin lispro every 4 hours; continue with current sliding scale 10/14/2024 Patient is seen in follow-up today continues on Precedex and attempting to wean maintained on mechanical ventilation with an FiO2 of 50% PEEP is 5. Per nursing staff attempting sedation holiday although did not go well yesterday. Patient is maintained on antibiotics with infectious disease following and patient is status post right knee aspiration with preliminary culture showing strep a with positive blood cultures. Patient continues with significant swelling especially the scrotal area maintained on IV Lasix and will continue. No discussion of PEG and trach as of yet and patient remains full code. Prognosis is guarded. 10/15/2024 Patient is seen this morning continues to be in the ICU currently working on weaning FiO2 and undergoing sedation holiday. Patient is eye tracking and following commands and per pulmonary aix administrator working on extubation today. Will await official report and monitor closely. Patient is continued on antibiotics with infectious disease following. 10/16/2024 Patient is seen in follow-up this morning extubated successfully currently maintained on 6 L high flow nasal cannula. Patient is awake and responding appropriately to questions and commands. Patient is extremely lethargic at times and significantly weak with significant edema noted. Sodium is elevated at 150 and is continued on D5 and water. Blood sugars have been elevated and will adjust insulins accordingly. Patient swallow eval performed and failed awaiting reevaluation with speech. Continue n.p.o. for now. White count remains elevated patient is maintained on antibiotics with infectious disease following. Awaiting repeat cultures. Procalcitonin 1.06. Questions and concerns were answered to the best of my ability with son at the bedside. 10/17/2024 Patient is evaluated today in follow up in the ICU. He was extubated yesterday. Continues on oxygen support on 100% BiPAP at this time. Cultures from the right knee arthroscopy reveals Strep A. Chest xray today reveals no change to the bibasilar opacities. Chest ultrasound reveals right pleural effusion pocket size 6.0 cm and left pleural effusion pocket size of 4.9 cm. Both sides marked for possible thoracentesis. Labs today reveal white blood cell count of 11.8, hgb 7. 5, sodium 146, potassium 3.4, BUN 43, creatinine 1.06. Blood glucose 200s. Continues on IV amiodarone, IV cefepime, IV vancomycin. Patient is in normal sinus rhythm currently heart rate in the 80s. 10/18/2024 Patient evaluated today in follow up in the ICU. He is awake alert oriented continues on BiPAP. He is status post right sided thoracentesis with 400 mL off. Chest xray today reveals stable bilateral lower lobe infiltrate and small pleural effusion. White blood cell count today 10.4. Continues on IV vancomycin and IV cefepime. Remains on IV amiodarone. on IV heparin. Patient remains NPO at this time, speech therapy to follow up today to reassess. 10/19/2024 Patient remains in the ICU. He is on the mechanical ventilator, FiO2 of 50%. Chest x-ray today shows left lower lobe pneumonia and/or atelectasis and pleural effusion. Elian in the left lung base is obscuring the left heart border and the hemidiaphragm has decreased in the interval. White blood cell count today is 8.4, hemoglobin 7.1, sodium 144, BUN of 40, creatinine of 1.43. His viral panel is negative for all viruses checked. 10/20/2024 Patient remains the intensive care unit he is currently on mechanical ventilator with an FiO2 of 50%. He is awake and alert and responding to commands. His chest x-ray reveals continued acute coronary cardiopulmonary disease involving the retrocardiac region with no significant interval change. Repeat sputum reveals Enterobacter he continues on IV cefepime at this time. Hemoglobin level today is 6.7 he will receive 1 unit of packed red blood cells. His creatinine is up to 1.51 today. Continues on oral amiodarone for the atrial fibrillation was taken off of anticoagulation secondary to the decreased hemoglobin. Patient is sedated with propofol at this time. He is also receiving IV Lasix daily prognosis remains guarded. 10/21/2024 Patient remains in the intensive care unit. Remains on the mechanical ventilator. He is currently sedated with propofol. He is alert and following commands. Chest xray unchanged continues to show pneumonia with sputum culture showing enterobacter. He remains on IV cefepime. Hemoglobin better today at 7.8. BUN 42 creatinine 1.67. 10/22/2024 Patient is evaluated today in the intensive care unit. Patient was extubated today. He is awake alert and oriented. He is complaining of some back pain. Has IV dilaudid on board. Chest xray today reveals no evidence of pleural effusion, focal consolidation, or pneumothorax. He remains edematous. Creatinine 1.87 today. On IV lasix which has been increased to BID by nephrology. 3L of urine output in the last 24 hours. 10/23/2024 Patient evaluated today in follow up in the ICU. Currently on 2L of oxygen via nasal cannula with saturations of 99%. Remains on IV cefepime. Chest xray today reveals left lung airspace opacity. Creatinine up to 2.1 today IV lasix has been discontinued. Patient has been placed on normal saline at 75 mls/hr. Speech therapy re consulted for swallow evaluation post extubation. 10/24/2024 Patient evaluated today in follow up remains in the ICU. Patient underwent neuro evaluation today. Brain CT was done revealing no acute bleed or mass effect. Mild age-appropriate senescent changes. Marked calcification of basal artery and significant stenosis cannot be excluded. Mild to moderate fluid in the mastoid air cells bilaterally. BUN 46 creatinine 2.12. Continues on normal saline at 75 mls/hr. Continues on IV cefepime. 10/25/2024 Patient remains in the ICU with multiple consultations following. Patient continues to be encephalopathic with neurology following. Orthopedics to reevaluate the upper extremity weakness and also vascular surgery was consulted as there is concerns of occlusive disease of the left lower extremity with discoloration of the toes. Patient continues on antibiotics and continues to require 2 L of oxygen. Patient is maintained on dysphagia ground diet and strongly recommend aspiration precautions and supervision with meals along with head of the bed elevated 30 to 45 degrees at all times. Patient is currently afebrile with no reports of chest pain or shortness of breath. 1 dose of IV Lasix was given today. 10/26/2024 Patient remains in the ICU. Continues to be confused and more lethargic today. Neurology following and felt this was encephalopathy. He is not using this right arm and he does have pain when touching that arm. It is edematous.Vascular evalated the patient for the left diabetic foot wounds which have dry gangrene and did not feel there was ischemia to the leg. He remains on 2L of oxygen via nasal cannula. Labs today hemoglobin 7.3, BUN 51, creatinine 2.66. Remains on IV cefepime which can also cause confusion. 10/27/2024 Patient evaluated in follow-up in the intensive care unit. He is currently sitting up in the chair family at the bedside. He is more awake alert and oriented he is able to state his name and birthday. He does continue to have significant right upper extremity weakness and also mild right lower extremity weakness. This was discussed with neurology and as his mentation has improved brain and cervical neck MRI are both ordered for tomorrow. His creatinine today is 3.0. He has been taken off of the normal saline and also remains off diuretics. Patient was transition to IV ertapenem taken off of the cefepime at this time. Chest x-ray shows no change in the left lung opacification and probable small pleural effusion. Development of a small right pleural effusion. 10/28/2024 Patient is seen in the ICU with multiple consultations following lethargic although arousable awaiting a transfer out of the ICU once a bed on 3 S. becomes available. Patient is awake although fatigues easily. Patient reports he is eating although not eating much and continues to have weakness. Recommend PT/OT therapy daily. Awaiting cervical neck MRI which has been pending for quite some time. Kidney functions worsening and 3.6 today. Blood pressures are soft and patient was given a dose of Lasix yesterday. Urine output remains marginal and will be monitored closely. Recommend strict intake and output monitoring and documenting. Midodrine being added per nephrology and will follow-up on repeat labs. Patient continues on ertapenem with infectious disease following. Blood sugars have been on the lower side and will adjust insulins and continue with sliding scale with Accu-Cheks before meals and at bedtime. Patient currently denies chest pain or worsening shortness of breath and is currently maintained on 3 L via nasal cannula and oxygen saturations have been above 94%. 10/29/2024 Patient evaluated today on the medical floor as a movement of the intensive care unit. He is able to sit at the edge of the bed today and will continue to work with PT OT daily. He will need subacute rehab on discharge. He is still awaiting a brain and cervical neck MRI unsure if he can have an MRI due to the surgical plates in his neck discussed this with nursing. Also discussed with orthopedics that he is unable to get contrast due to the renal dysfunction and per Dr. Foss group the MRI needs to be with contrast and we will hold off on the lumbar MRI with and without contrast at this time. Did undergo barium swallow and is on pured diet with nectar thick liquids. He remains off of the IV cefepime at this time and currently on IV ertapenem. He remains on IV Lasix daily. Review of systems: Constitutional: reports of fatigue, no fever, or chills Cardiovascular: No reports of chest pain or palpitations Respiratory: No reports of worsening shortness of breath reports continued weak cough GI: No reports of nausea, vomiting, or diarrhea, : No reports of dysuria or retention Neurovascular: reports of generalized weakness and continued swelling of upper and lower extremities that is slightly improved All medications have been reviewed Physical exam: Gen: This is a 64-year-old male who is maintained on 3 L nasal cannula., well-de veloped, elderly appearing, ill-appearing, appears older than stated age, lethargic although arousable and more awake today responding appropriately to questions and commands HEENT: Head is atraumatic, normocephalic. Pupils equal, round. Sclerae is anicteric. NECK: Supple. No JVD. No lymphadenopathy. No thyromegaly. LUNGS: Diminished breath sounds bilaterally with some bronchial congestion and c oarse scattered rhonchi. No intercostal retractions. HEART: S1, S2 are muffled ABDOMEN: Soft. Somewhat taut, positive bowel sounds are present. No masses. No tenderness. Significant scrotal edema noted, minimally improved EXTREMITIES: Bilateral upper and lower extremity edema noted. No calf ten derness. Generalized upper and lower extremity edema along with scrotal swelling noted Right upper extremity weakness. NEUROLOGICAL: Patient is awake, alert and oriented x 2, diffusely weak Assessment: -Chronic alcohol abuse with acute alcohol withdrawal syndrome; Thiamine and protonix. No longer going through acute withdrawals. -Altered mental status acute metabolic and septic encephalopathy. Brain CT reveals no acute stroke. Patient continues to have right upper and lower extremity weakness. Unable to officially rule out stroke. -Acute hypoxic respiratory failure was intubated following knee surgery on 10/10 and successfully extubated on 10/15/24. re-intubated on 10/18/2024 and now extubated on 10/22/24. Status post bronchoscopy on 10/18. -Congestive heart failure with an EF of 45%, diastolic dysfunction -Paroxysmal atrial fibrillation transitioned to oral amiodarone Currently on subq heparin. Was taken off IV heparin due to decreased hemoglobin -Acute blood loss anemia requiring transfusion -Right sided pleural effusion status post right sided thoracentesis with 400 mL off. -Oral thrush -Rhabdomyolysis secondary to immobility due to fall. Improving with IV hyd ration. We will continue to monitor strict STERLING's, daily weights, renal function electrolytes -Acute kidney injury secondary to ATN due to to septic shock and rhabdomyolysis. Was initially improving and now with worsening renal function, nephrology following -Relative adrenal insufficiency. On IV hydrocortisone. -Transaminitis. Improving. -Streptococcus group A bacteremia. Currently on ertapenem per ID recommendation; continue to monitor CBC, CRP and procalcitonin. Possibly secondary to right knee infection -Right knee pain with swelling, status post aspiration along with arthroscopic lavage, culture showing strep a with septic arthritis -Hyponatremia, likely hypovolemic; resolved. -Episode of hypernatremia treated with D5W, sodium normalized. This was due to free water deficit. 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 -History of coronary artery disease with previous catheterization and stent placement. -Hypertension; currently not on any antihypertensive medication. -Sepsis, present on admission possibly secondary to right knee arthritis with bacteremia GI prophylaxis DVT prophylaxis No code Plan: Patient continues in the ICU with multiple consultations following maintained on IV antibiotics status post arthroscopy with lavage of the right knee and final cultures showing Strep A. Currently on ertapenem per ID recommendations and cefepime has been discontinued. Repeat blood cultures thus far are negative and will continue on IV antibiotics with ID following Sputum culture showing Enterobacter patient is status post bronchoscopy sputum cultures are now negative Speech therapy has been reconsulted post extubation and is maintained on a dysphagia ground diet and strongly recommend aspiration precautions with supervision with meals and head of the bed elevated 30 to 45 degrees at all times Blood sugars variable and have been on the lower side the last 2 days, will adjust long-acting and continue with Accu-Cheks before meals and at bedtime. Hypoglycemia protocol as well as needed. Follow-up on repeat labs and monitor kidney functions and electrolytes closely. Due to the worsening renal function, lasix has been discontinued and now fluids have been discontinued. He is monitored off both. Indwelling catheter remains in place with minimally adequate urine output. Nephrology following brain/cervical neck MRI without contrast has been ordered. Orthopedics did recommend lumbar spine MRI with and without contrast although patients renal function now with creatinine of 3 he is unable to get oral contrast at this time. Physical therapy and occupational therapy have been re-consulted. And recommend evaluating daily as patient is significantly weak and has had prolonged hospitalization. Patient will most likely require ECF on discharge Repeat blood work in the AM Overall prognosis remains guarded at this time The impression and plan of care has been dictated by Sharlene Pendleton, Nurse Practitioner as directed. Dr. Randall MD I have performed a history and examination and MDM of this patient, discussed the same with the dictator, and agree with the dictator's assessment and plan as written ,documented as a scribe. Based on total visit time, I have performed more than 50% of the visit. Objective - Vital Signs Vital signs: Vital Signs Temp 97.7 F 10/29/24 08:00 Pulse 68 10/29/24 12:00 Resp 18 10/29/24 08:00 BP 120/69 10/29/24 12:00 Pulse Ox 95 10/29/24 12:00 FiO2 4 10/28/24 04:00 Intake & Output 10/28/24 10/29/24 10/29/24 18:59 06:59 18:59 Intake Total 255 120 Output Total 590 100 Balance -335 -100 120 Weight 93.7 kg 91 kg Intake: IV 15 0.9 Normal Saline 15 Oral 240 120 Output: Urine 590 100 Other: Voiding Method Indwelling Catheter Indwelling Catheter Indwelling Catheter ABP, PAP, CO, CI - Last Documented Arterial Blood Pressure 128/42 - Labs CBC & Chem 7: 10/29/24 06:41 10/29/24 06:41 Labs: Abnormal Lab Results - Last 24 Hours (Table) 10/24/24 10/28/24 10/28/24 Range/Units 02:34 16:24 19:54 RBC (4.30-5.90) m/uL Hgb (13.0-17.5) gm/dL Hct (39.0-53.0) % MCV (80.0-100.0) fL Macrocytosis Chloride (98-107) mmol/L BUN (9-20) mg/dL Creatinine (0.66-1.25) mg/dL POC Glucose (mg/dL) 167 H 189 H (70-110) mg/dL Magnesium (1.6-2.3) mg/dL Albumin (3.5-5.0) g/dL Albumin (PEP) 1.60 L (3.80-4.90) g/dL Ceipt-3-[id number] 0.42 H (0.10-0.40) g/dL Gamma Globulins 1.82 H (0.70-1.50) g/dL Urine Protein (Negative) Urine Blood (Negative) Ur Leukocyte Esterase (Negative) Urine RBC (0-5) /hpf Urine WBC (0-5) /hpf Urine Bacteria (None) /hpf Hyaline Casts (0-2) /lpf Urine Mucus (None) /hpf Urine Yeast (Budding) (None) /hpf 10/29/24 10/29/24 10/29/24 Range/Units 00:05 06:41 06:41 RBC 2.39 L (4.30-5.90) m/uL Hgb 8.0 L (13.0-17.5) gm/dL Hct 25.6 L (39.0-53.0) % MCV 107.1 H (80.0-100.0) fL Macrocytosis Marked A Chloride 109 H (98-107) mmol/L BUN 59 H (9-20) mg/dL Creatinine 4.24 H (0.66-1.25) mg/dL POC Glucose (mg/dL) (70-110) mg/dL Magnesium 1.5 L (1.6-2.3) mg/dL Albumin 2.2 L (3.5-5.0) g/dL Albumin (PEP) (3.80-4.90) g/dL [id number] (0.10-0.40) g/dL Gamma Globulins (0.70-1.50) g/dL Urine Protein 2+ H (Negative) Urine Blood Moderate H (Negative) Ur Leukocyte Esterase Large H (Negative) Urine RBC 31 H (0-5) /hpf Urine WBC >182 H (0-5) /hpf Urine Bacteria Moderate H (None) /hpf Hyaline Casts 46 H (0-2) /lpf Urine Mucus Occasional H (None) /hpf Urine Yeast (Budding) Many H (None) /hpf Microbiology - Last 24 Hours (Table) 10/18/24 15:00 Fungal Culture - Preliminary Sputum 10/10/24 12:04 Gram Stain - Final Knee - Right Wound Culture - Final Assessment and Plan Time with Patient: Less than 30
--- NOTE | 2024-10-29 15:37 | P.PN ---
Subjective Progress Note Date: 10/29/24 Patient is a 64-year-old male who is being seen in the ICU due to hypovolemic shock and rhabdomyolysis. He is a poor historian due to altered mental status and unresponsiveness. All history is obtained from the chart. He initially presented to the emergency department after being found facedown on the ground with a contusion to his forehead and abrasions to his knee and left toes. She stated that he had been having nausea and vomiting for a day prior to being found down. He was noted to have diarrhea as well. Patient is a daily drinker and consumes about a fifth per day according to the notes he has not drank for the 2 days prior to this admission. He also has a history of type 1 diabetes m ellitus. Initial EKG showed sinus tachycardia. Head/cervical spine CT showed no acute intracranial process and no acute fracture or traumatic subluxation of the cervical spine. Initial chest x-ray showed right middle lobe scarring/atelectasis, no acute pulmonary process. He had received 4 L of normal saline. Initial labs showed CK level of 18,113, WBCs 10.7, hemoglobin 12.5, sodium 126, creatinine 3.18 lactic acid 6.9, AST 401, ALT 65. Preliminary blood culture showed gram-positive cocci and patient was started on vancomycin. On 10/20/2024, the patient remains sedated on propofol. Arousable and moving all 4 extremities. He is status post reintubation on 10/18/2024 and is status post bronchoscopy x 2 with evacuation of mucous plugs from his left lower lobe. The patient has Enterobacter erogenous in his sputum and the patient remains on IV cefepime. This morning, he remains on assist-control mode with rate of 14, tidal volume of 500, FiO2 of 50% with a PEEP of 10. Blood gas shows significant improvement oxygenation and the pO2 is up to 153 and a pH is at 7.4 with a pCO2 of 41. The patient remains on low-dose norepinephrine at 0.04 mcg/kg/min. He remains on IV heparin for paroxysmal A-fib. Hemoglobin dropped down to 6.7 and the patient is going to receive a unit of packed RBC. Creatinine is up to 1.5. He remains on vital high-protein at rate of 40 cc an hour. Fluid balance is +1.2 L over the past 24 hours. He is afebrile. Patient was seen today on 10/21/24, patient remains in the ICU, patient is on mechanical ventilation with assist-control rate of 14 tidal volume 500 FiO2 40% and PEEP of 6 ABG showed a pO2 of 27 pCO2 34 pH of 7.47. No changes were made in vent settings. Patient remains on propofol at 40 mcg/kg/min, received a unit of packed RBCs yesterday for low hemoglobin. Remains on vital HP patient is receiving cefepime for Enterobacter around [place] and his sputum. Patient had strep a in the right knee joint patient is covered with cefepime remains on Lasix 40 mg IV push daily his initial presentation to the hospital was when he was found facedown on the ground with a contusion on his forehead and abrasion on his left knee as well as left toes. Patient is known to be a heavy drinker, consumes 1/5/day according to the notes in the chart. Patient is also known to have type 1 diabetes, intubation on 10/10/2024 following his knee surgery patient was extubated on 10/15, however he had to be reintubated on 10/18 bronchoscopy was done for extensive pneumonia involving the left lower lobe and mucous plugs were suctioned. Patient also had another bronchoscopy on 09/22 with improvement in his chest x-ray findings and left lower lobe pneumonia. Sputum cultures have been positive for Enterobacter allergies. Has been on IV cefepime WBC count today 6.3 hemoglobin 7.8 metabolic profile is normal BUN is 42 creatinine 1.67. Chest x-ray continues to show bibasilar airspace disease left lower lobe more so than right lower lobe Patient was eval today and 10/22/2024, patient remains in the ICU, intubated and mechanically ventilated, on assist-control rate of 14 tidal volume 500 FiO2 40% PEEP of 6 ABG showed a pO2 of 93 pCO2 34 pH of 7.50 peak airway pressure is 23 Plateau pressure is 16 continues to have some clear yellow sputum that is easily suctioned will not require bronchoscopy today considering the easily suctioned the mucus secretions. Patient is on propofol at 40 mcg/kg/min vital HP at 40 mL/h IV fluid at KVO patient remains on antibiotics in the form of cefepime, he has Enterococcus in the sputum and he had strep pain from his knee. Leg susi on Lasix 40 mg twice daily chest x-ray is showing slight improvement in his bibasilar pneumonia hence I am not recommending bronchoscopy today I will try to give the patient a trial of weaning if possible. Labs today were reviewed WBC count is 5.8 hemoglobin 7.9 platelets are 306, electrolytes are normal BUN is 43 creatinine 1.85 Patient was seen today on 10/23/2024, remains in the ICU, however the patient was extubated yesterday and so far he seems to be tolerating the extubation well. Patient is on 3 L nasal cannula, he is alert, but extremely slow. And complaining of right upper extremity swelling and pain. Considering the patient had a fall I will recommend x-rays of the right upper extremity and I would recommend ultrasound/venous Doppler of the right upper extremity. Patient continues to have pneumonia based on chest x-ray, left lower lobe is quite concerning patient does not have a very good cough. Hoping he does not require bronchoscopy again. In the meantime he is on cefepime. Patient had worsening of his renal functioning and I discontinued his Lasix today. He is on subcu heparin for DVT prophylax. And I do not believe the patient is quite ready to be discharged out of the ICU yet, I will keep him in the ICU for another day. And follow-up chest x-ray will be done in a.m. His WBC count is 6 hemoglobin 8.2 electrolytes are normal BUN is 46 creatinine 2.19 Seen today on 10/24/2024, patient remains in the ICU, off mechanical ventilation, on2 L nasal cannula with O2 saturation between 94 to 97%. Patient is confused, he is not in any form of respiratory distress.WBC is 5.8 hemoglobin 7.6 electrolytes are normal BUN is 46 creatinine 2.22, slightly improved compared to yesterday after holding his diuretics chest x-ray is showing slight improvement in his pneumonia. However what seems to be quite concerning to me is his mental status patient seems to be confused, and continues to have difficulty moving his right upper extremity workup on the right upper extremity has been negative including x-rays and Doppler. Patient was seen today on 10/25/2024, patient remains in the ICU, mental status is basically about the same, patient remains encephalopathic, continues to have difficulty raising his right upper extremity hence orthopedics was consulted. Chest x-ray continues to show bilateral pneumonia left a bit worse than right, patient is on antibiotics for Enterobacter erogenous noted previously on his sputum. Patient is able to clear his secretions on his own, he does have a vigorous cough, his overall mental status seems to be a bit concerning, neurology was consulted on the patient today yesterday, felt that the patient may have metabolic encephalopathy. In addition to this the patient has some ischemic changes noted in the distal aspect of his left fourth toe and at the base of his big toe, hence I recommended vascular surgery evaluation. He does have good pulses by Doppler on that same foot. Labs today show WBC is 5.4 hemoglobin 7.7 electrolytes are normal BUN is 47 creatinine 2.30 Patient seen today on 10/26/2024, remains in ICU, remains on 4 L nasal cannula mentation is about the same, remains encephalopathic but follows simple instructions, continues to have issues with his right upper extremity patient is on IV fluid at KVO however I increased IV fluid today to 70 cc/h as his renal function seems to be getting a bit worse. And I am recommending that we stop diuretics altogether. Patient remains on cefepime for Enterobacter in his sputum. Chest x-ray continues show bilateral pneumonia minimal improvement noted. But continues to have significant infiltrates specially in the left lower lobe. WBC is 5.3 hemoglobin 7.3 basic metabolic profile is normal BUN is up to 51 creatinine up to 2.66 Patient was seen today on 10/27/2024, remains in the ICU remains on 4 L nasal can nula remains on IV fluid at 75 cc/h his urine output seems to be marginal down to 15/20 cc/h hence I am recommending a low-dose of Lasix 60 mg IV push x 1. Patient is becoming a bit more edematous hoping that he will improve with gentle diuresis. Renal functioning seems to be getting worse over the last few days in spite of holding the Lasix and inspite of hydrating the patient cautiously patient remains on Invanz for his Enterococcus erogenous in the sputum this is being addressed by infectious disease, chest x-ray continues show bilateral infiltrates left more so than right patient also has small bilateral pleural effusions. Lasix was given today and he remains on antibiotics for his un derlying pneumonia. The patient is seen today October 28, 2024 in follow-up in the intensive care [facility]. He is currently sitting up in bed. Awake. Somewhat slow to respond. He is maintaining good O2 saturation mid 90s on 3 L/min per nasal cannula. He has been afebrile. Hemodynamically stable. Right knee culture was positive for strep A. Previous sputum culture had been positive for enterofactor aerogenes. Follow-up cultures revealed no growth. Pleural fluid cultures revealed no growth. He 2. Potassium 4.9. Bicarb 21. BUN 58. Creatinine 3.68. Glucose 66. He is continued on DuoNeb and elations. Heparin for DVT prophylaxis. Antibiotics in the form of ertapenem. The patient is seen today October 29, 2024 in follow-up on the selective care unit. He was transferred out of the ICU yesterday. He is currently sitting up in bed. Awake and alert. Still somewhat slow to respond. He is maintaining O2 saturations in the 90s on 3 L/min per nasal cannula. He is been afebrile. Hemodynamically stable. He is status post 1 unit of packed red blood cells this admission. Current hemoglobin 8.0. Platelets 332. White count 7.9. Sodium 139. Potassium 4.4. Bicarb 23. BUN 59. Creatinine 4.24. Glucose 78. Urinalysis with moderate bacteria. Culture pending. He remains on ertapenem. Continued on bronchodilators. Remains on IV diuretics. Currently in a negative balance. Heparin for DVT prophylaxis. Objective - Vital Signs Vital signs: Vital Signs Temp 97.7 F 10/29/24 08:00 Pulse 80 10/29/24 15:16 Resp 18 10/29/24 14:00 BP 120/69 10/29/24 12:00 Pulse Ox 95 10/29/24 12:00 FiO2 4 10/28/24 04:00 Intake & Output 10/28/24 10/29/24 10/29/24 18:59 06:59 18:59 Intake Total 255 120 Output Total 590 100 Balance -335 -100 120 Weight 93.7 kg 91 kg Intake: IV 15 0.9 Normal Saline 15 Oral 240 120 Output: Urine 590 100 Other: Voiding Method Indwelling Catheter Indwelling Catheter Indwelling Catheter ABP, PAP, CO, CI - Last Documented Arterial Blood Pressure 128/42 - Exam GENERAL EXAM: Alert, slow to respond, 64-year-old male, sitting up in bed, on 3 L nasal cannula, in no apparent distress. HEAD: Normocephalic. EYES: Normal reaction of pupils, equal size. NOSE: Clear with pink turbinates. THROAT: No erythema or exudates. NECK: No masses, no JVD. CHEST: No chest wall deformity. LUNGS: Equal air entry with bilateral scattered rhonchi. CVS: S1 and S2 normal with no audible murmur, regular rhythm. ABDOMEN: No hepatosplenomegaly, normal bowel sounds, no guarding or rigidity. SPINE: No scoliosis or deformity SKIN: No rashes CENTRAL NERVOUS SYSTEM: No focal deficits, tone is normal in all 4 extremities. EXTREMITIES: Edema of the right upper extremity. There is no peripheral edema. No clubbing, no cyanosis. Peripheral pulses are intact. - Labs CBC & Chem 7: 10/29/24 06:41 10/29/24 06:41 Labs: Abnormal Lab Results - Last 24 Hours (Table) 10/24/24 10/28/24 10/28/24 Range/Units 02:34 16:24 19:54 RBC (4.30-5.90) m/uL Hgb (13.0-17.5) gm/dL Hct (39.0-53.0) % MCV (80.0-100.0) fL Macrocytosis Chloride (98-107) mmol/L BUN (9-20) mg/dL Creatinine (0.66-1.25) mg/dL POC Glucose (mg/dL) 167 H 189 H (70-110) mg/dL Magnesium (1.6-2.3) mg/dL Albumin (3.5-5.0) g/dL Albumin (PEP) 1.60 L (3.80-4.90) g/dL Gnjsm-4-[id number] 0.42 H (0.10-0.40) g/dL Gamma Globulins 1.82 H (0.70-1.50) g/dL Urine Protein (Negative) Urine Blood (Negative) Ur Leukocyte Esterase (Negative) Urine RBC (0-5) /hpf Urine WBC (0-5) /hpf Urine Bacteria (None) /hpf Hyaline Casts (0-2) /lpf Urine Mucus (None) /hpf Urine Yeast (Budding) (None) /hpf 10/29/24 10/29/24 10/29/24 Range/Units 00:05 06:41 06:41 RBC 2.39 L (4.30-5.90) m/uL Hgb 8.0 L (13.0-17.5) gm/dL Hct 25.6 L (39.0-53.0) % MCV 107.1 H (80.0-100.0) fL Macrocytosis Marked A Chloride 109 H (98-107) mmol/L BUN 59 H (9-20) mg/dL Creatinine 4.24 H (0.66-1.25) mg/dL POC Glucose (mg/dL) (70-110) mg/dL Magnesium 1.5 L (1.6-2.3) mg/dL Albumin 2.2 L (3.5-5.0) g/dL Albumin (PEP) (3.80-4.90) g/dL Rllmw-2-Djsbvlooy (0.10-0.40) g/dL Gamma Globulins (0.70-1.50) g/dL Urine Protein 2+ H (Negative) Urine Blood Moderate H (Negative) Ur Leukocyte Esterase Large H (Negative) Urine RBC 31 H (0-5) /hpf Urine WBC >182 H (0-5) /hpf Urine Bacteria Moderate H (None) /hpf Hyaline Casts 46 H (0-2) /lpf Urine Mucus Occasional H (None) /hpf Urine Yeast (Budding) Many H (None) /hpf Microbiology - Last 24 Hours (Table) 10/18/24 15:00 Fungal Culture - Preliminary Sputum 10/10/24 12:04 Gram Stain - Final Knee - Right Wound Culture - Final Assessment and Plan Assessment: Acute hypoxic respiratory failure, extubated on 10/22/2024. Currently on 3 L/min per nasal cannula Acute left lower lobe pneumonia secondary to Enterobacter aerogenes. Follow-up cultures revealed no growth Acute metabolic encephalopathy Septic shock, resolved Right-sided pleural effusion requiring thoracentesis and 400 cc of fluid removed Septic arthritis of the right knee requiring surgery cultures positive for strep A, patient was transitioned from cefepime to Invanz by infectious disease mostly because of the sputum cultures showing Enterobacter erogenous Chronic back pain may need MRI of the lumbosacral spine Chronic alcohol abuse and acute alcohol withdrawal syndrome recovered Status post arthroscopy and arthroscopic lavage and debridement of right knee with partial medial meniscectomy and medial femoral condyle and medial tibial plateau chondroplasty this was done on 10/06/2024 Acute kidney injury, with worsening creatinine, currently 4.24 Acute on chronic anemia History of underlying coronary artery disease and previous stent placement History of LV dysfunction and cardiomyopathy with ejection fraction of 45% Paroxysmal atrial fibrillation currently patient is in sinus rhythm. On amiodarone and heparin drip Type 1 diabetes GERD without esophagitis Dyslipidemia History of RI History of degenerative joint disease Right upper extremity swelling and pain with limitation in range of motion, to be seen by orthopedic Suspect peripheral vessel occlusive disease and ischemic changes seen by vascular Plan: The patient was seen and evaluated Labs and medications reviewed On a dysphagia level 1 pured diet Remains on ertapenem Continued on bronchodilators Currently stable and on 3 L nasal cannula Plan is for subacute rehab at discharge We will continue to follow I have personally seen and examined the patient, performed the documentation and the assessment and plan as written. Number of minutes spent on the visit: 10 Dictation was produced using [employer] dictation software. Please excuse any grammatical, word or spelling errors.
--- NOTE | 2024-10-29 15:42 | P.PN ---
Objective - Vital Signs Vital signs: Vital Signs Temp 97.7 F 10/29/24 08:00 Pulse 82 10/29/24 15:34 Resp 18 10/29/24 14:00 BP 120/69 10/29/24 12:00 Pulse Ox 95 10/29/24 12:00 FiO2 4 10/28/24 04:00 Intake & Output 10/28/24 10/29/24 10/29/24 18:59 06:59 18:59 Intake Total 255 120 Output Total 590 100 Balance -335 -100 120 Weight 93.7 kg 91 kg Intake: IV 15 0.9 Normal Saline 15 Oral 240 120 Output: Urine 590 100 Other: Voiding Method Indwelling Catheter Indwelling Catheter Indwelling Catheter ABP, PAP, CO, CI - Last Documented Arterial Blood Pressure 128/42 - Labs CBC & Chem 7: 10/29/24 06:41 10/29/24 06:41 Labs: Abnormal Lab Results - Last 24 Hours (Table) 10/24/24 10/28/24 10/28/24 Range/Units 02:34 16:24 19:54 RBC (4.30-5.90) m/uL Hgb (13.0-17.5) gm/dL Hct (39.0-53.0) % MCV (80.0-100.0) fL Macrocytosis Chloride (98-107) mmol/L BUN (9-20) mg/dL Creatinine (0.66-1.25) mg/dL POC Glucose (mg/dL) 167 H 189 H (70-110) mg/dL Magnesium (1.6-2.3) mg/dL Albumin (3.5-5.0) g/dL Albumin (PEP) 1.60 L (3.80-4.90) g/dL Kjnon-5-Glxisvswh 0.42 H (0.10-0.40) g/dL Gamma Globulins 1.82 H (0.70-1.50) g/dL Urine Protein (Negative) Urine Blood (Negative) Ur Leukocyte Esterase (Negative) Urine RBC (0-5) /hpf Urine WBC (0-5) /hpf Urine Bacteria (None) /hpf Hyaline Casts (0-2) /lpf Urine Mucus (None) /hpf Urine Yeast (Budding) (None) /hpf 10/29/24 10/29/24 10/29/24 Range/Units 00:05 06:41 06:41 RBC 2.39 L (4.30-5.90) m/uL Hgb 8.0 L (13.0-17.5) gm/dL Hct 25.6 L (39.0-53.0) % MCV 107.1 H (80.0-100.0) fL Macrocytosis Marked A Chloride 109 H (98-107) mmol/L BUN 59 H (9-20) mg/dL Creatinine 4.24 H (0.66-1.25) mg/dL POC Glucose (mg/dL) (70-110) mg/dL Magnesium 1.5 L (1.6-2.3) mg/dL Albumin 2.2 L (3.5-5.0) g/dL Albumin (PEP) (3.80-4.90) g/dL Lxzcd-8-Vumycypwz (0.10-0.40) g/dL Gamma Globulins (0.70-1.50) g/dL Urine Protein 2+ H (Negative) Urine Blood Moderate H (Negative) Ur Leukocyte Esterase Large H (Negative) Urine RBC 31 H (0-5) /hpf Urine WBC >182 H (0-5) /hpf Urine Bacteria Moderate H (None) /hpf Hyaline Casts 46 H (0-2) /lpf Urine Mucus Occasional H (None) /hpf Urine Yeast (Budding) Many H (None) /hpf Microbiology - Last 24 Hours (Table) 10/18/24 15:00 Fungal Culture - Preliminary Sputum 10/10/24 12:04 Gram Stain - Final Knee - Right Wound Culture - Final
[2024-10-29 16:44] LABS: Glucose,Whole Blood 163 mg/dL (70-110)
[2024-10-29 20:25] LABS: Glucose,Whole Blood 222 mg/dL (70-110)
--- NOTE | 2024-10-29 20:41 | MR ---
EXAMINATION TYPE: MR brain/cspine wo DATE OF EXAM: 10/29/2024 1:14 PM COMPARISON: CT 10/24/2024 CLINICAL INDICATION: Male, 64 years old with history of AMS, right sided weakness, AMS, Rt sided weak ness TECHNIQUE: Multiplanar, multiecho imaging on a 3.0 [place]line magnet is performed through the brain. Stud y is performed within 24 hours of arrival to the hospital.Multiplanar, multiecho imaging on a 3.0 Annel la magnet is performed through the knee. IV Contrast: mL (None, if empty) FINDINGS: The craniovertebral junction is normal. The pituitary is normal. Diffusion-weighted imaging is performed. No abnormal hyperintensity is present to suggest an acute i ntracranial infarct or acute ischemic change. There is mild hyperintensity on T2 and Inversion Recovery weighted sequences which are non-specific b ut can be related to microvascular ischemic changes. Example left centrum semiovale frontal lobe seri es 701 image 23. Ventricles and sulci are appropriate for the patient age. Fluid is within the bilateral mastoid air cells. Correlate for mastoiditis IMPRESSION: 1. Mild chronic appearing periventricular white matter ischemic type changes EXAMINATION TYPE: MR brain/cspine wo DATE OF EXAM: 10/29/2024 1:14 PM COMPARISON: None. CLINICAL INDICATION: Male, 64 years old with history of AMS, right sided weakness, AMS, Rt sided weak ness TECHNIQUE: Multiplanar multiecho imaging on a 3.0 [place]line magnet is performed through the cervical spin e. IV Contrast: mL (None, if empty) FINDINGS: The craniovertebral junction is normal. Vertebral body alignment is normal. Anterior cer vical fusion is evident with some susceptibility artifact. Metal adjustment was performed on the imag es. The anterior portion of the vertebral bodies is limited. T2-3: Broad-based disc bulge is present with moderate anterior thecal sac compression. No cord contac t is evident. No AP spinal canal stenosis is present. T1-T2: Mild broad-based disc bulge is present with anterior thecal sac contact. No spinal canal steno sis is present. Neural foraminal narrowing. C7-T1: Broad-based disc bulge appears to be present with anterior thecal sac compression. This is ce ntral and right paracentral extending towards the right foramen. Mild anterior thecal sac compressio n without cord contact is present. C6-7: Endplate changes and mild anterior thecal sac compression. Uncovertebral joint hypertrophy cont ributing to moderate left and mild right foraminal narrowing. No AP spinal canal stenosis is. No cord contact or cord deformity.. C5-6: Endplate changes are present. Some residual disc bulge is present greater to the left paracentr al lateral direction. Moderate bilateral foraminal narrowing is present. No AP spinal canal stenosis is present. No cord contact evident.. C4-5: No focal disc herniation or significant disc bulge is evident. No spinal canal stenosis is pre sent. Moderate left foraminal narrowing is present C3-4: No focal disc herniation or significant disc bulge is evident. No spinal canal stenosis is pre sent. There is moderate bilateral foraminal narrowing. C2-3: No focal disc herniation or significant disc bulge is evident. No spinal canal stenosis. Modera te right foraminal narrowing is present. IMPRESSION: 1. Broad-based disc bulge centrally and left paracentrally at T2-3 is moderate anterior thecal sac co mpression without cord deformity or spinal canal stenosis. 2. Broad-based disc bulging present at C7-T1 and to a lesser degree T1-T2 and possibly C6-7. No spina l canal stenosis or cord deformity evident. 3. Multilevel foraminal stenosis [facility], , 10/29/2024 8:39 PM
[2024-10-30 06:15] LABS: Glucose,Whole Blood 92 mg/dL (70-110)
[2024-10-30 07:52] LABS: HCT 25.3 % (39.0-53.0); Hypochromasia Slight; MCH 33.9 pg (25.0-35.0); MCHC 31.7 g/dL (31.0-37.0); MCV 106.8 fL (80.0-100.0); Macrocytosis Moderate; Mean Platelet Volume 9.6; Platelet Count 374 k/uL (150-450); RBC 2.37 m/uL (4.30-5.90); RDW 15.6 % (11.5-15.5); WBC 10.4 k/uL (3.8-10.6)
[2024-10-30 08:14] LABS: African American GFR (CKD) 15 (>60 ml/min/1.73 sqM); Anion Gap 6 mmol/L; Blood Urea Nitrogen 62 mg/dL (9-20); Calcium 9.4 mg/dL (8.4-10.2); Carbon Dioxide 20 mmol/L (22-30); Chloride 111 mmol/L (98-107); Glucose 87 mg/dL (74-99); Magnesium 1.4 mg/dL (1.6-2.3); Non-African American GFR(CKD) 13 (>60 ml/min/1.73 sqM); Potassium 4.2 mmol/L (3.5-5.1); Sodium 137 mmol/L (137-145)
--- NOTE | 2024-10-30 09:58 | P.PN ---
Progress Note - Text Progress Note Date: 10/30/24 Right knee septic arthropathy, status post diagnostic arthroscopy with lavage Bacteremia Chronic back pain Complex medical patient Patient was examined at bedside today, he has been transferred to the cardiac stepdown unit. He does answer all my questions accurately today. Patient admits to generalized pain throughout most of his body, patient has had very minimal physical activity since being in the hospital. Sutures were removed today at bedside right knee sutures in good position, minor effusion. MRI with/without contrast of lumbar spine according to nursing will be happening later today. Further recommendations to follow
[2024-10-30 12:18] LABS: Glucose,Whole Blood 61 mg/dL (70-110)
--- NOTE | 2024-10-30 12:25 | P.PN ---
Subjective HISTORY OF PRESENT ILLNESS: The patient is a 64-year-old male who was admitted with an acute CVA. He was found to have new onset of atrial fibrillation. Over the course of the admission he had drops in hemoglobin and therefore has not been started on anticoagulation. He remains in sinus rhythm on oral amiodarone. Patient continues to work with physical therapy as well as speech. He currently denies any chest pain or difficulty breathing. 10/29/2024 Patient examined this morning at the bedside. Patient is somewhat lethargic. He appears to be resting comfortably. Patient currently denies chest pain or pressure. He denies shortness of breath. He is maintaining sinus mechanism. Hemoglobin 8.0. Creatinine worsened today at 4.24 up from 3.68. 10/30/2024 Patient examined this morning the bedside. Patient denies chest pain or pr essure. He denies shortness of breath. Telemetry reveals sinus mechanism. Vital signs are stable. PHYSICAL EXAM: VITAL SIGNS: Reviewed. GENERAL: Well-developed in no acute distress. NECK: Supple. No JVD or thyromegaly LUNGS: Respirations even and unlabored. Lungs essentially clear to auscultation bilaterally. HEART: Regular rate and rhythm. S1 and S2 heard. EXTREMITIES: Normal range of motion. No clubbing or cyanosis. Peripheral pulses intact. No lower extremity edema ASSESSMENT: Acute CVA with right-sided hemiplegia Paroxysmal atrial fibrillation Acute left lower lobe pneumonia Anemia secondary to blood loss Acute renal failure Septic arthritis, status post arthroscopy and arthroscopic lavage History of alcohol abuse PLAN: Continue current cardiac medications Continue telemetry monitoring From a cardiac standpoint, recommend anticoagulation for atrial fibrillation. However will defer to internal medicine and additional consulting providers Further recommendations pending patient course Nurse practitioner note has been reviewed by physician. Signing provider agrees with the documented findings, assessment, and plan of care documented by [employer] as a scribe. Objective - Vital Signs Vital signs: Vital Signs Temp 98.2 F 10/30/24 03:05 Pulse 85 10/30/24 12:15 Resp 18 10/30/24 03:05 BP 134/72 10/30/24 03:05 Pulse Ox 97 10/30/24 08:25 FiO2 4 10/28/24 04:00 Intake & Output 10/29/24 10/30/24 10/30/24 18:59 06:59 18:59 Intake Total 120 118 Output Total 900 300 Balance -780 -300 118 Intake: Oral 120 118 Output: Urine 900 300 Other: Voiding Method Indwelling Catheter Indwelling Catheter # Bowel Movements 1 1 ABP, PAP, CO, CI - Last Documented Arterial Blood Pressure 128/42 - Labs CBC & Chem 7: 10/30/24 07:20 10/30/24 07:20 Labs: Abnormal Lab Results - Last 24 Hours (Table) 10/29/24 10/29/24 10/30/24 Range/Units 16:43 20:21 07:20 RBC (4.30-5.90) m/uL Hgb (13.0-17.5) gm/dL Hct (39.0-53.0) % MCV (80.0-100.0) fL RDW (11.5-15.5) % Chloride 111 H (98-107) mmol/L Carbon Dioxide 20 L (22-30) mmol/L BUN 62 H (9-20) mg/dL Creatinine 4.46 H (0.66-1.25) mg/dL POC Glucose (mg/dL) 163 H 222 H (70-110) mg/dL Magnesium 1.4 L (1.6-2.3) mg/dL 10/30/24 10/30/24 Range/Units 07:20 12:17 RBC 2.37 L (4.30-5.90) m/uL Hgb 8.0 L (13.0-17.5) gm/dL Hct 25.3 L (39.0-53.0) % MCV 106.8 H (80.0-100.0) fL RDW 15.6 H (11.5-15.5) % Chloride (98-107) mmol/L Carbon Dioxide (22-30) mmol/L BUN (9-20) mg/dL Creatinine (0.66-1.25) mg/dL POC Glucose (mg/dL) 61 L (70-110) mg/dL Magnesium (1.6-2.3) mg/dL Microbiology - Last 24 Hours (Table) 10/29/24 00:05 Urine Culture - Preliminary Urine,Voided Yeast species
[2024-10-30 12:31] LABS: Glucose,Whole Blood 56 mg/dL (70-110)
[2024-10-30 12:47] LABS: Glucose,Whole Blood 68 mg/dL (70-110)
--- NOTE | 2024-10-30 13:01 | P.PN ---
Subjective patient is seen for follow-up for acute kidney injury. Renal function has been worsening with serum creatinine at 4.4 mg/dL today Blood pressure not low now. Maintained on IV Lasix for significant scrotal edema and volume overload No significant shortness of breath. Patient remains on 2-4 L of oxygen via nasal cannula. Urine output documented at 1200 mL for 24 hours Objective - Vital Signs Vital signs: Vital Signs Temp 98.2 F 10/30/24 03:05 Pulse 85 10/30/24 12:15 Resp 18 10/30/24 03:05 BP 134/72 10/30/24 03:05 Pulse Ox 97 10/30/24 08:25 FiO2 4 10/28/24 04:00 Intake & Output 10/29/24 10/30/24 10/30/24 18:59 06:59 18:59 Intake Total 120 118 Output Total 900 300 Balance -780 -300 118 Intake: Oral 120 118 Output: Urine 900 300 Other: Voiding Method Indwelling Catheter Indwelling Catheter # Bowel Movements 1 1 ABP, PAP, CO, CI - Last Documented Arterial Blood Pressure 128/42 - Exam patient is awake and following commands. Examination of the heart S1 and S2 Examination of the lungs bilateral breath sounds are heard Abdomen is soft nontender Examination of lower extremities shows edema 2+. significant scrotal edema - Labs CBC & Chem 7: 10/30/24 07:20 10/30/24 07:20 Labs: Abnormal Lab Results - Last 24 Hours (Table) 10/29/24 10/29/24 10/30/24 Range/Units 16:43 20:21 07:20 RBC (4.30-5.90) m/uL Hgb (13.0-17.5) gm/dL Hct (39.0-53.0) % MCV (80.0-100.0) fL RDW (11.5-15.5) % Chloride 111 H (98-107) mmol/L Carbon Dioxide 20 L (22-30) mmol/L BUN 62 H (9-20) mg/dL Creatinine 4.46 H (0.66-1.25) mg/dL POC Glucose (mg/dL) 163 H 222 H (70-110) mg/dL Magnesium 1.4 L (1.6-2.3) mg/dL 10/30/24 10/30/24 10/30/24 Range/Units 07:20 12:17 12:30 RBC 2.37 L (4.30-5.90) m/uL Hgb 8.0 L (13.0-17.5) gm/dL Hct 25.3 L (39.0-53.0) % MCV 106.8 H (80.0-100.0) fL RDW 15.6 H (11.5-15.5) % Chloride (98-107) mmol/L Carbon Dioxide (22-30) mmol/L BUN (9-20) mg/dL Creatinine (0.66-1.25) mg/dL POC Glucose (mg/dL) 61 L 56 L (70-110) mg/dL Magnesium (1.6-2.3) mg/dL 10/30/24 Range/Units 12:46 RBC (4.30-5.90) m/uL Hgb (13.0-17.5) gm/dL Hct (39.0-53.0) % MCV (80.0-100.0) fL RDW (11.5-15.5) % Chloride (98-107) mmol/L Carbon Dioxide (22-30) mmol/L BUN (9-20) mg/dL Creatinine (0.66-1.25) mg/dL POC Glucose (mg/dL) 68 L (70-110) mg/dL Magnesium (1.6-2.3) mg/dL Microbiology - Last 24 Hours (Table) 10/29/24 00:05 Urine Culture - Preliminary Urine,Voided Yeast species Assessment and Plan Assessment: 1. Acute kidney injury secondary to ATN secondary to septic shock and rhabdomyolysis. Creatinine 3.18 on admission and is improved to 0.9 -1.0. Serum creatinine has increased again to 4.4 today, blood pressure is not low now. Urine output is improved. No hydronephrosis noted on kidney ultrasound. 2. Rhabdomyolysis secondary to immobility. CK levels trending down. 3. Strep bacteremia on antibiotics. 4. Anion gap metabolic acidosis secondary to acute kidney injury and lactic acidosis.improved. 5. Hyponatremia secondary to hypovolemia as well as acute kidney injury. Better. 6. Hypomagnesemia from poor intake and alcohol abuse. Replaced. 7. History of alcohol abuse. 8. Hypocalcemia, replaced. 25-hydroxy vitamin D was 26.5, started on supplementation. PTH appropriately increased. 9. Hypokalemia from poor intake. Replaced. Better. 10. A-fib with RVR status post amiodarone drip. 11. Volume overload with significant scrotal edema Plan: continue with midodrine continue with IV Lasix. I would avoid contrast with MRI given the worsening renal function Repeat labs in a.m. Hemodialysis if renal function continues to worsen
[2024-10-30] MEDS: FLUCONAZOLE IN NACL,ISO-OSM 100 MG in SALINE 1 50ML.BAG IVPB SCH (13:07)
[2024-10-30 13:28] LABS: Glucose,Whole Blood 166 mg/dL (70-110)
[2024-10-30] MEDS ORDERED: Magnesium Replacement Protocol 1 EACH MISC MISCELLANE PRN (14:54)
--- NOTE | 2024-10-30 14:57 | P.PN ---
Subjective Progress Note Date: 10/30/24 64-year-old male who is being seen in the ICU due to hypovolemic shock and rhabdomyolysis. He is a poor historian due to altered mental status and unresponsiveness. All history is obtained from the chart. He initially presented to the emergency department after being found facedown on the ground with a contusion to his forehead and abrasions to his knee and left toes. She stated that he had been having nausea and vomiting for a day prior to being found down. He was noted to have diarrhea as well. Patient is a daily drinker and consumes about a fifth per day according to the notes he has not drank for the 2 days prior to this admission. He also has a history of type 1 diabetes mellitus. Initial EKG showed sinus tachycardia. Head/cervical spine CT showed no acute intracranial process and no acute fracture or traumatic subluxation of the cervical spine. Initial chest x-ray showed right middle lobe scarring/atelectasis, no acute pulmonary process. He had received 4 L of normal saline. Initial labs showed CK level of 18,113, WBCs 10.7, hemoglobin 12.5, sodium 126, creatinine 3.18 lactic acid 6.9, AST 401, ALT 65. Preliminary blood culture showed gram-positive cocci and patient was started on vancomycin. 24-hour interval change 10/12/2024 -- Patient is evaluated in the ICU. He remains intubated on mechanical ventilation - ABG shows pH 7.42, pCO2 38, pO2 74. - He is maintained on vasopressin 0.02 units/min, normal saline at 20 cc/h, IV hydrocortisone 50 mg every 6 hours, and Kefzol day 5. Labs are reviewed WBCs 17.4, hemoglobin 8.2, hematocrit 25.2, platelets 53, sodium 142, potassium 3.7, chloride 116, CO2 23, BUN 39, creatinine 1.18, gluco se 258. Ionized calcium 4.4. Magnesium 1.8. Today's chest x-ray is unchanged. Wound culture gram stain of the right knee preliminary report shows rare gram positive cocci. 10/13/2024 Patient is seen and evaluated in ICU at bedside; remains on the mechanical ventilator. Discussed with nursing staff. Concerns about elevated blood sugars; patient was placed on home dose of Lantus which did not help much - Blood gases show pO2 72, pCO2 41, and pH is 7.42. - The patient is on propofol at 35 mcg/kg/min, saline at 20 cc an hour, and vital high-protein at 60, with goal of 70. Yesterday, he had a brief spontaneous breathing trial, and he did poorly. Today he will again have a spontaneous breathing trial, of pressure support of 5 and CPAP of 5. He continues on Ancef. White count 18.8, hemoglobin 8.2, hematocrit 25.8, platelet count 78,000. Sodium 144, potassium 4.1, chlorides 117, CO2 26, BUN 47, creatinine 1.18. Glucose is 340. Albumin is 2.1. Previous blood cultures from October 06 show group A streptococci. Chest x-ray shows bibasilar infiltrates. -- For hyperglycemia I will increase dose of Lantus and add insulin lispro every 4 hours; continue with current sliding scale 10/14/2024 Patient is seen in follow-up today continues on Precedex and attempting to wean maintained on mechanical ventilation with an FiO2 of 50% PEEP is 5. Per nursing staff attempting sedation holiday although did not go well yesterday. Patient is maintained on antibiotics with infectious disease following and patient is status post right knee aspiration with preliminary culture showing strep a with positive blood cultures. Patient continues with significant swelling especially the scrotal area maintained on IV Lasix and will continue. No discussion of PEG and trach as of yet and patient remains full code. Prognosis is guarded. 10/15/2024 Patient is seen this morning continues to be in the ICU currently working on weaning FiO2 and undergoing sedation holiday. Patient is eye tracking and following commands and per pulmonary research environmental scientist working on extubation today. Will await official report and monitor closely. Patient is continued on antibiotics with infectious disease following. 10/16/2024 Patient is seen in follow-up this morning extubated successfully currently maintained on 6 L high flow nasal cannula. Patient is awake and responding appropriately to questions and commands. Patient is extremely lethargic at times and significantly weak with significant edema noted. Sodium is elevated at 150 and is continued on D5 and water. Blood sugars have been elevated and will adjust insulins accordingly. Patient swallow eval performed and failed awaiting reevaluation with speech. Continue n.p.o. for now. White count remains elevated patient is maintained on antibiotics with infectious disease following. Awaiting repeat cultures. Procalcitonin 1.06. Questions and concerns were answered to the best of my ability with son at the bedside. 10/17/2024 Patient is evaluated today in follow up in the ICU. He was extubated yesterday. Continues on oxygen support on 100% BiPAP at this time. Cultures from the right knee arthroscopy reveals Strep A. Chest xray today reveals no change to the bibasilar opacities. Chest ultrasound reveals right pleural effusion pocket size 6.0 cm and left pleural effusion pocket size of 4.9 cm. Both sides marked for possible thoracentesis. Labs today reveal white blood cell count of 11.8, hgb 7. 5, sodium 146, potassium 3.4, BUN 43, creatinine 1.06. Blood glucose 200s. Continues on IV amiodarone, IV cefepime, IV vancomycin. Patient is in normal sinus rhythm currently heart rate in the 80s. 10/18/2024 Patient evaluated today in follow up in the ICU. He is awake alert oriented continues on BiPAP. He is status post right sided thoracentesis with 400 mL off. Chest xray today reveals stable bilateral lower lobe infiltrate and small pleural effusion. White blood cell count today 10.4. Continues on IV vancomycin and IV cefepime. Remains on IV amiodarone. on IV heparin. Patient remains NPO at this time, speech therapy to follow up today to reassess. 10/19/2024 Patient remains in the ICU. He is on the mechanical ventilator, FiO2 of 50%. Chest x-ray today shows left lower lobe pneumonia and/or atelectasis and pleural effusion. Elian in the left lung base is obscuring the left heart border and the hemidiaphragm has decreased in the interval. White blood cell count today is 8.4, hemoglobin 7.1, sodium 144, BUN of 40, creatinine of 1.43. His viral panel is negative for all viruses checked. 10/20/2024 Patient remains the intensive care unit he is currently on mechanical ventilator with an FiO2 of 50%. He is awake and alert and responding to commands. His chest x-ray reveals continued acute coronary cardiopulmonary disease involving the retrocardiac region with no significant interval change. Repeat sputum reveals Enterobacter he continues on IV cefepime at this time. Hemoglobin level today is 6.7 he will receive 1 unit of packed red blood cells. His creatinine is up to 1.51 today. Continues on oral amiodarone for the atrial fibrillation was taken off of anticoagulation secondary to the decreased hemoglobin. Patient is sedated with propofol at this time. He is also receiving IV Lasix daily prognosis remains guarded. 10/21/2024 Patient remains in the intensive care unit. Remains on the mechanical ventilator. He is currently sedated with propofol. He is alert and following commands. Chest xray unchanged continues to show pneumonia with sputum culture showing enterobacter. He remains on IV cefepime. Hemoglobin better today at 7.8. BUN 42 creatinine 1.67. 10/22/2024 Patient is evaluated today in the intensive care unit. Patient was extubated today. He is awake alert and oriented. He is complaining of some back pain. Has IV dilaudid on board. Chest xray today reveals no evidence of pleural effusion, focal consolidation, or pneumothorax. He remains edematous. Creatinine 1.87 today. On IV lasix which has been increased to BID by nephrology. 3L of urine output in the last 24 hours. 10/23/2024 Patient evaluated today in follow up in the ICU. Currently on 2L of oxygen via nasal cannula with saturations of 99%. Remains on IV cefepime. Chest xray today reveals left lung airspace opacity. Creatinine up to 2.1 today IV lasix has been discontinued. Patient has been placed on normal saline at 75 mls/hr. Speech therapy re consulted for swallow evaluation post extubation. 10/24/2024 Patient evaluated today in follow up remains in the ICU. Patient underwent neuro evaluation today. Brain CT was done revealing no acute bleed or mass effect. Mild age-appropriate senescent changes. Marked calcification of basal artery and significant stenosis cannot be excluded. Mild to moderate fluid in the mastoid air cells bilaterally. BUN 46 creatinine 2.12. Continues on normal saline at 75 mls/hr. Continues on IV cefepime. 10/25/2024 Patient remains in the ICU with multiple consultations following. Patient continues to be encephalopathic with neurology following. Orthopedics to reevaluate the upper extremity weakness and also vascular surgery was consulted as there is concerns of occlusive disease of the left lower extremity with discoloration of the toes. Patient continues on antibiotics and continues to require 2 L of oxygen. Patient is maintained on dysphagia ground diet and strongly recommend aspiration precautions and supervision with meals along with head of the bed elevated 30 to 45 degrees at all times. Patient is currently afebrile with no reports of chest pain or shortness of breath. 1 dose of IV Lasix was given today. 10/26/2024 Patient remains in the ICU. Continues to be confused and more lethargic today. Neurology following and felt this was encephalopathy. He is not using this right arm and he does have pain when touching that arm. It is edematous.Vascular evalated the patient for the left diabetic foot wounds which have dry gangrene and did not feel there was ischemia to the leg. He remains on 2L of oxygen via nasal cannula. Labs today hemoglobin 7.3, BUN 51, creatinine 2.66. Remains on IV cefepime which can also cause confusion. 10/27/2024 Patient evaluated in follow-up in the intensive care unit. He is currently sitting up in the chair family at the bedside. He is more awake alert and oriented he is able to state his name and birthday. He does continue to have significant right upper extremity weakness and also mild right lower extremity weakness. This was discussed with neurology and as his mentation has improved brain and cervical neck MRI are both ordered for tomorrow. His creatinine today is 3.0. He has been taken off of the normal saline and also remains off diuretics. Patient was transition to IV ertapenem taken off of the cefepime at this time. Chest x-ray shows no change in the left lung opacification and probable small pleural effusion. Development of a small right pleural effusion. 10/28/2024 Patient is seen in the ICU with multiple consultations following lethargic although arousable awaiting a transfer out of the ICU once a bed on 3 S. becomes available. Patient is awake although fatigues easily. Patient reports he is eating although not eating much and continues to have weakness. Recommend PT/OT therapy daily. Awaiting cervical neck MRI which has been pending for quite some time. Kidney functions worsening and 3.6 today. Blood pressures are soft and patient was given a dose of Lasix yesterday. Urine output remains marginal and will be monitored closely. Recommend strict intake and output monitoring and documenting. Midodrine being added per nephrology and will follow-up on repeat labs. Patient continues on ertapenem with infectious disease following. Blood sugars have been on the lower side and will adjust insulins and continue with sliding scale with Accu-Cheks before meals and at bedtime. Patient currently denies chest pain or worsening shortness of breath and is currently maintained on 3 L via nasal cannula and oxygen saturations have been above 94%. 10/29/2024 Patient evaluated today on the medical floor as a movement of the intensive care unit. He is able to sit at the edge of the bed today and will continue to work with PT OT daily. He will need subacute rehab on discharge. He is still awaiting a brain and cervical neck MRI unsure if he can have an MRI due to the surgical plates in his neck discussed this with nursing. Also discussed with orthopedics that he is unable to get contrast due to the renal dysfunction and per Dr. Foss group the MRI needs to be with contrast and we will hold off on the lumbar MRI with and without contrast at this time. Did undergo barium swallow and is on pured diet with nectar thick liquids. He remains off of the IV cefepime at this time and currently on IV ertapenem. He remains on IV Lasix daily. 10/30/2024 Patient evaluated in follow-up on the medical floor. He has been moved out of the the intensive care unit. He is sitting up in the chair. He continues with significant right-sided weakness. Underwent brain MRI with no evidence of an acute stroke at this time. Follow-up with orthopedics that he is unable to get this lumbar MRI with and without contrast. Creatinine up to 4.46 today. He is on IV Lasix daily. Review of systems: Constitutional: reports of fatigue, no fever, or chills Cardiovascular: No reports of chest pain or palpitations Respiratory: No reports of worsening shortness of breath reports continued weak cough GI: No reports of nausea, vomiting, or diarrhea, : No reports of dysuria or retention Neurovascular: reports of generalized weakness and continued swelling of upper and lower extremities that is slightly improved All medications have been reviewed Physical exam: Gen: This is a 64-year-old male who is maintained on 3 L nasal cannula., well- developed, elderly appearing, ill-appearing, appears older than stated age, lethargic although arousable and more awake today responding appropriately to questions and commands HEENT: Head is atraumatic, normocephalic. Pupils equal, round. Sclerae is anicteric. NECK: Supple. No JVD. No lymphadenopathy. No thyromegaly. LUNGS: Diminished breath sounds bilaterally with some bronchial congestion and coarse scattered rhonchi. No intercostal retractions. HEART: S1, S2 are muffled ABDOMEN: Soft. Somewhat taut, positive bowel sounds are present. No masses. No tenderness. Significant scrotal edema noted, minimally improved EXTREMITIES: Bilateral upper and lower extremity edema noted. No calf tenderness. Generalized upper and lower extremity edema along with scrotal swelling noted Right upper extremity weakness. NEUROLOGICAL: Patient is awake, alert and oriented x 2, diffusely weak Assessment: -Chronic alcohol abuse with acute alcohol withdrawal syndrome; Thiamine and protonix. No longer going through acute withdrawals. -Altered mental status acute metabolic and septic encephalopathy. Brain CT reveals no acute stroke. Patient continues to have right upper and lower extremity weakness. Unable to officially rule out stroke. -Acute hypoxic respiratory failure was intubated following knee surgery on 10/10 and successfully extubated on 10/15/24. re-intubated on 10/18/2024 and now extubated on 10/22/24. Status post bronchoscopy on 10/18. -Congestive heart failure with an EF of 45%, diastolic dysfunction -Paroxysmal atrial fibrillation transitioned to oral amiodarone Currently on subq heparin. Was taken off IV heparin due to decreased hemoglobin -Acute blood loss anemia requiring transfusion -Right sided pleural effusion status post right sided thoracentesis with 400 mL off. -Oral thrush -Rhabdomyolysis secondary to immobility due to fall. Improving with IV hydration. We will continue to monitor strict STERLING's, daily weights, renal function electrolytes -Acute kidney injury secondary to ATN due to to septic shock and rhabdomyolysis. Was initially improving and now with worsening renal function, nephrology following -Relative adrenal insufficiency. On IV hydrocortisone. -Transaminitis. Improving. -Streptococcus group A bacteremia. Currently on ertapenem per ID recommendation; continue to monitor CBC, CRP and procalcitonin. Possibly secondary to right knee infection -Right knee pain with swelling, status post aspiration along with arthroscopic lavage, culture showing strep a with septic arthritis -Hyponatremia, likely hypovolemic; resolved. -Episode of hypernatremia treated with D5W, sodium normalized. This was due to free water deficit. 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 -History of coronary artery disease with previous catheterization and stent placement. -Hypertension; currently not on any antihypertensive medication. -Sepsis, present on admission possibly secondary to right knee arthritis with bacteremia GI prophylaxis DVT prophylaxis No code Plan: status post arthroscopy with lavage of the right knee and final cultures showing Strep A. Currently on ertapenem per ID recommendations and cefepime has been discontinued. Repeat blood cultures thus far are negative and will continue on IV antibiotics with ID following Sputum culture showing Enterobacter patient is status post bronchoscopy sputum cultures are now negative Speech therapy has been reconsulted post extubation and is maintained on a dysphagia ground diet and strongly recommend aspiration precautions with supervision with meals and head of the bed elevated 30 to 45 degrees at all times Blood sugars variable and have been on the lower side the last 2 days, will adjust long-acting and continue with Accu-Cheks before meals and at bedtime. Hypoglycemia protocol as well as needed. Follow-up on repeat labs and monitor kidney functions and electrolytes closely. Creatinine continues to worsen he has been started on IV lasix daily. Nephrology following closely. Patient may need hemodialysis. Brain/cervical neck MRI without contrast has been ordered. Orthopedics did recommend lumbar spine MRI with and without contrast although patients renal function now with creatinine of 4.46 he is unable to get oral contrast at this time. Physical therapy and occupational therapy have been re-consulted. And recommend evaluating daily as patient is significantly weak and has had prolonged hospitalization. Patient requesting [facility] on discharge when medically stable. Repeat blood work in the AM Overall prognosis remains guarded at this time The impression and plan of care has been dictated by Sharlene Pendleton, Nurse Practitioner as directed. Dr. Randall MD I have performed a history and examination and MDM of this patient, discussed the same with the dictator, and agree with the dictator's assessment and plan as written ,documented as a scribe. Based on total visit time, I have performed more than 50% of the visit. Objective - Vital Signs Vital signs: Vital Signs Temp 98.2 F 10/30/24 03:05 Pulse 85 10/30/24 12:15 Resp 18 10/30/24 03:05 BP 134/72 10/30/24 03:05 Pulse Ox 97 10/30/24 08:25 FiO2 4 10/28/24 04:00 Intake & Output 10/29/24 10/30/24 10/30/24 18:59 06:59 18:59 Intake Total 120 118 Output Total 900 300 200 Balance -780 -300 -82 Intake: Oral 120 118 Output: Urine 900 300 200 Other: Voiding Method Indwelling Catheter Indwelling Catheter # Bowel Movements 1 1 ABP, PAP, CO, CI - Last Documented Arterial Blood Pressure 128/42 - Labs CBC & Chem 7: 10/30/24 07:20 10/30/24 07:20 Labs: Abnormal Lab Results - Last 24 Hours (Table) 10/29/24 10/29/24 10/30/24 Range/Units 16:43 20:21 07:20 RBC (4.30-5.90) m/uL Hgb (13.0-17.5) gm/dL Hct (39.0-53.0) % MCV (80.0-100.0) fL RDW (11.5-15.5) % Chloride 111 H (98-107) mmol/L Carbon Dioxide 20 L (22-30) mmol/L BUN 62 H (9-20) mg/dL Creatinine 4.46 H (0.66-1.25) mg/dL POC Glucose (mg/dL) 163 H 222 H (70-110) mg/dL Magnesium 1.4 L (1.6-2.3) mg/dL 10/30/24 10/30/24 10/30/24 Range/Units 07:20 12:17 12:30 RBC 2.37 L (4.30-5.90) m/uL Hgb 8.0 L (13.0-17.5) gm/dL Hct 25.3 L (39.0-53.0) % MCV 106.8 H (80.0-100.0) fL RDW 15.6 H (11.5-15.5) % Chloride (98-107) mmol/L Carbon Dioxide (22-30) mmol/L BUN (9-20) mg/dL Creatinine (0.66-1.25) mg/dL POC Glucose (mg/dL) 61 L 56 L (70-110) mg/dL Magnesium (1.6-2.3) mg/dL 10/30/24 10/30/24 Range/Units 12:46 13:26 RBC (4.30-5.90) m/uL Hgb (13.0-17.5) gm/dL Hct (39.0-53.0) % MCV (80.0-100.0) fL RDW (11.5-15.5) % Chloride (98-107) mmol/L Carbon Dioxide (22-30) mmol/L BUN (9-20) mg/dL Creatinine (0.66-1.25) mg/dL POC Glucose (mg/dL) 68 L 166 H (70-110) mg/dL Magnesium (1.6-2.3) mg/dL Microbiology - Last 24 Hours (Table) 10/29/24 00:05 Urine Culture - Preliminary Urine,Voided Yeast species Assessment and Plan Time with Patient: Less than 30
--- NOTE | 2024-10-30 16:00 | P.PN ---
Subjective Progress Note Date: 10/30/24 Patient is a 64-year-old male who is being seen in the ICU due to hypovolemic shock and rhabdomyolysis. He is a poor historian due to altered mental status and unresponsiveness. All history is obtained from the chart. He initially presented to the emergency department after being found facedown on the ground with a contusion to his forehead and abrasions to his knee and left toes. She stated that he had been having nausea and vomiting for a day prior to being found down. He was noted to have diarrhea as well. Patient is a daily drinker and consumes about a fifth per day according to the notes he has not drank for the 2 days prior to this admission. He also has a history of type 1 diabetes m ellmarcelina. Initial EKG showed sinus tachycardia. Head/cervical spine CT showed no acute intracranial process and no acute fracture or traumatic subluxation of the cervical spine. Initial chest x-ray showed right middle lobe scarring/atelectasis, no acute pulmonary process. He had received 4 L of normal saline. Initial labs showed CK level of 18,113, WBCs 10.7, hemoglobin 12.5, sodium 126, creatinine 3.18 lactic acid 6.9, AST 401, ALT 65. Preliminary blood culture showed gram-positive cocci and patient was started on vancomycin. On 10/20/2024, the patient remains sedated on propofol. Arousable and moving all 4 extremities. He is status post reintubation on 10/18/2024 and is status post bronchoscopy x 2 with evacuation of mucous plugs from his left lower lobe. The patient has Enterobacter erogenous in his sputum and the patient remains on IV cefepime. This morning, he remains on assist-control mode with rate of 14, tidal volume of 500, FiO2 of 50% with a PEEP of 10. Blood gas shows significant improvement oxygenation and the pO2 is up to 153 and a pH is at 7.4 with a pCO2 of 41. The patient remains on low-dose norepinephrine at 0.04 mcg/kg/min. He remains on IV heparin for paroxysmal A-fib. Hemoglobin dropped down to 6.7 and the patient is going to receive a unit of packed RBC. Creatinine is up to 1.5. He remains on vital high-protein at rate of 40 cc an hour. Fluid balance is +1.2 L over the past 24 hours. He is afebrile. Patient was seen today on 10/21/24, patient remains in the ICU, patient is on mechanical ventilation with assist-control rate of 14 tidal volume 500 FiO2 40% and PEEP of 6 ABG showed a pO2 of 27 pCO2 34 pH of 7.47. No changes were made in vent settings. Patient remains on propofol at 40 mcg/kg/min, received a unit of packed RBCs yesterday for low hemoglobin. Remains on vital HP patient is receiving cefepime for Enterobacter around [place] and his sputum. Patient had strep a in the right knee joint patient is covered with cefepime remains on Lasix 40 mg IV push daily his initial presentation to the hospital was when he was found facedown on the ground with a contusion on his forehead and abrasion on his left knee as well as left toes. Patient is known to be a heavy drinker, consumes 1/5/day according to the notes in the chart. Patient is also known to have type 1 diabetes, intubation on 10/10/2024 following his knee surgery patient was extubated on 10/15, however he had to be reintubated on 10/18 bronchoscopy was done for extensive pneumonia involving the left lower lobe and mucous plugs were suctioned. Patient also had another bronchoscopy on 09/22 with improvement in his chest x-ray findings and left lower lobe pneumonia. Sputum cultures have been positive for Enterobacter allergies. Has been on IV cefepime WBC count today 6.3 hemoglobin 7.8 metabolic profile is normal BUN is 42 creatinine 1.67. Chest x-ray continues to show bibasilar airspace disease left lower lobe more so than right lower lobe Patient was eval today and 10/22/2024, patient remains in the ICU, intubated and mechanically ventilated, on assist-control rate of 14 tidal volume 500 FiO2 40% PEEP of 6 ABG showed a pO2 of 93 pCO2 34 pH of 7.50 peak airway pressure is 23 Plateau pressure is 16 continues to have some clear yellow sputum that is easily suctioned will not require bronchoscopy today considering the easily suctioned the mucus secretions. Patient is on propofol at 40 mcg/kg/min vital HP at 40 mL/h IV fluid at KVO patient remains on antibiotics in the form of cefepime, he has Enterococcus in the sputum and he had strep pain from his knee. Leg susi on Lasix 40 mg twice daily chest x-ray is showing slight improvement in his bibasilar pneumonia hence I am not recommending bronchoscopy today I will try to give the patient a trial of weaning if possible. Labs today were reviewed WBC count is 5.8 hemoglobin 7.9 platelets are 306, electrolytes are normal BUN is 43 creatinine 1.85 Patient was seen today on 10/23/2024, remains in the ICU, however the patient was extubated yesterday and so far he seems to be tolerating the extubation well. Patient is on 3 L nasal cannula, he is alert, but extremely slow. And complaining of right upper extremity swelling and pain. Considering the patient had a fall I will recommend x-rays of the right upper extremity and I would recommend ultrasound/venous Doppler of the right upper extremity. Patient continues to have pneumonia based on chest x-ray, left lower lobe is quite concerning patient does not have a very good cough. Hoping he does not require bronchoscopy again. In the meantime he is on cefepime. Patient had worsening of his renal functioning and I discontinued his Lasix today. He is on subcu heparin for DVT prophylax. And I do not believe the patient is quite ready to be discharged out of the ICU yet, I will keep him in the ICU for another day. And follow-up chest x-ray will be done in a.m. His WBC count is 6 hemoglobin 8.2 electrolytes are normal BUN is 46 creatinine 2.19 Seen today on 10/24/2024, patient remains in the ICU, off mechanical ventilation, on2 L nasal cannula with O2 saturation between 94 to 97%. Patient is confused, he is not in any form of respiratory distress.WBC is 5.8 hemoglobin 7.6 electrolytes are normal BUN is 46 creatinine 2.22, slightly improved compared to yesterday after holding his diuretics chest x-ray is showing slight improvement in his pneumonia. However what seems to be quite concerning to me is his mental status patient seems to be confused, and continues to have difficulty moving his right upper extremity workup on the right upper extremity has been negative including x-rays and Doppler. Patient was seen today on 10/25/2024, patient remains in the ICU, mental status is basically about the same, patient remains encephalopathic, continues to have difficulty raising his right upper extremity hence orthopedics was consulted. Chest x-ray continues to show bilateral pneumonia left a bit worse than right, patient is on antibiotics for Enterobacter erogenous noted previously on his sputum. Patient is able to clear his secretions on his own, he does have a vigorous cough, his overall mental status seems to be a bit concerning, neurology was consulted on the patient today yesterday, felt that the patient may have metabolic encephalopathy. In addition to this the patient has some ischemic changes noted in the distal aspect of his left fourth toe and at the base of his big toe, hence I recommended vascular surgery evaluation. He does have good pulses by Doppler on that same foot. Labs today show WBC is 5.4 hemoglobin 7.7 electrolytes are normal BUN is 47 creatinine 2.30 Patient seen today on 10/26/2024, remains in ICU, remains on 4 L nasal cannula mentation is about the same, remains encephalopathic but follows simple instructions, continues to have issues with his right upper extremity patient is on IV fluid at KVO however I increased IV fluid today to 70 cc/h as his renal function seems to be getting a bit worse. And I am recommending that we stop diuretics altogether. Patient remains on cefepime for Enterobacter in his sputum. Chest x-ray continues show bilateral pneumonia minimal improvement noted. But continues to have significant infiltrates specially in the left lower lobe. WBC is 5.3 hemoglobin 7.3 basic metabolic profile is normal BUN is up to 51 creatinine up to 2.66 Patient was seen today on 10/27/2024, remains in the ICU remains on 4 L nasal can nula remains on IV fluid at 75 cc/h his urine output seems to be marginal down to 15/20 cc/h hence I am recommending a low-dose of Lasix 60 mg IV push x 1. Patient is becoming a bit more edematous hoping that he will improve with gentle diuresis. Renal functioning seems to be getting worse over the last few days in spite of holding the Lasix and inspite of hydrating the patient cautiously patient remains on Invanz for his Enterococcus erogenous in the sputum this is being addressed by infectious disease, chest x-ray continues show bilateral infiltrates left more so than right patient also has small bilateral pleural effusions. Lasix was given today and he remains on antibiotics for his un derlying pneumonia. The patient is seen today October 28, 2024 in follow-up in the [facility]. He is currently sitting up in bed. Awake. Somewhat slow to respond. He is maintaining good O2 saturation mid 90s on 3 L/min per nasal cannula. He has been afebrile. Hemodynamically stable. Right knee culture was positive for strep A. Previous sputum culture had been positive for enterofactor aerogenes. Follow-up cultures revealed no growth. Pleural fluid cultures revealed no growth. He 2. Potassium 4.9. Bicarb 21. BUN 58. Creatinine 3.68. Glucose 66. He is continued on DuoNeb and elations. Heparin for DVT prophylaxis. Antibiotics in the form of ertapenem. The patient is seen today October 29, 2024 in follow-up on the selective care unit. He was transferred out of the ICU yesterday. He is currently sitting up in bed. Awake and alert. Still somewhat slow to respond. He is maintaining O2 saturations in the 90s on 3 L/min per nasal cannula. He is been afebrile. Hemodynamically stable. He is status post 1 unit of packed red blood cells this admission. Current hemoglobin 8.0. Platelets 332. White count 7.9. Sodium 139. Potassium 4.4. Bicarb 23. BUN 59. Creatinine 4.24. Glucose 78. Urinalysis with moderate bacteria. Culture pending. He remains on ertapenem. Continued on bronchodilators. Remains on IV diuretics. Currently in a negative balance. Heparin for DVT prophylaxis. The patient is seen today October 30, 2024 in follow-up on the selective care unit. He is currently up in a chair at the bedside. Awake and alert in no acute distress. He is maintaining O2 saturations in the 90s on 3 L/min per nasal cannula. No IV fluids. He is continued on antibiotics in the form of ertapenem. Continued on IV diuretics. Heparin for DVT prophylaxis. Urine culture showing yeast species. Pleural fluid cultures revealed no growth. Whit e count 10.4. Hemoglobin 8.0. MCV 106.8. Platelets 374. Sodium 137. Potassium 4.2. Bicarb 20. BUN 62. Creatinine 4.46. Glucose 87. Objective - Vital Signs Vital signs: Vital Signs Temp 98.2 F 10/30/24 03:05 Pulse 80 10/30/24 15:47 Resp 16 10/30/24 15:47 BP 134/72 10/30/24 03:05 Pulse Ox 97 10/30/24 08:25 FiO2 4 10/28/24 04:00 Intake & Output 10/29/24 10/30/24 10/30/24 18:59 06:59 18:59 Intake Total 120 118 Output Total 039 767 3152 Balance -408 -778 -2531 Intake: Oral 120 118 Output: Urine 229 885 4131 Other: Voiding Method Indwelling Catheter Indwelling Catheter Indwelling Catheter # Bowel Movements 1 1 ABP, PAP, CO, CI - Last Documented Arterial Blood Pressure 128/42 - Exam GENERAL EXAM: Alert, slow to respond, 64-year-old male, up in a chair, on 3 L nasal cannula, in no apparent distress. HEAD: Normocephalic. EYES: Normal reaction of pupils, equal size. NOSE: Clear with pink turbinates. THROAT: No erythema or exudates. NECK: No masses, no JVD. CHEST: No chest wall deformity. LUNGS: Equal air entry with bilateral scattered rhonchi. CVS: S1 and S2 normal with no audible murmur, regular rhythm. ABDOMEN: No hepatosplenomegaly, normal bowel sounds, no guarding or rigidity. SPINE: No scoliosis or deformity SKIN: No rashes CENTRAL NERVOUS SYSTEM: No focal deficits, tone is normal in all 4 extremities. EXTREMITIES: Edema of the right upper extremity. There is no peripheral edema. No clubbing, no cyanosis. Peripheral pulses are intact. - Labs CBC & Chem 7: 10/30/24 07:20 10/30/24 07:20 Labs: Abnormal Lab Results - Last 24 Hours (Table) 10/29/24 10/29/24 10/30/24 Range/Units 16:43 20:21 07:20 RBC (4.30-5.90) m/uL Hgb (13.0-17.5) gm/dL Hct (39.0-53.0) % MCV (80.0-100.0) fL RDW (11.5-15.5) % Chloride 111 H (98-107) mmol/L Carbon Dioxide 20 L (22-30) mmol/L BUN 62 H (9-20) mg/dL Creatinine 4.46 H (0.66-1.25) mg/dL POC Glucose (mg/dL) 163 H 222 H (70-110) mg/dL Magnesium 1.4 L (1.6-2.3) mg/dL 10/30/24 10/30/24 10/30/24 Range/Units 07:20 12:17 12:30 RBC 2.37 L (4.30-5.90) m/uL Hgb 8.0 L (13.0-17.5) gm/dL Hct 25.3 L (39.0-53.0) % MCV 106.8 H (80.0-100.0) fL RDW 15.6 H (11.5-15.5) % Chloride (98-107) mmol/L Carbon Dioxide (22-30) mmol/L BUN (9-20) mg/dL Creatinine (0.66-1.25) mg/dL POC Glucose (mg/dL) 61 L 56 L (70-110) mg/dL Magnesium (1.6-2.3) mg/dL 10/30/24 10/30/24 Range/Units 12:46 13:26 RBC (4.30-5.90) m/uL Hgb (13.0-17.5) gm/dL Hct (39.0-53.0) % MCV (80.0-100.0) fL RDW (11.5-15.5) % Chloride (98-107) mmol/L Carbon Dioxide (22-30) mmol/L BUN (9-20) mg/dL Creatinine (0.66-1.25) mg/dL POC Glucose (mg/dL) 68 L 166 H (70-110) mg/dL Magnesium (1.6-2.3) mg/dL Microbiology - Last 24 Hours (Table) 10/29/24 00:05 Urine Culture - Preliminary Urine,Voided Yeast species Assessment and Plan Assessment: Acute hypoxic respiratory failure, extubated on 10/22/2024. Currently on 3 L/min per nasal cannula Acute left lower lobe pneumonia secondary to Enterobacter aerogenes. Follow-up cultures revealed no growth Acute metabolic encephalopathy, improving Septic shock, resolved Right-sided pleural effusion requiring thoracentesis and 400 cc of fluid removed cultures revealed no growth, cytology negative for malignancy Septic arthritis of the right knee requiring surgery cultures positive for strep A, patient was transitioned from cefepime to Invanz by infectious disease mostly because of the sputum cultures showing Enterobacter erogenous Chronic back pain may need MRI of the lumbosacral spine Chronic alcohol abuse and acute alcohol withdrawal syndrome recovered Status post arthroscopy and arthroscopic lavage and debridement of right knee with partial medial meniscectomy and medial femoral condyle and medial tibial plateau chondroplasty this was done on 10/06/2024 Acute kidney injury, with worsening creatinine, currently 4.24 Acute on chronic anemia History of underlying coronary artery disease and previous stent placement History of LV dysfunction and cardiomyopathy with ejection fraction of 45% Paroxysmal atrial fibrillation currently patient is in sinus rhythm. On amiodarone and heparin drip Type 1 diabetes GERD without esophagitis Dyslipidemia History of [place] History of degenerative joint disease Right upper extremity swelling and pain with limitation in range of motion, seen by orthopedic Suspect peripheral vessel occlusive disease and ischemic changes seen by vascular Plan: The patient was seen and evaluated Imaging, labs and medications reviewed On a dysphagia level 2 ground diet Remains on ertapenem Continued on bronchodilators Currently on 3 L nasal cannula Plan is for subacute rehab at [facility] at discharge I have personally seen and examined the patient, performed the documentation and the assessment and plan as written. Number of minutes spent on the visit: 10 Dictation was produced using [employer] dictation software. Please excuse any grammatical, word or spelling errors.
[2024-10-30] MEDS: MAGNESIUM SULFATE-D5W PMX 1 GM in DEXTROSE/WATER 1 100ML.BAG IVPB SCH (16:47)
[2024-10-30 17:01] LABS: Glucose,Whole Blood 172 mg/dL (70-110)
--- NOTE | 2024-10-30 19:01 | P.PN ---
Subjective Progress Note Date: 10/30/24 I am following-up with the patient and patient continues to be weak and seems weak throughout per the nurse. He is responding per the nurse but is slow. Cannot have MRI Lumbar that was requested by Orthopedic since has kidney insufficiency. Has episode of hypoglycemia today in the 50s to 60s and creatinine is trending up. Objective - Vital Signs Vital signs: Vital Signs Temp 98.0 F 10/30/24 16:10 Pulse 78 10/30/24 16:10 Resp 17 10/30/24 16:10 BP 117/72 10/30/24 16:10 Pulse Ox 96 10/30/24 16:10 FiO2 4 10/28/24 04:00 Intake & Output 10/29/24 10/30/24 10/30/24 18:59 06:59 18:59 Intake Total 120 118 Output Total 616 103 3850 Balance -112 -300 -1321 Intake: Oral 120 118 Output: Urine 740 148 2833 Other: Voiding Method Indwelling Catheter Indwelling Catheter Indwelling Catheter # Bowel Movements 1 1 ABP, PAP, CO, CI - Last Documented Arterial Blood Pressure 128/42 - Exam General: Sitting in recliner chair and is not in acute distress. INTEGUMENATRY: Significant edema of the right upper extremity as well as bilateral lower extremity. He is tender to touch over the right upper and lower extremity mostly in the upper extremity as well as at the right knee. Neuro: Limited. The patient is drowsy but is awake able to voice. He is oriented to self. He is following few simple commands. Language is limited. Pupils are round 2 to 3 mm bilaterally and reactive to light. . No facial weakness. The motor is hard to assess individual muscle strength because of his cooperation. But he is able to lift up bilateral upper extremity above gravity lifting the left upper extremity more than the right but the right upper extremity has edema compared to the left. He is also lifting the right lower extremity and minimal over the left lower. He has significant edema over the bilateral lower. Plantars are mute. Somewhat the workup during this hospital visit consisted of: Vitamin B12: 2485 Serum folate: 9.40 Ammonia <9 TSH: 4.380 He has acute on chronic kidney insufficiency on presentation his kidney was elevated and resolved then back now again it is trending up. His sputum cultures Enterococcus aeruginosa's, knee cultures are positive for strep a and blood cultures are positive for strep a The patient had a repeat CT of the head today and it is reported as no acute bleed or mass effect. Mild age-appropriate senescent changes. Marked calcification of basilar artery and significant stenosis cannot be excluded. I personally reviewed the CT and I agree there is no acute or subacute stroke. Routine EEG: Is abnormal. The background slowing is suggestive of moderate to severe encephalopathy, likely due to toxic-metabolic derangement. The triphasic waves are likely due to toxic-metabolic deragement. Otherwise, no focal slowing, epileptiform discharge or seizure on the EEG. MRI of the brain is reported as mild chronic appearing periventricular white matter ischemic type changes. MRI cervical spine: Broad-based disc bulge centrally and left paracentrally T2 and 3 is moderate and thecal sac compression without cord deformity or spinal canal stenosis. Broad based disc bulging present at C7-T1 to a lesser degree T1-T2 and possibly C6-C7. No spinal canal stenosis or cord deformity evident. Multilevel foraminal stenosis. - Labs CBC & Chem 7: 10/30/24 07:20 10/30/24 07:20 Labs: Abnormal Lab Results - Last 24 Hours (Table) 10/29/24 10/30/24 10/30/24 Range/Units 20:21 07:20 07:20 RBC 2.37 L (4.30-5.90) m/uL Hgb 8.0 L (13.0-17.5) gm/dL Hct 25.3 L (39.0-53.0) % MCV 106.8 H (80.0-100.0) fL RDW 15.6 H (11.5-15.5) % Chloride 111 H (98-107) mmol/L Carbon Dioxide 20 L (22-30) mmol/L BUN 62 H (9-20) mg/dL Creatinine 4.46 H (0.66-1.25) mg/dL POC Glucose (mg/dL) 222 H (70-110) mg/dL Magnesium 1.4 L (1.6-2.3) mg/dL 10/30/24 10/30/24 10/30/24 Range/Units 12:17 12:30 12:46 RBC (4.30-5.90) m/uL Hgb (13.0-17.5) gm/dL Hct (39.0-53.0) % MCV (80.0-100.0) fL RDW (11.5-15.5) % Chloride (98-107) mmol/L Carbon Dioxide (22-30) mmol/L BUN (9-20) mg/dL Creatinine (0.66-1.25) mg/dL POC Glucose (mg/dL) 61 L 56 L 68 L (70-110) mg/dL Magnesium (1.6-2.3) mg/dL 10/30/24 10/30/24 Range/Units 13:26 17:00 RBC (4.30-5.90) m/uL Hgb (13.0-17.5) gm/dL Hct (39.0-53.0) % MCV (80.0-100.0) fL RDW (11.5-15.5) % Chloride (98-107) mmol/L Carbon Dioxide (22-30) mmol/L BUN (9-20) mg/dL Creatinine (0.66-1.25) mg/dL POC Glucose (mg/dL) 166 H 172 H (70-110) mg/dL Magnesium (1.6-2.3) mg/dL Microbiology - Last 24 Hours (Table) 10/29/24 00:05 Urine Culture - Preliminary Urine,Voided Yeast species Assessment and Plan Assessment: This is a 64-year-old gentleman with significant alcohol use who presented emergency department on 10/06/2024 since the patient was found facedown on the ground with confusion to his forehead abrasion to his knees and left toes. He is found to be an septic shock with septic arthritis as well as had left lower lobe pneumonia. He was intubated on a ventilator. He also has acute kidney injury. He had right pleural effusion requiring thoracentesis. He has episode of hypoglycemia today in the 30s. Altered mental status seems due to metabolic encephalopathy as well as septic encephalopathy. Patient is having episodes of hypoglycemia.MRI of the brain is negative for any acute or subacute stroke. EEG is negative for seizure or discharges. On examination patient has better strength appears left more than the right but is limited because of edema and pain over the right side as well as has edema ov er the right upper extremity compared to the left upper extremity. Has lower cervical and upper thoracic spondylosis with no cord compression on MRI cervical spine. Septic shock Septic arthritis of the right knee requiring surgery and the cultures were positive for strep a and he is on IV antibiotic Acute kidney injury--trending up. Acute left lower lobe pneumonia Rhabdomyolysis likely due to fall/on the ground--- resolved Episodes of hypoglycemia as low as 30s--resolved but today he is having hypoglycemia in the 50s to 60s Right sided pleural effusion requiring thoracentesis Chronic right knee pain status post arthroscopy and lavage department of the right knee with partial medial meniscectomy and medial femoral condyle and medial tibial plateau chondroplasty History of coronary artery disease status post stent History of proximal atrial fibrillation on amiodarone and heparin drip Type 1 diabetes Dyslipidemia History of [place] Chronic back pain Chronic alcohol abuse Plan: Continue thiamine 100 mg daily. Orthopedic surgery team is on board. They recommended MRI lumbar with and without PT OT and ONCOLOGY TECHNICIAN are consulted Will defer the rest of the medical management to primary and other specialist. Nephrology is on board ID is on board Please avoid further hypoglycemic event Will defer the rest of the medical management to primary and other specialist The plan discussed with the patient's nurse. Will follow-up with the patient sporadically. Time with Patient: Less than 30
[2024-10-30 20:19] LABS: Glucose,Whole Blood 227 mg/dL (70-110)
[2024-10-31 06:22] LABS: Glucose,Whole Blood 274 mg/dL (70-110)
[2024-10-31 07:56] LABS: Basophils % (A) 1 %; Eosinophils # (A) 0.1 k/uL (0-0.7); Eosinophils % (A) 1 %; HCT 23.9 % (39.0-53.0); HGB 7.5 gm/dL (13.0-17.5); Hypochromasia Moderate; Lymphocytes # (A) 1.1 k/uL (1.0-4.8); Lymphocytes % (A) 13 %; MCH 34.1 pg (25.0-35.0); MCHC 31.3 g/dL (31.0-37.0); MCV 108.7 fL (80.0-100.0); Macrocytosis Marked; Mean Platelet Volume 9.4; Monocytes # (A) 0.3 k/uL (0-1.0); Monocytes % (A) 4 %; Neutrophils # (A) 6.9 k/uL (1.3-7.7); Neutrophils % (A) 80 %; Platelet Count 365 k/uL (150-450); RDW 15.5 % (11.5-15.5); WBC 8.7 k/uL (3.8-10.6)
[2024-10-31 08:25] LABS: African American GFR (CKD) 14 (>60 ml/min/1.73 sqM); Anion Gap 8 mmol/L; Blood Urea Nitrogen 60 mg/dL (9-20); Calcium 8.9 mg/dL (8.4-10.2); Carbon Dioxide 21 mmol/L (22-30); Chloride 109 mmol/L (98-107); Glucose 207 mg/dL (74-99); Magnesium 1.6 mg/dL (1.6-2.3); Non-African American GFR(CKD) 12 (>60 ml/min/1.73 sqM); Potassium 4.2 mmol/L (3.5-5.1); Sodium 138 mmol/L (137-145)
[2024-10-31] MEDS: HYDROcodone/APAP 5-325MG 1 EACH TAB PO PRN (10:20)
--- NOTE | 2024-10-31 11:51 | P.PN ---
Subjective HISTORY OF PRESENT ILLNESS: The patient is a 64-year-old male who was admitted with an acute CVA. He was found to have new onset of atrial fibrillation. Over the course of the admission he had drops in hemoglobin and therefore has not been started on anticoagulation. He remains in sinus rhythm on oral amiodarone. Patient continues to work with physical therapy as well as speech. He currently denies any chest pain or difficulty breathing. 10/29/2024 Patient examined this morning at the bedside. Patient is somewhat lethargic. He appears to be resting comfortably. Patient currently denies chest pain or pressure. He denies shortness of breath. He is maintaining sinus mechanism. Hemoglobin 8.0. Creatinine worsened today at 4.24 up from 3.68. 10/30/2024 Patient examined this morning the bedside. Patient denies chest pain or pr essure. He denies shortness of breath. Telemetry reveals sinus mechanism. Vital signs are stable. 10/31/2024 Patient examined this morning the bedside. Patient denies chest pain or pressure. He denies shortness of breath. Telemetry reveals sinus mechanism. Vital signs are stable. PHYSICAL EXAM: VITAL SIGNS: Reviewed. GENERAL: Well-developed in no acute distress. NECK: Supple. No JVD or thyromegaly LUNGS: Respirations even and unlabored. Lungs essentially clear to auscultation bilaterally. HEART: Regular rate and rhythm. S1 and S2 heard. EXTREMITIES: Normal range of motion. No clubbing or cyanosis. Peripheral pulses intact. No lower extremity edema ASSESSMENT: Acute CVA with right-sided hemiplegia Paroxysmal atrial fibrillation Acute left lower lobe pneumonia Anemia secondary to blood loss Acute renal failure Septic arthritis, status post arthroscopy and arthroscopic lavage History of alcohol abuse PLAN: Continue current cardiac medications Continue telemetry monitoring From a cardiac standpoint, recommend anticoagulation for atrial fibrillation. However will defer to internal medicine and additional consulting providers Patient is stable from a cardiac standpoint. No further inpatient recommendations Patient to follow-up postdischarge with Dr. Saavedra We will sign off. Please reconsult if needed. Nurse practitioner note has been reviewed by physician. Signing provider agrees with the documented findings, assessment, and plan of care documented by [employer] as a scribe. Objective - Vital Signs Vital signs: Vital Signs Temp 97.9 F 10/30/24 20:00 Pulse 75 10/31/24 11:30 Resp 16 10/31/24 04:00 BP 110/60 10/31/24 04:00 Pulse Ox 97 10/31/24 04:00 FiO2 4 10/28/24 04:00 Intake & Output 10/30/24 10/31/24 10/31/24 18:59 06:59 18:59 Intake Total 118 360 Output Total 1650 Balance -1532 360 Weight 92 kg Intake: Oral 118 360 Output: Urine 1650 Other: Voiding Method Indwelling Catheter Indwelling Catheter ABP, PAP, CO, CI - Last Documented Arterial Blood Pressure 128/42 - Labs CBC & Chem 7: 10/31/24 07:40 10/31/24 07:40 Labs: Abnormal Lab Results - Last 24 Hours (Table) 10/30/24 10/30/24 10/30/24 Range/Units 12:17 12:30 12:46 RBC (4.30-5.90) m/uL Hgb (13.0-17.5) gm/dL Hct (39.0-53.0) % MCV (80.0-100.0) fL Macrocytosis Chloride (98-107) mmol/L Carbon Dioxide (22-30) mmol/L BUN (9-20) mg/dL Creatinine (0.66-1.25) mg/dL Glucose (74-99) mg/dL POC Glucose (mg/dL) 61 L 56 L 68 L (70-110) mg/dL 10/30/24 10/30/24 10/30/24 Range/Units 13:26 17:00 20:18 RBC (4.30-5.90) m/uL Hgb (13.0-17.5) gm/dL Hct (39.0-53.0) % MCV (80.0-100.0) fL Macrocytosis Chloride (98-107) mmol/L Carbon Dioxide (22-30) mmol/L BUN (9-20) mg/dL Creatinine (0.66-1.25) mg/dL Glucose (74-99) mg/dL POC Glucose (mg/dL) 166 H 172 H 227 H (70-110) mg/dL 10/31/24 10/31/24 10/31/24 Range/Units 06:20 07:40 07:40 RBC 2.20 L (4.30-5.90) m/uL Hgb 7.5 L (13.0-17.5) gm/dL Hct 23.9 L (39.0-53.0) % MCV 108.7 H (80.0-100.0) fL Macrocytosis Marked A Chloride 109 H (98-107) mmol/L Carbon Dioxide 21 L (22-30) mmol/L BUN 60 H (9-20) mg/dL Creatinine 4.87 H (0.66-1.25) mg/dL Glucose 207 H (74-99) mg/dL POC Glucose (mg/dL) 274 H (70-110) mg/dL Microbiology - Last 24 Hours (Table) 10/29/24 00:05 Urine Culture - Final Urine,Voided [place] albicans
[2024-10-31 11:59] LABS: Glucose,Whole Blood 313 mg/dL (70-110)
--- NOTE | 2024-10-31 13:15 | P.PN ---
Subjective patient is seen for follow-up for acute kidney injury. Renal function has been worsening with serum creatinine at 4.8 mg/dL today. Blake catheter had to be replaced yesterday due to significant urine retention of about 800 ML Blood pressure not low now. Maintained on IV Lasix for significant scrotal edema and volume overload No significant shortness of breath. Patient remains on 2-4 L of oxygen via nasal cannula. Urine output documented at 1650 mL for 24 hours Objective - Vital Signs Vital signs: Vital Signs Temp 97.9 F 10/30/24 20:00 Pulse 75 10/31/24 11:30 Resp 18 10/31/24 08:00 BP 110/60 10/31/24 04:00 Pulse Ox 97 10/31/24 04:00 FiO2 4 10/28/24 04:00 Intake & Output 10/30/24 10/31/24 10/31/24 18:59 06:59 18:59 Intake Total 118 435 Output Total 1650 Balance -1532 435 Weight 92 kg Intake: Oral 118 435 Output: Urine 1650 Other: Voiding Method Indwelling Catheter Indwelling Catheter Indwelling Catheter # Bowel Movements 0 ABP, PAP, CO, CI - Last Documented Arterial Blood Pressure 128/42 - Exam patient is awake and following commands. Examination of the heart S1 and S2 Examination of the lungs bilateral breath sounds are heard Abdomen is soft nontender Examination of lower extremities shows edema 2+. significant scrotal edema - Labs CBC & Chem 7: 10/31/24 07:40 10/31/24 07:40 Labs: Abnormal Lab Results - Last 24 Hours (Table) 10/30/24 10/30/24 10/30/24 Range/Units 13:26 17:00 20:18 RBC (4.30-5.90) m/uL Hgb (13.0-17.5) gm/dL Hct (39.0-53.0) % MCV (80.0-100.0) fL Macrocytosis Chloride (98-107) mmol/L Carbon Dioxide (22-30) mmol/L BUN (9-20) mg/dL Creatinine (0.66-1.25) mg/dL Glucose (74-99) mg/dL POC Glucose (mg/dL) 166 H 172 H 227 H (70-110) mg/dL 10/31/24 10/31/24 10/31/24 Range/Units 06:20 07:40 07:40 RBC 2.20 L (4.30-5.90) m/uL Hgb 7.5 L (13.0-17.5) gm/dL Hct 23.9 L (39.0-53.0) % MCV 108.7 H (80.0-100.0) fL Macrocytosis Marked A Chloride 109 H (98-107) mmol/L Carbon Dioxide 21 L (22-30) mmol/L BUN 60 H (9-20) mg/dL Creatinine 4.87 H (0.66-1.25) mg/dL Glucose 207 H (74-99) mg/dL POC Glucose (mg/dL) 274 H (70-110) mg/dL 10/31/24 Range/Units 11:57 RBC (4.30-5.90) m/uL Hgb (13.0-17.5) gm/dL Hct (39.0-53.0) % MCV (80.0-100.0) fL Macrocytosis Chloride (98-107) mmol/L Carbon Dioxide (22-30) mmol/L BUN (9-20) mg/dL Creatinine (0.66-1.25) mg/dL Glucose (74-99) mg/dL POC Glucose (mg/dL) 313 H (70-110) mg/dL Microbiology - Last 24 Hours (Table) 10/29/24 00:05 Urine Culture - Final Urine,Voided [place] albicans Assessment and Plan Assessment: 1. Acute kidney injury secondary to ATN secondary to septic shock and rhabdomyolysis. Creatinine 3.18 on admission and is improved to 0.9 -1.0. Serum creatinine has increased again to 4.4 today, blood pressure had been low but improved now. Urine output is improved. No hydronephrosis noted on kidney ultrasound. Rule out acute interstitial nephritis as etiology for second rise in creatinine. 2. Rhabdomyolysis secondary to immobility. CK levels trending down. 3. Strep bacteremia on antibiotics. 4. Anion gap metabolic acidosis secondary to acute kidney injury and lactic acidosis.improved. 5. Hyponatremia secondary to hypovolemia as well as acute kidney injury. Better. 6. Hypomagnesemia from poor intake and alcohol abuse. Replaced. 7. History of alcohol abuse. 8. Hypocalcemia, replaced. 25-hydroxy vitamin D was 26.5, started on supplementation. PTH appropriately increased. 9. Hypokalemia from poor intake. Replaced. Better. 10. A-fib with RVR status post amiodarone drip. 11. Volume overload with significant scrotal edema Plan: check urine eosinophils continue with midodrine continue with IV Lasix. I would avoid contrast with MRI given the worsening renal function Repeat labs in a.m. Hemodialysis if renal function continues to worsen
--- NOTE | 2024-10-31 13:15 | P.PN ---
Subjective Progress Note Date: 10/30/24 Principal diagnosis: Reason for follow-up is Streptococcus agalactiae bacteremia Patient is a 64-year-old male past medical history significant for diabetes mellitus hypertension hyperlipidemia NV osteoarthritis coronary disease patient was brought into the hospital after apparently the patient was found to be facedown on the ground with contusion to his forehead and abrasion to his knee and some bloody toes, patient did have a fever subsequently blood cultures came back positive with Streptococcus agalactiae prompting this consultation. Patient noticed to have swelling of the right knee aspirate was purulent subsequently the patient did have a right knee washout completed by orthopedics on 10/10/2024. On today's evaluation that is 10/30/2024,the patient denies any fever or any chills, patient is breathing comfortably on 3 L current oxygen, the patient elma es chest pain shortness of breath and no significant cough, patient denies abdominal pain, no nausea vomiting or diarrhea. Patient white count is 10.4 creatinine is 4.46 Objective - Vital Signs Vital signs: Vital Signs Temp 98.2 F 10/30/24 03:05 Pulse 80 10/30/24 12:07 Resp 18 10/30/24 03:05 BP 134/72 10/30/24 03:05 Pulse Ox 97 10/30/24 08:25 FiO2 4 10/28/24 04:00 Intake & Output 10/29/24 10/30/24 10/30/24 18:59 06:59 18:59 Intake Total 120 118 Output Total 900 300 Balance -780 -300 118 Intake: Oral 120 118 Output: Urine 900 300 Other: Voiding Method Indwelling Catheter Indwelling Catheter # Bowel Movements 1 1 ABP, PAP, CO, CI - Last Documented Arterial Blood Pressure 128/42 - Exam GENERAL DESCRIPTION: Middle-age male lying in bed in no distress RESPIRATORY SYSTEM: Unlabored breathing , coarse breath sounds bilaterally HEART: S1 S2 regular rate and rhythm , ABDOMEN: Soft , no tenderness EXTREMITIES: Swelling to the lower extremity and right knee but no redness - Labs CBC & Chem 7: 10/31/24 07:40 10/31/24 07:40 Labs: Abnormal Lab Results - Last 24 Hours (Table) 10/29/24 10/29/24 10/30/24 Range/Units 16:43 20:21 07:20 RBC (4.30-5.90) m/uL Hgb (13.0-17.5) gm/dL Hct (39.0-53.0) % MCV (80.0-100.0) fL RDW (11.5-15.5) % Chloride 111 H (98-107) mmol/L Carbon Dioxide 20 L (22-30) mmol/L BUN 62 H (9-20) mg/dL Creatinine 4.46 H (0.66-1.25) mg/dL POC Glucose (mg/dL) 163 H 222 H (70-110) mg/dL Magnesium 1.4 L (1.6-2.3) mg/dL 10/30/24 Range/Units 07:20 RBC 2.37 L (4.30-5.90) m/uL Hgb 8.0 L (13.0-17.5) gm/dL Hct 25.3 L (39.0-53.0) % MCV 106.8 H (80.0-100.0) fL RDW 15.6 H (11.5-15.5) % Chloride (98-107) mmol/L Carbon Dioxide (22-30) mmol/L BUN (9-20) mg/dL Creatinine (0.66-1.25) mg/dL POC Glucose (mg/dL) (70-110) mg/dL Magnesium (1.6-2.3) mg/dL Microbiology - Last 24 Hours (Table) 10/29/24 00:05 Urine Culture - Preliminary Urine,Voided Yeast species Assessment and Plan (1) Sepsis Current Visit: Yes Status: Acute Code(s): A41.9 - SEPSIS, UNSPECIFIED ORGANISM SNOMED Code(s): 21332731 (2) Streptococcal bacteremia Current Visit: Yes Status: Acute Code(s): R78.81 - BACTEREMIA; B95.5 - UNSP STREPTOCOCCUS THE CAUSE OF DISEASES [facility] SNOMED Code(s): 636424300067 Plan: 1patient presented to the hospital with sepsis in this patient who did have fever tachycardia elevated white count and now with evidence of streptococcal bacteremia which is usually of skin and soft tissue origin 2-patient noticed to have right knee effusion has been evaluated by orthopedics and is status post aspiration with purulent drainage subsequently did have right knee washout by orthopedic cultures are pending may need further workup including MRI of the spine when stable. Ortho is following the patient closely 3patient right knee fluid culture also came back positive with group A strep 4-patient did have left-sided pneumonia patient required reintubation and also status post bronchoscopy and lavage sputum culture so far negative, initial culture growing Enterobacter that is sensitive to cefepime patient subsequently has been successfully extubated 5the patient remains to be afebrile white count has been normal, 6- patient is currently being treated ertapenem 500 mg daily dose adjusted to kidney function plan will transition to Rocephin on DC for his septic arthritis Dictation was produced using [employer] software. please excuse any grammatical, word or spelling errors. Time with Patient: Less than 30
--- NOTE | 2024-10-31 13:16 | P.PN ---
Subjective Progress Note Date: 10/31/24 Principal diagnosis: Reason for follow-up is Streptococcus agalactiae bacteremia Patient is a 64-year-old male past medical history significant for diabetes mellitus hypertension hyperlipidemia ID osteoarthritis coronary disease patient was brought into the hospital after apparently the patient was found to be facedown on the ground with contusion to his forehead and abrasion to his knee and some bloody toes, patient did have a fever subsequently blood cultures came back positive with Streptococcus agalactiae prompting this consultation. Patient noticed to have swelling of the right knee aspirate was purulent subsequently the patient did have a right knee washout completed by orthopedics on 10/10/2024. On today's evaluation that is 10/31/2024,the patient remains to be afebrile, patient is on 3 L nasal cannula supplemental oxygen and denies any shortness of breath no chest pain or cough.Patient denies having any nausea or vomiting, no abdominal pain and no diarrhea has been reported. Patient white count is 8.7 creatinine is 4.87 urine is growing [place] albicans Objective - Vital Signs Vital signs: Vital Signs Temp 97.9 F 10/30/24 20:00 Pulse 75 10/31/24 11:30 Resp 18 10/31/24 08:00 BP 110/60 10/31/24 04:00 Pulse Ox 97 10/31/24 04:00 FiO2 4 10/28/24 04:00 Intake & Output 10/30/24 10/31/24 10/31/24 18:59 06:59 18:59 Intake Total 118 435 Output Total 1650 Balance -1532 435 Weight 92 kg Intake: Oral 118 435 Output: Urine 1650 Other: Voiding Method Indwelling Catheter Indwelling Catheter Indwelling Catheter # Bowel Movements 0 ABP, PAP, CO, CI - Last Documented Arterial Blood Pressure 128/42 - Exam GENERAL DESCRIPTION: Middle-age male lying in bed in no distress RESPIRATORY SYSTEM: Unlabored breathing , coarse breath sounds bilaterally HEART: S1 S2 regular rate and rhythm , ABDOMEN: Soft , no tenderness EXTREMITIES: Swelling to the lower extremity and right knee but no redness - Labs CBC & Chem 7: 10/31/24 07:40 10/31/24 07:40 Labs: Abnormal Lab Results - Last 24 Hours (Table) 10/30/24 10/30/24 10/30/24 Range/Units 13:26 17:00 20:18 RBC (4.30-5.90) m/uL Hgb (13.0-17.5) gm/dL Hct (39.0-53.0) % MCV (80.0-100.0) fL Macrocytosis Chloride (98-107) mmol/L Carbon Dioxide (22-30) mmol/L BUN (9-20) mg/dL Creatinine (0.66-1.25) mg/dL Glucose (74-99) mg/dL POC Glucose (mg/dL) 166 H 172 H 227 H (70-110) mg/dL 10/31/24 10/31/24 10/31/24 Range/Units 06:20 07:40 07:40 RBC 2.20 L (4.30-5.90) m/uL Hgb 7.5 L (13.0-17.5) gm/dL Hct 23.9 L (39.0-53.0) % MCV 108.7 H (80.0-100.0) fL Macrocytosis Marked A Chloride 109 H (98-107) mmol/L Carbon Dioxide 21 L (22-30) mmol/L BUN 60 H (9-20) mg/dL Creatinine 4.87 H (0.66-1.25) mg/dL Glucose 207 H (74-99) mg/dL POC Glucose (mg/dL) 274 H (70-110) mg/dL 10/31/24 Range/Units 11:57 RBC (4.30-5.90) m/uL Hgb (13.0-17.5) gm/dL Hct (39.0-53.0) % MCV (80.0-100.0) fL Macrocytosis Chloride (98-107) mmol/L Carbon Dioxide (22-30) mmol/L BUN (9-20) mg/dL Creatinine (0.66-1.25) mg/dL Glucose (74-99) mg/dL POC Glucose (mg/dL) 313 H (70-110) mg/dL Microbiology - Last 24 Hours (Table) 10/29/24 00:05 Urine Culture - Final Urine,Voided [place] albicans Assessment and Plan (1) Sepsis Current Visit: Yes Status: Acute Code(s): A41.9 - SEPSIS, UNSPECIFIED ORGANISM SNOMED Code(s): 46485765 (2) Streptococcal bacteremia Current Visit: Yes Status: Acute Code(s): R78.81 - BACTEREMIA; B95.5 - UNSP STREPTOCOCCUS THE [facility] Code(s): 467627874956 Plan: 1patient presented to the hospital with sepsis in this patient who did have fever tachycardia elevated white count and now with evidence of streptococcal bacteremia which is usually of skin and soft tissue origin 2-patient noticed to have right knee effusion has been evaluated by orthopedics and is status post aspiration with purulent drainage subsequently did have right knee washout by orthopedic cultures are pending may need further workup including MRI of the spine when stable. Ortho is following the patient closely 3patient right knee fluid culture also came back positive with group A strep 4-patient did have left-sided pneumonia patient required reintubation and also status post bronchoscopy and lavage sputum culture so far negative, initial culture growing Enterobacter that is sensitive to cefepime patient subsequently has been successfully extubated 5the patient remains to be afebrile white count has been normal, 6- patient is currently being treated ertapenem 500 mg daily, Diflucan has been added with a positive urine culture with [place] albicans consider discontinuation or change of his Blake catheter Dictation was produced using [employer] dictation software. please excuse any grammatical, word or spelling errors. Time with Patient: Less than 30
--- NOTE | 2024-10-31 13:45 | P.PN ---
Progress Note - Text Progress Note Date: 10/31/24 right knee septic arthropathy, status post diagnostic arthroscopy with lavage Bacteremia Chronic back pain Complex medical patient Patient on 3S cardiac floor. MRI with and without contrast of lumbar spine still unable to be performed due to patient's elevated creatinine. Recommend MRI with and without contrast once patient kidney function improves. Nothing further at this time from ortho standpoint. We will defer rest of management to primary medical team. At this time orthopedics is signing off. Please do not hesitate to contact us for any further questions.
--- NOTE | 2024-10-31 14:14 | P.PN ---
Subjective Progress Note Date: 10/31/24 Patient is a 64-year-old male who is being seen in the ICU due to hypovolemic shock and rhabdomyolysis. He is a poor historian due to altered mental status and unresponsiveness. All history is obtained from the chart. He initially presented to the emergency department after being found facedown on the ground with a contusion to his forehead and abrasions to his knee and left toes. She stated that he had been having nausea and vomiting for a day prior to being found down. He was noted to have diarrhea as well. Patient is a daily drinker and consumes about a fifth per day according to the notes he has not drank for the 2 days prior to this admission. He also has a history of type 1 diabetes m ellitus. Initial EKG showed sinus tachycardia. Head/cervical spine CT showed no acute intracranial process and no acute fracture or traumatic subluxation of the cervical spine. Initial chest x-ray showed right middle lobe scarring/atelectasis, no acute pulmonary process. He had received 4 L of normal saline. Initial labs showed CK level of 18,113, WBCs 10.7, hemoglobin 12.5, sodium 126, creatinine 3.18 lactic acid 6.9, AST 401, ALT 65. Preliminary blood culture showed gram-positive cocci and patient was started on vancomycin. On 10/20/2024, the patient remains sedated on propofol. Arousable and moving all 4 extremities. He is status post reintubation on 10/18/2024 and is status post bronchoscopy x 2 with evacuation of mucous plugs from his left lower lobe. The patient has Enterobacter erogenous in his sputum and the patient remains on IV cefepime. This morning, he remains on assist-control mode with rate of 14, tidal volume of 500, FiO2 of 50% with a PEEP of 10. Blood gas shows significant improvement oxygenation and the pO2 is up to 153 and a pH is at 7.4 with a pCO2 of 41. The patient remains on low-dose norepinephrine at 0.04 mcg/kg/min. He remains on IV heparin for paroxysmal A-fib. Hemoglobin dropped down to 6.7 and the patient is going to receive a unit of packed RBC. Creatinine is up to 1.5. He remains on vital high-protein at rate of 40 cc an hour. Fluid balance is +1.2 L over the past 24 hours. He is afebrile. Patient was seen today on 10/21/24, patient remains in the ICU, patient is on mechanical ventilation with assist-control rate of 14 tidal volume 500 FiO2 40% and PEEP of 6 ABG showed a pO2 of 27 pCO2 34 pH of 7.47. No changes were made in vent settings. Patient remains on propofol at 40 mcg/kg/min, received a unit of packed RBCs yesterday for low hemoglobin. Remains on vital HP patient is receiving cefepime for Enterobacter around [place] and his sputum. Patient had strep a in the right knee joint patient is covered with cefepime remains on Lasix 40 mg IV push daily his initial presentation to the hospital was when he was found facedown on the ground with a contusion on his forehead and abrasion on his left knee as well as left toes. Patient is known to be a heavy drinker, consumes 1/5/day according to the notes in the chart. Patient is also known to have type 1 diabetes, intubation on 10/10/2024 following his knee surgery patient was extubated on 10/15, however he had to be reintubated on 10/18 bronchoscopy was done for extensive pneumonia involving the left lower lobe and mucous plugs were suctioned. Patient also had another bronchoscopy on 09/22 with improvement in his chest x-ray findings and left lower lobe pneumonia. Sputum cultures have been positive for Enterobacter allergies. Has been on IV cefepime WBC count today 6.3 hemoglobin 7.8 metabolic profile is normal BUN is 42 creatinine 1.67. Chest x-ray continues to show bibasilar airspace disease left lower lobe more so than right lower lobe Patient was eval today and 10/22/2024, patient remains in the ICU, intubated and mechanically ventilated, on assist-control rate of 14 tidal volume 500 FiO2 40% PEEP of 6 ABG showed a pO2 of 93 pCO2 34 pH of 7.50 peak airway pressure is 23 Plateau pressure is 16 continues to have some clear yellow sputum that is easily suctioned will not require bronchoscopy today considering the easily suctioned the mucus secretions. Patient is on propofol at 40 mcg/kg/min vital HP at 40 mL/h IV fluid at KVO patient remains on antibiotics in the form of cefepime, he has Enterococcus in the sputum and he had strep pain from his knee. Leg susi on Lasix 40 mg twice daily chest x-ray is showing slight improvement in his bibasilar pneumonia hence I am not recommending bronchoscopy today I will try to give the patient a trial of weaning if possible. Labs today were reviewed WBC count is 5.8 hemoglobin 7.9 platelets are 306, electrolytes are normal BUN is 43 creatinine 1.85 Patient was seen today on 10/23/2024, remains in the ICU, however the patient was extubated yesterday and so far he seems to be tolerating the extubation well. Patient is on 3 L nasal cannula, he is alert, but extremely slow. And complaining of right upper extremity swelling and pain. Considering the patient had a fall I will recommend x-rays of the right upper extremity and I would recommend ultrasound/venous Doppler of the right upper extremity. Patient continues to have pneumonia based on chest x-ray, left lower lobe is quite concerning patient does not have a very good cough. Hoping he does not require bronchoscopy again. In the meantime he is on cefepime. Patient had worsening of his renal functioning and I discontinued his Lasix today. He is on subcu heparin for DVT prophylax. And I do not believe the patient is quite ready to be discharged out of the ICU yet, I will keep him in the ICU for another day. And follow-up chest x-ray will be done in a.m. His WBC count is 6 hemoglobin 8.2 electrolytes are normal BUN is 46 creatinine 2.19 Seen today on 10/24/2024, patient remains in the ICU, off mechanical ventilation, on2 L nasal cannula with O2 saturation between 94 to 97%. Patient is confused, he is not in any form of respiratory distress.WBC is 5.8 hemoglobin 7.6 electrolytes are normal BUN is 46 creatinine 2.22, slightly improved compared to yesterday after holding his diuretics chest x-ray is showing slight improvement in his pneumonia. However what seems to be quite concerning to me is his mental status patient seems to be confused, and continues to have difficulty moving his right upper extremity workup on the right upper extremity has been negative including x-rays and Doppler. Patient was seen today on 10/25/2024, patient remains in the ICU, mental status is basically about the same, patient remains encephalopathic, continues to have difficulty raising his right upper extremity hence orthopedics was consulted. Chest x-ray continues to show bilateral pneumonia left a bit worse than right, patient is on antibiotics for Enterobacter erogenous noted previously on his sputum. Patient is able to clear his secretions on his own, he does have a vigorous cough, his overall mental status seems to be a bit concerning, neurology was consulted on the patient today yesterday, felt that the patient may have metabolic encephalopathy. In addition to this the patient has some ischemic changes noted in the distal aspect of his left fourth toe and at the base of his big toe, hence I recommended vascular surgery evaluation. He does have good pulses by Doppler on that same foot. Labs today show WBC is 5.4 hemoglobin 7.7 electrolytes are normal BUN is 47 creatinine 2.30 Patient seen today on 10/26/2024, remains in ICU, remains on 4 L nasal cannula mentation is about the same, remains encephalopathic but follows simple instructions, continues to have issues with his right upper extremity patient is on IV fluid at KVO however I increased IV fluid today to 70 cc/h as his renal function seems to be getting a bit worse. And I am recommending that we stop diuretics altogether. Patient remains on cefepime for Enterobacter in his sputum. Chest x-ray continues show bilateral pneumonia minimal improvement noted. But continues to have significant infiltrates specially in the left lower lobe. WBC is 5.3 hemoglobin 7.3 basic metabolic profile is normal BUN is up to 51 creatinine up to 2.66 Patient was seen today on 10/27/2024, remains in the ICU remains on 4 L nasal can nula remains on IV fluid at 75 cc/h his urine output seems to be marginal down to 15/20 cc/h hence I am recommending a low-dose of Lasix 60 mg IV push x 1. Patient is becoming a bit more edematous hoping that he will improve with gentle diuresis. Renal functioning seems to be getting worse over the last few days in spite of holding the Lasix and inspite of hydrating the patient cautiously patient remains on Invanz for his Enterococcus erogenous in the sputum this is being addressed by infectious disease, chest x-ray continues show bilateral infiltrates left more so than right patient also has small bilateral pleural effusions. Lasix was given today and he remains on antibiotics for his un derlying pneumonia. The patient is seen today October 28, 2024 in follow-up in the intensive care [facility]. He is currently sitting up in bed. Awake. Somewhat slow to respond. He is maintaining good O2 saturation mid 90s on 3 L/min per nasal cannula. He has been afebrile. Hemodynamically stable. Right knee culture was positive for strep A. Previous sputum culture had been positive for enterofactor aerogenes. Follow-up cultures revealed no growth. Pleural fluid cultures revealed no growth. He 2. Potassium 4.9. Bicarb 21. BUN 58. Creatinine 3.68. Glucose 66. He is continued on DuoNeb and elations. Heparin for DVT prophylaxis. Antibiotics in the form of ertapenem. The patient is seen today October 29, 2024 in follow-up on the selective care unit. He was transferred out of the ICU yesterday. He is currently sitting up in bed. Awake and alert. Still somewhat slow to respond. He is maintaining O2 saturations in the 90s on 3 L/min per nasal cannula. He is been afebrile. Hemodynamically stable. He is status post 1 unit of packed red blood cells this admission. Current hemoglobin 8.0. Platelets 332. White count 7.9. Sodium 139. Potassium 4.4. Bicarb 23. BUN 59. Creatinine 4.24. Glucose 78. Urinalysis with moderate bacteria. Culture pending. He remains on ertapenem. Continued on bronchodilators. Remains on IV diuretics. Currently in a negative balance. Heparin for DVT prophylaxis. The patient is seen today October 30, 2024 in follow-up on the selective care unit. He is currently up in a chair at the bedside. Awake and alert in no acute distress. He is maintaining O2 saturations in the 90s on 3 L/min per nasal cannula. No IV fluids. He is continued on antibiotics in the form of ertapenem. Continued on IV diuretics. Heparin for DVT prophylaxis. Urine culture showing yeast species. Pleural fluid cultures revealed no growth. Whit e count 10.4. Hemoglobin 8.0. MCV 106.8. Platelets 374. Sodium 137. Potassium 4.2. Bicarb 20. BUN 62. Creatinine 4.46. Glucose 87. The patient is seen today October 31, 2024 in follow-up on the selective care unit. He is currently sitting up in bed. Awake and alert in no acute distress. He is maintaining O2 saturations in the 90s on 3 L/min per nasal cannula. White count 8.7. Hemoglobin 7.5. Platelets 365. Sodium 138. Potassium 4.2. Bicarb 21. BUN 60. Creatinine 4.87. Glucose 207. He remains on DuoNeb inhalations. Antibiotics in the form of ertapenem. Currently on fluconazole. Remains on IV diuretics. He is making urine. Objective - Vital Signs Vital signs: Vital Signs Temp 97.9 F 10/30/24 20:00 Pulse 75 10/31/24 11:30 Resp 18 10/31/24 08:00 BP 110/60 10/31/24 04:00 Pulse Ox 97 10/31/24 04:00 FiO2 4 10/28/24 04:00 Intake & Output 10/30/24 10/31/24 10/31/24 18:59 06:59 18:59 Intake Total 118 435 Output Total 1650 Balance -1532 435 Weight 92 kg Intake: Oral 118 435 Output: Urine 1650 Other: Voiding Method Indwelling Catheter Indwelling Catheter Indwelling Catheter # Bowel Movements 0 ABP, PAP, CO, CI - Last Documented Arterial Blood Pressure 128/42 - Exam GENERAL EXAM: Alert, slow to respond, 64-year-old male, on 3 L nasal cannula, in no apparent distress. HEAD: Normocephalic. EYES: Normal reaction of pupils, equal size. NOSE: Clear with pink turbinates. THROAT: No erythema or exudates. NECK: No masses, no JVD. CHEST: No chest wall deformity. LUNGS: Equal air entry with bilateral scattered rhonchi. CVS: S1 and S2 normal with no audible murmur, regular rhythm. ABDOMEN: No hepatosplenomegaly, normal bowel sounds, no guarding or rigidity. SPINE: No scoliosis or deformity SKIN: No rashes CENTRAL NERVOUS SYSTEM: No focal deficits, tone is normal in all 4 extremities. EXTREMITIES: Edema of the right upper extremity. There is no peripheral edema. No clubbing, no cyanosis. Peripheral pulses are intact. - Labs CBC & Chem 7: 10/31/24 07:40 10/31/24 07:40 Labs: Abnormal Lab Results - Last 24 Hours (Table) 10/30/24 10/30/24 10/31/24 Range/Units 17:00 20:18 06:20 RBC (4.30-5.90) m/uL Hgb (13.0-17.5) gm/dL Hct (39.0-53.0) % MCV (80.0-100.0) fL Macrocytosis Chloride (98-107) mmol/L Carbon Dioxide (22-30) mmol/L BUN (9-20) mg/dL Creatinine (0.66-1.25) mg/dL Glucose (74-99) mg/dL POC Glucose (mg/dL) 172 H 227 H 274 H (70-110) mg/dL 10/31/24 10/31/24 10/31/24 Range/Units 07:40 07:40 11:57 RBC 2.20 L (4.30-5.90) m/uL Hgb 7.5 L (13.0-17.5) gm/dL Hct 23.9 L (39.0-53.0) % MCV 108.7 H (80.0-100.0) fL Macrocytosis Marked A Chloride 109 H (98-107) mmol/L Carbon Dioxide 21 L (22-30) mmol/L BUN 60 H (9-20) mg/dL Creatinine 4.87 H (0.66-1.25) mg/dL Glucose 207 H (74-99) mg/dL POC Glucose (mg/dL) 313 H (70-110) mg/dL Microbiology - Last 24 Hours (Table) 10/29/24 00:05 Urine Culture - Final Urine,Voided [place] albicans Assessment and Plan Assessment: Acute hypoxic respiratory failure, extubated on 10/22/2024. Currently on 3 L/min per nasal cannula Acute left lower lobe pneumonia secondary to Enterobacter aerogenes. Follow-up cultures revealed no growth Acute metabolic encephalopathy, improving Septic shock, resolved Right-sided pleural effusion requiring thoracentesis and 400 cc of fluid removed cultures revealed no growth, cytology negative for malignancy Septic arthritis of the right knee requiring surgery cultures positive for strep A, patient was transitioned from cefepime to Invanz by infectious disease mostly because of the sputum cultures showing Enterobacter erogenous Chronic back pain may need MRI of the lumbosacral spine Chronic alcohol abuse and acute alcohol withdrawal syndrome recovered Status post arthroscopy and arthroscopic lavage and debridement of right knee with partial medial meniscectomy and medial femoral condyle and medial tibial plateau chondroplasty this was done on 10/06/2024 Acute kidney injury, with worsening creatinine, currently 4.87 Acute on chronic anemia History of underlying coronary artery disease and previous stent placement History of LV dysfunction and cardiomyopathy with ejection fraction of 45% Paroxysmal atrial fibrillation currently patient is in sinus rhythm. On amioda mikal and heparin drip Type 1 diabetes GERD without esophagitis Dyslipidemia History of [place] History of degenerative joint disease Right upper extremity swelling and pain with limitation in range of motion, seen by orthopedic Suspect peripheral vessel occlusive disease and ischemic changes seen by vascular Plan: The patient was seen and evaluated Labs and medications reviewed On a dysphagia level 2 ground diet Remains on ertapenem Remains on IV Lasix May require renal replacement therapy Follow-up labs in the a.m. Nephrology is following Continued on bronchodilators Titrate down the FiO2 as tolerated Plan is for subacute rehab at [facility] at discharge I have personally seen and examined the patient, performed the documentation and the assessment and plan as written. Number of minutes spent on the visit: 10 Dictation was produced using [employer] dictation software. Please excuse any grammatical, word or spelling errors.
[2024-10-31 16:58] LABS: Glucose,Whole Blood 319 mg/dL (70-110)
[2024-10-31] MEDS: TAMSULOSIN 0.4 MG CAP.ER.24H PO SCH (17:30)
--- NOTE | 2024-10-31 17:32 | P.PN ---
Subjective Progress Note Date: 10/31/24 64-year-old male who is being seen in the ICU due to hypovolemic shock and rhabdomyolysis. He is a poor historian due to altered mental status and unresponsiveness. All history is obtained from the chart. He initially presented to the emergency department after being found facedown on the ground with a contusion to his forehead and abrasions to his knee and left toes. She stated that he had been having nausea and vomiting for a day prior to being found down. He was noted to have diarrhea as well. Patient is a daily drinker and consumes about a fifth per day according to the notes he has not drank for the 2 days prior to this admission. He also has a history of type 1 diabetes mellitus. Initial EKG showed sinus tachycardia. Head/cervical spine CT showed no acute intracranial process and no acute fracture or traumatic subluxation of the cervical spine. Initial chest x-ray showed right middle lobe scarring/atelectasis, no acute pulmonary process. He had received 4 L of normal saline. Initial labs showed CK level of 18,113, WBCs 10.7, hemoglobin 12.5, sodium 126, creatinine 3.18 lactic acid 6.9, AST 401, ALT 65. Preliminary blood culture showed gram-positive cocci and patient was started on vancomycin. 24-hour interval change 10/12/2024 -- Patient is evaluated in the ICU. He remains intubated on mechanical ventilation - ABG shows pH 7.42, pCO2 38, pO2 74. - He is maintained on vasopressin 0.02 units/min, normal saline at 20 cc/h, IV hydrocortisone 50 mg every 6 hours, and Kefzol day 5. Labs are reviewed WBCs 17.4, hemoglobin 8.2, hematocrit 25.2, platelets 53, sodium 142, potassium 3.7, chloride 116, CO2 23, BUN 39, creatinine 1.18, glu cose 258. Ionized calcium 4.4. Magnesium 1.8. Today's chest x-ray is unchanged. Wound culture gram stain of the right knee preliminary report shows rare gram positive cocci. 10/13/2024 Patient is seen and evaluated in ICU at bedside; remains on the mechanical ventilator. Discussed with nursing staff. Concerns about elevated blood sugars; patient was placed on home dose of Lantus which did not help much - Blood gases show pO2 72, pCO2 41, and pH is 7.42. - The patient is on propofol at 35 mcg/kg/min, saline at 20 cc an hour, and vital high-protein at 60, with goal of 70. Yesterday, he had a brief spontaneous breathing trial, and he did poorly. Today he will again have a spontaneous breathing trial, of pressure support of 5 and CPAP of 5. He continues on Ancef. White count 18.8, hemoglobin 8.2, hematocrit 25.8, platelet count 78,000. Sodium 144, potassium 4.1, chlorides 117, CO2 26, BUN 47, creatinine 1.18. Glucose is 340. Albumin is 2.1. Previous blood cultures from October 06 show group A streptococci. Chest x-ray shows bibasilar infiltrates. -- For hyperglycemia I will increase dose of Lantus and add insulin lispro every 4 hours; continue with current sliding scale 10/14/2024 Patient is seen in follow-up today continues on Precedex and attempting to wean maintained on mechanical ventilation with an FiO2 of 50% PEEP is 5. Per nursing staff attempting sedation holiday although did not go well yesterday. Patient is maintained on antibiotics with infectious disease following and patient is status post right knee aspiration with preliminary culture showing strep a with positive blood cultures. Patient continues with significant swelling especially the scrotal area maintained on IV Lasix and will continue. No discussion of PEG and trach as of yet and patient remains full code. Prognosis is guarded. 10/15/2024 Patient is seen this morning continues to be in the ICU currently working on weaning FiO2 and undergoing sedation holiday. Patient is eye tracking and following commands and per pulmonary paper testing supervisor working on extubation today. Will await official report and monitor closely. Patient is continued on antibi otics with infectious disease following. 10/16/2024 Patient is seen in follow-up this morning extubated successfully currently maintained on 6 L high flow nasal cannula. Patient is awake and responding appropriately to questions and commands. Patient is extremely lethargic at times and significantly weak with significant edema noted. Sodium is elevated at 150 and is continued on D5 and water. Blood sugars have been elevated and will adjust insulins accordingly. Patient swallow eval performed and failed awaiting reevaluation with speech. Continue n.p.o. for now. White count remains elevated patient is maintained on antibiotics with infectious disease following. Awaiting repeat cultures. Procalcitonin 1.06. Questions and concerns were answered to the best of my ability with son at the bedside. 10/17/2024 Patient is evaluated today in follow up in the ICU. He was extubated yesterday. Continues on oxygen support on 100% BiPAP at this time. Cultures from the right knee arthroscopy reveals Strep A. Chest xray today reveals no change to the bibasilar opacities. Chest ultrasound reveals right pleural effusion pocket size 6.0 cm and left pleural effusion pocket size of 4.9 cm. Both sides marked for possible thoracentesis. Labs today reveal white blood cell count of 11.8, hgb 7.5, sodium 146, potassium 3.4, BUN 43, creatinine 1.06. Blood glucose 200s. Continues on IV amiodarone, IV cefepime, IV vancomycin. Patient is in normal sinus rhythm currently heart rate in the 80s. 10/18/2024 Patient evaluated today in follow up in the ICU. He is awake alert oriented continues on BiPAP. He is status post right sided thoracentesis with 400 mL off. Chest xray today reveals stable bilateral lower lobe infiltrate and small pleural effusion. White blood cell count today 10.4. Continues on IV vancomycin and IV cefepime. Remains on IV amiodarone. on IV heparin. Patient remains NPO at this time, speech therapy to follow up today to reassess. 10/19/2024 Patient remains in the ICU. He is on the mechanical ventilator, FiO2 of 50%. Chest x-ray today shows left lower lobe pneumonia and/or atelectasis and pleural effusion. Elian in the left lung base is obscuring the left heart border and the hemidiaphragm has decreased in the interval. White blood cell count today is 8.4, hemoglobin 7.1, sodium 144, BUN of 40, creatinine of 1.43. His viral panel is negative for all viruses checked. 10/20/2024 Patient remains the intensive care unit he is currently on mechanical ventilator with an FiO2 of 50%. He is awake and alert and responding to commands. His chest x-ray reveals continued acute coronary cardiopulmonary disease involving the retrocardiac region with no significant interval change. Repeat sputum reveals Enterobacter he continues on IV cefepime at this time. Hemoglobin level today is 6.7 he will receive 1 unit of packed red blood cells. His creatinine is up to 1.51 today. Continues on oral amiodarone for the atrial fibrillation was taken off of anticoagulation secondary to the decreased hemoglobin. Patient is sedated with propofol at this time. He is also receiving IV Lasix daily prognosis remains guarded. 10/21/2024 Patient remains in the intensive care unit. Remains on the mechanical ventilator. He is currently sedated with propofol. He is alert and following commands. Chest xray unchanged continues to show pneumonia with sputum culture s howing enterobacter. He remains on IV cefepime. Hemoglobin better today at 7.8. BUN 42 creatinine 1.67. 10/22/2024 Patient is evaluated today in the intensive care unit. Patient was extubated today. He is awake alert and oriented. He is complaining of some back pain. Has IV dilaudid on board. Chest xray today reveals no evidence of pleural effusion, focal consolidation, or pneumothorax. He remains edematous. Creatinine 1.87 today. On IV lasix which has been increased to BID by nephrology. 3L of urine output in the last 24 hours. 10/23/2024 Patient evaluated today in follow up in the ICU. Currently on 2L of oxygen via nasal cannula with saturations of 99%. Remains on IV cefepime. Chest xray today reveals left lung airspace opacity. Creatinine up to 2.1 today IV lasix has been discontinued. Patient has been placed on normal saline at 75 mls/hr. Speech therapy re consulted for swallow evaluation post extubation. 10/24/2024 Patient evaluated today in follow up remains in the ICU. Patient underwent neuro evaluation today. Brain CT was done revealing no acute bleed or mass effect. Mi ld age-appropriate senescent changes. Marked calcification of basal artery and significant stenosis cannot be excluded. Mild to moderate fluid in the mastoid air cells bilaterally. BUN 46 creatinine 2.12. Continues on normal saline at 75 mls/hr. Continues on IV cefepime. 10/25/2024 Patient remains in the ICU with multiple consultations following. Patient continues to be encephalopathic with neurology following. Orthopedics to reevaluate the upper extremity weakness and also vascular surgery was consulted as there is concerns of occlusive disease of the left lower extremity with discoloration of the toes. Patient continues on antibiotics and continues to require 2 L of oxygen. Patient is maintained on dysphagia ground diet and strongly recommend aspiration precautions and supervision with meals along with head of the bed elevated 30 to 45 degrees at all times. Patient is currently af ebrile with no reports of chest pain or shortness of breath. 1 dose of IV Lasix was given today. 10/26/2024 Patient remains in the ICU. Continues to be confused and more lethargic today. Neurology following and felt this was encephalopathy. He is not using this right arm and he does have pain when touching that arm. It is edematous.Vascular evalated the patient for the left diabetic foot wounds which have dry gangrene and did not feel there was ischemia to the leg. He remains on 2L of oxygen via nasal cannula. Labs today hemoglobin 7.3, BUN 51, creatinine 2.66. Remains on IV cefepime which can also cause confusion. 10/27/2024 Patient evaluated in follow-up in the intensive care unit. He is currently sitting up in the chair family at the bedside. He is more awake alert and oriented he is able to state his name and birthday. He does continue to have significant right upper extremity weakness and also mild right lower extremity weakness. This was discussed with neurology and as his mentation has improved brain and cervical neck MRI are both ordered for tomorrow. His creatinine today is 3.0. He has been taken off of the normal saline and also remains off diuretics. Patient was transition to IV ertapenem taken off of the cefepime at this time. Chest x-ray shows no change in the left lung opacification and probable small pleural effusion. Development of a small right pleural effusion. 10/28/2024 Patient is seen in the ICU with multiple consultations following lethargic although arousable awaiting a transfer out of the ICU once a bed on 3 S. becomes available. Patient is awake although fatigues easily. Patient reports he is eating although not eating much and continues to have weakness. Recommend PT/OT therapy daily. Awaiting cervical neck MRI which has been pending for quite some time. Kidney functions worsening and 3.6 today. Blood pressures are soft and patient was given a dose of Lasix yesterday. Urine output remains marginal and will be monitored closely. Recommend strict intake and output monitoring and documenting. Midodrine being added per nephrology and will follow-up on repeat labs. Patient continues on ertapenem with infectious disease following. Blood sugars have been on the lower side and will adjust insulins and continue with sl iding scale with Accu-Cheks before meals and at bedtime. Patient currently denies chest pain or worsening shortness of breath and is currently maintained on 3 L via nasal cannula and oxygen saturations have been above 94%. 10/29/2024 Patient evaluated today on the medical floor as a movement of the intensive care unit. He is able to sit at the edge of the bed today and will continue to work with PT OT daily. He will need subacute rehab on discharge. He is still awaiting a brain and cervical neck MRI unsure if he can have an MRI due to the surgical plates in his neck discussed this with nursing. Also discussed with orthopedics that he is unable to get contrast due to the renal dysfunction and per Dr. Foss group the MRI needs to be with contrast and we will hold off on the lumbar MRI with and without contrast at this time. Did undergo barium swallow and is on pured diet with nectar thick liquids. He remains off of the IV cefepime at this time and currently on IV ertapenem. He remains on IV Lasix daily. 10/30/2024 Patient evaluated in follow-up on the medical floor. He has been moved out of the the intensive care unit. He is sitting up in the chair. He continues with significant right-sided weakness. Underwent brain MRI with no evidence of an acute stroke at this time. Follow-up with orthopedics that he is unable to get this lumbar MRI with and without contrast. Creatinine up to 4.46 today. He is on IV Lasix daily. 10/31/2024 Patient is seen in follow-up today currently sitting up in the chair and has worked with physical therapy reports to being extremely weak. Kidney functions continue to worsen and nephrology following closely and is continued on IV Lasix daily. Patient is making urine although attempted trial void yesterday and retained over 800 and Blake catheter was placed again. Will add Flomax and monitor intake and output closely. Discussing renal replacement daily although holding off today. Will follow-up with repeat labs. Patient denies worsening shortness of breath and reports is improving daily. Patient reports is tolera ting diet with no reported nausea or vomiting. Review of systems: Constitutional: reports of fatigue, no fever, or chills Cardiovascular: No reports of chest pain or palpitations Respiratory: No reports of worsening shortness of breath reports continued weak cough GI: No reports of nausea, vomiting, or diarrhea, : No reports of dysuria or retention Neurovascular: reports of generalized weakness and continued swelling of upper and lower extremities that is slightly improved All medications have been reviewed Physical exam: Gen: This is a 64-year-old male who is maintained on 3 L nasal cannula., well- developed, elderly appearing, ill-appearing, appears older than stated age, more awake today sitting up in the chair with family at the bedside HEENT: Head is atraumatic, normocephalic. Pupils equal, round. Sclerae is anicteric. NECK: Supple. No JVD. No lymphadenopathy. No thyromegaly. LUNGS: Diminished breath sounds bilaterally with some bronchial congestion and coarse scattered rhonchi. No intercostal retractions. HEART: S1, S2 are muffled ABDOMEN: Soft. Somewhat taut, positive bowel sounds are present. No masses. No tenderness. Significant scrotal edema noted, minimally improved EXTREMITIES: Bilateral upper and lower extremity edema noted. No calf tenderness. Generalized upper and lower extremity edema along with scrotal swelling noted Right upper extremity weakness. NEUROLOGICAL: Patient is awake, alert and oriented x 2, diffusely weak Assessment: -Chronic alcohol abuse with acute alcohol withdrawal syndrome; Thiamine and protonix. No longer going through acute withdrawals. -Altered mental status acute metabolic and septic encephalopathy. Brain CT revea ls no acute stroke. Patient continues to have right upper and lower extremity weakness. Unable to officially rule out stroke. -Acute hypoxic respiratory failure was intubated following knee surgery on 10/10 and successfully extubated on 10/15/24. re-intubated on 10/18/2024 and now extubated on 10/22/24. Status post bronchoscopy on 10/18. -Congestive heart failure with an EF of 45%, diastolic dysfunction -Paroxysmal atrial fibrillation transitioned to oral amiodarone Currently on subq heparin. Was taken off IV heparin due to decreased hemoglobin -Acute blood loss anemia requiring transfusion -Right sided pleural effusion status post right sided thoracentesis with 400 mL off. -Oral thrush -Rhabdomyolysis secondary to immobility due to fall. Improving with IV hydration. We will continue to monitor strict STERLING's, daily weights, renal function electrolytes -Acute kidney injury secondary to ATN due to to septic shock and rhabdomyolysis. Was initially improving and now with worsening renal function, nephrology following with no immediate plans for renal replacement although has been discussing the possible need for is kidney functions continue to worsen. Patient is making good urine output although was retaining and did require Blake catheter to be replaced. Will add Flomax -Relative adrenal insufficiency. On IV hydrocortisone. -Transaminitis. Improving. -Streptococcus group A bacteremia. Currently on ertapenem per ID recommendation; continue to monitor CBC, CRP and procalcitonin. Possibly secondary to right knee infection -Right knee pain with swelling, status post aspiration along with arthroscopic lavage, culture showing strep a with septic arthritis -Hyponatremia, likely hypovolemic; resolved. -Episode of hypernatremia treated with D5W, sodium normalized. This was due to free water deficit. 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 -History of coronary artery disease with previous catheterization and stent placement. -Hypertension; currently not on any antihypertensive medication. -Sepsis, present on admission possibly secondary to right knee arthritis with bacteremia GI prophylaxis DVT prophylaxis No code Plan: status post arthroscopy with lavage of the right knee and final cultures showing Strep A. Currently on ertapenem per ID recommendations and cefepime has been discontinued. Repeat blood cultures thus far are negative and will continue on IV antibiotics with ID following Sputum culture showing Enterobacter patient is status post bronchoscopy sputum cultures are now negative Speech therapy has been reconsulted post extubation and is maintained on a dysphagia ground diet and strongly recommend aspiration precautions with supervision with meals and head of the bed elevated 30 to 45 degrees at all times Blood sugars variable and have been steadily increasing and will adjust insulins including increasing long-acting slightly. Continue with Accu-Cheks before meals and at bedtime and sliding scale Follow-up on repeat labs and monitor kidney functions and electrolytes closely. Nephrology following closely discussing possible renal replacement and recommend monitoring urine output closely Brain/cervical neck MRI without contrast has been ordered. Orthopedics did recommend lumbar spine MRI with and without contrast although patients renal function now with creatinine of 4.46 he is unable to get oral contrast at this time. Physical therapy and occupational therapy have been re-consulted. And recommend evaluating daily as patient is significantly weak and has had prolonged hospitalization. Patient requesting the [facility] [place] on discharge when medically stable. Repeat blood work in the AM Overall prognosis remains guarded at this time The impression and plan of care has been dictated by Mercy Gilmore, Nurse Practitioner as directed. Dr. Randall MD I have performed a history and examination and MDM of this patient, discussed the same with the dictator, and agree with the dictator's assessment and plan as written ,documented as a scribe. Based on total visit time, I have performed more than 50% of the visit. Objective - Vital Signs Vital signs: Vital Signs Temp 97.9 F 10/30/24 20:00 Pulse 74 10/31/24 08:43 Resp 16 10/31/24 04:00 BP 110/60 10/31/24 04:00 Pulse Ox 97 10/31/24 04:00 FiO2 4 10/28/24 04:00 Intake & Output 10/30/24 10/31/24 10/31/24 18:59 06:59 18:59 Intake Total 118 Output Total 1650 Balance -1532 Weight 92 kg Intake: Oral 118 Output: Urine 1650 Other: Voiding Method Indwelling Catheter Indwelling Catheter ABP, PAP, CO, CI - Last Documented Arterial Blood Pressure 128/42 - Labs CBC & Chem 7: 10/31/24 07:40 10/31/24 07:40 Labs: Abnormal Lab Results - Last 24 Hours (Table) 10/30/24 10/30/24 10/30/24 Range/Units 12:17 12:30 12:46 RBC (4.30-5.90) m/uL Hgb (13.0-17.5) gm/dL Hct (39.0-53.0) % MCV (80.0-100.0) fL Macrocytosis Chloride (98-107) mmol/L Carbon Dioxide (22-30) mmol/L BUN (9-20) mg/dL Creatinine (0.66-1.25) mg/dL Glucose (74-99) mg/dL POC Glucose (mg/dL) 61 L 56 L 68 L (70-110) mg/dL 10/30/24 10/30/24 10/30/24 Range/Units 13:26 17:00 20:18 RBC (4.30-5.90) m/uL Hgb (13.0-17.5) gm/dL Hct (39.0-53.0) % MCV (80.0-100.0) fL Macrocytosis Chloride (98-107) mmol/L Carbon Dioxide (22-30) mmol/L BUN (9-20) mg/dL Creatinine (0.66-1.25) mg/dL Glucose (74-99) mg/dL POC Glucose (mg/dL) 166 H 172 H 227 H (70-110) mg/dL 10/31/24 10/31/24 10/31/24 Range/Units 06:20 07:40 07:40 RBC 2.20 L (4.30-5.90) m/uL Hgb 7.5 L (13.0-17.5) gm/dL Hct 23.9 L (39.0-53.0) % MCV 108.7 H (80.0-100.0) fL Macrocytosis Marked A Chloride 109 H (98-107) mmol/L Carbon Dioxide 21 L (22-30) mmol/L BUN 60 H (9-20) mg/dL Creatinine 4.87 H (0.66-1.25) mg/dL Glucose 207 H (74-99) mg/dL POC Glucose (mg/dL) 274 H (70-110) mg/dL Microbiology - Last 24 Hours (Table) 10/29/24 00:05 Urine Culture - Preliminary Urine,Voided Yeast species
[2024-10-31 20:06] LABS: Glucose,Whole Blood 216 mg/dL (70-110)
[2024-10-31] MEDS: INSULIN DETEMIR (LEVEMIR) 100 UNIT/ML SYR SQ SCH (21:00)
[2024-11-01 06:17] LABS: Glucose,Whole Blood 126 mg/dL (70-110)
[2024-11-01 10:55] LABS: African American GFR (CKD) 14 (>60 ml/min/1.73 sqM); Anion Gap 4 mmol/L; Blood Urea Nitrogen 60 mg/dL (9-20); Calcium 8.4 mg/dL (8.4-10.2); Carbon Dioxide 21 mmol/L (22-30); Chloride 111 mmol/L (98-107); Glucose 114 mg/dL (74-99); Non-African American GFR(CKD) 12 (>60 ml/min/1.73 sqM); Sodium 136 mmol/L (137-145)
[2024-11-01 11:33] LABS: Glucose,Whole Blood 131 mg/dL (70-110)
--- NOTE | 2024-11-01 14:23 | P.PN ---
Subjective Progress Note Date: 11/01/24 Progress Note Date: 10/31/24 64-year-old male who is being seen in the ICU due to hypovolemic shock and rhabdomyolysis. He is a poor historian due to altered mental status and un responsiveness. All history is obtained from the chart. He initially presented to the emergency department after being found facedown on the ground with a contusion to his forehead and abrasions to his knee and left toes. She stated that he had been having nausea and vomiting for a day prior to being found down. He was noted to have diarrhea as well. Patient is a daily drinker and consumes about a fifth per day according to the notes he has not drank for the 2 days prior to this admission. He also has a history of type 1 diabetes mellitus. Initial EKG showed sinus tachycardia. Head/cervical spine CT showed no acute intracranial process and no acute fracture or traumatic subluxation of the cervical spine. Initial chest x-ray showed right middle lobe scarring/atelectasis, no acute pulmonary process. He had received 4 L of normal saline. Initial labs showed CK level of 18,113, WBCs 10.7, hemoglobin 12.5, sodium 126, creatinine 3.18 lactic acid 6.9, AST 401, ALT 65. Preliminary blood culture showed gram-positive cocci and patient was started on vancomycin. 24-hour interval change 10/12/2024 -- Patient is evaluated in the ICU. He remains intubated on mechanical ventilation - ABG shows pH 7.42, pCO2 38, pO2 74. - He is maintained on vasopressin 0.02 units/min, normal saline at 20 cc/h, IV hydrocortisone 50 mg every 6 hours, and Kefzol day 5. Labs are reviewed WBCs 17.4, hemoglobin 8.2, hematocrit 25.2, platelets 53, sodium 142, potassium 3.7, chloride 116, CO2 23, BUN 39, creatinine 1.18, glucose 258. Ionized calcium 4.4. Magnesium 1.8. Today's chest x-ray is unchanged. Wound culture gram stain of the right knee preliminary report shows rare gram positive cocci. 10/13/2024 Patient is seen and evaluated in ICU at bedside; remains on the mechanical ventilator. Discussed with nursing staff. Concerns about elevated blood sugars; patient was placed on home dose of Lantus which did not help much - Blood gases show pO2 72, pCO2 41, and pH is 7.42. - The patient is on propofol at 35 mcg/kg/min, saline at 20 cc an hour, and vital high-protein at 60, with goal of 70. Yesterday, he had a brief spontane ous breathing trial, and he did poorly. Today he will again have a spontaneous breathing trial, of pressure support of 5 and CPAP of 5. He continues on Ancef. White count 18.8, hemoglobin 8.2, hematocrit 25.8, platelet count 78,000. Sodium 144, potassium 4.1, chlorides 117, CO2 26, BUN 47, creatinine 1.18. Glucose is 340. Albumin is 2.1. Previous blood cultures from October 06 show group A streptococci. Chest x-ray shows bibasilar infiltrates. -- For hyperglycemia I will increase dose of Lantus and add insulin lispro every 4 hours; continue with current sliding scale 10/14/2024 Patient is seen in follow-up today continues on Precedex and attempting to wean maintained on mechanical ventilation with an FiO2 of 50% PEEP is 5. Per nursing staff attempting sedation holiday although did not go well yesterday. Patient is maintained on antibiotics with infectious disease following and patient is status post right knee aspiration with preliminary culture showing strep a with positive blood cultures. Patient continues with significant swelling especially the scrotal area maintained on IV Lasix and will continue. No discussion of PEG and trach as of yet and patient remains full code. Prognosis is guarded. 10/15/2024 Patient is seen this morning continues to be in the ICU currently working on weaning FiO2 and undergoing sedation holiday. Patient is eye tracking and foll owing commands and per pulmonary occupational ther working on extubation today. Will await official report and monitor closely. Patient is continued on antibiotics with infectious disease following. 10/16/2024 Patient is seen in follow-up this morning extubated successfully currently maintained on 6 L high flow nasal cannula. Patient is awake and responding appropriately to questions and commands. Patient is extremely lethargic at times and significantly weak with significant edema noted. Sodium is elevated at 150 and is continued on D5 and water. Blood sugars have been elevated and will adjust insulins accordingly. Patient swallow eval performed and failed awaiting reevaluation with speech. Continue n.p.o. for now. White count remains elevated patient is maintained on antibiotics with infectious disease following. Awaiting repeat cultures. Procalcitonin 1.06. Questions and rahat rns were answered to the best of my ability with son at the bedside. 10/17/2024 Patient is evaluated today in follow up in the ICU. He was extubated yesterday. Continues on oxygen support on 100% BiPAP at this time. Cultures from the right knee arthroscopy reveals Strep A. Chest xray today reveals no change to the bibasilar opacities. Chest ultrasound reveals right pleural effusion pocket size 6.0 cm and left pleural effusion pocket size of 4.9 cm. Both sides marked for possible thoracentesis. Labs today reveal white blood cell count of 11.8, hgb 7.5, sodium 146, potassium 3.4, BUN 43, creatinine 1.06. Blood glucose 200s. Continues on IV amiodarone, IV cefepime, IV vancomycin. Patient is in normal sinus rhythm currently heart rate in the 80s. 10/18/2024 Patient evaluated today in follow up in the ICU. He is awake alert oriented continues on BiPAP. He is status post right sided thoracentesis with 400 mL off. Chest xray today reveals stable bilateral lower lobe infiltrate and small pl eural effusion. White blood cell count today 10.4. Continues on IV vancomycin and IV cefepime. Remains on IV amiodarone. on IV heparin. Patient remains NPO at this time, speech therapy to follow up today to reassess. 10/19/2024 Patient remains in the ICU. He is on the mechanical ventilator, FiO2 of 50%. Chest x-ray today shows left lower lobe pneumonia and/or atelectasis and pleural effusion. Elian in the left lung base is obscuring the left heart border and the hemidiaphragm has decreased in the interval. White blood cell count today is 8.4, hemoglobin 7.1, sodium 144, BUN of 40, creatinine of 1.43. His viral panel is negative for all viruses checked. 10/20/2024 Patient remains the intensive care unit he is currently on mechanical ventilator with an FiO2 of 50%. He is awake and alert and responding to commands. His chest x-ray reveals continued acute coronary cardiopulmonary disease involving the retrocardiac region with no significant interval change. Repeat sputum reveals Enterobacter he continues on IV cefepime at this time. Hemoglobin level today is 6.7 he will receive 1 unit of packed red blood cells. His creatinine is up to 1.51 today. Continues on oral amiodarone for the atrial fibrillation was taken off of anticoagulation secondary to the decreased hemoglobin. Patient is sedated with propofol at this time. He is also receiving IV Lasix daily prognosis remains guarded. 10/21/2024 Patient remains in the intensive care unit. Remains on the mechanical neville tilator. He is currently sedated with propofol. He is alert and following commands. Chest xray unchanged continues to show pneumonia with sputum culture showing enterobacter. He remains on IV cefepime. Hemoglobin better today at 7.8. BUN 42 creatinine 1.67. 10/22/2024 Patient is evaluated today in the intensive care unit. Patient was extubated today. He is awake alert and oriented. He is complaining of some back pain. Has IV dilaudid on board. Chest xray today reveals no evidence of pleural effusion, focal consolidation, or pneumothorax. He remains edematous. Creatinine 1.87 today. On IV lasix which has been increased to BID by nephrology. 3L of urine output in the last 24 hours. 10/23/2024 Patient evaluated today in follow up in the ICU. Currently on 2L of oxygen via nasal cannula with saturations of 99%. Remains on IV cefepime. Chest xray today reveals left lung airspace opacity. Creatinine up to 2.1 today IV lasix has been discontinued. Patient has been placed on normal saline at 75 mls/hr. Speech therapy re consulted for swallow evaluation post extubation. 10/24/2024 Patient evaluated today in follow up remains in the ICU. Patient underwent neuro evaluation today. Brain CT was done revealing no acute bleed or mass effect. Mild age-appropriate senescent changes. Marked calcification of basal artery and significant stenosis cannot be excluded. Mild to moderate fluid in the mastoid air cells bilaterally. BUN 46 creatinine 2.12. Continues on normal saline at 75 mls/hr. Continues on IV cefepime. 10/25/2024 Patient remains in the ICU with multiple consultations following. Patient continues to be encephalopathic with neurology following. Orthopedics to reevaluate the upper extremity weakness and also vascular surgery was consulted as there is concerns of occlusive disease of the left lower extremity with discoloration of the toes. Patient continues on antibiotics and continues to require 2 L of oxygen. Patient is maintained on dysphagia ground diet and strongly recommend aspiration precautions and supervision with meals along with head of the bed elevated 30 to 45 degrees at all times. Patient is currently afebrile with no reports of chest pain or shortness of breath. 1 dose of IV Lasix was given today. 10/26/2024 Patient remains in the ICU. Continues to be confused and more lethargic today. Neurology following and felt this was encephalopathy. He is not using this right arm and he does have pain when touching that arm. It is edematous.Vascular e valated the patient for the left diabetic foot wounds which have dry gangrene and did not feel there was ischemia to the leg. He remains on 2L of oxygen via nasal cannula. Labs today hemoglobin 7.3, BUN 51, creatinine 2.66. Remains on IV cefepime which can also cause confusion. 10/27/2024 Patient evaluated in follow-up in the intensive care unit. He is currently sitting up in the chair family at the bedside. He is more awake alert and oriented he is able to state his name and birthday. He does continue to have significant right upper extremity weakness and also mild right lower extremity weakness. This was discussed with neurology and as his mentation has improved brain and cervical neck MRI are both ordered for tomorrow. His creatinine today is 3.0. He has been taken off of the normal saline and also remains off diuretics. Patient was transition to IV ertapenem taken off of the cefepime at this time. Chest x-ray shows no change in the left lung opacification and probable small pleural effusion. Development of a small right pleural effusion. 10/28/2024 Patient is seen in the ICU with multiple consultations following lethargic although arousable awaiting a transfer out of the ICU once a bed on 3 S. becomes available. Patient is awake although fatigues easily. Patient reports he is eating although not eating much and continues to have weakness. Recommend PT/OT therapy daily. Awaiting cervical neck MRI which has been pending for quite some time. Kidney functions worsening and 3.6 today. Blood pressures are soft and patient was given a dose of Lasix yesterday. Urine output remains marginal and will be monitored closely. Recommend strict intake and output monitoring and documenting. Midodrine being added per nephrology and will follow-up on repeat labs. Patient continues on ertapenem with infectious disease following. Blood sugars have been on the lower side and will adjust insulins and continue with sliding scale with Accu-Cheks before meals and at bedtime. Patient currently denies chest pain or worsening shortness of breath and is currently maintained on 3 L via nasal cannula and oxygen saturations have been above 94%. 10/29/2024 Patient evaluated today on the medical floor as a movement of the intensive care unit. He is able to sit at the edge of the bed today and will continue to work with PT OT daily. He will need subacute rehab on discharge. He is still awaiting a brain and cervical neck MRI unsure if he can have an MRI due to the surgical plates in his neck discussed this with nursing. Also discussed with orthopedics that he is unable to get contrast due to the renal dysfunction and per Dr. Foss group the MRI needs to be with contrast and we will hold off on the lumbar MRI with and without contrast at this time. Did undergo barium swallow and is on pured diet with nectar thick liquids. He remains off of the IV cefepime at this time and currently on IV ertapenem. He remains on IV Lasix daily. 10/30/2024 Patient evaluated in follow-up on the medical floor. He has been moved out of the the intensive care unit. He is sitting up in the chair. He continues with significant right-sided weakness. Underwent brain MRI with no evidence of an acute stroke at this time. Follow-up with orthopedics that he is unable to get this lumbar MRI with and without contrast. Creatinine up to 4.46 today. He is on IV Lasix daily. 10/31/2024 Patient is seen in follow-up today currently sitting up in the chair and has worked with physical therapy reports to being extremely weak. Kidney functions continue to worsen and nephrology following closely and is continued on IV Lasix daily. Patient is making urine although attempted trial void yesterday and retained over 800 and Blake catheter was placed again. Will add Flomax and monitor intake and output closely. Discussing renal replacement daily although holding off today. Will follow-up with repeat labs. Patient denies worsening shortness of breath and reports is improving daily. Patient reports is tolerating diet with no reported nausea or vomiting. 11/01/2024 Patient evaluated in follow up today sitting up in the chair. Continues with significant weakness and more pronounced on the right. He continues on IV lasix daily. Remains edematous. BUN up to 60 and creatinine of 4.93 today. He has had about 1.6 L of fluid off in the last 24 hours. He continues on IV ertapenem. Review of systems: Constitutional: reports of fatigue, no fever, or chills Cardiovascular: No reports of chest pain or palpitations Respiratory: No reports of worsening shortness of breath reports continued weak cough GI: No reports of nausea, vomiting, or diarrhea, : No reports of dysuria or retention Neurovascular: reports of generalized weakness and continued swelling of upper and lower extremities that is slightly improved All medications have been reviewed Physical exam: Gen: This is a 64-year-old male who is maintained on 3 L nasal cannula., well-developed, elderly appearing, ill-appearing, appears older than stated age, HEENT: Head is atraumatic, normocephalic. Pupils equal, round. Sclerae is anicteric. NECK: Supple. No JVD. No lymphadenopathy. No thyromegaly. LUNGS: Diminished breath sounds bilaterally with some bronchial congestion and coarse scattered rhonchi. No intercostal retractions. HEART: S1, S2 are muffled ABDOMEN: Soft. Somewhat taut, positive bowel sounds are present. No masses. No tenderness. Significant scrotal edema noted, minimally improved EXTREMITIES: Bilateral upper and lower extremity edema noted. No calf tender ness. Generalized upper and lower extremity edema along with scrotal swelling noted Right upper extremity weakness. NEUROLOGICAL: Patient is awake, alert and oriented x 2, diffusely weak Assessment: -Chronic alcohol abuse with acute alcohol withdrawal syndrome; Thiamine and protonix. No longer going through acute withdrawals. -Altered mental status acute metabolic and septic encephalopathy. Brain CT reveals no acute stroke. Patient continues to have right upper and lower extremity weakness. Unable to officially rule out stroke. -Acute hypoxic respiratory failure was intubated following knee surgery on 10/10 and successfully extubated on 10/15/24. re-intubated on 10/18/2024 and now e xtubated on 10/22/24. Status post bronchoscopy on 10/18. -Congestive heart failure with an EF of 45%, diastolic dysfunction -Paroxysmal atrial fibrillation transitioned to oral amiodarone Currently on subq heparin. Was taken off IV heparin due to decreased hemoglobin -Acute blood loss anemia requiring transfusion -Right sided pleural effusion status post right sided thoracentesis with 400 mL off. -Oral thrush -Rhabdomyolysis secondary to immobility due to fall. Improving with IV hydrat ion. We will continue to monitor strict STERLING's, daily weights, renal function electrolytes -Acute kidney injury secondary to ATN due to to septic shock and rhabdomyolysis. Was initially improving and now with worsening renal function, nephrology following with no immediate plans for renal replacement although has been discussing the possible need for is kidney functions continue to worsen. Patie nt is making good urine output although was retaining and did require Blake catheter to be replaced. Will add Flomax -Relative adrenal insufficiency. On IV hydrocortisone. -Transaminitis. Improving. -Streptococcus group A bacteremia. Currently on ertapenem per ID recommendation; continue to monitor CBC, CRP and procalcitonin. Possibly secondary to right knee infection -Right knee pain with swelling, status post aspiration along with arthroscopic lavage, culture showing strep a with septic arthritis -Hyponatremia, likely hypovolemic; resolved. -Episode of hypernatremia treated with D5W, sodium normalized. This was due to free water deficit. 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 -History of coronary artery disease with previous catheterization and stent placement. -Hypertension; currently not on any antihypertensive medication. -Sepsis, present on admission possibly secondary to right knee arthritis with bacteremia GI prophylaxis DVT prophylaxis No code Plan: status post arthroscopy with lavage of the right knee and final cultures showing Strep A. Currently on ertapenem per ID recommendations and cefepime has been dis continued. Repeat blood cultures thus far are negative and will continue on IV antibiotics with ID following Sputum culture showing Enterobacter patient is status post bronchoscopy sputum cultures are now negative Speech therapy has been reconsulted post extubation and is maintained on a dysphagia ground diet and strongly recommend aspiration precautions with supervision with meals and head of the bed elevated 30 to 45 degrees at all times Blood sugars variable and have been steadily increasing and will adjust insulins including increasing long-acting slightly. Continue with Accu-Cheks before meals and at bedtime and sliding scale Follow-up on repeat labs and monitor kidney functions and electrolytes closely. Nephrology following closely discussing possible renal replacement and recommend monitoring urine output closely Orthopedics did recommend lumbar spine MRI with and without contrast although patients renal function now with creatinine of 4.46 he is unable to get oral contrast at this time. Physical therapy and occupational therapy have been re-consulted. And recommend evaluating daily as patient is significantly weak and has had prolonged hospitalization. Patient requesting [place] on discharge when medically stable. Repeat blood work in the AM Overall prognosis remains guarded at this time The impression and plan of care has been dictated by Sharlene Pendleton, Nurse Practitioner as directed. Dr. Randall MD I have performed a history and examination and MDM of this patient, discussed the same with the dictator, and agree with the dictator's assessment and plan as written ,documented as a scribe. Based on total visit time, I have performed more than 50% of the visit. Objective - Vital Signs Vital signs: Vital Signs Temp 98.2 F 11/01/24 04:10 Pulse 80 11/01/24 09:38 Resp 16 11/01/24 04:10 BP 114/64 11/01/24 04:10 Pulse Ox 94 L 11/01/24 04:10 FiO2 4 10/28/24 04:00 Intake & Output 10/31/24 11/01/24 11/01/24 18:59 06:59 18:59 Intake Total 660 540 240 Output Total 1500 425 Balance -840 115 240 Weight 92 kg 89.5 kg Intake: Oral 660 540 240 Output: Urine 1500 425 Other: Voiding Method Indwelling Catheter Indwelling Catheter # Bowel Movements 1 ABP, PAP, CO, CI - Last Documented Arterial Blood Pressure 128/42 - Labs CBC & Chem 7: 10/31/24 07:40 11/01/24 10:20 Labs: Abnormal Lab Results - Last 24 Hours (Table) 10/31/24 10/31/24 10/31/24 Range/Units 11:57 16:56 20:05 POC Glucose (mg/dL) 313 H 319 H 216 H (70-110) mg/dL 11/01/24 Range/Units 06:15 POC Glucose (mg/dL) 126 H (70-110) mg/dL Microbiology - Last 24 Hours (Table) 10/29/24 00:05 Urine Culture - Final Urine,Voided [place] albicans Assessment and Plan Time with Patient: Less than 30
--- NOTE | 2024-11-01 15:01 | P.PN ---
Subjective Progress Note Date: 11/01/24 Principal diagnosis: Reason for follow-up is Streptococcus agalactiae bacteremia Patient is a 64-year-old male past medical history significant for diabetes mellitus hypertension hyperlipidemia AR osteoarthritis coronary disease patient was brought into the hospital after apparently the patient was found to be facedown on the ground with contusion to his forehead and abrasion to his knee and some bloody toes, patient did have a fever subsequently blood cultures came back positive with Streptococcus agalactiae prompting this consultation. Patient noticed to have swelling of the right knee aspirate was purulent subsequently the patient did have a right knee washout completed by orthopedics on 10/10/2024. On today's evaluation that is 11/01/2024, the patient continues to be afebrile, the patient is on 3 L current oxygen and breathing comfortably, the Pt denies having any chest pain or cough, the patient denies having any abdominal pain no vomiting or any diarrhea has been reported by the nursing staff. Patient did have a creatinine 4.93 white count was 8.7 as of yesterday Objective - Vital Signs Vital signs: Vital Signs Temp 97.9 F 11/01/24 12:10 Pulse 76 11/01/24 12:45 Resp 18 11/01/24 12:10 BP 115/64 11/01/24 12:10 Pulse Ox 91 L 11/01/24 12:10 FiO2 4 10/28/24 04:00 Intake & Output 10/31/24 11/01/24 11/01/24 18:59 06:59 18:59 Intake Total 660 540 462 Output Total 1500 425 Balance -840 115 462 Weight 92 kg 89.5 kg Intake: Oral 660 540 462 Output: Urine 1500 425 Other: Voiding Method Indwelling Catheter Indwelling Catheter Indwelling Catheter # Bowel Movements 1 ABP, PAP, CO, CI - Last Documented Arterial Blood Pressure 128/42 - Exam GENERAL DESCRIPTION: Middle-age male lying in bed in no distress RESPIRATORY SYSTEM: Unlabored breathing , coarse breath sounds bilaterally HEART: S1 S2 regular rate and rhythm , ABDOMEN: Soft , no tenderness EXTREMITIES: Swelling to the lower extremity and right knee but no redness - Labs CBC & Chem 7: 10/31/24 07:40 11/01/24 10:20 Labs: Abnormal Lab Results - Last 24 Hours (Table) 10/31/24 10/31/24 11/01/24 Range/Units 16:56 20:05 06:15 Sodium (137-145) mmol/L Chloride (98-107) mmol/L Carbon Dioxide (22-30) mmol/L BUN (9-20) mg/dL Creatinine (0.66-1.25) mg/dL Glucose (74-99) mg/dL POC Glucose (mg/dL) 319 H 216 H 126 H (70-110) mg/dL 11/01/24 11/01/24 Range/Units 10:20 11:29 Sodium 136 L (137-145) mmol/L Chloride 111 H (98-107) mmol/L Carbon Dioxide 21 L (22-30) mmol/L BUN 60 H (9-20) mg/dL Creatinine 4.93 H (0.66-1.25) mg/dL Glucose 114 H (74-99) mg/dL POC Glucose (mg/dL) 131 H (70-110) mg/dL Microbiology - Last 24 Hours (Table) 10/29/24 00:05 Urine Culture - Final Urine,Voided [place] albicans Assessment and Plan (1) Sepsis Current Visit: Yes Status: Acute Code(s): A41.9 - SEPSIS, UNSPECIFIED OR GANISM SNOMED Code(s): 33904013 (2) Streptococcal bacteremia Current Visit: Yes Status: Acute Code(s): R78.81 - BACTEREMIA; B95.5 - UNSP STREPTOCOCCUS THE CAUSE OF DISEASES [facility] SNOMED Code(s): 532781836022 Plan: 1patient presented to the hospital with sepsis in this patient who did have fever tachycardia elevated white count and now with evidence of streptococcal bacteremia which is usually of skin and soft tissue origin 2-patient noticed to have right knee effusion has been evaluated by orthopedics and is status post aspiration with purulent drainage subsequently did have right knee washout by orthopedic cultures are pending may need further workup including MRI of the spine when stable. Ortho is following the patient closely 3patient right knee fluid culture also came back positive with group A strep 4-patient did have left-sided pneumonia patient required reintubation and also status post bronchoscopy and lavage sputum culture so far negative, initial culture growing Enterobacter that is sensitive to cefepime patient subsequently has been successfully extubated 5the patient remains to be afebrile white count has been normal, 6- patient is currently being treated ertapenem 500 mg daily along with Diflucan, Blake change discussed with the nursing staff apparently has been recently replaced because of retention Dictation was produced using [employer] dictation software. please excuse any grammatical, word or spelling errors. Time with Patient: Less than 30
--- NOTE | 2024-11-01 15:22 | P.PN ---
Subjective Progress Note Date: 11/01/24 Patient is a 64-year-old male who is being seen in the ICU due to hypovolemic shock and rhabdomyolysis. He is a poor historian due to altered mental status and unresponsiveness. All history is obtained from the chart. He initially presented to the emergency department after being found facedown on the ground with a contusion to his forehead and abrasions to his knee and left toes. She stated that he had been having nausea and vomiting for a day prior to being found down. He was noted to have diarrhea as well. Patient is a daily drinker and consumes about a fifth per day according to the notes he has not drank for the 2 days prior to this admission. He also has a history of type 1 diabetes m ellitus. Initial EKG showed sinus tachycardia. Head/cervical spine CT showed no acute intracranial process and no acute fracture or traumatic subluxation of the cervical spine. Initial chest x-ray showed right middle lobe scarring/atelectasis, no acute pulmonary process. He had received 4 L of normal saline. Initial labs showed CK level of 18,113, WBCs 10.7, hemoglobin 12.5, sodium 126, creatinine 3.18 lactic acid 6.9, AST 401, ALT 65. Preliminary blood culture showed gram-positive cocci and patient was started on vancomycin. On 10/20/2024, the patient remains sedated on propofol. Arousable and moving all 4 extremities. He is status post reintubation on 10/18/2024 and is status post bronchoscopy x 2 with evacuation of mucous plugs from his left lower lobe. The patient has Enterobacter erogenous in his sputum and the patient remains on IV cefepime. This morning, he remains on assist-control mode with rate of 14, tidal volume of 500, FiO2 of 50% with a PEEP of 10. Blood gas shows significant improvement oxygenation and the pO2 is up to 153 and a pH is at 7.4 with a pCO2 of 41. The patient remains on low-dose norepinephrine at 0.04 mcg/kg/min. He remains on IV heparin for paroxysmal A-fib. Hemoglobin dropped down to 6.7 and the patient is going to receive a unit of packed RBC. Creatinine is up to 1.5. He remains on vital high-protein at rate of 40 cc an hour. Fluid balance is +1.2 L over the past 24 hours. He is afebrile. Patient was seen today on 10/21/24, patient remains in the ICU, patient is on mechanical ventilation with assist-control rate of 14 tidal volume 500 FiO2 40% and PEEP of 6 ABG showed a pO2 of 27 pCO2 34 pH of 7.47. No changes were made in vent settings. Patient remains on propofol at 40 mcg/kg/min, received a unit of packed RBCs yesterday for low hemoglobin. Remains on vital HP patient is receiving cefepime for Enterobacter around [place] and his sputum. Patient had strep a in the right knee joint patient is covered with cefepime remains on Lasix 40 mg IV push daily his initial presentation to the hospital was when he was found facedown on the ground with a contusion on his forehead and abrasion on his left knee as well as left toes. Patient is known to be a heavy drinker, consumes 1/5/day according to the notes in the chart. Patient is also known to have type 1 diabetes, intubation on 10/10/2024 following his knee surgery patient was extubated on 10/15, however he had to be reintubated on 10/18 bronchoscopy was done for extensive pneumonia involving the left lower lobe and mucous plugs were suctioned. Patient also had another bronchoscopy on 09/22 with improvement in his chest x-ray findings and left lower lobe pneumonia. Sputum cultures have been positive for Enterobacter allergies. Has been on IV cefepime WBC count today 6.3 hemoglobin 7.8 metabolic profile is normal BUN is 42 creatinine 1.67. Chest x-ray continues to show bibasilar airspace disease left lower lobe more so than right lower lobe Patient was eval today and 10/22/2024, patient remains in the ICU, intubated and mechanically ventilated, on assist-control rate of 14 tidal volume 500 FiO2 40% PEEP of 6 ABG showed a pO2 of 93 pCO2 34 pH of 7.50 peak airway pressure is 23 Plateau pressure is 16 continues to have some clear yellow sputum that is easily suctioned will not require bronchoscopy today considering the easily suctioned the mucus secretions. Patient is on propofol at 40 mcg/kg/min vital HP at 40 mL/h IV fluid at KVO patient remains on antibiotics in the form of cefepime, he has Enterococcus in the sputum and he had strep pain from his knee. Leg susi on Lasix 40 mg twice daily chest x-ray is showing slight improvement in his bibasilar pneumonia hence I am not recommending bronchoscopy today I will try to give the patient a trial of weaning if possible. Labs today were reviewed WBC count is 5.8 hemoglobin 7.9 platelets are 306, electrolytes are normal BUN is 43 creatinine 1.85 Patient was seen today on 10/23/2024, remains in the ICU, however the patient was extubated yesterday and so far he seems to be tolerating the extubation well. Patient is on 3 L nasal cannula, he is alert, but extremely slow. And complaining of right upper extremity swelling and pain. Considering the patient had a fall I will recommend x-rays of the right upper extremity and I would recommend ultrasound/venous Doppler of the right upper extremity. Patient continues to have pneumonia based on chest x-ray, left lower lobe is quite concerning patient does not have a very good cough. Hoping he does not require bronchoscopy again. In the meantime he is on cefepime. Patient had worsening of his renal functioning and I discontinued his Lasix today. He is on subcu heparin for DVT prophylax. And I do not believe the patient is quite ready to be discharged out of the ICU yet, I will keep him in the ICU for another day. And follow-up chest x-ray will be done in a.m. His WBC count is 6 hemoglobin 8.2 electrolytes are normal BUN is 46 creatinine 2.19 Seen today on 10/24/2024, patient remains in the ICU, off mechanical ventilation, on2 L nasal cannula with O2 saturation between 94 to 97%. Patient is confused, he is not in any form of respiratory distress.WBC is 5.8 hemoglobin 7.6 electrolytes are normal BUN is 46 creatinine 2.22, slightly improved compared to yesterday after holding his diuretics chest x-ray is showing slight improvement in his pneumonia. However what seems to be quite concerning to me is his mental status patient seems to be confused, and continues to have difficulty moving his right upper extremity workup on the right upper extremity has been negative including x-rays and Doppler. Patient was seen today on 10/25/2024, patient remains in the ICU, mental status is basically about the same, patient remains encephalopathic, continues to have difficulty raising his right upper extremity hence orthopedics was consulted. Chest x-ray continues to show bilateral pneumonia left a bit worse than right, patient is on antibiotics for Enterobacter erogenous noted previously on his sputum. Patient is able to clear his secretions on his own, he does have a vigorous cough, his overall mental status seems to be a bit concerning, neurology was consulted on the patient today yesterday, felt that the patient may have metabolic encephalopathy. In addition to this the patient has some ischemic changes noted in the distal aspect of his left fourth toe and at the base of his big toe, hence I recommended vascular surgery evaluation. He does have good pulses by Doppler on that same foot. Labs today show WBC is 5.4 hemoglobin 7.7 electrolytes are normal BUN is 47 creatinine 2.30 Patient seen today on 10/26/2024, remains in ICU, remains on 4 L nasal cannula mentation is about the same, remains encephalopathic but follows simple instructions, continues to have issues with his right upper extremity patient is on IV fluid at KVO however I increased IV fluid today to 70 cc/h as his renal function seems to be getting a bit worse. And I am recommending that we stop diuretics altogether. Patient remains on cefepime for Enterobacter in his sputum. Chest x-ray continues show bilateral pneumonia minimal improvement noted. But continues to have significant infiltrates specially in the left lower lobe. WBC is 5.3 hemoglobin 7.3 basic metabolic profile is normal BUN is up to 51 creatinine up to 2.66 Patient was seen today on 10/27/2024, remains in the ICU remains on 4 L nasal can nula remains on IV fluid at 75 cc/h his urine output seems to be marginal down to 15/20 cc/h hence I am recommending a low-dose of Lasix 60 mg IV push x 1. Patient is becoming a bit more edematous hoping that he will improve with gentle diuresis. Renal functioning seems to be getting worse over the last few days in spite of holding the Lasix and inspite of hydrating the patient cautiously patient remains on Invanz for his Enterococcus erogenous in the sputum this is being addressed by infectious disease, chest x-ray continues show bilateral infiltrates left more so than right patient also has small bilateral pleural effusions. Lasix was given today and he remains on antibiotics for his un derlying pneumonia. The patient is seen today October 28, 2024 in follow-up in the intensive care u [facility]. He is currently sitting up in bed. Awake. Somewhat slow to respond. He is maintaining good O2 saturation mid 90s on 3 L/min per nasal cannula. He has been afebrile. Hemodynamically stable. Right knee culture was positive for strep A. Previous sputum culture had been positive for enterofactor aerogenes. Follow-up cultures revealed no growth. Pleural fluid cultures revealed no growth. He 2. Potassium 4.9. Bicarb 21. BUN 58. Creatinine 3.68. Glucose 66. He is continued on DuoNeb and elations. Heparin for DVT prophylaxis. Antibiotics in the form of ertapenem. The patient is seen today October 29, 2024 in follow-up on the selective care unit. He was transferred out of the ICU yesterday. He is currently sitting up in bed. Awake and alert. Still somewhat slow to respond. He is maintaining O2 saturations in the 90s on 3 L/min per nasal cannula. He is been afebrile. Hemodynamically stable. He is status post 1 unit of packed red blood cells this admission. Current hemoglobin 8.0. Platelets 332. White count 7.9. Sodium 139. Potassium 4.4. Bicarb 23. BUN 59. Creatinine 4.24. Glucose 78. Urinalysis with moderate bacteria. Culture pending. He remains on ertapenem. Continued on bronchodilators. Remains on IV diuretics. Currently in a negative balance. Heparin for DVT prophylaxis. The patient is seen today October 30, 2024 in follow-up on the selective care unit. He is currently up in a chair at the bedside. Awake and alert in no acute distress. He is maintaining O2 saturations in the 90s on 3 L/min per nasal cannula. No IV fluids. He is continued on antibiotics in the form of ertapenem. Continued on IV diuretics. Heparin for DVT prophylaxis. Urine culture showing yeast species. Pleural fluid cultures revealed no growth. Whit e count 10.4. Hemoglobin 8.0. MCV 106.8. Platelets 374. Sodium 137. Potassium 4.2. Bicarb 20. BUN 62. Creatinine 4.46. Glucose 87. The patient is seen today October 31, 2024 in follow-up on the selective care unit. He is currently sitting up in bed. Awake and alert in no acute distress. He is maintaining O2 saturations in the 90s on 3 L/min per nasal cannula. White count 8.7. Hemoglobin 7.5. Platelets 365. Sodium 138. Potassium 4.2. Bicarb 21. BUN 60. Creatinine 4.87. Glucose 207. He remains on DuoNeb inhalations. Antibiotics in the form of ertapenem. Currently on fluconazole. Remains on IV diuretics. He is making urine. The patient is seen today November 01, 2024 in follow-up on the selective care unit. He is currently sitting up in a chair. Awake and alert in no acute distress. Maintaining O2 saturations in the 90s on 2 L/min per nasal cannula. Sodium 136. Potassium 4.0. Bicarb 21. BUN 60. Creatinine 4.93. Glucose 114. He is continued on ertapenem. Now initiated on Diflucan. Heparin for DVT prophylaxis. He remains on IV Lasix. Making urine. Creatinine continues to rise. May need renal replacement therapy per nephrology. Objective - Vital Signs Vital signs: Vital Signs Temp 97.9 F 11/01/24 12:10 Pulse 76 11/01/24 12:45 Resp 18 11/01/24 12:10 BP 115/64 11/01/24 12:10 Pulse Ox 91 L 11/01/24 12:10 FiO2 4 10/28/24 04:00 Intake & Output 10/31/24 11/01/24 11/01/24 18:59 06:59 18:59 Intake Total 660 540 462 Output Total 1500 425 Balance -840 115 462 Weight 92 kg 89.5 kg Intake: Oral 660 540 462 Output: Urine 1500 425 Other: Voiding Method Indwelling Catheter Indwelling Catheter Indwelling Catheter # Bowel Movements 1 ABP, PAP, CO, CI - Last Documented Arterial Blood Pressure 128/42 - Exam GENERAL EXAM: Alert, 64-year-old male, sitting up in a chair, on 3 L nasal can nula, in no apparent distress. HEAD: Normocephalic. EYES: Normal reaction of pupils, equal size. NOSE: Clear with pink turbinates. THROAT: No erythema or exudates. NECK: No masses, no JVD. CHEST: No chest wall deformity. LUNGS: Equal air entry with bilateral scattered rhonchi. CVS: S1 and S2 normal with no audible murmur, regular rhythm. ABDOMEN: No hepatosplenomegaly, normal bowel sounds, no guarding or rigidity. SPINE: No scoliosis or deformity SKIN: No rashes CENTRAL NERVOUS SYSTEM: No focal deficits, tone is normal in all 4 extremities. EXTREMITIES: Edema of the right upper extremity. There is no peripheral edema. No clubbing, no cyanosis. Peripheral pulses are intact. - Labs CBC & Chem 7: 10/31/24 07:40 11/01/24 10:20 Labs: Abnormal Lab Results - Last 24 Hours (Table) 10/31/24 10/31/24 11/01/24 Range/Units 16:56 20:05 06:15 Sodium (137-145) mmol/L Chloride (98-107) mmol/L Carbon Dioxide (22-30) mmol/L BUN (9-20) mg/dL Creatinine (0.66-1.25) mg/dL Glucose (74-99) mg/dL POC Glucose (mg/dL) 319 H 216 H 126 H (70-110) mg/dL 11/01/24 11/01/24 Range/Units 10:20 11:29 Sodium 136 L (137-145) mmol/L Chloride 111 H (98-107) mmol/L Carbon Dioxide 21 L (22-30) mmol/L BUN 60 H (9-20) mg/dL Creatinine 4.93 H (0.66-1.25) mg/dL Glucose 114 H (74-99) mg/dL POC Glucose (mg/dL) 131 H (70-110) mg/dL Microbiology - Last 24 Hours (Table) 10/29/24 00:05 Urine Culture - Final Urine,Voided [place] albicans Assessment and Plan Assessment: Acute hypoxic respiratory failure, extubated on 10/22/2024. Currently on 3 L/min per nasal cannula Acute left lower lobe pneumonia secondary to Enterobacter aerogenes. Follow-up cultures revealed no growth Acute metabolic encephalopathy, improving Acute kidney injury, with worsening creatinine, currently 4.93 Septic shock, resolved Right-sided pleural effusion requiring thoracentesis and 400 cc of fluid removed cultures revealed no growth, cytology negative for malignancy Septic arthritis of the right knee requiring surgery cultures positive for strep A, patient was transitioned from cefepime to Invanz by infectious disease mostly because of the sputum cultures showing Enterobacter erogenous Chronic back pain may need MRI of the lumbosacral spine Chronic alcohol abuse and acute alcohol withdrawal syndrome recovered Status post arthroscopy and arthroscopic lavage and debridement of right knee with partial medial meniscectomy and medial femoral condyle and medial tibial plateau chondroplasty this was done on 10/06/2024 Acute on chronic anemia History of underlying coronary artery disease and previous stent placement History of LV dysfunction and cardiomyopathy with ejection fraction of 45% Paroxysmal atrial fibrillation currently patient is in sinus rhythm. On amiodarone and heparin drip Type 1 diabetes GERD without esophagitis Dyslipidemia History of [place] History of degenerative joint disease Right upper extremity swelling and pain with limitation in range of motion, seen by orthopedic Suspect peripheral vessel occlusive disease and ischemic changes seen by vascular Plan: The patient was seen and evaluated Labs and medications reviewed Remains on ertapenem per ID service Remains on IV Lasix May require renal replacement therapy Nephrology is following Continued on bronchodilators Titrate down the FiO2 as tolerated Plan is for subacute rehab at [facility] at discharge I have personally seen and examined the patient, performed the documentation and the assessment and plan as written. Number of minutes spent on the visit: 10 Dictation was produced using [employer] dictation software. Please excuse any grammatical, word or spelling errors.
[2024-11-01 16:12] LABS: Glucose,Whole Blood 144 mg/dL (70-110)
--- NOTE | 2024-11-01 18:36 | P.PN ---
Subjective patient is seen for follow-up for acute kidney injury. Renal function has been worsening with serum creatinine at 4.9 mg/dL today. Blake catheter had to be replaced yesterday due to significant urine retention of about 800 ML Blood pressure not low now. Maintained on IV Lasix for significant scrotal edema and volume overload No significant shortness of breath. Patient remains on 2-4 L of oxygen via nasal cannula. Urine output documented at 1.9 L for 24 hours Objective - Vital Signs Vital signs: Vital Signs Temp 98.0 F 11/01/24 15:41 Pulse 84 11/01/24 16:49 Resp 18 11/01/24 15:41 BP 109/66 11/01/24 15:41 Pulse Ox 96 11/01/24 15:41 FiO2 4 10/28/24 04:00 Intake & Output 10/31/24 11/01/24 11/01/24 18:59 06:59 18:59 Intake Total 660 540 572 Output Total 1500 425 725 Balance -840 115 -153 Weight 92 kg 89.5 kg Intake: Oral 660 540 572 Output: Urine 1500 425 725 Other: Voiding Method Indwelling Catheter Indwelling Catheter Indwelling Catheter # Bowel Movements 1 ABP, PAP, CO, CI - Last Documented Arterial Blood Pressure 128/42 - Exam patient is awake and following commands. Examination of the heart S1 and S2 Examination of the lungs bilateral breath sounds are heard Abdomen is soft nontender Examination of lower extremities shows edema 2+. significant scrotal edema - Labs CBC & Chem 7: 10/31/24 07:40 11/01/24 10:20 Labs: Abnormal Lab Results - Last 24 Hours (Table) 10/31/24 11/01/24 11/01/24 Range/Units 20:05 06:15 10:20 Sodium 136 L (137-145) mmol/L Chloride 111 H (98-107) mmol/L Carbon Dioxide 21 L (22-30) mmol/L BUN 60 H (9-20) mg/dL Creatinine 4.93 H (0.66-1.25) mg/dL Glucose 114 H (74-99) mg/dL POC Glucose (mg/dL) 216 H 126 H (70-110) mg/dL 11/01/24 11/01/24 Range/Units 11:29 16:06 Sodium (137-145) mmol/L Chloride (98-107) mmol/L Carbon Dioxide (22-30) mmol/L BUN (9-20) mg/dL Creatinine (0.66-1.25) mg/dL Glucose (74-99) mg/dL POC Glucose (mg/dL) 131 H 144 H (70-110) mg/dL Microbiology - Last 24 Hours (Table) 10/10/24 12:04 Fungal Culture - Preliminary Knee - Right Assessment and Plan Assessment: 1. Acute kidney injury secondary to ATN secondary to septic shock and rhabdomyolysis. Creatinine 3.18 on admission and is improved to 0.9 -1.0. Serum creatinine has been increasing again and it is 4.9 today, blood pressure had been low but improved now. Urine output is improved. No hydronephrosis noted on kidney ultrasound. Rule out acute interstitial nephritis as etiology for second rise in creatinine. Urine eosinophils is positive at 7 2. Rhabdomyolysis secondary to immobility. CK levels trending down. 3. Strep bacteremia on antibiotics. 4. Anion gap metabolic acidosis secondary to acute kidney injury and lactic acidosis.improved. 5. Hyponatremia secondary to hypovolemia as well as acute kidney injury. Better. 6. Hypomagnesemia from poor intake and alcohol abuse. Replaced. 7. History of alcohol abuse. 8. Hypocalcemia, replaced. 25-hydroxy vitamin D was 26.5, started on supplementation. PTH appropriately increased. 9. Hypokalemia from poor intake. Replaced. Better. 10. A-fib with RVR status post amiodarone drip. 11. Volume overload with significant scrotal edema Plan: Add prednisone for possible acute interstitial nephritis continue with midodrine continue with IV Lasix. I would avoid contrast with MRI given the worsening renal function Repeat labs in a.m. Hemodialysis if renal function continues to worsen
[2024-11-01] MEDS: predniSONE 10 MG TAB PO SCH (18:52)
[2024-11-01 21:18] LABS: Glucose,Whole Blood 416 mg/dL (70-110)
[2024-11-01] MEDS: INSULIN DETEMIR (LEVEMIR) 100 UNIT/ML SYR SQ SCH (22:30)
[2024-11-02 06:21] LABS: Glucose,Whole Blood 166 mg/dL (70-110)
[2024-11-02 06:38] LABS: Basophils % (A) 0 %; Eosinophils % (A) 0 %; HCT 21.8 % (39.0-53.0); Hypochromasia Moderate; Lymphocytes # (A) 0.5 k/uL (1.0-4.8); Lymphocytes % (A) 9 %; MCHC 31.8 g/dL (31.0-37.0); MCV 106.8 fL (80.0-100.0); Macrocytosis Moderate; Mean Platelet Volume 8.7; Monocytes # (A) 0.2 k/uL (0-1.0); Monocytes % (A) 3 %; Neutrophils # (A) 4.9 k/uL (1.3-7.7); Neutrophils % (A) 87 %; Platelet Count 368 k/uL (150-450); RBC 2.04 m/uL (4.30-5.90); RDW 15.3 % (11.5-15.5); WBC 5.6 k/uL (3.8-10.6)
[2024-11-02 06:59] LABS: African American GFR (CKD) 13 (>60 ml/min/1.73 sqM); Anion Gap 7 mmol/L; Blood Urea Nitrogen 59 mg/dL (9-20); Calcium 8.5 mg/dL (8.4-10.2); Carbon Dioxide 24 mmol/L (22-30); Chloride 105 mmol/L (98-107); Glucose 123 mg/dL (74-99); Non-African American GFR(CKD) 11 (>60 ml/min/1.73 sqM); Potassium 4.6 mmol/L (3.5-5.1); Sodium 136 mmol/L (137-145)
[2024-11-02 07:00] LABS: HGB 6.9 gm/dL (13.0-17.5)
[2024-11-02] MEDS: FLUCONAZOLE 100 MG TAB PO SCH (09:59)
--- NOTE | 2024-11-02 10:39 | P.PN ---
Subjective Progress Note Date: 11/02/24 Principal diagnosis: Alcohol withdrawal syndrome. Patient is a 64-year-old male who is being seen in the ICU due to hypovolemic shock and rhabdomyolysis. He is a poor historian due to altered mental status and unresponsiveness. All history is obtained from the chart. He initially presented to the emergency department after being found facedown on the ground with a contusion to his forehead and abrasions to his knee and left toes. She stated that he had been having nausea and vomiting for a day prior to being found down. He was noted to have diarrhea as well. Patient is a daily drinker and consumes about a fifth per day according to the notes he has not drank for the 2 days prior to this admission. He also has a history of type 1 diabetes mellitus. Initial EKG showed sinus tachycardia. Head/cervical spine CT showed no acute intracranial process and no acute fracture or traumatic subluxation of the cervical spine. Initial chest x-ray showed right middle lobe scarring/atelectasis, no acute pulmonary process. He had received 4 L of normal saline. Initial labs showed CK level of 18,113, WBCs 10.7, hemoglobin 12.5, sodium 126, creatinine 3.18 lactic acid 6.9, AST 401, ALT 65. Preliminary blood culture showed gram-positive cocci and patient was started on vancomycin. 10/07/2024. He is maintained on a bicarb drip as well as normal saline. He remains unresponsive to verbal stimulation. He is maintained on CIWA protocol. Labs today: WBCs 5.1, hemoglobin 11.6, sodium 126, potassium 3.8, BUN 53, creatinine 3.12, ammonia <9. Progress note dated October 08, 2024. 64-year-old male seen in room 252. I was notified by the nurse at nighttime, that the patient's blood pressure continued to drop. We bumped up his dose of norepinephrine, and gave him a liter of fluid. In addition, his respiratory status was marginal, and the blood gas was ordered. The patient is currently on 6 L of oxygen. The patient was admitted on October 06. He is getting saline at 150 cc an hour, and Precedex at 0.4 mcg/kg/h. His norepinephrine is running at 31 mcg/min. There is staphylococci in his blood. I have asked the nurses to add Ativan Dilaudid and Haldol to his regimen, to try to wean him off the dexmedetomidine. White count of 9.1, hemoglobin hematocrit 29, platelet count 88,000. Sodium 131, potassium 3, chloride 92, CO2 32, BUN 50, creatinine 2.34. Glucose is 167. Calcium is 6.3. CK was 8796. AST is 507. ALT is 136. Albumin is 2.2. Blood cultures from the were positive for Streptococcus group A. Chest x-ray shows bilateral effusions, small, with low lung volumes. 10/09/2024. Patient seen as a followup. No acute events overnight. He is currently on 6 L of oxygen. He was on dextrose 5% - 0.9% NaCl, blood sugars have been in the mid to high 200s. He is receiving Kefzol for streptococcal group A bacteremia. Precedex has been turned off. Levophed is 0.3 mcg/kg/min. WBCs 12.3, hemoglobin 9.7, hematocrit 27.7, platelets 48. Sodium 133, potassium 3.7, chloride 105, CO2 19, BUN 42, creatinine 1.62. Glucose 267. Calcium 6.4. CK 3888. AST 323, ALT 78. Albumin 2.2. Today's chest x-ray showed cardiomegaly, pulmonary vascular congestion, and bilateral pleural effusions. 10/10/2024. Patient is being seen as a followup in the ICU. Overnight he went into A-fib with rapid ventricular rate, was started on an amiodarone drip at 1mg/min, and converted back to normal sinus rhythm. His pressures remain in the 100s/40s and pulses are He is currently on 15 L high flow oxygen. He is on normal saline at 150 cc/h. He is maintained on Kefzol for streptococcal group A bactermia, today is day 3. Levophed is at 0.11 mcg/kg/min, vasopressin at 0.02 mcg/kg/min. WBCs 16.4, hemoglobin 9.8, hematocrit 29.6, platelets 38. Sodium 138, potassium 3.5, chloride 112, CO2 23, BUN 35, creatinine 1.26, glucose 164. Ionized calcium 4.1. CK 988. AST 154, ALT 36. Cortisol 32. TSH 4.3830. In addition, he removed his NG tube overnight. Today's chest x-ray is unchanged from previous. He remains lethargic and barely responsive to verbal stimulation. 10/11/2024. Patient is seen in the ICU. He underwent arthroscopic lavage of the right knee yesterday evening and returned to the ICU intubated on mechanical ventilation. He is currently on assist-control mode with rate 18, tidal volume 450, FiO2 70%, PEEP 5. ABG shows pH 7.34, pCO2 37, pO2 95. He is maintained on vasopressin 0.02 units/min, Levophed 0.14 mcg/kg/min, normal saline at 100 cc/h, and Kefzol day 4. WBCs 18.1, hemoglobin 8.8, hematocrit 27.6, platelets 52, sodium 140, potassium 3.9, chloride 115, CO2 17, BUN 35, creatinine 1.08, glucose 191, creatinine kinase 215. Calcium 6.5. Magnesium 1.6. He began IV hydrocortisone 50 mg every 6 hours yesterday. Liver ultrasound performed yesterday revealed no acute process. Chest x-ray today is unchanged from previous. 10/12/2024. Patient is evaluated in the ICU. He remains intubated on [facility] anical ventilation on assist-control mode with rate 18, tidal volume 450, FiO2 50%, PEEP 5. ABG shows pH 7.42, pCO2 38, pO2 74. His RSBI yesterday was 110 and he was unable to follow commands so he could not be extubated. He is maintained on vasopressin 0.02 units/min, normal saline at 20 cc/h, IV hydrocortisone 50 mg every 6 hours, and Kefzol day 5. WBCs 17.4, hemoglobin 8.2, hematocrit 25.2, platelets 53, sodium 142, potassium 3.7, chloride 116, CO2 23, BUN 39, creatinine 1.18, glucose 258. Ionized calcium 4.4. Magnesium 1.8. Today's chest x-ray is unchanged. Wound culture gram stain of the right knee preliminary report shows rare gram positive cocci. Progress note dated October 13, 2024. 64-year-old male seen in the intensive care unit, room 252. The patient remains on the mechanical ventilator. He is on volume assist-control, rate 18, tidal volume 450, FiO2 50%, PEEP of 5. Blood gases show pO2 72, pCO2 41, and pH is 7.42. The patient is on propofol at 35 mcg/kg/min, saline at 20 cc an hour, and vital high-protein at 60, with goal of 70. Yesterday, he had a brief s pontaneous breathing trial, and he did poorly. Today he will again have a spontaneous breathing trial, of pressure support of 5 and CPAP of 5. He continues on Ancef. White count 18.8, hemoglobin 8.2, hematocrit 25.8, platelet count 78,000. Sodium 144, potassium 4.1, chlorides 117, CO2 26, BUN 47, creatinine 1.18. Glucose is 340. Albumin is 2.1. Previous blood cultures from October 06 show group A streptococci. Chest x-ray shows bibasilar infiltrates. The patient is seen today October 28, 2024 in follow-up in the intensive care unit. He is currently sitting up in bed. Awake. Somewhat slow to respond. He is maintaining good O2 saturation mid 90s on 3 L/min per nasal cannula. He has been afebrile. Hemodynamically stable. Right knee culture was positive for strep A. Previous sputum culture had been positive for enterofactor aerogenes. Follow-up cultures revealed no growth. Pleural fluid cultures revealed no growth. He 2. Potassium 4.9. Bicarb 21. BUN 58. Creatinine 3.68. Glucose 66. He is continued on DuoNeb and elations. Heparin for DVT prophylaxis. Antibiotics in the form of ertapenem. The patient is seen today October 29, 2024 in follow-up on the selective care unit. He was transferred out of the ICU yesterday. He is currently sitting up in bed. Awake and alert. Still somewhat slow to respond. He is maintaining O2 saturations in the 90s on 3 L/min per nasal cannula. He is been afebrile. Hemodynamically stable. He is status post 1 unit of packed red blood cells this admission. Current hemoglobin 8.0. Platelets 332. White count 7.9. Sodium 139. Potassium 4.4. Bicarb 23. BUN 59. Creatinine 4.24. Glucose 78. Urinalysis with moderate bacteria. Culture pending. He remains on ertapenem. Continued on bronchodilators. Remains on IV diuretics. Currently in a negative balance. Heparin for DVT prophylaxis. The patient is seen today October 30, 2024 in follow-up on the selective care unit. He is currently up in a chair at the bedside. Awake and alert in no acute distress. He is maintaining O2 saturations in the 90s on 3 L/min per nasal cannula. No IV fluids. He is continued on antibiotics in the form of ertapenem. Continued on IV diuretics. Heparin for DVT prophylaxis. Urine culture showing yeast species. Pleural fluid cultures revealed no growth. White count 10.4. Hemoglobin 8.0. MCV 106.8. Platelets 374. Sodium 137. Potassium 4.2. Bicarb 20. BUN 62. Creatinine 4.46. Glucose 87. The patient is seen today October 31, 2024 in follow-up on the selective care unit. He is currently sitting up in bed. Awake and alert in no acute distress. He is maintaining O2 saturations in the 90s on 3 L/min per nasal cannula. White count 8.7. Hemoglobin 7.5. Platelets 365. Sodium 138. Potassium 4.2. Bicarb 21. BUN 60. Creatinine 4.87. Glucose 207. He remains on DuoNeb inhalations. Antibiotics in the form of ertapenem. Currently on fluconazole. Remains on IV diuretics. He is making urine. The patient is seen today November 01, 2024 in follow-up on the selective care unit. He is currently sitting up in a chair. Awake and alert in no acute distress. Maintaining O2 saturations in the 90s on 2 L/min per nasal cannula. Sodium 136. Potassium 4.0. Bicarb 21. BUN 60. Creatinine 4.93. Glucose 114. He is continued on ertapenem. Now initiated on Diflucan. Heparin for DVT prophylaxis. He remains on IV Lasix. Making urine. Creatinine continues to rise. May need renal replacement therapy per nephrology. Progress note dated November 02, 2024. 64-year-old male who is now been in the hospital for 27 days. The patient is seen today in room 384. The patient remains on oxygen, by nasal cannula at 3 L. Saturations are in the low 90s. The patient is laying nearly flat in bed. No distress. Current labs include a white count 5.6, hemoglobin 6.9, hematocrit 21.8, and a platelet count is normal. Sodium 136, potassium 4.6, chlorides 105, CO2 24, BUN 59, creatinine 5.24. Glucose is 166. Calcium is 8.5. Objective - Vital Signs Vital signs: Vital Signs Temp 97.6 F 11/02/24 04:13 Pulse 84 11/02/24 08:16 Resp 18 11/02/24 04:13 BP 127/63 11/02/24 04:13 Pulse Ox 96 11/02/24 08:07 FiO2 4 10/28/24 04:00 Intake & Output 11/01/24 11/02/24 11/02/24 18:59 06:59 18:59 Intake Total 572 170 240 Output Total 725 Balance -153 170 240 Weight 89 kg Intake: IV 50 Ertapenem 0.5 gm In 50 Sodium Chloride 0.9% 50 ml @ 100 mls/hr IVPB HS [facility] Rx#:[id number] Oral 572 120 240 Output: Urine 725 Other: Voiding Method Indwelling Catheter Indwelling Catheter # Bowel Movements 1 ABP, PAP, CO, CI - Last Documented Arterial Blood Pressure 128/42 - Exam No acute distress, currently on 3 L. HEENT examination is grossly unremarkable. Mucous membranes are moist. No oral lesions. Neck supple. Full range of motion. No adenopathy thyromegaly or neck vein distention. Cardiovascular examination reveals regular rhythm rate. S1-S2 normal. No S3 or S4. No discernible murmur noted. Lungs reveal scattered bilateral rhonchi. No wheezes. No crackles. Breath sounds are equal bilaterally. Abdomen soft bowel sounds are heard. No masses or tenderness. Extremities are intact. No cyanosis clubbing or edema. Skin is without rash or lesion. Neurologic examination is brief but nonfocal. - Labs CBC & Chem 7: 11/02/24 05:26 11/02/24 05:26 Labs: Abnormal Lab Results - Last 24 Hours (Table) 11/01/24 11/01/24 11/01/24 Range/Units 10:20 11:29 16:06 RBC (4.30-5.90) m/uL Hgb (13.0-17.5) gm/dL Hct (39.0-53.0) % MCV (80.0-100.0) fL Lymphocytes # (1.0-4.8) k/uL Sodium 136 L (137-145) mmol/L Chloride 111 H (98-107) mmol/L Carbon Dioxide 21 L (22-30) mmol/L BUN 60 H (9-20) mg/dL Creatinine 4.93 H (0.66-1.25) mg/dL Glucose 114 H (74-99) mg/dL POC Glucose (mg/dL) 131 H 144 H (70-110) mg/dL Crossmatch 11/01/24 11/02/24 11/02/24 Range/Units 21:16 05:26 05:26 RBC 2.04 L (4.30-5.90) m/uL Hgb 6.9 L* (13.0-17.5) gm/dL Hct 21.8 L (39.0-53.0) % MCV 106.8 H (80.0-100.0) fL Lymphocytes # 0.5 L (1.0-4.8) k/uL Sodium 136 L (137-145) mmol/L Chloride (98-107) mmol/L Carbon Dioxide (22-30) mmol/L BUN 59 H (9-20) mg/dL Creatinine 5.24 H (0.66-1.25) mg/dL Glucose 123 H (74-99) mg/dL POC Glucose (mg/dL) 416 H (70-110) mg/dL Crossmatch 11/02/24 11/02/24 Range/Units 06:20 08:03 RBC (4.30-5.90) m/uL Hgb (13.0-17.5) gm/dL Hct (39.0-53.0) % MCV (80.0-100.0) fL Lymphocytes # (1.0-4.8) k/uL Sodium (137-145) mmol/L Chloride (98-107) mmol/L Carbon Dioxide (22-30) mmol/L BUN (9-20) mg/dL Creatinine (0.66-1.25) mg/dL Glucose (74-99) mg/dL POC Glucose (mg/dL) 166 H (70-110) mg/dL Crossmatch See Detail Microbiology - Last 24 Hours (Table) 10/10/24 12:04 Fungal Culture - Preliminary Knee - Right Assessment and Plan Assessment: Acute hypoxic respiratory failure, extubated on 10/22/2024. Currently on 3 L/min per nasal cannula. Acute left lower lobe pneumonia secondary to Enterobacter aerogenes. Acute metabolic encephalopathy. Acute kidney injury. Septic shock, resolved. Right-sided pleural effusion requiring thoracentesis. Septic arthritis of the right knee requiring surgery. Chronic back pain. Chronic alcohol abuse and acute alcohol withdrawal syndrome. Status post arthroscopy and arthroscopic lavage and debridement of right knee, on 10/06/2024. Acute on chronic anemia. History of underlying coronary artery disease and previous stent placement. History of LV dysfunction and cardiomyopathy with ejection fraction of 45%. Paroxysmal atrial fibrillation. Type 1 diabetes. GERD without esophagitis. Dyslipidemia. History of DC. History of degenerative joint disease. Right upper extremity swelling and pain. Plan: Plan dated October 08, 2024. An arterial line was placed, at the right radial site. It was done by the resident. It was sutured in place. A sterile dressing was applied by the nurse. In addition, the patient was placed on oxygen therapy, given his blood gases showing room air hypoxemia. In addition, the patient remains on Precedex at 0.4 mcg/kg/h, although, I did asked the nurses to give the patient Ativan, Dilaudid, and Haldol, to try to get him off the dexmedetomidine. The patient's norepinephrine dose is increased to 31 mcg/min. I asked the nurse, to start vasopressin at 0.03 units/min. Labs, x-rays, and medications are reviewed. The patient's BUN and creatinine today were 50 and 2.34. Blood gases yesterday showed a pO2 of 56, pCO2 34, pH is 7.49. This blood gases consistent with toxemia, and respiratory alkalosis. The patient continues on Ancef, for his group A streptococcal sepsis. Plan dated October 13, 2024. The patient was given a daily interruption of sedation and a spontaneous breathing trial yesterday, October 12. He only lasted about 30 minutes. He had a high minute volume, and appeared very agitated. Will attempt that again today. He will be placed on pressor support of 5 and CPAP of 5. He continues on propofol at 35 mcg/kg/min, and saline at 20 cc an hour. He is getting nurse with vital high-protein at 60 cc an hour, with a goal of 70. Blood gases are reasonable with a pO2 72, pCO2 41, pH is 7.42. We will continue to follow make recommendations along the way. The patient does continue on Ancef. Labs, x- rays, and all medications are reviewed. Prognosis is guarded. Plan dated November 02, 2024. The patient was last seen by me on October 13. Please see the note above. At that time, the patient was on the mechanical breathing machine. Currently, the patient is extubated, and is on 3 L. Saturations are in the mid 90s. Labs, x- rays, and medications are reviewed. The patient continues on ertapenem, as per infectious diseases. The patient's respiratory status is stable. We will continue to follow the patient, make recommendations along the way. Prognosis is certainly guarded. Time with Patient: Less than 30
[2024-11-02 11:37] LABS: Glucose,Whole Blood 213 mg/dL (70-110)
--- NOTE | 2024-11-02 13:03 | P.PN ---
Subjective patient is seen for follow-up for acute kidney injury. Renal function has been worsening with serum creatinine at 5.2 mg/dL today. Concern for acute interstitial nephritis. Patient has been started on prednisone. Family is present at bedside and I discussed possibly starting renal replacement therapy Maintained on IV Lasix for significant scrotal edema and volume overload No significant shortness of breath. Patient remains on 2-4 L of oxygen via nasal cannula. Urine output documented at 1.9 L for 24 hours Objective - Vital Signs Vital signs: Vital Signs Temp 98.4 F 11/02/24 12:55 Pulse 84 11/02/24 12:55 Resp 16 11/02/24 12:55 BP 134/72 11/02/24 12:55 Pulse Ox 95 11/02/24 12:55 FiO2 4 10/28/24 04:00 Intake & Output 11/01/24 11/02/24 11/02/24 18:59 06:59 18:59 Intake Total 572 170 270 Output Total 725 Balance -153 170 270 Weight 89 kg Intake: IV 50 30 Ertapenem 0.5 gm In 50 Sodium Chloride 0.9% 50 ml @ 100 mls/hr IVPB HS [facility] Rx#:[id number] Invasive Line 5 30 Oral 572 120 240 Blood Product 0 Unit 0 Output: Urine 725 Other: Voiding Method Indwelling Catheter Indwelling Catheter Indwelling Catheter # Bowel Movements 1 ABP, PAP, CO, CI - Last Documented Arterial Blood Pressure 128/42 - Exam patient is awake and following commands. Examination of the heart S1 and S2 Examination of the lungs bilateral breath sounds are heard Abdomen is soft nontender Examination of lower extremities shows edema 2+. significant scrotal edema - Labs CBC & Chem 7: 11/02/24 05:26 11/02/24 05:26 Labs: Abnormal Lab Results - Last 24 Hours (Table) 11/01/24 11/01/24 11/02/24 Range/Units 16:06 21:16 05:26 RBC 2.04 L (4.30-5.90) m/uL Hgb 6.9 L* (13.0-17.5) gm/dL Hct 21.8 L (39.0-53.0) % MCV 106.8 H (80.0-100.0) fL Lymphocytes # 0.5 L (1.0-4.8) k/uL Sodium (137-145) mmol/L BUN (9-20) mg/dL Creatinine (0.66-1.25) mg/dL Glucose (74-99) mg/dL POC Glucose (mg/dL) 144 H 416 H (70-110) mg/dL Crossmatch 11/02/24 11/02/24 11/02/24 Range/Units 05:26 06:20 08:03 RBC (4.30-5.90) m/uL Hgb (13.0-17.5) gm/dL Hct (39.0-53.0) % MCV (80.0-100.0) fL Lymphocytes # (1.0-4.8) k/uL Sodium 136 L (137-145) mmol/L BUN 59 H (9-20) mg/dL Creatinine 5.24 H (0.66-1.25) mg/dL Glucose 123 H (74-99) mg/dL POC Glucose (mg/dL) 166 H (70-110) mg/dL Crossmatch See Detail 11/02/24 Range/Units 11:34 RBC (4.30-5.90) m/uL Hgb (13.0-17.5) gm/dL Hct (39.0-53.0) % MCV (80.0-100.0) fL Lymphocytes # (1.0-4.8) k/uL Sodium (137-145) mmol/L BUN (9-20) mg/dL Creatinine (0.66-1.25) mg/dL Glucose (74-99) mg/dL POC Glucose (mg/dL) 213 H (70-110) mg/dL Crossmatch Microbiology - Last 24 Hours (Table) 10/10/24 12:04 Fungal Culture - Preliminary Knee - Right Assessment and Plan Assessment: 1. Acute kidney injury secondary to ATN secondary to septic shock and rhabdom yolysis. Creatinine 3.18 on admission and is improved to 0.9 -1.0. Serum creatinine has been increasing again and it is 5.2 today. Concerned for acute interstitial nephritis as etiology for second rise in creatinine. Urine eosinophils is positive at 7. Urine output is improved. No hydronephrosis noted on kidney ultrasound. 2. Rhabdomyolysis secondary to immobility. CK levels trending down. 3. Strep bacteremia on antibiotics. 4. Anion gap metabolic acidosis secondary to acute kidney injury and lactic acidosis.improved. 5. Hyponatremia secondary to hypovolemia as well as acute kidney injury. Better. 6. Hypomagnesemia from poor intake and alcohol abuse. Replaced. 7. History of alcohol abuse. 8. Hypocalcemia, replaced. 25-hydroxy vitamin D was 26.5, started on supplementation. PTH appropriately increased. 9. Hypokalemia from poor intake. Replaced. Better. 10. A-fib with RVR status post amiodarone drip. 11. Volume overload with significant scrotal edema Plan: continue prednisone for possible acute interstitial nephritis continue with midodrine continue with IV Lasix. I would avoid contrast with MRI given the worsening renal function Repeat labs in a.m. Discussed with family regarding possibly starting renal replacement therapy 1-2 days if renal function does not improve.
--- NOTE | 2024-11-02 15:10 | P.PN ---
Subjective Progress Note Date: 11/02/24 Principal diagnosis: Reason for follow-up is Streptococcus agalactiae bacteremia Patient is a 64-year-old male past medical history significant for diabetes mellitus hypertension hyperlipidemia PR osteoarthritis coronary disease patient was brought into the hospital after apparently the patient was found to be facedown on the ground with contusion to his forehead and abrasion to his knee and some bloody toes, patient did have a fever subsequently blood cultures came back positive with Streptococcus agalactiae prompting this consultation. Patient noticed to have swelling of the right knee aspirate was purulent subsequently the patient did have a right knee washout completed by orthopedics on 10/10/2024. On today's evaluation that is 11/02/2024, patient did not have any fever and denies any chills, patient is breathing comfortably on 3 L nasal oxygen, patient with no chest pain or cough patient did not have any abdominal pain nausea vomiting or any loose stools. Patient white count is 5.6 creatinine is 5.24 Objective - Vital Signs Vital signs: Vital Signs Temp 98.4 F 11/02/24 12:55 Pulse 84 11/02/24 12:55 Resp 16 11/02/24 12:55 BP 134/72 11/02/24 12:55 Pulse Ox 95 11/02/24 12:55 FiO2 4 10/28/24 04:00 Intake & Output 11/01/24 11/02/24 11/02/24 18:59 06:59 18:59 Intake Total 572 170 270 Output Total 725 Balance -153 170 270 Weight 89 kg Intake: IV 50 30 Ertapenem 0.5 gm In 50 Sodium Chloride 0.9% 50 ml @ 100 mls/hr IVPB HS [facility] Rx#:[id number] Invasive Line 5 30 Oral 572 120 240 Blood Product 0 Unit 0 Output: Urine 725 Other: Voiding Method Indwelling Catheter Indwelling Catheter Indwelling Catheter # Bowel Movements 1 ABP, PAP, CO, CI - Last Documented Arterial Blood Pressure 128/42 - Exam GENERAL DESCRIPTION: Middle-age male lying in bed in no distress RESPIRATORY SYSTEM: Unlabored breathing , coarse breath sounds bilaterally HEART: S1 S2 regular rate and rhythm , ABDOMEN: Soft , no tenderness EXTREMITIES: Swelling to the lower extremity and right knee but no redness - Labs CBC & Chem 7: 11/02/24 05:26 11/02/24 05:26 Labs: Abnormal Lab Results - Last 24 Hours (Table) 11/01/24 11/01/24 11/02/24 Range/Units 16:06 21:16 05:26 RBC 2.04 L (4.30-5.90) m/uL Hgb 6.9 L* (13.0-17.5) gm/dL Hct 21.8 L (39.0-53.0) % MCV 106.8 H (80.0-100.0) fL Lymphocytes # 0.5 L (1.0-4.8) k/uL Sodium (137-145) mmol/L BUN (9-20) mg/dL Creatinine (0.66-1.25) mg/dL Glucose (74-99) mg/dL POC Glucose (mg/dL) 144 H 416 H (70-110) mg/dL Crossmatch 11/02/24 11/02/24 11/02/24 Range/Units 05:26 06:20 08:03 RBC (4.30-5.90) m/uL Hgb (13.0-17.5) gm/dL Hct (39.0-53.0) % MCV (80.0-100.0) fL Lymphocytes # (1.0-4.8) k/uL Sodium 136 L (137-145) mmol/L BUN 59 H (9-20) mg/dL Creatinine 5.24 H (0.66-1.25) mg/dL Glucose 123 H (74-99) mg/dL POC Glucose (mg/dL) 166 H (70-110) mg/dL Crossmatch See Detail 11/02/24 Range/Units 11:34 RBC (4.30-5.90) m/uL Hgb (13.0-17.5) gm/dL Hct (39.0-53.0) % MCV (80.0-100.0) fL Lymphocytes # (1.0-4.8) k/uL Sodium (137-145) mmol/L BUN (9-20) mg/dL Creatinine (0.66-1.25) mg/dL Glucose (74-99) mg/dL POC Glucose (mg/dL) 213 H (70-110) mg/dL Crossmatch Microbiology - Last 24 Hours (Table) 11/21/24 12:04 Fungal Culture - Preliminary Knee - Right Assessment and Plan (1) Sepsis Current Visit: Yes Status: Acute Code(s): A41.9 - SEPSIS, UNSPECIFIED ORGANISM SNOMED Code(s): 11895452 (2) Streptococcal bacteremia Current Visit: Yes Status: Acute Code(s): R78.81 - BACTEREMIA; B95.5 - UNSP STREPTOCOCCUS THE CAUSE OF DISEASES [facility] SNOMED Code(s): 503308736331 Plan: 1patient presented to the hospital with sepsis in this patient who did have fever tachycardia elevated white count and now with evidence of streptococcal bacteremia which is usually of skin and soft tissue origin 2-patient noticed to have right knee effusion has been evaluated by orthopedics and is status post aspiration with purulent drainage subsequently did have right knee washout by orthopedic cultures are pending may need further workup including MRI of the spine when stable. Ortho is following the patient closely 3patient right knee fluid culture also came back positive with group A strep 4-patient did have left-sided pneumonia patient required reintubation and also status post bronchoscopy and lavage sputum culture so far negative, initial culture growing Enterobacter that is sensitive to cefepime patient subsequently has been successfully extubated 5the patient remains to be afebrile white count has been normal, 6- patient is afebrile white count is normal, currently treated ertapenem 500 mg daily along with Diflucan, and monitor clinical course closely Dictation was produced using [employer] dictation software. please excuse any grammatical, word or spelling errors. Time with Patient: Less than 30
[2024-11-02 16:24] LABS: Glucose,Whole Blood 218 mg/dL (70-110)
[2024-11-02 20:35] LABS: Glucose,Whole Blood 352 mg/dL (70-110)
[2024-11-02 23:24] LABS: Glucose,Whole Blood 243 mg/dL (70-110)
[2024-11-03 05:46] LABS: Glucose,Whole Blood 314 mg/dL (70-110)
[2024-11-03 07:01] LABS: Anisocytosis Slight; Basophils % (A) 0 %; Eosinophils % (A) 0 %; HCT 23.6 % (39.0-53.0); HGB 7.5 gm/dL (13.0-17.5); Hypochromasia Slight; Lymphocytes # (A) 1.2 k/uL (1.0-4.8); Lymphocytes % (A) 19 %; MCH 32.8 pg (25.0-35.0); MCHC 31.7 g/dL (31.0-37.0); MCV 103.2 fL (80.0-100.0); Macrocytosis Moderate; Mean Platelet Volume 8.8; Monocytes # (A) 0.4 k/uL (0-1.0); Monocytes % (A) 7 %; Neutrophils # (A) 4.4 k/uL (1.3-7.7); Neutrophils % (A) 71 %; Platelet Count 342 k/uL (150-450); RBC 2.28 m/uL (4.30-5.90); RDW 16.7 % (11.5-15.5); WBC 6.1 k/uL (3.8-10.6)
[2024-11-03 07:07] LABS: African American GFR (CKD) 13 (>60 ml/min/1.73 sqM); Anion Gap 7 mmol/L; Blood Urea Nitrogen 59 mg/dL (9-20); Carbon Dioxide 23 mmol/L (22-30); Chloride 104 mmol/L (98-107); Glucose 236 mg/dL (74-99); Magnesium 1.3 mg/dL (1.6-2.3); Non-African American GFR(CKD) 11 (>60 ml/min/1.73 sqM); Potassium 4.4 mmol/L (3.5-5.1); Sodium 134 mmol/L (137-145)
--- NOTE | 2024-11-03 07:55 | P.PN ---
Subjective Progress Note Date: 11/03/24 Progress Note Date: 10/31/24 64-year-old male who is being seen in the ICU due to hypovolemic shock and rhabdomyolysis. He is a poor historian due to altered mental status and un responsiveness. All history is obtained from the chart. He initially presented to the emergency department after being found facedown on the ground with a contusion to his forehead and abrasions to his knee and left toes. She stated that he had been having nausea and vomiting for a day prior to being found down. He was noted to have diarrhea as well. Patient is a daily drinker and consumes about a fifth per day according to the notes he has not drank for the 2 days prior to this admission. He also has a history of type 1 diabetes mellitus. Initial EKG showed sinus tachycardia. Head/cervical spine CT showed no acute intracranial process and no acute fracture or traumatic subluxation of the cervical spine. Initial chest x-ray showed right middle lobe scarring/atelectasis, no acute pulmonary process. He had received 4 L of normal saline. Initial labs showed CK level of 18,113, WBCs 10.7, hemoglobin 12.5, sodium 126, creatinine 3.18 lactic acid 6.9, AST 401, ALT 65. Preliminary blood culture showed gram-positive cocci and patient was started on vancomycin. 24-hour interval change 10/12/2024 -- Patient is evaluated in the ICU. He remains intubated on mechanical ventilation - ABG shows pH 7.42, pCO2 38, pO2 74. - He is maintained on vasopressin 0.02 units/min, normal saline at 20 cc/h, IV hydrocortisone 50 mg every 6 hours, and Kefzol day 5. Labs are reviewed WBCs 17.4, hemoglobin 8.2, hematocrit 25.2, platelets 53, sodium 142, potassium 3.7, chloride 116, CO2 23, BUN 39, creatinine 1.18, glucose 258. Ionized calcium 4.4. Magnesium 1.8. Today's chest x-ray is unchanged. Wound culture gram stain of the right knee preliminary report shows rare gram positive cocci. 10/13/2024 Patient is seen and evaluated in ICU at bedside; remains on the mechanical ventilator. Discussed with nursing staff. Concerns about elevated blood sugars; patient was placed on home dose of Lantus which did not help much - Blood gases show pO2 72, pCO2 41, and pH is 7.42. - The patient is on propofol at 35 mcg/kg/min, saline at 20 cc an hour, and vital high-protein at 60, with goal of 70. Yesterday, he had a brief spontane ous breathing trial, and he did poorly. Today he will again have a spontaneous breathing trial, of pressure support of 5 and CPAP of 5. He continues on Ancef. White count 18.8, hemoglobin 8.2, hematocrit 25.8, platelet count 78,000. Sodium 144, potassium 4.1, chlorides 117, CO2 26, BUN 47, creatinine 1.18. Glucose is 340. Albumin is 2.1. Previous blood cultures from October 06 show group A streptococci. Chest x-ray shows bibasilar infiltrates. -- For hyperglycemia I will increase dose of Lantus and add insulin lispro every 4 hours; continue with current sliding scale 10/14/2024 Patient is seen in follow-up today continues on Precedex and attempting to wean maintained on mechanical ventilation with an FiO2 of 50% PEEP is 5. Per nursing staff attempting sedation holiday although did not go well yesterday. Patient is maintained on antibiotics with infectious disease following and patient is status post right knee aspiration with preliminary culture showing strep a with positive blood cultures. Patient continues with significant swelling especially the scrotal area maintained on IV Lasix and will continue. No discussion of PEG and trach as of yet and patient remains full code. Prognosis is guarded. 10/15/2024 Patient is seen this morning continues to be in the ICU currently working on weaning FiO2 and undergoing sedation holiday. Patient is eye tracking and foll owing commands and per pulmonary park keeper working on extubation today. Will await official report and monitor closely. Patient is continued on antibiotics with infectious disease following. 10/16/2024 Patient is seen in follow-up this morning extubated successfully currently maintained on 6 L high flow nasal cannula. Patient is awake and responding appropriately to questions and commands. Patient is extremely lethargic at times and significantly weak with significant edema noted. Sodium is elevated at 150 and is continued on D5 and water. Blood sugars have been elevated and will adjust insulins accordingly. Patient swallow eval performed and failed awaiting reevaluation with speech. Continue n.p.o. for now. White count remains elevated patient is maintained on antibiotics with infectious disease following. Awaiting repeat cultures. Procalcitonin 1.06. Questions and rahat rns were answered to the best of my ability with son at the bedside. 10/17/2024 Patient is evaluated today in follow up in the ICU. He was extubated yesterday. Continues on oxygen support on 100% BiPAP at this time. Cultures from the right knee arthroscopy reveals Strep A. Chest xray today reveals no change to the bibasilar opacities. Chest ultrasound reveals right pleural effusion pocket size 6.0 cm and left pleural effusion pocket size of 4.9 cm. Both sides marked for possible thoracentesis. Labs today reveal white blood cell count of 11.8, hgb 7.5, sodium 146, potassium 3.4, BUN 43, creatinine 1.06. Blood glucose 200s. Continues on IV amiodarone, IV cefepime, IV vancomycin. Patient is in normal sinus rhythm currently heart rate in the 80s. 10/18/2024 Patient evaluated today in follow up in the ICU. He is awake alert oriented continues on BiPAP. He is status post right sided thoracentesis with 400 mL off. Chest xray today reveals stable bilateral lower lobe infiltrate and small pl eural effusion. White blood cell count today 10.4. Continues on IV vancomycin and IV cefepime. Remains on IV amiodarone. on IV heparin. Patient remains NPO at this time, speech therapy to follow up today to reassess. 10/19/2024 Patient remains in the ICU. He is on the mechanical ventilator, FiO2 of 50%. Chest x-ray today shows left lower lobe pneumonia and/or atelectasis and pleural effusion. Elian in the left lung base is obscuring the left heart border and the hemidiaphragm has decreased in the interval. White blood cell count today is 8.4, hemoglobin 7.1, sodium 144, BUN of 40, creatinine of 1.43. His viral panel is negative for all viruses checked. 10/20/2024 Patient remains the intensive care unit he is currently on mechanical ventilator with an FiO2 of 50%. He is awake and alert and responding to commands. His chest x-ray reveals continued acute coronary cardiopulmonary disease involving the retrocardiac region with no significant interval change. Repeat sputum reveals Enterobacter he continues on IV cefepime at this time. Hemoglobin level today is 6.7 he will receive 1 unit of packed red blood cells. His creatinine is up to 1.51 today. Continues on oral amiodarone for the atrial fibrillation was taken off of anticoagulation secondary to the decreased hemoglobin. Patient is sedated with propofol at this time. He is also receiving IV Lasix daily prognosis remains guarded. 10/21/2024 Patient remains in the intensive care unit. Remains on the mechanical neville tilator. He is currently sedated with propofol. He is alert and following commands. Chest xray unchanged continues to show pneumonia with sputum culture showing enterobacter. He remains on IV cefepime. Hemoglobin better today at 7.8. BUN 42 creatinine 1.67. 10/22/2024 Patient is evaluated today in the intensive care unit. Patient was extubated today. He is awake alert and oriented. He is complaining of some back pain. Has IV dilaudid on board. Chest xray today reveals no evidence of pleural effusion, focal consolidation, or pneumothorax. He remains edematous. Creatinine 1.87 today. On IV lasix which has been increased to BID by nephrology. 3L of urine output in the last 24 hours. 10/23/2024 Patient evaluated today in follow up in the ICU. Currently on 2L of oxygen via nasal cannula with saturations of 99%. Remains on IV cefepime. Chest xray today reveals left lung airspace opacity. Creatinine up to 2.1 today IV lasix has been discontinued. Patient has been placed on normal saline at 75 mls/hr. Speech therapy re consulted for swallow evaluation post extubation. 10/24/2024 Patient evaluated today in follow up remains in the ICU. Patient underwent neuro evaluation today. Brain CT was done revealing no acute bleed or mass effect. Mild age-appropriate senescent changes. Marked calcification of basal artery and significant stenosis cannot be excluded. Mild to moderate fluid in the mastoid air cells bilaterally. BUN 46 creatinine 2.12. Continues on normal saline at 75 mls/hr. Continues on IV cefepime. 10/25/2024 Patient remains in the ICU with multiple consultations following. Patient continues to be encephalopathic with neurology following. Orthopedics to reevaluate the upper extremity weakness and also vascular surgery was consulted as there is concerns of occlusive disease of the left lower extremity with discoloration of the toes. Patient continues on antibiotics and continues to require 2 L of oxygen. Patient is maintained on dysphagia ground diet and strongly recommend aspiration precautions and supervision with meals along with head of the bed elevated 30 to 45 degrees at all times. Patient is currently afebrile with no reports of chest pain or shortness of breath. 1 dose of IV Lasix was given today. 10/26/2024 Patient remains in the ICU. Continues to be confused and more lethargic today. Neurology following and felt this was encephalopathy. He is not using this right arm and he does have pain when touching that arm. It is edematous.Vascular e valated the patient for the left diabetic foot wounds which have dry gangrene and did not feel there was ischemia to the leg. He remains on 2L of oxygen via nasal cannula. Labs today hemoglobin 7.3, BUN 51, creatinine 2.66. Remains on IV cefepime which can also cause confusion. 10/27/2024 Patient evaluated in follow-up in the intensive care unit. He is currently sitting up in the chair family at the bedside. He is more awake alert and oriented he is able to state his name and birthday. He does continue to have significant right upper extremity weakness and also mild right lower extremity weakness. This was discussed with neurology and as his mentation has improved brain and cervical neck MRI are both ordered for tomorrow. His creatinine today is 3.0. He has been taken off of the normal saline and also remains off diuretics. Patient was transition to IV ertapenem taken off of the cefepime at this time. Chest x-ray shows no change in the left lung opacification and probable small pleural effusion. Development of a small right pleural effusion. 10/28/2024 Patient is seen in the ICU with multiple consultations following lethargic although arousable awaiting a transfer out of the ICU once a bed on 3 S. becomes available. Patient is awake although fatigues easily. Patient reports he is eating although not eating much and continues to have weakness. Recommend PT/OT therapy daily. Awaiting cervical neck MRI which has been pending for quite some time. Kidney functions worsening and 3.6 today. Blood pressures are soft and patient was given a dose of Lasix yesterday. Urine output remains marginal and will be monitored closely. Recommend strict intake and output monitoring and documenting. Midodrine being added per nephrology and will follow-up on repeat labs. Patient continues on ertapenem with infectious disease following. Blood sugars have been on the lower side and will adjust insulins and continue with sliding scale with Accu-Cheks before meals and at bedtime. Patient currently denies chest pain or worsening shortness of breath and is currently maintained on 3 L via nasal cannula and oxygen saturations have been above 94%. 10/29/2024 Patient evaluated today on the medical floor as a movement of the intensive care unit. He is able to sit at the edge of the bed today and will continue to work with PT OT daily. He will need subacute rehab on discharge. He is still awaiting a brain and cervical neck MRI unsure if he can have an MRI due to the surgical plates in his neck discussed this with nursing. Also discussed with orthopedics that he is unable to get contrast due to the renal dysfunction and per Dr. Foss group the MRI needs to be with contrast and we will hold off on the lumbar MRI with and without contrast at this time. Did undergo barium swallow and is on pured diet with nectar thick liquids. He remains off of the IV cefepime at this time and currently on IV ertapenem. He remains on IV Lasix daily. 10/30/2024 Patient evaluated in follow-up on the medical floor. He has been moved out of the the intensive care unit. He is sitting up in the chair. He continues with significant right-sided weakness. Underwent brain MRI with no evidence of an acute stroke at this time. Follow-up with orthopedics that he is unable to get this lumbar MRI with and without contrast. Creatinine up to 4.46 today. He is on IV Lasix daily. 10/31/2024 Patient is seen in follow-up today currently sitting up in the chair and has worked with physical therapy reports to being extremely weak. Kidney functions continue to worsen and nephrology following closely and is continued on IV Lasix daily. Patient is making urine although attempted trial void yesterday and retained over 800 and Hinson catheter was placed again. Will add Flomax and monitor intake and output closely. Discussing renal replacement daily although holding off today. Will follow-up with repeat labs. Patient denies worsening shortness of breath and reports is improving daily. Patient reports is tolerating diet with no reported nausea or vomiting. 11/01/2024 Patient evaluated in follow up today sitting up in the chair. Continues with significant weakness and more pronounced on the right. He continues on IV lasix daily. Remains edematous. BUN up to 60 and creatinine of 4.93 today. He has had about 1.6 L of fluid off in the last 24 hours. He continues on IV ertapenem. 11/02/2024 No acute events overnight. Remains on IV ertapenem. Hgb today 6.9, no evidence for active bleeding. Sodium 134, BUN 59, creatinine 5.24. Continues with indwelling hinson catheter. Review of systems: Constitutional: reports of fatigue, no fever, or chills Cardiovascular: No reports of chest pain or palpitations Respiratory: No reports of worsening shortness of breath reports continued weak cough GI: No reports of nausea, vomiting, or diarrhea, : No reports of dysuria or retention Neurovascular: reports of generalized weakness and continued swelling of upper and lower extremities that is slightly improved All medications have been reviewed Physical exam: Gen: This is a 64-year-old male who is maintained on 3 L nasal cannula., well- developed, elderly appearing, ill-appearing, appears older than stated age, HEENT: Head is atraumatic, normocephalic. Pupils equal, round. Sclerae is anicteric. NECK: Supple. No JVD. No lymphadenopathy. No thyromegaly. LUNGS: Diminished breath sounds bilaterally with some bronchial congestion and coarse scattered rhonchi. No intercostal retractions. HEART: S1, S2 are muffled ABDOMEN: Soft. Somewhat taut, positive bowel sounds are present. No masses. No tenderness. Significant scrotal edema noted, minimally improved EXTREMITIES: Bilateral upper and lower extremity edema noted. No calf tenderness. Generalized upper and lower extremity edema along with scrotal swelling noted Right upper extremity weakness. NEUROLOGICAL: Patient is awake, alert and oriented x 2, diffusely weak Assessment: -Chronic alcohol abuse with acute alcohol withdrawal syndrome; Thiamine and protonix. No longer going through acute withdrawals. -Altered mental status acute metabolic and septic encephalopathy. Brain CT reveals no acute stroke. Patient continues to have right upper and lower extremity weakness. Unable to officially rule out stroke. -Acute hypoxic respiratory failure was intubated following knee surgery on 10/10 and successfully extubated on 10/15/24. re-intubated on 10/18/2024 and now extubated on 10/22/24. Status post bronchoscopy on 10/18. -Congestive heart failure with an EF of 45%, diastolic dysfunction -Paroxysmal atrial fibrillation transitioned to oral amiodarone Currently on subq heparin. Was taken off IV heparin due to decreased hemoglobin -Acute blood loss anemia requiring transfusion, hgb was stable down to 6.9 today and will receive 1 unit PRBC -Right sided pleural effusion status post right sided thoracentesis with 400 mL off. -Oral thrush -Rhabdomyolysis secondary to immobility due to fall. Improving with IV hydration. We will continue to monitor strict STERLING's, daily weights, renal function electrolytes -Acute kidney injury secondary to ATN due to to septic shock and rhabdomyolysis. Was initially improving and now with worsening renal function, nephrology following with no immediate plans for renal replacement although has been discussing the possible need for is kidney functions continue to worsen. Patient is making good urine output although was retaining and did require Hinson catheter to be replaced. Will add Flomax -Relative adrenal insufficiency. On IV hydrocortisone. -Transaminitis. Improving. -Streptococcus group A bacteremia. Currently on ertapenem per ID recommendation; continue to monitor CBC, CRP and procalcitonin. Possibly secondary to right knee infection -Right knee pain with swelling, status post aspiration along with arthroscopic lavage, culture showing strep a with septic arthritis -Hyponatremia, likely hypovolemic; resolved. -Episode of hypernatremia treated with D5W, sodium normalized. This was due to free water deficit. 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 -History of coronary artery disease with previous catheterization and stent placement. -Hypertension; currently not on any antihypertensive medication. -Sepsis, present on admission possibly secondary to right knee arthritis with bacteremia GI prophylaxis DVT prophylaxis No code Plan: status post arthroscopy with lavage of the right knee and final cultures showing Strep A. Currently on ertapenem per ID recommendations and cefepime has been discontinued. Repeat blood cultures thus far are negative and will continue on IV antibiotics with ID following Sputum culture showing Enterobacter patient is status post bronchoscopy sputum cultures are now negative Speech therapy has been reconsulted post extubation and is maintained on a dysphagia ground diet and strongly recommend aspiration precautions with supervision with meals and head of the bed elevated 30 to 45 degrees at all time s Blood sugars variable and have been steadily increasing and will adjust insulins including increasing long-acting slightly. Continue with Accu-Cheks before meals and at bedtime and sliding scale Follow-up on repeat labs and monitor kidney functions and electrolytes closely. Nephrology following closely discussing possible renal replacement and recommend monitoring urine output closely Orthopedics did recommend lumbar spine MRI with and without contrast although patients renal function now with creatinine of 4.46 he is unable to get oral contrast at this time. Physical therapy and occupational therapy have been re-consulted. And recommend evaluating daily as patient is significantly weak and has had prolonged hospitalization. Patient requesting [facility] on discharge when medically stable. Repeat blood work in the AM Overall prognosis remains guarded at this time The impression and plan of care has been dictated by Sharlene Pendleton, Nurse Practitioner as directed. Dr. Randall MD I have performed a history and examination and MDM of this patient, discussed the same with the dictator, and agree with the dictator's assessment and plan as written ,documented as a scribe. Based on total visit time, I have performed more than 50% of the visit. Objective - Vital Signs Vital signs: Vital Signs Temp 98.2 F 11/03/24 04:37 Pulse 78 11/03/24 04:37 Resp 18 11/03/24 04:37 BP 122/65 11/03/24 04:37 Pulse Ox 90 L 11/03/24 04:37 FiO2 4 10/28/24 04:00 Intake & Output 11/02/24 11/03/24 11/03/24 18:59 06:59 18:59 Intake Total 820 660 120 Output Total 700 800 Balance 120 -140 120 Weight 94.5 kg Intake: IV 30 60 Ertapenem 0.5 gm In 50 Sodium Chloride 0.9% 50 ml @ 100 mls/hr IVPB HS REPLACED BY [facility] Rx#:[id number] Invasive Line 5 30 10 Oral 480 600 120 Blood Product 310 Rc As-1 Unit 310 [id number] Output: Urine 700 800 Other: Voiding Method Indwelling Catheter Indwelling Catheter # Bowel Movements 1 1 ABP, PAP, CO, CI - Last Documented Arterial Blood Pressure 128/42 - Labs CBC & Chem 7: 11/03/24 06:28 11/03/24 06:28 Labs: Abnormal Lab Results - Last 24 Hours (Table) 11/02/24 11/02/24 11/02/24 Range/Units 08:03 11:34 16:22 RBC (4.30-5.90) m/uL Hgb (13.0-17.5) gm/dL Hct (39.0-53.0) % MCV (80.0-100.0) fL RDW (11.5-15.5) % Sodium (137-145) mmol/L BUN (9-20) mg/dL Creatinine (0.66-1.25) mg/dL Glucose (74-99) mg/dL POC Glucose (mg/dL) 213 H 218 H (70-110) mg/dL Calcium (8.4-10.2) mg/dL Magnesium (1.6-2.3) mg/dL Crossmatch See Detail 11/02/24 11/02/24 11/03/24 Range/Units 20:34 23:21 05:44 RBC (4.30-5.90) m/uL Hgb (13.0-17.5) gm/dL Hct (39.0-53.0) % MCV (80.0-100.0) fL RDW (11.5-15.5) % Sodium (137-145) mmol/L BUN (9-20) mg/dL Creatinine (0.66-1.25) mg/dL Glucose (74-99) mg/dL POC Glucose (mg/dL) 352 H 243 H 314 H (70-110) mg/dL Calcium (8.4-10.2) mg/dL Magnesium (1.6-2.3) mg/dL Crossmatch 11/03/24 11/03/24 Range/Units 06:28 06:28 RBC 2.28 L (4.30-5.90) m/uL Hgb 7.5 L (13.0-17.5) gm/dL Hct 23.6 L (39.0-53.0) % MCV 103.2 H (80.0-100.0) fL RDW 16.7 H (11.5-15.5) % Sodium 134 L (137-145) mmol/L BUN 59 H (9-20) mg/dL Creatinine 5.11 H (0.66-1.25) mg/dL Glucose 236 H (74-99) mg/dL POC Glucose (mg/dL) (70-110) mg/dL Calcium 8.0 L (8.4-10.2) mg/dL Magnesium 1.3 L (1.6-2.3) mg/dL Crossmatch Assessment and Plan Time with Patient: Less than 30
[2024-11-03] MEDS: MAGNESIUM SULFATE-D5W PMX 1 GM in DEXTROSE/WATER 1 100ML.BAG IVPB SCH (09:57)
[2024-11-03 11:42] LABS: Glucose,Whole Blood 241 mg/dL (70-110)
--- NOTE | 2024-11-03 12:21 | P.PN ---
Subjective Progress Note Date: 11/03/24 Principal diagnosis: Alcohol withdrawal syndrome. Patient is a 64-year-old male who is being seen in the ICU due to hypovolemic shock and rhabdomyolysis. He is a poor historian due to altered mental status and unresponsiveness. All history is obtained from the chart. He initially presented to the emergency department after being found facedown on the ground with a contusion to his forehead and abrasions to his knee and left toes. She stated that he had been having nausea and vomiting for a day prior to being found down. He was noted to have diarrhea as well. Patient is a daily drinker and consumes about a fifth per day according to the notes he has not drank for the 2 days prior to this admission. He also has a history of type 1 diabetes mellitus. Initial EKG showed sinus tachycardia. Head/cervical spine CT showed no acute intracranial process and no acute fracture or traumatic subluxation of the cervical spine. Initial chest x-ray showed right middle lobe scarring/atelectasis, no acute pulmonary process. He had received 4 L of normal saline. Initial labs showed CK level of 18,113, WBCs 10.7, hemoglobin 12.5, sodium 126, creatinine 3.18 lactic acid 6.9, AST 401, ALT 65. Preliminary blood culture showed gram-positive cocci and patient was started on vancomycin. 10/07/2024. He is maintained on a bicarb drip as well as normal saline. He remains unresponsive to verbal stimulation. He is maintained on CIWA protocol. Labs today: WBCs 5.1, hemoglobin 11.6, sodium 126, potassium 3.8, BUN 53, creatinine 3.12, ammonia <9. Progress note dated October 08, 2024. 64-year-old male seen in room 252. I was notified by the nurse at nighttime, that the patient's blood pressure continued to drop. We bumped up his dose of norepinephrine, and gave him a liter of fluid. In addition, his respiratory status was marginal, and the blood gas was ordered. The patient is currently on 6 L of oxygen. The patient was admitted on October 06. He is getting saline at 150 cc an hour, and Precedex at 0.4 mcg/kg/h. His norepinephrine is running at 31 mcg/min. There is staphylococci in his blood. I have asked the nurses to add Ativan Dilaudid and Haldol to his regimen, to try to wean him off the dexmedetomidine. White count of 9.1, hemoglobin hematocrit 29, platelet count 88,000. Sodium 131, potassium 3, chloride 92, CO2 32, BUN 50, creatinine 2.34. Glucose is 167. Calcium is 6.3. CK was 8796. AST is 507. ALT is 136. Albumin is 2.2. Blood cultures from the were positive for Streptococcus group A. Chest x-ray shows bilateral effusions, small, with low lung volumes. 10/09/2024. Patient seen as a followup. No acute events overnight. He is currently on 6 L of oxygen. He was on dextrose 5% - 0.9% NaCl, blood sugars have been in the mid to high 200s. He is receiving Kefzol for streptococcal group A bacteremia. Precedex has been turned off. Levophed is 0.3 mcg/kg/min. WBCs 12.3, hemoglobin 9.7, hematocrit 27.7, platelets 48. Sodium 133, potassium 3.7, chloride 105, CO2 19, BUN 42, creatinine 1.62. Glucose 267. Calcium 6.4. CK 3888. AST 323, ALT 78. Albumin 2.2. Today's chest x-ray showed cardiomegaly, pulmonary vascular congestion, and bilateral pleural effusions. 10/10/2024. Patient is being seen as a followup in the ICU. Overnight he went into A-fib with rapid ventricular rate, was started on an amiodarone drip at 1mg/min, and converted back to normal sinus rhythm. His pressures remain in the 100s/40s and pulses are He is currently on 15 L high flow oxygen. He is on normal saline at 150 cc/h. He is maintained on Kefzol for streptococcal group A bactermia, today is day 3. Levophed is at 0.11 mcg/kg/min, vasopressin at 0.02 mcg/kg/min. WBCs 16.4, hemoglobin 9.8, hematocrit 29.6, platelets 38. Sodium 138, potassium 3.5, chloride 112, CO2 23, BUN 35, creatinine 1.26, glucose 164. Ionized calcium 4.1. CK 988. AST 154, ALT 36. Cortisol 32. TSH 4.3830. In addition, he removed his NG tube overnight. Today's chest x-ray is unchanged from previous. He remains lethargic and barely responsive to verbal stimulation. 10/11/2024. Patient is seen in the ICU. He underwent arthroscopic lavage of the right knee yesterday evening and returned to the ICU intubated on mechanical ventilation. He is currently on assist-control mode with rate 18, tidal volume 450, FiO2 70%, PEEP 5. ABG shows pH 7.34, pCO2 37, pO2 95. He is maintained on vasopressin 0.02 units/min, Levophed 0.14 mcg/kg/min, normal saline at 100 cc/h, and Kefzol day 4. WBCs 18.1, hemoglobin 8.8, hematocrit 27.6, platelets 52, sodium 140, potassium 3.9, chloride 115, CO2 17, BUN 35, creatinine 1.08, glucose 191, creatinine kinase 215. Calcium 6.5. Magnesium 1.6. He began IV hydrocortisone 50 mg every 6 hours yesterday. Liver ultrasound performed yesterday revealed no acute process. Chest x-ray today is unchanged from previous. 10/12/2024. Patient is evaluated in the ICU. He remains intubated on [facility] anical ventilation on assist-control mode with rate 18, tidal volume 450, FiO2 50%, PEEP 5. ABG shows pH 7.42, pCO2 38, pO2 74. His RSBI yesterday was 110 and he was unable to follow commands so he could not be extubated. He is maintained on vasopressin 0.02 units/min, normal saline at 20 cc/h, IV hydrocortisone 50 mg every 6 hours, and Kefzol day 5. WBCs 17.4, hemoglobin 8.2, hematocrit 25.2, platelets 53, sodium 142, potassium 3.7, chloride 116, CO2 23, BUN 39, creatinine 1.18, glucose 258. Ionized calcium 4.4. Magnesium 1.8. Today's chest x-ray is unchanged. Wound culture gram stain of the right knee preliminary report shows rare gram positive cocci. Progress note dated October 13, 2024. 64-year-old male seen in the intensive care unit, room 252. The patient remains on the mechanical ventilator. He is on volume assist-control, rate 18, tidal volume 450, FiO2 50%, PEEP of 5. Blood gases show pO2 72, pCO2 41, and pH is 7.42. The patient is on propofol at 35 mcg/kg/min, saline at 20 cc an hour, and vital high-protein at 60, with goal of 70. Yesterday, he had a brief s pontaneous breathing trial, and he did poorly. Today he will again have a spontaneous breathing trial, of pressure support of 5 and CPAP of 5. He continues on Ancef. White count 18.8, hemoglobin 8.2, hematocrit 25.8, platelet count 78,000. Sodium 144, potassium 4.1, chlorides 117, CO2 26, BUN 47, creatinine 1.18. Glucose is 340. Albumin is 2.1. Previous blood cultures from October 06 show group A streptococci. Chest x-ray shows bibasilar infiltrates. The patient is seen today October 28, 2024 in follow-up in the intensive care unit. He is currently sitting up in bed. Awake. Somewhat slow to respond. He is maintaining good O2 saturation mid 90s on 3 L/min per nasal cannula. He has been afebrile. Hemodynamically stable. Right knee culture was positive for strep A. Previous sputum culture had been positive for enterofactor aerogenes. Follow-up cultures revealed no growth. Pleural fluid cultures revealed no growth. He 2. Potassium 4.9. Bicarb 21. BUN 58. Creatinine 3.68. Glucose 66. He is continued on DuoNeb and elations. Heparin for DVT prophylaxis. Antibiotics in the form of ertapenem. The patient is seen today October 29, 2024 in follow-up on the selective care unit. He was transferred out of the ICU yesterday. He is currently sitting up in bed. Awake and alert. Still somewhat slow to respond. He is maintaining O2 saturations in the 90s on 3 L/min per nasal cannula. He is been afebrile. Hemodynamically stable. He is status post 1 unit of packed red blood cells this admission. Current hemoglobin 8.0. Platelets 332. White count 7.9. Sodium 139. Potassium 4.4. Bicarb 23. BUN 59. Creatinine 4.24. Glucose 78. Urinalysis with moderate bacteria. Culture pending. He remains on ertapenem. Continued on bronchodilators. Remains on IV diuretics. Currently in a negative balance. Heparin for DVT prophylaxis. The patient is seen today October 30, 2024 in follow-up on the selective care unit. He is currently up in a chair at the bedside. Awake and alert in no acute distress. He is maintaining O2 saturations in the 90s on 3 L/min per nasal cannula. No IV fluids. He is continued on antibiotics in the form of ertapenem. Continued on IV diuretics. Heparin for DVT prophylaxis. Urine culture showing yeast species. Pleural fluid cultures revealed no growth. White count 10.4. Hemoglobin 8.0. MCV 106.8. Platelets 374. Sodium 137. Potassium 4.2. Bicarb 20. BUN 62. Creatinine 4.46. Glucose 87. The patient is seen today October 31, 2024 in follow-up on the selective care unit. He is currently sitting up in bed. Awake and alert in no acute distress. He is maintaining O2 saturations in the 90s on 3 L/min per nasal cannula. White count 8.7. Hemoglobin 7.5. Platelets 365. Sodium 138. Potassium 4.2. Bicarb 21. BUN 60. Creatinine 4.87. Glucose 207. He remains on DuoNeb inhalations. Antibiotics in the form of ertapenem. Currently on fluconazole. Remains on IV diuretics. He is making urine. The patient is seen today November 01, 2024 in follow-up on the selective care unit. He is currently sitting up in a chair. Awake and alert in no acute distress. Maintaining O2 saturations in the 90s on 2 L/min per nasal cannula. Sodium 136. Potassium 4.0. Bicarb 21. BUN 60. Creatinine 4.93. Glucose 114. He is continued on ertapenem. Now initiated on Diflucan. Heparin for DVT prophylaxis. He remains on IV Lasix. Making urine. Creatinine continues to rise. May need renal replacement therapy per nephrology. Progress note dated November 02, 2024. 64-year-old male who is now been in the hospital for 27 days. The patient is seen today in room 384. The patient remains on oxygen, by nasal cannula at 3 L. Saturations are in the low 90s. The patient is laying nearly flat in bed. No distress. Current labs include a white count 5.6, hemoglobin 6.9, hematocrit 21.8, and a platelet count is normal. Sodium 136, potassium 4.6, chlorides 105, CO2 24, BUN 59, creatinine 5.24. Glucose is 166. Calcium is 8.5. Progress note dated November 03, 2024. 64-year-old male seen today in room 384. His overall condition is unchanged. He has not been in the hospital for nearly a month. He is on 2 L of oxygen. No IV fluids. Clinically, he is unchanged. Currently white count is 6.1, hemoglobin 7.5, hematocrit 23.6, platelet count 342,000. Sodium 134, potassium 4.4, chlorides 104, CO2 23, BUN is 59, and creatinine is 5.11. Glucose is 241. Calcium is 8, magnesium is 1.3. Objective - Vital Signs Vital signs: Vital Signs Temp 98.5 F 11/03/24 11:08 Pulse 80 11/03/24 11:46 Resp 18 11/03/24 11:08 BP 126/69 11/03/24 11:08 Pulse Ox 92 L 11/03/24 11:08 FiO2 4 10/28/24 04:00 Intake & Output 11/02/24 11/03/24 11/03/24 18:59 06:59 18:59 Intake Total 820 660 430 Output Total 700 800 Balance 120 -140 430 Weight 94.5 kg Intake: IV 30 60 10 Ertapenem 0.5 gm In 50 Sodium Chloride 0.9% 50 ml @ 100 mls/hr IVPB HS [facility] Rx#:[id number] Invasive Line 5 30 10 10 Oral 480 600 420 Blood Product 310 Rc As-1 Unit 310 [id number] Output: Urine 700 800 Other: Voiding Method Indwelling Catheter Indwelling Catheter Indwelling Catheter # Bowel Movements 1 1 ABP, PAP, CO, CI - Last Documented Arterial Blood Pressure 128/42 - Exam No acute distress, currently on 3 L. The patient has a very flat affect. HEENT examination is grossly unremarkable. Mucous membranes are moist. No oral lesions. Neck supple. Full range of motion. No adenopathy thyromegaly or neck vein distention. Cardiovascular examination reveals regular rhythm rate. S1-S2 normal. No S3 or S4. No discernible murmur noted. Lungs reveal scattered bilateral rhonchi. No wheezes. No crackles. Breath sounds are equal bilaterally. Abdomen soft bowel sounds are heard. No masses or tenderness. Extremities are intact. No cyanosis clubbing or edema. Skin is without rash or lesion. Neurologic examination is brief but nonfocal. - Labs CBC & Chem 7: 11/03/24 06:28 11/03/24 06:28 Labs: Abnormal Lab Results - Last 24 Hours (Table) 11/02/24 11/02/24 11/02/24 Range/Units 08:03 16:22 20:34 RBC (4.30-5.90) m/uL Hgb (13.0-17.5) gm/dL Hct (39.0-53.0) % MCV (80.0-100.0) fL RDW (11.5-15.5) % Sodium (137-145) mmol/L BUN (9-20) mg/dL Creatinine (0.66-1.25) mg/dL Glucose (74-99) mg/dL POC Glucose (mg/dL) 218 H 352 H (70-110) mg/dL Calcium (8.4-10.2) mg/dL Magnesium (1.6-2.3) mg/dL Crossmatch See Detail 11/02/24 11/03/24 11/03/24 Range/Units 23:21 05:44 06:28 RBC 2.28 L (4.30-5.90) m/uL Hgb 7.5 L (13.0-17.5) gm/dL Hct 23.6 L (39.0-53.0) % MCV 103.2 H (80.0-100.0) fL RDW 16.7 H (11.5-15.5) % Sodium (137-145) mmol/L BUN (9-20) mg/dL Creatinine (0.66-1.25) mg/dL Glucose (74-99) mg/dL POC Glucose (mg/dL) 243 H 314 H (70-110) mg/dL Calcium (8.4-10.2) mg/dL Magnesium (1.6-2.3) mg/dL Crossmatch 11/03/24 11/03/24 Range/Units 06:28 11:40 RBC (4.30-5.90) m/uL Hgb (13.0-17.5) gm/dL Hct (39.0-53.0) % MCV (80.0-100.0) fL RDW (11.5-15.5) % Sodium 134 L (137-145) mmol/L BUN 59 H (9-20) mg/dL Creatinine 5.11 H (0.66-1.25) mg/dL Glucose 236 H (74-99) mg/dL POC Glucose (mg/dL) 241 H (70-110) mg/dL Calcium 8.0 L (8.4-10.2) mg/dL Magnesium 1.3 L (1.6-2.3) mg/dL Crossmatch Assessment and Plan Assessment: Acute hypoxic respiratory failure, extubated on 10/22/2024. Currently on 2 L/min per nasal cannula. Acute left lower lobe pneumonia secondary to Enterobacter aerogenes. Acute metabolic encephalopathy. Acute kidney injury. Septic shock, resolved. Right-sided pleural effusion requiring thoracentesis. Septic arthritis of the right knee requiring surgery. Chronic back pain. Chronic alcohol abuse and acute alcohol withdrawal syndrome. Status post arthroscopy and arthroscopic lavage and debridement of right knee, on 10/06/2024. Acute on chronic anemia. History of underlying coronary artery disease and previous stent placement. History of LV dysfunction and cardiomyopathy with ejection fraction of 45%. Paroxysmal atrial fibrillation. Type 1 diabetes. GERD without esophagitis. Dyslipidemia. History of IA. History of degenerative joint disease. Right upper extremity swelling and pain. Plan: Plan dated October 08, 2024. An arterial line was placed, at the right radial site. It was done by the resident. It was sutured in place. A sterile dressing was applied by the nurse. In addition, the patient was placed on oxygen therapy, given his blood gases showing room air hypoxemia. In addition, the patient remains on Precedex at 0.4 mcg/kg/h, although, I did asked the nurses to give the patient Ativan, Dilaudid, and Haldol, to try to get him off the dexmedetomidine. The patient's norepinephrine dose is increased to 31 mcg/min. I asked the nurse, to start vasopressin at 0.03 units/min. Labs, x-rays, and medications are reviewed. The patient's BUN and creatinine today were 50 and 2.34. Blood gases yesterday showed a pO2 of 56, pCO2 34, pH is 7.49. This blood gases consistent with toxemia, and respiratory alkalosis. The patient continues on Ancef, for his group A streptococcal sepsis. Plan dated October 13, 2024. The patient was given a daily interruption of sedation and a spontaneous breathing trial yesterday, October 12. He only lasted about 30 minutes. He had a high minute volume, and appeared very agitated. Will attempt that again today. He will be placed on pressor support of 5 and CPAP of 5. He continues on propofol at 35 mcg/kg/min, and saline at 20 cc an hour. He is getting nurse with vital high-protein at 60 cc an hour, with a goal of 70. Blood gases are reasonable with a pO2 72, pCO2 41, pH is 7.42. We will continue to follow make recommendations along the way. The patient does continue on Ancef. Labs, x- rays, and all medications are reviewed. Prognosis is guarded. Plan dated November 02, 2024. The patient was last seen by me on October 13. Please see the note above. At that time, the patient was on the mechanical breathing machine. Currently, the patient is extubated, and is on 3 L. Saturations are in the mid 90s. Labs, x- rays, and medications are reviewed. The patient continues on ertapenem, as per infectious diseases. The patient's respiratory status is stable. We will continue to follow the patient, make recommendations along the way. Prognosis is certainly guarded. Plan dated November 03, 2024. The patient is again seen in room 384. The patient's overall condition is unchanged. Labs, x-rays, and all medications are reviewed. The patient is on 2 L now. The patient is not receiving any IV fluids. We will continue to follow. Prognosis is poor. The patient has now been in the hospital for 28 days. Time with Patient: Less than 30
--- NOTE | 2024-11-03 14:14 | P.PN ---
Subjective patient is seen for follow-up for acute kidney injury. Renal function has been worsening with serum creatinine at 5.1-5.2 Concern for acute interstitial nephritis. Patient has been started on prednisone. Maintained on IV Lasix for significant scrotal edema and volume overload No significant shortness of breath. Patient remains on 2-4 L of oxygen via nasal cannula. Urine output documented at 1.5 L for 24 hours Objective - Vital Signs Vital signs: Vital Signs Temp 98.5 F 11/03/24 11:08 Pulse 81 11/03/24 13:05 Resp 18 11/03/24 11:08 BP 126/69 11/03/24 11:08 Pulse Ox 92 L 11/03/24 11:08 FiO2 4 10/28/24 04:00 Intake & Output 11/02/24 11/03/24 11/03/24 18:59 06:59 18:59 Intake Total 820 660 800 Output Total 700 800 Balance 120 -140 800 Weight 94.5 kg Intake: IV 30 60 20 Ertapenem 0.5 gm In 50 Sodium Chloride 0.9% 50 ml @ 100 mls/hr IVPB HS [facility] Rx#:[id number] Invasive Line 5 30 10 20 Oral 480 600 780 Blood Product 310 Rc As-1 Unit 310 [id number] Output: Urine 700 800 Other: Voiding Method Indwelling Catheter Indwelling Catheter Indwelling Catheter # Bowel Movements 1 1 ABP, PAP, CO, CI - Last Documented Arterial Blood Pressure 128/42 - Exam patient is awake and following commands. Examination of the heart S1 and S2 Examination of the lungs bilateral breath sounds are heard Abdomen is soft nontender Examination of lower extremities shows edema 2+. significant scrotal edema - Labs CBC & Chem 7: 11/03/24 06:28 11/03/24 06:28 Labs: Abnormal Lab Results - Last 24 Hours (Table) 11/02/24 11/02/24 11/02/24 Range/Units 08:03 16:22 20:34 RBC (4.30-5.90) m/uL Hgb (13.0-17.5) gm/dL Hct (39.0-53.0) % MCV (80.0-100.0) fL RDW (11.5-15.5) % Sodium (137-145) mmol/L BUN (9-20) mg/dL Creatinine (0.66-1.25) mg/dL Glucose (74-99) mg/dL POC Glucose (mg/dL) 218 H 352 H (70-110) mg/dL Calcium (8.4-10.2) mg/dL Magnesium (1.6-2.3) mg/dL Crossmatch See Detail 11/02/24 11/03/24 11/03/24 Range/Units 23:21 05:44 06:28 RBC 2.28 L (4.30-5.90) m/uL Hgb 7.5 L (13.0-17.5) gm/dL Hct 23.6 L (39.0-53.0) % MCV 103.2 H (80.0-100.0) fL RDW 16.7 H (11.5-15.5) % Sodium (137-145) mmol/L BUN (9-20) mg/dL Creatinine (0.66-1.25) mg/dL Glucose (74-99) mg/dL POC Glucose (mg/dL) 243 H 314 H (70-110) mg/dL Calcium (8.4-10.2) mg/dL Magnesium (1.6-2.3) mg/dL Crossmatch 11/03/24 11/03/24 Range/Units 06:28 11:40 RBC (4.30-5.90) m/uL Hgb (13.0-17.5) gm/dL Hct (39.0-53.0) % MCV (80.0-100.0) fL RDW (11.5-15.5) % Sodium 134 L (137-145) mmol/L BUN 59 H (9-20) mg/dL Creatinine 5.11 H (0.66-1.25) mg/dL Glucose 236 H (74-99) mg/dL POC Glucose (mg/dL) 241 H (70-110) mg/dL Calcium 8.0 L (8.4-10.2) mg/dL Magnesium 1.3 L (1.6-2.3) mg/dL Crossmatch Assessment and Plan Assessment: 1. Acute kidney injury secondary to ATN secondary to septic shock and rhabdomyolysis. Creatinine 3.18 on admission and is improved to 0.9 -1.0. Seru m creatinine has been increasing again and seems to have stabilized. Concern for acute interstitial nephritis as etiology for second rise in creatinine. Urine eosinophils is positive at 7. Urine output is improved. No hydronephrosis noted on kidney ultrasound. 2. Rhabdomyolysis secondary to immobility. CK levels trending down. 3. Strep bacteremia on antibiotics. 4. Anion gap metabolic acidosis secondary to acute kidney injury and lactic acidosis.improved. 5. Hyponatremia secondary to hypovolemia as well as acute kidney injury. Better. 6. Hypomagnesemia from poor intake and alcohol abuse. Replaced. 7. History of alcohol abuse. 8. Hypocalcemia, replaced. 25-hydroxy vitamin D was 26.5, started on supplementation. PTH appropriately increased. 9. Hypokalemia from poor intake. Replaced. Better. 10. A-fib with RVR status post amiodarone drip. 11. Volume overload with significant scrotal edema Plan: continue prednisone for possible acute interstitial nephritis continue with midodrine continue with IV Lasix. I would avoid contrast with MRI given the worsening renal function Repeat labs in a.m. Continue to monitor for need for renal replacement therapy. Patient will need kidney biopsy if there is no improvement in renal function with prednisone.
--- NOTE | 2024-11-03 14:41 | P.PN ---
Subjective Progress Note Date: 11/03/24 Principal diagnosis: Reason for follow-up is Streptococcus agalactiae bacteremia Patient is a 64-year-old male past medical history significant for diabetes mellitus hypertension hyperlipidemia [place] osteoarthritis coronary disease patient was brought into the hospital after apparently the patient was found to be facedown on the ground with contusion to his forehead and abrasion to his knee and some bloody toes, patient did have a fever subsequently blood cultures came back positive with Streptococcus agalactiae prompting this consultation. Patient noticed to have swelling of the right knee aspirate was purulent subsequently the patient did have a right knee washout completed by orthopedics on 10/10/2024. On today's evaluation that is 11/03/2024, Patient is afebrile patient is currently on 2 L nasal cannula oxygen and denies having any shortness of breath, the patient denies any chest pain or cough, the patient denies any nausea vomiting did not have any abdominal pain and no diarrhea. Patient white count 6.1, creatinine is 5.11 Objective - Vital Signs Vital signs: Vital Signs Temp 98.5 F 11/03/24 11:08 Pulse 81 11/03/24 13:05 Resp 18 11/03/24 11:08 BP 126/69 11/03/24 11:08 Pulse Ox 92 L 11/03/24 11:08 FiO2 4 10/28/24 04:00 Intake & Output 11/02/24 11/03/24 11/03/24 18:59 06:59 18:59 Intake Total 820 660 800 Output Total 700 800 Balance 120 -140 800 Weight 94.5 kg Intake: IV 30 60 20 Ertapenem 0.5 gm In 50 Sodium Chloride 0.9% 50 ml @ 100 mls/hr IVPB [facility] Rx#:[id number] Invasive Line 5 30 10 20 Oral 480 600 780 Blood Product 310 Rc As-1 Unit 310 [id number] Output: Urine 700 800 Other: Voiding Method Indwelling Catheter Indwelling Catheter Indwelling Catheter # Bowel Movements 1 1 ABP, PAP, CO, CI - Last Documented Arterial Blood Pressure 128/42 - Exam GENERAL DESCRIPTION: Middle-age male lying in bed in no distress RESPIRATORY SYSTEM: Unlabored breathing , coarse breath sounds bilaterally HEART: S1 S2 regular rate and rhythm , ABDOMEN: Soft , no tenderness EXTREMITIES: Swelling to the lower extremity and right knee but no redness - Labs CBC & Chem 7: 11/03/24 06:28 11/03/24 06:28 Labs: Abnormal Lab Results - Last 24 Hours (Table) 11/02/24 11/02/24 11/02/24 Range/Units 08:03 16:22 20:34 RBC (4.30-5.90) m/uL Hgb (13.0-17.5) gm/dL Hct (39.0-53.0) % MCV (80.0-100.0) fL RDW (11.5-15.5) % Sodium (137-145) mmol/L BUN (9-20) mg/dL Creatinine (0.66-1.25) mg/dL Glucose (74-99) mg/dL POC Glucose (mg/dL) 218 H 352 H (70-110) mg/dL Calcium (8.4-10.2) mg/dL Magnesium (1.6-2.3) mg/dL Crossmatch See Detail 11/02/24 11/03/24 11/03/24 Range/Units 23:21 05:44 06:28 RBC 2.28 L (4.30-5.90) m/uL Hgb 7.5 L (13.0-17.5) gm/dL Hct 23.6 L (39.0-53.0) % MCV 103.2 H (80.0-100.0) fL RDW 16.7 H (11.5-15.5) % Sodium (137-145) mmol/L BUN (9-20) mg/dL Creatinine (0.66-1.25) mg/dL Glucose (74-99) mg/dL POC Glucose (mg/dL) 243 H 314 H (70-110) mg/dL Calcium (8.4-10.2) mg/dL Magnesium (1.6-2.3) mg/dL Crossmatch 11/03/24 11/03/24 Range/Units 06:28 11:40 RBC (4.30-5.90) m/uL Hgb (13.0-17.5) gm/dL Hct (39.0-53.0) % MCV (80.0-100.0) fL RDW (11.5-15.5) % Sodium 134 L (137-145) mmol/L BUN 59 H (9-20) mg/dL Creatinine 5.11 H (0.66-1.25) mg/dL Glucose 236 H (74-99) mg/dL POC Glucose (mg/dL) 241 H (70-110) mg/dL Calcium 8.0 L (8.4-10.2) mg/dL Magnesium 1.3 L (1.6-2.3) mg/dL Crossmatch Assessment and Plan (1) Sepsis Current Visit: Yes Status: Acute Code(s): A41.9 - SEPSIS, UNSPECIFIED ORGANISM SNOMED Code(s): 54915032 (2) Streptococcal bacteremia Current Visit: Yes Status: Acute Code(s): R78.81 - BACTEREMIA; B95.5 - UNSP STREPTOCOCCUS THE CAUSE OF DISEASES CLASSD [facility] SNOMED Code(s): 98832 [id number] Plan: 1patient presented to the hospital with sepsis in this patient who did have fever tachycardia elevated white count and now with evidence of streptococcal bacteremia which is usually of skin and soft tissue origin 2-patient noticed to have right knee effusion has been evaluated by orthopedics and is status post aspiration with purulent drainage subsequently did have right knee washout by orthopedic cultures are pending may need further workup includin g MRI of the spine when stable. Ortho is following the patient closely 3patient right knee fluid culture also came back positive with group A strep 4-patient did have left-sided pneumonia patient required reintubation and also status post bronchoscopy and lavage sputum culture so far negative, initial culture growing Enterobacter that is sensitive to cefepime/ertapenem patient subsequently has been successfully extubated 5the patient remains to be afebrile white count has been normal, 6- patient is afebrile white count is normal, 7patient is currently treated ertapenem 500 mg daily along with Diflucan, and continue supportive care Dictation was produced using [employer] dictation software. please excuse any grammatical, word or spelling errors. Time with Patient: Less than 30
[2024-11-03 16:45] LABS: Glucose,Whole Blood 234 mg/dL (70-110)
--- NOTE | 2024-11-03 19:12 | P.PN ---
Subjective Progress Note Date: 11/03/24 Progress Note Date: 10/31/24 64-year-old male who is being seen in the ICU due to hypovolemic shock and rhabdomyolysis. He is a poor historian due to altered mental status and un responsiveness. All history is obtained from the chart. He initially presented to the emergency department after being found facedown on the ground with a contusion to his forehead and abrasions to his knee and left toes. She stated that he had been having nausea and vomiting for a day prior to being found down. He was noted to have diarrhea as well. Patient is a daily drinker and consumes about a fifth per day according to the notes he has not drank for the 2 days prior to this admission. He also has a history of type 1 diabetes mellitus. Initial EKG showed sinus tachycardia. Head/cervical spine CT showed no acute intracranial process and no acute fracture or traumatic subluxation of the cervical spine. Initial chest x-ray showed right middle lobe scarring/atelectasis, no acute pulmonary process. He had received 4 L of normal saline. Initial labs showed CK level of 18,113, WBCs 10.7, hemoglobin 12.5, sodium 126, creatinine 3.18 lactic acid 6.9, AST 401, ALT 65. Preliminary blood culture showed gram-positive cocci and patient was started on vancomycin. 24-hour interval change 10/12/2024 -- Patient is evaluated in the ICU. He remains intubated on mechanical ventilation - ABG shows pH 7.42, pCO2 38, pO2 74. - He is maintained on vasopressin 0.02 units/min, normal saline at 20 cc/h, IV hydrocortisone 50 mg every 6 hours, and Kefzol day 5. Labs are reviewed WBCs 17.4, hemoglobin 8.2, hematocrit 25.2, platelets 53, sodium 142, potassium 3.7, chloride 116, CO2 23, BUN 39, creatinine 1.18, glucose 258. Ionized calcium 4.4. Magnesium 1.8. Today's chest x-ray is unchanged. Wound culture gram stain of the right knee preliminary report shows rare gram positive cocci. 10/13/2024 Patient is seen and evaluated in ICU at bedside; remains on the mechanical ventilator. Discussed with nursing staff. Concerns about elevated blood sugars; patient was placed on home dose of Lantus which did not help much - Blood gases show pO2 72, pCO2 41, and pH is 7.42. - The patient is on propofol at 35 mcg/kg/min, saline at 20 cc an hour, and vital high-protein at 60, with goal of 70. Yesterday, he had a brief spontane ous breathing trial, and he did poorly. Today he will again have a spontaneous breathing trial, of pressure support of 5 and CPAP of 5. He continues on Ancef. White count 18.8, hemoglobin 8.2, hematocrit 25.8, platelet count 78,000. Sodium 144, potassium 4.1, chlorides 117, CO2 26, BUN 47, creatinine 1.18. Glucose is 340. Albumin is 2.1. Previous blood cultures from October 06 show group A streptococci. Chest x-ray shows bibasilar infiltrates. -- For hyperglycemia I will increase dose of Lantus and add insulin lispro every 4 hours; continue with current sliding scale 10/14/2024 Patient is seen in follow-up today continues on Precedex and attempting to wean maintained on mechanical ventilation with an FiO2 of 50% PEEP is 5. Per nursing staff attempting sedation holiday although did not go well yesterday. Patient is maintained on antibiotics with infectious disease following and patient is status post right knee aspiration with preliminary culture showing strep a with positive blood cultures. Patient continues with significant swelling especially the scrotal area maintained on IV Lasix and will continue. No discussion of PEG and trach as of yet and patient remains full code. Prognosis is guarded. 10/15/2024 Patient is seen this morning continues to be in the ICU currently working on weaning FiO2 and undergoing sedation holiday. Patient is eye tracking and foll owing commands and per pulmonary algorithm developer working on extubation today. Will await official report and monitor closely. Patient is continued on antibiotics with infectious disease following. 10/16/2024 Patient is seen in follow-up this morning extubated successfully currently maintained on 6 L high flow nasal cannula. Patient is awake and responding appropriately to questions and commands. Patient is extremely lethargic at times and significantly weak with significant edema noted. Sodium is elevated at 150 and is continued on D5 and water. Blood sugars have been elevated and will adjust insulins accordingly. Patient swallow eval performed and failed awaiting reevaluation with speech. Continue n.p.o. for now. White count remains elevated patient is maintained on antibiotics with infectious disease following. Awaiting repeat cultures. Procalcitonin 1.06. Questions and rahat rns were answered to the best of my ability with son at the bedside. 10/17/2024 Patient is evaluated today in follow up in the ICU. He was extubated yesterday. Continues on oxygen support on 100% BiPAP at this time. Cultures from the right knee arthroscopy reveals Strep A. Chest xray today reveals no change to the bibasilar opacities. Chest ultrasound reveals right pleural effusion pocket size 6.0 cm and left pleural effusion pocket size of 4.9 cm. Both sides marked for possible thoracentesis. Labs today reveal white blood cell count of 11.8, hgb 7.5, sodium 146, potassium 3.4, BUN 43, creatinine 1.06. Blood glucose 200s. Continues on IV amiodarone, IV cefepime, IV vancomycin. Patient is in normal sinus rhythm currently heart rate in the 80s. 10/18/2024 Patient evaluated today in follow up in the ICU. He is awake alert oriented continues on BiPAP. He is status post right sided thoracentesis with 400 mL off. Chest xray today reveals stable bilateral lower lobe infiltrate and small pl eural effusion. White blood cell count today 10.4. Continues on IV vancomycin and IV cefepime. Remains on IV amiodarone. on IV heparin. Patient remains NPO at this time, speech therapy to follow up today to reassess. 10/19/2024 Patient remains in the ICU. He is on the mechanical ventilator, FiO2 of 50%. Chest x-ray today shows left lower lobe pneumonia and/or atelectasis and pleural effusion. Elian in the left lung base is obscuring the left heart border and the hemidiaphragm has decreased in the interval. White blood cell count today is 8.4, hemoglobin 7.1, sodium 144, BUN of 40, creatinine of 1.43. His viral panel is negative for all viruses checked. 10/20/2024 Patient remains the intensive care unit he is currently on mechanical ventilator with an FiO2 of 50%. He is awake and alert and responding to commands. His chest x-ray reveals continued acute coronary cardiopulmonary disease involving the retrocardiac region with no significant interval change. Repeat sputum reveals Enterobacter he continues on IV cefepime at this time. Hemoglobin level today is 6.7 he will receive 1 unit of packed red blood cells. His creatinine is up to 1.51 today. Continues on oral amiodarone for the atrial fibrillation was taken off of anticoagulation secondary to the decreased hemoglobin. Patient is sedated with propofol at this time. He is also receiving IV Lasix daily prognosis remains guarded. 10/21/2024 Patient remains in the intensive care unit. Remains on the mechanical neville tilator. He is currently sedated with propofol. He is alert and following commands. Chest xray unchanged continues to show pneumonia with sputum culture showing enterobacter. He remains on IV cefepime. Hemoglobin better today at 7.8. BUN 42 creatinine 1.67. 10/22/2024 Patient is evaluated today in the intensive care unit. Patient was extubated today. He is awake alert and oriented. He is complaining of some back pain. Has IV dilaudid on board. Chest xray today reveals no evidence of pleural effusion, focal consolidation, or pneumothorax. He remains edematous. Creatinine 1.87 today. On IV lasix which has been increased to BID by nephrology. 3L of urine output in the last 24 hours. 10/23/2024 Patient evaluated today in follow up in the ICU. Currently on 2L of oxygen via nasal cannula with saturations of 99%. Remains on IV cefepime. Chest xray today reveals left lung airspace opacity. Creatinine up to 2.1 today IV lasix has been discontinued. Patient has been placed on normal saline at 75 mls/hr. Speech therapy re consulted for swallow evaluation post extubation. 10/24/2024 Patient evaluated today in follow up remains in the ICU. Patient underwent neuro evaluation today. Brain CT was done revealing no acute bleed or mass effect. Mild age-appropriate senescent changes. Marked calcification of basal artery and significant stenosis cannot be excluded. Mild to moderate fluid in the mastoid air cells bilaterally. BUN 46 creatinine 2.12. Continues on normal saline at 75 mls/hr. Continues on IV cefepime. 10/25/2024 Patient remains in the ICU with multiple consultations following. Patient continues to be encephalopathic with neurology following. Orthopedics to reevaluate the upper extremity weakness and also vascular surgery was consulted as there is concerns of occlusive disease of the left lower extremity with discoloration of the toes. Patient continues on antibiotics and continues to require 2 L of oxygen. Patient is maintained on dysphagia ground diet and strongly recommend aspiration precautions and supervision with meals along with head of the bed elevated 30 to 45 degrees at all times. Patient is currently afebrile with no reports of chest pain or shortness of breath. 1 dose of IV Lasix was given today. 10/26/2024 Patient remains in the ICU. Continues to be confused and more lethargic today. Neurology following and felt this was encephalopathy. He is not using this right arm and he does have pain when touching that arm. It is edematous.Vascular e valated the patient for the left diabetic foot wounds which have dry gangrene and did not feel there was ischemia to the leg. He remains on 2L of oxygen via nasal cannula. Labs today hemoglobin 7.3, BUN 51, creatinine 2.66. Remains on IV cefepime which can also cause confusion. 10/27/2024 Patient evaluated in follow-up in the intensive care unit. He is currently sitting up in the chair family at the bedside. He is more awake alert and oriented he is able to state his name and birthday. He does continue to have significant right upper extremity weakness and also mild right lower extremity weakness. This was discussed with neurology and as his mentation has improved brain and cervical neck MRI are both ordered for tomorrow. His creatinine today is 3.0. He has been taken off of the normal saline and also remains off diuretics. Patient was transition to IV ertapenem taken off of the cefepime at this time. Chest x-ray shows no change in the left lung opacification and probable small pleural effusion. Development of a small right pleural effusion. 10/28/2024 Patient is seen in the ICU with multiple consultations following lethargic although arousable awaiting a transfer out of the ICU once a bed on 3 S. becomes available. Patient is awake although fatigues easily. Patient reports he is eating although not eating much and continues to have weakness. Recommend PT/OT therapy daily. Awaiting cervical neck MRI which has been pending for quite some time. Kidney functions worsening and 3.6 today. Blood pressures are soft and patient was given a dose of Lasix yesterday. Urine output remains marginal and will be monitored closely. Recommend strict intake and output monitoring and documenting. Midodrine being added per nephrology and will follow-up on repeat labs. Patient continues on ertapenem with infectious disease following. Blood sugars have been on the lower side and will adjust insulins and continue with sliding scale with Accu-Cheks before meals and at bedtime. Patient currently denies chest pain or worsening shortness of breath and is currently maintained on 3 L via nasal cannula and oxygen saturations have been above 94%. 10/29/2024 Patient evaluated today on the medical floor as a movement of the intensive care unit. He is able to sit at the edge of the bed today and will continue to work with PT OT daily. He will need subacute rehab on discharge. He is still awaiting a brain and cervical neck MRI unsure if he can have an MRI due to the surgical plates in his neck discussed this with nursing. Also discussed with orthopedics that he is unable to get contrast due to the renal dysfunction and per Dr. Foss group the MRI needs to be with contrast and we will hold off on the lumbar MRI with and without contrast at this time. Did undergo barium swallow and is on pured diet with nectar thick liquids. He remains off of the IV cefepime at this time and currently on IV ertapenem. He remains on IV Lasix daily. 10/30/2024 Patient evaluated in follow-up on the medical floor. He has been moved out of the the intensive care unit. He is sitting up in the chair. He continues with significant right-sided weakness. Underwent brain MRI with no evidence of an acute stroke at this time. Follow-up with orthopedics that he is unable to get this lumbar MRI with and without contrast. Creatinine up to 4.46 today. He is on IV Lasix daily. 10/31/2024 Patient is seen in follow-up today currently sitting up in the chair and has worked with physical therapy reports to being extremely weak. Kidney functions continue to worsen and nephrology following closely and is continued on IV Lasix daily. Patient is making urine although attempted trial void yesterday and retained over 800 and Hinson catheter was placed again. Will add Flomax and monitor intake and output closely. Discussing renal replacement daily although holding off today. Will follow-up with repeat labs. Patient denies worsening shortness of breath and reports is improving daily. Patient reports is tolerating diet with no reported nausea or vomiting. 11/01/2024 Patient evaluated in follow up today sitting up in the chair. Continues with significant weakness and more pronounced on the right. He continues on IV lasix daily. Remains edematous. BUN up to 60 and creatinine of 4.93 today. He has had about 1.6 L of fluid off in the last 24 hours. He continues on IV ertapenem. 11/02/2024 No acute events overnight. Remains on IV ertapenem. Hgb today 6.9, no evidence for active bleeding. Sodium 134, BUN 59, creatinine 5.24. Continues with indwelling hinson catheter. 11/03/2024 Patient is eval today in follow-up in the medical floor. No acute complaints overnight. He is resting comfortably today his hemoglobin is better at 7.5 post 1 unit of packed red blood cells. Labs today reveal a BUN of 59 creatinine of 5.11. There is concern for interstitial nephritis he remains on oral prednisone. Review of systems: Constitutional: reports of fatigue, no fever, or chills Cardiovascular: No reports of chest pain or palpitations Respiratory: No reports of worsening shortness of breath reports continued weak cough GI: No reports of nausea, vomiting, or diarrhea, : No reports of dysuria or retention Neurovascular: reports of generalized weakness and continued swelling of upper and lower extremities that is slightly improved All medications have been reviewed Physical exam: Gen: This is a 64-year-old male who is maintained on 3 L nasal cannula., well- developed, elderly appearing, ill-appearing, appears older than stated age, HEENT: Head is atraumatic, normocephalic. Pupils equal, round. Sclerae is anicteric. NECK: Supple. No JVD. No lymphadenopathy. No thyromegaly. LUNGS: Diminished breath sounds bilaterally with some bronchial congestion and coarse scattered rhonchi. No intercostal retractions. HEART: S1, S2 are muffled ABDOMEN: Soft. Somewhat taut, positive bowel sounds are present. No masses. No tenderness. Significant scrotal edema noted, minimally improved EXTREMITIES: Bilateral upper and lower extremity edema noted. No calf tenderness. Generalized upper and lower extremity edema along with scrotal swelling noted Right upper extremity weakness. NEUROLOGICAL: Patient is awake, alert and oriented x 2, diffusely weak Assessment: -Chronic alcohol abuse with acute alcohol withdrawal syndrome; Thiamine and protonix. No longer going through acute withdrawals. -Altered mental status acute metabolic and septic encephalopathy. Brain CT reveals no acute stroke. Patient continues to have right upper and lower extremity weakness. Unable to officially rule out stroke. -Acute hypoxic respiratory failure was intubated following knee surgery on 10/10 and successfully extubated on 10/15/24. re-intubated on 10/18/2024 and now extubated on 10/22/24. Status post bronchoscopy on 10/18. -Congestive heart failure with an EF of 45%, diastolic dysfunction -Paroxysmal atrial fibrillation transitioned to oral amiodarone Currently on subq heparin. Was taken off IV heparin due to decreased hemoglobin -Acute blood loss anemia requiring transfusion, hgb was stable down to 6.9 today and will receive 1 unit PRBC -Right sided pleural effusion status post right sided thoracentesis with 400 mL off. -Oral thrush -Rhabdomyolysis secondary to immobility due to fall. Improving with IV hydration. We will continue to monitor strict STERLING's, daily weights, renal function electrolytes -Acute kidney injury secondary to ATN due to to septic shock and rhabdomyolysis. Was initially improving and now with worsening renal function, nephrology following with no immediate plans for renal replacement although has been discussing the possible need for is kidney functions continue to worsen. Patient is making good urine output although was retaining and did require Hinson catheter to be replaced. Will add Flomax. There is concern for possible underlying interstitial nephritis patient was started on oral prednisone. -Relative adrenal insufficiency. On IV hydrocortisone. -Transaminitis. Improving. -Streptococcus group A bacteremia. Currently on ertapenem per ID recommendation; continue to monitor CBC, CRP and procalcitonin. Possibly secondary to right knee infection -Right knee pain with swelling, status post aspiration along with arthroscopic lavage, culture showing strep a with septic arthritis -Hyponatremia, likely hypovolemic; resolved. -Episode of hypernatremia treated with D5W, sodium normalized. This was due to free water deficit. 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 -History of coronary artery disease with previous catheterization and stent placement. -Hypertension; currently not on any antihypertensive medication. -Sepsis, present on admission possibly secondary to right knee arthritis with bacteremia GI prophylaxis DVT prophylaxis No code Plan: status post arthroscopy with lavage of the right knee and final cultures showing Strep A. Currently on ertapenem per ID recommendations and cefepime has been discontinue d. Repeat blood cultures thus far are negative and will continue on IV antibiotics with ID following Sputum culture showing Enterobacter patient is status post bronchoscopy sputum cultures are now negative Speech therapy has been reconsulted post extubation and is maintained on a dysphagia ground diet and strongly recommend aspiration precautions with supervision with meals and head of the bed elevated 30 to 45 degrees at all times Blood sugars variable and have been steadily increasing and will adjust insulins including increasing long-acting slightly. Continue with Accu-Cheks before agueda ls and at bedtime and sliding scale Follow-up on repeat labs and monitor kidney functions and electrolytes closely. Nephrology following closely discussing possible renal replacement and recommend monitoring urine output closely Orthopedics did recommend lumbar spine MRI with and without contrast although patients renal function now with creatinine of 4.46 he is unable to get oral contrast at this time. Physical therapy and occupational therapy have been re-consulted. And recommend evaluating daily as patient is significantly weak and has had prolonged hospitalization. Patient requesting [place] on discharge when medically stable. Repeat blood work in the AM Overall prognosis remains guarded at this time The impression and plan of care has been dictated by Sharlene Pendleton, Nurse Practitioner as directed. Dr. Randall MD I have performed a history and examination and MDM of this patient, discussed the same with the dictator, and agree with the dictator's assessment and plan as written ,documented as a scribe. Based on total visit time, I have performed more than 50% of the visit. Objective - Vital Signs Vital signs: Vital Signs Temp 98.5 F 11/03/24 08:28 Pulse 82 11/03/24 08:29 Resp 18 11/03/24 08:28 BP 123/65 11/03/24 08:28 Pulse Ox 95 11/03/24 08:28 FiO2 4 10/28/24 04:00 Intake & Output 11/02/24 11/03/24 11/03/24 18:59 06:59 18:59 Intake Total 820 660 430 Output Total 700 800 Balance 120 -140 430 Weight 94.5 kg Intake: IV 30 60 10 Ertapenem 0.5 gm In 50 Sodium Chloride 0.9% 50 ml @ 100 mls/hr IVPB HS PITO Rx#:[id number] Invasive Line 5 30 10 10 Oral 480 600 420 Blood Product 310 Rc As-1 Unit 310 [id number] Output: Urine 700 800 Other: Voiding Method Indwelling Catheter Indwelling Catheter Indwelling Catheter # Bowel Movements 1 1 ABP, PAP, CO, CI - Last Documented Arterial Blood Pressure 128/42 - Labs CBC & Chem 7: 11/03/24 06:28 11/03/24 06:28 Labs: Abnormal Lab Results - Last 24 Hours (Table) 11/02/24 11/02/24 11/02/24 Range/Units 08:03 11:34 16:22 RBC (4.30-5.90) m/uL Hgb (13.0-17.5) gm/dL Hct (39.0-53.0) % MCV (80.0-100.0) fL RDW (11.5-15.5) % Sodium (137-145) mmol/L BUN (9-20) mg/dL Creatinine (0.66-1.25) mg/dL Glucose (74-99) mg/dL POC Glucose (mg/dL) 213 H 218 H (70-110) mg/dL Calcium (8.4-10.2) mg/dL Magnesium (1.6-2.3) mg/dL Crossmatch See Detail 11/02/24 11/02/24 11/03/24 Range/Units 20:34 23:21 05:44 RBC (4.30-5.90) m/uL Hgb (13.0-17.5) gm/dL Hct (39.0-53.0) % MCV (80.0-100.0) fL RDW (11.5-15.5) % Sodium (137-145) mmol/L BUN (9-20) mg/dL Creatinine (0.66-1.25) mg/dL Glucose (74-99) mg/dL POC Glucose (mg/dL) 352 H 243 H 314 H (70-110) mg/dL Calcium (8.4-10.2) mg/dL Magnesium (1.6-2.3) mg/dL Crossmatch 11/03/24 11/03/24 Range/Units 06:28 06:28 RBC 2.28 L (4.30-5.90) m/uL Hgb 7.5 L (13.0-17.5) gm/dL Hct 23.6 L (39.0-53.0) % MCV 103.2 H (80.0-100.0) fL RDW 16.7 H (11.5-15.5) % Sodium 134 L (137-145) mmol/L BUN 59 H (9-20) mg/dL Creatinine 5.11 H (0.66-1.25) mg/dL Glucose 236 H (74-99) mg/dL POC Glucose (mg/dL) (70-110) mg/dL Calcium 8.0 L (8.4-10.2) mg/dL Magnesium 1.3 L (1.6-2.3) mg/dL Crossmatch Assessment and Plan Time with Patient: Less than 30
[2024-11-03 21:00] LABS: Glucose,Whole Blood 268 mg/dL (70-110)
[2024-11-04 06:07] LABS: Glucose,Whole Blood 144 mg/dL (70-110)
[2024-11-04 07:16] LABS: Basophils % (A) 0 %; Eosinophils % (A) 0 %; HCT 24.6 % (39.0-53.0); HGB 7.8 gm/dL (13.0-17.5); Hypochromasia Moderate; Lymphocytes # (A) 1.4 k/uL (1.0-4.8); Lymphocytes % (A) 19 %; MCH 32.7 pg (25.0-35.0); MCHC 31.7 g/dL (31.0-37.0); MCV 103.2 fL (80.0-100.0); Macrocytosis Moderate; Mean Platelet Volume 8.1; Monocytes # (A) 0.5 k/uL (0-1.0); Monocytes % (A) 7 %; Neutrophils # (A) 5.5 k/uL (1.3-7.7); Neutrophils % (A) 73 %; Platelet Count 390 k/uL (150-450); RBC 2.38 m/uL (4.30-5.90); RDW 15.8 % (11.5-15.5); WBC 7.5 k/uL (3.8-10.6)
[2024-11-04 07:24] LABS: ALT 8 U/L (4-49); AST 17 U/L (17-59); African American GFR (CKD) 14 (>60 ml/min/1.73 sqM); Albumin 2.3 g/dL (3.5-5.0); Alkaline Phosphatase 87 U/L (38-126); Anion Gap 7 mmol/L; Blood Urea Nitrogen 59 mg/dL (9-20); Calcium 7.9 mg/dL (8.4-10.2); Carbon Dioxide 23 mmol/L (22-30); Chloride 105 mmol/L (98-107); Glucose 121 mg/dL (74-99); Magnesium 1.9 mg/dL (1.6-2.3); Non-African American GFR(CKD) 12 (>60 ml/min/1.73 sqM); Potassium 4.4 mmol/L (3.5-5.1); Sodium 135 mmol/L (137-145); Total Bilirubin 0.3 mg/dL (0.2-1.3); Total Protein 6.1 g/dL (6.3-8.2)
--- NOTE | 2024-11-04 11:08 | XR ---
EXAMINATION TYPE: XR chest 1V DATE OF EXAM: 11/04/2024 10:51 AM COMPARISON: Chest radiographs from 10/27/2024 CLINICAL INDICATION: Male, 64 years old with history of pneumonia; [facility] TECHNIQUE: XR chest 1V Frontal view of the chest. FINDINGS: Lungs/Pleura: Low lung volumes are present. Hazy appearance of the lung bases possibly representing a irspace disease or pleural effusions. There is no evidence of pleural effusion, focal consolidation, or pneumothorax. Pulmonary vascularity: Unremarkable. Heart/mediastinum: Cardiomediastinal silhouette is unremarkable. Musculoskeletal: No acute osseous pathology. IMPRESSION: Low lung volumes with a generalized hazy appearance of the lung base possibly representing bilateral pleural effusions. [facility], , 11/04/2024 11:06 AM
--- NOTE | 2024-11-04 11:14 | P.PN ---
Subjective Patient is seen in follow-up for acute kidney injury. Renal function better. Nonoliguric. On IV Lasix. Oral intake fair. Vital signs are stable. General: No acute distress. HEENT: On nasal cannula. LUNGS: No audible rhonchi or wheezes. HEART: Rate and Rhythm are regular. ABDOMEN: No distention. EXTREMITITES: 1+ edema. Objective - Vital Signs Vital signs: Vital Signs Temp 98.2 F 11/04/24 08:25 Pulse 80 11/04/24 08:25 Resp 16 11/04/24 08:25 BP 117/64 11/04/24 08:25 Pulse Ox 94 L 11/04/24 08:25 FiO2 4 10/28/24 04:00 Intake & Output 11/03/24 11/04/24 11/04/24 18:59 06:59 18:59 Intake Total 1100 130 118 Output Total 600 425 Balance 500 -295 118 Weight 93 kg Intake: IV 20 10 Invasive Line 5 20 10 Oral 1080 120 118 Output: Urine 600 425 Other: Voiding Method Indwelling Catheter Indwelling Catheter Indwelling Catheter ABP, PAP, CO, CI - Last Documented Arterial Blood Pressure 128/42 - Labs CBC & Chem 7: 11/04/24 06:14 11/04/24 06:14 Labs: Abnormal Lab Results - Last 24 Hours (Table) 11/03/24 11/03/24 11/03/24 Range/Units 11:40 16:43 20:12 RBC (4.30-5.90) m/uL Hgb (13.0-17.5) gm/dL Hct (39.0-53.0) % MCV (80.0-100.0) fL RDW (11.5-15.5) % Sodium (137-145) mmol/L BUN (9-20) mg/dL Creatinine (0.66-1.25) mg/dL Glucose (74-99) mg/dL POC Glucose (mg/dL) 241 H 234 H 268 H (70-110) mg/dL Calcium (8.4-10.2) mg/dL Total Protein (6.3-8.2) g/dL Albumin (3.5-5.0) g/dL 11/04/24 11/04/24 11/04/24 Range/Units 06:05 06:14 06:14 RBC 2.38 L (4.30-5.90) m/uL Hgb 7.8 L (13.0-17.5) gm/dL Hct 24.6 L (39.0-53.0) % MCV 103.2 H (80.0-100.0) fL RDW 15.8 H (11.5-15.5) % Sodium 135 L (137-145) mmol/L BUN 59 H (9-20) mg/dL Creatinine 4.77 H (0.66-1.25) mg/dL Glucose 121 H (74-99) mg/dL POC Glucose (mg/dL) 144 H (70-110) mg/dL Calcium 7.9 L (8.4-10.2) mg/dL Total Protein 6.1 L (6.3-8.2) g/dL Albumin 2.3 L (3.5-5.0) g/dL Assessment and Plan Plan: Assessment: 1. Acute kidney injury secondary to ATN secondary to septic shock and rhabdomyolysis. Creatinine 3.18 on admission and improved to 0.89 dated October 16, 2024 -worsened with diuresis. Also concern for interstitial nephritis with urine eosinophils at 7%. Started on prednisone November 01, 2024. Serologies negative except for positive serum immunofixation. No hydronephrosis noted on kidney ultrasound. 2. Rhabdomyolysis secondary to immobility. Resolved. 3. Strep bacteremia on antibiotics. Being treated for pneumonia. Status post bronchoscopy October 18, 2024. ID following. 4. Anion gap metabolic acidosis secondary to acute kidney injury and lactic acidosis. Now due to IV fluids. Status post bicarb drip. Improved. 5. Hypernatremia from lack of oral water intake. Status post D5W. Resolved. 6. Hypomagnesemia from poor intake and diuresis. Replaced. Better. 7. History of alcohol abuse. 8. Hypocalcemia secondary to acute kidney injury as well as intracellular shifting from bicarb. PTH 112. Vitamin D level 26.5. On vitamin D. Corrected calcium in the normal range. 9. A-fib with RVR maintained on amiodarone and Lopressor. 10. Volume overload. On IV Lasix. 11. Acute blood loss anemia status post blood transfusion this admission. Hemoglobin stable. Plan: Maintain IV Lasix. Maintain prednisone. Avoid nephrotoxins. Continue to monitor renal function and urine output. Serologies negative except for positive serum immunofixation. Will consult oncology. Will need kidney biopsy if no improvement in renal function over the next 1 to 2 weeks.
[2024-11-04 11:40] LABS: Glucose,Whole Blood 180 mg/dL (70-110)
--- NOTE | 2024-11-04 12:35 | P.PN ---
Subjective Progress Note Date: 11/04/24 Principal diagnosis: Reason for follow-up is Streptococcus agalactiae bacteremia Patient is a 64-year-old male past medical history significant for diabetes mellitus hypertension hyperlipidemia OK osteoarthritis coronary disease patient was brought into the hospital after apparently the patient was found to be facedown on the ground with contusion to his forehead and abrasion to his knee and some bloody toes, patient did have a fever subsequently blood cultures came back positive with Streptococcus agalactiae prompting this consultation. Patient noticed to have swelling of the right knee aspirate was purulent subsequently the patient did have a right knee washout completed by orthopedics on 10/10/2024. On today's evaluation that is 11/04/2024, patient has been afebrile, patient is breathing comfortably and is currently on 3 L current oxygen, patient denies having any worsening cough no chest pain, patient denies nausea vomiting or diarrhea and no abdominal pain. Patient white count 7.5, creatinine is 4.77 Objective - Vital Signs Vital signs: Vital Signs Temp 98.2 F 11/04/24 08:25 Pulse 80 11/04/24 08:25 Resp 16 11/04/24 08:25 BP 117/64 11/04/24 08:25 Pulse Ox 94 L 11/04/24 08:25 FiO2 4 10/28/24 04:00 Intake & Output 11/03/24 11/04/24 11/04/24 18:59 06:59 18:59 Intake Total 1100 130 118 Output Total 600 425 475 Balance 500 -295 -357 Weight 93 kg Intake: IV 20 10 Invasive Line 5 20 10 Oral 1080 120 118 Output: Urine 600 425 475 Other: Voiding Method Indwelling Catheter Indwelling Catheter Indwelling Catheter ABP, PAP, CO, CI - Last Documented Arterial Blood Pressure 128/42 - Exam GENERAL DESCRIPTION: Middle-age male lying in bed in no distress RESPIRATORY SYSTEM: Unlabored breathing , coarse breath sounds bilaterally HEART: S1 S2 regular rate and rhythm , ABDOMEN: Soft , no tenderness EXTREMITIES: Swelling to the lower extremity and right knee but no redness - Labs CBC & Chem 7: 11/04/24 06:14 11/04/24 06:14 Labs: Abnormal Lab Results - Last 24 Hours (Table) 11/03/24 11/03/24 11/04/24 Range/Units 16:43 20:12 06:05 RBC (4.30-5.90) m/uL Hgb (13.0-17.5) gm/dL Hct (39.0-53.0) % MCV (80.0-100.0) fL RDW (11.5-15.5) % Sodium (137-145) mmol/L BUN (9-20) mg/dL Creatinine (0.66-1.25) mg/dL Glucose (74-99) mg/dL POC Glucose (mg/dL) 234 H 268 H 144 H (70-110) mg/dL Calcium (8.4-10.2) mg/dL Total Protein (6.3-8.2) g/dL Albumin (3.5-5.0) g/dL 11/04/24 11/04/24 11/04/24 Range/Units 06:14 06:14 11:38 RBC 2.38 L (4.30-5.90) m/uL Hgb 7.8 L (13.0-17.5) gm/dL Hct 24.6 L (39.0-53.0) % MCV 103.2 H (80.0-100.0) fL RDW 15.8 H (11.5-15.5) % Sodium 135 L (137-145) mmol/L BUN 59 H (9-20) mg/dL Creatinine 4.77 H (0.66-1.25) mg/dL Glucose 121 H (74-99) mg/dL POC Glucose (mg/dL) 180 H (70-110) mg/dL Calcium 7.9 L (8.4-10.2) mg/dL Total Protein 6.1 L (6.3-8.2) g/dL Albumin 2.3 L (3.5-5.0) g/dL Assessment and Plan (1) Sepsis Current Visit: Yes Status: Acute Code(s): A41.9 - SEPSIS, UNSPECIFIED O RGANISM SNOMED Code(s): 06822979 (2) Streptococcal bacteremia Current Visit: Yes Status: Acute Code(s): R78.81 - BACTEREMIA; B95.5 - UNSP STREPTOCOCCUS THE CAUSE OF DISEASES [facility] SNOMED Code(s): 672731962141 Plan: 1patient presented to the hospital with sepsis in this patient who did have fever tachycardia elevated white count and now with evidence of streptococcal bacteremia which is usually of skin and soft tissue origin 2-patient noticed to have right knee effusion has been evaluated by orthopedics and is status post aspiration with purulent drainage subsequently did have right knee washout by orthopedic cultures are pending may need further workup including MRI of the spine when stable. Ortho is following the patient closely 3patient right knee fluid culture also came back positive with group A strep 4-patient did have left-sided pneumonia patient required reintubation and also status post bronchoscopy and lavage sputum culture so far negative, initial culture growing Enterobacter that is sensitive to cefepime/ertapenem patient subsequently has been successfully extubated 5the patient remains to be afebrile white count has been normal, will continue treatment with ertapenem 500 mg daily awaiting improvement in his kidney function Dictation was produced using [employer] video dictation software. please excuse any grammatical, word or spelling errors. Time with Patient: Less than 30
--- NOTE | 2024-11-04 14:18 | P.PN ---
Subjective Progress Note Date: 11/04/24 Principal diagnosis: Altered mental status in the setting of sepsis as well as pneumonia rhabdomyolysis, pleural effusion, and atrial fibrillation. Mr. Key is a 64-year-old male with history of coronary artery disease, diabetes, gastropathy reflux disease, hyperlipidemia, hypertension, myocardial infarction, osteoarthritis, arthritis, and paroxysmal atrial fibrill ation. He was admitted to [facility] on October 06 after he was found down at home with a forehead abrasion as well as knee abrasion. He uses alcohol frequently and was noted to be in septic shock from right knee infection. This was critical with group A strep. He also had left lower lobe pneumonia and right pleural effusion with rhabdomyolysis and acute kidney injury. The patient was extubated on October 22 and was seen by neurology on October 24. At that time he was drowsy and oriented x 1 only with following simple commands with generalized weakness. His electroencephalogram was performed October 24 and was noted to be slow. A barium swallow study on October 28 revealed penetration with thin liquids and decreased penetration with nectar. He was noted to be drowsy on October 28 and had elevated creatinine up to 5.5. His MRI of the brain on October 29 revealed a small vessel disease and MRI of the spine revealed disc bulges at C2-C3 with C7 and T1 disc bulges and C6-C7 disc bulges with multilevel neuroforaminal stenosis. The patient's mental status gradually improved over the course of his admission here. At follow-up November 04, the patient mental status appears at his baseline per his son. He is oriented x 3 and is able to follow both simple and complex co mmands. He does note some right greater than left knee pain but other than that has a nonfocal neurologic examination. However, he does have evidence of a mild tremor in the right greater than left upper extremities without cogwheel rigidity to wrist. He has a family history of tremor so this suggests likely benign essential tremor. His lower extremities he can raise only with strength 2-3 out of 5. Assessment: Mr. Key is a 66-year-old male with was admitted with septic knee ar thritis as well as left lower lobe pneumonia, rhabdomyolysis, right pleural effusion, and atrial fibrillation. He had altered mental status initially and an MRI of the brain did not reveal any evidence of acute infarct. His mental status is gradually improving he appears back to baseline at this time. Plan: 1. I will leave it up to the primary team whether to continue anticoagulation with DOACs versus Coumadin for his atrial fibrillation. 2. Regarding the patient's history of essential tremor, I will not place him on beta-blockers at this time but this can be pursued as an outpatient if this is an issue for the patient. He states that compromises his ability to drink fluids. 3. Neurology will sign off the patient at this time. Please reconsult if needed for acute or pressing neurological issues. Objective - Vital Signs Vital signs: Vital Signs Temp 98.2 F 11/04/24 08:25 Pulse 80 11/04/24 08:25 Resp 16 11/04/24 08:25 BP 117/64 11/04/24 08:25 Pulse Ox 94 L 11/04/24 08:25 FiO2 4 10/28/24 04:00 Intake & Output 11/03/24 11/04/24 11/04/24 18:59 06:59 18:59 Intake Total 1100 130 236 Output Total 600 425 475 Balance 500 -295 -239 Weight 93 kg 93 kg Intake: IV 20 10 Invasive Line 5 20 10 Oral 1080 120 236 Output: Urine 600 425 475 Other: Voiding Method Indwelling Catheter Indwelling Catheter Indwelling Catheter ABP, PAP, CO, CI - Last Documented Arterial Blood Pressure 128/42 - Labs CBC & Chem 7: 11/04/24 06:14 11/04/24 06:14 Labs: Abnormal Lab Results - Last 24 Hours (Table) 11/03/24 11/03/24 11/04/24 Range/Units 16:43 20:12 06:05 RBC (4.30-5.90) m/uL Hgb (13.0-17.5) gm/dL Hct (39.0-53.0) % MCV (80.0-100.0) fL RDW (11.5-15.5) % Sodium (137-145) mmol/L BUN (9-20) mg/dL Creatinine (0.66-1.25) mg/dL Glucose (74-99) mg/dL POC Glucose (mg/dL) 234 H 268 H 144 H (70-110) mg/dL Calcium (8.4-10.2) mg/dL Total Protein (6.3-8.2) g/dL Albumin (3.5-5.0) g/dL 11/04/24 11/04/24 11/04/24 Range/Units 06:14 06:14 11:38 RBC 2.38 L (4.30-5.90) m/uL Hgb 7.8 L (13.0-17.5) gm/dL Hct 24.6 L (39.0-53.0) % MCV 103.2 H (80.0-100.0) fL RDW 15.8 H (11.5-15.5) % Sodium 135 L (137-145) mmol/L BUN 59 H (9-20) mg/dL Creatinine 4.77 H (0.66-1.25) mg/dL Glucose 121 H (74-99) mg/dL POC Glucose (mg/dL) 180 H (70-110) mg/dL Calcium 7.9 L (8.4-10.2) mg/dL Total Protein 6.1 L (6.3-8.2) g/dL Albumin 2.3 L (3.5-5.0) g/dL
--- NOTE | 2024-11-04 15:22 | P.PN ---
Subjective Progress Note Date: 11/04/24 Patient is a 64-year-old male who is being seen in the ICU due to hypovolemic shock and rhabdomyolysis. He is a poor historian due to altered mental status and unresponsiveness. All history is obtained from the chart. He initially presented to the emergency department after being found facedown on the ground with a contusion to his forehead and abrasions to his knee and left toes. She stated that he had been having nausea and vomiting for a day prior to being found down. He was noted to have diarrhea as well. Patient is a daily drinker and consumes about a fifth per day according to the notes he has not drank for the 2 days prior to this admission. He also has a history of type 1 diabetes mellitus. Initial EKG showed sinus tachycardia. Head/cervical spine CT showed no acute intracranial process and no acute fracture or traumatic subluxation of the cervical spine. Initial chest x-ray showed right middle lobe scarring/atelectasis, no acute pulmonary process. He had received 4 L of normal saline. Initial labs showed CK level of 18,113, WBCs 10.7, hemoglobin 12.5, sodium 126, creatinine 3.18 lactic acid 6.9, AST 401, ALT 65. Preliminary blood culture showed gram-positive cocci and patient was started on vancomycin. 10/07/2024. He is maintained on a bicarb drip as well as normal saline. He remains unresponsive to verbal stimulation. He is maintained on CIWA protocol. Labs today: WBCs 5.1, hemoglobin 11.6, sodium 126, potassium 3.8, BUN 53, creatinine 3.12, ammonia <9. Progress note dated October 08, 2024. 64-year-old male seen in room 252. I was notified by the nurse at nighttime, that the patient's blood pressure continued to drop. We bumped up his dose of n orepinephrine, and gave him a liter of fluid. In addition, his respiratory status was marginal, and the blood gas was ordered. The patient is currently on 6 L of oxygen. The patient was admitted on October 06. He is getting saline at 150 cc an hour, and Precedex at 0.4 mcg/kg/h. His norepinephrine is running at 31 mcg/min. There is staphylococci in his blood. I have asked the nurses to add Ativan Dilaudid and Haldol to his regimen, to try to wean him off the dexmedetomidine. White count of 9.1, hemoglobin hematocrit 29, platelet count 88,000. Sodium 131, potassium 3, chloride 92, CO2 32, BUN 50, creatinine 2.34. Glucose is 167. Calcium is 6.3. CK was 8796. AST is 507. ALT is 136. Albumin is 2.2. Blood cultures from the were positive for Streptococcus group A. Chest x-ray shows bilateral effusions, small, with low lung volumes. 10/09/2024. Patient seen as a followup. No acute events overnight. He is currently on 6 L of oxygen. He was on dextrose 5% - 0.9% NaCl, blood sugars have been in the mid to high 200s. He is receiving Kefzol for streptococcal group A bacteremia. Precedex has been turned off. Levophed is 0.3 mcg/kg/min. WBCs 12.3, hemoglobin 9.7, hematocrit 27.7, platelets 48. Sodium 133, potassium 3.7, chloride 105, CO2 19, BUN 42, creatinine 1.62. Glucose 267. Calcium 6.4. CK 3888. AST 323, ALT 78. Albumin 2.2. Today's chest x-ray showed cardiomegaly, pulmonary vascular congestion, and bilateral pleural effusions. 10/10/2024. Patient is being seen as a followup in the ICU. Overnight he went into A-fib with rapid ventricular rate, was started on an amiodarone drip at 1mg/min, and converted back to normal sinus rhythm. His pressures remain in the 100s/40s and pulses are He is currently on 15 L high flow oxygen. He is on no rmal saline at 150 cc/h. He is maintained on Kefzol for streptococcal group A bactermia, today is day 3. Levophed is at 0.11 mcg/kg/min, vasopressin at 0.02 mcg/kg/min. WBCs 16.4, hemoglobin 9.8, hematocrit 29.6, platelets 38. Sodium 138, potassium 3.5, chloride 112, CO2 23, BUN 35, creatinine 1.26, glucose 164. Ionized calcium 4.1. CK 988. AST 154, ALT 36. Cortisol 32. TSH 4.3830. In addition, he removed his NG tube overnight. Today's chest x-ray is unchanged from previous. He remains lethargic and barely responsive to verbal stimulation. 10/11/2024. Patient is seen in the ICU. He underwent arthroscopic lavage of the right knee yesterday evening and returned to the ICU intubated on mechanical ventilation. He is currently on assist-control mode with rate 18, tidal volume 450, FiO2 70%, PEEP 5. ABG shows pH 7.34, pCO2 37, pO2 95. He is maintained on vasopressin 0.02 units/min, Levophed 0.14 mcg/kg/min, normal saline at 100 cc/h, and Kefzol day 4. WBCs 18.1, hemoglobin 8.8, hematocrit 27.6, platelets 52, sodium 140, potassium 3.9, chloride 115, CO2 17, BUN 35, creatinine 1.08, glucose 191, creatinine kinase 215. Calcium 6.5. Magnesium 1.6. He began IV hydrocortisone 50 mg every 6 hours yesterday. Liver ultrasound performed yesterday revealed no acute process. Chest x-ray today is unchanged from previous. 10/12/2024. Patient is evaluated in the ICU. He remains intubated on mechanical ventilation on assist-control mode with rate 18, tidal volume 450, Fi O2 50%, PEEP 5. ABG shows pH 7.42, pCO2 38, pO2 74. His RSBI yesterday was 110 and he was unable to follow commands so he could not be extubated. He is maintained on vasopressin 0.02 units/min, normal saline at 20 cc/h, IV hydrocortisone 50 mg every 6 hours, and Kefzol day 5. WBCs 17.4, hemoglobin 8.2, hematocrit 25.2, platelets 53, sodium 142, potassium 3.7, chloride 116, CO2 23, BUN 39, creatinine 1.18, glucose 258. Ionized calcium 4.4. Magnesium 1.8. Today's chest x-ray is unchanged. Wound culture gram stain of the right knee preliminary report shows rare gram positive cocci. Progress note dated October 13, 2024. 64-year-old male seen in the intensive care unit, room 252. The patient remains on the mechanical ventilator. He is on volume assist-control, rate 18, tidal volume 450, FiO2 50%, PEEP of 5. Blood gases show pO2 72, pCO2 41, and pH is 7.42. The patient is on propofol at 35 mcg/kg/min, saline at 20 cc an hour, and vital high-protein at 60, with goal of 70. Yesterday, he had a brief spontaneous breathing trial, and he did poorly. Today he will again have a s pontaneous breathing trial, of pressure support of 5 and CPAP of 5. He continues on Ancef. White count 18.8, hemoglobin 8.2, hematocrit 25.8, platelet count 78,000. Sodium 144, potassium 4.1, chlorides 117, CO2 26, BUN 47, creatinine 1.18. Glucose is 340. Albumin is 2.1. Previous blood cultures from October 06 show group A streptococci. Chest x-ray shows bibasilar infiltrates. The patient is seen today October 28, 2024 in follow-up in the intensive care unit. He is currently sitting up in bed. Awake. Somewhat slow to respond. He is maintaining good O2 saturation mid 90s on 3 L/min per nasal cannula. He has been afebrile. Hemodynamically stable. Right knee culture was positive for strep A. Previous sputum culture had been positive for enterofactor aerogenes. Follow-up cultures revealed no growth. Pleural fluid cultures revealed no growth. He 2. Potassium 4.9. Bicarb 21. BUN 58. Creatinine 3.68. Glucose 66. He is continued on DuoNeb and elations. Heparin for DVT prophylaxis. Antibiotics in the form of ertapenem. The patient is seen today October 29, 2024 in follow-up on the selective care unit. He was transferred out of the ICU yesterday. He is currently sitting up in bed. Awake and alert. Still somewhat slow to respond. He is maintaining O2 saturations in the 90s on 3 L/min per nasal cannula. He is been afebrile. Hemodynamically stable. He is status post 1 unit of packed red blood cells this admission. Current hemoglobin 8.0. Platelets 332. White count 7.9. Sodium 139. Potassium 4.4. Bicarb 23. BUN 59. Creatinine 4.24. Glucose 78. Urinalysis with moderate bacteria. Culture pending. He remains on ertapenem. Continued on bronchodilators. Remains on IV diuretics. Currently in a negative balance. Heparin for DVT prophylaxis. The patient is seen today October 30, 2024 in follow-up on the selective care unit. He is currently up in a chair at the bedside. Awake and alert in no acute distress. He is maintaining O2 saturations in the 90s on 3 L/min per nasal cannula. No IV fluids. He is continued on antibiotics in the form of ertapenem. Continued on IV diuretics. Heparin for DVT prophylaxis. Urine culture showing yeast species. Pleural fluid cultures revealed no growth. White count 10.4. Hemoglobin 8.0. MCV 106.8. Platelets 374. Sodium 137. Potassium 4.2. Bicarb 20. BUN 62. Creatinine 4.46. Glucose 87. The patient is seen today October 31, 2024 in follow-up on the selective care unit. He is currently sitting up in bed. Awake and alert in no acute distress. He is maintaining O2 saturations in the 90s on 3 L/min per nasal cannula. White count 8.7. Hemoglobin 7.5. Platelets 365. Sodium 138. Potassium 4.2. Bicarb 21. BUN 60. Creatinine 4.87. Glucose 207. He remains on DuoNeb i nhalations. Antibiotics in the form of ertapenem. Currently on fluconazole. Remains on IV diuretics. He is making urine. The patient is seen today November 01, 2024 in follow-up on the selective care unit. He is currently sitting up in a chair. Awake and alert in no acute distress. Maintaining O2 saturations in the 90s on 2 L/min per nasal cannula. Sodium 136. Potassium 4.0. Bicarb 21. BUN 60. Creatinine 4.93. Glucose 114. He is continued on ertapenem. Now initiated on Diflucan. Heparin for DVT prophylaxis. He remains on IV Lasix. Making urine. Creatinine continues to rise. May need renal replacement therapy per nephrology. Progress note dated November 02, 2024. 64-year-old male who is now been in the hospital for 27 days. The patient is seen today in room 384. The patient remains on oxygen, by nasal cannula at 3 L. Saturations are in the low 90s. The patient is laying nearly flat in bed. No distress. Current labs include a white count 5.6, hemoglobin 6.9, hematocrit 21.8, and a platelet count is normal. Sodium 136, potassium 4.6, chlorides 105, CO2 24, BUN 59, creatinine 5.24. Glucose is 166. Calcium is 8.5. Progress note dated November 03, 2024. 64-year-old male seen today in room 384. His overall condition is unchanged. He has not been in the hospital for nearly a month. He is on 2 L of oxygen. No IV fluids. Clinically, he is unchanged. Currently white count is 6.1, hemoglobin 7.5, hematocrit 23.6, platelet count 342,000. Sodium 134, potassium 4.4, chlorides 104, CO2 23, BUN is 59, and creatinine is 5.11. Glucose is 241. Calcium is 8, magnesium is 1.3. On 11/04/2024, the patient is being seen for a follow-up. The patient is awake and alert and communicating. He denies having any respiratory difficulties. In regards to his altered mentation, the patient underwent an MRI of the brain that showed no evidence of any infarct. His mental status is gradually improved and he seems to be back to his baseline. In terms of his respiratory status, he is still on 2 L of oxygen by nasal cannula with a pulse ox of around 90 to 91%. A repeat chest x-ray was done today and it showed smaller lung volumes and generalized hazy appearance in the lung bases probably due to underlying residual pleural effusion. The patient otherwise is maintained on DuoNeb nebulized treatments [id number]. The patient is on Lasix 40 mg IV every 24 hours. The patient remains on IV Invanz. He is on amiodarone 200 mg p.o. twice daily and metoprolol 12.5 mg twice daily for rate control and is also on a prednisone burst taper. He remains on Levemir insulin 20 units twice a day and NovoLog scan scale coverage. He is quite weak and debilitated due to this prolonged hospitalization. Objective - Vital Signs Vital signs: Vital Signs Temp 97.6 F 11/04/24 03:47 Pulse 78 11/04/24 03:47 Resp 18 11/04/24 03:47 BP 118/68 11/04/24 06:33 Pulse Ox 92 L 11/04/24 03:47 FiO2 4 10/28/24 04:00 Intake & Output 11/03/24 11/04/24 11/04/24 18:59 06:59 18:59 Intake Total 1100 130 118 Output Total 600 425 Balance 500 -295 118 Weight 93 kg Intake: IV 20 10 Invasive Line 5 20 10 Oral 1080 120 118 Output: Urine 600 425 Other: Voiding Method Indwelling Catheter Indwelling Catheter ABP, PAP, CO, CI - Last Documented Arterial Blood Pressure 128/42 - Exam No acute distress, currently on 2 L. The patient has a very flat affect. HEENT examination is grossly unremarkable. Mucous membranes are moist. No oral lesions. Neck supple. Full range of motion. No adenopathy thyromegaly or neck vein distention. Cardiovascular examination reveals regular rhythm rate. S1-S2 normal. No S3 or S4. No discernible murmur noted. Lungs reveal scattered bilateral rhonchi. No wheezes. No crackles. Breath sounds are equal bilaterally. Abdomen soft bowel sounds are heard. No masses or tenderness. Extremities are intact. No cyanosis clubbing or edema. Skin is without rash or lesion. Neurologic examination is brief but nonfocal. Generalized global weakness in all 4 extremities and her neurologic exam is nonfocal. - Labs CBC & Chem 7: 11/04/24 06:14 11/04/24 06:14 Labs: Abnormal Lab Results - Last 24 Hours (Table) 11/03/24 11/03/24 11/03/24 Range/Units 11:40 16:43 20:12 RBC (4.30-5.90) m/uL Hgb (13.0-17.5) gm/dL Hct (39.0-53.0) % MCV (80.0-100.0) fL RDW (11.5-15.5) % Sodium (137-145) mmol/L BUN (9-20) mg/dL Creatinine (0.66-1.25) mg/dL Glucose (74-99) mg/dL POC Glucose (mg/dL) 241 H 234 H 268 H (70-110) mg/dL Calcium (8.4-10.2) mg/dL Total Protein (6.3-8.2) g/dL Albumin (3.5-5.0) g/dL 11/04/24 11/04/24 11/04/24 Range/Units 06:05 06:14 06:14 RBC 2.38 L (4.30-5.90) m/uL Hgb 7.8 L (13.0-17.5) gm/dL Hct 24.6 L (39.0-53.0) % MCV 103.2 H (80.0-100.0) fL RDW 15.8 H (11.5-15.5) % Sodium 135 L (137-145) mmol/L BUN 59 H (9-20) mg/dL Creatinine 4.77 H (0.66-1.25) mg/dL Glucose 121 H (74-99) mg/dL POC Glucose (mg/dL) 144 H (70-110) mg/dL Calcium 7.9 L (8.4-10.2) mg/dL Total Protein 6.1 L (6.3-8.2) g/dL Albumin 2.3 L (3.5-5.0) g/dL Assessment and Plan Plan: Acute hypoxic respiratory failure, the patient has been intubated on 10/10/2024 following his knee surgery and the patient remains intubated on the mechanical ventilator, chest x-ray is unchanged and the patient continues to have atelectatic changes and small infiltrates in the lung base bilaterally. The patient was extubated on 10/15/2024 and subsequently reintubated on 10/18/2024 for an extensive left lung pneumonia with mucous plugs. Bronchoscopy was done on 10/18/2024 and 10/19/2024 with removal of extensive mucous plugs from the left mainstem bronchus and the left lower lobe. The preliminary sputum culture is positive for Enterobacter aerogenes. The patient was extubated on 10/22/2024. The patient remains on IV Invanz. Bilateral pleural effusions Encephalopathy, multifactorial. The patient had delirium tremens and subsequently patient was treated for septic shock. The patient's encephalopathy is improved and the patient is awake and alert and communicating. MRI of the brain was negative for an acute stroke Right-sided pleural effusion status postthoracentesis with removal of 400 cc of pleural fluid Septic shock, recovered Septic arthritis of the right knee secondary to strep group A , status post arthroscopy, with arthroscopic lavage and debridement of the right knee, partial medial meniscectomy and medial femoral condyle and medial tibial plateau chondroplasty. Back pain. MRI of the cervical spine showed disc bulge centrally and left parasternally at the level of T2-3 and moderate anterior thecal sac compression without cord deformity. The patient also has broad-based disc bulge at the level of C6/T1 and to lesser degrees T1-T2 and C6/C7 Chronic alcohol abuse, with acute alcohol withdrawal syndrome, recovered Status post fall, with rhabdomyolysis, secondary to immobility, recovered Chronic anemia History of coronary artery disease, with previous catheterization and stent placement. CHF with mild impairment LV function with an ejection fraction of 45% Paroxysmal atrial fibrillation, current rhythm is sinus, maintained on a combination of amiodarone and metoprolol. No anticoagulants for now Diabetes mellitus type I Gastroesophageal reflux disease. Hyperlipidemia. Hypertension. History of myocardial infarction. History of osteoarthritis. Plan: Patient is currently on 2 L of oxygen by nasal cannula Encouraged use of incentive spirometer Continue IV Lasix 40 mg every 24 hours Continue combination of amiodarone and metoprolol Chest x-ray from 11/04/2024 was noted and the patient continues to have bilateral lower lobe pleural effusions Continue IV Invanz Change Levemir insulin 20 units twice daily with Scale insulin coverage and watch for any signs of hypoglycemia Monitor fluid balance PT evaluation and increase mobility Will continue to follow.
[2024-11-04 16:01] LABS: Glucose,Whole Blood 260 mg/dL (70-110)
--- NOTE | 2024-11-04 17:34 | P.CONS ---
History of Present Illness - Reason for Consult Consult date: 11/04/24 2 m-spikes on SPEP, IgG, IgA kappa + immunofixation Requesting physician: Lc Higgins - Chief Complaint Vomiting, diarrhea - History of Present Illness Mr. Key is a 64 yo male we have been asked to see regarding IgG and IgA kappa m-spikes on SPEP, 1.17g/dl and 0.38g/dl. Pt SHERI on admit s/p fall, this improved then, renal function started to worsen, leading to Nephrology ordering additional lab work up to assess. Pt has been inpt since 10/06, chart reviewed, complicated hospital course. Admitted after found him on the floor, confused, couldn't get up on his own. Pt had been "sick" the previous few days, V, D. He feels that his illness was related to his diabetes. Reports he had found out his pancreas was no longer functioning and he was having trouble managing his blood glucose. reports that he lost quite a bit of wt in the last 6 mo. Pt reports he is an "alcoholic". Pt denies personal Hx of blood disorders, cancer, father of pancreatic cancer. He reports he is very weak and not able to get around on his own. Review of Systems 10 point ROS is neg except as stated in HPI Past Medical History Past Medical History: Coronary Artery Disease (CAD), Diabetes Mellitus, GERD/Reflux, Hyperlipidemia, Hypertension, Myocardial Infarction (IN), Osteoarthritis (OA) Additional Past Medical History / Comment(s): arthritis in fingers, knees, and neck area; NT in bilat arms Last Myocardial Infarction Date:: 2009 History of Any Multi-Drug Resistant Organisms: None Reported Past Surgical History: Heart Catheterization With Stent Additional Past Surgical History / Comment(s): ANAL FISSURE REPAIR, 2 cardiac stents, bhargavi cataracts. Pain proc Past Anesthesia/Blood Transfusion Reactions: No Reported Reaction Date of Last Stent Placement:: 2015 Past Psychological History: No Psychological Hx Reported Smoking Status: Former smoker Past Alcohol Use History: Daily - Past Family History Father Family Medical History: Cancer Additional Family Medical History / Comment(s): PANCREATIC Medications and Allergies Home Medications Medication Instructions Recorded Confirmed Type Aspirin [Adult Low Dose Aspirin EC] 81 mg PO DAILY 08/29/18 10/06/24 History Insulin Aspart [NovoLOG] See Protocol SQ AC-TID 08/29/18 10/06/24 History Insulin Glargine [Lantus Vial] 20 unit SQ DAILY 08/29/18 10/06/24 History Pantoprazole Sodium [Protonix] 40 mg PO DAILY 08/29/18 10/06/24 History lisinopriL [Zestril] 10 mg PO DAILY 08/29/18 10/06/24 History Atorvastatin [Lipitor] 80 mg PO DAILY #90 tab 10/26/18 10/06/24 Rx Metoprolol Tartrate [Lopressor] 50 mg PO BID 03/02/21 10/06/24 History HYDROcodone/APAP 7.5-325MG [Hood 1 tab PO BID PRN 10/06/24 10/06/24 History 7.5-325] Allergies Allergy/AdvReac Type Severity Reaction Status Date / Time No Known Allergies Allergy Verified 10/06/24 14:43 Physical Exam Vitals: Vital Signs Temp Pulse Pulse Resp BP Pulse Ox 11/04/24 11:35 74 16 134/71 90 L 11/04/24 08:25 98.2 F 80 16 117/64 94 L 11/04/24 06:33 118/68 11/04/24 03:47 97.6 F 78 18 114/65 92 L 11/04/24 01:51 79 11/04/24 00:00 98.4 F 79 18 113/62 92 L 11/03/24 21:30 98.5 F 84 18 115/65 90 L 11/03/24 21:01 80 11/03/24 21:00 84 11/03/24 20:50 78 11/03/24 15:36 80 11/03/24 15:25 80 11/03/24 14:58 98.4 F 79 18 109/61 94 L Intake and Output 11/03/24 11/04/24 11/04/24 22:59 06:59 14:59 Intake Total 310 120 236 Output Total 600 425 475 Balance -290 -305 -239 Intake: IV 10 Invasive Line 5 10 Oral 300 120 236 Output: Urine 600 425 475 Other: Voiding Method Indwelling Catheter Indwelling Catheter Indwelling Catheter Weight 93 kg 93 kg - Constitutional General appearance: average body habitus, cooperative, no acute distress - EENT Eyes: anicteric sclerae, EOMI ENT: hearing grossly normal, normal oropharynx - Neck Neck: no lymphadenopathy - Respiratory Respiratory: bilateral: CTA - Cardiovascular Rhythm: regular Heart sounds: normal: S1, S2 Abnormal Heart Sounds: no systolic murmur, no diastolic murmur, no rub, no S3 Gallop, no S4 Gallop, no click, no other foot Peripheral Edema: bilateral: Trace - Gastrointestinal General gastrointestinal: no absent bowel sounds, no decreased bowel sounds, no distended, no hepatomegaly, no hyperactive bowel sounds, normal bowel sounds, no organomegaly, no rigid, no scaphoid, soft, no splenomegaly, no tenderness, no umbilical hernia, no ventral hernia - Neurologic Neurologic: CNII-XII intact - Musculoskeletal Musculoskeletal: generalized weakness - Psychiatric Psychiatric: A&O x's 3, appropriate affect, intact judgment & insight Results CBC & Chem 7: 11/04/24 06:14 11/04/24 06:14 Labs: Abnormal Lab Results - Last 24 Hours (Table) 11/03/24 11/03/24 11/04/24 Range/Units 16:43 20:12 06:05 RBC (4.30-5.90) m/uL Hgb (13.0-17.5) gm/dL Hct (39.0-53.0) % MCV (80.0-100.0) fL RDW (11.5-15.5) % Sodium (137-145) mmol/L BUN (9-20) mg/dL Creatinine (0.66-1.25) mg/dL Glucose (74-99) mg/dL POC Glucose (mg/dL) 234 H 268 H 144 H (70-110) mg/dL Calcium (8.4-10.2) mg/dL Total Protein (6.3-8.2) g/dL Albumin (3.5-5.0) g/dL 11/04/24 11/04/24 11/04/24 Range/Units 06:14 06:14 11:38 RBC 2.38 L (4.30-5.90) m/uL Hgb 7.8 L (13.0-17.5) gm/dL Hct 24.6 L (39.0-53.0) % MCV 103.2 H (80.0-100.0) fL RDW 15.8 H (11.5-15.5) % Sodium 135 L (137-145) mmol/L BUN 59 H (9-20) mg/dL Creatinine 4.77 H (0.66-1.25) mg/dL Glucose 121 H (74-99) mg/dL POC Glucose (mg/dL) 180 H (70-110) mg/dL Calcium 7.9 L (8.4-10.2) mg/dL Total Protein 6.1 L (6.3-8.2) g/dL Albumin 2.3 L (3.5-5.0) g/dL Assessment and Plan (1) Elevated immune protein in blood Current Visit: Yes Status: Acute Priority: High Code(s): D89.2 - HYPERGAM MAGLOBULINEMIA, UNSPECIFIED SNOMED Code(s): 946208521 Plan: Elevated immune protein in blood -2 m-spikes noted on SPEP, 1.17g/dl and 0.38g/dl. Immunofixation detected IgG kappa and possibly an IgA kappa, protein elevations. -Worsening renal function -24 hour urine SPEP, immunofixation, K/L lt chains ordered -Suspect may be related to acute illness, inflammation, prolonged hospitalization and medications but, completion of work up is very reasonable with worsening kidney function, progressive anemia. Anemia -Progressive since admit -Multifactorial including medications, dilution, infection, SHERI. -S/P 2 units PRBCs since admit, stable Hgb at this time -Anemia work up ordered -Transfuse for Hgb <7 or if symptomatic Reviewed additional work up with pt and family at bedside. They verbalized understanding the plan of care at this time. We will update them on results and any additional studies
[2024-11-04 17:54] LABS: Reticulocyte % 2.6 % (0.5-2.0)
[2024-11-04 20:00] LABS: Glucose,Whole Blood 324 mg/dL (70-110)
--- NOTE | 2024-11-04 22:46 | P.PN ---
Subjective Progress Note Date: 11/04/24 Progress Note Date: 10/31/24 64-year-old male who is being seen in the ICU due to hypovolemic shock and rhabdomyolysis. He is a poor historian due to altered mental status and un responsiveness. All history is obtained from the chart. He initially presented to the emergency department after being found facedown on the ground with a contusion to his forehead and abrasions to his knee and left toes. She stated that he had been having nausea and vomiting for a day prior to being found down. He was noted to have diarrhea as well. Patient is a daily drinker and consumes about a fifth per day according to the notes he has not drank for the 2 days prior to this admission. He also has a history of type 1 diabetes mellitus. Initial EKG showed sinus tachycardia. Head/cervical spine CT showed no acute intracranial process and no acute fracture or traumatic subluxation of the cervical spine. Initial chest x-ray showed right middle lobe scarring/atelectasis, no acute pulmonary process. He had received 4 L of normal saline. Initial labs showed CK level of 18,113, WBCs 10.7, hemoglobin 12.5, sodium 126, creatinine 3.18 lactic acid 6.9, AST 401, ALT 65. Preliminary blood culture showed gram-positive cocci and patient was started on vancomycin. 24-hour interval change 10/12/2024 -- Patient is evaluated in the ICU. He remains intubated on mechanical ventilation - ABG shows pH 7.42, pCO2 38, pO2 74. - He is maintained on vasopressin 0.02 units/min, normal saline at 20 cc/h, IV hydrocortisone 50 mg every 6 hours, and Kefzol day 5. Labs are reviewed WBCs 17.4, hemoglobin 8.2, hematocrit 25.2, platelets 53, sodium 142, potassium 3.7, chloride 116, CO2 23, BUN 39, creatinine 1.18, glucose 258. Ionized calcium 4.4. Magnesium 1.8. Today's chest x-ray is unchanged. Wound culture gram stain of the right knee preliminary report shows rare gram positive cocci. 10/13/2024 Patient is seen and evaluated in ICU at bedside; remains on the mechanical ventilator. Discussed with nursing staff. Concerns about elevated blood sugars; patient was placed on home dose of Lantus which did not help much - Blood gases show pO2 72, pCO2 41, and pH is 7.42. - The patient is on propofol at 35 mcg/kg/min, saline at 20 cc an hour, and vital high-protein at 60, with goal of 70. Yesterday, he had a brief spontane ous breathing trial, and he did poorly. Today he will again have a spontaneous breathing trial, of pressure support of 5 and CPAP of 5. He continues on Ancef. White count 18.8, hemoglobin 8.2, hematocrit 25.8, platelet count 78,000. Sodium 144, potassium 4.1, chlorides 117, CO2 26, BUN 47, creatinine 1.18. Glucose is 340. Albumin is 2.1. Previous blood cultures from October 06 show group A streptococci. Chest x-ray shows bibasilar infiltrates. -- For hyperglycemia I will increase dose of Lantus and add insulin lispro every 4 hours; continue with current sliding scale 10/14/2024 Patient is seen in follow-up today continues on Precedex and attempting to wean maintained on mechanical ventilation with an FiO2 of 50% PEEP is 5. Per nursing staff attempting sedation holiday although did not go well yesterday. Patient is maintained on antibiotics with infectious disease following and patient is status post right knee aspiration with preliminary culture showing strep a with positive blood cultures. Patient continues with significant swelling especially the scrotal area maintained on IV Lasix and will continue. No discussion of PEG and trach as of yet and patient remains full code. Prognosis is guarded. 10/15/2024 Patient is seen this morning continues to be in the ICU currently working on weaning FiO2 and undergoing sedation holiday. Patient is eye tracking and foll owing commands and per pulmonary acid extractor working on extubation today. Will await official report and monitor closely. Patient is continued on antibiotics with infectious disease following. 10/16/2024 Patient is seen in follow-up this morning extubated successfully currently maintained on 6 L high flow nasal cannula. Patient is awake and responding appropriately to questions and commands. Patient is extremely lethargic at times and significantly weak with significant edema noted. Sodium is elevated at 150 and is continued on D5 and water. Blood sugars have been elevated and will adjust insulins accordingly. Patient swallow eval performed and failed awaiting reevaluation with speech. Continue n.p.o. for now. White count remains elevated patient is maintained on antibiotics with infectious disease following. Awaiting repeat cultures. Procalcitonin 1.06. Questions and rahat rns were answered to the best of my ability with son at the bedside. 10/17/2024 Patient is evaluated today in follow up in the ICU. He was extubated yesterday. Continues on oxygen support on 100% BiPAP at this time. Cultures from the right knee arthroscopy reveals Strep A. Chest xray today reveals no change to the bibasilar opacities. Chest ultrasound reveals right pleural effusion pocket size 6.0 cm and left pleural effusion pocket size of 4.9 cm. Both sides marked for possible thoracentesis. Labs today reveal white blood cell count of 11.8, hgb 7.5, sodium 146, potassium 3.4, BUN 43, creatinine 1.06. Blood glucose 200s. Continues on IV amiodarone, IV cefepime, IV vancomycin. Patient is in normal sinus rhythm currently heart rate in the 80s. 10/18/2024 Patient evaluated today in follow up in the ICU. He is awake alert oriented continues on BiPAP. He is status post right sided thoracentesis with 400 mL off. Chest xray today reveals stable bilateral lower lobe infiltrate and small pl eural effusion. White blood cell count today 10.4. Continues on IV vancomycin and IV cefepime. Remains on IV amiodarone. on IV heparin. Patient remains NPO at this time, speech therapy to follow up today to reassess. 10/19/2024 Patient remains in the ICU. He is on the mechanical ventilator, FiO2 of 50%. Chest x-ray today shows left lower lobe pneumonia and/or atelectasis and pleural effusion. Elian in the left lung base is obscuring the left heart border and the hemidiaphragm has decreased in the interval. White blood cell count today is 8.4, hemoglobin 7.1, sodium 144, BUN of 40, creatinine of 1.43. His viral panel is negative for all viruses checked. 10/20/2024 Patient remains the intensive care unit he is currently on mechanical ventilator with an FiO2 of 50%. He is awake and alert and responding to commands. His chest x-ray reveals continued acute coronary cardiopulmonary disease involving the retrocardiac region with no significant interval change. Repeat sputum reveals Enterobacter he continues on IV cefepime at this time. Hemoglobin level today is 6.7 he will receive 1 unit of packed red blood cells. His creatinine is up to 1.51 today. Continues on oral amiodarone for the atrial fibrillation was taken off of anticoagulation secondary to the decreased hemoglobin. Patient is sedated with propofol at this time. He is also receiving IV Lasix daily prognosis remains guarded. 10/21/2024 Patient remains in the intensive care unit. Remains on the mechanical neville tilator. He is currently sedated with propofol. He is alert and following commands. Chest xray unchanged continues to show pneumonia with sputum culture showing enterobacter. He remains on IV cefepime. Hemoglobin better today at 7.8. BUN 42 creatinine 1.67. 10/22/2024 Patient is evaluated today in the intensive care unit. Patient was extubated today. He is awake alert and oriented. He is complaining of some back pain. Has IV dilaudid on board. Chest xray today reveals no evidence of pleural effusion, focal consolidation, or pneumothorax. He remains edematous. Creatinine 1.87 today. On IV lasix which has been increased to BID by nephrology. 3L of urine output in the last 24 hours. 10/23/2024 Patient evaluated today in follow up in the ICU. Currently on 2L of oxygen via nasal cannula with saturations of 99%. Remains on IV cefepime. Chest xray today reveals left lung airspace opacity. Creatinine up to 2.1 today IV lasix has been discontinued. Patient has been placed on normal saline at 75 mls/hr. Speech therapy re consulted for swallow evaluation post extubation. 10/24/2024 Patient evaluated today in follow up remains in the ICU. Patient underwent neuro evaluation today. Brain CT was done revealing no acute bleed or mass effect. Mild age-appropriate senescent changes. Marked calcification of basal artery and significant stenosis cannot be excluded. Mild to moderate fluid in the mastoid air cells bilaterally. BUN 46 creatinine 2.12. Continues on normal saline at 75 mls/hr. Continues on IV cefepime. 10/25/2024 Patient remains in the ICU with multiple consultations following. Patient continues to be encephalopathic with neurology following. Orthopedics to reevaluate the upper extremity weakness and also vascular surgery was consulted as there is concerns of occlusive disease of the left lower extremity with discoloration of the toes. Patient continues on antibiotics and continues to require 2 L of oxygen. Patient is maintained on dysphagia ground diet and strongly recommend aspiration precautions and supervision with meals along with head of the bed elevated 30 to 45 degrees at all times. Patient is currently afebrile with no reports of chest pain or shortness of breath. 1 dose of IV Lasix was given today. 10/26/2024 Patient remains in the ICU. Continues to be confused and more lethargic today. Neurology following and felt this was encephalopathy. He is not using this right arm and he does have pain when touching that arm. It is edematous.Vascular e valated the patient for the left diabetic foot wounds which have dry gangrene and did not feel there was ischemia to the leg. He remains on 2L of oxygen via nasal cannula. Labs today hemoglobin 7.3, BUN 51, creatinine 2.66. Remains on IV cefepime which can also cause confusion. 10/27/2024 Patient evaluated in follow-up in the intensive care unit. He is currently sitting up in the chair family at the bedside. He is more awake alert and oriented he is able to state his name and birthday. He does continue to have significant right upper extremity weakness and also mild right lower extremity weakness. This was discussed with neurology and as his mentation has improved brain and cervical neck MRI are both ordered for tomorrow. His creatinine today is 3.0. He has been taken off of the normal saline and also remains off diuretics. Patient was transition to IV ertapenem taken off of the cefepime at this time. Chest x-ray shows no change in the left lung opacification and probable small pleural effusion. Development of a small right pleural effusion. 10/28/2024 Patient is seen in the ICU with multiple consultations following lethargic although arousable awaiting a transfer out of the ICU once a bed on 3 S. becomes available. Patient is awake although fatigues easily. Patient reports he is eating although not eating much and continues to have weakness. Recommend PT/OT therapy daily. Awaiting cervical neck MRI which has been pending for quite some time. Kidney functions worsening and 3.6 today. Blood pressures are soft and patient was given a dose of Lasix yesterday. Urine output remains marginal and will be monitored closely. Recommend strict intake and output monitoring and documenting. Midodrine being added per nephrology and will follow-up on repeat labs. Patient continues on ertapenem with infectious disease following. Blood sugars have been on the lower side and will adjust insulins and continue with sliding scale with Accu-Cheks before meals and at bedtime. Patient currently denies chest pain or worsening shortness of breath and is currently maintained on 3 L via nasal cannula and oxygen saturations have been above 94%. 10/29/2024 Patient evaluated today on the medical floor as a movement of the intensive care unit. He is able to sit at the edge of the bed today and will continue to work with PT OT daily. He will need subacute rehab on discharge. He is still awaiting a brain and cervical neck MRI unsure if he can have an MRI due to the surgical plates in his neck discussed this with nursing. Also discussed with orthopedics that he is unable to get contrast due to the renal dysfunction and per Dr. Foss group the MRI needs to be with contrast and we will hold off on the lumbar MRI with and without contrast at this time. Did undergo barium swallow and is on pured diet with nectar thick liquids. He remains off of the IV cefepime at this time and currently on IV ertapenem. He remains on IV Lasix daily. 10/30/2024 Patient evaluated in follow-up on the medical floor. He has been moved out of the the intensive care unit. He is sitting up in the chair. He continues with significant right-sided weakness. Underwent brain MRI with no evidence of an acute stroke at this time. Follow-up with orthopedics that he is unable to get this lumbar MRI with and without contrast. Creatinine up to 4.46 today. He is on IV Lasix daily. 10/31/2024 Patient is seen in follow-up today currently sitting up in the chair and has worked with physical therapy reports to being extremely weak. Kidney functions continue to worsen and nephrology following closely and is continued on IV Lasix daily. Patient is making urine although attempted trial void yesterday and retained over 800 and Hinson catheter was placed again. Will add Flomax and monitor intake and output closely. Discussing renal replacement daily although holding off today. Will follow-up with repeat labs. Patient denies worsening shortness of breath and reports is improving daily. Patient reports is tolerating diet with no reported nausea or vomiting. 11/01/2024 Patient evaluated in follow up today sitting up in the chair. Continues with significant weakness and more pronounced on the right. He continues on IV lasix daily. Remains edematous. BUN up to 60 and creatinine of 4.93 today. He has had about 1.6 L of fluid off in the last 24 hours. He continues on IV ertapenem. 11/02/2024 No acute events overnight. Remains on IV ertapenem. Hgb today 6.9, no evidence for active bleeding. Sodium 134, BUN 59, creatinine 5.24. Continues with indwelling hinson catheter. 11/03/2024 Patient is eval today in follow-up in the medical floor. No acute complaints overnight. He is resting comfortably today his hemoglobin is better at 7.5 post 1 unit of packed red blood cells. Labs today reveal a BUN of 59 creatinine of 5.11. There is concern for interstitial nephritis he remains on oral prednisone. 11/04/2024 Patient evaluated in follow-up in the medical floor. He is awake alert oriented he is moving his right upper extremity more today and there is less edema noted. Patient's continues on a course of oral prednisone for possible interstitial nephritis. His renal function today shows mild improvement with a BUN of 59 creatinine of 4.77. White blood cell count 7.5 hemoglobin remained stable at 7.8. Repeat chest x-ray reveals low lung volumes with a generalized hazy appearance of the lung base possibly representing bilateral pleural effusions. Review of systems: Constitutional: reports of fatigue, no fever, or chills Cardiovascular: No reports of chest pain or palpitations Respiratory: No reports of worsening shortness of breath reports continued weak cough GI: No reports of nausea, vomiting, or diarrhea, : No reports of dysuria or retention Neurovascular: reports of generalized weakness and continued swelling of upper and lower extremities that is slightly improved All medications have been reviewed Physical exam: Gen: This is a 64-year-old male who is maintained on 3 L nasal cannula., well- developed, elderly appearing, ill-appearing, appears older than stated age, HEENT: Head is atraumatic, normocephalic. Pupils equal, round. Sclerae is anicteric. NECK: Supple. No JVD. No lymphadenopathy. No thyromegaly. LUNGS: Diminished breath sounds bilaterally with some bronchial congestion and coarse scattered rhonchi. No intercostal retractions. HEART: S1, S2 are muffled ABDOMEN: Soft. Somewhat taut, positive bowel sounds are present. No masses. No tenderness. Significant scrotal edema noted, minimally improved EXTREMITIES: Bilateral upper and lower extremity edema noted. No calf tenderness. Generalized upper and lower extremity edema along with scrotal swelling noted Right upper extremity weakness. NEUROLOGICAL: Patient is awake, alert and oriented x 2, diffusely weak Assessment: -Chronic alcohol abuse with acute alcohol withdrawal syndrome; Thiamine and protonix. No longer going through acute withdrawals. -Altered mental status acute metabolic and septic encephalopathy. Brain CT reveals no acute stroke. Patient continues to have right upper and lower extremity weakness. Unable to officially rule out stroke. -Acute hypoxic respiratory failure was intubated following knee surgery on 10/10 and successfully extubated on 10/15/24. re-intubated on 10/18/2024 and now extubated on 10/22/24. Status post bronchoscopy on 10/18. -Congestive heart failure with an EF of 45%, diastolic dysfunction -Paroxysmal atrial fibrillation transitioned to oral amiodarone Currently on subq heparin. Was taken off IV heparin due to decreased hemoglobin -Acute blood loss anemia requiring transfusion, hgb was stable down to 6.9 today and will receive 1 unit PRBC -Right sided pleural effusion status post right sided thoracentesis with 400 mL off. -Oral thrush -Rhabdomyolysis secondary to immobility due to fall. Improving with IV hydration. We will continue to monitor strict STERLING's, daily weights, renal function electrolytes -Acute kidney injury secondary to ATN due to to septic shock and rhabdomyolysis. Was initially improving and now with worsening renal function, nephrology following with no immediate plans for renal replacement although has been discussing the possible need for is kidney functions continue to worsen. Patient is making good urine output although was retaining and did require Hinson catheter to be replaced. Will add Flomax. There is concern for possible under lying interstitial nephritis patient was started on oral prednisone. -Relative adrenal insufficiency. On IV hydrocortisone. -Transaminitis. Improving. -Streptococcus group A bacteremia. Currently on ertapenem per ID recommendation; continue to monitor CBC, CRP and procalcitonin. Possibly sec ondary to right knee infection -Right knee pain with swelling, status post aspiration along with arthroscopic lavage, culture showing strep a with septic arthritis -Hyponatremia, likely hypovolemic; resolved. -Episode of hypernatremia treated with D5W, sodium normalized. This was due to free water deficit. 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 -History of coronary artery disease with previous catheterization and stent placement. -Hypertension; currently not on any antihypertensive medication. -Sepsis, present on admission possibly secondary to right knee arthritis with bacteremia GI prophylaxis DVT prophylaxis No code Plan: status post arthroscopy with lavage of the right knee and final cultures showing Strep A. Currently on ertapenem per ID recommendations and cefepime has been discontinued. Repeat blood cultures thus far are negative and will continue on IV antibiotics with ID following Sputum culture showing Enterobacter patient is status post bronchoscopy sputum cultures are now negative Speech therapy has been reconsulted post extubation and is maintained on a dysphagia ground diet and strongly recommend aspiration precautions with supervision with meals and head of the bed elevated 30 to 45 degrees at all times Blood sugars variable and have been steadily increasing and will adjust insulins including increasing long-acting slightly. Continue with Accu-Cheks before meals and at bedtime and sliding scale Follow-up on repeat labs and monitor kidney functions and electrolytes closely. Nephrology following closely discussing possible renal replacement and recommend monitoring urine output closely Patient has not started on a course of oral prednisone with concern for interstitial nephritis. Oncology was consulted for abnormal blood levels of IgG kappa as well as 2 m-spikes noted on SPEP. Additional blood work has been ordered. Orthopedics did recommend lumbar spine MRI with and without contrast although patients renal function now with creatinine of 4.46 he is unable to get oral contrast at this time. Physical therapy and occupational therapy have been re-consulted. And recommend evaluating daily as patient is significantly weak and has had prolonged hospitalization. Patient requesting [facility] on discharge when medically stable. Repeat blood work in the AM Overall prognosis remains guarded at this time The impression and plan of care has been dictated by Sharlene Pendleton, Nurse Practitioner as directed. Dr. Randall MD I have performed a history and examination and MDM of this patient, discussed the same with the dictator, and agree with the dictator's assessment and plan as written ,documented as a scribe. Based on total visit time, I have performed more than 50% of the visit. Objective - Vital Signs Vital signs: Vital Signs Temp 97.2 F L 11/04/24 19:48 Pulse 72 11/04/24 22:00 Resp 18 11/04/24 19:48 BP 127/64 11/04/24 19:48 Pulse Ox 92 L 11/04/24 19:48 FiO2 4 10/28/24 04:00 Intake & Output 11/04/24 11/04/24 11/05/24 06:59 18:59 06:59 Intake Total 130 354 Output Total 425 5442 796 Balance -295 -1321 -175 Weight 93 kg 93 kg Intake: IV 10 Invasive Line 5 10 Oral 120 354 Output: Urine 425 7807 853 Other: Voiding Method Indwelling Catheter Indwelling Catheter ABP, PAP, CO, CI - Last Documented Arterial Blood Pressure 128/42 - Labs CBC & Chem 7: 11/04/24 06:14 11/04/24 06:14 Labs: Abnormal Lab Results - Last 24 Hours (Table) 11/04/24 11/04/24 11/04/24 Range/Units 06:05 06:14 06:14 RBC 2.38 L (4.30-5.90) m/uL Hgb 7.8 L (13.0-17.5) gm/dL Hct 24.6 L (39.0-53.0) % MCV 103.2 H (80.0-100.0) fL RDW 15.8 H (11.5-15.5) % Retic Count (0.5-2.0) % Sodium 135 L (137-145) mmol/L BUN 59 H (9-20) mg/dL Creatinine 4.77 H (0.66-1.25) mg/dL Glucose 121 H (74-99) mg/dL POC Glucose (mg/dL) 144 H (70-110) mg/dL Calcium 7.9 L (8.4-10.2) mg/dL Total Protein 6.1 L (6.3-8.2) g/dL Albumin 2.3 L (3.5-5.0) g/dL 11/04/24 11/04/24 11/04/24 Range/Units 11:38 15:59 17:08 RBC (4.30-5.90) m/uL Hgb (13.0-17.5) gm/dL Hct (39.0-53.0) % MCV (80.0-100.0) fL RDW (11.5-15.5) % Retic Count 2.6 H (0.5-2.0) % Sodium (137-145) mmol/L BUN (9-20) mg/dL Creatinine (0.66-1.25) mg/dL Glucose (74-99) mg/dL POC Glucose (mg/dL) 180 H 260 H (70-110) mg/dL Calcium (8.4-10.2) mg/dL Total Protein (6.3-8.2) g/dL Albumin (3.5-5.0) g/dL 11/04/24 Range/Units 19:58 RBC (4.30-5.90) m/uL Hgb (13.0-17.5) gm/dL Hct (39.0-53.0) % MCV (80.0-100.0) fL RDW (11.5-15.5) % Retic Count (0.5-2.0) % Sodium (137-145) mmol/L BUN (9-20) mg/dL Creatinine (0.66-1.25) mg/dL Glucose (74-99) mg/dL POC Glucose (mg/dL) 324 H (70-110) mg/dL Calcium (8.4-10.2) mg/dL Total Protein (6.3-8.2) g/dL Albumin (3.5-5.0) g/dL Microbiology - Last 24 Hours (Table) 10/18/24 15:00 Fungal Culture - Preliminary Sputum Assessment and Plan Time with Patient: Less than 30
[2024-11-05 03:17] LABS: % Iron Saturation 13.33 (15.00-50.00); Iron 26 UG/DL (65-175); Rheumatoid Factor, Qnt <15 IU/mL (0-15); Total Iron Binding Capacity 195 UG/DL (228-460)
[2024-11-05 06:18] LABS: Glucose,Whole Blood 120 mg/dL (70-110)
[2024-11-05 07:44] LABS: Basophils % (A) 0 %; Eosinophils # (A) 0.1 k/uL (0-0.7); Eosinophils % (A) 1 %; HCT 25.8 % (39.0-53.0); HGB 8.3 gm/dL (13.0-17.5); Hypochromasia Slight; Lymphocytes # (A) 1.5 k/uL (1.0-4.8); Lymphocytes % (A) 15 %; MCH 32.7 pg (25.0-35.0); MCHC 32.2 g/dL (31.0-37.0); MCV 101.6 fL (80.0-100.0); Macrocytosis Slight; Mean Platelet Volume 8.3; Monocytes # (A) 0.8 k/uL (0-1.0); Monocytes % (A) 8 %; Neutrophils # (A) 7.4 k/uL (1.3-7.7); Neutrophils % (A) 75 %; Platelet Count 460 k/uL (150-450); RBC 2.54 m/uL (4.30-5.90); RDW 15.9 % (11.5-15.5); WBC 9.8 k/uL (3.8-10.6)
[2024-11-05 08:02] LABS: African American GFR (CKD) 16 (>60 ml/min/1.73 sqM); Anion Gap 9 mmol/L; Blood Urea Nitrogen 58 mg/dL (9-20); Calcium 7.9 mg/dL (8.4-10.2); Carbon Dioxide 21 mmol/L (22-30); Chloride 104 mmol/L (98-107); Glucose 103 mg/dL (74-99); Magnesium 1.6 mg/dL (1.6-2.3); Non-African American GFR(CKD) 14 (>60 ml/min/1.73 sqM); Potassium 4.3 mmol/L (3.5-5.1); Sodium 134 mmol/L (137-145)
[2024-11-05] MEDS: PANTOPRAZOLE 40 MG TABLET PO SCH (09:23)
[2024-11-05] MEDS ORDERED: Magnesium Replacement Protocol 1 EACH MISC MISCELLANE PRN (09:31)
[2024-11-05] MEDS: MAGNESIUM SULFATE-D5W PMX 1 GM in DEXTROSE/WATER 1 100ML.BAG IVPB SCH (09:36)
--- NOTE | 2024-11-05 10:28 | P.PN ---
Subjective Patient is seen in follow-up for acute kidney injury. Renal function improving. Nonoliguric. On IV Lasix. Oral intake fair. Vital signs are stable. General: No acute distress. HEENT: On nasal cannula. LUNGS: No audible rhonchi or wheezes. HEART: Rate and Rhythm are regular. ABDOMEN: No distention. EXTREMITITES: 1+ edema. Objective - Vital Signs Vital signs: Vital Signs Temp 96.6 F L 11/05/24 04:28 Pulse 83 11/05/24 04:28 Resp 16 11/05/24 04:28 BP 143/76 11/05/24 04:28 Pulse Ox 96 11/05/24 04:28 FiO2 4 10/28/24 04:00 Intake & Output 11/04/24 11/05/24 11/05/24 18:59 06:59 18:59 Intake Total 354 360 Output Total 1675 500 Balance -1321 -140 Weight 93 kg 90.5 kg Intake: Oral 354 360 Output: Urine 1675 500 Other: Voiding Method Indwelling Catheter Indwelling Catheter # Bowel Movements 1 ABP, PAP, CO, CI - Last Documented Arterial Blood Pressure 128/42 - Labs CBC & Chem 7: 11/05/24 06:59 11/05/24 06:59 Labs: Abnormal Lab Results - Last 24 Hours (Table) 11/04/24 11/04/24 11/04/24 Range/Units 11:38 15:59 17:08 RBC (4.30-5.90) m/uL Hgb (13.0-17.5) gm/dL Hct (39.0-53.0) % MCV (80.0-100.0) fL RDW (11.5-15.5) % Plt Count (150-450) k/uL ESR 120 H (0-20) mm/Hr Retic Count 2.6 H (0.5-2.0) % Sodium (137-145) mmol/L Carbon Dioxide (22-30) mmol/L BUN (9-20) mg/dL Creatinine (0.66-1.25) mg/dL Glucose (74-99) mg/dL POC Glucose (mg/dL) 180 H 260 H (70-110) mg/dL Calcium (8.4-10.2) mg/dL Iron (65-175) UG/DL TIBC (228-460) UG/DL % Saturation (15.00-50.00) Transferrin (204.0-354.0) mg/dL Ferritin (22.0-322.0) ng/mL Vitamin B12 (200.0-944.0) pg/mL Folate (4.40-31.00) ng/mL 11/04/24 11/04/24 11/04/24 Range/Units 17:08 17:08 19:58 RBC (4.30-5.90) m/uL Hgb (13.0-17.5) gm/dL Hct (39.0-53.0) % MCV (80.0-100.0) fL RDW (11.5-15.5) % Plt Count (150-450) k/uL ESR (0-20) mm/Hr Retic Count (0.5-2.0) % Sodium (137-145) mmol/L Carbon Dioxide (22-30) mmol/L BUN (9-20) mg/dL Creatinine (0.66-1.25) mg/dL Glucose (74-99) mg/dL POC Glucose (mg/dL) 324 H (70-110) mg/dL Calcium (8.4-10.2) mg/dL Iron 26 L (65-175) UG/DL TIBC 195 L (228-460) UG/DL % Saturation 13.33 L (15.00-50.00) Transferrin 139.0 L (204.0-354.0) mg/dL Ferritin 476.0 H (22.0-322.0) ng/mL Vitamin B12 1753.0 H (200.0-944.0) pg/mL Folate 4.20 L (4.40-31.00) ng/mL 11/05/24 11/05/24 11/05/24 Range/Units 06:16 06:59 06:59 RBC 2.54 L (4.30-5.90) m/uL Hgb 8.3 L (13.0-17.5) gm/dL Hct 25.8 L (39.0-53.0) % MCV 101.6 H (80.0-100.0) fL RDW 15.9 H (11.5-15.5) % Plt Count 460 H (150-450) k/uL ESR (0-20) mm/Hr Retic Count (0.5-2.0) % Sodium 134 L (137-145) mmol/L Carbon Dioxide 21 L (22-30) mmol/L BUN 58 H (9-20) mg/dL Creatinine 4.30 H (0.66-1.25) mg/dL Glucose 103 H (74-99) mg/dL POC Glucose (mg/dL) 120 H (70-110) mg/dL Calcium 7.9 L (8.4-10.2) mg/dL Iron (65-175) UG/DL TIBC (228-460) UG/DL % Saturation (15.00-50.00) Transferrin (204.0-354.0) mg/dL Ferritin (22.0-322.0) ng/mL Vitamin B12 (200.0-944.0) pg/mL Folate (4.40-31.00) ng/mL Microbiology - Last 24 Hours (Table) 10/18/24 15:00 Fungal Culture - Preliminary Sputum Assessment and Plan Plan: Assessment: 1. Acute kidney injury secondary to ATN secondary to septic shock and rhabdomyolysis. Creatinine 3.18 on admission and improved to 0.89 dated October 16, 2024 -worsened with diuresis. Also concern for interstitial nephritis with urine eosinophils at 7. Started on prednisone November 01, 2024. Serologies negative except for positive serum immunofixation. Being followed by oncology. No hydronephrosis noted on kidney ultrasound. Creatinine peaked at 5.24 this admission and is 4.3 today. 2. Rhabdomyolysis secondary to immobility. Resolved. 3. Strep bacteremia on antibiotics. Being treated for pneumonia. Status post bronchoscopy October 18, 2024. ID following. 4. Anion gap metabolic acidosis secondary to acute kidney injury. 5. Hypernatremia from lack of oral water intake. Status post D5W. Resolved. 6. Hypomagnesemia from poor intake and diuresis. 7. History of alcohol abuse. 8. Hypocalcemia secondary to acute kidney injury as well as intracellular shifting from bicarb. PTH 112. Vitamin D level 26.5. On vitamin D. Corrected calcium in the normal range. 9. A-fib with RVR maintained on amiodarone and Lopressor. 10. Volume overload. On IV Lasix. 11. Acute blood loss anemia status post blood transfusion this admission. Hemoglobin stable. Plan: Maintain IV Lasix. Maintain prednisone. This will be tapered over the next few weeks. Avoid nephrotoxins. Continue to monitor renal function and urine output. Replace magnesium. Add oral bicarb. Will need kidney biopsy if no improvement in renal function over the next 1 to 2 weeks. Case discussed with oncology.
[2024-11-05 11:56] LABS: Glucose,Whole Blood 193 mg/dL (70-110)
[2024-11-05 12:20] LABS: Free Kappa Lt Chain Qnt, Serum 20.07 mg/dL (0.33-1.94); Free Lambda Lt Chain Qnt, Seru 20.21 mg/dL (0.57-2.63)
[2024-11-05] MEDS: SODIUM BICARBONATE TAB 650 MG TAB PO SCH (12:46)
--- NOTE | 2024-11-05 13:32 | P.PN ---
Subjective Progress Note Date: 11/05/24 The patient continues to have some generalized weakness and lethargy, but is arousable and appropriate. He denied any obvious bleeding. He is making urine. He says that he had a normal bowel movement today. Objective - Vital Signs Vital signs: Vital Signs Temp 98.4 F 11/05/24 09:20 Pulse 84 11/05/24 12:16 Resp 16 11/05/24 09:20 BP 136/68 11/05/24 09:20 Pulse Ox 97 11/05/24 09:20 FiO2 4 10/28/24 04:00 Intake & Output 11/04/24 11/05/24 11/05/24 18:59 06:59 18:59 Intake Total 354 360 Output Total 1675 500 Balance -1321 -140 Weight 93 kg 90.5 kg Intake: Oral 354 360 Output: Urine 1675 500 Other: Voiding Method Indwelling Catheter Indwelling Catheter Indwelling Catheter # Bowel Movements 1 ABP, PAP, CO, CI - Last Documented Arterial Blood Pressure 128/42 - Constitutional General appearance: Present: no acute distress - EENT Eyes: Present: EOMI ENT: Present: hearing grossly normal, normal oropharynx - Respiratory Respiratory: bilateral: CTA - Cardiovascular Rhythm: regular Heart sounds: normal: S1, S2 - Gastrointestinal General gastrointestinal: Present: normal bowel sounds, soft - Integumentary Integumentary: Present: normal - Neurologic Neurologic: Present: CNII-XII intact - Musculoskeletal Musculoskeletal: Present: generalized weakness, strength equal bilaterally - Psychiatric Psychiatric: Present: A&O x's 3, appropriate affect - Labs CBC & Chem 7: 11/05/24 06:59 11/05/24 06:59 Labs: Abnormal Lab Results - Last 24 Hours (Table) 11/04/24 11/04/24 11/04/24 Range/Units 15:59 17:08 17:08 RBC (4.30-5.90) m/uL Hgb (13.0-17.5) gm/dL Hct (39.0-53.0) % MCV (80.0-100.0) fL RDW (11.5-15.5) % Plt Count (150-450) k/uL ESR 120 H (0-20) mm/Hr Retic Count 2.6 H (0.5-2.0) % Sodium (137-145) mmol/L Carbon Dioxide (22-30) mmol/L BUN (9-20) mg/dL Creatinine (0.66-1.25) mg/dL Glucose (74-99) mg/dL POC Glucose (mg/dL) 260 H (70-110) mg/dL Calcium (8.4-10.2) mg/dL Iron 26 L (65-175) UG/DL TIBC 195 L (228-460) UG/DL % Saturation 13.33 L (15.00-50.00) Transferrin 139.0 L (204.0-354.0) mg/dL Ferritin 476.0 H (22.0-322.0) ng/mL Vitamin B12 1753.0 H (200.0-944.0) pg/mL Folate (4.40-31.00) ng/mL Free Roxie LC, Quant (0.33-1.94) mg/dL Free Lambda LC, Quant (0.57-2.63) mg/dL 11/04/24 11/04/24 11/04/24 Range/Units 17:08 17:08 19:58 RBC (4.30-5.90) m/uL Hgb (13.0-17.5) gm/dL Hct (39.0-53.0) % MCV (80.0-100.0) fL RDW (11.5-15.5) % Plt Count (150-450) k/uL ESR (0-20) mm/Hr Retic Count (0.5-2.0) % Sodium (137-145) mmol/L Carbon Dioxide (22-30) mmol/L BUN (9-20) mg/dL Creatinine (0.66-1.25) mg/dL Glucose (74-99) mg/dL POC Glucose (mg/dL) 324 H (70-110) mg/dL Calcium (8.4-10.2) mg/dL Iron (65-175) UG/DL TIBC (228-460) UG/DL % Saturation (15.00-50.00) Transferrin (204.0-354.0) mg/dL Ferritin (22.0-322.0) ng/mL Vitamin B12 (200.0-944.0) pg/mL Folate 4.20 L (4.40-31.00) ng/mL Free Roxie LC, Quant 20.07 H (0.33-1.94) mg/dL Free Lambda LC, Quant 20.21 H (0.57-2.63) mg/dL 11/05/24 11/05/24 11/05/24 Range/Units 06:16 06:59 06:59 RBC 2.54 L (4.30-5.90) m/uL Hgb 8.3 L (13.0-17.5) gm/dL Hct 25.8 L (39.0-53.0) % MCV 101.6 H (80.0-100.0) fL RDW 15.9 H (11.5-15.5) % Plt Count 460 H (150-450) k/uL ESR (0-20) mm/Hr Retic Count (0.5-2.0) % Sodium 134 L (137-145) mmol/L Carbon Dioxide 21 L (22-30) mmol/L BUN 58 H (9-20) mg/dL Creatinine 4.30 H (0.66-1.25) mg/dL Glucose 103 H (74-99) mg/dL POC Glucose (mg/dL) 120 H (70-110) mg/dL Calcium 7.9 L (8.4-10.2) mg/dL Iron (65-175) UG/DL TIBC (228-460) UG/DL % Saturation (15.00-50.00) Transferrin (204.0-354.0) mg/dL Ferritin (22.0-322.0) ng/mL Vitamin B12 (200.0-944.0) pg/mL Folate (4.40-31.00) ng/mL Free Roxie LC, Quant (0.33-1.94) mg/dL Free Lambda LC, Quant (0.57-2.63) mg/dL 11/05/24 Range/Units 11:54 RBC (4.30-5.90) m/uL Hgb (13.0-17.5) gm/dL Hct (39.0-53.0) % MCV (80.0-100.0) fL RDW (11.5-15.5) % Plt Count (150-450) k/uL ESR (0-20) mm/Hr Retic Count (0.5-2.0) % Sodium (137-145) mmol/L Carbon Dioxide (22-30) mmol/L BUN (9-20) mg/dL Creatinine (0.66-1.25) mg/dL Glucose (74-99) mg/dL POC Glucose (mg/dL) 193 H (70-110) mg/dL Calcium (8.4-10.2) mg/dL Iron (65-175) UG/DL TIBC (228-460) UG/DL % Saturation (15.00-50.00) Transferrin (204.0-354.0) mg/dL Ferritin (22.0-322.0) ng/mL Vitamin B12 (200.0-944.0) pg/mL Folate (4.40-31.00) ng/mL Free Roxie LC, Quant (0.33-1.94) mg/dL Free Lambda LC, Quant (0.57-2.63) mg/dL Microbiology - Last 24 Hours (Table) 10/18/24 15:00 Fungal Culture - Preliminary Sputum Assessment and Plan (1) Monoclonal gammopathy Narrative/Plan: The patient has a moderate level of M protein. At this level this could represent a MGUS. Additional workup has been ordered to check if there is more advanced disease, with serum light chain levels, as well as paraprotein studies are 24-hour urine. These are pending - Case was discussed in detail with nephrology. Assuming that the pending studies do not show any evidence of a more advanced condition, this would typically be treated as a MGUS, and followed with observation, as long as the pa tient did not have any end organ damage. Therefore in this situation to recommend treatment based on his renal failure, we would have to confirm that the renal failure is due to the monoclonal gammopathy, and not due to other conditions. For that a renal biopsy would be required. - At this time it is felt that his renal failure could also be due to interstitial nephritis. The patient has been placed on Steroids. Creatinine today was stable to mildly improved, and the patient is not oliguric. If renal function remains significantly abnormal despite current interventions, then renal biopsy will be considered ( assuming that the pending monoclonal gammopathy workup does not show any indication for active treatment directly) Current Visit: Yes Status: Acute Code(s): D47.2 - MONOCLONAL GAMMOPATHY SNOMED Code(s): 918277681 Plan: Defer to the admitting service and other consultants for management of his multiple other medical issues
--- NOTE | 2024-11-05 13:55 | P.PN ---
Subjective Progress Note Date: 11/05/24 Progress Note Date: 10/31/24 64-year-old male who is being seen in the ICU due to hypovolemic shock and rhabdomyolysis. He is a poor historian due to altered mental status and un responsiveness. All history is obtained from the chart. He initially presented to the emergency department after being found facedown on the ground with a contusion to his forehead and abrasions to his knee and left toes. She stated that he had been having nausea and vomiting for a day prior to being found down. He was noted to have diarrhea as well. Patient is a daily drinker and consumes about a fifth per day according to the notes he has not drank for the 2 days prior to this admission. He also has a history of type 1 diabetes mellitus. Initial EKG showed sinus tachycardia. Head/cervical spine CT showed no acute intracranial process and no acute fracture or traumatic subluxation of the cervical spine. Initial chest x-ray showed right middle lobe scarring/atelectasis, no acute pulmonary process. He had received 4 L of normal saline. Initial labs showed CK level of 18,113, WBCs 10.7, hemoglobin 12.5, sodium 126, creatinine 3.18 lactic acid 6.9, AST 401, ALT 65. Preliminary blood culture showed gram-positive cocci and patient was started on vancomycin. 24-hour interval change 10/12/2024 -- Patient is evaluated in the ICU. He remains intubated on mechanical ventilation - ABG shows pH 7.42, pCO2 38, pO2 74. - He is maintained on vasopressin 0.02 units/min, normal saline at 20 cc/h, IV hydrocortisone 50 mg every 6 hours, and Kefzol day 5. Labs are reviewed WBCs 17.4, hemoglobin 8.2, hematocrit 25.2, platelets 53, sodium 142, potassium 3.7, chloride 116, CO2 23, BUN 39, creatinine 1.18, glucose 258. Ionized calcium 4.4. Magnesium 1.8. Today's chest x-ray is unchanged. Wound culture gram stain of the right knee preliminary report shows rare gram positive cocci. 10/13/2024 Patient is seen and evaluated in ICU at bedside; remains on the mechanical ventilator. Discussed with nursing staff. Concerns about elevated blood sugars; patient was placed on home dose of Lantus which did not help much - Blood gases show pO2 72, pCO2 41, and pH is 7.42. - The patient is on propofol at 35 mcg/kg/min, saline at 20 cc an hour, and vital high-protein at 60, with goal of 70. Yesterday, he had a brief spontane ous breathing trial, and he did poorly. Today he will again have a spontaneous breathing trial, of pressure support of 5 and CPAP of 5. He continues on Ancef. White count 18.8, hemoglobin 8.2, hematocrit 25.8, platelet count 78,000. Sodium 144, potassium 4.1, chlorides 117, CO2 26, BUN 47, creatinine 1.18. Glucose is 340. Albumin is 2.1. Previous blood cultures from October 06 show group A streptococci. Chest x-ray shows bibasilar infiltrates. -- For hyperglycemia I will increase dose of Lantus and add insulin lispro every 4 hours; continue with current sliding scale 10/14/2024 Patient is seen in follow-up today continues on Precedex and attempting to wean maintained on mechanical ventilation with an FiO2 of 50% PEEP is 5. Per nursing staff attempting sedation holiday although did not go well yesterday. Patient is maintained on antibiotics with infectious disease following and patient is status post right knee aspiration with preliminary culture showing strep a with positive blood cultures. Patient continues with significant swelling especially the scrotal area maintained on IV Lasix and will continue. No discussion of PEG and trach as of yet and patient remains full code. Prognosis is guarded. 10/15/2024 Patient is seen this morning continues to be in the ICU currently working on weaning FiO2 and undergoing sedation holiday. Patient is eye tracking and foll owing commands and per pulmonary electrical project manager working on extubation today. Will await official report and monitor closely. Patient is continued on antibiotics with infectious disease following. 10/16/2024 Patient is seen in follow-up this morning extubated successfully currently maintained on 6 L high flow nasal cannula. Patient is awake and responding appropriately to questions and commands. Patient is extremely lethargic at times and significantly weak with significant edema noted. Sodium is elevated at 150 and is continued on D5 and water. Blood sugars have been elevated and will adjust insulins accordingly. Patient swallow eval performed and failed awaiting reevaluation with speech. Continue n.p.o. for now. White count remains elevated patient is maintained on antibiotics with infectious disease following. Awaiting repeat cultures. Procalcitonin 1.06. Questions and rahat rns were answered to the best of my ability with son at the bedside. 10/17/2024 Patient is evaluated today in follow up in the ICU. He was extubated yesterday. Continues on oxygen support on 100% BiPAP at this time. Cultures from the right knee arthroscopy reveals Strep A. Chest xray today reveals no change to the bibasilar opacities. Chest ultrasound reveals right pleural effusion pocket size 6.0 cm and left pleural effusion pocket size of 4.9 cm. Both sides marked for possible thoracentesis. Labs today reveal white blood cell count of 11.8, hgb 7.5, sodium 146, potassium 3.4, BUN 43, creatinine 1.06. Blood glucose 200s. Continues on IV amiodarone, IV cefepime, IV vancomycin. Patient is in normal sinus rhythm currently heart rate in the 80s. 10/18/2024 Patient evaluated today in follow up in the ICU. He is awake alert oriented continues on BiPAP. He is status post right sided thoracentesis with 400 mL off. Chest xray today reveals stable bilateral lower lobe infiltrate and small pl eural effusion. White blood cell count today 10.4. Continues on IV vancomycin and IV cefepime. Remains on IV amiodarone. on IV heparin. Patient remains NPO at this time, speech therapy to follow up today to reassess. 10/19/2024 Patient remains in the ICU. He is on the mechanical ventilator, FiO2 of 50%. Chest x-ray today shows left lower lobe pneumonia and/or atelectasis and pleural effusion. Elian in the left lung base is obscuring the left heart border and the hemidiaphragm has decreased in the interval. White blood cell count today is 8.4, hemoglobin 7.1, sodium 144, BUN of 40, creatinine of 1.43. His viral panel is negative for all viruses checked. 10/20/2024 Patient remains the intensive care unit he is currently on mechanical ventilator with an FiO2 of 50%. He is awake and alert and responding to commands. His chest x-ray reveals continued acute coronary cardiopulmonary disease involving the retrocardiac region with no significant interval change. Repeat sputum reveals Enterobacter he continues on IV cefepime at this time. Hemoglobin level today is 6.7 he will receive 1 unit of packed red blood cells. His creatinine is up to 1.51 today. Continues on oral amiodarone for the atrial fibrillation was taken off of anticoagulation secondary to the decreased hemoglobin. Patient is sedated with propofol at this time. He is also receiving IV Lasix daily prognosis remains guarded. 10/21/2024 Patient remains in the intensive care unit. Remains on the mechanical neville tilator. He is currently sedated with propofol. He is alert and following commands. Chest xray unchanged continues to show pneumonia with sputum culture showing enterobacter. He remains on IV cefepime. Hemoglobin better today at 7.8. BUN 42 creatinine 1.67. 10/22/2024 Patient is evaluated today in the intensive care unit. Patient was extubated today. He is awake alert and oriented. He is complaining of some back pain. Has IV dilaudid on board. Chest xray today reveals no evidence of pleural effusion, focal consolidation, or pneumothorax. He remains edematous. Creatinine 1.87 today. On IV lasix which has been increased to BID by nephrology. 3L of urine output in the last 24 hours. 10/23/2024 Patient evaluated today in follow up in the ICU. Currently on 2L of oxygen via nasal cannula with saturations of 99%. Remains on IV cefepime. Chest xray today reveals left lung airspace opacity. Creatinine up to 2.1 today IV lasix has been discontinued. Patient has been placed on normal saline at 75 mls/hr. Speech therapy re consulted for swallow evaluation post extubation. 10/24/2024 Patient evaluated today in follow up remains in the ICU. Patient underwent neuro evaluation today. Brain CT was done revealing no acute bleed or mass effect. Mild age-appropriate senescent changes. Marked calcification of basal artery and significant stenosis cannot be excluded. Mild to moderate fluid in the mastoid air cells bilaterally. BUN 46 creatinine 2.12. Continues on normal saline at 75 mls/hr. Continues on IV cefepime. 10/25/2024 Patient remains in the ICU with multiple consultations following. Patient continues to be encephalopathic with neurology following. Orthopedics to reevaluate the upper extremity weakness and also vascular surgery was consulted as there is concerns of occlusive disease of the left lower extremity with discoloration of the toes. Patient continues on antibiotics and continues to require 2 L of oxygen. Patient is maintained on dysphagia ground diet and strongly recommend aspiration precautions and supervision with meals along with head of the bed elevated 30 to 45 degrees at all times. Patient is currently afebrile with no reports of chest pain or shortness of breath. 1 dose of IV Lasix was given today. 10/26/2024 Patient remains in the ICU. Continues to be confused and more lethargic today. Neurology following and felt this was encephalopathy. He is not using this right arm and he does have pain when touching that arm. It is edematous.Vascular e valated the patient for the left diabetic foot wounds which have dry gangrene and did not feel there was ischemia to the leg. He remains on 2L of oxygen via nasal cannula. Labs today hemoglobin 7.3, BUN 51, creatinine 2.66. Remains on IV cefepime which can also cause confusion. 10/27/2024 Patient evaluated in follow-up in the intensive care unit. He is currently sitting up in the chair family at the bedside. He is more awake alert and oriented he is able to state his name and birthday. He does continue to have significant right upper extremity weakness and also mild right lower extremity weakness. This was discussed with neurology and as his mentation has improved brain and cervical neck MRI are both ordered for tomorrow. His creatinine today is 3.0. He has been taken off of the normal saline and also remains off diuretics. Patient was transition to IV ertapenem taken off of the cefepime at this time. Chest x-ray shows no change in the left lung opacification and probable small pleural effusion. Development of a small right pleural effusion. 10/28/2024 Patient is seen in the ICU with multiple consultations following lethargic although arousable awaiting a transfer out of the ICU once a bed on 3 S. becomes available. Patient is awake although fatigues easily. Patient reports he is eating although not eating much and continues to have weakness. Recommend PT/OT therapy daily. Awaiting cervical neck MRI which has been pending for quite some time. Kidney functions worsening and 3.6 today. Blood pressures are soft and patient was given a dose of Lasix yesterday. Urine output remains marginal and will be monitored closely. Recommend strict intake and output monitoring and documenting. Midodrine being added per nephrology and will follow-up on repeat labs. Patient continues on ertapenem with infectious disease following. Blood sugars have been on the lower side and will adjust insulins and continue with sliding scale with Accu-Cheks before meals and at bedtime. Patient currently denies chest pain or worsening shortness of breath and is currently maintained on 3 L via nasal cannula and oxygen saturations have been above 94%. 10/29/2024 Patient evaluated today on the medical floor as a movement of the intensive care unit. He is able to sit at the edge of the bed today and will continue to work with PT OT daily. He will need subacute rehab on discharge. He is still awaiting a brain and cervical neck MRI unsure if he can have an MRI due to the surgical plates in his neck discussed this with nursing. Also discussed with orthopedics that he is unable to get contrast due to the renal dysfunction and per Dr. Foss group the MRI needs to be with contrast and we will hold off on the lumbar MRI with and without contrast at this time. Did undergo barium swallow and is on pured diet with nectar thick liquids. He remains off of the IV cefepime at this time and currently on IV ertapenem. He remains on IV Lasix daily. 10/30/2024 Patient evaluated in follow-up on the medical floor. He has been moved out of the the intensive care unit. He is sitting up in the chair. He continues with significant right-sided weakness. Underwent brain MRI with no evidence of an acute stroke at this time. Follow-up with orthopedics that he is unable to get this lumbar MRI with and without contrast. Creatinine up to 4.46 today. He is on IV Lasix daily. 10/31/2024 Patient is seen in follow-up today currently sitting up in the chair and has worked with physical therapy reports to being extremely weak. Kidney functions continue to worsen and nephrology following closely and is continued on IV Lasix daily. Patient is making urine although attempted trial void yesterday and retained over 800 and Hinson catheter was placed again. Will add Flomax and monitor intake and output closely. Discussing renal replacement daily although holding off today. Will follow-up with repeat labs. Patient denies worsening shortness of breath and reports is improving daily. Patient reports is tolerating diet with no reported nausea or vomiting. 11/01/2024 Patient evaluated in follow up today sitting up in the chair. Continues with significant weakness and more pronounced on the right. He continues on IV lasix daily. Remains edematous. BUN up to 60 and creatinine of 4.93 today. He has had about 1.6 L of fluid off in the last 24 hours. He continues on IV ertapenem. 11/02/2024 No acute events overnight. Remains on IV ertapenem. Hgb today 6.9, no evidence for active bleeding. Sodium 134, BUN 59, creatinine 5.24. Continues with indwelling hinson catheter. 11/03/2024 Patient is eval today in follow-up in the medical floor. No acute complaints overnight. He is resting comfortably today his hemoglobin is better at 7.5 post 1 unit of packed red blood cells. Labs today reveal a BUN of 59 creatinine of 5.11. There is concern for interstitial nephritis he remains on oral prednisone. 11/04/2024 Patient evaluated in follow-up in the medical floor. He is awake alert oriented he is moving his right upper extremity more today and there is less edema noted. Patient's continues on a course of oral prednisone for possible interstitial nephritis. His renal function today shows mild improvement with a BUN of 59 creatinine of 4.77. White blood cell count 7.5 hemoglobin remained stable at 7.8. Repeat chest x-ray reveals low lung volumes with a generalized hazy appearance of the lung base possibly representing bilateral pleural effusions. 11/05/2024 Patient evaluated today in follow up on the medical floor. Patient awake alert and oriented. He continues on course of oral prednisone. BUN 58 creatinine 4.30. Magnesium 1.6. Review of systems: Constitutional: reports of fatigue, no fever, or chills Cardiovascular: No reports of chest pain or palpitations Respiratory: No reports of worsening shortness of breath reports continued weak cough GI: No reports of nausea, vomiting, or diarrhea, : No reports of dysuria or retention Neurovascular: reports of generalized weakness and continued swelling of upper and lower extremities that is slightly improved All medications have been reviewed Physical exam: Gen: This is a 64-year-old male who is maintained on 3 L nasal cannula., well- developed, elderly appearing, ill-appearing, appears older than stated age, HEENT: Head is atraumatic, normocephalic. Pupils equal, round. Sclerae is anicteric. NECK: Supple. No JVD. No lymphadenopathy. No thyromegaly. LUNGS: Diminished breath sounds bilaterally with some bronchial congestion and coarse scattered rhonchi. No intercostal retractions. HEART: S1, S2 are muffled ABDOMEN: Soft. Somewhat taut, positive bowel sounds are present. No masses. No tenderness. Significant scrotal edema noted, minimally improved EXTREMITIES: Bilateral upper and lower extremity edema noted. No calf tenderness. Generalized upper and lower extremity edema along with scrotal swelling noted Right upper extremity weakness. NEUROLOGICAL: Patient is awake, alert and oriented x 2, diffusely weak Assessment: -Chronic alcohol abuse with acute alcohol withdrawal syndrome; Thiamine and protonix. No longer going through acute withdrawals. -Altered mental status acute metabolic and septic encephalopathy. Brain CT reveals no acute stroke. Patient continues to have right upper and lower extremity weakness. Unable to officially rule out stroke. -Acute hypoxic respiratory failure was intubated following knee surgery on 10/10 and successfully extubated on 10/15/24. re-intubated on 10/18/2024 and now extubated on 10/22/24. Status post bronchoscopy on 10/18. -Congestive heart failure with an EF of 45%, diastolic dysfunction -Paroxysmal atrial fibrillation transitioned to oral amiodarone Currently on subq heparin. Was taken off IV heparin due to decreased hemoglobin -Acute blood loss anemia requiring transfusion, hgb was stable down to 6.9 today and will receive 1 unit PRBC -Right sided pleural effusion status post right sided thoracentesis with 400 mL off. -Oral thrush -Rhabdomyolysis secondary to immobility due to fall. Improving with IV hydration. We will continue to monitor strict STERLING's, daily weights, renal function electrolytes -Acute kidney injury secondary to ATN due to to septic shock and rhabdomyolysis. Was initially improving and now with worsening renal function, nephrology following with no immediate plans for renal replacement although has been discussing the possible need for is kidney functions continue to worsen. Patient is making good urine output although was retaining and did require Hinson catheter to be replaced. Will add Flomax. There is concern for possible underlying interstitial nephritis patient was started on oral prednisone. -Relative adrenal insufficiency. On IV hydrocortisone. -Transaminitis. Improving. -Streptococcus group A bacteremia. Currently on ertapenem per ID recommendation; continue to monitor CBC, CRP and procalcitonin. Possibly secondary to right knee infection -Right knee pain with swelling, status post aspiration along with arthroscopic l avage, culture showing strep a with septic arthritis -Hyponatremia, likely hypovolemic; resolved. -Episode of hypernatremia treated with D5W, sodium normalized. This was due to free water deficit. 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 -History of coronary artery disease with previous catheterization and stent placement. -Hypertension; currently not on any antihypertensive medication. -Sepsis, present on admission possibly secondary to right knee arthritis with bacteremia GI prophylaxis DVT prophylaxis No code Plan: status post arthroscopy with lavage of the right knee and final cultures showing Strep A. Currently on ertapenem per ID recommendations and cefepime has been discontinued. Repeat blood cultures thus far are negative and will continue on IV antibiotics with ID following Sputum culture showing Enterobacter patient is status post bronchoscopy sputum cultures are now negative Speech therapy has been reconsulted post extubation and is maintained on a dysphagia ground diet and strongly recommend aspiration precautions with supervision with meals and head of the bed elevated 30 to 45 degrees at all times Blood sugars variable and have been steadily increasing and will adjust insulins including increasing long-acting slightly. Continue with Accu-Cheks before meals and at bedtime and sliding scale Follow-up on repeat labs and monitor kidney functions and electrolytes closely. Nephrology following closely discussing possible renal replacement and recommend monitoring urine output closely Patient has not started on a course of oral prednisone with concern for interstitial nephritis. Oncology was consulted for abnormal blood levels of IgG kappa as well as 2 m-spikes noted on SPEP. Additional blood work has been ordered. Orthopedics did recommend lumbar spine MRI with and without contrast although patients renal function now with creatinine of 4.46 he is unable to get oral contrast at this time. Physical therapy and occupational therapy have been re-consulted. And recommend evaluating daily as patient is significantly weak and has had prolonged hospitalization. Patient requesting [place] on discharge when medically stable. Repeat blood work in the AM Overall prognosis remains guarded at this time The impression and plan of care has been dictated by Sharlene Pendleton, Nurse Practitioner as directed. Dr. Randall MD I have performed a history and examination and MDM of this patient, discussed the same with the dictator, and agree with the dictator's assessment and plan as written ,documented as a scribe. Based on total visit time, I have performed more than 50% of the visit. Objective - Vital Signs Vital signs: Vital Signs Temp 98.4 F 11/05/24 09:20 Pulse 84 11/05/24 12:16 Resp 16 11/05/24 09:20 BP 136/68 11/05/24 09:20 Pulse Ox 97 11/05/24 09:20 FiO2 4 10/28/24 04:00 Intake & Output 11/04/24 11/05/24 11/05/24 18:59 06:59 18:59 Intake Total 354 360 Output Total 1675 500 Balance -1321 -140 Weight 93 kg 90.5 kg Intake: Oral 354 360 Output: Urine 1675 500 Other: Voiding Method Indwelling Catheter Indwelling Catheter Indwelling Catheter # Bowel Movements 1 ABP, PAP, CO, CI - Last Documented Arterial Blood Pressure 128/42 - Labs CBC & Chem 7: 11/05/24 06:59 11/05/24 06:59 Labs: Abnormal Lab Results - Last 24 Hours (Table) 11/04/24 11/04/24 11/04/24 Range/Units 15:59 17:08 17:08 RBC (4.30-5.90) m/uL Hgb (13.0-17.5) gm/dL Hct (39.0-53.0) % MCV (80.0-100.0) fL RDW (11.5-15.5) % Plt Count (150-450) k/uL ESR 120 H (0-20) mm/Hr Retic Count 2.6 H (0.5-2.0) % Sodium (137-145) mmol/L Carbon Dioxide (22-30) mmol/L BUN (9-20) mg/dL Creatinine (0.66-1.25) mg/dL Glucose (74-99) mg/dL POC Glucose (mg/dL) 260 H (70-110) mg/dL Calcium (8.4-10.2) mg/dL Iron 26 L (65-175) UG/DL TIBC 195 L (228-460) UG/DL % Saturation 13.33 L (15.00-50.00) Transferrin 139.0 L (204.0-354.0) mg/dL Ferritin 476.0 H (22.0-322.0) ng/mL Vitamin B12 1753.0 H (200.0-944.0) pg/mL Folate (4.40-31.00) ng/mL Free [place] LC, Quant (0.33-1.94) mg/dL Free Lambda LC, Quant (0.57-2.63) mg/dL 11/04/24 11/04/24 11/04/24 Range/Units 17:08 17:08 19:58 RBC (4.30-5.90) m/uL Hgb (13.0-17.5) gm/dL Hct (39.0-53.0) % MCV (80.0-100.0) fL RDW (11.5-15.5) % Plt Count (150-450) k/uL ESR (0-20) mm/Hr Retic Count (0.5-2.0) % Sodium (137-145) mmol/L Carbon Dioxide (22-30) mmol/L BUN (9-20) mg/dL Creatinine (0.66-1.25) mg/dL Glucose (74-99) mg/dL POC Glucose (mg/dL) 324 H (70-110) mg/dL Calcium (8.4-10.2) mg/dL Iron (65-175) UG/DL TIBC (228-460) UG/DL % Saturation (15.00-50.00) Transferrin (204.0-354.0) mg/dL Ferritin (22.0-322.0) ng/mL Vitamin B12 (200.0-944.0) pg/mL Folate 4.20 L (4.40-31.00) ng/mL Free [place] LC, Quant 20.07 H (0.33-1.94) mg/dL Free Lambda LC, Quant 20.21 H (0.57-2.63) mg/dL 11/05/24 11/05/24 11/05/24 Range/Units 06:16 06:59 06:59 RBC 2.54 L (4.30-5.90) m/uL Hgb 8.3 L (13.0-17.5) gm/dL Hct 25.8 L (39.0-53.0) % MCV 101.6 H (80.0-100.0) fL RDW 15.9 H (11.5-15.5) % Plt Count 460 H (150-450) k/uL ESR (0-20) mm/Hr Retic Count (0.5-2.0) % Sodium 134 L (137-145) mmol/L Carbon Dioxide 21 L (22-30) mmol/L BUN 58 H (9-20) mg/dL Creatinine 4.30 H (0.66-1.25) mg/dL Glucose 103 H (74-99) mg/dL POC Glucose (mg/dL) 120 H (70-110) mg/dL Calcium 7.9 L (8.4-10.2) mg/dL Iron (65-175) UG/DL TIBC (228-460) UG/DL % Saturation (15.00-50.00) Transferrin (204.0-354.0) mg/dL Ferritin (22.0-322.0) ng/mL Vitamin B12 (200.0-944.0) pg/mL Folate (4.40-31.00) ng/mL Free Argentine LC, Quant (0.33-1.94) mg/dL Free Lambda LC, Quant (0.57-2.63) mg/dL 11/05/24 Range/Units 11:54 RBC (4.30-5.90) m/uL Hgb (13.0-17.5) gm/dL Hct (39.0-53.0) % MCV (80.0-100.0) fL RDW (11.5-15.5) % Plt Count (150-450) k/uL ESR (0-20) mm/Hr Retic Count (0.5-2.0) % Sodium (137-145) mmol/L Carbon Dioxide (22-30) mmol/L BUN (9-20) mg/dL Creatinine (0.66-1.25) mg/dL Glucose (74-99) mg/dL POC Glucose (mg/dL) 193 H (70-110) mg/dL Calcium (8.4-10.2) mg/dL Iron (65-175) UG/DL TIBC (228-460) UG/DL % Saturation (15.00-50.00) Transferrin (204.0-354.0) mg/dL Ferritin (22.0-322.0) ng/mL Vitamin B12 (200.0-944.0) pg/mL Folate (4.40-31.00) ng/mL Free Argentine LC, Quant (0.33-1.94) mg/dL Free Lambda LC, Quant (0.57-2.63) mg/dL Microbiology - Last 24 Hours (Table) 10/18/24 15:00 Fungal Culture - Preliminary Sputum Assessment and Plan Time with Patient: Less than 30
--- NOTE | 2024-11-05 14:56 | P.PN ---
Subjective Progress Note Date: 11/05/24 Principal diagnosis: Reason for follow-up is Streptococcus agalactiae bacteremia Patient is a 64-year-old male past medical history significant for diabetes mellitus hypertension hyperlipidemia [place] osteoarthritis coronary disease patient was brought into the hospital after apparently the patient was found to be facedown on the ground with contusion to his forehead and abrasion to his knee and some bloody toes, patient did have a fever subsequently blood cultures came back positive with Streptococcus agalactiae prompting this consultation. Patient noticed to have swelling of the right knee aspirate was purulent subsequently the patient did have a right knee washout completed by orthopedics on 10/10/2024. On today's evaluation that is 11/05/2024, Patient is afebrile this morning patient denies having any chest pain shortness of breath or cough, the patient is currently on 3 L current oxygen patient denies any abdominal pain no diarrhea no nausea no vomiting. The patient white count is 9.8, creatinine is 4.30 Objective - Vital Signs Vital signs: Vital Signs Temp 98.4 F 11/05/24 09:20 Pulse 84 11/05/24 12:16 Resp 16 11/05/24 09:20 BP 136/68 11/05/24 09:20 Pulse Ox 97 11/05/24 09:20 FiO2 4 10/28/24 04:00 Intake & Output 11/04/24 11/05/24 11/05/24 18:59 06:59 18:59 Intake Total 354 360 Output Total 1675 500 Balance -1321 -140 Weight 93 kg 90.5 kg Intake: Oral 354 360 Output: Urine 1675 500 Other: Voiding Method Indwelling Catheter Indwelling Catheter Indwelling Catheter # Bowel Movements 1 ABP, PAP, CO, CI - Last Documented Arterial Blood Pressure 128/42 - Exam GENERAL DESCRIPTION: Middle-age male lying in bed in no distress RESPIRATORY SYSTEM: Unlabored breathing , coarse breath sounds bilaterally HEART: S1 S2 regular rate and rhythm , ABDOMEN: Soft , no tenderness EXTREMITIES: Swelling to the lower extremity and right knee but no redness - Labs CBC & Chem 7: 11/05/24 06:59 11/05/24 06:59 Labs: Abnormal Lab Results - Last 24 Hours (Table) 11/04/24 11/04/24 11/04/24 Range/Units 15:59 17:08 17:08 RBC (4.30-5.90) m/uL Hgb (13.0-17.5) gm/dL Hct (39.0-53.0) % MCV (80.0-100.0) fL RDW (11.5-15.5) % Plt Count (150-450) k/uL ESR 120 H (0-20) mm/Hr Retic Count 2.6 H (0.5-2.0) % Sodium (137-145) mmol/L Carbon Dioxide (22-30) mmol/L BUN (9-20) mg/dL Creatinine (0.66-1.25) mg/dL Glucose (74-99) mg/dL POC Glucose (mg/dL) 260 H (70-110) mg/dL Calcium (8.4-10.2) mg/dL Iron 26 L (65-175) UG/DL TIBC 195 L (228-460) UG/DL % Saturation 13.33 L (15.00-50.00) Transferrin 139.0 L (204.0-354.0) mg/dL Ferritin 476.0 H (22.0-322.0) ng/mL Vitamin B12 1753.0 H (200.0-944.0) pg/mL Folate (4.40-31.00) ng/mL Free Ricardo LC, Quant (0.33-1.94) mg/dL Free Lambda LC, Quant (0.57-2.63) mg/dL 11/04/24 11/04/24 11/04/24 Range/Units 17:08 17:08 19:58 RBC (4.30-5.90) m/uL Hgb (13.0-17.5) gm/dL Hct (39.0-53.0) % MCV (80.0-100.0) fL RDW (11.5-15.5) % Plt Count (150-450) k/uL ESR (0-20) mm/Hr Retic Count (0.5-2.0) % Sodium (137-145) mmol/L Carbon Dioxide (22-30) mmol/L BUN (9-20) mg/dL Creatinine (0.66-1.25) mg/dL Glucose (74-99) mg/dL POC Glucose (mg/dL) 324 H (70-110) mg/dL Calcium (8.4-10.2) mg/dL Iron (65-175) UG/DL TIBC (228-460) UG/DL % Saturation (15.00-50.00) Transferrin (204.0-354.0) mg/dL Ferritin (22.0-322.0) ng/mL Vitamin B12 (200.0-944.0) pg/mL Folate 4.20 L (4.40-31.00) ng/mL Free Ricardo LC, Quant 20.07 H (0.33-1.94) mg/dL Free Lambda LC, Quant 20.21 H (0.57-2.63) mg/dL 11/05/24 11/05/24 11/05/24 Range/Units 06:16 06:59 06:59 RBC 2.54 L (4.30-5.90) m/uL Hgb 8.3 L (13.0-17.5) gm/dL Hct 25.8 L (39.0-53.0) % MCV 101.6 H (80.0-100.0) fL RDW 15.9 H (11.5-15.5) % Plt Count 460 H (150-450) k/uL ESR (0-20) mm/Hr Retic Count (0.5-2.0) % Sodium 134 L (137-145) mmol/L Carbon Dioxide 21 L (22-30) mmol/L BUN 58 H (9-20) mg/dL Creatinine 4.30 H (0.66-1.25) mg/dL Glucose 103 H (74-99) mg/dL POC Glucose (mg/dL) 120 H (70-110) mg/dL Calcium 7.9 L (8.4-10.2) mg/dL Iron (65-175) UG/DL TIBC (228-460) UG/DL % Saturation (15.00-50.00) Transferrin (204.0-354.0) mg/dL Ferritin (22.0-322.0) ng/mL Vitamin B12 (200.0-944.0) pg/mL Folate (4.40-31.00) ng/mL Free Ricardo LC, Quant (0.33-1.94) mg/dL Free Lambda LC, Quant (0.57-2.63) mg/dL 11/05/24 Range/Units 11:54 RBC (4.30-5.90) m/uL Hgb (13.0-17.5) gm/dL Hct (39.0-53.0) % MCV (80.0-100.0) fL RDW (11.5-15.5) % Plt Count (150-450) k/uL ESR (0-20) mm/Hr Retic Count (0.5-2.0) % Sodium (137-145) mmol/L Carbon Dioxide (22-30) mmol/L BUN (9-20) mg/dL Creatinine (0.66-1.25) mg/dL Glucose (74-99) mg/dL POC Glucose (mg/dL) 193 H (70-110) mg/dL Calcium (8.4-10.2) mg/dL Iron (65-175) UG/DL TIBC (228-460) UG/DL % Saturation (15.00-50.00) Transferrin (204.0-354.0) mg/dL Ferritin (22.0-322.0) ng/mL Vitamin B12 (200.0-944.0) pg/mL Folate (4.40-31.00) ng/mL Free Ricardo LC, Quant (0.33-1.94) mg/dL Free Lambda LC, Quant (0.57-2.63) mg/dL Microbiology - Last 24 Hours (Table) 10/18/24 15:00 Fungal Culture - Preliminary Sputum Assessment and Plan (1) Sepsis Current Visit: Yes Status: Acute Code(s): A41.9 - SEPSIS, UNSPECIFIED ORGANISM SNOMED Code(s): 12904034 (2) Streptococcal bacteremia Current Visit: Yes Status: Acute Code(s): R78.81 - BACTEREMIA; B95.5 - UNSP STREPTOCOCCUS THE CAUSE OF DISEASES [facility] SNOMED Code(s): 718184267678 Plan: 1patient presented to the hospital with sepsis in this patient who did have fever tachycardia elevated white count and now with evidence of streptococcal bacteremia which is usually of skin and soft tissue origin 2-patient noticed to have right knee effusion has been evaluated by orthopedics and is status post aspiration with purulent drainage subsequently did have right knee washout by orthopedic cultures are pending may need further workup including MRI of the spine when stable. Ortho is following the patient closely 3patient right knee fluid culture also came back positive with group A strep 4-patient did have left-sided pneumonia patient required reintubation and also status post bronchoscopy and lavage sputum culture so far negative, initial culture growing Enterobacter that is sensitive to cefepime/ertapenem patient subsequently has been successfully extubated 5the patient remains to be afebrile white count has been normal, 6patient will be treated with ertapenem 500 mg daily awaiting improvement in his kidney function and monitor clinical course closely Dictation was produced using [employer] dictation software. please excuse any grammatical, word or spelling errors. Time with Patient: Less than 30
[2024-11-05 16:31] LABS: Glucose,Whole Blood 260 mg/dL (70-110)
--- NOTE | 2024-11-05 18:47 | P.PN ---
Subjective Progress Note Date: 11/05/24 Patient is a 64-year-old male who is being seen in the ICU due to hypovolemic shock and rhabdomyolysis. He is a poor historian due to altered mental status and unresponsiveness. All history is obtained from the chart. He initially presented to the emergency department after being found facedown on the ground with a contusion to his forehead and abrasions to his knee and left toes. She stated that he had been having nausea and vomiting for a day prior to being found down. He was noted to have diarrhea as well. Patient is a daily drinker and consumes about a fifth per day according to the notes he has not drank for the 2 days prior to this admission. He also has a history of type 1 diabetes mellitus. Initial EKG showed sinus tachycardia. Head/cervical spine CT showed no acute intracranial process and no acute fracture or traumatic subluxation of the cervical spine. Initial chest x-ray showed right middle lobe scarring/atelectasis, no acute pulmonary process. He had received 4 L of normal saline. Initial labs showed CK level of 18,113, WBCs 10.7, hemoglobin 12.5, sodium 126, creatinine 3.18 lactic acid 6.9, AST 401, ALT 65. Preliminary blood culture showed gram-positive cocci and patient was started on vancomycin. 10/07/2024. He is maintained on a bicarb drip as well as normal saline. He remains unresponsive to verbal stimulation. He is maintained on CIWA protocol. Labs today: WBCs 5.1, hemoglobin 11.6, sodium 126, potassium 3.8, BUN 53, creatinine 3.12, ammonia <9. Progress note dated October 08, 2024. 64-year-old male seen in room 252. I was notified by the nurse at nighttime, that the patient's blood pressure continued to drop. We bumped up his dose of n orepinephrine, and gave him a liter of fluid. In addition, his respiratory status was marginal, and the blood gas was ordered. The patient is currently on 6 L of oxygen. The patient was admitted on October 06. He is getting saline at 150 cc an hour, and Precedex at 0.4 mcg/kg/h. His norepinephrine is running at 31 mcg/min. There is staphylococci in his blood. I have asked the nurses to add Ativan Dilaudid and Haldol to his regimen, to try to wean him off the dexmedetomidine. White count of 9.1, hemoglobin hematocrit 29, platelet count 88,000. Sodium 131, potassium 3, chloride 92, CO2 32, BUN 50, creatinine 2.34. Glucose is 167. Calcium is 6.3. CK was 8796. AST is 507. ALT is 136. Albumin is 2.2. Blood cultures from the were positive for Streptococcus group A. Chest x-ray shows bilateral effusions, small, with low lung volumes. 10/09/2024. Patient seen as a followup. No acute events overnight. He is currently on 6 L of oxygen. He was on dextrose 5% - 0.9% NaCl, blood sugars have been in the mid to high 200s. He is receiving Kefzol for streptococcal group A bacteremia. Precedex has been turned off. Levophed is 0.3 mcg/kg/min. WBCs 12.3, hemoglobin 9.7, hematocrit 27.7, platelets 48. Sodium 133, potassium 3.7, chloride 105, CO2 19, BUN 42, creatinine 1.62. Glucose 267. Calcium 6.4. CK 3888. AST 323, ALT 78. Albumin 2.2. Today's chest x-ray showed cardiomegaly, pulmonary vascular congestion, and bilateral pleural effusions. 10/10/2024. Patient is being seen as a followup in the ICU. Overnight he went into A-fib with rapid ventricular rate, was started on an amiodarone drip at 1mg/min, and converted back to normal sinus rhythm. His pressures remain in the 100s/40s and pulses are He is currently on 15 L high flow oxygen. He is on no rmal saline at 150 cc/h. He is maintained on Kefzol for streptococcal group A bactermia, today is day 3. Levophed is at 0.11 mcg/kg/min, vasopressin at 0.02 mcg/kg/min. WBCs 16.4, hemoglobin 9.8, hematocrit 29.6, platelets 38. Sodium 138, potassium 3.5, chloride 112, CO2 23, BUN 35, creatinine 1.26, glucose 164. Ionized calcium 4.1. CK 988. AST 154, ALT 36. Cortisol 32. TSH 4.3830. In addition, he removed his NG tube overnight. Today's chest x-ray is unchanged from previous. He remains lethargic and barely responsive to verbal stimulation. 10/11/2024. Patient is seen in the ICU. He underwent arthroscopic lavage of the right knee yesterday evening and returned to the ICU intubated on mechanical ventilation. He is currently on assist-control mode with rate 18, tidal volume 450, FiO2 70%, PEEP 5. ABG shows pH 7.34, pCO2 37, pO2 95. He is maintained on vasopressin 0.02 units/min, Levophed 0.14 mcg/kg/min, normal saline at 100 cc/h, and Kefzol day 4. WBCs 18.1, hemoglobin 8.8, hematocrit 27.6, platelets 52, sodium 140, potassium 3.9, chloride 115, CO2 17, BUN 35, creatinine 1.08, glucose 191, creatinine kinase 215. Calcium 6.5. Magnesium 1.6. He began IV hydrocortisone 50 mg every 6 hours yesterday. Liver ultrasound performed yesterday revealed no acute process. Chest x-ray today is unchanged from previous. 10/12/2024. Patient is evaluated in the ICU. He remains intubated on mechanical ventilation on assist-control mode with rate 18, tidal volume 450, Fi O2 50%, PEEP 5. ABG shows pH 7.42, pCO2 38, pO2 74. His RSBI yesterday was 110 and he was unable to follow commands so he could not be extubated. He is maintained on vasopressin 0.02 units/min, normal saline at 20 cc/h, IV hydrocortisone 50 mg every 6 hours, and Kefzol day 5. WBCs 17.4, hemoglobin 8.2, hematocrit 25.2, platelets 53, sodium 142, potassium 3.7, chloride 116, CO2 23, BUN 39, creatinine 1.18, glucose 258. Ionized calcium 4.4. Magnesium 1.8. Today's chest x-ray is unchanged. Wound culture gram stain of the right knee preliminary report shows rare gram positive cocci. Progress note dated October 13, 2024. 64-year-old male seen in the intensive care unit, room 252. The patient remains on the mechanical ventilator. He is on volume assist-control, rate 18, tidal volume 450, FiO2 50%, PEEP of 5. Blood gases show pO2 72, pCO2 41, and pH is 7.42. The patient is on propofol at 35 mcg/kg/min, saline at 20 cc an hour, and vital high-protein at 60, with goal of 70. Yesterday, he had a brief spontaneous breathing trial, and he did poorly. Today he will again have a s pontaneous breathing trial, of pressure support of 5 and CPAP of 5. He continues on Ancef. White count 18.8, hemoglobin 8.2, hematocrit 25.8, platelet count 78,000. Sodium 144, potassium 4.1, chlorides 117, CO2 26, BUN 47, creatinine 1.18. Glucose is 340. Albumin is 2.1. Previous blood cultures from October 06 show group A streptococci. Chest x-ray shows bibasilar infiltrates. The patient is seen today October 28, 2024 in follow-up in the intensive care unit. He is currently sitting up in bed. Awake. Somewhat slow to respond. He is maintaining good O2 saturation mid 90s on 3 L/min per nasal cannula. He has been afebrile. Hemodynamically stable. Right knee culture was positive for strep A. Previous sputum culture had been positive for enterofactor aerogenes. Follow-up cultures revealed no growth. Pleural fluid cultures revealed no growth. He 2. Potassium 4.9. Bicarb 21. BUN 58. Creatinine 3.68. Glucose 66. He is continued on DuoNeb and elations. Heparin for DVT prophylaxis. Antibiotics in the form of ertapenem. The patient is seen today October 29, 2024 in follow-up on the selective care unit. He was transferred out of the ICU yesterday. He is currently sitting up in bed. Awake and alert. Still somewhat slow to respond. He is maintaining O2 saturations in the 90s on 3 L/min per nasal cannula. He is been afebrile. Hemodynamically stable. He is status post 1 unit of packed red blood cells this admission. Current hemoglobin 8.0. Platelets 332. White count 7.9. Sodium 139. Potassium 4.4. Bicarb 23. BUN 59. Creatinine 4.24. Glucose 78. Urinalysis with moderate bacteria. Culture pending. He remains on ertapenem. Continued on bronchodilators. Remains on IV diuretics. Currently in a negative balance. Heparin for DVT prophylaxis. The patient is seen today October 30, 2024 in follow-up on the selective care unit. He is currently up in a chair at the bedside. Awake and alert in no acute distress. He is maintaining O2 saturations in the 90s on 3 L/min per nasal cannula. No IV fluids. He is continued on antibiotics in the form of ertapenem. Continued on IV diuretics. Heparin for DVT prophylaxis. Urine culture showing yeast species. Pleural fluid cultures revealed no growth. White count 10.4. Hemoglobin 8.0. MCV 106.8. Platelets 374. Sodium 137. Potassium 4.2. Bicarb 20. BUN 62. Creatinine 4.46. Glucose 87. The patient is seen today October 31, 2024 in follow-up on the selective care unit. He is currently sitting up in bed. Awake and alert in no acute distress. He is maintaining O2 saturations in the 90s on 3 L/min per nasal cannula. White count 8.7. Hemoglobin 7.5. Platelets 365. Sodium 138. Potassium 4.2. Bicarb 21. BUN 60. Creatinine 4.87. Glucose 207. He remains on DuoNeb i nhalations. Antibiotics in the form of ertapenem. Currently on fluconazole. Remains on IV diuretics. He is making urine. The patient is seen today November 01, 2024 in follow-up on the selective care unit. He is currently sitting up in a chair. Awake and alert in no acute distress. Maintaining O2 saturations in the 90s on 2 L/min per nasal cannula. Sodium 136. Potassium 4.0. Bicarb 21. BUN 60. Creatinine 4.93. Glucose 114. He is continued on ertapenem. Now initiated on Diflucan. Heparin for DVT prophylaxis. He remains on IV Lasix. Making urine. Creatinine continues to rise. May need renal replacement therapy per nephrology. Progress note dated November 02, 2024. 64-year-old male who is now been in the hospital for 27 days. The patient is seen today in room 384. The patient remains on oxygen, by nasal cannula at 3 L. Saturations are in the low 90s. The patient is laying nearly flat in bed. No distress. Current labs include a white count 5.6, hemoglobin 6.9, hematocrit 21.8, and a platelet count is normal. Sodium 136, potassium 4.6, chlorides 105, CO2 24, BUN 59, creatinine 5.24. Glucose is 166. Calcium is 8.5. Progress note dated November 03, 2024. 64-year-old male seen today in room 384. His overall condition is unchanged. He has not been in the hospital for nearly a month. He is on 2 L of oxygen. No IV fluids. Clinically, he is unchanged. Currently white count is 6.1, hemoglobin 7.5, hematocrit 23.6, platelet count 342,000. Sodium 134, potassium 4.4, chlorides 104, CO2 23, BUN is 59, and creatinine is 5.11. Glucose is 241. Calcium is 8, magnesium is 1.3. On 11/04/2024, the patient is being seen for a follow-up. The patient is awake and alert and communicating. He denies having any respiratory difficulties. In regards to his altered mentation, the patient underwent an MRI of the brain that showed no evidence of any infarct. His mental status is gradually improved and he seems to be back to his baseline. In terms of his respiratory status, he is still on 2 L of oxygen by nasal cannula with a pulse ox of around 90 to 91%. A repeat chest x-ray was done today and it showed smaller lung volumes and generalized hazy appearance in the lung bases probably due to underlying residual pleural effusion. The patient otherwise is maintained on DuoNeb nebulized treatments [id number]. The patient is on Lasix 40 mg IV every 24 hours. The patient remains on IV Invanz. He is on amiodarone 200 mg p.o. twice daily and metoprolol 12.5 mg twice daily for rate control and is also on a prednisone burst taper. He remains on Levemir insulin 20 units twice a day and NovoLog scan scale coverage. He is quite weak and debilitated due to this prolonged hospitalization. On 11/05/2024, the patient remains quite debilitated and weak. No confusion. No altered mentation. No signs of any delirium tremens. The patient is still on oxygen at 3 L with a pulse ox of 94%. Blood work from today shows a white cell count of 9.8 with a hemoglobin 8.3 and a platelet count of 460. BUN is 58 and a creatinine is down to 4.3 and a sodium levels at 134. The patient is being monitored by nephrology. Renal function is improving. Nonoliguric. He is on IV Lasix. He does have some trace edema lower extremities bilaterally. As such, we will continue the current treatment for now and avoid any nephrotoxic agents. The patient is on DuoNeb updrafts, the patient is on prednisone burst taper and currently is on a dose of 30 mg p.o. today. Remains on Levemir insulin 20 units twice a day NovoLog sign scale coverage. He remains on IV Invanz and Diflucan. The chest x-ray done on 11/04/2024 showed smaller lung volumes with generalized haziness possibly presenting some pulm vessel congestion and small pleural effusions. Objective - Vital Signs Vital signs: Vital Signs Temp 98.4 F 11/05/24 09:20 Pulse 84 11/05/24 12:16 Resp 16 11/05/24 09:20 BP 136/68 11/05/24 09:20 Pulse Ox 97 11/05/24 09:20 FiO2 4 10/28/24 04:00 Intake & Output 11/04/24 11/05/24 11/05/24 18:59 06:59 18:59 Intake Total 354 360 Output Total 1675 500 Balance -1321 -140 Weight 93 kg 90.5 kg Intake: Oral 354 360 Output: Urine 1675 500 Other: Voiding Method Indwelling Catheter Indwelling Catheter Indwelling Catheter # Bowel Movements 1 ABP, PAP, CO, CI - Last Documented Arterial Blood Pressure 128/42 - Exam No acute distress, currently on 2 L. The patient has a very flat affect. Calm and comfortable, no significant respiratory distress HEENT examination is grossly unremarkable. Mucous membranes are moist. No oral lesions. Neck supple. Full range of motion. No adenopathy thyromegaly or neck vein distention. Cardiovascular examination reveals regular rhythm rate. S1-S2 normal. No S3 or S4. No discernible murmur noted. Lungs reveal scattered bilateral rhonchi. No wheezes. No crackles. Breath sounds are equal bilaterally. Abdomen soft bowel sounds are heard. No masses or tenderness. Extremities are intact. No cyanosis clubbing or edema. Skin is without rash or lesion. Neurologic examination is brief but nonfocal. Generalized global weakness in all 4 extremities and her neurologic exam is nonfocal. - Labs CBC & Chem 7: 11/05/24 06:59 11/05/24 06:59 Labs: Abnormal Lab Results - Last 24 Hours (Table) 11/04/24 11/04/24 11/04/24 Range/Units 15:59 17:08 17:08 RBC (4.30-5.90) m/uL Hgb (13.0-17.5) gm/dL Hct (39.0-53.0) % MCV (80.0-100.0) fL RDW (11.5-15.5) % Plt Count (150-450) k/uL ESR 120 H (0-20) mm/Hr Retic Count 2.6 H (0.5-2.0) % Sodium (137-145) mmol/L Carbon Dioxide (22-30) mmol/L BUN (9-20) mg/dL Creatinine (0.66-1.25) mg/dL Glucose (74-99) mg/dL POC Glucose (mg/dL) 260 H (70-110) mg/dL Calcium (8.4-10.2) mg/dL Iron 26 L (65-175) UG/DL TIBC 195 L (228-460) UG/DL % Saturation 13.33 L (15.00-50.00) Transferrin 139.0 L (204.0-354.0) mg/dL Ferritin 476.0 H (22.0-322.0) ng/mL Vitamin B12 1753.0 H (200.0-944.0) pg/mL Folate (4.40-31.00) ng/mL Free [place] LC, Quant (0.33-1.94) mg/dL Free Lambda LC, Quant (0.57-2.63) mg/dL 11/04/24 11/04/24 11/04/24 Range/Units 17:08 17:08 19:58 RBC (4.30-5.90) m/uL Hgb (13.0-17.5) gm/dL Hct (39.0-53.0) % MCV (80.0-100.0) fL RDW (11.5-15.5) % Plt Count (150-450) k/uL ESR (0-20) mm/Hr Retic Count (0.5-2.0) % Sodium (137-145) mmol/L Carbon Dioxide (22-30) mmol/L BUN (9-20) mg/dL Creatinine (0.66-1.25) mg/dL Glucose (74-99) mg/dL POC Glucose (mg/dL) 324 H (70-110) mg/dL Calcium (8.4-10.2) mg/dL Iron (65-175) UG/DL TIBC (228-460) UG/DL % Saturation (15.00-50.00) Transferrin (204.0-354.0) mg/dL Ferritin (22.0-322.0) ng/mL Vitamin B12 (200.0-944.0) pg/mL Folate 4.20 L (4.40-31.00) ng/mL Free [place] LC, Quant 20.07 H (0.33-1.94) mg/dL Free Lambda LC, Quant 20.21 H (0.57-2.63) mg/dL 11/05/24 11/05/24 11/05/24 Range/Units 06:16 06:59 06:59 RBC 2.54 L (4.30-5.90) m/uL Hgb 8.3 L (13.0-17.5) gm/dL Hct 25.8 L (39.0-53.0) % MCV 101.6 H (80.0-100.0) fL RDW 15.9 H (11.5-15.5) % Plt Count 460 H (150-450) k/uL ESR (0-20) mm/Hr Retic Count (0.5-2.0) % Sodium 134 L (137-145) mmol/L Carbon Dioxide 21 L (22-30) mmol/L BUN 58 H (9-20) mg/dL Creatinine 4.30 H (0.66-1.25) mg/dL Glucose 103 H (74-99) mg/dL POC Glucose (mg/dL) 120 H (70-110) mg/dL Calcium 7.9 L (8.4-10.2) mg/dL Iron (65-175) UG/DL TIBC (228-460) UG/DL % Saturation (15.00-50.00) Transferrin (204.0-354.0) mg/dL Ferritin (22.0-322.0) ng/mL Vitamin B12 (200.0-944.0) pg/mL Folate (4.40-31.00) ng/mL Free [place] LC, Quant (0.33-1.94) mg/dL Free Lambda LC, Quant (0.57-2.63) mg/dL 12/17/24 Range/Units 11:54 RBC (4.30-5.90) m/uL Hgb (13.0-17.5) gm/dL Hct (39.0-53.0) % MCV (80.0-100.0) fL RDW (11.5-15.5) % Plt Count (150-450) k/uL ESR (0-20) mm/Hr Retic Count (0.5-2.0) % Sodium (137-145) mmol/L Carbon Dioxide (22-30) mmol/L BUN (9-20) mg/dL Creatinine (0.66-1.25) mg/dL Glucose (74-99) mg/dL POC Glucose (mg/dL) 193 H (70-110) mg/dL Calcium (8.4-10.2) mg/dL Iron (65-175) UG/DL TIBC (228-460) UG/DL % Saturation (15.00-50.00) Transferrin (204.0-354.0) mg/dL Ferritin (22.0-322.0) ng/mL Vitamin B12 (200.0-944.0) pg/mL Folate (4.40-31.00) ng/mL Free [place] LC, Quant (0.33-1.94) mg/dL Free Lambda LC, Quant (0.57-2.63) mg/dL Microbiology - Last 24 Hours (Table) 10/18/24 15:00 Fungal Culture - Preliminary Sputum Assessment and Plan Plan: Acute hypoxic respiratory failure, the patient has been intubated on 10/10/2024 following his knee surgery and the patient remains intubated on the mechanical ventilator, chest x-ray is unchanged and the patient continues to have atelectatic changes and small infiltrates in the lung base bilaterally. The patient was extubated on 10/15/2024 and subsequently reintubated on 10/18/2024 for an extensive left lung pneumonia with mucous plugs. Bronchoscopy was done on 10/18/2024 and 10/19/2024 with removal of extensive mucous plugs from the left mainstem bronchus and the left lower lobe. The preliminary sputum culture is positive for Enterobacter aerogenes. The patient was extubated on 10/22/2024. The patient remains on IV Invanz. Chest x-ray from 11/04/2024 shows small bilateral pleural effusion and pulm vessel congestion Acute kidney injury, nonoliguric and acute renal function is improving Bilateral pleural effusions Encephalopathy, multifactorial. The patient had delirium tremens and subsequently patient was treated for septic shock. The patient's encephalopathy is improved and the patient is awake and alert and communicating. MRI of the brain was negative for an acute stroke Right-sided pleural effusion status postthoracentesis with removal of 400 cc of pleural fluid Septic shock, recovered Septic arthritis of the right knee secondary to strep group A , status post arthroscopy, with arthroscopic lavage and debridement of the right knee, partial medial meniscectomy and medial femoral condyle and medial tibial plateau ch ondroplasty. Back pain. MRI of the cervical spine showed disc bulge centrally and left parasternally at the level of T2-3 and moderate anterior thecal sac compression without cord deformity. The patient also has broad-based disc bulge at the level of C6/T1 and to lesser degrees T1-T2 and C6/C7 Chronic alcohol abuse, with acute alcohol withdrawal syndrome, recovered Status post fall, with rhabdomyolysis, secondary to immobility, recovered Chronic anemia History of coronary artery disease, with previous catheterization and stent placement. CHF with mild impairment LV function with an ejection fraction of 45% Paroxysmal atrial fibrillation, current rhythm is sinus, maintained on a combi nation of amiodarone and metoprolol. No anticoagulants for now Diabetes mellitus type I Gastroesophageal reflux disease. Hyperlipidemia. Hypertension. History of myocardial infarction. History of osteoarthritis. Plan: Patient is currently on 2 L of oxygen by nasal cannula Encouraged use of incentive spirometer Continue IV Lasix 40 mg every 24 hours Patient is nonoliguric and renal function continues to improve Monitor creatinine Continue combination of amiodarone and metoprolol Chest x-ray from 11/04/2024 was noted and the patient continues to have bilateral lower lobe pleural effusions Continue IV Invanz Change Levemir insulin 20 units twice daily with Scale insulin coverage and watch for any signs of hypoglycemia Monitor fluid balance PT evaluation and increase mobility Will continue to follow.
[2024-11-05 20:23] LABS: Glucose,Whole Blood 304 mg/dL (70-110)
[2024-11-06 00:07] LABS: Total Protein 24 Hour,Urine 1484 mg/24hr (42.0-225.0); Total Volume 24 Hour,Urine 2150 mls (800-1800)
[2024-11-06 06:05] LABS: Glucose,Whole Blood 83 mg/dL (70-110)
[2024-11-06 07:55] LABS: African American GFR (CKD) 18 (>60 ml/min/1.73 sqM); Anion Gap 6 mmol/L; Blood Urea Nitrogen 57 mg/dL (9-20); Calcium 8.1 mg/dL (8.4-10.2); Carbon Dioxide 23 mmol/L (22-30); Chloride 103 mmol/L (98-107); Glucose 63 mg/dL (74-99); Magnesium 1.7 mg/dL (1.6-2.3); Non-African American GFR(CKD) 16 (>60 ml/min/1.73 sqM); Potassium 4.4 mmol/L (3.5-5.1); Sodium 132 mmol/L (137-145)
[2024-11-06 11:10] LABS: Glucose,Whole Blood 214 mg/dL (70-110)
--- NOTE | 2024-11-06 11:42 | P.PN ---
Subjective Patient is seen in follow-up for acute kidney injury. Renal function improving. Nonoliguric. On IV Lasix. Oral intake is good. Hemodynamically stable. Vital signs are stable. General: No acute distress. HEENT: On nasal cannula. LUNGS: No audible rhonchi or wheezes. HEART: Rate and Rhythm are regular. ABDOMEN: No distention. EXTREMITITES: 1+ edema. Objective - Vital Signs Vital signs: Vital Signs Temp 97.4 F L 11/06/24 08:55 Pulse 88 11/06/24 09:23 Resp 18 11/06/24 08:55 BP 112/63 11/06/24 08:55 Pulse Ox 95 11/06/24 08:55 FiO2 4 10/28/24 04:00 Intake & Output 11/05/24 11/06/24 11/06/24 18:59 06:59 18:59 Intake Total 338 110 Output Total 1150 225 Balance -812 -225 110 Weight 92 kg Intake: Oral 338 110 Output: Urine 1150 225 Other: Voiding Method Indwelling Catheter Indwelling Catheter Indwelling Catheter ABP, PAP, CO, CI - Last Documented Arterial Blood Pressure 128/42 - Labs CBC & Chem 7: 11/05/24 06:59 11/06/24 06:50 Labs: Abnormal Lab Results - Last 24 Hours (Table) 11/04/24 11/05/24 11/05/24 Range/Units 17:08 11:54 16:30 Sodium (137-145) mmol/L BUN (9-20) mg/dL Creatinine (0.66-1.25) mg/dL Glucose (74-99) mg/dL POC Glucose (mg/dL) 193 H 260 H (70-110) mg/dL Calcium (8.4-10.2) mg/dL Ur 24 Hour Volume (800-1800) mls U Tot Protein 24h, Calc (42.0-225.0) mg/24hr Free [place] LC, Quant 20.07 H (0.33-1.94) mg/dL Free [place]ambda LC, Quant 20.21 H (0.57-2.63) mg/dL 11/05/24 11/05/24 11/06/24 Range/Units 20:22 23:23 06:50 Sodium 132 L (137-145) mmol/L BUN 57 H (9-20) mg/dL Creatinine 3.90 H (0.66-1.25) mg/dL Glucose 63 L (74-99) mg/dL POC Glucose (mg/dL) 304 H (70-110) mg/dL Calcium 8.1 L (8.4-10.2) mg/dL Ur 24 Hour Volume 2150 H (800-1800) mls U Tot Protein 24h, Calc 1484 H (42.0-225.0) mg/24hr Free [place] LC, Quant (0.33-1.94) mg/dL Free [place]ambda LC, Quant (0.57-2.63) mg/dL 11/06/24 Range/Units 11:08 Sodium (137-145) mmol/L BUN (9-20) mg/dL Creatinine (0.66-1.25) mg/dL Glucose (74-99) mg/dL POC Glucose (mg/dL) 214 H (70-110) mg/dL Calcium (8.4-10.2) mg/dL Ur 24 Hour Volume (800-1800) mls U Tot Protein 24h, Calc (42.0-225.0) mg/24hr Free [place] LC, Quant (0.33-1.94) mg/dL Free Lambda LC, Quant (0.57-2.63) mg/dL Assessment and Plan Plan: Assessment: 1. Acute kidney injury secondary to ATN secondary to septic shock and rhabdomyolysis. Creatinine 3.18 on admission and improved to 0.89 dated October 16, 2024 -worsened with diuresis. Also concern for interstitial nephritis with urine eosinophils at 7. Started on prednisone November 01, 2024. Serologies negative except for positive serum immunofixation. Being followed by oncology. No hydronephrosis noted on kidney ultrasound. Creatinine peaked at 5.24 this admission and is 3.9 today. 2. Rhabdomyolysis secondary to immobility. Resolved. 3. Strep bacteremia on antibiotics. Being treated for pneumonia. Status post bronchoscopy October 18, 2024. ID following. 4. Anion gap metabolic acidosis secondary to acute kidney injury. On oral bicarb. Better. 5. Hypernatremia from lack of oral water intake. Status post D5W. Resolved. 6. Hypomagnesemia from poor intake and diuresis. 7. History of alcohol abuse. 8. Hypocalcemia secondary to acute kidney injury as well as intracellular shifting from bicarb. PTH 112. Vitamin D level 26.5. On vitamin D. Corrected calcium in the normal range. 9. A-fib with RVR maintained on amiodarone and Lopressor. 10. Volume overload. On IV Lasix. 11. Acute blood loss anemia status post blood transfusion this admission. Hemoglobin stable. Plan: Maintain IV Lasix. Maintain prednisone. This will be tapered over the next few weeks. Avoid nephrotoxins. Continue to monitor renal function and urine output. Add oral magnesium oxide. Will need kidney biopsy if no improvement in renal function over the next 1 to 2 weeks. Case discussed with oncology.
[2024-11-06] MEDS: MAGNESIUM OXIDE 400 MG TAB PO SCH (12:23)
--- NOTE | 2024-11-06 15:30 | P.PN ---
Subjective Progress Note Date: 11/06/24 Principal diagnosis: elevated IgG and IgA in serum In f/u today pt denies any acute c/o, no pain, feeling weak in general, slow to respond to questions at times. Objective - Vital Signs Vital signs: Vital Signs Temp 97.8 F 11/06/24 11:35 Pulse 76 11/06/24 11:35 Resp 16 11/06/24 11:35 BP 105/59 11/06/24 11:35 Pulse Ox 93 L 11/06/24 11:35 FiO2 4 10/28/24 04:00 Intake & Output 11/05/24 11/06/24 11/06/24 18:59 06:59 18:59 Intake Total 338 350 Output Total 1150 225 Balance -812 -225 350 Weight 92 kg Intake: Oral 338 350 Output: Urine 1150 225 Other: Voiding Method Indwelling Catheter Indwelling Catheter Indwelling Catheter ABP, PAP, CO, CI - Last Documented Arterial Blood Pressure 128/42 - Constitutional General appearance: Present: average body habitus, cooperative, no acute distress - EENT Eyes: Present: anicteric sclerae, EOMI ENT: Present: hearing grossly normal - Respiratory Respiratory: bilateral: CTA - Cardiovascular Rhythm: regular - Gastrointestinal General gastrointestinal: Present: soft - Integumentary Integumentary: Present: normal - Neurologic Neurologic: Present: CNII-XII intact - Musculoskeletal Musculoskeletal: Present: generalized weakness - Psychiatric Psychiatric Comment(s): flat affect Psychiatric: Present: A&O x's 3 - Labs CBC & Chem 7: 11/05/24 06:59 11/06/24 06:50 Labs: Abnormal Lab Results - Last 24 Hours (Table) 11/05/24 11/05/24 11/05/24 Range/Units 16:30 20:22 23:23 Sodium (137-145) mmol/L BUN (9-20) mg/dL Creatinine (0.66-1.25) mg/dL Glucose (74-99) mg/dL POC Glucose (mg/dL) 260 H 304 H (70-110) mg/dL Calcium (8.4-10.2) mg/dL Ur 24 Hour Volume 2150 H (800-1800) mls U Tot Protein 24h, Calc 1484 H (42.0-225.0) mg/24hr 11/06/24 11/06/24 Range/Units 06:50 11:08 Sodium 132 L (137-145) mmol/L BUN 57 H (9-20) mg/dL Creatinine 3.90 H (0.66-1.25) mg/dL Glucose 63 L (74-99) mg/dL POC Glucose (mg/dL) 214 H (70-110) mg/dL Calcium 8.1 L (8.4-10.2) mg/dL Ur 24 Hour Volume (800-1800) mls U Tot Protein 24h, Calc (42.0-225.0) mg/24hr Assessment and Plan (1) Monoclonal gammopathy Current Visit: Yes Status: Acute Priority: Medium Code(s): D47.2 - MONOCLONAL GAMMOPATHY SNOMED Code(s): 626652591 Plan: Elevated immune protein in blood/MGUS -2 m-spikes noted on SPEP, 1.17g/dl and 0.38g/dl. Immunofixation detected IgG kappa and possibly an IgA kappa, protein elevations. -Worsening renal function -24 hour urine protein electrophoresis reporting a modest amount of albumin, prominent alpha-2 and beta microglobulin bands, consistent with tubular proteinuria urine. Urine kappa and lambda light chains are elevated, normal ratio. Still pending urine immunofixation. Total protein 24-hour urine high at 2 150. -Findings felt to possibly represent a MGUS. Dr. Fuentes reviewed the chart and discussed case with Nephrology. If paraproteinemia work up does not reveal evidence of a more advanced condition, treatment recommendation is usually observation, as long as no end organ damage, symptoms or other abnormal labs. Pending some additional labs and seeing how pt does with Nephrology interventi ons/treatments -Ongoing Work up for renal failure per Nephrology. ? interstitial nephritis, steroids have been started. Renal function showing slight improvement today. If renal function remains abnormal despite treatments, renal biopsy will be considered-that is per Dr. Fuentes, assuming that the pending monoclonal gammopathy workup does not show any indication for active treatment. Anemia -Progressive since admit -Multifactorial including medications, dilution, infection, SHERI. -S/P 2 units PRBCs since admit, stable Hgb at this time. Transfuse for Hgb <7 or if symptomatic -Anemia work upmost consistent with inflammation at this time. Recheck labs once pt acute illness is resolved. -Folate deficient-folic acid ordered
[2024-11-06 16:17] LABS: Glucose,Whole Blood 170 mg/dL (70-110)
--- NOTE | 2024-11-06 16:49 | P.PN ---
Subjective Progress Note Date: 11/06/24 Patient is a 64-year-old male who is being seen in the ICU due to hypovolemic shock and rhabdomyolysis. He is a poor historian due to altered mental status and unresponsiveness. All history is obtained from the chart. He initially presented to the emergency department after being found facedown on the ground with a contusion to his forehead and abrasions to his knee and left toes. She stated that he had been having nausea and vomiting for a day prior to being found down. He was noted to have diarrhea as well. Patient is a daily drinker and consumes about a fifth per day according to the notes he has not drank for the 2 days prior to this admission. He also has a history of type 1 diabetes mellitus. Initial EKG showed sinus tachycardia. Head/cervical spine CT showed no acute intracranial process and no acute fracture or traumatic subluxation of the cervical spine. Initial chest x-ray showed right middle lobe scarring/atelectasis, no acute pulmonary process. He had received 4 L of normal saline. Initial labs showed CK level of 18,113, WBCs 10.7, hemoglobin 12.5, sodium 126, creatinine 3.18 lactic acid 6.9, AST 401, ALT 65. Preliminary blood culture showed gram-positive cocci and patient was started on vancomycin. 10/07/2024. He is maintained on a bicarb drip as well as normal saline. He remains unresponsive to verbal stimulation. He is maintained on CIWA protocol. Labs today: WBCs 5.1, hemoglobin 11.6, sodium 126, potassium 3.8, BUN 53, creatinine 3.12, ammonia <9. Progress note dated October 08, 2024. 64-year-old male seen in room 252. I was notified by the nurse at nighttime, that the patient's blood pressure continued to drop. We bumped up his dose of n orepinephrine, and gave him a liter of fluid. In addition, his respiratory status was marginal, and the blood gas was ordered. The patient is currently on 6 L of oxygen. The patient was admitted on October 06. He is getting saline at 150 cc an hour, and Precedex at 0.4 mcg/kg/h. His norepinephrine is running at 31 mcg/min. There is staphylococci in his blood. I have asked the nurses to add Ativan Dilaudid and Haldol to his regimen, to try to wean him off the dexmedetomidine. White count of 9.1, hemoglobin hematocrit 29, platelet count 88,000. Sodium 131, potassium 3, chloride 92, CO2 32, BUN 50, creatinine 2.34. Glucose is 167. Calcium is 6.3. CK was 8796. AST is 507. ALT is 136. Albumin is 2.2. Blood cultures from the were positive for Streptococcus group A. Chest x-ray shows bilateral effusions, small, with low lung volumes. 10/09/2024. Patient seen as a followup. No acute events overnight. He is currently on 6 L of oxygen. He was on dextrose 5% - 0.9% NaCl, blood sugars have been in the mid to high 200s. He is receiving Kefzol for streptococcal group A bacteremia. Precedex has been turned off. Levophed is 0.3 mcg/kg/min. WBCs 12.3, hemoglobin 9.7, hematocrit 27.7, platelets 48. Sodium 133, potassium 3.7, chloride 105, CO2 19, BUN 42, creatinine 1.62. Glucose 267. Calcium 6.4. CK 3888. AST 323, ALT 78. Albumin 2.2. Today's chest x-ray showed cardiomegaly, pulmonary vascular congestion, and bilateral pleural effusions. 10/10/2024. Patient is being seen as a followup in the ICU. Overnight he went into A-fib with rapid ventricular rate, was started on an amiodarone drip at 1mg/min, and converted back to normal sinus rhythm. His pressures remain in the 100s/40s and pulses are He is currently on 15 L high flow oxygen. He is on no rmal saline at 150 cc/h. He is maintained on Kefzol for streptococcal group A bactermia, today is day 3. Levophed is at 0.11 mcg/kg/min, vasopressin at 0.02 mcg/kg/min. WBCs 16.4, hemoglobin 9.8, hematocrit 29.6, platelets 38. Sodium 138, potassium 3.5, chloride 112, CO2 23, BUN 35, creatinine 1.26, glucose 164. Ionized calcium 4.1. CK 988. AST 154, ALT 36. Cortisol 32. TSH 4.3830. In addition, he removed his NG tube overnight. Today's chest x-ray is unchanged from previous. He remains lethargic and barely responsive to verbal stimulation. 10/11/2024. Patient is seen in the ICU. He underwent arthroscopic lavage of the right knee yesterday evening and returned to the ICU intubated on mechanical ventilation. He is currently on assist-control mode with rate 18, tidal volume 450, FiO2 70%, PEEP 5. ABG shows pH 7.34, pCO2 37, pO2 95. He is maintained on vasopressin 0.02 units/min, Levophed 0.14 mcg/kg/min, normal saline at 100 cc/h, and Kefzol day 4. WBCs 18.1, hemoglobin 8.8, hematocrit 27.6, platelets 52, sodium 140, potassium 3.9, chloride 115, CO2 17, BUN 35, creatinine 1.08, glucose 191, creatinine kinase 215. Calcium 6.5. Magnesium 1.6. He began IV hydrocortisone 50 mg every 6 hours yesterday. Liver ultrasound performed yesterday revealed no acute process. Chest x-ray today is unchanged from previous. 10/12/2024. Patient is evaluated in the ICU. He remains intubated on mechanical ventilation on assist-control mode with rate 18, tidal volume 450, Fi O2 50%, PEEP 5. ABG shows pH 7.42, pCO2 38, pO2 74. His RSBI yesterday was 110 and he was unable to follow commands so he could not be extubated. He is maintained on vasopressin 0.02 units/min, normal saline at 20 cc/h, IV hydrocortisone 50 mg every 6 hours, and Kefzol day 5. WBCs 17.4, hemoglobin 8.2, hematocrit 25.2, platelets 53, sodium 142, potassium 3.7, chloride 116, CO2 23, BUN 39, creatinine 1.18, glucose 258. Ionized calcium 4.4. Magnesium 1.8. Today's chest x-ray is unchanged. Wound culture gram stain of the right knee preliminary report shows rare gram positive cocci. Progress note dated October 13, 2024. 64-year-old male seen in the intensive care unit, room 252. The patient remains on the mechanical ventilator. He is on volume assist-control, rate 18, tidal volume 450, FiO2 50%, PEEP of 5. Blood gases show pO2 72, pCO2 41, and pH is 7.42. The patient is on propofol at 35 mcg/kg/min, saline at 20 cc an hour, and vital high-protein at 60, with goal of 70. Yesterday, he had a brief spontaneous breathing trial, and he did poorly. Today he will again have a s pontaneous breathing trial, of pressure support of 5 and CPAP of 5. He continues on Ancef. White count 18.8, hemoglobin 8.2, hematocrit 25.8, platelet count 78,000. Sodium 144, potassium 4.1, chlorides 117, CO2 26, BUN 47, creatinine 1.18. Glucose is 340. Albumin is 2.1. Previous blood cultures from October 06 show group A streptococci. Chest x-ray shows bibasilar infiltrates. The patient is seen today October 28, 2024 in follow-up in the intensive care unit. He is currently sitting up in bed. Awake. Somewhat slow to respond. He is maintaining good O2 saturation mid 90s on 3 L/min per nasal cannula. He has been afebrile. Hemodynamically stable. Right knee culture was positive for strep A. Previous sputum culture had been positive for enterofactor aerogenes. Follow-up cultures revealed no growth. Pleural fluid cultures revealed no growth. He 2. Potassium 4.9. Bicarb 21. BUN 58. Creatinine 3.68. Glucose 66. He is continued on DuoNeb and elations. Heparin for DVT prophylaxis. Antibiotics in the form of ertapenem. The patient is seen today October 29, 2024 in follow-up on the selective care unit. He was transferred out of the ICU yesterday. He is currently sitting up in bed. Awake and alert. Still somewhat slow to respond. He is maintaining O2 saturations in the 90s on 3 L/min per nasal cannula. He is been afebrile. Hemodynamically stable. He is status post 1 unit of packed red blood cells this admission. Current hemoglobin 8.0. Platelets 332. White count 7.9. Sodium 139. Potassium 4.4. Bicarb 23. BUN 59. Creatinine 4.24. Glucose 78. Urinalysis with moderate bacteria. Culture pending. He remains on ertapenem. Continued on bronchodilators. Remains on IV diuretics. Currently in a negative balance. Heparin for DVT prophylaxis. The patient is seen today October 30, 2024 in follow-up on the selective care unit. He is currently up in a chair at the bedside. Awake and alert in no acute distress. He is maintaining O2 saturations in the 90s on 3 L/min per nasal cannula. No IV fluids. He is continued on antibiotics in the form of ertapenem. Continued on IV diuretics. Heparin for DVT prophylaxis. Urine culture showing yeast species. Pleural fluid cultures revealed no growth. White count 10.4. Hemoglobin 8.0. MCV 106.8. Platelets 374. Sodium 137. Potassium 4.2. Bicarb 20. BUN 62. Creatinine 4.46. Glucose 87. The patient is seen today October 31, 2024 in follow-up on the selective care unit. He is currently sitting up in bed. Awake and alert in no acute distress. He is maintaining O2 saturations in the 90s on 3 L/min per nasal cannula. White count 8.7. Hemoglobin 7.5. Platelets 365. Sodium 138. Potassium 4.2. Bicarb 21. BUN 60. Creatinine 4.87. Glucose 207. He remains on DuoNeb i nhalations. Antibiotics in the form of ertapenem. Currently on fluconazole. Remains on IV diuretics. He is making urine. The patient is seen today November 01, 2024 in follow-up on the selective care unit. He is currently sitting up in a chair. Awake and alert in no acute distress. Maintaining O2 saturations in the 90s on 2 L/min per nasal cannula. Sodium 136. Potassium 4.0. Bicarb 21. BUN 60. Creatinine 4.93. Glucose 114. He is continued on ertapenem. Now initiated on Diflucan. Heparin for DVT prophylaxis. He remains on IV Lasix. Making urine. Creatinine continues to rise. May need renal replacement therapy per nephrology. Progress note dated November 02, 2024. 64-year-old male who is now been in the hospital for 27 days. The patient is seen today in room 384. The patient remains on oxygen, by nasal cannula at 3 L. Saturations are in the low 90s. The patient is laying nearly flat in bed. No distress. Current labs include a white count 5.6, hemoglobin 6.9, hematocrit 21.8, and a platelet count is normal. Sodium 136, potassium 4.6, chlorides 105, CO2 24, BUN 59, creatinine 5.24. Glucose is 166. Calcium is 8.5. Progress note dated November 03, 2024. 64-year-old male seen today in room 384. His overall condition is unchanged. He has not been in the hospital for nearly a month. He is on 2 L of oxygen. No IV fluids. Clinically, he is unchanged. Currently white count is 6.1, hemoglobin 7.5, hematocrit 23.6, platelet count 342,000. Sodium 134, potassium 4.4, chlorides 104, CO2 23, BUN is 59, and creatinine is 5.11. Glucose is 241. Calcium is 8, magnesium is 1.3. On 11/04/2024, the patient is being seen for a follow-up. The patient is awake and alert and communicating. He denies having any respiratory difficulties. In regards to his altered mentation, the patient underwent an MRI of the brain that showed no evidence of any infarct. His mental status is gradually improved and he seems to be back to his baseline. In terms of his respiratory status, he is still on 2 L of oxygen by nasal cannula with a pulse ox of around 90 to 91%. A repeat chest x-ray was done today and it showed smaller lung volumes and generalized hazy appearance in the lung bases probably due to underlying residual pleural effusion. The patient otherwise is maintained on DuoNeb nebulized treatments [id number]. The patient is on Lasix 40 mg IV every 24 hours. The patient remains on IV Invanz. He is on amiodarone 200 mg p.o. twice daily and metoprolol 12.5 mg twice daily for rate control and is also on a prednisone burst taper. He remains on Levemir insulin 20 units twice a day and NovoLog scan scale coverage. He is quite weak and debilitated due to this prolonged hospitalization. On 11/05/2024, the patient remains quite debilitated and weak. No confusion. No altered mentation. No signs of any delirium tremens. The patient is still on oxygen at 3 L with a pulse ox of 94%. Blood work from today shows a white cell count of 9.8 with a hemoglobin 8.3 and a platelet count of 460. BUN is 58 and a creatinine is down to 4.3 and a sodium levels at 134. The patient is being monitored by nephrology. Renal function is improving. Nonoliguric. He is on IV Lasix. He does have some trace edema lower extremities bilaterally. As such, we will continue the current treatment for now and avoid any nephrotoxic agents. The patient is on DuoNeb updrafts, the patient is on prednisone burst taper and currently is on a dose of 30 mg p.o. today. Remains on Levemir insulin 20 units twice a day NovoLog sign scale coverage. He remains on IV Invanz and Diflucan. The chest x-ray done on 11/04/2024 showed smaller lung volumes with generalized haziness possibly presenting some pulm vessel congestion and small pleural effusions. 11/06/2024, the patient is being seen for a follow-up. The patient Is awake and alert and stable. Pulse ox is 95% on 2 L of oxygen by nasal cannula. Producing adequate amount of urine output and the renal function continues to improve. BUN is 57 with a creatinine of 3.9. Sodium levels at 132 and a potassium level is at 4.4. Remains on IV Invanz. Remains on Diflucan. Remains on prednisone burst taper and currently the patient is on a dose of 30 mg p.o. daily. Most recent chest x-ray from 11/04/2024 still showing presence of smaller lung volumes and hazy lower lobe atelectatic changes with small effusions. Nephrology on the case. No need for dialysis at this point in time as long as the patient renal function continues to improve. Very much debilitated and weak. Objective - Vital Signs Vital signs: Vital Signs Temp 97.4 F L 11/06/24 08:55 Pulse 88 11/06/24 09:23 Resp 18 11/06/24 08:55 BP 112/63 11/06/24 08:55 Pulse Ox 95 11/06/24 08:55 FiO2 4 10/28/24 04:00 Intake & Output 11/05/24 11/06/24 11/06/24 18:59 06:59 18:59 Intake Total 338 110 Output Total 1150 225 Balance -812 -225 110 Weight 92 kg Intake: Oral 338 110 Output: Urine 1150 225 Other: Voiding Method Indwelling Catheter Indwelling Catheter Indwelling Catheter ABP, PAP, CO, CI - Last Documented Arterial Blood Pressure 128/42 - Exam No acute distress, currently on 2 L. The patient has a very flat affect. Calm and comfortable, no significant respiratory distress HEENT examination is grossly unremarkable. Mucous membranes are moist. No oral lesions. Neck supple. Full range of motion. No adenopathy thyromegaly or neck vein distention. Cardiovascular examination reveals regular rhythm rate. S1-S2 normal. No S3 or S4. No discernible murmur noted. Lungs reveal scattered bilateral rhonchi. No wheezes. No crackles. Breath sounds are equal bilaterally. Abdomen soft bowel sounds are heard. No masses or tenderness. Extremities are intact. No cyanosis clubbing or edema. Skin is without rash or lesion. Neurologic examination is brief but nonfocal. Generalized global weakness in all 4 extremities and her neurologic exam is nonfocal. - Labs CBC & Chem 7: 11/05/24 06:59 11/06/24 06:50 Labs: Abnormal Lab Results - Last 24 Hours (Table) 11/04/24 11/05/24 11/05/24 Range/Units 17:08 11:54 16:30 Sodium (137-145) mmol/L BUN (9-20) mg/dL Creatinine (0.66-1.25) mg/dL Glucose (74-99) mg/dL POC Glucose (mg/dL) 193 H 260 H (70-110) mg/dL Calcium (8.4-10.2) mg/dL Ur 24 Hour Volume (800-1800) mls U Tot Protein 24h, Calc (42.0-225.0) mg/24hr Free Norton LC, Quant 20.07 H (0.33-1.94) mg/dL Free Lambda LC, Quant 20.21 H (0.57-2.63) mg/dL 11/05/24 11/05/24 11/06/24 Range/Units 20:22 23:23 06:50 Sodium 132 L (137-145) mmol/L BUN 57 H (9-20) mg/dL Creatinine 3.90 H (0.66-1.25) mg/dL Glucose 63 L (74-99) mg/dL POC Glucose (mg/dL) 304 H (70-110) mg/dL Calcium 8.1 L (8.4-10.2) mg/dL Ur 24 Hour Volume 2150 H (800-1800) mls U Tot Protein 24h, Calc 1484 H (42.0-225.0) mg/24hr Free Norton LC, Quant (0.33-1.94) mg/dL Free Lambda LC, Quant (0.57-2.63) mg/dL 11/06/24 Range/Units 11:08 Sodium (137-145) mmol/L BUN (9-20) mg/dL Creatinine (0.66-1.25) mg/dL Glucose (74-99) mg/dL POC Glucose (mg/dL) 214 H (70-110) mg/dL Calcium (8.4-10.2) mg/dL Ur 24 Hour Volume (800-1800) mls U Tot Protein 24h, Calc (42.0-225.0) mg/24hr Free Norton LC, Quant (0.33-1.94) mg/dL Free Lambda LC, Quant (0.57-2.63) mg/dL Assessment and Plan Plan: Acute hypoxic respiratory failure, the patient has been intubated on 10/10/2024 following his knee surgery and the patient remains intubated on the mechanical ventilator, chest x-ray is unchanged and the patient continues to have atelectatic changes and small infiltrates in the lung base bilaterally. The patient was extubated on 10/15/2024 and subsequently reintubated on 10/18/2024 for an extensive left lung pneumonia with mucous plugs. Bronchoscopy was done on 10/18/2024 and 10/19/2024 with removal of extensive mucous plugs from the left mainstem bronchus and the left lower lobe. The preliminary sputum culture is positive for Enterobacter aerogenes. The patient was extubated on 10/22/2024. The patient remains on IV Invanz. Chest x-ray from 11/04/2024 shows small bilateral pleural effusion and pulm vessel congestion Acute kidney injury, nonoliguric and acute renal function is improving, the patient is producing adequate amount of urine output Bilateral pleural effusions Encephalopathy, multifactorial. The patient had delirium tremens and subsequently patient was treated for septic shock. The patient's encephalopathy is improved and the patient is awake and alert and communicating. MRI of the brain was negative for an acute stroke Right-sided pleural effusion status postthoracentesis with removal of 400 cc of pleural fluid Septic shock, recovered Septic arthritis of the right knee secondary to strep group A , status post arthroscopy, with arthroscopic lavage and debridement of the right knee, partial medial meniscectomy and medial femoral condyle and medial tibial plateau chondroplasty. Back pain. MRI of the cervical spine showed disc bulge centrally and left parasternally at the level of T2-3 and moderate anterior thecal sac compression without cord deformity. The patient also has broad-based disc bulge at the level of C6/T1 and to lesser degrees T1-T2 and C6/C7 Chronic alcohol abuse, with acute alcohol withdrawal syndrome, recovered Status post fall, with rhabdomyolysis, secondary to immobility, recovered Chronic anemia History of coronary artery disease, with previous catheterization and stent placement. CHF with mild impairment LV function with an ejection fraction of 45% Paroxysmal atrial fibrillation, current rhythm is sinus, maintained on a combination of amiodarone and metoprolol. No anticoagulants for now Diabetes mellitus type I Gastroesophageal reflux disease. Hyperlipidemia. Hypertension. History of myocardial infarction. History of osteoarthritis. Plan: Patient is currently on 3 L of oxygen by nasal cannula Encouraged use of incentive spirometer Continue IV Lasix 40 mg every 24 hours, nephrology on the case Patient is nonoliguric and renal function continues to improve Monitor creatinine Continue combination of amiodarone and metoprolol Chest x-ray from 11/04/2024 was noted and the patient continues to have bilateral lower lobe pleural effusions Continue IV Invanz Change Levemir insulin 20 units twice daily with Scale insulin coverage and watch for any signs of hypoglycemia Monitor fluid balance PT evaluation and increase mobility Will continue to follow.
[2024-11-06] MEDS: FOLIC ACID 1 MG TAB PO SCH (17:27)
[2024-11-06 20:38] LABS: Glucose,Whole Blood 301 mg/dL (70-110)
[2024-11-07 06:26] LABS: Glucose,Whole Blood 207 mg/dL (70-110)
[2024-11-07 08:08] LABS: Basophils % (A) 0 %; Eosinophils # (A) 0.1 k/uL (0-0.7); Eosinophils % (A) 1 %; HGB 9.1 gm/dL (13.0-17.5); Hypochromasia Slight; Lymphocytes # (A) 1.5 k/uL (1.0-4.8); Lymphocytes % (A) 16 %; MCHC 31.2 g/dL (31.0-37.0); MCV 102.6 fL (80.0-100.0); Macrocytosis Slight; Mean Platelet Volume 7.6; Monocytes # (A) 0.7 k/uL (0-1.0); Monocytes % (A) 8 %; Neutrophils # (A) 7.1 k/uL (1.3-7.7); Neutrophils % (A) 74 %; Platelet Count 432 k/uL (150-450); RBC 2.83 m/uL (4.30-5.90); RDW 15.5 % (11.5-15.5); WBC 9.6 k/uL (3.8-10.6)
[2024-11-07 08:28] LABS: ALT 10 U/L (4-49); AST 18 U/L (17-59); African American GFR (CKD) 20 (>60 ml/min/1.73 sqM); Albumin 2.6 g/dL (3.5-5.0); Alkaline Phosphatase 86 U/L (38-126); Anion Gap 7 mmol/L; Blood Urea Nitrogen 55 mg/dL (9-20); Calcium 8.3 mg/dL (8.4-10.2); Carbon Dioxide 25 mmol/L (22-30); Chloride 102 mmol/L (98-107); Glucose 175 mg/dL (74-99); Non-African American GFR(CKD) 17 (>60 ml/min/1.73 sqM); Potassium 4.1 mmol/L (3.5-5.1); Sodium 134 mmol/L (137-145); Total Bilirubin 0.3 mg/dL (0.2-1.3); Total Protein 6.4 g/dL (6.3-8.2)
--- NOTE | 2024-11-07 08:31 | P.PN ---
Subjective Progress Note Date: 11/06/24 Principal diagnosis: Reason for follow-up is Streptococcus agalactiae bacteremia Patient is a 64-year-old male past medical history significant for diabetes mellitus hypertension hyperlipidemia HI osteoarthritis coronary disease patient was brought into the hospital after apparently the patient was found to be facedown on the ground with contusion to his forehead and abrasion to his knee and some bloody toes, patient did have a fever subsequently blood cultures came back positive with Streptococcus agalactiae prompting this consultation. Patient noticed to have swelling of the right knee aspirate was purulent subsequently the patient did have a right knee washout completed by orthopedics on 10/10/2024. On today's evaluation that is 11/06/2024,the patient denies any fever or any chills, patient is breathing comfortably on 2 L nasal cannula oxygen the patient denies chest pain shortness of breath and no significant cough, patient denies abdominal pain, no nausea vomiting or diarrhea. Patient did have a creatinine 3.90 no CBC was done today Objective - Vital Signs Vital signs: Vital Signs Temp 97.8 F 11/06/24 11:35 Pulse 76 11/06/24 11:35 Resp 16 11/06/24 11:35 BP 105/59 11/06/24 11:35 Pulse Ox 93 L 11/06/24 11:35 FiO2 4 10/28/24 04:00 Intake & Output 11/05/24 11/06/24 11/06/24 18:59 06:59 18:59 Intake Total 338 350 Output Total 1150 225 Balance -812 -225 350 Weight 92 kg Intake: Oral 338 350 Output: Urine 1150 225 Other: Voiding Method Indwelling Catheter Indwelling Catheter Indwelling Catheter ABP, PAP, CO, CI - Last Documented Arterial Blood Pressure 128/42 - Exam GENERAL DESCRIPTION: Middle-age male lying in bed in no distress RESPIRATORY SYSTEM: Unlabored breathing , coarse breath sounds bilaterally HEART: S1 S2 regular rate and rhythm , ABDOMEN: Soft , no tenderness EXTREMITIES: Swelling to the lower extremity and right knee but no redness - Labs CBC & Chem 7: 11/07/24 07:34 11/07/24 07:34 Labs: Abnormal Lab Results - Last 24 Hours (Table) 11/05/24 11/05/24 11/05/24 Range/Units 16:30 20:22 23:23 Sodium (137-145) mmol/L BUN (9-20) mg/dL Creatinine (0.66-1.25) mg/dL Glucose (74-99) mg/dL POC Glucose (mg/dL) 260 H 304 H (70-110) mg/dL Calcium (8.4-10.2) mg/dL Ur 24 Hour Volume 2150 H (800-1800) mls U Tot Protein 24h, Calc 1484 H (42.0-225.0) mg/24hr 11/06/24 11/06/24 Range/Units 06:50 11:08 Sodium 132 L (137-145) mmol/L BUN 57 H (9-20) mg/dL Creatinine 3.90 H (0.66-1.25) mg/dL Glucose 63 L (74-99) mg/dL POC Glucose (mg/dL) 214 H (70-110) mg/dL Calcium 8.1 L (8.4-10.2) mg/dL Ur 24 Hour Volume (800-1800) mls U Tot Protein 24h, Calc (42.0-225.0) mg/24hr Assessment and Plan (1) Sepsis Current Visit: Yes Status: Acute Code(s): A41.9 - SEPSIS, UNSPECIFIED O RGANISM SNOMED Code(s): 66438044 (2) Streptococcal bacteremia Current Visit: Yes Status: Acute Code(s): R78.81 - BACTEREMIA; B95.5 - UNSP STREPTOCOCCUS THE CAUSE OF DISEASES CL[facility]SD [facility] SNOMED Code(s): 274656201597 Plan: 1patient presented to the hospital with sepsis in this patient who did have fever tachycardia elevated white count and now with evidence of streptococcal bacteremia which is usually of skin and soft tissue origin 2-patient noticed to have right knee effusion has been evaluated by orthopedics and is status post aspiration with purulent drainage subsequently did have right knee washout by orthopedic cultures are pending may need further workup including MRI of the spine when stable. Ortho is following the patient closely 3patient right knee fluid culture also came back positive with group A strep 4-patient did have left-sided pneumonia patient required reintubation and also status post bronchoscopy and lavage sputum culture so far negative, initial culture growing Enterobacter that is sensitive to cefepime/ertapenem patient subsequently has been successfully extubated 5the patient remains to be afebrile white count has been normal, 6patient to continue ertapenem 500 mg daily while inpatient and monitor clinical course closely Dictation was produced using [employer] dictation software. please excuse any grammatical, word or spelling errors. Time with Patient: Less than 30
--- NOTE | 2024-11-07 09:01 | XR ---
EXAMINATION TYPE: XR chest 1V portable DATE OF EXAM: 11/07/2024 8:44 AM COMPARISON: Chest radiographs from 11/04/2024 CLINICAL INDICATION: Male, 64 years old with history of chf; TECHNIQUE: XR chest 1V portable Frontal view of the chest. FINDINGS: Lungs/Pleura: No evidence of focal consolidation or pneumothorax. Blunting of the costophrenic angles is present. Pulmonary vascularity: Unremarkable. Heart/mediastinum: Cardiomediastinal silhouette is unremarkable. Musculoskeletal: No acute osseous pathology. There is fixation hardware in the lower cervical spine. IMPRESSION: Blunting of the costophrenic angles correlate for small layering pleural effusions. [facility], , 11/07/2024 8:58 AM
--- NOTE | 2024-11-07 10:13 | PN ---
PROGRESS NOTE DATE OF SERVICE: 11/06/2024 SUBJECTIVE: This is a 64-year-old gentleman, who was admitted with multiple medical problems including respiratory failure and renal failure, is being closely monitored. No chest pain. No palpitation. The patient also had a strep group A bacteremia on admission with right knee arthritis. The most recent urine culture showed [place] albicans. Creatinine is 3.9 today. No chest pain. No palpitation. PAST MEDICAL HISTORY: Reviewed. REVIEW OF SYSTEMS: A 14-point review is negative except as mentioned earlier. CURRENT MEDICATIONS: Reviewed include oral prednisone for possible interstitial nephritis. Rest of medications reviewed. PHYSICAL EXAMINATION: VITAL SIGNS: Pulse is 76, blood pressure 105/59, respirations 16. CHEST: A few scattered rhonchi and crackles. ABDOMEN: Soft. LEGS: No edema. NERVOUS SYSTEM: Diffusely weak. LABORATORY DATA: Hemoglobin 8.2. Rest of the labs are noted. ASSESSMENT: 1. Acute strep group A bacteremia and sepsis with a right knee pyogenic arthritis, present on admission. 2. ETOH. 3. Hypoxic respiratory failure. 4. Congestive heart failure. 5. Paroxysmal atrial fibrillation. 6. Right-sided pleural effusion. 7. Acute on chronic kidney disease. RECOMMENDATIONS AND DISCUSSION: I recommend to continue current management and continue symptomatic treatment. Otherwise, at this time, I recommend PT, OT evaluation, possible ECF rehab. Guarded prognosis because of multiple complex medical issues. Further recommendations to follow. MMLISAL / NANON: [id number] / MTDD
--- NOTE | 2024-11-07 11:54 | P.PN ---
Subjective Patient is seen in follow-up for acute kidney injury. Renal function improving. Nonoliguric. On IV Lasix. Oral intake is good. Hemodynamically stable. No active complaints. Vital signs are stable. General: No acute distress. HEENT: On nasal cannula. LUNGS: No audible rhonchi or wheezes. HEART: Rate and Rhythm are regular. ABDOMEN: No distention. EXTREMITITES: 1+ edema. Objective - Vital Signs Vital signs: Vital Signs Temp 97.2 F L 11/07/24 08:00 Pulse 81 11/07/24 08:00 Resp 16 11/07/24 08:00 BP 102/54 11/07/24 08:00 Pulse Ox 93 L 11/07/24 08:00 FiO2 4 10/28/24 04:00 Intake & Output 11/06/24 11/07/24 11/07/24 18:59 06:59 18:59 Intake Total 460 240 300 Output Total 500 675 Balance -40 -435 300 Weight 53.8 kg Intake: Oral 460 240 300 Output: Urine 500 675 Other: Voiding Method Indwelling Catheter Indwelling Catheter Indwelling Catheter ABP, PAP, CO, CI - Last Documented Arterial Blood Pressure 128/42 - Labs CBC & Chem 7: 11/07/24 07:34 11/07/24 07:34 Labs: Abnormal Lab Results - Last 24 Hours (Table) 11/06/24 11/06/24 11/07/24 Range/Units 16:14 20:37 06:25 RBC (4.30-5.90) m/uL Hgb (13.0-17.5) gm/dL Hct (39.0-53.0) % MCV (80.0-100.0) fL Sodium (137-145) mmol/L BUN (9-20) mg/dL Creatinine (0.66-1.25) mg/dL Glucose (74-99) mg/dL POC Glucose (mg/dL) 170 H 301 H 207 H (70-110) mg/dL Calcium (8.4-10.2) mg/dL Albumin (3.5-5.0) g/dL 11/07/24 11/07/24 Range/Units 07:34 07:34 RBC 2.83 L (4.30-5.90) m/uL Hgb 9.1 L (13.0-17.5) gm/dL Hct 29.0 L (39.0-53.0) % MCV 102.6 H (80.0-100.0) fL Sodium 134 L (137-145) mmol/L BUN 55 H (9-20) mg/dL Creatinine 3.58 H (0.66-1.25) mg/dL Glucose 175 H (74-99) mg/dL POC Glucose (mg/dL) (70-110) mg/dL Calcium 8.3 L (8.4-10.2) mg/dL Albumin 2.6 L (3.5-5.0) g/dL Assessment and Plan Plan: Assessment: 1. Acute kidney injury secondary to ATN secondary to septic shock and rhabdomyolysis. Creatinine 3.18 on admission and improved to 0.89 dated October 16, 2024 -worsened with diuresis. Also concern for interstitial nephritis with urine eosinophils at 7. Started on prednisone November 01, 2024. Serologies negative except for positive serum immunofixation. Being followed by oncology. No hydronephrosis noted on kidney ultrasound. Creatinine peaked at 5.24 this admission and is 3.58 today. 2. Rhabdomyolysis secondary to immobility. Resolved. 3. Strep bacteremia on antibiotics. Being treated for pneumonia. Status post bronchoscopy October 18, 2024. ID following. 4. Anion gap metabolic acidosis secondary to acute kidney injury. On oral bicarb. Better. 5. Hypernatremia from lack of oral water intake. Status post D5W. Resolved. 6. Hypomagnesemia from poor intake and diuresis. On oral magnesium oxide. 7. History of alcohol abuse. 8. Hypocalcemia secondary to acute kidney injury as well as intracellular shifting from bicarb. PTH 112. Vitamin D level 26.5. On vitamin D. Corrected calcium in the normal range. 9. A-fib with RVR maintained on amiodarone and Lopressor. 10. Volume overload. On IV Lasix. 11. Acute blood loss anemia status post blood transfusion this admission. Hemoglobin stable. Plan: Maintain IV Lasix. Maintain prednisone. This will be tapered over the next few weeks. Avoid nephrotoxins. Continue to monitor renal function and urine output. Will need kidney biopsy if no improvement in renal function over the next 1 to 2 weeks. Case discussed with oncology.
[2024-11-07 12:04] LABS: Glucose,Whole Blood 468 mg/dL (70-110)
--- NOTE | 2024-11-07 12:44 | US ---
EXAMINATION TYPE: US chest DATE OF EXAM: 11/07/2024 Exam done portable COMPARISON: NONE CLINICAL INDICATION: Male, 64 years old with history of annabel for plueral effusion rt side; TECHNIQUE: Grayscale imaging of the chest. Targeted ultrasound of the posterior lower right hemithor ax FINDINGS: EXAM MEASUREMENTS: Right Pleural Effusion pocket size: 10.5 cm Right skin surface to fluid distance: 2.6 cm Right side marked for possible thoracentesis outside the dept. Pulmonologists are able to review the images in the patient?s EMR. IMPRESSIONS: Right pleural effusion. [facility], , 11/07/2024 12:42 PM
--- NOTE | 2024-11-07 13:28 | P.PN ---
Subjective Progress Note Date: 11/07/24 Principal diagnosis: Reason for follow-up is Streptococcus agalactiae bacteremia Patient is a 64-year-old male past medical history significant for diabetes mellitus hypertension hyperlipidemia HI osteoarthritis coronary disease patient was brought into the hospital after apparently the patient was found to be facedown on the ground with contusion to his forehead and abrasion to his knee and some bloody toes, patient did have a fever subsequently blood cultures came back positive with Streptococcus agalactiae prompting this consultation. Patient noticed to have swelling of the right knee aspirate was purulent subsequently the patient did have a right knee washout completed by orthopedics on 10/10/2024. On today's evaluation that is 11/07/2024,the patient remains to be afebrile, patient is on 2 L nasal cannula supplemental oxygen and denies any shortness of breath no chest pain or any worsening cough.Patient denies having any nausea or vomiting, no abdominal pain and no diarrhea has been reported. Patient white count 9.6, creatinine 3.58 Objective - Vital Signs Vital signs: Vital Signs Temp 97.2 F L 11/07/24 08:00 Pulse 85 11/07/24 12:00 Resp 16 11/07/24 12:00 BP 120/63 11/07/24 12:00 Pulse Ox 96 11/07/24 12:00 FiO2 4 10/28/24 04:00 Intake & Output 11/06/24 11/07/24 11/07/24 18:59 06:59 18:59 Intake Total 460 240 420 Output Total 500 675 Balance -40 -435 420 Weight 53.8 kg Intake: Oral 460 240 420 Output: Urine 500 675 Other: Voiding Method Indwelling Catheter Indwelling Catheter Indwelling Catheter # Bowel Movements 0 ABP, PAP, CO, CI - Last Documented Arterial Blood Pressure 128/42 - Exam GENERAL DESCRIPTION: Middle-age male lying in bed in no distress RESPIRATORY SYSTEM: Unlabored breathing , coarse breath sounds bilaterally HEART: S1 S2 regular rate and rhythm , ABDOMEN: Soft , no tenderness EXTREMITIES: Swelling to the lower extremity and right knee but no redness - Labs CBC & Chem 7: 11/07/24 07:34 11/07/24 07:34 Labs: Abnormal Lab Results - Last 24 Hours (Table) 11/06/24 11/06/24 11/07/24 Range/Units 16:14 20:37 06:25 RBC (4.30-5.90) m/uL Hgb (13.0-17.5) gm/dL Hct (39.0-53.0) % MCV (80.0-100.0) fL Sodium (137-145) mmol/L BUN (9-20) mg/dL Creatinine (0.66-1.25) mg/dL Glucose (74-99) mg/dL POC Glucose (mg/dL) 170 H 301 H 207 H (70-110) mg/dL Calcium (8.4-10.2) mg/dL Albumin (3.5-5.0) g/dL 11/07/24 11/07/24 11/07/24 Range/Units 07:34 07:34 11:58 RBC 2.83 L (4.30-5.90) m/uL Hgb 9.1 L (13.0-17.5) gm/dL Hct 29.0 L (39.0-53.0) % MCV 102.6 H (80.0-100.0) fL Sodium 134 L (137-145) mmol/L BUN 55 H (9-20) mg/dL Creatinine 3.58 H (0.66-1.25) mg/dL Glucose 175 H (74-99) mg/dL POC Glucose (mg/dL) 468 H (70-110) mg/dL Calcium 8.3 L (8.4-10.2) mg/dL Albumin 2.6 L (3.5-5.0) g/dL Assessment and Plan (1) Sepsis Current Visit: Yes Status: Acute Code(s): A41.9 - SEPSIS, UNSPECIFIED ORGANISM SNOMED Code(s): 75584385 (2) Streptococcal bacteremia Current Visit: Yes Status: Acute Code(s): R78.81 - BACTEREMIA; B95.5 - UNSP STREPTOCOCCUS THE CAUSE OF DISEASES CLASSD [facility] SNOMED Code(s): 421991386072 Plan: 1patient presented to the hospital with sepsis in this patient who did have fever tachycardia elevated white count and now with evidence of streptococcal bacteremia which is usually of skin and soft tissue origin 2-patient noticed to have right knee effusion has been evaluated by orthopedics and is status post aspiration with purulent drainage subsequently did have right knee washout by orthopedic cultures are pending may need further workup including MRI of the spine when stable. Ortho is following the patient closely 3patient right knee fluid culture also came back positive with group A strep 4-patient did have left-sided pneumonia patient required reintubation and also status post bronchoscopy and lavage sputum culture so far negative, initial culture growing Enterobacter that is sensitive to cefepime/ertapenem patient subsequently has been successfully extubated, patient has received adequate ant ibiotic therapy for his underlying pneumonia 5the patient antibiotic will be switched over to Rocephin 2 g daily to cover for his right knee septic arthritis secondary to group A streptococcus, plan is for a total of 6 weeks of antibiotic including days of antibiotic he has received here Dictation was produced using [employer] dictation software. please excuse any grammatical, word or spelling errors. Time with Patient: Less than 30
[2024-11-07] MEDS ORDERED: NON FORMULARY DRUG (Insulin Glargine 100 UNIT/ML Vial) SQ SCH (13:45)
[2024-11-07 14:24] VITALS: BMI 16.5
[2024-11-07] MEDS: ASPIRIN 81 MG PO SCH (15:23)
[2024-11-07] MEDS: SODIUM FERRIC GLUCONAT-SUCROSE 125 MG in SODIUM CHLORIDE 0.9% 100 ML IVPB SCH (15:23)
[2024-11-07 16:52] LABS: Glucose,Whole Blood 186 mg/dL (70-110)
--- NOTE | 2024-11-07 19:10 | P.PN ---
Subjective Progress Note Date: 11/07/24 Patient is a 64-year-old male who is being seen in the ICU due to hypovolemic shock and rhabdomyolysis. He is a poor historian due to altered mental status and unresponsiveness. All history is obtained from the chart. He initially presented to the emergency department after being found facedown on the ground with a contusion to his forehead and abrasions to his knee and left toes. She stated that he had been having nausea and vomiting for a day prior to being found down. He was noted to have diarrhea as well. Patient is a daily drinker and consumes about a fifth per day according to the notes he has not drank for the 2 days prior to this admission. He also has a history of type 1 diabetes mellitus. Initial EKG showed sinus tachycardia. Head/cervical spine CT showed no acute intracranial process and no acute fracture or traumatic subluxation of the cervical spine. Initial chest x-ray showed right middle lobe scarring/atelectasis, no acute pulmonary process. He had received 4 L of normal saline. Initial labs showed CK level of 18,113, WBCs 10.7, hemoglobin 12.5, sodium 126, creatinine 3.18 lactic acid 6.9, AST 401, ALT 65. Preliminary blood culture showed gram-positive cocci and patient was started on vancomycin. 10/07/2024. He is maintained on a bicarb drip as well as normal saline. He remains unresponsive to verbal stimulation. He is maintained on CIWA protocol. Labs today: WBCs 5.1, hemoglobin 11.6, sodium 126, potassium 3.8, BUN 53, creatinine 3.12, ammonia <9. Progress note dated October 08, 2024. 64-year-old male seen in room 252. I was notified by the nurse at nighttime, that the patient's blood pressure continued to drop. We bumped up his dose of n orepinephrine, and gave him a liter of fluid. In addition, his respiratory status was marginal, and the blood gas was ordered. The patient is currently on 6 L of oxygen. The patient was admitted on October 06. He is getting saline at 150 cc an hour, and Precedex at 0.4 mcg/kg/h. His norepinephrine is running at 31 mcg/min. There is staphylococci in his blood. I have asked the nurses to add Ativan Dilaudid and Haldol to his regimen, to try to wean him off the dexmedetomidine. White count of 9.1, hemoglobin hematocrit 29, platelet count 88,000. Sodium 131, potassium 3, chloride 92, CO2 32, BUN 50, creatinine 2.34. Glucose is 167. Calcium is 6.3. CK was 8796. AST is 507. ALT is 136. Albumin is 2.2. Blood cultures from the were positive for Streptococcus group A. Chest x-ray shows bilateral effusions, small, with low lung volumes. 10/09/2024. Patient seen as a followup. No acute events overnight. He is currently on 6 L of oxygen. He was on dextrose 5% - 0.9% NaCl, blood sugars have been in the mid to high 200s. He is receiving Kefzol for streptococcal group A bacteremia. Precedex has been turned off. Levophed is 0.3 mcg/kg/min. WBCs 12.3, hemoglobin 9.7, hematocrit 27.7, platelets 48. Sodium 133, potassium 3.7, chloride 105, CO2 19, BUN 42, creatinine 1.62. Glucose 267. Calcium 6.4. CK 3888. AST 323, ALT 78. Albumin 2.2. Today's chest x-ray showed cardiomegaly, pulmonary vascular congestion, and bilateral pleural effusions. 10/10/2024. Patient is being seen as a followup in the ICU. Overnight he went into A-fib with rapid ventricular rate, was started on an amiodarone drip at 1mg/min, and converted back to normal sinus rhythm. His pressures remain in the 100s/40s and pulses are He is currently on 15 L high flow oxygen. He is on no rmal saline at 150 cc/h. He is maintained on Kefzol for streptococcal group A bactermia, today is day 3. Levophed is at 0.11 mcg/kg/min, vasopressin at 0.02 mcg/kg/min. WBCs 16.4, hemoglobin 9.8, hematocrit 29.6, platelets 38. Sodium 138, potassium 3.5, chloride 112, CO2 23, BUN 35, creatinine 1.26, glucose 164. Ionized calcium 4.1. CK 988. AST 154, ALT 36. Cortisol 32. TSH 4.3830. In addition, he removed his NG tube overnight. Today's chest x-ray is unchanged from previous. He remains lethargic and barely responsive to verbal stimulation. 10/11/2024. Patient is seen in the ICU. He underwent arthroscopic lavage of the right knee yesterday evening and returned to the ICU intubated on mechanical ventilation. He is currently on assist-control mode with rate 18, tidal volume 450, FiO2 70%, PEEP 5. ABG shows pH 7.34, pCO2 37, pO2 95. He is maintained on vasopressin 0.02 units/min, Levophed 0.14 mcg/kg/min, normal saline at 100 cc/h, and Kefzol day 4. WBCs 18.1, hemoglobin 8.8, hematocrit 27.6, platelets 52, sodium 140, potassium 3.9, chloride 115, CO2 17, BUN 35, creatinine 1.08, glucose 191, creatinine kinase 215. Calcium 6.5. Magnesium 1.6. He began IV hydrocortisone 50 mg every 6 hours yesterday. Liver ultrasound performed yesterday revealed no acute process. Chest x-ray today is unchanged from previous. 10/12/2024. Patient is evaluated in the ICU. He remains intubated on mechanical ventilation on assist-control mode with rate 18, tidal volume 450, Fi O2 50%, PEEP 5. ABG shows pH 7.42, pCO2 38, pO2 74. His RSBI yesterday was 110 and he was unable to follow commands so he could not be extubated. He is maintained on vasopressin 0.02 units/min, normal saline at 20 cc/h, IV hydrocortisone 50 mg every 6 hours, and Kefzol day 5. WBCs 17.4, hemoglobin 8.2, hematocrit 25.2, platelets 53, sodium 142, potassium 3.7, chloride 116, CO2 23, BUN 39, creatinine 1.18, glucose 258. Ionized calcium 4.4. Magnesium 1.8. Today's chest x-ray is unchanged. Wound culture gram stain of the right knee preliminary report shows rare gram positive cocci. Progress note dated October 13, 2024. 64-year-old male seen in the intensive care unit, room 252. The patient remains on the mechanical ventilator. He is on volume assist-control, rate 18, tidal volume 450, FiO2 50%, PEEP of 5. Blood gases show pO2 72, pCO2 41, and pH is 7.42. The patient is on propofol at 35 mcg/kg/min, saline at 20 cc an hour, and vital high-protein at 60, with goal of 70. Yesterday, he had a brief spontaneous breathing trial, and he did poorly. Today he will again have a s pontaneous breathing trial, of pressure support of 5 and CPAP of 5. He continues on Ancef. White count 18.8, hemoglobin 8.2, hematocrit 25.8, platelet count 78,000. Sodium 144, potassium 4.1, chlorides 117, CO2 26, BUN 47, creatinine 1.18. Glucose is 340. Albumin is 2.1. Previous blood cultures from October 06 show group A streptococci. Chest x-ray shows bibasilar infiltrates. The patient is seen today October 28, 2024 in follow-up in the intensive care unit. He is currently sitting up in bed. Awake. Somewhat slow to respond. He is maintaining good O2 saturation mid 90s on 3 L/min per nasal cannula. He has been afebrile. Hemodynamically stable. Right knee culture was positive for strep A. Previous sputum culture had been positive for enterofactor aerogenes. Follow-up cultures revealed no growth. Pleural fluid cultures revealed no growth. He 2. Potassium 4.9. Bicarb 21. BUN 58. Creatinine 3.68. Glucose 66. He is continued on DuoNeb and elations. Heparin for DVT prophylaxis. Antibiotics in the form of ertapenem. The patient is seen today October 29, 2024 in follow-up on the selective care unit. He was transferred out of the ICU yesterday. He is currently sitting up in bed. Awake and alert. Still somewhat slow to respond. He is maintaining O2 saturations in the 90s on 3 L/min per nasal cannula. He is been afebrile. Hemodynamically stable. He is status post 1 unit of packed red blood cells this admission. Current hemoglobin 8.0. Platelets 332. White count 7.9. Sodium 139. Potassium 4.4. Bicarb 23. BUN 59. Creatinine 4.24. Glucose 78. Urinalysis with moderate bacteria. Culture pending. He remains on ertapenem. Continued on bronchodilators. Remains on IV diuretics. Currently in a negative balance. Heparin for DVT prophylaxis. The patient is seen today October 30, 2024 in follow-up on the selective care unit. He is currently up in a chair at the bedside. Awake and alert in no acute distress. He is maintaining O2 saturations in the 90s on 3 L/min per nasal cannula. No IV fluids. He is continued on antibiotics in the form of ertapenem. Continued on IV diuretics. Heparin for DVT prophylaxis. Urine culture showing yeast species. Pleural fluid cultures revealed no growth. White count 10.4. Hemoglobin 8.0. MCV 106.8. Platelets 374. Sodium 137. Potassium 4.2. Bicarb 20. BUN 62. Creatinine 4.46. Glucose 87. The patient is seen today October 31, 2024 in follow-up on the selective care unit. He is currently sitting up in bed. Awake and alert in no acute distress. He is maintaining O2 saturations in the 90s on 3 L/min per nasal cannula. White count 8.7. Hemoglobin 7.5. Platelets 365. Sodium 138. Potassium 4.2. Bicarb 21. BUN 60. Creatinine 4.87. Glucose 207. He remains on DuoNeb i nhalations. Antibiotics in the form of ertapenem. Currently on fluconazole. Remains on IV diuretics. He is making urine. The patient is seen today November 01, 2024 in follow-up on the selective care unit. He is currently sitting up in a chair. Awake and alert in no acute distress. Maintaining O2 saturations in the 90s on 2 L/min per nasal cannula. Sodium 136. Potassium 4.0. Bicarb 21. BUN 60. Creatinine 4.93. Glucose 114. He is continued on ertapenem. Now initiated on Diflucan. Heparin for DVT prophylaxis. He remains on IV Lasix. Making urine. Creatinine continues to rise. May need renal replacement therapy per nephrology. Progress note dated November 02, 2024. 64-year-old male who is now been in the hospital for 27 days. The patient is seen today in room 384. The patient remains on oxygen, by nasal cannula at 3 L. Saturations are in the low 90s. The patient is laying nearly flat in bed. No distress. Current labs include a white count 5.6, hemoglobin 6.9, hematocrit 21.8, and a platelet count is normal. Sodium 136, potassium 4.6, chlorides 105, CO2 24, BUN 59, creatinine 5.24. Glucose is 166. Calcium is 8.5. Progress note dated November 03, 2024. 64-year-old male seen today in room 384. His overall condition is unchanged. He has not been in the hospital for nearly a month. He is on 2 L of oxygen. No IV fluids. Clinically, he is unchanged. Currently white count is 6.1, hemoglobin 7.5, hematocrit 23.6, platelet count 342,000. Sodium 134, potassium 4.4, chlorides 104, CO2 23, BUN is 59, and creatinine is 5.11. Glucose is 241. Calcium is 8, magnesium is 1.3. On 11/04/2024, the patient is being seen for a follow-up. The patient is awake and alert and communicating. He denies having any respiratory difficulties. In regards to his altered mentation, the patient underwent an MRI of the brain that showed no evidence of any infarct. His mental status is gradually improved and he seems to be back to his baseline. In terms of his respiratory status, he is still on 2 L of oxygen by nasal cannula with a pulse ox of around 90 to 91%. A repeat chest x-ray was done today and it showed smaller lung volumes and generalized hazy appearance in the lung bases probably due to underlying residual pleural effusion. The patient otherwise is maintained on DuoNeb nebulized treatments [id number]. The patient is on Lasix 40 mg IV every 24 hours. The patient remains on IV Invanz. He is on amiodarone 200 mg p.o. twice daily and metoprolol 12.5 mg twice daily for rate control and is also on a prednisone burst taper. He remains on Levemir insulin 20 units twice a day and NovoLog scan scale coverage. He is quite weak and debilitated due to this prolonged hospitalization. On 11/05/2024, the patient remains quite debilitated and weak. No confusion. No altered mentation. No signs of any delirium tremens. The patient is still on oxygen at 3 L with a pulse ox of 94%. Blood work from today shows a white cell count of 9.8 with a hemoglobin 8.3 and a platelet count of 460. BUN is 58 and a creatinine is down to 4.3 and a sodium levels at 134. The patient is being monitored by nephrology. Renal function is improving. Nonoliguric. He is on IV Lasix. He does have some trace edema lower extremities bilaterally. As such, we will continue the current treatment for now and avoid any nephrotoxic agents. The patient is on DuoNeb updrafts, the patient is on prednisone burst taper and currently is on a dose of 30 mg p.o. today. Remains on Levemir insulin 20 units twice a day NovoLog sign scale coverage. He remains on IV Invanz and Diflucan. The chest x-ray done on 11/04/2024 showed smaller lung volumes with generalized haziness possibly presenting some pulm vessel congestion and small pleural effusions. 11/06/2024, the patient is being seen for a follow-up. The patient Is awake and alert and stable. Pulse ox is 95% on 2 L of oxygen by nasal cannula. Producing adequate amount of urine output and the renal function continues to improve. BUN is 57 with a creatinine of 3.9. Sodium levels at 132 and a potassium level is at 4.4. Remains on IV Invanz. Remains on Diflucan. Remains on prednisone burst taper and currently the patient is on a dose of 30 mg p.o. daily. Most recent chest x-ray from 11/04/2024 still showing presence of smaller lung volumes and hazy lower lobe atelectatic changes with small effusions. Nephrology on the case. No need for dialysis at this point in time as long as the patient renal function continues to improve. Very much debilitated and weak. On 11/07/2024, the patient is being seen for a follow-up. The patient is resting comfortably in bed. He is currently on 2 L of oxygen by nasal cannula with a pulse ox of 91%. There is ongoing improvement in renal function and the patient remains on Lasix 40 mg IV every 24 hours. Fluid balance is -1 L over the past 24 hours. Blood work shows a drop in the creatinine down to 3.58 with a BUN of 55. Sodium levels at 134, white cell count is 9.6 with a hemoglobin 9.1. The patient remains on DuoNeb updrafts. The patient remains on Rocephin and Diflucan. Rest of the medication remains unchanged. Chest x-ray from 11/07/2024 shows some blunting of the costophrenic angles with some small layering of the pleural fluid. The primary care team ordered an ultrasound and it showed a right-sided pleural effusion with a 10 cm pocket. Noted the patient's pleural fluid was drained during this hospitalization at the earlier stage. Nevertheless, he is responding well to diuretics. Objective - Vital Signs Vital signs: Vital Signs Temp 97.2 F L 11/07/24 08:00 Pulse 81 11/07/24 08:00 Resp 16 11/07/24 08:00 BP 102/54 11/07/24 08:00 Pulse Ox 93 L 11/07/24 08:00 FiO2 4 10/28/24 04:00 Intake & Output 11/06/24 11/07/24 11/07/24 18:59 06:59 18:59 Intake Total 460 240 300 Output Total 500 675 Balance -40 -435 300 Weight 53.8 kg Intake: Oral 460 240 300 Output: Urine 500 675 Other: Voiding Method Indwelling Catheter Indwelling Catheter Indwelling Catheter ABP, PAP, CO, CI - Last Documented Arterial Blood Pressure 128/42 - Exam No acute distress, currently on 2 L. The patient has a very flat affect. Calm and comfortable, no significant respiratory distress HEENT examination is grossly unremarkable. Mucous membranes are moist. No oral lesions. Neck supple. Full range of motion. No adenopathy thyromegaly or neck vein distention. Cardiovascular examination reveals regular rhythm rate. S1-S2 normal. No S3 or S4. No discernible murmur noted. Lungs reveal scattered bilateral rhonchi. No wheezes. No crackles. Breath sounds are equal bilaterally. Abdomen soft bowel sounds are heard. No masses or tenderness. Extremities are intact. No cyanosis clubbing or edema. Skin is without rash or lesion. Neurologic examination is brief but nonfocal. Generalized global weakness in all 4 extremities and her neurologic exam is nonfocal. - Labs CBC & Chem 7: 11/07/24 07:34 11/07/24 07:34 Labs: Abnormal Lab Results - Last 24 Hours (Table) 11/06/24 11/06/24 11/07/24 Range/Units 16:14 20:37 06:25 RBC (4.30-5.90) m/uL Hgb (13.0-17.5) gm/dL Hct (39.0-53.0) % MCV (80.0-100.0) fL Sodium (137-145) mmol/L BUN (9-20) mg/dL Creatinine (0.66-1.25) mg/dL Glucose (74-99) mg/dL POC Glucose (mg/dL) 170 H 301 H 207 H (70-110) mg/dL Calcium (8.4-10.2) mg/dL Albumin (3.5-5.0) g/dL 11/07/24 11/07/24 Range/Units 07:34 07:34 RBC 2.83 L (4.30-5.90) m/uL Hgb 9.1 L (13.0-17.5) gm/dL Hct 29.0 L (39.0-53.0) % MCV 102.6 H (80.0-100.0) fL Sodium 134 L (137-145) mmol/L BUN 55 H (9-20) mg/dL Creatinine 3.58 H (0.66-1.25) mg/dL Glucose 175 H (74-99) mg/dL POC Glucose (mg/dL) (70-110) mg/dL Calcium 8.3 L (8.4-10.2) mg/dL Albumin 2.6 L (3.5-5.0) g/dL Assessment and Plan Plan: Acute hypoxic respiratory failure, the patient has been intubated on 10/10/2024 following his knee surgery and the patient remains intubated on the mechanical ventilator, chest x-ray is unchanged and the patient continues to have atelectatic changes and small infiltrates in the lung base bilaterally. The patient was extubated on 10/15/2024 and subsequently reintubated on 10/18/2024 for an extensive left lung pneumonia with mucous plugs. Bronchoscopy was done on 10/18/2024 and 10/19/2024 with removal of extensive mucous plugs from the left mainstem bronchus and the left lower lobe. The preliminary sputum culture is positive for Enterobacter aerogenes. The patient was extubated on 10/22/2024. The patient remains on IV Invanz. Chest x-ray from 11/04/2024 shows small bilateral pleural effusion and pulm vessel congestion. Repeat chest x-ray on 11/07/2024 shows a bilateral pleural effusion slightly worse on the right with an ultrasound showing a 10 cm pocket on the right. Acute kidney injury, nonoliguric and acute renal function is improving, the patient is producing adequate amount of urine output Bilateral pleural effusions, see above Encephalopathy, multifactorial. The patient had delirium tremens and subsequently patient was treated for septic shock. The patient's encephalopathy is improved and the patient is awake and alert and communicating. MRI of the brain was negative for an acute stroke Right-sided pleural effusion status postthoracentesis with removal of 400 cc of pleural fluid earlier during this current hospitalization Septic shock, recovered Septic arthritis of the right knee secondary to strep group A , status post arthroscopy, with arthroscopic lavage and debridement of the right knee, partial medial meniscectomy and medial femoral condyle and medial tibial plateau chondroplasty. Back pain. MRI of the cervical spine showed disc bulge centrally and left parasternally at the level of T2-3 and moderate anterior thecal sac compression without cord deformity. The patient also has broad-based disc bulge at the level of C6/T1 and to lesser degrees T1-T2 and C6/C7 Chronic alcohol abuse, with acute alcohol withdrawal syndrome, recovered Status post fall, with rhabdomyolysis, secondary to immobility, recovered Chronic anemia History of coronary artery disease, with previous catheterization and stent placement. CHF with mild impairment LV function with an ejection fraction of 45% Paroxysmal atrial fibrillation, current rhythm is sinus, maintained on a combination of amiodarone and metoprolol. No anticoagulants for now Diabetes mellitus type I Gastroesophageal reflux disease. Hyperlipidemia. Hypertension. History of myocardial infarction. History of osteoarthritis. Plan: Patient is currently on 2L of oxygen by nasal cannula Encouraged use of incentive spirometer Continue IV Lasix 40 mg every 24 hours, nephrology on the case Patient is responding well to diuretics and renal function continues to improve. No need for immediate thoracentesis as the patient respiratory status is stable and the patient responding to diuretics. May consider thoracentesis should there be any respiratory decompensation. Noted this right-sided pleural fluid was drained earlier during this current hospitalization. Monitor creatinine Continue combination of amiodarone and metoprolol Chest x-ray from 11/04/2024 was noted and the patient continues to have bilateral lower lobe pleural effusions Continue IV Invanz Change Levemir insulin 20 units twice daily with Scale insulin coverage and watch for any signs of hypoglycemia Monitor fluid balance PT evaluation and increase mobility Will continue to follow.
[2024-11-07 20:30] LABS: Glucose,Whole Blood 313 mg/dL (70-110)
[2024-11-08 06:26] LABS: Glucose,Whole Blood 85 mg/dL (70-110)
[2024-11-08 09:12] LABS: Basophils % (A) 0 %; Eosinophils # (A) 0.1 k/uL (0-0.7); Eosinophils % (A) 1 %; HCT 26.3 % (39.0-53.0); HGB 8.3 gm/dL (13.0-17.5); Hypochromasia Moderate; Lymphocytes # (A) 1.5 k/uL (1.0-4.8); Lymphocytes % (A) 15 %; MCH 32.8 pg (25.0-35.0); MCHC 31.7 g/dL (31.0-37.0); MCV 103.5 fL (80.0-100.0); Macrocytosis Slight; Mean Platelet Volume 7.6; Monocytes # (A) 0.8 k/uL (0-1.0); Monocytes % (A) 8 %; Neutrophils # (A) 7.6 k/uL (1.3-7.7); Neutrophils % (A) 76 %; Platelet Count 414 k/uL (150-450); RBC 2.54 m/uL (4.30-5.90); RDW 15.3 % (11.5-15.5)
--- NOTE | 2024-11-08 09:31 | PN ---
PROGRESS NOTE DATE OF SERVICE: 11/07/2024 SUBJECTIVE: This is a 64-year-old gentleman, who was admitted with multiple medical issues, had group A strep bacteremia. The patient also has a significant history of EtOH also. The patient also got persistent right pleural effusion. Ultrasound showed of 10.5. The creatinine is still elevated at 3.58. Blood sugar was elevated at 460. PAST MEDICAL HISTORY: Reviewed. REVIEW OF SYSTEMS: 14-point review is negative except as mentioned earlier. CURRENT MEDICATIONS: Reviewed. PHYSICAL EXAMINATION: VITAL SIGNS: Pulse is 85, blood pressure n, respirations 16. HEENT: Conjunctivae normal. NECK: No JVD. CARDIOVASCULAR: S1, S2. RESPIRATIONS: Breath sounds diminished at the bases. Scattered rhonchi. ABDOMEN: Soft. NERVOUS SYSTEM: No focal deficits. LABORATORY DATA: Noted. ASSESSMENT: 1. Acute strep group A bacteremia sepsis with right knee pyogenic arthritis, present on admission. 2. ETOH. 3. Acute hypoxic respiratory failure. 4. Congestive heart failure. 5. Paroxysmal atrial fibrillation. 6. Right-sided pleural effusion. 7. Diabetes mellitus, type 2, uncontrolled with hyperglycemia. 8. Acute on chronic kidney disease. RECOMMENDATIONS: I recommend to continue current medications, continue symptomatic treatment. Continue with antibiotics. PT/OT evaluation. Monitor creatinine closely. Repeat labs. Avoid nephrotoxic medications. The patient had pleural effusion. Recommend possible tap for evaluation for empyema and other issues per Pulmonary. Guarded prognosis. Further recommendations to follow. See orders for further details. We will initiate Lantus and coverage also. MMODL / IJN: [id number] / MTDD
[2024-11-08 09:47] LABS: ALT 9 U/L (4-49); AST 18 U/L (17-59); African American GFR (CKD) 23 (>60 ml/min/1.73 sqM); Albumin 2.4 g/dL (3.5-5.0); Alkaline Phosphatase 74 U/L (38-126); Anion Gap 7 mmol/L; Blood Urea Nitrogen 53 mg/dL (9-20); Calcium 8.2 mg/dL (8.4-10.2); Carbon Dioxide 25 mmol/L (22-30); Chloride 102 mmol/L (98-107); Creatine Kinase 23 U/L (55-170); Glucose 78 mg/dL (74-99); Magnesium 1.4 mg/dL (1.6-2.3); Non-African American GFR(CKD) 20 (>60 ml/min/1.73 sqM); Potassium 4.4 mmol/L (3.5-5.1); Sodium 134 mmol/L (137-145); Total Bilirubin 0.3 mg/dL (0.2-1.3); Total Protein 6.1 g/dL (6.3-8.2)
[2024-11-08 10:53] LABS: Free Kappa Lt Chain Qnt, Urine 43.13 mg/dL (0.00-3.29)
[2024-11-08 11:24] LABS: Glucose,Whole Blood 215 mg/dL (70-110)
--- NOTE | 2024-11-08 11:58 | P.PN ---
Subjective Patient is seen in follow-up for acute kidney injury. Renal function improving. Nonoliguric. On IV Lasix. Oral intake is good. Hemodynamically stable. No active complaints. Vital signs are stable. General: No acute distress. HEENT: On nasal cannula. LUNGS: No audible rhonchi or wheezes. HEART: Rate and Rhythm are regular. ABDOMEN: No distention. EXTREMITITES: 1+ edema. Objective - Vital Signs Vital signs: Vital Signs Temp 96.3 F L 11/08/24 09:00 Pulse 87 11/08/24 11:28 Resp 17 11/08/24 09:00 BP 118/65 11/08/24 09:00 Pulse Ox 93 L 11/08/24 09:00 FiO2 4 10/28/24 04:00 Intake & Output 11/07/24 11/08/24 11/08/24 18:59 06:59 18:59 Intake Total 640 540 200 Output Total 1999 1913 Balance -1360 -1373 200 Weight 53.8 kg 89.5 kg Intake: Intake, IV Titration 100 Amount cefTRIAXone 2 gm In 100 Sodium Chloride 0.9% 50 ml @ 100 mls/hr IVPB Q24HR [facility] Rx#:[id number] Oral 540 540 200 Output: Urine 1999 1340 Post Void Residual 572 Stool 1 Other: Voiding Method Indwelling Catheter Indwelling Catheter Indwelling Catheter # Voids 1 # Bowel Movements 1 200 ABP, PAP, CO, CI - Last Documented Arterial Blood Pressure 128/42 - Labs CBC & Chem 7: 11/08/24 08:06 11/08/24 08:06 Labs: Abnormal Lab Results - Last 24 Hours (Table) 11/05/24 11/07/24 11/07/24 Range/Units 23:23 11:58 16:50 RBC (4.30-5.90) m/uL Hgb (13.0-17.5) gm/dL Hct (39.0-53.0) % MCV (80.0-100.0) fL Sodium (137-145) mmol/L BUN (9-20) mg/dL Creatinine (0.66-1.25) mg/dL POC Glucose (mg/dL) 468 H 186 H (70-110) mg/dL Calcium (8.4-10.2) mg/dL Magnesium (1.6-2.3) mg/dL Creatine Kinase (55-170) U/L Total Protein (6.3-8.2) g/dL Albumin (3.5-5.0) g/dL U Free [place] Ch 43.13 H (0.00-3.29) mg/dL 11/07/24 11/08/24 11/08/24 Range/Units 20:29 08:06 08:06 RBC 2.54 L (4.30-5.90) m/uL Hgb 8.3 L (13.0-17.5) gm/dL Hct 26.3 L (39.0-53.0) % MCV 103.5 H (80.0-100.0) fL Sodium 134 L (137-145) mmol/L BUN 53 H (9-20) mg/dL Creatinine 3.14 H (0.66-1.25) mg/dL POC Glucose (mg/dL) 313 H (70-110) mg/dL Calcium 8.2 L (8.4-10.2) mg/dL Magnesium 1.4 L (1.6-2.3) mg/dL Creatine Kinase 23 L (55-170) U/L Total Protein 6.1 L (6.3-8.2) g/dL Albumin 2.4 L (3.5-5.0) g/dL U Free [place] Ch (0.00-3.29) mg/dL 11/08/24 Range/Units 11:23 RBC (4.30-5.90) m/uL Hgb (13.0-17.5) gm/dL Hct (39.0-53.0) % MCV (80.0-100.0) fL Sodium (137-145) mmol/L BUN (9-20) mg/dL Creatinine (0.66-1.25) mg/dL POC Glucose (mg/dL) 215 H (70-110) mg/dL Calcium (8.4-10.2) mg/dL Magnesium (1.6-2.3) mg/dL Creatine Kinase (55-170) U/L Total Protein (6.3-8.2) g/dL Albumin (3.5-5.0) g/dL U Free [place] Ch (0.00-3.29) mg/dL Assessment and Plan Plan: Assessment: 1. Acute kidney injury secondary to ATN secondary to septic shock and rhabdomyolysis. Creatinine 3.18 on admission and improved to 0.89 dated Novembe r 2023 -worsened with diuresis. Also concern for interstitial nephritis with urine eosinophils at 7. Started on prednisone November 01, 2024. Serologies negative except for positive serum immunofixation. Being followed by oncology. No hydronephrosis noted on kidney ultrasound. Creatinine peaked at 5.24 this admission and is 3.14 today. 2. Rhabdomyolysis secondary to immobility. Resolved. 3. Strep bacteremia on antibiotics. Being treated for pneumonia. Status post bronchoscopy October 18, 2024. ID following. 4. Anion gap metabolic acidosis secondary to acute kidney injury. On oral bicarb. Better. 5. Hypernatremia from lack of oral water intake. Status post D5W. Resolved. 6. Hypomagnesemia from poor intake and diuresis. On oral magnesium oxide. 7. History of alcohol abuse. 8. Hypocalcemia secondary to acute kidney injury as well as intracellular shifting from bicarb. PTH 112. Vitamin D level 26.5. On vitamin D. Corrected calcium in the normal range. 9. A-fib with RVR maintained on amiodarone and Lopressor. 10. Volume overload. On IV Lasix. 11. Acute blood loss anemia status post blood transfusion this admission. Receiving IV iron. Plan: Maintain IV Lasix. 2 g IV magnesium sulfate today. Increase frequency of magnesium oxide to twice daily. Maintain prednisone. Decrease dose to 20 mg. This will be further tapered over the next few weeks. Avoid nephrotoxins. Continue to monitor renal function and urine output. Will need kidney biopsy if no improvement in renal function over the next 1 to 2 weeks. Case discussed with oncology. Potential discharge to rehab. Repeat BMP and magnesium level 2 to 3 days postdischarge. Follow-up outpatient 1 week postdischarge.
[2024-11-08] MEDS: MAGNESIUM SULFATE-D5W PMX 1 GM in DEXTROSE/WATER 1 100ML.BAG IVPB SCH (12:17)
--- NOTE | 2024-11-08 15:13 | P.PN ---
Subjective Progress Note Date: 11/08/24 Patient is a 64-year-old male who is being seen in the ICU due to hypovolemic shock and rhabdomyolysis. He is a poor historian due to altered mental status and unresponsiveness. All history is obtained from the chart. He initially presented to the emergency department after being found facedown on the ground with a contusion to his forehead and abrasions to his knee and left toes. She stated that he had been having nausea and vomiting for a day prior to being found down. He was noted to have diarrhea as well. Patient is a daily drinker and consumes about a fifth per day according to the notes he has not drank for the 2 days prior to this admission. He also has a history of type 1 diabetes mellitus. Initial EKG showed sinus tachycardia. Head/cervical spine CT showed no acute intracranial process and no acute fracture or traumatic subluxation of the cervical spine. Initial chest x-ray showed right middle lobe scarring/atelectasis, no acute pulmonary process. He had received 4 L of normal saline. Initial labs showed CK level of 18,113, WBCs 10.7, hemoglobin 12.5, sodium 126, creatinine 3.18 lactic acid 6.9, AST 401, ALT 65. Preliminary blood culture showed gram-positive cocci and patient was started on vancomycin. 10/07/2024. He is maintained on a bicarb drip as well as normal saline. He remains unresponsive to verbal stimulation. He is maintained on CIWA protocol. Labs today: WBCs 5.1, hemoglobin 11.6, sodium 126, potassium 3.8, BUN 53, creatinine 3.12, ammonia <9. Progress note dated October 08, 2024. 64-year-old male seen in room 252. I was notified by the nurse at nighttime, that the patient's blood pressure continued to drop. We bumped up his dose of n orepinephrine, and gave him a liter of fluid. In addition, his respiratory status was marginal, and the blood gas was ordered. The patient is currently on 6 L of oxygen. The patient was admitted on October 06. He is getting saline at 150 cc an hour, and Precedex at 0.4 mcg/kg/h. His norepinephrine is running at 31 mcg/min. There is staphylococci in his blood. I have asked the nurses to add Ativan Dilaudid and Haldol to his regimen, to try to wean him off the dexmedetomidine. White count of 9.1, hemoglobin hematocrit 29, platelet count 88,000. Sodium 131, potassium 3, chloride 92, CO2 32, BUN 50, creatinine 2.34. Glucose is 167. Calcium is 6.3. CK was 8796. AST is 507. ALT is 136. Albumin is 2.2. Blood cultures from the were positive for Streptococcus group A. Chest x-ray shows bilateral effusions, small, with low lung volumes. 10/09/2024. Patient seen as a followup. No acute events overnight. He is currently on 6 L of oxygen. He was on dextrose 5% - 0.9% NaCl, blood sugars have been in the mid to high 200s. He is receiving Kefzol for streptococcal group A bacteremia. Precedex has been turned off. Levophed is 0.3 mcg/kg/min. WBCs 12.3, hemoglobin 9.7, hematocrit 27.7, platelets 48. Sodium 133, potassium 3.7, chloride 105, CO2 19, BUN 42, creatinine 1.62. Glucose 267. Calcium 6.4. CK 3888. AST 323, ALT 78. Albumin 2.2. Today's chest x-ray showed cardiomegaly, pulmonary vascular congestion, and bilateral pleural effusions. 10/10/2024. Patient is being seen as a followup in the ICU. Overnight he went into A-fib with rapid ventricular rate, was started on an amiodarone drip at 1mg/min, and converted back to normal sinus rhythm. His pressures remain in the 100s/40s and pulses are He is currently on 15 L high flow oxygen. He is on no rmal saline at 150 cc/h. He is maintained on Kefzol for streptococcal group A bactermia, today is day 3. Levophed is at 0.11 mcg/kg/min, vasopressin at 0.02 mcg/kg/min. WBCs 16.4, hemoglobin 9.8, hematocrit 29.6, platelets 38. Sodium 138, potassium 3.5, chloride 112, CO2 23, BUN 35, creatinine 1.26, glucose 164. Ionized calcium 4.1. CK 988. AST 154, ALT 36. Cortisol 32. TSH 4.3830. In addition, he removed his NG tube overnight. Today's chest x-ray is unchanged from previous. He remains lethargic and barely responsive to verbal stimulation. 10/11/2024. Patient is seen in the ICU. He underwent arthroscopic lavage of the right knee yesterday evening and returned to the ICU intubated on mechanical ventilation. He is currently on assist-control mode with rate 18, tidal volume 450, FiO2 70%, PEEP 5. ABG shows pH 7.34, pCO2 37, pO2 95. He is maintained on vasopressin 0.02 units/min, Levophed 0.14 mcg/kg/min, normal saline at 100 cc/h, and Kefzol day 4. WBCs 18.1, hemoglobin 8.8, hematocrit 27.6, platelets 52, sodium 140, potassium 3.9, chloride 115, CO2 17, BUN 35, creatinine 1.08, glucose 191, creatinine kinase 215. Calcium 6.5. Magnesium 1.6. He began IV hydrocortisone 50 mg every 6 hours yesterday. Liver ultrasound performed yesterday revealed no acute process. Chest x-ray today is unchanged from previous. 10/12/2024. Patient is evaluated in the ICU. He remains intubated on mechanical ventilation on assist-control mode with rate 18, tidal volume 450, Fi O2 50%, PEEP 5. ABG shows pH 7.42, pCO2 38, pO2 74. His RSBI yesterday was 110 and he was unable to follow commands so he could not be extubated. He is maintained on vasopressin 0.02 units/min, normal saline at 20 cc/h, IV hydrocortisone 50 mg every 6 hours, and Kefzol day 5. WBCs 17.4, hemoglobin 8.2, hematocrit 25.2, platelets 53, sodium 142, potassium 3.7, chloride 116, CO2 23, BUN 39, creatinine 1.18, glucose 258. Ionized calcium 4.4. Magnesium 1.8. Today's chest x-ray is unchanged. Wound culture gram stain of the right knee preliminary report shows rare gram positive cocci. Progress note dated October 13, 2024. 64-year-old male seen in the intensive care unit, room 252. The patient remains on the mechanical ventilator. He is on volume assist-control, rate 18, tidal volume 450, FiO2 50%, PEEP of 5. Blood gases show pO2 72, pCO2 41, and pH is 7.42. The patient is on propofol at 35 mcg/kg/min, saline at 20 cc an hour, and vital high-protein at 60, with goal of 70. Yesterday, he had a brief spontaneous breathing trial, and he did poorly. Today he will again have a s pontaneous breathing trial, of pressure support of 5 and CPAP of 5. He continues on Ancef. White count 18.8, hemoglobin 8.2, hematocrit 25.8, platelet count 78,000. Sodium 144, potassium 4.1, chlorides 117, CO2 26, BUN 47, creatinine 1.18. Glucose is 340. Albumin is 2.1. Previous blood cultures from October 06 show group A streptococci. Chest x-ray shows bibasilar infiltrates. The patient is seen today October 28, 2024 in follow-up in the intensive care unit. He is currently sitting up in bed. Awake. Somewhat slow to respond. He is maintaining good O2 saturation mid 90s on 3 L/min per nasal cannula. He has been afebrile. Hemodynamically stable. Right knee culture was positive for strep A. Previous sputum culture had been positive for enterofactor aerogenes. Follow-up cultures revealed no growth. Pleural fluid cultures revealed no growth. He 2. Potassium 4.9. Bicarb 21. BUN 58. Creatinine 3.68. Glucose 66. He is continued on DuoNeb and elations. Heparin for DVT prophylaxis. Antibiotics in the form of ertapenem. The patient is seen today October 29, 2024 in follow-up on the selective care unit. He was transferred out of the ICU yesterday. He is currently sitting up in bed. Awake and alert. Still somewhat slow to respond. He is maintaining O2 saturations in the 90s on 3 L/min per nasal cannula. He is been afebrile. Hemodynamically stable. He is status post 1 unit of packed red blood cells this admission. Current hemoglobin 8.0. Platelets 332. White count 7.9. Sodium 139. Potassium 4.4. Bicarb 23. BUN 59. Creatinine 4.24. Glucose 78. Urinalysis with moderate bacteria. Culture pending. He remains on ertapenem. Continued on bronchodilators. Remains on IV diuretics. Currently in a negative balance. Heparin for DVT prophylaxis. The patient is seen today October 30, 2024 in follow-up on the selective care unit. He is currently up in a chair at the bedside. Awake and alert in no acute distress. He is maintaining O2 saturations in the 90s on 3 L/min per nasal cannula. No IV fluids. He is continued on antibiotics in the form of ertapenem. Continued on IV diuretics. Heparin for DVT prophylaxis. Urine culture showing yeast species. Pleural fluid cultures revealed no growth. White count 10.4. Hemoglobin 8.0. MCV 106.8. Platelets 374. Sodium 137. Potassium 4.2. Bicarb 20. BUN 62. Creatinine 4.46. Glucose 87. The patient is seen today October 31, 2024 in follow-up on the selective care unit. He is currently sitting up in bed. Awake and alert in no acute distress. He is maintaining O2 saturations in the 90s on 3 L/min per nasal cannula. White count 8.7. Hemoglobin 7.5. Platelets 365. Sodium 138. Potassium 4.2. Bicarb 21. BUN 60. Creatinine 4.87. Glucose 207. He remains on DuoNeb i nhalations. Antibiotics in the form of ertapenem. Currently on fluconazole. Remains on IV diuretics. He is making urine. The patient is seen today November 01, 2024 in follow-up on the selective care unit. He is currently sitting up in a chair. Awake and alert in no acute distress. Maintaining O2 saturations in the 90s on 2 L/min per nasal cannula. Sodium 136. Potassium 4.0. Bicarb 21. BUN 60. Creatinine 4.93. Glucose 114. He is continued on ertapenem. Now initiated on Diflucan. Heparin for DVT prophylaxis. He remains on IV Lasix. Making urine. Creatinine continues to rise. May need renal replacement therapy per nephrology. Progress note dated November 02, 2024. 64-year-old male who is now been in the hospital for 27 days. The patient is seen today in room 384. The patient remains on oxygen, by nasal cannula at 3 L. Saturations are in the low 90s. The patient is laying nearly flat in bed. No distress. Current labs include a white count 5.6, hemoglobin 6.9, hematocrit 21.8, and a platelet count is normal. Sodium 136, potassium 4.6, chlorides 105, CO2 24, BUN 59, creatinine 5.24. Glucose is 166. Calcium is 8.5. Progress note dated November 03, 2024. 64-year-old male seen today in room 384. His overall condition is unchanged. He has not been in the hospital for nearly a month. He is on 2 L of oxygen. No IV fluids. Clinically, he is unchanged. Currently white count is 6.1, hemoglobin 7.5, hematocrit 23.6, platelet count 342,000. Sodium 134, potassium 4.4, chlorides 104, CO2 23, BUN is 59, and creatinine is 5.11. Glucose is 241. Calcium is 8, magnesium is 1.3. On 11/04/2024, the patient is being seen for a follow-up. The patient is awake and alert and communicating. He denies having any respiratory difficulties. In regards to his altered mentation, the patient underwent an MRI of the brain that showed no evidence of any infarct. His mental status is gradually improved and he seems to be back to his baseline. In terms of his respiratory status, he is still on 2 L of oxygen by nasal cannula with a pulse ox of around 90 to 91%. A repeat chest x-ray was done today and it showed smaller lung volumes and generalized hazy appearance in the lung bases probably due to underlying residual pleural effusion. The patient otherwise is maintained on DuoNeb nebulized treatments [id number]. The patient is on Lasix 40 mg IV every 24 hours. The patient remains on IV Invanz. He is on amiodarone 200 mg p.o. twice daily and metoprolol 12.5 mg twice daily for rate control and is also on a prednisone burst taper. He remains on Levemir insulin 20 units twice a day and NovoLog scan scale coverage. He is quite weak and debilitated due to this prolonged hospitalization. On 11/05/2024, the patient remains quite debilitated and weak. No confusion. No altered mentation. No signs of any delirium tremens. The patient is still on oxygen at 3 L with a pulse ox of 94%. Blood work from today shows a white cell count of 9.8 with a hemoglobin 8.3 and a platelet count of 460. BUN is 58 and a creatinine is down to 4.3 and a sodium levels at 134. The patient is being monitored by nephrology. Renal function is improving. Nonoliguric. He is on IV Lasix. He does have some trace edema lower extremities bilaterally. As such, we will continue the current treatment for now and avoid any nephrotoxic agents. The patient is on DuoNeb updrafts, the patient is on prednisone burst taper and currently is on a dose of 30 mg p.o. today. Remains on Levemir insulin 20 units twice a day NovoLog sign scale coverage. He remains on IV Invanz and Diflucan. The chest x-ray done on 11/04/2024 showed smaller lung volumes with generalized haziness possibly presenting some pulm vessel congestion and small pleural effusions. 11/06/2024, the patient is being seen for a follow-up. The patient Is awake and alert and stable. Pulse ox is 95% on 2 L of oxygen by nasal cannula. Producing adequate amount of urine output and the renal function continues to improve. BUN is 57 with a creatinine of 3.9. Sodium levels at 132 and a potassium level is at 4.4. Remains on IV Invanz. Remains on Diflucan. Remains on prednisone burst taper and currently the patient is on a dose of 30 mg p.o. daily. Most recent chest x-ray from 11/04/2024 still showing presence of smaller lung volumes and hazy lower lobe atelectatic changes with small effusions. Nephrology on the case. No need for dialysis at this point in time as long as the patient renal function continues to improve. Very much debilitated and weak. On 11/07/2024, the patient is being seen for a follow-up. The patient is resting comfortably in bed. He is currently on 2 L of oxygen by nasal cannula with a pulse ox of 91%. There is ongoing improvement in renal function and the patient remains on Lasix 40 mg IV every 24 hours. Fluid balance is -1 L over the past 24 hours. Blood work shows a drop in the creatinine down to 3.58 with a BUN of 55. Sodium levels at 134, white cell count is 9.6 with a hemoglobin 9.1. The patient remains on DuoNeb updrafts. The patient remains on Rocephin and Diflucan. Rest of the medication remains unchanged. Chest x-ray from 11/07/2024 shows some blunting of the costophrenic angles with some small layering of the pleural fluid. The primary care team ordered an ultrasound and it showed a right-sided pleural effusion with a 10 cm pocket. Noted the patient's pleural fluid was drained during this hospitalization at the earlier stage. Nevertheless, he is responding well to diuretics. On 11/08/2024, the patient is being seen for a follow-up. The patient is calm and comfortable. Renal function continues to improve. He is producing adequate amount of urine output. Remains on Lasix 40 mg IV every 24 hours. The patient's BUN is 53 with a creatinine of 3.1. Electrolytes are all within normal limits. He does have bilateral pleural effusion right more than left and we opted to monitor dose if the patient continues to be diuresing well as he recovers from acute kidney injury. The fluid balance is -2.7 L over the past 24 hours. Remains on IV Rocephin. Remains on Diflucan. Rest of the medications remain unchanged. He is currently on a prednisone burst taper and the dose has been reduced down to 20 mg p.o. daily. Remains profoundly weak specially on the right side. Working with physical therapy. Tolerating his diet. Objective - Vital Signs Vital signs: Vital Signs Temp 96.5 F L 11/08/24 11:54 Pulse 65 11/08/24 11:54 Resp 16 11/08/24 11:54 BP 120/70 11/08/24 11:54 Pulse Ox 95 11/08/24 11:54 FiO2 4 10/28/24 04:00 Intake & Output 11/07/24 11/08/24 11/08/24 18:59 06:59 18:59 Intake Total 640 540 200 Output Total 1999 1913 Balance -1360 -1373 200 Weight 53.8 kg 89.5 kg Intake: Intake, IV Titration 100 Amount cefTRIAXone 2 gm In 100 Sodium Chloride 0.9% 50 ml @ 100 mls/hr IVPB Q24HR [facility] Rx#:[id number] Oral 540 540 200 Output: Urine 1999 1340 Post Void Residual 572 Stool 1 Other: Voiding Method Indwelling Catheter Indwelling Catheter Indwelling Catheter # Voids 1 # Bowel Movements 1 200 ABP, PAP, CO, CI - Last Documented Arterial Blood Pressure 128/42 - Exam No acute distress, currently on 2 L. The patient has a very flat affect. Calm and comfortable, no significant respiratory distress HEENT examination is grossly unremarkable. Mucous membranes are moist. No oral lesions. Neck supple. Full range of motion. No adenopathy thyromegaly or neck vein distention. Cardiovascular examination reveals regular rhythm rate. S1-S2 normal. No S3 or S4. No discernible murmur noted. Lungs reveal scattered bilateral rhonchi. No wheezes. No crackles. Breath sounds are equal bilaterally. Abdomen soft bowel sounds are heard. No masses or tenderness. Extremities are intact. No cyanosis clubbing or edema. Skin is without rash or lesion. Neurologic examination is brief but nonfocal. Generalized global weakness in all 4 extremities and her neurologic exam is nonfocal. - Labs CBC & Chem 7: 11/08/24 08:06 11/08/24 08:06 Labs: Abnormal Lab Results - Last 24 Hours (Table) 11/05/24 11/07/24 11/07/24 Range/Units 23:23 16:50 20:29 RBC (4.30-5.90) m/uL Hgb (13.0-17.5) gm/dL Hct (39.0-53.0) % MCV (80.0-100.0) fL Sodium (137-145) mmol/L BUN (9-20) mg/dL Creatinine (0.66-1.25) mg/dL POC Glucose (mg/dL) 186 H 313 H (70-110) mg/dL Calcium (8.4-10.2) mg/dL Magnesium (1.6-2.3) mg/dL Creatine Kinase (55-170) U/L Total Protein (6.3-8.2) g/dL Albumin (3.5-5.0) g/dL U Free [place] Ch 43.13 H (0.00-3.29) mg/dL 11/08/24 11/08/24 11/08/24 Range/Units 08:06 08:06 11:23 RBC 2.54 L (4.30-5.90) m/uL Hgb 8.3 L (13.0-17.5) gm/dL Hct 26.3 L (39.0-53.0) % MCV 103.5 H (80.0-100.0) fL Sodium 134 L (137-145) mmol/L BUN 53 H (9-20) mg/dL Creatinine 3.14 H (0.66-1.25) mg/dL POC Glucose (mg/dL) 215 H (70-110) mg/dL Calcium 8.2 L (8.4-10.2) mg/dL Magnesium 1.4 L (1.6-2.3) mg/dL Creatine Kinase 23 L (55-170) U/L Total Protein 6.1 L (6.3-8.2) g/dL Albumin 2.4 L (3.5-5.0) g/dL U Free [place] Ch (0.00-3.29) mg/dL Assessment and Plan Plan: Acute hypoxic respiratory failure, the patient has been intubated on 10/10/2024 following his knee surgery and the patient remains intubated on the mechanical ventilator, chest x-ray is unchanged and the patient continues to have atelectatic changes and small infiltrates in the lung base bilaterally. The patient was extubated on 10/15/2024 and subsequently reintubated on 10/18/2024 for an extensive left lung pneumonia with mucous plugs. Bronchoscopy was done on 10/18/2024 and 10/19/2024 with removal of extensive mucous plugs from the left mainstem bronchus and the left lower lobe. The preliminary sputum culture is positive for Enterobacter aerogenes. The patient was extubated on 10/22/2024. The patient remains on IV Invanz. Chest x-ray from 11/04/2024 shows small bilateral pleural effusion and pulm vessel congestion. Repeat chest x-ray on 01/08/2024 shows a bilateral pleural effusion slightly worse on the right with an ultrasound showing a 10 cm pocket on the right. The patient continues to diurese well with Lasix. Will monitor the pleural effusions. No need to repeat a thoracentesis at this point in time. Acute kidney injury, nonoliguric and acute renal function is improving, the patient is producing adequate amount of urine output, negative fluid balance Bilateral pleural effusions, see above Encephalopathy, multifactorial. The patient had delirium tremens and subsequently patient was treated for septic shock. The patient's encephalopathy is improved and the patient is awake and alert and communicating. MRI of the b rain was negative for an acute stroke Right-sided pleural effusion status postthoracentesis with removal of 400 cc of pleural fluid earlier during this current hospitalization Septic shock, recovered Septic arthritis of the right knee secondary to strep group A , status post arthroscopy, with arthroscopic lavage and debridement of the right knee, partial medial meniscectomy and medial femoral condyle and medial tibial plateau chondroplasty. Back pain. MRI of the cervical spine showed disc bulge centrally and left parasternally at the level of T2-3 and moderate anterior thecal sac compression without cord deformity. The patient also has broad-based disc bulge at the level of C6/T1 and to lesser degrees T1-T2 and C6/C7 Chronic alcohol abuse, with acute alcohol withdrawal syndrome, recovered Status post fall, with rhabdomyolysis, secondary to immobility, recovered Chronic anemia History of coronary artery disease, with previous catheterization and stent placement. CHF with mild impairment LV function with an ejection fraction of 45% Paroxysmal atrial fibrillation, current rhythm is sinus, maintained on a combination of amiodarone and metoprolol. No anticoagulants for now Diabetes mellitus type I Gastroesophageal reflux disease. Hyperlipidemia. Hypertension. History of myocardial infarction. History of osteoarthritis. Plan: Patient is currently on 2L of oxygen by nasal cannula Encouraged use of incentive spirometer Continue IV Lasix 40 mg every 24 hours, nephrology on the case Patient is responding well to diuretics and renal function continues to improve. Patient remains negative fluid balance. Will monitor renal function. Will monitor pleural effusions. No need for thoracentesis. No need for immediate thoracentesis as the patient respiratory status is stable and the patient responding to diuretics. May consider thoracentesis should there be any respiratory decompensation. Noted this right-sided pleural fluid was drained earlier during this current hospitalization. Monitor creatinine Continue combination of amiodarone and metoprolol Chest x-ray from 11/04/2024 was noted and the patient continues to have bilateral lower lobe pleural effusions Continue IV Rocephin and Diflucan Change Levemir insulin 20 units twice daily with Scale insulin coverage and watch for any signs of hypoglycemia Monitor fluid balance PT evaluation and increase mobility Will continue to follow.
[2024-11-08 16:48] LABS: Glucose,Whole Blood 110 mg/dL (70-110)
[2024-11-08 20:34] LABS: Glucose,Whole Blood 255 mg/dL (70-110)
[2024-11-08] MEDS: MAGNESIUM OXIDE 400 MG TAB PO SCH (20:49)
--- NOTE | 2024-11-08 21:02 | P.PN ---
Subjective Progress Note Date: 11/08/24 No acute events, pt reporting improvement in symptoms since admit. Kidney function slowly improving. Continues on steroids. Hgb stable at 8.3, plt 414 Objective - Vital Signs Vital signs: Vital Signs Temp 96.4 F L 11/08/24 15:32 Pulse 76 11/08/24 15:32 Resp 16 11/08/24 15:32 BP 114/62 11/08/24 15:32 Pulse Ox 95 11/08/24 11:54 FiO2 4 10/28/24 04:00 Intake & Output 11/07/24 11/08/24 11/08/24 18:59 06:59 18:59 Intake Total 640 540 318 Output Total 1999 1913 Balance -1360 -1373 318 Weight 53.8 kg 89.5 kg Intake: Intake, IV Titration 100 Amount cefTRIAXone 2 gm In 100 Sodium Chloride 0.9% 50 ml @ 100 mls/hr IVPB Q24HR PITO Rx#:[id number] Oral 540 540 318 Output: Urine 1999 1340 Post Void Residual 572 Stool 1 Other: Voiding Method Indwelling Catheter Indwelling Catheter Indwelling Catheter # Voids 1 # Bowel Movements 1 200 ABP, PAP, CO, CI - Last Documented Arterial Blood Pressure 128/42 - Constitutional General appearance: Present: average body habitus, no acute distress - EENT Eyes: Present: anicteric sclerae, EOMI ENT: Present: hearing grossly normal - Respiratory Details: breathing is even and unlabored - Cardiovascular Details: skin warm and dry, well perfused - Integumentary Integumentary: Absent: cyanotic, jaundiced - Psychiatric Psychiatric: Present: A&O x's 3 - Labs CBC & Chem 7: 11/08/24 08:06 11/08/24 08:06 Labs: Abnormal Lab Results - Last 24 Hours (Table) 11/05/24 11/07/24 11/08/24 Range/Units 23:23 20:29 08:06 RBC (4.30-5.90) m/uL Hgb (13.0-17.5) gm/dL Hct (39.0-53.0) % MCV (80.0-100.0) fL Sodium 134 L (137-145) mmol/L BUN 53 H (9-20) mg/dL Creatinine 3.14 H (0.66-1.25) mg/dL POC Glucose (mg/dL) 313 H (70-110) mg/dL Calcium 8.2 L (8.4-10.2) mg/dL Magnesium 1.4 L (1.6-2.3) mg/dL Creatine Kinase 23 L (55-170) U/L Total Protein 6.1 L (6.3-8.2) g/dL Albumin 2.4 L (3.5-5.0) g/dL U Free [place] Ch 43.13 H (0.00-3.29) mg/dL 11/08/24 11/08/24 Range/Units 08:06 11:23 RBC 2.54 L (4.30-5.90) m/uL Hgb 8.3 L (13.0-17.5) gm/dL Hct 26.3 L (39.0-53.0) % MCV 103.5 H (80.0-100.0) fL Sodium (137-145) mmol/L BUN (9-20) mg/dL Creatinine (0.66-1.25) mg/dL POC Glucose (mg/dL) 215 H (70-110) mg/dL Calcium (8.4-10.2) mg/dL Magnesium (1.6-2.3) mg/dL Creatine Kinase (55-170) U/L Total Protein (6.3-8.2) g/dL Albumin (3.5-5.0) g/dL U Free [place] Ch (0.00-3.29) mg/dL Assessment and Plan (1) MGUS (monoclonal gammopathy of unknown significance) Current Visit: Yes Status: Acute Code(s): D47.2 - MONOCLONAL GAMMOPATHY SNOMED Code(s): 853848925 (2) Anemia Current Visit: Yes Status: Acute Priority: High Code(s): D64.9 - ANEMIA, UNSPECIFIED SNOMED Code(s): 041887647 (3) Elevated immune protein in blood Current Visit: Yes Status: Acute Priority: High Code(s): D89.2 - HYPERGAMMAGLOBULINEMIA, UNSPECIFIED SNOMED Code(s): 643734080 (4) Rhabdomyolysis Current Visit: Yes Status: Acute Priority: High Code(s): M62.82 - RHABDOMYOLYSIS SNOMED Code(s): 381190164 Plan: Elevated immune protein in blood/MGUS -2 m-spikes noted on SPEP, 1.17g/dl and 0.38g/dl. Immunofixation detected IgG kappa and possibly an IgA kappa, protein elevations. -24 hour urine protein electrophoresis reporting a modest amount of albumin, prominent alpha-2 and beta microglobulin bands, consistent with tubular proteinuria urine. Urine kappa and lambda light chains are elevated, normal ratio. Still pending urine immunofixation. Total protein 24-hour urine high at 2150. -Findings felt to likely represent a MGUS. Dr. Fuentes reviewed the chart and discussed case with Nephrology. Treatment recommendation is usually observation, as long as no end organ damage, symptoms or other abnormal labs. Will plan f/u in clinic in the next 6 weeks and repeat paraprotenemia labs -Ongoing Work up for renal failure per Nephrology. Questionable interstitial nephritis, steroids have been started. Renal function slowly improving. If renal function remains abnormal despite treatments, will need to consider renal biopsy Anemia -Progressive since admit -Multifactorial including medications, dilution, infection, SHERI. -S/P 2 units PRBCs since admit, stable Hgb at this time. Transfuse for Hgb <7 or if symptomatic -Anemia work upmost consistent with inflammation at this time. Recheck labs once pt acute illness is resolved. -Folate deficient-folic acid ordered
--- NOTE | 2024-11-09 05:34 | PN ---
PROGRESS NOTE DATE OF SERVICE: 11/08/2024 SUBJECTIVE: This is a 64-year-old gentleman, who was admitted with initial sepsis, also renal failure and also had right pleural effusion. The patient also had a right knee septic arthritis. fluid and pleural effusion on the right side. Dr. Rice is recommending conservative line of management. OBJECTIVE: VITAL SIGNS: Pulse is 95, blood pressure 120/70, respirations 16. CHEST: Few scattered rhonchi. ABDOMEN: Soft. NERVOUS SYSTEM: Nonfocal. LABORATORY DATA: Hemoglobin 8.3. Creatinine is 3.14. ASSESSMENT: 1. Acute strep group A bacteremia with sepsis with right knee pyogenic arthritis, status post surgery, present on admission. 2. History of ethyl alcohol. 3. Acute hypoxic respiratory failure. 4. Right pleural effusion, on conservative line of treatment. 5. Congestive heart failure. 6. Paroxysmal atrial fibrillation. 7. Diabetes mellitus, type 2, uncontrolled with hyperglycemia, present on admission. 8. Acute on chronic kidney disease. RECOMMENDATIONS: I recommend to continue current. Otherwise, at this time, I would recommend repeat labs and closely follow PT/OT evaluation, possibly it is rehab in the next few days once the patient is stable, but we will monitor the creatinine closely. MMODL / IJN: [id number] / ALIX
[2024-11-09 06:16] LABS: Glucose,Whole Blood 113 mg/dL (70-110)
[2024-11-09 07:59] LABS: Basophils % (A) 0 %; Eosinophils # (A) 0.1 k/uL (0-0.7); Eosinophils % (A) 1 %; HCT 26.5 % (39.0-53.0); HGB 8.2 gm/dL (13.0-17.5); Hypochromasia Moderate; Lymphocytes # (A) 1.5 k/uL (1.0-4.8); Lymphocytes % (A) 15 %; MCH 32.2 pg (25.0-35.0); MCV 103.6 fL (80.0-100.0); Macrocytosis Moderate; Mean Platelet Volume 7.3; Monocytes # (A) 0.7 k/uL (0-1.0); Monocytes % (A) 7 %; Neutrophils # (A) 7.5 k/uL (1.3-7.7); Neutrophils % (A) 77 %; Platelet Count 417 k/uL (150-450); RBC 2.56 m/uL (4.30-5.90); RDW 15.3 % (11.5-15.5); WBC 9.8 k/uL (3.8-10.6)
[2024-11-09 08:10] LABS: African American GFR (CKD) 25 (>60 ml/min/1.73 sqM); Anion Gap 4 mmol/L; Blood Urea Nitrogen 49 mg/dL (9-20); Calcium 8.3 mg/dL (8.4-10.2); Carbon Dioxide 28 mmol/L (22-30); Chloride 104 mmol/L (98-107); Glucose 59 mg/dL (74-99); Non-African American GFR(CKD) 22 (>60 ml/min/1.73 sqM); Sodium 136 mmol/L (137-145)
[2024-11-09] MEDS: predniSONE 20 MG TAB PO SCH (09:40)
--- NOTE | 2024-11-09 10:05 | P.PN ---
Subjective Patient is seen in follow-up for acute kidney injury. Renal function improving. Nonoliguric. On IV Lasix. Oral intake is good. Hemodynamically stable. Blake catheter had to be reinserted due to persistent urinary retention. Vital signs are stable. General: No acute distress. HEENT: On nasal cannula. LUNGS: No audible rhonchi or wheezes. HEART: Rate and Rhythm are regular. ABDOMEN: No distention. EXTREMITITES: 1+ edema. Objective - Vital Signs Vital signs: Vital Signs Temp 98.2 F 11/08/24 20:00 Pulse 80 11/09/24 03:33 Resp 16 11/09/24 03:33 BP 119/70 11/09/24 03:33 Pulse Ox 98 11/09/24 03:33 FiO2 4 10/28/24 04:00 Intake & Output 11/08/24 11/09/24 11/09/24 18:59 06:59 18:59 Intake Total 558 540 240 Output Total 1100 900 Balance 558 -560 -660 Weight 91.5 kg Intake: Oral 558 540 240 Output: Urine 1100 900 Other: Voiding Method Indwelling Catheter Indwelling Catheter # Bowel Movements 1 1 ABP, PAP, CO, CI - Last Documented Arterial Blood Pressure 128/42 - Labs CBC & Chem 7: 11/09/24 07:19 11/09/24 07:19 Labs: Abnormal Lab Results - Last 24 Hours (Table) 11/05/24 11/08/24 11/08/24 Range/Units 23:23 11:23 20:32 RBC (4.30-5.90) m/uL Hgb (13.0-17.5) gm/dL Hct (39.0-53.0) % MCV (80.0-100.0) fL Sodium (137-145) mmol/L BUN (9-20) mg/dL Creatinine (0.66-1.25) mg/dL Glucose (74-99) mg/dL POC Glucose (mg/dL) 215 H 255 H (70-110) mg/dL Calcium (8.4-10.2) mg/dL U Free [place] Ch 43.13 H (0.00-3.29) mg/dL 11/09/24 11/09/24 11/09/24 Range/Units 06:15 07:19 07:19 RBC 2.56 L (4.30-5.90) m/uL Hgb 8.2 L (13.0-17.5) gm/dL Hct 26.5 L (39.0-53.0) % MCV 103.6 H (80.0-100.0) fL Sodium 136 L (137-145) mmol/L BUN 49 H (9-20) mg/dL Creatinine 2.92 H (0.66-1.25) mg/dL Glucose 59 L (74-99) mg/dL POC Glucose (mg/dL) 113 H (70-110) mg/dL Calcium 8.3 L (8.4-10.2) mg/dL U Free [place] Ch (0.00-3.29) mg/dL Microbiology - Last 24 Hours (Table) 10/10/24 12:04 Fungal Culture - Final Knee - Right Assessment and Plan Plan: Assessment: 1. Acute kidney injury secondary to ATN secondary to septic shock and rhabdomyolysis. Creatinine 3.18 on admission and improved to 0.89 dated October 16, 2024 -worsened with diuresis. Also concern for interstitial nephritis with urine eosinophils at 7. Started on prednisone November 01, 2024. Serologies negative except for positive serum immunofixation. Being followed by oncology. No hydronephrosis noted on kidney ultrasound. Creatinine peaked at 5.24 this admission and is 2.92 today. 2. Rhabdomyolysis secondary to immobility. Resolved. 3. Strep bacteremia on antibiotics. Being treated for pneumonia. Status post bronchoscopy October 18, 2024. ID following. 4. Anion gap metabolic acidosis secondary to acute kidney injury. On oral bicarb. Better. 5. Hypernatremia from lack of oral water intake. Status post D5W. Resolved. 6. Hypomagnesemia from poor intake and diuresis. On oral magnesium oxide. Received IV magnesium yesterday. 7. History of alcohol abuse. 8. Hypocalcemia secondary to acute kidney injury as well as intracellular shifting from bicarb. PTH 112. Vitamin D level 26.5. On vitamin D. Corrected calcium in the normal range. 9. A-fib with RVR maintained on amiodarone and Lopressor. 10. Volume overload. On IV Lasix. 11. Acute blood loss anemia status post blood transfusion this admission. Receiving IV iron. Plan: Maintain IV Lasix. Maintain prednisone. Decreased dose to 20 mg November 08, 2024. This will be further tapered over the next few weeks. Avoid nephrotoxins. Continue to monitor renal function and urine output. Will need kidney biopsy if no improvement in renal function over the next 1 to 2 weeks. Case discussed with oncology. Potential discharge to rehab. Repeat BMP and magnesium level 2 to 3 days postdischarge. Follow-up outpatient 1 week postdischarge. Will repeat UA and quantify proteinuria outpatient.
--- NOTE | 2024-11-09 10:42 | P.GSCN ---
History of Present Illness Consult date: 11/09/24 History of present illness: 64-year-old gentleman who came in the hospital after being found down. He was in hypovolemic shock. He had an ICU stay. He also has had rhabdomyolysis. He has renal failure. The patient was a very poor historian upon admission. We are asked see the patient for urinary retention.The patient did have a renal ultrasound on admission that did not show any evidence of hydronephrosis. He had a catheter in his bladder at that time and his bladder was empty. As the patient has recouperated he has had a couple of voiding trials but retained alot of urine. the most recent pvr was 572 ml So a cath was replaced. The patient denies previous problems voiding. He denies hematuria, dysuria incontinence or incomplete voiding. He has had one uti years ago. He was not on flomax prior to admission but is now. Review of Systems All systems: negative - Constitutional Denies fever, Denies weight loss - EENT Eyes: denies blurred vision Ears, nose, mouth and throat: Denies dysphagia - Cardiovascular Denies chest pain, Denies shortness of breath - Respiratory Denies cough, Denies 7 - Gastrointestinal Reports as per HPI - Genitourinary Denies dysuria, Denies hematuria - Integumentary Denies rash, Denies unusual bruising - Neurological Denies headaches, Denies syncope - Hematologic/Lymphatic Denies easy bleeding, Denies easy bruising Past Medical History Past Medical History: Coronary Artery Disease (CAD), Diabetes Mellitus, GERD/Reflux, Hyperlipidemia, Hypertension, Myocardial Infarction (AR), Osteoarthritis (OA) Additional Past Medical History / Comment(s): arthritis in fingers, knees, and neck area; NT in bilat arms Last Myocardial Infarction Date:: 2009 History of Any Multi-Drug Resistant Organisms: None Reported Past Surgical History: Heart Catheterization With Stent Additional Past Surgical History / Comment(s): ANAL FISSURE REPAIR, 2 cardiac stents, bhargavi cataracts. Pain proc Past Anesthesia/Blood Transfusion Reactions: No Reported Reaction Date of Last Stent Placement:: 2015 Past Psychological History: No Psychological Hx Reported Smoking Status: Former smoker Past Alcohol Use History: Daily - Past Family History Father Family Medical History: Cancer Additional Family Medical History / Comment(s): PANCREATIC Medications and Allergies Home Medications Medication Instructions Recorded Confirmed Type Aspirin [Adult Low Dose Aspirin EC] 81 mg PO DAILY 08/29/18 10/06/24 History Insulin Aspart [NovoLOG] See Protocol SQ AC-TID 08/29/18 10/06/24 History Insulin Glargine [Lantus Vial] 20 unit SQ DAILY 08/29/18 10/06/24 History Pantoprazole Sodium [Protonix] 40 mg PO DAILY 08/29/18 10/06/24 History lisinopriL [Zestril] 10 mg PO DAILY 08/29/18 10/06/24 History Atorvastatin [Lipitor] 80 mg PO DAILY #90 tab 10/26/18 10/06/24 Rx Metoprolol Tartrate [Lopressor] 50 mg PO BID 03/02/21 10/06/24 History HYDROcodone/APAP 7.5-325MG [[place] 1 tab PO BID PRN 10/06/24 10/06/24 History 7.5-325] Allergies Allergy/AdvReac Type Severity Reaction Status Date / Time No Known Allergies Allergy Verified 10/06/24 14:43 Surgical - Exam Vital Signs Temp Pulse Resp BP Pulse Ox 103.1 F H 110 H 18 128/109 93 L 10/06/24 14:30 10/06/24 14:30 10/06/24 14:30 10/06/24 14:30 10/06/24 14:30 - General well developed, well nourished, no distress - Eyes normal ocular movement, no icteric - ENT no hearing loss, no congestion - Neck no masses, trachea midline - Respiratory normal respiratory effort, clear to auscultation - Abdomen Abdomen: soft, non tender, no guarding, no rigid, no rebound - Genitourinary indwelling cath. Mild scrotal edema. normal testes. prostate 30 gm broad benign. - Integumentary no rash, no abnormal pigmentation - Neurologic no disoriented, no combative - Psychiatric oriented to time, oriented to person, oriented to place, speech is normal, memory intact Results - Labs 11/09/24 07:19 11/09/24 07:19 Abnormal Lab Results - Last 24 Hours (Table) 11/05/24 11/08/24 11/08/24 Range/Units 23:23 11:23 20:32 RBC (4.30-5.90) m/uL Hgb (13.0-17.5) gm/dL Hct (39.0-53.0) % MCV (80.0-100.0) fL Sodium (137-145) mmol/L BUN (9-20) mg/dL Creatinine (0.66-1.25) mg/dL Glucose (74-99) mg/dL POC Glucose (mg/dL) 215 H 255 H (70-110) mg/dL Calcium (8.4-10.2) mg/dL U Free [place] Ch 43.13 H (0.00-3.29) mg/dL 11/09/24 11/09/24 11/09/24 Range/Units 06:15 07:19 07:19 RBC 2.56 L (4.30-5.90) m/uL Hgb 8.2 L (13.0-17.5) gm/dL Hct 26.5 L (39.0-53.0) % MCV 103.6 H (80.0-100.0) fL Sodium 136 L (137-145) mmol/L BUN 49 H (9-20) mg/dL Creatinine 2.92 H (0.66-1.25) mg/dL Glucose 59 L (74-99) mg/dL POC Glucose (mg/dL) 113 H (70-110) mg/dL Calcium 8.3 L (8.4-10.2) mg/dL U Free [place] Ch (0.00-3.29) mg/dL Microbiology - Last 24 Hours (Table) 10/10/24 12:04 Fungal Culture - Final Knee - Right Diabetes panel 11/09/24 Range/Units 07:19 Sodium 136 L (137-145) mmol/L Potassium 4.0 (3.5-5.1) mmol/L Chloride 104 (98-107) mmol/L Carbon Dioxide 28 (22-30) mmol/L BUN 49 H (9-20) mg/dL Creatinine 2.92 H (0.66-1.25) mg/dL Glucose 59 L (74-99) mg/dL Calcium 8.3 L (8.4-10.2) mg/dL Calcium panel 11/09/24 Range/Units 07:19 Calcium 8.3 L (8.4-10.2) mg/dL Pituitary panel 11/09/24 Range/Units 07:19 Sodium 136 L (137-145) mmol/L Potassium 4.0 (3.5-5.1) mmol/L Chloride 104 (98-107) mmol/L Carbon Dioxide 28 (22-30) mmol/L BUN 49 H (9-20) mg/dL Creatinine 2.92 H (0.66-1.25) mg/dL Glucose 59 L (74-99) mg/dL Calcium 8.3 L (8.4-10.2) mg/dL Adrenal panel 11/09/24 Range/Units 07:19 Sodium 136 L (137-145) mmol/L Potassium 4.0 (3.5-5.1) mmol/L Chloride 104 (98-107) mmol/L Carbon Dioxide 28 (22-30) mmol/L BUN 49 H (9-20) mg/dL Creatinine 2.92 H (0.66-1.25) mg/dL Glucose 59 L (74-99) mg/dL Calcium 8.3 L (8.4-10.2) mg/dL - Imaging US - kidney/bladder: report reviewed, image reviewed Assessment and Plan Assessment: Impression: urinary retention. arf. immobility. alcoholism Recommendations. The urinary retention is probably temporary due to the above issues most prominently being found down, immobility and prolonged hospital stay I recommend leaving the catheter in place until he is ambulatory and close to being discharged. At that time it can be reomved for another voiding trial. =If he doesnt void adequately then he will have to be assesed as an op. Time with Patient: Greater than 30
[2024-11-09 11:17] LABS: Glucose,Whole Blood 132 mg/dL (70-110)
--- NOTE | 2024-11-09 13:44 | P.PN ---
Subjective Progress Note Date: 11/09/24 Patient is a 64-year-old male who is being seen in the ICU due to hypovolemic shock and rhabdomyolysis. He is a poor historian due to altered mental status and unresponsiveness. All history is obtained from the chart. He initially presented to the emergency department after being found facedown on the ground with a contusion to his forehead and abrasions to his knee and left toes. She stated that he had been having nausea and vomiting for a day prior to being found down. He was noted to have diarrhea as well. Patient is a daily drinker and consumes about a fifth per day according to the notes he has not drank for the 2 days prior to this admission. He also has a history of type 1 diabetes mellitus. Initial EKG showed sinus tachycardia. Head/cervical spine CT showed no acute intracranial process and no acute fracture or traumatic subluxation of the cervical spine. Initial chest x-ray showed right middle lobe scarring/atelectasis, no acute pulmonary process. He had received 4 L of normal saline. Initial labs showed CK level of 18,113, WBCs 10.7, hemoglobin 12.5, sodium 126, creatinine 3.18 lactic acid 6.9, AST 401, ALT 65. Preliminary blood culture showed gram-positive cocci and patient was started on vancomycin. 10/07/2024. He is maintained on a bicarb drip as well as normal saline. He remains unresponsive to verbal stimulation. He is maintained on CIWA protocol. Labs today: WBCs 5.1, hemoglobin 11.6, sodium 126, potassium 3.8, BUN 53, creatinine 3.12, ammonia <9. Progress note dated October 08, 2024. 64-year-old male seen in room 252. I was notified by the nurse at nighttime, that the patient's blood pressure continued to drop. We bumped up his dose of n orepinephrine, and gave him a liter of fluid. In addition, his respiratory status was marginal, and the blood gas was ordered. The patient is currently on 6 L of oxygen. The patient was admitted on October 06. He is getting saline at 150 cc an hour, and Precedex at 0.4 mcg/kg/h. His norepinephrine is running at 31 mcg/min. There is staphylococci in his blood. I have asked the nurses to add Ativan Dilaudid and Haldol to his regimen, to try to wean him off the dexmedetomidine. White count of 9.1, hemoglobin hematocrit 29, platelet count 88,000. Sodium 131, potassium 3, chloride 92, CO2 32, BUN 50, creatinine 2.34. Glucose is 167. Calcium is 6.3. CK was 8796. AST is 507. ALT is 136. Albumin is 2.2. Blood cultures from the were positive for Streptococcus group A. Chest x-ray shows bilateral effusions, small, with low lung volumes. 10/09/2024. Patient seen as a followup. No acute events overnight. He is currently on 6 L of oxygen. He was on dextrose 5% - 0.9% NaCl, blood sugars have been in the mid to high 200s. He is receiving Kefzol for streptococcal group A bacteremia. Precedex has been turned off. Levophed is 0.3 mcg/kg/min. WBCs 12.3, hemoglobin 9.7, hematocrit 27.7, platelets 48. Sodium 133, potassium 3.7, chloride 105, CO2 19, BUN 42, creatinine 1.62. Glucose 267. Calcium 6.4. CK 3888. AST 323, ALT 78. Albumin 2.2. Today's chest x-ray showed cardiomegaly, pulmonary vascular congestion, and bilateral pleural effusions. 10/10/2024. Patient is being seen as a followup in the ICU. Overnight he went into A-fib with rapid ventricular rate, was started on an amiodarone drip at 1mg/min, and converted back to normal sinus rhythm. His pressures remain in the 100s/40s and pulses are He is currently on 15 L high flow oxygen. He is on no rmal saline at 150 cc/h. He is maintained on Kefzol for streptococcal group A bactermia, today is day 3. Levophed is at 0.11 mcg/kg/min, vasopressin at 0.02 mcg/kg/min. WBCs 16.4, hemoglobin 9.8, hematocrit 29.6, platelets 38. Sodium 138, potassium 3.5, chloride 112, CO2 23, BUN 35, creatinine 1.26, glucose 164. Ionized calcium 4.1. CK 988. AST 154, ALT 36. Cortisol 32. TSH 4.3830. In addition, he removed his NG tube overnight. Today's chest x-ray is unchanged from previous. He remains lethargic and barely responsive to verbal stimulation. 10/11/2024. Patient is seen in the ICU. He underwent arthroscopic lavage of the right knee yesterday evening and returned to the ICU intubated on mechanical ventilation. He is currently on assist-control mode with rate 18, tidal volume 450, FiO2 70%, PEEP 5. ABG shows pH 7.34, pCO2 37, pO2 95. He is maintained on vasopressin 0.02 units/min, Levophed 0.14 mcg/kg/min, normal saline at 100 cc/h, and Kefzol day 4. WBCs 18.1, hemoglobin 8.8, hematocrit 27.6, platelets 52, sodium 140, potassium 3.9, chloride 115, CO2 17, BUN 35, creatinine 1.08, glucose 191, creatinine kinase 215. Calcium 6.5. Magnesium 1.6. He began IV hydrocortisone 50 mg every 6 hours yesterday. Liver ultrasound performed yesterday revealed no acute process. Chest x-ray today is unchanged from previous. 10/12/2024. Patient is evaluated in the ICU. He remains intubated on mechanical ventilation on assist-control mode with rate 18, tidal volume 450, Fi O2 50%, PEEP 5. ABG shows pH 7.42, pCO2 38, pO2 74. His RSBI yesterday was 110 and he was unable to follow commands so he could not be extubated. He is maintained on vasopressin 0.02 units/min, normal saline at 20 cc/h, IV hydrocortisone 50 mg every 6 hours, and Kefzol day 5. WBCs 17.4, hemoglobin 8.2, hematocrit 25.2, platelets 53, sodium 142, potassium 3.7, chloride 116, CO2 23, BUN 39, creatinine 1.18, glucose 258. Ionized calcium 4.4. Magnesium 1.8. Today's chest x-ray is unchanged. Wound culture gram stain of the right knee preliminary report shows rare gram positive cocci. Progress note dated October 13, 2024. 64-year-old male seen in the intensive care unit, room 252. The patient remains on the mechanical ventilator. He is on volume assist-control, rate 18, tidal volume 450, FiO2 50%, PEEP of 5. Blood gases show pO2 72, pCO2 41, and pH is 7.42. The patient is on propofol at 35 mcg/kg/min, saline at 20 cc an hour, and vital high-protein at 60, with goal of 70. Yesterday, he had a brief spontaneous breathing trial, and he did poorly. Today he will again have a s pontaneous breathing trial, of pressure support of 5 and CPAP of 5. He continues on Ancef. White count 18.8, hemoglobin 8.2, hematocrit 25.8, platelet count 78,000. Sodium 144, potassium 4.1, chlorides 117, CO2 26, BUN 47, creatinine 1.18. Glucose is 340. Albumin is 2.1. Previous blood cultures from October 06 show group A streptococci. Chest x-ray shows bibasilar infiltrates. The patient is seen today October 28, 2024 in follow-up in the intensive care unit. He is currently sitting up in bed. Awake. Somewhat slow to respond. He is maintaining good O2 saturation mid 90s on 3 L/min per nasal cannula. He has been afebrile. Hemodynamically stable. Right knee culture was positive for strep A. Previous sputum culture had been positive for enterofactor aerogenes. Follow-up cultures revealed no growth. Pleural fluid cultures revealed no growth. He 2. Potassium 4.9. Bicarb 21. BUN 58. Creatinine 3.68. Glucose 66. He is continued on DuoNeb and elations. Heparin for DVT prophylaxis. Antibiotics in the form of ertapenem. The patient is seen today October 29, 2024 in follow-up on the selective care unit. He was transferred out of the ICU yesterday. He is currently sitting up in bed. Awake and alert. Still somewhat slow to respond. He is maintaining O2 saturations in the 90s on 3 L/min per nasal cannula. He is been afebrile. Hemodynamically stable. He is status post 1 unit of packed red blood cells this admission. Current hemoglobin 8.0. Platelets 332. White count 7.9. Sodium 139. Potassium 4.4. Bicarb 23. BUN 59. Creatinine 4.24. Glucose 78. Urinalysis with moderate bacteria. Culture pending. He remains on ertapenem. Continued on bronchodilators. Remains on IV diuretics. Currently in a negative balance. Heparin for DVT prophylaxis. The patient is seen today October 30, 2024 in follow-up on the selective care unit. He is currently up in a chair at the bedside. Awake and alert in no acute distress. He is maintaining O2 saturations in the 90s on 3 L/min per nasal cannula. No IV fluids. He is continued on antibiotics in the form of ertapenem. Continued on IV diuretics. Heparin for DVT prophylaxis. Urine culture showing yeast species. Pleural fluid cultures revealed no growth. White count 10.4. Hemoglobin 8.0. MCV 106.8. Platelets 374. Sodium 137. Potassium 4.2. Bicarb 20. BUN 62. Creatinine 4.46. Glucose 87. The patient is seen today October 31, 2024 in follow-up on the selective care unit. He is currently sitting up in bed. Awake and alert in no acute distress. He is maintaining O2 saturations in the 90s on 3 L/min per nasal cannula. White count 8.7. Hemoglobin 7.5. Platelets 365. Sodium 138. Potassium 4.2. Bicarb 21. BUN 60. Creatinine 4.87. Glucose 207. He remains on DuoNeb i nhalations. Antibiotics in the form of ertapenem. Currently on fluconazole. Remains on IV diuretics. He is making urine. The patient is seen today November 01, 2024 in follow-up on the selective care unit. He is currently sitting up in a chair. Awake and alert in no acute distress. Maintaining O2 saturations in the 90s on 2 L/min per nasal cannula. Sodium 136. Potassium 4.0. Bicarb 21. BUN 60. Creatinine 4.93. Glucose 114. He is continued on ertapenem. Now initiated on Diflucan. Heparin for DVT prophylaxis. He remains on IV Lasix. Making urine. Creatinine continues to rise. May need renal replacement therapy per nephrology. Progress note dated November 02, 2024. 64-year-old male who is now been in the hospital for 27 days. The patient is seen today in room 384. The patient remains on oxygen, by nasal cannula at 3 L. Saturations are in the low 90s. The patient is laying nearly flat in bed. No distress. Current labs include a white count 5.6, hemoglobin 6.9, hematocrit 21.8, and a platelet count is normal. Sodium 136, potassium 4.6, chlorides 105, CO2 24, BUN 59, creatinine 5.24. Glucose is 166. Calcium is 8.5. Progress note dated November 03, 2024. 64-year-old male seen today in room 384. His overall condition is unchanged. He has not been in the hospital for nearly a month. He is on 2 L of oxygen. No IV fluids. Clinically, he is unchanged. Currently white count is 6.1, hemoglobin 7.5, hematocrit 23.6, platelet count 342,000. Sodium 134, potassium 4.4, chlorides 104, CO2 23, BUN is 59, and creatinine is 5.11. Glucose is 241. Calcium is 8, magnesium is 1.3. On 11/04/2024, the patient is being seen for a follow-up. The patient is awake and alert and communicating. He denies having any respiratory difficulties. In regards to his altered mentation, the patient underwent an MRI of the brain that showed no evidence of any infarct. His mental status is gradually improved and he seems to be back to his baseline. In terms of his respiratory status, he is still on 2 L of oxygen by nasal cannula with a pulse ox of around 90 to 91%. A repeat chest x-ray was done today and it showed smaller lung volumes and generalized hazy appearance in the lung bases probably due to underlying residual pleural effusion. The patient otherwise is maintained on DuoNeb nebulized treatments [id number]. The patient is on Lasix 40 mg IV every 24 hours. The patient remains on IV Invanz. He is on amiodarone 200 mg p.o. twice daily and metoprolol 12.5 mg twice daily for rate control and is also on a prednisone burst taper. He remains on Levemir insulin 20 units twice a day and NovoLog scan scale coverage. He is quite weak and debilitated due to this prolonged hospitalization. On 11/05/2024, the patient remains quite debilitated and weak. No confusion. No altered mentation. No signs of any delirium tremens. The patient is still on oxygen at 3 L with a pulse ox of 94%. Blood work from today shows a white cell count of 9.8 with a hemoglobin 8.3 and a platelet count of 460. BUN is 58 and a creatinine is down to 4.3 and a sodium levels at 134. The patient is being monitored by nephrology. Renal function is improving. Nonoliguric. He is on IV Lasix. He does have some trace edema lower extremities bilaterally. As such, we will continue the current treatment for now and avoid any nephrotoxic agents. The patient is on DuoNeb updrafts, the patient is on prednisone burst taper and currently is on a dose of 30 mg p.o. today. Remains on Levemir insulin 20 units twice a day NovoLog sign scale coverage. He remains on IV Invanz and Diflucan. The chest x-ray done on 11/04/2024 showed smaller lung volumes with generalized haziness possibly presenting some pulm vessel congestion and small pleural effusions. 11/06/2024, the patient is being seen for a follow-up. The patient Is awake and alert and stable. Pulse ox is 95% on 2 L of oxygen by nasal cannula. Producing adequate amount of urine output and the renal function continues to improve. BUN is 57 with a creatinine of 3.9. Sodium levels at 132 and a potassium level is at 4.4. Remains on IV Invanz. Remains on Diflucan. Remains on prednisone burst taper and currently the patient is on a dose of 30 mg p.o. daily. Most recent chest x-ray from 11/04/2024 still showing presence of smaller lung volumes and hazy lower lobe atelectatic changes with small effusions. Nephrology on the case. No need for dialysis at this point in time as long as the patient renal function continues to improve. Very much debilitated and weak. On 11/07/2024, the patient is being seen for a follow-up. The patient is resting comfortably in bed. He is currently on 2 L of oxygen by nasal cannula with a pulse ox of 91%. There is ongoing improvement in renal function and the patient remains on Lasix 40 mg IV every 24 hours. Fluid balance is -1 L over the past 24 hours. Blood work shows a drop in the creatinine down to 3.58 with a BUN of 55. Sodium levels at 134, white cell count is 9.6 with a hemoglobin 9.1. The patient remains on DuoNeb updrafts. The patient remains on Rocephin and Diflucan. Rest of the medication remains unchanged. Chest x-ray from 11/07/2024 shows some blunting of the costophrenic angles with some small layering of the pleural fluid. The primary care team ordered an ultrasound and it showed a right-sided pleural effusion with a 10 cm pocket. Noted the patient's pleural fluid was drained during this hospitalization at the earlier stage. Nevertheless, he is responding well to diuretics. On 11/08/2024, the patient is being seen for a follow-up. The patient is calm and comfortable. Renal function continues to improve. He is producing adequate amount of urine output. Remains on Lasix 40 mg IV every 24 hours. The patient's BUN is 53 with a creatinine of 3.1. Electrolytes are all within normal limits. He does have bilateral pleural effusion right more than left and we opted to monitor dose if the patient continues to be diuresing well as he recovers from acute kidney injury. The fluid balance is -2.7 L over the past 24 hours. Remains on IV Rocephin. Remains on Diflucan. Rest of the medications remain unchanged. He is currently on a prednisone burst taper and the dose has been reduced down to 20 mg p.o. daily. Remains profoundly weak specially on the right side. Working with physical therapy. Tolerating his diet. On 11/09/2024, the patient is being seen for a follow-up. Resting comfortably in bed. Renal function continues to improve and the patient remains in negative fluid balance. He is currently on 2 L of oxygen by nasal cannula with a pulse ox of 98%. He remains on IV Lasix. Fluid balance is -2.7 L over the past 24 hours. He did encounter urinary retention and unable to take of the Blake catheter and the Blake catheter was kept in place. No respiratory distress. The white cell count of 9.8 with a hemoglobin 8.2 and a platelet count of 417. BUN is 49 with a creatinine of 2.9 and a sodium levels at 136. Remains on IV Rocephin. Remains on a prednisone burst taper currently on 20 mg. Remains on a combination of metoprolol 12.5 mg twice daily and amiodarone 12 mg p.o. twice a day and the patient is also in normal sinus rhythm. He has oropharyngeal candidiasis and the patient is on Diflucan. Remains on Levemir insulin 20 units twice daily and NovoLog sliding scale coverage. Oral intake is adequate. Remains profoundly weak and debilitated. He was seen by urology regarding his urinary retention. Will keep the Blake catheter in place. Objective - Vital Signs Vital signs: Vital Signs Temp 98.2 F 11/08/24 20:00 Pulse 80 11/09/24 03:33 Resp 16 11/09/24 03:33 BP 119/70 11/09/24 03:33 Pulse Ox 98 11/09/24 03:33 FiO2 4 10/28/24 04:00 Intake & Output 11/08/24 11/09/24 11/09/24 18:59 06:59 18:59 Intake Total 558 540 240 Output Total 1100 900 Balance 558 -560 -660 Weight 91.5 kg Intake: Oral 558 540 240 Output: Urine 1100 900 Other: Voiding Method Indwelling Catheter Indwelling Catheter # Bowel Movements 1 1 ABP, PAP, CO, CI - Last Documented Arterial Blood Pressure 128/42 - Exam No acute distress, currently on 2 L. The patient has a very flat affect. Calm and comfortable, no significant respiratory distress HEENT examination is grossly unremarkable. Mucous membranes are moist. No oral lesions. Neck supple. Full range of motion. No adenopathy thyromegaly or neck vein distention. Cardiovascular examination reveals regular rhythm rate. S1-S2 normal. No S3 or S4. No discernible murmur noted. Lungs reveal scattered bilateral rhonchi. No wheezes. No crackles. Breath sounds are equal bilaterally. Abdomen soft bowel sounds are heard. No masses or tenderness. Extremities are intact. No cyanosis clubbing or edema. Skin is without rash or lesion. Neurologic examination is brief but nonfocal. Generalized global weakness in all 4 extremities and her neurologic exam is nonfocal. - Labs CBC & Chem 7: 11/09/24 07:19 11/09/24 07:19 Labs: Abnormal Lab Results - Last 24 Hours (Table) 11/05/24 11/08/24 11/08/24 Range/Units 23:23 11:23 20:32 RBC (4.30-5.90) m/uL Hgb (13.0-17.5) gm/dL Hct (39.0-53.0) % MCV (80.0-100.0) fL Sodium (137-145) mmol/L BUN (9-20) mg/dL Creatinine (0.66-1.25) mg/dL Glucose (74-99) mg/dL POC Glucose (mg/dL) 215 H 255 H (70-110) mg/dL Calcium (8.4-10.2) mg/dL U Free [place] Ch 43.13 H (0.00-3.29) mg/dL 11/09/24 11/09/24 11/09/24 Range/Units 06:15 07:19 07:19 RBC 2.56 L (4.30-5.90) m/uL Hgb 8.2 L (13.0-17.5) gm/dL Hct 26.5 L (39.0-53.0) % MCV 103.6 H (80.0-100.0) fL Sodium 136 L (137-145) mmol/L BUN 49 H (9-20) mg/dL Creatinine 2.92 H (0.66-1.25) mg/dL Glucose 59 L (74-99) mg/dL POC Glucose (mg/dL) 113 H (70-110) mg/dL Calcium 8.3 L (8.4-10.2) mg/dL [facility] [employer] [place] Ch (0.00-3.29) mg/dL Microbiology - Last 24 Hours (Table) 10/10/24 12:04 Fungal Culture - Final Knee - Right Assessment and Plan Plan: Acute hypoxic respiratory failure, the patient has been intubated on 10/10/2024 following his knee surgery and the patient remains intubated on the mechanical ventilator, chest x-ray is unchanged and the patient continues to have atelectatic changes and small infiltrates in the lung base bilaterally. The patient was extubated on 10/15/2024 and subsequently reintubated on 10/18/2024 for an extensive left lung pneumonia with mucous plugs. Bronchoscopy was done on 10/18/2024 and 10/19/2024 with removal of extensive mucous plugs from the left mainstem bronchus and the left lower lobe. The preliminary sputum culture is positive for Enterobacter aerogenes. The patient was extubated on 10/22/2024. The patient remains on IV Invanz. Chest x-ray from 11/04/2024 shows small bilateral pleural effusion and pulm vessel congestion. Repeat chest x-ray on 11/07/2024 shows a bilateral pleural effusion slightly worse on the right with an ultrasound showing a 10 cm pocket on the right. The patient continues to diurese well with Lasix. Will monitor the pleural effusions. No need to repeat a thoracentesis at this point in time. The patient remains on 2 L of oxygen by nasal cannula. Acute kidney injury, nonoliguric and acute renal function is improving, the pa tient is producing adequate amount of urine output, negative fluid balance Bilateral pleural effusions, see above Encephalopathy, multifactorial. The patient had delirium tremens and subsequently patient was treated for septic shock. The patient's encephalopathy is improved and the patient is awake and alert and communicating. MRI of the brain was negative for an acute stroke Right-sided pleural effusion status postthoracentesis with removal of 400 cc of pleural fluid earlier during this current hospitalization Septic shock, recovered Septic arthritis of the right knee secondary to strep group A , status post arthroscopy, with arthroscopic lavage and debridement of the right knee, partial medial meniscectomy and medial femoral condyle and medial tibial plateau chondroplasty. Back pain. MRI of the cervical spine showed disc bulge centrally and left parasternally at the level of T2-3 and moderate anterior thecal sac compression without cord deformity. The patient also has broad-based disc bulge at the level of C6/T1 and to lesser degrees T1-T2 and C6/C7 Chronic alcohol abuse, with acute alcohol withdrawal syndrome, recovered Status post fall, with rhabdomyolysis, secondary to immobility, recovered Chronic anemia History of coronary artery disease, with previous catheterization and stent placement. CHF with mild impairment LV function with an ejection fraction of 45% Paroxysmal atrial fibrillation, current rhythm is sinus, maintained on a combination of amiodarone and metoprolol. No anticoagulants for now Diabetes mellitus type I Gastroesophageal reflux disease. Hyperlipidemia. Hypertension. History of myocardial infarction. History of osteoarthritis. Urinary retention, unable to take of the Blake catheter and urology evaluated the patient. Plan: Patient is currently on 2L of oxygen by nasal cannula Encouraged use of incentive spirometer Continue IV Lasix 40 mg every 24 hours, nephrology on the case Keep the Blake catheter in place Patient is responding well to diuretics and renal function continues to improve. Patient remains negative fluid balance. Will monitor renal function. Will monitor pleural effusions. No need for thoracentesis. No need for immediate thoracentesis as the patient respiratory status is stable and the patient responding to diuretics. May consider thoracentesis should there be any respiratory decompensation. Noted this right-sided pleural fluid was drained earlier during this current hospitalization. Monitor creatinine Continue combination of amiodarone and metoprolol Chest x-ray from 11/04/2024 was noted and the patient continues to have bilateral lower lobe pleural effusions Continue IV Rocephin and Diflucan Change Levemir insulin 20 units twice daily with Scale insulin coverage and watch for any signs of hypoglycemia Monitor fluid balance PT evaluation and increase mobility Will continue to follow.
[2024-11-09 16:12] LABS: Glucose,Whole Blood 184 mg/dL (70-110)
--- NOTE | 2024-11-09 17:00 | P.PN ---
Subjective Progress Note Date: 11/09/24 64-year-old male who is being seen in the ICU due to hypovolemic shock and rhabdomyolysis. He is a poor historian due to altered mental status and unresponsiveness. All history is obtained from the chart. He initially presented to the emergency department after being found facedown on the ground with a contusion to his forehead and abrasions to his knee and left toes. She stated that he had been having nausea and vomiting for a day prior to being found down. He was noted to have diarrhea as well. Patient is a daily drinker and consumes about a fifth per day according to the notes he has not drank for the 2 days prior to this admission. He also has a history of type 1 diabetes mellitus. Initial EKG showed sinus tachycardia. Head/cervical spine CT showed no acute intracranial process and no acute fracture or traumatic subluxation of the cervical spine. Initial chest x-ray showed right middle lobe scarring/atelectasis, no acute pulmonary process. He had received 4 L of normal saline. Initial labs showed CK level of 18,113, WBCs 10.7, hemoglobin 12.5, sodium 126, creatinine 3.18 lactic acid 6.9, AST 401, ALT 65. Preliminary blood culture showed gram-positive cocci and patient was started on vancomycin. 24-hour interval change 10/12/2024 -- Patient is evaluated in the ICU. He remains intubated on mechanical ventilation - ABG shows pH 7.42, pCO2 38, pO2 74. - He is maintained on vasopressin 0.02 units/min, normal saline at 20 cc/h, IV hydrocortisone 50 mg every 6 hours, and Kefzol day 5. Labs are reviewed WBCs 17.4, hemoglobin 8.2, hematocrit 25.2, platelets 53, sodium 142, potassium 3.7, chloride 116, CO2 23, BUN 39, creatinine 1.18, gluco se 258. Ionized calcium 4.4. Magnesium 1.8. Today's chest x-ray is unchanged. Wound culture gram stain of the right knee preliminary report shows rare gram positive cocci. 10/13/2024 Patient is seen and evaluated in ICU at bedside; remains on the mechanical ventilator. Discussed with nursing staff. Concerns about elevated blood sugars; patient was placed on home dose of Lantus which did not help much - Blood gases show pO2 72, pCO2 41, and pH is 7.42. - The patient is on propofol at 35 mcg/kg/min, saline at 20 cc an hour, and vital high-protein at 60, with goal of 70. Yesterday, he had a brief spontaneous breathing trial, and he did poorly. Today he will again have a spontaneous breathing trial, of pressure support of 5 and CPAP of 5. He continues on Ancef. White count 18.8, hemoglobin 8.2, hematocrit 25.8, platelet count 78,000. Sodium 144, potassium 4.1, chlorides 117, CO2 26, BUN 47, creatinine 1.18. Glucose is 340. Albumin is 2.1. Previous blood cultures from October 06 show group A streptococci. Chest x-ray shows bibasilar infiltrates. -- For hyperglycemia I will increase dose of Lantus and add insulin lispro every 4 hours; continue with current sliding scale 11/09/2024 -- patient is seen and evaluated for a follow-up. Resting comfortably in bed. Renal function continues to improve and the patient remains in negative fluid balance. He is currently on 2 L of oxygen by nasal cannula with a pulse ox of 98%. He remains on IV Lasix. Fluid balance is -2.7 L over the past 24 hours. He did encounter urinary retention and unable to take of the Blake catheter and the Blake catheter was kept in place. No respiratory distress. The white cell count of 9.8 with a hemoglobin 8.2 and a platelet count of 417. BUN is 49 with a creatinine of 2.9 and a sodium levels at 136. Remains on IV Rocephin. Nighat ins on a prednisone burst taper currently on 20 mg. Remains on a combination of metoprolol 12.5 mg twice daily and amiodarone 12 mg p.o. twice a day and the patient is also in normal sinus rhythm. He has oropharyngeal candidiasis and the patient is on Diflucan. Remains on Levemir insulin 20 units twice daily and NovoLog sliding scale coverage. Oral intake is adequate. Remains profoundly weak and debilitated. He was seen by urology regarding his urinary retention. Will keep the Blake catheter in place. Objective - Vital Signs Vital signs: Vital Signs Temp 98.2 F 11/08/24 20:00 Pulse 80 11/09/24 03:33 Resp 16 11/09/24 03:33 BP 119/70 11/09/24 03:33 Pulse Ox 98 11/09/24 03:33 FiO2 4 10/28/24 04:00 Intake & Output 11/08/24 11/09/24 11/09/24 18:59 06:59 18:59 Intake Total 558 540 240 Output Total 1100 900 Balance 558 -560 -660 Weight 91.5 kg Intake: Oral 558 540 240 Output: Urine 1100 900 Other: Voiding Method Indwelling Catheter Indwelling Catheter # Bowel Movements 1 1 ABP, PAP, CO, CI - Last Documented Arterial Blood Pressure 128/42 - Exam General: Patient is awake and alert and responsive; in no acute distress HEENT: Head exam is unremarkable. EOMI bilaterally. ACs patent. Nares patent. Lungs: Mechanical bilateral breath sounds present; no rhonchi, wheezes, or rales. Heart: Rate and rhythm are regular. S1-S2 present. No murmur/rub/gallops. Abdomen: Soft, nontender, nondistended. Bowel sounds present. Extremities: 1+ edema present in all extremities. Neuro: Unable to assess due to intubation/sedation. - Labs CBC & Chem 7: 11/09/24 07:19 11/09/24 07:19 Labs: Abnormal Lab Results - Last 24 Hours (Table) 11/08/24 11/09/24 11/09/24 Range/Units 20:32 06:15 07:19 RBC 2.56 L (4.30-5.90) m/uL Hgb 8.2 L (13.0-17.5) gm/dL Hct 26.5 L (39.0-53.0) % MCV 103.6 H (80.0-100.0) fL Sodium (137-145) mmol/L BUN (9-20) mg/dL Creatinine (0.66-1.25) mg/dL Glucose (74-99) mg/dL POC Glucose (mg/dL) 255 H 113 H (70-110) mg/dL Calcium (8.4-10.2) mg/dL 11/09/24 11/09/24 Range/Units 07:19 11:14 RBC (4.30-5.90) m/uL Hgb (13.0-17.5) gm/dL Hct (39.0-53.0) % MCV (80.0-100.0) fL Sodium 136 L (137-145) mmol/L BUN 49 H (9-20) mg/dL Creatinine 2.92 H (0.66-1.25) mg/dL Glucose 59 L (74-99) mg/dL POC Glucose (mg/dL) 132 H (70-110) mg/dL Calcium 8.3 L (8.4-10.2) mg/dL Microbiology - Last 24 Hours (Table) 10/10/24 12:04 Fungal Culture - Final Knee - Right Assessment and Plan Assessment: 1. Chronic alcohol abuse with acute alcohol withdrawal syndrome; CIWA protocol in place; patient remains on thiamine and Protonix. 2. Rhabdomyolysis secondary to immobility due to fall. Improving with IV hydration. We will continue to monitor strict STERLING's, daily weights, renal function electrolytes 3. Acute kidney injury secondary to ATN due to to septic shock and rhabdomyolysis. Improving; monitor renal function electrolytes; avoid nephrotoxins and hypotension. 4. Relative adrenal insufficiency. On IV hydrocortisone. 5. Transaminitis. Improving. 6. Streptococcus group A bacteremia. Currently on cefazolin per ID recommendation; continue to monitor CBC, CRP and procalcitonin. 7. Hyponatremia, likely hypovolemic; resolved. 8. Type 1 diabetes mellitus; we will continue to monitor Accu-Cheks before every meal and at bedtime with insulin sliding scale. 9. History of coronary artery disease with previous catheterization and stent placement. 10. Hypertension; currently not on any antihypertensive medication.
[2024-11-10 03:39] LABS: Basophils % (A) 0 %; Eosinophils % (A) 0 %; HCT 25.2 % (39.0-53.0); Hypochromasia Slight; Lymphocytes # (A) 1.3 k/uL (1.0-4.8); Lymphocytes % (A) 15 %; MCH 32.7 pg (25.0-35.0); MCHC 31.7 g/dL (31.0-37.0); Macrocytosis Slight; Mean Platelet Volume 7.2; Monocytes # (A) 0.7 k/uL (0-1.0); Monocytes % (A) 7 %; Neutrophils # (A) 6.9 k/uL (1.3-7.7); Neutrophils % (A) 76 %; Platelet Count 376 k/uL (150-450); RBC 2.45 m/uL (4.30-5.90); RDW 15.2 % (11.5-15.5)
[2024-11-10 03:47] LABS: African American GFR (CKD) 29 (>60 ml/min/1.73 sqM); Anion Gap 2 mmol/L; Blood Urea Nitrogen 44 mg/dL (9-20); Carbon Dioxide 27 mmol/L (22-30); Chloride 104 mmol/L (98-107); Glucose 150 mg/dL (74-99); Non-African American GFR(CKD) 25 (>60 ml/min/1.73 sqM); Potassium 4.2 mmol/L (3.5-5.1); Sodium 133 mmol/L (137-145)
[2024-11-10 07:22] LABS: Glucose,Whole Blood 127 mg/dL (70-110)
--- NOTE | 2024-11-10 10:02 | P.PN ---
Subjective Patient is seen in follow-up for acute kidney injury. Renal function improving. Nonoliguric. On IV Lasix. Oral intake is good. Hemodynamically stable. Blake catheter had to be reinserted due to persistent urinary retention. Vital signs are stable. General: No acute distress. HEENT: On nasal cannula. LUNGS: No audible rhonchi or wheezes. HEART: Rate and Rhythm are regular. ABDOMEN: No distention. EXTREMITITES: 2+ edema. Objective - Vital Signs Vital signs: Vital Signs Temp 98.1 F 11/10/24 07:20 Pulse 80 11/10/24 07:59 Resp 17 11/10/24 07:20 BP 127/68 11/10/24 07:20 Pulse Ox 97 11/10/24 07:20 FiO2 4 10/28/24 04:00 Intake & Output 11/09/24 11/10/24 11/10/24 18:59 06:59 18:59 Intake Total 790 960 480 Output Total 1700 1350 1 Balance -910 -390 479 Weight 87 kg Intake: Oral 790 960 480 Output: Urine 1700 1350 Stool 1 Other: Voiding Method Indwelling Catheter Indwelling Catheter Indwelling Catheter # Voids 0 # Bowel Movements 1 0 ABP, PAP, CO, CI - Last Documented Arterial Blood Pressure 128/42 - Labs CBC & Chem 7: 11/10/24 03:14 11/10/24 03:14 Labs: Abnormal Lab Results - Last 24 Hours (Table) 11/09/24 11/09/24 11/10/24 Range/Units 11:14 16:11 03:14 RBC 2.45 L (4.30-5.90) m/uL Hgb 8.0 L (13.0-17.5) gm/dL Hct 25.2 L (39.0-53.0) % MCV 103.0 H (80.0-100.0) fL Sodium (137-145) mmol/L BUN (9-20) mg/dL Creatinine (0.66-1.25) mg/dL Glucose (74-99) mg/dL POC Glucose (mg/dL) 132 H 184 H (70-110) mg/dL Calcium (8.4-10.2) mg/dL 11/10/24 11/10/24 Range/Units 03:14 07:20 RBC (4.30-5.90) m/uL Hgb (13.0-17.5) gm/dL Hct (39.0-53.0) % MCV (80.0-100.0) fL Sodium 133 L (137-145) mmol/L BUN 44 H (9-20) mg/dL Creatinine 2.61 H (0.66-1.25) mg/dL Glucose 150 H (74-99) mg/dL POC Glucose (mg/dL) 127 H (70-110) mg/dL Calcium 8.0 L (8.4-10.2) mg/dL Assessment and Plan Plan: Assessment: 1. Acute kidney injury secondary to ATN secondary to septic shock and rhabdomyolysis. Creatinine 3.18 on admission and improved to 0.89 dated October 16, 2024 -worsened with diuresis. Also concern for interstitial nephritis with urine eosinophils at 7. Started on prednisone November 01, 2024. Serologies negative except for positive serum immunofixation. Being followed by oncology. No hydronephrosis noted on kidney ultrasound. Creatinine peaked at 5.24 this admission and is 2.6 today. 2. Rhabdomyolysis secondary to immobility. Resolved. 3. Strep bacteremia on antibiotics. Being treated for pneumonia. Status post bronchoscopy October 18, 2024. ID following. 4. Anion gap metabolic acidosis secondary to acute kidney injury. On oral bicarb. Better. 5. Hypernatremia from lack of oral water intake. Status post D5W. Resolved. 6. Hypomagnesemia from poor intake and diuresis. On oral magnesium oxide. Received IV magnesium yesterday. 7. History of alcohol abuse. 8. Hypocalcemia secondary to acute kidney injury as well as intracellular shifting from bicarb. PTH 112. Vitamin D level 26.5. On vitamin D. Corrected calcium in the normal range. 9. A-fib with RVR maintained on amiodarone and Lopressor. 10. Volume overload. On IV Lasix. 11. Acute blood loss anemia status post blood transfusion this admission. Receiving IV iron. Plan: Maintain IV Lasix. Will give additional 20 mg IV dose this afternoon. Stop bicarb. Maintain prednisone. Decreased dose to 20 mg November 08, 2024. This will be further tapered over the next few weeks. Avoid nephrotoxins. Continue to monitor renal function and urine output. Will need kidney biopsy if no improvement in renal function over the next 1 to 2 weeks. Case discussed with oncology. Potential discharge to rehab. Repeat BMP and magnesium level 2 to 3 days postdischarge. Follow-up outpatient 1 week postdischarge. Will repeat UA and quantify proteinuria outpatient.
[2024-11-10] MEDS: SODIUM BICARBONATE TAB 650 MG TAB PO SCH (11:19)
[2024-11-10 12:11] LABS: Glucose,Whole Blood 207 mg/dL (70-110)
--- NOTE | 2024-11-10 13:06 | P.PN ---
Subjective Progress Note Date: 11/10/24 Patient is a 64-year-old male who is being seen in the ICU due to hypovolemic shock and rhabdomyolysis. He is a poor historian due to altered mental status and unresponsiveness. All history is obtained from the chart. He initially presented to the emergency department after being found facedown on the ground with a contusion to his forehead and abrasions to his knee and left toes. She stated that he had been having nausea and vomiting for a day prior to being found down. He was noted to have diarrhea as well. Patient is a daily drinker and consumes about a fifth per day according to the notes he has not drank for the 2 days prior to this admission. He also has a history of type 1 diabetes mellitus. Initial EKG showed sinus tachycardia. Head/cervical spine CT showed no acute intracranial process and no acute fracture or traumatic subluxation of the cervical spine. Initial chest x-ray showed right middle lobe scarring/atelectasis, no acute pulmonary process. He had received 4 L of normal saline. Initial labs showed CK level of 18,113, WBCs 10.7, hemoglobin 12.5, sodium 126, creatinine 3.18 lactic acid 6.9, AST 401, ALT 65. Preliminary blood culture showed gram-positive cocci and patient was started on vancomycin. 10/07/2024. He is maintained on a bicarb drip as well as normal saline. He remains unresponsive to verbal stimulation. He is maintained on CIWA protocol. Labs today: WBCs 5.1, hemoglobin 11.6, sodium 126, potassium 3.8, BUN 53, creatinine 3.12, ammonia <9. Progress note dated October 08, 2024. 64-year-old male seen in room 252. I was notified by the nurse at nighttime, that the patient's blood pressure continued to drop. We bumped up his dose of n orepinephrine, and gave him a liter of fluid. In addition, his respiratory status was marginal, and the blood gas was ordered. The patient is currently on 6 L of oxygen. The patient was admitted on October 06. He is getting saline at 150 cc an hour, and Precedex at 0.4 mcg/kg/h. His norepinephrine is running at 31 mcg/min. There is staphylococci in his blood. I have asked the nurses to add Ativan Dilaudid and Haldol to his regimen, to try to wean him off the dexmedetomidine. White count of 9.1, hemoglobin hematocrit 29, platelet count 88,000. Sodium 131, potassium 3, chloride 92, CO2 32, BUN 50, creatinine 2.34. Glucose is 167. Calcium is 6.3. CK was 8796. AST is 507. ALT is 136. Albumin is 2.2. Blood cultures from the were positive for Streptococcus group A. Chest x-ray shows bilateral effusions, small, with low lung volumes. 10/09/2024. Patient seen as a followup. No acute events overnight. He is currently on 6 L of oxygen. He was on dextrose 5% - 0.9% NaCl, blood sugars have been in the mid to high 200s. He is receiving Kefzol for streptococcal group A bacteremia. Precedex has been turned off. Levophed is 0.3 mcg/kg/min. WBCs 12.3, hemoglobin 9.7, hematocrit 27.7, platelets 48. Sodium 133, potassium 3.7, chloride 105, CO2 19, BUN 42, creatinine 1.62. Glucose 267. Calcium 6.4. CK 3888. AST 323, ALT 78. Albumin 2.2. Today's chest x-ray showed cardiomegaly, pulmonary vascular congestion, and bilateral pleural effusions. 10/10/2024. Patient is being seen as a followup in the ICU. Overnight he went into A-fib with rapid ventricular rate, was started on an amiodarone drip at 1mg/min, and converted back to normal sinus rhythm. His pressures remain in the 100s/40s and pulses are He is currently on 15 L high flow oxygen. He is on no rmal saline at 150 cc/h. He is maintained on Kefzol for streptococcal group A bactermia, today is day 3. Levophed is at 0.11 mcg/kg/min, vasopressin at 0.02 mcg/kg/min. WBCs 16.4, hemoglobin 9.8, hematocrit 29.6, platelets 38. Sodium 138, potassium 3.5, chloride 112, CO2 23, BUN 35, creatinine 1.26, glucose 164. Ionized calcium 4.1. CK 988. AST 154, ALT 36. Cortisol 32. TSH 4.3830. In addition, he removed his NG tube overnight. Today's chest x-ray is unchanged from previous. He remains lethargic and barely responsive to verbal stimulation. 10/11/2024. Patient is seen in the ICU. He underwent arthroscopic lavage of the right knee yesterday evening and returned to the ICU intubated on mechanical ventilation. He is currently on assist-control mode with rate 18, tidal volume 450, FiO2 70%, PEEP 5. ABG shows pH 7.34, pCO2 37, pO2 95. He is maintained on vasopressin 0.02 units/min, Levophed 0.14 mcg/kg/min, normal saline at 100 cc/h, and Kefzol day 4. WBCs 18.1, hemoglobin 8.8, hematocrit 27.6, platelets 52, sodium 140, potassium 3.9, chloride 115, CO2 17, BUN 35, creatinine 1.08, glucose 191, creatinine kinase 215. Calcium 6.5. Magnesium 1.6. He began IV hydrocortisone 50 mg every 6 hours yesterday. Liver ultrasound performed yesterday revealed no acute process. Chest x-ray today is unchanged from previous. 10/12/2024. Patient is evaluated in the ICU. He remains intubated on mechanical ventilation on assist-control mode with rate 18, tidal volume 450, Fi O2 50%, PEEP 5. ABG shows pH 7.42, pCO2 38, pO2 74. His RSBI yesterday was 110 and he was unable to follow commands so he could not be extubated. He is maintained on vasopressin 0.02 units/min, normal saline at 20 cc/h, IV hydrocortisone 50 mg every 6 hours, and Kefzol day 5. WBCs 17.4, hemoglobin 8.2, hematocrit 25.2, platelets 53, sodium 142, potassium 3.7, chloride 116, CO2 23, BUN 39, creatinine 1.18, glucose 258. Ionized calcium 4.4. Magnesium 1.8. Today's chest x-ray is unchanged. Wound culture gram stain of the right knee preliminary report shows rare gram positive cocci. Progress note dated October 13, 2024. 64-year-old male seen in the intensive care unit, room 252. The patient remains on the mechanical ventilator. He is on volume assist-control, rate 18, tidal volume 450, FiO2 50%, PEEP of 5. Blood gases show pO2 72, pCO2 41, and pH is 7.42. The patient is on propofol at 35 mcg/kg/min, saline at 20 cc an hour, and vital high-protein at 60, with goal of 70. Yesterday, he had a brief spontaneous breathing trial, and he did poorly. Today he will again have a s pontaneous breathing trial, of pressure support of 5 and CPAP of 5. He continues on Ancef. White count 18.8, hemoglobin 8.2, hematocrit 25.8, platelet count 78,000. Sodium 144, potassium 4.1, chlorides 117, CO2 26, BUN 47, creatinine 1.18. Glucose is 340. Albumin is 2.1. Previous blood cultures from October 06 show group A streptococci. Chest x-ray shows bibasilar infiltrates. The patient is seen today October 28, 2024 in follow-up in the intensive care unit. He is currently sitting up in bed. Awake. Somewhat slow to respond. He is maintaining good O2 saturation mid 90s on 3 L/min per nasal cannula. He has been afebrile. Hemodynamically stable. Right knee culture was positive for strep A. Previous sputum culture had been positive for enterofactor aerogenes. Follow-up cultures revealed no growth. Pleural fluid cultures revealed no growth. He 2. Potassium 4.9. Bicarb 21. BUN 58. Creatinine 3.68. Glucose 66. He is continued on DuoNeb and elations. Heparin for DVT prophylaxis. Antibiotics in the form of ertapenem. The patient is seen today October 29, 2024 in follow-up on the selective care unit. He was transferred out of the ICU yesterday. He is currently sitting up in bed. Awake and alert. Still somewhat slow to respond. He is maintaining O2 saturations in the 90s on 3 L/min per nasal cannula. He is been afebrile. Hemodynamically stable. He is status post 1 unit of packed red blood cells this admission. Current hemoglobin 8.0. Platelets 332. White count 7.9. Sodium 139. Potassium 4.4. Bicarb 23. BUN 59. Creatinine 4.24. Glucose 78. Urinalysis with moderate bacteria. Culture pending. He remains on ertapenem. Continued on bronchodilators. Remains on IV diuretics. Currently in a negative balance. Heparin for DVT prophylaxis. The patient is seen today October 30, 2024 in follow-up on the selective care unit. He is currently up in a chair at the bedside. Awake and alert in no acute distress. He is maintaining O2 saturations in the 90s on 3 L/min per nasal cannula. No IV fluids. He is continued on antibiotics in the form of ertapenem. Continued on IV diuretics. Heparin for DVT prophylaxis. Urine culture showing yeast species. Pleural fluid cultures revealed no growth. White count 10.4. Hemoglobin 8.0. MCV 106.8. Platelets 374. Sodium 137. Potassium 4.2. Bicarb 20. BUN 62. Creatinine 4.46. Glucose 87. The patient is seen today October 31, 2024 in follow-up on the selective care unit. He is currently sitting up in bed. Awake and alert in no acute distress. He is maintaining O2 saturations in the 90s on 3 L/min per nasal cannula. White count 8.7. Hemoglobin 7.5. Platelets 365. Sodium 138. Potassium 4.2. Bicarb 21. BUN 60. Creatinine 4.87. Glucose 207. He remains on DuoNeb i nhalations. Antibiotics in the form of ertapenem. Currently on fluconazole. Remains on IV diuretics. He is making urine. The patient is seen today November 01, 2024 in follow-up on the selective care unit. He is currently sitting up in a chair. Awake and alert in no acute distress. Maintaining O2 saturations in the 90s on 2 L/min per nasal cannula. Sodium 136. Potassium 4.0. Bicarb 21. BUN 60. Creatinine 4.93. Glucose 114. He is continued on ertapenem. Now initiated on Diflucan. Heparin for DVT prophylaxis. He remains on IV Lasix. Making urine. Creatinine continues to rise. May need renal replacement therapy per nephrology. Progress note dated November 02, 2024. 64-year-old male who is now been in the hospital for 27 days. The patient is seen today in room 384. The patient remains on oxygen, by nasal cannula at 3 L. Saturations are in the low 90s. The patient is laying nearly flat in bed. No distress. Current labs include a white count 5.6, hemoglobin 6.9, hematocrit 21.8, and a platelet count is normal. Sodium 136, potassium 4.6, chlorides 105, CO2 24, BUN 59, creatinine 5.24. Glucose is 166. Calcium is 8.5. Progress note dated November 03, 2024. 64-year-old male seen today in room 384. His overall condition is unchanged. He has not been in the hospital for nearly a month. He is on 2 L of oxygen. No IV fluids. Clinically, he is unchanged. Currently white count is 6.1, hemoglobin 7.5, hematocrit 23.6, platelet count 342,000. Sodium 134, potassium 4.4, chlorides 104, CO2 23, BUN is 59, and creatinine is 5.11. Glucose is 241. Calcium is 8, magnesium is 1.3. On 11/04/2024, the patient is being seen for a follow-up. The patient is awake and alert and communicating. He denies having any respiratory difficulties. In regards to his altered mentation, the patient underwent an MRI of the brain that showed no evidence of any infarct. His mental status is gradually improved and he seems to be back to his baseline. In terms of his respiratory status, he is still on 2 L of oxygen by nasal cannula with a pulse ox of around 90 to 91%. A repeat chest x-ray was done today and it showed smaller lung volumes and generalized hazy appearance in the lung bases probably due to underlying residual pleural effusion. The patient otherwise is maintained on DuoNeb nebulized treatments [id number]. The patient is on Lasix 40 mg IV every 24 hours. The patient remains on IV Invanz. He is on amiodarone 200 mg p.o. twice daily and metoprolol 12.5 mg twice daily for rate control and is also on a prednisone burst taper. He remains on Levemir insulin 20 units twice a day and NovoLog scan scale coverage. He is quite weak and debilitated due to this prolonged hospitalization. On 11/05/2024, the patient remains quite debilitated and weak. No confusion. No altered mentation. No signs of any delirium tremens. The patient is still on oxygen at 3 L with a pulse ox of 94%. Blood work from today shows a white cell count of 9.8 with a hemoglobin 8.3 and a platelet count of 460. BUN is 58 and a creatinine is down to 4.3 and a sodium levels at 134. The patient is being monitored by nephrology. Renal function is improving. Nonoliguric. He is on IV Lasix. He does have some trace edema lower extremities bilaterally. As such, we will continue the current treatment for now and avoid any nephrotoxic agents. The patient is on DuoNeb updrafts, the patient is on prednisone burst taper and currently is on a dose of 30 mg p.o. today. Remains on Levemir insulin 20 units twice a day NovoLog sign scale coverage. He remains on IV Invanz and Diflucan. The chest x-ray done on 11/04/2024 showed smaller lung volumes with generalized haziness possibly presenting some pulm vessel congestion and small pleural effusions. 11/06/2024, the patient is being seen for a follow-up. The patient Is awake and alert and stable. Pulse ox is 95% on 2 L of oxygen by nasal cannula. Producing adequate amount of urine output and the renal function continues to improve. BUN is 57 with a creatinine of 3.9. Sodium levels at 132 and a potassium level is at 4.4. Remains on IV Invanz. Remains on Diflucan. Remains on prednisone burst taper and currently the patient is on a dose of 30 mg p.o. daily. Most recent chest x-ray from 11/04/2024 still showing presence of smaller lung volumes and hazy lower lobe atelectatic changes with small effusions. Nephrology on the case. No need for dialysis at this point in time as long as the patient renal function continues to improve. Very much debilitated and weak. On 11/07/2024, the patient is being seen for a follow-up. The patient is resting comfortably in bed. He is currently on 2 L of oxygen by nasal cannula with a pulse ox of 91%. There is ongoing improvement in renal function and the patient remains on Lasix 40 mg IV every 24 hours. Fluid balance is -1 L over the past 24 hours. Blood work shows a drop in the creatinine down to 3.58 with a BUN of 55. Sodium levels at 134, white cell count is 9.6 with a hemoglobin 9.1. The patient remains on DuoNeb updrafts. The patient remains on Rocephin and Diflucan. Rest of the medication remains unchanged. Chest x-ray from 11/07/2024 shows some blunting of the costophrenic angles with some small layering of the pleural fluid. The primary care team ordered an ultrasound and it showed a right-sided pleural effusion with a 10 cm pocket. Noted the patient's pleural fluid was drained during this hospitalization at the earlier stage. Nevertheless, he is responding well to diuretics. On 11/08/2024, the patient is being seen for a follow-up. The patient is calm and comfortable. Renal function continues to improve. He is producing adequate amount of urine output. Remains on Lasix 40 mg IV every 24 hours. The patient's BUN is 53 with a creatinine of 3.1. Electrolytes are all within normal limits. He does have bilateral pleural effusion right more than left and we opted to monitor dose if the patient continues to be diuresing well as he recovers from acute kidney injury. The fluid balance is -2.7 L over the past 24 hours. Remains on IV Rocephin. Remains on Diflucan. Rest of the medications remain unchanged. He is currently on a prednisone burst taper and the dose has been reduced down to 20 mg p.o. daily. Remains profoundly weak specially on the right side. Working with physical therapy. Tolerating his diet. On 11/09/2024, the patient is being seen for a follow-up. Resting comfortably in bed. Renal function continues to improve and the patient remains in negative fluid balance. He is currently on 2 L of oxygen by nasal cannula with a pulse ox of 98%. He remains on IV Lasix. Fluid balance is -2.7 L over the past 24 hours. He did encounter urinary retention and unable to take of the Blake catheter and the Blake catheter was kept in place. No respiratory distress. The white cell count of 9.8 with a hemoglobin 8.2 and a platelet count of 417. BUN is 49 with a creatinine of 2.9 and a sodium levels at 136. Remains on IV Rocephin. Remains on a prednisone burst taper currently on 20 mg. Remains on a combination of metoprolol 12.5 mg twice daily and amiodarone 12 mg p.o. twice a day and the patient is also in normal sinus rhythm. He has oropharyngeal candidiasis and the patient is on Diflucan. Remains on Levemir insulin 20 units twice daily and NovoLog sliding scale coverage. Oral intake is adequate. Remains profoundly weak and debilitated. He was seen by urology regarding his urinary retention. Will keep the Blake catheter in place. On 11/10/2024, the patient is stable. Renal function continues to improve and the patient continues to produce excellent urine output and the patient remains on Lasix 40 mg IV every 24 hours. Fluid balance is -1.3 L and the patient has no significant respiratory distress remains on 2 L nasal cannula. He has bila teral pleural effusion which anticipate to improve with diuresis. No fever and hemodynamically stable. Remains on IV Rocephin. Objective - Vital Signs Vital signs: Vital Signs Temp 98.1 F 11/10/24 07:20 Pulse 80 11/10/24 07:59 Resp 17 11/10/24 07:20 BP 127/68 11/10/24 07:20 Pulse Ox 97 11/10/24 07:20 FiO2 4 10/28/24 04:00 Intake & Output 11/09/24 11/10/24 11/10/24 18:59 06:59 18:59 Intake Total 790 960 480 Output Total 1700 1350 1 Balance -910 -390 479 Weight 87 kg Intake: Oral 790 960 480 Output: Urine 1700 1350 Stool 1 Other: Voiding Method Indwelling Catheter Indwelling Catheter Indwelling Catheter # Voids 0 # Bowel Movements 1 0 ABP, PAP, CO, CI - Last Documented Arterial Blood Pressure 128/42 - Exam No acute distress, currently on 2 L. The patient has a very flat affect. Calm and comfortable, no significant respiratory distress HEENT examination is grossly unremarkable. Mucous membranes are moist. No oral lesions. Neck supple. Full range of motion. No adenopathy thyromegaly or neck vein distention. Cardiovascular examination reveals regular rhythm rate. S1-S2 normal. No S3 or S4. No discernible murmur noted. Lungs reveal scattered bilateral rhonchi. No wheezes. No crackles. Breath sounds are equal bilaterally. Abdomen soft bowel sounds are heard. No masses or tenderness. Extremities are intact. No cyanosis clubbing or edema. Skin is without rash or lesion. Neurologic examination is brief but nonfocal. Generalized global weakness in all 4 extremities and her neurologic exam is nonfocal. - Labs CBC & Chem 7: 11/10/24 03:14 11/10/24 03:14 Labs: Abnormal Lab Results - Last 24 Hours (Table) 11/09/24 11/09/24 11/10/24 Range/Units 11:14 16:11 03:14 RBC 2.45 L (4.30-5.90) m/uL Hgb 8.0 L (13.0-17.5) gm/dL Hct 25.2 L (39.0-53.0) % MCV 103.0 H (80.0-100.0) fL Sodium (137-145) mmol/L BUN (9-20) mg/dL Creatinine (0.66-1.25) mg/dL Glucose (74-99) mg/dL POC Glucose (mg/dL) 132 H 184 H (70-110) mg/dL Calcium (8.4-10.2) mg/dL 11/10/24 11/10/24 Range/Units 03:14 07:20 RBC (4.30-5.90) m/uL Hgb (13.0-17.5) gm/dL Hct (39.0-53.0) % MCV (80.0-100.0) fL Sodium 133 L (137-145) mmol/L BUN 44 H (9-20) mg/dL Creatinine 2.61 H (0.66-1.25) mg/dL Glucose 150 H (74-99) mg/dL POC Glucose (mg/dL) 127 H (70-110) mg/dL Calcium 8.0 L (8.4-10.2) mg/dL Assessment and Plan Plan: Acute hypoxic respiratory failure, the patient has been intubated on 10/10/2024 following his knee surgery and the patient remains intubated on the mechanical ventilator, chest x-ray is unchanged and the patient continues to have atelectatic changes and small infiltrates in the lung base bilaterally. The patient was extubated on 10/15/2024 and subsequently reintubated on 10/18/2024 for an extensive left lung pneumonia with mucous plugs. Bronchoscopy was done on 10/18/2024 and 10/19/2024 with removal of extensive mucous plugs from the left mainstem bronchus and the left lower lobe. The preliminary sputum culture is positive for Enterobacter aerogenes. The patient was extubated on 10/22/2024. The patient remains on IV Invanz. Chest x-ray from 11/04/2024 shows small bilateral pleural effusion and pulm vessel congestion. Repeat chest x-ray on 11/07/2024 shows a bilateral pleural effusion slightly worse on the right with an ultrasound showing a 10 cm pocket on the right. The patient continues to diurese well with Lasix. Will monitor the pleural effusions. No need to repeat a thoracentesis at this point in time. The patient remains on 2 L of oxygen by nasal cannula. Acute kidney injury, nonoliguric and acute renal function is improving, the patient is producing adequate amount of urine output, negative fluid balance Bilateral pleural effusions, see above Encephalopathy, multifactorial. The patient had delirium tremens and subsequently patient was treated for septic shock. The patient's encephalopathy is improved and the patient is awake and alert and communicating. MRI of the brain was negative for an acute stroke Right-sided pleural effusion status postthoracentesis with removal of 400 cc of pleural fluid earlier during this current hospitalization Septic shock, recovered Septic arthritis of the right knee secondary to strep group A , status post arthroscopy, with arthroscopic lavage and debridement of the right knee, partial medial meniscectomy and medial femoral condyle and medial tibial plateau chondroplasty. Back pain. MRI of the cervical spine showed disc bulge centrally and left parasternally at the level of T2-3 and moderate anterior thecal sac compression without cord deformity. The patient also has broad-based disc bulge at the level of C6/T1 and to lesser degrees T1-T2 and C6/C7 Chronic alcohol abuse, with acute alcohol withdrawal syndrome, recovered Status post fall, with rhabdomyolysis, secondary to immobility, recovered Chronic anemia History of coronary artery disease, with previous catheterization and stent placement. CHF with mild impairment LV function with an ejection fraction of 45% Paroxysmal atrial fibrillation, current rhythm is sinus, maintained on a combination of amiodarone and metoprolol. No anticoagulants for now Diabetes mellitus type I Gastroesophageal reflux disease. Hyperlipidemia. Hypertension. History of myocardial infarction. History of osteoarthritis. Urinary retention, unable to take of the Blake catheter and urology evaluated the patient. Plan: Patient is currently on 2L of oxygen by nasal cannula Encouraged use of incentive spirometer Continue IV Lasix 40 mg every 24 hours, nephrology on the case Keep the Blake catheter in place Patient is responding well to diuretics and renal function continues to improve. Patient remains negative fluid balance. Will monitor renal function. Will monitor pleural effusions. No need for thoracentesis. No need for immediate thoracentesis as the patient respiratory status is stable and the patient responding to diuretics. May consider thoracentesis should there be any respiratory decompensation. Noted this right-sided pleural fluid was drained earlier during this current hospitalization. Monitor creatinine Continue combination of amiodarone and metoprolol Chest x-ray from 11/04/2024 was noted and the patient continues to have bilateral lower lobe pleural effusions Continue IV Rocephin and Diflucan Change Levemir insulin 20 units twice daily with Scale insulin coverage and watch for any signs of hypoglycemia Monitor fluid balance PT evaluation and increase mobility Will continue to follow.
[2024-11-10 17:08] LABS: Glucose,Whole Blood 237 mg/dL (70-110)
[2024-11-10 17:09] LABS: Glucose,Whole Blood 214 mg/dL (70-110)
--- NOTE | 2024-11-10 17:09 | P.PN ---
Subjective Progress Note Date: 11/10/24 64-year-old male who is being seen in the ICU due to hypovolemic shock and rhabdomyolysis. He is a poor historian due to altered mental status and unresponsiveness. All history is obtained from the chart. He initially presented to the emergency department after being found facedown on the ground with a contusion to his forehead and abrasions to his knee and left toes. She stated that he had been having nausea and vomiting for a day prior to being found down. He was noted to have diarrhea as well. Patient is a daily drinker and consumes about a fifth per day according to the notes he has not drank for the 2 days prior to this admission. He also has a history of type 1 diabetes mellitus. Initial EKG showed sinus tachycardia. Head/cervical spine CT showed no acute intracranial process and no acute fracture or traumatic subluxation of the cervical spine. Initial chest x-ray showed right middle lobe scarring/atelectasis, no acute pulmonary process. He had received 4 L of normal saline. Initial labs showed CK level of 18,113, WBCs 10.7, hemoglobin 12.5, sodium 126, creatinine 3.18 lactic acid 6.9, AST 401, ALT 65. Preliminary blood culture showed gram-positive cocci and patient was started on vancomycin. 24-hour interval change 10/12/2024 -- Patient is evaluated in the ICU. He remains intubated on mechanical ventilation - ABG shows pH 7.42, pCO2 38, pO2 74. - He is maintained on vasopressin 0.02 units/min, normal saline at 20 cc/h, IV hydrocortisone 50 mg every 6 hours, and Kefzol day 5. Labs are reviewed WBCs 17.4, hemoglobin 8.2, hematocrit 25.2, platelets 53, sodium 142, potassium 3.7, chloride 116, CO2 23, BUN 39, creatinine 1.18, gluco se 258. Ionized calcium 4.4. Magnesium 1.8. Today's chest x-ray is unchanged. Wound culture gram stain of the right knee preliminary report shows rare gram positive cocci. 10/13/2024 Patient is seen and evaluated in ICU at bedside; remains on the mechanical ventilator. Discussed with nursing staff. Concerns about elevated blood sugars; patient was placed on home dose of Lantus which did not help much - Blood gases show pO2 72, pCO2 41, and pH is 7.42. - The patient is on propofol at 35 mcg/kg/min, saline at 20 cc an hour, and vital high-protein at 60, with goal of 70. Yesterday, he had a brief spontaneous breathing trial, and he did poorly. Today he will again have a spontaneous breathing trial, of pressure support of 5 and CPAP of 5. He continues on Ancef. White count 18.8, hemoglobin 8.2, hematocrit 25.8, platelet count 78,000. Sodium 144, potassium 4.1, chlorides 117, CO2 26, BUN 47, creatinine 1.18. Glucose is 340. Albumin is 2.1. Previous blood cultures from October 06 show group A streptococci. Chest x-ray shows bibasilar infiltrates. -- For hyperglycemia I will increase dose of Lantus and add insulin lispro every 4 hours; continue with current sliding scale 11/09/2024 -- patient is seen and evaluated for a follow-up. Resting comfortably in bed. Renal function continues to improve and the patient remains in negative fluid balance. He is currently on 2 L of oxygen by nasal cannula with a pulse ox of 98%. He remains on IV Lasix. Fluid balance is -2.7 L over the past 24 hours. He did encounter urinary retention and unable to take of the Blake catheter and the Blake catheter was kept in place. No respiratory distress. The white cell count of 9.8 with a hemoglobin 8.2 and a platelet count of 417. BUN is 49 with a creatinine of 2.9 and a sodium levels at 136. Remains on IV Rocephin. Nighat ins on a prednisone burst taper currently on 20 mg. Remains on a combination of metoprolol 12.5 mg twice daily and amiodarone 12 mg p.o. twice a day and the patient is also in normal sinus rhythm. He has oropharyngeal candidiasis and the patient is on Diflucan. Remains on Levemir insulin 20 units twice daily and NovoLog sliding scale coverage. Oral intake is adequate. Remains profoundly weak and debilitated. He was seen by urology regarding his urinary retention. Will keep the Blake catheter in place. 11/10/2024 ---the patient is stable. Renal function continues to improve and the patient continues to produce excellent urine output and the patient remains on Lasix 40 mg IV every 24 hours. Fluid balance is -1.3 L and the patient has no significant respiratory distress remains on 2 L nasal cannula. He has bilateral pleural effusion which anticipate to improve with diuresis. No fever and hemodynamically stable. Remains on IV Rocephin. Patient is currently on 2L of oxygen by nasal cannula Encouraged use of incentive spirometer Continue IV Lasix 40 mg every 24 hours, nephrology on the case Keep the Blake catheter in place Patient is responding well to diuretics and renal function continues to improve. Objective - Vital Signs Vital signs: Vital Signs Temp 98.1 F 11/10/24 07:20 Pulse 80 11/10/24 07:59 Resp 17 11/10/24 07:20 BP 127/68 11/10/24 07:20 Pulse Ox 97 11/10/24 07:20 FiO2 4 10/28/24 04:00 Intake & Output 11/09/24 11/10/24 11/10/24 18:59 06:59 18:59 Intake Total 790 960 480 Output Total 1700 1350 1 Balance -910 -390 479 Weight 87 kg Intake: Oral 790 960 480 Output: Urine 1700 1350 Stool 1 Other: Voiding Method Indwelling Catheter Indwelling Catheter Indwelling Catheter # Voids 0 # Bowel Movements 1 0 ABP, PAP, CO, CI - Last Documented Arterial Blood Pressure 128/42 - Exam General: Patient is awake and alert and responsive; in no acute distress HEENT: Head exam is unremarkable. EOMI bilaterally. ACs patent. Nares patent. Lungs: Mechanical bilateral breath sounds present; no rhonchi, wheezes, or rales. Heart: Rate and rhythm are regular. S1-S2 present. No murmur/rub/gallops. Abdomen: Soft, nontender, nondistended. Bowel sounds present. Extremities: 1+ edema present in all extremities. Neuro: Unable to assess due to intubation/sedation. - Labs CBC & Chem 7: 11/10/24 03:14 11/10/24 03:14 Labs: Abnormal Lab Results - Last 24 Hours (Table) 11/09/24 11/10/24 11/10/24 Range/Units 16:11 03:14 03:14 RBC 2.45 L (4.30-5.90) m/uL Hgb 8.0 L (13.0-17.5) gm/dL Hct 25.2 L (39.0-53.0) % MCV 103.0 H (80.0-100.0) fL Sodium 133 L (137-145) mmol/L BUN 44 H (9-20) mg/dL Creatinine 2.61 H (0.66-1.25) mg/dL Glucose 150 H (74-99) mg/dL POC Glucose (mg/dL) 184 H (70-110) mg/dL Calcium 8.0 L (8.4-10.2) mg/dL 11/10/24 Range/Units 07:20 RBC (4.30-5.90) m/uL Hgb (13.0-17.5) gm/dL Hct (39.0-53.0) % MCV (80.0-100.0) fL Sodium (137-145) mmol/L BUN (9-20) mg/dL Creatinine (0.66-1.25) mg/dL Glucose (74-99) mg/dL POC Glucose (mg/dL) 127 H (70-110) mg/dL Calcium (8.4-10.2) mg/dL Assessment and Plan Assessment: 1. Chronic alcohol abuse with acute alcohol withdrawal syndrome; [facility] protocol in place; patient remains on thiamine and Protonix. 2. Rhabdomyolysis secondary to immobility due to fall. Improving with IV hydration. We will continue to monitor strict STERLING's, daily weights, renal function electrolytes 3. Acute kidney injury secondary to ATN due to to septic shock and rhabdomyolysis. Improving; monitor renal function electrolytes; avoid nephrotoxins and hypotension. 4. Relative adrenal insufficiency. On IV hydrocortisone. 5. Transaminitis. Improving. 6. Streptococcus group A bacteremia. Currently on cefazolin per ID recommendation; continue to monitor CBC, CRP and procalcitonin. 7. Hyponatremia, likely hypovolemic; resolved. 8. Type 1 diabetes mellitus; we will continue to monitor Accu-Cheks before every meal and at bedtime with insulin sliding scale. 9. History of coronary artery disease with previous catheterization and stent placement. 10. Hypertension; currently not on any antihypertensive medication.
[2024-11-10] MEDS: FUROSEMIDE 10 MG/ML 2 ML VIAL IV ONE (17:52)
[2024-11-10 20:27] LABS: Glucose,Whole Blood 241 mg/dL (70-110)
[2024-11-10] MEDS: ZINC OXIDE PASTE (Z-GUARD) 1 APPLIC TOPICAL PRN (22:11)
[2024-11-11 07:12] LABS: Glucose,Whole Blood 105 mg/dL (70-110)
[2024-11-11 07:44] VITALS: RESP 16
--- NOTE | 2024-11-11 08:23 | P.PN ---
Subjective Progress Note Date: 11/10/24 Principal diagnosis: Reason for follow-up is Streptococcus agalactiae bacteremia Patient is a 64-year-old male past medical history significant for diabetes mellitus hypertension hyperlipidemia [place] osteoarthritis coronary disease patient was brought into the hospital after apparently the patient was found to be facedown on the ground with contusion to his forehead and abrasion to his knee and some bloody toes, patient did have a fever subsequently blood cultures came back positive with Streptococcus agalactiae prompting this consultation. Patient noticed to have swelling of the right knee aspirate was purulent subsequently the patient did have a right knee washout completed by orthopedics on 10/10/2024. On today's evaluation that is 11/10/2024, Patient is afebrile patient is currently on 2 L nasal cannula oxygen and denies having any shortness of breath, the patient denies any chest pain or cough, the patient denies any nausea vomiting did not have any abdominal pain and no diarrhea. Patient white count is 9.0, creatinine is 2.61 Objective - Vital Signs Vital signs: Vital Signs Temp 98.6 F 11/10/24 18:53 Pulse 80 11/10/24 20:03 Resp 18 11/10/24 18:53 BP 143/71 11/10/24 18:53 Pulse Ox 95 11/10/24 18:53 FiO2 4 10/28/24 04:00 Intake & Output 11/10/24 11/10/24 11/11/24 06:59 18:59 06:59 Intake Total 960 2637 Output Total 1350 1701 Balance -390 936 Weight 87 kg Intake: Oral 960 2637 Output: Urine 1350 1700 Stool 1 Other: Voiding Method Indwelling Catheter Indwelling Catheter # Voids 0 # Bowel Movements 0 ABP, PAP, CO, CI - Last Documented Arterial Blood Pressure 128/42 - Exam GENERAL DESCRIPTION: Middle-age male lying in bed in no distress RESPIRATORY SYSTEM: Unlabored breathing , coarse breath sounds bilaterally HEART: S1 S2 regular rate and rhythm , ABDOMEN: Soft , no tenderness EXTREMITIES: Swelling to the lower extremity and right knee but no redness - Labs CBC & Chem 7: 11/10/24 03:14 11/10/24 03:14 Labs: Abnormal Lab Results - Last 24 Hours (Table) 12/21/24 12/22/24 12/22/24 Range/Units 20:01 03:14 03:14 RBC 2.45 L (4.30-5.90) m/uL Hgb 8.0 L (13.0-17.5) gm/dL Hct 25.2 L (39.0-53.0) % MCV 103.0 H (80.0-100.0) fL Sodium 133 L (137-145) mmol/L BUN 44 H (9-20) mg/dL Creatinine 2.61 H (0.66-1.25) mg/dL Glucose 150 H (74-99) mg/dL POC Glucose (mg/dL) 237 H (70-110) mg/dL Calcium 8.0 L (8.4-10.2) mg/dL 11/10/24 11/10/24 11/10/24 Range/Units 07:20 12:11 17:08 RBC (4.30-5.90) m/uL Hgb (13.0-17.5) gm/dL Hct (39.0-53.0) % MCV (80.0-100.0) fL Sodium (137-145) mmol/L BUN (9-20) mg/dL Creatinine (0.66-1.25) mg/dL Glucose (74-99) mg/dL POC Glucose (mg/dL) 127 H 207 H 214 H (70-110) mg/dL Calcium (8.4-10.2) mg/dL 11/10/24 Range/Units 20:24 RBC (4.30-5.90) m/uL Hgb (13.0-17.5) gm/dL Hct (39.0-53.0) % MCV (80.0-100.0) fL Sodium (137-145) mmol/L BUN (9-20) mg/dL Creatinine (0.66-1.25) mg/dL Glucose (74-99) mg/dL POC Glucose (mg/dL) 241 H (70-110) mg/dL Calcium (8.4-10.2) mg/dL Assessment and Plan (1) Sepsis Current Visit: Yes Status: Acute Code(s): A41.9 - SEPSIS, UNSPECIFIED ORGANISM SNOMED Code(s): 32786802 (2) Streptococcal bacteremia Current Visit: Yes Status: Acute Code(s): R78.81 - BACTEREMIA; B95.5 - UNSP STREPTOCOCCUS [facility] Code(s): 657412131314 Plan: 1patient presented to the hospital with sepsis in this patient who did have fever tachycardia elevated white count and now with evidence of streptococcal bacteremia which is usually of skin and soft tissue origin 2-patient noticed to have right knee effusion has been evaluated by orthopedics and is status post aspiration with purulent drainage subsequently did have right knee washout by orthopedic cultures are pending may need further workup including MRI of the spine when stable. Ortho is following the patient closely 3patient right knee fluid culture also came back positive with group A strep 4-patient did have left-sided pneumonia patient required reintubation and also status post bronchoscopy and lavage sputum culture so far negative, initial c ulture growing Enterobacter that is sensitive to cefepime/ertapenem patient subsequently has been successfully extubated, patient has received adequate antibiotic therapy for his underlying pneumonia 5the patient currently being treated Rocephin 2 g daily to cover for his right knee septic arthritis secondary to group A streptococcus, will need a midline for 2-week course of IV antibiotics on discharge Dictation was produced using [employer] dictation software. please excuse any grammatical, word or spelling errors. Time with Patient: Less than 30
--- NOTE | 2024-11-11 08:25 | P.PN ---
Subjective Progress Note Date: 11/08/24 Principal diagnosis: Reason for follow-up is Streptococcus agalactiae bacteremia Patient is a 64-year-old male past medical history significant for diabetes mellitus hypertension hyperlipidemia [place] osteoarthritis coronary disease patient was brought into the hospital after apparently the patient was found to be facedown on the ground with contusion to his forehead and abrasion to his knee and some bloody toes, patient did have a fever subsequently blood cultures came back positive with Streptococcus agalactiae prompting this consultation. Patient noticed to have swelling of the right knee aspirate was purulent subsequently the patient did have a right knee washout completed by orthopedics on 10/10/2024. On today's evaluation that is 11/08/2024, the patient continues to be afebrile, the patient is on 2 L nasal cannula oxygen and breathing comfortably, the Pt denies having any chest pain or cough, the patient denies having any abdominal pain no vomiting or any diarrhea has been reported by the nursing staff. Patient white count is 10,000, creatinine 3.14 Objective - Vital Signs Vital signs: Vital Signs Temp 96.5 F L 11/08/24 11:54 Pulse 65 11/08/24 11:54 Resp 16 11/08/24 11:54 BP 120/70 11/08/24 11:54 Pulse Ox 95 11/08/24 11:54 FiO2 4 10/28/24 04:00 Intake & Output 11/07/24 11/08/24 11/08/24 18:59 06:59 18:59 Intake Total 640 540 200 Output Total 1999 1913 Balance -1360 -1373 200 Weight 53.8 kg 89.5 kg Intake: Intake, IV Titration 100 Amount cefTRIAXone 2 gm In 100 Sodium Chloride 0.9% 50 ml @ 100 mls/hr IVPB Q24HR [facility] Rx#:[id number] Oral 540 540 200 Output: Urine 1999 1340 Post Void Residual 572 Stool 1 Other: Voiding Method Indwelling Catheter Indwelling Catheter Indwelling Catheter # Voids 1 # Bowel Movements 1 200 ABP, PAP, CO, CI - Last Documented Arterial Blood Pressure 128/42 - Exam GENERAL DESCRIPTION: Middle-age male lying in bed in no distress RESPIRATORY SYSTEM: Unlabored breathing , coarse breath sounds bilaterally HEART: S1 S2 regular rate and rhythm , ABDOMEN: Soft , no tenderness EXTREMITIES: Swelling to the lower extremity and right knee but no redness - Labs CBC & Chem 7: 11/10/24 03:14 11/10/24 03:14 Labs: Abnormal Lab Results - Last 24 Hours (Table) 11/05/24 11/07/24 11/07/24 Range/Units 23:23 16:50 20:29 RBC (4.30-5.90) m/uL Hgb (13.0-17.5) gm/dL Hct (39.0-53.0) % MCV (80.0-100.0) fL Sodium (137-145) mmol/L BUN (9-20) mg/dL Creatinine (0.66-1.25) mg/dL POC Glucose (mg/dL) 186 H 313 H (70-110) mg/dL Calcium (8.4-10.2) mg/dL Magnesium (1.6-2.3) mg/dL Creatine Kinase (55-170) U/L Total Protein (6.3-8.2) g/dL Albumin (3.5-5.0) g/dL U Free [place] Ch 43.13 H (0.00-3.29) mg/dL 11/08/24 11/08/24 11/08/24 Range/Units 08:06 08:06 11:23 RBC 2.54 L (4.30-5.90) m/uL Hgb 8.3 L (13.0-17.5) gm/dL Hct 26.3 L (39.0-53.0) % MCV 103.5 H (80.0-100.0) fL Sodium 134 L (137-145) mmol/L BUN 53 H (9-20) mg/dL Creatinine 3.14 H (0.66-1.25) mg/dL POC Glucose (mg/dL) 215 H (70-110) mg/dL Calcium 8.2 L (8.4-10.2) mg/dL Magnesium 1.4 L (1.6-2.3) mg/dL Creatine Kinase 23 L (55-170) U/L Total Protein 6.1 L (6.3-8.2) g/dL Albumin 2.4 L (3.5-5.0) g/dL U Free [place] Ch (0.00-3.29) mg/dL Assessment and Plan (1) Sepsis Current Visit: Yes Status: Acute Code(s): A41.9 - SEPSIS, UNSPECIFIED ORGANISM SNOMED Code(s): 70942270 (2) Streptococcal bacteremia Current Visit: Yes Status: Acute Code(s): R78.81 - BACTEREMIA; B95.5 - UNSP STREPTOCOCCUS THE CAUSE OF DISEASES CLASSD [place] SNOMED Code(s): 974730774711 Plan: 1patient presented to the hospital with sepsis in this patient who did have fever tachycardia elevated white count and now with evidence of streptococcal bacteremia which is usually of skin and soft tissue origin 2-patient noticed to have right knee effusion has been evaluated by orthopedics and is status post aspiration with purulent drainage subsequently did have right knee washout by orthopedic cultures are pending may need further workup including MRI of the spine when stable. Ortho is following the patient closely 3patient right knee fluid culture also came back positive with group A strep 4-patient did have left-sided pneumonia patient required reintubation and also status post bronchoscopy and lavage sputum culture so far negative, initial culture growing Enterobacter that is sensitive to cefepime/ertapenem patient subsequently has been successfully extubated, patient has received adequate antibiotic therapy for his underlying pneumonia 5the patient currently being treated Rocephin 2 g daily to cover for his right knee septic arthritis secondary to group A streptococcus Dictation was produced using [employer] dictation software. please excuse any grammatical, word or spelling errors. Time with Patient: Less than 30
--- NOTE | 2024-11-11 08:26 | P.PN ---
Subjective Progress Note Date: 11/09/24 Principal diagnosis: Reason for follow-up is Streptococcus agalactiae bacteremia Patient is a 64-year-old male past medical history significant for diabetes mellitus hypertension hyperlipidemia [place] osteoarthritis coronary disease patient was brought into the hospital after apparently the patient was found to be facedown on the ground with contusion to his forehead and abrasion to his knee and some bloody toes, patient did have a fever subsequently blood cultures came back positive with Streptococcus agalactiae prompting this consultation. Patient noticed to have swelling of the right knee aspirate was purulent subsequently the patient did have a right knee washout completed by orthopedics on 10/10/2024. On today's evaluation that is 11/09/2024, patient did not have any fever and denies any chills, patient is breathing comfortably on 2 L nasal cannula oxygen, patient with no chest pain or cough patient did not have any abdominal pain nausea vomiting or any loose stools Patient white count is 9.8, creatinine is 2.92 Objective - Vital Signs Vital signs: Vital Signs Temp 98.5 F 11/09/24 12:15 Pulse 75 11/09/24 12:15 Resp 18 11/09/24 12:15 BP 134/72 11/09/24 12:15 Pulse Ox 96 11/09/24 12:15 FiO2 4 10/28/24 04:00 Intake & Output 11/08/24 11/09/24 11/09/24 18:59 06:59 18:59 Intake Total 558 540 480 Output Total 1100 1701 Balance 062 -099 -1221 Weight 91.5 kg Intake: Oral 558 540 480 Output: Urine 1100 1700 Stool 1 Other: Voiding Method Indwelling Catheter Indwelling Catheter Indwelling Catheter # Bowel Movements 1 1 ABP, PAP, CO, CI - Last Documented Arterial Blood Pressure 128/42 - Exam GENERAL DESCRIPTION: Middle-age male lying in bed in no distress RESPIRATORY SYSTEM: Unlabored breathing , coarse breath sounds bilaterally HEART: S1 S2 regular rate and rhythm , ABDOMEN: Soft , no tenderness EXTREMITIES: Swelling to the lower extremity and right knee but no redness - Labs CBC & Chem 7: 11/10/24 03:14 11/10/24 03:14 Labs: Abnormal Lab Results - Last 24 Hours (Table) 11/08/24 11/09/24 11/09/24 Range/Units 20:32 06:15 07:19 RBC 2.56 L (4.30-5.90) m/uL Hgb 8.2 L (13.0-17.5) gm/dL Hct 26.5 L (39.0-53.0) % MCV 103.6 H (80.0-100.0) fL Sodium (137-145) mmol/L BUN (9-20) mg/dL Creatinine (0.66-1.25) mg/dL Glucose (74-99) mg/dL POC Glucose (mg/dL) 255 H 113 H (70-110) mg/dL Calcium (8.4-10.2) mg/dL 11/09/24 11/09/24 Range/Units 07:19 11:14 RBC (4.30-5.90) m/uL Hgb (13.0-17.5) gm/dL Hct (39.0-53.0) % MCV (80.0-100.0) fL Sodium 136 L (137-145) mmol/L BUN 49 H (9-20) mg/dL Creatinine 2.92 H (0.66-1.25) mg/dL Glucose 59 L (74-99) mg/dL POC Glucose (mg/dL) 132 H (70-110) mg/dL Calcium 8.3 L (8.4-10.2) mg/dL Microbiology - Last 24 Hours (Table) 10/10/24 12:04 Fungal Culture - Final Knee - Right Assessment and Plan (1) Sepsis Current Visit: Yes Status: Acute Code(s): A41.9 - SEPSIS, UNSPECIFIED ORGANISM SNOMED Code(s): 07050896 (2) Streptococcal bacteremia Current Visit: Yes Status: Acute Code(s): R78.81 - BACTEREMIA; B95.5 - UNSP STREPTOCOCCUS THE CAUSE OF DISEASES CL[facility]SD [facility] SNOMED Code(s): 369769263631 Plan: 1patient presented to the hospital with sepsis in this patient who did have fever tachycardia elevated white count and now with evidence of streptococcal bacteremia which is usually of skin and soft tissue origin 2-patient noticed to have right knee effusion has been evaluated by orthopedics and is status post aspiration with purulent drainage subsequently did have right knee washout by orthopedic cultures are pending may need further workup including MRI of the spine when stable. Ortho is following the patient closely 3patient right knee fluid culture also came back positive with group A strep 4-patient did have left-sided pneumonia patient required reintubation and also status post bronchoscopy and lavage sputum culture so far negative, initial culture growing Enterobacter that is sensitive to cefepime/ertapenem patient subsequently has been successfully extubated, patient has received adequate antibiotic therapy for his underlying pneumonia 5the patient is afebrile, the patient white count is normal, will treat with Rocephin 2 g daily for his right knee septic arthritis secondary to group A streptococcus Dictation was produced using [employer] software. please excuse any grammatical, word or spelling errors. Time with Patient: Less than 30
[2024-11-11 08:43] LABS: BUN/Creat Ratio 14.84 Ratio (12.00-20.00); Blood Urea Nitrogen 37.1 mg/dL (9.0-27.0); Carbon Dioxide 26.6 mmol/L (21.6-31.8); Chloride 100 mmol/L (96-109); Glucose 118 mg/dL (70-110); Potassium 4.5 mmol/L (3.5-5.5); Sodium 137 mmol/L (135-145)
[2024-11-11 08:44] LABS: Magnesium 1.3 mg/dL (1.5-2.4)
[2024-11-11] MEDS ORDERED: Magnesium Replacement Protocol 1 EACH MISC MISCELLANE PRN (09:57)
--- NOTE | 2024-11-11 10:32 | P.PN ---
Subjective Patient is seen in follow-up for acute kidney injury. Renal function improving. Nonoliguric. On IV Lasix. Oral intake is good. Hemodynamically stable. Blake catheter had to be reinserted due to persistent urinary retention. No active complaints. Vital signs are stable. General: No acute distress. HEENT: On nasal cannula. LUNGS: No audible rhonchi or wheezes. HEART: Rate and Rhythm are regular. ABDOMEN: No distention. EXTREMITITES: 2+ edema. Objective - Vital Signs Vital signs: Vital Signs Temp 98.5 F 11/11/24 07:07 Pulse 82 11/11/24 08:00 Resp 16 11/11/24 07:07 BP 134/72 11/11/24 07:07 Pulse Ox 93 L 11/11/24 07:07 FiO2 4 10/28/24 04:00 Intake & Output 11/10/24 11/11/24 11/11/24 18:59 06:59 18:59 Intake Total 2637 480 354 Output Total 1701 1700 Balance 936 -1220 354 Weight 88.5 kg Intake: Oral 2637 480 354 Output: Urine 1700 1700 Stool 1 Other: Voiding Method Indwelling Catheter Indwelling Catheter # Bowel Movements 1 ABP, PAP, CO, CI - Last Documented Arterial Blood Pressure 128/42 - Labs CBC & Chem 7: 11/10/24 03:14 11/11/24 05:57 Labs: Abnormal Lab Results - Last 24 Hours (Table) 11/09/24 11/10/24 11/10/24 Range/Units 20:01 12:11 17:08 BUN (9.0-27.0) mg/dL Creatinine (0.6-1.5) mg/dL Est GFR (CKD-EPI) (>=60) Glucose (70-110) mg/dL POC Glucose (mg/dL) 237 H 207 H 214 H (70-110) mg/dL Calcium (8.7-10.3) mg/dL Magnesium (1.5-2.4) mg/dL 11/10/24 11/11/24 Range/Units 20:24 05:57 BUN 37.1 H (9.0-27.0) mg/dL Creatinine 2.5 H (0.6-1.5) mg/dL Est GFR (CKD-EPI) 28 L (>=60) Glucose 118 H (70-110) mg/dL POC Glucose (mg/dL) 241 H (70-110) mg/dL Calcium 8.0 L (8.7-10.3) mg/dL Magnesium 1.3 L (1.5-2.4) mg/dL Assessment and Plan Plan: Assessment: 1. Acute kidney injury secondary to ATN secondary to septic shock and rhabdomyolysis. Creatinine 3.18 on admission and improved to 0.89 dated October 16, 2024 -worsened with diuresis. Also concern for interstitial nephritis with urine eosinophils at 7. Started on prednisone November 01, 2024. Serologies negative except for positive serum immunofixation. Being followed by oncology. No hydronephrosis noted on kidney ultrasound. Creatinine peaked at 5.24 this admission and is 2.6 today. 2. Rhabdomyolysis secondary to immobility. Resolved. 3. Strep bacteremia on antibiotics. Being treated for pneumonia. Status post bronchoscopy October 18, 2024. ID following. 4. Anion gap metabolic acidosis secondary to acute kidney injury. On oral bicarb. Better. 5. Hypernatremia from lack of oral water intake. Status post D5W. Resolved. 6. Hypomagnesemia from poor intake and diuresis. On oral magnesium oxide. Received IV magnesium yesterday. 7. History of alcohol abuse. 8. Hypocalcemia secondary to acute kidney injury as well as intracellular shifting from bicarb. PTH 112. Vitamin D level 26.5. On vitamin D. Corrected calcium in the normal range. 9. A-fib with RVR maintained on amiodarone and Lopressor. 10. Volume overload. On IV Lasix. 11. Acute blood loss anemia status post blood transfusion this admission. Status post IV iron. Plan: Maintain IV Lasix. Bicarb discontinued. Replace magnesium. Maintain prednisone. Decreased dose to 20 mg November 08, 2024. This will be further tapered over the next few weeks. Avoid nephrotoxins. Continue to monitor renal function and urine output. Will need kidney biopsy if no improvement in renal function over the next 1 to 2 weeks. Case discussed with oncology. Potential discharge to rehab. Repeat BMP and magnesium level 2 to 3 days postdischarge. Follow-up outpatient 1 week postdischarge. Will repeat UA and quantify proteinuria outpatient.
[2024-11-11] MEDS: MAGNESIUM SULFATE-D5W PMX 1 GM in DEXTROSE/WATER 1 100ML.BAG IVPB SCH (10:47)
[2024-11-11] MEDS: DARBEPOETIN ALFA 40 MCG/0.4 ML SYRINGE SQ SCH (11:46)
[2024-11-11 12:07] LABS: Glucose,Whole Blood 203 mg/dL (70-110)
--- NOTE | 2024-11-11 12:30 | P.PN ---
Subjective Progress Note Date: 11/11/24 Patient is a 64-year-old male who is being seen in the ICU due to hypovolemic shock and rhabdomyolysis. He is a poor historian due to altered mental status and unresponsiveness. All history is obtained from the chart. He initially presented to the emergency department after being found facedown on the ground with a contusion to his forehead and abrasions to his knee and left toes. She stated that he had been having nausea and vomiting for a day prior to being found down. He was noted to have diarrhea as well. Patient is a daily drinker and consumes about a fifth per day according to the notes he has not drank for the 2 days prior to this admission. He also has a history of type 1 diabetes m ellitus. Initial EKG showed sinus tachycardia. Head/cervical spine CT showed no acute intracranial process and no acute fracture or traumatic subluxation of the cervical spine. Initial chest x-ray showed right middle lobe scarring/atelectasis, no acute pulmonary process. He had received 4 L of normal saline. Initial labs showed CK level of 18,113, WBCs 10.7, hemoglobin 12.5, sodium 126, creatinine 3.18 lactic acid 6.9, AST 401, ALT 65. Preliminary blood culture showed gram-positive cocci and patient was started on vancomycin. On 10/20/2024, the patient remains sedated on propofol. Arousable and moving all 4 extremities. He is status post reintubation on 10/18/2024 and is status post bronchoscopy x 2 with evacuation of mucous plugs from his left lower lobe. The patient has Enterobacter erogenous in his sputum and the patient remains on IV cefepime. This morning, he remains on assist-control mode with rate of 14, tidal volume of 500, FiO2 of 50% with a PEEP of 10. Blood gas shows significant improvement oxygenation and the pO2 is up to 153 and a pH is at 7.4 with a pCO2 of 41. The patient remains on low-dose norepinephrine at 0.04 mcg/kg/min. He remains on IV heparin for paroxysmal A-fib. Hemoglobin dropped down to 6.7 and the patient is going to receive a unit of packed RBC. Creatinine is up to 1.5. He remains on vital high-protein at rate of 40 cc an hour. Fluid balance is +1.2 L over the past 24 hours. He is afebrile. Patient was seen today on 10/21/24, patient remains in the ICU, patient is on mechanical ventilation with assist-control rate of 14 tidal volume 500 FiO2 40% and PEEP of 6 ABG showed a pO2 of 27 pCO2 34 pH of 7.47. No changes were made in vent settings. Patient remains on propofol at 40 mcg/kg/min, received a unit of packed RBCs yesterday for low hemoglobin. Remains on vital HP patient is receiving cefepime for Enterobacter around [place] and his sputum. Patient had strep a in the right knee joint patient is covered with cefepime remains on Lasix 40 mg IV push daily his initial presentation to the hospital was when he was found facedown on the ground with a contusion on his forehead and abrasion on his left knee as well as left toes. Patient is known to be a heavy drinker, consumes 1/5/day according to the notes in the chart. Patient is also known to have type 1 diabetes, intubation on 10/10/2024 following his knee surgery patient was extubated on 10/15, however he had to be reintubated on 10/18 bronchoscopy was done for extensive pneumonia involving the left lower lobe and mucous plugs were suctioned. Patient also had another bronchoscopy on 09/22 with improvement in his chest x-ray findings and left lower lobe pneumonia. Sputum cultures have been positive for Enterobacter allergies. Has been on IV cefepime WBC count today 6.3 hemoglobin 7.8 metabolic profile is normal BUN is 42 creatinine 1.67. Chest x-ray continues to show bibasilar airspace disease left lower lobe more so than right lower lobe Patient was eval today and 10/22/2024, patient remains in the ICU, intubated and mechanically ventilated, on assist-control rate of 14 tidal volume 500 FiO2 40% PEEP of 6 ABG showed a pO2 of 93 pCO2 34 pH of 7.50 peak airway pressure is 23 Plateau pressure is 16 continues to have some clear yellow sputum that is easily suctioned will not require bronchoscopy today considering the easily suctioned the mucus secretions. Patient is on propofol at 40 mcg/kg/min vital HP at 40 mL/h IV fluid at KVO patient remains on antibiotics in the form of cefepime, he has Enterococcus in the sputum and he had strep pain from his knee. Leg susi on Lasix 40 mg twice daily chest x-ray is showing slight improvement in his bibasilar pneumonia hence I am not recommending bronchoscopy today I will try to give the patient a trial of weaning if possible. Labs today were reviewed WBC count is 5.8 hemoglobin 7.9 platelets are 306, electrolytes are normal BUN is 43 creatinine 1.85 Patient was seen today on 10/23/2024, remains in the ICU, however the patient was extubated yesterday and so far he seems to be tolerating the extubation well. Patient is on 3 L nasal cannula, he is alert, but extremely slow. And complaining of right upper extremity swelling and pain. Considering the patient had a fall I will recommend x-rays of the right upper extremity and I would recommend ultrasound/venous Doppler of the right upper extremity. Patient continues to have pneumonia based on chest x-ray, left lower lobe is quite concerning patient does not have a very good cough. Hoping he does not require bronchoscopy again. In the meantime he is on cefepime. Patient had worsening of his renal functioning and I discontinued his Lasix today. He is on subcu heparin for DVT prophylax. And I do not believe the patient is quite ready to be discharged out of the ICU yet, I will keep him in the ICU for another day. And follow-up chest x-ray will be done in a.m. His WBC count is 6 hemoglobin 8.2 electrolytes are normal BUN is 46 creatinine 2.19 Seen today on 10/24/2024, patient remains in the ICU, off mechanical ventilation, on2 L nasal cannula with O2 saturation between 94 to 97%. Patient is confused, he is not in any form of respiratory distress.WBC is 5.8 hemoglobin 7.6 electrolytes are normal BUN is 46 creatinine 2.22, slightly improved compared to yesterday after holding his diuretics chest x-ray is showing slight improvement in his pneumonia. However what seems to be quite concerning to me is his mental status patient seems to be confused, and continues to have difficulty moving his right upper extremity workup on the right upper extremity has been negative including x-rays and Doppler. Patient was seen today on 10/25/2024, patient remains in the ICU, mental status is basically about the same, patient remains encephalopathic, continues to have difficulty raising his right upper extremity hence orthopedics was consulted. Chest x-ray continues to show bilateral pneumonia left a bit worse than right, patient is on antibiotics for Enterobacter erogenous noted previously on his sputum. Patient is able to clear his secretions on his own, he does have a vigorous cough, his overall mental status seems to be a bit concerning, neurology was consulted on the patient today yesterday, felt that the patient may have metabolic encephalopathy. In addition to this the patient has some ischemic changes noted in the distal aspect of his left fourth toe and at the base of his big toe, hence I recommended vascular surgery evaluation. He does have good pulses by Doppler on that same foot. Labs today show WBC is 5.4 hemoglobin 7.7 electrolytes are normal BUN is 47 creatinine 2.30 Patient seen today on 10/26/2024, remains in ICU, remains on 4 L nasal cannula mentation is about the same, remains encephalopathic but follows simple instructions, continues to have issues with his right upper extremity patient is on IV fluid at KVO however I increased IV fluid today to 70 cc/h as his renal function seems to be getting a bit worse. And I am recommending that we stop diuretics altogether. Patient remains on cefepime for Enterobacter in his sputum. Chest x-ray continues show bilateral pneumonia minimal improvement noted. But continues to have significant infiltrates specially in the left lower lobe. WBC is 5.3 hemoglobin 7.3 basic metabolic profile is normal BUN is up to 51 creatinine up to 2.66 Patient was seen today on 10/27/2024, remains in the ICU remains on 4 L nasal can nula remains on IV fluid at 75 cc/h his urine output seems to be marginal down to 15/20 cc/h hence I am recommending a low-dose of Lasix 60 mg IV push x 1. Patient is becoming a bit more edematous hoping that he will improve with gentle diuresis. Renal functioning seems to be getting worse over the last few days in spite of holding the Lasix and inspite of hydrating the patient cautiously patient remains on Invanz for his Enterococcus erogenous in the sputum this is being addressed by infectious disease, chest x-ray continues show bilateral infiltrates left more so than right patient also has small bilateral pleural effusions. Lasix was given today and he remains on antibiotics for his un derlying pneumonia. The patient is seen today October 28, 2024 in follow-up in the intensive care [facility]. He is currently sitting up in bed. Awake. Somewhat slow to respond. He is maintaining good O2 saturation mid 90s on 3 L/min per nasal cannula. He has been afebrile. Hemodynamically stable. Right knee culture was positive for strep A. Previous sputum culture had been positive for enterofactor aerogenes. Follow-up cultures revealed no growth. Pleural fluid cultures revealed no growth. He 2. Potassium 4.9. Bicarb 21. BUN 58. Creatinine 3.68. Glucose 66. He is continued on DuoNeb and elations. Heparin for DVT prophylaxis. Antibiotics in the form of ertapenem. The patient is seen today October 29, 2024 in follow-up on the selective care unit. He was transferred out of the ICU yesterday. He is currently sitting up in bed. Awake and alert. Still somewhat slow to respond. He is maintaining O2 saturations in the 90s on 3 L/min per nasal cannula. He is been afebrile. Hemodynamically stable. He is status post 1 unit of packed red blood cells this admission. Current hemoglobin 8.0. Platelets 332. White count 7.9. Sodium 139. Potassium 4.4. Bicarb 23. BUN 59. Creatinine 4.24. Glucose 78. Urinalysis with moderate bacteria. Culture pending. He remains on ertapenem. Continued on bronchodilators. Remains on IV diuretics. Currently in a negative balance. Heparin for DVT prophylaxis. The patient is seen today October 30, 2024 in follow-up on the selective care unit. He is currently up in a chair at the bedside. Awake and alert in no acute distress. He is maintaining O2 saturations in the 90s on 3 L/min per nasal cannula. No IV fluids. He is continued on antibiotics in the form of ertapenem. Continued on IV diuretics. Heparin for DVT prophylaxis. Urine culture showing yeast species. Pleural fluid cultures revealed no growth. Whit e count 10.4. Hemoglobin 8.0. MCV 106.8. Platelets 374. Sodium 137. Potassium 4.2. Bicarb 20. BUN 62. Creatinine 4.46. Glucose 87. The patient is seen today October 31, 2024 in follow-up on the selective care unit. He is currently sitting up in bed. Awake and alert in no acute distress. He is maintaining O2 saturations in the 90s on 3 L/min per nasal cannula. White count 8.7. Hemoglobin 7.5. Platelets 365. Sodium 138. Potassium 4.2. Bicarb 21. BUN 60. Creatinine 4.87. Glucose 207. He remains on DuoNeb inhalations. Antibiotics in the form of ertapenem. Currently on fluconazole. Remains on IV diuretics. He is making urine. The patient is seen today November 01, 2024 in follow-up on the selective care unit. He is currently sitting up in a chair. Awake and alert in no acute distress. Maintaining O2 saturations in the 90s on 2 L/min per nasal cannula. Sodium 136. Potassium 4.0. Bicarb 21. BUN 60. Creatinine 4.93. Glucose 114. He is continued on ertapenem. Now initiated on Diflucan. Heparin for DVT prophylaxis. He remains on IV Lasix. Making urine. Creatinine continues to rise. May need renal replacement therapy per nephrology. The patient is seen today November 11, 2024 in follow-up on the regular medical floor. He is currently sitting up in bed. Awake and alert in no acute distress. He is maintaining O2 saturations in the 90s on 2 L/min per nasal cannula. He denies any worsening shortness of breath, cough or congestion. He is afebrile. Hemodynamically stable. He is status post 2 units of packed red blood cells this admission. Current hemoglobin 8.0. Sodium 137. Potassium 4.5. Bicarb 27. BUN 37. Creatinine 2.5. Glucose 118. He remains on DuoNeb inhalations, prednisone. Remains on fluconazole. Continued on IV diuretics. Continued on ceftriaxone. Heparin for DVT prophylaxis. Objective - Vital Signs Vital signs: Vital Signs Temp 98.5 F 11/11/24 07:07 Pulse 82 11/11/24 08:00 Resp 16 11/11/24 07:07 BP 134/72 11/11/24 07:07 Pulse Ox 93 L 11/11/24 07:07 FiO2 4 10/28/24 04:00 Intake & Output 11/10/24 11/11/24 11/11/24 18:59 06:59 18:59 Intake Total 2637 480 354 Output Total 1701 1700 Balance 936 -1220 354 Weight 88.5 kg Intake: Oral 2637 480 354 Output: Urine 1700 1700 Stool 1 Other: Voiding Method Indwelling Catheter Indwelling Catheter # Bowel Movements 1 ABP, PAP, CO, CI - Last Documented Arterial Blood Pressure 128/42 - Exam GENERAL EXAM: Alert, 64-year-old male, sitting up in bed, on 2 L nasal cannula, in no apparent distress. HEAD: Normocephalic. EYES: Normal reaction of pupils, equal size. NOSE: Clear with pink turbinates. THROAT: No erythema or exudates. NECK: No masses, no JVD. CHEST: No chest wall deformity. LUNGS: Equal air entry with bilateral scattered rhonchi. CVS: S1 and S2 normal with no audible murmur, regular rhythm. ABDOMEN: No hepatosplenomegaly, normal bowel sounds, no guarding or rigidity. SPINE: No scoliosis or deformity SKIN: No rashes CENTRAL NERVOUS SYSTEM: No focal deficits, tone is normal in all 4 extremities. EXTREMITIES: Edema of the right upper extremity. There is no peripheral edema. No clubbing, no cyanosis. Peripheral pulses are intact. - Labs CBC & Chem 7: 11/10/24 03:14 11/11/24 05:57 Labs: Abnormal Lab Results - Last 24 Hours (Table) 11/09/24 11/10/24 11/10/24 Range/Units 20:01 17:08 20:24 BUN (9.0-27.0) mg/dL Creatinine (0.6-1.5) mg/dL Est GFR (CKD-EPI) (>=60) Glucose (70-110) mg/dL POC Glucose (mg/dL) 237 H 214 H 241 H (70-110) mg/dL Calcium (8.7-10.3) mg/dL Magnesium (1.5-2.4) mg/dL 11/11/24 11/11/24 Range/Units 05:57 11:50 BUN 37.1 H (9.0-27.0) mg/dL Creatinine 2.5 H (0.6-1.5) mg/dL Est GFR (CKD-EPI) 28 L (>=60) Glucose 118 H (70-110) mg/dL POC Glucose (mg/dL) 203 H (70-110) mg/dL Calcium 8.0 L (8.7-10.3) mg/dL Magnesium 1.3 L (1.5-2.4) mg/dL Assessment and Plan Assessment: Acute hypoxic respiratory failure, extubated on 10/22/2024. Currently on 2 L/min per nasal cannula Acute left lower lobe pneumonia secondary to Enterobacter aerogenes. Follow-up cultures revealed no growth Acute metabolic encephalopathy, improving Acute kidney injury, with improving creatinine, currently 2.5 Septic shock, resolved Right-sided pleural effusion requiring thoracentesis and 400 cc of fluid removed cultures revealed no growth, cytology negative for malignancy Septic arthritis of the right knee requiring surgery cultures positive for strep A, patient was transitioned from cefepime to Invanz by infectious disease mostly because of the sputum cultures showing Enterobacter erogenous Chronic back pain may need MRI of the lumbosacral spine Chronic alcohol abuse and acute alcohol withdrawal syndrome recovered Status post arthroscopy and arthroscopic lavage and debridement of right knee with partial medial meniscectomy and medial femoral condyle and medial tibial plateau chondroplasty this was done on 10/06/2024 Acute on chronic anemia History of underlying coronary artery disease and previous stent placement History of LV dysfunction and cardiomyopathy with ejection fraction of 45% Paroxysmal atrial fibrillation currently patient is in sinus rhythm. On amiodarone and heparin drip Type 1 diabetes GERD without esophagitis Dyslipidemia History of [place] History of degenerative joint disease Right upper extremity swelling and pain with limitation in range of motion, seen by orthopedic Suspect peripheral vessel occlusive disease and ischemic changes seen by vascular Plan: The patient was seen and evaluated Labs and medications reviewed Remains on ceftriaxone per ID service Remains on IV Lasix Nephrology is following Continued on bronchodilators Titrate down the FiO2 as tolerated Plan is for subacute rehab at [facility] at discharge I have personally seen and examined the patient, performed the documentation and the assessment and plan as written. Number of minutes spent on the visit: 10 Dictation was produced using [employer] dictation software. Please excuse any grammatical, word or spelling errors.
--- NOTE | 2024-11-11 13:02 | XR ---
EXAMINATION TYPE: XR chest 1V portable DATE OF EXAM: 11/11/2024 COMPARISON: 11/07/2024 CLINICAL INDICATION: Male, 64 years old with history of shortness of breath; , TECHNIQUE: XR chest 1V portable views of the chest. FINDINGS: Bilateral consolidation and small effusion are stable. No pneumothorax. Heart size enlarged. Osseous structures stable. No pneumothorax. IMPRESSION: 1. Stable bilateral consolidation and pleural effusion. [facility], , 11/11/2024 12:59 PM
--- NOTE | 2024-11-11 15:15 | P.DS ---
Providers Date of admission: 10/06/24 18:22 Expected date of discharge: 11/11/24 Attending physician: Pierre Rubio Consults: 10/06/24 18:19 Consult Physician Routine Consulting Provider: Sarah Newton Consult Reason/Comments: SHERI, rhabdomyolysis Do you want consulting provider notified?: Yes Consult Physician Stat Consulting Provider: Arianna Chaudhari Consult Reason/Comments: Hypovolemic shock, rhabdomyolysis, DTs Do you want consulting provider notified?: Already Contacted 10/07/24 15:12 Consult Physician Routine Consulting Provider: Paige Sanders Consult Reason/Comments: sepsis Do you want consulting provider notified?: Yes 10/09/24 08:38 Consult Physician Routine Consulting Provider: Herbert Funk Consult Reason/Comments: right knee swelling Do you want consulting provider notified?: Yes 10/24/24 09:04 Consult Physician Routine Consulting Provider: Aleksandr Cortes Consult Reason/Comments: ? anoxic brain injury Do you want consulting provider notified?: Yes 10/27/24 13:55 Consult Physician Routine Consulting Provider: Herbert Funk Consult Reason/Comments: rt arm pain and swelling Do you want consulting provider notified?: Already Contacted 11/04/24 11:14 Consult Physician Routine Consulting Provider: Oli Fuentes Consult Reason/Comments: +serum IF Do you want consulting provider notified?: Yes 11/09/24 10:06 Consult Physician Routine Consulting Provider: Chidi Nye Consult Reason/Comments: urinary retention Do you want consulting provider notified?: Yes Primary care physician: Justina Carrion Hospital Course: Final diagnosis -Chronic alcohol abuse with acute alcohol withdrawal syndrome, improved -Rhabdomyolysis, traumatic with prolonged downtime secondary to immobility due to fall. -Acute kidney injury secondary to ATN due to to septic shock and rhabdomyolysis. Improving; monitor renal function electrolytes; avoid nephrotoxins and hypotension. -Acute hypoxic respiratory failure requiring mechanical ventilation, succ essfully extubated on 10/22/2024, continues on 2 L via nasal cannula -Right side pleural effusion requiring thoracentesis -Right knee septic arthritis requiring surgery this hospitalization -Coronary artery disease -Acute on chronic anemia, secondary to chronic disease Paroxysmal atrial fibrillation, currently rate controlled- -Transaminitis. Improving. -Streptococcus group A bacteremia. Repeat cultures are negative -Hyponatremia, likely hypovolemic; resolved. -Type 1 diabetes mellitus; we will continue to monitor Accu-Cheks before every meal and at bedtime with insulin sliding scale. -History of coronary artery disease with previous catheterization and stent placement. -Hypertension; currently not on any antihypertensive medication. -GI prophylaxis- -DVT prophylaxis -Full code Discharge disposition Patient is being discharged in a stable condition with guarded prognosis to [facility]. Patient will follow-up with in the outpatient setting upon discharge. Patient is to continue with current medications and close outpatient follow-up with multiple consultations as scheduled. Patient has a midline and will receive 2 weeks of ceftriaxone per ID recommendations. Recommend follow-up with orthopedics outpatient along with pulmonary, nephrology, primary care provider. Total time taken is greater than 35 minutes. Hospital course This is a 64-year-old male who was recently admitted with hypovolemic shock and rhabdomyolysis with altered mental status and unresponsiveness. Patient was in the ICU for quite some time noted to have significant SHERI and rhabdomyolysis with unknown downtime. Patient is a heavy drinker drinks daily and was also placed on CIWA protocol. Patient initially required mechanical ventilation to protect the airway and has been successfully extubated and currently maintained on O2 via nasal cannula. Patient was also noted to be septicemic with bacteremia likely secondary to right knee sepsis. Patient does have a midline and will continue on IV antibiotics with for coverage of septicemia and right knee septic arthritis with infectious disease following. Patient with SHERI that is slowly improving although continues to require indwelling Blake catheter for retention and will continue and have outpatient follow-up with urology. Patient being followed by nephrology as patient did have worsening SHERI almost requiring renal replacement therapy with hemodialysis although has been showing improvements in creatinine is just above 2 today. Patient to continue with indwelling Blake catheter. Patient has had extremely prolonged hospitalization and generalized weakness and debility requiring ECF. Patient has been accepted by [facility] and will be discharged today. Please refer to other consultation notes for further HPI. Currently no reports of chest pain, shortness of breath, or palpitations. Patient is afebrile. No reports of nausea or vomiting and patient is tolerating diet. Patient will be going to [facility] today. Guarded prognosis and high risk for readmissions given significant comorbidities. Physical exam: Gen: This is a 64-year-old male who is awake, alert and oriented x 3, well- developed, thin built, elderly appearing, ill-appearing HEENT: Head is atraumatic, normocephalic. Pupils equal, round. Sclerae is anicteric. NECK: Supple. No JVD. No lymphadenopathy. No thyromegaly. LUNGS: Diminished breath sounds bilaterally otherwise clear to auscultation. No wheezes or rhonchi. No intercostal retractions. HEART: S1, S2 are muffled ABDOMEN: Soft. Thin. Bowel sounds are present. No masses. No tenderness. EXTREMITIES: No pedal edema. No calf tenderness. Diffuse lower extremity edema with significant weakness NEUROLOGICAL: Patient is awake, alert and oriented x3. Cranial nerves 2 through 12 are grossly intact. Diffusely weak Please refer to medication reconciliation sheet for a list of medications. The impression and plan of care has been dictated by Mercy Gilmore, Nurse Practitioner as directed. Dr. Ramiro MD I have performed a history and examination and MDM of this patient, discussed the same with the dictator, and agree with the dictator's assessment and plan as written ,documented as a scribe. Based on total visit time, I have performed more than 50% of the visit. Patient Condition at Discharge: Fair Plan - Discharge Summary Discharge Rx Participant: No New Discharge Prescriptions: No Action Aspirin [Adult Low Dose Aspirin EC] 81 mg PO DAILY lisinopriL [Zestril] 10 mg PO DAILY Pantoprazole Sodium [Protonix] 40 mg PO DAILY Insulin Aspart [NovoLOG] See Protocol SQ AC-TID Insulin Glargine [Lantus Vial] 20 unit SQ DAILY Atorvastatin [Lipitor] 80 mg PO DAILY #90 tab Metoprolol Tartrate [Lopressor] 50 mg PO BID HYDROcodone/APAP 7.5-325MG [[place] 7.5-325] 1 tab PO BID PRN PRN Reason: Pain Discharge Medication List Aspirin [Adult Low Dose Aspirin EC] 81 mg PO DAILY 08/29/18 [History] Insulin Aspart [NovoLOG] See Protocol SQ AC-TID 08/29/18 [History] Insulin Glargine [Lantus Vial] 20 unit SQ DAILY 08/29/18 [History] Pantoprazole Sodium [Protonix] 40 mg PO DAILY 08/29/18 [History] lisinopriL [Zestril] 10 mg PO DAILY 08/29/18 [History] Atorvastatin [Lipitor] 80 mg PO DAILY #90 tab 10/26/18 [Rx] Metoprolol Tartrate [Lopressor] 50 mg PO BID 03/02/21 [History] HYDROcodone/APAP 7.5-325MG [[place] 7.5-325] 1 tab PO BID PRN 10/06/24 [History] Follow up Appointment(s)/Referral(s): Oli Fuentes [STAFF PHYSICIAN] - 01/01/25 3:45 pm Justina Carrion MD [Primary Care Provider] - 1-2 days
[2024-11-11 16:13] VITALS: BP 149/77; PULSE 86; TEMP 98.9
[2024-11-11 17:18] LABS: Glucose,Whole Blood 194 mg/dL (70-110)
--- NOTE | 2024-11-12 11:32 | CDI ---
Documentation Clarification Form Date: 11/12/2024 11:15:39 AM From: Beatrice Hudson Phone: Admit Date: 10/06/2024 06:22:00 PM Patient Name: Forest Key Visit Number: [id number] Discharge Date: 11/11/2024 08:10:00 PM ATTENTION: The Clinical Documentation Specialists (CDI) and [facility] Coding Staff appreciate your assistance in clarifying documentation. Please respond to the clarification below the line at the bottom and electronically sign. The CDI & [facility] Coding staff will review the response and follow-up if needed. Please note: Queries are made part of the Legal Health Record. If you have any questions, please contact the author of this message via ITS. Doctor/Provider: Lc Higgins Unspecified CKD is documented per Progress Note 11/06- 11/08. Additional clarification regarding the stage of CKD is requested. History/Risk Factors: 64yo M, strep Asepsiswith a right kneepyogenic arthritis, ETOH w/d, AHRF, CHF, PAF, Right-sidedpleural effusion, ATN, rhabdo, CAD, anemia, DMI w hyper/hypoglycemia, foot ulcers, HTN Baseline creatinine near 1 Clinical Indicators: BUN: 10/06 49 10/07 53 CR: 10/07 3.12 eGFR: 10/06 20-25 11/11 28 Treatment: I recommend to continue current medications, continue symptomatic treatment. Continue with antibiotics.PT/OTevaluation. Monitor creatinine closely. Repeat labs. Avoid nephrotoxic medications. Please clarify the stage of the CKD, if known: [ ] CKD Stage 3b [ ] CKD Stage 4 [ x] Other, please specify [ ] Unable to determine Reference: National Kidney Foundation Stage 1 eGFR = 90 and kidney damage for =3 months Stage 2 eGFR 60-89 and kidney damage for =3 months Stage 3a eGFR 45-59 and kidney damage for =3 months Stage 3b eGFR 30-44 and kidney damage for =3 months Stage 4 eGFR 15-29 r and kidney damage for =3 months Stage 5 eGFR <15 and kidney damage for =3 months (Template Last Revised: November 2023) AKI due to ATN and AIN, no CKD MTDD
--- NOTE | 2024-11-12 11:51 | CDI ---
Documentation Clarification Form Date: 11/12/2024 11:34:55 AM From: Beatrice Hudson Phone: Admit Date: 10/06/2024 06:22:00 PM Patient Name: Forest Key Visit Number: [id number] Discharge Date: 11/11/2024 08:10:00 PM ATTENTION: The Clinical Documentation Specialists (CDI) and [facility] Coding Staff appreciate your assistance in clarifying documentation. Please respond to the clarification below the line at the bottom and electronically sign. The CDI & [facility] Coding staff will review the response and follow-up if needed. Please note: Queries are made part of the Legal Health Record. If you have any questions, please contact the author of this message via ITS. Doctor/Provider: Brady Pereira Your patient has the documented diagnosis of congestive heart failurewith an EF of 45%, diastolicdysfunction per multiple Progress Notes. Additional information regarding the acuity of CHF is requested. History/Risk Factors: 64yo M, strep A sepsis with a right knee pyogenic arthritis, ETOH w/d, AHRF, CHF, PAF, Right-sided pleural effusion, ATN, rhabdo, CAD, anemia, DMI w hyper/hypoglycemia, foot ulcers, HTN Clinical Indicators: VS/Pulse OX: 93-100 Echo: LV EF is estimated at 45-50 %. Moderate concentricLV hypertrophy. No obviousregional wall motionabnormality. Mild RVdilatation, RVSP 38 mmHg. MildMR & TR. Chest x ray: 10/06 Cardiac silhouette within normal limits for size. Treatment: 10/11 2 amp sodium bicarb IV push today. Lasix 20 mg IV once today. Replaceelectrolytes as needed. Repeat labs in the morning. 10/12 Acute cardiopulmonary disease with mild interval improvement in the left lung opacityas described above. In your professional opinion, can you please clarify the acuity of CHF if known? [ ] Acute Diastolic Heart Failure (preserved EF) [ ] POA [ ] Not POA [ ] Chronic Diastolic Heart Failure (preserved EF) [x ] Acute on Chronic Diastolic Heart Failure (preserved EF) [ x ] POA [ ] Not POA [ ] Other, please specify [ ] Unable to determine (Template Last Revised: December 2020) MTDD
--- NOTE | 2024-11-12 12:05 | CDI ---
Documentation Clarification Form Date: 11/12/2024 11:52:52 AM From: Beatrice Hudson Phone: Admit Date: 10/06/2024 06:22:00 PM Patient Name: Forest Key Visit Number: [id number] Discharge Date: 11/11/2024 08:10:00 PM ATTENTION: The Clinical Documentation Specialists (CDI) and [facility] Coding Staff appreciate your assistance in clarifying documentation. Please respond to the clarification below the line at the bottom and electronically sign. The CDI & [facility] Coding staff will review the response and follow-up if needed. Please note: Queries are made part of the Legal Health Record. If you have any questions, please contact the author of this message via ITS. Doctor/Provider: Savanah Blake There is documentation of diabetictoeulcers per Progress Note 10/09 and Consult 10/25. Additional specificity regarding the severity of the wound is requested. Patient history/risk factors: 64yo M, strep A sepsis with a right knee pyogenic arthritis, ETOH w/d, AHRF, DCHF, PAF, Right-sided pleural effusion, ATN, rhabdo, CAD, anemia, DMI w hyper/hypoglycemia, foot ulcers, HTN Clinical Indicators: Wound assessment: Drydiabetic ulcerslikely secondary to microvascular disease; Leftdiabeticfoot wounds, drygangrene (10/09 Progress Note) US venousDoppler: No evidence ofDVT. Soft tissueedema. RT popliteal fossacyst measuring 4.6 cm. Treatment: He underwent arterial ultrasoundof bilateral lower extremities. ABIs were normal bilaterally. He does have some tenderness in that left foot. Consult 10/25 No indication for any surgical intervention. Recommend dry gauze in between toes. ArterialultrasoundBLEwith no evidence ofPAD. Continue rest of medical management per multiple consultants. Please clarify the severity of the wound: [ ] Limited to breakdown of skin [ ] With fat layer exposed [ ] Other, Please specify [x ] Unable to determine (Template Last Revised: January 2021) MTDD
--- NOTE | 2024-11-13 13:10 | P.PN ---
Subjective Progress Note Date: 11/11/24 Principal diagnosis: Reason for follow-up is Streptococcus agalactiae bacteremia Patient is a 64-year-old male past medical history significant for diabetes mellitus hypertension hyperlipidemia IN osteoarthritis coronary disease patient was brought into the hospital after apparently the patient was found to be facedown on the ground with contusion to his forehead and abrasion to his knee and some bloody toes, patient did have a fever subsequently blood cultures came back positive with Streptococcus agalactiae prompting this consultation. Patient noticed to have swelling of the right knee aspirate was purulent subsequently the patient did have a right knee washout completed by orthopedics on 10/10/2024. On today's evaluation that is 11/11/2024, patient has been afebrile, patient is breathing comfortably and is currently on 2 L nasal cannula oxygen patient de nies having any significant cough no chest pain, patient denies nausea vomiting or diarrhea and no abdominal pain, no new symptoms. Patient creatinine is down to 2.5 no CBC was done today Objective - Vital Signs Vital signs: Vital Signs Temp 98.9 F 11/11/24 16:10 Pulse 86 11/11/24 16:10 Resp 16 11/11/24 16:10 BP 149/77 11/11/24 16:10 Pulse Ox 97 11/11/24 16:10 FiO2 4 10/28/24 04:00 Intake & Output 11/11/24 11/11/24 11/12/24 06:59 18:59 06:59 Intake Total 480 890 Output Total 1700 1800 Balance -1220 -910 Weight 88.5 kg Intake: Intake, IV Titration 300 Amount Magnesium Sulfate-D5w Pmx 200 1 gm In Dextrose/Water 1 100ml.bag @ 100 mls/hr IVPB Q1H PITO Rx#: [id number] cefTRIAXone 2 gm In 100 Sodium Chloride 0.9% 50 ml @ 100 mls/hr IVPB Q24HR PITO Rx#:[id number] Oral 480 590 Output: Urine 1700 1800 Other: Voiding Method Indwelling Catheter Indwelling Catheter # Bowel Movements 1 ABP, PAP, CO, CI - Last Documented Arterial Blood Pressure 128/42 - Exam GENERAL DESCRIPTION: Middle-age male lying in bed in no distress RESPIRATORY SYSTEM: Unlabored breathing , coarse breath sounds bilaterally HEART: S1 S2 regular rate and rhythm , ABDOMEN: Soft , no tenderness EXTREMITIES: Swelling to the lower extremity and right knee but no redness - Labs CBC & Chem 7: 11/10/24 03:14 11/11/24 05:57 Labs: Abnormal Lab Results - Last 24 Hours (Table) 11/11/24 11/11/24 11/11/24 Range/Units 05:57 11:50 17:17 BUN 37.1 H (9.0-27.0) mg/dL Creatinine 2.5 H (0.6-1.5) mg/dL Est GFR (CKD-EPI) 28 L (>=60) Glucose 118 H (70-110) mg/dL POC Glucose (mg/dL) 203 H 194 H (70-110) mg/dL Calcium 8.0 L (8.7-10.3) mg/dL Magnesium 1.3 L (1.5-2.4) mg/dL Microbiology - Last 24 Hours (Table) 10/18/24 15:00 Fungal Culture - Preliminary Sputum Assessment and Plan (1) Sepsis Status: Acute Code(s): A41.9 - SEPSIS, UNSPECIFIED ORGANISM SNOMED Code(s): 60227134 (2) Streptococcal bacteremia Status: Acute Code(s): R78.81 - BACTEREMIA; B95.5 - UNSP STREPTOCOCCUS THE CAUSE OF DISEASES [facility] SNOMED Code(s): 852756611159 Plan: 1patient presented to the hospital with sepsis in this patient who did have fever tachycardia elevated white count and now with evidence of streptococcal bacteremia which is usually of skin and soft tissue origin 2-patient noticed to have right knee effusion has been evaluated by orthopedics and is status post aspiration with purulent drainage subsequently did have right knee washout by orthopedic cultures are pending may need further workup including MRI of the spine when stable. Ortho is following the patient closely 3patient right knee fluid culture also came back positive with group A strep 4-patient did have left-sided pneumonia patient required reintubation and also status post bronchoscopy and lavage sputum culture so far negative, initial culture growing Enterobacter that is sensitive to cefepime/ertapenem patient subsequently has been successfully extubated, patient has received adequate antibiotic therapy for his underlying pneumonia 5the patient is afebrile, the patient white count is normal, 6patient did get a midline continue with Rocephin 2 g daily for 2 weeks to finish treatment for his right knee septic arthritis and a close outpatient follow-up Dictation was produced using [employer] software. please excuse any grammatical, word or spelling errors. Time with Patient: Less than 30
== END 2024-11-11 20:10 | DRG 853 ==
LOC: EC 14:27 → 2SICU 18:22 → 3SCARD 10-28 14:21 → 5NMEDONC 11-09 21:12
PROVIDERS: ADMIT Hospitalist; ATTEND Hospitalist
PROC: 06HY33Z Insertion of Infusion Device into Lower Vein, Percutaneous Approach (ICD-10-PCS; 2024-10-06)
PROC: 3E033XZ Introduction of Vasopressor into Peripheral Vein, Percutaneous Approach (ICD-10-PCS; 2024-10-06)
PROC: 03HY32Z Insertion of Monitoring Device into Upper Artery, Percutaneous Approach (ICD-10-PCS; 2024-10-09)
PROC: 4A133B1 Monitoring of Arterial Pressure, Peripheral, Percutaneous Approach (ICD-10-PCS; 2024-10-09)
PROC: 4A133J1 Monitoring of Arterial Pulse, Peripheral, Percutaneous Approach (ICD-10-PCS; 2024-10-09)
PROC: 0S9C3ZZ Drainage of Right Knee Joint, Percutaneous Approach (ICD-10-PCS; 2024-10-10)
PROC: 3E033RZ Introduction of Antiarrhythmic into Peripheral Vein, Percutaneous Approach (ICD-10-PCS; 2024-10-10)
PROC: 3E0G76Z Introduction of Nutritional Substance into Upper GI, Via Natural or Artificial Opening (ICD-10-PCS; 2024-10-10)
PROC: 0SBC0ZZ Excision of Right Knee Joint, Open Approach (ICD-10-PCS; principal; 2024-10-10 16:05)
PROC: 5A1945Z Respiratory Ventilation, 24-96 Consecutive Hours (ICD-10-PCS; 2024-10-11)
PROC: 5A09357 Assistance with Respiratory Ventilation, Less than 24 Consecutive Hours, Continuous Positive Airway Pressure (ICD-10-PCS; 2024-10-16)
PROC: 0W993ZZ Drainage of Right Pleural Cavity, Percutaneous Approach (ICD-10-PCS; 2024-10-17)
PROC: 0BC78ZZ Extirpation of Matter from Left Main Bronchus, Via Natural or Artificial Opening Endoscopic (ICD-10-PCS; 2024-10-18)
PROC: 0BC18ZZ Extirpation of Matter from Trachea, Via Natural or Artificial Opening Endoscopic (ICD-10-PCS; 2024-10-18)
PROC: 0B9J8ZX Drainage of Left Lower Lung Lobe, Via Natural or Artificial Opening Endoscopic, Diagnostic (ICD-10-PCS; 2024-10-18)
PROC: 0BC18ZZ Extirpation of Matter from Trachea, Via Natural or Artificial Opening Endoscopic (ICD-10-PCS; 2024-10-19)
PROC: 0BC78ZZ Extirpation of Matter from Left Main Bronchus, Via Natural or Artificial Opening Endoscopic (ICD-10-PCS; 2024-10-19)
PROC: 0B9J8ZX Drainage of Left Lower Lung Lobe, Via Natural or Artificial Opening Endoscopic, Diagnostic (ICD-10-PCS; 2024-10-19)
PROC: 30233N1 Transfusion of Nonautologous Red Blood Cells into Peripheral Vein, Percutaneous Approach (ICD-10-PCS; 2024-10-20)
DX: A40.0 Sepsis due to streptococcus, group A (principal); G93.41 Metabolic encephalopathy; R65.21 Severe sepsis with septic shock; N17.0 Acute kidney failure with tubular necrosis; J96.01 Acute respiratory failure with hypoxia; R57.1 Hypovolemic shock; J15.69 Pneumonia due to other Gram-negative bacteria; I50.33 Acute on chronic diastolic (congestive) heart failure; F10.231 Alcohol dependence with withdrawal delirium; M00.061 Staphylococcal arthritis, right knee; G81.91 Hemiplegia, unspecified affecting right dominant side; I96 Gangrene, not elsewhere classified; I42.9 Cardiomyopathy, unspecified; E27.40 Unspecified adrenocortical insufficiency; J91.8 Pleural effusion in other conditions classified elsewhere; B37.0 Candidal stomatitis; E87.20 Acidosis, unspecified; E87.0 Hyperosmolality and hypernatremia; D62 Acute posthemorrhagic anemia; B37.49 Other urogenital candidiasis; E87.1 Hypo-osmolality and hyponatremia; L03.116 Cellulitis of left lower limb; T79.6XXA Traumatic ischemia of muscle, initial encounter; Z79.4 Long term (current) use of insulin; E10.618 Type 1 diabetes mellitus with other diabetic arthropathy; I48.0 Paroxysmal atrial fibrillation; E10.65 Type 1 diabetes mellitus with hyperglycemia; E10.649 Type 1 diabetes mellitus with hypoglycemia without coma; E10.621 Type 1 diabetes mellitus with foot ulcer; D69.6 Thrombocytopenia, unspecified; D63.8 Anemia in other chronic diseases classified elsewhere; E83.51 Hypocalcemia; I08.1 Rheumatic disorders of both mitral and tricuspid valves; I25.10 Atherosclerotic heart disease of native coronary artery without angina pectoris; E78.5 Hyperlipidemia, unspecified; S00.83XA Contusion of other part of head, initial encounter; S80.02XA Contusion of left knee, initial encounter; M25.461 Effusion, right knee; M17.11 Unilateral primary osteoarthritis, right knee; B95.61 Methicillin susceptible Staphylococcus aureus infection as the cause of diseases classified elsewhere; S83.281A Other tear of lateral meniscus, current injury, right knee, initial encounter; S83.241A Other tear of medial meniscus, current injury, right knee, initial encounter; M22.41 Chondromalacia patellae, right knee; M65.861 Other synovitis and tenosynovitis, right lower leg; M79.5 Residual foreign body in soft tissue; J98.4 Other disorders of lung; W19.XXXA Unspecified fall, initial encounter; B95.0 Streptococcus, group A, as the cause of diseases classified elsewhere; N50.89 Other specified disorders of the male genital organs; R33.9 Retention of urine, unspecified; E86.1 Hypovolemia; E83.42 Hypomagnesemia; K21.9 Gastro-esophageal reflux disease without esophagitis; E87.6 Hypokalemia; M47.814 Spondylosis without myelopathy or radiculopathy, thoracic region; S00.81XA Abrasion of other part of head, initial encounter; S80.211A Abrasion, right knee, initial encounter; S80.212A Abrasion, left knee, initial encounter; J98.01 Acute bronchospasm; B95.8 Unspecified staphylococcus as the cause of diseases classified elsewhere; M47.812 Spondylosis without myelopathy or radiculopathy, cervical region; M48.04 Spinal stenosis, thoracic region; M50.31 Other cervical disc degeneration, high cervical region; M48.02 Spinal stenosis, cervical region; M51.34 Other intervertebral disc degeneration, thoracic region; D47.2 Monoclonal gammopathy; R49.0 Dysphonia; B95.4 Other streptococcus as the cause of diseases classified elsewhere; Y90.0 Blood alcohol level of less than 20 mg/100 ml; Z79.82 Long term (current) use of aspirin; Z79.899 Other long term (current) drug therapy; I25.2 Old myocardial infarction; Z95.5 Presence of coronary angioplasty implant and graft; Z87.891 Personal history of nicotine dependence; Y92.009 Unspecified place in unspecified non-institutional (private) residence as the place of occurrence of the external cause; I11.0 Hypertensive heart disease with heart failure; L97.509 Non-pressure chronic ulcer of other part of unspecified foot with unspecified severity
CPT/HCPCS: 36410; 36415; 36556; 36600; 51702; 70450; 70551; 71045; 71046; 71275; 72125; 72141; 74230; 76604; 76705; 76770; 76937; 80048; 80053; 80074; 80202; 80320; 81001; 81050; 82140; 82272; 82306; 82330; 82533; 82550; 82565; 82607; 82668; 82728; 82746; 82805; 82945; 83036; 83540; 83550; 83605; 83615; 83690; 83735; 83883; 83921; 83970; 84132; 84145; 84156; 84157; 84165; 84166; 84295; 84443; 84550; 85025; 85027; 85045; 85610; 85652; 85730; 86038; 86160; 86162; 86225; 86255; 86334; 86335; 86431; 86850; 86900; 86901; 86920; 87040; 87070; 87075; 87077; 87086; 87102; 87116; 87186; 87205; 87206; 87324; 87496; 87498; 87502; 87529; 87634; 87635; 87636; 87798; 88108; 88305; 89050; 89060; 93005; 93306; 93922; 93923; 93970; 94002; 94003; 94640; 94660; 94760; 95816; 96365; 96366; 96367; 96368; 96372; 96375; 96376; 99291

== ENCOUNTER → 2025-02-03 | Outpatient (CLI) | payer BC ==
[2025-02-03 20:45] LABS: Basophils # (A) 0.09 X 10*3/uL (0.00-0.10); Eosinophils # (A) 0.23 X 10*3/uL (0.04-0.35); Eosinophils % (A) 2.6 %; HCT 28.3 % (39.6-50.0); HGB 8.9 g/dL (13.0-17.0); Lymphocytes # (A) 2.06 X 10*3/uL (0.90-5.00); Lymphocytes % (A) 22.9 %; MCH 27.8 pg (27.0-32.0); MCHC 31.4 g/dL (32.0-37.0); MCV 88.4 FL (80.0-97.0); Monocytes # (A) 0.85 X 10*3/uL (0.20-1.00); Monocytes % (A) 9.5 %; NRBC Per 100 WBC 0 X 10*3/uL (0.00-0.01); Neutrophils # (A) 5.74 X 10*3/uL (1.80-7.70); Neutrophils % (A) 63.8 %; Platelet Count 453 X 10*3/uL (140-440); WBC 8.99 X 10*3/uL (4.50-10.00)
[2025-02-03 21:12] LABS: Erythrocyte Sedimentation Rate 76 mm/Hr (0-20)
== END | disposition home or self-care (01) ==
LOC: LABWHC1 16:11
PROVIDERS: ATTEND Orthopaedic Surgery
DX: M25.561 Pain in right knee (principal); M17.11 Unilateral primary osteoarthritis, right knee; M86.9 Osteomyelitis, unspecified; M00.861 Arthritis due to other bacteria, right knee
CPT/HCPCS: 36415; 85025; 85652; 86140; 87070; 87075; 87205

== ENCOUNTER 2025-02-28 08:26 | Day surgery (SDC) | payer BC ==
[~2025-02-28 08:26] MED LIST changes: -ASPIRIN 325 MG TAB PO STA; -HEPARIN SODIUM,PORCINE 10,000 UNIT in SODIUM CHLORIDE 0.9% 1,000 ML IRRIGATION PRN; -HEPARIN SODIUM,PORCINE 2,500 UNIT in SODIUM CHLORIDE 0.9% 250 ML IRRIGATION PRN; -SODIUM CHLORIDE 0.9% 1,000 ML in EMPTY BAG 1 BAG IV SCH
[2025-02-28] MEDS: IV FLUID CONTINUATION 1,000 ML IV ONE (08:35)
[2025-02-28] MEDS: ATORVASTATIN 80 MG TAB PO STA (08:48)
[2025-02-28] MEDS: ASPIRIN 325 MG TAB PO STA (08:48)
[2025-02-28 09:03] LABS: Glucose,Whole Blood 112 mg/dL (70-110)
[2025-02-28] MEDS: SODIUM CHLORIDE 0.9% 1,000 ML in EMPTY BAG 1 BAG IV SCH (09:04)
[2025-02-28 09:16] VITALS: RESP 16; TEMP 98.3
[2025-02-28 09:36] LABS: African American GFR (CKD) 59 (>60 ml/min/1.73 sqM); Anion Gap 7 mmol/L; Blood Urea Nitrogen 33 mg/dL (9-20); Calcium 9.4 mg/dL (8.4-10.2); Carbon Dioxide 29 mmol/L (22-30); Chloride 100 mmol/L (98-107); Glucose 105 mg/dL (74-99); Non-African American GFR(CKD) 51 (>60 ml/min/1.73 sqM); Potassium 4.8 mmol/L (3.5-5.1); Sodium 136 mmol/L (137-145)
[2025-02-28] MEDS: HEPARIN SODIUM,PORCINE 10,000 UNIT in SODIUM CHLORIDE 0.9% 1,000 ML IRRIGATION PRN (10:16)
[2025-02-28] MEDS: HEPARIN SODIUM,PORCINE (1 ML) 2,500 UNIT in SODIUM CHLORIDE 0.9% 250 ML IRRIGATION PRN (10:16)
[2025-02-28] MEDS: fentaNYL (PF) 50 MCG/ML 2 ML AMP IVP ONE (10:42)
[2025-02-28] MEDS: LIDOCAINE 1% INJ 10MG/ML (20 ML MDV) SQ ONE (10:46)
[2025-02-28] MEDS: VERAPAMIL SYRINGE (5 MG/10 ML) INTRAARTER ONE ×3 (10:47→10:50)
[2025-02-28] MEDS: MIDAZOLAM 2 MG/2 ML VIAL IVP ONE (10:49)
[2025-02-28] MEDS: HEPARIN SODIUM 1,000 UN/ML (10ML VL) IVP ONE (10:51)
[2025-02-28] MEDS: IOPAMIDOL-370 100ML BTL INJ ONE (11:01)
[2025-02-28] MEDS: SODIUM CHLORIDE 0.9% 1,000 ML IV SCH (11:10)
[2025-02-28] MEDS ORDERED: RX INFO: IV CONTRAST WAS GIVEN 1 EACH MISC MISCELLANE PRN (11:17)
--- NOTE | 2025-02-28 11:25 | P.CARDCATH ---
Date of Procedure: 02/28/25 Description of Procedure: Cardiac Catheterization: The patient is a 64-year-old male with known history of hypertension, hyperlipidemia, diabetes mellitus and known history of CAD who was scheduled to undergo orthopedic surgery and his MPI showed an inferior wall defect with a drop in his ejection fraction. Recommendations were made regarding cardiac catheterization, the risks and the complications were discussed with the patient who is in full understanding and agreement. Procedure Description: Patient was brought to [facility] in fasting semi-sedated state after receiving Fentanyl and Benadryl achieiving moderate conscious sedated state. Using Xylocaine Anesthesia and modified Seldinger technique, a 6-Iranian sheath was introduced in the right radial artery . Subsequently, selective coronary angiography was performed using a 5-Iranian 3.5 bend Dave catheter. Multiple views of the coronary artery including hemiaxial views were obtained. The right Dave catheter was used to cross the aortic valve and LVEDP was calculated. Following that, catheter and sheath were removed. Hemostasis was obtained with deployment of vascular band . There was no immediate complication. Patient was returned to room in stable condition. Of note, the patient received a total of 4000 units of intravenous heparin as well as intra-arterial verapamil. Findings: Fluoroscopy: Significant calcifications of the coronary arteries was noted Left main: This is a short size vessel, bifurcating into LAD and left circumflex, left main has no obstructive disease. LAD: This is a large size vessel, giving rise to 2 diagonal branch, the first 1 is small in caliber the second 1 is large in caliber. The proximal LAD has mild intimal disease of 20%. At the takeoff of the second obtuse marginal branch there is a 60% plaque in the ostium of the bifurcation of the LAD has a 99% stenosis then a long tubular lesion of 90% stenosis the distal vessel has no high-grade stenosis but it is small in caliber. Left circumflex: This is a dominant vessel, even rise to 2 obtuse marginal branch, the first 1 is small in caliber. After the takeoff of the first obtuse marginal branch there is a 99% stenosis and a another 90% stenosis at the takeoff of the second obtuse marginal branch at the distal edge of the prior stent. The distal obtuse marginal branch is large in caliber RCA: This is a large dominant vessel, bifurcating distally to PDA and PLV. The mid RCA has 99% stenosis and there is a diffuse intimal disease up to 60 to 70% and prior to the bifurcation of the PDA and the PLV there is another 95% stenosis the rest of the vessel has no high-grade stenosis. Collaterals from the LAD toward the right PDA was noted Left Ventriculogram: Not performed Hemodynamics: [] , LVEDP was 10-12 mmHg Conclusion: 1. Calcified coronary arteries 2. Severe disease involving the mid LAD 3. Severe disease in the proximal and mid left circumflex 4. Severe disease in the mid distal RCA 5. Right dominance 6. Normal LVEDP Recommendations: The patient has significant progression of disease since 2021. I have trenton mmended to proceed with evaluation for CABG, in the meantime continuing aggressive coronary risks modification will be done. The findings and the recommendations were discussed with the patient and the family and they were in full understanding and agreement. Duration of sedation is 14 minutes.
--- NOTE | 2025-02-28 12:16 | P.GSCN ---
History of Present Illness Consult date: 02/28/25 Reason for Consult: Triple-vessel coronary artery disease Requesting physician: Angela Saavedra History of present illness: This is a 64-year-old gentleman who follows outpatient with Dr. Carrion for primary care and Dr. Saavedra for cardiology. He has a previous medical history of coronary artery disease with previous myocardial infarction and stenting, hypertension, hyperlipidemia, insulin-dependent diabetes, paroxysmal atrial fibrillation on no anticoagulation currently, chronic anemia, previous tobacco dependence, previous EtOH abuse, occasional marijuana use, and extensive hospitalization at the end of 2023 for sepsis with right knee septic arthritis, rhabdomyolysis, DTs, and he underwent right thoracentesis for effusion at that time. Upon discharge from that hospitalization he went to subacute rehab to re gain strength. He had been due to have a scheduled stress test in November, unfortunately due to his health conditions that was delayed. He was able to undergo stress testing in January of this year which was abnormal demonstrating fixed inferior wall defect and ejection fraction 35%. The patient reports he has had no chest pain, no shortness of breath, no nausea/vomiting, no symptoms of ischemic coronary disease. He was recommended to undergo elective heart catheterization which was completed today by Dr. Saavedra revealing calcified coronary artery disease with severe disease in the mid LAD, proximal and mid left circumflex, and mid to distal RCA, indicating progression of disease since 2021. Due to these findings consultation was placed to Dr. Pitt for surgical revascularization recommendations. Review of Systems Review of systems was completed and was negative except as noted - Constitutional Reports weakness - Cardiovascular Reports leg edema - Musculoskeletal Musculoskeleta Comment(s): Needs walker for ambulation Reports limitation of motion Past Medical History Past Medical History: Atrial Fibrillation, Coronary Artery Disease (CAD), Diabetes Mellitus, GERD/Reflux, Hyperlipidemia, Hypertension, Myocardial Infar ction ([place]), Osteoarthritis (OA), Renal Disease Additional Past Medical History / Comment(s): arthritis in fingers, knees, and neck area; NT in bilat arms, in [facility] in Sep. 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 while in hospital, recent stress test, wore a monitor recently, right knee bone on bone-using w/c because of it, possible sleep apnea, right arm numb-poss. carpal tunnel Last Myocardial Infarction Date:: 2009 History of Any Multi-Drug Resistant Organisms: None Reported Past Surgical History: Heart Catheterization With Stent, Orthopedic Surgery Additional Past Surgical History / Comment(s): ANAL FISSURE REPAIR, 2 cardiac stents, bhargavi cataracts. Pain proc , arthroscopic right knee surg., cervical fusion Past Anesthesia/Blood Transfusion Reactions: No Reported Reaction Additional Past Anesthesia/Blood Transfusion Reaction / Comm: no hx. of transfusion reaction Date of Last Stent Placement:: 2015 Past Psychological History: No Psychological Hx Reported Smoking Status: Former smoker Past Alcohol Use History: Abuse Additional Past Alcohol Use History / Comment(s): Quit drinking and has had no alcohol since his hospitalization Past Drug Use History: Marijuana Additional Drug Use History / Comment(s): Uses edibles occasionally Additional History: Quit smoking 2 years ago, prior to that smoked 1 pack/day for 25 years - Past Family History Father Family Medical History: Cancer Additional Family Medical History / Comment(s): PANCREATIC Mother Family Medical History: Liver Disease Additional Family Medical History / Comment(s): Nonalcoholic fatty liver disease Medications and Allergies Home Medications Medication Instructions Recorded Confirmed Type Aspirin [Adult Low Dose Aspirin EC] 81 mg PO DAILY 08/29/18 02/28/25 History Atorvastatin [Lipitor] 40 mg PO DAILY tab 11/11/24 02/28/25 Rx Cholecalciferol [Vitamin D3 (25 100 mcg PO DAILY tab 11/11/24 02/28/25 Rx Mcg = 1000 Iu)] HYDROcodone/APAP 5-325MG [[place] 1 tab PO Q6HR PRN #6 tab 11/11/24 02/28/25 Rx 5-325] INSULIN ASPART (NovoLOG) [NovoLOG 0 unit SQ ACHS each 11/11/24 02/28/25 Rx (formulary)] Empagliflozin [Jardiance] 10 mg PO DAILY 02/26/25 02/28/25 History Insulin Glargine,Hum.rec.anlog 0 units SQ HS 02/26/25 02/28/25 History [Lantus Solostar Pen] Insulin Glargine,Hum.rec.anlog 20 units SQ DAILY 02/26/25 02/28/25 History [Lantus Solostar Pen] Magnesium Oxide [Mag-Ox] 400 mg PO DAILY 02/26/25 02/28/25 History Metoprolol Tartrate [Lopressor] 25 mg PO BID 02/26/25 02/28/25 History Pantoprazole [Protonix] 40 mg PO DAILY 02/26/25 02/28/25 History buPROPion HCL [Wellbutrin SR] 200 mg PO DAILY 02/26/25 02/28/25 History ramipriL [Altace] 2.5 mg PO DAILY 02/26/25 02/28/25 History Allergies Allergy/AdvReac Type Severity Reaction Status Date / Time No Known Allergies Allergy Verified 10/06/24 14:43 Surgical - Exam Vital Signs Temp Pulse Resp BP Pulse Ox 98.3 F 61 16 128/59 96 02/28/25 09:13 02/28/25 09:13 02/28/25 09:13 02/28/25 09:13 02/28/25 09:13 CONSTITUTIONAL: Awake and alert, appears comfortable, cooperative, well- developed, well-nourished, no pain, no acute distress EYES: Pupils equal, round, reactive to light, normal ocular movement ENT: Moist mucous membranes without oral lesions present NECK: No masses, no bruits, trachea midline RESPIRATORY: Lungs sounds clear to auscultation bilaterally. Respirations even, nonlabored. Currently on room air with oxygen saturation 99%. Strong cough. No chest wall deformities. No clubbing or cyanosis present CARDIOVASCULAR: S1, S2 present. Regular rate and rhythm, sinus rhythm on telemetry. Palpable peripheral pulses bilaterally. No edema present. No calf pain or tenderness noted. No significant lower extremity varicosities noted GASTROINTESTINAL: Abdomen soft, nontender, nondistended without masses or organomegaly noted. There is no rebound or guarding present. Active bowel sounds present 4 quadrants. GENITOURINARY: Deferred INTEGUMENTARY: Skin is warm and dry. Right radial T band in place NEUROLOGIC: Cranial nerves II through XII intact, normal coordination, no o bvious motor or sensory deficits, speech is normal MUSKULOSKELETAL: Able to move all extremities, strength equal bilaterally, normal posture PSYCHIATRIC: Alert and oriented to person place and time, appropriate affect, intact judgment and insight CLINICAL FRAILTY SCORE 4 Results - Labs 02/28/25 08:59 Abnormal Lab Results - Last 24 Hours (Table) 02/28/25 02/28/25 Range/Units 08:59 09:00 Sodium 136 L (137-145) mmol/L BUN 33 H (9-20) mg/dL Creatinine 1.46 H (0.66-1.25) mg/dL Glucose 105 H (74-99) mg/dL POC Glucose (mg/dL) 112 H (70-110) mg/dL Diabetes panel 02/28/25 Range/Units 08:59 Sodium 136 L (137-145) mmol/L Potassium 4.8 (3.5-5.1) mmol/L Chloride 100 (98-107) mmol/L Carbon Dioxide 29 (22-30) mmol/L BUN 33 H (9-20) mg/dL Creatinine 1.46 H (0.66-1.25) mg/dL Glucose 105 H (74-99) mg/dL Calcium 9.4 (8.4-10.2) mg/dL Calcium panel 02/28/25 Range/Units 08:59 Calcium 9.4 (8.4-10.2) mg/dL Pituitary panel 02/28/25 Range/Units 08:59 Sodium 136 L (137-145) mmol/L Potassium 4.8 (3.5-5.1) mmol/L Chloride 100 (98-107) mmol/L Carbon Dioxide 29 (22-30) mmol/L BUN 33 H (9-20) mg/dL Creatinine 1.46 H (0.66-1.25) mg/dL Glucose 105 H (74-99) mg/dL Calcium 9.4 (8.4-10.2) mg/dL Adrenal panel 02/28/25 Range/Units 08:59 Sodium 136 L (137-145) mmol/L Potassium 4.8 (3.5-5.1) mmol/L Chloride 100 (98-107) mmol/L Carbon Dioxide 29 (22-30) mmol/L BUN 33 H (9-20) mg/dL Creatinine 1.46 H (0.66-1.25) mg/dL Glucose 105 H (74-99) mg/dL Calcium 9.4 (8.4-10.2) mg/dL - Imaging Additional studies: Heart catheterization films to be reviewed with Dr. Pitt, previous spitalization records reviewed Assessment and Plan Assessment: Triple-vessel coronary artery disease, progression from previous History of coronary artery disease with previous myocardial infarction and stenting Hypertension Hyperlipidemia Insulin-dependent diabetes Paroxysmal atrial fibrillation on no anticoagulation currently Chronic anemia Previous tobacco dependence Previous EtOH abuse Occasional marijuana use Extensive hospitalization at the end of 2023 for sepsis with right knee septic arthritis, rhabdomyolysis, DTs, and right sided pleural effusion with thoracentesis Plan: The patient was seen and examined at the bedside in the Extended Stay unit with present. Chart/diagnostics reviewed. Will discuss in detail with Dr. Pitt. The usual perioperative course of open-heart surgery was discussed in detail with the patient and his family, risks and benefits were reviewed, all questions were answered. The patient and do report that the patient is nonambulatory for the most part, he can get up and walk with a walker only but it does cause him significant right sided knee pain. Apparently he is to be evaluated soon by Dr. Rosario for repeat knee surgery although does need cardiac clearance. Recommend continuing to maximize medical therapy with aspirin, statin, beta-katja, SHAN. Further recommendations regarding surgical myocardial revascularization forthcoming once Dr. Pitt has seen and evaluated the patient. Thank you Dr. Saavedra for this consult. I have personally seen and examined the patient, performed the documentation and the assessment and plan as written. Number of minutes spent on the visit: 30. Luzma Brandt, GABRIEL-C
[2025-02-28 14:35] VITALS: BP 105/57
[2025-02-28 14:51] LABS: Basophils # (A) 0.05 10*3/uL (0.00-0.10); Basophils % (A) 0.7 %; Eosinophils # (A) 0.14 10*3/uL (0.04-0.35); HGB 9.6 g/dL (13.0-17.0); Lymphocytes # (A) 1.96 10*3/uL (0.90-5.00); Lymphocytes % (A) 27.7 %; MCH 27.5 pg (27.0-32.0); Mean Platelet Volume 8.6 fL (9.5-12.2); Monocytes # (A) 0.62 10*3/uL (0.20-1.00); Monocytes % (A) 8.8 %; Neutrophils # (A) 4.28 10*3/uL (1.80-7.70); Neutrophils % (A) 60.5 %; Platelet Count 410 10*3/uL (140-440); RBC 3.49 10*6/uL (4.40-5.60); RDW 16.5 % (11.5-14.5); WBC 7.07 10*3/uL (4.50-10.00)
[2025-02-28 15:02] LABS: Partial Thromboplastin Time 24.9 sec (22.0-30.0); Prothrombin Time 11.3 sec (10.0-12.5)
[2025-02-28 15:05] LABS: ALT 11 U/L (4-49); AST 17 U/L (17-59); African American GFR (CKD) 64 (>60 ml/min/1.73 sqM); Albumin 3.5 g/dL (3.5-5.0); Alkaline Phosphatase 72 U/L (38-126); Anion Gap 8 mmol/L; Blood Urea Nitrogen 31 mg/dL (9-20); Calcium 9.1 mg/dL (8.4-10.2); Carbon Dioxide 24 mmol/L (22-30); Chloride 99 mmol/L (98-107); Glucose 352 mg/dL (74-99); Magnesium 1.8 mg/dL (1.6-2.3); Non-African American GFR(CKD) 55 (>60 ml/min/1.73 sqM); Potassium 5.5 mmol/L (3.5-5.1); Sodium 131 mmol/L (137-145); Total Bilirubin 0.4 mg/dL (0.2-1.3); Total Protein 7.3 g/dL (6.3-8.2)
--- NOTE | 2025-02-28 15:19 | XR ---
EXAMINATION TYPE: XR chest 1V portable DATE OF EXAM: 02/28/2025 3:06 PM COMPARISON: 11/11/2024 CLINICAL INDICATION: Male, 64 years old with history of preop cabg, TECHNIQUE: XR chest 1V portable view(s) obtained. FINDINGS: The heart size is normal. The pulmonary vasculature is normal. The lungs are clear. There is elevation of the right diaphragm. IMPRESSION: 1. No acute pulmonary process. [facility], , 02/28/2025 3:17 PM
--- NOTE | 2025-02-28 15:37 | US ---
EXAMINATION TYPE: Pre-Operative Non-Invasive Evaluation of the hand for Potential Radial Artery Josefinaradha ramires, Measurements only DATE OF EXAM: 02/28/2025 3:20 PM CLINICAL INDICATION: Male, 64 years old with history of measurements only; preop, Preop- Cardiac Surg sim TECHNIQUE:Grayscale and color Doppler imaging of the radial artery(s) SIDE PERFORMED: Left FINDINGS: Dominant hand: Right Duplex Findings: Radial Artery: Color flow seen Measurements in mm, transverse view: Left Radial: mm Proximal: 1.8 x 1.7 mm Mid: 1.8 x 1.6 mm Distal: 2.0 x 1.6 mm Prox radial artery limited due to IV IMPRESSION: 1. No evidence for vascular occlusion. 2. Measurements as described above. [facility], , 02/28/2025 3:35 PM
--- NOTE | 2025-02-28 15:37 | US ---
EXAMINATION TYPE: US vein mapping BILAT DATE OF EXAM: 02/28/2025 3:20 PM COMPARISON: NONE CLINICAL INDICATION: Male, 64 years old with history of preop cardiac surgery; preop, Preop- Cardiac Surgery TECHNIQUE: Grayscale and color Doppler imaging of the lower extremity venous system. SIDE PERFORMED: Bilateral FINDINGS: DUPLEX FINDINGS: Greater Saphenous: Color flow seen Measurements in mm: Right Greater Saphenous: Groin: 6.5 x 6.0 mm High Thigh: 8.0 x 5.2 mm Mid Thigh: 7.8 x 6.1 mm Above Knee: 9.1 x 5.2 mm Knee: 5.3 x 4.4 mm Below Knee: 3.9 x 3.1 mm Mid Calf: 3.9 x 2.9 mm At Ankle: 5.0 x 3.3 mm Left Greater Saphenous: Groin: 6.9 x 5.7 mm High Thigh: 6.9 x 6.4 mm Mid Thigh: 7.3 x 5.3 mm Above Knee: 7.3 x 5.2 mm Knee: 7.1 x 5.5 mm Below Knee: 6.1 x 5.2 mm Mid Calf: 6.3 x 4.0 mm At Ankle: 6.0 x 4.0 mm IMPRESSION: 1. No evidence for occlusion. 2. GSV measurements listed above. 3. Performing surgeon to determine viability as conduit. [facility], , 02/28/2025 3:35 PM
[2025-02-28 15:40] LABS: Appearance,Urine Clear (Clear); Bilirubin,Urine Negative (Negative); Blood,Urine Negative (Negative); Color,Urine Colorless; Glucose,Urine (UA) 4+ (Negative); Ketones,Urine Negative (Negative); Leukocyte Esterase,Urine Negative (Negative); Nitrite,Urine Negative (Negative); PH, Urine 6.5 (5.0-8.0); Protein,Urine Negative (Negative); Specific Gravity,Urine 1.019 (1.001-1.035); Urobilinogen,Urine <2.0 mg/dL (<2.0)
--- NOTE | 2025-02-28 15:41 | US ---
EXAMINATION TYPE: US carotid duplex BILAT DATE OF EXAM: 02/28/2025 COMPARISON: NONE CLINICAL INDICATION: Male, 64 years old with history of preop cardiac surgery; preop Additional History: Z01.81- Pre-operative exam TECHNIQUE: Grayscale, color Doppler and spectral Doppler evaluation of the bilateral carotid systems and vertebral arteries. Indirect Doppler criteria was utilized. FINDINGS: EXAM MEASUREMENTS: RIGHT: Peak Systolic Velocity (PSV) cm/sec ----- Right CCA: 52.2 ----- Right ICA: 169 ----- Right ECA: 78.4 ICA/CCA ratio: 3.2 RIGHT: End Diastole cm/sec ----- Right CCA: 12.2 ----- Right ICA: 41.7 ----- Right ECA: 6.7 LEFT: Peak Systolic Velocity (PSV) cm/sec ----- Left CCA: 43.2 ----- Left ICA: 113 ----- Left ECA: 66.2 ICA/CCA ratio: 2.6 LEFT: End Diastole cm/sec ----- Left CCA: 9.2 ----- Left ICA: 20.1 ----- Left ECA: 7.9 VERTEBRALS (direction of flow): Right Vertebral: Antegrade Left Vertebral: Antegrade Rhythm: Normal BLOW OFF WORKER NOTES: plaque seen in bilateral bulbs Color Doppler imaging shows patency with blood flow throughout the carotid artery. Spectral waveforms are within normal limits. IMPRESSION: Right: 50-69% stenosis of the carotid bifurcation. Left: Less than 50% stenosis of the carotid bifurcation. Criteria for Assigning % of Stenosis / Diameter reduction (Estimation based on the indirect measurements of the internal carotid artery velocities (ICA PSV). 1. Normal (no stenosis)=ICA PSV < 180 cm/s: ratio < 2.0: ICA EDV<40 cm/s. 2. Less than 50% stenosis=ICA PSV < 180 cm/s: ratio < 2.0: ICA EDV<40 cm/s. 3. 50 to 69% stenosis=ICA PSV of 180 to 230 cm/s: ration 2.0 ? 4.0: ICA EDV 40-100 cm/s. PSV 125-180 cm/sec and ICA/CCA PSV Ratio ? 2.0 is also consistent with 50-69% stenosis 4. Greater than 70% stenosis to near occlusion= ICA PSV > 230 cm/s: ratio > 4.0: ICA EDV > 100 cm/s. 5. Near occlusion= ICA PSV velocities may be low or undetectable: variable ratio and ICA EDV. 6. Total occlusion=unable to detect flow. [facility], , 02/28/2025 3:38 PM
[2025-02-28 16:00] VITALS: PULSE 60
[2025-02-28 16:47] LABS: T4, Free (Free Thyroxine) 1.25 ng/dL (0.78-2.19)
--- NOTE | 2025-02-28 17:18 | CT ---
EXAMINATION TYPE: CT chest wo con DATE OF EXAM: 02/28/2025 5:07 PM COMPARISON: 10/18/2024 CLINICAL INDICATION: Male, 64 years old with history of eval aorta preop cabg, Eval aorta preop cabg. TECHNIQUE: Axial images were obtained at 5 mm thick sections. Reconstructed images are reviewed on [employer] computer in the coronal plane. Contrast used: mL of , (none if empty) Oral contrast used: (none if empty) CT DLP: 404.6 mGycm, Automated exposure control for dose reduction was used. FINDINGS: Portion of the thyroid visualized is normal. No suspicious lung nodules or focal infiltrates are present. No enlarged mediastinal or hilar adenopathy is evident. The ascending aorta diameter at the level o f the main pulmonary artery is 3.6 cm. The main pulmonary artery diameter at the bifurcation is 3.5 cm. Mild vascular calcification within the aortic arch is present. Descending thoracic aorta has calc ification near the diaphragm and proximal abdomen. Severe coronary artery calcifications present. Limited CT sections are obtained through the upper abdomen. Abdomen is essentially unremarkable. IMPRESSION: 1. Minimal to mild calcification within the aorta. No aneurysmal dilatation is evident. [facility], , 02/28/2025 5:15 PM
[2025-02-28 19:03] LABS: Hepatitis A Antibody IgM Nonreactive (Nonreactive); Hepatitis B Core IgM Nonreactive (Nonreactive); Hepatitis B Surface Antigen Nonreactive (Nonreactive); Hepatitis C IgG Antibody Nonreactive (Nonreactive)
[2025-02-28] MEDS ORDERED: METOPROLOL TARTRATE 25 MG TAB PO SCH (21:00)
[2025-03-01 02:53] LABS: Chol/HDL Ratio 3.77 Ratio; LDL Cholesterol,Calculated 54.9 mg/dL (0.0-131.0)
[2025-03-01] MEDS ORDERED: lisinopriL 10 MG TAB PO SCH (09:00)
[2025-03-01] MEDS ORDERED: BUPROPION HCL 200 MG PO SCH (09:00)
[2025-03-01] MEDS ORDERED: CHOLECALCIFEROL 25 MCG (1000 IU) TABLET PO SCH (09:00)
[2025-03-01] MEDS ORDERED: ASPIRIN 81 MG PO SCH (09:00)
[2025-03-01] MEDS ORDERED: DAPAGLIFLOZIN PROPANEDIOL 5 MG TABLET PO SCH (09:00)
[2025-03-01] MEDS ORDERED: ATORVASTATIN 40 MG TAB PO SCH (09:00)
[2025-03-01] MEDS ORDERED: PANTOPRAZOLE 40 MG TABLET PO SCH (09:00)
--- NOTE | 2025-03-01 15:21 | CA ---
Transthoracic Echo Report Name: [place] Age: 64 Gender: M : 1960 Exam Date: 02/28/2025 15:57 Exam Location: [facility] Ht (in): 70 Wt (lb): 155 Ordering Physician: Luzma Brandt Attending/Referring Phys: [id number], [employer] Instructor Nadya Muller, RDLEANDRA Procedure CPT: Indications: preop cardiac surgery Cardiac Hx: Technical Quality: Good Contrast 1: Total Dose (mL): Contrast 2: Total Dose (mL): MEASUREMENTS (Male / Female) Normal Values 2D ECHO LV Diastolic Diameter PLAX 5.3 cm 4.2 - 5.9 / 3.9 - 5.3 cm LV Systolic Diameter PLAX 3.6 cm IVS Diastolic Thickness 1.3 cm 0.6 - 1.0 / 0.6 - 0.9 cm LVPW Diastolic Thickness 1.2 cm 0.6 - 1.0 / 0.6 - 0.9 cm LV Relative Wall Thickness 0.5 RV Internal Dim ED PLAX 2.6 cm LA Systolic Diameter LX 3.8 cm 3.0 - 4.0 / 2.7 - 3.8 cm LV Diastolic Volume MOD BP 107.1 cm??? 67 - 155 / 56 - 104 cm??? LV Systolic Volume MOD BP 67.8 cm??? 22 - 58 / 19 - 49 cm??? LV Ejection Fraction MOD BP 36.7 % >= 55 % LV Cardiac Index MOD BP 1161.9 cm???/min???m??? LV Diastolic Volume MOD 4C 96.4 cm??? LV Systolic Volume MOD 4C 55.5 cm??? LV Ejection Fraction MOD 4C 42.4 % LV Cardiac Index MOD 4C 1207.0 cm???/min???m??? LV Diastolic Length 4C 8.8 cm LV Systolic Length 4C 8.2 cm LV Diastolic Volume MOD 2C 117.5 cm??? LV Systolic Volume MOD 2C 81.6 cm??? LV Ejection Fraction MOD 2C 30.6 % LV Cardiac Index MOD 2C 1060.4 cm???/min???m??? LV Diastolic Length 2C 9.0 cm LV Systolic Length 2C 8.4 cm LA Volume 61.3 cm??? 18 - 58 / 22 - 52 cm??? LA Volume Index 32.9 cm???/m??? 16 - 28 cm???/m??? M-MODE Aortic Root Diameter MM 3.6 cm LA Systolic Diameter MM 3.8 cm LA Ao Ratio MM 1.1 AV Cusp Separation MM 2.0 cm DOPPLER AV Peak Velocity 131.9 cm/s AV Peak Gradient 7.0 mmHg MV Area PHT 2.2 cm??? Mitral E Point Velocity 58.8 cm/s Mitral A Point Velocity 91.5 cm/s Mitral E to A Ratio 0.6 MV Deceleration Time 344.9 ms TR Peak Velocity 155.9 cm/s TR Peak Gradient 9.7 mmHg FINDINGS Left Ventricle Left ventricular ejection fraction is estimated at 40-45 %. Mildly increased septal wall thickness. Mildly increased left ventricular systolic volume. Hypokinetic inferior wall. Right Ventricle Normal right ventricular size and function. Right ventricular systolic pressure within normal limits. Right Atrium Normal right atrial size. Left Atrium Mildly increased left atrial volume. Mitral Valve Structurally normal mitral valve. Mild mitral regurgitation. No mitral stenosis. Aortic Valve Trileaflet aortic valve. No aortic valve stenosis or regurgitation. Tricuspid Valve Structurally normal tricuspid valve. Mild tricuspid regurgitation. No tricuspid stenosis. Pulmonic Valve Structurally normal pulmonic valve. Trace pulmonic regurgitation. No pulmonic stenosis. Pericardium No pericardial or pleural effusion. Aorta Aorta at upper limits of normal. CONCLUSIONS Mildly impaired LV function with EF between 40 to 45% with mild LVH Previewed by: Dr. Tejas Reid MD (Electronically Signed) Final Date: 28 February 2025 19:53
== END 2025-02-28 17:21 | disposition home or self-care (01) ==
LOC: CATHCVL 08:26
PROVIDERS: ATTEND Internal Medicine Interventional Cardiology
DX: I25.10 Atherosclerotic heart disease of native coronary artery without angina pectoris (principal); I48.0 Paroxysmal atrial fibrillation; I70.0 Atherosclerosis of aorta; I25.2 Old myocardial infarction; I25.5 Ischemic cardiomyopathy; I11.9 Hypertensive heart disease without heart failure; E78.5 Hyperlipidemia, unspecified; E11.9 Type 2 diabetes mellitus without complications; Z87.891 Personal history of nicotine dependence; Z95.5 Presence of coronary angioplasty implant and graft; Z01.810 Encounter for preprocedural cardiovascular examination; Z79.4 Long term (current) use of insulin; Z79.84 Long term (current) use of oral hypoglycemic drugs; Z79.899 Other long term (current) drug therapy
CPT/HCPCS: 99152; 94150; 93306; 93458; 84439; 80061; 80053; 80048; 80074; 84443; 83735; 85025; 85610; 85730; 81003; 87070; 83036; 71045; 93931; 93970; 93880; 71250; C1894; C1769; J2250; J1644 ×3; J2003; J3010; Q9967

== ENCOUNTER → 2025-04-22 | Outpatient (CLI) | payer BC ==
[2025-04-22 14:46] LABS: Partial Thromboplastin Time 22.2 sec (22.0-30.0); Prothrombin Time 10.6 sec (10.0-12.5)
[2025-04-22 18:17] LABS: HGB 9.6 g/dL (13.0-17.0); MCH 28.3 pg (27.0-32.0); MCV 91.4 FL (80.0-97.0); Mean Platelet Volume 8.8 FL (9.5-12.2); NRBC Per 100 WBC 0 X 10*3/uL (0.00-0.01); Platelet Count 391 X 10*3/uL (140-440); RBC 3.39 X 10*6/uL (4.40-5.60); RDW 20.1 % (11.5-14.5); WBC 8.54 X 10*3/uL (4.50-10.00)
[2025-04-22 18:37] LABS: BUN/Creat Ratio 22.47 Ratio (12.00-20.00); Blood Urea Nitrogen 33.7 mg/dL (9.0-27.0); Chloride 105 mmol/L (96-109); Glucose 74 mg/dL (70-110); Magnesium 2.1 mg/dL (1.5-2.4); Potassium 4.1 mmol/L (3.5-5.5); Sodium 141 mmol/L (135-145)
[2025-04-22 18:38] LABS: ALT 15 U/L (10-49); AST 19 U/L (14-35); Albumin 4.2 g/dL (3.8-4.9); Alkaline Phosphatase 61 U/L (41-126); Calcium 9.8 mg/dL (8.7-10.3); Carbon Dioxide 22.6 mmol/L (21.6-31.8); Globulin 3.5 g/dL (1.6-3.3); Total Bilirubin <0.2 mg/dL (0.3-1.2); Total Protein 7.7 g/dL (6.2-8.2)
[2025-04-22 22:18] LABS: Appearance,Urine Clear (Clear); Bilirubin,Urine Negative (Negative); Blood,Urine Negative (Negative); Color,Urine Yellow (Yellow); Ketones,Urine Negative (Negative); Nitrite,Urine Negative (Negative); PH, Urine 5.5; Specific Gravity,Urine 1.026 (1.001-1.030); Urobilinogen,Urine 0.2 E.U./DL
--- NOTE | 2025-04-23 07:16 | XR ---
EXAMINATION TYPE: XR chest 2V DATE OF EXAM: 04/22/2025 CLINICAL INDICATION: Male, 65 years old with history of OPEN HEART, pre TECHNIQUE: Frontal and lateral views of the chest are obtained. COMPARISON: Chest CT February 28, 2025 FINDINGS: Elevated right hemidiaphragm redemonstrated. Persistent right basilar linear scarring and/ or atelectasis. Left lung remains clear. The cardiac silhouette size is within normal limits. Anteri or fusion plate in the cervical spine is present. IMPRESSION: Chronic changes without new acute pulmonary process. [facility], , 04/23/2025 7:14 AM
== END | disposition home or self-care (01) ==
LOC: LABWHC1 14:01
PROVIDERS: ATTEND Surgery
DX: I25.10 Atherosclerotic heart disease of native coronary artery without angina pectoris (principal)
CPT/HCPCS: 36415; 71046; 80053; 80061; 81003; 83036; 83735; 84439; 84443; 85027; 85610; 85730; 86850; 86900; 86901; 86920; 87070; 87086; 93005

== ENCOUNTER 2025-04-28 05:38 | Inpatient (IN) | payer BC ==
--- NOTE | 2025-04-23 10:05 | P.PN ---
Progress Note - Text Progress Note Date: 04/23/25 5-minute walk test not completed as patient did not have his walker at the time of assessment, unable to ambulate without his walker. STS risk score was calculated and discussed with the patient. Clinical frailty score equals 4.
[2025-04-28] MEDS: IV FLUID CONTINUATION 1,000 ML IV ONE (05:51)
[2025-04-28 06:17] LABS: Glucose,Whole Blood 68 mg/dL (70-110)
[2025-04-28] MEDS: DEXTROSE 50% SYRINGE 50 ML IVP STA (06:18)
[2025-04-28] MEDS: ATORVASTATIN 10 MG TAB PO ONE (06:19)
[2025-04-28] MEDS: METOPROLOL TARTRATE 12.5 MG TAB PO ONE (06:19)
[2025-04-28] MEDS: ASPIRIN 325 MG TAB PO ONE (06:19)
[2025-04-28 06:57] LABS: Glucose,Whole Blood 91 mg/dL (70-110)
[2025-04-28] MEDS ORDERED: LIDOCAINE 1% (10MG/ML) FOR IV START INTRADERMA PRN (07:40)
[2025-04-28] MEDS ORDERED: MIDAZOLAM HCL 10 MG/10 ML VIAL ONE (08:00)
[2025-04-28] MEDS ORDERED: PHENYLEPHRINE 10 MG/ML VIAL ONE (08:00)
[2025-04-28] MEDS ORDERED: ePHEDrine 50 MG/ML 1 ML VIAL ONE (08:00)
[2025-04-28] MEDS ORDERED: LIDOCAINE 2% SYG (PF) 100 MG/5 ML ONE (08:00)
[2025-04-28] MEDS ORDERED: ALBUMIN HUMAN 5% (25gm) 500 ML VIAL IVPB ONE (08:00)
[2025-04-28] MEDS ORDERED: PROTAMINE SULFATE 10 MG/ML 25 ML VIAL IV ONE (08:00)
[2025-04-28] MEDS ORDERED: PROPOFOL 10 MG/ML 20 ML VIAL IV ONE (08:00)
[2025-04-28] MEDS ORDERED: INSULIN REGULAR 100 UNIT/ML VIAL (IV) ONE (08:00)
[2025-04-28] MEDS ORDERED: TRANEXAMIC 1,000 MG/100ML-NACL PREMIX BAG ONE (08:00)
[2025-04-28] MEDS ORDERED: VECURONIUM 10 MG VIAL IV ONE (08:00)
[2025-04-28] MEDS ORDERED: fentaNYL (PF) 50 MCG/ML 50 ML VIAL ONE (08:00)
[2025-04-28] MEDS ORDERED: CALCIUM CHLORIDE 100 MG/ML 10 ML SYRINGE ONE (08:00)
[2025-04-28 08:26] LABS: ABG Base Excess 0.6 mmol/L; ABG Glucose Whole Blood 84 mg/dL (75-99); ABG HCO3 26 mmol/L (21-25); ABG Lactic Acid Whole Blood 0.5 mmol/L (0.5-1.6); ABG Oxygen Saturation >99.4 % (94-97); ABG PCO2 41 mmHg (35-45); ABG Potassium Whole Blood 4.2 mmol/L (3.4-4.5); ABG Sodium Whole Blood 139 mmol/L (135-146); Allen Test Performed? Yes
[2025-04-28] MEDS: ceFAZolin 2 GM in DEXTROSE 5% IN WATER 50 ML IVPB ONE (08:29)
[2025-04-28] MEDS: SODIUM CHLORIDE 0.9% 500 ML 500 ML with HEPARIN SODIUM,PORCINE (1 ML) 5,000 UNIT IV ONE (09:14)
[2025-04-28] MEDS: PAPAVERINE 360 MG in SODIUM CHLORIDE 0.9% 90 ML IV ONE (09:14)
[2025-04-28] MEDS: ceFAZolin 1,000 MG in SODIUM CHLORIDE 0.9% 1,000 ML IRRIGATION ONE (09:15)
--- NOTE | 2025-04-28 09:59 | P.ANPRN ---
Procedure Note - Anesthesia - Invasive Line Right Central Line Time Out Performed: Yes Date of Procedure: 04/28/25 Time of Procedure: 07:10 Location of Patient: PreOp Preparation: Sterile Prep, Sterile Dressing Central Line Location: Internal Jugular Ultrasound Used: Yes Purpose - Visualization and Identification of Vasculature: Yes Needle Guage: 18 Image Stored and Saved: Yes Narrative: Right neck prepped and draped. 1% lidocaine 3 ml infiltrated subq. Under u/s guidance 18 g inserted into R IJ. Venous blood obtained and wire visualized in the vein. Small charles in skin followed by cordis insertion over wire. Line sutured in place. Biopatch and sterile dressing applied. Right [place] Reva Time Out Performed: Yes Date of Procedure: 04/28/25 Time of Procedure: 07:20 Location of Patient: PreOp Preparation: Sterile Prep, Sterile Dressing [place] Line Location: Internal Jugular Ultrasound Used: No Narrative: SWAN had all ports flushed and balloon tested. Catheter inserted until RV and then PA waveforms obtained. Line secured in place @ 40 cm. Balloon deflated Right Arterial Line Time Out Performed: Yes Date of Procedure: 04/28/25 Time of Procedure: 07:30 Location of Patient: PreOp Preparation: Sterile Prep, Sterile Dressing Arterial Line Location: Radial Ultrasound Used: No Needle Guage: 20 Narrative: Right radial arterial line placed by BAR PILOT under sterile conditions
--- NOTE | 2025-04-28 10:39 | P.ANPRN ---
Procedure Note - Anesthesia - JESÚS Intraop Pre Bypass JESÚS Intraop - Anesthesia Indication: CAD Date of Procedure: 04/28/25 Pre-operative Diagnosis: CAD Post-operative Diagnosis: Same Surgeon: Ravindra Pitt Left Ventricle: EF 40% Regional Wall Motion Abnormalities: Other (Inferior hypokinesis) Left Ventricle Hypertrophy: No R. Ventricle Function: Normal Anatomy: Trileaflet Aortic Stenosis: None Aortic Regurgitation: None Mitral Stenosis: None Mitral Regurgitation: None Tricuspid Stenosis: None Tricuspid Regurgitation: None Pulmonic Stenosis: None Pulmonic Regurgitation: None R. Atrial Dilation: No R. Atrial PFO: No L. Atrial Dilation: No Aortic Dissection: No Aortic Calcification: None Plural Effusion: None
[2025-04-28 10:46] LABS: ABG Glucose Whole Blood 114 mg/dL (75-99); ABG HCO3 23 mmol/L (21-25); ABG Ionized Calcium 4.8 mg/dL (4.5-5.3); ABG Lactic Acid Whole Blood 0.8 mmol/L (0.5-1.6); ABG Oxygen Saturation 99.1 % (94-97); ABG PCO2 41 mmHg (35-45); ABG PH 7.36 (7.35-7.45); ABG PO2 195 mmHg (83-108); ABG Potassium Whole Blood 3.9 mmol/L (3.4-4.5); ABG Sodium Whole Blood 140 mmol/L (135-146); ABG TCO2 23 mmol/L (19-24); Allen Test Performed? Yes
[2025-04-28 11:29] LABS: ABG Base Excess -4.9 mmol/L; ABG Glucose Whole Blood 156 mg/dL (75-99); ABG HCO3 21 mmol/L (21-25); ABG Ionized Calcium 4.3 mg/dL (4.5-5.3); ABG Lactic Acid Whole Blood 1.3 mmol/L (0.5-1.6); ABG Oxygen Saturation >99.4 % (94-97); ABG PCO2 40 mmHg (35-45); ABG PH 7.33 (7.35-7.45); ABG PO2 394 mmHg (83-108); ABG Potassium Whole Blood 4.4 mmol/L (3.4-4.5); ABG Sodium Whole Blood 136 mmol/L (135-146); Allen Test Performed? Yes
[2025-04-28 12:03] LABS: ABG Base Excess -2.1 mmol/L; ABG Glucose Whole Blood 133 mg/dL (75-99); ABG HCO3 24 mmol/L (21-25); ABG Ionized Calcium 4.3 mg/dL (4.5-5.3); ABG Oxygen Saturation >99.4 % (94-97); ABG PCO2 44 mmHg (35-45); ABG PH 7.34 (7.35-7.45); ABG PO2 335 mmHg (83-108); ABG Potassium Whole Blood 4.5 mmol/L (3.4-4.5); ABG Sodium Whole Blood 141 mmol/L (135-146); Allen Test Performed? Yes
[2025-04-28 12:33] LABS: ABG Base Excess -1.3 mmol/L; ABG Glucose Whole Blood 133 mg/dL (75-99); ABG HCO3 23 mmol/L (21-25); ABG Ionized Calcium 4.3 mg/dL (4.5-5.3); ABG Lactic Acid Whole Blood 1.2 mmol/L (0.5-1.6); ABG Oxygen Saturation >99.4 % (94-97); ABG PCO2 37 mmHg (35-45); ABG PH 7.41 (7.35-7.45); ABG PO2 252 mmHg (83-108); ABG Potassium Whole Blood 4.7 mmol/L (3.4-4.5); ABG Sodium Whole Blood 140 mmol/L (135-146); Allen Test Performed? Yes
[2025-04-28 13:00] LABS: ABG Base Excess -2.7 mmol/L; ABG Glucose Whole Blood 139 mg/dL (75-99); ABG HCO3 22 mmol/L (21-25); ABG Ionized Calcium 4.4 mg/dL (4.5-5.3); ABG Lactic Acid Whole Blood 1.5 mmol/L (0.5-1.6); ABG Oxygen Saturation >99.4 % (94-97); ABG PCO2 38 mmHg (35-45); ABG PH 7.37 (7.35-7.45); ABG PO2 340 mmHg (83-108); ABG Potassium Whole Blood 4.9 mmol/L (3.4-4.5); ABG Sodium Whole Blood 140 mmol/L (135-146); Allen Test Performed? Yes
[2025-04-28 13:42] LABS: ABG Hematocrit 24 % (34.0-46.0); ABG PO2 >420 mmHg (83-108)
[2025-04-28 13:44] LABS: ABG Hematocrit 20 % (34.0-46.0)
[2025-04-28 13:45] LABS: ABG Hematocrit 24 % (34.0-46.0)
[2025-04-28 13:46] LABS: ABG Hematocrit 24 % (34.0-46.0)
[2025-04-28 13:48] LABS: ABG Hematocrit 22 % (34.0-46.0)
[2025-04-28 13:50] LABS: ABG Hematocrit 22 % (34.0-46.0)
[2025-04-28 14:07] LABS: ABG Base Excess -3.4 mmol/L; ABG Glucose Whole Blood 132 mg/dL (75-99); ABG HCO3 21 mmol/L (21-25); ABG Hematocrit 26 % (34.0-46.0); ABG Ionized Calcium 4.9 mg/dL (4.5-5.3); ABG Lactic Acid Whole Blood 1.7 mmol/L (0.5-1.6); ABG Oxygen Saturation >99.4 % (94-97); ABG PCO2 35 mmHg (35-45); ABG PH 7.39 (7.35-7.45); ABG PO2 394 mmHg (83-108); ABG Potassium Whole Blood 4.1 mmol/L (3.4-4.5); ABG Sodium Whole Blood 140 mmol/L (135-146)
[2025-04-28] MEDS ORDERED: BENZOCAINE/MENTHOL LOZENG 1 EACH LOZENGE MUCOUS MEM PRN (14:23)
[2025-04-28] MEDS ORDERED: Potassium Replacement Protocol 1 EACH MISC MISCELLANE PRN (14:23)
[2025-04-28] MEDS ORDERED: AMIODARONE 450 MG in DEXTROSE 5% IN WATER 250 ML IV PRN (14:23)
[2025-04-28] MEDS ORDERED: hydrALAZINE HCL 20 MG/ML 1 ML VIAL IVP PRN (14:23)
[2025-04-28] MEDS ORDERED: Magnesium Replacement Protocol 1 EACH MISC MISCELLANE PRN (14:23)
[2025-04-28] MEDS ORDERED: Phosphorus Replacement Protoco 1 EACH MISC MISCELLANE PRN (14:23)
[2025-04-28] MEDS ORDERED: DEXMEDETOMIDINE/0.9% NACL(PMX) 400 MCG in EMPTY BAG 1 BAG IV SCH (14:23)
[2025-04-28] MEDS ORDERED: DEXTROSE 50% SYRINGE 50 ML IVP PRN ×2 (14:23)
[2025-04-28] MEDS ORDERED: IPRATROPIUM-ALBUTEROL 3 ML NEB INHALATION PRN (14:23)
[2025-04-28] MEDS ORDERED: CALCIUM GLUCONATE IN NACL 2 GM in SALINE 1 100ML.BAG IVPB PRN (14:23)
[2025-04-28] MEDS ORDERED: DEXTROSE 5% IN WATER 100 ML with AMIODARONE 150 MG IV PRN (14:23)
[2025-04-28] MEDS ORDERED: AMIODARONE 360 MG in DEXTROSE 5% IN WATER 200 ML IV PRN (14:23)
--- NOTE | 2025-04-28 14:41 | P.OP ---
Date of Procedure: 04/28/25 Preoperative Diagnosis: Triple-vessel coronary artery disease, status post remote inferior wall myocardial infarction with previous PCI to the right and the circumflex system, moderate left ventricular dysfunction, fixed defect on the inferior wall on stress test, diabetes, hypertension, hyperlipidemia, recently diagnosed hypothyroidism, anemia, right knee severe arthritis, paroxysmal atrial fibrillation Postoperative Diagnosis: Same with evidence of diffuse calcific coronary artery disease Procedure(s) Performed: 1triple-vessel coronary artery bypass grafting using the in situ left intramammary artery to the left anterior descending artery, left radial artery from the aorta to the obtuse marginal artery, reverse saphenous vein graft from the aorta to the very distal aspect of the posterior descending artery 2bilateral pulmonary vein isolation using radiofrequency bipolar clamp from AtriCure 3exclusion of the left atrial appendage using a 35mm AtriClip. 4endoscopic harvesting of the left radial artery. 5endoscopic harvesting of the right greater saphenous vein from the lower leg. 6intraoperative graft flow measurements using the Medistim system. 7 intraoperative transesophageal echocardiogram and epiaortic scanning Implants: 35mm AtriClip Anesthesia: AHSAN Surgeon: Ravindra Pitt License Examiner #1: Geo Butcher License Examiner #2: Beto Anne Pathology: none sent Condition: stable Disposition: ICU Indications for Procedure: Patient is with the above comorbidities and had cardiac evaluation before undergoing right knee surgery. In view of his high risk and a stress test showing fixed inferior wall defect he underwent cardiac catheterization that showed evidence of triple-vessel coronary artery disease. Ejection fraction was estimated at around 35 to 40%. Mild mitral valve regurgitation. Patient had preoperative testing and HbA1c around 9.9 and was found to have be subclinically hypothyroidism. He was sent to endocrinology and his HbA1c went down at this point to 7.7 and has been on thyroid hormone replacement with a TSH that is 1.7 at this point. Patient is chronically anemic his hematocrit around 30. Patient is brought in today for coronary bypass grafting. The STS risk score was discussed with him he understood it and agreed to proceed. Operative Findings: Moderate left ventricular dysfunction, good cardiac index above 3, mild mitral valve regurgitation, diffuse calcific coronary artery disease, evidence of an old inferior wall myocardial infarction Description of Procedure: Patient in supine position in the preoperative holding area, right internal jugular [place]-Reva catheter and the right radial arterial line were placed. PA pressure was normal cardiac index of 2.8. Subsequently was brought to the operating room where general endotracheal anesthesia was induced uneventfully. A Blake catheter was inserted. Subsequently the chest, abdomen, pelvis, both lower extremities and the left upper extremity were prepped and draped using ChloraPrep. Ioban was used to cover the skin. Patient received 2 g of cefazolin intravenously. Transesophageal echocardiogram confirmed the preoperative findings of moderate left ventricular dysfunction, severe inferior wall hypokinesia and mild mitral valve regurgitation. Midline sternotomy was performed and the bone was profusely bleeding. No bone wax was used. The left hemisternum was elevated and the left intramammary artery was harvested in a semiskeletonized fashion. The left pleura was intentionally open in this process and was drained with a 19 Georgian Sj drain. Patient was given 5000's heparin and the mammary artery was tied distally and transected had an excellent pulsatile flow in it and was around 1.75 minutes in diameter. In the same setting the left radial artery was exposed at the wrist and a clamping trial revealed preserved signal in the left index obtuse saturation probe. The radial artery was harvested initially without inflating a tourniquet however at the last 5 minutes the tourniquet had to be inflated in view of bleeding. Forearm incisions were closed over a drain. The radial artery was prepared by incising the fascia all along its volar aspect and clipping all its branches. It was of reasonable quality and relatively small around 2 mm in diameter however the patient had large veins on ultrasound and we were not sure even if we can get a piece of vein for bypass. In the same setting of the right greater saphenous vein was harvested endoscopically below the knee and a straight segment was obtained that was of reasonable quality around 3 to 4 mm in diameter. Ankeney sternal retractor was used. Mediastinal fat was transected between 2 ties. Epiaortic scanning revealed no protruding atheroma in the ascending aort a. Pericardium was opened in an inverted T fashion and a pericardial cradle was created. I included an elongated soft long aorta and a normal-sized heart with evidence diffuse calcific coronary artery disease and evidence of fibrotic changes in the inferior wall. After systemic heparinization after placement of respective pledgeted pursestring aortic cannulation the proximal arch with a 21 Georgian slow flow cannula and venous cannulation via the right atrial appendage with a 3 stage XX 9 Georgian cannula was performed. Antegrade as well as retrograde cardioplegia catheter were placed. Coronary bypass was initiated and patient temperature was allowed to drift down to 34 C. With a heart empty and beating we looked at the target. The LAD was diffusely calcified and there was a soft spot distally. The right coronary artery and the posterior descending artery were heavily calcified in its only the very distal aspect of the posterior descending artery that was soft and they will be the site for bypass. The mid aspect of the obtuse marginal artery which also proximally was calcified will be the site for bypass. Aorta was clamped and during aortic clamping Myocard protection was achieved with initial dose of 800 cc of antegrade cold blood cardioplegia with adequate arrest at 150 cc followed by 500 cc of retrograde cold blood cardioplegia. All subsequent doses were given retrograde at 15 to 20 minutes interval. We started by excluding the right pulmonary vein by isolating them and applying 3 ablation with a bipolar radiofrequency clamp from AtriCure. Attention was moved to the left side with the ligament of Jignesh was incised with the Bovie. The left-sided pulmonary veins were encircled and also ablated 3 times with a bipolar clamp. Subsequently the appendage clip was open and 1 leg of the clamp was passed into the lumen of the appendage into the left superior pulmonary vein and 3 ablation performed. Subsequently the base of the left atrial appendage was excluded by deploying a 35mm AtriClip. The opening in the appendage was closed with a pledgeted 3-0 Prolene for added security. Subsequently the first this anastomosis between the good segment of vein and the 1.5 mm distal aspect of the posterior descending artery using Prolene 7 0 in continuous fashion. The second this anastomosis was between the left radial artery that was again relatively small and the mid aspect of the obtuse marginal artery which was around 1.79 mm in diameter using Prolene 7 0 in continuous fashion. The last distal anastomosis was between the in situ left intramammary artery that passed in the deep groove in the left pleuropericardial fat and anastomosis of the distal left anterior descending artery beyond the calcific plaque and it was around 1.75-minute in diameter using Prolene 7 0 in continuous fashion. Satisfied with the distal anastomosis rewarming was started as we punched out 2 buttons of the ascending aorta and performed the 2 proximal stenosis of the vein and the radial artery separately using running Prolene. Patient was given around 1 L of warm blood via the retrograde as were performing the last proximal anastomosis and flow had been reestablished in the mammary artery. De-airing maneuvers were pursued. Subsequently the aorta was unclamped with the patient in dynamic position. Patient regained spontaneous junctional rhythm. After around 15 minutes of reperfusion we were able to wean off cardiac bypass with the need of any inotropic or vasopressor support. Transesophageal echocardiogram confirmed the same finding of mild to moderate left ventricular dysfunction. However we had excellent hemodynamics. We proceeded the [place] measurements using the Wingustim system. A 4 mm probe was selected. The flow into the vein to the posterior descending artery was 135 mm/min, pulsatile index of 1 diastolic filling of 64%. The flow into the radial artery to the obtuse marginal artery was 85 mL/min, pulsatile index of 1.3 diastolic filling of 73%. The flow into the GEIGER to the LAD was 41 mL/min, pulsatile index of 2.7 diastolic filling of 67% all showing excellent functioning graft. With that test dose and full dose protamine was given. Decannulation followed. The venous cannulation site required reinforcement with 4-0 Prolene. 2 monopolar atrial pacing wires were affixed to the respective pursestring of the right atrium and 219 Georgian Sj drain were left substernally. Pericardial fat was appreciated over the aorta and partial of the right ventricle. After ensuring adequate hemostasis hemodynamic after correct sponge instrument and needle count the sternum was closed using 5 figure of 8 Gipsy cable after interposing fibrillar between the sternal edges. The radiation was cefazolin followed. The rest of closure proceeded in layers. Skin glue was applied. Patient received 2 units of packed red blood cells to prime the pump in view of the baseline hematocrit of 24 and 700 cc of Cell Saver blood. Transferred to the ICU stable with excellent hemodynamics and a junctional rhythm at 75 on low- dose nitroglycerin.
[2025-04-28] MEDS: SODIUM CHLORIDE 0.9% 1,000 ML IV SCH (14:57)
[2025-04-28] MEDS: NITROGLYCERIN-D5W PMX 50 MG in DEXTROSE/WATER 1 250ML.BAG IV SCH (14:58)
[2025-04-28 15:04] LABS: Glucose,Whole Blood 104 mg/dL (70-110)
[2025-04-28 15:11] LABS: Basophils # (A) 0.04 10*3/uL (0.00-0.10); Basophils % (A) 0.6 %; Eosinophils # (A) 0.06 10*3/uL (0.04-0.35); Eosinophils % (A) 0.8 %; HCT 24.7 % (39.6-50.0); HGB 8.2 g/dL (13.0-17.0); Lymphocytes # (A) 1.26 10*3/uL (0.90-5.00); Lymphocytes % (A) 17.4 %; MCHC 33.2 g/dL (32.0-37.0); MCV 87.3 fL (80.0-97.0); Mean Platelet Volume 8.2 fL (9.5-12.2); Monocytes # (A) 0.34 10*3/uL (0.20-1.00); Monocytes % (A) 4.7 %; Neutrophils # (A) 5.51 10*3/uL (1.80-7.70); Neutrophils % (A) 76.1 %; RBC 2.83 10*6/uL (4.40-5.60); RDW 18.4 % (11.5-14.5); WBC 7.24 10*3/uL (4.50-10.00)
[2025-04-28] MEDS: IPRATROPIUM-ALBUTEROL 3 ML NEB INHALATION SCH ×2 (15:13→19:48)
[2025-04-28 15:14] LABS: Platelet Count 113 10*3/uL (140-440)
[2025-04-28 15:16] LABS: INR 1.4 (<1.2); Partial Thromboplastin Time 29.8 sec (22.0-30.0); Prothrombin Time 14.2 sec (10.0-12.5)
[2025-04-28 15:23] LABS: Ionized Calcium 4.5 mg/dL (4.5-5.3)
[2025-04-28 15:30] LABS: ABG Base Excess -0.3 mmol/L; ABG HCO3 24 mmol/L (21-25); ABG PCO2 36 mmHg (35-45); ABG PH 7.43 (7.35-7.45); ABG PO2 369 mmHg (83-108); ABG TCO2 25 mmol/L (19-24); Allen Test Performed? no
[2025-04-28 15:33] LABS: ALT 9 U/L (4-49); AST 27 U/L (17-59); African American GFR (CKD) 84 (>60 ml/min/1.73 sqM); Albumin 3.2 g/dL (3.5-5.0); Alkaline Phosphatase 21 U/L (38-126); Anion Gap 8 mmol/L; Blood Urea Nitrogen 24 mg/dL (9-20); Calcium 8.3 mg/dL (8.4-10.2); Carbon Dioxide 23 mmol/L (22-30); Chloride 110 mmol/L (98-107); Glucose 96 mg/dL (74-99); Magnesium 2.1 mg/dL (1.6-2.3); Non-African American GFR(CKD) 73 (>60 ml/min/1.73 sqM); Potassium 4.2 mmol/L (3.5-5.1); Sodium 141 mmol/L (137-145); Total Bilirubin 0.7 mg/dL (0.2-1.3); Total Protein 5.1 g/dL (6.3-8.2)
[2025-04-28 15:35] LABS: Glucose,Whole Blood 86 mg/dL (70-110)
--- NOTE | 2025-04-28 15:36 | XR ---
EXAMINATION TYPE: XR chest 1V portable DATE OF EXAM: 04/28/2025 3:26 PM COMPARISON: None. CLINICAL INDICATION: Male, 65 years old with history of Post Operative Cardiac Surgery, TECHNIQUE: XR chest 1V portable view(s) obtained. FINDINGS: The heart size is normal. The pulmonary vasculature is normal. Very tiny left apical pneumothorax may be present. There is some atelectatic changes at the right diaphragm. Endotracheal tube tip is 4.9 cm above marvel. Nasogastric tube tip is in the proximal left upper quad rant of the abdomen. Left-sided chest tube is present. Right [place]-Reva catheter has tip in the main p ulmonary artery region IMPRESSION: 1. Right lower lobe atelectatic type changes. 2. Multiple lines and catheters discussed above [facility], , 04/28/2025 3:33 PM
[2025-04-28 16:03] LABS: Glucose,Whole Blood 93 mg/dL (70-110)
[2025-04-28] MEDS: ACETAMINOPHEN IV (For NPO) 1,000 MG in EMPTY BAG 1 BAG IVPB SCH (16:19)
[2025-04-28] MEDS: HEPARIN SODIUM,PORCINE 5,000 UNIT/ML 1 ML VIAL SQ SCH (16:22)
[2025-04-28] MEDS: ceFAZolin 2 GM in DEXTROSE 5% IN WATER 50 ML IVPB SCH (16:23)
[2025-04-28 17:01] LABS: Glucose,Whole Blood 115 mg/dL (70-110)
--- NOTE | 2025-04-28 17:07 | P.CNPUL ---
History of Present Illness Consult date: 04/28/25 Requesting physician: Ravindra Pitt Reason for consult: other (Mechanical ventilator/critical care management) Chief complaint: Coronary artery disease History of present illness: This is a 65-year-old male patient with a known history of hypertension, hyperlipidemia, diabetes mellitus, paroxysmal atrial fibrillation, chronic anemia, previous chronic tobacco dependence, previous alcohol abuse, marijuana use, coronary artery disease with previous stent placement. He was recently found to have calcified coronary artery disease with severe disease in the mid LAD, proximal and mid left circumflex, mid to distal RCA and was recommended coronary revascularization. He was brought in today electively for the surgery. He did undergo coronary artery bypass grafting utilizing the GEIGER to the LAD, left radial artery to the obtuse marginal artery, reverse saphenous vein graft to the distal aspect of the posterior descending artery. Clipping of the left atrial appendage. He is seen now in the intensive care unit intubated and on the mechanical ventilator. Current settings are assist-control mode at a rate of 12, tidal volume 500, FiO2 100% and a PEEP of 5. Arterial blood gases revealed a PO2 of 369, PCO2 of 36 and a pH of 7.43. FiO2 titrated down to 45% currently. White count 7.2. Hemoglobin 8.2. Platelets 113. Sodium 141. Potassium 4.2. Bicarb 23. BUN 24. Creatinine 1.08. Glucose 104. He is currently on a nitroglycerin drip at 5 mcg/min. Sedated on propofol at 30 mc g/kg/min. Normal saline at 50 mL/h. Cardiac output 4.1. Cardiac index 2.2. PA pressures 33/18. CVP 14. Chest x-ray reveals right lower lobe atelectatic changes. Very tiny left apical pneumothorax. Mediastinal and left sided chest tubes remain in place. Endotracheal tube 4 cm above the marvel. Nasogastric tube in place. Right [place]-Reva catheter tip in the main pulmonary artery region. Pacer wires in place. He has been initiated on DuoNeb inhalations. Heparin for DVT prophylaxis. Review of Systems ROS unobtainable: due to endotracheal tube Past Medical History Past Medical History: Atrial Fibrillation, Coronary Artery Disease (CAD), Diabetes Mellitus, GERD/Reflux, Hyperlipidemia, Hypertension, Myocardial Infarction (CA), Osteoarthritis (OA), Renal Disease, Thyroid Disorder Additional Past Medical History / Comment(s): arthritis in fingers, knees, and neck area; NT in bilat arms, in [facility] in Nov. 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 while in hospital, recent stress test, wore a monitor recently, right knee bone on bone-using w/c because of it, possible sleep apnea, right arm numb-poss. carpal tunnel, neuropathy to hands and feet. mild edema to left foot. Last Myocardial Infarction Date:: 2009 History of Any Multi-Drug Resistant Organisms: None Reported Past Surgical History: Heart Catheterization With Stent, Orthopedic Surgery Additional Past Surgical History / Comment(s): ANAL FISSURE REPAIR, 2 cardiac stents, bhargavi cataracts. Pain proc , arthroscopic right knee surg., cervical fusion Past Anesthesia/Blood Transfusion Reactions: No Reported Reaction Additional Past Anesthesia/Blood Transfusion Reaction / Comment(s): possible blood transfusion with with rt knee sepsis no issues per spouse. Date of Last Stent Placement:: 2015 Smoking Status: Former smoker - Past Family History Father Family Medical History: Cancer Additional Family Medical History / Comment(s): PANCREATIC Mother Family Medical History: Liver Disease Additional Family Medical History / Comment(s): Nonalcoholic fatty liver disease Medications and Allergies Home Medications Medication Instructions Recorded Confirmed Type Aspirin [Adult Low Dose Aspirin EC] 81 mg PO DAILY 08/29/18 04/28/25 History Atorvastatin [Lipitor] 40 mg PO DAILY tab 11/11/24 04/28/25 Rx Cholecalciferol [Vitamin D3 (25 100 mcg PO DAILY tab 11/11/24 04/28/25 Rx Mcg = 1000 Iu)] INSULIN ASPART (NovoLOG) [NovoLOG 0 unit SQ ACHS each 11/11/24 04/28/25 Rx (formulary)] Empagliflozin [Jardiance] 10 mg PO DAILY 02/26/25 04/28/25 History Insulin Glargine,Hum.rec.anlog 5 - 10 units SQ HS 02/26/25 04/28/25 History [Lantus Solostar Pen] Insulin Glargine,Hum.rec.anlog 20 units SQ DAILY 02/26/25 04/28/25 History [Lantus Solostar Pen] Magnesium Oxide [Mag-Ox] 400 mg PO DAILY 02/26/25 04/28/25 History Metoprolol Tartrate [Lopressor] 50 mg PO DAILY 02/26/25 04/28/25 History Pantoprazole [Protonix] 40 mg PO DAILY 02/26/25 04/28/25 History ramipriL [Altace] 2.5 mg PO DAILY 02/26/25 04/28/25 History Unk Milk Thistle 1 tab PO DAILY 04/22/25 04/28/25 History Ferrous Sulfate [Feosol] 325 mg PO DAILY 04/22/25 04/28/25 History Fish Oil/Dha/Epa [Fish Oil 1,200 1 each PO HS 04/22/25 04/28/25 History mg Fish Oil] Hydrocodone/Acetaminophen 1 tab PO BID PRN 04/22/25 04/28/25 History [Hydrocodone/Acetaminophen 7.5-325] Levothyroxine Sodium [Synthroid] 50 mcg PO DAILY 04/22/25 04/28/25 History Tumeric 500mg 1 tab PO DAILY 04/22/25 04/28/25 History Vitamin B12 1 dose PO DAILY 04/22/25 04/28/25 History Mupirocin [Mupirocin 2%] 1 applic NASAL BID #1 tub 04/24/25 04/28/25 Rx Allergies Allergy/AdvReac Type Severity Reaction Status Date / Time No Known Allergies Allergy Verified 04/28/25 05:51 Physical Exam Vitals: Vital Signs Temp Pulse Pulse Resp BP BP Pulse Ox 04/28/25 16:30 73 18 100 04/28/25 16:20 72 14 100 04/28/25 16:15 04/28/25 16:10 36.1 F L 75 19 100 04/28/25 16:00 75 15 04/28/25 15:50 78 12 04/28/25 15:40 77 12 100 04/28/25 15:33 78 04/28/25 15:30 75 4 L 100 04/28/25 15:26 76 04/28/25 15:20 76 13 04/28/25 15:10 76 17 04/28/25 15:00 74 17 04/28/25 14:50 74 18 100 04/28/25 14:46 04/28/25 13:27 04/28/25 06:15 97.8 F 84 16 138/71 154/82 100 FiO2 04/28/25 16:30 04/28/25 16:20 45 04/28/25 16:15 45 04/28/25 16:10 100 04/28/25 16:00 45 04/28/25 15:50 04/28/25 15:40 04/28/25 15:33 04/28/25 15:30 04/28/25 15:26 04/28/25 15:20 04/28/25 15:10 04/28/25 15:00 04/28/25 14:50 04/28/25 14:46 100 04/28/25 13:27 100 04/28/25 06:15 Intake and Output 04/28/25 04/28/25 04/28/25 06:59 14:59 22:59 Intake Total 300 983 658 Output Total 1600 645 Balance 300 -617 13 Intake: IV 300 53 658 0.9 @ 50 100 ACETAMINOPHEN IV (For NPO 400 ) 1,000 mg In Empty Bag 1 bag @ 400 mls/hr IVPB Q6H PITO Rx#:[id number] CO/CI 40 Pressure Bags 18 ceFAZolin 2 gm In 100 Dextrose 5% in Water 50 ml @ 100 mls/hr IVPB Q8HR PITO Rx#:[id number] Blood Product 930 Rc As-1 Unit 310 [id number] Rc As-1 Unit 310 [id number] Rc As-1 Unit 310 [id number] Output: Chest Tube Drainage 240 L pleural 165 Medistinalx2 75 Drainage 60 Left Arm 60 Urine 800 345 Estimated Blood Loss 800 Other: Voiding Method Indwelling Catheter Weight 71.2 kg ABP, PAP, CO, CI - Last 8 Hours Arterial Blood Pressure 115/55 Arterial Blood Pressure 111/57 Arterial Blood Pressure 124/63 Arterial Blood Pressure 114/59 Arterial Blood Pressure 113/58 Arterial Blood Pressure 111/55 Arterial Blood Pressure 143/66 Arterial Blood Pressure 123/29 Arterial Blood Pressure 110/49 Pulmonary Artery Pressure 33/18 Pulmonary Artery Pressure 33/17 Pulmonary Artery Pressure 33/14 Pulmonary Artery Pressure 31/15 Pulmonary Artery Pressure 30/19 Pulmonary Artery Pressure 36/24 Pulmonary Artery Pressure 32/12 Pulmonary Artery Pressure 29/19 Pulmonary Artery Pressure 28/12 Cardiac Output 4.1 Cardiac Output 4.2 Cardiac Output 4.9 Cardiac Index 2.2 Cardiac Index 2.2 Cardiac Index 2.6 GENERAL EXAM: Intubated, sedated 65-year-old male patient, on the mechanical ventilator, comfortable in no apparent distress. HEAD: Normocephalic. EYES: Sluggish reaction of pupils, equal size. NOSE: Clear with pink turbinates. THROAT: Oral endotracheal and gastric tube secured in place. No erythema or exudates. NECK: Right IJ [place]-Reva catheter in place. No masses, no JVD. CHEST: Sternal dressing dry and intact. Mediastinal and left chest tubes in place to Pleur-evac and wall suction. Pacer wires in place. LUNGS: Equal air entry with crackles in the right lung base. CVS: S1 and S2 normal with no audible murmur, regular rhythm. ABDOMEN: No hepatosplenomegaly, hypoactive bowel sounds, no guarding or rigidit y. SPINE: No scoliosis or deformity SKIN: No rashes CENTRAL NERVOUS SYSTEM: Sedated, tone is normal in all 4 extremities. EXTREMITIES: Left upper extremity in Jeffery wrap. REENA drain in place. Right radial arterial line in place. There is no peripheral edema. Peripheral pulses are intact. Results - Laboratory Findings CBC and BMP: 04/28/25 14:52 04/28/25 14:52 ABG ABG pH 7.43 (7.35-7.45) 04/28/25 15:19 ABG pCO2 36 mmHg (35-45) 04/28/25 15:19 ABG pO2 369 mmHg (83-108) H 04/28/25 15:19 ABG O2 Saturation 100.0 % (94-97) H 04/28/25 15:19 PT/INR, D-dimer PT 14.2 sec (10.0-12.5) H 04/28/25 14:52 INR 1.4 (<1.2) H 04/28/25 14:52 Abnormal lab findings: Abnormal Labs 04/22/25 04/28/25 04/28/25 14:10 06:16 08:27 RBC Hgb Hct Plt Count MPV PT INR ABG pH ABG pO2 >420 H ABG HCO3 26 H ABG Total CO2 ABG O2 Saturation >99.4 H ABG Hematocrit 24 L ABG Potassium ABG Ionized Calcium ABG Glucose ABG Lactic Acid Hemoglobin 7.9 L Chloride BUN POC Glucose (mg/dL) 68 L Calcium Alkaline Phosphatase Total Protein Albumin Arterial Blood Potassium Arterial Blood Glucose Crossmatch See Detail 04/28/25 04/28/25 04/28/25 10:47 12:00 12:02 RBC Hgb Hct Plt Count MPV PT INR ABG pH 7.33 L 7.34 L ABG pO2 195 H 394 H 335 H ABG HCO3 ABG Total CO2 ABG O2 Saturation 99.1 H >99.4 H >99.4 H ABG Hematocrit 20 L* 24 L 24 L ABG Potassium ABG Ionized Calcium 4.3 L 4.3 L ABG Glucose 114 H 156 H 133 H ABG Lactic Acid Hemoglobin 6.5 L* 7.9 L 7.9 L Chloride BUN POC Glucose (mg/dL) Calcium Alkaline Phosphatase Total Protein Albumin Arterial Blood Potassium Arterial Blood Glucose 114 H 156 H 133 H Crossmatch 04/28/25 04/28/25 04/28/25 12:35 13:01 14:08 RBC Hgb Hct Plt Count MPV PT INR ABG pH ABG pO2 252 H 340 H 394 H ABG HCO3 ABG Total CO2 ABG O2 Saturation >99.4 H >99.4 H >99.4 H ABG Hematocrit 22 L 22 L 26 L ABG Potassium 4.7 H 4.9 H ABG Ionized Calcium 4.3 L 4.4 L ABG Glucose 133 H 139 H 132 H ABG Lactic Acid 1.7 H Hemoglobin 7.1 L 7.2 L 8.4 L Chloride BUN POC Glucose (mg/dL) Calcium Alkaline Phosphatase Total Protein Albumin Arterial Blood Potassium 4.7 H 4.9 H Arterial Blood Glucose 133 H 139 H 132 H Crossmatch 04/28/25 04/28/25 04/28/25 14:52 14:52 14:52 RBC 2.83 L Hgb 8.2 L Hct 24.7 L Plt Count 113 L D MPV 8.2 L PT 14.2 H INR 1.4 H ABG pH ABG pO2 ABG HCO3 ABG Total CO2 ABG O2 Saturation ABG Hematocrit ABG Potassium ABG Ionized Calcium ABG Glucose ABG Lactic Acid Hemoglobin Chloride 110 H BUN 24 H POC Glucose (mg/dL) Calcium 8.3 L Alkaline Phosphatase 21 L Total Protein 5.1 L Albumin 3.2 L Arterial Blood Potassium Arterial Blood Glucose Crossmatch 04/28/25 15:19 RBC Hgb Hct Plt Count MPV PT INR ABG pH ABG pO2 369 H ABG HCO3 ABG Total CO2 25 H ABG O2 Saturation 100.0 H ABG Hematocrit ABG Potassium ABG Ionized Calcium ABG Glucose ABG Lactic Acid Hemoglobin Chloride BUN POC Glucose (mg/dL) Calcium Alkaline Phosphatase Total Protein Albumin Arterial Blood Potassium Arterial Blood Glucose Crossmatch - Diagnostic Findings Chest x-ray: image reviewed Assessment and Plan Assessment: Coronary artery disease status post coronary artery bypass grafting utilizing a GEIGER to the LAD, left radial artery to the obtuse marginal artery, reverse saphenous vein graft to the distal aspect of the posterior descending artery. L eft atrial appendage clipping. Postoperative day #0 Mechanical ventilator management, expected outcome of surgery Anemia, expected outcome of surgery, status post 3 units packed red blood cells Previous history of coronary artery disease with prior stent placement Ischemic cardiomyopathy with a previous ejection fraction of 35% Former heavy smoker Former heavy alcohol use Marijuana use Hypertension Hyperlipidemia Diabetes mellitus, type II Paroxysmal atrial fibrillation Chronic anemia History of prolonged hospitalization due to septic right knee, delirium tremens, rhabdomyolysis 2023 History of right pleural effusion status post thoracentesis Plan: The patient was seen and evaluated Chest x-ray, labs and medications reviewed ABGs reviewed Decreased FiO2 to 45% Plan for early extubation protocol as tolerated Continue bronchodilators Heparin for DVT prophylaxis We will continue to monitor him closely here in the intensive care unit We will continue to follow and make further recommendations based on his clinical status I have personally seen and examined the patient, performed the documentation and the assessment and plan as written. Number of minutes spent on the visit: 20 Dictation was produced using [employer] dictation software. Please excuse any grammatical, word or spelling errors. Time with Patient: Greater than 30
[2025-04-28] MEDS: CLEVIDIPINE BUTYRATE 25 MG in EMPTY BAG 1 BAG IV SCH (17:14)
[2025-04-28 17:51] LABS: Glucose,Whole Blood 116 mg/dL (70-110)
[2025-04-28] MEDS: ALBUMIN HUMAN 5% 250 ML in EMPTY BAG 1 BAG IVPB PRN (18:04)
[2025-04-28 18:22] LABS: Basophils # (A) 0.05 10*3/uL (0.00-0.10); Basophils % (A) 0.7 %; Eosinophils # (A) 0.07 10*3/uL (0.04-0.35); Eosinophils % (A) 0.9 %; HCT 25.6 % (39.6-50.0); HGB 8.6 g/dL (13.0-17.0); Lymphocytes # (A) 0.91 10*3/uL (0.90-5.00); Lymphocytes % (A) 12.1 %; MCH 29.4 pg (27.0-32.0); MCHC 33.6 g/dL (32.0-37.0); MCV 87.4 fL (80.0-97.0); Mean Platelet Volume 8.6 fL (9.5-12.2); Monocytes # (A) 0.58 10*3/uL (0.20-1.00); Monocytes % (A) 7.7 %; Neutrophils # (A) 5.89 10*3/uL (1.80-7.70); Neutrophils % (A) 78.3 %; Platelet Count 133 10*3/uL (140-440); RBC 2.93 10*6/uL (4.40-5.60); RDW 19.1 % (11.5-14.5); WBC 7.52 10*3/uL (4.50-10.00)
[2025-04-28 18:29] LABS: Allen Test Performed? no
[2025-04-28 18:30] LABS: ABG Base Excess -2.8 mmol/L; ABG HCO3 23 mmol/L (21-25); ABG PCO2 44 mmHg (35-45); ABG PH 7.33 (7.35-7.45); ABG PO2 148 mmHg (83-108); ABG TCO2 24 mmol/L (19-24)
[2025-04-28 19:01] LABS: Glucose,Whole Blood 127 mg/dL (70-110)
[2025-04-28] MEDS: INSULIN REGULAR 100 UNIT in SODIUM CHLORIDE 0.9% 100 ML IV SCH (19:03)
[2025-04-28 20:08] LABS: Glucose,Whole Blood 128 mg/dL (70-110)
[2025-04-28 20:21] LABS: Basophils # (A) 0.05 10*3/uL (0.00-0.10); Basophils % (A) 0.7 %; Eosinophils # (A) 0.04 10*3/uL (0.04-0.35); Eosinophils % (A) 0.6 %; HCT 24.3 % (39.6-50.0); HGB 8.1 g/dL (13.0-17.0); Lymphocytes # (A) 0.62 10*3/uL (0.90-5.00); Lymphocytes % (A) 9.1 %; MCHC 33.3 g/dL (32.0-37.0); MCV 87.1 fL (80.0-97.0); Mean Platelet Volume 8.5 fL (9.5-12.2); Monocytes # (A) 0.48 10*3/uL (0.20-1.00); Neutrophils # (A) 5.59 10*3/uL (1.80-7.70); Neutrophils % (A) 82.2 %; Platelet Count 135 10*3/uL (140-440); RBC 2.79 10*6/uL (4.40-5.60); RDW 19.4 % (11.5-14.5); WBC 6.81 10*3/uL (4.50-10.00)
[2025-04-28 21:07] LABS: Glucose,Whole Blood 125 mg/dL (70-110)
[2025-04-28] MEDS: MUPIROCIN 2% OINT 22 GM TUBE NASAL SCH (21:39)
[2025-04-28] MEDS: ONDANSETRON 4 MG/2 ML VIAL IVP PRN (21:58)
[2025-04-28 22:05] LABS: Glucose,Whole Blood 119 mg/dL (70-110)
[2025-04-28 23:11] LABS: Glucose,Whole Blood 111 mg/dL (70-110)
[2025-04-29 00:09] LABS: Glucose,Whole Blood 117 mg/dL (70-110)
[2025-04-29 01:10] LABS: Glucose,Whole Blood 127 mg/dL (70-110)
[2025-04-29 02:23] LABS: Glucose,Whole Blood 132 mg/dL (70-110)
[2025-04-29 03:00] LABS: Glucose,Whole Blood 128 mg/dL (70-110)
[2025-04-29 03:07] LABS: Basophils # (A) 0.03 10*3/uL (0.00-0.10); Basophils % (A) 0.4 %; Eosinophils # (A) 0.01 10*3/uL (0.04-0.35); Eosinophils % (A) 0.1 %; HCT 23.8 % (39.6-50.0); HGB 7.7 g/dL (13.0-17.0); Lymphocytes # (A) 0.53 10*3/uL (0.90-5.00); Lymphocytes % (A) 7.6 %; MCH 28.3 pg (27.0-32.0); MCHC 32.4 g/dL (32.0-37.0); MCV 87.5 fL (80.0-97.0); Mean Platelet Volume 8.5 fL (9.5-12.2); Monocytes # (A) 0.47 10*3/uL (0.20-1.00); Monocytes % (A) 6.7 %; Neutrophils # (A) 5.95 10*3/uL (1.80-7.70); Neutrophils % (A) 85.1 %; Platelet Count 138 10*3/uL (140-440); RBC 2.72 10*6/uL (4.40-5.60); RDW 19.6 % (11.5-14.5)
[2025-04-29 03:28] LABS: Ionized Calcium 4.7 mg/dL (4.5-5.3)
[2025-04-29 03:36] LABS: ALT 9 U/L (4-49); AST 39 U/L (17-59); African American GFR (CKD) 78 (>60 ml/min/1.73 sqM); Albumin 3.5 g/dL (3.5-5.0); Alkaline Phosphatase 30 U/L (38-126); Anion Gap 11 mmol/L; Blood Urea Nitrogen 25 mg/dL (9-20); Calcium 8.8 mg/dL (8.4-10.2); Carbon Dioxide 22 mmol/L (22-30); Chloride 105 mmol/L (98-107); Glucose 112 mg/dL (74-99); Magnesium 1.9 mg/dL (1.6-2.3); Non-African American GFR(CKD) 67 (>60 ml/min/1.73 sqM); Potassium 4.8 mmol/L (3.5-5.1); Sodium 138 mmol/L (137-145); Total Bilirubin 0.5 mg/dL (0.2-1.3); Total Protein 5.5 g/dL (6.3-8.2)
[2025-04-29] MEDS ORDERED: Magnesium Replacement Protocol 1 EACH MISC MISCELLANE PRN (03:40)
[2025-04-29] MEDS: MAGNESIUM SULFATE-D5W PMX 1 GM in DEXTROSE/WATER 1 100ML.BAG IVPB ONE (03:44)
[2025-04-29 03:59] LABS: Glucose,Whole Blood 120 mg/dL (70-110)
[2025-04-29] MEDS ORDERED: ACETAMINOPHEN TAB 500 MG TAB PO PRN (04:00)
[2025-04-29 05:07] LABS: Glucose,Whole Blood 122 mg/dL (70-110)
--- NOTE | 2025-04-29 06:00 | XR ---
EXAMINATION TYPE: XR chest 1V portable DATE OF EXAM: 04/29/2025 5:19 AM COMPARISON: 04/28/2025 CLINICAL INDICATION: Male, 65 years old with history of Post Operative Cardiac Surgery, TECHNIQUE: XR chest 1V portable view(s) obtained. FINDINGS: The heart size is normal. The pulmonary vasculature is normal. A small left apical pneumothorax is present. Left-sided chest tube is present. [place]-Reva catheter is present with tip in the main pulmonary artery region. Mild improving atelectasis at the right lung ba se is present IMPRESSION: 1. Small residual left apical pneumothorax. 2. Improving right basilar atelectasis [facility], , 04/29/2025 5:57 AM
[2025-04-29] MEDS: LEVOTHYROXINE 50 MCG TAB PO SCH (06:43)
[2025-04-29 06:57] LABS: Glucose,Whole Blood 129 mg/dL (70-110)
[2025-04-29 08:17] LABS: Glucose,Whole Blood 184 mg/dL (70-110)
--- NOTE | 2025-04-29 08:23 | P.PN ---
Subjective Progress Note Date: 04/29/25 Principal diagnosis: Triple-vessel coronary artery disease, status post remote inferior wall myocardial infarction with previous PCI to the right and the circumflex system, moderate left ventricular dysfunction, fixed defect on the inferior wall on stress test. Past medical history significant for diabetes mellitus, hypertension, hyperlipidemia, recently diagnosed hypothyroidism, anemia, right knee severe arthritis, paroxysmal atrial fibrillation, sepsis bacteremia in September of 2024 EtOH abuse, quit drinking in September 2024, history of rhabdomyolysis secondary to immobility in September 2024, acute kidney injury secondary to septic shock and rhabdomyolysis in September 2024, GERD, and remote history of nicotine dependence. POD #1 triple-vessel coronary artery bypass grafting using the in situ left intramammary artery to the left anterior descending artery, left radial artery from the aorta to the obtuse marginal artery, reverse saphenous vein graft from the aorta to the very distal aspect of the posterior descending artery, bilateral pulmonary vein isolation using radiofrequency bipolar clamp from AtriCure, exclusion of the left atrial appendage using a 35mm, AtriClip, endoscopic harvesting of the left radial artery, endoscopic harvesting of the right greater saphenous vein from the lower leg, intraoperative graft flow measurements using the Actionsoftstim system, intraoperative transesophageal echocardiogram and epiaortic scanning. Postoperative acute blood loss anemia, expected given the patient's history of anemia, and hemodilution and cardiopulmonary bypass. The patient was seen and examined in follow-up today April 29, 2025 at his bedside in the intensive care unit. He was successfully extubated at 6:45 PM last evening, is currently sitting up to the bedside chair, is awake, alert, oriented x 3 and is in no acute apparent distress. He denies any complaints of shortness of breath at this time, although he is complaining of some surgical type pain, currently rating his pain 10 out of 10 on the pain scale. Oxygen saturations are 96% on 2 L nasal cannula, and he is achieving 750 mL on his incentive spirometry with encouragement. Bedside telemetry showing normal sinus rhythm heart rate 92 bpm. His current blood pressure is 102/45. Right IJ cordis and [place]-Reva catheter remains in place with current hemodynamic showing a cardiac output of 5.4, cardiac index 2.9, PA pressures 30/19, CVP 13 mmHg, and SVR 1065. Mediastinal and left pleural chest tubes remain in place to low continuous wall suction -20 cm H2O. No airleak is present. Mediastinal chest tube drained 110 mL of thin serosanguineous drainage in the last 8 hours and 300 mL output since surgery. Left pleural chest tube drained 500 mL of thin serosanguineous drainage in the last 8 hours and 900 mL output since surgery. Left arm REENA drain remains in place with 10 mL of thin scant drainage in the last 8 hours. Chest x-ray and laboratory results were reviewed. Objective - Vital Signs Vital signs: Vital Signs Temp 98.1 F 04/29/25 04:00 Pulse 84 04/29/25 07:00 Resp 18 04/29/25 07:00 BP 87/55 04/29/25 07:00 Pulse Ox 99 04/29/25 07:00 FiO2 45 04/28/25 16:20 Intake & Output 04/28/25 04/29/25 04/29/25 18:59 06:59 18:59 Intake Total 2068.082 1053.258 59 Output Total 2545 1625 120 Balance -476.918 -571.742 -61 Weight 74.6 kg Intake: IV 1119 1048 59 0.9 @ 50 200 600 50 ACETAMINOPHEN IV (For NPO 400 ) 1,000 mg In Empty Bag 1 bag @ 400 mls/hr IVPB Q6H PITO Rx#:[id number] Albumin Human 5% 250 ml 250 250 In Empty Bag 1 bag @ 250 mls/hr IVPB Q1HR PRN Rx#: [id number] CO/CI 80 90 Pressure Bags 36 108 9 ceFAZolin 2 gm In 100 Dextrose 5% in Water 50 ml @ 100 mls/hr IVPB Q8HR PITO Rx#:[id number] Intake, IV Titration .082 5.258 Amount Insulin Regular 100 unit 5.258 In Sodium Chloride 0.9% 100 ml @ Per Protocol IV .Q0M PITO Rx#:[id number] propofoL 1,000 mg In 19.082 Empty Bag 1 bag @ Titrate IV .Q0M PITO Rx#: [id number] Blood Product 930 Rc As-1 Unit 310 [id number] Rc As-1 Unit 310 [id number] Rc As-1 Unit 310 [id number] Output: Chest Tube Drainage 340 770 80 L pleural 215 610 60 Medistinalx2 125 160 20 Drainage 60 40 Left Arm 60 40 Urine 1345 815 40 Estimated Blood Loss 800 Other: Voiding Method Indwelling Catheter Indwelling Catheter ABP, PAP, CO, CI - Last Documented Arterial Blood Pressure 105/44 Pulmonary Artery Pressure 40/18 Cardiac Output 5.4 Cardiac Index 2.9 - Exam CONSTITUTIONAL: Sitting up to the bedside chair in the intensive care unit, appears comfortable, cooperative, no apparent acute distress. HEENT: Neck is supple, no JVD, no lymphadenopathy. Right IJ Cordis and [place]- Reva catheter in place and functioning. RESPIRATORY: Lungs sounds essentially clear throughout, diminished to his bilateral bases. Respirations are symmetrical and nonlabored. Currently on 2 L nasal cannula with oxygen saturations 96%. Able to achieve 750mL on his incentive spirometry. Strong cough. CARDIOVASCULAR: Regular rhythm and rate. S1 and S2 present, negative for S3, g allop or murmur. Sternum is stable. Palpable peripheral pulses bilaterally. No calf pain or tenderness noted. Heart hugger in place with patient demonstrating appropriate use. Knee-high CAMI hose and sequential compression devices in place to his bilateral lower extremities. GASTROINTESTINAL: Abdomen soft, nontender, nondistended. Hypoactive bowel sounds present 4 quadrants. Tolerating clear liquid diet. Passing flatus. No guarding or rigidity. GENITOURINARY: Blake present draining clear, yellow urine. Urine output 560 mL in the last 8 hours. INTEGUMENTARY: Skin is warm and dry with no evidence of clubbing or cyanosis. Midline sternal incision clean dry and well approximated, covered with dry intact dressing. Right lower extremity EVH sites well approximated without redness or drainage. Left arm radial artery harvest sites clean, dry and approximated. No drainage or redness is present. NEUROLOGIC: Cranial nerves II through XII intact. No focal deficits. MUSKULOSKELETAL: Able to move all extremities, strength equal bilaterally, generalized weakness. Chronic weakness to his right knee. PSYCHIATRIC: Alert and oriented to person place and time, appropriate affect, intact judgment and insight. INVASIVE LINES AND TUBES: Mediastinal/left pleural chest tubes present and connected to low continuous wall suction, no air leaks present. Mediastinal tube with 110 mL of thin serosanguineous drainage overnight, 300 mL output in the last 24 hours. Left pleural chest tube with 500 mL of thin serosanguineous drainage overnight, 900 mL output in the last 24 hours. Atrial epicardial pacemaker wires present, connected to generator, VVI backup rate 50 bpm. Right internal jugular [place]/Cordis, right radial arterial line present. Last CO 5.4, CI 2.9, SVR 1065, PA 38/19 and CVP 13 mmHg. Left arm REENA drain in place with scant thin serosanguineous drainage, 10 mL output in the last 8 hours. - Allied health notes Allied health notes reviewed: nursing - Labs CBC & Chem 7: 04/29/25 03:00 04/29/25 03:00 Labs: Abnormal Lab Results - Last 24 Hours (Table) 04/22/25 04/28/25 04/28/25 Range/Units 14:10 08:27 10:47 RBC (4.40-5.60) 10*6/uL Hgb (13.0-17.0) g/dL Hct (39.6-50.0) % Plt Count (140-440) 10*3/uL MPV (9.5-12.2) fL Lymphocytes # (0.90-5.00) 10*3/uL Eosinophils # (0.04-0.35) 10*3/uL PT (10.0-12.5) sec INR (<1.2) ABG pH (7.35-7.45) ABG pO2 >420 H 195 H (83-108) mmHg ABG HCO3 26 H (21-25) mmol/L ABG Total CO2 (19-24) mmol/L ABG O2 Saturation >99.4 H 99.1 H (94-97) % ABG Hematocrit 24 L 20 L* (34.0-46.0) % ABG Potassium (3.4-4.5) mmol/L ABG Ionized Calcium (4.5-5.3) mg/dL ABG Glucose 114 H (75-99) mg/dL ABG Lactic Acid (0.5-1.6) mmol/L Hemoglobin 7.9 L 6.5 L* (13.0-17.5) gm/dL Chloride (98-107) mmol/L BUN (9-20) mg/dL Glucose (74-99) mg/dL POC Glucose (mg/dL) (70-110) mg/dL Calcium (8.4-10.2) mg/dL Alkaline Phosphatase (38-126) U/L Total Protein (6.3-8.2) g/dL Albumin (3.5-5.0) g/dL Arterial Blood Potassium (3.4-4.5) mmol/L Arterial Blood Glucose 114 H (75-99) mg/dL Crossmatch See Detail 04/28/25 04/28/25 04/28/25 Range/Units 12:00 12:02 12:35 RBC (4.40-5.60) 10*6/uL Hgb (13.0-17.0) g/dL Hct (39.6-50.0) % Plt Count (140-440) 10*3/uL MPV (9.5-12.2) fL Lymphocytes # (0.90-5.00) 10*3/uL Eosinophils # (0.04-0.35) 10*3/uL PT (10.0-12.5) sec INR (<1.2) ABG pH 7.33 L 7.34 L (7.35-7.45) ABG pO2 394 H 335 H 252 H (83-108) mmHg ABG HCO3 (21-25) mmol/L ABG Total CO2 (19-24) mmol/L ABG O2 Saturation >99.4 H >99.4 H >99.4 H (94-97) % ABG Hematocrit 24 L 24 L 22 L (34.0-46.0) % ABG Potassium 4.7 H (3.4-4.5) mmol/L ABG Ionized Calcium 4.3 L 4.3 L 4.3 L (4.5-5.3) mg/dL ABG Glucose 156 H 133 H 133 H (75-99) mg/dL ABG Lactic Acid (0.5-1.6) mmol/L Hemoglobin 7.9 L 7.9 L 7.1 L (13.0-17.5) gm/dL Chloride (98-107) mmol/L BUN (9-20) mg/dL Glucose (74-99) mg/dL POC Glucose (mg/dL) (70-110) mg/dL Calcium (8.4-10.2) mg/dL Alkaline Phosphatase (38-126) U/L Total Protein (6.3-8.2) g/dL Albumin (3.5-5.0) g/dL Arterial Blood Potassium 4.7 H (3.4-4.5) mmol/L Arterial Blood Glucose 156 H 133 H 133 H (75-99) mg/dL Crossmatch 04/28/25 04/28/25 04/28/25 Range/Units 13:01 14:08 14:52 RBC 2.83 L (4.40-5.60) 10*6/uL Hgb 8.2 L (13.0-17.0) g/dL Hct 24.7 L (39.6-50.0) % Plt Count 113 L D (140-440) 10*3/uL MPV 8.2 L (9.5-12.2) fL Lymphocytes # (0.90-5.00) 10*3/uL Eosinophils # (0.04-0.35) 10*3/uL PT (10.0-12.5) sec INR (<1.2) ABG pH (7.35-7.45) ABG pO2 340 H 394 H (83-108) mmHg ABG HCO3 (21-25) mmol/L ABG Total CO2 (19-24) mmol/L ABG O2 Saturation >99.4 H >99.4 H (94-97) % ABG Hematocrit 22 L 26 L (34.0-46.0) % ABG Potassium 4.9 H (3.4-4.5) mmol/L ABG Ionized Calcium 4.4 L (4.5-5.3) mg/dL ABG Glucose 139 H 132 H (75-99) mg/dL ABG Lactic Acid 1.7 H (0.5-1.6) mmol/L Hemoglobin 7.2 L 8.4 L (13.0-17.5) gm/dL Chloride (98-107) mmol/L BUN (9-20) mg/dL Glucose (74-99) mg/dL POC Glucose (mg/dL) (70-110) mg/dL Calcium (8.4-10.2) mg/dL Alkaline Phosphatase (38-126) U/L Total Protein (6.3-8.2) g/dL Albumin (3.5-5.0) g/dL Arterial Blood Potassium 4.9 H (3.4-4.5) mmol/L Arterial Blood Glucose 139 H 132 H (75-99) mg/dL Crossmatch 04/28/25 04/28/25 04/28/25 Range/Units 14:52 14:52 15:19 RBC (4.40-5.60) 10*6/uL Hgb (13.0-17.0) g/dL Hct (39.6-50.0) % Plt Count (140-440) 10*3/uL MPV (9.5-12.2) fL Lymphocytes # (0.90-5.00) 10*3/uL Eosinophils # (0.04-0.35) 10*3/uL PT 14.2 H (10.0-12.5) sec INR 1.4 H (<1.2) ABG pH (7.35-7.45) ABG pO2 369 H (83-108) mmHg ABG HCO3 (21-25) mmol/L ABG Total CO2 25 H (19-24) mmol/L ABG O2 Saturation 100.0 H (94-97) % ABG Hematocrit (34.0-46.0) % ABG Potassium (3.4-4.5) mmol/L ABG Ionized Calcium (4.5-5.3) mg/dL ABG Glucose (75-99) mg/dL ABG Lactic Acid (0.5-1.6) mmol/L Hemoglobin (13.0-17.5) gm/dL Chloride 110 H (98-107) mmol/L BUN 24 H (9-20) mg/dL Glucose (74-99) mg/dL POC Glucose (mg/dL) (70-110) mg/dL Calcium 8.3 L (8.4-10.2) mg/dL Alkaline Phosphatase 21 L (38-126) U/L Total Protein 5.1 L (6.3-8.2) g/dL Albumin 3.2 L (3.5-5.0) g/dL Arterial Blood Potassium (3.4-4.5) mmol/L Arterial Blood Glucose (75-99) mg/dL Crossmatch 04/28/25 04/28/25 04/28/25 Range/Units 17:00 17:50 17:55 RBC 2.93 L (4.40-5.60) 10*6/uL Hgb 8.6 L (13.0-17.0) g/dL Hct 25.6 L (39.6-50.0) % Plt Count 133 L (140-440) 10*3/uL MPV 8.6 L (9.5-12.2) fL Lymphocytes # (0.90-5.00) 10*3/uL Eosinophils # (0.04-0.35) 10*3/uL PT (10.0-12.5) sec INR (<1.2) ABG pH (7.35-7.45) ABG pO2 (83-108) mmHg ABG HCO3 (21-25) mmol/L ABG Total CO2 (19-24) mmol/L ABG O2 Saturation (94-97) % ABG Hematocrit (34.0-46.0) % ABG Potassium (3.4-4.5) mmol/L ABG Ionized Calcium (4.5-5.3) mg/dL ABG Glucose (75-99) mg/dL ABG Lactic Acid (0.5-1.6) mmol/L Hemoglobin (13.0-17.5) gm/dL Chloride (98-107) mmol/L BUN (9-20) mg/dL Glucose (74-99) mg/dL POC Glucose (mg/dL) 115 H 116 H (70-110) mg/dL Calcium (8.4-10.2) mg/dL Alkaline Phosphatase (38-126) U/L Total Protein (6.3-8.2) g/dL Albumin (3.5-5.0) g/dL Arterial Blood Potassium (3.4-4.5) mmol/L Arterial Blood Glucose (75-99) mg/dL Crossmatch 04/28/25 04/28/25 04/28/25 Range/Units 18:24 19:00 20:07 RBC (4.40-5.60) 10*6/uL Hgb (13.0-17.0) g/dL Hct (39.6-50.0) % Plt Count (140-440) 10*3/uL MPV (9.5-12.2) fL Lymphocytes # (0.90-5.00) 10*3/uL Eosinophils # (0.04-0.35) 10*3/uL PT (10.0-12.5) sec INR (<1.2) ABG pH 7.33 L (7.35-7.45) ABG pO2 148 H (83-108) mmHg ABG HCO3 (21-25) mmol/L ABG Total CO2 (19-24) mmol/L ABG O2 Saturation 100.0 H (94-97) % ABG Hematocrit (34.0-46.0) % ABG Potassium (3.4-4.5) mmol/L ABG Ionized Calcium (4.5-5.3) mg/dL ABG Glucose (75-99) mg/dL ABG Lactic Acid (0.5-1.6) mmol/L Hemoglobin (13.0-17.5) gm/dL Chloride (98-107) mmol/L BUN (9-20) mg/dL Glucose (74-99) mg/dL POC Glucose (mg/dL) 127 H 128 H (70-110) mg/dL Calcium (8.4-10.2) mg/dL Alkaline Phosphatase (38-126) U/L Total Protein (6.3-8.2) g/dL Albumin (3.5-5.0) g/dL Arterial Blood Potassium (3.4-4.5) mmol/L Arterial Blood Glucose (75-99) mg/dL Crossmatch 04/28/25 04/28/25 04/28/25 Range/Units 20:10 21:05 22:04 RBC 2.79 L (4.40-5.60) 10*6/uL Hgb 8.1 L (13.0-17.0) g/dL Hct 24.3 L (39.6-50.0) % Plt Count 135 L (140-440) 10*3/uL MPV 8.5 L (9.5-12.2) fL Lymphocytes # 0.62 L (0.90-5.00) 10*3/uL Eosinophils # (0.04-0.35) 10*3/uL PT (10.0-12.5) sec INR (<1.2) ABG pH (7.35-7.45) ABG pO2 (83-108) mmHg ABG HCO3 (21-25) mmol/L ABG Total CO2 (19-24) mmol/L ABG O2 Saturation (94-97) % ABG Hematocrit (34.0-46.0) % ABG Potassium (3.4-4.5) mmol/L ABG Ionized Calcium (4.5-5.3) mg/dL ABG Glucose (75-99) mg/dL ABG Lactic Acid (0.5-1.6) mmol/L Hemoglobin (13.0-17.5) gm/dL Chloride (98-107) mmol/L BUN (9-20) mg/dL Glucose (74-99) mg/dL POC Glucose (mg/dL) 125 H 119 H (70-110) mg/dL Calcium (8.4-10.2) mg/dL Alkaline Phosphatase (38-126) U/L Total Protein (6.3-8.2) g/dL Albumin (3.5-5.0) g/dL Arterial Blood Potassium (3.4-4.5) mmol/L Arterial Blood Glucose (75-99) mg/dL Crossmatch 04/28/25 04/29/25 04/29/25 Range/Units 23:10 00:08 01:08 RBC (4.40-5.60) 10*6/uL Hgb (13.0-17.0) g/dL Hct (39.6-50.0) % Plt Count (140-440) 10*3/uL MPV (9.5-12.2) fL Lymphocytes # (0.90-5.00) 10*3/uL Eosinophils # (0.04-0.35) 10*3/uL PT (10.0-12.5) sec INR (<1.2) ABG pH (7.35-7.45) ABG pO2 (83-108) mmHg ABG HCO3 (21-25) mmol/L ABG Total CO2 (19-24) mmol/L ABG O2 Saturation (94-97) % ABG Hematocrit (34.0-46.0) % ABG Potassium (3.4-4.5) mmol/L ABG Ionized Calcium (4.5-5.3) mg/dL ABG Glucose (75-99) mg/dL ABG Lactic Acid (0.5-1.6) mmol/L Hemoglobin (13.0-17.5) gm/dL Chloride (98-107) mmol/L BUN (9-20) mg/dL Glucose (74-99) mg/dL POC Glucose (mg/dL) 111 H 117 H 127 H (70-110) mg/dL Calcium (8.4-10.2) mg/dL Alkaline Phosphatase (38-126) U/L Total Protein (6.3-8.2) g/dL Albumin (3.5-5.0) g/dL Arterial Blood Potassium (3.4-4.5) mmol/L Arterial Blood Glucose (75-99) mg/dL Crossmatch 04/29/25 04/29/25 04/29/25 Range/Units 02:21 02:59 03:00 RBC 2.72 L (4.40-5.60) 10*6/uL Hgb 7.7 L (13.0-17.0) g/dL Hct 23.8 L (39.6-50.0) % Plt Count 138 L (140-440) 10*3/uL MPV 8.5 L (9.5-12.2) fL Lymphocytes # 0.53 L (0.90-5.00) 10*3/uL Eosinophils # 0.01 L (0.04-0.35) 10*3/uL PT (10.0-12.5) sec INR (<1.2) ABG pH (7.35-7.45) ABG pO2 (83-108) mmHg ABG HCO3 (21-25) mmol/L ABG Total CO2 (19-24) mmol/L ABG O2 Saturation (94-97) % ABG Hematocrit (34.0-46.0) % ABG Potassium (3.4-4.5) mmol/L ABG Ionized Calcium (4.5-5.3) mg/dL ABG Glucose (75-99) mg/dL ABG Lactic Acid (0.5-1.6) mmol/L Hemoglobin (13.0-17.5) gm/dL Chloride (98-107) mmol/L BUN (9-20) mg/dL Glucose (74-99) mg/dL POC Glucose (mg/dL) 132 H 128 H (70-110) mg/dL Calcium (8.4-10.2) mg/dL Alkaline Phosphatase (38-126) U/L Total Protein (6.3-8.2) g/dL Albumin (3.5-5.0) g/dL Arterial Blood Potassium (3.4-4.5) mmol/L Arterial Blood Glucose (75-99) mg/dL Crossmatch 04/29/25 04/29/25 04/29/25 Range/Units 03:00 03:58 05:06 RBC (4.40-5.60) 10*6/uL Hgb (13.0-17.0) g/dL Hct (39.6-50.0) % Plt Count (140-440) 10*3/uL MPV (9.5-12.2) fL Lymphocytes # (0.90-5.00) 10*3/uL Eosinophils # (0.04-0.35) 10*3/uL PT (10.0-12.5) sec INR (<1.2) ABG pH (7.35-7.45) ABG pO2 (83-108) mmHg ABG HCO3 (21-25) mmol/L ABG Total CO2 (19-24) mmol/L ABG O2 Saturation (94-97) % ABG Hematocrit (34.0-46.0) % ABG Potassium (3.4-4.5) mmol/L ABG Ionized Calcium (4.5-5.3) mg/dL ABG Glucose (75-99) mg/dL ABG Lactic Acid (0.5-1.6) mmol/L Hemoglobin (13.0-17.5) gm/dL Chloride (98-107) mmol/L BUN 25 H (9-20) mg/dL Glucose 112 H (74-99) mg/dL POC Glucose (mg/dL) 120 H 122 H (70-110) mg/dL Calcium (8.4-10.2) mg/dL Alkaline Phosphatase 30 L (38-126) U/L Total Protein 5.5 L (6.3-8.2) g/dL Albumin (3.5-5.0) g/dL Arterial Blood Potassium (3.4-4.5) mmol/L Arterial Blood Glucose (75-99) mg/dL Crossmatch 04/29/25 Range/Units 06:56 RBC (4.40-5.60) 10*6/uL Hgb (13.0-17.0) g/dL Hct (39.6-50.0) % Plt Count (140-440) 10*3/uL MPV (9.5-12.2) fL Lymphocytes # (0.90-5.00) 10*3/uL Eosinophils # (0.04-0.35) 10*3/uL PT (10.0-12.5) sec INR (<1.2) ABG pH (7.35-7.45) ABG pO2 (83-108) mmHg ABG HCO3 (21-25) mmol/L ABG Total CO2 (19-24) mmol/L ABG O2 Saturation (94-97) % ABG Hematocrit (34.0-46.0) % ABG Potassium (3.4-4.5) mmol/L ABG Ionized Calcium (4.5-5.3) mg/dL ABG Glucose (75-99) mg/dL ABG Lactic Acid (0.5-1.6) mmol/L Hemoglobin (13.0-17.5) gm/dL Chloride (98-107) mmol/L BUN (9-20) mg/dL Glucose (74-99) mg/dL POC Glucose (mg/dL) 129 H (70-110) mg/dL Calcium (8.4-10.2) mg/dL Alkaline Phosphatase (38-126) U/L Total Protein (6.3-8.2) g/dL Albumin (3.5-5.0) g/dL Arterial Blood Potassium (3.4-4.5) mmol/L Arterial Blood Glucose (75-99) mg/dL Crossmatch - Imaging and Cardiology Chest x-ray: report reviewed, image reviewed Assessment and Plan Assessment: Triple-vessel coronary artery disease, status post PCI to his right and circumflex system, status post three-vessel coronary artery bypass grafting surgery Paroxysmal atrial fibrillation, status post exclusion of the left atrial appendage and bilateral pulmonary vein isolation using radiofrequency bipolar clamp from [employer] Postoperative acute blood loss anemia, expected due to his history of anemia and to cardiopulmonary bypass and hemodilution Hypertension Hyperlipidemia, treated Remote history of inferior wall myocardial infarction Moderate left ventricular dysfunction Diabetes mellitus type 2, preoperative hemoglobin A1c 7.7% Hypothyroidism History of sepsis bacteremia in 2023 History of rhabdomyolysis in September 2024 History of acute kidney injury secondary to septic shock and rhabdomyolysis in September 2024 History of EtOH abuse, quit drinking in September 2024 Remote history of nicotine dependence GERD Osteoarthritis Plan: Continue to maximize medical therapy with aspirin, statin, Plavix, and beta- katja, will increase beta-katja therapy as tolerated. Discontinue IV nitroglycerin drip. We will start calcium channel katja when blood pressure able to tolerate for radial artery spasm prophylaxis. Give albumin 250 mL IV piggyback x 1 now. Wean as tolerated, bronchodilator management per pulmonary/critical care medicine. Encourage incentive spirometry use 10 times every hour while awake. Increase activity as tolerated, PT/OT/cardiac rehab consulted. Will monitor daily labs and chest x-rays, electrolyte replacement per protocol. GI/DVT prophylaxis. Pain control per current medication regimen. Discontinue oxycodone, start [place] 5/325 mg 1 to 2 tablets p.o. every 4 hours as needed pain Insulin management per internal medicine, patient should remain on IV continuous insulin for 48 hours, then may transition to subcutaneous insulin per protocol. Preoperative hemoglobin A1c 7.7%. Will remove right IJ [place], keep right IJ cordis in place with continuous CVP monitoring. Keep right radial arterial line for now. Remove left arm REENA drain. Continue mediastinal and left pleural chest tube, monitor and record output. Continue Blake catheter for another 24 hours, continue to monitor strict accurate intake and output. Patient's home meds of vitamin D, ferrous sulfate, levothyroxine sodium, magnesium oxide and Protonix have been restarted. More recommendations to follow based on patient's clinical course. Time with Patient: Greater than 30
[2025-04-29] MEDS: AMIODARONE 200 MG TAB PO SCH (08:44)
[2025-04-29] MEDS: ASPIRIN 325 MG TAB PO SCH (08:44)
[2025-04-29] MEDS: ATORVASTATIN 40 MG TAB PO SCH (08:44)
[2025-04-29] MEDS: PANTOPRAZOLE 40 MG/10 ML VIAL IVP SCH (08:44)
[2025-04-29] MEDS: METOPROLOL TARTRATE 12.5 MG TAB PO SCH (08:44)
[2025-04-29] MEDS: CHOLECALCIFEROL 25 MCG (1000 IU) TABLET PO SCH (08:45)
[2025-04-29] MEDS: MAGNESIUM OXIDE 400 MG TAB PO SCH (08:45)
[2025-04-29] MEDS: CLOPIDOGREL 75 MG TAB PO SCH (08:45)
[2025-04-29] MEDS: FERROUS SULFATE 325 MG TAB PO SCH (08:46)
[2025-04-29] MEDS ORDERED: MAGNESIUM HYDROXIDE 2,400 MG/30 ML CUP PO PRN (09:00)
[2025-04-29] MEDS ORDERED: bisacodyL 10 MG SUPP RECTAL PRN (09:00)
[2025-04-29] MEDS ORDERED: PANTOPRAZOLE 40 MG TABLET PO SCH (09:00)
[2025-04-29 09:06] LABS: Glucose,Whole Blood 175 mg/dL (70-110)
[2025-04-29] MEDS: HYDROcodone/APAP 5-325MG 1 EACH TAB PO PRN ×2 (09:18→18:19)
[2025-04-29] MEDS: CALCIUM GLUCONATE IN NACL 1 GM in SALINE 1 100ML.BAG IVPB ONE (09:59)
[2025-04-29 10:06] LABS: Glucose,Whole Blood 145 mg/dL (70-110)
--- NOTE | 2025-04-29 10:20 | P.CRDCN ---
History of Present Illness Consult date: 04/29/25 History of present illness: - . HPI: This is a 65-year-old gentleman with a known history of CAD remote inferior wall HI with previous PCI to RCA and circumflex. He underwent cardiac cath which revealed severe triple-vessel calcified disease was advised bypass surgery which was performed yesterday with a GEIGER to LAD, left free radial artery graft from the aorta to obtuse marginal branch of circumflex, vein graft from the aorta to the distal aspect of the PDA branch of RCA. He is in sinus rhythm doing well hemodynamically stable somewhat seems to be volume depleted he is going to probably get some albumin. Complains of a lot of incisional pain and his hypotension would be related to his pain medications also.. RELEVANT PAST MEDICAL HISTORY: History of CAD prior PCI, hypertension diabetes hyperlipidemia and degenerative joint disease. MEDICATIONS: See chart ALLERGIES: HR. REVIEW OF SYSTEMS:. PHYSICIAL EXAM: Vitals are stable no JVD S1-S2 heard normally has some pleuritic pain lungs reveal diminished air entry abdomen is soft lower extremities reveal diminished pulses Central nervous system is normal. IMPRESSION: 1. Status post aortocoronary bypass surgery postop day 1. 2. Type 2 diabetes mellitus. 3. CAD with prior PCI. 4.. 5.. RECOMMENDATIONS: Agree with some volume he will be receiving albumin continue current medications wean off the pain medications continue incentive spirometry and pulmonary toilet.. Past Medical History Past Medical History: Atrial Fibrillation, Coronary Artery Disease (CAD), Diabetes Mellitus, GERD/Reflux, Hyperlipidemia, Hypertension, Myocardial Infarction (HI), Osteoarthritis (OA), Renal Disease, Thyroid Disorder Additional Past Medical History / Comment(s): arthritis in fingers, knees, and neck area; NT in bilat arms, in [facility] in Nov[facility] 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 while in hospital, recent stress test, wore a monitor recently, right knee bone on bone-using w/c because of it, possible sleep apnea, right arm numb-poss. carpal tunnel, neuropathy to hands and feet. mild edema to left foot. Last Myocardial Infarction Date:: 2009 History of Any Multi-Drug Resistant Organisms: None Reported Past Surgical History: Heart Catheterization With Stent, Orthopedic Surgery Additional Past Surgical History / Comment(s): ANAL FISSURE REPAIR, 2 cardiac stents, bhargavi cataracts. Pain proc , arthroscopic right knee surg., cervical fusion Past Anesthesia/Blood Transfusion Reactions: No Reported Reaction Additional Past Anesthesia/Blood Transfusion Reaction / Comment(s): possible blood transfusion with with rt knee sepsis no issues per spouse. Date of Last Stent Placement:: 2015 Smoking Status: Former smoker - Past Family History Father Family Medical History: Cancer Additional Family Medical History / Comment(s): PANCREATIC Mother Family Medical History: Liver Disease Additional Family Medical History / Comment(s): Nonalcoholic fatty liver disease Medications and Allergies Home Medications Medication Instructions Recorded Confirmed Type Aspirin [Adult Low Dose Aspirin EC] 81 mg PO DAILY 08/29/18 04/28/25 History Atorvastatin [Lipitor] 40 mg PO DAILY tab 11/11/24 04/28/25 Rx Cholecalciferol [Vitamin D3 (25 100 mcg PO DAILY tab 11/11/24 04/28/25 Rx Mcg = 1000 Iu)] INSULIN ASPART (NovoLOG) [NovoLOG 0 unit SQ ACHS each 11/11/24 04/28/25 Rx (formulary)] Empagliflozin [Jardiance] 10 mg PO DAILY 02/26/25 04/28/25 History Insulin Glargine,Hum.rec.anlog 5 - 10 units SQ HS 02/26/25 04/28/25 History [Lantus Solostar Pen] Insulin Glargine,Hum.rec.anlog 20 units SQ DAILY 02/26/25 04/28/25 History [Lantus Solostar Pen] Magnesium Oxide [Mag-Ox] 400 mg PO DAILY 02/26/25 04/28/25 History Metoprolol Tartrate [Lopressor] 50 mg PO DAILY 02/26/25 04/28/25 History Pantoprazole [Protonix] 40 mg PO DAILY 02/26/25 04/28/25 History ramipriL [Altace] 2.5 mg PO DAILY 02/26/25 04/28/25 History Unk Milk Thistle 1 tab PO DAILY 04/22/25 04/28/25 History Ferrous Sulfate [Feosol] 325 mg PO DAILY 04/22/25 04/28/25 History Fish Oil/Dha/Epa [Fish Oil 1,200 1 each PO HS 04/22/25 04/28/25 History mg Fish Oil] Hydrocodone/Acetaminophen 1 tab PO BID PRN 04/22/25 04/28/25 History [Hydrocodone/Acetaminophen 7.5-325] Levothyroxine Sodium [Synthroid] 50 mcg PO DAILY 04/22/25 04/28/25 History Tumeric 500mg 1 tab PO DAILY 04/22/25 04/28/25 History Vitamin B12 1 dose PO DAILY 04/22/25 04/28/25 History Mupirocin [Mupirocin 2%] 1 applic NASAL BID #1 tub 04/24/25 04/28/25 Rx Allergies Allergy/AdvReac Type Severity Reaction Status Date / Time No Known Allergies Allergy Verified 04/28/25 05:51 Physical Exam Vitals: Vital Signs Temp Pulse Resp BP Pulse Ox FiO2 04/29/25 10:00 86 17 100 04/29/25 09:30 90 12 100 04/29/25 09:00 91 26 H 99 04/29/25 08:30 88 19 105/62 100 04/29/25 08:13 89 04/29/25 08:00 98.2 F 92 18 79/53 100 04/29/25 07:59 88 04/29/25 07:30 90 27 H 98 04/29/25 07:00 84 18 87/55 99 04/29/25 06:30 90 20 96 04/29/25 06:00 80 18 100 04/29/25 05:30 78 15 100 04/29/25 05:00 78 14 100 04/29/25 04:30 74 17 100 04/29/25 04:00 98.1 F 77 16 100 04/29/25 03:30 82 14 100 04/29/25 03:00 80 14 100 04/29/25 02:30 80 18 100 04/29/25 02:00 98.1 F 80 19 100 04/29/25 01:30 80 16 100 04/29/25 01:00 80 10 L 100 04/29/25 00:30 80 0 L 100 04/29/25 00:00 97.9 F 89 10 L 99 04/28/25 23:30 84 7 L 97 04/28/25 23:13 88 0 L 100 04/28/25 23:00 92 16 100 04/28/25 22:30 89 17 99 04/28/25 22:00 84 16 99 04/28/25 21:30 93 12 127/75 100 04/28/25 21:00 98.4 F 92 16 100 04/28/25 20:30 85 13 100 04/28/25 20:02 89 04/28/25 20:00 89 17 127/75 100 04/28/25 19:48 85 04/28/25 19:30 87 20 86/60 100 04/28/25 19:00 84 11 L 100 04/28/25 18:50 82 15 100 04/28/25 18:46 100 04/28/25 18:40 81 14 04/28/25 18:30 80 17 100 04/28/25 18:20 79 14 100 04/28/25 18:10 75 7 L 100 04/28/25 18:00 73 19 100 04/28/25 17:50 66 7 L 100 04/28/25 17:40 76 14 100 04/28/25 17:30 77 11 L 100 04/28/25 17:20 77 12 100 04/28/25 17:10 76 12 100 04/28/25 17:00 73 12 100 04/28/25 16:50 77 14 100 04/28/25 16:40 73 15 100 04/28/25 16:30 73 18 100 04/28/25 16:20 72 14 100 45 04/28/25 16:15 45 04/28/25 16:10 36.1 F L 75 19 100 100 04/28/25 16:00 75 15 45 04/28/25 15:50 78 12 04/28/25 15:40 77 12 100 04/28/25 15:33 78 04/28/25 15:30 75 4 L 100 04/28/25 15:26 76 04/28/25 15:20 76 13 04/28/25 15:10 76 17 04/28/25 15:00 74 17 04/28/25 14:50 74 18 100 04/28/25 14:46 100 04/28/25 13:27 100 Intake and Output 04/28/25 04/29/25 04/29/25 22:59 06:59 14:59 Intake Total 1621.082 517.258 347.767 Output Total 1390 1180 245 Balance 231.082 -662.742 102.767 Intake: IV 1602 512 236 0.9 @ 50 400 400 200 ACETAMINOPHEN IV (For NPO 400 ) 1,000 mg In Empty Bag 1 bag @ 400 mls/hr IVPB Q6H [facility] Rx#:[id number] Albumin Human 5% 250 ml 500 In Empty Bag 1 bag @ 250 mls/hr IVPB Q1HR PRN Rx#: [id number] CO/CI 130 40 Pressure Bags 72 72 36 ceFAZolin 2 gm In 100 Dextrose 5% in Water 50 ml @ 100 mls/hr IVPB Q8HR [facility] Rx#:[id number] Intake, IV Titration 19.082 5.258 11.767 Amount Insulin Regular 100 unit 5.258 11.767 In Sodium Chloride 0.9% 100 ml @ Per Protocol IV .Q0M [facility] Rx#:[id number] propofoL 1,000 mg In 19.082 Empty Bag 1 bag @ Titrate IV .Q0M [facility] Rx#: [id number] Oral 100 Output: Chest Tube Drainage 500 610 130 L pleural 325 500 90 Medistinalx2 175 110 40 Drainage 90 10 Left Arm 90 10 Urine 800 560 115 Other: Voiding Method Indwelling Catheter Indwelling Catheter Indwelling Catheter Weight 74.6 kg ABP, PAP, CO, CI - Last 8 Hours Arterial Blood Pressure 108/45 Arterial Blood Pressure 121/48 Arterial Blood Pressure 135/46 Arterial Blood Pressure 126/47 Arterial Blood Pressure 102/47 Arterial Blood Pressure 110/45 Arterial Blood Pressure 105/44 Arterial Blood Pressure 121/50 Arterial Blood Pressure 116/50 Arterial Blood Pressure 115/45 Arterial Blood Pressure 121/49 Arterial Blood Pressure 125/54 Arterial Blood Pressure 128/55 Arterial Blood Pressure 117/51 Arterial Blood Pressure 121/51 Arterial Blood Pressure 131/52 Pulmonary Artery Pressure 33/15 Pulmonary Artery Pressure 37/19 Pulmonary Artery Pressure 41/12 Pulmonary Artery Pressure 37/11 Pulmonary Artery Pressure 35/14 Pulmonary Artery Pressure 40/16 Pulmonary Artery Pressure 40/18 Pulmonary Artery Pressure 46/20 Pulmonary Artery Pressure 43/16 Pulmonary Artery Pressure 34/9 Pulmonary Artery Pressure 34/9 Pulmonary Artery Pressure 32/9 Pulmonary Artery Pressure 34/9 Pulmonary Artery Pressure 31/11 Pulmonary Artery Pressure 29/12 Pulmonary Artery Pressure 34/10 Cardiac Output 5.5 Cardiac Output 5.4 Cardiac Index 2.9 Cardiac Index 2.9 Results 04/29/25 03:00 04/29/25 03:00 Cardiac Enzymes 04/28/25 04/29/25 Range/Units 14:52 03:00 AST 27 39 (17-59) U/L Coagulation 04/28/25 Range/Units 14:52 PT 14.2 H (10.0-12.5) sec APTT 29.8 (22.0-30.0) sec CBC 04/28/25 04/28/25 04/28/25 Range/Units 14:52 17:55 20:10 WBC 7.24 7.52 6.81 (4.50-10.00) 10*3/uL RBC 2.83 L 2.93 L 2.79 L (4.40-5.60) 10*6/uL Hgb 8.2 L 8.6 L 8.1 L (13.0-17.0) g/dL Hct 24.7 L 25.6 L 24.3 L (39.6-50.0) % Plt Count 113 L D 133 L 135 L (140-440) 10*3/uL 04/29/25 Range/Units 03:00 WBC 7.00 (4.50-10.00) 10*3/uL RBC 2.72 L (4.40-5.60) 10*6/uL Hgb 7.7 L (13.0-17.0) g/dL Hct 23.8 L (39.6-50.0) % Plt Count 138 L (140-440) 10*3/uL Comprehensive Metabolic Panel 04/28/25 04/29/25 Range/Units 14:52 03:00 Sodium 141 138 (137-145) mmol/L Potassium 4.2 4.8 (3.5-5.1) mmol/L Chloride 110 H 105 (98-107) mmol/L Carbon Dioxide 23 22 (22-30) mmol/L BUN 24 H 25 H (9-20) mg/dL Creatinine 1.08 1.16 (0.66-1.25) mg/dL Glucose 96 112 H (74-99) mg/dL Calcium 8.3 L 8.8 (8.4-10.2) mg/dL AST 27 39 (17-59) U/L ALT 9 9 (4-49) U/L Alkaline Phosphatase 21 L 30 L (38-126) U/L Total Protein 5.1 L 5.5 L (6.3-8.2) g/dL Albumin 3.2 L 3.5 (3.5-5.0) g/dL Current Medications Generic Name Dose Route Start Last Admin Trade Name Freq PRN Reason Stop Dose Admin Hydrocodone Bitart/Acetaminophen 1 each 04/29/25 07:58 Hydrocodone/Apap 5-325mg 1 Each Tab PO Q4HR PRN Mild to Moderate Pain (1 - 6) Hydrocodone Bitart/Acetaminophen 2 each 04/29/25 07:58 04/29/25 09:18 Hydrocodone/Apap 5-325mg 1 Each Tab PO 2 each Q4HR PRN Administration Moderate to Severe Pain (4-10) Albuterol/Ipratropium 3 ml 04/28/25 14:23 Ipratropium-Albuterol 3 Ml Neb INHALATION RT-Q2H PRN Shortness Of Breath Or Wheezing Albuterol/Ipratropium 3 ml 04/28/25 20:00 04/29/25 07:59 Ipratropium-Albuterol 3 Ml Neb INHALATION 3 ml RT-QID [facility] Administration Amiodarone HCl 400 mg 04/29/25 09:00 04/29/25 08:44 Amiodarone 200 Mg Tab PO 400 mg BID [facility] Administration Aspirin 325 mg 04/29/25 09:00 04/29/25 08:44 Aspirin 325 Mg Tab PO 325 mg DAILY [facility] Administration Atorvastatin Calcium 40 mg 04/29/25 09:00 04/29/25 08:44 Atorvastatin 40 Mg Tab PO 40 mg DAILY [facility] Administration Benzocaine/Menthol 1 each 04/28/25 14:23 Benzocaine/Menthol Lozeng 1 Each Lozenge MUCOUS MEM Q2H PRN Sore Throat Bisacodyl 10 mg 04/29/25 09:00 Bisacodyl 10 Mg Supp RECTAL DAILY PRN Constipation Cholecalciferol 100 mcg 04/29/25 09:00 04/29/25 08:45 Cholecalciferol 25 Mcg (1000 Iu) Tablet PO 100 mcg DAILY [facility] Administration Clopidogrel Bisulfate 75 mg 04/29/25 09:00 04/29/25 08:45 Clopidogrel 75 Mg Tab PO 75 mg DAILY [facility] Administration Dextrose/Water 25 ml 04/28/25 14:23 Dextrose 50% Syringe 50 Ml IVP PER PROTOCOL PRN Hypoglycemia Protocol Dextrose/Water 50 ml 04/28/25 14:23 Dextrose 50% Syringe 50 Ml IVP PER PROTOCOL PRN Hypoglycemia Protocol Ferrous Sulfate 325 mg 04/29/25 09:00 04/29/25 08:46 Ferrous Sulfate 325 Mg Tab PO 325 mg DAILY [facility] Administration Heparin Sodium (Porcine) 5,000 unit 04/28/25 16:00 04/29/25 08:44 Heparin Sodium,Porcine 5,000 Unit/Ml 1 Ml Vial SQ 5,000 unit Q8HR [facility] Administration Hydralazine HCl 10 mg 04/28/25 14:23 Hydralazine Hcl 20 Mg/Ml 1 Ml Vial IVP Q1H PRN Blood Pressure - High Amiodarone HCl 150 mg/ 103 mls @ 618 mls/hr 04/28/25 14:23 Dextrose/Water IV .Q10M PRN A.FIB/FLUTTER Protocol Amiodarone HCl 360 mg/ 207.2 mls @ 34.533 mls/hr 04/28/25 14:23 Dextrose/Water IV .Q6H PRN A.FIB/FLUTTER Protocol 1 MG/MIN Amiodarone HCl 450 mg/ 250 mls @ 16.667 mls/hr 04/28/25 14:23 Dextrose/Water IV .Q15H PRN A.FIB/FLUTTER Protocol 0.5 MG/MIN Albumin Human 250 ml/ IV 250 mls @ 250 mls/hr 04/28/25 14:23 04/29/25 08:42 Solution IVPB 04/30/25 14:22 250 mls/hr Q1HR PRN Administration For Volume Protocol Calcium Gluconate/Sodium 100 mls @ 100 mls/hr 04/28/25 14:23 Chloride 2 gm/ IV Solution IVPB 05/28/25 14:22 ONCE PRN Ionized Calcium less than 4.4 Insulin Human Regular 100 unit 101 mls @ 0 mls/hr 04/28/25 14:23 04/29/25 10:05 / Sodium Chloride IV 2.5 mls/hr .Q0M [facility] 2.5 mls/hr Titration Protocol Per Protocol Sodium Chloride 1,000 mls @ 20 mls/hr 04/28/25 14:23 04/28/25 14:57 Saline 0.9% IV 50 mls/hr .Q24H [facility] Administration Calcium Gluconate/Sodium 100 mls @ 100 mls/hr 04/29/25 10:00 04/29/25 09:59 Chloride 1 gm/ IV Solution IVPB 04/29/25 10:59 100 mls/hr ONCE ONE Administration Levothyroxine Sodium 50 mcg 04/29/25 06:30 04/29/25 06:43 Levothyroxine 50 Mcg Tab PO 50 mcg DAILY@0630 [facility] Administration Magnesium Hydroxide 2,400 mg 04/29/25 09:00 Magnesium Hydroxide 2,400 Mg/30 Ml Cup PO BID PRN Constipation Magnesium Oxide 400 mg 04/29/25 09:00 04/29/25 08:45 Magnesium Oxide 400 Mg Tab PO 400 mg DAILY [facility] Administration Metoclopramide HCl 10 mg 04/28/25 14:23 Metoclopramide 5 Mg/Ml 2 Ml Vial IVP Q4H PRN Nausea And Vomiting Metoprolol Tartrate 12.5 mg 04/29/25 09:00 04/29/25 08:44 Metoprolol Tartrate 12.5 Mg Tab PO 12.5 mg BID [facility] Administration Miscellaneous Information 1 each 04/28/25 14:23 Potassium Replacement Protocol 1 Each Misc MISCELLANE DAILY PRN Per Protocol Protocol Miscellaneous Information 1 each 04/28/25 14:23 Magnesium Replacement Protocol 1 Each Misc MISCELLANE DAILY PRN Per Protocol Protocol Miscellaneous Information 1 each 04/28/25 14:23 Phosphorus Replacement Protoco 1 Each Misc MISCELLANE DAILY PRN Per Protocol Protocol Miscellaneous Information 1 each 04/29/25 03:40 Magnesium Replacement Protocol 1 Each Misc MISCELLANE DAILY PRN Per Protocol Protocol Mupirocin 1 applic 04/28/25 21:00 04/29/25 08:32 Mupirocin 2% Oint 22 Gm Tube NASAL 05/01/25 20:59 1 applic BID [facility] Administration Ondansetron HCl 4 mg 04/28/25 14:23 04/28/25 21:58 Ondansetron 4 Mg/2 Ml Vial IVP 4 mg Q6HR PRN Administration Nausea And Vomiting Pantoprazole Sodium 40 mg 04/30/25 07:30 Pantoprazole 40 Mg Tablet PO [id number] [facility] Senna/Docusate Sodium 2 each 04/29/25 21:00 Sennosides-Docusate Sodium 1 Each Tab PO HS [facility] Sodium Chloride 10 ml 04/28/25 21:00 04/29/25 08:47 Sodium Chloride 0.9% Flush 10 Ml Syringe IV 10 ml BID [facility] Administration Intake and Output 04/28/25 04/29/25 04/29/25 22:59 06:59 14:59 Intake Total 1621.082 517.258 347.767 Output Total 1390 1180 245 Balance 231.082 -662.742 102.767 Intake: IV 1602 512 236 0.9 @ 50 400 400 200 ACETAMINOPHEN IV (For NPO 400 ) 1,000 mg In Empty Bag 1 bag @ 400 mls/hr IVPB Q6H [facility] Rx#:[id number] Albumin Human 5% 250 ml 500 In Empty Bag 1 bag @ 250 mls/hr IVPB Q1HR PRN Rx#: [id number] CO/CI 130 40 Pressure Bags 72 72 36 ceFAZolin 2 gm In 100 Dextrose 5% in Water 50 ml @ 100 mls/hr IVPB Q8HR [facility] Rx#:[id number] Intake, IV Titration 19.082 5.258 11.767 Amount Insulin Regular 100 unit 5.258 11.767 In Sodium Chloride 0.9% 100 ml @ Per Protocol IV .Q0M [facility] Rx#:[id number] propofoL 1,000 mg In 19.082 Empty Bag 1 bag @ Titrate IV .Q0M [facility] Rx#: [id number] Oral 100 Output: Chest Tube Drainage 500 610 130 L pleural 325 500 90 Medistinalx2 175 110 40 Drainage 90 10 Left Arm 90 10 Urine 800 560 115 Other: Voiding Method Indwelling Catheter Indwelling Catheter Indwelling Catheter Weight 74.6 kg 04/29/25 03:00 04/29/25 03:00
[2025-04-29 11:14] LABS: Glucose,Whole Blood 110 mg/dL (70-110)
[2025-04-29 11:24] VITALS: BMI 23.6
--- NOTE | 2025-04-29 11:39 | P.PN ---
Subjective Progress Note Date: 04/29/25 Principal diagnosis: POD #1 triple-vessel coronary artery bypass grafting using the in situ left intramammary artery to the left anterior descending artery, left radial artery from the aorta to the obtuse marginal artery, reverse saphenous vein graft from the aorta to the very distal aspect of the posterior descending artery, bilateral pulmonary vein isolation using radiofrequency bipolar clamp from [employer], exclusion of the left atrial appendage using a 35mm, AtriClip, end oscopic harvesting of the left radial artery, endoscopic harvesting of the right greater saphenous vein from the lower leg, intraoperative graft flow measurements using the [employer] system, intraoperative transesophageal echocardiogram and epiaortic scanning. This is a 65-year-old male patient with a known history of hypertension, hyperlipidemia, diabetes mellitus, paroxysmal atrial fibrillation, chronic anemia, previous chronic tobacco dependence, previous alcohol abuse, marijuana use, coronary artery disease with previous stent placement. He was recently found to have calcified coronary artery disease with severe disease in the mid LAD, proximal and mid left circumflex, mid to distal RCA and was recommended coronary revascularization. He was brought in today electively for the surgery. He did undergo coronary artery bypass grafting utilizing the GEIGER to the LAD, left radial artery to the obtuse marginal artery, reverse saphenous vein graft to the distal aspect of the posterior descending artery. Clipping of the left atrial appendage. He is seen now in the intensive care unit intubated and on the mechanical ventilator. Current settings are assist-control mode at a rate of 12, tidal volume 500, FiO2 100% and a PEEP of 5. Arterial blood gases revealed a PO2 of 369, PCO2 of 36 and a pH of 7.43. FiO2 titrated down to 45% currently. White count 7.2. Hemoglobin 8.2. Platelets 113. Sodium 141. Potassium 4.2. Bicarb 23. BUN 24. Creatinine 1.08. Glucose 104. He is currently on a nitroglycerin drip at 5 mcg/min. Sedated on propofol at 30 mcg/kg/min. Normal saline at 50 mL/h. Cardiac output 4.1. Cardiac index 2.2. PA pressures 33/18. CVP 14. Chest x-ray reveals right lower lobe atelectatic changes. Very tiny left apical pneumothorax. Mediastinal and left sided chest tubes remain in place. Endotracheal tube 4 cm above the marvel. Nasogastric tube in place. Right Dugway-Reva catheter tip in the main pulmonary artery region. Pacer wires in place. He has been initiated on DuoNeb inhalations. Heparin for DVT prophylaxis. Patient was seen today on 04/29/2025, patient was extubated uneventfully yesterday, he is now on 2 L nasal cannula, patient is sitting in the bedside chair, fairly comfortable, he is complaining of some pain patient does have chronic pain syndrome and is mostly on narcotics on outpatient basis for chronic low back pain. Patient is now postoperative day #1, he is on IV fluid at 50 cc/h he is also on insulin, cardiac output is 5.5 cardiac index is 2.9, achieving 1000 cc on his incentive spirometry. Chest x-ray showed mostly right basilar atelectasis. Otherwise fairly unremarkable. Labs today were reviewed, WBC 7 hemoglobin 7.7 platelets 138, basic metabolic profile is normal creatinine is 1.16. Objective - Vital Signs Vital signs: Vital Signs Temp 98.2 F 04/29/25 08:00 Pulse 80 04/29/25 11:00 Resp 16 04/29/25 11:00 BP 105/62 04/29/25 08:30 Pulse Ox 99 04/29/25 11:00 FiO2 45 04/28/25 16:20 Intake & Output 04/28/25 04/29/25 04/29/25 18:59 06:59 18:59 Intake Total 2068.082 1053.258 629.642 Output Total 2545 1625 300 Balance -476.918 -571.742 329.642 Weight 74.6 kg 74.6 kg Intake: IV 1119 1048 515 0.9 @ 50 200 600 200 ACETAMINOPHEN IV (For NPO 400 ) 1,000 mg In Empty Bag 1 bag @ 400 mls/hr IVPB Q6H PITO Rx#:[id number] Albumin Human 5% 250 ml 250 250 250 In Empty Bag 1 bag @ 250 mls/hr IVPB Q1HR PRN Rx#: [id number] CO/CI 80 90 Pressure Bags 36 108 45 Sodium Chloride 0.9% 1, 20 000 ml @ 20 mls/hr IV . Q24H PITO Rx#:[id number] ceFAZolin 2 gm In 100 Dextrose 5% in Water 50 ml @ 100 mls/hr IVPB Q8HR PITO Rx#:[id number] Intake, IV Titration .082 5.258 14.642 Amount Insulin Regular 100 unit 5.258 14.642 In Sodium Chloride 0.9% 100 ml @ Per Protocol IV .Q0M PITO Rx#:[id number] propofoL 1,000 mg In 19.082 Empty Bag 1 bag @ Titrate IV .Q0M PITO Rx#: [id number] Oral 100 Blood Product 930 Rc As-1 Unit 310 [id number] Rc As-1 Unit 310 [id number] Rc As-1 Unit 310 [id number] Output: Chest Tube Drainage 340 770 150 L pleural 215 610 110 Medistinalx2 125 160 40 Drainage 60 40 Left Arm 60 40 Urine 1345 815 150 Estimated Blood Loss 800 Other: Voiding Method Indwelling Catheter Indwelling Catheter Indwelling Catheter ABP, PAP, CO, CI - Last Documented Arterial Blood Pressure 114/45 Pulmonary Artery Pressure 32/12 Cardiac Output 5.2 Cardiac Index 3.6 - Exam GENERAL EXAM: Revealed a 65-year-old white male pleasant in no distress sitting at the bedside chair, HEAD: Normocephalic. Atraumatic EYES: PERRLA, EOMI, nonicteric NOSE: Clear with pink turbinates. THROAT: Moist mucous membranes, no erythema, no exudates NECK: Right IJ Dugway-Reva catheter in place. No masses, no JVD. CHEST: Sternal dressing dry and intact. Mediastinal and left chest tubes in place to Pleur-evac and wall suction. Pacer wires in place. LUNGS: Clear bilaterally no rhonchi no wheezes CVS: S1 and S2 normal with no audible murmur, regular rhythm. Positive pericardial rub ABDOMEN: No hepatosplenomegaly, hypoactive bowel sounds, no guarding or rigidity. SKIN: No rashes CENTRAL NERVOUS SYSTEM: Alert and oriented x 3 no gross focal deficit. EXTREMITIES: Left upper extremity in Jeffery wrap. REENA drain in place. Right radial arterial line in place. No clubbing, no cyanosis. Good peripheral pulses - Labs CBC & Chem 7: 04/29/25 03:00 04/29/25 03:00 Labs: Abnormal Lab Results - Last 24 Hours (Table) 04/22/25 04/28/25 04/28/25 Range/Units 14:10 08:27 10:47 RBC (4.40-5.60) 10*6/uL Hgb (13.0-17.0) g/dL Hct (39.6-50.0) % Plt Count (140-440) 10*3/uL MPV (9.5-12.2) fL Lymphocytes # (0.90-5.00) 10*3/uL Eosinophils # (0.04-0.35) 10*3/uL PT (10.0-12.5) sec INR (<1.2) ABG pH (7.35-7.45) ABG pO2 >420 H 195 H (83-108) mmHg ABG HCO3 26 H (21-25) mmol/L ABG Total CO2 (19-24) mmol/L ABG O2 Saturation >99.4 H 99.1 H (94-97) % ABG Hematocrit 24 L 20 L* (34.0-46.0) % ABG Potassium (3.4-4.5) mmol/L ABG Ionized Calcium (4.5-5.3) mg/dL ABG Glucose 114 H (75-99) mg/dL ABG Lactic Acid (0.5-1.6) mmol/L Hemoglobin 7.9 L 6.5 L* (13.0-17.5) gm/dL Chloride (98-107) mmol/L BUN (9-20) mg/dL Glucose (74-99) mg/dL POC Glucose (mg/dL) (70-110) mg/dL Calcium (8.4-10.2) mg/dL Alkaline Phosphatase (38-126) U/L Total Protein (6.3-8.2) g/dL Albumin (3.5-5.0) g/dL Arterial Blood Potassium (3.4-4.5) mmol/L Arterial Blood Glucose 114 H (75-99) mg/dL Crossmatch See Detail 04/28/25 04/28/25 04/28/25 Range/Units 12:00 12:02 12:35 RBC (4.40-5.60) 10*6/uL Hgb (13.0-17.0) g/dL Hct (39.6-50.0) % Plt Count (140-440) 10*3/uL MPV (9.5-12.2) fL Lymphocytes # (0.90-5.00) 10*3/uL Eosinophils # (0.04-0.35) 10*3/uL PT (10.0-12.5) sec INR (<1.2) ABG pH 7.33 L 7.34 L (7.35-7.45) ABG pO2 394 H 335 H 252 H (83-108) mmHg ABG HCO3 (21-25) mmol/L ABG Total CO2 (19-24) mmol/L ABG O2 Saturation >99.4 H >99.4 H >99.4 H (94-97) % ABG Hematocrit 24 L 24 L 22 L (34.0-46.0) % ABG Potassium 4.7 H (3.4-4.5) mmol/L ABG Ionized Calcium 4.3 L 4.3 L 4.3 L (4.5-5.3) mg/dL ABG Glucose 156 H 133 H 133 H (75-99) mg/dL ABG Lactic Acid (0.5-1.6) mmol/L Hemoglobin 7.9 L 7.9 L 7.1 L (13.0-17.5) gm/dL Chloride (98-107) mmol/L BUN (9-20) mg/dL Glucose (74-99) mg/dL POC Glucose (mg/dL) (70-110) mg/dL Calcium (8.4-10.2) mg/dL Alkaline Phosphatase (38-126) U/L Total Protein (6.3-8.2) g/dL Albumin (3.5-5.0) g/dL Arterial Blood Potassium 4.7 H (3.4-4.5) mmol/L Arterial Blood Glucose 156 H 133 H 133 H (75-99) mg/dL Crossmatch 04/28/25 04/28/25 04/28/25 Range/Units 13:01 14:08 14:52 RBC 2.83 L (4.40-5.60) 10*6/uL Hgb 8.2 L (13.0-17.0) g/dL Hct 24.7 L (39.6-50.0) % Plt Count 113 L D (140-440) 10*3/uL MPV 8.2 L (9.5-12.2) fL Lymphocytes # (0.90-5.00) 10*3/uL Eosinophils # (0.04-0.35) 10*3/uL PT (10.0-12.5) sec INR (<1.2) ABG pH (7.35-7.45) ABG pO2 340 H 394 H (83-108) mmHg ABG HCO3 (21-25) mmol/L ABG Total CO2 (19-24) mmol/L ABG O2 Saturation >99.4 H >99.4 H (94-97) % ABG Hematocrit 22 L 26 L (34.0-46.0) % ABG Potassium 4.9 H (3.4-4.5) mmol/L ABG Ionized Calcium 4.4 L (4.5-5.3) mg/dL ABG Glucose 139 H 132 H (75-99) mg/dL ABG Lactic Acid 1.7 H (0.5-1.6) mmol/L Hemoglobin 7.2 L 8.4 L (13.0-17.5) gm/dL Chloride (98-107) mmol/L BUN (9-20) mg/dL Glucose (74-99) mg/dL POC Glucose (mg/dL) (70-110) mg/dL Calcium (8.4-10.2) mg/dL Alkaline Phosphatase (38-126) U/L Total Protein (6.3-8.2) g/dL Albumin (3.5-5.0) g/dL Arterial Blood Potassium 4.9 H (3.4-4.5) mmol/L Arterial Blood Glucose 139 H 132 H (75-99) mg/dL Crossmatch 04/28/25 04/28/25 04/28/25 Range/Units 14:52 14:52 15:19 RBC (4.40-5.60) 10*6/uL Hgb (13.0-17.0) g/dL Hct (39.6-50.0) % Plt Count (140-440) 10*3/uL MPV (9.5-12.2) fL Lymphocytes # (0.90-5.00) 10*3/uL Eosinophils # (0.04-0.35) 10*3/uL PT 14.2 H (10.0-12.5) sec INR 1.4 H (<1.2) ABG pH (7.35-7.45) ABG pO2 369 H (83-108) mmHg ABG HCO3 (21-25) mmol/L ABG Total CO2 25 H (19-24) mmol/L ABG O2 Saturation 100.0 H (94-97) % ABG Hematocrit (34.0-46.0) % ABG Potassium (3.4-4.5) mmol/L ABG Ionized Calcium (4.5-5.3) mg/dL ABG Glucose (75-99) mg/dL ABG Lactic Acid (0.5-1.6) mmol/L Hemoglobin (13.0-17.5) gm/dL Chloride 110 H (98-107) mmol/L BUN 24 H (9-20) mg/dL Glucose (74-99) mg/dL POC Glucose (mg/dL) (70-110) mg/dL Calcium 8.3 L (8.4-10.2) mg/dL Alkaline Phosphatase 21 L (38-126) U/L Total Protein 5.1 L (6.3-8.2) g/dL Albumin 3.2 L (3.5-5.0) g/dL Arterial Blood Potassium (3.4-4.5) mmol/L Arterial Blood Glucose (75-99) mg/dL Crossmatch 04/28/25 04/28/25 04/28/25 Range/Units 17:00 17:50 17:55 RBC 2.93 L (4.40-5.60) 10*6/uL Hgb 8.6 L (13.0-17.0) g/dL Hct 25.6 L (39.6-50.0) % Plt Count 133 L (140-440) 10*3/uL MPV 8.6 L (9.5-12.2) fL Lymphocytes # (0.90-5.00) 10*3/uL Eosinophils # (0.04-0.35) 10*3/uL PT (10.0-12.5) sec INR (<1.2) ABG pH (7.35-7.45) ABG pO2 (83-108) mmHg ABG HCO3 (21-25) mmol/L ABG Total CO2 (19-24) mmol/L ABG O2 Saturation (94-97) % ABG Hematocrit (34.0-46.0) % ABG Potassium (3.4-4.5) mmol/L ABG Ionized Calcium (4.5-5.3) mg/dL ABG Glucose (75-99) mg/dL ABG Lactic Acid (0.5-1.6) mmol/L Hemoglobin (13.0-17.5) gm/dL Chloride (98-107) mmol/L BUN (9-20) mg/dL Glucose (74-99) mg/dL POC Glucose (mg/dL) 115 H 116 H (70-110) mg/dL Calcium (8.4-10.2) mg/dL Alkaline Phosphatase (38-126) U/L Total Protein (6.3-8.2) g/dL Albumin (3.5-5.0) g/dL Arterial Blood Potassium (3.4-4.5) mmol/L Arterial Blood Glucose (75-99) mg/dL Crossmatch 04/28/25 04/28/25 04/28/25 Range/Units 18:24 19:00 20:07 RBC (4.40-5.60) 10*6/uL Hgb (13.0-17.0) g/dL Hct (39.6-50.0) % Plt Count (140-440) 10*3/uL MPV (9.5-12.2) fL Lymphocytes # (0.90-5.00) 10*3/uL Eosinophils # (0.04-0.35) 10*3/uL PT (10.0-12.5) sec INR (<1.2) ABG pH 7.33 L (7.35-7.45) ABG pO2 148 H (83-108) mmHg ABG HCO3 (21-25) mmol/L ABG Total CO2 (19-24) mmol/L ABG O2 Saturation 100.0 H (94-97) % ABG Hematocrit (34.0-46.0) % ABG Potassium (3.4-4.5) mmol/L ABG Ionized Calcium (4.5-5.3) mg/dL ABG Glucose (75-99) mg/dL ABG Lactic Acid (0.5-1.6) mmol/L Hemoglobin (13.0-17.5) gm/dL Chloride (98-107) mmol/L BUN (9-20) mg/dL Glucose (74-99) mg/dL POC Glucose (mg/dL) 127 H 128 H (70-110) mg/dL Calcium (8.4-10.2) mg/dL Alkaline Phosphatase (38-126) U/L Total Protein (6.3-8.2) g/dL Albumin (3.5-5.0) g/dL Arterial Blood Potassium (3.4-4.5) mmol/L Arterial Blood Glucose (75-99) mg/dL Crossmatch 04/28/25 04/28/25 04/28/25 Range/Units 20:10 21:05 22:04 RBC 2.79 L (4.40-5.60) 10*6/uL Hgb 8.1 L (13.0-17.0) g/dL Hct 24.3 L (39.6-50.0) % Plt Count 135 L (140-440) 10*3/uL MPV 8.5 L (9.5-12.2) fL Lymphocytes # 0.62 L (0.90-5.00) 10*3/uL Eosinophils # (0.04-0.35) 10*3/uL PT (10.0-12.5) sec INR (<1.2) ABG pH (7.35-7.45) ABG pO2 (83-108) mmHg ABG HCO3 (21-25) mmol/L ABG Total CO2 (19-24) mmol/L ABG O2 Saturation (94-97) % ABG Hematocrit (34.0-46.0) % ABG Potassium (3.4-4.5) mmol/L ABG Ionized Calcium (4.5-5.3) mg/dL ABG Glucose (75-99) mg/dL ABG Lactic Acid (0.5-1.6) mmol/L Hemoglobin (13.0-17.5) gm/dL Chloride (98-107) mmol/L BUN (9-20) mg/dL Glucose (74-99) mg/dL POC Glucose (mg/dL) 125 H 119 H (70-110) mg/dL Calcium (8.4-10.2) mg/dL Alkaline Phosphatase (38-126) U/L Total Protein (6.3-8.2) g/dL Albumin (3.5-5.0) g/dL Arterial Blood Potassium (3.4-4.5) mmol/L Arterial Blood Glucose (75-99) mg/dL Crossmatch 04/28/25 04/29/25 04/29/25 Range/Units 23:10 00:08 01:08 RBC (4.40-5.60) 10*6/uL Hgb (13.0-17.0) g/dL Hct (39.6-50.0) % Plt Count (140-440) 10*3/uL MPV (9.5-12.2) fL Lymphocytes # (0.90-5.00) 10*3/uL Eosinophils # (0.04-0.35) 10*3/uL PT (10.0-12.5) sec INR (<1.2) ABG pH (7.35-7.45) ABG pO2 (83-108) mmHg ABG HCO3 (21-25) mmol/L ABG Total CO2 (19-24) mmol/L ABG O2 Saturation (94-97) % ABG Hematocrit (34.0-46.0) % ABG Potassium (3.4-4.5) mmol/L ABG Ionized Calcium (4.5-5.3) mg/dL ABG Glucose (75-99) mg/dL ABG Lactic Acid (0.5-1.6) mmol/L Hemoglobin (13.0-17.5) gm/dL Chloride (98-107) mmol/L BUN (9-20) mg/dL Glucose (74-99) mg/dL POC Glucose (mg/dL) 111 H 117 H 127 H (70-110) mg/dL Calcium (8.4-10.2) mg/dL Alkaline Phosphatase (38-126) U/L Total Protein (6.3-8.2) g/dL Albumin (3.5-5.0) g/dL Arterial Blood Potassium (3.4-4.5) mmol/L Arterial Blood Glucose (75-99) mg/dL Crossmatch 04/29/25 04/29/25 04/29/25 Range/Units 02:21 02:59 03:00 RBC 2.72 L (4.40-5.60) 10*6/uL Hgb 7.7 L (13.0-17.0) g/dL Hct 23.8 L (39.6-50.0) % Plt Count 138 L (140-440) 10*3/uL MPV 8.5 L (9.5-12.2) fL Lymphocytes # 0.53 L (0.90-5.00) 10*3/uL Eosinophils # 0.01 L (0.04-0.35) 10*3/uL PT (10.0-12.5) sec INR (<1.2) ABG pH (7.35-7.45) ABG pO2 (83-108) mmHg ABG HCO3 (21-25) mmol/L ABG Total CO2 (19-24) mmol/L ABG O2 Saturation (94-97) % ABG Hematocrit (34.0-46.0) % ABG Potassium (3.4-4.5) mmol/L ABG Ionized Calcium (4.5-5.3) mg/dL ABG Glucose (75-99) mg/dL ABG Lactic Acid (0.5-1.6) mmol/L Hemoglobin (13.0-17.5) gm/dL Chloride (98-107) mmol/L BUN (9-20) mg/dL Glucose (74-99) mg/dL POC Glucose (mg/dL) 132 H 128 H (70-110) mg/dL Calcium (8.4-10.2) mg/dL Alkaline Phosphatase (38-126) U/L Total Protein (6.3-8.2) g/dL Albumin (3.5-5.0) g/dL Arterial Blood Potassium (3.4-4.5) mmol/L Arterial Blood Glucose (75-99) mg/dL Crossmatch 04/29/25 04/29/25 04/29/25 Range/Units 03:00 03:58 05:06 RBC (4.40-5.60) 10*6/uL Hgb (13.0-17.0) g/dL Hct (39.6-50.0) % Plt Count (140-440) 10*3/uL MPV (9.5-12.2) fL Lymphocytes # (0.90-5.00) 10*3/uL Eosinophils # (0.04-0.35) 10*3/uL PT (10.0-12.5) sec INR (<1.2) ABG pH (7.35-7.45) ABG pO2 (83-108) mmHg ABG HCO3 (21-25) mmol/L ABG Total CO2 (19-24) mmol/L ABG O2 Saturation (94-97) % ABG Hematocrit (34.0-46.0) % ABG Potassium (3.4-4.5) mmol/L ABG Ionized Calcium (4.5-5.3) mg/dL ABG Glucose (75-99) mg/dL ABG Lactic Acid (0.5-1.6) mmol/L Hemoglobin (13.0-17.5) gm/dL Chloride (98-107) mmol/L BUN 25 H (9-20) mg/dL Glucose 112 H (74-99) mg/dL POC Glucose (mg/dL) 120 H 122 H (70-110) mg/dL Calcium (8.4-10.2) mg/dL Alkaline Phosphatase 30 L (38-126) U/L Total Protein 5.5 L (6.3-8.2) g/dL Albumin (3.5-5.0) g/dL Arterial Blood Potassium (3.4-4.5) mmol/L Arterial Blood Glucose (75-99) mg/dL Crossmatch 04/29/25 04/29/25 04/29/25 Range/Units 06:56 08:16 09:04 RBC (4.40-5.60) 10*6/uL Hgb (13.0-17.0) g/dL Hct (39.6-50.0) % Plt Count (140-440) 10*3/uL MPV (9.5-12.2) fL Lymphocytes # (0.90-5.00) 10*3/uL Eosinophils # (0.04-0.35) 10*3/uL PT (10.0-12.5) sec INR (<1.2) ABG pH (7.35-7.45) ABG pO2 (83-108) mmHg ABG HCO3 (21-25) mmol/L ABG Total CO2 (19-24) mmol/L ABG O2 Saturation (94-97) % ABG Hematocrit (34.0-46.0) % ABG Potassium (3.4-4.5) mmol/L ABG Ionized Calcium (4.5-5.3) mg/dL ABG Glucose (75-99) mg/dL ABG Lactic Acid (0.5-1.6) mmol/L Hemoglobin (13.0-17.5) gm/dL Chloride (98-107) mmol/L BUN (9-20) mg/dL Glucose (74-99) mg/dL POC Glucose (mg/dL) 129 H 184 H 175 H (70-110) mg/dL Calcium (8.4-10.2) mg/dL Alkaline Phosphatase (38-126) U/L Total Protein (6.3-8.2) g/dL Albumin (3.5-5.0) g/dL Arterial Blood Potassium (3.4-4.5) mmol/L Arterial Blood Glucose (75-99) mg/dL Crossmatch 04/29/25 Range/Units 10:04 RBC (4.40-5.60) 10*6/uL Hgb (13.0-17.0) g/dL Hct (39.6-50.0) % Plt Count (140-440) 10*3/uL MPV (9.5-12.2) fL Lymphocytes # (0.90-5.00) 10*3/uL Eosinophils # (0.04-0.35) 10*3/uL PT (10.0-12.5) sec INR (<1.2) ABG pH (7.35-7.45) ABG pO2 (83-108) mmHg ABG HCO3 (21-25) mmol/L ABG Total CO2 (19-24) mmol/L ABG O2 Saturation (94-97) % ABG Hematocrit (34.0-46.0) % ABG Potassium (3.4-4.5) mmol/L ABG Ionized Calcium (4.5-5.3) mg/dL ABG Glucose (75-99) mg/dL ABG Lactic Acid (0.5-1.6) mmol/L Hemoglobin (13.0-17.5) gm/dL Chloride (98-107) mmol/L BUN (9-20) mg/dL Glucose (74-99) mg/dL POC Glucose (mg/dL) 145 H (70-110) mg/dL Calcium (8.4-10.2) mg/dL Alkaline Phosphatase (38-126) U/L Total Protein (6.3-8.2) g/dL Albumin (3.5-5.0) g/dL Arterial Blood Potassium (3.4-4.5) mmol/L Arterial Blood Glucose (75-99) mg/dL Crossmatch Assessment and Plan Assessment: Impression: Triple-vessel coronary artery disease status post CABG, three-vessel bypass grafting surgery Paroxysmal atrial fibrillation, status post exclusion of the left atrial pastora endage and bilateral pulmonary vein isolation with radiofrequency bipolar clamp from [employer]. Benign essential hypertension Dyslipidemia Type 2 diabetes with baseline hemoglobin A1c of 7.7 Hypothyroidism History of sepsis with bacteremia in 2023 along with acute kidney injury and septic shock with rhabdomyolysis in September 21, 2002 4 Remote history of nicotine dependence/ex-smoker GERD without esophagitis, Degenerative joint disease Recommendation: Patient was extubated last night uneventfully Continue medical therapy including aspirin statin Plavix and beta-blockers Continue incentive spirometry Continue GI and DVT prophylaxis Ambulate as tolerated Continue pain control regimen Continue insulin Discontinue unnecessary lines and catheters Daily monitoring of chest x-rays Daily monitoring of labs Will continue to follow Time with Patient: Less than 30
[2025-04-29 12:20] LABS: Glucose,Whole Blood 106 mg/dL (70-110)
[2025-04-29 13:18] LABS: Glucose,Whole Blood 170 mg/dL (70-110)
[2025-04-29] MEDS ORDERED: DEXTROSE 50% SYRINGE 50 ML IVP PRN ×4 (13:34→14:10)
[2025-04-29] MEDS: MIDODRINE 5 MG TAB PO SCH (14:10)
[2025-04-29] MEDS: INSULIN GLARGINE (LANTUS) 100 UNIT/ML SYR SQ STA (14:15)
[2025-04-29] MEDS: DAPAGLIFLOZIN PROPANEDIOL 5 MG TABLET PO SCH (14:15)
[2025-04-29 14:20] LABS: Glucose,Whole Blood 234 mg/dL (70-110)
[2025-04-29] MEDS: INSULIN REGULAR 100 UNIT in SODIUM CHLORIDE 0.9% 100 ML IV SCH (14:23)
[2025-04-29 15:08] LABS: Glucose,Whole Blood 223 mg/dL (70-110)
[2025-04-29 16:11] LABS: Glucose,Whole Blood 172 mg/dL (70-110)
[2025-04-29] MEDS ORDERED: INSULIN LISPRO (HumaLOG) 100 UNIT/ML 10 mL VL SQ SCH (17:30)
[2025-04-29 18:14] LABS: Glucose,Whole Blood 124 mg/dL (70-110)
[2025-04-29 19:07] LABS: Glucose,Whole Blood 117 mg/dL (70-110)
[2025-04-29] MEDS: methocarbamoL 750 MG TAB PO PRN (20:23)
[2025-04-29] MEDS: SENNOSIDES-DOCUSATE SODIUM 1 EACH TAB PO SCH (21:05)
[2025-04-29] MEDS: INSULIN GLARGINE (LANTUS) 100 UNIT/ML SYR SQ SCH (21:05)
[2025-04-29 21:16] LABS: Glucose,Whole Blood 112 mg/dL (70-110)
--- NOTE | 2025-04-29 22:17 | CONS ---
CONSULTATION REASON FOR CONSULTATION: Advice regarding diabetes mellitus and other issues requested by Cardiothoracic Surgery. HISTORY OF PRESENT ILLNESS: This is a 65-year-old gentleman with a past medical history of multiple medical problems including diabetes mellitus, CAD, atrial fibrillation, underwent CAD, CABG. Currently, the patient extubated. The patient was on insulin drip. The patient is currently taking clear liquids. Sugars are between 110 and 170. The patient will closely monitor this. No history of fever, rigors, or chills at this time. PAST MEDICAL HISTORY: History of diabetes mellitus, type 2, history of CAD, atrial fibrillation. Rest of history and rest of the chart also reviewed. HOME MEDICATIONS: Reviewed include ramipril. Doses and rest of medications reviewed. ALLERGIES: None. FAMILY HISTORY: History of pancreatic cancer. SOCIAL HISTORY: Previous history of smoking. REVIEW OF SYSTEMS: A 14-point review of systems negative except as mentioned earlier. PHYSICAL EXAMINATION: VITAL SIGNS: Pulse is 79, blood pressure 110/45, and respirations 14. CHEST: Clear to auscultation. CARDIOVASCULAR: S1, S2. ABDOMEN: Soft, nontender. LEGS: No edema. NERVOUS SYSTEM: No focal deficits. LABORATORY DATA: Reviewed. ASSESSMENT: 1. Coronary artery disease, status post CABG. 2. Diabetes mellitus, type 2. 3. History of atrial fibrillation. 4. Hypertension. 5. Hyperlipidemia. 6. History degenerative joint disease. 7. History of EtOH. 8. History of sepsis. 9. Multiple complex medical issues. RECOMMENDATIONS: This 65-year-old gentleman presented with multiple complex medical issues. We will monitor the patient closely. We would recommend resuming the home medications, monitor blood sugars closely. Incentive spirometry. DVT prophylaxis. We will follow the patient closely with you. The patient may be asked to follow with the primary physician closely after discharge. MMODL / IJN: [id number] /
[2025-04-29 23:32] LABS: Glucose,Whole Blood 163 mg/dL (70-110)
[2025-04-30 00:16] LABS: Glucose,Whole Blood 154 mg/dL (70-110)
[2025-04-30 01:25] LABS: Glucose,Whole Blood 124 mg/dL (70-110)
[2025-04-30 02:19] LABS: Glucose,Whole Blood 103 mg/dL (70-110)
[2025-04-30 03:05] LABS: Glucose,Whole Blood 108 mg/dL (70-110)
[2025-04-30 03:24] LABS: Basophils # (A) 0.04 10*3/uL (0.00-0.10); Basophils % (A) 0.4 %; Eosinophils # (A) 0.07 10*3/uL (0.04-0.35); Eosinophils % (A) 0.7 %; HCT 23.6 % (39.6-50.0); HGB 7.9 g/dL (13.0-17.0); Lymphocytes # (A) 1.03 10*3/uL (0.90-5.00); Lymphocytes % (A) 10.5 %; MCH 29.2 pg (27.0-32.0); MCHC 33.5 g/dL (32.0-37.0); MCV 87.1 fL (80.0-97.0); Mean Platelet Volume 9.2 fL (9.5-12.2); Monocytes % (A) 9.2 %; Neutrophils # (A) 7.71 10*3/uL (1.80-7.70); Neutrophils % (A) 78.7 %; Platelet Count 145 10*3/uL (140-440); RBC 2.71 10*6/uL (4.40-5.60); RDW 19.2 % (11.5-14.5)
[2025-04-30 03:46] LABS: Ionized Calcium 4.7 mg/dL (4.5-5.3)
[2025-04-30 04:00] LABS: ALT 6 U/L (4-49); AST 50 U/L (17-59); African American GFR (CKD) 66 (>60 ml/min/1.73 sqM); Albumin 3.6 g/dL (3.5-5.0); Alkaline Phosphatase 92 U/L (38-126); Anion Gap 9 mmol/L; Blood Urea Nitrogen 32 mg/dL (9-20); Calcium 8.6 mg/dL (8.4-10.2); Carbon Dioxide 21 mmol/L (22-30); Chloride 106 mmol/L (98-107); Glucose 99 mg/dL (74-99); Magnesium 2.2 mg/dL (1.6-2.3); Non-African American GFR(CKD) 57 (>60 ml/min/1.73 sqM); Potassium 4.7 mmol/L (3.5-5.1); Sodium 136 mmol/L (137-145); Total Bilirubin 0.7 mg/dL (0.2-1.3); Total Protein 5.9 g/dL (6.3-8.2)
[2025-04-30 04:31] LABS: Glucose,Whole Blood 142 mg/dL (70-110)
[2025-04-30 05:09] LABS: Glucose,Whole Blood 142 mg/dL (70-110)
[2025-04-30] MEDS: PANTOPRAZOLE 40 MG TABLET PO SCH (06:34)
[2025-04-30 06:57] LABS: Glucose,Whole Blood 99 mg/dL (70-110)
--- NOTE | 2025-04-30 07:33 | P.PN ---
Subjective Progress Note Date: 04/30/25 Principal diagnosis: Triple-vessel coronary artery disease, status post remote inferior wall myocardial infarction with previous PCI to the right and the circumflex system, moderate left ventricular dysfunction, fixed defect on the inferior wall on stress test. Past medical history significant for diabetes mellitus, hypertension, hyperlipidemia, recently diagnosed hypothyroidism, anemia, right knee severe arthritis, paroxysmal atrial fibrillation, sepsis bacteremia in September of 2024 EtOH abuse, quit drinking in September 2024, history of rhabdomyolysis secondary to immobility in September 2024, acute kidney injury secondary to septic shock and rhabdomyolysis in September 2024, GERD, and remote history of nicotine dependence. POD #2 triple-vessel coronary artery bypass grafting using the in situ left intramammary artery to the left anterior descending artery, left radial artery from the aorta to the obtuse marginal artery, reverse saphenous vein graft from the aorta to the very distal aspect of the posterior descending artery, bilateral pulmonary vein isolation using radiofrequency bipolar clamp from AtriCure, exclusion of the left atrial appendage using a 35mm, AtriClip, endoscopic harvesting of the left radial artery, endoscopic harvesting of the right greater saphenous vein from the lower leg, intraoperative graft flow measurements using the CoAxiaim system, intraoperative transesophageal echocardiogram and epiaortic scanning. Postoperative acute blood loss anemia, expected given the patient's history of anemia, and hemodilution and cardiopulmonary bypass. The patient was seen and examined at his bedside this morning April 30, 2025 in the intensive care unit. He is currently sitting up to the bedside chair, is awake, alert, oriented x 3 and is in no acute apparent distress. Denies any complaints of shortness of breath this morning, although he is complaining of some surgical pain to his chest tube insertion sites mainly his left chest. Oxy gen saturations are 97% on 2 L nasal cannula and he is achieving 750 to 1000 mL on his incentive spirometry with encouragement. Remote telemetry is showing normal sinus rhythm heart rate 80 bpm. Right IJ cordis remains in place with continuous CVP monitoring, current CVP pressure is 12 mmHg. He was transfused for 1 unit of packed red blood cells yesterday as the patient was having episodes of hypotension and his hemoglobin was 7.7. Mediastinal and left pleural chest tubes remain in place to low continuous wall suction -20 cm H2O. No airleak is present. Draining thin serosanguineous drainage. He remains hemodynamically stable and is currently on no inotropic or pressor support. Laboratory and chest x-ray results reviewed. Objective - Vital Signs Vital signs: Vital Signs Temp 98.2 F 04/30/25 04:00 Pulse 80 04/30/25 06:30 Resp 14 04/30/25 05:30 BP 124/53 04/29/25 19:26 Pulse Ox 97 04/30/25 05:30 FiO2 45 04/28/25 16:20 Intake & Output 04/29/25 04/30/25 04/30/25 18:59 06:59 18:59 Intake Total 1378.992 642.650 26 Output Total 580 870 25 Balance 798.992 -227.350 1 Weight 74.6 kg 76.8 kg Intake: IV 1047 312 26 0.9 @ 50 200 Albumin Human 5% 250 ml 500 In Empty Bag 1 bag @ 250 mls/hr IVPB Q1HR PRN Rx#: [id number] Calcium Gluconate in NaCl 100 2 gm In Saline 1 100ml. bag @ 100 mls/hr IVPB ONCE PRN Rx#:[id number] Pressure Bags 87 72 6 Sodium Chloride 0.9% 1, 160 240 20 000 ml @ 20 mls/hr IV . Q24H [facility] Rx#:[id number] Intake, IV Titration 31.992 20.650 Amount Insulin Regular 100 unit 14.642 In Sodium Chloride 0.9% 100 ml @ Per Protocol IV .Q0M [facility] Rx#:[id number] Insulin Regular 100 unit 17.35 20.650 In Sodium Chloride 0.9% 100 ml @ Titrate IV .Q0M [facility] Rx#:[id number] Oral 300 Blood Product 0 310 Rc As-1 Unit 0 310 [id number] Output: Chest Tube Drainage 290 370 0 L pleural 190 200 0 Medistinalx2 100 170 0 Drainage 25 Left Arm 25 Urine 290 475 25 Other: Voiding Method Indwelling Catheter Indwelling Catheter ABP, PAP, CO, CI - Last Documented Arterial Blood Pressure 112/48 Pulmonary Artery Pressure 32/12 Cardiac Output 5.2 Cardiac Index 3.6 - Exam CONSTITUTIONAL: Sitting up to the bedside chair in the intensive care unit, appears comfortable, cooperative, no apparent acute distress. HEENT: Neck is supple, no JVD, no lymphadenopathy. Right IJ Cordis in place and functioning. RESPIRATORY: Lungs sounds essentially clear throughout, diminished to his bilateral bases. Respirations are symmetrical and nonlabored. Currently on 2 L nasal cannula with oxygen saturations 97%. Able to achieve 50-750mL on his incentive spirometry. Strong cough. CARDIOVASCULAR: Regular rhythm and rate. S1 and S2 present, negative for S3, gallop or murmur. Sternum is stable. Palpable peripheral pulses bilaterally. No calf pain or tenderness noted. Heart hugger in place with patient demonstrating appropriate use. Knee-high CAMI hose and sequential compression devices in place to his bilateral lower extremities. GASTROINTESTINAL: Abdomen soft, nontender, nondistended. Active bowel sounds present 4 quadrants. Tolerating clear liquid diet. Passing flatus. No guarding or rigidity. GENITOURINARY: Blake present draining clear, yellow urine. Urine output 365 mL in the last 8 hours. INTEGUMENTARY: Skin is warm and dry with no evidence of clubbing or cyanosis. Midline sternal incision clean dry and well approximated, covered with dry i ntact dressing. Right lower extremity EVH sites well approximated without redness or drainage. Left arm radial artery harvest sites clean, dry and approximated. No drainage or redness is present. NEUROLOGIC: Cranial nerves II through XII intact. No focal deficits. MUSKULOSKELETAL: Able to move all extremities, strength equal bilaterally, generalized weakness. Chronic weakness to his right knee. PSYCHIATRIC: Alert and oriented to person place and time, appropriate affect, intact judgment and insight. INVASIVE LINES AND TUBES: Mediastinal/left pleural chest tubes present and connected to low continuous wall suction, no air leaks present. Mediastinal tube with 70 mL of thin serosanguineous drainage overnight, 250 mL output in the last 24 hours. Left pleural chest tube with 160 mL of thin serosanguineous drainage overnight, 410 mL output in the last 24 hours. Atrial epicardial pa cemaker wires present, connected to generator, AAI backup rate 50 bpm. Right internal jugular Cordis, right radial arterial line present. Current CVP 12 mmHg. - Allied health notes Allied health notes reviewed: nursing - Labs CBC & Chem 7: 04/30/25 03:00 04/30/25 03:00 Labs: Abnormal Lab Results - Last 24 Hours (Table) 04/22/25 04/29/25 04/29/25 Range/Units 14:10 08:16 09:04 RBC (4.40-5.60) 10*6/uL Hgb (13.0-17.0) g/dL Hct (39.6-50.0) % MPV (9.5-12.2) fL Immature Gran # (0.00-0.04) 10*3/uL Neutrophils # (1.80-7.70) 10*3/uL Sodium (137-145) mmol/L Carbon Dioxide (22-30) mmol/L BUN (9-20) mg/dL Creatinine (0.66-1.25) mg/dL POC Glucose (mg/dL) 184 H 175 H (70-110) mg/dL Total Protein (6.3-8.2) g/dL Crossmatch See Detail 04/29/25 04/29/25 04/29/25 Range/Units 10:04 13:17 14:19 RBC (4.40-5.60) 10*6/uL Hgb (13.0-17.0) g/dL Hct (39.6-50.0) % MPV (9.5-12.2) fL Immature Gran # (0.00-0.04) 10*3/uL Neutrophils # (1.80-7.70) 10*3/uL Sodium (137-145) mmol/L Carbon Dioxide (22-30) mmol/L BUN (9-20) mg/dL Creatinine (0.66-1.25) mg/dL POC Glucose (mg/dL) 145 H 170 H 234 H (70-110) mg/dL Total Protein (6.3-8.2) g/dL Crossmatch 04/29/25 04/29/25 04/29/25 Range/Units 15:07 16:09 18:13 RBC (4.40-5.60) 10*6/uL Hgb (13.0-17.0) g/dL Hct (39.6-50.0) % MPV (9.5-12.2) fL Immature Gran # (0.00-0.04) 10*3/uL Neutrophils # (1.80-7.70) 10*3/uL Sodium (137-145) mmol/L Carbon Dioxide (22-30) mmol/L BUN (9-20) mg/dL Creatinine (0.66-1.25) mg/dL POC Glucose (mg/dL) 223 H 172 H 124 H (70-110) mg/dL Total Protein (6.3-8.2) g/dL Crossmatch 04/29/25 04/29/25 04/29/25 Range/Units 19:06 21:15 23:31 RBC (4.40-5.60) 10*6/uL Hgb (13.0-17.0) g/dL Hct (39.6-50.0) % MPV (9.5-12.2) fL Immature Gran # (0.00-0.04) 10*3/uL Neutrophils # (1.80-7.70) 10*3/uL Sodium (137-145) mmol/L Carbon Dioxide (22-30) mmol/L BUN (9-20) mg/dL Creatinine (0.66-1.25) mg/dL POC Glucose (mg/dL) 117 H 112 H 163 H (70-110) mg/dL Total Protein (6.3-8.2) g/dL Crossmatch 04/30/25 04/30/25 04/30/25 Range/Units 00:15 01:24 03:00 RBC 2.71 L (4.40-5.60) 10*6/uL Hgb 7.9 L (13.0-17.0) g/dL Hct 23.6 L (39.6-50.0) % MPV 9.2 L (9.5-12.2) fL Immature Gran # 0.05 H (0.00-0.04) 10*3/uL Neutrophils # 7.71 H (1.80-7.70) 10*3/uL Sodium (137-145) mmol/L Carbon Dioxide (22-30) mmol/L BUN (9-20) mg/dL Creatinine (0.66-1.25) mg/dL POC Glucose (mg/dL) 154 H 124 H (70-110) mg/dL Total Protein (6.3-8.2) g/dL Crossmatch 04/30/25 04/30/25 04/30/25 Range/Units 03:00 04:30 05:08 RBC (4.40-5.60) 10*6/uL Hgb (13.0-17.0) g/dL Hct (39.6-50.0) % MPV (9.5-12.2) fL Immature Gran # (0.00-0.04) 10*3/uL Neutrophils # (1.80-7.70) 10*3/uL Sodium 136 L (137-145) mmol/L Carbon Dioxide 21 L (22-30) mmol/L BUN 32 H (9-20) mg/dL Creatinine 1.33 H (0.66-1.25) mg/dL POC Glucose (mg/dL) 142 H 142 H (70-110) mg/dL Total Protein 5.9 L (6.3-8.2) g/dL Crossmatch - Imaging and Cardiology Chest x-ray: report reviewed, image reviewed Assessment and Plan Assessment: Triple-vessel coronary artery disease, status post PCI to his right and circumflex system, status post three-vessel coronary artery bypass grafting surgery Paroxysmal atrial fibrillation, status post exclusion of the left atrial appendage and bilateral pulmonary vein isolation using radiofrequency bipolar c lamp from Atricure Postoperative acute blood loss anemia, expected due to his history of anemia and to cardiopulmonary bypass and hemodilution, transfused for 1 unit of packed red blood cells on 04/29/2025 Hypertension Hyperlipidemia, treated Remote history of inferior wall myocardial infarction Moderate left ventricular dysfunction Diabetes mellitus type 2, preoperative hemoglobin A1c 7.7% Hypothyroidism History of sepsis bacteremia in 2023 History of rhabdomyolysis in September 2024 History of acute kidney injury secondary to septic shock and rhabdomyolysis in September 2024 History of EtOH abuse, quit drinking in September 2024 Remote history of nicotine dependence GERD Osteoarthritis Plan: Continue to maximize medical therapy with aspirin, statin, Plavix, and beta- katja, will increase beta-katja therapy as tolerated. Discontinue IV nitroglycerin drip. We will start calcium channel katja when blood pressure able to tolerate for radial artery spasm prophylaxis. Give 25% albumin 50 mL IV piggyback x 1 now. 1 g of calcium gluconate IV piggyback x 1 now. No diuresis today. Wean oxygen as tolerated, bronchodilator management per pulmonary/critical care medicine. Encourage incentive spirometry use 10 times every hour while awake. Increase activity as tolerated, PT/OT/cardiac rehab consulted. Will monitor daily labs and chest x-rays, electrolyte replacement per protocol. GI/DVT prophylaxis. Pain control per current medication regimen. Insulin management per internal medicine, patient should remain on IV continuous insulin for 48 hours, then may transition to subcutaneous insulin per protocol. Preoperative hemoglobin A1c 7.7%. Keep right IJ cordis in place with continuous CVP monitoring. Keep right radial arterial line for now. We remove his mediastinal chest tube and keep his left pleural chest tube for another 24 hours, monitor and record output. Continue Blake catheter for another 24 hours, continue to monitor strict accurate intake and output. Continue the patient's home meds of vitamin D, ferrous sulfate, levothyroxine sodium, magnesium oxide and Protonix. More recommendations to follow based on patient's clinical course. Time with Patient: Greater than 30
[2025-04-30] MEDS: ALBUMIN HUMAN 25% 50 ML in EMPTY BAG 1 BAG IVPB ONE ×2 (07:41→11:45)
[2025-04-30] MEDS: CALCIUM GLUCONATE IN NACL 1 GM in SALINE 1 100ML.BAG IVPB ONE (08:03)
--- NOTE | 2025-04-30 08:31 | XR ---
EXAMINATION TYPE: XR chest 1V portable DATE OF EXAM: 04/30/2025 3:57 AM COMPARISON: None. CLINICAL INDICATION: Male, 65 years old with history of Post Operative Cardiac Surgery, TECHNIQUE: XR chest 1V portable view(s) obtained. FINDINGS: The heart size is enlarged. The pulmonary vasculature is normal. Small to moderate right pleural effusion is present. Left sided chest tube is present. No pneumothorax. IMPRESSION: 1. [id number] right pleural effusion. 2 left-sided chest tube. [facility], , 04/30/2025 8:28 AM
[2025-04-30 08:48] LABS: Glucose,Whole Blood 152 mg/dL (70-110)
[2025-04-30] MEDS: INSULIN GLARGINE (LANTUS) 100 UNIT/ML SYR SQ SCH (08:56)
[2025-04-30 10:02] LABS: Glucose,Whole Blood 196 mg/dL (70-110)
[2025-04-30 11:16] LABS: Glucose,Whole Blood 140 mg/dL (70-110)
--- NOTE | 2025-04-30 11:24 | P.PN ---
Subjective HPI: This is a 65-year-old gentleman with a known history of CAD remote inferior wall MO with previous PCI to RCA and circumflex. He underwent cardiac cath which revealed severe triple-vessel calcified disease was advised bypass surgery which was performed yesterday with a GEIGER to LAD, left free radial artery graft from the aorta to obtuse marginal branch of circumflex, vein graft from the aorta to the distal aspect of the PDA branch of RCA. He is in sinus rhythm doing well hemodynamically stable somewhat seems to be volume depleted he is g oing to probably get some albumin. Complains of a lot of incisional pain and his hypotension would be related to his pain medications also. 04/30/2025 Patient seen and examined sitting up in the chair in no acute distress. Blood pressure 109/46 heart rate 71 maintaining oxygen saturation on nasal cannula. He endorses some surgical pain to his chest incision. He is maintaining sinus rhythm. Laboratory data reviewed, WBC 9.8, hemoglobin 7.9, platelets 145, sodium 136, potassium 4.7, creatinine 1.3, magnesium 2.2. He continues to be maintained on an insulin drip and did receive albumin this morning per cardiothoracic surgery. He is on amiodarone 400 mg twice daily oral, aspirin, atorvastatin, Plavix, Farxiga, metoprolol and midodrine. Cardiothoracic surgery would like to initiate calcium channel katja if his blood pressure can tolerate. PHYSICIAL EXAM: No JVD S1-S2 heard normally, lungs reveal diminished air entry, abdomen is soft, lower extremities reveal diminished pulses with no swelling, Central nervous system is normal. IMPRESSION: 1. Status post aortocoronary bypass surgery postop day 1. 2. Type 2 diabetes mellitus. 3. CAD with prior PCI. RECOMMENDATIONS Continue incentive spirometry and pulmonary toilet. Increase activity as tolerated. Further recommendations to follow based upon clinical course. Nurse Practitioner note has been reviewed, I agree with a documented findings and plan of care. Patient was seen and examined. Objective - Vital Signs Vital signs: Vital Signs Temp 97.5 F L 04/30/25 08:00 Pulse 76 04/30/25 09:00 Resp 19 04/30/25 09:00 BP 124/53 04/29/25 19:26 Pulse Ox 99 04/30/25 09:00 FiO2 45 04/28/25 16:20 Intake & Output 06/09/1304/30/25 04/30/25 18:59 06:59 18:59 Intake Total 1378.992 642.650 78 Output Total 580 870 90 Balance 798.992 -227.350 -12 Weight 74.6 kg 76.8 kg Intake: IV 1047 312 78 0.9 @ 50 200 Albumin Human 5% 250 ml 500 In Empty Bag 1 bag @ 250 mls/hr IVPB Q1HR PRN Rx#: [id number] Calcium Gluconate in NaCl 100 2 gm In Saline 1 100ml. bag @ 100 mls/hr IVPB ONCE PRN Rx#:[id number] Pressure Bags 87 72 18 Sodium Chloride 0.9% 1, 160 240 60 000 ml @ 20 mls/hr IV . Q24H [facility] Rx#:[id number] Intake, IV Titration 31.992 20.650 0 Amount Insulin Regular 100 unit 14.642 In Sodium Chloride 0.9% 100 ml @ Per Protocol IV .Q0M [facility] Rx#:[id number] Insulin Regular 100 unit 17.35 20.650 0 In Sodium Chloride 0.9% 100 ml @ Titrate IV .Q0M [facility] Rx#:[id number] Oral 300 Blood Product 0 310 Rc As-1 Unit 0 310 [id number] Output: Chest Tube Drainage 290 370 10 L pleural 190 200 10 Medistinalx2 100 170 0 Drainage 25 Left Arm 25 Urine 290 475 80 Other: Voiding Method Indwelling Catheter Indwelling Catheter Indwelling Catheter ABP, PAP, CO, CI - Last Documented Arterial Blood Pressure 114/41 Pulmonary Artery Pressure 32/12 Cardiac Output 5.2 Cardiac Index 3.6 - Labs CBC & Chem 7: 04/30/25 03:00 04/30/25 03:00 Labs: Abnormal Lab Results - Last 24 Hours (Table) 04/22/25 04/29/25 04/29/25 Range/Units 14:10 10:04 13:17 RBC (4.40-5.60) 10*6/uL Hgb (13.0-17.0) g/dL Hct (39.6-50.0) % MPV (9.5-12.2) fL Immature Gran # (0.00-0.04) 10*3/uL Neutrophils # (1.80-7.70) 10*3/uL Sodium (137-145) mmol/L Carbon Dioxide (22-30) mmol/L BUN (9-20) mg/dL Creatinine (0.66-1.25) mg/dL POC Glucose (mg/dL) 145 H 170 H (70-110) mg/dL Total Protein (6.3-8.2) g/dL Crossmatch See Detail 04/29/25 04/29/25 04/29/25 Range/Units 14:19 15:07 16:09 RBC (4.40-5.60) 10*6/uL Hgb (13.0-17.0) g/dL Hct (39.6-50.0) % MPV (9.5-12.2) fL Immature Gran # (0.00-0.04) 10*3/uL Neutrophils # (1.80-7.70) 10*3/uL Sodium (137-145) mmol/L Carbon Dioxide (22-30) mmol/L BUN (9-20) mg/dL Creatinine (0.66-1.25) mg/dL POC Glucose (mg/dL) 234 H 223 H 172 H (70-110) mg/dL Total Protein (6.3-8.2) g/dL Crossmatch 04/29/25 04/29/25 04/29/25 Range/Units 18:13 19:06 21:15 RBC (4.40-5.60) 10*6/uL Hgb (13.0-17.0) g/dL Hct (39.6-50.0) % MPV (9.5-12.2) fL Immature Gran # (0.00-0.04) 10*3/uL Neutrophils # (1.80-7.70) 10*3/uL Sodium (137-145) mmol/L Carbon Dioxide (22-30) mmol/L BUN (9-20) mg/dL Creatinine (0.66-1.25) mg/dL POC Glucose (mg/dL) 124 H 117 H 112 H (70-110) mg/dL Total Protein (6.3-8.2) g/dL Crossmatch 04/29/25 04/30/25 04/30/25 Range/Units 23:31 00:15 01:24 RBC (4.40-5.60) 10*6/uL Hgb (13.0-17.0) g/dL Hct (39.6-50.0) % MPV (9.5-12.2) fL Immature Gran # (0.00-0.04) 10*3/uL Neutrophils # (1.80-7.70) 10*3/uL Sodium (137-145) mmol/L Carbon Dioxide (22-30) mmol/L BUN (9-20) mg/dL Creatinine (0.66-1.25) mg/dL POC Glucose (mg/dL) 163 H 154 H 124 H (70-110) mg/dL Total Protein (6.3-8.2) g/dL Crossmatch 04/30/25 04/30/25 04/30/25 Range/Units 03:00 03:00 04:30 RBC 2.71 L (4.40-5.60) 10*6/uL Hgb 7.9 L (13.0-17.0) g/dL Hct 23.6 L (39.6-50.0) % MPV 9.2 L (9.5-12.2) fL Immature Gran # 0.05 H (0.00-0.04) 10*3/uL Neutrophils # 7.71 H (1.80-7.70) 10*3/uL Sodium 136 L (137-145) mmol/L Carbon Dioxide 21 L (22-30) mmol/L BUN 32 H (9-20) mg/dL Creatinine 1.33 H (0.66-1.25) mg/dL POC Glucose (mg/dL) 142 H (70-110) mg/dL Total Protein 5.9 L (6.3-8.2) g/dL Crossmatch 04/30/25 04/30/25 Range/Units 05:08 08:48 RBC (4.40-5.60) 10*6/uL Hgb (13.0-17.0) g/dL Hct (39.6-50.0) % MPV (9.5-12.2) fL Immature Gran # (0.00-0.04) 10*3/uL Neutrophils # (1.80-7.70) 10*3/uL Sodium (137-145) mmol/L Carbon Dioxide (22-30) mmol/L BUN (9-20) mg/dL Creatinine (0.66-1.25) mg/dL POC Glucose (mg/dL) 142 H 152 H (70-110) mg/dL Total Protein (6.3-8.2) g/dL Crossmatch
[2025-04-30 12:02] LABS: Glucose,Whole Blood 113 mg/dL (70-110)
[2025-04-30 13:17] LABS: Glucose,Whole Blood 108 mg/dL (70-110)
--- NOTE | 2025-04-30 13:26 | P.PN ---
Subjective Progress Note Date: 04/30/25 Principal diagnosis: POD #2 triple-vessel coronary artery bypass grafting using the in situ left intramammary artery to the left anterior descending artery, left radial artery from the aorta to the obtuse marginal artery, reverse saphenous vein graft from the aorta to the very distal aspect of the posterior descending artery, bilateral pulmonary vein isolation using radiofrequency bipolar clamp from AtriCure, exclusion of the left atrial appendage using a 35mm, AtriClip, end oscopic harvesting of the left radial artery, endoscopic harvesting of the right greater saphenous vein from the lower leg, intraoperative graft flow measurements using the Play[employer] system, intraoperative transesophageal echocardiogram and epiaortic scanning. This is a 65-year-old male patient with a known history of hypertension, hyperlipidemia, diabetes mellitus, paroxysmal atrial fibrillation, chronic anemia, previous chronic tobacco dependence, previous alcohol abuse, marijuana use, coronary artery disease with previous stent placement. He was recently found to have calcified coronary artery disease with severe disease in the mid LAD, proximal and mid left circumflex, mid to distal RCA and was recommended coronary revascularization. He was brought in today electively for the surgery. He did undergo coronary artery bypass grafting utilizing the GEIGER to the LAD, left radial artery to the obtuse marginal artery, reverse saphenous vein graft to the distal aspect of the posterior descending artery. Clipping of the left atrial appendage. He is seen now in the intensive care unit intubated and on the mechanical ventilator. Current settings are assist-control mode at a rate of 12, tidal volume 500, FiO2 100% and a PEEP of 5. Arterial blood gases revealed a PO2 of 369, PCO2 of 36 and a pH of 7.43. FiO2 titrated down to 45% currently. White count 7.2. Hemoglobin 8.2. Platelets 113. Sodium 141. Potassium 4.2. Bicarb 23. BUN 24. Creatinine 1.08. Glucose 104. He is currently on a nitroglycerin drip at 5 mcg/min. Sedated on propofol at 30 mcg/kg/min. Normal saline at 50 mL/h. Cardiac output 4.1. Cardiac index 2.2. PA pressures 33/18. CVP 14. Chest x-ray reveals right lower lobe atelectatic changes. Very tiny left apical pneumothorax. Mediastinal and left sided chest tubes remain in place. Endotracheal tube 4 cm above the marvel. Nasogastric tube in place. Right Castaner-Reva catheter tip in the main pulmonary artery region. Pacer wires in place. He has been initiated on DuoNeb inhalations. Heparin for DVT prophylaxis. Patient was seen today on 04/29/2025, patient was extubated uneventfully yesterday, he is now on 2 L nasal cannula, patient is sitting in the bedside chair, fairly comfortable, he is complaining of some pain patient does have chronic pain syndrome and is mostly on narcotics on outpatient basis for chronic low back pain. Patient is now postoperative day #1, he is on IV fluid at 50 cc/h he is also on insulin, cardiac output is 5.5 cardiac index is 2.9, achieving 1000 cc on his incentive spirometry. Chest x-ray showed mostly right basilar atelectasis. Otherwise fairly unremarkable. Labs today were reviewed, WBC 7 hemoglobin 7.7 platelets 138, basic metabolic profile is normal creatinine is 1.16. Patient was seen today on 04/30/2025, patient is doing well, he was extubated uneventfully post CABG, today he is on 2 L nasal cannula, IV fluid KVO, patient is relatively hypotensive on midodrine, received 3 infusions of albumin he also received a heads of packed RBCs, remains on insulin at 2 units/h. Blood pressu re was low but seems to be better during my evaluation. Not requiring any pressors. Chest x-ray was reviewed, he has minimal basilar atelectasis no evidence of pulmonary edema. There is cardiomegaly. Objective - Vital Signs Vital signs: Vital Signs Temp 98.0 F 04/30/25 12:00 Pulse 71 04/30/25 13:00 Resp 20 04/30/25 13:00 BP 124/53 04/29/25 19:26 Pulse Ox 95 04/30/25 13:00 FiO2 45 04/28/25 16:20 Intake & Output 04/29/25 04/30/25 04/30/25 18:59 06:59 18:59 Intake Total 1378.992 642.650 193.467 Output Total 580 870 130 Balance 798.992 -227.350 63.467 Weight 74.6 kg 76.8 kg Intake: IV 1047 312 182 0.9 @ 50 200 Albumin Human 5% 250 ml 500 In Empty Bag 1 bag @ 250 mls/hr IVPB Q1HR PRN Rx#: [id number] Calcium Gluconate in NaCl 100 2 gm In Saline 1 100ml. bag @ 100 mls/hr IVPB ONCE PRN Rx#:[id number] Pressure Bags 87 72 42 Sodium Chloride 0.9% 1, 160 240 140 000 ml @ 20 mls/hr IV . Q24H PITO Rx#:[id number] Intake, IV Titration 31.992 20.650 11.467 Amount Insulin Regular 100 unit 14.642 In Sodium Chloride 0.9% 100 ml @ Per Protocol IV .Q0M PITO Rx#:[id number] Insulin Regular 100 unit 17.35 20.650 11.467 In Sodium Chloride 0.9% 100 ml @ Titrate IV .Q0M PITO Rx#:[id number] Oral 300 Blood Product 0 310 Rc As-1 Unit 0 310 [id number] Output: Chest Tube Drainage 290 370 50 L pleural 190 200 50 Medistinalx2 100 170 0 Drainage 25 Left Arm 25 Urine 290 475 80 Other: Voiding Method Indwelling Catheter Indwelling Catheter Indwelling Catheter ABP, PAP, CO, CI - Last Documented Arterial Blood Pressure 98/43 Pulmonary Artery Pressure 32/12 Cardiac Output 5.2 Cardiac Index 3.6 - Exam GENERAL EXAM: Revealed a 65-year-old white male pleasant in no distress sitting at the bedside chair, patient is on 2 L nasal cannula HEAD: Normocephalic. Atraumatic EYES: PERRLA, EOMI, nonicteric NOSE: Clear with pink turbinates. THROAT: Moist mucous membranes, no erythema, no exudates NECK: Right IJ Castaner-Reva catheter in place. No masses, no JVD. CHEST: Sternal dressing dry and intact. LUNGS: Clear bilaterally no rhonchi no wheezes CVS: S1 and S2 normal with no audible murmur, regular rhythm. Positive pericardial rub ABDOMEN: No hepatosplenomegaly, hypoactive bowel sounds, no guarding or rigidity. SKIN: No rashes CENTRAL NERVOUS SYSTEM: Alert and oriented x 3 no gross focal deficit. EXTREMITIES: No clubbing edema or cyanosis - Labs CBC & Chem 7: 04/30/25 03:00 04/30/25 03:00 Labs: Abnormal Lab Results - Last 24 Hours (Table) 04/22/25 04/29/25 04/29/25 Range/Units 14:10 14:19 15:07 RBC (4.40-5.60) 10*6/uL Hgb (13.0-17.0) g/dL Hct (39.6-50.0) % MPV (9.5-12.2) fL Immature Gran # (0.00-0.04) 10*3/uL Neutrophils # (1.80-7.70) 10*3/uL Sodium (137-145) mmol/L Carbon Dioxide (22-30) mmol/L BUN (9-20) mg/dL Creatinine (0.66-1.25) mg/dL POC Glucose (mg/dL) 234 H 223 H (70-110) mg/dL Total Protein (6.3-8.2) g/dL Crossmatch See Detail 04/29/25 04/29/25 04/29/25 Range/Units 16:09 18:13 19:06 RBC (4.40-5.60) 10*6/uL Hgb (13.0-17.0) g/dL Hct (39.6-50.0) % MPV (9.5-12.2) fL Immature Gran # (0.00-0.04) 10*3/uL Neutrophils # (1.80-7.70) 10*3/uL Sodium (137-145) mmol/L Carbon Dioxide (22-30) mmol/L BUN (9-20) mg/dL Creatinine (0.66-1.25) mg/dL POC Glucose (mg/dL) 172 H 124 H 117 H (70-110) mg/dL Total Protein (6.3-8.2) g/dL Crossmatch 04/29/25 04/29/25 04/30/25 Range/Units 21:15 23:31 00:15 RBC (4.40-5.60) 10*6/uL Hgb (13.0-17.0) g/dL Hct (39.6-50.0) % MPV (9.5-12.2) fL Immature Gran # (0.00-0.04) 10*3/uL Neutrophils # (1.80-7.70) 10*3/uL Sodium (137-145) mmol/L Carbon Dioxide (22-30) mmol/L BUN (9-20) mg/dL Creatinine (0.66-1.25) mg/dL POC Glucose (mg/dL) 112 H 163 H 154 H (70-110) mg/dL Total Protein (6.3-8.2) g/dL Crossmatch 04/30/25 04/30/25 04/30/25 Range/Units 01:24 03:00 03:00 RBC 2.71 L (4.40-5.60) 10*6/uL Hgb 7.9 L (13.0-17.0) g/dL Hct 23.6 L (39.6-50.0) % MPV 9.2 L (9.5-12.2) fL Immature Gran # 0.05 H (0.00-0.04) 10*3/uL Neutrophils # 7.71 H (1.80-7.70) 10*3/uL Sodium 136 L (137-145) mmol/L Carbon Dioxide 21 L (22-30) mmol/L BUN 32 H (9-20) mg/dL Creatinine 1.33 H (0.66-1.25) mg/dL POC Glucose (mg/dL) 124 H (70-110) mg/dL Total Protein 5.9 L (6.3-8.2) g/dL Crossmatch 04/30/25 04/30/25 04/30/25 Range/Units 04:30 05:08 08:48 RBC (4.40-5.60) 10*6/uL Hgb (13.0-17.0) g/dL Hct (39.6-50.0) % MPV (9.5-12.2) fL Immature Gran # (0.00-0.04) 10*3/uL Neutrophils # (1.80-7.70) 10*3/uL Sodium (137-145) mmol/L Carbon Dioxide (22-30) mmol/L BUN (9-20) mg/dL Creatinine (0.66-1.25) mg/dL POC Glucose (mg/dL) 142 H 142 H 152 H (70-110) mg/dL Total Protein (6.3-8.2) g/dL Crossmatch 04/30/25 04/30/25 04/30/25 Range/Units 10:01 11:15 12:01 RBC (4.40-5.60) 10*6/uL Hgb (13.0-17.0) g/dL Hct (39.6-50.0) % MPV (9.5-12.2) fL Immature Gran # (0.00-0.04) 10*3/uL Neutrophils # (1.80-7.70) 10*3/uL Sodium (137-145) mmol/L Carbon Dioxide (22-30) mmol/L BUN (9-20) mg/dL Creatinine (0.66-1.25) mg/dL POC Glucose (mg/dL) 196 H 140 H 113 H (70-110) mg/dL Total Protein (6.3-8.2) g/dL Crossmatch Assessment and Plan Assessment: Impression: Triple-vessel coronary artery disease status post CABG, three-vessel bypass grafting surgery, postoperative day #2 Paroxysmal atrial fibrillation, status post exclusion of the left atrial appendage and bilateral pulmonary vein isolation with radiofrequency bipolar clamp from AtriCure. Benign essential hypertension Dyslipidemia Type 2 diabetes with baseline hemoglobin A1c of 7.7 Hypothyroidism History of sepsis with bacteremia in 2023 along with acute kidney injury and septic shock with rhabdomyolysis in September 21, 2024 Remote history of nicotine dependence/ex-smoker GERD without esophagitis, Degenerative joint disease Recommendation: Continue midodrine patient received a unit of packed RBCs for lo w hemoglobin earlier this morning. Continue medical therapy including aspirin statin Plavix and beta-blockers Continue incentive spirometry Continue GI and DVT prophylaxis Ambulate as tolerated Continue pain control regimen Continue insulin Daily monitoring of chest x-rays Daily monitoring of labs Will continue to follow Time with Patient: Less than 30
[2025-04-30 14:07] LABS: Glucose,Whole Blood 193 mg/dL (70-110)
[2025-04-30 16:04] LABS: Glucose,Whole Blood 207 mg/dL (70-110)
[2025-04-30 17:10] LABS: Glucose,Whole Blood 173 mg/dL (70-110)
[2025-04-30] MEDS ORDERED: MD COMMUNICATION TO PHARMACY 1 EACH MISC PO PRN (17:11)
[2025-04-30 18:14] LABS: Glucose,Whole Blood 134 mg/dL (70-110)
[2025-04-30 19:01] LABS: Glucose,Whole Blood 178 mg/dL (70-110)
[2025-04-30 20:18] LABS: Glucose,Whole Blood 178 mg/dL (70-110)
--- NOTE | 2025-04-30 21:24 | PN ---
PROGRESS NOTE DATE OF SERVICE: 04/30/2025 SUBJECTIVE: This is a 65-year-old gentleman, who was admitted after CAD, CABG, is improving significantly. The patient is being closely monitored. The patient is still on insulin drip for better control of diabetes mellitus. The sugars are between 130 and 193. PAST MEDICAL HISTORY: Reviewed. REVIEW OF SYSTEMS: A 14-point review of systems negative except as mentioned earlier. CURRENT MEDICATIONS: Reviewed. PHYSICAL EXAMINATION: VITAL SIGNS: Pulse is 76, blood pressure 90/60, respirations 20. HEENT: Conjunctivae normal. NECK: No jugular venous distention. CARDIOVASCULAR: S1, S2. RESPIRATIONS: Breath sounds diminished at the bases with few scattered rhonchi. ABDOMEN: Soft. NERVOUS SYSTEM: Nonfocal. LABORATORY DATA: Glucose noted. Hemoglobin 7.9 and creatinine is 1.33. ASSESSMENT: 1. Coronary artery disease status post coronary artery bypass graft. 2. Diabetes mellitus type 2 on insulin drip. 3. History of atrial fibrillation. 4. Hypertension. 5. Hyperlipidemia. 6. History of degenerative joint disease. 7. History of EtOH. 8. History of sepsis. 9. Multiple complex medical issues. RECOMMENDATIONS: Recommend to continue current management and continue symptomatic treatment. Otherwise, monitor blood sugars closely and continue insulin drip per protocol. I would recommend a combination of long-acting and short-acting insulin after the insulin drip is over. Other than that, we will continue to monitor, repeat labs, incentive spirometry. Closely follow with Cardiothoracic Surgery. Further condition to follow. MMODL / IJN: [id number] /
[2025-04-30 22:05] LABS: Glucose,Whole Blood 93 mg/dL (70-110)
[2025-04-30 23:46] LABS: Glucose,Whole Blood 121 mg/dL (70-110)
[2025-05-01 02:19] LABS: Glucose,Whole Blood 99 mg/dL (70-110)
[2025-05-01 04:12] LABS: Glucose,Whole Blood 136 mg/dL (70-110)
[2025-05-01 04:47] LABS: Basophils # (A) 0.02 10*3/uL (0.00-0.10); Basophils % (A) 0.2 %; Eosinophils # (A) 0.06 10*3/uL (0.04-0.35); Eosinophils % (A) 0.6 %; HCT 22.2 % (39.6-50.0); HGB 7.3 g/dL (13.0-17.0); Lymphocytes # (A) 1.05 10*3/uL (0.90-5.00); Lymphocytes % (A) 11.3 %; MCHC 32.9 g/dL (32.0-37.0); MCV 88.1 fL (80.0-97.0); Mean Platelet Volume 9.3 fL (9.5-12.2); Monocytes % (A) 8.6 %; Neutrophils % (A) 78.4 %; Platelet Count 162 10*3/uL (140-440); RBC 2.52 10*6/uL (4.40-5.60); RDW 19.7 % (11.5-14.5); WBC 9.31 10*3/uL (4.50-10.00)
[2025-05-01 05:23] LABS: ALT <6 U/L (4-49); AST 27 U/L (17-59); African American GFR (CKD) 51 (>60 ml/min/1.73 sqM); Albumin 3.5 g/dL (3.5-5.0); Alkaline Phosphatase 114 U/L (38-126); Anion Gap 13 mmol/L; Blood Urea Nitrogen 43 mg/dL (9-20); Calcium 8.8 mg/dL (8.4-10.2); Carbon Dioxide 16 mmol/L (22-30); Chloride 106 mmol/L (98-107); Glucose 138 mg/dL (74-99); Non-African American GFR(CKD) 45 (>60 ml/min/1.73 sqM); Potassium 4.6 mmol/L (3.5-5.1); Sodium 135 mmol/L (137-145); Total Bilirubin 0.8 mg/dL (0.2-1.3); Total Protein 5.9 g/dL (6.3-8.2)
[2025-05-01 06:37] LABS: Glucose,Whole Blood 114 mg/dL (70-110)
[2025-05-01 06:58] LABS: Glucose,Whole Blood 115 mg/dL (70-110)
[2025-05-01 07:33] LABS: ABG Base Excess -3.6 mmol/L; ABG HCO3 20 mmol/L (21-25); ABG Oxygen Saturation 94.9 % (94-97); ABG PCO2 32 mmHg (35-45); ABG PH 7.42 (7.35-7.45); ABG PO2 68 mmHg (83-108); ABG TCO2 21 mmol/L (19-24)
[2025-05-01 07:35] LABS: Allen Test Performed? NO
[2025-05-01] MEDS: SODIUM BICARBONATE TAB 650 MG TAB PO SCH (07:50)
--- NOTE | 2025-05-01 08:03 | XR ---
EXAMINATION TYPE: XR chest 1V portable DATE OF EXAM: 05/01/2025 6:34 AM COMPARISON: 04/30/2025 CLINICAL INDICATION: Male, 65 years old with history of post open heart, TECHNIQUE: XR chest 1V portable view(s) obtained. FINDINGS: The heart size is normal. The pulmonary vasculature is normal. Left lower lobe infiltrate is present. There is elevation the right hemidiaphragm. Subpulmonic effusion may be present. Catheter sheath is o n the right IMPRESSION: 1. Left lower lobe infiltrate. Correlate for atelectasis or pneumonia. 2. Subpulmonic effusion may be present on the right. [facility], , 05/01/2025 8:00 AM
[2025-05-01] MEDS: METOCLOPRAMIDE 5 MG/ML 2 ML VIAL IVP PRN (08:06)
--- NOTE | 2025-05-01 08:56 | P.PN ---
Subjective Progress Note Date: 05/01/25 Principal diagnosis: Triple-vessel coronary artery disease, status post remote inferior wall myocardial infarction with previous PCI to the right and the circumflex system, moderate left ventricular dysfunction, fixed defect on the inferior wall on stress test. Past medical history significant for diabetes mellitus, hypertension, hyperlipidemia, recently diagnosed hypothyroidism, anemia, right knee severe arthritis, paroxysmal atrial fibrillation, sepsis bacteremia in September of 2024 EtOH abuse, quit drinking in September 2024, history of rhabdomyolysis secondary to immobility in September 2024, acute kidney injury secondary to septic shock and rhabdomyolysis in September 2024, GERD, and remote history of nicotine dependence. POD #3 triple-vessel coronary artery bypass grafting using the in situ left intramammary artery to the left anterior descending artery, left radial artery from the aorta to the obtuse marginal artery, reverse saphenous vein graft from the aorta to the very distal aspect of the posterior descending artery, bilateral pulmonary vein isolation using radiofrequency bipolar clamp from AtriCure, exclusion of the left atrial appendage using a 35mm, AtriClip, endoscopic harvesting of the left radial artery, endoscopic harvesting of the right greater saphenous vein from the lower leg, intraoperative graft flow measurements using the [employer] system, intraoperative transesophageal echocardiogram and epiaortic scanning. Postoperative acute blood loss anemia, expected given the patient's history of anemia, and hemodilution and cardiopulmonary bypass. The patient was seen and examined at his bedside this morning May 01, 2025 in the intensive care unit. He is currently sitting up to the bedside chair, is awake, alert, oriented x 3 and is in no acute apparent distress. Denies any complaints of shortness of breath this morning, although he is complaining of some surgical pain to his chest tube insertion sites mainly his left chest. The patient reports he feels improved today from yesterday. He has been up ambulating in the intensive care unit hallway with standby assistance from nursing and therapy staff and tolerating well. Right IJ cordis remains in place with current CVP pressure 9 mmHg. He has been afebrile in the last 24 hours. Oxygen saturations are 96% on room air and he is achieving 1250 mL on his incentive spirometry with encouragement. Patient's Blake catheter was removed yesterday, and he is urinating without difficulty with 425 mL of urine output in the last 8 hours. Laboratory and chest x-ray results were reviewed. Left pleural chest tube remains in place to low continuous wall suction -20 cm H2O. Draining thin serosanguineous drainage with 60 mL output in the last 8 hours and 160 mL output in the last 24 hours. Objective - Vital Signs Vital signs: Vital Signs Temp 98.2 F 05/01/25 04:00 Pulse 80 05/01/25 07:00 Resp 17 05/01/25 07:00 BP 109/54 05/01/25 07:00 Pulse Ox 98 05/01/25 07:00 FiO2 45 04/28/25 16:20 Intake & Output 04/30/25 05/01/25 05/01/25 18:59 06:59 18:59 Intake Total 726.217 318.40 26 Output Total 360 485 0 Balance 366.217 -166.60 26 Weight 78 kg Intake: IV 338 286 26 Pressure Bags 78 66 6 Sodium Chloride 0.9% 1, 260 220 20 000 ml @ 20 mls/hr IV . Q24H PITO Rx#:[id number] Intake, IV Titration 28.217 32.40 Amount Insulin Regular 100 unit 28.217 32.40 In Sodium Chloride 0.9% 100 ml @ Titrate IV .Q0M PITO Rx#:[id number] Oral 360 Output: Chest Tube Drainage 160 60 0 L pleural 160 60 0 Medistinalx2 0 Urine 200 425 0 Other: Voiding Method Indwelling Catheter Indwelling Catheter # Voids 1 ABP, PAP, CO, CI - Last Documented Arterial Blood Pressure 117/44 Pulmonary Artery Pressure 32/12 Cardiac Output 5.2 Cardiac Index 3.6 - Exam CONSTITUTIONAL: Sitting up to the bedside chair in the intensive care unit, appears comfortable, cooperative, no apparent acute distress. HEENT: Neck is supple, no JVD, no lymphadenopathy. Right IJ Cordis in place and functioning. RESPIRATORY: Lungs sounds essentially clear throughout, diminished to his bilateral bases. Respirations are symmetrical and nonlabored. Currently on room air with oxygen saturations 96%. Able to achieve 1250mL on his incentive spirometry. Strong cough. CARDIOVASCULAR: Regular rhythm and rate. S1 and S2 present, negative for S3, gallop or murmur. Sternum is stable. Palpable peripheral pulses bilaterally. No calf pain or tenderness noted. Heart hugger in place with patient demonstrating appropriate use. Knee-high CAMI hose and sequential compression devices in place to his bilateral lower extremities. GASTROINTESTINAL: Abdomen soft, nontender, nondistended. Active bowel sounds present 4 quadrants. Tolerating diet. Passing flatus. No guarding or rigidity. GENITOURINARY: Continues to void. Urine output 42 Lasix 40 p.o. twice daily and see what more 5 mL in the last 8 hours. INTEGUMENTARY: Skin is warm and dry with no evidence of clubbing or cyanosis. Midline sternal incision clean dry and well approximated, covered with dry intact dressing. Right lower extremity EVH sites well approximated without redness or drainage. Left arm radial artery harvest sites clean, dry and approximated. No drainage or redness is present. NEUROLOGIC: Cranial nerves II through XII intact. No focal deficits. MUSKULOSKELETAL: Able to move all extremities, strength equal bilaterally, generalized weakness. Chronic weakness to his right knee. PSYCHIATRIC: Alert and oriented to person place and time, appropriate affect, intact judgment and insight. INVASIVE LINES AND TUBES: Left pleural chest tubes present and connected to low continuous wall suction, no air leaks present. Left pleural chest tube with 60 mL of thin serosanguineous drainage overnight, 160 mL output in the last 24 hours. Atrial epicardial pacemaker wires present, connected to generator, AAI backup rate 50 bpm. Right internal jugular Cordis, right radial arterial line present. Current CVP 9 mmHg. - Allied health notes Allied health notes reviewed: nursing - Labs CBC & Chem 7: 05/01/25 04:30 05/01/25 04:30 Labs: Abnormal Lab Results - Last 24 Hours (Table) 04/30/25 04/30/25 04/30/25 Range/Units 08:48 10:01 11:15 RBC (4.40-5.60) 10*6/uL Hgb (13.0-17.0) g/dL Hct (39.6-50.0) % MPV (9.5-12.2) fL Immature Gran # (0.00-0.04) 10*3/uL ABG pCO2 (35-45) mmHg ABG pO2 (83-108) mmHg ABG HCO3 (21-25) mmol/L Hemoglobin (13.0-17.5) gm/dL Sodium (137-145) mmol/L Carbon Dioxide (22-30) mmol/L BUN (9-20) mg/dL Creatinine (0.66-1.25) mg/dL Glucose (74-99) mg/dL POC Glucose (mg/dL) 152 H 196 H 140 H (70-110) mg/dL Total Protein (6.3-8.2) g/dL 04/30/25 04/30/25 04/30/25 Range/Units 12:01 14:05 16:03 RBC (4.40-5.60) 10*6/uL Hgb (13.0-17.0) g/dL Hct (39.6-50.0) % MPV (9.5-12.2) fL Immature Gran # (0.00-0.04) 10*3/uL ABG pCO2 (35-45) mmHg ABG pO2 (83-108) mmHg ABG HCO3 (21-25) mmol/L Hemoglobin (13.0-17.5) gm/dL Sodium (137-145) mmol/L Carbon Dioxide (22-30) mmol/L BUN (9-20) mg/dL Creatinine (0.66-1.25) mg/dL Glucose (74-99) mg/dL POC Glucose (mg/dL) 113 H 193 H 207 H (70-110) mg/dL Total Protein (6.3-8.2) g/dL 04/30/25 04/30/25 04/30/25 Range/Units 17:09 18:13 19:00 RBC (4.40-5.60) 10*6/uL Hgb (13.0-17.0) g/dL Hct (39.6-50.0) % MPV (9.5-12.2) fL Immature Gran # (0.00-0.04) 10*3/uL ABG pCO2 (35-45) mmHg ABG pO2 (83-108) mmHg ABG HCO3 (21-25) mmol/L Hemoglobin (13.0-17.5) gm/dL Sodium (137-145) mmol/L Carbon Dioxide (22-30) mmol/L BUN (9-20) mg/dL Creatinine (0.66-1.25) mg/dL Glucose (74-99) mg/dL POC Glucose (mg/dL) 173 H 134 H 178 H (70-110) mg/dL Total Protein (6.3-8.2) g/dL 04/30/25 04/30/2525 Range/Units 20:17 23:44 04:10 RBC (4.40-5.60) 10*6/uL Hgb (13.0-17.0) g/dL Hct (39.6-50.0) % MPV (9.5-12.2) fL Immature Gran # (0.00-0.04) 10*3/uL ABG pCO2 (35-45) mmHg ABG pO2 (83-108) mmHg ABG HCO3 (21-25) mmol/L Hemoglobin (13.0-17.5) gm/dL Sodium (137-145) mmol/L Carbon Dioxide (22-30) mmol/L BUN (9-20) mg/dL Creatinine (0.66-1.25) mg/dL Glucose (74-99) mg/dL POC Glucose (mg/dL) 178 H 121 H 136 H (70-110) mg/dL Total Protein (6.3-8.2) g/dL 05/01/25 05/01/25 05/01/25 Range/Units 04:30 04:30 06:36 RBC 2.52 L (4.40-5.60) 10*6/uL Hgb 7.3 L (13.0-17.0) g/dL Hct 22.2 L (39.6-50.0) % MPV 9.3 L (9.5-12.2) fL Immature Gran # 0.08 H (0.00-0.04) 10*3/uL ABG pCO2 (35-45) mmHg ABG pO2 (83-108) mmHg ABG HCO3 (21-25) mmol/L Hemoglobin (13.0-17.5) gm/dL Sodium 135 L (137-145) mmol/L Carbon Dioxide 16 L (22-30) mmol/L BUN 43 H (9-20) mg/dL Creatinine 1.62 H (0.66-1.25) mg/dL Glucose 138 H (74-99) mg/dL POC Glucose (mg/dL) 114 H (70-110) mg/dL Total Protein 5.9 L (6.3-8.2) g/dL 05/01/25 05/01/25 Range/Units 06:58 07:30 RBC (4.40-5.60) 10*6/uL Hgb (13.0-17.0) g/dL Hct (39.6-50.0) % MPV (9.5-12.2) fL Immature Gran # (0.00-0.04) 10*3/uL ABG pCO2 32 L (35-45) mmHg ABG pO2 68 L (83-108) mmHg ABG HCO3 20 L (21-25) mmol/L Hemoglobin 7.7 L (13.0-17.5) gm/dL Sodium (137-145) mmol/L Carbon Dioxide (22-30) mmol/L BUN (9-20) mg/dL Creatinine (0.66-1.25) mg/dL Glucose (74-99) mg/dL POC Glucose (mg/dL) 115 H (70-110) mg/dL Total Protein (6.3-8.2) g/dL - Imaging and Cardiology Chest x-ray: report reviewed, image reviewed Assessment and Plan Assessment: Triple-vessel coronary artery disease, status post PCI to his right and circumflex system, status post three-vessel coronary artery bypass grafting surgery Paroxysmal atrial fibrillation, status post exclusion of the left atrial appendage and bilateral pulmonary vein isolation using radiofrequency bipolar clamp from Atricure Postoperative acute blood loss anemia, expected due to his history of anemia and to cardiopulmonary bypass and hemodilution, transfused for 1 unit of packed red blood cells on 04/29/2025 Hypertension Hyperlipidemia, treated Remote history of inferior wall myocardial infarction Moderate left ventricular dysfunction Diabetes mellitus type 2, preoperative hemoglobin A1c 7.7% Hypothyroidism History of sepsis bacteremia in 2023 History of rhabdomyolysis in September 2024 History of acute kidney injury secondary to septic shock and rhabdomyolysis in September 2024 History of EtOH abuse, quit drinking in September 2024 Remote history of nicotine dependence GERD Osteoarthritis Plan: Continue to maximize medical therapy with aspirin, statin, Plavix, and beta- katja, will increase beta-katja therapy as tolerated. We will start calcium channel katja when blood pressure able to tolerate for radial artery spasm prophylaxis. 1 g of calcium gluconate IV piggyback x 1 now. No diuresis today. Wean oxygen as tolerated, bronchodilator management per pulmonary/critical care medicine. Encourage incentive spirometry use 10 times every hour while awake. Increase activity as tolerated, PT/OT/cardiac rehab following. Will monitor daily labs and chest x-rays, electrolyte replacement per protocol. GI/DVT prophylaxis. Pain control per current medication regimen. Insulin management per internal medicine, patient should remain on IV continuous insulin for 48 hours, then may transition to subcutaneous insulin per protocol. Preoperative hemoglobin A1c 7.7%. Remove right IJ cordis. Remove right radial arterial line. We remove his left pleural chest tube. Continue to monitor strict accurate intake and output. May bladder scan every 6 hours and as needed postvoid residuals. Continue the patient's home meds of vitamin D, ferrous sulfate, levothyroxine sodium, magnesium oxide and Protonix. More recommendations to follow based on patient's clinical course. Time with Patient: Greater than 30
[2025-05-01] MEDS: CALCIUM GLUCONATE IN NACL 1 GM in SALINE 1 100ML.BAG IVPB ONE (09:58)
[2025-05-01 09:59] LABS: Glucose,Whole Blood 259 mg/dL (70-110)
--- NOTE | 2025-05-01 10:30 | P.PN ---
Subjective Progress Note Date: 05/01/25 HPI: [This gentleman is status post aortocoronary bypass surgery. He is doing well today blood pressure is good he feels better. Pain is less at the site of incision. He is maintaining sinus rhythm. He is not on any pressors.]. PHYSICIAL EXAM: [Vitals are stable no JVD S1-S2 heard normally no significant murmurs lungs reveal improved air entry abdomen is soft lower extremities reveal diminished pulses Central nervous system grossly within normal limits. IMPRESSION: 1. [S/p aortocoronary bypass surgery doing well]. 2. [Type 2 diabetes mellitus]. 3. [CAD with prior PCI]. 4. []. 5. []. RECOMMENDATIONS: [His creatinine is slightly high I am recommending that we increase oral hydration continue incentive spirometry and pulmonary toilet. Patient is doing better compared to yesterday advised to drink more oral fluids]. Objective - Vital Signs Vital signs: Vital Signs Temp 98.5 F 05/01/25 08:00 Pulse 88 05/01/25 09:00 Resp 38 H 05/01/25 09:00 BP 92/51 05/01/25 09:00 Pulse Ox 85 L 05/01/25 09:00 FiO2 45 04/28/25 16:20 Intake & Output 04/30/25 05/01/25 05/01/25 18:59 06:59 18:59 Intake Total 726.217 318.40 78 Output Total 360 485 0 Balance 366.217 -166.60 78 Weight 78 kg Intake: IV 338 286 78 Pressure Bags 78 66 18 Sodium Chloride 0.9% 1, 260 220 60 000 ml @ 20 mls/hr IV . Q24H P[facility]O Rx#:[id number] Intake, IV Titration 28.217 32.40 Amount Insulin Regular 100 unit 28.217 32.40 In Sodium Chloride 0.9% 100 ml @ Titrate IV .Q0M PITO Rx#:[id number] Oral 360 Output: Chest Tube Drainage 160 60 0 L pleural 160 60 0 Medistinalx2 0 Urine 200 425 0 Other: Voiding Method Indwelling Catheter Indwelling Catheter Indwelling Catheter # Voids 1 ABP, PAP, CO, CI - Last Documented Arterial Blood Pressure 92/34 Pulmonary Artery Pressure 32/12 Cardiac Output 5.2 Cardiac Index 3.6 - Labs CBC & Chem 7: 05/01/25 04:30 05/01/25 04:30 Labs: Abnormal Lab Results - Last 24 Hours (Table) 04/30/25 04/30/25 04/30/25 Range/Units 11:15 12:01 14:05 RBC (4.40-5.60) 10*6/uL Hgb (13.0-17.0) g/dL Hct (39.6-50.0) % MPV (9.5-12.2) fL Immature Gran # (0.00-0.04) 10*3/uL ABG pCO2 (35-45) mmHg ABG pO2 (83-108) mmHg ABG HCO3 (21-25) mmol/L Hemoglobin (13.0-17.5) gm/dL Sodium (137-145) mmol/L Carbon Dioxide (22-30) mmol/L BUN (9-20) mg/dL Creatinine (0.66-1.25) mg/dL Glucose (74-99) mg/dL POC Glucose (mg/dL) 140 H 113 H 193 H (70-110) mg/dL Total Protein (6.3-8.2) g/dL 04/30/25 04/30/25 04/30/25 Range/Units 16:03 17:09 18:13 RBC (4.40-5.60) 10*6/uL Hgb (13.0-17.0) g/dL Hct (39.6-50.0) % MPV (9.5-12.2) fL Immature Gran # (0.00-0.04) 10*3/uL ABG pCO2 (35-45) mmHg ABG pO2 (83-108) mmHg ABG HCO3 (21-25) mmol/L Hemoglobin (13.0-17.5) gm/dL Sodium (137-145) mmol/L Carbon Dioxide (22-30) mmol/L BUN (9-20) mg/dL Creatinine (0.66-1.25) mg/dL Glucose (74-99) mg/dL POC Glucose (mg/dL) 207 H 173 H 134 H (70-110) mg/dL Total Protein (6.3-8.2) g/dL 04/30/25 04/30/25 04/30/25 Range/Units 19:00 20:17 23:44 RBC (4.40-5.60) 10*6/uL Hgb (13.0-17.0) g/dL Hct (39.6-50.0) % MPV (9.5-12.2) fL Immature Gran # (0.00-0.04) 10*3/uL ABG pCO2 (35-45) mmHg ABG pO2 (83-108) mmHg ABG HCO3 (21-25) mmol/L Hemoglobin (13.0-17.5) gm/dL Sodium (137-145) mmol/L Carbon Dioxide (22-30) mmol/L BUN (9-20) mg/dL Creatinine (0.66-1.25) mg/dL Glucose (74-99) mg/dL POC Glucose (mg/dL) 178 H 178 H 121 H (70-110) mg/dL Total Protein (6.3-8.2) g/dL 05/01/25 05/01/25 05/01/25 Range/Units 04:10 04:30 04:30 RBC 2.52 L (4.40-5.60) 10*6/uL Hgb 7.3 L (13.0-17.0) g/dL Hct 22.2 L (39.6-50.0) % MPV 9.3 L (9.5-12.2) fL Immature Gran # 0.08 H (0.00-0.04) 10*3/uL ABG pCO2 (35-45) mmHg ABG pO2 (83-108) mmHg ABG HCO3 (21-25) mmol/L Hemoglobin (13.0-17.5) gm/dL Sodium 135 L (137-145) mmol/L Carbon Dioxide 16 L (22-30) mmol/L BUN 43 H (9-20) mg/dL Creatinine 1.62 H (0.66-1.25) mg/dL Glucose 138 H (74-99) mg/dL POC Glucose (mg/dL) 136 H (70-110) mg/dL Total Protein 5.9 L (6.3-8.2) g/dL 05/01/25 05/01/25 05/01/25 Range/Units 06:36 06:58 07:30 RBC (4.40-5.60) 10*6/uL Hgb (13.0-17.0) g/dL Hct (39.6-50.0) % MPV (9.5-12.2) fL Immature Gran # (0.00-0.04) 10*3/uL ABG pCO2 32 L (35-45) mmHg ABG pO2 68 L (83-108) mmHg ABG HCO3 20 L (21-25) mmol/L Hemoglobin 7.7 L (13.0-17.5) gm/dL Sodium (137-145) mmol/L Carbon Dioxide (22-30) mmol/L BUN (9-20) mg/dL Creatinine (0.66-1.25) mg/dL Glucose (74-99) mg/dL POC Glucose (mg/dL) 114 H 115 H (70-110) mg/dL Total Protein (6.3-8.2) g/dL 05/01/25 Range/Units 09:58 RBC (4.40-5.60) 10*6/uL Hgb (13.0-17.0) g/dL Hct (39.6-50.0) % MPV (9.5-12.2) fL Immature Gran # (0.00-0.04) 10*3/uL ABG pCO2 (35-45) mmHg ABG pO2 (83-108) mmHg ABG HCO3 (21-25) mmol/L Hemoglobin (13.0-17.5) gm/dL Sodium (137-145) mmol/L Carbon Dioxide (22-30) mmol/L BUN (9-20) mg/dL Creatinine (0.66-1.25) mg/dL Glucose (74-99) mg/dL POC Glucose (mg/dL) 259 H (70-110) mg/dL Total Protein (6.3-8.2) g/dL
[2025-05-01 11:48] LABS: Glucose,Whole Blood 209 mg/dL (70-110)
--- NOTE | 2025-05-01 12:02 | P.PN ---
Subjective Progress Note Date: 05/01/25 Principal diagnosis: POD # 3 triple-vessel coronary artery bypass grafting using the in situ left intramammary artery to the left anterior descending artery, left radial artery from the aorta to the obtuse marginal artery, reverse saphenous vein graft from the aorta to the very distal aspect of the posterior descending artery, bilateral pulmonary vein isolation using radiofrequency bipolar clamp from AtriCure, exclusion of the left atrial appendage using a 35mm, AtriClip, en doscopic harvesting of the left radial artery, endoscopic harvesting of the right greater saphenous vein from the lower leg, intraoperative graft flow measurements using the [employer] system, intraoperative transesophageal echocardiogram and epiaortic scanning. This is a 65-year-old male patient with a known history of hypertension, hyperlipidemia, diabetes mellitus, paroxysmal atrial fibrillation, chronic anemia, previous chronic tobacco dependence, previous alcohol abuse, marijuana use, coronary artery disease with previous stent placement. He was recently found to have calcified coronary artery disease with severe disease in the mid LAD, proximal and mid left circumflex, mid to distal RCA and was recommended coronary revascularization. He was brought in today electively for the surgery. He did undergo coronary artery bypass grafting utilizing the GEIGER to the LAD, left radial artery to the obtuse marginal artery, reverse saphenous vein graft to the distal aspect of the posterior descending artery. Clipping of the left atrial appendage. He is seen now in the intensive care unit intubated and on the mechanical ventilator. Current settings are assist-control mode at a rate o f 12, tidal volume 500, FiO2 100% and a PEEP of 5. Arterial blood gases revealed a PO2 of 369, PCO2 of 36 and a pH of 7.43. FiO2 titrated down to 45% currently. White count 7.2. Hemoglobin 8.2. Platelets 113. Sodium 141. Potassium 4.2. Bicarb 23. BUN 24. Creatinine 1.08. Glucose 104. He is currently on a nitroglycerin drip at 5 mcg/min. Sedated on propofol at 30 mcg/kg/min. Normal saline at 50 mL/h. Cardiac output 4.1. Cardiac index 2.2. PA pressures 33/18. CVP 14. Chest x-ray reveals right lower lobe atelectatic changes. Very tiny left apical pneumothorax. Mediastinal and left sided chest tubes remain in place. Endotracheal tube 4 cm above the marvel. Nasogastric tube in place. Right [place]-Reva catheter tip in the main pulmonary artery region. Pacer wires in place. He has been initiated on DuoNeb inhalations. Heparin for DVT prophylaxis. Patient was seen today on 04/29/2025, patient was extubated uneventfully yesterday, he is now on 2 L nasal cannula, patient is sitting in the bedside chair, fairly comfortable, he is complaining of some pain patient does have chronic pain syndrome and is mostly on narcotics on outpatient basis for chronic low back pain. Patient is now postoperative day #1, he is on IV fluid at 50 cc/h he is also on insulin, cardiac output is 5.5 cardiac index is 2.9, achieving 1000 cc on his incentive spirometry. Chest x-ray showed mostly right basilar atelectasis. Otherwise fairly unremarkable. Labs today were reviewed, WBC 7 hemoglobin 7.7 platelets 138, basic metabolic profile is normal creatinine is 1.16. Patient was seen today on 04/30/2025, patient is doing well, he was extubated uneventfully post CABG, today he is on 2 L nasal cannula, IV fluid KVO, patient is relatively hypotensive on midodrine, received 3 infusions of albumin he also received a heads of packed RBCs, remains on insulin at 2 units/h. Blood press ure was low but seems to be better during my evaluation. Not requiring any pressors. Chest x-ray was reviewed, he has minimal basilar atelectasis no evidence of pulmonary edema. There is cardiomegaly. Patient was seen today on 05/01/2025, doing well, patient is on room air, had an ABG earlier showing a pO2 of 68 pCO2 52 pH of 7.42 patient has a relatively uneventful postoperative course, chest x-ray today is reassuring, patient is not in any distress, pain seems to be fairly well-controlled, patient to have his chest tube removed today. CBC showed WBC count of 9.3 hemoglobin 7.3, basic met abolic profile is normal except for bicarb being low at 16-21, BUN is 43 creatinine 1.62 definite rise in his creatinine compared to baseline of 1.08. This is most likely related to episodes of hypotension. Objective - Vital Signs Vital signs: Vital Signs Temp 98.5 F 05/01/25 08:00 Pulse 84 05/01/25 11:09 Resp 38 H 05/01/25 09:00 BP 92/51 05/01/25 09:00 Pulse Ox 85 L 05/01/25 09:00 FiO2 45 04/28/25 16:20 Intake & Output 04/30/25 05/01/25 05/01/25 18:59 06:59 18:59 Intake Total 726.217 318.40 78 Output Total 360 485 0 Balance 366.217 -166.60 78 Weight 78 kg Intake: IV 338 286 78 Pressure Bags 78 66 18 Sodium Chloride 0.9% 1, 260 220 60 000 ml @ 20 mls/hr IV . Q24H [facility] Rx#:[id number] Intake, IV Titration 28.217 32.40 Amount Insulin Regular 100 unit 28.217 32.40 In Sodium Chloride 0.9% 100 ml @ Titrate IV .Q0M P[facility]O Rx#:[id number] Oral 360 Output: Chest Tube Drainage 160 60 0 L pleural 160 60 0 Medistinalx2 0 Urine 200 425 0 Other: Voiding Method Indwelling Catheter Indwelling Catheter Indwelling Catheter # Voids 1 ABP, PAP, CO, CI - Last Documented Arterial Blood Pressure 92/34 Pulmonary Artery Pressure 32/12 Cardiac Output 5.2 Cardiac Index 3.6 - Exam GENERAL EXAM: Revealed a 65-year-old white male pleasant in no distress sitting at the bedside chair, patient is on room air HEAD: Normocephalic. Atraumatic EYES: PERRLA, EOMI, nonicteric NOSE: Clear with pink turbinates. THROAT: Moist mucous membranes, no erythema, no exudates CHEST: Sternal dressing dry and intact. LUNGS: Clear bilaterally no rhonchi no wheezes CVS: S1 and S2 normal with no audible murmur, regular rhythm. Positive pericardial rub ABDOMEN: No hepatosplenomegaly, hypoactive bowel sounds, no guarding or rigi dity. SKIN: No rashes CENTRAL NERVOUS SYSTEM: Alert and oriented x 3 no gross focal deficit. EXTREMITIES: No clubbing edema or cyanosis - Labs CBC & Chem 7: 05/01/25 04:30 05/01/25 04:30 Labs: Abnormal Lab Results - Last 24 Hours (Table) 04/30/25 04/30/25 04/30/25 Range/Units 12:01 14:05 16:03 RBC (4.40-5.60) 10*6/uL Hgb (13.0-17.0) g/dL Hct (39.6-50.0) % MPV (9.5-12.2) fL Immature Gran # (0.00-0.04) 10*3/uL ABG pCO2 (35-45) mmHg ABG pO2 (83-108) mmHg ABG HCO3 (21-25) mmol/L Hemoglobin (13.0-17.5) gm/dL Sodium (137-145) mmol/L Carbon Dioxide (22-30) mmol/L BUN (9-20) mg/dL Creatinine (0.66-1.25) mg/dL Glucose (74-99) mg/dL POC Glucose (mg/dL) 113 H 193 H 207 H (70-110) mg/dL Total Protein (6.3-8.2) g/dL 04/30/25 04/30/25 04/30/25 Range/Units 17:09 18:13 19:00 RBC (4.40-5.60) 10*6/uL Hgb (13.0-17.0) g/dL Hct (39.6-50.0) % MPV (9.5-12.2) fL Immature Gran # (0.00-0.04) 10*3/uL ABG pCO2 (35-45) mmHg ABG pO2 (83-108) mmHg ABG HCO3 (21-25) mmol/L Hemoglobin (13.0-17.5) gm/dL Sodium (137-145) mmol/L Carbon Dioxide (22-30) mmol/L BUN (9-20) mg/dL Creatinine (0.66-1.25) mg/dL Glucose (74-99) mg/dL POC Glucose (mg/dL) 173 H 134 H 178 H (70-110) mg/dL Total Protein (6.3-8.2) g/dL 04/30/25 04/30/25 05/01/25 Range/Units 20:17 23:44 04:10 RBC (4.40-5.60) 10*6/uL Hgb (13.0-17.0) g/dL Hct (39.6-50.0) % MPV (9.5-12.2) fL Immature Gran # (0.00-0.04) 10*3/uL ABG pCO2 (35-45) mmHg ABG pO2 (83-108) mmHg ABG HCO3 (21-25) mmol/L Hemoglobin (13.0-17.5) gm/dL Sodium (137-145) mmol/L Carbon Dioxide (22-30) mmol/L BUN (9-20) mg/dL Creatinine (0.66-1.25) mg/dL Glucose (74-99) mg/dL POC Glucose (mg/dL) 178 H 121 H 136 H (70-110) mg/dL Total Protein (6.3-8.2) g/dL 05/01/25 05/01/25 05/01/25 Range/Units 04:30 04:30 06:36 RBC 2.52 L (4.40-5.60) 10*6/uL Hgb 7.3 L (13.0-17.0) g/dL Hct 22.2 L (39.6-50.0) % MPV 9.3 L (9.5-12.2) fL Immature Gran # 0.08 H (0.00-0.04) 10*3/uL ABG pCO2 (35-45) mmHg ABG pO2 (83-108) mmHg ABG HCO3 (21-25) mmol/L Hemoglobin (13.0-17.5) gm/dL Sodium 135 L (137-145) mmol/L Carbon Dioxide 16 L (22-30) mmol/L BUN 43 H (9-20) mg/dL Creatinine 1.62 H (0.66-1.25) mg/dL Glucose 138 H (74-99) mg/dL POC Glucose (mg/dL) 114 H (70-110) mg/dL Total Protein 5.9 L (6.3-8.2) g/dL 05/01/25 05/01/25 05/01/25 Range/Units 06:58 07:30 09:58 RBC (4.40-5.60) 10*6/uL Hgb (13.0-17.0) g/dL Hct (39.6-50.0) % MPV (9.5-12.2) fL Immature Gran # (0.00-0.04) 10*3/uL ABG pCO2 32 L (35-45) mmHg ABG pO2 68 L (83-108) mmHg ABG HCO3 20 L (21-25) mmol/L Hemoglobin 7.7 L (13.0-17.5) gm/dL Sodium (137-145) mmol/L Carbon Dioxide (22-30) mmol/L BUN (9-20) mg/dL Creatinine (0.66-1.25) mg/dL Glucose (74-99) mg/dL POC Glucose (mg/dL) 115 H 259 H (70-110) mg/dL Total Protein (6.3-8.2) g/dL 05/01/25 Range/Units 11:47 RBC (4.40-5.60) 10*6/uL Hgb (13.0-17.0) g/dL Hct (39.6-50.0) % MPV (9.5-12.2) fL Immature Gran # (0.00-0.04) 10*3/uL ABG pCO2 (35-45) mmHg ABG pO2 (83-108) mmHg ABG HCO3 (21-25) mmol/L Hemoglobin (13.0-17.5) gm/dL Sodium (137-145) mmol/L Carbon Dioxide (22-30) mmol/L BUN (9-20) mg/dL Creatinine (0.66-1.25) mg/dL Glucose (74-99) mg/dL POC Glucose (mg/dL) 209 H (70-110) mg/dL Total Protein (6.3-8.2) g/dL Assessment and Plan Assessment: Impression: Triple-vessel coronary artery disease status post CABG, three-vessel bypass grafting surgery, postoperative day #3 Paroxysmal atrial fibrillation, status post exclusion of the left atrial appendage and bilateral pulmonary vein isolation with radiofrequency bipolar clamp from AtriCure. Benign essential hypertension Dyslipidemia Type 2 diabetes with baseline hemoglobin A1c of 7.7 Hypothyroidism History of sepsis with bacteremia in 2023 along with acute kidney injury and septic shock with rhabdomyolysis in September 21, 2024 Remote history of nicotine dependence/ex-smoker GERD without esophagitis, Degenerative joint disease Recommendation: Continue medical therapy including aspirin statin Plavix and beta-blockers Continue incentive spirometry Continue GI and DVT prophylaxis Ambulate Chest tube to be removed today. Continue pain control regimen Daily monitoring of chest x-rays ABG was reviewed today, labs were reviewed today Will continue to follow Time with Patient: Less than 30
[2025-05-01] MEDS ORDERED: DEXTROSE 50% SYRINGE 50 ML IVP PRN ×2 (13:54)
[2025-05-01 16:54] LABS: Glucose,Whole Blood 101 mg/dL (70-110)
--- NOTE | 2025-05-01 17:44 | PN ---
PROGRESS NOTE DATE OF SERVICE: 05/01/2025 SUBJECTIVE: This is a 65-year-old gentleman who was admitted with CAD, CABG, is improving significantly. No chest pain. No palpitations. Still on insulin drip. The blood sugars are well controlled with 114 to 150. PAST MEDICAL HISTORY: Reviewed. PHYSICAL EXAMINATION: VITAL SIGNS: Pulse is 86, blood pressure ntd, respirations 25. HEENT: Conjunctivae normal. NECK: No jugular venous distention. CARDIOVASCULAR: S1, S2. ABDOMEN: Soft. NERVOUS SYSTEM: Nonfocal. LABORATORY DATA: Reviewed. ASSESSMENT: 1. Coronary artery disease, coronary artery bypass graft. 2. Diabetes mellitus, type 2, on insulin drip. 3. History of atrial fibrillation. 4. Hypertension. 5. Hyperlipidemia. 6. History of degenerative joint disease. 7. History of EtOH. 8. History of sepsis. 9. Multiple complex medical issues. RECOMMENDATIONS AND DISCUSSION: Recommend to continue current management and continue symptomatic treatment. Otherwise I would recommend initiate insulins. Guarded prognosis. Further recommendations to follow. MMODL / IJN: [id number] / [id number]
[2025-05-01] MEDS: INSULIN LISPRO (HumaLOG) 100 UNIT/ML 10 mL VL SQ SCH (18:53)
[2025-05-01] MEDS: ALBUMIN HUMAN 25% 50 ML IV ONE (19:28)
[2025-05-01] MEDS: ceFAZolin 1,000 MG in SODIUM CHLORIDE 0.9% IRRIGATIO 1,000 ML IRRIGATION ONE (19:29)
[2025-05-01] MEDS: CALCIUM CHLORIDE 100 MG/ML 10 ML SYRINGE IV ONE (19:29)
[2025-05-01] MEDS: CHLORHEXIDINE GLUCONATE 15 ML CUP MUCOUS MEM ONE (19:29)
[2025-05-01] MEDS: CLEVIDIPINE BUTYRATE 25 MG in EMPTY BAG 1 BAG IV ONE (19:29)
[2025-05-01] MEDS: ELECTROLYTE-A SOLUTION 1,000 ML with POTASSIUM CHLORIDE 40 MEQ, MAGNESIUM SULFATE 16 ME... IV ONE (19:29)
[2025-05-01] MEDS: ALBUMIN HUMAN 5% 500 ML IVPB ONE (19:29)
[2025-05-01] MEDS: ELECTROLYTE-A SOLUTION 1,000 ML with POTASSIUM CHLORIDE 100 MEQ, MAGNESIUM SULFATE 16 M... IV ONE (19:29)
[2025-05-01] MEDS: ceFAZolin 2 GM in DEXTROSE 5% IN WATER 50 ML IVPB ONE (19:29)
[2025-05-01] MEDS: HEPARIN SODIUM,PORCINE (1 ML) 5,000 UNIT in SODIUM CHLORIDE 0.9% 500 ML 500 ML IV ONE (19:30)
[2025-05-01] MEDS: LACTATED RINGERS 1,000 ML IV ONE (19:30)
[2025-05-01] MEDS: MAGNESIUM SULFATE 16.24 MEQ in EMPTY SYRINGE 1 SYR IV ONE (19:30)
[2025-05-01] MEDS: INSULIN REGULAR 100 UNIT in SODIUM CHLORIDE 0.9% 100 ML IV ONE (19:30)
[2025-05-01] MEDS: HEPARIN SODIUM 1,000 UN/ML (10ML VL) IV ONE (19:30)
[2025-05-01] MEDS: PHENYLEPHRINE 10 MG/ML VIAL IV ONE (19:31)
[2025-05-01] MEDS: NITROGLYCERIN-D5W PMX 50 MG in DEXTROSE/WATER 1 250ML.BAG IV ONE (19:31)
[2025-05-01] MEDS: NOREPINEPHRINE 4 MG in SODIUM CHLORIDE 0.9% 250 ML IV ONE (19:31)
[2025-05-01] MEDS: PAPAVERINE 360 MG in SODIUM CHLORIDE 0.9% 90 ML IV ONE (19:31)
[2025-05-01] MEDS: NITROGLYCERIN-D5W PMX 25 MG/250 ML BTL IV ONE (19:31)
[2025-05-01] MEDS: MANNITOL 25% 12.5 GM/50 ML VIAL IV ONE (19:31)
[2025-05-01] MEDS: NITROGLYCERIN SL TABS 0.4 MG TAB SUBLINGUAL ONE (19:31)
[2025-05-01] MEDS: propofoL 1,000 MG/100 ML VIAL IV ONE (19:32)
[2025-05-01] MEDS: TRANEXAMIC ACID 2,000 MG in SODIUM CHLORIDE 0.9% 80 ML IV ONE (19:32)
[2025-05-01] MEDS: SODIUM CHLORIDE 0.9% 1,000 ML IV ONE (19:32)
[2025-05-01] MEDS: SODIUM BICARB 8.4% 50 ML SYR (1 MEQ/ML) IV ONE (19:32)
[2025-05-01] MEDS: PROTAMINE SULFATE 250 MG in EMPTY BAG 1 BAG IV ONE (19:32)
[2025-05-01] MEDS: PHENYLEPHRINE 40 MG in SODIUM CHLORIDE 0.9% 250 ML IV ONE (19:32)
[2025-05-01] MEDS: PROTAMINE SULFATE 10 MG/ML 25 ML VIAL IV ONE (19:32)
[2025-05-01] MEDS: DILTIAZEM 5 MG/ML 5 ML VIAL IVP STA (19:33)
[2025-05-01] MEDS: MUPIROCIN 2% OINT 22 GM TUBE NASAL ONE (19:33)
[2025-05-01] MEDS: LACTATED RINGERS 1,000 ML IV SCH (19:33)
[2025-05-01 19:54] LABS: Glucose,Whole Blood 120 mg/dL (70-110)
[2025-05-01] MEDS: HYDROcodone/APAP 7.5-325MG 1 EACH TAB PO PRN (20:29)
[2025-05-02 02:15] LABS: Glucose,Whole Blood 99 mg/dL (70-110)
[2025-05-02 06:23] LABS: Glucose,Whole Blood 82 mg/dL (70-110)
--- NOTE | 2025-05-02 07:01 | P.PN ---
Subjective Progress Note Date: 05/02/25 Principal diagnosis: HPI: This gentleman is status post aortocoronary bypass surgery. He is doing well all his wires and tubes are out he is maintaining sinus rhythm he feels much better there is less incisional pain. He has been ambulating without any issues.. PHYSICIAL EXAM: Vitals are stable no JVD S1-S2 heard normally no significant murmurs lungs reveal improved air entry abdomen is soft lower extremities reveal diminished pulses, Central nervous system grossly within normal limits.. IMPRESSION: 1. Status post aortocoronary bypass surgery progressing well. 2. Type 2 diabetes mellitus. 3. CAD with a prior PCI. 4.. 5.. RECOMMENDATIONS: Labs are pending from today. Creatinine was slightly high yesterday. Labs are still not back he is in sinus rhythm is doing well we will continue current medications incentive spirometry increased oral fluids and he can probably be moved to telemetry or soon to be discharged when okayed by cardiac surgery. No new suggestions. Objective - Vital Signs Vital signs: Vital Signs Temp 98.5 F 05/02/25 04:00 Pulse 86 05/02/25 06:00 Resp 23 05/02/25 06:00 BP 123/71 05/02/25 06:00 Pulse Ox 92 L 05/02/25 06:00 FiO2 45 04/28/25 16:20 Intake & Output 05/01/25 05/01/25 05/02/25 06:59 18:59 06:59 Intake Total 318.40 547 Output Total 485 550 550 Balance -166.60 -3 -550 Weight 78 kg 77.61 kg Intake: IV 286 147 Pressure Bags 66 27 Sodium Chloride 0.9% 1, 220 120 000 ml @ 20 mls/hr IV . Q24H [facility] Rx#:[id number] Intake, IV Titration 32.40 Amount Insulin Regular 100 unit 32.40 In Sodium Chloride 0.9% 100 ml @ Titrate IV .Q0M P[facility]O Rx#:[id number] Oral 400 Output: Chest Tube Drainage 60 0 L pleural 60 0 Urine 425 550 550 Other: Voiding Method Indwelling Catheter Indwelling Catheter Urinal # Voids 1 # Bowel Movements 1 ABP, PAP, CO, CI - Last Documented Arterial Blood Pressure 92/34 Pulmonary Artery Pressure 32/12 Cardiac Output 5.2 Cardiac Index 3.6 - Labs CBC & Chem 7: 05/01/25 04:30 05/01/25 04:30 Labs: Abnormal Lab Results - Last 24 Hours (Table) 05/01/25 05/01/25 05/01/25 Range/Units 06:58 07:30 09:58 ABG pCO2 32 L (35-45) mmHg ABG pO2 68 L (83-108) mmHg ABG HCO3 20 L (21-25) mmol/L Hemoglobin 7.7 L (13.0-17.5) gm/dL POC Glucose (mg/dL) 115 H 259 H (70-110) mg/dL 05/01/25 05/01/25 Range/Units 11:47 19:52 ABG pCO2 (35-45) mmHg ABG pO2 (83-108) mmHg ABG HCO3 (21-25) mmol/L Hemoglobin (13.0-17.5) gm/dL POC Glucose (mg/dL) 209 H 120 H (70-110) mg/dL
[2025-05-02 07:33] LABS: HCT 22.9 % (39.6-50.0); HGB 7.4 g/dL (13.0-17.0); MCH 28.9 pg (27.0-32.0); MCHC 32.3 g/dL (32.0-37.0); MCV 89.5 fL (80.0-97.0); Platelet Count 222 10*3/uL (140-440); RBC 2.56 10*6/uL (4.40-5.60); RDW 19.1 % (11.5-14.5); WBC 8.76 10*3/uL (4.50-10.00)
--- NOTE | 2025-05-02 07:46 | P.PN ---
Subjective Progress Note Date: 05/02/25 Principal diagnosis: Triple-vessel coronary artery disease, status post remote inferior wall myocardial infarction with previous PCI to the right and the circumflex system, moderate left ventricular dysfunction, fixed defect on the inferior wall on stress test. Previous medical history of diabetes mellitus, hypertension, hyperlipidemia, paroxysmal atrial fibrillation, recently diagnosed hypothyroidism, anemia, right knee severe arthritis, sepsis bacteremia in September of 2024, EtOH abuse with cessation in September 2024, rhabdomyolysis/SHERI/septic shock secondary to immobility in September 2024, GERD, and previous tobacco dependence. POD #4 triple-vessel coronary artery bypass grafting using the in situ left intramammary artery to the left anterior descending artery, left radial artery from the aorta to the obtuse marginal artery, reverse saphenous vein graft from the aorta to the very distal aspect of the posterior descending artery, bilateral pulmonary vein isolation using radiofrequency bipolar clamp from AtriCure, exclusion of the left atrial appendage using a 35mm, AtriClip, endoscopic harvesting of the left radial artery, endoscopic harvesting of the right greater saphenous vein from the lower leg, intraoperative graft flow measurements using the Pathagilityim system, intraoperative transesophageal echocardiogram and epiaortic scanning. Postoperative acute blood loss anemia, expected given the patient's history of anemia, and hemodilution and cardiopulmonary bypass. The patient was seen and examined this morning sitting up in recliner in the intensive care unit in no acute distress eating breakfast. States pain is controlled on current medication regimen especially after removal of chest tubes yesterday, denies shortness of breath. Remains in sinus rhythm and hemodynamically stable, currently on room air with oxygen saturation in the high 90s, able to achieve 1500 mL on incentive spirometry. The patient has been ambulatory with assistance. Chest x-ray reviewed, labs pending. No other new concerns. Objective - Vital Signs Vital signs: Vital Signs Temp 98.5 F 05/02/25 04:00 Pulse 87 05/02/25 07:00 Resp 15 05/02/25 07:00 BP 121/67 05/02/25 07:00 Pulse Ox 95 05/02/25 07:00 FiO2 45 04/28/25 16:20 Intake & Output 05/01/25 05/02/25 05/02/25 18:59 06:59 18:59 Intake Total 547 500 Output Total 550 550 0 Balance -3 -550 500 Weight 77.61 kg Intake: IV 147 Pressure Bags 27 Sodium Chloride 0.9% 1, 120 000 ml @ 20 mls/hr IV . Q24H [facility] Rx#:[id number] Oral 400 500 Output: Chest Tube Drainage 0 L pleural 0 Urine 550 550 0 Other: Voiding Method Indwelling Catheter Urinal Urinal # Voids 1 # Bowel Movements 1 ABP, PAP, CO, CI - Last Documented Arterial Blood Pressure 92/34 Pulmonary Artery Pressure 32/12 Cardiac Output 5.2 Cardiac Index 3.6 - Exam CONSTITUTIONAL: Appears comfortable, cooperative, no acute distress RESPIRATORY: Lungs sounds diminished in the bases bilaterally, right greater than left. Respirations even, nonlabored. Currently on room air with oxygen saturation 98%. Able to achieve 1500 mL on incentive spirometry. Strong cough. CARDIOVASCULAR: S1, S2 present. Regular rate and rhythm, sinus rhythm on telemetry. Sternum stable. Palpable peripheral pulses bilaterally. No edema present. No calf pain or tenderness noted. Heart hugger in place with patient demonstrating appropriate use. Antiembolism stockings, SCDs present. GASTROINTESTINAL: Abdomen soft, nontender, nondistended. Active bowel sounds present 4 quadrants. Tolerating diet. Positive bowel movement 05/02 GENITOURINARY: Continues to void, 350 mL overnight INTEGUMENTARY: Skin is warm and dry with evidence of good perfusion. Anterior chest incision well approximated and covered with dry intact dressing. Left radial artery harvest site as well as right lower extremity EVH site well approximated without redness or drainage. NEUROLOGIC: Cranial nerves II through XII intact MUSKULOSKELETAL: Able to move all extremities, strength equal bilaterally, gait normal PSYCHIATRIC: Alert and oriented to person place and time, appropriate affect, intact judgment and insight INVASIVE LINES AND TUBES: Atrial epicardial pacemaker wires present, grounded - Allied health notes Allied health notes reviewed: nursing - Labs CBC & Chem 7: 05/02/25 07:21 05/02/25 07:21 Labs: Abnormal Lab Results - Last 24 Hours (Table) 05/01/25 05/01/25 05/01/25 Range/Units 07:30 09:58 11:47 ABG pCO2 32 L (35-45) mmHg ABG pO2 68 L (83-108) mmHg ABG HCO3 20 L (21-25) mmol/L Hemoglobin 7.7 L (13.0-17.5) gm/dL POC Glucose (mg/dL) 259 H 209 H (70-110) mg/dL 05/01/25 Range/Units 19:52 ABG pCO2 (35-45) mmHg ABG pO2 (83-108) mmHg ABG HCO3 (21-25) mmol/L Hemoglobin (13.0-17.5) gm/dL POC Glucose (mg/dL) 120 H (70-110) mg/dL - Imaging and Cardiology Chest x-ray: image reviewed Assessment and Plan Assessment: Triple-vessel coronary artery disease, status post four-vessel CABG Postoperative acute blood loss anemia, expected given the patient's history of anemia, and hemodilution and cardiopulmonary bypass Paroxysmal atrial fibrillation, status post bilateral pulmonary vein isolation and exclusion of the left atrial appendage History of coronary artery disease with remote inferior wall myocardial infarction, previous PCI to the right and the circumflex system Moderate left ventricular dysfunction, fixed defect on the inferior wall on stress test Diabetes mellitus, preoperative hemoglobin A1c 7.7% Hypertension Hyperlipidemia Recently diagnosed hypothyroidism Anemia Sepsis bacteremia in September of 2024 EtOH abuse with cessation in September 2024 Rhabdomyolysis/SHERI/septic shock in September 2024 GERD Previous tobacco dependence. Plan: Continue to maximize medical therapy with aspirin, statin, Plavix, and beta- katja, will increase beta-katja therapy when able Will start calcium channel katja when blood pressure able to tolerate for radial artery spasm prophylaxis. Encourage incentive spirometry use 10 times every hour while awake, bronchodilator per pulmonary. Increase activity as tolerated, PT/OT/cardiac rehab following. Will monitor daily labs and chest x-rays, electrolyte replacement per protocol. GI/DVT prophylaxis. Pain control per current medication regimen. Insulin management per internal medicine Will discontinue epicardial pacemaker wire today, patient to remain on bedrest for 1 hour post wire removal Continue to monitor strict accurate intake and output. May bladder scan every 6 hours and as needed postvoid residuals. Transfer orders placed for 3 S. cardiac stepdown unit, may transfer when bed available Discharge planning in progress, anticipate discharge to home with home care in the next 24 to 48 hours More recommendations to follow based on patient's clinical course.
[2025-05-02 07:56] LABS: ALT <6 U/L (4-49); AST 25 U/L (17-59); African American GFR (CKD) 54 (>60 ml/min/1.73 sqM); Albumin 3.5 g/dL (3.5-5.0); Alkaline Phosphatase 103 U/L (38-126); Anion Gap 10 mmol/L; Blood Urea Nitrogen 40 mg/dL (9-20); Calcium 8.8 mg/dL (8.4-10.2); Carbon Dioxide 21 mmol/L (22-30); Chloride 103 mmol/L (98-107); Glucose 125 mg/dL (74-99); Non-African American GFR(CKD) 46 (>60 ml/min/1.73 sqM); Potassium 4.2 mmol/L (3.5-5.1); Sodium 134 mmol/L (137-145); Total Bilirubin 0.7 mg/dL (0.2-1.3)
[2025-05-02 11:14] LABS: Glucose,Whole Blood 192 mg/dL (70-110)
--- NOTE | 2025-05-02 12:34 | XR ---
EXAMINATION TYPE: XR chest 2V DATE OF EXAM: 05/02/2025 5:53 AM COMPARISON: 05/01/2025 CLINICAL INDICATION: Male, 65 years old with history of Postop CABG, TECHNIQUE: XR chest 2V view(s) obtained. FINDINGS: The heart size is normal. The pulmonary vasculature is normal. Moderate right pleural effusion is present. Atelectasis or pneumonias at the right base, improving from comparison IMPRESSION: 1. Moderate right pleural effusion. 2. Improving left lower lobe infiltrate. Correlate for atelectasis or pneumonia. [facility], , 05/02/2025 12:31 PM
--- NOTE | 2025-05-02 13:10 | P.PN ---
Subjective Progress Note Date: 05/02/25 Principal diagnosis: POD # 4 triple-vessel coronary artery bypass grafting using the in situ left intramammary artery to the left anterior descending artery, left radial artery from the aorta to the obtuse marginal artery, reverse saphenous vein graft from the aorta to the very distal aspect of the posterior descending artery, bilateral pulmonary vein isolation using radiofrequency bipolar clamp from AtriCure, exclusion of the left atrial appendage using a 35mm, AtriClip, en doscopic harvesting of the left radial artery, endoscopic harvesting of the right greater saphenous vein from the lower leg, intraoperative graft flow measurements using the [employer] system, intraoperative transesophageal echocardiogram and epiaortic scanning. This is a 65-year-old male patient with a known history of hypertension, hyperlipidemia, diabetes mellitus, paroxysmal atrial fibrillation, chronic anemia, previous chronic tobacco dependence, previous alcohol abuse, marijuana use, coronary artery disease with previous stent placement. He was recently found to have calcified coronary artery disease with severe disease in the mid LAD, proximal and mid left circumflex, mid to distal RCA and was recommended coronary revascularization. He was brought in today electively for the surgery. He did undergo coronary artery bypass grafting utilizing the GEIGER to the LAD, left radial artery to the obtuse marginal artery, reverse saphenous vein graft to the distal aspect of the posterior descending artery. Clipping of the left atrial appendage. He is seen now in the intensive care unit intubated and on the mechanical ventilator. Current settings are assist-control mode at a rate of 12, tidal volume 500, FiO2 100% and a PEEP of 5. Arterial blood gases revealed a PO2 of 369, PCO2 of 36 and a pH of 7.43. FiO2 titrated down to 45% currently. White count 7.2. Hemoglobin 8.2. Platelets 113. Sodium 141. Potassium 4.2. Bicarb 23. BUN 24. Creatinine 1.08. Glucose 104. He is currently on a nitroglycerin drip at 5 mcg/min. Sedated on propofol at 30 mcg/kg/min. Normal saline at 50 mL/h. Cardiac output 4.1. Cardiac index 2.2. PA pressures 33/18. CVP 14. Chest x-ray reveals right lower lobe atelectatic changes. Very tiny left apical pneumothorax. Mediastinal and left sided chest tubes remain in place. Endotracheal tube 4 cm above the marvel. Nasogastric tube in place. Right [place]-Reva catheter tip in the main pulmonary artery region. Pacer wires in place. He has been initiated on DuoNeb inhalations. Heparin for DVT prophylaxis. Patient was seen today on 04/29/2025, patient was extubated uneventfully yesterday, he is now on 2 L nasal cannula, patient is sitting in the bedside chair, fairly comfortable, he is complaining of some pain patient does have chronic pain syndrome and is mostly on narcotics on outpatient basis for chronic low back pain. Patient is now postoperative day #1, he is on IV fluid at 50 cc/h he is also on insulin, cardiac output is 5.5 cardiac index is 2.9, achieving 1000 cc on his incentive spirometry. Chest x-ray showed mostly right basilar atelectasis. Otherwise fairly unremarkable. Labs today were reviewed, WBC 7 hemoglobin 7.7 platelets 138, basic metabolic profile is normal creatinine is 1.16. Patient was seen today on 04/30/2025, patient is doing well, he was extubated uneventfully post CABG, today he is on 2 L nasal cannula, IV fluid KVO, patient is relatively hypotensive on midodrine, received 3 infusions of albumin he also received a heads of packed RBCs, remains on insulin at 2 units/h. Blood pressu re was low but seems to be better during my evaluation. Not requiring any pressors. Chest x-ray was reviewed, he has minimal basilar atelectasis no evidence of pulmonary edema. There is cardiomegaly. Patient was seen today on 05/01/2025, doing well, patient is on room air, had an ABG earlier showing a pO2 of 68 pCO2 52 pH of 7.42 patient has a relatively uneventful postoperative course, chest x-ray today is reassuring, patient is not in any distress, pain seems to be fairly well-controlled, patient to have his chest tube removed today. CBC showed WBC count of 9.3 hemoglobin 7.3, basic metabolic profile is normal except for bicarb being low at 16-21, BUN is 43 creatinine 1.62 definite rise in his creatinine compared to baseline of 1.08. This is most likely related to episodes of hypotension. Seen today on 05/02/2025, patient is doing great, on room air, sitting at the bedside chair, not in any form of distress, patient is ambulating with assistance. He does not have a active lifestyle to begin with. Labs were reviewed hemoglobin is 7.4 bicarb is 21 BUN 40 creat 1.57, chest x-ray showed right lower lobe atelectasis, with small right-sided pleural effusion and elevated right hemidiaphragm. Objective - Vital Signs Vital signs: Vital Signs Temp 97.8 F 05/02/25 12:00 Pulse 83 05/02/25 12:00 Resp 16 05/02/25 12:00 BP 90/58 05/02/25 12:00 Pulse Ox 96 05/02/25 12:00 FiO2 45 04/28/25 16:20 Intake & Output 05/01/25 05/02/25 05/02/25 18:59 06:59 18:59 Intake Total 547 500 Output Total 550 550 400 Balance -3 -550 100 Weight 77.61 kg Intake: IV 147 Pressure Bags 27 Sodium Chloride 0.9% 1, 120 000 ml @ 20 mls/hr IV . Q24H [facility] Rx#:[id number] Oral 400 500 Output: Chest Tube Drainage 0 L pleural 0 Urine 550 550 400 Other: Voiding Method Indwelling Catheter Urinal Urinal # Voids 1 # Bowel Movements 1 ABP, PAP, CO, CI - Last Documented Arterial Blood Pressure 92/34 Pulmonary Artery Pressure 32/12 Cardiac Output 5.2 Cardiac Index 3.6 - Exam GENERAL EXAM: Revealed a 65-year-old white male pleasant in no distress sitting at the bedside chair, patient is on room air HEAD: Normocephalic. Atraumatic EYES: PERRLA, EOMI, nonicteric NOSE: Clear with pink turbinates. THROAT: Moist mucous membranes, no erythema, no exudates CHEST: Sternal dressing dry and intact. LUNGS: Clear bilaterally no rhonchi no wheezes CVS: S1 and S2 normal with no audible murmur, regular rhythm. Positive pericardial rub ABDOMEN: No hepatosplenomegaly, hypoactive bowel sounds, no guarding or rigidity. SKIN: No rashes CENTRAL NERVOUS SYSTEM: Alert and oriented x 3 no gross focal deficit. EXTREMITIES: No clubbing edema or cyanosis - Labs CBC & Chem 7: 05/02/25 07:21 05/02/25 07:21 Labs: Abnormal Lab Results - Last 24 Hours (Table) 05/01/25 05/02/25 05/02/25 Range/Units 19:52 07:21 07:21 RBC 2.56 L (4.40-5.60) 10*6/uL Hgb 7.4 L (13.0-17.0) g/dL Hct 22.9 L (39.6-50.0) % MPV 9.0 L (9.5-12.2) fL Sodium 134 L (137-145) mmol/L Carbon Dioxide 21 L (22-30) mmol/L BUN 40 H (9-20) mg/dL Creatinine 1.57 H (0.66-1.25) mg/dL Glucose 125 H (74-99) mg/dL POC Glucose (mg/dL) 120 H (70-110) mg/dL Total Protein 6.0 L (6.3-8.2) g/dL 05/02/25 Range/Units 11:12 RBC (4.40-5.60) 10*6/uL Hgb (13.0-17.0) g/dL Hct (39.6-50.0) % MPV (9.5-12.2) fL Sodium (137-145) mmol/L Carbon Dioxide (22-30) mmol/L BUN (9-20) mg/dL Creatinine (0.66-1.25) mg/dL Glucose (74-99) mg/dL POC Glucose (mg/dL) 192 H (70-110) mg/dL Total Protein (6.3-8.2) g/dL Assessment and Plan Assessment: Impression: Triple-vessel coronary artery disease status post CABG, three-vessel bypass grafting surgery, postoperative day #3 Paroxysmal atrial fibrillation, status post exclusion of the left atrial appendage and bilateral pulmonary vein isolation with radiofrequency bipolar clamp from AtriCure. Benign essential hypertension Dyslipidemia Type 2 diabetes with baseline hemoglobin A1c of 7.7 Hypothyroidism History of sepsis with bacteremia in 2023 along with acute kidney injury and septic shock with rhabdomyolysis in September 21, 2024 Remote history of nicotine dependence/ex-smoker GERD without esophagitis, Degenerative joint disease Recommendation: Continue medical therapy including aspirin statin Plavix and beta-blockers Continue incentive spirometry Continue GI and DVT prophylaxis Ambulate with assistance Possible discharge planning over the next 24 hours Will continue to follow Time with Patient: Less than 30
[2025-05-02 16:56] LABS: Glucose,Whole Blood 311 mg/dL (70-110)
--- NOTE | 2025-05-02 18:23 | P.PN ---
Subjective Progress Note Date: 05/02/25 This is a pleasant 65-year-old male. He is currently evaluated in the intensive care unit pending a bed in the 3 S. selective unit. He is postoperative day #4 three-vessel coronary artery bypass grafting. His chest tubes are removed. He has been transition off of the insulin drip and currently on a combination of sliding scale Accu-Cheks and Lantus daily. His blood glucose has been fairly well-controlled. His labs today reveal a white blood cell count 8.76, hemoglobin 7.4, sodium 134, potassium 4.2, BUN of 40 creatinine of 1.57. He had a chest x-ray today which reveals moderate right pleural effusion and improving left lower lobe infiltrate correlate for atelectasis or pneumonia. He is curr ently afebrile and on room air. Review of Systems Constitutional: Denied any fatigue denied any fever. Cardio vascular: denied any chest pain, palpitations Gastrointestinal: denied any nausea, vomiting, diarrhea Pulmonary: Denied any shortness of breath cough Neurologic denied any new focal deficits All inpatient medications were reviewed and appropriate changes in these medications as dictated in the interval history and assessment and plan. PHYSICAL EXAMINATION: GENERAL: The patient is alert and oriented x3, not in any acute distress. Well developed, well nourished. HEENT: Pupils are round and equally reacting to light. EOMI. No scleral icterus. No conjunctival pallor. Normocephalic, atraumatic. No pharyngeal erythema. No thyromegaly. CARDIOVASCULAR: S1 and S2 present. No murmurs, rubs, or gallops. PULMONARY: Chest is clear to auscultation, no wheezing or crackles. ABDOMEN: Soft, nontender, nondistended, normoactive bowel sounds. No palpable organomegaly. MUSCULOSKELETAL: No joint swelling or deformity. EXTREMITIES: No cyanosis, clubbing, or pedal edema. NEUROLOGICAL: Gross neurological examination did not reveal any focal deficits. SKIN: No rashes. Assessment Coronary artery disease Postoperative day #4 three-vessel coronary artery bypass grafting Diabetes mellitus type 2 with hyperglycemia History of atrial fibrillation Hypertension Hyperlipidemia History of degenerative joint disease History of EtOH Gastroesophageal reflux disease History of peripheral diabetic neuropathy History of nicotine use Postoperative anemia Hyponatremia Mild acute kidney dysfunction likely prerenal GI prophylaxis DVT prophylaxis as per primary Full code Plan Patient to be moved out of the intensive care unit today Continue to encourage incentive spirometry 10 times an hour while awake He has been transition off the insulin drip and is currently on sliding scale insulin with Accu-Cheks ACHS with Lantus daily further recommendations to be made pending blood glucose Continue oral iron daily Continue duonebs scheduled and PRN Continue bowel regimen Daily chest xray per CT surgery Monitor renal function The impression and plan of care has been dictated by Sharlene Pendleton, Nurse Practitioner as directed. Dr. Randall MD I have performed a history and physical examination and medical decision making of this patient, discussed the same with the dictator, and agree with the dictators assessment and plan as written, documented as a scribe. Based on total visit time, I have performed more than 50% of this visit. Objective - Vital Signs Vital signs: Vital Signs Temp 98.6 F 05/02/25 14:19 Pulse 83 05/02/25 15:59 Resp 16 05/02/25 14:19 BP 92/58 05/02/25 14:19 Pulse Ox 96 05/02/25 14:19 FiO2 45 04/28/25 16:20 Intake & Output 05/01/25 05/02/25 05/02/25 18:59 06:59 18:59 Intake Total 547 500 Output Total 550 550 600 Balance -3 -550 -100 Weight 77.61 kg Intake: IV 147 Pressure Bags 27 Sodium Chloride 0.9% 1, 120 000 ml @ 20 mls/hr IV . Q24H [facility] Rx#:[id number] Oral 400 500 Output: Chest Tube Drainage 0 L pleural 0 Urine 550 550 600 Other: Voiding Method Indwelling Catheter Urinal Urinal # Voids 1 # Bowel Movements 1 ABP, PAP, CO, CI - Last Documented Arterial Blood Pressure 92/34 Pulmonary Artery Pressure 32/12 Cardiac Output 5.2 Cardiac Index 3.6 - Labs CBC & Chem 7: 05/02/25 07:21 05/02/25 07:21 Labs: Abnormal Lab Results - Last 24 Hours (Table) 05/01/25 05/02/25 05/02/25 Range/Units 19:52 07:21 07:21 RBC 2.56 L (4.40-5.60) 10*6/uL Hgb 7.4 L (13.0-17.0) g/dL Hct 22.9 L (39.6-50.0) % MPV 9.0 L (9.5-12.2) fL Sodium 134 L (137-145) mmol/L Carbon Dioxide 21 L (22-30) mmol/L BUN 40 H (9-20) mg/dL Creatinine 1.57 H (0.66-1.25) mg/dL Glucose 125 H (74-99) mg/dL POC Glucose (mg/dL) 120 H (70-110) mg/dL Total Protein 6.0 L (6.3-8.2) g/dL 05/02/25 05/02/25 Range/Units 11:12 16:54 RBC (4.40-5.60) 10*6/uL Hgb (13.0-17.0) g/dL Hct (39.6-50.0) % MPV (9.5-12.2) fL Sodium (137-145) mmol/L Carbon Dioxide (22-30) mmol/L BUN (9-20) mg/dL Creatinine (0.66-1.25) mg/dL Glucose (74-99) mg/dL POC Glucose (mg/dL) 192 H 311 H (70-110) mg/dL Total Protein (6.3-8.2) g/dL Assessment and Plan Time with Patient: Less than 30
[2025-05-02 20:05] LABS: Glucose,Whole Blood 367 mg/dL (70-110)
[2025-05-03 06:07] LABS: Glucose,Whole Blood 65 mg/dL (70-110)
[2025-05-03 06:31] LABS: Glucose,Whole Blood 96 mg/dL (70-110)
--- NOTE | 2025-05-03 07:30 | XR ---
EXAMINATION TYPE: XR chest 2V DATE OF EXAM: 05/03/2025 6:47 AM COMPARISON: Chest radiographs from 05/02/2025. CLINICAL INDICATION: Male, 65 years old with history of post open heart; [facility] TECHNIQUE: XR chest 2V Frontal and lateral views of the chest. FINDINGS: Lungs/Pleura: There is no evidence of pleural effusion, focal consolidation, or pneumothorax. Pulmonary vascularity: Unremarkable. Heart/mediastinum: Cardiomediastinal silhouette is enlarged. Left atrial appendage occlusion device i s present. Musculoskeletal: No acute osseous pathology. Midline sternotomy wires are noted. IMPRESSION: Moderate right pleural effusion. [facility], , 05/03/2025 7:28 AM
--- NOTE | 2025-05-03 07:45 | P.PN ---
Subjective Progress Note Date: 05/03/25 Principal diagnosis: Triple-vessel coronary artery disease, status post remote inferior wall myocardial infarction with previous PCI to the right and the circumflex system, moderate left ventricular dysfunction, fixed defect on the inferior wall on stress test. Previous medical history of diabetes mellitus, hypertension, hyperlipidemia, paroxysmal atrial fibrillation, recently diagnosed hypothyroidism, anemia, right knee severe arthritis, sepsis bacteremia in September of 2024, EtOH abuse with cessation in September 2024, rhabdomyolysis/SHERI/septic shock secondary to immobility in September 2024, GERD, and previous tobacco dependence. POD #5 triple-vessel coronary artery bypass grafting using the in situ left intramammary artery to the left anterior descending artery, left radial artery from the aorta to the obtuse marginal artery, reverse saphenous vein graft from the aorta to the very distal aspect of the posterior descending artery, bilateral pulmonary vein isolation using radiofrequency bipolar clamp from AtriCure, exclusion of the left atrial appendage using a 35mm, AtriClip, endoscopic harvesting of the left radial artery, endoscopic harvesting of the right greater saphenous vein from the lower leg, intraoperative graft flow measurements using the [employer] system, intraoperative transesophageal echocardiogram and epiaortic scanning. Postoperative acute blood loss anemia, expected given the patient's history of anemia, and hemodilution and cardiopulmonary bypass. The patient was seen and examined this morning sitting up in recliner on the cardiac stepdown unit in no acute distress. States pain is controlled on current medication regimen, denies shortness of breath. Remains in sinus rhythm and hemodynamically stable, currently on room air with oxygen saturation in the low 90s, able to achieve 2000 mL on incentive spirometry. The patient has been ambulatory with assistance, does need a walker which he was also using at home. Patient did have a spike in his blood sugars last night well over 300, he admits to eating chocolate yesterday afternoon. He was given high doses of insulin and his blood sugar was down to 65 this morning with repeat blood sugar at 96 after treatment. Counseled on better nutrition, less sugar. Chest x-ray reviewed, labs pending. No other new concerns. Objective - Vital Signs Vital signs: Vital Signs Temp 98.6 F 05/02/25 20:00 Pulse 86 05/03/25 03:45 Resp 16 05/03/25 03:45 BP 121/68 05/03/25 03:45 Pulse Ox 92 L 05/03/25 03:45 FiO2 45 04/28/25 16:20 Intake & Output 05/02/25 05/03/25 05/03/25 18:59 06:59 18:59 Intake Total 618 Output Total 600 300 Balance 18 -300 Weight 77.3 kg Intake: Oral 618 Output: Urine 600 300 Other: Voiding Method Urinal Urinal # Voids 1 # Bowel Movements 1 ABP, PAP, CO, CI - Last Documented Arterial Blood Pressure 92/34 Pulmonary Artery Pressure 32/12 Cardiac Output 5.2 Cardiac Index 3.6 - Exam CONSTITUTIONAL: Appears comfortable, cooperative, no acute distress RESPIRATORY: Lungs sounds diminished in the bases bilaterally. Respirations even, nonlabored. Currently on room air with oxygen saturation 92%. Able to achieve 2000 mL on incentive spirometry. Strong cough. CARDIOVASCULAR: S1, S2 present. Regular rate and rhythm, sinus rhythm on t elemetry. Sternum stable. Palpable peripheral pulses bilaterally. No edema present. No calf pain or tenderness noted. Heart hugger in place with patient demonstrating appropriate use. Antiembolism stockings, SCDs present. GASTROINTESTINAL: Abdomen soft, nontender, nondistended. Active bowel sounds present 4 quadrants. Tolerating diet. Positive bowel movement 05/02x3 GENITOURINARY: Continues to void, 600 mL plus undocumented amounts INTEGUMENTARY: Skin is warm and dry with evidence of good perfusion. Anterior chest incision well approximated. Left radial artery harvest site as well as right lower extremity EVH site well approximated without redness or drainage. NEUROLOGIC: Cranial nerves II through XII intact MUSKULOSKELETAL: Able to move all extremities, strength equal bilaterally, gait normal PSYCHIATRIC: Alert and oriented to person place and time, appropriate affect, intact judgment and insight - Allied health notes Allied health notes reviewed: nursing - Labs CBC & Chem 7: 05/03/25 07:38 05/03/25 07:38 Labs: Abnormal Lab Results - Last 24 Hours (Table) 05/02/25 05/02/25 05/02/25 Range/Units 07:21 11:12 16:54 Sodium 134 L (137-145) mmol/L Carbon Dioxide 21 L (22-30) mmol/L BUN 40 H (9-20) mg/dL Creatinine 1.57 H (0.66-1.25) mg/dL Glucose 125 H (74-99) mg/dL POC Glucose (mg/dL) 192 H 311 H (70-110) mg/dL Total Protein 6.0 L (6.3-8.2) g/dL 05/02/25 05/03/25 Range/Units 20:04 06:05 Sodium (137-145) mmol/L Carbon Dioxide (22-30) mmol/L BUN (9-20) mg/dL Creatinine (0.66-1.25) mg/dL Glucose (74-99) mg/dL POC Glucose (mg/dL) 367 H 65 L (70-110) mg/dL Total Protein (6.3-8.2) g/dL - Imaging and Cardiology Chest x-ray: report reviewed, image reviewed Assessment and Plan Assessment: Triple-vessel coronary artery disease, status post four-vessel CABG Postoperative acute blood loss anemia, expected given the patient's history of anemia, and hemodilution and cardiopulmonary bypass Paroxysmal atrial fibrillation, status post bilateral pulmonary vein isolation and exclusion of the left atrial appendage History of coronary artery disease with remote inferior wall myocardial infarction, previous PCI to the right and the circumflex system Moderate left ventricular dysfunction, fixed defect on the inferior wall on stress test Diabetes mellitus, preoperative hemoglobin A1c 7.7% Hypertension Hyperlipidemia Recently diagnosed hypothyroidism Anemia Sepsis bacteremia in September of 2024 EtOH abuse with cessation in September 2024 Rhabdomyolysis/SHERI/septic shock in September 2024 GERD Previous tobacco dependence. Plan: Continue to maximize medical therapy with aspirin, statin, Plavix, and beta- katja, will increase beta-katja therapy when able Will start low dose calcium channel katja with hold parameters for radial art sim spasm prophylaxis. Encourage incentive spirometry use 10 times every hour while awake, bronchodi lator per pulmonary. Increase activity as tolerated, PT/OT/cardiac rehab following. Will monitor daily labs and chest x-rays, electrolyte replacement per protocol. GI/DVT prophylaxis. Pain control per current medication regimen. Insulin management per internal medicine Continue to monitor strict accurate intake and output. May bladder scan every 6 hours and as needed postvoid residuals. Discharge planning in progress, anticipate discharge to home with home care in the next 24 to 48 hours More recommendations to follow based on patient's clinical course.
[2025-05-03 08:31] LABS: HCT 23.3 % (39.6-50.0); HGB 7.7 g/dL (13.0-17.0); MCH 29.8 pg (27.0-32.0); MCV 90.3 fL (80.0-97.0); Mean Platelet Volume 9.2 fL (9.5-12.2); Platelet Count 279 10*3/uL (140-440); RBC 2.58 10*6/uL (4.40-5.60); WBC 8.83 10*3/uL (4.50-10.00)
[2025-05-03 08:42] LABS: African American GFR (CKD) 59 (>60 ml/min/1.73 sqM); Anion Gap 9 mmol/L; Blood Urea Nitrogen 35 mg/dL (9-20); Calcium 8.6 mg/dL (8.4-10.2); Carbon Dioxide 21 mmol/L (22-30); Chloride 104 mmol/L (98-107); Glucose 72 mg/dL (74-99); Non-African American GFR(CKD) 51 (>60 ml/min/1.73 sqM); Potassium 4.5 mmol/L (3.5-5.1); Sodium 134 mmol/L (137-145)
--- NOTE | 2025-05-03 10:55 | P.PN ---
Subjective HISTORY OF PRESENT ILLNESS: This is a 65-year-old male who is status post CABG. Patient examined this morning. He is sitting up in chair. Patient currently denies chest pain or pressure. He denies shortness of breath. Vital signs are stable. Telemetry reveals sinus mechanism. PHYSICAL EXAM: VITAL SIGNS: Reviewed. GENERAL: Well-developed in no acute distress. NECK: Supple. No JVD or thyromegaly LUNGS: Respirations even and unlabored. Lungs essentially clear to auscultation bilaterally. HEART: Regular rate and rhythm. S1 and S2 heard. EXTREMITIES: Normal range of motion. No clubbing or cyanosis. Peripheral pulses intact. No lower extremity edema ASSESSMENT: Coronary artery disease, status post four-vessel CABG Paroxysmal atrial fibrillation History of CAD with previous PCI Hypertension Hyperlipidemia Diabetes Hypothyroidism History of alcohol abuse with cessation in 09/2024 Former nicotine dependence PLAN: Continue postoperative management per CT surgery Increase activity as tolerated Encourage use of incentive spirometer Continue current cardiac medications Possible discharge home tomorrow Further recommendations pending patient course Patient to follow-up postdischarge with Dr. Saavedra Nurse practitioner note has been reviewed by physician. Signing provider agrees with the documented findings, assessment, and plan of care documented by BUSINESS INTELLIGENCE MANAGER as a scribe. Objective - Vital Signs Vital signs: Vital Signs Temp 98.1 F 05/03/25 08:00 Pulse 82 05/03/25 08:22 Resp 16 05/03/25 08:00 BP 129/66 05/03/25 08:00 Pulse Ox 95 05/03/25 08:09 FiO2 45 04/28/25 16:20 Intake & Output 05/02/25 05/03/25 05/03/25 18:59 06:59 18:59 Intake Total 618 Output Total 600 300 Balance 18 -300 Weight 77.3 kg Intake: Oral 618 Output: Urine 600 300 Other: Voiding Method Urinal Urinal # Voids 1 # Bowel Movements 1 ABP, PAP, CO, CI - Last Documented Arterial Blood Pressure 92/34 Pulmonary Artery Pressure 32/12 Cardiac Output 5.2 Cardiac Index 3.6 - Labs CBC & Chem 7: 05/03/25 07:38 05/03/25 07:38 Labs: Abnormal Lab Results - Last 24 Hours (Table) 05/02/25 05/02/25 05/02/25 Range/Units 11:12 16:54 20:04 RBC (4.40-5.60) 10*6/uL Hgb (13.0-17.0) g/dL Hct (39.6-50.0) % MPV (9.5-12.2) fL Sodium (137-145) mmol/L Carbon Dioxide (22-30) mmol/L BUN (9-20) mg/dL Creatinine (0.66-1.25) mg/dL Glucose (74-99) mg/dL POC Glucose (mg/dL) 192 H 311 H 367 H (70-110) mg/dL 05/03/25 05/03/25 05/03/25 Range/Units 06:05 07:38 07:38 RBC 2.58 L (4.40-5.60) 10*6/uL Hgb 7.7 L (13.0-17.0) g/dL Hct 23.3 L (39.6-50.0) % MPV 9.2 L (9.5-12.2) fL Sodium 134 L (137-145) mmol/L Carbon Dioxide 21 L (22-30) mmol/L BUN 35 H (9-20) mg/dL Creatinine 1.45 H (0.66-1.25) mg/dL Glucose 72 L (74-99) mg/dL POC Glucose (mg/dL) 65 L (70-110) mg/dL
--- NOTE | 2025-05-03 11:19 | US ---
EXAMINATION TYPE: US chest DATE OF EXAM: 05/03/2025 COMPARISON: NONE CLINICAL INDICATION: Male, 65 years old with history of Right pleural effusion; right pleural effusio n TECHNIQUE: Grayscale imaging of the chest. Targeted ultrasound of the posterior lower right hemithor ax FINDINGS: EXAM MEASUREMENTS: Right Pleural Effusion pocket size: 2.7 cm Right skin surface to fluid distance: 2.2 cm Right side marked for possible thoracentesis outside the dept. Left side NOT marked for possible thoracentesis outside the dept. Pulmonologists are able to review the images in the patient?s EMR. IMPRESSIONS: Small right pleural effusion. [facility], , 05/03/2025 11:17 AM
[2025-05-03 11:39] LABS: Glucose,Whole Blood 272 mg/dL (70-110)
[2025-05-03] MEDS: amLODIPine 2.5 MG TAB PO SCH (12:16)
--- NOTE | 2025-05-03 13:05 | P.PN ---
Subjective Progress Note Date: 05/03/25 Principal diagnosis: POD # 5 triple-vessel coronary artery bypass grafting using the in situ left intramammary artery to the left anterior descending artery, left radial artery from the aorta to the obtuse marginal artery, reverse saphenous vein graft from the aorta to the very distal aspect of the posterior descending artery, bilateral pulmonary vein isolation using radiofrequency bipolar clamp from AtriCure, exclusion of the left atrial appendage using a 35mm, AtriClip, en doscopic harvesting of the left radial artery, endoscopic harvesting of the right greater saphenous vein from the lower leg, intraoperative graft flow measurements using the [employer] system, intraoperative transesophageal echocardiogram and epiaortic scanning. This is a 65-year-old male patient with a known history of hypertension, hyperlipidemia, diabetes mellitus, paroxysmal atrial fibrillation, chronic anemia, previous chronic tobacco dependence, previous alcohol abuse, marijuana use, coronary artery disease with previous stent placement. He was recently found to have calcified coronary artery disease with severe disease in the mid LAD, proximal and mid left circumflex, mid to distal RCA and was recommended coronary revascularization. He was brought in today electively for the surgery. He did undergo coronary artery bypass grafting utilizing the GEIGER to the LAD, left radial artery to the obtuse marginal artery, reverse saphenous vein graft to the distal aspect of the posterior descending artery. Clipping of the left atrial appendage. He is seen now in the intensive care unit intubated and on the mechanical ventilator. Current settings are assist-control mode at a rate of 12, tidal volume 500, FiO2 100% and a PEEP of 5. Arterial blood gases revealed a PO2 of 369, PCO2 of 36 and a pH of 7.43. FiO2 titrated down to 45% currently. White count 7.2. Hemoglobin 8.2. Platelets 113. Sodium 141. Potassium 4.2. Bicarb 23. BUN 24. Creatinine 1.08. Glucose 104. He is currently on a nitroglycerin drip at 5 mcg/min. Sedated on propofol at 30 mcg/kg/min. Normal saline at 50 mL/h. Cardiac output 4.1. Cardiac index 2.2. PA pressures 33/18. CVP 14. Chest x-ray reveals right lower lobe atelectatic changes. Very tiny left apical pneumothorax. Mediastinal and left sided chest tubes remain in place. Endotracheal tube 4 cm above the marvel. Nasogastric tube in place. Right Nyack-Erva catheter tip in the main pulmonary artery region. Pacer wires in place. He has been initiated on DuoNeb inhalations. Heparin for DVT prophylaxis. Patient was seen today on 04/29/2025, patient was extubated uneventfully yesterday, he is now on 2 L nasal cannula, patient is sitting in the bedside chair, fairly comfortable, he is complaining of some pain patient does have chronic pain syndrome and is mostly on narcotics on outpatient basis for chronic low back pain. Patient is now postoperative day #1, he is on IV fluid at 50 cc/h he is also on insulin, cardiac output is 5.5 cardiac index is 2.9, achieving 1000 cc on his incentive spirometry. Chest x-ray showed mostly right basilar atelectasis. Otherwise fairly unremarkable. Labs today were reviewed, WBC 7 hemoglobin 7.7 platelets 138, basic metabolic profile is normal creatinine is 1.16. Patient was seen today on 04/30/2025, patient is doing well, he was extubated uneventfully post CABG, today he is on 2 L nasal cannula, IV fluid KVO, patient is relatively hypotensive on midodrine, received 3 infusions of albumin he also received a heads of packed RBCs, remains on insulin at 2 units/h. Blood pressu re was low but seems to be better during my evaluation. Not requiring any pressors. Chest x-ray was reviewed, he has minimal basilar atelectasis no evidence of pulmonary edema. There is cardiomegaly. Patient was seen today on 05/01/2025, doing well, patient is on room air, had an ABG earlier showing a pO2 of 68 pCO2 52 pH of 7.42 patient has a relatively uneventful postoperative course, chest x-ray today is reassuring, patient is not in any distress, pain seems to be fairly well-controlled, patient to have his chest tube removed today. CBC showed WBC count of 9.3 hemoglobin 7.3, basic metabolic profile is normal except for bicarb being low at 16-21, BUN is 43 creatinine 1.62 definite rise in his creatinine compared to baseline of 1.08. This is most likely related to episodes of hypotension. Seen today on 05/02/2025, patient is doing great, on room air, sitting at the bedside chair, not in any form of distress, patient is ambulating with assistance. He does not have a active lifestyle to begin with. Labs were reviewed hemoglobin is 7.4 bicarb is 21 BUN 40 creat 1.57, chest x-ray showed right lower lobe atelectasis, with small right-sided pleural effusion and elevated right hemidiaphragm. Seen today on 05/03/2025, patient is now in monitored bed and selective, patient is doing well asymptomatic chest x-ray showed elevated right hemidiaphragm, but the radiologist keeps reading into the x-ray as showing moderate left-sided pleural effusion. Hence I recommended ultrasound of the chest, and the pleural effusion is very minimal and no need for thoracentesis. In the meantime the patient is relatively asymptomatic, hardly any pulmonary symptoms no cough no wheezing no shortness of breath. Objective - Vital Signs Vital signs: Vital Signs Temp 98.1 F 05/03/25 12:00 Pulse 89 05/03/25 12:00 Resp 16 05/03/25 12:00 BP 133/79 05/03/25 12:00 Pulse Ox 97 05/03/25 12:00 FiO2 45 04/28/25 16:20 Intake & Output 05/02/25 05/03/25 05/03/25 18:59 06:59 18:59 Intake Total 618 400 Output Total 600 300 450 Balance 18 -300 -50 Weight 77.3 kg Intake: Oral 618 400 Output: Urine 600 300 450 Other: Voiding Method Urinal Urinal Urinal # Voids 1 # Bowel Movements 1 ABP, PAP, CO, CI - Last Documented Arterial Blood Pressure 92/34 Pulmonary Artery Pressure 32/12 Cardiac Output 5.2 Cardiac Index 3.6 - Exam GENERAL EXAM: Revealed a 65-year-old white male on room air, not in distress HEAD: Normocephalic. Atraumatic EYES: PERRLA, EOMI, nonicteric NOSE: Clear with pink turbinates. THROAT: Moist mucous membranes, no erythema, no exudates CHEST: Sternal dressing dry and intact. LUNGS: Clear bilaterally no rhonchi no wheezes CVS: S1 and S2 normal with no audible murmur, regular rhythm. ABDOMEN: No hepatosplenomegaly, hypoactive bowel sounds, no guarding or rigidit y. SKIN: No rashes CENTRAL NERVOUS SYSTEM: Alert and oriented x 3 no gross focal deficit. EXTREMITIES: No clubbing edema or cyanosis - Labs CBC & Chem 7: 05/03/25 07:38 05/03/25 07:38 Labs: Abnormal Lab Results - Last 24 Hours (Table) 05/02/25 05/02/25 05/03/25 Range/Units 16:54 20:04 06:05 RBC (4.40-5.60) 10*6/uL Hgb (13.0-17.0) g/dL Hct (39.6-50.0) % MPV (9.5-12.2) fL Sodium (137-145) mmol/L Carbon Dioxide (22-30) mmol/L BUN (9-20) mg/dL Creatinine (0.66-1.25) mg/dL Glucose (74-99) mg/dL POC Glucose (mg/dL) 311 H 367 H 65 L (70-110) mg/dL 05/03/25 05/03/25 05/03/25 Range/Units 07:38 07:38 11:38 RBC 2.58 L (4.40-5.60) 10*6/uL Hgb 7.7 L (13.0-17.0) g/dL Hct 23.3 L (39.6-50.0) % MPV 9.2 L (9.5-12.2) fL Sodium 134 L (137-145) mmol/L Carbon Dioxide 21 L (22-30) mmol/L BUN 35 H (9-20) mg/dL Creatinine 1.45 H (0.66-1.25) mg/dL Glucose 72 L (74-99) mg/dL POC Glucose (mg/dL) 272 H (70-110) mg/dL Assessment and Plan Assessment: Impression: Triple-vessel coronary artery disease status post CABG, three-vessel bypass [facility] surgery, postoperative day #5 Paroxysmal atrial fibrillation, status post exclusion of the left atrial appendage and bilateral pulmonary vein isolation with radiofrequency bipolar clamp from AtriCure. Benign essential hypertension Dyslipidemia Type 2 diabetes with baseline hemoglobin A1c of 7.7 Hypothyroidism History of sepsis with bacteremia in 2023 along with acute kidney injury and septic shock with rhabdomyolysis in September 21, 2024 Remote history of nicotine dependence/ex-smoker GERD without esophagitis, Degenerative joint disease Elevated right hemidiaphragm no evidence of significant pleural effusion to address thoracentesis. Recommendation: No need for thoracentesis based on ultrasound of the chest findings Continue medical therapy including aspirin statin Plavix and beta-blockers Continue incentive spirometry Continue GI and DVT prophylaxis Ambulate with assistance Will continue to follow Time with Patient: Less than 30
[2025-05-03 15:56] LABS: Glucose,Whole Blood 198 mg/dL (70-110)
--- NOTE | 2025-05-03 19:17 | P.PN ---
Subjective Progress Note Date: 05/03/25 This is a pleasant 65-year-old male. He is currently evaluated in the intensive care unit pending a bed in the 3 S. selective unit. He is postoperative day #4 three-vessel coronary artery bypass grafting. His chest tubes are removed. He has been transition off of the insulin drip and currently on a combination of sliding scale Accu-Cheks and Lantus daily. His blood glucose has been fairly well-controlled. His labs today reveal a white blood cell count 8.76, hemoglobin 7.4, sodium 134, potassium 4.2, BUN of 40 creatinine of 1.57. He had a chest x-ray today which reveals moderate right pleural effusion and improving left lower lobe infiltrate correlate for atelectasis or pneumonia. He is curr ently afebrile and on room air. 05/03/2025 Patient evaluated in the cardiac stepdown unit. He is postoperative day 5 three-vessel coronary artery bypass grafting. He has been hypoglycemic we will stop the Lantus at at bedtime and continue on sliding scale insulin. Chest x- ray today reveals moderate right-sided pleural effusion BUN of 35 creatinine 1.45 and a sodium of 134. Review of Systems Constitutional: Denied any fatigue denied any fever. Cardio vascular: denied any chest pain, palpitations Gastrointestinal: denied any nausea, vomiting, diarrhea Pulmonary: Denied any shortness of breath cough Neurologic denied any new focal deficits All inpatient medications were reviewed and appropriate changes in these medications as dictated in the interval history and assessment and plan. PHYSICAL EXAMINATION: GENERAL: The patient is alert and oriented x3, not in any acute distress. Well developed, well nourished. HEENT: Pupils are round and equally reacting to light. EOMI. No scleral icterus. No conjunctival pallor. Normocephalic, atraumatic. No pharyngeal erythema. No thyromegaly. CARDIOVASCULAR: S1 and S2 present. No murmurs, rubs, or gallops. PULMONARY: Chest is clear to auscultation, no wheezing or crackles. ABDOMEN: Soft, nontender, nondistended, normoactive bowel sounds. No palpable organomegaly. MUSCULOSKELETAL: No joint swelling or deformity. EXTREMITIES: No cyanosis, clubbing, or pedal edema. NEUROLOGICAL: Gross neurological examination did not reveal any focal deficits. SKIN: No rashes. Assessment Coronary artery disease Postoperative day #4 three-vessel coronary artery bypass grafting Diabetes mellitus type 2 with hyperglycemia History of atrial fibrillation Hypertension Hyperlipidemia History of degenerative joint disease History of EtOH Gastroesophageal reflux disease History of peripheral diabetic neuropathy History of nicotine use Postoperative anemia Hyponatremia Mild acute kidney dysfunction likely prerenal GI prophylaxis DVT prophylaxis as per primary Full code Plan Continue to encourage incentive spirometry 10 times an hour while awake He has been transition off the insulin drip and is currently on sliding scale insulin with Accu-Cheks ACHS with lantus daily. Lantus HS has been discontinued. Continue oral iron daily Continue duonebs scheduled and PRN Continue bowel regimen Daily chest xray per CT surgery Monitor renal function The impression and plan of care has been dictated by Sharlene Pendleton Nurse Practitioner as directed. Dr. Randall MD I have performed a history and physical examination and medical decision making of this patient, discussed the same with the dictator, and agree with the dictators assessment and plan as written, documented as a scribe. Based on total visit time, I have performed more than 50% of this visit. Objective - Vital Signs Vital signs: Vital Signs Temp 98.1 F 05/03/25 08:00 Pulse 82 05/03/25 08:22 Resp 16 05/03/25 08:00 BP 129/66 05/03/25 08:00 Pulse Ox 95 05/03/25 08:09 FiO2 45 04/28/25 16:20 Intake & Output 05/02/25 05/03/25 05/03/25 18:59 06:59 18:59 Intake Total 618 Output Total 600 300 Balance 18 -300 Weight 77.3 kg Intake: Oral 618 Output: Urine 600 300 Other: Voiding Method Urinal Urinal # Voids 1 # Bowel Movements 1 ABP, PAP, CO, CI - Last Documented Arterial Blood Pressure 92/34 Pulmonary Artery Pressure 32/12 Cardiac Output 5.2 Cardiac Index 3.6 - Labs CBC & Chem 7: 05/03/25 07:38 05/03/25 07:38 Labs: Abnormal Lab Results - Last 24 Hours (Table) 05/02/25 05/02/25 05/02/25 Range/Units 11:12 16:54 20:04 RBC (4.40-5.60) 10*6/uL Hgb (13.0-17.0) g/dL Hct (39.6-50.0) % MPV (9.5-12.2) fL Sodium (137-145) mmol/L Carbon Dioxide (22-30) mmol/L BUN (9-20) mg/dL Creatinine (0.66-1.25) mg/dL Glucose (74-99) mg/dL POC Glucose (mg/dL) 192 H 311 H 367 H (70-110) mg/dL 05/03/25 05/03/25 05/03/25 Range/Units 06:05 07:38 07:38 RBC 2.58 L (4.40-5.60) 10*6/uL Hgb 7.7 L (13.0-17.0) g/dL Hct 23.3 L (39.6-50.0) % MPV 9.2 L (9.5-12.2) fL Sodium 134 L (137-145) mmol/L Carbon Dioxide 21 L (22-30) mmol/L BUN 35 H (9-20) mg/dL Creatinine 1.45 H (0.66-1.25) mg/dL Glucose 72 L (74-99) mg/dL POC Glucose (mg/dL) 65 L (70-110) mg/dL Assessment and Plan Time with Patient: Less than 30
[2025-05-03 20:01] LABS: Glucose,Whole Blood 259 mg/dL (70-110)
[2025-05-03 20:48] VITALS: RESP 16
[2025-05-04 02:24] LABS: Glucose,Whole Blood 93 mg/dL (70-110)
[2025-05-04 06:09] LABS: Glucose,Whole Blood 130 mg/dL (70-110)
--- NOTE | 2025-05-04 07:31 | XR ---
EXAMINATION TYPE: XR chest 2V DATE OF EXAM: 05/04/2025 6:30 AM COMPARISON: Chest radiograph from one day prior. CLINICAL INDICATION: Male, 65 years old with history of Post open heart; [facility] TECHNIQUE: XR chest 2V Frontal and lateral views of the chest. FINDINGS: Lungs/Pleura: Blunting of the right costophrenic angle. There is no evidence of left pleural effusio n, focal consolidation, or pneumothorax Pulmonary vascularity: Unremarkable. Heart/mediastinum: Cardiomediastinal silhouette is enlarged. Left atrial appendage occlusion device i s present. Musculoskeletal: No acute osseous pathology. Midline sternotomy wires are noted. IMPRESSION: Small right pleural effusion. [facility], , 05/04/2025 7:29 AM
[2025-05-04 07:40] LABS: HCT 22.6 % (39.6-50.0); HGB 7.3 g/dL (13.0-17.0); MCH 29.2 pg (27.0-32.0); MCHC 32.3 g/dL (32.0-37.0); MCV 90.4 fL (80.0-97.0); Platelet Count 286 10*3/uL (140-440); RDW 18.6 % (11.5-14.5); WBC 7.99 10*3/uL (4.50-10.00)
--- NOTE | 2025-05-04 08:03 | P.PN ---
Subjective Progress Note Date: 05/04/25 Principal diagnosis: Triple-vessel coronary artery disease, status post remote inferior wall myocardial infarction with previous PCI to the right and the circumflex system, moderate left ventricular dysfunction, fixed defect on the inferior wall on stress test. Previous medical history of diabetes mellitus, hypertension, hyperlipidemia, paroxysmal atrial fibrillation, recently diagnosed hypothyroidism, anemia, right knee severe arthritis, sepsis bacteremia in September of 2024, EtOH abuse with cessation in September 2024, rhabdomyolysis/SHERI/septic shock secondary to immobility in September 2024, GERD, and previous tobacco dependence. POD #6 triple-vessel coronary artery bypass grafting using the in situ left intramammary artery to the left anterior descending artery, left radial artery from the aorta to the obtuse marginal artery, reverse saphenous vein graft from the aorta to the very distal aspect of the posterior descending artery, bilateral pulmonary vein isolation using radiofrequency bipolar clamp from [employer], exclusion of the left atrial appendage using a 35mm, AtriClip, endoscopic harvesting of the left radial artery, endoscopic harvesting of the right greater saphenous vein from the lower leg, intraoperative graft flow measurements using the [employer] system, intraoperative transesophageal echocardiogram and epiaortic scanning. Postoperative acute blood loss anemia, expected given the patient's history of anemia, and hemodilution and cardiopulmonary bypass. The patient was seen and examined this morning sitting up in recliner on the cardiac stepdown unit in no acute distress, eating breakfast. States pain is controlled on current medication regimen, denies shortness of breath. Remains in sinus rhythm and hemodynamically stable, currently on room air with oxygen saturation in the mid 90s, able to achieve 2000 mL on incentive spirometry. The patient has been ambulatory with assistance, does need a walker which he was also using at home. Chest x-ray reviewed, labs pending. Radiology continues to read chest x-rays as patient having right sided pleural effusion, ultrasound completed yesterday per pulmonology revealing minimal effusion, not enough for thoracentesis. Patient does have right-sided elevated hemidiaphragm which he h ad preoperatively. Patient counseled regarding nutrition, need to cut back on sweets as the patient has been eating chocolate every night, blood sugar spike then he gets significant insulin and his blood sugars drop in the morning. No other new concerns. Objective - Vital Signs Vital signs: Vital Signs Temp 98.1 F 05/03/25 20:00 Pulse 84 05/04/25 04:00 Resp 16 05/04/25 04:00 BP 126/65 05/04/25 04:00 Pulse Ox 96 05/04/25 04:00 FiO2 45 04/28/25 16:20 Intake & Output 05/03/25 05/04/25 05/04/25 18:59 06:59 18:59 Intake Total 758 780 Output Total 450 1325 Balance 308 -545 Weight 74.1 kg Intake: Oral 758 780 Output: Urine 450 1325 Other: Voiding Method Urinal Urinal # Voids 1 ABP, PAP, CO, CI - Last Documented Arterial Blood Pressure 92/34 Pulmonary Artery Pressure 32/12 Cardiac Output 5.2 Cardiac Index 3.6 - Exam CONSTITUTIONAL: Appears comfortable, cooperative, no acute distress RESPIRATORY: Lungs sounds diminished in the bases bilaterally. Respirations even, nonlabored. Currently on room air with oxygen saturation 96%. Able to achieve 2000 mL on incentive spirometry. Strong cough. CARDIOVASCULAR: S1, S2 present. Regular rate and rhythm, sinus rhythm on telemetry. Sternum stable. Palpable peripheral pulses bilaterally. No edema present. No calf pain or tenderness noted. Heart hugger in place with patient demonstrating appropriate use. Antiembolism stockings, SCDs present. GASTROINTESTINAL: Abdomen soft, nontender, nondistended. Active bowel sounds present 4 quadrants. Tolerating diet. Positive bowel movement 05/02x3 GENITOURINARY: Continues to void, 1475 mL INTEGUMENTARY: Skin is warm and dry with evidence of good perfusion. Anterior chest incision well approximated. Left radial artery harvest site as well as right lower extremity EVH site well approximated without redness or drainage. NEUROLOGIC: Cranial nerves II through XII intact MUSKULOSKELETAL: Able to move all extremities, strength equal bilaterally, gait normal with walker PSYCHIATRIC: Alert and oriented to person place and time, appropriate affect, intact judgment and insight - Allied health notes Allied health notes reviewed: nursing - Labs CBC & Chem 7: 05/04/25 06:16 05/03/25 07:38 Labs: Abnormal Lab Results - Last 24 Hours (Table) 05/03/25 05/03/25 05/03/25 Range/Units 07:38 07:38 11:38 RBC 2.58 L (4.40-5.60) 10*6/uL Hgb 7.7 L (13.0-17.0) g/dL Hct 23.3 L (39.6-50.0) % MPV 9.2 L (9.5-12.2) fL Sodium 134 L (137-145) mmol/L Carbon Dioxide 21 L (22-30) mmol/L BUN 35 H (9-20) mg/dL Creatinine 1.45 H (0.66-1.25) mg/dL Glucose 72 L (74-99) mg/dL POC Glucose (mg/dL) 272 H (70-110) mg/dL 05/03/25 05/03/25 05/04/25 Range/Units 15:54 20:00 06:08 RBC (4.40-5.60) 10*6/uL Hgb (13.0-17.0) g/dL Hct (39.6-50.0) % MPV (9.5-12.2) fL Sodium (137-145) mmol/L Carbon Dioxide (22-30) mmol/L BUN (9-20) mg/dL Creatinine (0.66-1.25) mg/dL Glucose (74-99) mg/dL POC Glucose (mg/dL) 198 H 259 H 130 H (70-110) mg/dL 05/04/25 Range/Units 06:16 RBC 2.50 L (4.40-5.60) 10*6/uL Hgb 7.3 L (13.0-17.0) g/dL Hct 22.6 L (39.6-50.0) % MPV 9.0 L (9.5-12.2) fL Sodium (137-145) mmol/L Carbon Dioxide (22-30) mmol/L BUN (9-20) mg/dL Creatinine (0.66-1.25) mg/dL Glucose (74-99) mg/dL POC Glucose (mg/dL) (70-110) mg/dL - Imaging and Cardiology Chest x-ray: report reviewed, image reviewed Assessment and Plan Assessment: Triple-vessel coronary artery disease, status post four-vessel CABG Postoperative acute blood loss anemia, expected given the patient's history of anemia, and hemodilution and cardiopulmonary bypass Paroxysmal atrial fibrillation, status post bilateral pulmonary vein isolation and exclusion of the left atrial appendage History of coronary artery disease with remote inferior wall myocardial infarction, previous PCI to the right and the circumflex system Moderate left ventricular dysfunction, fixed defect on the inferior wall on stress test Diabetes mellitus, preoperative hemoglobin A1c 7.7% Hypertension Hyperlipidemia Recently diagnosed hypothyroidism Anemia Sepsis bacteremia in September of 2024 EtOH abuse with cessation in September 2024 Rhabdomyolysis/SHERI/septic shock in September 2024 GERD Previous tobacco dependence. Plan: Continue to maximize medical therapy with aspirin, statin, Plavix, and beta- katja, will increase beta-katja therapy when able Continue low dose calcium channel katja with hold parameters for radial artery spasm prophylaxis. Encourage incentive spirometry use 10 times every hour while awake, bronchodilator per pulmonary. Increase activity as tolerated, PT/OT/cardiac rehab following. Will monitor daily labs and chest x-rays, electrolyte replacement per protocol. GI/DVT prophylaxis. Pain control per current medication regimen. Insulin management per internal medicine Encouraged better nutrition, decreased sweets Continue to monitor strict accurate intake and output. May bladder scan every 6 hours and as needed postvoid residuals. Discharge planning in progress, anticipate discharge to home with home care today versus tomorrow More recommendations to follow based on patient's clinical course.
[2025-05-04 08:05] LABS: African American GFR (CKD) 58 (>60 ml/min/1.73 sqM); Anion Gap 10 mmol/L; Blood Urea Nitrogen 24 mg/dL (9-20); Calcium 8.5 mg/dL (8.4-10.2); Carbon Dioxide 22 mmol/L (22-30); Chloride 103 mmol/L (98-107); Glucose 102 mg/dL (74-99); Magnesium 1.7 mg/dL (1.6-2.3); Non-African American GFR(CKD) 51 (>60 ml/min/1.73 sqM); Potassium 4.6 mmol/L (3.5-5.1); Sodium 135 mmol/L (137-145)
[2025-05-04] MEDS: MAGNESIUM SULFATE-D5W PMX 1 GM in DEXTROSE/WATER 1 100ML.BAG IVPB SCH (09:10)
[2025-05-04 09:13] VITALS: BP 122/69; PULSE 80; TEMP 97.8
--- NOTE | 2025-05-04 09:34 | P.PN ---
Subjective HISTORY OF PRESENT ILLNESS: This is a 65-year-old male who is status post CABG. Patient examined this morning. He is sitting up in chair. Patient currently denies chest pain or pressure. He denies shortness of breath. Vital signs are stable. Telemetry reveals sinus mechanism. 05/04/2025 Patient examined this morning. Patient is sitting up in the chair. Patient currently denies chest pain or pressure. He denies shortness of breath. He is maintaining sinus mechanism. Vital signs are stable. PHYSICAL EXAM: VITAL SIGNS: Reviewed. GENERAL: Well-developed in no acute distress. NECK: Supple. No JVD or thyromegaly LUNGS: Respirations even and unlabored. Lungs essentially clear to auscultation bilaterally. HEART: Regular rate and rhythm. S1 and S2 heard. EXTREMITIES: Normal range of motion. No clubbing or cyanosis. Peripheral pulses intact. No lower extremity edema ASSESSMENT: Coronary artery disease, status post four-vessel CABG Paroxysmal atrial fibrillation History of CAD with previous PCI Hypertension Hyperlipidemia Diabetes Hypothyroidism History of alcohol abuse with cessation in 09/2024 Former nicotine dependence PLAN: Continue postoperative management per CT surgery Increase activity as tolerated Encourage use of incentive spirometer Continue current cardiac medications Patient is stable for discharge home today from a cardiac standpoint Further recommendations pending patient course Patient to follow-up postdischarge with Dr. Saavedra Nurse practitioner note has been reviewed by physician. Signing provider agrees with the documented findings, assessment, and plan of care documented by [employer] as a scribe. Objective - Vital Signs Vital signs: Vital Signs Temp 97.8 F 05/04/25 08:00 Pulse 82 05/04/25 08:19 Resp 16 05/04/25 08:00 BP 122/69 05/04/25 08:00 Pulse Ox 95 05/04/25 08:07 FiO2 45 04/28/25 16:20 Intake & Output 05/03/25 05/04/25 05/04/25 18:59 06:59 18:59 Intake Total 758 780 240 Output Total 450 1325 Balance 308 -545 240 Weight 74.1 kg Intake: Oral 758 780 240 Output: Urine 450 1325 Other: Voiding Method Urinal Urinal # Voids 1 ABP, PAP, CO, CI - Last Documented Arterial Blood Pressure 92/34 Pulmonary Artery Pressure 32/12 Cardiac Output 5.2 Cardiac Index 3.6 - Labs CBC & Chem 7: 05/04/25 06:16 05/04/25 06:16 Labs: Abnormal Lab Results - Last 24 Hours (Table) 05/03/25 05/03/25 05/03/25 Range/Units 11:38 15:54 20:00 RBC (4.40-5.60) 10*6/uL Hgb (13.0-17.0) g/dL Hct (39.6-50.0) % MPV (9.5-12.2) fL Sodium (137-145) mmol/L BUN (9-20) mg/dL Creatinine (0.66-1.25) mg/dL Glucose (74-99) mg/dL POC Glucose (mg/dL) 272 H 198 H 259 H (70-110) mg/dL 05/04/25 05/04/25 05/04/25 Range/Units 06:08 06:16 06:16 RBC 2.50 L (4.40-5.60) 10*6/uL Hgb 7.3 L (13.0-17.0) g/dL Hct 22.6 L (39.6-50.0) % MPV 9.0 L (9.5-12.2) fL Sodium 135 L (137-145) mmol/L BUN 24 H (9-20) mg/dL Creatinine 1.46 H (0.66-1.25) mg/dL Glucose 102 H (74-99) mg/dL POC Glucose (mg/dL) 130 H (70-110) mg/dL
[2025-05-04] MEDS ORDERED: FUROSEMIDE 40 MG TAB PO STA (10:07)
--- NOTE | 2025-05-04 10:34 | P.DS ---
Providers Date of admission: 04/28/25 05:38 Expected date of discharge: 05/04/25 Attending physician: Ravindra Pitt Consults: 04/28/25 14:23 Consult Physician Routine Consulting Provider: Arianna Chaudhari Consult Reason/Comments: Pharmacy Picking Technician Consult: post cardiac surgery Do you want consulting provider notified?: Yes Consult Physician Routine Consulting Provider: Pierre Rubio Consult Reason/Comments: Diabetes management Do you want consulting provider notified?: Yes Consult Physician Routine Consulting Provider: Angela Saavedra Consult Reason/Comments: Engineering Specialist Technician Consult: post cardiac surgery Do you want consulting provider notified?: Yes Primary care physician: Justina Carrion [facility] Course: FINAL DIAGNOSIS: Triple-vessel coronary artery disease Postoperative acute blood loss anemia, expected given the patient's history of anemia, and hemodilution and cardiopulmonary bypass Paroxysmal atrial fibrillation History of coronary artery disease with remote inferior wall myocardial infarction, previous PCI to the right and the circumflex system Moderate left ventricular dysfunction, fixed defect on the inferior wall on stress test Diabetes mellitus, preoperative hemoglobin A1c 7.7% Hypertension Hyperlipidemia Recently diagnosed hypothyroidism Anemia Sepsis bacteremia in September of 2024 EtOH abuse with cessation in September 2024 Rhabdomyolysis/SHERI/septic shock in September 2024 GERD Previous tobacco dependence. PRINCIPAL PROCEDURE: Triple-vessel coronary artery bypass grafting using the in situ left intramammary artery to the left anterior descending artery, left radial artery from the aorta to the obtuse marginal artery, reverse saphenous vein graft from the aorta to the very distal aspect of the posterior descending artery Bilateral pulmonary vein isolation using radiofrequency bipolar clamp from AtriCure Exclusion of the left atrial appendage using a 35mm AtriClip Endoscopic harvesting of the left radial artery Endoscopic harvesting of the right greater saphenous vein from the lower leg Intraoperative graft flow measurements using the [employer] system Intraoperative transesophageal echocardiogram and epiaortic scanning HISTORY OF PRESENT ILLNESS: This is a 64-year-old gentleman who follows outpatient with Dr. Carrion for primary care and Dr. Saavedra for cardiology. This gentleman had extensive hospitalization at the end 2023 for sepsis with right knee septic arthritis, rhabdomyolysis, DTs, and he underwent right thoracentesis for effusion at that time. Upon discharge from that hospitalization he went to subacute rehab to regain strength. He had been due to have a scheduled stress test in November, unfortunately due to his health conditions that was delayed. He was able to undergo stress testing in January of this year which was abnormal demonstrating fixed inferior wall defect and ejection fraction 35%. The patient reported he has had no chest pain, no shortness of breath, no nausea/vomiting, no symptoms of ischemic coronary disease. He was recommended to undergo elective heart catheterization which was completed by Dr. Saavedra revealing calcified coronary artery disease with severe disease in the mid LAD, proximal and mid left circumflex, and mid to distal RCA, indicating progression of disease since 2021. Due to these findings consultation was placed to Dr. Pitt for surgical revascularization recommendations. He was recommended to undergo surgical myocardial revascularization. The usual perioperative course was discussed in detail with the patient and his family, all risks and benefits were explained, all questions were answered, and consent was obtained to proceed with surgery. The patient was discharged to home on maximal medical therapy to return as an outpatient for elective surgery after getting better control over his diabetes. HOSPITAL COURSE: The patient was brought to the hospital on 04/28/25, taken to the preoperative area, prepared in the usual fashion, and subsequently taken to the operating room where Dr. Pitt performed three-vessel CABG. Upon completion of surgery the patient was transferred to the cardiovascular intensive care unit where he was recovered and monitored hemodynamically. He was extubated, all lines, tubes, and drips were discontinued when appropriate, and he was transferred to 3 S. cardiac stepdown unit for further monitoring and rehabilitation. His oxygen was titrated down, he continued to work with physical and occupational therapy, he was tolerating oral diet, his pain was controlled, and he was ready to be discharged to home with [facility] home care on p ostoperative day #6. He received written and verbal instruction regarding his medications, activity restrictions, signs and symptoms requiring physician notification, and follow-up appointments. Patient Condition at Discharge: Stable Plan - Discharge Summary Discharge Rx Participant: No New Discharge Prescriptions: New Furosemide [Lasix] 40 mg PO DAILY #3 tablet Metoprolol Tartrate [Lopressor] 12.5 mg PO BID #60 tab Midodrine [ProAmatine] 5 mg PO AC-BID #60 tab Amiodarone [Cordarone] 400 mg PO BID #27 tab amLODIPine [Norvasc] 2.5 mg PO DAILY@1200 #30 tab Clopidogrel [Plavix] 75 mg PO DAILY #30 tab Sennosides-Docusate Sodium [Senokot-S] 2 each PO HS PRN tab PRN Reason: Constipation Continue Aspirin [Adult Low Dose Aspirin EC] 81 mg PO DAILY INSULIN ASPART (NovoLOG) [NovoLOG (formulary)] 0 unit SQ ACHS each Cholecalciferol [Vitamin D3 (25 Mcg = 1000 Iu)] 100 mcg PO DAILY tab Pantoprazole [Protonix] 40 mg PO DAILY Insulin Glargine,Hum.rec.anlog [Lantus Solostar Pen] 20 units SQ DAILY Empagliflozin [Jardiance] 10 mg PO DAILY Atorvastatin [Lipitor] 40 mg PO DAILY tab Magnesium Oxide [Mag-Ox] 400 mg PO DAILY Insulin Glargine,Hum.rec.anlog [Lantus Solostar Pen] 5 - 10 units SQ HS Levothyroxine Sodium [Synthroid] 50 mcg PO DAILY Hydrocodone/Acetaminophen [Hydrocodone/Acetaminophen 7.5-325] 1 tab PO BID PRN PRN Reason: Pain Fish Oil/Dha/Epa [Fish Oil 1,200 mg Fish Oil] 1 each PO HS Vitamin B12 1 dose PO DAILY Tumeric 500mg 1 tab PO DAILY Ferrous Sulfate [Iron (65 MG Elemental)] 325 mg PO DAILY Discontinued Metoprolol Tartrate [Lopressor] 50 mg PO DAILY Unk Milk Thistle 1 tab PO DAILY ramipriL [Altace] 2.5 mg PO DAILY Mupirocin [Mupirocin 2%] 1 applic NASAL BID #1 tub Discharge Medication List Aspirin [Adult Low Dose Aspirin EC] 81 mg PO DAILY 08/29/18 [History] Atorvastatin [Lipitor] 40 mg PO DAILY tab 11/11/24 [Rx] Cholecalciferol [Vitamin D3 (25 Mcg = 1000 Iu)] 100 mcg PO DAILY tab 11/11/24 [Rx] INSULIN ASPART (NovoLOG) [NovoLOG (formulary)] 0 unit SQ ACHS each 11/11/24 [Rx] Empagliflozin [Jardiance] 10 mg PO DAILY 02/26/25 [History] Insulin Glargine,Hum.rec.anlog [Lantus Solostar Pen] 5 - 10 units SQ HS 02/26/25 [History] Insulin Glargine,Hum.rec.anlog [Lantus Solostar Pen] 20 units SQ DAILY 02/26/25 [History] Magnesium Oxide [Mag-Ox] 400 mg PO DAILY 02/26/25 [History] Pantoprazole [Protonix] 40 mg PO DAILY 02/26/25 [History] Ferrous Sulfate [Iron (65 MG Elemental)] 325 mg PO DAILY 04/22/25 [History] Fish Oil/Dha/Epa [Fish Oil 1,200 mg Fish Oil] 1 each PO HS 04/22/25 [History] Hydrocodone/Acetaminophen [Hydrocodone/Acetaminophen 7.5-325] 1 tab PO BID PRN 04/22/25 [History] Levothyroxine Sodium [Synthroid] 50 mcg PO DAILY 04/22/25 [History] Tumeric 500mg 1 tab PO DAILY 04/22/25 [History] Vitamin B12 1 dose PO DAILY 04/22/25 [History] Amiodarone [Cordarone] 400 mg PO BID #27 tab 05/04/25 [Rx] Clopidogrel [Plavix] 75 mg PO DAILY #30 tab 05/04/25 [Rx] Furosemide [Lasix] 40 mg PO DAILY #3 tablet 05/04/25 [Rx] Metoprolol Tartrate [Lopressor] 12.5 mg PO BID #60 tab 05/04/25 [Rx] Midodrine [ProAmatine] 5 mg PO AC-BID #60 tab 05/04/25 [Rx] Sennosides-Docusate Sodium [Senokot-S] 2 each PO HS PRN tab 05/04/25 [Rx] amLODIPine [Norvasc] 2.5 mg PO DAILY@1200 #30 tab 05/04/25 [Rx] Follow up Appointment(s)/Referral(s): Arianna Chaudhari MD [STAFF PHYSICIAN] - 1 Week (Will call with appointment) Angela Saavedra MD [STAFF PHYSICIAN] - 1 Week (Will call with appointment) Rehab Skyler ,Cardiac [NON-STAFF] - 4 Weeks (You will receive a phone call in approximately 4-6 weeks for evaluation for cardiac rehab) Justina Carrion MD [Primary Care Provider] - 1 Week (Will call with appointment) [facility] Vis[facility] Nurse, [NON-STAFF] - 1-2 Days ([facility] the day after discharge, then 2-3 times per week until you start cardiac rehab. Physical and occupational therapy should visit at least once, may continue to visit if needed) Beto Anne NPC [Nurse Practitioner] - 05/09/25 12:00 pm (You will be seen in the surgeon's office behind the hospital in [facility], [address] Office phone number is ) Ravindra Pitt MD [STAFF PHYSICIAN] - 4 Weeks (will call with appointment) Ambulatory/Diagnostic Orders: Complete Blood Count w/diff [LAB.AMB] Time Frame: 3 Days, Location: None Selected Comprehensive Metabolic Panel [LAB.AMB] Time Frame: 3 Days, Location: None Selected Activity/Diet/Wound Care/Special Instructions: DISCHARGE INSTRUCTIONS: 1. No driving for 4 weeks, or until physician gives their ok. 2. The patient should sleep in their own bed, no medical bed needed. 3. Stairs are not an issue. If the bedroom is upstairs, it is advised that the patient go up at night and down in the morning for the first week. Go slowly, using handrail and take 1 step at a time. 4. CAMI hose are to be worn for 30 days post surgery or until physician discontinues. 5. Heart hugger is to be worn 100% of the time until physician discontinues.(except when showering) 6. No lifting, pushing, or pulling more than 10 pounds for 12 weeks. The physician will advise of any restriction changes. 7. The patient is expected to continue the prescribed walking program. 8. Continue pain control per as needed orders. 9. Continue with incentive spirometry and splinting/heart hugger until otherwise directed by the physician. 10. Must shower daily using liquid antibacterial soap 11. Routine sternal incision care. No powders, lotions, ointments on incisions. No dressings are necessary on incisions unless they are draining. Dermabond tape is to remain on sternal incision until surgeon follow-up. 12. Please call surgeon/SCREENPLAY WRITER for temp greater than 101 F or purulent drainage from incisions. 13. You should weigh yourself daily, record and bring log with you to follow up appointments. 14. All prescriptions given by surgeon for 30 days. Refills need to be filled through mortgage assistant/primary care physician. 15. A Red armband has been placed on the patient. It should be worn for 30 days post discharge from surgery and will be removed by the cardiac surgeons. If an ER visit is necessary, please make sure the number on the Red armband is called before going to ER. 16. You have been referred to and are expected to begin Cardiac Rehab in approximately 4-6 weeks. 17. Quitting smoking is the most important step you can take to improve your health. For additional information and assistance to quit smoking, please call the [place] tobacco quit line (9-969-AKGX-NOW/ ) or online: [email or web address] HEALTH SERVICES TO PROVIDE: RN SKILLED HOME CARE SERVICES FOR POST-OP SURGICAL PATIENTS WITH THE FOLLOWING: Coronary Artery Bypass Surgery (CABG), Mitral Valve Replacement/Repair ( MVR), Aortic Valve Replacement/Repair (AVR) RN TO CONTINUE EDUCATION FROM ``ROAD TO A HEALTH HEART PATIENT EDUCATION MANUAL (GIVEN TO PATIENT IN THE HOSPITAL) MEDICATION RECONCILIATION WITH EDUCATION NEEDED ON FIRST HOME VISIT EMPHASIZE IMPORTANCE OF WEARING BREAST SUPPORT/HEART HUGGER ENCOURAGE USE OF INCENTIVE SPIROMETER 10 X EVERY HOUR WHILE AWAKE ENCOURAGE UTILIZATION OF LOWER EXTREMITY COMPRESSION STOCKINGS/CAMI HOSE and ELEVATE LEGS ABOVE LEVEL OF HEART WHILE AT REST. ENCOURAGE AMBULATION 3-5x/day INCREASING TOLERATES, WHILE AVOIDING EXTREMES IN TEMPERATURE FREQUENCY: RN TO OPEN THE PATIENT WITHIN 24 HOURS OF DISCHARGE FROM THE HOSPITAL WITH TELEHEALTH INSTALLED AT [facility], RN TO VISIT 2-3 X A WEEK FOR 4 WEEKS ESTABLISHED BY PATIENT NEEDS. LABORATORY: CBC, CMP TO BE DRAWN ON THE THIRD DAY HOME, (RAN STAT) FAX RESULTS TO [phone]. TELEHEALTH PARAMETERS: WEIGHT: NOTIFY MD OF WEIGHT GAIN OF 2 LBS IN 24 HOURS OR 5 LBS IN ONE WEEK HR: NOTIFY MD OF HR <55 BPM OR HR>100 BPM BP: NOTIFY MD IF BP <90/55 OR BP>140/100 O2 SAT: NOTIFY MD IF PO2<93% ON ROOM AIR SEND TELEHEALTH REPORT TO RAILROAD CAR LOADER AND CARDIOVASCULAR SURGEON THE FIRST WEEK OF CARE AND THEN BI-WEEKLY. PLEASE ADDITIONALLY COMMUNICATE ANY ABNORMALS AND NEW FINDINGS TO THE SURGEONS OFFICE. Discharge Disposition: HOME WITH HOME HEALTH SERVICES
[2025-05-04 11:44] LABS: Glucose,Whole Blood 269 mg/dL (70-110)
--- NOTE | 2025-05-04 15:05 | P.PN ---
Subjective Progress Note Date: 05/04/25 Principal diagnosis: POD # 6 triple-vessel coronary artery bypass grafting using the in situ left intramammary artery to the left anterior descending artery, left radial artery from the aorta to the obtuse marginal artery, reverse saphenous vein graft from the aorta to the very distal aspect of the posterior descending artery, bilateral pulmonary vein isolation using radiofrequency bipolar clamp from AtriCure, exclusion of the left atrial appendage using a 35mm, AtriClip, en doscopic harvesting of the left radial artery, endoscopic harvesting of the right greater saphenous vein from the lower leg, intraoperative graft flow measurements using the [employer] system, intraoperative transesophageal echocardiogram and epiaortic scanning. This is a 65-year-old male patient with a known history of hypertension, hyperlipidemia, diabetes mellitus, paroxysmal atrial fibrillation, chronic anemia, previous chronic tobacco dependence, previous alcohol abuse, marijuana use, coronary artery disease with previous stent placement. He was recently found to have calcified coronary artery disease with severe disease in the mid LAD, proximal and mid left circumflex, mid to distal RCA and was recommended coronary revascularization. He was brought in today electively for the surgery. He did undergo coronary artery bypass grafting utilizing the GEIGER to the LAD, left radial artery to the obtuse marginal artery, reverse saphenous vein graft to the distal aspect of the posterior descending artery. Clipping of the left atrial appendage. He is seen now in the intensive care unit intubated and on the mechanical ventilator. Current settings are assist-control mode at a rate of 12, tidal volume 500, FiO2 100% and a PEEP of 5. Arterial blood gases revealed a PO2 of 369, PCO2 of 36 and a pH of 7.43. FiO2 titrated down to 45% currently. White count 7.2. Hemoglobin 8.2. Platelets 113. Sodium 141. Potassium 4.2. Bicarb 23. BUN 24. Creatinine 1.08. Glucose 104. He is currently on a nitroglycerin drip at 5 mcg/min. Sedated on propofol at 30 mcg/kg/min. Normal saline at 50 mL/h. Cardiac output 4.1. Cardiac index 2.2. PA pressures 33/18. CVP 14. Chest x-ray reveals right lower lobe atelectatic changes. Very tiny left apical pneumothorax. Mediastinal and left sided chest tubes remain in place. Endotracheal tube 4 cm above the marvel. Nasogastric tube in place. Right [place]-Reva catheter tip in the main pulmonary artery region. Pacer wires in place. He has been initiated on DuoNeb inhalations. Heparin for DVT prophylaxis. Patient was seen today on 04/29/2025, patient was extubated uneventfully yesterday, he is now on 2 L nasal cannula, patient is sitting in the bedside chair, fairly comfortable, he is complaining of some pain patient does have chronic pain syndrome and is mostly on narcotics on outpatient basis for chronic low back pain. Patient is now postoperative day #1, he is on IV fluid at 50 cc/h he is also on insulin, cardiac output is 5.5 cardiac index is 2.9, achieving 1000 cc on his incentive spirometry. Chest x-ray showed mostly right basilar atelectasis. Otherwise fairly unremarkable. Labs today were reviewed, WBC 7 hemoglobin 7.7 platelets 138, basic metabolic profile is normal creatinine is 1.16. Patient was seen today on 04/30/2025, patient is doing well, he was extubated uneventfully post CABG, today he is on 2 L nasal cannula, IV fluid KVO, patient is relatively hypotensive on midodrine, received 3 infusions of albumin he also received a heads of packed RBCs, remains on insulin at 2 units/h. Blood pressu re was low but seems to be better during my evaluation. Not requiring any pressors. Chest x-ray was reviewed, he has minimal basilar atelectasis no evidence of pulmonary edema. There is cardiomegaly. Patient was seen today on 05/01/2025, doing well, patient is on room air, had an ABG earlier showing a pO2 of 68 pCO2 52 pH of 7.42 patient has a relatively uneventful postoperative course, chest x-ray today is reassuring, patient is not in any distress, pain seems to be fairly well-controlled, patient to have his chest tube removed today. CBC showed WBC count of 9.3 hemoglobin 7.3, basic metabolic profile is normal except for bicarb being low at 16-21, BUN is 43 creatinine 1.62 definite rise in his creatinine compared to baseline of 1.08. This is most likely related to episodes of hypotension. Seen today on 05/02/2025, patient is doing great, on room air, sitting at the bedside chair, not in any form of distress, patient is ambulating with assistance. He does not have a active lifestyle to begin with. Labs were reviewed hemoglobin is 7.4 bicarb is 21 BUN 40 creat 1.57, chest x-ray showed right lower lobe atelectasis, with small right-sided pleural effusion and elevated right hemidiaphragm. Seen today on 05/03/2025, patient is now in monitored bed and selective, patient is doing well asymptomatic chest x-ray showed elevated right hemidiaphragm, but the radiologist keeps reading into the x-ray as showing moderate left-sided pleural effusion. Hence I recommended ultrasound of the chest, and the pleural effusion is very minimal and no need for thoracentesis. In the meantime the patient is relatively asymptomatic, hardly any pulmonary symptoms no cough no wheezing no shortness of breath. Seen today on 05/04/2025, patient is doing great, on room air, not in any distress, plans are being in progress for discharging the patient home today. Chest x-ray is about the same, again no evidence of any significant pleural effusion. No evidence of pulmonary edema. No evidence of pneumothorax. Objective - Vital Signs Vital signs: Vital Signs Temp 97.8 F 05/04/25 08:00 Pulse 82 05/04/25 08:19 Resp 16 05/04/25 08:00 BP 122/69 05/04/25 08:00 Pulse Ox 95 05/04/25 08:07 FiO2 45 05/04/25 07:00 Intake & Output 05/03/25 05/04/25 05/04/25 18:59 06:59 18:59 Intake Total 758 780 240 Output Total 450 1325 300 Balance 308 545 -60 Weight 74.1 kg Intake: Oral 758 780 240 Output: Urine 450 1325 300 Other: Voiding Method Urinal Urinal Urinal # Voids 1 1 # Bowel Movements 1 ABP, PAP, CO, CI - Last Documented Arterial Blood Pressure 92/34 Pulmonary Artery Pressure 32/12 Cardiac Output 5.2 Cardiac Index 3.6 - Exam GENERAL EXAM: Revealed a 65-year-old white male on room air, not in distress HEAD: Normocephalic. Atraumatic EYES: PERRLA, EOMI, nonicteric NOSE: Clear with pink turbinates. THROAT: Moist mucous membranes, no erythema, no exudates CHEST: Sternal dressing dry and intact. LUNGS: Clear bilaterally no rhonchi no wheezes CVS: S1 and S2 normal with no audible murmur, regular rhythm. ABDOMEN: No hepatosplenomegaly, hypoactive bowel sounds, no guarding or rigidity. SKIN: No rashes CENTRAL NERVOUS SYSTEM: Alert and oriented x 3 no gross focal deficit. EXTREMITIES: No clubbing edema or cyanosis - Labs CBC & Chem 7: 05/04/25 06:16 05/04/25 06:16 Labs: Abnormal Lab Results - Last 24 Hours (Table) 05/03/25 05/03/25 05/04/25 Range/Units 15:54 20:00 06:08 RBC (4.40-5.60) 10*6/uL Hgb (13.0-17.0) g/dL Hct (39.6-50.0) % MPV (9.5-12.2) fL Sodium (137-145) mmol/L BUN (9-20) mg/dL Creatinine (0.66-1.25) mg/dL Glucose (74-99) mg/dL POC Glucose (mg/dL) 198 H 259 H 130 H (70-110) mg/dL 05/04/25 05/04/25 05/04/25 Range/Units 06:16 06:16 11:42 RBC 2.50 L (4.40-5.60) 10*6/uL Hgb 7.3 L (13.0-17.0) g/dL Hct 22.6 L (39.6-50.0) % MPV 9.0 L (9.5-12.2) fL Sodium 135 L (137-145) mmol/L BUN 24 H (9-20) mg/dL Creatinine 1.46 H (0.66-1.25) mg/dL Glucose 102 H (74-99) mg/dL POC Glucose (mg/dL) 269 H (70-110) mg/dL Assessment and Plan Assessment: Impression: Triple-vessel coronary artery disease status post CABG, three-vessel bypass grafting surgery, postoperative day #6 Paroxysmal atrial fibrillation, status post exclusion of the left atrial appendage and bilateral pulmonary vein isolation with radiofrequency bipolar clamp from [employer]. Benign essential hypertension Dyslipidemia Type 2 diabetes with baseline hemoglobin A1c of 7.7 Hypothyroidism History of sepsis with bacteremia in 2023 along with acute kidney injury and septic shock with rhabdomyolysis in September 21, 2024 Remote history of nicotine dependence/ex-smoker GERD without esophagitis, Degenerative joint disease Elevated right hemidiaphragm no evidence of significant pleural effusion to address thoracentesis. Recommendation: Agree with discharge planning, follow-up on outpatient basis Time with Patient: Less than 30
[2025-05-04] MEDS ORDERED: MIDODRINE 5 MG TAB PO SCH (17:30)
[2025-05-04] MEDS ORDERED: INSULIN GLARGINE (LANTUS) 100 UNIT/ML SYR SQ SCH (21:00)
--- NOTE | 2025-05-05 22:46 | P.PN ---
Subjective Progress Note Date: 05/04/25 This is a pleasant 65-year-old male. He is currently evaluated in the intensive care unit pending a bed in the 3 S. selective unit. He is postoperative day #4 three-vessel coronary artery bypass grafting. His chest tubes are removed. He has been transition off of the insulin drip and currently on a combination of sliding scale Accu-Cheks and Lantus daily. His blood glucose has been fairly well-controlled. His labs today reveal a white blood cell count 8.76, hemoglobin 7.4, sodium 134, potassium 4.2, BUN of 40 creatinine of 1.57. He had a chest x-ray today which reveals moderate right pleural effusion and improving left lower lobe infiltrate correlate for atelectasis or pneumonia. He is curr ently afebrile and on room air. 05/03/2025 Patient evaluated in the cardiac stepdown unit. He is postoperative day 5 three-vessel coronary artery bypass grafting. He has been hypoglycemic we will stop the Lantus at at bedtime and continue on sliding scale insulin. Chest x- ray today reveals moderate right-sided pleural effusion BUN of 35 creatinine 1.45 and a sodium of 134. 05/04/2025 Patient is evaluated in follow-up in the cardiac stepdown unit. He is status post three-vessel coronary artery bypass grafting. His chest ultrasound yesterday revealed a small right sided pleural effusion. His labs today reveal a blood cell count of 7.9 and hemoglobin 7.3, sodium of 135 BUN of 24 creatinine of 1.46. His blood glucose has been ranging from 93-259. His blood glucose was 130 this morning. He is afebrile he is saturating 96% on room air. Review of Systems Constitutional: Denied any fatigue denied any fever. Cardio vascular: denied any chest pain, palpitations Gastrointestinal: denied any nausea, vomiting, diarrhea Pulmonary: Denied any shortness of breath cough Neurologic denied any new focal deficits All inpatient medications were reviewed and appropriate changes in these me dications as dictated in the interval history and assessment and plan. PHYSICAL EXAMINATION: GENERAL: The patient is alert and oriented x3, not in any acute distress. Well developed, well nourished. HEENT: Pupils are round and equally reacting to light. EOMI. No scleral icterus. No conjunctival pallor. Normocephalic, atraumatic. No pharyngeal erythema. No thyromegaly. CARDIOVASCULAR: S1 and S2 present. No murmurs, rubs, or gallops. PULMONARY: Chest is clear to auscultation, no wheezing or crackles. ABDOMEN: Soft, nontender, nondistended, normoactive bowel sounds. No palpable organomegaly. MUSCULOSKELETAL: No joint swelling or deformity. EXTREMITIES: No cyanosis, clubbing, or pedal edema. NEUROLOGICAL: Gross neurological examination did not reveal any focal deficits. SKIN: No rashes. Assessment Coronary artery disease Postoperative day #4 three-vessel coronary artery bypass grafting Diabetes mellitus type 2 with hyperglycemia Suspect left-sided Charcot foot and recommend outpatient follow-up with podiatry History of atrial fibrillation Hypertension Hyperlipidemia History of degenerative joint disease History of EtOH Gastroesophageal reflux disease History of peripheral diabetic neuropathy History of nicotine use Postoperative anemia Hyponatremia Mild acute kidney dysfunction likely prerenal GI prophylaxis DVT prophylaxis as per primary Full code Plan Continue to encourage incentive spirometry 10 times an hour while awake He has been transition off the insulin drip and is currently on sliding scale insulin with Accu-Cheks ACHS with lantus daily. Lantus HS has been discontinued. Continue oral iron daily Continue duonebs scheduled and PRN Continue bowel regimen Monitor renal function Patient to be discharged home today. The impression and plan of care has been dictated by Sharlene Pendleton, Nurse Practitioner as directed. Dr. Randall MD I have performed a history and physical examination and medical decision making of this patient, discussed the same with the dictator, and agree with the dictators assessment and plan as written, documented as a scribe. Based on total visit time, I have performed more than 50% of this visit. Objective - Vital Signs Vital signs: Vital Signs Temp 97.8 F 05/04/25 08:00 Pulse 82 05/04/25 08:19 Resp 16 05/04/25 08:00 BP 122/69 05/04/25 08:00 Pulse Ox 95 05/04/25 08:07 FiO2 45 04/28/25 16:20 Intake & Output 05/03/25 05/04/25 05/04/25 18:59 06:59 18:59 Intake Total 758 780 240 Output Total 450 1325 Balance 308 -545 240 Weight 74.1 kg Intake: Oral 758 780 240 Output: Urine 450 1325 Other: Voiding Method Urinal Urinal # Voids 1 ABP, PAP, CO, CI - Last Documented Arterial Blood Pressure 92/34 Pulmonary Artery Pressure 32/12 Cardiac Output 5.2 Cardiac Index 3.6 - Labs CBC & Chem 7: 05/04/25 06:16 05/04/25 06:16 Labs: Abnormal Lab Results - Last 24 Hours (Table) 05/03/25 05/03/25 05/03/25 Range/Units 11:38 15:54 20:00 RBC (4.40-5.60) 10*6/uL Hgb (13.0-17.0) g/dL Hct (39.6-50.0) % MPV (9.5-12.2) fL Sodium (137-145) mmol/L BUN (9-20) mg/dL Creatinine (0.66-1.25) mg/dL Glucose (74-99) mg/dL POC Glucose (mg/dL) 272 H 198 H 259 H (70-110) mg/dL 05/04/25 05/04/25 05/04/25 Range/Units 06:08 06:16 06:16 RBC 2.50 L (4.40-5.60) 10*6/uL Hgb 7.3 L (13.0-17.0) g/dL Hct 22.6 L (39.6-50.0) % MPV 9.0 L (9.5-12.2) fL Sodium 135 L (137-145) mmol/L BUN 24 H (9-20) mg/dL Creatinine 1.46 H (0.66-1.25) mg/dL Glucose 102 H (74-99) mg/dL POC Glucose (mg/dL) 130 H (70-110) mg/dL Assessment and Plan Time with Patient: Less than 30
== END 2025-05-04 12:11 | disposition home health service (06) | DRG 236 ==
LOC: 2ORMAIN 05:38 → 2SICU 13:55 → 3SCARD 05-02 13:48
PROVIDERS: ADMIT Surgery; ATTEND Surgery
PROC: 02L Heart and Great Vessels, Occlusion (ICD-10-PCS; 2025-04-28)
PROC: 02L Heart and Great Vessels, Occlusion (ICD-10-PCS; 2025-04-28)
PROC: 02L70CK Occlusion of Left Atrial Appendage with Extraluminal Device, Open Approach (ICD-10-PCS; 2025-04-28)
PROC: B24BZZ4 Ultrasonography of Heart with Aorta, Transesophageal (ICD-10-PCS; 2025-04-28)
PROC: 4A033BC Measurement of Arterial Pressure, Coronary, Percutaneous Approach (ICD-10-PCS; 2025-04-28)
PROC: 02100Z9 Bypass Coronary Artery, One Artery from Left Internal Mammary, Open Approach (ICD-10-PCS; principal; 2025-04-28 08:00)
PROC: 02100AW Bypass Coronary Artery, One Artery from Aorta with Autologous Arterial Tissue, Open Approach (ICD-10-PCS; 2025-04-28 08:00)
PROC: 021009W Bypass Coronary Artery, One Artery from Aorta with Autologous Venous Tissue, Open Approach (ICD-10-PCS; 2025-04-28 08:00)
PROC: 06BP4ZZ Excision of Right Saphenous Vein, Percutaneous Endoscopic Approach (ICD-10-PCS; 2025-04-28 08:00)
PROC: 05BA4ZZ Excision of Left Brachial Vein, Percutaneous Endoscopic Approach (ICD-10-PCS; 2025-04-28 08:00)
DX: I25.10 Atherosclerotic heart disease of native coronary artery without angina pectoris (principal); A52.16 Charcot's arthropathy (tabetic); E87.1 Hypo-osmolality and hyponatremia; D62 Acute posthemorrhagic anemia; I48.0 Paroxysmal atrial fibrillation; E86.9 Volume depletion, unspecified; E11.65 Type 2 diabetes mellitus with hyperglycemia; F10.21 Alcohol dependence, in remission; E03.9 Hypothyroidism, unspecified; I11.9 Hypertensive heart disease without heart failure; I34.0 Nonrheumatic mitral (valve) insufficiency; E11.649 Type 2 diabetes mellitus with hypoglycemia without coma; Z79.4 Long term (current) use of insulin; M19.90 Unspecified osteoarthritis, unspecified site; E78.5 Hyperlipidemia, unspecified; K21.9 Gastro-esophageal reflux disease without esophagitis; G89.4 Chronic pain syndrome; I25.5 Ischemic cardiomyopathy; N28.9 Disorder of kidney and ureter, unspecified; T40.2X5A Adverse effect of other opioids, initial encounter; I95.89 Other hypotension; I25.2 Old myocardial infarction; Z87.891 Personal history of nicotine dependence; Z95.5 Presence of coronary angioplasty implant and graft; Z79.82 Long term (current) use of aspirin; Z79.84 Long term (current) use of oral hypoglycemic drugs; Z79.890 Hormone replacement therapy; Z79.899 Other long term (current) drug therapy
CPT/HCPCS: 36430; 71045; 71046; 76604; 80048; 80053; 82330; 82805; 83605; 83735; 85025; 85027; 85610; 85730; 86850; 86891; 86900; 86901; 86920; 94002; 94640; 94760